=== PATIENT | male | born 1950 | race Caucasian/White ===

== ENCOUNTER 2022-12-15 07:44 | Outpatient (OUT) | payer MEDICARE, SELFPAY ==
[2022-12-15 08:29] LABS: Hematocrit 44.8 % (42.0-54.0); Mean Corpuscular HGB Conc 33.5 g/dL (29.9-35.2); Mean Corpuscular Hemoglobin 30.2 pg (25.9-34.0); Mean Corpuscular Volume 90.1 fL (80.0-94.0); Mean Platelet Volume 9.1 fL (9.5-13.5); Platelet Count 170 10^3/uL (150-450); Red Blood Count 4.97 10^6/uL (4.70-6.10); Red Cell Distribution Width 14.5 % (11.0-15.0); White Blood Count 5.1 10^3/uL (4.0-11.0)
[2022-12-15 09:09] LABS: Alanine Aminotransferase 19 U/L (16-63); Albumin Globulin Ratio 1.5; Albumin Level 3.7 g/dL (3.4-5.0); Alkaline Phosphatase 65 U/L (46-116); Anion Gap 11.7; Aspartate Amino Transferase 12 U/L (15-37); BUN Creatinine Ratio 16.7; Bilirubin Total 0.5 mg/dL (0.2-1.0); Calcium 8.9 mg/dL (8.5-10.1); Carbon Dioxide 26.1 mmol/L (21.0-32.0); Chloride 109 mmol/L (98-107); Estimated GFR (African America >60 (>=60); Estimated GFR (Non-African Ame >60 (>=60); Gamma Glutamyl Transpeptidase 26 U/L (15-85); Globulin 2.4 g/dL; Glucose 101 mg/dL (74-106); Magnesium 1.6 mg/dL (1.8-2.4); Phosphorus 3.4 mg/dL (2.6-4.7); Potassium 3.8 mmol/L (3.5-5.1); Sodium 143 mmol/L (136-145); Total Protein 6.1 g/dL (6.4-8.2)
[2022-12-15 10:20] LABS: Eosinophils Absolute Manual 0.25 10^3/uL (0.00-0.70); Lymphocytes Absolute Manual 0.56 10^3/uL (1.20-3.80); Monocytes Absolute Manual 0.35 10^3/uL (0.30-0.80); Segmented Neut Absolute Manual 3.92 10^3/uL (1.4-6.5)
[2022-12-15 17:48] LABS: BOX Test Sent Out Y
== END 2022-12-15 07:45 | disposition home or self-care (01) ==
PROVIDERS: PCP Family Medicine
DX: Z94.4 Liver transplant status (principal); Z79.621 Long term (current) use of calcineurin inhibitor; K76.9 Liver disease, unspecified; Z48.23 Encounter for aftercare following liver transplant; Z41.8 Encounter for other procedures for purposes other than remedying health state; E61.2 Magnesium deficiency; E83.30 Disorder of phosphorus metabolism, unspecified; R73.02 Impaired glucose tolerance (oral); Z51.81 Encounter for therapeutic drug level monitoring
CPT/HCPCS: 36415; 80053; 82977; 83735; 84100; 85007; 85025

== ENCOUNTER 2023-02-18 07:03 | Outpatient (OUT) | payer MEDICARE, SELFPAY ==
[2023-02-18 08:54] LABS: Prostate Specific Antigen Dx 30.56 ng/mL (<=4.00)
== END 2023-02-18 07:04 | disposition home or self-care (01) ==
LOC: LAB 07:05
PROVIDERS: PCP Family Medicine; Visit Provider Urology
DX: R97.20 Elevated prostate specific antigen [PSA] (principal); D07.5 Carcinoma in situ of prostate
CPT/HCPCS: 36415; 84153

== ENCOUNTER 2023-02-18 07:07 | Outpatient (OUT) | payer MEDICARE, SELFPAY ==
[2023-02-18 07:52] LABS: Basophils Absolute Auto 0.1 10^3/uL (0.0-0.1); Eosinophils Absolute Auto 0.2 10^3/uL (0.0-0.7); Eosinophils Percent Auto 4.4 % (0.9-7.0); Hematocrit 44.8 % (42.0-54.0); Hemoglobin 14.9 g/dL (14.0-18.0); Immature Granulocytes Abs Auto 0.01 10^3/uL (0.00-0.03); Immature Granulocytes Pct Auto 0.2 % (0.0-0.5); Lymphocytes Absolute Auto 0.7 10^3/uL (1.2-3.8); Lymphocytes Percent Auto 13.1 % (20.5-60.0); Mean Corpuscular HGB Conc 33.3 g/dL (29.9-35.2); Mean Corpuscular Hemoglobin 29.8 pg (25.9-34.0); Mean Corpuscular Volume 89.6 fL (80.0-94.0); Mean Platelet Volume 9.5 fL (9.5-13.5); Monocytes Absolute Auto 0.3 10^3/uL (0.3-0.8); Monocytes Percent Auto 6.7 % (1.7-12.0); Neutrophils Absolute Auto 3.7 10^3/uL (1.4-6.5); Neutrophils Percent Auto 74.6 % (43.0-75.0); Platelet Count 178 10^3/uL (150-450)
[2023-02-18 08:44] LABS: Alanine Aminotransferase 22 U/L (16-63); Albumin Globulin Ratio 1.5; Albumin Level 3.8 g/dL (3.4-5.0); Alkaline Phosphatase 65 U/L (46-116); Anion Gap 9.7; Aspartate Amino Transferase 14 U/L (15-37); BUN Creatinine Ratio 20.3; Bilirubin Total 0.6 mg/dL (0.2-1.0); Carbon Dioxide 27.2 mmol/L (21.0-32.0); Chloride 107 mmol/L (98-107); Chol HDL Ratio 3.7; Cholesterol 178 mg/dL (<=200); Estimated GFR (African America >60 (>=60); Estimated GFR (Non-African Ame >60 (>=60); Gamma Glutamyl Transpeptidase 28 U/L (15-85); Globulin 2.6 g/dL; Glucose 93 mg/dL (74-106); HDL Cholesterol 48 mg/dL (40-60); LDL Cholesterol Calculated 119.6 mg/dL; Magnesium 1.7 mg/dL (1.8-2.4); Phosphorus 3.4 mg/dL (2.6-4.7); Potassium 3.9 mmol/L (3.5-5.1); Sodium 140 mmol/L (136-145); Total Protein 6.4 g/dL (6.4-8.2); Triglycerides 52 mg/dL (<=150); VLDL CHOLESTEROL 10.4 mg/dL
== END 2023-02-18 07:08 | disposition home or self-care (01) ==
LOC: LAB 07:09
PROVIDERS: PCP Family Medicine
DX: R97.20 Elevated prostate specific antigen [PSA] (principal); D07.5 Carcinoma in situ of prostate; K76.9 Liver disease, unspecified; Z48.23 Encounter for aftercare following liver transplant; Z94.4 Liver transplant status; Z41.8 Encounter for other procedures for purposes other than remedying health state; E61.2 Magnesium deficiency; E83.30 Disorder of phosphorus metabolism, unspecified
CPT/HCPCS: 36415; 80053; 80061; 82977; 83735; 84100; 84153; 85025

== ENCOUNTER 2023-04-20 08:11 | Outpatient (OUT) | payer MEDICARE, SELFPAY ==
[2023-04-20 08:51] LABS: Basophils Absolute Auto 0.1 10^3/uL (0.0-0.1); Basophils Percent Auto 1.3 % (0.2-2.0); Eosinophils Absolute Auto 0.4 10^3/uL (0.0-0.7); Eosinophils Percent Auto 5.8 % (0.9-7.0); Hematocrit 45.7 % (42.0-54.0); Hemoglobin 15.2 g/dL (14.0-18.0); Immature Granulocytes Abs Auto 0.02 10^3/uL (0.00-0.03); Immature Granulocytes Pct Auto 0.3 % (0.0-0.5); Lymphocytes Absolute Auto 0.6 10^3/uL (1.2-3.8); Lymphocytes Percent Auto 10.2 % (20.5-60.0); Mean Corpuscular HGB Conc 33.3 g/dL (29.9-35.2); Mean Corpuscular Hemoglobin 30.2 pg (25.9-34.0); Mean Corpuscular Volume 90.9 fL (80.0-94.0); Mean Platelet Volume 9.4 fL (9.5-13.5); Monocytes Absolute Auto 0.4 10^3/uL (0.3-0.8); Monocytes Percent Auto 5.8 % (1.7-12.0); Neutrophils Absolute Auto 4.7 10^3/uL (1.4-6.5); Neutrophils Percent Auto 76.6 % (43.0-75.0); Platelet Count 172 10^3/uL (150-450); Red Blood Count 5.03 10^6/uL (4.70-6.10); White Blood Count 6.2 10^3/uL (4.0-11.0)
[2023-04-20 09:44] LABS: Alanine Aminotransferase 20 U/L (16-63); Albumin Globulin Ratio 1.5; Albumin Level 3.7 g/dL (3.4-5.0); Alkaline Phosphatase 71 U/L (46-116); Aspartate Amino Transferase 11 U/L (15-37); BUN Creatinine Ratio 23.1; Bilirubin Total 0.5 mg/dL (0.2-1.0); Calcium 8.8 mg/dL (8.5-10.1); Carbon Dioxide 28.3 mmol/L (21.0-32.0); Chloride 109 mmol/L (98-107); Estimated GFR (African America >60 (>=60); Estimated GFR (Non-African Ame >60 (>=60); Globulin 2.4 g/dL; Glucose 93 mg/dL (74-106); Phosphorus 3.7 mg/dL (2.6-4.7); Potassium 4.3 mmol/L (3.5-5.1); Sodium 144 mmol/L (136-145); Total Protein 6.1 g/dL (6.4-8.2)
== END 2023-04-20 08:12 | disposition home or self-care (01) ==
LOC: LAB 08:17
PROVIDERS: PCP Family Medicine
DX: K76.9 Liver disease, unspecified (principal); Z48.23 Encounter for aftercare following liver transplant; Z94.4 Liver transplant status; Z41.8 Encounter for other procedures for purposes other than remedying health state; E83.30 Disorder of phosphorus metabolism, unspecified; R73.02 Impaired glucose tolerance (oral)
CPT/HCPCS: 36415; 80053; 84100; 85025

== ENCOUNTER 2023-06-16 07:55 | Outpatient (OUT) | payer MEDICARE, SELFPAY ==
--- OUTSIDE RECORDS SUMMARY | 2023-06-16 08:06 | XMS_ITS | CCD ---
Author Name Unknown Address [address] [place] [address] Organization [facility] Care Team Providers Care Director Of Personnel Name Role Phone SHEA BRANNON Unavailable Unavailable BUNTINGELVIRA Unavailable Unavailable Unavailable Unavailable Ruddyting Elvira VASQUEZ Primary Care Provider Yulisa Lewis RN Unavailable Unavailable BUNTINGLLOYDELVIRA R Primary Care Physician BuntingLloydElvira R Unavailable Bunting, DO Felix Primary Care Provider [phone] MD Shea Brannon Attending Provider Bunting Elvira VASQUEZ Primary Care Provider Yulisa Lewis RN Unavailable Unavailable Bunting, DO Elvira Primary Care Provider MD Sugey Arteaga Attending Provider MISC, DOCTOR Consulting Unavailable BUNTING, DR FELIX Primary Care Unavailable MISC, DOCTOR Admitting Unavailable MISC, DOCTOR Attending Unavailable BUNTING, DR FELIX Referring Unavailable MISC, DOCTOR Admitting Unavailable MISC, DOCTOR Consulting Unavailable MISC, DOCTOR Attending Unavailable BUNTING, DR FELIX Primary Care Unavailable BUNTING, DR FELIX Primary Care Unavailable MISC, DOCTOR Admitting Unavailable MISC, DOCTOR Consulting Unavailable MISC, DOCTOR Attending Unavailable BUNTING, DR FELIX Primary Care Unavailable MISC, DOCTOR Consulting Unavailable MISC, DOCTOR Admitting Unavailable MISC, DOCTOR Attending Unavailable MISC, DOCTOR Consulting Unavailable MISC, DOCTOR Admitting Unavailable MISC, DOCTOR Attending Unavailable BUNTING, DR FELIX Primary Care Unavailable LONG June, DR MIKE Cox Consulting Unavaila ble ALVES JR ., DR MIKE Cox Attending Unavaila ble ALVES JR ., DR MIKE Cox Admitting Unavaila ble BUNTING, DR FELIX Primary Care Unavailable BUNTING, DR FELIX Primary Care Unavailable MISC, DOCTOR Consulting Unavailable MISC, DOCTOR Attending Unavailable MISC, DOCTOR Admitting Unavailable BUNTING, DR FELIX Primary Care Unavailable MISC, DOCTOR Attending Unavailable MISC, DOCTOR Admitting Unavailable MISC, DOCTOR Consulting Unavailable BUNTING, DR FELIX Primary Care Unavailable MISC, DOCTOR Consulting Unavailable MISC, DOCTOR Attending Unavailable MISC, DOCTOR Admitting Unavailable MISC, DOCTOR Admitting Unavailable MISC, DOCTOR Consulting Unavailable MISC, DOCTOR Attending Unavailable BUNTING, DR FELIX Primary Care Unavailable BUNTING, DR FELIX Primary Care Unavailable LONG FARLEY ., DR MIKE Cox Admitting Unavaila ble ALVES JR ., DR MIKE Cox Consulting Unavaila ble ALVES JR ., DR MIKE Cox Attending Unavaila ble BUNTING, DR FELIX Primary Care Unavailable MISC, DOCTOR Consulting Unavailable MISC, DOCTOR Attending Unavailable MISC, DOCTOR Admitting Unavailable BUNTING, DR FELIX Primary Care Unavailable YVONNE, VINICIUS Consulting Unavailable YVONNE, VINICIUS Attending Unavailable YVONNE, VINICIUS Admitting Unavailable BUNTING, DR FELIX Primary Care Unavailable LONG JR ., DR MIKE Cox Admitting Unavaila ble ALVES JR ., DR MIKE Cox Attending Unavaila ble WEST, DR SUSAN Ford Consulting Unavailable ALVES JR ., DR MIKE Cox Consulting Unavaila ble AGUBOSIM, COSME Consulting Unavailable PREETI, KYMBERLY Consulting Unavailable BUNTING, DR FELIX Primary Care Unavailable PAY ., DR GUPTA Consulting Unavailable PAY ., DR GUPTA Attending Unavailable PAY ., DR GUPTA Admitting Unavailable BUNTING, DR FELIX Primary Care Unavailable ALVES JR ., DR MIKE Cox Admitting Unavaila ble ALVES JR ., DR MIKE Cox Consulting Unavaila ble ALVES JR ., DR MIKE Cox Attending Unavaila ble BUNTING, DR FELIX Primary Care Unavailable MISC, DOCTOR Consulting Unavailable MISC, DOCTOR Attending Unavailable MISC, DOCTOR Admitting Unavailable MD Branden Woodward Attending Provider MD Sheila Magallanes Attending Provider Sheila Magallanes Unavailable Bunmaggie, Dr. Elvira Maurer Primary Care Unavaila ble Bunting, Dr. Elvira Maurer Primary Care Unavaila ble Bunting, Dr. Elvira Maurer Primary Care Unavaila ble Traboulssi, Dr. Marvin Referring Unavaila ble Traboulssi, Dr. Marvin Attending Unavaila ble Bunting, Dr. Elvira Maurer Primary Care Unavaila ble Bunting, Dr. Elvira Maurer Primary Care Unavaila ble Bunting, DO Elvira Primary Care Provider MD Sugey Arteaga Attending Provider Bunting DO, Elvira Maurer Primary Care Provider [phone] SHEA BRANNON Attending Unavailable BUNTING, ELVIRA RAY Primary Care Unavailable Bunting, DO Elvira Primary Care Provider MD Branden Woodward Attending Provider Bunting, Elvira Primary Care Unavailable Asaad, Imad Admitting Unavailable Asaad, Imad Attending Unavailable Bunting, [facility] Primary Care Unavailable Branden Woodward Admitting Unavail able Branden Woodward Attending Unavail able Bunting, [facility] Primary Care Unavailable Lue, Sugey M Admitting Unavailable Lue, Sugey M Attending Unavailable Bunting, Elvira Primary Care Unavailable Branden Woodward Admitting Unavail able Branden Woodward Attending Unavail able Asaad, Imad Attending Unavailable Bunting, Elvira Primary Care Unavailable Asaad, Imad Admitting Unavailable Lue, Sugey M Admitting Unavailable Bunting, Elvira Primary Care Unavailable Lue, Sugey M Attending Unavailable Bunting, Elvira Primary Care Unavailable Asaad, Imad Admitting Unavailable Asaad, Imad Attending Unavailable Lue, Sugey M. Attending Unavailable Lue, Sugey M. Attending Unavailable Lue, Sugey M. Attending Unavailable Lue, Sugey M. Referring Unavailable Lue, Sugey M. Attending Unavailable Lue, Sugey M. Attending Unavailable Lue, Sugey M. Attending Unavailable Lue, Sugey M. Admitting Unavailable Lue, Sugey M. Referring Unavailable Kevin DE LA GARZA Attending Unavailable Allergies Allergy Classification Reported Allergen(s) Allergy Type Date of Onset Reaction(s) Facility (1 source) No Known Medication Allergies; Translations: [No Known Medication Allergies] Propensity to adverse reactions (disorder) [facility] Repository Medications Current Medications Medication Drug Class(es) Dates Sig (Normalized) Sig (Original) amylase 636610 unt / lipase 85469 unt / protease 84323 unt delayed release oral capsule (3 sources) Start: 11-12-2022 Creon [id number] UNIT as directed Orally 5 TIMES DAILY (ALLOW FOR 3 MEALS AND 2 SNACKS. for 30 days October, Active ascorbic acid 1000 mg oral tablet (6 sources) Vitamin C Start: 12-11-2022 take 1 g by mouth once daily Ascorbic Acid (Vitamin C) (Vitamin C) 1,000 mg Tablet Active 1 GM PO Daily December 10, 2022 11:00pm aspirin 81 mg delayed release oral tablet (12 sources) Platelet Aggregation Inhibitor, Nonsteroidal Anti-inflammatory Drug Start: 01-07-2022 take 81 mg by mouth once daily Aspirin Active 81 MG PO Daily December 10, 2022 11:00pm Start: 05-24-2020 aspirin 81 mg oral tablet Refills(s) 0 Start Date: 05/24/20 Status: Ordered take 1 tablet by elsy th once daily Baby Aspirin 81 MG 1 tablet Orally Once a day Active Black Elderberry (3 sources) Start: 12-11-2022 take 2000 mg by mout h once daily Black Elderberry Active 2000 MG PO Daily December 10, 2022 11:00pm Start: 12-11-2022 take 2000 mg by mout h once daily Black Elderberry Active 2000 MG PO Daily December 11, 2022 12:00am Black Elderberry Active cholecalciferol 0.025 mg chewable tablet (6 sources) Vitamin D Start: 12-11-2022 take 1 tablet by mouth once daily Cholecalciferol (Vitamin D3) (Vitamin D3) 25 mcg (1,000 unit) Tablet,Chewable Active 25 MCG PO Daily December 10, 2022 11:00pm take 1 capsule by mouth once norman ly cholecalciferol (Vitamin D-3) 125 MCG (5000 UT) capsule Take 1 capsule (5,000 Units) by mouth once daily. 0 Active elderberry fruit and flower 460-115 mg capsule (1 source) take 1 capsule by mouth once daily elderberry fruit and flower 460-115 mg capsule Take 2,000 mg by mouth once daily. 0 Active Elderberry preparation (1 source) Start: 12-13-202 3 take 1 mg by mouth once daily elderberry mg, Oral, Daily, Refill(s) 0 Start Date: 05/27/23 Status: Ordered finasteride 5 mg oral tablet (2 sources) 5-alpha Reductase Inhibitor Start: 3 take 1 tablet by mouth once daily finasteride 5 mg Tab 5 mg = 1 tab(s), Oral, Daily, # 30 tab(s), Refills(s) 11, Pharmacy: [facility]/pharmacy #[id number], 178, cm, 05/27/23 9:52:00 EST, Height/Length Dosing, 80, kg, 05/27/23 9:52:00 EST, Weight Dosing Start Date: 05/27/23 Status: Ordered Start: 02-25-2023 take 1 tablet by elsy th once daily finasteride 5 mg Tab 5 mg = 1 tab(s), Oral, Daily, # 30 tab(s), Refills(s) 11, Pharmacy: [facility]/pharmacy #[id number], 178, cm, 02/25/23 9:11:00 EDT, Height/Length Dosing, 80, kg, 02/25/23 9:11:00 EDT, Weight Dosing Start Date: 02/25/23 Status: Ordered metoprolol tartrate 25 mg oral tablet (20 sources) beta-Adrenergic Sebas Start: 03-24-2017 End: 04-13-2018 take 25 mg by mouth once daily Metoprolol Tartrate Discontinued 25 MG PO Daily March 23, 2017 11:00pm April 13, 2018 3:18pm Start: 02-07-2015 End: 05-10-2019 take 25 mg by mouth twice daily Metoprolol Tartrate Ac tive 25 MG PO Twice daily December 10, 2022 11:00pm take 1 tablet by elsy th twice daily Metoprolol Succinate ER 25 MG 1 tablet Orally TWICE A D AY Active Comment on above: Take 1 tablet by elsy th twice daily. [facility] Prescription (7 sources) Start: 9 [facility] Prescription Septra 1 tablet by mouth MWF Start Date: 04/19/19 Status: Ordered omeprazole 40 mg delayed release oral capsule (3 sources) Proton Pump Inhibitor Start: 3 take 40 mg by mouth once daily Omeprazole Active 40 MG PO Daily 90 December 10, 2022 11:00pm Oxybutinin XL 5mg (4 sources) Oxybutinin XL 5m g Active oxybutynin chloride 5 mg oral tablet (12 sources) Cholinergic Muscarinic Antagonist Start: 3 take 1 tablet by mouth at bedtime oxybutynin 5 mg Tab 5 mg = 1 tab(s), Oral, Bedtime, # 30 tab(s), Refills(s) 11, Pharmacy: [facility]/pharmacy #[id number], 178, cm, 02/25/23 9:11:00 EDT, Height/Length Dosing, 80, kg, 02/25/23 9:11:00 EDT, Weight Dosing Start Date: 02/25/23 Status: Ordered Start: 02-26-2022 take 1 tablet by elsy th at bedtime oxybutynin 5 mg Tab 5 mg = 1 tab(s), Oral, Bedtime, # 30 tab(s), Refills(s) 11, Pharmacy: [facility]/pharmacy #[id number], 185, cm, 02/26/22 15:00:00 EDT, Height/Length Dosing, 99, kg, 02/26/22 15:00:00 EDT, Weight Dosing Start Date: 02/26/22 Status: Ordered take 1 tablet by elsy th once daily at bedtime oxybutynin XL (Ditropan-XL) 5 mg 24 hr tablet Take 1 tablet (5 mg) by mouth once daily at bedtime. 0 Active take 1 tablet by elsy th at bedtime Oxybutynin Chloride ER 5 MG Oral Tablet Extended Release 24 Hour TAKE 1 TABLET Bedtime Quantity: 0 Refills: 0 Ordered: 27-Mar-2022 DO Active Sulfamethoxazole-TMP DS (4 sources) Sulfamethoxazole -TMP DS Active tacrolimus 1 mg oral capsule (20 sources) Calcineurin Inhibitor Immunosuppressant Start : 03-24 End: 11-08 take 1 mg by mouth twice daily tacrolimus 1 mg, Oral, BID, Refills(s) 0 Start Date: 04/18/19 Status: Ordered Start: 03-24-2017 End: 04-13-2018 Tacrolimus Discontinued 2017 11:00pm April 13, 2018 7:46pm Comment on above: Take 2 capsules by out twice daily. (Z94.4 - liver transplant) TAKE 2 CAPSUES BY [facility] TWICE DAILY tadalafil 5 mg oral tablet (2 sources) Phosphodiesterase 5 Inhibitor Start: 09-11-19 take 1 tablet by mouth once daily tadalafil 5 mg oral tablet 5 mg = 1 tab(s), Oral, Daily, # 30 tab(s), Refills(s) 11, Pharmacy: [facility]/pharmacy #[id number], 185, cm, 09/10/22 9:37:00 EDT, Height/Length Dosing, 99, kg, 09/10/22 9:37:00 EDT, Weight Dosing Start Date: 09/10/22 Status: Ordered tamsulosin hydrochloride 0.4 mg oral capsule (1 source) alpha-Adrenergic Sebas take 1 capsule by mouth twice daily tamsulosin (Flomax) 0.4 mg 24 hr capsule Take 1 capsule (0.4 mg) by mouth 2 times a day. 0 Active terazosin 5 mg oral capsule (10 sources) alpha-Adrenergic Sebas Start: 06-21-19 terazosin 5 mg Cap Refills(s) 0 Start Date: 02/25/23 Status: Ordered Terazosin HCl Ac tive Vitamin D3 (1 source) Start: 05-27-2023 Vitamin D3 Ref ills(s) 0 Start Date: 05/27/23 Status: Ordered Vitamin D3 25 MCG (1000 UT) (1 source) take 1 capsule by mouth once daily Vitamin D3 25 MCG (1000 UT) 1 capsule Orally Once a day Active Zenpep 85505 UNIT (1 source) Start: 01-01-2023 Zenpep 98291 U NIT 1 WITH EACH MEAL & 1 WITH UP TO 2 SNACKS Orally 5 TIMES A DAY for 30 days Dec, Active Zinc (3 sources) Start: 05-27-2023 take 1 mg by mouth once daily Zinc mg, Oral, Daily, Refills(s) 0 Start Date: 05/27/23 Status: Ordered Start: 12-11-2022 take 50 mg by mouth once daily Zinc Active 50 MG PO Daily December 10, 2022 11:00pm Start: 12-11-2022 take 50 mg by mouth once daily Zinc Active 50 MG PO Daily December 11, 2022 12:00am zinc gluconate 50 mg oral tablet (5 sources) take 1 tablet by elsy th once daily zinc gluconate 50 mg tablet Take 1 tablet (50 mg) by mouth once daily. 0 Active Completed/Discontinued Medications Medication Drug Class(es) Dates Sig (Normalized) Sig (Original) acetaminophen 325 mg oral tablet (5 sources) Start: 04-15-2018 End: 12-11-2022 take 650 mg by mouth every six hours Acetaminophen Discontinued 650 MG PO Q6H 30 April 14, 2018 11:00pm December 11, 2022 10:33am amLODIPine 5 mg oral tablet (20 sources) Dihydropyridine Calcium Channel Sebas Start: 02-18-2017 End: 12-11-2022 Amlodipine Discontinued TABLET April 12, 2018 11:00pm April 13, 2018 7:46pm Comment on above: Take 1 tablet by elsy th once daily. Black Elderberry(Garcia-Flow er) CAPS (3 sources) Black Elderberry(Garcia- Flower) CAPS 2000 mg daily Quantity: 0 Refills: 0 Ordered: 27-Mar-2022 DO Active polyethylene glycol 3350 [id number] mg / potassium chloride 2970 mg / sodium bicarbonate 6740 mg / sodium chloride 5860 mg / sodium sulfate 05127 mg powder for oral solution (4 sources) Osmotic Laxative Start: 11-05-2022 take 236 g by mouth once Golytely 236 GM as directed Orally once for 1 days October, Not-Taking sulfamethoxazole 800 mg / trimethoprim 160 mg oral tablet (13 sources) Dihydrofolate Reductase Inhibitor Antibacterial, Sulfonamide Antimicrobial Start: 09-10-2020 End: 09-04-2022 take 1 tablet by mouth once daily sulfamethoxazole- trimethoprim (BACTRIM DS) 800-160 mg per tablet Indications: Liver replaced by transplant (HCC) TAKE ONE TABLET BY MOUTH DAILY ON MONDAYS, WEDNESDAYS AND FRIDAYS 39 tablet 3 09/04/2022 Active Start: 04-13-2018 take 1 tablet by elsy th once Sulfamethoxazole-Trimethoprim Active 1 T AB PO every Thursday, Thursday, and Thursday April 12, 2018 11:00pm Comment on above: TAKE ONE TABLET BY M OUTH DAILY ON MONDAYS, WEDNESDAYS AND FRIDAYS Sulfamethoxazole- TMP DS TABS (3 sources) Sulfamethoxazole -TMP DS TABS TAKE 1 TABLET DAILY ON THURSDAY, THURSDAY, AND THURSDAY. Quantity: 0 Refills: 0 Ordered: 27-Mar-2022 DO Active Trimethoprim-Sulf amethoxazole (5 sources) Start: 03-24-2017 End: 04-13-2018 take 1 tablet by mouth three times weekly Trimethoprim-Sulfameth oxazole Discontinued 1 TAB PO 3 Times a week March 24, 2017 12:00am April 13, 2018 8:46pm Start: 03-24-2017 End: 04-13-2018 take 1 tablet by mouth three times weekly Trimethoprim-Sulfamethoxazole Discontinu ed 1 TAB PO 3 Times a week March 23, 2017 11:00pm April 13, 2018 7:46pm Problems Active Problems Problem Classification Problem Date Documented Da te Episodic/Chronic Biliary tract disease (5 sources) Leakage of bile; Translations: [Disease of biliary tract, unspecified] Onset: 02-07-2015 06-10-2021 Chronic Cancer of prostate (9 sources) Carcinoma in situ of prostate; Translations: [Carcinoma in situ of prostate] Onset: 12-24-2021 Chronic Cardiac arrest and ventricular fibrillation (5 sources) EKG: asystole; Translations: [Cardiac arrest, cause unspecified] 04-14-2018 Chronic Cardiac dysrhythmias (14 sources) Sick sinus syndrome; Translations: [Sinoatrial node dysfunction] Onset: 04-09-2023 04-14-2018 Chronic Conduction disorders (10 sources) Cardiac pacemaker in situ; Translations: [Cardiac pacemaker in situ] Onset: 01-27-2022 04-10-2023 Chronic Coronary atherosclerosis and other heart disease (1 source) Coronary atherosclerosis and other heart disease Onset: 03-26-2017 Diabetes mellitus without complication (1 source) Impaired glucose tolerance (oral); Translations: [IMPAIRED GLUCOSE TOLERANCE ORAL] Onset: 10-23-2022 Episodic Disorders of lipid metabolism (17 sources) Hyperlipidemia; Translations: [Other and unspecified hyperlipidemia] Onset: 01-27-2022 12-21-2018 Chronic Essential hypertension (16 sources) Essential (primary) hypertension; Translations: [Essential hypertension] Onset: 03-26-2017 04-14-2018 Chronic Essential hypertension (2 sources) Essential hypertension Onset: 03-26-2017 Genitourinary symptoms and ill-defined conditions (20 sources) Microscopic hematuria; Translations: [Nocturia] Onset: 01-27-2022 12-21-2018 Episodic Hepatitis (11 sources) Viral hepatitis C; Translations: [Unspecified viral hepatitis C without hepatic coma] 12-21-2018 Episodic Hyperplasia of prostate (15 sources) Benign prostatic hypertrophy with outflow obstruction; Translations: [Benign prostatic hyperplasia with lower urinary tract symptoms] Onset: 12-24-2021 Chronic Nutritional deficiencies (1 source) Magnesium deficiency; Translations: [MAGNESIUM DEFICIENCY] Onset: 10-23-2022 Episodic Osteoporosis (5 sources) Primary osteoporosis; Translations: [Age-related osteoporosis without current pathological fracture] Onset: 01-15-2023 Chronic Other aftercare (1 source) Encounter for aftercare following liver transplant; Translations: [ENC AFTERCARE FLW LIVER TRANSPLANT] Onset: 10-23-2022 Chronic Other aftercare (7 sources) Long-term current use of anticoagulant 11-24-2019 Episodic Other aftercare (1 source) senior living (current) use of aspirin; Translations: [EXHIBITS COORDINATOR CURRENT USE OF ASPIRIN] Onset: 09-29-2022 Episodic Other aftercare (1 source) Other oil heaterman (current) drug therapy; Translations: [OTH SKILLED NURSING CURRENT DRUG THERAPY] Onset: 09-29-2022 Episodic Other diseases of bladder and urethra (4 sources) Other specified disorders of bladder; Translations: [OTHER SPECIFIED DISORDERS BLADDER] Onset: 09-26-2022 Chronic Other diseases of kidney and ureters (2 sources) Urinary tract obstruction; Translations: [Other obstructive and reflux uropathy] Onset: 12-24-2021 Episodic Other diseases of veins and lymphatics (5 sources) Peripheral venous insufficiency; Translations: [Venous insufficiency (chronic) (peripheral)] 04-14-2018 Episodic Other endocrine disorders (7 sources) Male hypogonadism 12-21-2018 Chronic Other gastrointestinal disorders (4 sources) Dysphagia; Translations: [Other dysphagia] Episodic Other gastrointestinal disorders (4 sources) Altered bowel function; Translations: [Change in bowel habit] Episodic Other gastrointestinal disorders (1 source) Other dysphagia Episodic Other liver diseases (5 sources) Liver disease, unspecified; Translations: [LIVER DISEASE UNSPECIFIED] Onset: 08-22-2022 Chronic Other liver diseases (7 sources) Liver transplant status; Translations: [LIVER TRANSPLANT STATUS] Onset: 10-23-2022 Chronic Other male genital disorders (9 sources) Male erectile dysfunction, unspecified; Translations: [Erectile dysfunction] Onset: 09-10-2022 Chronic Other male genital disorders (7 sources) Prostatic pain 11-24-2019 Episodic Other nutritional; endocrine; and metabolic disorders (8 sources) Body mass index 30+ - obesity; Translations: [Body Mass Index 31.0-31.9, adult] Chronic Other nutritional; endocrine; and metabolic disorders (1 source) Disorder of phosphorus metabolism, unspecified; Translations: [DISORDER PHOSPHORUS METABOLISM UNS] Onset: 10-23-2022 Chronic Other nutritional; endocrine; and metabolic disorders (7 sources) Overweight in adulthood with body mass index of 25 or more but less than 30; Translations: [Body Mass Index 29.0-29.9, adult] Onset: 04-09-2023 04-10-2023 Episodic Other nutritional; endocrine; and metabolic disorders (3 sources) Overweight; Translations: [Overweight] Onset: 04-10-2023 Episodic Other nutritional; endocrine; and metabolic disorders (4 sources) Weight loss; Translations: [Abnormal weight loss] Episodic Other nutritional; endocrine; and metabolic disorders (1 source) Overweight; Translations: [Overweight] Onset: 04-09-2023 Episodic Other nutritional; endocrine; and metabolic disorders (2 sources) Body mass index (BMI) 26.0-26.9, adult; Translations: [Body mass index (BMI) 26.0-26.9, adult] Onset: 04-09-2023 Episodic Other screening for suspected conditions (not mental disorders or infectious disease) (19 sources) Raised prostate specific antigen; Translations: [Elevated prostate specific antigen [PSA]] Onset: 12-24-2021 Episodic Residual codes; unclassified (1 source) Encounter for other procedures for purposes other than remedying health state; Translations: [ENC OTH PROC NOT REMEDY HLTH STATE] Onset: 10-23-2022 Episodic Screening and history of mental health and substance abuse codes (11 sources) Ex-smoker; Translations: [Personal history of tobacco use] Onset: 01-27-2022 06-12-2020 Episodic Comment on above: quit around ; Unclassified (1 source) Shortness of breath / R06.02(ICD-9) Onset: 03-26-2017 Unclassified (1 source) Family hx of ischem heart dis and oth dis of the circ sys / Z82.49(ICD-9) Onset: 03-26-2017 Unclassified (1 source) Personal history of nicotine dependence / Z87.891(ICD-9) Onset: 03-26-2017 Unclassified (1 source) Obesity, unspecified / E66.9(ICD-9) Onset: 03-26-2017 Unclassified (1 source) Unspecified viral hepatitis C without hepatic coma / B19.20(ICD-9) Onset: 03-26-2017 Unclassified (1 source) Liver transplant status / Z94.4(ICD-9) Onset: 03-26-2017 Unclassified (5 sources) SUMMARY Onset: 08-14-2012 Unclassified (5 sources) Finding of sensation of bladder 09-10-2022 Unclassified (1 source) CONTACT W/AND (SUSP) EXPOS COVID-19; Translations: [CONTACT W/AND (SUSP) EXPOS COVID-19] Onset: 01-22-2022 Unclassified (1 source) Encounter for checking and testing of cardiac pacemaker pulse generator [battery]; Translations: [Encounter for checking and testing of cardiac pacemaker pulse generator [battery]] Onset: 05-04-2023 Unclassified (1 source) Diarrhea, unspecified; Translations: [Diarrhea, unspecified] Onset: 12-11-2022 Urinary tract infections (1 source) Urinary tract infection, site not specified; Translations: [UTI SITE NOT SPECIFIED] Onset: 09-29-2022 Episodic Past or Other Problems Problem Classification Problem Date Documented Da te Episodic/Chronic Abdominal hernia (5 sources) Inguinal hernia; Translations: [Unilateral inguinal hernia, without obstruction or gangrene, not specified as recurrent] Onset: 02-02-2008 02-02-2008 Episodic Cancer of liver and intrahepatic bile duct (5 sources) History of hepatocellular carcinoma; Translations: [Personal history of malignant neoplasm of liver] Onset: 02-18-2017 02-18-2017 Episodic Complication of device; implant or graft (5 sources) Biliary stricture; Translations: [Other complications of liver transplant] Onset: 02-07-2015 02-07-2015 Episodic Neoplasms of unspecified nature or uncertain behavior (5 sources) Neoplasm of pancreas; Translations: [Neoplasm of unspecified behavior of digestive system] Onset: 11-10-2012 11-10-2012 Episodic Other aftercare (1 source) senior living (current) use of anticoagulants; Translations: [SKILLED NURSING CURRNT USE ANTICOAGULANTS] Onset: 01-27-2022 Episodic Other and unspecified benign neoplasm (9 sources) History of polyp of colon; Translations: [Personal history of colonic polyps] Onset: 02-18-2017 02-18-2017 Episodic Other gastrointestinal disorders (2 sources) Change in bowel habit; Translations: [Change in bowel habit] Onset: 11-06-2022 Episodic Other gastrointestinal disorders (1 source) Dysphagia, unspecified; Translations: [Dysphagia, unspecified] Onset: 12-11-2022 Episodic Other infections; including parasitic (5 sources) History of hepatitis C; Translations: [Personal history of other infectious and parasitic diseases] Onset: 02-18-2017 02-18-2017 Episodic Residual codes; unclassified (6 sources) Prevention status; Translations: [Encounter for other specified prophylactic measures] Onset: 02-07-2015 02-07-2015 Episodic Syncope (6 sources) Cardiac syncope; Translations: [Syncope and collapse] Onset: 11-11-2022 04-14-2018 Episodic Unclassified (1 source) Onset: 04-10-2023 04-10-2023 Results Test Name Value Interpretation Reference Range Facility Screenson 05-29-2023 Screens [id number] 05 [id number] 0TIFF Normal [facility] Screens [id number] 0TIFF Normal [facility] Ambulatory Visit Summaryon 1 07-28-2022 Ambulatory Visit Summary GEORGESUSAN Kenny :1950 Visit Date:05/27/2023 Ambulatory Visit Instructions Your Diagnosis BPH with urinary obstruction Elevated PSA Feeling of incomplete bladder emptying ED (erectile dysfunction) Other obstructive and reflux uropathy Tests Performed Urnls Dip Stick Auto w/o Microscopy POC 52169 Your Care Team Attending Physician - Chandler CHAVEZ, Sugey Cummins Primary Care Physician - ELVIRA SCHULTZ DO This Is Your Medications List finasteride (finasteride 5 mg Tab) oxybutynin (oxybutynin 5 mg Tab) Contact prescribing physician if questions or concerns Misc Prescription aspirin (aspirin 81 mg oral tablet) cholecalciferol (Vitamin D3) elderberry metoprolol (Metoprolol tartrate 25 mg Tab) tacrolimus terazosin (terazosin 5 mg Cap) zinc sulfate (Zinc) Procedures Performed Cystoscopy (09/22/2022), Transrectal biopsy of prostate using ultrasound (US) guidance (01/22/2022), Transrectal biopsy of prostate using ultrasound (US) guidance (11/09/2019), Transrectal biopsy of prostate using ultrasound (US) guidance (05/19/2018), Appendectomy, Cardiac pacemaker, Colonoscopy, Tonsillectomy, Tx - Liver transplantation. Discharge Vitals Heart Rate (Peripheral) 92 Respiratory Rate 16 Blood Pressure 131/83 Height 178 cm Height 70 in Weight 80 kg Weight 176 lb BMI 25.25 What to do next You Need to Schedule the Following Appointments Follow Up with Chandler CHAVEZ, Sugey Cummins, TAMEKA, URO When: In 9 months Comments: w/PSA F&T Where: Medications What How Much When Instructions Unchanged finasteride (finasteride 5 mg Tab) 1 Tablets By Mouth Every day Unchanged oxybutynin (oxybutynin 5 mg Tab) 1 Tablets By Mouth At bedtime Unchanged aspirin (aspirin 81 mg oral tablet) Contact prescribing physician if questions or concerns Unchanged cholecalciferol (Vitamin D3) Contact prescribing physician if questions or concerns Unchanged elderberry By Mouth Every day Contact prescribing physician if questions or concerns Unchanged metoprolol (Metoprolol tartrate 25 mg Tab) 1 Tablets By Mouth 2 times a day Contact prescribing physician if questions or concerns Unchanged Misc Prescription See instructions Septra 1 tablet by mouth MWF Contact prescribing physician if questions or concerns Unchanged tacrolimus 1 Milligram By Mouth 2 times a day Contact prescribing physician if questions or concerns Unchanged terazosin (terazosin 5 mg Cap) Contact prescribing physician if questions or concerns Unchanged zinc sulfate (Zinc) By Mouth Every day Contact prescribing physician if questions or concerns Test Results Urnls Dip Stick Auto w/o Microscopy POC 41340 (05/27/2023) Bilirubin Urine Dipstick - Negative Blood Urine Dipstick - Negative Glucose Urine Dipstick - Negative Ketones Urine Dipstick - Negative Leukocytes Urine Dipstick - Trace Nitrite Urine Dipstick - Negative Protein Urine Dipstick - Negative Specific [place] Urine Dipstick - 1.025 Urine Appearance Urine Dipstick - Clear Urine Color Urine Dipstick - Yellow Urobilinogen Urine Dipstick - Normal 0.2-1 EU/dl pH Urine Dipstick - 5.5 Allergies No Known Medication Allergies Problems Ongoing - Any problem that you are currently receiving treatment for. Anticoagulant long-term use BPH with urinary obstruction ED (erectile dysfunction) Elevated PSA Feeling of incomplete bladder emptying Former smoker Hepatitis C Hyperlipidemia Male hypogonadism Microscopic hematuria Nocturia PIN III (prostatic intraepithelial neoplasm III) Prostate pain Urinary retention Weak urinary stream Patient Survey You may receive a survey via text or e-mail asking about your office visit. Please share your experience with us by completing your survey. We appreciate your feedback and thank you for choosing us for your care. Education Materials Benign Prostatic Hyperplasia Benign prostatic hyperplasia (BPH) is an enlarged prostate gland that is caused by the normal aging process. The prostate may get bigger as a man gets older. The condition is not caused by cancer. The prostate is a walnut-sized gland that is involved in the production of semen. It is located in front of the rectum and below the bladder. The bladder stores urine. The urethra carries stored urine out of the body. An enlarged prostate can press on the urethra. This can make it harder to pass urine. The buildup of urine in the bladder can cause infection. Back pressure and infection may progress to bladder damage and kidney (renal) failure. What are the causes? This condition is part of the normal aging process. However, not all men develop problems from this condition. If the prostate enlarges away from the urethra, urine flow will not be blocked. If it enlarges toward the urethra and compresses it, there will be problems passing urine. What increases the risk? This condition is more likely to develop in men older than (more content not included)... Normal [facility] Patient Educationon 05-27-20 23 Patient Education Urology Benign Prostatic Hyperplasia Benign prostatic hyperplasia (BPH) is an enlarged prostate gland that is caused by the normal aging process. The prostate may get bigger as a man gets older. The condition is not caused by cancer. The prostate is a walnut-sized gland that is involved in the production of semen. It is located in front of the rectum and below the bladder. The bladder stores urine. The urethra carries stored urine out of the body. An enlarged prostate can press on the urethra. This can make it harder to pass urine. The buildup of urine in the bladder can cause infection. Back pressure and infection may progress to bladder damage and kidney (renal) failure. What are the causes? This condition is part of the normal aging process. However, not all men develop problems from this condition. If the prostate enlarges away from the urethra, urine flow will not be blocked. If it enlarges toward the urethra and compresses it, there will be problems passing urine. What increases the risk? This condition is more likely to develop in men older than 50 years. What are the signs or symptoms? Symptoms of this condition include: ? Getting up often during the night to urinate. ? Needing to urinate frequently during the day. ? Difficulty starting urine flow. ? Decrease in size and strength of your urine stream. ? Leaking (dribbling) after urinating. ? Inability to pass urine. This needs immediate treatment. ? Inability to completely empty your bladder. ? Pain when you pass urine. This is more common if there is also an infection. ? Urinary tract infection (UTI). How is this diagnosed? This condition is diagnosed based on your medical history, a physical exam, and your symptoms. Tests will also be done, such as: ? A post-void bladder scan. This measures any amount of urine that may remain in your bladder after you finish urinating. ? A digital rectal exam. In a rectal exam, your health care provider checks your prostate by putting a lubricated, gloved finger into your rectum to feel the back of your prostate gland. This exam detects the size of your gland and any abnormal lumps or growths. ? An exam of your urine (urinalysis). ? A prostate specific antigen (PSA) screening. This is a blood test used to screen for prostate cancer. ? An ultrasound. This test uses sound waves to electronically produce a picture of your prostate gland. Your health care provider may refer you to a specialist in kidney and prostate diseases (urologist). How is this treated? Once symptoms begin, your health care provider will monitor your condition (active surveillance or watchful waiting). Treatment for this condition will depend on the severity of your condition. Treatment may include: ? Observation and yearly exams. This may be the only treatment needed if your condition and symptoms are mild. ? Medicines to relieve your symptoms, including: ? Medicines to shrink the prostate. ? Medicines to relax the muscle of the prostate. ? Surgery in severe cases. Surgery may include: ? Prostatectomy. In this procedure, the prostate tissue is removed completely through an open incision or with a laparoscope or robotics. ? Transurethral resection of the prostate (TURP). In this procedure, a tool is inserted through the opening at the tip of the penis (urethra). It is used to cut away tissue of the inner core of the prostate. The pieces are removed through the same opening of the penis. This removes the blockage. ? Transurethral incision (TUIP). In this procedure, small cuts are made in the prostate. This lessens the prostate's pressure on the urethra. ? Transurethral microwave thermotherapy (TUMT). This procedure uses microwaves to create heat. The heat destroys and removes a small amount of prostate tissue. ? Transurethral needle ablation (TUNA). This procedure uses radio frequencies to destroy and remove a small amount of prostate tissue. ? Interstitial laser coagulation (ILC). This procedure uses a laser to destroy and remove a small amount of prostate tissue. ? Transurethral electrovaporization (TUVP). This procedure uses electrodes to destroy and remove a small amount of prostate tissue. ? Prostatic urethral lift. This procedure inserts an implant to push the lobes of the prostate away from the urethra. Follow these instructions at home: ? Take xpqk-wee-ploajgy and prescription medicines only as told by your health care provider. ? Monitor your symptoms for any changes. Contact your health care provider with any changes. ? Avoid drinking large amounts of liquid before going to bed or out in public. ? Avoid or reduce how much caffeine or alcohol you drink. ? Give yourself time when you urinate. ? Keep all follow-up visits. This is important. Contact a health care provider if: ? You have unexplained back pain. ? Your symptoms do not get better with treatment. ? You develop side effects from the medicine (more content not included)... Normal [facility] Urology Office/Clinic Noteon 05-27-2023 Urology Office/Clinic Note Chief Complaint 3m to starting medication HPI Staff 3m to starting Finasteride 5mg therapy. DX: BPH, Elevated PSA, Feeling of Incomplete Bladder emptying & ED *Oxybutynin 5mg and terazosin 5mg at bedtime therapy. Last PSA 02/18/23- 30.56 (per last encounter from 02/25/23, pt will need 1yr PSA F/T) Pt states he took Finasteride for 1m. Did not think it was doing any good, began getting dizzy when he would stand up, so he stopped taking. Urgency & Frequency are biggest urinary complaints. Day and night. No changes since last encounter. 1-3x/night to void. History of Present Illness Tests reviewed: reviewed UA I have reviewed the previous health record information and history for this patient from . I have reviewed and verified the staff HPI to be accurate for this encounter. There have been no associated fever, chills, flank pain, or blood in the urine. Denies any urinary infections since last encounter. Review of Systems PHQ Score Initial Depression Screen Score: 0 SCORE ROS - Provider Constitutional: denies weight loss, denies hot flashes. Eyes: denies eye problems. Gastrointestinal: denies nausea, denies vomiting. Cardiovascular: denies chest pain or angina. Integumentary: no dryness Musculoskeletal: denies musculoskeletal symptoms. ENMT: denies otolaryngeal symptoms. Respiratory: no shortness of breath. Heme/Lymph: denies easy bleeding tendency, denies easy bruising tendency. Psychiatric: no confusion, no anxiety. Genitourinary: See HPI. Physical Exam Vitals & Measurements HR: 92(Peripheral) RR: 16 BP: 131/83 HT: 70 in HT: 178 cm WT: 80 kg WT: 176 lb BMI: 25.25 General Appearance: alert, no distress, well nourished, well developed male. Assessment/Plan 73 [address] healthy male prior Dr. Alves pt with chronically elevated PSA and neg biopsies x 4 here for follow up 1. BPH with urinary obstruction (N40.1: Benign prostatic hyperplasia with lower urinary tract symptoms) Cysto 09/22/2022 showed moderate to severe trilobar hypertrophy with global intravesical protrusion including median lobe without sulcus 2 cm. Moderate bilobar, severe near bladder neck. R>L MRI Prostate volume 11/11/22 - 149 ml Pt never started Cialis 5mg. Previously failed Flomax due to lightheadedness. Oxybutynin 5mg and Terazosin 5mg at bedtime IPSS 19 (14) - improvement after restarting Terazosin UA today is negative for blood and infection. Pt states he took Finasteride for 1m in AM. Did not think it was doing any good, began getting dizzy when he would stand up, so he stopped taking. Urgency & Frequency are biggest urinary complaints. Day and night. No changes since last encounter. 1-3x/night to void. Again discussed outlet procedures including HOLEP, Aquablation, staged TURP, robotic simple prostatectomy. Risks/benefits again discussed. Pt would like to avoid procedures. Regarding medications: can increase the Terazosin to 10 mg. Advised pt that if he gets dizzy with the increased dose of Terazosin, he could go back to 5 mg. Re-discussed role of finasteride. Pt would like to try again to see if he can tolerate to shrink his prostate. Recommend taking at night. Pt states that he has the urge to void when he starts water from the sink or when he goes out in the cold. Advised pt to try to do Kegels and timed voids to break the trigger cycle. Counseled pt on how to find the muscles to use for the Kegels. Follow up in 9 mos with PSA F&T, earlier if he wishes to discuss BPH All questions/concerns were discussed. Pt to call the office if he encounters any issues prior. Pt acknowledges understanding. -Try the Finasteride 5 mg PO at bedtime, if unable to tolerate, stop and increase Terazosin to 10mg. -Consider Outlet Procedures. -Kegels, timed voids 2. Elevated PSA (R97.20: Elevated prostate specific antigen [PSA]) PSA 02/18/23- 30.56, PSAD 0.2 08/19/22 - 56.46 12/21/21 - 29.06 05/20/21 - 20.30 07/16/20 - 30.52 05/24/20 - 51.51 Confirm MDX October 2020 42% likelihood of prostate cancer, 20% GL 7 or greater Pt has had 4 NEG TRUS prostate Bx: 03/2017, 05/2018 - HGPIN 1/12 cores L base, 10/2019, 01/22/2022 (vol 84-92 ml per TRUS report) Bone scan May 2021 neg for mets MRI Prostate w/wo Con 11/11/22 - Prostate volume 149mL, BPH changes, no evidence of malignancy Prior TOMMY 08/2022 neg Cont PSA monitoring -PSA F&T in 02/2024 3. Feeling of incomplete bladder emptying (R39.14: Feeling of incomplete bladder emptying) PVR (48cc) -See #1 4. ED (erectile dysfunction) (N52.9: Male erectile dysfunction, unspecified) KEVIN 1(1) Pt states that this is not a concern for him. I spent 35 minutes today with the patient: reviewing tests in preparation to see and discuss them with the patient, documenting clinical information in the electronic health records, and care coordination. Time was spent performing a medical exam and evaluation, counseling and educating the patient, and ordering medications in caring for the patient (more content not included)... Normal [facility] Comment on above: Result Comment: Elec tronically Signed By: Sugey Arteaga MD\.br\Date and Time Signed: 05/27/23 12:15 EST\.br\Electronically Co-Signed By: Marizol Francis\.br\Date and Time Co-Signed: 05/27/23 10:37 EST Tacrolimus Bld-mCncon 2022 Tacrolimus (Bld) [Mass/Vol] 6.1 ng/mL Normal 5.0-20.0 [facility] Comment on above: Order Comment: Speci men Type: BLOOD SPECIMEN Ordering Facility: [facility] Address: , , Result Comment: Noreen vidualized target levels for a given patient will depend on many factors (including the type of organ transplant, time since transplantation, concurrent medications, and other clinical factors), and should be assessed by those health care providers experienced in the management of immunosuppression. Reference ranges and high/low indicator flags are provided as general guidelines only. The treating physician must determine appropriate target levels/dosing based on the specific clinical situation. Test performed by chemiluminescent immunoassay using Cruz Alinity i. Performed By: #### 1 [id number] #### [facility] CLIA [id number] [address] [place] [address] [place] Ambulatory Visit Summaryon 0 02-25-2023 Ambulatory Visit Summary SUSAN SHERMAN :1950 Visit Date:02/25/2023 Ambulatory Visit Instructions Your Diagnosis BPH with urinary obstruction Elevated PSA Feeling of incomplete bladder emptying ED (erectile dysfunction) Tests Performed Urnls Dip Stick Auto w/o Microscopy POC 67966 Your Care Team Attending Physician - Sugey Arteaga MD Primary Care Physician - ELVIRA SCHULTZ DO This Is Your Medications List oxybutynin (oxybutynin 5 mg Tab) Contact prescribing physician if questions or concerns Misc Prescription amlodipine aspirin (aspirin 81 mg oral tablet) metoprolol (Metoprolol tartrate 25 mg Tab) tacrolimus terazosin (terazosin 5 mg Cap) Procedures Performed Cystoscopy (09/22/2022), Transrectal biopsy of prostate using ultrasound (US) guidance (01/22/2022), Transrectal biopsy of prostate using ultrasound (US) guidance (11/09/2019), Transrectal biopsy of prostate using ultrasound (US) guidance (05/19/2018), Appendectomy, Cardiac pacemaker, Colonoscopy, Tonsillectomy, Tx - Liver transplantation. Discharge Vitals Heart Rate (Peripheral) 68 Respiratory Rate 16 Blood Pressure 130/68 Height 178 cm Height 70 in Weight 80 kg Weight 176 lb BMI 25.25 What to do next You Need to Schedule the Following Appointments Follow Up with Chandler CHAVEZ, TAMEKA Mendoza, URO When: In 3 months Where: Medications What How Much When Instructions Unchanged oxybutynin (oxybutynin 5 mg Tab) 1 Tablets By Mouth At bedtime Unchanged amlodipine 5 Milligram By Mouth Every day Contact prescribing physician if questions or concerns Unchanged aspirin (aspirin 81 mg oral tablet) Contact prescribing physician if questions or concerns Unchanged metoprolol (Metoprolol tartrate 25 mg Tab) 1 Tablets By Mouth 2 times a day Contact prescribing physician if questions or concerns Unchanged Misc Prescription See instructions Septra 1 tablet by mouth MWF Contact prescribing physician if questions or concerns Unchanged tacrolimus 1 Milligram By Mouth 2 times a day Contact prescribing physician if questions or concerns Unchanged terazosin (terazosin 5 mg Cap) Contact prescribing physician if questions or concerns Test Results Urnls Dip Stick Auto w/o Microscopy POC 46753 (02/25/2023) Bilirubin Urine Dipstick - Negative Blood Urine Dipstick - Negative Glucose Urine Dipstick - Negative Ketones Urine Dipstick - Trace - 5 mg/dl Leukocytes Urine Dipstick - Negative Nitrite Urine Dipstick - Negative Protein Urine Dipstick - Negative Specific [place] Urine Dipstick - 1.025 Urine Appearance Urine Dipstick - Clear Urine Color Urine Dipstick - Yellow Urobilinogen Urine Dipstick - Normal 0.2-1 EU/dl pH Urine Dipstick - 5.5 Allergies No Known Medication Allergies Problems Ongoing - Any problem that you are currently receiving treatment for. Anticoagulant long-term use BPH with urinary obstruction ED (erectile dysfunction) Elevated PSA Feeling of incomplete bladder emptying Former smoker Hepatitis C Hyperlipidemia Male hypogonadism Microscopic hematuria Nocturia PIN III (prostatic intraepithelial neoplasm III) Prostate pain Urinary retention Weak urinary stream Education Materials Prostate Cancer Screening Prostate cancer screening is testing that is done to check for the presence of prostate cancer in men. The prostate gland is a walnut-sized gland that is located below the bladder and in front of the rectum in males. The function of the prostate is to add fluid to semen during ejaculation. Prostate cancer is one of the most common types of cancer in men. Who should have prostate cancer screening? Screening recommendations vary based on age and other risk factors, as well as between the professional organizations who make the recommendations. In general, screening is recommended if: ? You are age 50 to 70 and have an average risk for prostate cancer. You should talk with your health care provider about your need for screening and how often screening should be done. Because most prostate cancers are slow growing and will not cause , screening in this age group is generally reserved for men who have a 10- to 15-year life expectancy. ? You are younger than age 50, and you have these risk factors: ? Having a father, brother, or uncle who has been diagnosed with prostate cancer. The risk is higher if your family member's cancer occurred at an early age or if you have multiple family members with prostate cancer at an early age. ? Being a male who is Black or is of [place] or sub-Saharan descent. In general, screening is not recommended if: ? You are younger than age 40. ? You are between the ages of 40 and 49 and you have no risk factors. ? You are 70 years of age or older. At this age, the risks that screening can cause are greater than the benefits that it may provide. If you are at high risk for prostate cance (more content not included)... Normal [facility] Patient Educationon 02-26-20 Patient Education Oncology Prostate Cancer Screening Prostate cancer screening is testing that is done to check for the presence of prostate cancer in men. The prostate gland is a walnut-sized gland that is located below the bladder and in front of the rectum in males. The function of the prostate is to add fluid to semen during ejaculation. Prostate cancer is one of the most common types of cancer in men. Who should have prostate cancer screening? Screening recommendations vary based on age and other risk factors, as well as between the professional organizations who make the recommendations. In general, screening is recommended if: ? You are age 50 to 70 and have an average risk for prostate cancer. You should talk with your health care provider about your need for screening and how often screening should be done. Because most prostate cancers are slow growing and will not cause , screening in this age group is generally reserved for men who have a 10- to 15-year life expectancy. ? You are younger than age 50, and you have these risk factors: ? Having a father, brother, or uncle who has been diagnosed with prostate cancer. The risk is higher if your family member's cancer occurred at an early age or if you have multiple family members with prostate cancer at an early age. ? Being a male who is Black or is of [place] or sub-Saharan descent. In general, screening is not recommended if: ? You are younger than age 40. ? You are between the ages of 40 and 49 and you have no risk factors. ? You are 70 years of age or older. At this age, the risks that screening can cause are greater than the benefits that it may provide. If you are at high risk for prostate cancer, your health care provider may recommend that you have screenings more often or that you start screening at a younger age. How is screening for prostate cancer done? The recommended prostate cancer screening test is a blood test called the prostate-specific antigen (PSA) test. PSA is a protein that is made in the prostate. As you age, your prostate naturally produces more PSA. Abnormally high PSA levels may be caused by: ? Prostate cancer. ? An enlarged prostate that is not caused by cancer (benign prostatic hyperplasia, or BPH). This condition is very common in older men. ? A prostate gland infection (prostatitis) or urinary tract infection. ? Certain medicines such as male hormones (like testosterone) or other medicines that raise testosterone levels. A rectal exam may be done as part of prostate cancer screening to help provide information about the size of your prostate gland. When a rectal exam is performed, it should be done after the PSA level is drawn to avoid any effect on the results. Depending on the PSA results, you may need more tests, such as: ? A physical exam to check the size of your prostate gland, if not done as part of screening. ? Blood and imaging tests. ? A procedure to remove tissue samples from your prostate gland for testing (biopsy). This is the only way to know for certain if you have prostate cancer. What are the benefits of prostate cancer screening? ? Screening can help to identify cancer at an early stage, before symptoms start and when the cancer can be treated more easily. ? There is a small chance that screening may lower your risk of dying from prostate cancer. The chance is small because prostate cancer is a slow-growing cancer, and most men with prostate cancer from a different cause. What are the risks of prostate cancer screening? The main risk of prostate cancer screening is diagnosing and treating prostate cancer that would never have caused any symptoms or problems. This is called overdiagnosisand overtreatment. PSA screening cannot tell you if your PSA is high due to cancer or a different cause. A prostate biopsy is the only procedure to diagnose prostate cancer. Even the results of a biopsy may not tell you if your cancer needs to be treated. Slow-growing prostate cancer may not need any treatment other than monitoring, so diagnosing and treating it may cause unnecessary stress or other side effects. Questions to ask your health care provider ? When should I start prostate cancer screening? ? What is my risk for prostate cancer? ? How often do I need screening? ? What type of screening tests do I need? ? How do I get my test results? ? What do my results mean? ? Do I need treatment? Where to find more information ? The [place] [employer]: www.cancer.org ? [place] [employer]: www.auanet.org Contact a health care provider if: ? You have difficulty urinating. ? You have pain when you urinate or ejaculate. ? You have blood in your urine or semen. ? You have pain in your back or in the area of your prostate. Summary ? Prostate cancer is a common type of cancer in men. The prostate gland is located below the bladder and in front of the rectum. This gland adds flu (more content not included)... Normal [facility] Screenson 02-25-2023 Screens [id number]#1. 00CD:127 Normal [facility] Screens [id number] 03 [id number]#1. 00CD:127 [facility] Urology Office/Clinic Noteon 02-25-2023 Urology Office/Clinic Note Chief Complaint 3m PSA HPI Staff 3m f/u w/PSA following NEG MRI 11/11/22 Last seen in our office 10/08/22 due to BPH, Elevated PSA, Incomplete Bladder Emptying & ED. *Oxybutynin 5mg & pt started on Terazosin 5mg qhs at time of last encounter. *Using previous Terazosin on hand. Still has 1-2 bottles. Does need refill of Oxybutynin. PSA 02/18/23- 30.56 Still getting up 2-4x/night to void. q2-3hrs during the day. Denies pain/burning and visible blood in urine. Denies complaints with urinary stream. Denies any urinary concerns at this time. History of Present Illness Tests reviewed: reviewed UA, PSA and MRI. I have reviewed the previous health record information and history for this patient from . I have reviewed and verified the staff HPI to be accurate for this encounter. There have been no associated fever, chills, flank pain, or blood in the urine. Denies any urinary infections since last encounter. Review of Systems PHQ Score Initial Depression Screen Score: 0 ROS - Provider Constitutional: denies weight loss, denies hot flashes. Eyes: denies eye problems. Gastrointestinal: denies nausea, denies vomiting. Cardiovascular: denies chest pain or angina. Integumentary: no dryness Musculoskeletal: denies musculoskeletal symptoms. ENMT: denies otolaryngeal symptoms. Respiratory: no shortness of breath. Heme/Lymph: denies easy bleeding tendency, denies easy bruising tendency. Psychiatric: no confusion, no anxiety. Genitourinary: See HPI. Physical Exam Vitals & Measurements HR: 68(Peripheral) RR: 16 BP: 130/68 HT: 70 in HT: 178 cm WT: 80 kg WT: 176 lb BMI: 25.25 General Appearance: alert, no distress, well nourished, well developed male. Genitourinary: Flank Pain: none. Bladder: nonpalpable. Assessment/Plan [address] healthy male prior Dr. Alves pt with chronically elevated PSA and neg biospies x 4 here for follow up 1. BPH with urinary obstruction (N40.1: Benign prostatic hyperplasia with lower urinary tract symptoms) Cysto 09/22/2022 showed moderate to severe trilobar hypertrophy with global intravesical protrusion including median lobe without sulcus 2 cm. Moderate bilobar, severe near bladder neck. R>L MRI Prostate volume 11/11/22 - 149 ml Pt never started Cialis 5mg. Previously failed Flomax due to lightheadedness. Oxybutynin 5mg and Terazosin 5mg at bedtime IPSS 14 (24) - improvement after restarting Terazosin UA today is negative for blood and infection. Pt states that he still has 1-2 bottles left of terazosin and needs a refill of the Oxybutynin. Thoroughly discussed outlet procedure options and medical treatment. Not candidate for less invasive procedures given large size. Discussed staged TURP, simple prostatectomy and HOLEP. Would like to avoid procedures. Discussed finasteride to shrink prostate over time, risks/benefits discussed Follow up in 3 mos. All questions/concerns were discussed. Pt to call the office if he encounters any issues prior. Pt acknowledges understanding. -Timed voids regardless of sensation -Continue Oxybutynin 5mg and terazosin 5mg at bedtime. Refills for Oxybutynin sent to pharm on file. -Will start Finasteride 5mg QD, sent to pharm on file. Discussed the medication side effects, and the patient will monitor closely for these, as well as for symptom improvement. If severe side effects occur, the medication should be stopped and the office notified. Advised pt that this med takes about 3 mos to start working and will affect his PSA 2. Elevated PSA (R97.20: Elevated prostate specific antigen [PSA]) PSA 02/18/23- 30.56, PSAD 0.2 08/19/22 - 56.46 12/21/21 - 29.06 05/20/21 - 20.30 07/16/20 - 30.52 05/24/20 - 51.51 Confirm MDX October 2020 42% likelihood of prostate cancer, 20% GL 7 or greater Pt has had 4 NEG TRUS prostate Bx: 03/2017, 05/2018 - HGPIN 1/12 cores L base, 10/2019, 01/22/2022 (vol 84-92 ml per TRUS report) Bone scan May 2021 neg for mets MRI Prostate w/wo Con 11/11/22 - Prostate volume 149mL, BPH changes, no evidence of malignancy Prior TOMMY 08/2022 neg Discussed PSA and MRI with pt, MRI is negative, risk of missing cancer Discussed getting a repeat bx done or continuing to monitor, risk of missed malignancy discussed. Would like to avoid procedures. Given number of neg biopsies, neg MRI and decrease in PSA from prior, will cont monitoring -PSA F/T in 1 year 3. Feeling of incomplete bladder emptying (R39.14: Feeling of incomplete bladder emptying) PVR (48cc) -See #1 4. ED (erectile dysfunction) (N52.9: Male erectile dysfunction, unspecified) KEVIN 1(1) Pt is not currently on any medication. Declines further treatment at this time. Not a priority I spent 30 minutes today with the patient: reviewing tests in preparation to see and discuss them with the patient, documenting clinical information in the electronic health records, and care coordination. Time was spent performing a medical exam and evaluation, counseling and educating the (more content not included)... Normal [facility] Comment on above: Result Comment: Elec tronically Signed By: Sugey Arteaga MD\.br\Date and Time Signed: 02/25/23 10:46 EDT\.br\Electronically Co-Signed By: Marizol Francis\.br\Date and Time Co-Signed: 02/25/23 09:49 EDT\.br\Electronically Co-Signed By: Marizol Francis\.br\Date and Time Co-Signed: 02/25/23 09:50 EDT [place] 02-23-2023 CNCO Letter Text Normal [facility] Wilbert 02-23-2023 CNPN Telephone (TXCTMN) SUSAN SHERMAN ([id number]) 1950 M Date Time Provider Department 02/23/23 YULISA LEWIS TXCTMN During your visit today, we recorded the following information about you: Yulisa Lewis, RN 02/23/2023 2:57 PM Signed Spoke with patient who advised he is feeling well. He denies any complaints. States most days I fell like I am 52 y/O again, thank you . Reviewed recent labs and advised moving forward will have his local lab run his tacrolimus test. Requested he send a My Chart message when he has labs drawn locally. Copy of updated lab letter sent to patent and also faxed to local lab [phone]. Pt verbalized understanding, no further questions at this time. Yulisa Lewis RN, BSN, [facility] [employer] Allergies As of Date: 02/23/2023 (No Known Allergies) Date Reviewed: 04/16/2020 Reviewed by: Latisha Hernandez (Rn), RN - Fully Assessed Reason for Visit: Patient Update [1234] Orders [681] Cmt: New standing lab order Prescriptions as of 02/23/2023 - tacrolimus IR (PROGRAF) 1 mg capsule TAKE 2 CAPSUES BY MOUTH TWICE DAILY - sulfamethoxazole-trime thoprim (BACTRIM DS) 800-160 mg per tablet TAKE ONE TABLET BY MOUTH DAILY ON MONDAYS, WEDNESDAYS AND FRIDAYS - amLODIPine (NORVASC) 5 mg tablet Take 1 tablet by mouth once daily. - metoprolol tartrate, short acting, (LOPRESSOR) 25 mg tablet Take 1 tablet by mouth twice daily. Meds Comments as of 02/11/2012: As per patient medications are current. Leny Nelson LPN 02/11/2012 Problem List As Of Date 02/23/2023 Noted Resolved Bacteremia [R78.81] 01/06/2007 02/18/2017 Other streptococcus infection in conditions cla*01/06/2007 02/18/2017 Cirrhosis of liver without mention of alcohol [*10/18/2007 02/18/2017 UNILAT INGUINAL HERNIA [K40.90] 02/02/2008 SUMMARY [V999.95] 08/14/2012 Hepatic encephalopathy (HCC) [K76.82] 08/14/2012 02/18/2017 DVT prophylaxis [Z79.899] 08/14/2012 02/18/2017 Mechanically assisted ventilation [Z99.11] 08/14/2012 02/18/2017 Leucocytosis [D72.829] 08/18/2012 02/18/2017 Hyponatremia [E87.1] 08/18/2012 02/18/2017 Ascites [R18.8] 11/10/2012 02/18/2017 Pancreatic neoplasm [D49.0] 11/10/2012 Portal hypertension (HCC) [K76.6] 11/10/2012 02/18/2017 Hepatitis C [B19.20] 05/03/2013 02/18/2017 Hepatocellular carcinoma (HCC) [C22.0] 12/21/2014 02/18/2017 Liver transplanted (HCC) [Z94.4] 01/19/2015 Need for prophylactic immunotherapy [Z29.8] 02/07/2015 SB (acute kidney injury) (HCC) [N17.9] 02/07/2015 02/18/2017 Bile leak [K83.9] 02/07/2015 Biliary stricture of transplanted liver (HCC) [*02/07/2015 History of hepatitis C [Z86.19] 02/18/2017 History of hepatocellular carcinoma [Z85.05] 02/18/2017 History of colonic polyps [Z86.010] 02/18/2017 Encounter Status:Closed by YULISA LEWIS on 02/23/23 Normal [facility] Lab Reportson 02-20-2023 Lab Reports [id number]#1.0 0CD:127 Normal [facility] Tacrolimus Bld-mCncon 2022 Tacrolimus (Bld) [Mass/Vol] 6.5 ng/mL Normal 5.0-20.0 [facility] Comment on above: Order Comment: Speci men Type: BLOOD SPECIMEN Ordering Facility: [facility] Address: , , Result Comment: Noreen vidualized target levels for a given patient will depend on many factors (including the type of organ transplant, time since transplantation, concurrent medications, and other clinical factors), and should be assessed by those health care providers experienced in the management of immunosuppression. Reference ranges and high/low indicator flags are provided as general guidelines only. The treating physician must determine appropriate target levels/dosing based on the specific clinical situation. Test performed by chemiluminescent immunoassay using RealMassiveniAdlogix i. Performed By: #### 1 1253-2 #### [facility] CLIA [id number] [place] Tacrolimus Bld-mCncon 2022 Tacrolimus (Bld) [Mass/Vol] 7.0 ng/mL Normal 5.0-20.0 [facility] Comment on above: Order Comment: Speci men Type: BLOOD SPECIMENOrdering Facility: [facility] Address: , , Result Comment: Noreen vidualized target levels for a given patient will depend on many factors (including the type of organ transplant, time since transplantation, concurrent medications, and other clinical factors), and should be assessed by those health care providers experienced in the management of immunosuppression. Reference ranges and high/low indicator flags are provided as general guidelines only. The treating physician must determine appropriate target levels/dosing based on the specific clinical situation. Test performed by chemiluminescent immunoassay using setObject Alinity i. Performed By: #### 1 1253-2 ####[facility] [id number] [address] 12-11-2022 L -- ---- Specimen: [id number] Received: 12/11/22 Status: JENIFER Ng Num: [id number] Spec Type: Surgical Subm Dr: Sheila Magallanes MD Tissues: A Gastric Biopsy (GASTRIC BX) B Colon Biopsy (COLONIC BX) C Colon Biopsy (DESCENDING POLYP) D Colon Biopsy (SIGMOID POLYPS) Procedures: HE/Iris, Gross/Micro L4/4 ---- Age/ Patient Sex Location Account Attending Physician ---- Susan Sherman/COX BRANSON [id number] Sheila Magallanes MD ---- SPEC NUM: [id number] RECD: 12/11/22 STATUS: JENIFER NG NUM: [id number] ML: 12/11/22- [facility] DR: Sheila Magallanes MD ENTERED: 12/11/22 [facility] DR: MINDY TYPE: Surgical DEPT: S ORDERED: HE/8, Gross/Micro L4/4 ORDERED: HE/8, Gross/Micro L4/4 Pathological Diagnosis A. Stomach, gastric, biopsy: - Reactive gastropathy. - Negative for Helicobacter pylori on H E stain. B. Colon, biopsy: - Colonic mucosa negative for significant histopathologic changes. - There is no evidence of acute, chronic or microscopic colitis. - Negative for epithelial dysplasia. C. Colon, descending, polyp, biopsy: - Tubular adenoma. D. Colon, sigmoid, polyps, polypectomy: - Tubular adenoma. - Hyperplastic polyp with associated acute inflammation and granulation tissue. Clinical Information Dysphagia, diarrhea, rule out H. pylori, rule out microscopic colitis ---- Specimen: [id number] Received: 12/11/22 Status: YAKELINAmandeep Ng Num: [id number] Spec Type: Surgical Subm Dr: Sheila Magallanes MD Tissues: A Gastric Biopsy (GASTRIC BX) B Colon Biopsy (COLONIC BX) C Colon Biopsy (DESCENDING POLYP) D Colon Biopsy (SIGMOID POLYPS) Procedures: HE/8, Gross/Micro L4/4 ---- Patient: Susan Sherman [id number] (Continued) ---- Specimen: [id number] Received: 12/11/22 (Continued) Signed (signature on file) Melissa Briones MD 12/12/22 1002 ---- Specimen: [id number] Received: 12/11/22 Status: JENIFER Ng Num: [id number] Spec Type: Surgical Subm Dr: Sheila Magallanes MD Tissues: A Gastric Biopsy (GASTRIC BX) B Colon Biopsy (COLONIC BX) C Colon Biopsy (DESCENDING POLYP) D Colon Biopsy (SIGMOID POLYPS) Procedures: MATT/Iris, Gross/Micro L4/4 ---- Patient: Susan Sherman [id number] (Continued) ---- Specimen: [id number] Received: 12/11/22 (Continued) Gross Description A. Received in formalin labeled with the patient's name, date of and gastric biopsy rule out H. pylori is one garcia tissue measuring 0.5 x 0.3 x 0.2 cm. Entirely submitted in one cassette labeled A1. B. Received in formalin labeled with the patient's name, date of and colonic biopsy rule out microscopic colitis are two garcia tissues measuring 0.3 x 0.2 x 0.1 cm and 0.4 x 0 .4 x 0.2 cm. Entirely submitted in one cassette labeled B1. C. Received in formalin labeled with the patient's name, date of and descending colon polyp are multiple garcia tissues and fecal material measuring 2.8 x 1.6 x 0.4 cm in aggregate. Entirely submitted in one cassette labeled C1. D. Received in formalin labeled with the patient's name, date of and sigmoid polyps are two garcia tissues measuring 0.5 x 0.4 x 0.3 cm and 0.8 x 0.5 x 0.3 cm. Entirely submitted in one cassette labeled D1. Microscopic Description A. Two H E slides reviewed. The microscopic examination confirms the diagnosis. B. Two H E slides reviewed. The microscopic examination confirms the diagnosis. C. Two H E slides reviewed. The microscopic examination confirms the diagnosis. D. Two H E slides reviewed. The microscopic examination confirms the diagnosis. CPT Codes 76269 x 4 ---- ---- Specimen: [id number] Received: 12/11/22 Status: JENIFER Ng Num: [id number] Spec Type: Surgical Subm Dr: Sheila Magallanes MD Tissues: A Gastric Biopsy (GASTRIC BX) B Colon Biopsy (COLONIC BX) C Colon Biopsy (DESCENDING POLYP) D Co (more content not included)... Normal [facility] RAD - MRI Reporton 3 RAD - MRI Report [id number]#1.0 0CD:127 Normal [facility] Creatinine (Bld) [Mass/Vol]O rdered By: Sugey Arteaga on 11-11-2022 Creatinine [Mass/Vol] 1.5 mg/dL 0.6-1.3 [facility] Comment on above: ER/ESD physician is notified/shown all ISTAT results.Critical values may be confirmed by laboratory testing ifdeemed necessary by ER attending doctor. MR prostate wo/w conon 11-11 MR prostate wo/w con [facility] [place] [address] [place] [address] MRI Report Signed Patient: Susan Sherman MR#: [id number] : 1950 Acct:[id number] Age/Sex: 72 / M ADM Date: 11/11/22 Loc: MR Room: Type: [facility] Attending Dr: Sugey Arteaga MD Copies to: Sugey Arteaga MD Ordering Provider: Sugey Arteaga MD Date of Service: 11/11/22 MR/MR prostate wo/w con: R97.20, D07.5 EXAMINATION: MR prostate wo/w con HISTORY: Elevated PSA COMPARISON: NONE TECHNIQUE: Multiparametric imaging of the prostate gland was performed with IV contrast. FINDINGS: Prostate Dimensions: 6.2 x 6.4 x 7.2 cm Prostate Volume: 149 mL Peripheral Zone: Heterogenous inT2 signal suggestive of prior prostatitis. No suspicious T2 or ADC map abnormality is identified to suggest prostate malignancy. Central/Transitional Zone: BPH changes. Seminal Vesicles: Decompressed without focal abnormality Neurovascular bundles: Unremarkable. Lymphadenopathy: No evidence of lymphadenopathy. Bladder: No focal lesion. Bowel: Diverticulosis Peritoneal Cavity: Small amount of free fluid. Presumed bilateral inguinal hernia repairs. Bones: No suspicious bony lesion. MR/MR prostate wo/w con IMPRESSION: Enlarged prostate gland with BPH changes. No MRI evidence of malignancy. Impression dictated by: William Platt Jr., D.OShaylee11/11/2022 12:29 PM Dictation Location: [place] [address] Transcribed By: [facility] 11/11/22 1229 Dictated By: William Platt Jr, DO 11/11/22 1215 Signed By: 11/11/22 1229 Normal [facility] C reactive protein [Mass/vol ume] in Serum or PlasmaOrdered By: Sheila Magallanes on 11-06-2022 CRP [Mass/Vol] < 0.5 mg/dL 0.0-0.5 [facility] C-Reactive Proteinon 023 CRP [Mass/Vol] mg/L Normal 0.0-0.5 [facility] Comment on above: Order Comment: Reaso n for Exam Change in bowel habits Performed By: #### E LASTASE STOOL, OPEXAM, STOOL NA, CALPROTECT, CELIAC #### [facility] , #### ESR, TSH3, CUSTOOL, CRP, CDT #### [facility] [address] [place] [address] Calprotectin [Mass/mass] in StoolOrdered By: Sheila Magallanes on 11-06-2022 Calprotectin (Stl) [Mass/Mass] 31 ug/g 0-120 [facility] Comment on above: Concentration Interp retation Follow-Up< 5 - 50 ug/g Normal None>50 -120 ug/g Borderline Re-evaluate in 4-6 weeks >120 ug/g Abnormal Repeat as clinically indicatedPerformed at: [facility] [address] [id number] Director: Slim Lewis MD, Phone: [phone] Calprotectin, Fecalon 2022 Calprotectin, Fecal 31 Normal 0-120 [facility] Comment on above: Order Comment: Reaso n for Exam Change in bowel habits Result Comment: Conc entration Interpretation Follow-Up < 5 - 50 ug/g Normal None >50 -120 ug/g Borderline Re-evaluate in 4-6 weeks >120 ug/g Abnormal Repeat as clinically indicated Performed at: [facility] [address] [id number] [employer]: Slim Lewis MD, Phone: [phone] PERFORMED BY: [place] [address] PATHOLOGIST MELTER LOADER JOSE GUARDADO M.D. Performed By: #### E LASTASE STOOL, OPEXAM, STOOL NA, CALPROTECT, CELIAC #### [facility] , #### ESR, TSH3, CUSTOOL, CRP, CDT #### [facility] [address] [place] [address] Celiacon 11-06-2022 Deamidated Gliadin Abs, IgA 5 Normal 0-19 [facility] Comment on above: Order Comment: Reaso n for Exam Change in bowel habits Result Comment: Nega tive 0 - 19 Weak Positive 20 - 30 Moderate to Strong Positive >30 Performed By: #### E LASTASE STOOL, OPEXAM, STOOL NA, CALPROTECT, CELIAC #### [facility] , #### ESR, TSH3, CUSTOOL, CRP, CDT #### [address] Deamidated Gliadin Abs, IgG 4 Normal 0-19 [facility] Comment on above: Order Comment: Reaso n for Exam Change in bowel habits Result Comment: Nega tive 0 - 19 Weak Positive 20 - 30 Moderate to Strong Positive >30 Performed By: #### E LASTASE STOOL, OPEXAM, STOOL NA, CALPROTECT, CELIAC #### [facility] , #### ESR, TSH3, CUSTOOL, CRP, CDT #### [facility] [address] [place] [address] Endomysial Antibody IgA Negative Normal Negative [facility] Comment on above: Order Comment: Reaso n for Exam Change in bowel habits Performed By: #### E LASTASE STOOL, OPEXAM, STOOL NA, CALPROTECT, CELIAC #### [facility] , #### ESR, TSH3, CUSTOOL, CRP, CDT #### [facility] [address] [place] [address] [place] Immunoglobulin A, Qn, Serum 23 mg/dL Low 61-437 [facility] Comment on above: Order Comment: Reaso n for Exam Change in bowel habits Result Comment: Resu lt confirmed on concentration. Performed at: - [facility] [address] [id number] [employer]: Jorge Lockwood PhD, Phone: [phone] PERFORMED BY: [place] [address] PATHOLOGIST MELTER LOADER JOSE GUARDADO M.D. Performed By: #### E LASTASE STOOL, OPEXAM, STOOL NA, CALPROTECT, CELIAC #### [facility] , #### ESR, TSH3, CUSTOOL, CRP, CDT #### [facility] [address] [place] [address] T-Transglutaminase (tTG) IgA <2 Normal 0-3 [facility] Comment on above: Order Comment: Reaso n for Exam Change in bowel habits Result Comment: Nega tive 0 - 3 Weak Positive 4 - 10 Positive >10 Tissue Transglutaminase (tTG) has been identified as the endomysial antigen. Studies have demonstr- ated that endomysial IgA antibodies have over 99% specificity for gluten sensitive enteropathy. Performed By: #### E LASTASE STOOL, OPEXAM, STOOL NA, CALPROTECT, CELIAC #### [facility] , #### ESR, TSH3, CUSTOOL, CRP, CDT #### [facility] [address] [place] [address] T-Transglutaminase (tTG) IgG <2 Normal 0-5 [facility] Comment on above: Order Comment: Reaso n for Exam Change in bowel habits Result Comment: Nega tive 0 - 5 Weak Positive 6 - 9 Positive >9 Performed By: #### E LASTASE STOOL, OPEXAM, STOOL NA, CALPROTECT, CELIAC #### [facility] , #### ESR, TSH3, CUSTOOL, CRP, CDT #### [facility] [address] [place] [address] Clostridioides difficile tox in B tcdB gene [Presence] in Stool by LUZ MARIA with probe deteOrdered By: Sheila Magallanes on 11-06-2022 C. difficile toxin B tcdB gene LUZ MARIA+probe Ql (Stl) Negative Negative [facility] Comment on above: Testing performed by RT-PCR Clostridium Difficileon 10-14 Clostridium Difficile Negative Normal Negative [facility] Comment on above: Order Comment: Reaso n for Exam Change in bowel habits Result Comment: Test ing performed by RT-PCR PERFORMED BY: [place] [address] PATHOLOGIST MELTER LOADER JOSE GUARDADO M.D. Performed By: #### E LASTASE STOOL, OPEXAM, STOOL NA, CALPROTECT, CELIAC #### [facility] , #### ESR, TSH3, CUSTOOL, CRP, CDT #### [facility] [address] [place] [address] Elastase.pancreatic [Mass/ma ss] in StoolOrdered By: Sheila Magallanes on 11-06-2022 Elastase.pancreatic (Stl) [Mass/Mass] 132 >200 [facility] Comment on above: Result Units: ug Mile st./g Severe Pancreatic Insufficiency: <100 Moderate Pancreatic Insufficiency: 100 - 200 Normal: >200Performed at: [address] [id number] Director: Slim Lewis MD, Phone: [phone] Erythrocyte Sedimentation Ra trevon 11-06-2022 ESR (Bld) [Velocity] mm/h Normal 0-19 [facility] Comment on above: Order Comment: Reaso n for Exam Change in bowel habits Result Comment: PERF ORMED BY: [place] [address] PATHOLOGIST MELTER LOADER JOSE GUARDADO M.D. Performed By: #### E LASTASE STOOL, OPEXAM, STOOL NA, CALPROTECT, CELIAC #### [facility] , #### ESR, TSH3, CUSTOOL, CRP, CDT #### [facility] [address] [place] [address] Erythrocyte sedimentation ra te by Photometric methodOrdered By: Imyung Magallanes on 11-06-2022 ESR Photometric method (Bld) [Velocity] < 1 mm/hr 0-19 [facility] IgA [Mass/volume] in Serum o r PlasmaOrdered By: Imyung Magallanes on 11-06-2022 IgA [Mass/Vol] 23 mg/dL 61-437 [facility] Comment on above: Result confirmed on concentration.Performed at: - [facility] [id number] Director: Jorge Lockwood PhD, Phone: [phone] No Panel InformationOrdered By: Sheila Magallanes on 11-06-2022 Endomysial IgA Antibody Negative Negative F [facility] Ova and Parasite Result 1 [facility] OVA AND PARASITEon 3 OVA AND PARASITE Reason for Exam Christianson ge in bowel habits Stool Reason for Exam: Change in bowel habits : Stool Final report These results were obtained using wet preparation(s) and trichrome stained smear. This test does not include testing for Cryptosporidium parvum, Cyclospora, or Microsporidia. Reason for Exam Change in bowel habits Stool Reason for Exam: Change in bowel habits : Stool No ova, cysts, or parasites seen. One negative specimen does not rule out the possibility of a parasitic infection. Performed at: [facility] [address] [id number] [employer]: Jorge Lockwood PhD, Phone: [phone] PERFORMED BY: [place] [address] PATHOLOGIST MELTER LOADER JOSE GUARDADO M.D. Normal [facility] Comment on above: Performed By: #### E LASTASE STOOL, OPEXAM, STOOL NA, CALPROTECT, CELIAC #### [facility] , #### ESR, TSH3, CUSTOOL, CRP, CDT #### [address] Ova or parasites identificat ionOrdered By: Sheila Magallanes on 11-06-2022 Ova and parasites identified LM Nom (Unsp spec) [facility] Pancreatic Elastase, Stoolon 11-06-2022 Pancreatic Elastase, Stool 132 Low >200 [facility] Comment on above: Order Comment: Reaso n for Exam Change in bowel habits Result Comment: Resu lt Units: ug Elast./g Severe Pancreatic Insufficiency: <100 Moderate Pancreatic Insufficiency: 100 - 200 Normal: >200 Performed at: [facility] [address] [id number] [employer]: Slim Lewis MD, Phone: [phone] Performed By: #### E LASTASE STOOL, OPEXAM, STOOL NA, CALPROTECT, CELIAC #### [facility] , #### ESR, TSH3, CUSTOOL, CRP, CDT #### [facility] [address] Serum gliadin peptide IgA an tibody assay (units/volume)Ordered By: [facility] on 11-06-2022 Gliadin peptide IgA Qn (S) 5 units 0-19 [facility] Comment on above: Negative 0 - 19 Weak Positive 20 - 30 Moderate to Strong Positive >30 Serum gliadin peptide IgG an tibody assay (units/volume)Ordered By: ad [facility] on 11-06-2022 Gliadin peptide IgG Qn (S) 4 units 0-19 [facility] Comment on above: Negative 0 - 19 Weak Positive 20 - 30 Moderate to Strong Positive >30 Serum tissue transglutaminas e (tTG) IgA antibody assay (units/volume)Ordered By: [facility] on 11-06-2022 tTG IgA Qn (S) <2 U/mL 0-3 [facility] Comment on above: Negative 0 - 3 Weak Positive 4 - 10 Positive >10 Tissue Transglutaminase (tTG) has been identified as the endomysial antigen. Studies have demonstr- ated that endomysial IgA antibodies have over 99% specificity for gluten sensitive enteropathy. Serum tissue transglutaminas e (tTG) IgG antibody assay (units/volume)Ordered By: [facility] on 11-06-2022 tTG IgG Qn (S) <2 U/mL 0-5 [facility] Comment on above: Negative 0 - 5 Weak Positive 6 - 9 Positive >9 Sodium Stoolon 11-06-2022 Sodium Stool Normal [facility] Comment on above: Order Comment: Reaso n for Exam Change in bowel habits Result Comment: See report. Scanned copy available in EMR. PERFORMED BY: [place] [address] PATHOLOGIST MELTER LOADER JOSE GUARDADO M.D. Performed By: #### E LASTASE STOOL, OPEXAM, STOOL NA, CALPROTECT, CELIAC #### [facility] , #### ESR, TSH3, CUSTOOL, CRP, CDT #### [facility] [address] Stool Cultureon 11-06-2022 Stool culture Reason for Exam Christianson ge in bowel habits Stool Reason for Exam: Change in bowel habits : Stool Negative for Shiga Toxin 1 Negative for Shiga Toxin 2 A negative Shiga Toxin result may occur if the antigen level in the specimen is below the detection limit of the assay. Stool culture results No Salmonella, Shigella, Campy or E. coli 0157:H7 Isolated PERFORMED BY: [place] [address] PATHOLOGIST MELTER LOADER JOSE GUARDADO M.D. Normal [facility] Comment on above: Performed By: #### E LASTASE STOOL, OPEXAM, STOOL NA, CALPROTECT, CELIAC #### [facility] , #### ESR, TSH3, CUSTOOL, CRP, CDT #### [address] Stool bacteria identificatio n by cultureOrdered By: Sheila Magallanes on 11-06-2022 Bacteria identified Cx Nom (Stl) [facility] Stool sodium measurement (mo les/volume)Ordered By: Sheila Magallanes on 11-06-2022 Sodium (Stl) [Moles/Vol] See comment [facility] Comment on above: See report. Scanned copy available in EMR. Thyroid Stimulating Hormoneo n 11-06-2022 TSH Qn 3.51 m[IU]/L Normal 0.45-5.33 [facility] Comment on above: Order Comment: Reaso n for Exam Change in bowel habits Result Comment: PERF ORMED BY: [place] [address] PATHOLOGIST MELTER LOADER JOSE GUARDADO M.D. Performed By: #### E LASTASE STOOL, OPEXAM, STOOL NA, CALPROTECT, CELIAC #### [facility] , #### ESR, TSH3, CUSTOOL, CRP, CDT #### [facility] [address] Thyrotropin [Units/volume] i n Serum or PlasmaOrdered By: Sheila Magallanes on 11-06-2022 TSH Qn 3.51 m[IU]/L 0.45-5.33 [facility] HEP C RNA BY PCR QUANT (NON- GRAPHICAL) Won 10-21-2022 HCV Genotype RTNI Normal [facility] Comment on above: Result Comment: Not indicated Performed By: #### E YENYR, UMICRO #### [facility] [address] [place] [address] Dr. Yogi Naidu HCV log10 UPTCAL Normal [facility] Comment on above: Result Comment: Unab le to calculate result since non-numeric result obtained for component test. Performed By: #### Vesta DE OLIVEIRA, UMICRO #### [facility] [address] [place] [address] Dr. Yogi Naidu Hepatitis C Quantitation Not detected Normal [facility] Comment on above: Performed By: #### E ALVINO, UMICRO #### [facility] [address] [place] [address] Dr. Yogi Naidu Test Information: Comment Normal [facility] Comment on above: Result Comment: The quantitative range of this assay is 15 IU/mL to 100 million IU/mL. Performed By: #### E YENYR, UMICRO #### [facility] [address] [address] [address] Yogi Naidu BOX TEST SENT OUTon 10-21-19 23 SENT TO REF LAB 10/20/2022 Normal [facility] Comment on above: Performed By: #### B OX #### [facility] [address] [place] [address] Dr. Yogi Naidu CBC AUTO DIFFon 10-20-2022 BASO # 0.1 103/ul Normal 0.0-0.1 [facility] Comment on above: Performed By: #### C BC #### [facility] [address] [place] [address] Dr. Yogi Naidu Basophils/100 WBC (Bld) 1.1 % Normal 0.2-2.0 [facility] Comment on above: Performed By: #### C BC #### [facility] [address] [place] [address] Dr. Yogi Naidu EO # 0.2 103/ul Normal 0.0-0.7 [facility] Comment on above: Performed By: #### C BC #### [facility] [address] [place] [address] Dr. Yogi Naidu Eosinophils/100 WBC (Bld) 3.6 % Normal 0.9-7.0 [facility] Comment on above: Performed By: #### C BC #### [facility] [address] [place] [address] Dr. Yogi Naidu Erythrocyte distribution width (RBC) [Ratio] 14.2 % Normal 11.0-15.0 [facility] Comment on above: Performed By: #### C BC #### [facility] [address] [place] [address] Dr. Yogi Naidu Hematocrit (Bld) [Volume fraction] 45.4 % Normal 42.0-54.0 [facility] Comment on above: Performed By: #### C BC #### [facility] [address] [place] [address] Dr. Yogi Naidu Hemoglobin (Bld) [Mass/Vol] 15.0 g/dL Normal 14.0-18.0 [facility] Comment on above: Performed By: #### C BC #### [facility] [address] [place] [address] Dr. Yogi Naidu IG # 0.02 10e3/ul Normal 0.00-0.03 [facility] Comment on above: Performed By: #### C BC #### [facility] [address] [place] [address] Dr. Yogi Naidu IG % 0.4 % Normal 0.0-0.5 [facility] Comment on above: Performed By: #### C BC #### [facility] [address] [place] [address] Dr. Yogi Naidu LYMPH # 0.7 103/ul Critically low 1.2-3.8 [facility] Comment on above: Performed By: #### C BC #### [facility] [address] [place] [address] Dr. Yogi Naidu Lymphocytes/100 WBC (Bld) 13.3 % Critically low 20.5-60.0 [facility] Comment on above: Performed By: #### C BC #### [facility] [address] [place] [address] Dr. Yogi Naidu MANUAL DIFF REQ NO Normal [facility] Comment on above: Performed By: #### C BC #### [facility] [address] [place] [address] Dr. Yogi Naidu MCH (RBC) [Entitic mass] 29.7 pg Normal 25.9-34.0 [facility] Comment on above: Performed By: #### C BC #### [facility] [address] [place] [address] Dr. Yogi Naidu MCHC (RBC) [Mass/Vol] 33.0 g/dL Normal 29.9-35.2 [facility] Comment on above: Performed By: #### C BC #### [facility] [address] [place] [address] Dr. Yogi Naidu MCV (RBC) [Entitic vol] 89.9 fL Normal 80.0-94.0 [facility] Comment on above: Performed By: #### C BC #### [facility] [address] [place] [address] Dr. Yogi Naidu MONO # 0.3 103/ul Normal 0.3-0.8 [facility] Comment on above: Performed By: #### C BC #### [facility] [address] [place] [address] Dr. Yogi Naidu Monocytes/100 WBC (Bld) 5.8 % Normal 1.7-12.0 [facility] Comment on above: Performed By: #### C BC #### [facility] [address] [place] [address] Dr. Yogi Naidu NEUT # 4.1 103/ul Normal 1.4-6.5 [facility] Comment on above: Performed By: #### C BC #### [facility] [address] [address] [address] Yogi Naidu Neutrophils/100 WBC (Bld) 75.8 % Critically high 43.0-75.0 [facility] Comment on above: Performed By: #### C BC #### [facility] [address] [address] [address] Yogi Naidu Platelet mean volume (Bld) [Entitic vol] 9.3 fL Critically low 9.5-13.5 [facility] Comment on above: Performed By: #### C BC #### [facility] [address] [address] [address] Yogi Naidu PLT 174 103/ul Normal 150-450 [facility] Comment on above: Performed By: #### C BC #### [facility] [address] [place] [address] Dr. Yogi Naidu RBC 5.05 106/ul Normal 4.70-6.10 [facility] Comment on above: Performed By: #### C BC #### [facility] [address] [address] [address] Yogi Naidu WBC 5.4 103/ul Normal 4.0-11.0 [facility] Comment on above: Performed By: #### C BC #### [facility] [address] [place] [address] Dr. Yogi Naidu GGTon 10-20-2022 Gamma glutamyl transferase [Catalytic activity/Vol] 28 U/L Normal 15-85 [facility] Comment on above: Performed By: #### C MP, MG, PHOS, GGT #### [facility] [address] [place] [address] Dr. Yogi Naidu LIPID PROFILEon 10-20-2022 CHOL-HDL RATIO NORM SEE BELOW Normal [facility] Comment on above: Result Comment: 3.3 - 4.4 LOW RISK 4.4 - 7.1 AVERAGE RISK 7.1 - 11.0 MODERATE RISK >11.0 HIGH RISK Performed By: #### C MP, MG, PHOS, GGT #### [facility] [address] [address] [address] Yogi Naidu Cholesterol [Mass/Vol] 195 mg/dL Normal <=200 [facility] Comment on above: Performed By: #### C MP, MG, PHOS, GGT #### [facility] [address] [address] [address] Yogi Naidu Cholesterol in HDL [Mass/Vol] 50 mg/dL Normal 40-60 [facility] Comment on above: Performed By: #### C MP, MG, PHOS, GGT #### [facility] [address] [address] [address] Yogi Naidu Cholesterol in LDL [Mass/Vol] 131.6 mg/dL Normal [facility] Comment on above: Performed By: #### C MP, MG, PHOS, GGT #### [facility] [address] [place] [address] Dr. Yogi Naidu Cholesterol.total/Choles terol in HDL [Mass ratio] 3.9 {ratio} Normal [facility] Comment on above: Performed By: #### C MP, MG, PHOS, GGT #### [facility] [address] [place] [address] Dr. Yogi Naidu HDL NORMAL > or = 60 mg/dl - LO W CARDIOVASCULAR RISK <40 mg/dl - HIGH CARDIOVASCULAR RISK Normal [facility] Comment on above: Performed By: #### C MP, MG, PHOS, GGT #### [facility] [address] [place] [address] Dr. Yogi Naidu LDL CALC NORMAL SEE BELOW Normal [facility] Comment on above: Result Comment: <100 mg/dl OPTIMAL 100 - 129 mg/dl NEAR OR ABOVE OPTIMAL 130 - 159 mg/dl BORDERLINE HIGH 160 - 189 mg/dl HIGH >190 mg/dl VERY HIGH Performed By: #### C MP, MG, PHOS, GGT #### [facility] [address] [place] [address] Dr. Yogi Naidu Triglyceride [Mass/Vol] 67 mg/dL Normal <=150 [facility] Comment on above: Performed By: #### C MP, MG, PHOS, GGT #### [facility] [address] [place] [address] Dr. Yogi Naidu VLDL CALC 13.4 mg/dL Normal [facility] Comment on above: Performed By: #### C MP, MG, PHOS, GGT #### [facility] [address] [place] [address] Dr. Yogi Naidu MAGNESIUMon 10-20-2022 Magnesium [Mass/Vol] 1.8 mg/dL Normal 1.8-2.4 [facility] Comment on above: Performed By: #### C MP, MG, PHOS, GGT #### [facility] [address] [place] [address] Dr. Yogi Naidu PHOSPHORUSon 10-20-2022 Phosphate [Mass/Vol] 3.2 mg/dL Normal 2.6-4.7 [facility] Comment on above: Performed By: #### C MP, MG, PHOS, GGT #### [facility] [address] [place] [address] Dr. Yogi Naidu PROF 14(COMP METB)on 023 Albumin [Mass/Vol] 3.8 g/dL Normal 3.4-5.0 [facility] Comment on above: Performed By: #### C MP, MG, PHOS, GGT #### [facility] [address] [place] [address] Dr. Yogi Naidu Albumin/Globulin [Mass ratio] 1.5 {ratio} Normal [facility] Comment on above: Performed By: #### C MP, MG, PHOS, GGT #### [facility] [address] [place] [address] Dr. Yogi Naidu ALP [Catalytic activity/Vol] 64 U/L Normal 46-116 [facility] Comment on above: Performed By: #### C MP, MG, PHOS, GGT #### [facility] [address] [place] [address] Dr. Yogi Naidu ALT [Catalytic activity/Vol] 21 U/L Normal 16-63 [facility] Comment on above: Performed By: #### C MP, MG, PHOS, GGT #### [facility] [address] [place], [place] [id number] Dr. Yogi Naidu Anion gap [Moles/Vol] 12.6 mmol/L Normal Th e [facility] Comment on above: Performed By: #### C MP, MG, PHOS, GGT #### [facility] [address] [place] [address] Dr. Yogi Naidu AST [Catalytic activity/Vol] 14 U/L Critically low 15-37 [facility] Comment on above: Performed By: #### C MP, MG, PHOS, GGT #### [facility] [address] [place] [address] Dr. Yogi Naidu Bilirubin [Mass/Vol] 0.6 mg/dL Normal 0.2-1.0 [facility] Comment on above: Performed By: #### C MP, MG, PHOS, GGT #### [facility] [address] [place] [address] Dr. Yogi Naidu Calcium [Mass/Vol] 9.1 mg/dL Normal 8.5-10.1 [facility] Comment on above: Performed By: #### C MP, MG, PHOS, GGT #### [facility] [address] [place] [address] Dr. Yogi Naidu Chloride [Moles/Vol] 110 mmol/L Critically high 98-107 [facility] Comment on above: Performed By: #### C MP, MG, PHOS, GGT #### [facility] [address] [place] [address] Dr. Yogi Naidu CO2 [Moles/Vol] 27.6 mmol/L Normal 21.0-32.0 [facility] Comment on above: Performed By: #### C MP, MG, PHOS, GGT #### [facility] [address] [place] [address] Dr. Yogi Naidu Creatinine [Mass/Vol] 1.06 mg/dL Normal 0.70-1.30 [facility] Comment on above: Performed By: #### C MP, MG, PHOS, GGT #### [facility] [address] [place] [address] Dr. Yogi Naidu EGFR-AF [place] >60 Normal >=60 [facility] Comment on above: Performed By: #### C MP, MG, PHOS, GGT #### [facility] [address] [address] [address] Yogi Naidu EGFR-NON AF [place] >60 Normal >=60 [facility] Comment on above: Performed By: #### C MP, MG, PHOS, GGT #### [facility] [address] [place] [address] Dr. Yogi Naidu Globulin (S) [Mass/Vol] 2.6 g/dL Normal [facility] Comment on above: Performed By: #### C MP, MG, PHOS, GGT #### [facility] [address] [place] [address] Dr. Yogi Naidu Glucose [Mass/Vol] 106 mg/dL Normal 74-106 [facility] Comment on above: Performed By: #### C MP, MG, PHOS, GGT #### [facility] [address] [place] [address] Dr. Yogi Naidu Potassium [Moles/Vol] 4.2 mmol/L Normal 3.5-5.1 [facility] Comment on above: Performed By: #### C MP, MG, PHOS, GGT #### [facility] [address] [place] [address] Dr. Yogi Naidu Protein [Mass/Vol] 6.4 g/dL Normal 6.4-8.2 [facility] Comment on above: Performed By: #### C MP, MG, PHOS, GGT #### [facility] [address] [place] [address] Dr. Yogi Naidu Sodium [Moles/Vol] 146 mmol/L Critically high 136-145 [facility] Comment on above: Performed By: #### C MP, MG, PHOS, GGT #### [facility] [address] [place] [address] Dr. Yogi Naidu Urea nitrogen [Mass/Vol] 20.0 mg/dL Critically high 7.0-18 .0 [facility] Comment on above: Performed By: #### C MP, MG, PHOS, GGT #### [facility] [address] [place], [place] [address] Dr. Yogi Naidu Urea nitrogen/Creatinine [Mass ratio] 18.9 mg/mg Normal [facility] Comment on above: Performed By: #### C MP, MG, PHOS, GGT #### [facility] [address] [place], [place] [address] Dr. Yogi Naidu Tacrolimus Bld-ncon 2022 Tacrolimus (Bld) [Mass/Vol] 5.7 ng/mL Normal 5.0-20.0 [facility] [place] Comment on above: Order Comment: Speci men Type: BLOOD SPECIMEN Ordering Facility: [facility] Address: , , Result Comment: Noreen vidualized target levels for a given patient will depend on many factors (including the type of organ transplant, time since transplantation, concurrent medications, and other clinical factors), and should be assessed by those health care providers experienced in the management of immunosuppression. Reference ranges and high/low indicator flags are provided as general guidelines only. The treating physician must determine appropriate target levels/dosing based on the specific clinical situation. Test performed by chemiluminescent immunoassay using [employer] Al[employer] i. Performed By: #### 1 1253-2 #### [facility] CLIA [id number] [address] [place] [address] [place] Physician Orderon 10-10-2022 Physician Order [id number] 0CD:127 Normal [facility] Reportson 10-09-2022 Lab Reports [id number] 0CD:127 Normal [facility] PSA Total (Not a Screen)on 0 10-09-2022 PSA Total (Not a Screen) 48.840 ng/mL High 0.000-4.0 00 [facility] Comment on above: Result Comment: PERF ORMED BY: [facility] [address] [place] [address] PATHOLOGIST MELTER LOADER JOSE GUARDADO M.D. Performed By: #### E LASTASE STOOL, OPEXAM, STOOL NA, CALPROTECT, CELIAC #### [facility] , #### ESR, TSH3, CUSTOOL, CRP, CDT #### [facility] [address] Prostate specific Ag [Mass/v olume] in Serum or PlasmaOrdered By: Sugey Arteaga on 10-09-2022 Prostate specific Ag [Mass/Vol] 48.840 ng/mL 0.000-4.000 [facility] Screenson 10-09-2022 Screens [id number] CD:127 Normal [facility] Screens [id number] CD:127 Normal [facility] Ambulatory Visit Summaryon 0 10-08-2022 Ambulatory Visit Summary SUSAN SHERMAN :1950 Visit Date:10/08/2022 Ambulatory Visit Instructions Your Diagnosis BPH with urinary obstruction Elevated PSA Feeling of incomplete bladder emptying ED (erectile dysfunction) Tests Performed Urnls Dip Stick Auto w/o Microscopy POC [id number] Your Care Team Attending Physician - Sugey rAteaga MD Primary Care Physician - ELVIRA SCHULTZ DO Referring Physician - Sugey Arteaga MD. This Is Your Medications List Contact prescribing physician if questions or concerns Misc Prescription amlodipine aspirin (aspirin 81 mg oral tablet) metoprolol (Metoprolol tartrate 25 mg Tab) oxybutynin (oxybutynin 5 mg Tab) tacrolimus [Image Removed: STOP]Stop taking these medications tadalafil (tadalafil 5 mg oral tablet) Procedures Performed Cystoscopy (09/22/2022), Transrectal biopsy of prostate using ultrasound (US) guidance (01/22/2022), Transrectal biopsy of prostate using ultrasound (US) guidance (11/09/2019), Transrectal biopsy of prostate using ultrasound (US) guidance (05/19/2018), Appendectomy, Cardiac pacemaker, Colonoscopy, Tonsillectomy, Tx - Liver transplantation. Discharge Vitals Heart Rate (Peripheral) 98 Blood Pressure 137/96 Height 185 cm Height 73 in Weight 99 kg Weight 217.8 lb BMI 28.93 What to do next You Need to Schedule the Following Appointments Follow Up with Chandler CHAVEZ, TAMEKA Mendoza, URO When: Where: [address] [place] [phone] Medications What How Much When Instructions Unchanged amlodipine 5 Milligram By Mouth Every day Contact prescribing physician if questions or concerns Unchanged aspirin (aspirin 81 mg oral tablet) Contact prescribing physician if questions or concerns Unchanged metoprolol (Metoprolol tartrate 25 mg Tab) 1 Tablets By Mouth 2 times a day Contact prescribing physician if questions or concerns Unchanged Misc Prescription See instructions Septra 1 tablet by mouth MWF Contact prescribing physician if questions or concerns Unchanged oxybutynin (oxybutynin 5 mg Tab) 1 Tablets By Mouth At bedtime Contact prescribing physician if questions or concerns Unchanged tacrolimus 1 Milligram By Mouth 2 times a day Contact prescribing physician if questions or concerns What How Much When Why Comments Stop Taking tadalafil (tadalafil 5 mg oral tablet) 1 Tablets By Mouth Every day BPH with urinary obstruction Test Results Urnls Dip Stick Auto w/o Microscopy POC [id number] (10/08/2022) Bilirubin Urine Dipstick - Negative Blood Urine Dipstick - Negative Glucose Urine Dipstick - Trace 100 mg/dl Ketones Urine Dipstick - Negative Leukocytes Urine Dipstick - 1+ Small Nitrite Urine Dipstick - Negative Protein Urine Dipstick - Negative Specific [place] Urine Dipstick - 1.025 Urine Appearance Urine Dipstick - Clear Urine Color Urine Dipstick - Yellow Urobilinogen Urine Dipstick - Normal 0.2-1 EU/dl pH Urine Dipstick - 6 Allergies No Known Medication Allergies Problems Ongoing - Any problem that you are currently receiving treatment for. Anticoagulant long-term use BPH with urinary obstruction ED (erectile dysfunction) Elevated PSA Feeling of incomplete bladder emptying Former smoker Hepatitis C Hyperlipidemia Male hypogonadism Microscopic hematuria Nocturia PIN III (prostatic intraepithelial neoplasm III) Prostate pain Urinary retention Weak urinary stream Education Materials Transurethral Resection of the Prostate Transurethral resection of the prostate (TURP) is the removal, or resection, of part of the prostate tissue. This procedure is done to treat an enlarged prostate gland (benign prostatic hyperplasia). The goal of TURP is to remove enough prostate tissue to allow for a normal flow of urine. The procedure will allow you to empty your bladder more completely when you urinate so that you can urinate less often. In a transurethral resection, a thin telescope with a light, a camera, and an electric cutting edge (resectoscope) is passed through the urethra and into the prostate. The opening of the urethra is at the end of the penis. Tell a health care provider about: ? Any allergies you have. ? All medicines you are taking, including vitamins, herbs, eye drops, creams, and ijto-awh-xmxqduj medicines. ? Any problems you or family members have had with anesthetic medicines. ? Any bleeding problems you have. ? Any surgeries you have had. ? Any medical conditions you have. ? Any prostate infections you have had. What are the risks? Generally, this is a safe procedure. However, problems may occur, including: ? Infection. ? Bleeding. ? Allergic reactions to medicines. ? Blood in the urine (hematuria). ? Damage to nearby structures or organs. Other problems may occur, but they are rare. They include: ? Dry ejaculation, or having no semen come out during orgasm. ? Erectile dysfunction (more content not included)... Normal [facility] Patient Educationon 10-08- 23 Patient Education Urology Transurethral Resection of the Prostate Transurethral resection of the prostate (TURP) is the removal, or resection, of part of the prostate tissue. This procedure is done to treat an enlarged prostate gland (benign prostatic hyperplasia). The goal of TURP is to remove enough prostate tissue to allow for a normal flow of urine. The procedure will allow you to empty your bladder more completely when you urinate so that you can urinate less often. In a transurethral resection, a thin telescope with a light, a camera, and an electric cutting edge (resectoscope) is passed through the urethra and into the prostate. The opening of the urethra is at the end of the penis. Tell a health care provider about: ? Any allergies you have. ? All medicines you are taking, including vitamins, herbs, eye drops, creams, and dbiz-tmx-aczxycn medicines. ? Any problems you or family members have had with anesthetic medicines. ? Any bleeding problems you have. ? Any surgeries you have had. ? Any medical conditions you have. ? Any prostate infections you have had. What are the risks? Generally, this is a safe procedure. However, problems may occur, including: ? Infection. ? Bleeding. ? Allergic reactions to medicines. ? Blood in the urine (hematuria). ? Damage to nearby structures or organs. Other problems may occur, but they are rare. They include: ? Dry ejaculation, or having no semen come out during orgasm. ? Erectile dysfunction, or being unable to have or keep an erection. ? Scarring that leads to narrowing of the urethra. This narrowing may block the flow of urine. ? Inability to control when you urinate (incontinence). ? Deep vein thrombosis. This is a blood clot that can develop in your leg. ? TURP syndrome. This can happen when you lose too much sodium during or after the procedure. Some signs and symptoms of this condition include: ? Weakness. ? Headaches. ? Nausea or vomiting. ? Muscle cramping. What happens before the procedure? When to stop eating and drinking Follow instructions from your health care provider about what you may eat and drink before your procedure. These may include: ? 8 hours before your procedure ? Stop eating most foods. Do not eat meat, fried foods, or fatty foods. ? Eat only light foods, such as toast or crackers. ? All liquids are okay except energy drinks and alcohol. ? 6 hours before your procedure ? Stop eating. ? Drink only clear liquids, such as water, clear fruit juice, black coffee, plain tea, and sports drinks. ? Do not drink energy drinks or alcohol. ? 2 hours before your procedure ? Stop drinking all liquids. ? You may be allowed to take medicines with small sips of water. If you do not follow your health care provider's instructions, your procedure may be delayed or canceled. Medicines Ask your health care provider about: ? Changing or stopping your regular medicines. This is especially important if you are taking diabetes medicines or blood thinners. ? Taking medicines such as aspirin and ibuprofen. These medicines can thin your blood. Do not take these medicines unless your health care provider tells you to take them. ? Taking mrkz-jaf-zgfxwmj medicines, vitamins, herbs, and supplements. Surgery safety Ask your health care provider what steps will be taken to help prevent infection. These steps may include: ? Removing hair at the surgery site. ? Washing skin with a germ-killing soap. ? Taking antibiotic medicine. General instructions ? Do not use any products that contain nicotine or tobacco for at least 4 weeks before the procedure. These products include cigarettes, chewing tobacco, and vaping devices, such as e-cigarettes. If you need help quitting, ask your health care provider. ? If you will be going home right after the procedure, plan to have a responsible adult: ? Take you home from the hospital or clinic. You will not be allowed to drive. ? Care for you for the time you are told. What happens during the procedure? ? An IV will be inserted into one of your veins. ? You will be given one or more of the following: ? A medicine to help you relax (sedative). ? A medicine to make you fall asleep (general anesthetic). ? A medicine that is injected into your spine to numb the area below and slightly above the injection site (spinal anesthetic). ? Your legs will be placed in foot rests (stirrups) so that your legs are apart and your knees are bent. ? The resectoscope will be passed through your urethra to your prostate. ? Parts of your prostate will be resected using the cutting edge of the resectoscope. ? Fluid will be passed to rinse out the cut tissues (irrigation). ? The resectoscope will be removed. ? A small, thin tube (catheter) will be passed through your urethra and into your bladder. The catheter will drain urine into a bag outside of your body. The procedure may vary among health care (more content not included)... Normal [facility] Urology Office/Clinic Noteon 10-08-2022 Urology Office/Clinic Note Chief Complaint Follow up [facility] Staff Follow up to Cysto done 09/22/22. Previous DX: BPH w/urinary obstruction, ED, elevated PSA, feeling of incomplete bladder emptying, male hypogonadism, microscopic hematuria, nocturia, PIN 111, prostate pain, urinary retention, weak urinary stream. Pt is currently taking Tadalafil 5mg at bedtime, Oxybutynin 5mg at bedtime. Pt states he is still having a hard time urinating. Pt doesn't think that the Oxybutynin is working very well. IPSS is 19 Dysuria: denies pain or burning Incomplete bladder emptying: sometimes Hematuria: denies visible blood Frequency: every 2 hours Urgency: denies Nocturia: yes 3x a night Stream: sometimes has hesitancy, unable to urinate at night, weak stream, yes sometimes has a start/stop stream Leaking: denies Post void dripping: denies Wearing pads/ Depends: denies Urge incontinence: denies Stress incontinence: denies Incontinence without Sensory Awareness: denies Abdominal pain: denies Flank pain: denies Sexual complaints: denies History of Present Illness I have reviewed and verified the staff HPI to be accurate for this encounter. Review of Systems PHQ Score Initial Depression Screen Score: 0 ROS - Provider Constitutional: denies weight loss, denies hot flashes. Eyes: denies eye problems. Gastrointestinal: denies nausea, denies vomiting. Cardiovascular: denies chest pain or angina. Integumentary: no dryness Musculoskeletal: denies musculoskeletal symptoms. ENMT: denies otolaryngeal symptoms. Respiratory: no shortness of breath. Heme/Lymph: denies easy bleeding tendency, denies easy bruising tendency. Psychiatric: no confusion, no anxiety. Genitourinary: see HPI Physical Exam Vitals & Measurements HR: 98(Peripheral) BP: 137/96 HT: 73 in HT: 185 cm WT: 99 kg WT: 217.8 lb BMI: 28.93 General Appearance: alert, no distress, well nourished, well developed male. Genitourinary: Flank Pain: none. Bladder: nonpalpable. Assessment/Plan 1. BPH with urinary obstruction (N40.1: Benign prostatic hyperplasia with lower urinary tract symptoms) Cysto 09/22/2022 showed moderate to severe trilobar hypertrophy with global intravesical protrusion including median lobe without sulcus 2 cm. Moderate bilobar, severe near bladder neck. R>L Oxybutynin 5mg at bedtime. Pt never started Cialis 5mg - again does not recall our conversations about it and did not recheck Previously failed Flomax due to lightheadedness. IPSS 24 increased from last OV 20. Understandable given only on oxybutynin alone -Educated on Kegel exercises to help control Urgency. Information pamphlet given IO. -Timed voids regardless of sensation -Will start terazosin 5mg at bedtime. (will not send to pharmacy until pt calls to confirm, pt thinks he still has 4 bottles at home) -Continue Oxybutynin 5mg at bedtime. -If not improvement with dual therapy, will re-address cialis -Further tx based on #2 workup 2. Elevated PSA (R97.20: Elevated prostate specific antigen [PSA]) PSA 08/19/22 - 56.46 12/21/21 - 29.06 05/20/21 - 20.30 07/16/20 - 30.52 05/24/20 - 51.51 Confirm MDX October 2020 42% likelihood of prostate cancer, 20% GL 7 or greater Pt has had 4 NEG TRUS prostate Bx: 03/2017, 05/2018 - HGPIN 1/12 cores L base, 10/2019, 01/22/2022 (vol 84-92 ml per TRUS report) Bone scan May 2021 neg for mets Given peak PSA 51 in 2019, PSA not significant increase. -Scheduled for MRI Pacemaker check at [facility] on 10/09/2022 at 10:00am If ok, proceed with MRI prostate and discuss proceeding with MRI fusion TP biopsy. 3. Feeling of incomplete bladder emptying (R39.14: Feeling of incomplete bladder emptying) PVR 48cc improved from last OV (71cc) -See #1 4. ED (erectile dysfunction) (N52.9: Male erectile dysfunction, unspecified) KEVIN 1 Pt is not currently on any medication. Declines further treatment at this time. Not a priority Follow-up With When Contact Information Chandler CHAVEZ, Sugey Cummins, URL, URO [address] [place] [phone] Additional Instructions: Pt will f/u after MRI Pacemaker check Patient Education Transurethral Resection of the Prostate Anny Lopez , personally scribed for Dr. Arteaga on 10/08/2022 08:47:05. . Documentation recorded by the scribe, Anny Hogan, accurately reflects the services(s) I performed and decisions made by me. Authenticated by Dr. Arteaga on 10/08/2022 08:54:23. Problem List/Past Medical History Ongoing Anticoagulant long-term use BPH with urinary obstruction ED (erectile dysfunction) Elevated PSA Feeling of incomplete bladder emptying Former smoker Hepatitis C Hyperlipidemia Male hypogonadism Microscopic hematuria Nocturia PIN III (prostatic intraepithelial neoplasm III) Prostate pain Urinary retention Weak urinary stream Historical No qualifying data Procedure/Surgical History Cystoscopy (09/22/2022), Transrectal biopsy of (more content not included)... Normal [facility] Comment on above: Result Comment: Elec tronically Signed By: Sugey Arteaga MD\.br\Date and Time Signed: 10/08/22 08:54 EDT\.br\Electronically Co-Signed By: Anny Hogan MA\.br\Date and Time Co-Signed: 10/08/22 08:48 EDT CULTURE URINEon 09-29-2022 CULTURE URINE Isolate 1 Enterococcus faecalis >100,000 cfu/mL of ORGANISM 1 Enterococcus faecalis ANTIBIOTIC M.I.C RX STATUS Beta-Lactamase Neg NEG F Benzylpenicillin 2 S F Ampicillin <=2 S F Gentamicin High Level (synergy) SYN-S S F Streptomycin High Level (synergy) SYN-S S F Ciprofloxacin <=0.5 S F Levofloxacin 1 S F Quinupristin/Dalfopris tin 4 R F Linezolid 1 S F Vancomycin 1 S F Tetracycline <=1 S F Nitrofurantoin <=16 S F Normal [facility] Comment on above: Performed By: #### C MP, MG, PHOS, GGT #### [facility] [address] [place] [address] Dr. Yogi Naidu ER URINE PROFILEon 3 Bilirubin Ql (U) Negative Normal NEGATIVE [facility] Comment on above: Performed By: #### DASH CULVERRO #### [facility] [address] [place] [address] Dr. Yogi Naidu Clarity (U) SL CLOUDY Abnormal CLEAR [facility] Comment on above: Performed By: #### SONU CULVERICRO #### [facility] [address] [place] [address] Dr. Yogi Naidu Color (U) LT. YELLOW Normal YELLOW [facility] Comment on above: Performed By: #### DASH CULVERRO #### [facility] [address] [place] [address] Dr. Yogi Naiud ERUAHD A micrscopic examination will be performed if indicated. Normal [facility] Comment on above: Performed By: #### DASH CULVERRO #### [facility] [address] [place] [address] Dr. Yogi Naidu Glucose Ql (U) Negative Normal NEGATIVE [facility] Comment on above: Performed By: #### DASH CULVERRO #### [facility] [address] [place] [address] Dr. Yogi Naidu Hemoglobin Ql (U) Negative Normal NEGATIVE [facility] Comment on above: Performed By: #### Vesta DE OLIVEIRA UMICRO #### [facility] [address] [place] [address] Dr. Yogi Naidu Ketones Ql (U) 15 mg/dl Abnormal NEGATIVE [facility] Comment on above: Performed By: #### Vesta DE OLIVEIRA UMICRO #### [facility] [address] [place] [address] Dr. Yogi Naidu LEUKOCYTES MODERATE Abnormal NEGATIVE [facility] Comment on above: Performed By: #### Vesta DE OLIVEIRA UMICRO #### [facility] [address] [place] [address] Dr. Yogi Naidu Nitrite Ql (U) Negative Normal NEGATIVE [facility] Comment on above: Performed By: #### Vesta DE OLIVEIRA UMICRO #### [facility] [address] [place] [address] Dr. Yogi Naidu pH (U) 5.5 [pH] Normal 5-9 [facility] Comment on above: Performed By: #### Vesta DE OLIVEIRA UMICRO #### [facility] [address] [place] [address] Dr. Yogi Naidu SPEC GRAVITY 1.030 Abnormal 1.005-<=1.02 5 [facility] Comment on above: Performed By: #### Vesta DE OLIVEIRA UMICRO #### [facility] [address] [place] [address] Dr. Yogi Naidu UA PROTEIN TRACE Normal NEGATIVE/ TRACE [facility] Comment on above: Performed By: #### Vesta DE OLIVEIRA UMICRO #### [facility] [address] [place] [address] Dr. Yogi Naidu UR MICRO IND INDICATED Normal [facility] Comment on above: Performed By: #### E RUR, UMICRO #### [facility] [address] [place] [address] Dr. Yogi Naidu Urobilinogen Qn (U) 0.2 {Kt'U}/dL Normal 0.2 - 1. 0 [facility] Comment on above: Performed By: #### E YENYR, UMICRO #### [facility] [address] [place] [address] Dr. Yogi Naidu URINE MICROSCOPIC ONLYon BACTERIA SMALL Abnormal NONE SEEN [facility] Comment on above: Performed By: #### E YENYR, UMICRO #### [facility] [address] [place] [address] Dr. Yogi Naidu Bacteria identified Cx Nom (U) CX ALREADY ORDERED Normal [facility] Comment on above: Performed By: #### E ALVINO, UMICRO #### [facility] [address] [place] [address] Dr. Yogi Naidu CAST NONE SEEN Normal NONE SEEN [facility] Comment on above: Performed By: #### Vesta DE OLIVEIRA, UMICRO #### [facility] [address] [place] [address] Dr. Yogi Naidu Crystals LM Nom (Urine sed) NONE SEEN Normal NONE SEEN [facility] Comment on above: Performed By: #### Vesta DE OLIVEIRA, UMICRO #### [facility] [address] [place] [address] Dr. Yogi Naidu Epithelial cells LM Ql (Urine sed) NONE SEEN Normal NONE SEEN /RARE [facility] Comment on above: Performed By: #### E YENYR, UMICRO #### [facility] [address] [place] [address] Dr. Yogi Naidu MUCOUS NONE SEEN Normal NONE SEEN [facility] Comment on above: Performed By: #### E YENYR, UMICRO #### [facility] [address] [place] [address] Dr. Yogi Naidu RBC 0-2 Normal 0-2 [facility] Comment on above: Performed By: #### Vesta DE OLIVEIRA, UMICRO #### [facility] [address] [address] [address] Yogi Naidu WBC 50-75 Abnormal NONE SEEN [facility] Comment on above: Performed By: #### E MERLE DE OLIVEIRA #### [facility] [address] [address] [address] Yogi Naidu Coding Summary.on 09-23-2022 Coding Summary. CD:[id number] Ww +PGhlYWQ+JQ8YBIEfH29xw JAcfG5aI3UEUGfWOhopSXR BIZmCJxJlynLeVB1kuNMxT XJu IC8+NC1pMOUmYvrxsTJga2 P9mQJ4P82hjw1pZQojxIK1 PMShCqJjhvnoh2sugIq6RA cuNmluOyBt BDDluM95OHO9aV81Jb08jB AwiZNxs9jyqWf8LfFbNHHb UIC1kJsoYSilh0RzYGNnE4 0zqCJgf0J1 UJSmiSbcwYSrEjGveIM8tB 1pVWclinnlt8zimxzmRbf6 do58kEZzw8H9sQA5W4Snpk R8USFsqIYr QjnwwRLWjD9ronmte5hvqo xbEuQtNEAaHAg0KIt1XMUb fCibXaJtNT21OEN2CCOjbf JlQ2NjYAMb sQygTyH0n0Y2Sq5DQ6PEOs rzY6PFPZBULQbaxXM+PC90 my91L3PiBebvTpo6ZCBtPO N5sCN0hP5q CJRlRVftd9B3rLT0F1Mfjv Gyhb7ul1qbQTTnYAwjJ58r iMRmy0N1KQVrdKR8ETQfqD czJyBteM79 Oyc+YGSedMluj0StErzbz7 uzd6htoZz7YzokQTQeajBz wJjuWME4q9SqZw6yDTTivP S1mGF1sH0a EfEfIsH0HVcnH942GtMrwS WeNnbjA80oX0GqfRV+PHRy Nmi1RBEroQirHK0uH0WxVD RpbmctbGVm pWzaIU6yDGTmlyehWAXpuP 8kQHXeZ8c7UoMvNcE8KFwb H6DyZCFnejqlCg81wT9sTl AsJnK6KJgv B9GyqwJ4QNUygUBoWCrnUN J5Q86yg8A4OYOiNWRkBLF1 qYD8sA5jnLazfzogwTScvY sgdmVydGlj WXsaFSkyR217FWYczWajLu NvZGluZyBEYXRlOiAgMDQv MTEvMjAyMzwvdGQ+PHRkIH J8jLtsLRYg gZIaANkdLb5inMuadSzpOO 7nAINdfgvtSNIojX6aEHEf dPYmlPsaDS0gVWAzotvit4 38LyCqRJL2 FLTniYQrK2HmiR8cWwRcGC IxEDLdN5RfpHHqWQziL470 VSfdRrJ6UPOvtzRqA2XcCD FsaWduOiB0 t1X4Xh3Fv0BxzmqyZ2YtdA TuSgGsFoxkWCa2V2PkViky dHI+SY14BFTwSX77QYg2BK B4yDhnAAiw ZOZrF0ShyX2aXyLfVLIyPF RkOyc+PHRhYmxlIHdpZHRo SZivGPZaEvWirGscGD5iJc 9yZGVyLWNv zVrpuGZiFbYsg1hyPEEeVJ ryZM8sfUkxB1WxxAK7DJOx o4o3Jz75K73wN2NfmNS+PG YwyYT7yHK4 zS2eCbBbFzY4HOflD120Bb TkoCBiNkgol9kwk5ldhCc0 WuE5EGAilbBsxNgbZIL6y7 BuUh80N69s IHdpZHRoPSIxNSUiIHZhbG abon3prN0yVq5+PGNvbCB3 mNX5lL2yZbHqFoW0BKogY1 49InRvcCIv Zqpgi6atb6xrgQu4NbYdXW WotkTupAbrODK1x5RgXz81 W7VqqBbjd8QaRar0rg69bP Yxk6R0iLF2 H1SfHVUatwoqqCUycQvzVW 6uROZtbqjpZQAoeT7hLOPb C3r4XsUwJxL2GBpeY4Ojmh S2DVStjQRl YZQntSIRwS7mbekvk1pgno coWmWfJQMeNVf2RWq4HWZu xDbwVjNsZZM9JfI7TDP6mJ WvmK7kwDqn gdmvwI0oWwt+MVH0pCEzkF NGZS6xQepsuAK+PHRkIHN0 iXgoQRtrDLCdkT8oOIYoO0 l1GnQhRnO0 ULeeF0WtehL3VRWzjZTmKT DyyYUHxE2rueayd3ehvroo YmCyLLInZTz2IRu5DGDwdA duOiBsZWZ0 DpA8MJI7qEKneR6zlEmfrt bqtG0zFjw+QmlydGggRGF0 ZSk2Y5UpDkb3WHCrfAkvRI 0ncGFkZGlu Jm9ltXgqxOntFH8tGSWtxi vaj138JgMue9eiZGXalAZr QGlkLCI0L33fx4O0TYLxRF QsDKL3fEP1 lS5eyLelxwjlaFLztXqyad JahUwbVBddTAjbW214ECZa wHpjOpDzDGx8J2DqRcr1QN XauRyiRB9v eGNfJQmcQw1gwOwzpXgdRZ 9lJXEzdfwjf960QwMni0kp PQJniLJuNDgcKBJ8X28se6 K1NUFlNHMq SGV5sIQ4mX4owZqggjsalR VmdDsgdmVydGljYWwtYWxp W283OGZgjPgdHlQqoEq0W5 SvJmi3VRGs zDbhKM4abJLzNXctQv3rsV kxtMgzXW6hZPNceuofz776 YnQgc1oxIZMgkVInVRrdVA I4W38gy2D1 FYRyYUMpWUX4sFK0sD1dsO lnbjogbGVmdDsgdmVydGlj PFltHIwfK966FJDkiMrnWr BhdGllbnQg LUotJFt7D9UkLzovoXU+PC 28OKXyKU72mPUunUWhb8sa lIz7WgDxSWUrEIP7cLxgCY vkw0XcQEMb F65ecDGwj4W6KGBxjLrpyQ AxNqOwpCW3lD6hPNrxncit g4ubvhbjInanb6pitr51mW 23I13zBRzv ZHRoPSIzMCUiIHZhbGlnbj 8mzM6zMe6+DBFplUS0uOO5 oK5gIHPwWcM8ZSkzH348Yo RvcCIvPjxj b7iyv9lzyWk9CyX3TDYylm VbeWueGGX4v0VyBz04C92d IHdpZHRoPSIyMCUiIHZhbG wbgs9pmL8n Ii8+FIMiuBD9vMP8jD2kZv UfIhX8HStfT116UtMtpCHr XpicX55zG3CsrKV+PHRyPj g9FXQryZtj KH9ueZBsQTvvDj6iHBA3Kp SlGkMhUPijR2GcBQYoekff bffbrUA8DVXxEETelG95Nx 9udDogMTBw qQBBfC3xmeetv0rsvzojSh CuQCEuXPu3DGr7KDCkvDwp CcGzUPG0NxN5RMT2qMQxhW 1hbGlnbjog iH8gN8VnPDEjtlurDv20fB 9qTiPvTwK6XEhsDcv+QVJQ QCDUXOLEYLIEHP92WE58jJ Kjl1V3tGC0 P8EnLCQbqhptidnngTF8KS McSBJgkL61nDJgFWrlIu6p x5E4e482NNIaGQLkwT24Mf 9udDogMTBw cOLRyQ6blxgsa2nqnzgjTu XmDNTyEYl4NBs8EXCwpOml CbIiPMK8LcT7DOM6qXNqmP 1hbGlnbjog rY3gHcy+HDpvRzggSGd3Xt wvdGQ+WHBtNUN8cClbYVao EHZhdK3uANJmJ3u1IeNlAg U2ICchY2Cm BAZxewdrEu01eH8eYfTaLa R5VTpuR5NgjaR4GNFemMLm HFrpGPO2L07pr4Z8IAMoCS TyHYO3nMH5 xP6xrFdlutzheCQkuGblqe CcnWhyKLdfAGeqT642BUKk yOynHucuRWmsLBYpNP12HZ 57lHApq2C0 vRE5L5QaOECbnkfytdrtrE J3MAFgBSAhaD65wMOcZMcx Oc3od6O3q314IAAnMBXgoW 93Sv1apSxl ZRJrxCEGeW3hfxcug3ecam hgMgXxCLWzJAv9KUi7KUYe qBuvNzCwTAV7XbV5LRJ1uF FtwV5jkRus isejjV8mNdv+TWFsZTwvdG Q+BHBvGPF2pUnlZFmyHDBo tG6iATMxE5s5OfNxLjS4HQ apY2RcTGDa bbjxQt43wZ1pRaPqLcS4TF feI8StleI7ILJsuWGbKZxr YSF3I32bw0X5RJXhGMFsRY J8bVS7eA8t bGlnbjogbGVmdDsgdmVydG zvYXagQQfvM095TYEpnYay Go81pQAiuNnrheO6W6OaUr wvdHI+PC90 UZPbMF79cIXmzVRve7djmT v6BjEwCJGgWZW4gPjjSVhj o8OmTVQrX37flNBty6E4VB NvbGxhcHNl CtSotHU4rK0fSRhqrtrze7 qmhoacXnzoc0xzkx38yA35 O04bMTfaWMKdULJxNEDnFA SrsYcdwk4w tZ7pHx7+XOMncGW1eWO1aU 4xGcTyWkF9UWapM299OaOd oPGqBoukt6eqm3ausMu6Eg IwJSIgdmFs uImgRTZ8x0PiOp98A27nCC dpZHRoPSIyMCUiIHZhbGln dd7glQ1mDx7+OC2ca0cioc 78uM74pAV+ JIXkLQP0gAcoRJzkQPPscU 5oKAveTuB2JBQvLwRbpH60 sTReMHefSo6kkDsgfYqlQS 4wNTBpbjtm p514GoGrr9ggGZIszVQaWO voEPJ3P48tm2C7CCWtPRXr MES0jYP4iA7sgJsnykxvtH VmdDsgdmVy hVxsZEegYDocG892YBBkdH niCbTbbALxK5lzkaLPKU8z OjwvdGQ+UEDbAGW1mJwoKG nnXXKidZ6q TJEmS7z3VnAnZeX6SJvqE1 AjosI9KKYtcJWoXFFtoSYJ kR1vgidio6rjkumrRhUcAD GyRUh4TGn5 SDYryWghGqPmZEU7EhY3OF B5fTYycM9itVftvzgqtA9o Oyc+RklOOjwvdGQ+PHRkIH H8hXdvMOgy OXIzyV0xZCAuM7n8OxZhCp L4ODslW3MhlqC8OHOmtDJh TZDuzCKBhF1jcdbtz7cokt ogIzAwMDAw ETd3UAl2TXGyfFniAuCkUZ M0GqA1DLS3cFYlzG9tfOam zavmaB6hOqt+TVJOOjwvdG Q+PHRkIHN0 pGvdSWsvZLBgbD2nDYYtE1 h5MbMoBeK0TQkrD6GgxeH0 LGTpyANyOUWibEPZkD9lgo lxq1rxybez KtAjVPReKBh3OKb5HRNsrB nbRgVcRLN2TxW7SQY1xRDx gO9arUdsqnjwvC3vMxe+UG W1FWL3XA59 GD05O9HgBrjywWOigMQ+PH RhYmxlIHdpZHRoPScxMDAl RfSpwVkvLB6zQg3lTTJhHE NvbGxhcHNl RbZlw4rz (more content not included)... Normal [facility] Consent for Procedure/Surger yon 09-22-2022 Consent for Procedure/Surgery [id number]#1. 00CD:127 Normal [facility] Consent for Treatmenton 09-13 Consent for Treatment [id number]#1.0 0CD:127 Normal [facility] Inpatient Patient Summaryon 09-22-2022 Inpatient Patient Summary [place] [id number] Clinical Summary Person Information Name: SUSAN SHERMAN Age: 72 Years : 1950 Sex: Male PCP: ELVIRA SCHULTZ DO Marital Status: Race: White Ethnicity: Non- or Language: Japanese Visit Id: Visit Reason: BPH WITH LUTS Speciality: Acuity: Enc Type: Outpatient Med Service: Surgery Arrival: 09/22/2022 07:09:42 Discharge: Dispo Type: Address: [facility] [id number] Provider Notes: Diagnosis: BPH with urinary obstruction; Other obstructive and reflux uropathy Problems Active ED (erectile dysfunction) Feeling of incomplete bladder emptying BPH with urinary obstruction Elevated PSA Former smoker Urinary retention Anticoagulant long-term use Prostate pain PIN III (prostatic intraepithelial neoplasm III) Weak urinary stream Nocturia Microscopic hematuria Hyperlipidemia Male hypogonadism Hepatitis C Smoking Status: Functional Status: Sensory Deficits: History of Falls: Mobility Assistance Prior to Admission: ADLs: Current Level of Assistance for Self-Care/Mobility: Cognitive Status: Allergies No Known Medication Allergies Laboratory or Other Results This Visit (last charted value for your 09/22/2022 visit) No Laboratory or Other Results This Visit Measurements: Height: 185 cm Weight: Blood Pressure: Not Valued / Not Valued BMI: Procedures No Procedures Documented Immunizations No Immunizations Documented This Visit Final Med List: amlodipine 5 Milligram By Mouth every day. aspirin (aspirin 81 mg oral tablet) metoprolol (Metoprolol tartrate 25 mg Tab) 1 Tablets By Mouth 2 times a day. Misc Prescription Septra 1 tablet by mouth MWF. oxybutynin (oxybutynin 5 mg Tab) 1 Tablets By Mouth at bedtime. Refills: 11. tacrolimus 1 Milligram By Mouth 2 times a day. tadalafil (tadalafil 5 mg oral tablet) 1 Tablets By Mouth every day. Refills: 11. Care Team Members: Attending Physician: Sugey Arteaga MD Consulting Physician: Referring Physician: Sugey Arteaga MD Follow up: With: Address: When: Sugey Arteaga [address], [place] [id number] [phone] Business (1) [address], [address], [facility] [address] [place] [id number] [phone] Business (1) Comments: Office to schedule follow up in 2-4 wks to review MRI prostate and BPH procedures Type Location Start [place] [facility] [place] 10/08/2022 8:00 AM 10/08/2022 8:15 AM Confirmed Patient Education Information: EU - Cystoscopy Discharge Instructions (CUSTOM) Normal [facility] IntraOperative Documentson 0 09-22-2022 IntraOperative Documents [id number]#1. 00CD:127 Normal [facility] Main OR Intraoperative Recor don 09-22-2022 Main OR Intraoperative Record IntraOp Document Type FTURO Summary Primary Physician: Sugey Arteaga MD Finalized Date/Time: 09/22/22 08:15:09 Pt. Name: SUSAN SHERMAN Kenny AdamsB./Sex: 1950 Male Med Rec #: [id number] Physician: Sugey Arteaga MD Financial #: [id number] Pt. Type: O Room/Bed: / Admit/Disch: 09/22/22 07:09:42 - Institution: Case Times FTURO Entry 1 Patient Times In Room 09/22/22 08:06:00 Out Room 09/22/22 08:15:00 Procedure Times Start 09/22/22 08:09:00 Stop 09/22/22 08:11:00 Anesthesia Times Last Modified By: Carline Reina RN 09/22/22 08:15:05 Case Attendance FTURO Entry 1 Entry 2 Entry 3 Case Attendee Sugey Arteaga MD [employer], Carline Oshea RN Role Performed Surgeon - Primary Scrub - Primary Scaffold Setter - Primary Time In 09/22/22 08:06:00 09/22/22 08:06:00 09/22/22 08:06:00 Time Out 09/22/22 08:15:00 09/22/22 08:15:00 09/22/22 08:15:00 Procedure CYSTOSCOPY LOCAL(.) CYSTOSCOPY LOCAL(.) CYSTOSCOPY LOCAL(.) Comments Last Modified By: Carline Reina RN, RN, Kimberly Y Barbee RN, Kimberly Y 09/22/22 08:15:06 09/22/22 08:15:06 09/22/22 08:15:06 Surgical Procedures FTURO Entry 1 Procedure Description Procedure CYSTOSCOPY LOCAL Modifiers . Surgeon Description CYSTOSCOPY LOCAL Primary Procedure Yes Primary Surgeon Sugey Arteaga MD Start 09/22/22 08:09:00 Stop 09/22/22 08:11:00 Anesthesia Type Local Surgical Service Urology Wound Class 2 - Clean-Contaminated Last Modified By: Carline Reina RN 09/22/22 08:11:53 General Case Data FTURO Pre-Care Text: Classifies surgical wound, implements aseptic technique, initiates traffic control Entry 1 Case Information OR URO 1 FT Case Level None Wound Class 2 - Clean-Contaminated Specialty Urology Preop Diagnosis BPH WITH LUTS Postop Same As Preop Yes Postop Diagnosis BPH WITH LUTS Outcomes Met? Yes Last Modified By: Carline Reina RN 09/22/22 07:35:14 Post-Care Text: The patient is free from signs and symptoms of infection EU IntraOp - FTURO Pre-Care Text: Implements protective measures prior to operative or invasive procedure, confirms identity before the operative or invasive procedure, verifies operative procedure, surgical site, and laterality Entry 1 EU Perioperative Protocols Procedure(s) CYSTOSCOPY LOCAL(.) Patient Identity Birthday, ID Band Verified (select at Check, Patient least 2): Participation Consents / H and P HandP, Surgery/Procedure Operative Site N/A Verified Consent Marking Verified Surgical Site Yes Laterality Verified n/a Verified Procedure Verified Yes Correct Patient Yes Position Verified Availability Equipment, Medication Time Out Sugey Arteaga MD, Verified (If Participants Maya Yanez CST, Applicable) Carline Reina RN Time Out Complete 09/22/22 08:07:00 Allergies Reviewed? Yes Allergies Reviewed Self/Patient With Body Position Supine Prep Area PENIS Prep Agents Betadine Solution Skin. Condition Dry, Warm, Unable to Description UNABLE TO VISUALIZEDUE Visualize TO PATIENT PARTIALLY CLOTHED Vitals - EU Blood Pressure 139/83 Pulse 70 bpm Respirations 18 br/min SPO2 98 % EBL 0 IandO - EU Total Intake 0 mL Total Output 0 mL Outcomes Met? Yes Last Modified By: Carline Reina RN 09/22/22 08:08:48 Post-Care Text: The patient is free from signs and symptoms of injury caused by extraneous objects Sign Out FTURO Entry 1 Before Patient Leaves OR Nurse verbally Yes Nurse verbally Yes confirms with the confirms with the team the name of team that the procedure(s) instrument, sponge, recorded and needle counts are correct (or N/A) Nurse verbally n/a Nurse verbally Yes confirms with the confirms with the team how the team whether there specimen is labeled are any equipment (including patient problems to be name), if applicable addressed Sign Out Complete 09/22/22 08:11:00 Last Modified By: Carline Reina RN 09/22/22 08:11:50 Case Comments Finalized By: Carline Reina RN Document Signatures Signed By: Carline Reina RN 09/22/22 08:15 Normal [facility] Main OR Preoperative Recordo n 09-22-2022 Main OR Preoperative Record Holding Area Document Type FTURO Summary Primary Physician: Sugey Arteaga MD Finalized Date/Time: 09/22/22 07:34:55 Pt. Name: SUSAN SHERMAN /Sex: 1950 Male Med Rec #: [id number] Physician: Sugey Arteaga MD Financial #: [id number] Pt. Type: O Room/Bed: / Admit/Disch: 09/22/22 07:09:42 - Institution: Case Times Holding FTURO Pre-Care Text: Verifies consent for planned procedure, identifies individual values and wishes concerning care, includes family members in perioperative teaching Secures patient's records' belongings, and valuables, maintains patient's dignity and privacy, and maintains patient confidentiality Entry 1 In Holding 09/22/22 07:16:00 Outcomes Met? Yes Last Modified By: Ceci Dash LPN 09/22/22 07:16:36 Post-Care Text: The patient participates in decisions affecting his or her perioperative plan of care The patient's right to privacy is maintained Surgery Checklist FTURO Entry 1 Patient Birthday, Patient Procedure History and Physical, Identification: Participation Verification: Surgical Consent, With Patient NPO after Midnight: No Date/Time: 09/22/22 07:16:00 Personal Items: Dentures, Glasses, Personal Items clothes Pacemaker Comment: Limitations: na Complaints of Pain: No Pain Comment: na Skin Integrity Intact, [place], Warm, & Dry Vitals - EU Blood Pressure 139/83 Pulse 70 bpm Respirations 18 br/min SPO2 98 % RN Reviewed Yes Last Modified By: Carline Reina RN 09/22/22 07:34:53 General Comments: temp:36.4 Finalized By: Carline Reina RN Document Signatures Signed By: Ceci Dash LPN 09/22/22 07:21 Carline Reina RN 09/22/22 07:34 Normal [facility] Operative Reporton Operative Report Patient: SUSAN SHERMAN Age: 72 years Sex: Male : 1950 Associated Diagnoses: None Author: Sugey Arteaga MD Procedure Operative Information Details: Date/ Time: 09/22/2022 08:16:00. Pre-Op Dx: BPH with urinary obstruction (PCA95-CE N40.1, Discharge, Medical). Post-Op Dx: Same. Anesthesia Type: Local. Procedure: Local Cystoscopy. Complications: None. Risks/Benefits/Informe d Consent: Surgical risks, benefits, details of the procedure have been explained to the patient, Full informed consent has been obtained. Intraoperative Information Prepped: Patient is brought back to the endoscopy suite, Patient is placed in supine position, Patient prepped in the usual fashion with Betadine solution, 2% Xylocaine Jelly is placed per Urethra, After waiting several minutes the Cystoscope is introduced. The Urethra is: Mildly tight meatus, required gently pressure of scope to insert. The Prostatic Urethra is: Moderate to severe trilobar hypertrophy with global intravesical protrusion ( 2cm) including median lobe without sulcus. Moderate bilobar, severe near bladder neck, R>L. . The Bladder is: Normal, Trabeculated Moderate (2), No bladder tumors, lesions or foreign bodies. The ureteral orifices: Show efflux of clear urine. Devices Implanted: None. Removal: Cystoscope is removed, The patient tolerated it well. Postoperative Information Discharge: Follow up arranged. Higher prostate size/shape for minimally invasive outlet procedures. Will f/u prostate MRI and determine next steps at f/u in 2-4 wks. Pt to check if taking tadalafil at home . Normal [facility] Comment on above: Result Comment: Elec tronically Signed By: Sugey Arteaga MD\.br\Date and Time Signed: 09/22/22 08:20 EDT Outpatient Surgery Discharge Instructionon 09-22-2022 Outpatient Surgery Discharge Instruction [address] [address] Patient Discharge Instructions PERSON INFORMATION Name: SUSAN SHERMAN Date of : 1950 Current Date: 09/22/2022 08:38:02 PHYSICIANS Admitting Physician: Lue MD, Sugey M. Comment: Discharge Diagnosis: BPH with urinary obstruction; Other obstructive and reflux uropathy SUSAN SHERMAN has been given the following list of follow-up instructions, prescriptions, and patient education materials: IF UNABLE TO CONTACT YOUR PHYSICIAN AND YOU FEEL IT IS AN EMERGENCY, GO TO THE NEAREST EMERGENCY ROOM OR CALL 911 Follow up: With: Address: When: Sugey Arteaga [address], [place] [phone] Business (1) [address], [address], [facility] [address] [place] [phone] Business (1) Comments: Office to schedule follow up in 2-4 wks to review MRI prostate and BPH procedures [facility]00 AM 10/08/2022 8:15 AM Confirmed Comment: PATIENT EDUCATION INFORMATION Instructions: Cystoscopy ? Voiding after the procedure: there may be some pain, burning, urgency, frequency and blood tinged urine following the procedure. These symptoms usually resolve within 2-5 days. Drink the amount of fluid it takes to keep the urine pink to yellow or clear in color. Drinking enough water and fluids will help to ease any discomfort after your procedure. ? If you are having problems that seem out of the ordinary, please call. ? If unable to contact your physician and you feel it is an emergency, go to the nearest emergency room or call 911 ? Diet ? you may resume your normal diet. ? Activity ? you may resume your normal activities ? Call if you have a fever over 100 degrees. GEORGE Lopez DAVID L, have received the attached patient education materials/instructions and have verbalized understanding: May we do a follow up call? Yes No I was present when discharge instructions were given Patient Signature Date Clinican/Nurse Signature ___ Date You may receive a survey from [employer] Morley asking you to rate your care experience. Your feedback is important and will help us understand what we do well and how we can improve the quality of care we provide to you, your loved ones and our community. It?s an honor to serve you. Thank you for choosing [facility] Normal [facility] Consenton 09-17-2022 Consent [id number]#1. 00CD:127 Normal [facility] Registrationon 09-17-2022 Registration [id number]#1. 00CD:127 Normal [facility] Screenson 09-11-2022 Screens [id number]#1. 00CD:127 Normal [facility] Screens [id number]#1. 00CD:127 Normal [facility] Patient Educationon 09-11-19 23 Patient Education Oncology Prostate-Specific Antigen Test Why am I having this test? The prostate-specific antigen (PSA) test is a screening test for prostate cancer. It can identify early signs of prostate cancer, which may allow for more effective treatment. Your health care provider may recommend that you have a PSA test starting at age 40 or that you have one earlier or later, depending on your risk factors for prostate cancer. You may also have a PSA test: ? To monitor treatment of prostate cancer. ? To check whether prostate cancer has returned after treatment. ? If you have signs of other conditions that can affect PSA levels, such as: ? An enlarged prostate that is not caused by cancer (benign prostatic hyperplasia, BPH). This condition is very common in older men. ? A prostate infection. What is being tested? This test measures the amount of PSA in your blood. PSA is a protein that is made in the prostate. The prostate naturally produces more PSA as you age, but very high levels may be a sign of a medical condition. What kind of sample is taken? A blood sample is required for this test. It is usually collected by inserting a needle into a blood vessel or by sticking a finger with a small needle. Blood for this test should be drawn before having an exam of the prostate. How do I prepare for this test? Do not ejaculate starting 24 hours before your test, or as long as told by your health care provider. Tell a health care provider about: ? Any allergies you have. ? All medicines you are taking, including vitamins, herbs, eye drops, creams, and tsyz-nnd-rppumqz medicines. This also includes: ? Medicines to assist with hair growth, such as finasteride. ? Any recent exposure to a medicine called diethylstilbestrol. ? Any blood disorders you have. ? Any recent procedures you have had, especially any procedures involving the prostate or rectum. ? Any medical conditions you have. ? Any recent urinary tract infections (UTIs) you have had. How are the results reported? Your test results will be reported as a value that indicates how much PSA is in your blood. This will be given as nanograms of PSA per milliliter of blood (ng/mL). Your health care provider will compare your results to normal ranges that were established after testing a large group of people (reference ranges). Reference ranges may vary among labs and hospitals. PSA levels vary from person to person and generally increase with age. Because of this variation, there is no single PSA value that is considered normal for everyone. Instead, PSA reference ranges are used to describe whether your PSA levels are considered low or high (elevated). Common reference ranges are: ? Low: 0?2.5 ng/mL. ? Slightly to moderately elevated: 2.6?10.0 ng/mL. ? Moderately elevated: 10.0?19.9 ng/mL. ? Significantly elevated: 20 ng/mL or greater. Sometimes, the test results may report that a condition is present when it is not present (false-positive result). What do the results mean? A test result that is higher than 4 ng/mL may mean that you are at an increased risk for prostate cancer. However, a PSA test by itself is not enough to diagnose prostate cancer. High PSA levels may also be caused by the natural aging process, prostate infection, or BPH. PSA screening cannot tell you if your PSA is high due to cancer or a different cause. A prostate biopsy is the only way to diagnose prostate cancer. A risk of having the PSA test is diagnosing and treating prostate cancer that would never have caused any symptoms or problems (overdiagnosis and overtreatment). Talk with your health care provider about what your results mean. Questions to ask your health care provider Ask your health care provider, or the department that is doing the test: ? When will my results be ready? ? How will I get my results? ? What are my treatment options? ? What other tests do I need? ? What are my next steps? Summary ? The prostate-specific antigen (PSA) test is a screening test for prostate cancer. ? Your health care provider may recommend that you have a PSA test starting at age 40 or that you have one earlier or later, depending on your risk factors for prostate cancer. ? A test result that is higher than 4 ng/mL may mean that you are at an increased risk for prostate cancer. However, elevated levels can be caused by a number of conditions other than prostate cancer. ? Talk with your health care provider about what your results mean. This information is not intended to replace advice given to you by your health care provider. Make sure you discuss any questions you have with your health care provider. Document Released: 07/04/2005 Document Revised: 05/14/2018 Document Reviewed: 03/08/2018 [employer] Patient Education ? 2020 [employer] Urology Benign Prostatic Hyperplasia Benign prostatic hyperplasia (BPH) is an enlarged prostate glan (more content not included)... Normal [facility] Physician Orderon 09-10-2022 Physician Order [id number]#1.0 0CD:127 Normal [facility] Pre-Certification Formon Pre-Certification Form [id number]#1. 00CD:127 Normal [facility] Urology Office/Clinic Noteon 09-10-2022 Urology Office/Clinic Note Chief Complaint 6m PSA HPI Staff Former DLS pt here for 6m PSA due to elevated PSA, PIN III & BPH. PSA done 08/19/22- 56.46 S/P NEG BX done 01/22/22. 11/09/19. & 05/19/18. Confirm MDX done 11/09/19 Bone Scan done 05/24/21 *DC'd Terazosin at last encounter, started Oxybutynin 5mg QHS at last encounter Weak stream. About the same as last encounter. Nocturia has improved. Last encounter 2-5x/night, now usually 1-2x/night. Still having sudden urgency, denies loss of bladder control. Not sexual. Not getting erections. 11yrs ago. Would be nice if everything worked as its supposed to Less ejaculation. IPSS 20 KEVIN 1 History of Present Illness Pt is here for 6 month follow up w/PSA due to BPH and Elevated PSA Reviewed UA, PVR, IPSS (20) and KEVIN (1) Pt has no associated symptoms, no fever, no chills, no flank pain. I have reviewed the previous health record information and history for this patient from Dr. Alves Review of Systems PHQ Score Initial Depression Screen Score: 0 ROS - Provider Constitutional: denies weight loss, denies hot flashes. Eyes: denies eye problems. Gastrointestinal: denies nausea, denies vomiting. Cardiovascular: denies chest pain or angina. Integumentary: no dryness Musculoskeletal: denies musculoskeletal symptoms. ENMT: denies otolaryngeal symptoms. Respiratory: no shortness of breath. Heme/Lymph: denies easy bleeding tendency, denies easy bruising tendency. Psychiatric: no confusion, no anxiety. Genitourinary: see HPI Physical Exam Vitals & Measurements HR: 86(Peripheral) RR: 16 BP: 140/89 HT: 73 in HT: 185 cm WT: 99 kg WT: 217.8 lb BMI: 28.93 General Appearance: alert, no distress, well nourished, well developed male. Genitourinary: Prostate: Moderately enlarged prostate, no hard nodule observed, non tender Assessment/Plan 1. Elevated PSA (R97.20: Elevated prostate specific antigen [PSA]) PSA 08/19/22 - 56.46 12/21/21 - 29.06 05/20/21 - 20.30 07/16/20 - 30.52 05/24/20 - 51.51 Confirm MDX October 2020 42% likelihood of prostate cancer, 20% GL 7 or greater Pt has had 4 NEG TRUS prostate Bx: 03/2017, 05/2018 - HGPIN 1/12 cores L base, 10/2019, 01/22/2022 (vol 84-92 ml per TRUS report) Bone scan May 2021 neg for mets Patient unable to have MRI due to pacemaker in place so unable to perform a MRI fusion prostate biopsy Discussed overall PSA/bx history, limitations and potential for malignancy. Given peak PSA 51 in 2019, PSA not significant increase. If unable to get MRI, will see if able to get PSMA PET scan vs transperineal saturation biopsy. TOMMY benign -Will confirm ability of MRI with cardiac pacemaker -Will continue to monitor PSA 2. BPH with urinary obstruction (N40.1: Benign prostatic hyperplasia with lower urinary tract symptoms) Pt is not currently on any prostate medications. PVR 71 ml The Urolift and Rezum procedures have been discussed in detail, including the risks and benefits of both procedures. We have compared these procedures to the more invasive TURP procedure. A cystoscopy will be needed to determine if he is a candidate for the more minimally invasive procedures. He is aware that local anesthesia and oral medications will be used, and that a Mejia catheter may need to be placed after the procedure for approximately one week. Pt was given information on prostate procedures. Discussed mgmt options. -Will start Tadalafil 5mg qAM -Pt will continue Oxybutynin 5mg at bedtime -Pt encouraged to urinate every 2-3 hours -Cystoscopy for further evaluation The risks and benefits for cystoscopy have been discussed. The risks include bleeding, infection, and irritation of the bladder and urinary channel, among others. The patient, after being informed of procedural details and after questions have been answered, wishes to proceed. Full informed consent has been obtained. Will order Local anesthesia. 3. Feeling of incomplete bladder emptying (R39.14: Feeling of incomplete bladder emptying) Pt's PVR today in office was 71cc Pt will continue Oxybutynin 5mg at bedtime helping -Start cialis 4. ED (erectile dysfunction) (N52.9: Male erectile dysfunction, unspecified) Pt is not currently on any medication. Declines further treatment at this time Follow-up With When Contact Information Chandler HCAVEZ, Sugey Cummins, URL, URO In 6 months Additional Instructions: w/PSA Patient Education Prostate-Specific Antigen Test Benign Prostatic Hyperplasia I, Camille Santo, personally scribed for Dr. Arteaga on 09/10/2022 10:17:45. . Documentation recorded by the scribCamille lemons, accurately reflects the services(s) I performed and decisions made by me. Authenticated by Dr. Arteaga on 09/10/2022 17:54:12. Problem List/Past Medical History Ongoing Anticoagulant long-term use BPH with urinary obstruction ED (erectile dysfunction) Elevated PSA Feeling of incomplete bladder emptying Former (more content not included)... Normal [facility] Comment on above: Result Comment: Elec tronically Signed By: Sugey Arteaga MD\.br\Date and Time Signed: 09/10/22 17:54 EDT\.br\Electronically Co-Signed By: Camille Santo\.br\Date and Time Co-Signed: 09/10/22 10:18 EDT BOX TEST SENT OUTon 08-20-19 23 SENT TO REF LAB 08/19/2022 Normal [facility] Comment on above: Performed By: #### B OX #### [facility] [address] [place] [address] Dr. Yogi Naidu CBC AUTO DIFFon 08-19-2022 BASO # 0.1 103/ul Normal 0.0-0.1 [facility] Comment on above: Performed By: #### C MP, MG, PHOS, GGT #### [facility] [address] [place] [address] Dr. Yogi Naidu Basophils/100 WBC (Bld) 0.9 % Normal 0.2-2.0 [facility] Comment on above: Performed By: #### C MP, MG, PHOS, GGT #### [facility] [address] [place] [address] Dr. Yogi Naidu EO # 0.2 103/ul Normal 0.0-0.7 [facility] Comment on above: Performed By: #### C MP, MG, PHOS, GGT #### [facility] [address] [place] [address] Dr. Yogi Naidu Eosinophils/100 WBC (Bld) 2.8 % Normal 0.9-7.0 [facility] Comment on above: Performed By: #### C MP, MG, PHOS, GGT #### [facility] [address] [place] [address] Dr. Yogi Naidu Erythrocyte distribution width (RBC) [Ratio] 13.9 % Normal 11.0-15.0 [facility] Comment on above: Performed By: #### C MP, MG, PHOS, GGT #### [facility] [address] [place] [address] Dr. Yogi Naidu Hematocrit (Bld) [Volume fraction] 46.0 % Normal 42.0-54.0 [facility] Comment on above: Performed By: #### C MP, MG, PHOS, GGT #### [facility] [address] [place] [address] Dr. Yogi Naidu Hemoglobin (Bld) [Mass/Vol] 15.6 g/dL Normal 14.0-18.0 [facility] Comment on above: Performed By: #### C MP, MG, PHOS, GGT #### [facility] [address] [place] [address] Dr. Yogi Naidu IG # 0.02 10e3/ul Normal 0.00-0.03 [facility] Comment on above: Performed By: #### C MP, MG, PHOS, GGT #### [facility] [address] [place] [address] Dr. Yogi Naidu IG % 0.3 % Normal 0.0-0.5 [facility] Comment on above: Performed By: #### C MP, MG, PHOS, GGT #### [facility] [address] [place] [address] Dr. Ygoi Naidu LYMPH # 0.9 103/ul Critically low 1.2-3.8 [facility] Comment on above: Performed By: #### C MP, MG, PHOS, GGT #### [facility] [address] [place] [address] Dr. Yogi Naidu Lymphocytes/100 WBC (Bld) 12.8 % Critically low 20.5-60.0 [facility] Comment on above: Performed By: #### C MP, MG, PHOS, GGT #### [facility] [address] [place] [address] Dr. Yogi Naidu MANUAL DIFF REQ NO Normal [facility] Comment on above: Performed By: #### C MP, MG, PHOS, GGT #### [facility] [address] [place] [address] Dr. Yogi Naidu MCH (RBC) [Entitic mass] 29.7 pg Normal 25.9-34.0 [facility] Comment on above: Performed By: #### C MP, MG, PHOS, GGT #### [facility] [address] [place] [address] Dr. Yogi Naidu MCHC (RBC) [Mass/Vol] 33.9 g/dL Normal 29.9-35.2 [facility] Comment on above: Performed By: #### C MP, MG, PHOS, GGT #### [facility] [address] [place] [address] Dr. Yogi aNidu MCV (RBC) [Entitic vol] 87.6 fL Normal 80.0-94.0 [facility] Comment on above: Performed By: #### C MP, MG, PHOS, GGT #### [facility] [address] [place] [address] Dr. Yogi Naidu MONO # 0.4 103/ul Normal 0.3-0.8 [facility] Comment on above: Performed By: #### C MP, MG, PHOS, GGT #### [facility] [address] [place] [address] Dr. Yogi Naidu Monocytes/100 WBC (Bld) 6.0 % Normal 1.7-12.0 [facility] Comment on above: Performed By: #### C MP, MG, PHOS, GGT #### [facility] [address] [place] [address] Dr. Yogi Naidu NEUT # 5.2 103/ul Normal 1.4-6.5 [facility] Comment on above: Performed By: #### C MP, MG, PHOS, GGT #### [facility] [address] [place] [address] Dr. Yogi Naidu Neutrophils/100 WBC (Bld) 77.2 % Critically high 43.0-75.0 [facility] Comment on above: Performed By: #### C MP, MG, PHOS, GGT #### [facility] [address] [place] [address] Dr. Yogi Naidu Platelet mean volume (Bld) [Entitic vol] 9.3 fL Critically low 9.5-13.5 [facility] Comment on above: Performed By: #### C MP, MG, PHOS, GGT #### [facility] [address] [place] [address] Dr. Yogi Naidu PLT 215 103/ul Normal 150-450 [facility] Comment on above: Performed By: #### C MP, MG, PHOS, GGT #### [facility] [address] [place] [address] Dr. Yogi Naidu RBC 5.25 106/ul Normal 4.70-6.10 [facility] Comment on above: Performed By: #### C MP, MG, PHOS, GGT #### [facility] [address] [place] [address] Dr. Yogi Naidu WBC 6.8 103/ul Normal 4.0-11.0 [facility] Comment on above: Performed By: #### C MP, MG, PHOS, GGT #### [facility] [address] [place] [address] Dr. Yogi Naidu GGTon 08-19-2022 Gamma glutamyl transferase [Catalytic activity/Vol] 32 U/L Normal 15-85 [facility] Comment on above: Performed By: #### C MP, MG, PHOS, GGT #### [facility] [address] [place] [address] Dr. Yogi Naidu Lab Reportson 08-19-2022 Lab Reports [id number] Normal [facility] MAGNESIUMon 08-19-2022 Magnesium [Mass/Vol] 1.5 mg/dL Critically low 1.8-2.4 [facility] Comment on above: Performed By: #### C MP, MG, PHOS, GGT #### [facility] [address] [place] [address] Dr. Yogi Naidu PHOSPHORUSon 08-19-2022 Phosphate [Mass/Vol] 3.0 mg/dL Normal 2.6-4.7 [facility] Comment on above: Performed By: #### C MP, MG, PHOS, GGT #### [facility] [address] [place] [address] Dr. Yogi Naidu PROF 14(COMP METB)on 023 Albumin [Mass/Vol] 4.2 g/dL Normal 3.4-5.0 [facility] Comment on above: Performed By: #### C MP, MG, PHOS, GGT #### [facility] [address] [place] [address] Dr. Yogi Naidu Albumin/Globulin [Mass ratio] 1.7 {ratio} Normal [facility] Comment on above: Performed By: #### C MP, MG, PHOS, GGT #### [facility] [address] [place] [address] Dr. Yogi Naidu ALP [Catalytic activity/Vol] 68 U/L Normal 46-116 [facility] Comment on above: Performed By: #### C MP, MG, PHOS, GGT #### [facility] [address] [place] [address] Dr. Yogi Naidu ALT [Catalytic activity/Vol] 16 U/L Normal 16-63 [facility] Comment on above: Performed By: #### C MP, MG, PHOS, GGT #### [facility] [address] [place], [place] [id number] Dr. Yogi Naidu Anion gap [Moles/Vol] 12.4 mmol/L Normal [facility] Comment on above: Performed By: #### C MP, MG, PHOS, GGT #### [facility] [address] [place] [address] Dr. Yogi Naidu AST [Catalytic activity/Vol] 16 U/L Normal 15-37 [facility] Comment on above: Performed By: #### C MP, MG, PHOS, GGT #### [facility] [address] [place] [address] Dr. Yogi Naidu Bilirubin [Mass/Vol] 0.7 mg/dL Normal 0.2-1.0 [facility] Comment on above: Performed By: #### C MP, MG, PHOS, GGT #### [facility] [address] [place] [address] Dr. Yogi Naidu Calcium [Mass/Vol] 9.2 mg/dL Normal 8.5-10.1 [facility] Comment on above: Performed By: #### C MP, MG, PHOS, GGT #### [facility] [address] [place] [address] Dr. Yogi Naidu Chloride [Moles/Vol] 110 mmol/L Critically high 98-107 [facility] Comment on above: Performed By: #### C MP, MG, PHOS, GGT #### [facility] [address] [place] [address] Dr. Yogi Naidu CO2 [Moles/Vol] 26.6 mmol/L Normal 21.0-32.0 [facility] Comment on above: Performed By: #### C MP, MG, PHOS, GGT #### [facility] [address] [place] [address] Dr. Yogi Naidu Creatinine [Mass/Vol] 1.08 mg/dL Normal 0.70-1.30 [facility] Comment on above: Performed By: #### C MP, MG, PHOS, GGT #### [facility] [address] [place] [address] Dr. Yogi Naidu EGFR-AF [place] >60 Normal >=60 [facility] Comment on above: Performed By: #### C MP, MG, PHOS, GGT #### [facility] [address] [place] [address] Dr. Yogi Naidu EGFR-NON AF [place] >60 Normal >=60 [facility] Comment on above: Performed By: #### C MP, MG, PHOS, GGT #### [facility] [address] [place] [address] Dr. Yogi Naidu Globulin (S) [Mass/Vol] 2.4 g/dL Normal [facility] Comment on above: Performed By: #### C MP, MG, PHOS, GGT #### [facility] [address] [place] [address] Dr. Yogi Naidu Glucose [Mass/Vol] 100 mg/dL Normal 74-106 [facility] Comment on above: Performed By: #### C MP, MG, PHOS, GGT #### [facility] [address] [place] [address] Dr. Yogi Naidu Potassium [Moles/Vol] 4.5 mmol/L Normal 3.5-5.1 [facility] Comment on above: Performed By: #### C MP, MG, PHOS, GGT #### [facility] [address] [place] [address] Dr. Yogi Naidu Protein [Mass/Vol] 6.6 g/dL Normal 6.4-8.2 [facility] Comment on above: Performed By: #### C MP, MG, PHOS, GGT #### [facility] [address] [place] [address] Dr. Yogi Naidu Sodium [Moles/Vol] 145 mmol/L Normal 136-145 [facility] Comment on above: Performed By: #### C MP, MG, PHOS, GGT #### [facility] [address] [place] [address] Dr. Yogi Naidu Urea nitrogen [Mass/Vol] 22.0 mg/dL Critically high 7.0-18 .0 [facility] Comment on above: Performed By: #### C MP, MG, PHOS, GGT #### [facility] [address], [place] [address] Dr. Yogi Naidu Urea nitrogen/Creatinine [Mass ratio] 20.3 mg/mg Normal [facility] Comment on above: Performed By: #### C MP, MG, PHOS, GGT #### [facility] [address] [place], [place] [address] Dr. Yogi Naidu Tacrolimus Bld-ncon 2022 Tacrolimus (Bld) [Mass/Vol] 7.8 ng/mL Normal 5.0-20.0 [facility] [place] Comment on above: Order Comment: Speci men Type: BLOOD SPECIMEN Ordering Facility: [facility] Address: , , Result Comment: Noreen vidualized target levels for a given patient will depend on many factors (including the type of organ transplant, time since transplantation, concurrent medications, and other clinical factors), and should be assessed by those health care providers experienced in the management of immunosuppression. Reference ranges and high/low indicator flags are provided as general guidelines only. The treating physician must determine appropriate target levels/dosing based on the specific clinical situation. Test performed by chemiluminescent immunoassay using setObject Alinity i. Performed By: #### 1 1253-2 #### [facility] CLIA [id number] [address] [place] [address] [place] CNCOon 08-12-2022 CNCO Letter Text Normal [facility] [place] Provider Letteron 08-07-2022 Provider Letter August 07, 2022 SUSAN SHERMAN [address] [address] SUSAN SHERMAN 1950 Dear Mr. Sherman, We spoke on the phone to reschedule your August 26 appointment but you were driving so we are sending this letter to ask that you call our office to reschedule your visit since Dr Alves will not be available. Please contact the office at the number listed below to get this appointment rescheduled at your earliest convenience. Please call [phone] Thank you for your prompt attention to this matter. Sincerely, [facility] [address], [place] [address] x 1 Normal [facility] HEP C RNA BY PCR QUANT (NON- GRAPHICAL) Won 07-23-2022 HCV Genotype RTNI Normal [facility] Comment on above: Result Comment: Not indicated Performed By: #### E ALVINO, UMBERNARDARO #### [facility] [address] [place] [address] Dr. Yogi Naidu HCV log10 UPTCAL Normal [facility] Comment on above: Result Comment: Unab le to calculate result since non-numeric result obtained for component test. Performed By: #### E ALVINO, UMICRO #### [facility] [address] [place] [address] Dr. Yogi Naidu Hepatitis C Quantitation Not detected [facility] Comment on above: Performed By: #### Vesta DE OLIVEIRA, UMICRO #### [facility] [address] [place] [address] Dr. Yogi Naidu Test Information: Comment Normal [facility] Comment on above: Result Comment: The quantitative range of this assay is 15 IU/mL to 100 million IU/mL. Performed By: #### E ALVINO, DASHRO #### [facility] [address] [place] [address] Dr. Yogi Naidu BOX TEST SENT OUTon 07-22-19 23 SENT TO REF LAB 07/22/2022 [facility] Comment on above: Performed By: #### B OX #### [facility] [address] [place] [address] Dr. Yogi Naidu CBC AUTO DIFFon 07-22-2022 BASO # 0.1 103/ul Normal 0.0-0.1 [facility] Comment on above: Performed By: #### C BC #### [facility] [address] [place] [address] Dr. Yogi Naidu Basophils/100 WBC (Bld) 1.0 % Normal 0.2-2.0 [facility] Comment on above: Performed By: #### C BC #### [facility] [address] [place] [address] Dr. Yogi Naidu EO # 0.2 103/ul Normal 0.0-0.7 [facility] Comment on above: Performed By: #### C BC #### [facility] [address] [place] [address] Dr. Yogi Naidu Eosinophils/100 WBC (Bld) 2.5 % Normal 0.9-7.0 [facility] Comment on above: Performed By: #### C BC #### [facility] [address] [place] [address] Dr. Yogi Naidu Erythrocyte distribution width (RBC) [Ratio] 14.1 % Normal 11.0-15.0 [facility] Comment on above: Performed By: #### C BC #### [facility] [address] [place] [address] Dr. Yogi Naidu Hematocrit (Bld) [Volume fraction] 50.1 % Normal 42.0-54.0 [facility] Comment on above: Performed By: #### C BC #### [facility] [address] [place] [address] Dr. Yogi Naidu Hemoglobin (Bld) [Mass/Vol] 16.2 g/dL Normal 14.0-18.0 [facility] Comment on above: Performed By: #### C BC #### [facility] [address] [place] [address] Dr. Yogi Naidu IG # 0.03 10e3/ul Normal 0.00-0.03 [facility] Comment on above: Performed By: #### C BC #### [facility] [address] [place] [address] Dr. Yogi Naidu IG % 0.4 % Normal 0.0-0.5 [facility] Comment on above: Performed By: #### C BC #### [facility] [address] [place] [address] Dr. Yogi Naidu LYMPH # 0.7 103/ul Critically low 1.2-3.8 [facility] Comment on above: Performed By: #### C BC #### [facility] [address] [place] [address] Dr. Yogi Naidu Lymphocytes/100 WBC (Bld) 11.0 % Critically low 20.5-60.0 [facility] Comment on above: Performed By: #### C BC #### [facility] [address] [place] [address] Dr. Yogi Naidu MANUAL DIFF REQ NO Normal [facility] Comment on above: Performed By: #### C BC #### [facility] [address] [place] [address] Dr. Yogi Naidu MCH (RBC) [Entitic mass] 29.9 pg Normal 25.9-34.0 [facility] Comment on above: Performed By: #### C BC #### [facility] [address] [place] [address] Dr. Yogi Naidu MCHC (RBC) [Mass/Vol] 32.3 g/dL Normal 29.9-35.2 [facility] Comment on above: Performed By: #### C BC #### [facility] [address] [place] [address] Dr. Yogi Naidu MCV (RBC) [Entitic vol] 92.6 fL Normal 80.0-94.0 [facility] Comment on above: Performed By: #### C BC #### [facility] [address] [place] [address] Dr. Yogi Naidu MONO # 0.4 103/ul Normal 0.3-0.8 [facility] Comment on above: Performed By: #### C BC #### [facility] [address] [place] [address] Dr. Yogi Naidu Monocytes/100 WBC (Bld) 5.7 % Normal 1.7-12.0 [facility] Comment on above: Performed By: #### C BC #### [facility] [address] [place] [address] Dr. Yogi Naidu NEUT # 5.3 103/ul Normal 1.4-6.5 [facility] Comment on above: Performed By: #### C BC #### [facility] [address] [place] [address] Dr. Yogi Naidu Neutrophils/100 WBC (Bld) 79.4 % Critically high 43.0-75.0 [facility] Comment on above: Performed By: #### C BC #### [facility] [address] [place] [address] Dr. Yogi Naidu Platelet mean volume (Bld) [Entitic vol] 9.7 fL Normal 9.5-13.5 [facility] Comment on above: Performed By: #### C BC #### [facility] [address] [place] [address] Dr. Yogi Naidu PLT 206 103/ul Normal 150-450 [facility] Comment on above: Performed By: #### C BC #### [facility] [address] [place] [address] Dr. Yogi Naidu RBC 5.41 106/ul Normal 4.70-6.10 [facility] Comment on above: Performed By: #### C BC #### [facility] [address] [place] [address] Dr. Yogi Naidu WBC 6.7 103/ul Normal 4.0-11.0 [facility] Comment on above: Performed By: #### C BC #### [facility] [address] [place] [address] Dr. Yogi Naidu GGTon 07-22-2022 Gamma glutamyl transferase [Catalytic activity/Vol] 30 U/L Normal 15-85 [facility] Comment on above: Performed By: #### B OX #### [facility] [address] [place] [address] Dr. Yogi Naidu LIPID PROFILEon 07-22-2022 CHOL-HDL RATIO NORM SEE BELOW Normal [facility] Comment on above: Result Comment: 3.3 - 4.4 LOW RISK 4.4 - 7.1 AVERAGE RISK 7.1 - 11.0 MODERATE RISK >11.0 HIGH RISK Performed By: #### C MP, MG, PHOS, GGT #### [facility] [address] [place] [address] Dr. Yogi Naidu Cholesterol [Mass/Vol] 188 mg/dL Normal <=200 [facility] Comment on above: Performed By: #### C MP, MG, PHOS, GGT #### [facility] [address] [place] [address] Dr. Yogi Naidu Cholesterol in HDL [Mass/Vol] 48 mg/dL Normal 40-60 [facility] Comment on above: Performed By: #### C MP, MG, PHOS, GGT #### [facility] [address] [place] [address] Dr. Yogi Naidu Cholesterol in LDL [Mass/Vol] 123.8 mg/dL Normal [facility] Comment on above: Performed By: #### C MP, MG, PHOS, GGT #### [facility] [address] [place] [address] Dr. Yogi Naidu Cholesterol.total/Choles terol in HDL [Mass ratio] 3.9 {ratio} Normal [facility] Comment on above: Performed By: #### C MP, MG, PHOS, GGT #### [facility] [address] [place] [address] Dr. Yogi Naidu HDL NORMAL > or = 60 mg/dl - LO W CARDIOVASCULAR RISK <40 mg/dl - HIGH CARDIOVASCULAR RISK Normal [facility] Comment on above: Performed By: #### C MP, MG, PHOS, GGT #### [facility] [address] [place] [address] Dr. Yogi Naidu LDL CALC NORMAL SEE BELOW Normal [facility] Comment on above: Result Comment: <100 mg/dl OPTIMAL 100 - 129 mg/dl NEAR OR ABOVE OPTIMAL 130 - 159 mg/dl BORDERLINE HIGH 160 - 189 mg/dl HIGH >190 mg/dl VERY HIGH Performed By: #### C MP, MG, PHOS, GGT #### [facility] [address] [place] [address] Dr. Yogi Naidu Triglyceride [Mass/Vol] 81 mg/dL Normal <=150 [facility] Comment on above: Performed By: #### C MP, MG, PHOS, GGT #### [facility] [address] [place] [address] Dr. Yogi Naidu VLDL CALC 16.2 mg/dL Normal [facility] Comment on above: Performed By: #### C MP, MG, PHOS, GGT #### [facility] [address] [place] [address] Dr. Yogi Naidu MAGNESIUMon 07-22-2022 Magnesium [Mass/Vol] 1.7 mg/dL Critically low 1.8-2.4 [facility] Comment on above: Performed By: #### B OX #### [facility] [address] [place] [address] Dr. Yogi Naidu PHOSPHORUSon 07-22-2022 Phosphate [Mass/Vol] 2.8 mg/dL Normal 2.6-4.7 [facility] Comment on above: Performed By: #### C MP, MG, PHOS, GGT #### [facility] [address] [place] [address] Dr. Yogi Naidu PROF 14(COMP METB)on 023 Albumin [Mass/Vol] 4.2 g/dL Normal 3.4-5.0 [facility] Comment on above: Performed By: #### C MP, MG, PHOS, GGT #### [facility] [address] [place] [address] Dr. Yogi Naidu Albumin/Globulin [Mass ratio] 1.7 {ratio} Normal [facility] Comment on above: Performed By: #### C MP, MG, PHOS, GGT #### [facility] [address] [place] [address] Dr. Yogi Naidu ALP [Catalytic activity/Vol] 72 U/L Normal 46-116 [facility] Comment on above: Performed By: #### C MP, MG, PHOS, GGT #### [facility] [address] [place] [address] Dr. Yogi Naidu ALT [Catalytic activity/Vol] 14 U/L Critically low 16-63 [facility] Comment on above: Performed By: #### C MP, MG, PHOS, GGT #### [facility] [address] [place] [address] Dr. Yogi Naidu Anion gap [Moles/Vol] 11.1 mmol/L Normal [facility] Comment on above: Performed By: #### C MP, MG, PHOS, GGT #### [facility] [address] [place] [address] Dr. Yogi Naidu AST [Catalytic activity/Vol] 11 U/L Critically low 15-37 [facility] Comment on above: Performed By: #### C MP, MG, PHOS, GGT #### [facility] [address] [place] [address] Dr. Yogi Naidu Bilirubin [Mass/Vol] 0.7 mg/dL Normal 0.2-1.0 [facility] Comment on above: Performed By: #### C MP, MG, PHOS, GGT #### [facility] [address] [place] [address] Dr. Yogi Naidu Calcium [Mass/Vol] 9.3 mg/dL Normal 8.5-10.1 [facility] Comment on above: Performed By: #### C MP, MG, PHOS, GGT #### [facility] [address] [place] [address] Dr. Yogi Naidu Chloride [Moles/Vol] 106 mmol/L Normal 98-107 [facility] Comment on above: Performed By: #### C MP, MG, PHOS, GGT #### [facility] [address] [place] [address] Dr. Yogi Naidu CO2 [Moles/Vol] 29.2 mmol/L Normal 21.0-32.0 [facility] Comment on above: Performed By: #### C MP, MG, PHOS, GGT #### [facility] [address] [place] [address] Dr. Yogi Naidu Creatinine [Mass/Vol] 1.08 mg/dL Normal 0.70-1.30 [facility] Comment on above: Performed By: #### C MP, MG, PHOS, GGT #### [facility] [address] [place] [address] Dr. Yogi Naidu EGFR-AF [place] >60 Normal >=60 [facility] Comment on above: Performed By: #### C MP, MG, PHOS, GGT #### [facility] [address] [place] [address] Dr. Yogi Naidu EGFR-NON AF [place] >60 Normal >=60 [facility] Comment on above: Performed By: #### C MP, MG, PHOS, GGT #### [facility] [address] [place] [address] Dr. Yogi Naidu Globulin (S) [Mass/Vol] 2.5 g/dL Normal [facility] Comment on above: Performed By: #### C MP, MG, PHOS, GGT #### [facility] [address] [place] [address] Dr. Yogi Naidu Glucose [Mass/Vol] 90 mg/dL Normal 74-106 [facility] Comment on above: Performed By: #### C MP, MG, PHOS, GGT #### [facility] [address] [place] [address] Dr. Yogi Naidu Potassium [Moles/Vol] 4.3 mmol/L Normal 3.5-5.1 [facility] Comment on above: Performed By: #### C MP, MG, PHOS, GGT #### [facility] [address] [place] [address] Dr. Yogi Naidu Protein [Mass/Vol] 6.7 g/dL Normal 6.4-8.2 [facility] Comment on above: Performed By: #### C MP, MG, PHOS, GGT #### [facility] [address] [place] [address] Dr. Yogi Naidu Sodium [Moles/Vol] 142 mmol/L Normal 136-145 [facility] Comment on above: Performed By: #### C MP, MG, PHOS, GGT #### [facility] [address] [place] [address] Dr. Yogi Naidu Urea nitrogen [Mass/Vol] 23.0 mg/dL Critically high 7.0-18 .0 [facility] Comment on above: Performed By: #### C MP, MG, PHOS, GGT #### [facility] [address] [place] [address] Dr. Yogi Naidu Urea nitrogen/Creatinine [Mass ratio] 21.3 mg/mg Normal [facility] Comment on above: Performed By: #### C MP, MG, PHOS, GGT #### [facility] [address] [place] [address] Dr. Yogi Naidu Tacrolimus Bld-ncon 2022 Tacrolimus (Bld) [Mass/Vol] 5.9 ng/mL Normal 5.0-20.0 [facility] Comment on above: Order Comment: Speci men Type: BLOOD SPECIMEN Ordering Facility: [facility] Address: , , Result Comment: Noreen vidualized target levels for a given patient will depend on many factors (including the type of organ transplant, time since transplantation, concurrent medications, and other clinical factors), and should be assessed by those health care providers experienced in the management of immunosuppression. Reference ranges and high/low indicator flags are provided as general guidelines only. The treating physician must determine appropriate target levels/dosing based on the specific clinical situation. Test performed by chemiluminescent immunoassay using [employer]. Performed By: #### 1 1253-2 #### [facility] CLIA [id number] [address] [place] [address] [place] TEST SENT OUTon 06-16-19 23 SENT TO REF LAB 06/16/2022 Normal [facility] Comment on above: Performed By: #### E MERLE DE OLIVEIRA #### [facility] [address] [place] [address] Dr. Yogi Naidu CBC AUTO DIFFon 06-16-2022 BASO # 0.1 103/ul Normal 0.0-0.1 [facility] Comment on above: Performed By: #### C BC #### [facility] [address] [place] [address] Dr. Yogi Naidu Basophils/100 WBC (Bld) 1.0 % Normal 0.2-2.0 [facility] Comment on above: Performed By: #### C BC #### [facility] [address] [place] [address] Dr. Yogi Naidu EO # 0.2 103/ul Normal 0.0-0.7 [facility] Comment on above: Performed By: #### C BC #### [facility] [address] [place] [address] Dr. Yoig Naidu Eosinophils/100 WBC (Bld) 2.5 % Normal 0.9-7.0 [facility] Comment on above: Performed By: #### C BC #### [facility] [address] [place] [address] Dr. Yogi Naidu Erythrocyte distribution width (RBC) [Ratio] 14.3 % Normal 11.0-15.0 [facility] Comment on above: Performed By: #### C BC #### [facility] [address] [place] [address] Dr. Yogi Naidu Hematocrit (Bld) [Volume fraction] 44.7 % Normal 42.0-54.0 [facility] Comment on above: Performed By: #### C BC #### [facility] [address] [place] [address] Dr. Yogi Naidu Hemoglobin (Bld) [Mass/Vol] 14.8 g/dL Normal 14.0-18.0 [facility] Comment on above: Performed By: #### C BC #### [facility] [address] [place] [address] Dr. Yogi Naidu IG # 0.01 10e3/ul Normal 0.00-0.03 [facility] Comment on above: Performed By: #### C BC #### [facility] [address] [place] [address] Dr. Yogi Naidu IG % 0.2 % Normal 0.0-0.5 [facility] Comment on above: Performed By: #### C BC #### [facility] [address] [place] [address] Dr. Yogi Naidu LYMPH # 0.7 103/ul Critically low 1.2-3.8 [facility] Comment on above: Performed By: #### C BC #### [facility] [address] [place] [address] Dr. Yogi Naidu Lymphocytes/100 WBC (Bld) 12.4 % Critically low 20.5-60.0 [facility] Comment on above: Performed By: #### C BC #### [facility] [address] [place] [address] Dr. Yogi Naidu MANUAL DIFF REQ NO Normal [facility] Comment on above: Performed By: #### C BC #### [facility] [address] [address] [address] Yogi Naidu MCH (RBC) [Entitic mass] 29.5 pg Normal 25.9-34.0 [facility] Comment on above: Performed By: #### C BC #### [facility] [address] [place] [address] Dr. Yogi Naidu MCHC (RBC) [Mass/Vol] 33.1 g/dL Normal 29.9-35.2 [facility] Comment on above: Performed By: #### C BC #### [facility] [address] [place] [address] Dr. Yogi Naidu MCV (RBC) [Entitic vol] 89.2 fL Normal 80.0-94.0 [facility] Comment on above: Performed By: #### C BC #### [facility] [address] [place] [address] Dr. Yogi Naidu MONO # 0.4 103/ul Normal 0.3-0.8 [facility] Comment on above: Performed By: #### C BC #### [facility] [address] [place] [address] Dr. Yogi Naidu Monocytes/100 WBC (Bld) 5.9 % Normal 1.7-12.0 [facility] Comment on above: Performed By: #### C BC #### [facility] [address] [place] [address] Dr. Yogi Naidu NEUT # 4.6 103/ul Normal 1.4-6.5 [facility] Comment on above: Performed By: #### C BC #### [facility] [address] [place] [address] Dr. Yogi Naidu Neutrophils/100 WBC (Bld) 78.0 % Critically high 43.0-75.0 [facility] Comment on above: Performed By: #### C BC #### [facility] [address] [place] [address] Dr. Yogi Naidu Platelet mean volume (Bld) [Entitic vol] 9.1 fL Critically low 9.5-13.5 [facility] Comment on above: Performed By: #### C BC #### [facility] [address] [place] [address] Dr. Yogi Naidu PLT 190 103/ul Normal 150-450 [facility] Comment on above: Performed By: #### C BC #### [facility] [address] [place] [address] Dr. Yogi Naidu RBC 5.01 106/ul Normal 4.70-6.10 [facility] Comment on above: Performed By: #### C BC #### [facility] [address] [place] [address] Dr. Yogi Naidu WBC 5.9 103/ul Normal 4.0-11.0 [facility] Comment on above: Performed By: #### C BC #### [facility] [address] [place] [address] Dr. Yogi Naidu GGTon 06-16-2022 Gamma glutamyl transferase [Catalytic activity/Vol] 28 U/L Normal 15-85 [facility] Comment on above: Performed By: #### C MP, MG, PHOS, GGT #### [facility] [address] [place] [address] Dr. Yogi Naidu MAGNESIUMon 06-16-2022 Magnesium [Mass/Vol] 1.6 mg/dL Critically low 1.8-2.4 [facility] Comment on above: Performed By: #### C MP, MG, PHOS, GGT #### [facility] [address] [place] [address] Dr. Yogi Naidu PHOSPHORUSon 06-16-2022 Phosphate [Mass/Vol] 3.2 mg/dL Normal 2.6-4.7 [facility] Comment on above: Performed By: #### C MP, MG, PHOS, GGT #### [facility] [address] [place] [address] Dr. Yogi Naidu PROF 14(COMP METB)on 023 Albumin [Mass/Vol] 3.8 g/dL Normal 3.4-5.0 [facility] Comment on above: Performed By: #### C MP, MG, PHOS, GGT #### [facility] [address] [address] [address] Yogi Naidu Albumin/Globulin [Mass ratio] 1.5 {ratio} Normal [facility] Comment on above: Performed By: #### C MP, MG, PHOS, GGT #### [facility] [address] [address] [address] Yogi Naidu ALP [Catalytic activity/Vol] 74 U/L Normal 46-116 [facility] Comment on above: Performed By: #### C MP, MG, PHOS, GGT #### [facility] [address] [address] [address] Yogi Naiud ALT [Catalytic activity/Vol] 13 U/L Critically low 16-63 [facility] Comment on above: Performed By: #### C MP, MG, PHOS, GGT #### [facility] [address] [place] [address] Dr. Yogi Naidu Anion gap [Moles/Vol] 10.8 mmol/L Normal [facility] Comment on above: Performed By: #### C MP, MG, PHOS, GGT #### [facility] [address] [address] [address] Yogi Naidu AST [Catalytic activity/Vol] 15 U/L Normal 15-37 [facility] Comment on above: Performed By: #### C MP, MG, PHOS, GGT #### [facility] [address] [address] [address] Yogi Naidu Bilirubin [Mass/Vol] 0.8 mg/dL Normal 0.2-1.0 [facility] Comment on above: Performed By: #### C MP, MG, PHOS, GGT #### [facility] [address] [address] [address] Yogi Naidu Calcium [Mass/Vol] 8.9 mg/dL Normal 8.5-10.1 [facility] Comment on above: Performed By: #### C MP, MG, PHOS, GGT #### [facility] [address] [address] [address] Yogi Naidu Chloride [Moles/Vol] 108 mmol/L Critically high 98-107 [facility] Comment on above: Performed By: #### C MP, MG, PHOS, GGT #### [facility] [address] [place] [address] Dr. Yogi Naidu CO2 [Moles/Vol] 27.6 mmol/L Normal 21.0-32.0 [facility] Comment on above: Performed By: #### C MP, MG, PHOS, GGT #### [facility] [address] [place] [address] Dr. Yogi Naidu Creatinine [Mass/Vol] 1.12 mg/dL Normal 0.70-1.30 [facility] Comment on above: Performed By: #### C MP, MG, PHOS, GGT #### [facility] [address] [place] [address] Dr. Yogi Naidu EGFR-AF [place] >60 Normal >=60 [facility] Comment on above: Performed By: #### C MP, MG, PHOS, GGT #### [facility] [address] [place] [address] Dr. Yogi Naidu EGFR-NON AF [place] >60 Normal >=60 [facility] Comment on above: Performed By: #### C MP, MG, PHOS, GGT #### [facility] [address] [place] [address] Dr. Yogi Naidu Globulin (S) [Mass/Vol] 2.5 g/dL Normal [facility] Comment on above: Performed By: #### C MP, MG, PHOS, GGT #### [facility] [address] [place] [address] Dr. Yogi Naidu Glucose [Mass/Vol] 95 mg/dL Normal 74-106 [facility] Comment on above: Performed By: #### C MP, MG, PHOS, GGT #### [facility] [address] [place] [address] Dr. Yogi Naidu Potassium [Moles/Vol] 4.4 mmol/L Normal 3.5-5.1 [facility] Comment on above: Performed By: #### C MP, MG, PHOS, GGT #### [facility] [address] [place] [address] Dr. Yogi Naidu Protein [Mass/Vol] 6.3 g/dL Critically low 6.4-8.2 [facility] Comment on above: Performed By: #### C MP, MG, PHOS, GGT #### [facility] [address] [place] [address] Dr. Yogi Naidu Sodium [Moles/Vol] 142 mmol/L Normal 136-145 [facility] Comment on above: Performed By: #### C MP, MG, PHOS, GGT #### [facility] [address] [place] [address] Dr. Yogi Naidu Urea nitrogen [Mass/Vol] 24.0 mg/dL Critically high 7.0-18 .0 [facility] Comment on above: Performed By: #### C MP, MG, PHOS, GGT #### [facility] [address] [place] [address] Dr. Yogi Naidu Urea nitrogen/Creatinine [Mass ratio] 21.4 mg/mg Normal [facility] Comment on above: Performed By: #### C MP, MG, PHOS, GGT #### [facility] [address] [place] [address] Dr. Yogi Naidu [facility] Tacrolimus (Bld) [Mass/Vol] 6.3 ng/mL Normal 5.0-20.0 [facility] Comment on above: Order Comment: Speci men Type: BLOOD SPECIMEN Ordering Facility: [facility] Address: , , Result Comment: Thes e reference ranges are provided as a general recommendation. Individualized target levels for a given patient will depend on many factors (including the type of organ transplant, time since transplantation, concurrent medications, and other clinical factors), and should be assessed by those health care providers experienced in the management of immunosuppression. Reference ranges and high/low indicator flags are provided as general guidelines only. The treating physician must determine appropriate target levels/dosing based on the specific clinical situation. Test performed by chemiluminescent immunoassay using [employer]. Performed By: #### 1 1253-2 #### [facility] CLIA [id number] [address] [place] [address] [place] TEST SENT OUTon 05-19-20 SENT TO REF LAB 05/19/2022 Normal [facility] Comment on above: Performed By: #### E MERLE DE OLIVEIRA #### [facility] [address] [place] [address] Dr. Yogi Naidu CBC AUTO DIFFon 05-19-2022 BASO # 0.1 103/ul Normal 0.0-0.1 [facility] Comment on above: Performed By: #### C MP, MG, PHOS, GGT #### [facility] [address] [place] [address] Dr. Yogi Naidu Basophils/100 WBC (Bld) 1.2 % Normal 0.2-2.0 [facility] Comment on above: Performed By: #### C MP, MG, PHOS, GGT #### [facility] [address] [place] [address] Dr. Yogi Naidu EO # 0.3 103/ul Normal 0.0-0.7 [facility] Comment on above: Performed By: #### C MP, MG, PHOS, GGT #### [facility] [address] [place] [address] Dr. Yogi Naidu Eosinophils/100 WBC (Bld) 4.2 % Normal 0.9-7.0 [facility] Comment on above: Performed By: #### C MP, MG, PHOS, GGT #### [facility] [address] [place] [address] Dr. Yogi Naidu Erythrocyte distribution width (RBC) [Ratio] 14.2 % Normal 11.0-15.0 [facility] Comment on above: Performed By: #### C MP, MG, PHOS, GGT #### [facility] [address] [place] [address] Dr. Yogi Naidu Hematocrit (Bld) [Volume fraction] 45.5 % Normal 42.0-54.0 [facility] Comment on above: Performed By: #### C MP, MG, PHOS, GGT #### [facility] [address] [place] [address] Dr. Yogi Naidu Hemoglobin (Bld) [Mass/Vol] 15.3 g/dL Normal 14.0-18.0 [facility] Comment on above: Performed By: #### C MP, MG, PHOS, GGT #### [facility] [address] [place] [address] Dr. Yogi Naidu IG # 0.02 10e3/ul Normal 0.00-0.03 [facility] Comment on above: Performed By: #### C MP, MG, PHOS, GGT #### [facility] [address] [place] [address] Dr. Yogi Naidu IG % 0.3 % Normal 0.0-0.5 [facility] Comment on above: Performed By: #### C MP, MG, PHOS, GGT #### [facility] [address] [place] [address] Dr. Yogi Naidu LYMPH # 0.7 103/ul Critically low 1.2-3.8 [facility] Comment on above: Performed By: #### C MP, MG, PHOS, GGT #### [facility] [address] [place] [address] Dr. Yogi Naidu Lymphocytes/100 WBC (Bld) 10.1 % Critically low 20.5-60.0 [facility] Comment on above: Performed By: #### C MP, MG, PHOS, GGT #### [facility] [address] [place] [address] Dr. Yogi Naidu MANUAL DIFF REQ NO Normal [facility] Comment on above: Performed By: #### C MP, MG, PHOS, GGT #### [facility] [address] [place] [address] Dr. Yogi Naidu MCH (RBC) [Entitic mass] 29.7 pg Normal 25.9-34.0 [facility] Comment on above: Performed By: #### C MP, MG, PHOS, GGT #### [facility] [address] [place] [address] Dr. Yogi Naidu MCHC (RBC) [Mass/Vol] 33.6 g/dL Normal 29.9-35.2 [facility] Comment on above: Performed By: #### C MP, MG, PHOS, GGT #### [facility] [address] [place] [address] Dr. Yogi Naidu MCV (RBC) [Entitic vol] 88.3 fL Normal 80.0-94.0 [facility] Comment on above: Performed By: #### C MP, MG, PHOS, GGT #### [facility] [address] [place] [address] Dr. Yogi Naidu MONO # 0.5 103/ul Normal 0.3-0.8 [facility] Comment on above: Performed By: #### C MP, MG, PHOS, GGT #### [facility] [address] [place] [address] Dr. Yogi Naidu Monocytes/100 WBC (Bld) 6.6 % Normal 1.7-12.0 [facility] Comment on above: Performed By: #### C MP, MG, PHOS, GGT #### [facility] [address] [place] [address] Dr. Yogi Naidu NEUT # 5.7 103/ul Normal 1.4-6.5 [facility] Comment on above: Performed By: #### C MP, MG, PHOS, GGT #### [facility] [address] [place] [address] Dr. Yogi Naidu Neutrophils/100 WBC (Bld) 77.6 % Critically high 43.0-75.0 [facility] Comment on above: Performed By: #### C MP, MG, PHOS, GGT #### [facility] [address] [place] [address] Dr. Yogi Naidu Platelet mean volume (Bld) [Entitic vol] 9.3 fL Critically low 9.5-13.5 [facility] Comment on above: Performed By: #### C MP, MG, PHOS, GGT #### [facility] [address] [place] [address] Dr. Yogi Naidu PLT 176 103/ul Normal 150-450 [facility] Comment on above: Performed By: #### C MP, MG, PHOS, GGT #### [facility] [address] [place] [address] Dr. Yogi Naidu RBC 5.15 106/ul Normal 4.70-6.10 [facility] Comment on above: Performed By: #### C MP, MG, PHOS, GGT #### [facility] [address] [place] [address] Dr. Yogi Naidu WBC 7.3 103/ul Normal 4.0-11.0 [facility] Comment on above: Performed By: #### C MP, MG, PHOS, GGT #### [facility] [address] [place] [address] Dr. Yogi Naidu GGTon 05-19-2022 Gamma glutamyl transferase [Catalytic activity/Vol] 32 U/L Normal 15-85 [facility] Comment on above: Performed By: #### C BC #### [facility] [address] [place] [address] Dr. Yogi Naidu MAGNESIUMon 05-19-2022 Magnesium [Mass/Vol] 1.9 mg/dL Normal 1.8-2.4 [facility] Comment on above: Performed By: #### C BC #### [facility] [address] [place] [address] Dr. Yogi Naidu PHOSPHORUSon 05-19-2022 Phosphate [Mass/Vol] 2.9 mg/dL Normal 2.6-4.7 [facility] Comment on above: Performed By: #### C BC #### [facility] [address] [place] [address] Dr. Yogi Naidu PROF 14(COMP METB)on 022 Albumin [Mass/Vol] 4.0 g/dL Normal 3.4-5.0 [facility] Comment on above: Performed By: #### C BC #### [facility] [address] [place] [address] Dr. Yogi Naidu Albumin/Globulin [Mass ratio] 1.6 {ratio} Normal [facility] Comment on above: Performed By: #### C BC #### [facility] [address] [place] [address] Dr. Yogi Naidu ALP [Catalytic activity/Vol] 79 U/L Normal 46-116 [facility] Comment on above: Performed By: #### C BC #### [facility] [address] [place] [address] Dr. Yogi Naidu ALT [Catalytic activity/Vol] 13 U/L Critically low 16-63 [facility] Comment on above: Performed By: #### C BC #### [facility] [address] [place] [address] Dr. Yogi Naidu Anion gap [Moles/Vol] 10.1 mmol/L Normal Th e [facility] Comment on above: Performed By: #### C BC #### [facility] [address] [place] [address] Dr. Yogi Naidu AST [Catalytic activity/Vol] 13 U/L Critically low 15-37 [facility] Comment on above: Performed By: #### C BC #### [facility] [address] [place] [address] Dr. Yogi Naidu Bilirubin [Mass/Vol] 0.6 mg/dL Normal 0.2-1.0 [facility] Comment on above: Performed By: #### C BC #### [facility] [address] [place] [address] Dr. Yogi Naidu Calcium [Mass/Vol] 8.9 mg/dL Normal 8.5-10.1 [facility] Comment on above: Performed By: #### C BC #### [facility] [address] [place] [address] Dr. Yogi Naidu Chloride [Moles/Vol] 108 mmol/L Critically high 98-107 [facility] Comment on above: Performed By: #### C BC #### [facility] [address] [place] [address] Dr. Yogi Naidu CO2 [Moles/Vol] 29.2 mmol/L Normal 21.0-32.0 [facility] Comment on above: Performed By: #### C BC #### [facility] [address] [place] [address] Dr. Yogi Naidu Creatinine [Mass/Vol] 0.98 mg/dL Normal 0.70-1.30 [facility] Comment on above: Performed By: #### C BC #### [facility] [address] [place] [address] Dr. Yogi Naidu EGFR-AF [place] >60 Normal >=60 [facility] Comment on above: Performed By: #### C BC #### [facility] [address] [address] [address] Yogi Naidu EGFR-NON AF [place] >60 Normal >=60 [facility] Comment on above: Performed By: #### C BC #### [facility] [address] [address] [address] Yogi Naidu Globulin (S) [Mass/Vol] 2.5 g/dL Normal [facility] Comment on above: Performed By: #### C BC #### [facility] [address] [place] [address] Dr. Yogi Naidu Glucose [Mass/Vol] 92 mg/dL Normal 74-106 [facility] Comment on above: Performed By: #### C BC #### [facility] [address] [place] [address] Dr. Yogi Naidu Potassium [Moles/Vol] 4.3 mmol/L Normal 3.5-5.1 [facility] Comment on above: Performed By: #### C BC #### [facility] [address] [place] [address] Dr. Yogi Naidu Protein [Mass/Vol] 6.5 g/dL Normal 6.4-8.2 [facility] Comment on above: Performed By: #### C BC #### [facility] [address] [place] [address] Dr. Yogi Naidu Sodium [Moles/Vol] 143 mmol/L Normal 136-145 [facility] Comment on above: Performed By: #### C BC #### [facility] [address] [place] [address] Dr. Yogi Naidu Urea nitrogen [Mass/Vol] 24.0 mg/dL Critically high 7.0-18 .0 [facility] Comment on above: Performed By: #### C BC #### [facility] [address] [place] [address] Dr. Yogi Naidu Urea nitrogen/Creatinine [Mass ratio] 24.5 mg/mg Normal [facility] Comment on above: Performed By: #### C BC #### [facility] [address] [place] [address] Dr. Yogi Naidu Tacrolimus Bld-ncon 2021 Tacrolimus (Bld) [Mass/Vol] 7.4 ng/mL Normal 5.0-20.0 [facility] Comment on above: Order Comment: Speci men Type: BLOOD SPECIMEN Ordering Facility: [facility] Address: , , Result Comment: Thes e reference ranges are provided as a general recommendation. Individualized target levels for a given patient will depend on many factors (including the type of organ transplant, time since transplantation, concurrent medications, and other clinical factors), and should be assessed by those health care providers experienced in the management of immunosuppression. Reference ranges and high/low indicator flags are provided as general guidelines only. The treating physician must determine appropriate target levels/dosing based on the specific clinical situation. Test performed by chemiluminescent immunoassay using [employer]. Performed By: #### 1 1253-2 #### [facility] CLIA [id number] [address] [place] [address] [place] RNA BY PCR QUANT (NON- GRAPHICAL) Won 04-22-2022 HCV Genotype RTNI Normal [facility] Comment on above: Result Comment: Not indicated Performed By: #### C BC #### [facility] [address] [place] [address] Dr. Yogi Naidu HCV log10 UPTCAL Normal [facility] Comment on above: Result Comment: Unab le to calculate result since non-numeric result obtained for component test. Performed By: #### C BC #### [facility] [address] [place] [address] Dr. Yogi Naidu Hepatitis C Quantitation Not detected Normal [facility] Comment on above: Performed By: #### C BC #### [facility] [address] [place] [address] Dr. Yogi Naidu Test Information: Comment Normal [facility] Comment on above: Result Comment: The quantitative range of this assay is 15 IU/mL to 100 million IU/mL. Performed By: #### C BC #### [facility] [address] [place] [address] Dr. Yogi Naidu BOX TEST SENT OUTon 04-21-20 22 SENT TO REF LAB 04/21/2022 Normal [facility] Comment on above: Performed By: #### C BC #### [facility] [address] [place] [address] Dr. Yogi Naidu CBC AUTO DIFFon 04-21-2022 BASO # 0.1 103/ul Normal 0.0-0.1 [facility] Comment on above: Performed By: #### C MP, MG, PHOS, GGT #### [facility] [address] [place] [address] Dr. Yogi Naidu Basophils/100 WBC (Bld) 1.0 % Normal 0.2-2.0 [facility] Comment on above: Performed By: #### C MP, MG, PHOS, GGT #### [facility] [address] [place] [address] Dr. Yogi Naidu EO # 0.2 103/ul Normal 0.0-0.7 [facility] Comment on above: Performed By: #### C MP, MG, PHOS, GGT #### [facility] [address] [place] [address] Dr. Yogi Naidu Eosinophils/100 WBC (Bld) 2.7 % Normal 0.9-7.0 [facility] Comment on above: Performed By: #### C MP, MG, PHOS, GGT #### [facility] [address] [place] [address] Dr. Yogi Naidu Erythrocyte distribution width (RBC) [Ratio] 14.2 % Normal 11.0-15.0 [facility] Comment on above: Performed By: #### C MP, MG, PHOS, GGT #### [facility] [address] [place] [address] Dr. Yogi Naidu Hematocrit (Bld) [Volume fraction] 46.5 % Normal 42.0-54.0 [facility] Comment on above: Performed By: #### C MP, MG, PHOS, GGT #### [facility] [address] [place] [address] Dr. Yogi Naidu Hemoglobin (Bld) [Mass/Vol] 15.6 g/dL Normal 14.0-18.0 [facility] Comment on above: Performed By: #### C MP, MG, PHOS, GGT #### [facility] [address] [place] [address] Dr. Yogi Naidu IG # 0.03 10e3/ul Normal 0.00-0.03 [facility] Comment on above: Performed By: #### C MP, MG, PHOS, GGT #### [facility] [address] [place] [address] Dr. Yogi Naidu IG % 0.4 % Normal 0.0-0.5 [facility] Comment on above: Performed By: #### C MP, MG, PHOS, GGT #### [facility] [address] [place] [address] Dr. Yogi Naidu LYMPH # 0.8 103/ul Critically low 1.2-3.8 [facility] Comment on above: Performed By: #### C MP, MG, PHOS, GGT #### [facility] [address] [place] [address] Dr. Yogi Naidu Lymphocytes/100 WBC (Bld) 11.3 % Critically low 20.5-60.0 [facility] Comment on above: Performed By: #### C MP, MG, PHOS, GGT #### [facility] [address] [place] [address] Dr. Yogi Naidu MANUAL DIFF REQ NO Normal [facility] Comment on above: Performed By: #### C MP, MG, PHOS, GGT #### [facility] [address] [place] [address] Dr. Yogi Naidu MCH (RBC) [Entitic mass] 30.1 pg Normal 25.9-34.0 [facility] Comment on above: Performed By: #### C MP, MG, PHOS, GGT #### [facility] [address] [place] [address] Dr. Yogi Naidu MCHC (RBC) [Mass/Vol] 33.5 g/dL Normal 29.9-35.2 [facility] Comment on above: Performed By: #### C MP, MG, PHOS, GGT #### [facility] [address] [place] [address] Dr. Yogi Naidu MCV (RBC) [Entitic vol] 89.6 fL Normal 80.0-94.0 [facility] Comment on above: Performed By: #### C MP, MG, PHOS, GGT #### [facility] [address] [place] [address] Dr. Yogi Naidu MONO # 0.4 103/ul Normal 0.3-0.8 [facility] Comment on above: Performed By: #### C MP, MG, PHOS, GGT #### [facility] [address] [place] [address] Dr. Yogi Naidu Monocytes/100 WBC (Bld) 6.0 % Normal 1.7-12.0 [facility] Comment on above: Performed By: #### C MP, MG, PHOS, GGT #### [facility] [address] [place] [address] Dr. Yogi Naidu NEUT # 5.5 103/ul Normal 1.4-6.5 [facility] Comment on above: Performed By: #### C MP, MG, PHOS, GGT #### [facility] [address] [place] [address] Dr. Yogi Naidu Neutrophils/100 WBC (Bld) 78.6 % Critically high 43.0-75.0 [facility] Comment on above: Performed By: #### C MP, MG, PHOS, GGT #### [facility] [address] [place] [address] Dr. Yogi Naidu Platelet mean volume (Bld) [Entitic vol] 10.1 fL Normal 9.5-13.5 [facility] Comment on above: Performed By: #### C MP, MG, PHOS, GGT #### [facility] [address] [address] [address] Yogi Naidu PLT 204 103/ul Normal 150-450 [facility] Comment on above: Performed By: #### C MP, MG, PHOS, GGT #### [facility] [address] [address] [address] Yogi Naidu RBC 5.19 106/ul Normal 4.70-6.10 [facility] Comment on above: Performed By: #### C MP, MG, PHOS, GGT #### [facility] [address] [place] [address] Dr. Yogi Naidu WBC 7.0 103/ul Normal 4.0-11.0 [facility] Comment on above: Performed By: #### C MP, MG, PHOS, GGT #### [facility] [address] [place] [address] Dr. Yogi Naidu GGTon 04-21-2022 Gamma glutamyl transferase [Catalytic activity/Vol] 34 U/L Normal 15-85 [facility] Comment on above: Performed By: #### MERLE CULVER #### [facility] [address] [place] [address] Dr. Yogi Naidu LIPID PROFILEon 04-21-2022 CHOL-HDL RATIO NORM SEE BELOW Normal [facility] Comment on above: Result Comment: 3.3 - 4.4 LOW RISK 4.4 - 7.1 AVERAGE RISK 7.1 - 11.0 MODERATE RISK >11.0 HIGH RISK Performed By: #### MERLE CULVER #### [facility] [address] [place] [address] Dr. Yogi Naidu Cholesterol [Mass/Vol] 190 mg/dL Normal <=200 [facility] Comment on above: Performed By: #### MERLE CULVER #### [facility] [address] [place] [address] Dr. Yogi Naidu Cholesterol in HDL [Mass/Vol] 49 mg/dL Normal 40-60 [facility] Comment on above: Performed By: #### MERLE CULVER #### [facility] [address] [place] [address] Dr. Yogi Naidu Cholesterol in LDL [Mass/Vol] 127.8 mg/dL Normal [facility] Comment on above: Performed By: #### MERLE CULVER #### [facility] [address] [place] [address] Dr. Yogi Naidu Cholesterol.total/Choles terol in HDL [Mass ratio] 3.9 {ratio} Normal [facility] Comment on above: Performed By: #### MERLE CULVER #### [facility] [address] [place] [address] Dr. Yogi Naidu HDL NORMAL > or = 60 mg/dl - LO W CARDIOVASCULAR RISK <40 mg/dl - HIGH CARDIOVASCULAR RISK Normal [facility] Comment on above: Performed By: #### MERLE CULVER #### [facility] [address] [place] [address] Dr. Yogi Naidu LDL CALC NORMAL SEE BELOW Normal [facility] Comment on above: Result Comment: <100 mg/dl OPTIMAL 100 - 129 mg/dl NEAR OR ABOVE OPTIMAL 130 - 159 mg/dl BORDERLINE HIGH 160 - 189 mg/dl HIGH >190 mg/dl VERY HIGH Performed By: #### MERLE CULVER #### [facility] [address] [place] [address] Dr. Yogi Naidu Triglyceride [Mass/Vol] 66 mg/dL Normal <=150 [facility] Comment on above: Performed By: #### MERLE CULVER #### [facility] [address] [place] [address] Dr. Yogi Naidu VLDL CALC 13.2 mg/dL Normal [facility] Comment on above: Performed By: #### MERLE CULVER #### [facility] [address] [place] [address] Dr. Yogi Naidu MAGNESIUMon 04-21-2022 Magnesium [Mass/Vol] 1.8 mg/dL Normal 1.8-2.4 [facility] Comment on above: Performed By: #### MERLE CULVER #### [facility] [address] [place], [place] [id number] Dr. Yogi Naidu PHOSPHORUSon 04-21-2022 Phosphate [Mass/Vol] 3.4 mg/dL Normal 2.6-4.7 [facility] Comment on above: Performed By: #### Vesta DE OLIVEIRA UMICRO #### [facility] [address] [place] [address] Dr. Yogi Naidu PROF 14(COMP METB)on 022 Albumin [Mass/Vol] 4.0 g/dL Normal 3.4-5.0 [facility] Comment on above: Performed By: #### Vesta DE OLIVEIRA UMICRO #### [facility] [address] [place] [address] Dr. Yogi Naidu Albumin/Globulin [Mass ratio] 1.6 {ratio} Normal [facility] Comment on above: Performed By: #### Vesta DE OLIVEIRA UMICRO #### [facility] [address] [place] [address] Dr. Yogi Naidu ALP [Catalytic activity/Vol] 81 U/L Normal 46-116 [facility] Comment on above: Performed By: #### Vesta DE OLIVEIRA UMICRO #### [facility] [address] [place] [address] Dr. Yogi Naidu ALT [Catalytic activity/Vol] 14 U/L Critically low 16-63 [facility] Comment on above: Performed By: #### Vesta DE OLIVEIRA, UMICRO #### [facility] [address] [place] [address] Dr. Yogi Naidu Anion gap [Moles/Vol] 8.8 mmol/L Normal [facility] Comment on above: Performed By: #### Vesta DE OLIVEIRA, UMICRO #### [facility] [address] [place] [address] Dr. Yogi Naidu AST [Catalytic activity/Vol] 15 U/L Normal 15-37 [facility] Comment on above: Performed By: #### Vesta DE OLIVEIRA, UMICRO #### [facility] [address] [place] [address] Dr. Yogi Naidu Bilirubin [Mass/Vol] 0.6 mg/dL Normal 0.2-1.0 [facility] Comment on above: Performed By: #### DASH CULVERRO #### [facility] [address] [place] [address] Dr. Yogi Naidu Calcium [Mass/Vol] 9.2 mg/dL Normal 8.5-10.1 [facility] Comment on above: Performed By: #### DASH CULVERRO #### [facility] [address] [place] [address] Dr. Yogi Naidu Chloride [Moles/Vol] 106 mmol/L Normal 98-107 [facility] Comment on above: Performed By: #### DASH CULVERRO #### [facility] [address] [place] [address] Dr. Yogi Naidu CO2 [Moles/Vol] 28.5 mmol/L Normal 21.0-32.0 [facility] Comment on above: Performed By: #### DASH CULVERRO #### [facility] [address] [place] [address] Dr. Yogi Naidu Creatinine [Mass/Vol] 1.12 mg/dL Normal 0.70-1.30 [facility] Comment on above: Performed By: #### DASH CULVERRO #### [facility] [address] [place] [address] Dr. Yogi Naidu EGFR-AF [place] >60 Normal >=60 [facility] Comment on above: Performed By: #### DASH CULVERRO #### [facility] [address] [place] [address] Dr. Yogi Naidu EGFR-NON AF [place] >60 Normal >=60 [facility] Comment on above: Performed By: #### DASH CULVERRO #### [facility] [address] [place] [address] Dr. Yogi Naidu Globulin (S) [Mass/Vol] 2.5 g/dL Normal [facility] Comment on above: Performed By: #### DASH CULVERRO #### [facility] [address] [place] [address] Dr. Yogi Naidu Glucose [Mass/Vol] 91 mg/dL Normal 74-106 [facility] Comment on above: Performed By: #### DASH CULVERRO #### [facility] [address] [address] [address] Yogi Naidu Potassium [Moles/Vol] 4.3 mmol/L Normal 3.5-5.1 [facility] Comment on above: Performed By: #### DASH CULVERRO #### [facility] [address] [address] [address] Yogi Naidu Protein [Mass/Vol] 6.5 g/dL Normal 6.4-8.2 [facility] Comment on above: Performed By: #### DASH CULVERRO #### [facility] [address] [place] [address] Dr. Yogi Naidu Sodium [Moles/Vol] 139 mmol/L Normal 136-145 [facility] Comment on above: Performed By: #### DASH CULVERRO #### [facility] [address] [place] [address] Dr. Yogi Naidu Urea nitrogen [Mass/Vol] 25.0 mg/dL Critically high 7.0-18 .0 [facility] Comment on above: Performed By: #### DASH CULVERRO #### [facility] [address] [place] [address] Dr. Yogi Naidu Urea nitrogen/Creatinine [Mass ratio] 22.3 mg/mg Normal [facility] Comment on above: Performed By: #### DASH CULVERRO #### [facility] [address] [place] [address] Dr. Yogi Naidu Tobacco Screening.on 022 Adult depression screening assessment No [facility] [employer] DO Work Phone: Fall risk assessment a) No falls within the last year [facility] [employer] DO Work Phone: Tobacco use status CP b) No M [facility] [employer] 250 DO Work Phone: BOX TEST SENT OUTon 03-17-20 22 SENT TO REF LAB 03/17/2022 Normal [facility] Comment on above: Performed By: #### C MP, MG, PHOS, GGT #### [facility] [address] [place] [address] Dr. Yogi Naidu CBC W MANUAL DIFFon 03-17-20 22 ATYPICAL LYMPH # Normal [facility] Comment on above: Performed By: #### Vesta DE OLIVEIRA UMICRO #### [facility] [address] [place] [address] Dr. Yogi Naidu ATYPICAL LYMPH % Normal [facility] Comment on above: Performed By: #### Vesta DE OLIVEIRA UMICRO #### [facility] [address] [place] [address] Dr. Yogi Naidu BAND # Normal 0.0-0.3 [facility] Comment on above: Performed By: #### Vesta DE OLIVEIRA UMICRO #### [facility] [address] [place] [address] Dr. Yogi Naidu BAND % Normal 0-5 [facility] Comment on above: Performed By: #### Vesta DE OLIVEIRA UMICRO #### [facility] [address] [place] [address] Dr. Yogi Naidu BASOM # 0.00 103/ul Normal 0.00-0.10 [facility] Comment on above: Performed By: #### Vesta DE OLIVEIRA UMICRO #### [facility] [address] [place] [address] Dr. Yogi Naidu BASOM % 0.0 % Critically low 0.2-2.0 [facility] Comment on above: Performed By: #### Vesta RUCarole UMICRO #### [facility] [address] [place] [address] Dr. Yogi Naidu BLAST # Normal [facility] Comment on above: Performed By: #### Vesta DE OLIVEIRA UMICRO #### [facility] [address] [place] [address] Dr. Yogi Naidu BLAST % Normal [facility] Comment on above: Performed By: #### E RUR, UMICRO #### [facility] [address] [address] [address] Yogi Naidu CORRECTED WBC Normal 4.0-11.0 [facility] Comment on above: Performed By: #### Vesta DE OLIVEIRA, UMICRO #### [facility] [address] [address] [address] Yogi Naidu EOS # 0.20 103/ul Normal 0.00-0.70 [facility] Comment on above: Performed By: #### Vesta DE OLIVEIRA, UMICRO #### [facility] [address] [place] [address] Dr. Yogi Naidu EOS% 3.0 % Normal 0.9-7.0 [facility] Comment on above: Performed By: #### Vesta DE OLIVEIRA UMICRO #### [facility] [address] [place] [address] Dr. Yogi Naidu HCT 45.6 % Normal 42.0-54.0 [facility] Comment on above: Performed By: #### Vesta DE OLIVEIRA UMICRO #### [facility] [address] [place] [address] Dr. Yogi Naidu HGB 15.2 g/dl Normal 14.0-18.0 [facility] Comment on above: Performed By: #### Vesta DE OLIVEIRA, ICRO #### [facility] [address] [place] [address] Dr. Yogi Naidu LYMPHM # 0.78 103/ul Critically low 1.20-3.80 [facility] Comment on above: Performed By: #### Vesta DE OLIVEIRA, UMICRO #### [facility] [address] [place] [address] Dr. Yogi Naidu LYMPHM% 12.0 % Critically low 20.5-60.0 [facility] Comment on above: Performed By: #### Vesta DE OLIVEIRA, UMICRO #### [facility] [address] [place] [address] Dr. Yogi Naidu MCH 30.4 pg Normal 25.9-34.0 [facility] Comment on above: Performed By: #### SONU CULVERICRO #### [facility] [address] [place] [address] Dr. Yogi Naidu MCHC 33.3 g/dl Normal 29.9-35.2 [facility] Comment on above: Performed By: #### SONU CULVERICRO #### [facility] [address] [place] [address] Dr. Yogi Naidu MCV 91.2 fL Normal 80.0-94.0 [facility] Comment on above: Performed By: #### Vesta DE OLIVEIRA UMICRO #### [facility] [address] [place] [address] Dr. Yogi Naidu METAMYELOCYTE # Normal [facility] Comment on above: Performed By: #### Vesta DE OLIVEIRA UMICRO #### [facility] [address] [place] [address] Dr. Yogi Naidu METAMYELOCYTE % Normal [facility] Comment on above: Performed By: #### DASH CULVERRO #### [facility] [address] [place] [address] Dr. Yogi Naidu MONOM# 0.39 103/ul Normal 0.30-0.80 [facility] Comment on above: Performed By: #### DASH CULVERRO #### [facility] [address] [place] [address] Dr. Yogi Naidu MONOM% 6.0 % Normal 1.7-12.0 [facility] Comment on above: Performed By: #### SONU CULVERICRO #### [facility] [address] [place] [address] Dr. Yogi Naidu MPV 9.6 fL Normal 9.5-13.5 [facility] Comment on above: Performed By: #### DASH CULVERRO #### [facility] [address] [place] [address] Dr. Yogi Naidu MYELOCYTE # Normal [facility] Comment on above: Performed By: #### DASH CULVERRO #### [facility] [address] [place] [address] Dr. Yogi Naidu MYELOCYTE % Normal [facility] Comment on above: Performed By: #### Vesta DE OLIVEIRA UMICRO #### [facility] [address] [place] [address] Dr. Yogi Naidu NRBC Normal [facility] Comment on above: Performed By: #### Vesta DE OLIVEIRA UMICRO #### [facility] [address] [address] [address] Yogi Naidu PLT 180 103/ul Normal 150-450 [facility] Comment on above: Performed By: #### Vesta DE OLIVEIRA UMICRO #### [facility] [address] [place] [address] Dr. Yogi Naidu RBC 5.00 106/ul Normal 4.70-6.10 [facility] Comment on above: Performed By: #### Vesta DE OLIVEIRA UMICRO #### [facility] [address] [place] [address] Dr. Yogi Naidu RDW 14.1 % Normal 11.0-15.0 [facility] Comment on above: Performed By: #### Vesta DE OLIVEIRA UMICRO #### [facility] [address] [place] [address] Dr. Yogi Naidu SEG # 5.13 103/ul Normal 1.40-6.50 [facility] Comment on above: Performed By: #### Vesta DE OLIVEIRA UMICRO #### [facility] [address] [place] [address] Dr. Yogi Naidu SEG % 79.0 % Critically high 43.0-75.0 [facility] Comment on above: Performed By: #### Vesta DE OLIVEIRA UMICRO #### [facility] [address] [place] [address] Dr. Yogi Naidu WBC 6.5 103/ul Normal 4.0-11.0 [facility] Comment on above: Performed By: #### Vesta DE OLIVEIRA UMICRO #### [facility] [address] [place] [address] Dr. Yogi Naidu GGTon 03-17-2022 Gamma glutamyl transferase [Catalytic activity/Vol] 37 U/L Normal 15-85 [facility] Comment on above: Performed By: #### C MP, MG, PHOS, GGT #### [facility] [address] [place] [address] Dr. Yogi Naidu MAGNESIUMon 03-17-2022 Magnesium [Mass/Vol] 1.8 mg/dL Normal 1.8-2.4 [facility] Comment on above: Performed By: #### C MP, MG, PHOS, GGT #### [facility] [address] [place] [address] Dr. Yogi Naidu PHOSPHORUSon 03-17-2022 Phosphate [Mass/Vol] 2.9 mg/dL Normal 2.6-4.7 [facility] Comment on above: Performed By: #### C MP, MG, PHOS, GGT #### [facility] [address] [place] [address] Dr. Yogi Naidu PROF 14(COMP METB)on 022 Albumin [Mass/Vol] 3.9 g/dL Normal 3.4-5.0 [facility] Comment on above: Performed By: #### C MP, MG, PHOS, GGT #### [facility] [address] [place] [address] Dr. Yogi Naidu Albumin/Globulin [Mass ratio] 1.6 {ratio} Normal [facility] Comment on above: Performed By: #### C MP, MG, PHOS, GGT #### [facility] [address] [place] [address] Dr. Yogi Naidu ALP [Catalytic activity/Vol] 75 U/L Normal 46-116 [facility] Comment on above: Performed By: #### C MP, MG, PHOS, GGT #### [facility] [address] [place] [address] Dr. Yogi Naidu ALT [Catalytic activity/Vol] 20 U/L Normal 16-63 [facility] Comment on above: Performed By: #### C MP, MG, PHOS, GGT #### [facility] [address] [place] [address] Dr. Yogi Naidu Anion gap [Moles/Vol] 9.6 mmol/L Normal [facility] Comment on above: Performed By: #### C MP, MG, PHOS, GGT #### [facility] [address] [place] [address] Dr. Yogi Naidu AST [Catalytic activity/Vol] 13 U/L Critically low 15-37 [facility] Comment on above: Performed By: #### C MP, MG, PHOS, GGT #### [facility] [address] [place] [address] Dr. Yogi Naidu Bilirubin [Mass/Vol] 0.7 mg/dL Normal 0.2-1.0 [facility] Comment on above: Performed By: #### C MP, MG, PHOS, GGT #### [facility] [address] [place] [address] Dr. Yogi Naidu Calcium [Mass/Vol] 9.0 mg/dL Normal 8.5-10.1 [facility] Comment on above: Performed By: #### C MP, MG, PHOS, GGT #### [facility] [address] [place] [address] Dr. Yogi Naidu Chloride [Moles/Vol] 108 mmol/L Critically high 98-107 [facility] Comment on above: Performed By: #### C MP, MG, PHOS, GGT #### [facility] [address] [place] [address] Dr. Yogi Naidu CO2 [Moles/Vol] 28.3 mmol/L Normal 21.0-32.0 [facility] Comment on above: Performed By: #### C MP, MG, PHOS, GGT #### [facility] [address] [place] [address] Dr. Yogi Naidu Creatinine [Mass/Vol] 1.17 mg/dL Normal 0.70-1.30 [facility] Comment on above: Performed By: #### C MP, MG, PHOS, GGT #### [facility] [address] [place] [address] Dr. Yogi Naidu EGFR-AF [place] >60 Normal >=60 [facility] Comment on above: Performed By: #### C MP, MG, PHOS, GGT #### [facility] [address] [place] [address] Dr. Yogi Naidu EGFR-NON AF [place] >60 Normal >=60 [facility] Comment on above: Performed By: #### C MP, MG, PHOS, GGT #### [facility] [address] [address] [address] Yogi Naidu Globulin (S) [Mass/Vol] 2.4 g/dL Normal [facility] Comment on above: Performed By: #### C MP, MG, PHOS, GGT #### [facility] [address] [address] [address] Yogi Naidu Glucose [Mass/Vol] 102 mg/dL Normal 74-106 [facility] Comment on above: Performed By: #### C MP, MG, PHOS, GGT #### [facility] [address] [place] [address] Dr. Yogi Naidu Potassium [Moles/Vol] 4.9 mmol/L Normal 3.5-5.1 [facility] Comment on above: Performed By: #### C MP, MG, PHOS, GGT #### [facility] [address] [address] [address] Yogi Naidu Protein [Mass/Vol] 6.3 g/dL Critically low 6.4-8.2 [facility] Comment on above: Performed By: #### C MP, MG, PHOS, GGT #### [facility] [address] [place] [address] Dr. Yogi Naidu Sodium [Moles/Vol] 141 mmol/L Normal 136-145 [facility] Comment on above: Performed By: #### C MP, MG, PHOS, GGT #### [facility] [address] [place] [address] Dr. Yogi Naidu Urea nitrogen [Mass/Vol] 22.0 mg/dL Critically high 7.0-18 .0 [facility] Comment on above: Performed By: #### C MP, MG, PHOS, GGT #### [facility] [address] [place] [address] Dr. Yogi Naidu Urea nitrogen/Creatinine [Mass ratio] 18.8 mg/mg Normal [facility] Comment on above: Performed By: #### C MP, MG, PHOS, GGT #### [facility] [address] [place] [address] Dr. Yogi Naidu BOX TEST SENT OUTon 02-19-20 22 SENT TO REF LAB 02/18/2022 Normal [facility] Comment on above: Performed By: #### E MERLE DE OLIVEIRA #### [facility] [address] [place] [address] Dr. Yogi Naidu CBC W MANUAL DIFFon 02-19-20 22 ATYPICAL LYMPH # Normal [facility] Comment on above: Performed By: #### C MP, MG, PHOS, GGT #### [facility] [address] [place] [address] Dr. Yogi Naidu ATYPICAL LYMPH % Normal [facility] Comment on above: Performed By: #### C MP, MG, PHOS, GGT #### [facility] [address] [place] [address] Dr. Yogi Naidu BAND # Normal 0.0-0.3 [facility] Comment on above: Performed By: #### C MP, MG, PHOS, GGT #### [facility] [address] [place] [address] Dr. Yogi Naidu BAND % Normal 0-5 [facility] Comment on above: Performed By: #### C MP, MG, PHOS, GGT #### [facility] [address] [place] [address] Dr. Yogi Naidu BASOM # 0.00 103/ul Normal 0.00-0.10 [facility] Comment on above: Performed By: #### C MP, MG, PHOS, GGT #### [facility] [address] [place] [address] Dr. Yogi Naidu BASOM % 0.0 % Critically low 0.2-2.0 [facility] Comment on above: Performed By: #### C MP, MG, PHOS, GGT #### [facility] [address] [place] [address] Dr. Yogi Naidu BLAST # Normal [facility] Comment on above: Performed By: #### C MP, MG, PHOS, GGT #### [facility] [address] [place] [address] Dr. Yogi Naidu BLAST % Normal [facility] Comment on above: Performed By: #### C MP, MG, PHOS, GGT #### [facility] [address] [address] [address] Yogi Naidu CORRECTED WBC Normal 4.0-11.0 [facility] Comment on above: Performed By: #### C MP, MG, PHOS, GGT #### [facility] [address] [place] [address] Dr. Yogi Naidu EOS # 0.21 103/ul Normal 0.00-0.70 [facility] Comment on above: Performed By: #### C MP, MG, PHOS, GGT #### [facility] [address] [place] [address] Dr. Yogi Naidu EOS% 4.0 % Normal 0.9-7.0 [facility] Comment on above: Performed By: #### C MP, MG, PHOS, GGT #### [facility] [address] [place] [address] Dr. Yogi Naidu HCT 43.6 % Normal 42.0-54.0 [facility] Comment on above: Performed By: #### C MP, MG, PHOS, GGT #### [facility] [address] [place] [address] Dr. Yogi Naidu HGB 14.9 g/dl Normal 14.0-18.0 [facility] Comment on above: Performed By: #### C MP, MG, PHOS, GGT #### [facility] [address] [place] [address] Dr. Yogi Naidu LYMPHM # 0.62 103/ul Critically low 1.20-3.80 [facility] Comment on above: Performed By: #### C MP, MG, PHOS, GGT #### [facility] [address] [place] [address] Dr. Yogi Naidu LYMPHM% 12.0 % Critically low 20.5-60.0 [facility] Comment on above: Performed By: #### C MP, MG, PHOS, GGT #### [facility] [address] [place] [address] Dr. Yogi Naidu MCH 30.1 pg Normal 25.9-34.0 [facility] Comment on above: Performed By: #### C MP, MG, PHOS, GGT #### [facility] [address] [place] [address] Dr. Yogi Naidu MCHC 34.2 g/dl Normal 29.9-35.2 [facility] Comment on above: Performed By: #### C MP, MG, PHOS, GGT #### [facility] [address] [place] [address] Dr. Yogi Naidu MCV 88.1 fL Normal 80.0-94.0 [facility] Comment on above: Performed By: #### C MP, MG, PHOS, GGT #### [facility] [address] [place] [address] Dr. Yogi Naidu METAMYELOCYTE # Normal [facility] Comment on above: Performed By: #### C MP, MG, PHOS, GGT #### [facility] [address] [place] [address] Dr. Yogi Naidu METAMYELOCYTE % Normal [facility] Comment on above: Performed By: #### C MP, MG, PHOS, GGT #### [facility] [address] [place] [address] Dr. Yogi Naidu MONOM# 0.05 103/ul Critically low 0.30-0.80 [facility] Comment on above: Performed By: #### C MP, MG, PHOS, GGT #### [facility] [address] [place] [address] Dr. Yogi Naidu MONOM% 1.0 % Critically low 1.7-12.0 [facility] Comment on above: Performed By: #### C MP, MG, PHOS, GGT #### [facility] [address] [place] [address] Dr. Yogi Naidu MPV 9.2 fL Critically low 9.5-13.5 [facility] Comment on above: Performed By: #### C MP, MG, PHOS, GGT #### [facility] [address] [place] [address] Dr. Yogi Naidu MYELOCYTE # Normal [facility] Comment on above: Performed By: #### C MP, MG, PHOS, GGT #### [facility] [address] [place] [address] Dr. oYgi Naidu MYELOCYTE % Normal [facility] Comment on above: Performed By: #### C MP, MG, PHOS, GGT #### [facility] [address] [place] [address] Dr. Yogi Naidu NRBC Normal [facility] Comment on above: Performed By: #### C MP, MG, PHOS, GGT #### [facility] [address] [place] [address] Dr. Yogi Naidu PLT 143 103/ul Critically low 150-450 [facility] Comment on above: Performed By: #### C MP, MG, PHOS, GGT #### [facility] [address] [place] [address] Dr. Yogi Naidu RBC 4.95 106/ul Normal 4.70-6.10 [facility] Comment on above: Performed By: #### C MP, MG, PHOS, GGT #### [facility] [address] [place] [address] Dr. Yogi Naidu RDW 13.9 % Normal 11.0-15.0 [facility] Comment on above: Performed By: #### C MP, MG, PHOS, GGT #### [facility] [address] [place] [address] Dr. Yogi Naidu SEG # 4.32 103/ul Normal 1.40-6.50 [facility] Comment on above: Performed By: #### C MP, MG, PHOS, GGT #### [facility] [address] [place] [address] Dr. Yogi Naidu SEG % 83.0 % Critically high 43.0-75.0 [facility] Comment on above: Performed By: #### C MP, MG, PHOS, GGT #### [facility] [address] [place] [address] Dr. Yogi Naidu WBC 5.2 103/ul Normal 4.0-11.0 [facility] Comment on above: Performed By: #### C MP, MG, PHOS, GGT #### [facility] [address] [place] [address] Dr. Yogi Naidu GGTon 02-18-2022 Gamma glutamyl transferase [Catalytic activity/Vol] 38 U/L Normal 15-85 [facility] Comment on above: Performed By: #### C BC #### [facility] [address] [place] [address] Dr. Yogi Naidu MAGNESIUMon 02-18-2022 Magnesium [Mass/Vol] 1.8 mg/dL Normal 1.8-2.4 [facility] Comment on above: Performed By: #### C BC #### [facility] [address] [place] [address] Dr. Yogi Naidu PHOSPHORUSon 02-18-2022 Phosphate [Mass/Vol] 2.5 mg/dL Critically low 2.6-4.7 [facility] Comment on above: Performed By: #### C MP, MG, PHOS, GGT #### [facility] [address] [place] [address] Dr. Yogi Naidu PROF 14(COMP METB)on 022 Albumin [Mass/Vol] 3.8 g/dL Normal 3.4-5.0 [facility] Comment on above: Performed By: #### C MP, MG, PHOS, GGT #### [facility] [address] [place] [address] Dr. Yogi Naidu Albumin/Globulin [Mass ratio] 1.6 {ratio} Normal [facility] Comment on above: Performed By: #### C MP, MG, PHOS, GGT #### [facility] [address] [place] [address] Dr. Yogi Naidu ALP [Catalytic activity/Vol] 69 U/L Normal 46-116 [facility] Comment on above: Performed By: #### C MP, MG, PHOS, GGT #### [facility] [address] [place] [address] Dr. Yogi Naidu ALT [Catalytic activity/Vol] 17 U/L Normal 16-63 [facility] Comment on above: Performed By: #### C MP, MG, PHOS, GGT #### [facility] [address] [place] [address] Dr. Yogi Naidu Anion gap [Moles/Vol] 10.0 mmol/L Normal [facility] Comment on above: Performed By: #### C MP, MG, PHOS, GGT #### [facility] [address] [place] [address] Dr. Yogi Naidu AST [Catalytic activity/Vol] 15 U/L Normal 15-37 [facility] Comment on above: Performed By: #### C MP, MG, PHOS, GGT #### [facility] [address] [place] [address] Dr. Yogi Naidu Bilirubin [Mass/Vol] 0.7 mg/dL Normal 0.2-1.0 [facility] Comment on above: Performed By: #### C MP, MG, PHOS, GGT #### [facility] [address] [place] [address] Dr. Yogi Naidu Calcium [Mass/Vol] 8.3 mg/dL Critically low 8.5-10.1 [facility] Comment on above: Performed By: #### C MP, MG, PHOS, GGT #### [facility] [address] [place] [address] Dr. Yogi Naidu Chloride [Moles/Vol] 107 mmol/L Normal 98-107 [facility] Comment on above: Performed By: #### C MP, MG, PHOS, GGT #### [facility] [address] [place] [address] Dr. Yogi Naidu CO2 [Moles/Vol] 27.0 mmol/L Normal 21.0-32.0 [facility] Comment on above: Performed By: #### C MP, MG, PHOS, GGT #### [facility] [address] [address] [address] Yogi Naidu Creatinine [Mass/Vol] 1.29 mg/dL Normal 0.70-1.30 [facility] Comment on above: Performed By: #### C MP, MG, PHOS, GGT #### [facility] [address] [place] [address] Dr. Yogi Naidu EGFR-AF [place] >60 Normal >=60 [facility] Comment on above: Performed By: #### C MP, MG, PHOS, GGT #### [facility] [address] [place] [address] Dr. Yogi Naidu EGFR-NON AF [place] 55 mL/min/1.73m2 Critically low >=60 [facility] Comment on above: Performed By: #### C MP, MG, PHOS, GGT #### [facility] [address] [place] [address] Dr. Yogi Naidu Globulin (S) [Mass/Vol] 2.4 g/dL Normal [facility] Comment on above: Performed By: #### C MP, MG, PHOS, GGT #### [facility] [address] [place] [address] Dr. Yogi Naidu Glucose [Mass/Vol] 95 mg/dL Normal 74-106 [facility] Comment on above: Performed By: #### C MP, MG, PHOS, GGT #### [facility] [address] [place] [address] Dr. Yogi Naidu Potassium [Moles/Vol] 4.0 mmol/L Normal 3.5-5.1 [facility] Comment on above: Performed By: #### C MP, MG, PHOS, GGT #### [facility] [address] [place] [address] Dr. Yogi Naidu Protein [Mass/Vol] 6.2 g/dL Critically low 6.4-8.2 [facility] Comment on above: Performed By: #### C MP, MG, PHOS, GGT #### [facility] [address] [place] [address] Dr. Yogi Naidu Sodium [Moles/Vol] 140 mmol/L Normal 136-145 [facility] Comment on above: Performed By: #### C MP, MG, PHOS, GGT #### [facility] [address] [place] [address] Dr. Yogi Naidu Urea nitrogen [Mass/Vol] 26.0 mg/dL Critically high 7.0-18 .0 [facility] Comment on above: Performed By: #### C MP, MG, PHOS, GGT #### [facility] [address] [place] [address] Dr. Yogi Naidu Urea nitrogen/Creatinine [Mass ratio] 20.2 mg/mg Normal [facility] Comment on above: Performed By: #### C MP, MG, PHOS, GGT #### [facility] [address] [place] [address] Dr. Yogi Naidu US PROSTATEon 01-22-2022 US PROSTATE EXAMINATION: US PROSTATE HISTORY: Raised prostate specific antigen COMPARISON: No relevant comparison available. TECHNIQUE: Ultrasound exam for the prostate with an endorectal transducer was performed utilizing real-time and color duplex Doppler sonography. FINDINGS: Intraprocedural transrectal prostate images The prostate gland is enlarged in size measuring 6.1 x 5.6 x 4.8 cm with volume of 84 mL. A needle is seen traversing multiple portions of the prostate gland. No focal prostate mass is observed. IMPRESSION: Images from ultrasound-guided prostate biopsy Electronically authenticated by: SUSAN POPE Date: 2022-01-22 16:08 Normal [facility] Covid-19 PCR (CVDTB)on SARS-CoV-2 (COVID-19) RNA LUZ MARIA+probe Ql (Unsp spec) Not detected Normal NOT DETECTED [facility] Comment on above: Result Comment: This test is not yet approved or cleared by the [place] FDA. When there are no FDA-approved or cleared tests available, and other criteria are met, FDA can make tests available under an emergency access mechanism called an Emergency Use Authorization (EUA). The EUA for this test is supported by the [place] of Health and Human Service's (HHS's) declaration that circumstances exist to justify the emergency use of in vitro diagnostics for the detection and/or diagnosis of the virus that causes COVID-19. This EUA will remain in effect (meaning this test can be used) for the duration of the COVID-19 declaration justifying emergency of IVDs, unless it is terminated or revoked by FDA (after which the test may no longer be used). When diagnostic testing is negative, the possibility of a false negative should be considered in the context of a patient's recent exposures and the presence of clinical signs and symptoms consistent with SARS-CoV-2. Performed By: #### E MERLE DE OLIVEIRA #### [facility] [address] [place] [address] Dr. Yogi Naidu HEP C RNA BY PCR QUANT (NON- GRAPHICAL) Won 01-14-2022 HCV Genotype RTNI Normal [facility] Comment on above: Result Comment: Not indicated Performed By: #### C MP, MG, PHOS, GGT #### [facility] [address] [place] [address] Dr. Yogi Naidu HCV log10 UPTCAL Normal [facility] Comment on above: Result Comment: Unab le to calculate result since non-numeric result obtained for component test. Performed By: #### C MP, MG, PHOS, GGT #### [facility] [address] [place] [address] Dr. Yogi Naidu Hepatitis C Quantitation Not detected Normal [facility] Comment on above: Performed By: #### C MP, MG, PHOS, GGT #### [facility] [address] [place] [address] Dr. Yogi Naidu Test Information: Comment Normal [facility] Comment on above: Result Comment: The quantitative range of this assay is 15 IU/mL to 100 million IU/mL. Performed By: #### C MP, MG, PHOS, GGT #### [facility] [address] [place] [address] Dr. Yogi Naidu BOX TEST SENT OUTon 01-14-20 22 SENT TO REF LAB 01/13/2022 Normal [facility] Comment on above: Performed By: #### B OX #### [facility] [address] [place] [address] Dr. Yogi Naidu CBC W MANUAL DIFFon 01-14-20 22 ANISOCYTOSIS SLIGHT Normal [facility] Comment on above: Performed By: #### C MP, MG, PHOS, GGT #### [facility] [address] [place] [address] [address] Yogi Naidu ATYPICAL LYMPH # Normal [facility] Comment on above: Performed By: #### C MP, MG, PHOS, GGT #### [facility] [address] [place] [address] Dr. Yogi Naidu ATYPICAL LYMPH % Normal [facility] Comment on above: Performed By: #### C MP, MG, PHOS, GGT #### [facility] [address] [place] [address] Dr. Yogi Naidu BAND # Normal 0.0-0.3 [facility] Comment on above: Performed By: #### C MP, MG, PHOS, GGT #### [facility] [address] [place] [address] Dr. Yogi Naidu BAND % Normal 0-5 [facility] Comment on above: Performed By: #### C MP, MG, PHOS, GGT #### [facility] [address] [place] [address] Dr. Yogi Naidu BASOM # 0.00 103/ul Normal 0.00-0.10 [facility] Comment on above: Performed By: #### C MP, MG, PHOS, GGT #### [facility] [address] [place] [address] Dr. Yogi Naidu BASOM % 0.0 % Critically low 0.2-2.0 [facility] Comment on above: Performed By: #### C MP, MG, PHOS, GGT #### [facility] [address] [place] [address] Dr. Yogi Naidu BLAST # Normal [facility] Comment on above: Performed By: #### C MP, MG, PHOS, GGT #### [facility] [address] [place] [address] Dr. Yogi Naidu BLAST % Normal [facility] Comment on above: Performed By: #### C MP, MG, PHOS, GGT #### [facility] [address] [place] [address] Dr. Yogi Naidu CORRECTED WBC Normal 4.0-11.0 [facility] Comment on above: Performed By: #### C MP, MG, PHOS, GGT #### [facility] [address] [place] [address] Dr. Yogi Naidu EOS # 0.10 103/ul Normal 0.00-0.70 [facility] Comment on above: Performed By: #### C MP, MG, PHOS, GGT #### [facility] [address] [place] [address] Dr. Yogi Naidu EOS% 2.0 % Normal 0.9-7.0 [facility] Comment on above: Performed By: #### C MP, MG, PHOS, GGT #### [facility] [address] [place] [address] Dr. Yogi Naidu HCT 42.9 % Normal 42.0-54.0 [facility] Comment on above: Performed By: #### C MP, MG, PHOS, GGT #### [facility] [address] [place] [address] Dr. Yogi Naidu HGB 14.6 g/dl Normal 14.0-18.0 [facility] Comment on above: Performed By: #### C MP, MG, PHOS, GGT #### [facility] [address] [place] [address] Dr. Yogi Naidu LYMPHM # 0.56 103/ul Critically low 1.20-3.80 [facility] Comment on above: Performed By: #### C MP, MG, PHOS, GGT #### [facility] [address] [place] [address] Dr. Yogi Naidu LYMPHM% 11.0 % Critically low 20.5-60.0 [facility] Comment on above: Performed By: #### C MP, MG, PHOS, GGT #### [facility] [address] [place] [address] Dr. Yogi Naidu MCH 30.8 pg Normal 25.9-34.0 [facility] Comment on above: Performed By: #### C MP, MG, PHOS, GGT #### [facility] [address] [place] [address] [address] Yogi Naidu MCHC 34.0 g/dl Normal 29.9-35.2 [facility] Comment on above: Performed By: #### C MP, MG, PHOS, GGT #### [facility] [address] [place] [address] [address] Yogi Naidu MCV 90.5 fL Normal 80.0-94.0 [facility] Comment on above: Performed By: #### C MP, MG, PHOS, GGT #### [facility] [address] [place] [address] [address] Yogi Naidu METAMYELOCYTE # Normal [facility] Comment on above: Performed By: #### C MP, MG, PHOS, GGT #### [facility] [address] [place] [address] Dr. Yogi Naidu METAMYELOCYTE % Normal [facility] Comment on above: Performed By: #### C MP, MG, PHOS, GGT #### [facility] [address] [place] [address] Dr. Yogi Naidu MONOM# 0.26 103/ul Critically low 0.30-0.80 [facility] Comment on above: Performed By: #### C MP, MG, PHOS, GGT #### [facility] [address] [place] [address] Dr. Yogi Naidu MONOM% 5.0 % Normal 1.7-12.0 [facility] Comment on above: Performed By: #### C MP, MG, PHOS, GGT #### [facility] [address] [place] [address] Dr. Yogi Naidu MPV 9.8 fL Normal 9.5-13.5 [facility] Comment on above: Performed By: #### C MP, MG, PHOS, GGT #### [facility] [address] [place] [address] Dr. Yogi Naidu MYELOCYTE # Normal [facility] Comment on above: Performed By: #### C MP, MG, PHOS, GGT #### [facility] [address] [place], [place] [id number] Dr. Yogi Naidu MYELOCYTE % Normal [facility] Comment on above: Performed By: #### C MP, MG, PHOS, GGT #### [facility] [address] [place] [address] Dr. Yogi Naidu NRBC Normal [facility] Comment on above: Performed By: #### C MP, MG, PHOS, GGT #### [facility] [address] [place] [address] Dr. Yogi Naidu PLT 172 103/ul Normal 150-450 [facility] Comment on above: Performed By: #### C MP, MG, PHOS, GGT #### [facility] [address] [place] [address] Dr. Yogi Naidu POIKILOCYTOSIS 1+ Normal [facility] Comment on above: Performed By: #### C MP, MG, PHOS, GGT #### [facility] [address] [place] [address] Dr. Yogi Naidu RBC 4.74 106/ul Normal 4.70-6.10 [facility] Comment on above: Performed By: #### C MP, MG, PHOS, GGT #### [facility] [address] [place] [address] Dr. Yogi Naidu RDW 13.9 % Normal 11.0-15.0 [facility] Comment on above: Performed By: #### C MP, MG, PHOS, GGT #### [facility] [address] [place] [address] Dr. Yogi Naidu SEG # 4.18 103/ul Normal 1.40-6.50 [facility] Comment on above: Performed By: #### C MP, MG, PHOS, GGT #### [facility] [address] [place] [address] Dr. Yogi Naidu SEG % 82.0 % Critically high 43.0-75.0 [facility] Comment on above: Performed By: #### C MP, MG, PHOS, GGT #### [facility] [address] [place] [address] Dr. Yogi Naidu TEAR DROP CELLS 1+ Normal [facility] Comment on above: Performed By: #### C MP, MG, PHOS, GGT #### [facility] [address] [place] [address] [address] Yogi Naidu WBC 5.1 103/ul Normal 4.0-11.0 [facility] Comment on above: Performed By: #### C MP, MG, PHOS, GGT #### [facility] [address] [place] [address] Dr. Yogi Naidu GGTon 01-13-2022 Gamma glutamyl transferase [Catalytic activity/Vol] 35 U/L Normal 15-85 [facility] Comment on above: Performed By: #### B OX #### [facility] [address] [place] [address] Dr. Yogi Naidu LIPID PROFILEon 01-13-2022 CHOL-HDL RATIO NORM SEE BELOW Normal [facility] Comment on above: Result Comment: 3.3 - 4.4 LOW RISK 4.4 - 7.1 AVERAGE RISK 7.1 - 11.0 MODERATE RISK >11.0 HIGH RISK Performed By: #### B OX #### [facility] [address] [place] [address] Dr. Yogi Naidu Cholesterol [Mass/Vol] 183 mg/dL Normal <=200 [facility] Comment on above: Performed By: #### B OX #### [facility] [address] [place] [address] Dr. Yogi Naidu Cholesterol in HDL [Mass/Vol] 45 mg/dL Normal 40-60 [facility] Comment on above: Performed By: #### B OX #### [facility] [address] [place] [address] Dr. Yogi Naidu Cholesterol in LDL [Mass/Vol] 127.2 mg/dL Normal [facility] Comment on above: Performed By: #### B OX #### [facility] [address] [place] [address] Dr. Yogi Naidu Cholesterol.total/Choles terol in HDL [Mass ratio] 4.1 {ratio} Normal [facility] Comment on above: Performed By: #### B OX #### [facility] [address] [place] [address] [address] Yogi Naidu HDL NORMAL > or = 60 mg/dl - LO W CARDIOVASCULAR RISK <40 mg/dl - HIGH CARDIOVASCULAR RISK Normal [facility] Comment on above: Performed By: #### B OX #### [facility] [address] [place] [address] [address] Yogi Naidu LDL CALC NORMAL SEE BELOW Normal [facility] Comment on above: Result Comment: <100 mg/dl OPTIMAL 100 - 129 mg/dl NEAR OR ABOVE OPTIMAL 130 - 159 mg/dl BORDERLINE HIGH 160 - 189 mg/dl HIGH >190 mg/dl VERY HIGH Performed By: #### B OX #### [facility] [address] [place] [address] Dr. Yogi Naidu Triglyceride [Mass/Vol] 54 mg/dL Normal <=150 [facility] Comment on above: Performed By: #### B OX #### [facility] [address] [place] [address] Dr. Yogi Naidu VLDL CALC 10.8 mg/dL Normal [facility] Comment on above: Performed By: #### B OX #### [facility] [address] [place] [address] Dr. Yogi Naidu MAGNESIUMon 01-13-2022 Magnesium [Mass/Vol] 1.7 mg/dL Critically low 1.8-2.4 [facility] Comment on above: Performed By: #### B OX #### [facility] [address] [place] [address] Dr. Yogi Naidu PHOSPHORUSon 01-13-2022 Phosphate [Mass/Vol] 2.8 mg/dL Normal 2.6-4.7 [facility] Comment on above: Performed By: #### B OX #### [facility] [address] [place] [address] Dr. Yogi Naidu PROF 14(COMP METB)on 022 Albumin [Mass/Vol] 3.9 g/dL Normal 3.4-5.0 [facility] Comment on above: Performed By: #### B OX #### [facility] [address] [place] [address] Dr. Yogi Naidu Albumin/Globulin [Mass ratio] 1.7 {ratio} Normal [facility] Comment on above: Performed By: #### B OX #### [facility] [address] [place] [address] Dr. Yogi Naidu ALP [Catalytic activity/Vol] 68 U/L Normal 46-116 [facility] Comment on above: Performed By: #### B OX #### [facility] [address] [place] [address] Dr. Yogi Naidu ALT [Catalytic activity/Vol] 14 U/L Critically low 16-63 [facility] Comment on above: Performed By: #### B OX #### [facility] [address] [place] [address] Dr. Yogi Naidu Anion gap [Moles/Vol] 11.9 mmol/L Normal [facility] Comment on above: Performed By: #### B OX #### [facility] [address] [place] [address] Dr. Yogi Naidu AST [Catalytic activity/Vol] 13 U/L Critically low 15-37 [facility] Comment on above: Performed By: #### B OX #### [facility] [address] [place] [address] Dr. Yogi Naidu Bilirubin [Mass/Vol] 0.5 mg/dL Normal 0.2-1.0 [facility] Comment on above: Performed By: #### B OX #### [facility] [address] [place] [address] Dr. Yogi Naidu Calcium [Mass/Vol] 8.7 mg/dL Normal 8.5-10.1 [facility] Comment on above: Performed By: #### B OX #### [facility] [address] [place] [address] Dr. Yogi Naidu Chloride [Moles/Vol] 110 mmol/L Critically high 98-107 [facility] Comment on above: Performed By: #### B OX #### [facility] [address] [place] [address] Dr. Yogi Naidu CO2 [Moles/Vol] 26.3 mmol/L Normal 21.0-32.0 [facility] Comment on above: Performed By: #### B OX #### [facility] [address] [address] [address] Yogi Naidu Creatinine [Mass/Vol] 1.24 mg/dL Normal 0.70-1.30 [facility] Comment on above: Performed By: #### B OX #### [facility] [address] [address] [address] Yogi Naidu EGFR-AF [place] >60 Normal >=60 [facility] Comment on above: Performed By: #### B OX #### [facility] [address] [place] [address] [address] Yogi Naidu EGFR-NON AF [place] 58 mL/min/1.73m2 Critically low >=60 [facility] Comment on above: Performed By: #### B OX #### [facility] [address] [place] [address] Dr. Yogi Naidu Globulin (S) [Mass/Vol] 2.3 g/dL Normal [facility] Comment on above: Performed By: #### B OX #### [facility] [address] [address] [address] Yogi Naidu Glucose [Mass/Vol] 103 mg/dL Normal 74-106 [facility] Comment on above: Performed By: #### B OX #### [facility] [address] [place] [address] Dr. Yogi Naidu Potassium [Moles/Vol] 4.2 mmol/L Normal 3.5-5.1 [facility] Comment on above: Performed By: #### B OX #### [facility] [address] [address] [address] Yogi Naidu Protein [Mass/Vol] 6.2 g/dL Critically low 6.4-8.2 [facility] Comment on above: Performed By: #### B OX #### [facility] [address] [address] [address] Yogi Naidu Sodium [Moles/Vol] 144 mmol/L Normal 136-145 [facility] Comment on above: Performed By: #### B OX #### [facility] [address] [place] [address] Dr. Yogi Naidu Urea nitrogen [Mass/Vol] 26.0 mg/dL Critically high 7.0-18 .0 [facility] Comment on above: Performed By: #### B OX #### [facility] [address] [place] [address] Dr. Yogi Naidu Urea nitrogen/Creatinine [Mass ratio] 21.0 mg/mg Normal [facility] Comment on above: Performed By: #### B OX #### [facility] [address] [place] [address] Dr. Yogi Naidu PROTIMEon 01-13-2022 INR Coag (PPP) [Relative time] 1.06 {INR} Normal [facility] Comment on above: Performed By: #### C MP, MG, PHOS, GGT #### [facility] [address] [place] [address] Dr. Yogi Naidu INR GUIDELINES SEE BELOW Normal [facility] Comment on above: Result Comment: LENI RED INR: 2.0 - 3.0 CONDITIONS NOT LISTED BELOW 2.5 - 3.5 FOR PROSTHETIC HEART VALVE REPLACEMENT 2.5 - 3.5 RECURRENT THROMBOSIS Performed By: #### C MP, MG, PHOS, GGT #### [facility] [address] [place] [address] Dr. Yogi Naidu PT Coag (PPP) [Time] 11.4 s Normal 9.0-11.6 [facility] Comment on above: Performed By: #### C MP, MG, PHOS, GGT #### [facility] [address] [place] [address] Dr. Yogi Naidu PTTon 01-13-2022 aPTT Coag (Bld) [Time] 28.7 s Normal 22.3-36.2 Th e [facility] Comment on above: Performed By: #### C MP, MG, PHOS, GGT #### [facility] [address] [place] [address] Dr. Yogi Naidu BOX TEST SENT OUTon 12-18-19 SENT TO REF LAB 12/17/2021 Normal [facility] Comment on above: Performed By: #### C MP, MG, PHOS, GGT #### [facility] [address] [place] [address] Dr. Yogi Naidu CBC AUTO DIFFon 12-17-2021 BASO # 0.1 103/ul Normal 0.0-0.1 [facility] Comment on above: Performed By: #### C BC #### [facility] [address] [place] [address] Dr. Yogi Naidu Basophils/100 WBC (Bld) 1.1 % Normal 0.2-2.0 [facility] Comment on above: Performed By: #### C BC #### [facility] [address] [place] [address] Dr. Yogi Naidu EO # 0.2 103/ul Normal 0.0-0.7 [facility] Comment on above: Performed By: #### C BC #### [facility] [address] [place] [address] Dr. Yogi Naidu Eosinophils/100 WBC (Bld) 4.1 % Normal 0.9-7.0 [facility] Comment on above: Performed By: #### C BC #### [facility] [address] [place] [address] Dr. Yogi Naidu Erythrocyte distribution width (RBC) [Ratio] 13.7 % Normal 11.0-15.0 [facility] Comment on above: Performed By: #### C BC #### [facility] [address] [place] [address] Dr. Yogi Naidu Hematocrit (Bld) [Volume fraction] 45.6 % Normal 42.0-54.0 [facility] Comment on above: Performed By: #### C BC #### [facility] [address] [place] [address] Dr. Yogi Naidu Hemoglobin (Bld) [Mass/Vol] 15.1 g/dL Normal 14.0-18.0 [facility] Comment on above: Performed By: #### C BC #### [facility] [address] [place] [address] Dr. Yogi Naidu IG # 0.01 10e3/ul Normal 0.00-0.03 [facility] Comment on above: Performed By: #### C BC #### [facility] [address] [place] [address] Dr. Yogi Naidu IG % 0.2 % Normal 0.0-0.5 [facility] Comment on above: Performed By: #### C BC #### [facility] [address] [place] [address] Dr. Yogi Naidu LYMPH # 0.7 103/ul Critically low 1.2-3.8 [facility] Comment on above: Performed By: #### C BC #### [facility] [address] [place] [address] Dr. Yogi Naidu Lymphocytes/100 WBC (Bld) 12.4 % Critically low 20.5-60.0 [facility] Comment on above: Performed By: #### C BC #### [facility] [address] [place] [address] Dr. Yogi Naidu MANUAL DIFF REQ NO Normal [facility] Comment on above: Performed By: #### C BC #### [facility] [address] [place] [address] Dr. Yogi Naidu MCH (RBC) [Entitic mass] 30.1 pg Normal 25.9-34.0 [facility] Comment on above: Performed By: #### C BC #### [facility] [address] [place] [address] Dr. Yogi Naidu MCHC (RBC) [Mass/Vol] 33.1 g/dL Normal 29.9-35.2 [facility] Comment on above: Performed By: #### C BC #### [facility] [address] [place] [address] Dr. Yogi Naidu MCV (RBC) [Entitic vol] 90.8 fL Normal 80.0-94.0 [facility] Comment on above: Performed By: #### C BC #### [facility] [address] [place] [address] Dr. Yogi Naidu MONO # 0.3 103/ul Normal 0.3-0.8 [facility] Comment on above: Performed By: #### C BC #### [facility] [address] [address] [address] Yogi Naidu Monocytes/100 WBC (Bld) 5.5 % Normal 1.7-12.0 [facility] Comment on above: Performed By: #### C BC #### [facility] [address] [address] [address] Yogi Naidu NEUT # 4.4 103/ul Normal 1.4-6.5 [facility] Comment on above: Performed By: #### C BC #### [facility] [address] [place] [address] Dr. Yogi Naidu Neutrophils/100 WBC (Bld) 76.7 % Critically high 43.0-75.0 [facility] Comment on above: Performed By: #### C BC #### [facility] [address] [place] [address] Dr. Yogi Naidu Platelet mean volume (Bld) [Entitic vol] 9.5 fL Normal 9.5-13.5 [facility] Comment on above: Performed By: #### C BC #### [facility] [address] [place] [address] Dr. Yogi Naidu PLT 157 103/ul Normal 150-450 [facility] Comment on above: Performed By: #### C BC #### [facility] [address] [place] [address] Dr. Yogi Naidu RBC 5.02 106/ul Normal 4.70-6.10 [facility] Comment on above: Performed By: #### C BC #### [facility] [address] [place] [address] Dr. Yogi Naidu WBC 5.7 103/ul Normal 4.0-11.0 [facility] Comment on above: Performed By: #### C BC #### [facility] [address] [place] [address] Dr. Yogi Naidu GGTon 12-17-2021 Gamma glutamyl transferase [Catalytic activity/Vol] 35 U/L Normal 15-85 [facility] Comment on above: Performed By: #### C MP, MG, PHOS, GGT #### [facility] [address] [place] [address] Dr. Yogi Naidu MAGNESIUMon 12-17-2021 Magnesium [Mass/Vol] 1.6 mg/dL Critically low 1.8-2.4 [facility] Comment on above: Performed By: #### C MP, MG, PHOS, GGT #### [facility] [address] [place] [address] Dr. Yogi Naidu PHOSPHORUSon 12-17-2021 Phosphate [Mass/Vol] 2.9 mg/dL Normal 2.6-4.7 [facility] Comment on above: Performed By: #### C MP, MG, PHOS, GGT #### [facility] [address] [place] [address] Dr. Yogi Naidu PROF 14(COMP METB)on 022 Albumin [Mass/Vol] 3.8 g/dL Normal 3.4-5.0 [facility] Comment on above: Performed By: #### C MP, MG, PHOS, GGT #### [facility] [address] [place] [address] Dr. Yogi Naidu Albumin/Globulin [Mass ratio] 1.6 {ratio} Normal [facility] Comment on above: Performed By: #### C MP, MG, PHOS, GGT #### [facility] [address] [place] [address] Dr. Yogi Naidu ALP [Catalytic activity/Vol] 74 U/L Normal 46-116 [facility] Comment on above: Performed By: #### C MP, MG, PHOS, GGT #### [facility] [address] [place] [address] Dr. Yogi Naidu ALT [Catalytic activity/Vol] 21 U/L Normal 16-63 [facility] Comment on above: Performed By: #### C MP, MG, PHOS, GGT #### [facility] [address] [place] [address] Dr. Yogi Naidu Anion gap [Moles/Vol] 13.2 mmol/L Normal [facility] Comment on above: Performed By: #### C MP, MG, PHOS, GGT #### [facility] [address] [place] [address] Dr. Yogi Naidu AST [Catalytic activity/Vol] 14 U/L Critically low 15-37 [facility] Comment on above: Performed By: #### C MP, MG, PHOS, GGT #### [facility] [address] [place] [address] Dr. Yogi Naidu Bilirubin [Mass/Vol] 0.6 mg/dL Normal 0.2-1.0 [facility] Comment on above: Performed By: #### C MP, MG, PHOS, GGT #### [facility] [address] [place] [address] Dr. Yogi Naidu Calcium [Mass/Vol] 8.5 mg/dL Normal 8.5-10.1 [facility] Comment on above: Performed By: #### C MP, MG, PHOS, GGT #### [facility] [address] [place] [address] Dr. Yogi Naidu Chloride [Moles/Vol] 109 mmol/L Critically high 98-107 [facility] Comment on above: Performed By: #### C MP, MG, PHOS, GGT #### [facility] [address] [place] [address] Dr. Yogi Naidu CO2 [Moles/Vol] 24.9 mmol/L Normal 21.0-32.0 [facility] Comment on above: Performed By: #### C MP, MG, PHOS, GGT #### [facility] [address] [place] [address] Dr. Yogi Naidu Creatinine [Mass/Vol] 1.22 mg/dL Normal 0.70-1.30 [facility] Comment on above: Performed By: #### C MP, MG, PHOS, GGT #### [facility] [address] [place] [address] Dr. Yogi Naidu EGFR-AF [place] >60 Normal >=60 [facility] Comment on above: Performed By: #### C MP, MG, PHOS, GGT #### [facility] [address] [address] [address] Yogi Naidu EGFR-NON AF [place] 59 mL/min/1.73m2 Critically low >=60 [facility] Comment on above: Performed By: #### C MP, MG, PHOS, GGT #### [facility] [address] [place] [address] Dr. Yogi Naidu Globulin (S) [Mass/Vol] 2.4 g/dL Normal [facility] Comment on above: Performed By: #### C MP, MG, PHOS, GGT #### [facility] [address] [address] [address] Yogi Naidu Glucose [Mass/Vol] 94 mg/dL Normal 74-106 [facility] Comment on above: Performed By: #### C MP, MG, PHOS, GGT #### [facility] [address] [place] [address] Dr. Yogi Naidu Potassium [Moles/Vol] 4.1 mmol/L Normal 3.5-5.1 [facility] Comment on above: Performed By: #### C MP, MG, PHOS, GGT #### [facility] [address] [place] [address] Dr. Yogi Naidu Protein [Mass/Vol] 6.2 g/dL Critically low 6.4-8.2 [facility] Comment on above: Performed By: #### C MP, MG, PHOS, GGT #### [facility] [address] [place] [address] Dr. Yogi Naidu Sodium [Moles/Vol] 143 mmol/L Normal 136-145 [facility] Comment on above: Performed By: #### C MP, MG, PHOS, GGT #### [facility] [address] [place] [address] Dr. Yogi Naidu Urea nitrogen [Mass/Vol] 21.0 mg/dL Critically high 7.0-18 .0 [facility] Comment on above: Performed By: #### C MP, MG, PHOS, GGT #### [facility] [address] [place] [address] Dr. Yogi Naidu Urea nitrogen/Creatinine [Mass ratio] 17.2 mg/mg Normal [facility] Comment on above: Performed By: #### C MP, MG, PHOS, GGT #### [facility] [address] [place] [address] Dr. Yogi Naidu BOX TEST SENT OUTon 11-22-19 22 SENT TO REF LAB 11/21/2021 Normal [facility] Comment on above: Performed By: #### C MP, MG, PHOS, GGT #### [facility] [address] [place] [address] Dr. Yogi Naidu CBC W MANUAL DIFFon 11-22-19 22 ATYPICAL LYMPH # Normal [facility] Comment on above: Performed By: #### C MP, MG, PHOS, GGT #### [facility] [address] [place] [address] Dr. Yogi Naidu ATYPICAL LYMPH % Normal [facility] Comment on above: Performed By: #### C MP, MG, PHOS, GGT #### [facility] [address] [place] [address] Dr. Yogi Naidu BAND # 0.1 103/ul Normal 0.0-0.3 [facility] Comment on above: Performed By: #### C MP, MG, PHOS, GGT #### [facility] [address] [place] [address] Dr. Yogi Naidu BAND % 2 % Normal 0-5 [facility] Comment on above: Performed By: #### C MP, MG, PHOS, GGT #### [facility] [address] [place] [address] Dr. Yogi Naidu BASOM # 0.00 103/ul Normal 0.00-0.10 [facility] Comment on above: Performed By: #### C MP, MG, PHOS, GGT #### [facility] [address] [place] [address] Dr. Yogi Naidu BASOM % 0.0 % Critically low 0.2-2.0 [facility] Comment on above: Performed By: #### C MP, MG, PHOS, GGT #### [facility] [address] [place] [address] Dr. Yogi Naidu BLAST # Normal [facility] Comment on above: Performed By: #### C MP, MG, PHOS, GGT #### [facility] [address] [place] [address] Dr. Yogi Naidu BLAST % Normal [facility] Comment on above: Performed By: #### C MP, MG, PHOS, GGT #### [facility] [address] [place] [address] Dr. Yogi Naidu CORRECTED WBC Normal 4.0-11.0 [facility] Comment on above: Performed By: #### C MP, MG, PHOS, GGT #### [facility] [address] [place] [address] Dr. Yogi Naidu EOS # 0.19 103/ul Normal 0.00-0.70 [facility] Comment on above: Performed By: #### C MP, MG, PHOS, GGT #### [facility] [address] [place] [address] Dr. Yogi Naidu EOS% 3.0 % Normal 0.9-7.0 [facility] Comment on above: Performed By: #### C MP, MG, PHOS, GGT #### [facility] [address] [place] [address] Dr. Yogi Naidu HCT 46.5 % Normal 42.0-54.0 [facility] Comment on above: Performed By: #### C MP, MG, PHOS, GGT #### [facility] [address] [place] [address] Dr. Yogi Naidu HGB 15.5 g/dl Normal 14.0-18.0 [facility] Comment on above: Performed By: #### C MP, MG, PHOS, GGT #### [facility] [address] [place] [address] Dr. Yogi aNidu LYMPHM # 0.50 103/ul Critically low 1.20-3.80 [facility] Comment on above: Performed By: #### C MP, MG, PHOS, GGT #### [facility] [address] [place] [address] Dr. Yogi Naidu LYMPHM% 8.0 % Critically low 20.5-60.0 [facility] Comment on above: Performed By: #### C MP, MG, PHOS, GGT #### [facility] [address] [place] [address] Dr. Yogi Naidu MCH 30.2 pg Normal 25.9-34.0 [facility] Comment on above: Performed By: #### C MP, MG, PHOS, GGT #### [facility] [address] [place] [address] Dr. Yogi Naidu MCHC 33.3 g/dl Normal 29.9-35.2 [facility] Comment on above: Performed By: #### C MP, MG, PHOS, GGT #### [facility] [address] [place] [address] Dr. Yogi Naidu MCV 90.5 fL Normal 80.0-94.0 [facility] Comment on above: Performed By: #### C MP, MG, PHOS, GGT #### [facility] [address] [place] [address] Dr. Yogi Naidu METAMYELOCYTE # Normal [facility] Comment on above: Performed By: #### C MP, MG, PHOS, GGT #### [facility] [address] [place] [address] Dr. Yogi Naidu METAMYELOCYTE % Normal [facility] Comment on above: Performed By: #### C MP, MG, PHOS, GGT #### [facility] [address] [place] [address] Dr. Yogi Naidu MONOM# 0.06 103/ul Critically low 0.30-0.80 [facility] Comment on above: Performed By: #### C MP, MG, PHOS, GGT #### [facility] [address] [place] [address] Dr. Yogi Naidu MONOM% 1.0 % Critically low 1.7-12.0 [facility] Comment on above: Performed By: #### C MP, MG, PHOS, GGT #### [facility] [address] [place] [address] Dr. Yogi Naidu MPV 9.6 fL Normal 9.5-13.5 [facility] Comment on above: Performed By: #### C MP, MG, PHOS, GGT #### [facility] [address] [address] [address] Yogi Naidu MYELOCYTE # Normal [facility] Comment on above: Performed By: #### C MP, MG, PHOS, GGT #### [facility] [address] [address] [address] Yogi Naidu MYELOCYTE % Normal [facility] Comment on above: Performed By: #### C MP, MG, PHOS, GGT #### [facility] [address] [address] [address] Yogi Naidu NRBC Normal [facility] Comment on above: Performed By: #### C MP, MG, PHOS, GGT #### [facility] [address] [place] [address] Dr. Yogi Naidu PLT 185 103/ul Normal 150-450 [facility] Comment on above: Performed By: #### C MP, MG, PHOS, GGT #### [facility] [address] [address] [address] Yogi Naidu RBC 5.14 106/ul Normal 4.70-6.10 [facility] Comment on above: Performed By: #### C MP, MG, PHOS, GGT #### [facility] [address] [place] [address] Dr. Yogi Naidu RDW 14.0 % Normal 11.0-15.0 [facility] Comment on above: Performed By: #### C MP, MG, PHOS, GGT #### [facility] [address] [address] [address] Yogi Naidu SEG # 5.33 103/ul Normal 1.40-6.50 [facility] Comment on above: Performed By: #### C MP, MG, PHOS, GGT #### [facility] [address] [address] [address] Yogi Naidu SEG % 86.0 % Critically high 43.0-75.0 [facility] Comment on above: Performed By: #### C MP, MG, PHOS, GGT #### [facility] [address] [place] [address] Dr. Yogi Naidu WBC 6.2 103/ul Normal 4.0-11.0 [facility] Comment on above: Performed By: #### C MP, MG, PHOS, GGT #### [facility] [address] [place] [address] Dr. Yogi Naidu GGTon 11-21-2021 Gamma glutamyl transferase [Catalytic activity/Vol] 35 U/L Normal 15-85 [facility] Comment on above: Performed By: #### C MP, MG, PHOS, GGT #### [facility] [address] [place] [address] Dr. Yogi Naidu MAGNESIUMon 11-21-2021 Magnesium [Mass/Vol] 1.9 mg/dL Normal 1.8-2.4 [facility] Comment on above: Performed By: #### C MP, MG, PHOS, GGT #### [facility] [address] [place] [address] Dr. Yogi Naidu PHOSPHORUSon 11-21-2021 Phosphate [Mass/Vol] 3.0 mg/dL Normal 2.6-4.7 [facility] Comment on above: Performed By: #### C MP, MG, PHOS, GGT #### [facility] [address] [place] [address] Dr. Yogi Naidu PROF 14(COMP METB)on 022 Albumin [Mass/Vol] 3.8 g/dL Normal 3.4-5.0 [facility] Comment on above: Performed By: #### C MP, MG, PHOS, GGT #### [facility] [address] [place] [address] Dr. Yogi Naidu Albumin/Globulin [Mass ratio] 1.7 {ratio} Normal [facility] Comment on above: Performed By: #### C MP, MG, PHOS, GGT #### [facility] [address] [place] [address] Dr. Yogi Naidu ALP [Catalytic activity/Vol] 80 U/L Normal 46-116 [facility] Comment on above: Performed By: #### C MP, MG, PHOS, GGT #### [facility] [address] [place] [address] Dr. Yogi Naidu ALT [Catalytic activity/Vol] 21 U/L Normal 16-63 [facility] Comment on above: Performed By: #### C MP, MG, PHOS, GGT #### [facility] [address] [place] [address] Dr. Yogi Naidu Anion gap [Moles/Vol] 13.7 mmol/L Normal [facility] Comment on above: Performed By: #### C MP, MG, PHOS, GGT #### [facility] [address] [place] [address] Dr. Yogi Naidu AST [Catalytic activity/Vol] 15 U/L Normal 15-37 [facility] Comment on above: Performed By: #### C MP, MG, PHOS, GGT #### [facility] [address] [place] [address] Dr. Yogi Naidu Bilirubin [Mass/Vol] 0.6 mg/dL Normal 0.2-1.0 [facility] Comment on above: Performed By: #### C MP, MG, PHOS, GGT #### [facility] [address] [place] [address] Dr. Yogi Naidu Calcium [Mass/Vol] 8.9 mg/dL Normal 8.5-10.1 [facility] Comment on above: Performed By: #### C MP, MG, PHOS, GGT #### [facility] [address] [place] [address] Dr. Yogi Naidu Chloride [Moles/Vol] 107 mmol/L Normal 98-107 [facility] Comment on above: Performed By: #### C MP, MG, PHOS, GGT #### [facility] [address] [place] [address] Dr. Yogi Naidu CO2 [Moles/Vol] 25.4 mmol/L Normal 21.0-32.0 [facility] Comment on above: Performed By: #### C MP, MG, PHOS, GGT #### [facility] [address] [place] [address] Dr. Yogi Naidu Creatinine [Mass/Vol] 1.35 mg/dL Critically high 0.70-1.30 [facility] Comment on above: Performed By: #### C MP, MG, PHOS, GGT #### [facility] [address] [place] [address] Dr. Yogi Naidu EGFR-AF [place] >60 Normal >=60 [facility] Comment on above: Performed By: #### C MP, MG, PHOS, GGT #### [facility] [address] [place] [address] Dr. Yogi Naidu EGFR-NON AF [place] 52 mL/min/1.73m2 Critically low >=60 [facility] Comment on above: Performed By: #### C MP, MG, PHOS, GGT #### [facility] [address] [place] [address] Dr. Yogi Naidu Globulin (S) [Mass/Vol] 2.3 g/dL Normal [facility] Comment on above: Performed By: #### C MP, MG, PHOS, GGT #### [facility] [address] [place] [address] Dr. Yogi Naidu Glucose [Mass/Vol] 93 mg/dL Normal 74-106 [facility] Comment on above: Performed By: #### C MP, MG, PHOS, GGT #### [facility] [address] [place] [address] Dr. Yogi Naidu Potassium [Moles/Vol] 4.1 mmol/L Normal 3.5-5.1 [facility] Comment on above: Performed By: #### C MP, MG, PHOS, GGT #### [facility] [address] [place] [address] Dr. Yogi Naidu Protein [Mass/Vol] 6.1 g/dL Critically low 6.4-8.2 [facility] Comment on above: Performed By: #### C MP, MG, PHOS, GGT #### [facility] [address] [place] [address] Dr. Yogi Naidu Sodium [Moles/Vol] 142 mmol/L Normal 136-145 [facility] Comment on above: Performed By: #### C MP, MG, PHOS, GGT #### [facility] [address] [address] [address] Yogi Naidu Urea nitrogen [Mass/Vol] 30.0 mg/dL Critically high 7.0-18 .0 [facility] Comment on above: Performed By: #### C MP, MG, PHOS, GGT #### [facility] [address] [address] [address] Yogi Naidu Urea nitrogen/Creatinine [Mass ratio] 22.2 mg/mg Normal [facility] Comment on above: Performed By: #### C MP, MG, PHOS, GGT #### [facility] [address] [place] [address] CHEST W IVCONon 0 CT CHEST W IVCON * * *Final Report* * * DATE OF EXAM: Apr 16 2020 12:22PM [facility] [id number] - CT CHEST W IVCON / PROCEDURE REASON: Hepatocellular carcinoma (HCC) * * * * Physician Interpretation * * * * EXAMINATION: CHEST CT WITH CONTRAST CLINICAL HISTORY: Technique: Spiral CT acquisition of the chest from the thoracic inlet to the upper abdomen following IV contrast. MQ: CTCW_6 Contrast: 150 mL Omnipaque [address] Dose-Length Product: 2215 mGy*cm CT Dose Reduction Employed: Automated exposure control (AEC) Comparison: 04/07/2019, 10/18/2012 RESULT: Limitations: None. 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 Lung parenchyma and airways: Few small (<6 mm) pulmonary nodules are noted. For example, there is a stable 5 mm nodule along the right minor fissure at image 101. Another stable 2 mm right upper lobe nodule is noted at image 51. There is a 4 to 5 mm nodular opacity at the left lung base, which may be related to atelectasis, image 182. Most of these nodules are unchanged since remote examination dated 10/18/2012. There is mild central and peripheral bronchial wall thickening. Pleural space: No pleural effusion. No pleural thickening. Lower neck, lymph nodes, and mediastinum: The thyroid gland is unremarkable. Few subcentimeter mediastinal, hilar mathematic lymph nodes are nonspecific. Nonspecific thickening of the distal esophagus may be secondary to underdistention or reflux disease. There are a few distal periesophageal varices. Heart, pericardium, and thoracic vessels: The aortic root is mildly prominent, although evaluation is limited on this non-ECG gated examination. There is mild ectasia of the ascending thoracic aorta, measuring 4.2 cm in the mid segment. Central pulmonary arteries are normal in caliber. Cardiac chambers are normal in size. Scattered coronary calcifications are noted. Trace pericardial fluid is noted. Bones and soft tissues: No destructive bone lesion. Degenerative changes are noted in the thoracic spine. Bilateral gynecomastia is noted, likely related to chronic liver disease. Upper abdomen: Images of the abdomen and pelvis are dictated separately. Manager Radiation (topogram) images: No additional findings. - IMPRESSION: Stable exam with no compelling evidence of intrathoracic metastatic disease. Small nonspecific (<6 mm) pulmonary nodules are unchanged, most of these nodules are unchanged since 2012 and are likely benign. Digital Product Specialist: RUSTAM Transcribe Date/Time: Apr 16 2020 12:52P Dictated by : ESDRAS SALAZAR MD This examination was interpreted and the report reviewed and electronically signed by: ESDRAS SALAZAR MD on Apr 16 2020 1:05PM EST [id number] 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 TECHNIQUE: Hepatic arterial, portal venous and early equilibrium phase imaging of the abdomen utilizing IV contrast only (OPTN protocol). Contrast: IV: 150 ml of Omnipaque 300 Oral contrast: None CT Radiation dose: Integrated Dose-length product (DLP) for this visit = 2215 mGy*cm. COMPARISON: CT liver/pelvis, 04/07/2019. RESULT: Hepatic morphology and masses: Orthotopic liver transplant. No recurrent cirrhosis. No liver mass. Hepatic vasculature and collaterals: ... Portal venous system - There is no thrombus in the portal venous system (splenic vein, main portal vein, left and right anterior and right posterior portal vein branches). Celiac trunk and SMA - No stenosis. Hepatic artery - The hepatic artery is patent. Hepatic veins - The hepatic veins are patent. Related extrahepatic findings (i.e. ascites, splenomegaly): Spleen - The spleen measures 10.5 cm in length, normal. There are no focal splenic masses. Ascites - There is no ascites. Biliary system: Stable mild left lobe intrahepatic biliary dilation. No right-sided intrahepatic ductal dilation. Pancreas: Stable 1.6 cm pancreatic body sidebranch IPMN (6:42). Stable 8 mm arterially hyperenhancing focus in the pancreatic head (4:51). No new pancreatic lesion. No ductal dilation. Kidneys: The kidneys are normal. Bilateral subcentimeter presumed benign cysts. Adrenal glands: The adrenal glands are normal. Other abdominal findings: No dilated bowel or bowel wall thickening. No lymphadenopathy. Pelvis: Enlarged prostate gland. Prior right inguinal hernia repair without recurrence. No aggressive appearing osseous lesions. IMPRESSION: Liver transplant without recurrent cirrhosis or hepatocellular carcinoma. Stable 1.6 cm pancreatic body sidebranch IPMN, and subcentimeter hypervascular lesion in the pancreatic head. Digital Product Specialist: [facility] Transcribe Date/Time: Apr 16 2020 12:37P Dictated by : HAIR GUTIÉRREZ MD This examination was interpreted and the report reviewed and electronically signed by: HAIR GUTIÉRREZ MD on Apr 16 2020 12:47PM EST [id number] [facility] NURSING PROGon 04-16-2020 NURSING PROG HNO ID: [id number] Author: Latisha Boles (Rn) TEENA Hernandez Service: Nursing Author Type: Registered Nurse Type: Nursing Progress Note Filed: 04/16/2020 12:10 PM Note Text: Radiology Service Progress Note DATE OF SERVICE: April 16, 2020 TIME: 12:00 PM PATIENT WEIGHT: 237LBS PATIENT IDENTITY VERIFICATION COMPLETED USING TWO (2) STANDARD IDENTIFIERS: Name and Date of confirmed by patient verbally and Name and Date of confirmed by identification band. FALL SCREENING: Has the patient had 2 falls in the last year or 1 fall with injury or currently using an Ambulatory Assistive Device (Walker, Cane, Wheelchair, Crutches, etc.)? No PATIENT GENDER DATA: Male ALLERGIES: Reviewed and unchanged CONTRAST ALLERGY: No EXAM: CT -CONTRAST INDUCED NEPHROPATHY RISK FACTORS: Patient age > 60 years and History of Kidney surgery, Kidney neoplasm, Liver disease, and/or any recent Nephrotoxic Chemotherapy or other Nephrotoxic medications CREATININE: Creatinine Date Value Ref Range Status 12/16/2019 1.30 Final 09/19/2019 1.28 Final 08/15/2019 1.31 Final eGFR-All Other Races Date Value Ref Range Status 09/19/2019 56 Final eGFR- Date Value Ref Range Status 07/21/2018 >60 Final P.O.C.T. RESULTS: POC done: Yes, See Lab Tab April 16, 2020 TREATMENT: No Hydration needed. IV SITE: Ambulatory: A peripheral IV was started in the Left antecubital site with a Angio cath: 20 gauge. diffusics IV SITE APPEARANCE: Clean,Dry and Intact SIGNATURE: LATISHA HERNANDEZ RN PATIENT NAME: Susan Sherman DATE: April 16, 2020 TIME: 12:00 PM [facility] PROGRESSon 04-16-2020 PROGRESS HNO ID: [id number] Author: Kasey Soto (Rt) Service: Radiology Author Type: Learning Strategist Type: Progress Notes Filed: 04/16/2020 12:13 PM Note Text: Radiology Service Progress Note PATIENT NAME: Susan Sherman DATE OF SERVICE: April 16, 2020 TIME: 12:05 PM PATIENT IDENTITY VERIFICATION COMPLETED USING TWO (2) IDENTIFIERS: Name and Date of confirmed by patient verbally. FALL SCREENING: Has the patient had 2 falls in the last year or 1 fall with injury or currently using an Ambulatory Assistive Device (Walker, Cane, Wheelchair, Crutches, etc.)? No PATIENT GENDER DATA: Male PATIENT RELEVANT IMPLANT DATA REVIEWED: Not Applicable RADIOLOGY DEPARTMENT: CT; Exam(s) Completed: Chest, Liver and Pelvis PERIPHERAL IV DATA: Site assessment: Clean,Dry and Intact, Site disposition Left in for next appointment SIGNED BY: RT Jonnie April 16, 2020 12:05 PM [facility] 04-10-2020 CNPN Telephone (AVXRPR) GEORGE,SUSAN Cox ([id number]) 1950 M TRN Date Time Provider Department 04/10/20 REBECA ACEVEDO (TEENA) AVXRPR During your visit today, we recorded the following information about you: Rebeca Acevedo RN, RN 04/10/2020 9:21 AM Signed Attempted to call patient to ask that he has creatinine blood work done. No answer at phone number listed on patient chart. Rebeca Acevedo RN Allergies As of Date: 04/10/2020 (No Known Allergies) Date Reviewed: 02/18/2017 Reviewed by: Riki Alvarez (Fel) - Fully Assessed Reason for Visit: Radiology CT [1480] Prescriptions as of 04/10/2020 Sig: TACROLIMUS 1 MG CAPSULE TAKE 2 CAPSULES BY MOUTH TWIC* SULFAMETHOXAZOLE 800 MG-TRIME* TAKE ONE TABLET BY MOUTH JULIO* AMLODIPINE 5 MG TABLET Take 1 tablet by mouth once d* METOPROLOL TARTRATE 25 MG TAB* Take 1 tablet by mouth twice * Problem List As Of Date 04/10/2020 Noted Resolved Bacteremia [R78.81] 01/06/2007 02/18/2017 Other streptococcus infection in conditions cla*01/06/2007 02/18/2017 More... Cirrhosis of liver without mention of alcohol [*10/18/2007 02/18/2017 More... UNILAT INGUINAL HERNIA [K40.90] 02/02/2008 SUMMARY [V999.95] 08/14/2012 More... Hepatic encephalopathy (HCC) [K72.90] 08/14/2012 02/18/2017 More... DVT prophylaxis [Z29.9] 08/14/2012 02/18/2017 More... Mechanically assisted ventilation [Z99.11] 08/14/2012 02/18/2017 More... Leucocytosis [D72.829] 08/18/2012 02/18/2017 More... Hyponatremia [E87.1] 08/18/2012 02/18/2017 More... Ascites [R18.8] 11/10/2012 02/18/2017 Pancreatic neoplasm [D49.0] 11/10/2012 Portal hypertension (HCC) [K76.6] 11/10/2012 02/18/2017 Hepatitis C [B19.20] 05/03/2013 02/18/2017 Hepatocellular carcinoma (HCC) [C22.0] 12/21/2014 02/18/2017 Liver transplanted (HCC) [Z94.4] 01/19/2015 More... Need for prophylactic immunotherapy [Z29.8] 02/07/2015 SB (acute kidney injury) (HCC) [N17.9] 02/07/2015 02/18/2017 Bile leak [K83.9] 02/07/2015 More... Biliary stricture of transplanted liver (HCC) [*02/07/2015 History of hepatitis C [Z86.19] 02/18/2017 History of hepatocellular carcinoma [Z85.05] 02/18/2017 History of colonic polyps [Z86.010] 02/18/2017 Encounter Status:Closed by REBECA ACEVEDO on 04/10/20 [facility] Vital Signs Date Time Vital Sign Value Performing Clinician Facility 05-27-2023 09:51-0500 Blood Pressure Location Sugey Lue [facility] 05-27-2023 09:51-0500 Diastolic blood pressure 83 mm[Hg] Sugey Lue [facility] 05-27-2023 09:51-0500 Heart rate 92 /min Sugey Lue [facility] 05-27-2023 09:51-0500 Respiratory rate 16 /min Sugey Lue [facility] 05-27-2023 09:51-0500 Systolic blood pressure 131 mm[Hg] Sugey Lue [facility] 04-10-2023 08:37-0400 Body height 182.9 cm Shea Brannon MD Work Phone: [facility] 04-10-2023 08:37-0400 Body mass index (BMI) [Ratio] 25.09 kg/m2 Shea Brannon MD Work Phone: [facility] 04-10-2023 08:37-0400 Body weight 83.92 kg Shea Brannon MD Work Phone: [facility] 04-10-2023 08:37-0400 Diastolic blood pressure 58 mm[Hg] Shea Brannon MD Work Phone: [facility] 04-10-2023 08:37-0400 Heart rate 62 /min Shea Brannon MD Work Phone: [facility] 04-10-2023 08:37-0400 Systolic blood pressure 106 mm[Hg] Shea Brannon MD Work Phone: [facility] 02-25-2023 09:09-0400 Blood Pressure Location Sugey Lue [facility] 02-25-2023 09:09-0400 Diastolic blood pressure 68 mm[Hg] Sugey Lue [facility] 02-25-2023 09:09-0400 Heart rate 68 /min Sugey Lue [facility] 02-25-2023 09:09-0400 Respiratory rate 16 /min Sugey Lue [facility] 02-25-2023 09:09-0400 Systolic blood pressure 130 mm[Hg] Sugey Lue [facility] 01-01-2023 13:30-0400 Body height 182.88 cm Imad Asaad Other [facility] [employer] Other 01-01-2023 13:30-0400 Body mass index (BMI) [Ratio] 24.41 kg/m2 Imad Asaad Other [facility] Other 01-01-2023 13:30-0400 Body weight 81.65 kg Imad Asaad Other [facility] Other 01-01-2023 13:30-0400 Diastolic blood pressure 76 mm[Hg] Imad Asaad Other [facility] Other 01-01-2023 13:30-0400 Systolic blood pressure 146 mm[Hg] Imad Asaad Other [facility] Other 12-11-2022 13:53-0400 Diastolic blood pressure 78 mm[Hg] DO Elvira Bunting Work Phone: [facility] 12-11-2022 13:53-0400 Heart rate 74 /min DO Elvira Bunting Work Phone: [facility] 12-11-2022 13:53-0400 Respiratory rate 16 /min DO Elvira Bunting Work Phone: [facility] 12-11-2022 13:53-0400 SaO2% (BldA) [Mass fraction] 98 % DO Elvira Bunting Work Phone: [facility] 12-11-2022 13:53-0400 Systolic blood pressure 125 mm[Hg] DO Elvira Bunting Work Phone: [facility] 12-11-2022 11:28-0400 Body height 182.88 cm DO Elvira Bunting Work Phone: [facility] 12-11-2022 11:28-0400 Body weight 78.92 kg DO Elvira Bunting Work Phone: [facility] 11-11-2022 07:42-0400 Body height 185.42 cm DO Elvira Bunting Work Phone: [facility] 11-11-2022 07:42-0400 Body weight 104.32 kg DO Elvira Bunting Work Phone: [facility] 10-08-2022 08:08-0400 Blood Pressure Location Sugey Lue [facility] 10-08-2022 08:08-0400 Diastolic blood pressure 96 mm[Hg] Sugey Lue [facility] 10-08-2022 08:08-0400 Heart rate 98 /min Sugey Lue [facility] 10-08-2022 08:08-0400 Systolic blood pressure 137 mm[Hg] Sugey Lue [facility] 09-10-2022 09:34-0400 Blood Pressure Location Sugey Lue [facility] 09-10-2022 09:34-0400 Diastolic blood pressure 89 mm[Hg] Sugey Lue [facility] 09-10-2022 09:34-0400 Heart rate 86 /min Sugey Lue [facility] 09-10-2022 09:34-0400 Respiratory rate 16 /min Sugey Lue [facility] 09-10-2022 09:34-0400 Systolic blood pressure 140 mm[Hg] Sugey Arteaga [facility] 03-27-2022 15:30-0400 Body height 182.88 cm Elvira R Bunting Work Phone: [facility] DO Work Phone: 03-27-2022 15:30-0400 Body mass index (BMI) [Ratio] 26.72 kg/m2 Elvira R Bunting Work Phone: [facility] DO Work Phone: 03-27-2022 15:30-0400 Body surface area Derived from formula 2.12 m2 Elvira R Bunting Work Phone: [facility] DO Work Phone: 03-27-2022 15:30-0400 Body weight 89.36 kg Elvira R Bunting Work Phone: [facility] DO Work Phone: 03-27-2022 15:30-0400 Diastolic blood pressure 80 mm[Hg] Elvira R Bunting Work Phone: [facility] DO Work Phone: 03-27-2022 15:30-0400 Heart rate 68 /min Elvira R Bunting Work Phone: [facility] DO Work Phone: 03-27-2022 15:30-0400 Systolic blood pressure 126 mm[Hg] Elvira R Bunting Work Phone: [facility] DO Work Phone: 12-24-2021 08:22-0400 Blood Pressure Location Mike Alves Jr. [facility] 12-24-2021 08:22-0400 Diastolic blood pressure 79 mm[Hg] Mike Alves Jr. [facility] 12-24-2021 08:22-0400 Heart rate 100 /min Mike Alves Jr. [facility] 12-24-2021 08:22-0400 Respiratory rate 16 /min Miek Alves Jr. [facility] 12-24-2021 08:22-0400 Systolic blood pressure 107 mm[Hg] Mike Alves Jr. [facility] Encounters Encounter Date Encounter Type Care Provider Facility Start: 02-17-2024 ambulatory Sugey M. Lue Facility:[facility] Start: 05-27-2023 End: 05-28-2023 ambulatory Sugey M. Lue Facility:[facility] Start: 05-27-2023 End: 05-27-2023 Patient encounter procedure Sugey M. Lue [facility] Start: 05-04-2023 End: 05-04-2023 ambulatory Elvira Bunting Facility:[facility] Start: 05-04-2023 End: 05-04-2023 ambulatory DO Elvira Bunting Work Phone: [facility] Work Phone: Start: 05-04-2023 End: 05-04-2023 Patient encounter procedure DO Elvira Bunting Work Phone: [facility] Start: 04-10-2023 End: 04-10-2023 ambulatory [facility] Start: 04-10-2023 End: 04-10-2023 Office outpatient visit 15 minutes Shea Brannon MD Work Phone: [facility] Comment on above: Sick sinus syndrome (CMS/HCC) (Primary Dx); Essential hypertension; Mixed hyperlipidemia; Overweight with body mass index (BMI) of 26 to 26.9 in adult; Liver transplanted (CMS/HCC); Pacemaker Start: 02-25-2023 End: 02-26-2023 ambulatory [facility]y Arte[facility] Start: 02-25-2023 End: 02-25-2023 Patient encounter procedure Sugey Arteaga [facility] Start: 02-23-2023 Telephone encounter [facility]ulisa [facility] Comment on above: Patient Update; Dewey rs (New standing lab order ) Start: 01-15-2023 End: 01-15-2023 ambulatory Elvira Bunting Facility:[facility] Start: 01-15-2023 End: 01-15-2023 ambulatory DO Elvira Bunting Work Phone: [facility] Work Phone: Start: 01-15-2023 End: 01-15-2023 Patient encounter procedure DO Elvira Bunting Work Phone: [facility] Work Phone: Start: 01-01-2023 End: 01-01-2023 ambulatory Imad Asaad Other [employer] Other Start: 01-01-2023 Patient encounter procedure Imad Asaad [facility] Start: 12-11-2022 End: 12-11-2022 ambulatory Elvira Bunting Facility:[facility] Start: 12-11-2022 End: 12-11-2022 Admission to same day surgery center DO Elvira Bunting Work Phone: [facility] Work Phone: Start: 12-08-2022 End: 12-08-2022 ambulatory Imad Asaad Other [employer] Other Start: 12-08-2022 Telephone encounter Imad Asaad [facility] Start: 11-28-2022 End: 11-28-2022 ambulatory Imad Asaad Other [employer] Other Start: 11-28-2022 Telephone encounter Imad Asaad [facility] Start: 11-12-2022 End: 11-12-2022 ambulatory Imad Asaad Other [employer] Other Start: 11-12-2022 Telephone encounter Imad Asaad [facility] Start: 11-11-[address] Elvira Schultz Facility:[id number] Start: 11-11-2022 End: 11-11-2022 ambulatory Sugey Arteaga Facility:[facility] Start: 11-11-2022 End: 11-11-2022 ambulatory DO Elvira Bunting Work Phone: [facility] Work Phone: Start: 11-11-2022 End: 11-11-2022 Patient encounter procedure DO Elvira Bunting Work Phone: [facility] [place] Work Phone: Start: 11-06-2022 End: 11-06-2022 ambulatory Imad Asaad Facility:[facility] Start: 11-06-2022 End: 11-06-2022 Patient encounter procedure DO Elvira Bunmaggie Work Phone: [facility] [place] Work Phone: Start: 10-31-2022 End: 10-31-2022 Patient encounter procedure DO Elvira Bunting Work Phone: [facility] Start: 10-31-2022 End: 10-31-[address] Elvira Schultz Facility:[id number] Start: 10-20-2022 End: 10-21-[address] ELVIRA SCHULTZ Facility:[facility] Start: 10-09-2022 End: 10-09-[address] Elvira Schultz Facility:[id number] Start: 10-09-2022 End: 10-09-2022 ambulatory DO Elvira Schultz Work Phone: [facility] Work Phone: Start: 10-09-2022 End: 10-09-2022 Patient encounter procedure DO Elvira Schultz Work Phone: [facility] Start: 10-08-2022 End: 10-09-2022 ambulatory Sugey Arteaga Facility:[facility] Start: 10-08-2022 End: 10-08-2022 Patient encounter procedure Sugey Arteaga [facility] Start: 09-26-2022 End: 09-26-[address] ELVIRA SCHULTZ Facility:[facility] Start: 09-22-2022 End: 09-23-2022 ambulatory Sugey Arteaga [facility] Start: 09-22-2022 End: 09-22-2022 Patient encounter procedure Sugey Arteaga [facility] Start: 09-17-2022 End: 09-18-2022 ambulatory Kevin DE LA GARZA Facility:[facility] Start: 09-10-2022 End: 09-11-2022 ambulatory Sugey Arteaga Facility:[facility] Start: 09-10-2022 End: 09-10-2022 Patient encounter procedure Sugey Arteaga [facility] Start: 09-03-2022 Kingston parker APRN.COMPUTER GAME TESTER Work Phone: [facility] Comment on above: Refill Request Start: 08-19-2022 End: 08-20-[address] ELVIRA SCHULTZ Facility:[facility] Start: 07-22-2022 End: 07-23-[address] ELVIRA SCHULTZ Facility:[facility] Start: 06-16-2022 End: 06-17-[address] ELVIRA SCHULTZ Facility:[facility] Start: 05-19-2022 End: 05-20-[address] ELVIRA SCHULTZ Facility:[facility] Start: 05-14-2022 Rx Renewal Elvira Pizano ng Work Phone: [facility] DO Work Phone: Start: 04-30-[address] Elvira Schultz Facility:[id number] Start: 04-30-2022 End: 04-30-2022 ambulatory DO Elvira Schlutz Work Phone: [facility] Work Phone: Start: 04-30-2022 End: 04-30-2022 Patient encounter procedure DO Elvira Schultz Work Phone: [facility] Start: 04-21-2022 End: 04-22-2022 ambulatory DOCTOR MISC Facility:[facility] Start: 03-27-2022 Office outpatient vi sit 15 minutes Elvira Schultz Work Phone: [facility] DO Work Phone: Start: 03-27-[address] Shea Brannon Facility: Start: 03-17-2022 End: 03-18-2022 ambulatory DOCTOR MISC Facility:[facility] Start: 02-26-2022 End: 02-26-2022 Patient encounter procedure VINICIUS RUSSELL [facility] Start: 02-18-2022 End: 02-19-[address] ELVIRA SCHULTZ Facility:[facility] Start: 01-22-2022 Encounter for preprocedural laboratory examination DR MIKE June [facility] Start: 01-22-2022 End: 01-22-[address] ELVIRA SCHULTZ Facility:[facility] Start: 01-21-2022 End: 01-22-[address] MIKE June Facility:[facility] Start: 01-21-2022 End: 01-22-2022 Encounter for preprocedural laboratory examination DR MIKE June Facility:[facility] Start: 01-14-2022 Encounter for preprocedural cardiovascular examination DR MIKE June [facility] Start: 01-13-2022 End: 01-14-2022 Encounter for preprocedural cardiovascular examination DR ELVIRA SCHULTZ Facility:[facility] Start: 01-13-2022 End: 01-14-[address] ELVIRA SCHULTZ Facility:[facility] Start: 01-07-2022 Rx Renewal Shea gill MD Work Phone: [facility] DO Work Phone: Start: 12-24-2021 End: 12-24-2021 Patient encounter procedure Mike Alves Jr. [facility] Start: 12-23-2021 Telephone encounter Shea umanzor MD Work Phone: [facility] DO Work Phone: Start: 12-21-2021 End: 12-22-[address] ELVIRA SCHULTZ Facility:[facility] Start: 12-17-2021 End: 12-18-[address] ELVIRA SCHULTZ Facility:[facility] Start: 11-21-2021 End: 11-22-[address] ELVIRA SCHULTZ Facility:[facility] Start: 11-08-2021 Refill Csear Borrego MD Work Phone: [facility] Comment on above: Refill Request Start: 10-17-2021 Telephone encounter Yulisa Lewis RN [facility] Comment on above: Opened In Error Start: 09-15-2021 Refill Nely parker APRN.COMPUTER GAME TESTER Work Phone: [facility] Comment on above: Refill Request Start: 05-13-2021 Rx Renewal Shea gill MD Work Phone: [facility] DO Work Phone: Start: 03-26-2017 Ambulatory SHEA BRANNON Faci lity:[id number] Procedures Date Procedure Procedure Detail Performing Clinician Start: 04-09-2023 H/O: liver recipient Liver transplanted Shea Brannon MD Work Phone: Start: 01-15-2023 Dual energy X-ray absorptiometry DO [employer] [facility] Work Phone: Start: 12-11-2022 Esophagogastroduodenoscopy DO Elvira Bun ting Work Phone: Start: 11-11-2022 MR prostate wo/w con DO Elvira Bunting Work Phone: Start: 11-06-2022 Ova and Parasite Result 1 DO Elvira Bunt ing Work Phone: Start: 11-06-2022 Ova OR parasites identification DO Darri n Bunting Work Phone: Start: 11-06-2022 Stool culture for bacteria DO Elvira Bun ting Work Phone: Start: 09-22-2022 Cystoscopy Sugey Arteaga Start: 08-19-2022 PSA screening DOCTOR MISC Comment on above: Performed By: #### BOX #### [facility] [address] [place] [address] Dr. Yogi Naidu Start: 01-22-2022 Transrectal biopsy of prostate using ultrasound guidance Sugey Arteaga Start: 12-21-2021 PSA screening DOCTOR MISC Comment on above: Performed By: #### MERLE MORALES #### [facility] [address] [place] [address] Dr. Yogi Naidu Start: 11-09-2019 Transrectal biopsy of prostate using ultrasound guidance Mike Alves Jr. Start: 05-19-2018 Transrectal biopsy of prostate using ultrasound guidance Mike Alves Jr. Start: 01-19-2015 H/O: liver recipient Liver transplanted Nely Ibarra APRN.COMPUTER GAME TESTER Work Phone: Start: 02-11-2012 Colonoscopy Nely Ibarra APRN.COMPUTER GAME TESTER Work Phone: Appendectomy Mike June Appendectomy Shea Brannon MD Work Phone: Biopsy of prostate Shea Brannon MD Work Phone: Comment on above: Aug 06; Cardiac pacemaker, d evice (physical object) Mike Alves Jr. Colonoscopy Mike June Colonoscopy Shea Brannon MD Work Phone: Comment on above: [id number]; H/O: liver recipient Liver repla alessandro by transplant (HCC) Nely Ibarra APRN.COMPUTER GAME TESTER Work Phone: H/O: liver recipient Transplante d liver (HCC) Cesar Borrego MD Work Phone: H/O: liver recipient Liver transplanted Simon Brannon MD Work Phone: H/O: liver recipient Liver trans plant recipient DO Elvira Schultz Work Phone: H/O: liver recipient Liver repla alessandro by transplant (HCC) Nely Ibarra APRN.COMPUTER GAME TESTER Work Phone: H/O: liver recipient Liver trans planted (CMS/HCC) Shea Brannon MD Work Phone: Hernia repair Shea Brannon MD Work Phone: Surgical procedure Shea Brannon MD Work Phone: Comment on above: vein removal from leg; Tonsillectomy Mikesharona Alves Elvi ch Transplantation of liver Elsy Brannon MD Work Phone: Transplantation of liver Deanne Arteaga Plan of Treatment Date Care Activity Detail Author Start: 02-19-2028 LIPID SCREEN LIPID SCREEN [facility] Start: 07-22-2027 LIPID SCREEN LIPID SCREEN [facility] Start: 10-15-2026 LIPID SCREEN LIPID SCREEN [facility] Start: 08-19-2026 LIPID SCREEN LIPID SCREEN [facility] Start: 02-18-2026 DIABETES SCREEN DIABETES SCREEN [facility] Start: 08-19-2025 DIABETES SCREEN DIABETES SCREEN [facility] Start: 10-15-2024 DIABETES SCREEN DIABETES SCREEN [facility] Start: 08-19-2024 DIABETES SCREEN DIABETES SCREEN [facility] Start: 04-15-2024 End: 04-15-2024 Patient encounter procedure 04/15/2024 8:30 AM EDT Office Visit [facility] [address] [phone] Shea Brannon MD 703 [facility] 2, Vishal [address] [place] [id number] [facility] Start: 04-10-2023 FUV, Provider: Shea Brannon, Status: Pen, Time: 8:30 AM FUV, Provider: Shea Brannon, Status: Luke, Time: 8:30 AM [facility] 250 DO Work Phone: Start: 02-13-2023 Influenza vaccination INFLUENZA (#1) [facility] Start: 12-11-2022 [facility] Start: 06-15-2022 ADVANCE DIRECTIVE DISCUSSION ADVANCE DIRECTIVE DISCUSSION [facility] Start: 06-15-2022 DEPRESSION ASSESSMENT DEPRESSION ASSESSMENT [facility] Start: 02-13-2022 Influenza vaccination [facility] Start: 01-13-2022 FUV, Provider: Shea Brannon, Status: Luke, Time: 8:20 AM FUV, Provider: Shea Brannon, Status: Pen, Time: 8:20 AM [facility] 600 DO Work Phone: Start: 12-06-2021 FUV, Provider: Shea Brannon, Status: Pen, Time: 8:30 AM FUV, Provider: Shea Brannon, Status: Pen, Time: 8:30 AM [facility] 250 DO Work Phone: Start: 06-15-2021 ADVANCE DIRECTIVE DISCUSSION ADVANCE DIRECTIVE DISCUSSION [facility] Start: 04-27-2021 Pneumococcal Vaccine: 65+ Years (3 - PPSV23 or PCV20) Pneumococcal Vaccine: 65+ Years (3 - PPSV23 or PCV20) [facility] Start: 06-22-2020 Zoster Vaccines (2 of 2) Zoster Vaccines (2 of 2) [facility] Start: 10-26-2017 PNEUMOVAX AGE 65 AND OVER WITH 5YR LOOKBACK (#1) PNEUMOVAX AGE 65 AND OVER WITH 5YR LOOKBACK (#1) [facility] Start: 2017 Abdominal aortic aneurysm screening Abdominal Aortic Aneurysm (AAA) Screening [facility] Start: 2017 ADULT PREVNAR ADULT PREVNAR [facility] Start: 2017 ADULT PREVNAR-13 ADULT PREVNAR-13 [facility] Start: 10-26-2013 PNEUMOCOCCAL: 65+ (2 - PCV) PNEUMOCOCCAL: 65+ (2 - PCV) [facility] Start: 02-10-2013 Colonoscopy COLONOSCOPY [facility] Start: 02-10-2013 COLORECTAL CANCER SCREENING COLORECTAL CANCER SCREENING [facility] Start: 11-23-2012 HEPATITIS A (2 of 3 - Hep A Twinrix risk 3-dose series) HEPATITIS A (2 of 3 - Hep A Twinrix risk 3-dose series) [facility] Start: 11-23-2012 Hepatitis A Vaccines (2 of 3 - Hep A Twinrix risk 3-dose series) Hepatitis A Vaccines (2 of 3 - Hep A Twinrix risk 3-dose series) [facility] Start: 11-23-2012 HEPATITIS B (2 of 3 - Hep B Twinrix risk 3-dose series) HEPATITIS B (2 of 3 - Hep B Twinrix risk 3-dose series) [facility] Start: 11-23-2012 Hepatitis B Vaccines (2 of 3 - Hep B Twinrix risk 3-dose series) Hepatitis B Vaccines (2 of 3 - Hep B Twinrix risk 3-dose series) [facility] Start: 2002 SHINGRIX VACCINE (1 of 2) SHINGRIX VACCINE (1 of 2) [facility] Start: 1997 COLOGUARD (FIT-DNA) COLOGUARD (FIT-DNA) [facility] Start: [address] COLONOGRAPHY [facility] Start: 1997 FECAL OCCULT BLOOD FECAL OCCULT BLOOD [facility] Start: 1997 SIGMOIDOSCOPY SIGMOIDOSCOPY [facility] Start: 1974 DTaP/Tdap/Td Vaccines (1 - Tdap) DTaP/Tdap/Td Vaccines (1 - Tdap) [facility] Start: 1971 SHINGRIX VACCINE (1 of 2) SHINGRIX VACCINE (1 of 2) [facility] Start: 1971 Urine microalbumin profile DTAP,TDAP,TD (1 - Tdap) [facility] Start: 1964 Adult depression screening assessment DEPRESSION SCREENING [facility] Start: 1964 COVID-19 VACCINE (1) COVID-19 VACCINE (1) [facility] Start: 1957 COVID-19 VACCINE (#1) COVID-19 VACCINE (#1) [facility] Start: 1952 COVID-19 VACCINE (#1) COVID-19 VACCINE (#1) [facility] Start: 1952 ABDOMINAL AORTIC ANEURYSM SCREENING ABDOMINAL AORTIC ANEURYSM SCREENING [facility] Start: 1952 Lipid panel Lipid Panel [facility] Start: 1952 Medicare Annual Wellness Visit Medicare Annual Wellness Visit (AWV) [facility] Start: 1952 Screening for malignant neoplasm of colon [facility] Calprotectin [Mass/m ass] in Stool [facility] Ova and parasites identified in Unspecified specimen by Light microscopy [facility] Patient Education Gastritis Esop hageal Dilation Colon Polypectomy (DC) [facility] Work Phone: Potassium [Moles/mas s] in Stool [facility] Immunizations Immunization Date Immunization Notes Care Provider Laisha wilder 01-27-2023 Flu vaccine, quadrivalent, high-dose, preservative free, age 65y+ (FLUZONE) Shea Brannon MD Work Phone: [facility] Work Phone: 01-27-2023 influenza virus vaccine, unspecified formulation Sugey Lue [facility] 05-30-2022 Flu vaccine, quadrivalent, high-dose, preservative free, age 65y+ (FLUZONE) Shea Brannon MD Work Phone: [facility] Work Phone: 05-30-2022 influenza virus vaccine, unspecified formulation Sugey Lue [facility] 04-20-2021 Fluad Quadrivalent 0 .5 ML Intramuscular Prefilled Syringe Elvira R Bunting Work Phone: [facility] [employer] 250 DO Work Phone: 04-20-2021 influenza virus vaccine, unspecified formulation Sugey Lue [facility] 04-27-2020 Fluad Quadrivalent 0 .5 ML Intramuscular Prefilled Syringe Elvira R Bunting Work Phone: [facility] [employer] 250 DO Work Phone: 04-27-2020 influenza virus vaccine, unspecified formulation Sugey Lue [facility] 04-27-2020 pneumococcal conjuga te vaccine, 13 valent Elvira R Bunting Work Phone: [facility] 04-27-2020 zoster vaccine recombinant Elvira R Bunting Work Phone: [facility] 03-15-2020 influenza virus vaccine, unspecified formulation Shea Brannon MD Work Phone: [facility] 03-15-2020 influenza, seasonal, injectable Shea Brannon MD Work Phone: [facility] Work Phone: 02-16-2019 influenza virus vaccine, unspecified formulation Sugey Lue [facility] 02-16-2019 influenza, high dose seasonal, preservative-free Elvira R Bunting Work Phone: [facility] 250 DO Work Phone: 06-15-2018 influenza virus vaccine, unspecified formulation Shea Brannon MD Work Phone: [facility] 06-15-2018 influenza, seasonal, injectable Shea Brannon MD Work Phone: [facility] Work Phone: 04-15-2018 influenza virus vaccine, unspecified formulation Shea Brannon MD Work Phone: [facility] 600 DO Work Phone: 02-22-2018 influenza virus vaccine, unspecified formulation Sugey Lue [facility] 02-22-2018 influenza, high dose seasonal, preservative-free Elvira R Bunting Work Phone: [facility] 250 DO Work Phone: 02-16-2017 influenza virus vaccine, unspecified formulation Shea Brannon MD Work Phone: [facility] 600 DO Work Phone: 02-11-2017 influenza virus vaccine, unspecified formulation Sugey Luvesta [facility] 02-11-2017 influenza, injectabl e, quadrivalent, preservative free Shea Brannon MD Work Phone: [facility] Work Phone: 04-23-2016 influenza virus vaccine, unspecified formulation Sugey Lue [facility] 04-23-2016 influenza, injectabl e, quadrivalent, preservative free Elvira R Bunting Work Phone: [facility] 250 DO Work Phone: 04-12-2015 influenza virus vaccine, unspecified formulation Sugey Lue [facility] 04-12-2015 influenza, injectabl e, quadrivalent, preservative free Elvira R Bunting Work Phone: [facility] 250 DO Work Phone: 10-26-2012 hepatitis A and hepatitis B vaccine Nely Ibarra GARDE MANGER.COMPUTER GAME TESTER Work Phone: [facility] 10-26-2012 pneumococcal polysaccharide vaccine, 23 valent Nely Ibarra GARDE MANGER.COMPUTER GAME TESTER Work Phone: [facility] 10-26-2012 hepatitis B vaccine, unspecified formulation Nely Ibarra GARDE MANGER.COMPUTER GAME TESTER Work Phone: [facility] Payers Date Payer Category Payer Self-pay [id number] 2021 Medicare ANTHEM MEDICARE ANTHEM MEDICARE ADVANTAGE [id number] 2021-Present [id number] [place] [address] [id number] 2021 Unknown ANTHEM BLUE CROS S AND BLUE SHIELD ANTHEM MEDIBLUE ACCESS [id number] 2021-Present [phone] [address] [place] [address] PPO [id number] 2019 Unknown 1959 Medicare [id number] 1952 Unknown [id number] 2.16.840.1.678020.3.579.2.593 1952 Unknown [id number] 2.16.840.1.321290.3.579.2.593 1952 Unknown [id number] 2.16.840.1.845328.3.579.2.593 1952 Unknown [id number] 2.16.840.1.920399.3.579.2.593 1952 Unknown [id number] 2.16.840.1.684109.3.579.2.593 1952 Unknown [id number] 2.16.840.1.281047.3.579.2.593 1952 Unknown [id number] 2.16.840.1.517112.3.579.2.593 1952 Unknown [id number] 2.16.840.1.647956.3.579.2.593 1952 Unknown [id number] 2.16.840.1.711538.3.579.2.593 1952 Unknown [id number] 2.16.840.1.926795.3.579.2.593 1952 Unknown [id number] 2.16.840.1.594207.3.579.2.593 1952 Unknown [id number] 2.16.840.1.124745.3.579.2.593 1952 Unknown [id number] 2.16.840.1.094484.3.579.2.593 1952 Unknown [id number] 2.16.840.1.294651.3.579.2.593 1952 Unknown [id number] 2.16.840.1.099475.3.579.2.593 1952 Unknown [id number] 2.16.840.1.383513.3.579.2.593 1952 Unknown [id number] 2.16.840.1.563104.3.579.2.593 1952 Unknown [id number] 2.16.840.1.549893.3.579.2.356 1952 Unknown [id number] 2.16.840.1.261200.3.579.2.356 1952 Unknown [id number] 2.16.840.1.437988.3.579.2.356 1952 Unknown [id number] 2.16.840.1.476408.3.579.2.356 1952 Unknown [id number] 2.16.840.1.419638.3.579.2.356 1952 Unknown [id number] 2.16.840.1.482113.3.579.2.124 4 1952 Unknown [id number] 2.16.840.1.697291.3.579.2.727 1952 Unknown [id number] 2.16.840.1.893212.3.579.2.727 1952 Unknown [id number] 2.16.840.1.564332.3.579.2.727 1952 Unknown [id number] 2.16.840.1.179297.3.579.2.727 1952 Unknown [id number] 2.16.840.1.829609.3.579.2.727 1952 Unknown [id number] 2.16.840.1.250727.3.579.2.727 Medicare Medicare [id number] Unknown [id number] Unknown HCAP/HFA/FAP Active [id number] Unknown [id number] 2.16.840.1.043640.3.579.2.531 Unknown [id number] 2.16.840.1.332241.3.579.2.531 Unknown [id number] 2.16.840.1.365538.3.579.2.531 Unknown [id number] 2.16.840.1.359948.3.579.2.531 Unknown [id number] 2.16.840.1.710021.3.579.2.531 Unknown [id number] 2.16.840.1.111820.3.579.2.531 Unknown [id number] 2.16.840.1.489782.3.579.2.531 Social History Date Type Detail Facility Start: 12-24-2021 End: 05-27-2023 Tobacco smoking status UTIS Ex-smoker [facility] Start: 02-18-2017 Alcohol intake Current non-dr manager state of alcohol (finding) [facility] Start: 1950 Sex Assigned At Not on file C [facility] Tobacco smoking status Never [facility] Start: 12-11-2017 End: 04-10-2023 Sex Assigned At Male [facility] Start: 12-11-2017 End: 04-10-2023 Caffeine use Caffeine use -[facility] 600 DO Work Phone: Comment on above: 1.5 cups of coffee a nd a quart of Iced Tea daily; quit around ; 1.5 cups of coffee; Start: 1950 Sex Assigned At Male F [facility] End: 06-15-1982 History of tobacco use Current smoker [facility] Start: 11-29-2012 End: 04-10-2023 Tobacco use and exposure Smokeless tobacco non-user [facility] End: 06-15-1982 History of tobacco use Cigarette Smoker [facility] Work Phone: Start: 04-10-2023 Alcohol intake Lifetime non-d nella (finding) [facility] Work Phone: Start: 03-31-2023 End: 04-10-2023 Exposure to SARS-CoV-2 (event) Not sure [facility] Medical Equipment Procedure Code Equipment Code Equipment Origin al Text Equipment Identifier Dates Insertion, pacemaker LEAD ISOFLEX OPTIMUS FDA Start: 04-14-2018 Insertion, pacemaker LEAD PACEMAKER TENDRIL STS FDA Start: 04-14-2018 Insertion, pacemaker PACEMAKER ASSURITY MRI RF FDA Start: 04-14-2018 Insertion, pacemaker LEAD ISOFLEX OPTIMUS FDA Start: 04-14-2018 Insertion, pacemaker LEAD PACEMAKER TENDRIL STS FDA Start: 04-14-2018 Insertion, pacemaker PACEMAKER ASSURITY MRI RF FDA Start: 04-14-2018 Insertion, pacemaker LEAD ISOFLEX OPTIMUS FDA Start: 04-14-2018 Insertion, pacemaker LEAD PACEMAKER TENDRIL STS FDA Start: 04-14-2018 Insertion, pacemaker PACEMAKER ASSURITY MRI RF FDA Start: 04-14-2018 Insertion, pacemaker LEAD ISOFLEX OPTIMUS FDA Start: 04-14-2018 Insertion, pacemaker LEAD PACEMAKER TENDRIL STS FDA Start: 04-14-2018 Insertion, pacemaker PACEMAKER ASSURITY MRI RF FDA Start: 04-14-2018 Insertion, pacemaker LEAD ISOFLEX OPTIMUS FDA Start: 04-14-2018 Insertion, pacemaker LEAD PACEMAKER TENDRIL STS FDA Start: 04-14-2018 Insertion, pacemaker PACEMAKER ASSURITY MRI RF FDA Start: 04-14-2018 Goals Date Patient Goal Desired Activity /State Functional Status Date Assessment Result Facility 05-27-2023 Functional Status N/A [facility] 02-25-2023 Functional Status N/A [facility] 10-08-2022 Functional Status N/A [facility] 09-15-2022 Functional Status N/A [facility] 09-10-2022 Functional Status N/A [facility] 02-26-2022 Functional Status N/A [facility] 12-24-2021 Functional Status N/A [facility] Clinical Notes 02-07-2015 to 05-27-2023 Shea Brannon MD - 04/10/2023 8:30 AM EDTPatient InstructionsTelephone Encounter - Yulisa Lewis RN - 02/23/2023 2:52 PM EDT Note Date & Type Note Facility 05-27-2023 Hospital Discharge instructions Patient Education 05/27/2023 10:35:26 Benign Prostatic Hyperplasia Benign Prostatic Hyperplasia Benign prostatic hyperplasia (BPH) is an enlarged prostate gland that is caused by the normal aging process. The prostate may get bigger as a man gets older. The condition is not caused by cancer. The prostate is a walnut-sized gland that is involved in the production of semen. It is located in front of the rectum and below the bladder. The bladder stores urine. The urethra carries stored urine out of the body. An enlarged prostate can press on the urethra. This can make it harder to pass urine. The buildup of urine in the bladder can cause infection. Back pressure and infection may progress to bladder damage and kidney (renal) failure. What are the causes? This condition is part of the normal aging process. However, not all men develop problems from this condition. If the prostate enlarges away from the urethra, urine flow will not be blocked. If it enlarges toward the urethra and compresses it, there will be problems passing urine. What increases the risk? This condition is more likely to develop in men older than 50 years. What are the signs or symptoms? Symptoms of this condition include: Getting up often during the night to urinate. Needing to urinate frequently during the day. Difficulty starting urine flow. Decrease in size and strength of your urine stream. Leaking (dribbling) after urinating. Inability to pass urine. This needs immediate treatment. Inability to completely empty your bladder. Pain when you pass urine. This is more common if there is also an infection. Urinary tract infection (UTI). How is this diagnosed? This condition is diagnosed based on your medical history, a physical exam, and your symptoms. Tests will also be done, such as: A post-void bladder scan. This measures any amount of urine that may remain in your bladder after you finish urinating. A digital rectal exam. In a rectal exam, your health care provider checks your prostate by putting a lubricated, gloved finger into your rectum to feel the back of your prostate gland. This exam detects the size of your gland and any abnormal lumps or growths. An exam of your urine (urinalysis). A prostate specific antigen (PSA) screening. This is a blood test used to screen for prostate cancer. An ultrasound. This test uses sound waves to electronically produce a picture of your prostate gland. Your health care provider may refer you to a specialist in kidney and prostate diseases (urologist). How is this treated? Once symptoms begin, your health care provider will monitor your condition (active surveillance or watchful waiting). Treatment for this condition will depend on the severity of your condition. Treatment may include: Observation and yearly exams. This may be the only treatment needed if your condition and symptoms are mild. Medicines to relieve your symptoms, including: ?Medicines to shrink the prostate. ?Medicines to relax the muscle of the prostate. Surgery in severe cases. Surgery may include: ?Prostatectomy. In this procedure, the prostate tissue is removed completely through an open incision or with a laparoscope or robotics. ?Transurethral resection of the prostate (TURP). In this procedure, a tool is inserted through the opening at the tip of the penis (urethra). It is used to cut away tissue of the inner core of the prostate. The pieces are removed through the same opening of the penis. This removes the blockage. ?Transurethral incision (TUIP). In this procedure, small cuts are made in the prostate. This lessens the prostate's pressure on the urethra. ?Transurethral microwave thermotherapy (TUMT). This procedure uses microwaves to create heat. The heat destroys and removes a small amount of prostate tissue. ?Transurethral needle ablation (TUNA). This procedure uses radio frequencies to destroy and remove a small amount of prostate tissue. ?Interstitial laser coagulation (ILC). This procedure uses a laser to destroy and remove a small amount of prostate tissue. ?Transurethral electrovaporization (TUVP). This procedure uses electrodes to destroy and remove a small amount of prostate tissue. ?Prostatic urethral lift. This procedure inserts an implant to push the lobes of the prostate away from the urethra. Follow these instructions at home: Take [id number] and prescription medicines only as told by your health care provider. Monitor your symptoms for any changes. Contact your health care provider with any changes. Avoid drinking large amounts of liquid before going to bed or out in public. Avoid or reduce how much caffeine or alcohol you drink. Give yourself time when you urinate. Keep all follow-up visits. This is important. Contact a health care provider if: You have unexplained back pain. Your symptoms do not get better with treatment. You develop side effects from the medicine you are taking. Your urine becomes very dark or has a bad smell. Your lower abdomen becomes distended and you have trouble passing urine. Get help right away if: You have a fever or chills. You suddenly cannot urinate. You feel light-headed or very dizzy, or you faint. There are large amounts of blood or clots in your urine. Your urinary problems become hard to manage. You develop moderate to severe low back or flank pain. The flank is the side of your body between the ribs and the hip. These symptoms may be an emergency. Get help right away. Call 911. Do not wait to see if the symptoms will go away. Do not drive yourself to the hospital. Summary Benign prostatic hyperplasia (BPH) is an enlarged prostate that is caused by the normal aging process. It is not caused by cancer. An enlarged prostate can press on the urethra. This can make it hard to pass urine. This condition is more likely to develop in men older than 50 years. Get help right away if you suddenly cannot urinate. This information is not intended to replace advice given to you by your health care provider. Make sure you discuss any questions you have with your health care provider. Document Revised: 12/18/2021 Document Reviewed: 12/18/2021 [employer] Patient Education 2022 [employer]. Follow Up Care 02/25/2023 09:53:13 With:Chandler CHAVEZ, Sugey Cummins URL, URO Address: When:Within 9 Month(s) Comments:w/PSA F&T [facility] 04-10-2023 History of Present illness Narrative Subjective Suasn Sherman is a 73 y.o. male Chief Complaint Follow-up HPI Patient is here for follow-up continue management for sick sinus syndrome with prior permanent pacemaker implantation, hypertension, hyperlipidemia and history of liver transplant. Since last time I saw him he reports he is feeling well. He denies any complaint of chest pain, palpitation, lightheadedness, dizziness or syncope. His recent laboratory data were noted and reviewed with him. Assessment 1. Sick sinus syndrome status post prior permanent pacemaker implantation. Stable. Recent device check satisfactory. 2. Hypertension controlled 3. Mild hyperlipidemia controlled 4. Status post liver transplant good liver function test 5. Obesity 6. Very low burden atrial fibrillation noted previously on device check. None on his last few device check Plan 1. The patient will remain the current treatment 2. Patient recent device check was reviewed with him 3. The patient will continue his pacemaker monitoring 4. The patient was counseled regarding llosing Weight, Exercise and Dietary Modification 5. Follow-up in 1 year 6. I reviewed his recent lab with him Review of Systems All other systems reviewed and are negative. Visit Vitals BP 106/58 (BP Location: Left arm, Patient Position: Sitting) Pulse 62 Ht 1.829 m (6') Wt 83.9 kg (185 lb) BMI 25.09 kg/m Smoking Status Former BSA 2.06 m Objective Physical Exam Constitutional: Appearance: Normal appearance. He is normal weight. HENT: Nose: Nose normal. Neck: Vascular: No carotid bruit. Cardiovascular: Rate and Rhythm: Normal rate. Pulses: Normal pulses. Heart sounds: Normal heart sounds. Pulmonary: Effort: Pulmonary effort is normal. Abdominal: General: Bowel sounds are normal. Palpations: Abdomen is soft. Genitourinary: Rectum: Normal. Musculoskeletal: General: Normal range of motion. Cervical back: Normal range of motion. Right lower leg: No edema. Left lower leg: No edema. Skin: General: Skin is warm and dry. Neurological: General: No focal deficit present. Mental Status: He is alert. Psychiatric: Mood and Affect: Mood normal. Behavior: Behavior normal. Thought Content: Thought content normal. Judgment: Judgment normal. Current Medications Current Outpatient Medications: amLODIPine (Norvasc) 5 mg tablet, Take 1 tablet (5 mg) by mouth once daily., Disp: , Rfl: ascorbic acid (Vitamin C) 1,000 mg tablet, Take 1 tablet (1,000 mg) by mouth once daily., Disp: , Rfl: aspirin 81 mg EC tablet, Take 1 tablet (81 mg) by mouth once daily., Disp: , Rfl: cholecalciferol (Vitamin D-3) 125 MCG (5000 UT) capsule, Take 1 capsule (5,000 Units) by mouth once daily., Disp: , Rfl: elderberry fruit and flower 460-115 mg capsule, Take 2,000 mg by mouth once daily., Disp: , Rfl: metoprolol tartrate (Lopressor) 25 mg tablet, Take 1 tablet (25 mg) by mouth 2 times a day., Disp: , Rfl: oxybutynin XL (Ditropan-XL) 5 mg 24 hr tablet, Take 1 tablet (5 mg) by mouth once daily at bedtime., Disp: , Rfl: sulfamethoxazole-trimethoprim (Bactrim DS) 800-160 mg tablet, Take 1 tablet by mouth once daily. ON THURSDAY, THURSDAY, AND THURSDAY., Disp: , Rfl: tacrolimus (Prograf) 1 mg capsule, Take 2 capsules (2 mg) by mouth twice a day., Disp: , Rfl: tamsulosin (Flomax) 0.4 mg 24 hr capsule, Take 1 capsule (0.4 mg) by mouth 2 times a day., Disp: , Rfl: terazosin (Hytrin) 5 mg capsule, Take 1 capsule (5 mg) by mouth once daily at bedtime., Disp: , Rfl: zinc gluconate 50 mg tablet, Take 1 tablet (50 mg) by mouth once daily., Disp: , Rfl: Assessment/Plan 1. Sick sinus syndrome (CMS/HCC) 2. Essential hypertension 3. Mixed hyperlipidemia 4. Overweight with body mass index (BMI) of 26 to 26.9 in adult 5. Liver transplanted (CMS/HCC) 6. Pacemaker documented in this encounter [facility] Work Phone: 04-10-2023 Instructions Reina Wagner LPN - 04/10/2023 8:30 AM EDT Please bring all medicines, vitamins, and herbal supplements with you when you come to the office. Prescriptions will not be filled unless you are compliant with your follow up appointments or have a follow up appointment scheduled as per instruction of your physician. Refills should be requested at the time of your visit. documented in this encounter [facility] Work Phone: 02-25-2023 Hospital Discharge instructions Patient Education 02/25/2023 09:44:11 Prostate Cancer Screening Prostate Cancer Screening Prostate cancer screening is testing that is done to check for the presence of prostate cancer in men. The prostate gland is a walnut-sized gland that is located below the bladder and in front of the rectum in males. The function of the prostate is to add fluid to semen during ejaculation. Prostate cancer is one of the most common types of cancer in men. Who should have prostate cancer screening? Screening recommendations vary based on age and other risk factors, as well as between the professional organizations who make the recommendations. In general, screening is recommended if: You are age 50 to 70 and have an average risk for prostate cancer. You should talk with your health care provider about your need for screening and how often screening should be done. Because most prostate cancers are slow growing and will not cause , screening in this age group is generally reserved for men who have a 10- to 15-year life expectancy. You are younger than age 50, and you have these risk factors: ?Having a father, brother, or uncle who has been diagnosed with prostate cancer. The risk is higher if your family member's cancer occurred at an early age or if you have multiple family members with prostate cancer at an early age. ?Being a male who is Black or is of [place] or sub-Saharan descent. In general, screening is not recommended if: You are younger than age 40. You are between the ages of 40 and 49 and you have no risk factors. You are 70 years of age or older. At this age, the risks that screening can cause are greater than the benefits that it may provide. If you are at high risk for prostate cancer, your health care provider may recommend that you have screenings more often or that you start screening at a younger age. How is screening for prostate cancer done? The recommended prostate cancer screening test is a blood test called the prostate-specific antigen (PSA) test. PSA is a protein that is made in the prostate. As you age, your prostate naturally produces more PSA. Abnormally high PSA levels may be caused by: Prostate cancer. An enlarged prostate that is not caused by cancer (benign prostatic hyperplasia, or BPH). This condition is very common in older men. A prostate gland infection (prostatitis) or urinary tract infection. Certain medicines such as male hormones (like testosterone) or other medicines that raise testosterone levels. A rectal exam may be done as part of prostate cancer screening to help provide information about the size of your prostate gland. When a rectal exam is performed, it should be done after the PSA level is drawn to avoid any effect on the results. Depending on the PSA results, you may need more tests, such as: A physical exam to check the size of your prostate gland, if not done as part of screening. Blood and imaging tests. A procedure to remove tissue samples from your prostate gland for testing (biopsy). This is the only way to know for certain if you have prostate cancer. What are the benefits of prostate cancer screening? Screening can help to identify cancer at an early stage, before symptoms start and when the cancer can be treated more easily. There is a small chance that screening may lower your risk of dying from prostate cancer. The chance is small because prostate cancer is a slow-growing cancer, and most men with prostate cancer from a different cause. What are the risks of prostate cancer screening? The main risk of prostate cancer screening is diagnosing and treating prostate cancer that would never have caused any symptoms or problems. This is called overdiagnosisand overtreatment. PSA screening cannot tell you if your PSA is high due to cancer or a different cause. A prostate biopsy is the only procedure to diagnose prostate cancer. Even the results of a biopsy may not tell you if your cancer needs to be treated. Slow-growing prostate cancer may not need any treatment other than monitoring, so diagnosing and treating it may cause unnecessary stress or other side effects. Questions to ask your health care provider When should I start prostate cancer screening? What is my risk for prostate cancer? How often do I need screening? What type of screening tests do I need? How do I get my test results? What do my results mean? Do I need treatment? Where to find more information [employer] [place] [employer]: www.cancer.org [place]: www.auanet.org Contact a health care provider if: You have difficulty urinating. You have pain when you urinate or ejaculate. You have blood in your urine or semen. You have pain in your back or in the area of your prostate. Summary Prostate cancer is a common type of cancer in men. The prostate gland is located below the bladder and in front of the rectum. This gland adds fluid to semen during ejaculation. Prostate cancer screening may identify cancer at an early stage, when the cancer can be treated more easily and is less likely to have spread to other areas of the body. The prostate-specific antigen (PSA) test is the recommended screening test for prostate cancer, but it has associated risks. Discuss the risks and benefits of prostate cancer screening with your health care provider. If you are age 70 or older, the risks that screening can cause are greater than the benefits that it may provide. This information is not intended to replace advice given to you by your health care provider. Make sure you discuss any questions you have with your health care provider. Document Revised: 11/25/2021 Document Reviewed: 11/25/2021 [employer] Patient Education 2022 [employer]. Follow Up Care 11/18/2022 14:45:41 With:Chandler CHAVEZ, TAMEKA Mendoza, URO Address: When:Within 3 Month(s) [facility] 02-23-2023 Miscellaneous Notes Spoke with patient who advised he is feeling well. He denies any complaints. States most days I fell like I am 52 y/O again, thank you . Reviewed recent labs and advised moving forward will have his local lab run his tacrolimus test. Requested he send a My Chart message when he has labs drawn locally. Copy of updated lab letter sent to patent and also faxed to local lab [phone]. Pt verbalized understanding, no further questions at this time. Yulisa Lewis RN, BSN, [facility] [employer] documented in this encounter [facility] 01-01-2023 Evaluation note Encounter Date Diagnosis Assessment Notes Dec, Change in bowel habits (ICD-10 - R19.4) Dec, Other dysphagia (ICD-10 - R13.19) [employer] Other 06-16-2023 Evaluation note* Encounter Date Diagnosis Assessment Notes Treatment Notes Treatment Clinical Notes Nov, Age-related osteoporosis without current pathological fracture (ICD-10 - M81.0) [employer] Other 04-26-2023 Hospital Discharge instructions Patient Education 10/08/2022 08:22:11 Transurethral Resection of the Prostate Transurethral Resection of the Prostate Transurethral resection of the prostate (TURP) is the removal, or resection, of part of the prostate tissue. This procedure is done to treat an enlarged prostate gland (benign prostatic hyperplasia). The goal of TURP is to remove enough prostate tissue to allow for a normal flow of urine. The procedure will allow you to empty your bladder more completely when you urinate so that you can urinate less often. In a transurethral resection, a thin telescope with a light, a camera, and an electric cutting edge(resectoscope) is passed through the urethra and into the prostate. The opening of the urethra is at the end of the penis. Tell a health care provider about: Any allergies you have. All medicines you are taking, including vitamins, herbs, eye drops, creams, and pmuj-izi-urkjqpn medicines. Any problems you or family members have had with anesthetic medicines. Any bleeding problems you have. Any surgeries you have had. Any medical conditions you have. Any prostate infections you have had. What are the risks? Generally, this is a safe procedure. However, problems may occur, including: Infection. Bleeding. Allergic reactions to medicines. Blood in the urine (hematuria). Damage to nearby structures or organs. Other problems may occur, but they are rare. They include: Dry ejaculation, or having no semen come out during orgasm. Erectile dysfunction, or being unable to have or keep an erection. Scarring that leads to narrowing of the urethra. This narrowing may block the flow of urine. Inability to control when you urinate (incontinence). Deep vein thrombosis. This is a blood clot that can develop in your leg. TURP syndrome. This can happen when you lose too much sodium during or after the procedure. Some signs and symptoms of this condition include: ?Weakness. ?Headaches. ?Nausea or vomiting. ?Muscle cramping. What happens before the procedure? When to stop eating and drinking Follow instructions from your health care provider about what you may eat and drink before your procedure. These may include: 8 hours before your procedure ?Stop eating most foods. Do not eat meat, fried foods, or fatty foods. ?Eat only light foods, such as toast or crackers. ?All liquids are okay except energy drinks and alcohol. 6 hours before your procedure ?Stop eating. ?Drink only clear liquids, such as water, clear fruit juice, black coffee, plain tea, and sports drinks. ?Do not drink energy drinks or alcohol. 2 hours before your procedure ?Stop drinking all liquids. ?You may be allowed to take medicines with small sips of water. If you do not follow your health care provider's instructions, your procedure may be delayed or canceled. Medicines Ask your health care provider about: Changing or stopping your regular medicines. This is especially important if you are taking diabetes medicines or blood thinners. Taking medicines such as aspirin and ibuprofen. These medicines can thin your blood. Do not take these medicines unless your health care provider tells you to take them. Taking ujev-klu-fjaapov medicines, vitamins, herbs, and supplements. Surgery safety Ask your health care provider what steps will be taken to help prevent infection. These steps may include: Removing hair at the surgery site. Washing skin with a germ-killing soap. Taking antibiotic medicine. General instructions Do not use any products that contain nicotine or tobacco for at least 4 weeks before the procedure.These products include cigarettes, chewing tobacco, and vaping devices, such as e-cigarettes. If you need help quitting, ask your health care provider. If you will be going home right after the procedure, plan to have a responsible adult: ?Take you home from the hospital or clinic. You will not be allowed to drive. ?Care for you for the time you are told. What happens during the procedure? An IV will be inserted into one of your veins. You will be given one or more of the following: ?A medicine to help you relax (sedative). ?A medicine to make you fall asleep (general anesthetic). ?A medicine that is injected into your spine to numb the area below and slightly above the injection site (spinal anesthetic). Your legs will be placed in foot rests (stirrups) so that your legs are apart and your knees are bent. The resectoscope will be passed through your urethra to your prostate. Parts of your prostate will be resected using the cutting edge of the resectoscope. Fluid will be passed to rinse out the cut tissues (irrigation). The resectoscope will be removed. A small, thin tube (catheter) will be passed through your urethra and into your bladder. The catheter will drain urine into a bag outside of your body. The procedure may vary among health care providers and hospitals. What happens after the procedure? Your blood pressure, heart rate, breathing rate, and blood oxygen level will be monitored until youleave the hospital or clinic. You will be given fluids through the IV. The IV will be removed when you start eating and drinking normally. You may have some pain. Pain medicine will be available to help you. You will have a catheter draining your urine. ?You may have blood in your urine. Your catheter may be kept in until your urine is clear. ?Your urinary drainage will be monitored. If necessary, your bladder may be rinsed out (irrigated) through your catheter. You will be encouraged to walk around as soon as possible. You may have to wear compression stockings. These stockings help to prevent blood clots and reduce swelling in your legs. If you were given a sedative during the procedure, it can affect you for several hours. Do not drive or operate machinery until your health care provider says that it is safe. Summary Transurethral resection of the prostate (TURP) is the removal (resection) of part of the prostate tissue. The goal of this procedure is to remove enough prostate tissue to allow for a normal flow of urine. Follow instructions from your health care provider about taking medicines and about eating and drinking before the procedure. This information is not intended to replace advice given to you by your health care provider. Make sure you discuss any questions you have with your health care provider. Document Revised: 02/25/2022 Document Reviewed: 02/25/2022 [employer] Patient Education 2022 [employer]. Follow Up Care 09/22/2022 08:19:53 With:Chandler CHAVEZ, JIM MendozaL, URO Address: [address], [facility] [place] [address] [phone] When: Unknown [facility] [email or web address] 04-10-2023 Note [id number] 09-22-2022 NoteCystoscopy ? Voiding after the procedure: there may be some pain, burning, urgency, frequency and blood tingedurine following the procedure. These symptoms usually resolve within 2-5 days. Drink the amount of fluid it takes to keep the urine pink to yellow or clear in color. Drinking enough water and fluids will help to ease any discomfort after your procedure. ? If you are having problems that seem out of the ordinary, please call. ? If unable to contact your physician and you feel it is an emergency, go to the nearest emergency room or call 911 ? Diet ? you may resume your normal diet. ? Activity ? you may resume your normal activities ? Call if you have a fever over 100 degrees.[facility] 09-22-2022 Hospital Discharge instructions Patient Education 09/22/2022 08:38:01 [facility] - Cystoscopy Discharge Instructions (CUSTOM) Cystoscopy Voiding after the procedure: there may be some pain, burning, urgency, frequency and blood tinged urine following the procedure. These symptoms usually resolve within 2-5 days. Drink the amount of fluid it takes to keep the urine pink to yellow or clear in color. Drinking enough water and fluids will help to ease any discomfort after your procedure. If you are having problems that seem out of the ordinary, please call. If unable to contact your physician and you feel it is an emergency, go to the nearest emergency room or call 911 Diet you may resume your normal diet. Activity you may resume your normal activities Call if you have a fever over 100 degrees. Follow Up Care 09/10/2022 10:23:36 With:Sugey Chandler Address: [address] [facility] [place] [address] [phone] Business (1) [address], [address] [phone] [phone] Business (1) When: Unknown Comments:Office to schedule follow up in 2-4 wks to review MRI prostate and BPH procedures [facility]03-29-2023 Hospital Discharge instructions Patient Education 09/10/2022 10:13:37 Prostate-Specific Antigen Test Prostate-Specific Antigen Test Why am I having this test? The prostate-specific antigen (PSA) test is a screening test for prostate cancer. It can identify early signs of prostate cancer, which may allow for more effective treatment. Your health care provider may recommend that you have a PSA test starting at age 40 or that you have one earlier or later, depending on your risk factors for prostate cancer. You may also have a PSA test: To monitor treatment of prostate cancer. To check whether prostate cancer has returned after treatment. If you have signs of other conditions that can affect PSA levels, such as: ?An enlarged prostate that is not caused by cancer (benign prostatic hyperplasia, BPH). This condition is very common in older men. ?A prostate infection. What is being tested? This test measures the amount of PSA in your blood. PSA is a protein that is made in the prostate. The prostate naturally produces more PSA as you age, but very high levels may be a sign of a medicalcondition. What kind of sample is taken? A blood sample is required for this test. It is usually collected by inserting a needle into a blood vessel or by sticking a finger with a small needle. Blood for this test should be drawn before having an exam of the prostate. How do I prepare for this test? Do not ejaculate starting 24 hours before your test, or as long as told by your health care provider. Tell a health care provider about: Any allergies you have. All medicines you are taking, including vitamins, herbs, eye drops, creams, and sngo-piq-rodspvu medicines. This also includes: ?Medicines to assist with hair growth, such as finasteride. ?Any recent exposure to a medicine called diethylstilbestrol. Any blood disorders you have. Any recent procedures you have had, especially any procedures involving the prostate or rectum. Any medical conditions you have. Any recent urinary tract infections (UTIs) you have had. How are the results reported? Your test results will be reported as a value that indicates how much PSA is in your blood. This will be given as nanograms of PSA per milliliter of blood (ng/mL). Your health care provider will compare your results to normal ranges that were established after testing a large group of people (reference ranges). Reference ranges may vary among labs and hospitals. PSA levels vary from person to person and generally increase with age. Because of this variation, there is no single PSA value that is considered normal for everyone. Instead, PSA reference ranges are used to describe whether your PSA levels are considered low or high (elevated). Common reference ranges are: Low: 0 2.5 ng/mL. Slightly to moderately elevated: 2.6 10.0 ng/mL. Moderately elevated: 10.0 19.9 ng/mL. Significantly elevated: 20 ng/mL or greater. Sometimes, the test results may report that a condition is present when it is not present (false-positive result). What do the results mean? A test result that is higher than 4 ng/mL may mean that you are at an increased risk for prostate cancer. However, a PSA test by itself is not enough to diagnose prostate cancer. High PSA levels may also be caused by the natural aging process, prostate infection, or BPH. PSA screening cannot tell you if your PSA is high due to cancer or a different cause. A prostate biopsy is the only way to diagnose prostate cancer. A risk of having the PSA test is diagnosing and treating prostate cancer that would never have caused any symptoms or problems (overdiagnosis and overtreatment). Talk with your health care provider about what your results mean. Questions to ask your health care provider Ask your health care provider, or the department that is doing the test: When will my results be ready? How will I get my results? What are my treatment options? What other tests do I need? What are my next steps? Summary The prostate-specific antigen (PSA) test is a screening test for prostate cancer. Your health care provider may recommend that you have a PSA test starting at age 40 or that you have one earlier or later, depending on your risk factors for prostate cancer. A test result that is higher than 4 ng/mL may mean that you are at an increased risk for prostate cancer. However, elevated levels can be caused by a number of conditions other than prostate cancer. Talk with your health care provider about what your results mean. This information is not intended to replace advice given to you by your health care provider. Make sure you discuss any questions you have with your health care provider. Document Released: 07/04/2005 Document Revised: 05/14/2018 Document Reviewed: 03/08/2018 [employer] Patient Education 2020 [employer]. 09/10/2022 10:13:27 Benign Prostatic Hyperplasia Benign Prostatic Hyperplasia Benign prostatic hyperplasia (BPH) is an enlarged prostate gland that is caused by the normal agingprocess and not by cancer. The prostate is a walnut-sized gland that is involved in the production of semen. It is located in front of the rectum and below the bladder. The bladder stores urine and the urethra is the tube that carries the urine out of the body. The prostate may get bigger as a man gets older. An enlarged prostate can press on the urethra. This can make it harder to pass urine. The build-up of urine in the bladder can cause infection. Back pressure and infection may progress to bladder damage and kidney (renal) failure. What are the causes? This condition is part of a normal aging process. However, not all men develop problems from this condition. If the prostate enlarges away from the urethra, urine flow will not be blocked. If it enlarges toward the urethra and compresses it, there will be problems passing urine. What increases the risk? This condition is more likely to develop in men over the age of 50 years. What are the signs or symptoms? Symptoms of this condition include: Getting up often during the night to urinate. Needing to urinate frequently during the day. Difficulty starting urine flow. Decrease in size and strength of your urine stream. Leaking (dribbling) after urinating. Inability to pass urine. This needs immediate treatment. Inability to completely empty your bladder. Pain when you pass urine. This is more common if there is also an infection. Urinary tract infection (UTI). How is this diagnosed? This condition is diagnosed based on your medical history, a physical exam, and your symptoms. Tests will also be done, such as: A post-void bladder scan. This measures any amount of urine that may remain in your bladder after you finish urinating. A digital rectal exam. In a rectal exam, your health care provider checks your prostate by putting a lubricated, gloved finger into your rectum to feel the back of your prostate gland. This exam detects the size of your gland and any abnormal lumps or growths. An exam of your urine (urinalysis). A prostate specific antigen (PSA) screening. This is a blood test used to screen for prostate cancer. An ultrasound. This test uses sound waves to electronically produce a picture of your prostate gland. Your health care provider may refer you to a specialist in kidney and prostate diseases (urologist). How is this treated? Once symptoms begin, your health care provider will monitor your condition (active surveillance or watchful waiting). Treatment for this condition will depend on the severity of your condition. Treatment may include: Observation and yearly exams. This may be the only treatment needed if your condition and symptoms are mild. Medicines to relieve your symptoms, including: ?Medicines to shrink the prostate. ?Medicines to relax the muscle of the prostate. Surgery in severe cases. Surgery may include: ?Prostatectomy. In this procedure, the prostate tissue is removed completely through an open incision or with a laparoscope or robotics. ?Transurethral resection of the prostate (TURP). In this procedure, a tool is inserted through the opening at the tip of the penis (urethra). It is used to cut away tissue of the inner core of the prostate. The pieces are removed through the same opening of the penis. This removes the blockage. ?Transurethral incision (TUIP). In this procedure, small cuts are made in the prostate. This lessens the prostate's pressure on the urethra. ?Transurethral microwave thermotherapy (TUMT). This procedure uses microwaves to create heat. The heat destroys and removes a small amount of prostate tissue. ?Transurethral needle ablation (TUNA). This procedure uses radio frequencies to destroy and remove a small amount of prostate tissue. ?Interstitial laser coagulation (ILC). This procedure uses a laser to destroy and remove a small amount of prostate tissue. ?Transurethral electrovaporization (TUVP). This procedure uses electrodes to destroy and remove a small amount of prostate tissue. ?Prostatic urethral lift. This procedure inserts an implant to push the lobes of the prostate away from the urethra. Follow these instructions at home: Take [id number] and prescription medicines only as told by your health care provider. Monitor your symptoms for any changes. Contact your health care provider with any changes. Avoid drinking large amounts of liquid before going to bed or out in public. Avoid or reduce how much caffeine or alcohol you drink. Give yourself time when you urinate. Keep all follow-up visits as told by your health care provider. This is important. Contact a health care provider if: You have unexplained back pain. Your symptoms do not get better with treatment. You develop side effects from the medicine you are taking. Your urine becomes very dark or has a bad smell. Your lower abdomen becomes distended and you have trouble passing your urine. Get help right away if: You have a fever or chills. You suddenly cannot urinate. You feel lightheaded, or very dizzy, or you faint. There are large amounts of blood or clots in the urine. Your urinary problems become hard to manage. You develop moderate to severe low back or flank pain. The flank is the side of your body between the ribs and the hip. These symptoms may represent a serious problem that is an emergency. Do not wait to see if the symptoms will go away. Get medical help right away. Call your local emergency services (911 in the [place] Do not drive yourself to the hospital. Summary Benign prostatic hyperplasia (BPH) is an enlarged prostate that is caused by the normal aging process and not by cancer. An enlarged prostate can press on the urethra. This can make it hard to pass urine. This condition is part of a normal aging process and is more likely to develop in men over the age of 50 years. Get help right away if you suddenly cannot urinate. This information is not intended to replace advice given to you by your health care provider. Make sure you discuss any questions you have with your health care provider. Document Released: 06/01/2006 Document Revised: 04/26/2019 Document Reviewed: 07/06/2017 [employer] Patient Education 2020 [employer]. Follow Up Care 02/26/2022 15:32:46 With:Chandler CHAVEZ, TAMEKA Mendoza, URO Address: When:Within 6 Month(s) Comments:w/BI [facility] 09-14-2022 Hospital Discharge instructions Patient Education 02/26/2022 15:32:01 Prostate Cancer Screening Prostate Cancer Screening The prostate is a walnut-sized gland that is located below the bladder and in front of the rectum in males. The function of the prostate (prostate gland) is to add fluid to semen during ejaculation. Prostate cancer is the second most common type of cancer in men. A screening test for cancer is a test that is done before cancer symptoms start. Screening can helpto identify cancer at an early stage, when the cancer can be treated more easily. The recommended prostate cancer screening test is a blood test called the prostate-specific antigen (PSA) test. PSA is a protein that is made in the prostate. As you age, your prostate naturally produces more PSA. Abnormally high PSA levels may be caused by: Prostate cancer. An enlarged prostate that is not caused by cancer (benign prostatic hyperplasia, BPH). This condition is very common in older men. A prostate gland infection (prostatitis). Medicines to assist with hair growth, such as finasteride. Depending on the PSA results, you may need more tests, such as: A physical exam to check the size of your prostate gland. Blood and imaging tests. A procedure to remove tissue samples from your prostate gland for testing (biopsy). Who should have screening? Screening recommendations vary based on age. If you are younger than age 40, screening is not recommended. If you are age 40 54 and you have no risk factors, screening is not recommended. If you are younger than age 55, ask your health care provider if you need screening if you have oneof these risk factors: ?Being of -[place] descent. ?Having a family history of prostate cancer. If you are age 55 69, talk with your health care provider about your need for screening and how often screening should be done. If you are older than age 70, screening is not recommended. This is because the risks that screening can cause are greater than the benefits that it may provide (risks outweigh the benefits). If you are at high risk for prostate cancer, your health care provider may recommend that you have screenings more often or start screening at a younger age. You may be at high risk if you: Are older than age 55. Are -[place]. Have a father, brother, or uncle who has been diagnosed with prostate cancer. The risk may be higher if your family member's cancer occurred at an early age. What are the benefits of screening? There is a small chance that screening may lower your risk of dying from prostate cancer. The chance is small because prostate cancer is typically a slow-growing cancer, and most men with prostate cancer from a different cause. What are the risks of screening? The main risk of prostate cancer screening is diagnosing and treating prostate cancer that would never have caused any symptoms or problems (overdiagnosis and overtreatment). PSA screening cannot tell you if your PSA is high due to cancer or a different cause. A prostate biopsy is the only procedure to diagnose prostate cancer. Even the results of a biopsy may not tell you if your cancer needs blayne treated. Slow-growing prostate cancer may not need any treatment other than monitoring, so diagnosing and treating it may cause unnecessary stress or other side effects. A prostate biopsy may also cause: Infection or fever. A false negative. This is a result that shows that you do not have prostate cancer when you actually do have prostate cancer. Questions to ask your health care provider When should I start prostate cancer screening? What is my risk for prostate cancer? How often do I need screening? What type of screening tests do I need? How do I get my test results? What do my results mean? Do I need treatment? Contact a health care provider if: You have difficulty urinating. You have pain when you urinate or ejaculate. You have blood in your urine or semen. You have pain in your back or in the area of your prostate. You have trouble getting or maintaining an erection (erectile dysfunction, ED). Summary Prostate cancer is a common type of cancer in men. The prostate (prostate gland) is located below the bladder and in front of the rectum. This gland adds fluid to semen during ejaculation. Prostate cancer screening may identify cancer at an early stage, when the cancer can be treated more easily. The prostate-specific antigen (PSA) test is the recommended screening test for prostate cancer. Discuss the risks and benefits of prostate cancer screening with your health care provider. If you are age 70 or older, screening is likely to lead to more risks than benefits (risks outweigh the benefits). This information is not intended to replace advice given to you by your health care provider. Make sure you discuss any questions you have with your health care provider. Document Released: 03/12/2018 Document Revised: 05/14/2018 Document Reviewed: 03/12/2018 [employer] Patient Education 2020 [employer]. Follow Up Care 01/02/2022 11:31:28 With:YVONNE PEREZ, VINICIUS Lemons, URL Address: [place] [id number] When:6 months Comments:W/ PSA [facility] [place] 07-12-2022 Hospital Discharge instructions Patient Education 12/24/2021 08:32:55 Prostate-Specific Antigen Test Prostate-Specific Antigen Test Why am I having this test? The prostate-specific antigen (PSA) test is a screening test for prostate cancer. It can identify early signs of prostate cancer, which may allow for more effective treatment. Your health care provider may recommend that you have a PSA test starting at age 40 or that you have one earlier or later, depending on your risk factors for prostate cancer. You may also have a PSA test: To monitor treatment of prostate cancer. To check whether prostate cancer has returned after treatment. If you have signs of other conditions that can affect PSA levels, such as: ?An enlarged prostate that is not caused by cancer (benign prostatic hyperplasia, BPH). This condition is very common in older men. ?A prostate infection. What is being tested? This test measures the amount of PSA in your blood. PSA is a protein that is made in the prostate. The prostate naturally produces more PSA as you age, but very high levels may be a sign of a medicalcondition. What kind of sample is taken? A blood sample is required for this test. It is usually collected by inserting a needle into a blood vessel or by sticking a finger with a small needle. Blood for this test should be drawn before having an exam of the prostate. How do I prepare for this test? Do not ejaculate starting 24 hours before your test, or as long as told by your health care provider. Tell a health care provider about: Any allergies you have. All medicines you are taking, including vitamins, herbs, eye drops, creams, and eajh-qhy-hktlcec medicines. This also includes: ?Medicines to assist with hair growth, such as finasteride. ?Any recent exposure to a medicine called diethylstilbestrol. Any blood disorders you have. Any recent procedures you have had, especially any procedures involving the prostate or rectum. Any medical conditions you have. Any recent urinary tract infections (UTIs) you have had. How are the results reported? Your test results will be reported as a value that indicates how much PSA is in your blood. This will be given as nanograms of PSA per milliliter of blood (ng/mL). Your health care provider will compare your results to normal ranges that were established after testing a large group of people (reference ranges). Reference ranges may vary among labs and hospitals. PSA levels vary from person to person and generally increase with age. Because of this variation, there is no single PSA value that is considered normal for everyone. Instead, PSA reference ranges are used to describe whether your PSA levels are considered low or high (elevated). Common reference ranges are: Low: 0 2.5 ng/mL. Slightly to moderately elevated: 2.6 10.0 ng/mL. Moderately elevated: 10.0 19.9 ng/mL. Significantly elevated: 20 ng/mL or greater. Sometimes, the test results may report that a condition is present when it is not present (false-positive result). What do the results mean? A test result that is higher than 4 ng/mL may mean that you are at an increased risk for prostate cancer. However, a PSA test by itself is not enough to diagnose prostate cancer. High PSA levels may also be caused by the natural aging process, prostate infection, or BPH. PSA screening cannot tell you if your PSA is high due to cancer or a different cause. A prostate biopsy is the only way to diagnose prostate cancer. A risk of having the PSA test is diagnosing and treating prostate cancer that would never have caused any symptoms or problems (overdiagnosis and overtreatment). Talk with your health care provider about what your results mean. Questions to ask your health care provider Ask your health care provider, or the department that is doing the test: When will my results be ready? How will I get my results? What are my treatment options? What other tests do I need? What are my next steps? Summary The prostate-specific antigen (PSA) test is a screening test for prostate cancer. Your health care provider may recommend that you have a PSA test starting at age 40 or that you have one earlier or later, depending on your risk factors for prostate cancer. A test result that is higher than 4 ng/mL may mean that you are at an increased risk for prostate cancer. However, elevated levels can be caused by a number of conditions other than prostate cancer. Talk with your health care provider about what your results mean. This information is not intended to replace advice given to you by your health care provider. Make sure you discuss any questions you have with your health care provider. Document Released: 07/04/2005 Document Revised: 05/14/2018 Document Reviewed: 03/08/2018 [employer] Patient Education [employer]. Follow Up Care 06/18/2021 08:41:53 With:Long More MD, Mike Cox URO Address: [facility] [address], [place] [phone]- When: Unknown [facility] 05-05-2022 Miscellaneous Notes* Telephone Encounter - Yulisa Lewis RN - 10/17/2021 8:51 AM EDT FK reviewed, no changes. [facility] History of Past illness Narrative* Problem Noted Date Resolved Date SB (acute kidney injury) 02/07/20152016 Hepatocellular carcinoma 12/21/2014 017 Hepatitis C 05/03/2013 02/18/2017 Ascites 11/10/2012 02/18/2017 Portal hypertension 11/10/2012 02/18/2017 Leucocytosis 08/18/2012 02/18/2017 Overview: Elevated to 15 today PCT 0.19 (3/3) Afebrile Fernando cultures NGTD Plan: Repeat PCT Hold on broad ABX for now Start norfloxacin for SBP ppx Hyponatremia 08/18/2012 02/18/2017 Overview: In the setting of liver disease and high PO intake yesterday Has not received diuretics Plan Restrict free water today Dose lasix Trend level If continues low then broaden work up Hepatic encephalopathy 08/14/2012 7 Overview: - Previous episodes of hepatic encephalopathy in the past - apparently non- compliant with medications. - Previous history of IVDU, family denies any current use. - Previous history of alcohol intake, denies any current use. - This admission - HE grade 4, serum ammonia 228 at [place] [facility] , admitted 3 morning. - Per family, minor confusion since the last 6 months inspite of being on medications. - Intubated en route to [facility] for airway protection 2/ AMS. - Diagnostic para, culture NGTD, negative for SBP by counts. - Back to baseline [place] 08/17 -extubated PLAN: - Lactulose, zinc and rifaximin. - Follow cultures. DVT prophylaxis 08/14/2012 02/18/2017 Overview: Plan: - SQ heparin. - Pepcid for GI prophylaxis. Mechanically assisted ventilation 08/14/2012 02/18/2017 Overview: - Intubated on 08/14 en route from [facility] for airway protection. - Tolerating PSV. PLAN: - Pressure support, wean vent as tolerated. - Supportive care. Cirrhosis of liver without mention of alcohol 02/18/2017 Overview: MELD Score: 15 - Secondary to hepatitis C / ETOH - Complicated by portal hypertension, non-occlusive PVT on liver vasc US - Previous episodes of ascites, hepatic encephalopathy, UGI bleed, no recent SBP - Last paracentesis in Jul - 10 L removed at OSH, no SBP per family report. - Last EGD in 04/2012 - 5 mm varices, no banding, recommended follow up in 3 months and banding. - Not currently being treated for HEp C. - Last outpatient visit here with Dr Najera in 01/2012. - Paracentesis 08/14 (diagnostic)~negative for SBP by counts. - Liver vascular US shows gallstone, non-occlusive thrombus in the left portal vein, with patent vasculature and appropriate flow. Cirrhotic liver and large volume ascites. - needs SBP ppx with ascites, history of GIB and ascitic protein <1 PLAN: - Continue lactulose, Rifaximin, and zinc. - Hepatology recs. - start norfloxacin 400mg daily while hospitalized Bacteremia 01/06/2007 02/18/2017 Other streptococcus infectio n in conditions classified elsewhere and of unspecified site 01/06/2007 02/18/2017 Overview: Viridans documented as of this encounter (statuses as of 09/16/2021) [facility] History of Past illness Narrative* Problem Noted Date Resolved Date SB (acute kidney injury) 02/07/20152016 Hepatocellular carcinoma 12/21/2014 017 Hepatitis C 05/03/2013 02/18/2017 Ascites 11/10/2012 02/18/2017 Portal hypertension 11/10/2012 02/18/2017 Leucocytosis 08/18/2012 02/18/2017 Overview: Elevated to 15 today PCT 0.19 (08/15) Afebrile Fernando cultures NGTD Plan: Repeat PCT Hold on broad ABX for now Start norfloxacin for SBP ppx Hyponatremia 08/18/2012 02/18/2017 Overview: In the setting of liver disease and high PO intake yesterday Has not received diuretics Plan Restrict free water today Dose lasix Trend level If continues low then broaden work up Hepatic encephalopathy 08/14/2012 7 Overview: - Previous episodes of hepatic encephalopathy in the past - apparently non- compliant with medications. - Previous history of IVDU, family denies any current use. - Previous history of alcohol intake, denies any current use. - This admission - HE grade 4, serum ammonia 228 at [place] [facility] , admitted 08/13 morning. - Per family, minor confusion since the last 6 months inspite of being on medications. - Intubated en route to [facility] for airway protection 07/17 AMS. - Diagnostic para, culture NGTD, negative for SBP by counts. - Back to baseline [place] 08/17 -extubated PLAN: - Lactulose, zinc and rifaximin. - Follow cultures. DVT prophylaxis 08/14/2012 02/18/2017 Overview: Plan: - SQ heparin. - Pepcid for GI prophylaxis. Mechanically assisted ventilation 08/14/2012 02/18/2017 Overview: - Intubated on 08/14 en route from [facility] for airway protection. - Tolerating PSV. PLAN: - Pressure support, wean vent as tolerated. - Supportive care. Cirrhosis of liver without mention of alcohol 02/18/2017 Overview: MELD Score: 15 - Secondary to hepatitis C / ETOH - Complicated by portal hypertension, non-occlusive PVT on liver vasc US - Previous episodes of ascites, hepatic encephalopathy, UGI bleed, no recent SBP - Last paracentesis in Jul - 10 L removed at OSH, no SBP per family report. - Last EGD in 04/2012 - 5 mm varices, no banding, recommended follow up in 3 months and banding. - Not currently being treated for HEp C. - Last outpatient visit here with Dr Najera in 01/2012. - Paracentesis 08/14 (diagnostic)~negative for SBP by counts. - Liver vascular US shows gallstone, non-occlusive thrombus in the left portal vein, with patent vasculature and appropriate flow. Cirrhotic liver and large volume ascites. - needs SBP ppx with ascites, history of GIB and ascitic protein <1 PLAN: - Continue lactulose, Rifaximin, and zinc. - Hepatology recs. - start norfloxacin 400mg daily while hospitalized Bacteremia 01/06/2007 02/18/2017 Other streptococcus infectio n in conditions classified elsewhere and of unspecified site 01/06/2007 02/18/2017 Overview: Viridans documented as of this encounter (statuses as of 10/17/2021) [facility] History of Past illness Narrative* Problem Noted Date Resolved Date SB (acute kidney injury) 02/07/20152016 Hepatocellular carcinoma 12/21/2014 017 Hepatitis C 05/03/2013 02/18/2017 Ascites 11/10/2012 02/18/2017 Portal hypertension 11/10/2012 02/18/2017 Leucocytosis 08/18/2012 02/18/2017 Overview: Elevated to 15 today PCT 0.19 (3/3) Afebrile Fernando cultures NGTD Plan: Repeat PCT Hold on broad ABX for now Start norfloxacin for SBP ppx Hyponatremia 08/18/2012 02/18/2017 Overview: In the setting of liver disease and high PO intake yesterday Has not received diuretics Plan Restrict free water today Dose lasix Trend level If continues low then broaden work up Hepatic encephalopathy 08/14/2012 7 Overview: - Previous episodes of hepatic encephalopathy in the past - apparently non- compliant with medications. - Previous history of IVDU, family denies any current use. - Previous history of alcohol intake, denies any current use. - This admission - HE grade 4, serum ammonia 228 at [place] [facility] , admitted 3/ morning. - Per family, minor confusion since the last 6 months inspite of being on medications. - Intubated [facility] for airway protection 07/17 AMS. - Diagnostic para, culture NGTD, negative for SBP by counts. - Back to baseline [place] 08/17 -extubated PLAN: - Lactulose, zinc and rifaximin. - Follow cultures. DVT prophylaxis 08/14/2012 02/18/2017 Overview: Plan: - SQ heparin. - Pepcid for GI prophylaxis. Mechanically assisted ventilation 08/14/2012 02/18/2017 Overview: - Intubated on 08/14 en route from [facility] for airway protection. - Tolerating PSV. PLAN: - Pressure support, wean vent as tolerated. - Supportive care. Cirrhosis of liver without mention of alcohol 02/18/2017 Overview: MELD Score: 15 - Secondary to hepatitis C / ETOH - Complicated by portal hypertension, non-occlusive PVT on liver vasc US - Previous episodes of ascites, hepatic encephalopathy, UGI bleed, no recent SBP - Last paracentesis in Jul - 10 L removed at OSH, no SBP per family report. - Last EGD in 04/2012 - 5 mm varices, no banding, recommended follow up in 3 months and banding. - Not currently being treated for HEp C. - Last outpatient visit here with Dr Najera in 01/2012. - Paracentesis 08/14 (diagnostic)~negative for SBP by counts. - Liver vascular US shows gallstone, non-occlusive thrombus in the left portal vein, with patent vasculature and appropriate flow. Cirrhotic liver and large volume ascites. - needs SBP ppx with ascites, history of GIB and ascitic protein <1 PLAN: - Continue lactulose, Rifaximin, and zinc. - Hepatology recs. - start norfloxacin 400mg daily while hospitalized Bacteremia 01/06/2007 02/18/2017 Other streptococcus infectio n in conditions classified elsewhere and of unspecified site 01/06/2007 02/18/2017 Overview: Viridans documented as of this encounter (statuses as of 11/08/2021) [facility] History of Past illness Narrative* Problem Noted Date Resolved Date SB (acute kidney injury) 02/07/20152016 Hepatocellular carcinoma 12/21/2014 017 Hepatitis C 05/03/2013 02/18/2017 Ascites 11/10/2012 02/18/2017 Portal hypertension 11/10/2012 02/18/2017 Leucocytosis 08/18/2012 02/18/2017 Overview: Elevated to 15 today PCT 0.19 (3/3) Afebrile Fernando cultures NGTD Plan: Repeat PCT Hold on broad ABX for now Start norfloxacin for SBP ppx Hyponatremia 08/18/2012 02/18/2017 Overview: In the setting of liver disease and high PO intake yesterday Has not received diuretics Plan Restrict free water today Dose lasix Trend level If continues low then broaden work up Hepatic encephalopathy 08/14/2012 7 Overview: - Previous episodes of hepatic encephalopathy in the past - apparently non- compliant with medications. - Previous history of IVDU, family denies any current use. - Previous history of alcohol intake, denies any current use. - This admission - HE grade 4, serum ammonia 228 at [facility] , admitted 3/1 morning. - Per family, minor confusion since the last 6 months inspite of being on medications. - Intubated en route to [facility] for airway protection 2/2 AMS. - Diagnostic para, culture NGTD, negative for SBP by counts. - Back to baseline MS 3 -extubated PLAN: - Lactulose, zinc and rifaximin. - Follow cultures. DVT prophylaxis 08/14/2012 02/18/2017 Overview: Plan: - SQ heparin. - Pepcid for GI prophylaxis. Mechanically assisted ventilation 08/14/2012 02/18/2017 Overview: - Intubated on 08/14 en route from [facility] for airway protection. - Tolerating PSV. PLAN: - Pressure support, wean vent as tolerated. - Supportive care. Cirrhosis of liver without mention of alcohol 02/18/2017 Overview: MELD Score: 15 - Secondary to hepatitis C / ETOH - Complicated by portal hypertension, non-occlusive PVT on liver vasc US - Previous episodes of ascites, hepatic encephalopathy, UGI bleed, no recent SBP - Last paracentesis in Jul - 10 L removed at OSH, no SBP per family report. - Last EGD in 04/2012 - 5 mm varices, no banding, recommended follow up in 3 months and banding. - Not currently being treated for HEp C. - Last outpatient visit here with Dr Najera in 01/2012. - Paracentesis 08/14 (diagnostic)~negative for SBP by counts. - Liver vascular US shows gallstone, non-occlusive thrombus in the left portal vein, with patent vasculature and appropriate flow. Cirrhotic liver and large volume ascites. - needs SBP ppx with ascites, history of GIB and ascitic protein <1 PLAN: - Continue lactulose, Rifaximin, and zinc. - Hepatology recs. - start norfloxacin 400mg daily while hospitalized Bacteremia 01/06/2007 02/18/2017 Other streptococcus infectio n in conditions classified elsewhere and of unspecified site 01/06/2007 02/18/2017 Overview: Viridans documented as of this encounter (statuses as of 09/04/2022) [facility] History of Past illness Narrative* Problem Noted Date Diagnosed Date Resolved Date SB (acute kidney injury) 02/07/2015 Hepatocellular carcinoma 12/21/201411/2016 Hepatitis C 05/03/2013 02/18/2017 Ascites 11/10/2012 02/18/2017 Portal hypertension 11/10/2012 02/19/20 17 Leucocytosis 08/18/2012 02/18/2017 Overview: Elevated to 15 today PCT 0.19 (3/3) Afebrile Fernando cultures NGTD Plan: Repeat PCT Hold on broad ABX for now Start norfloxacin for SBP ppx Hyponatremia 08/18/2012 02/18/2017 Overview: In the setting of liver disease and high PO intake yesterday Has not received diuretics Plan Restrict free water today Dose lasix Trend level If continues low then broaden work up Hepatic encephalopathy 08/14/201202/18 Overview: - Previous episodes of hepatic encephalopathy in the past - apparently non- compliant with medications. - Previous history of IVDU, family denies any current use. - Previous history of alcohol intake, denies any current use. - This admission - HE grade 4, serum ammonia 228 at [facility] , admitted 3/ morning. - Per family, minor confusion since the last 6 months inspite of being on medications. - Intubated en route to [facility] for airway protection 2/ AMS. - Diagnostic para, culture NGTD, negative for SBP by counts. - Back to baseline MS 3 -extubated PLAN: - Lactulose, zinc and rifaximin. - Follow cultures. DVT prophylaxis 08/14/2012 02/18/2017 Overview: Plan: - SQ heparin. - Pepcid for GI prophylaxis. Mechanically assisted ventilation 08/14/2012 02/18/2017 Overview: - Intubated on 08/14 en route from [facility] for airway protection. - Tolerating PSV. PLAN: - Pressure support, wean vent as tolerated. - Supportive care. Cirrhosis of liver without mention of alcohol 10/18/19 08 02/18/2017 Overview: MELD Score: 15 - Secondary to hepatitis C / ETOH - Complicated by portal hypertension, non-occlusive PVT on liver vasc US - Previous episodes of ascites, hepatic encephalopathy, UGI bleed, no recent SBP - Last paracentesis in Jul - 10 L removed at OSH, no SBP per family report. - Last EGD in 04/2012 - 5 mm varices, no banding, recommended follow up in 3 months and banding. - Not currently being treated for HEp C. - Last outpatient visit here with Dr Najera in 01/2012. - Paracentesis 08/14 (diagnostic)~negative for SBP by counts. - Liver vascular US shows gallstone, non-occlusive thrombus in the left portal vein, with patent vasculature and appropriate flow. Cirrhotic liver and large volume ascites. - needs SBP ppx with ascites, history of GIB and ascitic protein <1 PLAN: - Continue lactulose, Rifaximin, and zinc. - Hepatology recs. - start norfloxacin 400mg daily while hospitalized Bacteremia 01/06/2007 02/18/2017 Other streptococcus infectio n in conditions classified elsewhere and of unspecified site 01/06/2007 02/18/2017 Overview: Viridans documented as of this encounter (statuses as of 02/24/2023) [facility] No data available for this section [facility] evaluation + Plan note Future Appointments Appointment Date:08/26/2022 08:00:00 AM Scheduled Provider:Long More MD, Mike Cox Location:[facility] Appointment Type:URO Office Visit Diagnostic Tests Pending * PSA Total 02/26/22 [facility] evaluation + Plan note Future Appointments Appointment Date:09/11/2022 08:00:00 AM Scheduled Provider: Location:[facility] Appointment Type:Urology CALL PAT FT Appointment Date:09/15/2022 09:45:00 AM Scheduled Provider: Location:[facility] Appointment Type:Urology FT Diagnostic Tests Pending * PSA Total 09/10/22 [facility] evaluation + Plan note Future Appointments Appointment Date:10/08/2022 08:00:00 AM Scheduled Provider:Sugey Arteaga MD Location:[facility] Future Appointments Appointment Date:05/27/2023 09:45:00 AM Scheduled Provider:Sugey Arteaga MD Location:[facility] Appointment Type:URO Office Visit [facility] evaluation + Plan note Future Appointments Appointment Date:02/17/2024 09:45:00 AM Scheduled Provider:Sugey Arteaga MD Location:[facility] Appointment Type:URO Office Visit Diagnostic Tests Pending * PSA Free & Total 05/27/23 [facility] evaluation note* Diagnosis Liver replaced by transplant (HCC) Liver replaced by transplant documented in this encounter [facility] note* Diagnosis Need for prophylactic immunotherapy Transplanted liver (HCC) Liver replaced by transplant documented in this encounter [facility] noteNo assessment information [facility] Work Phone: Evaluoowle note* Diagnosis Liver replaced by transplant (HCC) Liver replaced by transplant documented in this encounter [facility] noteNo Information[place] Other Evaluation note* Diagnosis Sick sinus syndrome (CMS/HCC)- Primary Sinoatrial node dysfunction Essential hypertension Unspecified essential hypertension Mixed hyperlipidemia Overweight with body mass index (BMI) of 26 to 26.9 in adult Liver transplanted (CMS/HCC) Liver replaced by transplant Pacemaker Cardiac pacemaker in situ documented in this encounter [facility] Work Phone: Hiscwef general Narrative - Reported* Type Description Date Medical History HISTORY OF HEP C Medical History LIVER TRANSPLANT Medical History prostatism Medical History liver cancer Surgical History APPENDECTOMY Surgical History HERNIA REPAIR Surgical History LIVER TRANSPLANT Surgical History VEIN STRIPPING 2006 Hospitalization History SEE [facility] [place] Other Hislwbw general Narrative - Reported* Type Description Date Medical History HISTORY OF HEP C Medical History LIVER TRANSPLANT Medical History prostatism Medical History liver cancer Medical History PACE MAKER PLACED Surgical History APPENDECTOMY Surgical History HERNIA REPAIR Surgical History LIVER TRANSPLANT Surgical History VEIN STRIPPING 2005 Surgical History PACE MAKER PLACEMENT Hospitalization History SEE [facility] [place] Other History of Present illness Narrative* Patient developed management for sick sinus syndrome, hypertension, hyperlipidemia and obesity. He denies chest pain, dyspnea, palpitation, lightheadedness, dizzy syncope. He remains reasonably active. Recent device check noted and reviewed with him. * Assessment * 1. Sick sinus syndrome status post prior permanent pacemaker implantation. Stable. Recent device check satisfactory * 2. Hypertension controlled * 3. Mild hyperlipidemia followed by his transplant team * 4. Status post liver transplant good liver function test * 5. Obesity * 6. Very low burden atrial fibrillation noted previously on device check. None on his last few device check * Plan * 1. The patient will remain the current treatment * 2. Patient recent device check was reviewed with him * 3. The patient will continue his pacemaker monitoring * 4. The patient was counseled regarding llosing Weight, Exercise and Dietary Modification * 5. Follow-up in 1 year [facility] 250 DO Work Phone: Progress note No data available for this section [facility] reason for referral (narrative)* Consultation (Routine) - Authorized Specialty Diagnoses / Procedures Referred By Contac t Referred To Contact Cardiology Diagnoses Sick sinus syndrome (CMS/HCC) Essential hypertension Mixed hyperlipidemia Procedures Follow Up In Cardiology Shea Brannon MD [address] [place] [address], [address] [address] Shea Brannon MD [address] [place], [place] [address]er [facility] 2, [address] [address] Referral ID Status Reason Start Date Expiration Date V isits Requested Visits Authorized [id number] Authorized 04/10/2023 04/09/2024 1 1 [facility] Work Phone: Summary Purpose Family History No Family History Records FoundUnknown Family Member Name Dates Details Family history of cardiac pa cemaker: Father(V17.49, Z82.49) Status:Active S/P CABG (coronary artery by pass graft): Sister(V45.81, Z95.1) Status:Active Family history of myocardial infarction: Sister(V17.3, Z82.49) Status:Active Unknown Family Member Name Dates Details Family history of cardiac pa cemaker: Father(V17.49, Z82.49) Status:Active S/P CABG (coronary artery by pass graft): Sister(V45.81, Z95.1) Status:Active Family history of myocardial infarction: Sister(V17.3, Z82.49) Status:Active Unknown Family Member Name Dates Details Family history of cardiac pa cemaker: Father(V17.49, Z82.49) Status:Active S/P CABG (coronary artery by pass graft): Sister(V45.81, Z95.1) Status:Active Family history of myocardial infarction: Sister(V17.3, Z82.49) Status:Active Unknown Family Member Name Dates Details Family history of cardiac pa cemaker: Father(V17.49, Z82.49) Status:Active S/P CABG (coronary artery by pass graft): Sister(V45.81, Z95.1) Status:Active Family history of myocardial infarction: Sister(V17.3, Z82.49) Status:Active Unknown Family Member Name Dates Details Family history of cardiac pa cemaker: Father(V17.49, Z82.49) Status:Active S/P CABG (coronary artery by pass graft): Sister(V45.81, Z95.1) Status:Active Family history of myocardial infarction: Sister(V17.3, Z82.49) Status:Active Relationship Condition Age at Onset Recorded Date/T rabia Not Specified Diabetes mellitus Unknown Heart disease Unknown father Heart disease Unknown Advance Directives No Advanced Directives Records Found Advance Directive Response Recorded Date/ Time Advance Directives Yes July 9:52pm Advance Directive Response Recorded Date/ Time Advance Directives Yes July 10:52pm Chief Complaint SUSAN SHERMAN is being seen for an annual follow-up of. Chief Complaint and Reason for Visit Chief Complaint R55 Z95.0 Chief Complaint r97.20 Chief Complaint r97.20 R55 Z95.0 R19.4 d07.5 Chief Complaint R55 Z95.0 R19.4 d07.5 dysphagia, change in bowel habits m81.0 Additional Source Comments (unrecognized sect ion and content) No Status Records FoundNo Status Records FoundNo Status Records FoundNo Status Records FoundNo Status Records FoundNo Status Records FoundNo Status Records FoundNo Status Records Found INFORMATION SOURCE (unrecogn ized section and content) DATE CREATED AUTHOR 12/08/2017 [facility] DATE CREATED AUTHOR AUTHOR'S ORGANIZ ATION 04/16/2020 [facility] DATE CREATED AUTHOR AUTHOR'S ORGANIZ ATION 10/24/2022 [facility] DATE CREATED AUTHOR AUTHOR'S ORGANIZ ATION 11/23/2022 [facility] DATE CREATED AUTHOR AUTHOR'S ORGANIZ ATION 04/13/2023 [facility] DATE CREATED AUTHOR AUTHOR'S ORGANIZ ATION 04/23/2023 [facility] DATE CREATED AUTHOR AUTHOR'S ORGANIZ ATION 05/10/2023 [facility] DATE CREATED AUTHOR AUTHOR'S ORGANIZ ATION 05/31/2023 [facility] Source Comments (unrecognize d section and content) In the event this informatio n is protected by the Federal Confidentiality of Alcohol and Drug Abuse Patient Records regulations: The Federal rules restrict any use of the information to criminally investigate or prosecute any alcohol or drug abuse patient.[facility] the event this information is protected by the Federal Confidentiality of Alcohol and Drug Abuse Patient Records regulations: The Federal rules restrict any use of the information to criminally investigate or prosecute any alcohol or drug abuse patient.[facility] the event this information is protected by the Federal Confidentiality of Alcohol and Drug Abuse Patient Records regulations: The Federal rules restrict any use of the information to criminally investigate or prosecute any alcohol or drug abuse patient.[facility] the event this information is protected by the Federal Confidentiality of Alcohol and Drug Abuse Patient Records regulations: The Federal rules restrict any use of the information to criminally investigate or prosecute any alcohol or drug abuse patient.[facility] the event this information is protected by the Federal Confidentiality of Alcohol and Drug Abuse Patient Records regulations: The Federal rules restrict any use of the information to criminally investigate or prosecute any alcohol or drug abuse patient.[facility] Reason for Visit (unrecogniz ed section and content) Reason Comments Refill Request Reason Comments Opened In Error Reason Comments Patient Update Orders New standing lab ord er Reason Comments Follow-up 1y Care Teams (unrecognized sec tion and content) Team Status: Active Member Role Status Dates Elvira Schultz , DO Primary Care Provider Active Team Status: Inactive Member Role Status Dates Elvira Schultz , DO Primary Care Provider Active Sugey Arteaga MD Attending Provider Active Director Of Personnel Relationship Specialty Start Date End Date Bunting, Elvira Ray, DO [address] [place] [address] PCP - General Family Practice 01/06/12 Yulisa Lewis RN [address] [address] Registered Nurse Transplant Center 07/14/19 Director Of Personnel Relationship Specialty Start Date End Date BunElvira serrano Ray, DO [address] [place] [address] PCP - General Acute Hospital Practice 01/06/12 Yulisa Lewis RN [address] [address] Registered Nurse Transplant Center 07/14/19 Team Status: Inactive Member Role Status Dates Elvira Schultz , Primary Care Provider Active Shea Brannon MD Attending Provider Active Director Of Personnel Relationship Specialty Start Date End Date BunElvira serrano Ray, DO [address] [place] [address] PCP - General Acute Hospital Medicine 01/06/12 Yulisa Lewis RN [address] [address] Registered Nurse Transplant Center 07/14/19 Team Status: Inactive Member Role Status Dates Elvira Schulzt , Primary Care Provider Active Branden Woodward MD Attending Provider Active Team Status: Inactive Member Role Status Dates Elvira Schultz , DO Primary Care Provider Active Sheila Magallanes MD Attending Provider Active Director Of Personnel Relationship Specialty Start Date End Date BunElvira serrano Ray, DO [address] [place] [address] PCP - General Acute Hospital Medicine 01/06/12 Yulisa Lewis RN [address] [address] Registered Nurse Transplant Center 07/14/19 Director Of Personnel Relationship Specialty Start Date End Date RuddyLloyd serranorin Erasto [address] [facility] [place] [address] PCP - General 06/15/99 Goals (unrecognized section and content) Goals may be documented in a n alternate section FOR RECORDS PERTAINING TO PATIENTS WHO ARE OR HAVE BEEN ENROLLED IN A CHEMICAL DEPENDENCY/SUBSTANCEABUSE PROGRAM, SOME INFORMATION MAY BE OMITTED. This clinical summary was aggregated from multiple sources. Caution should be exercised in using it in the provision of clinical care. This summary normalizes information from multiple sources, and as a consequence, information in this document may materially change the coding, format and clinical context of patient data. In addition, data may be omitted in some cases. CLINICAL DECISIONS SHOULD BE BASED ON THE PRIMARY CLINICAL RECORDS. [facility] provides no warranty or guarantee of the accuracy or completeness of information in this document.
[2023-06-16 08:19] LABS: Basophils Absolute Auto 0.1 10^3/uL (0.0-0.1); Eosinophils Absolute Auto 0.2 10^3/uL (0.0-0.7); Hematocrit 46.5 % (42.0-54.0); Hemoglobin 15.3 g/dL (14.0-18.0); Immature Granulocytes Abs Auto 0.02 10^3/uL (0.00-0.03); Immature Granulocytes Pct Auto 0.3 % (0.0-0.5); Lymphocytes Absolute Auto 0.7 10^3/uL (1.2-3.8); Lymphocytes Percent Auto 12.4 % (20.5-60.0); Mean Corpuscular HGB Conc 32.9 g/dL (29.9-35.2); Mean Corpuscular Hemoglobin 30.1 pg (25.9-34.0); Mean Corpuscular Volume 91.5 fL (80.0-94.0); Mean Platelet Volume 9.6 fL (9.5-13.5); Monocytes Absolute Auto 0.4 10^3/uL (0.3-0.8); Monocytes Percent Auto 6.3 % (1.7-12.0); Neutrophils Absolute Auto 4.3 10^3/uL (1.4-6.5); Platelet Count 173 10^3/uL (150-450); Red Blood Count 5.08 10^6/uL (4.70-6.10); White Blood Count 5.7 10^3/uL (4.0-11.0)
[2023-06-16 08:31] LABS: BOX Test Sent Out Y
[2023-06-16 09:33] LABS: Alanine Aminotransferase 17 U/L (16-63); Albumin Globulin Ratio 1.5; Albumin Level 3.8 g/dL (3.4-5.0); Alkaline Phosphatase 62 U/L (46-116); Anion Gap 12.2; Aspartate Amino Transferase 12 U/L (15-37); BUN Creatinine Ratio 18.4; Bilirubin Total 0.7 mg/dL (0.2-1.0); Calcium 9.1 mg/dL (8.5-10.1); Carbon Dioxide 27.8 mmol/L (21.0-32.0); Chloride 107 mmol/L (98-107); Estimated GFR (African America >60 (>=60); Estimated GFR (Non-African Ame 52 (>=60); Globulin 2.6 g/dL; Glucose 90 mg/dL (74-106); Sodium 143 mmol/L (136-145); Total Protein 6.4 g/dL (6.4-8.2)
== END 2023-06-16 07:56 | disposition home or self-care (01) ==
LOC: LAB 08:01
PROVIDERS: PCP Family Medicine
DX: K76.9 Liver disease, unspecified (principal); Z48.23 Encounter for aftercare following liver transplant; Z94.4 Liver transplant status; Z41.8 Encounter for other procedures for purposes other than remedying health state; E83.30 Disorder of phosphorus metabolism, unspecified; R73.02 Impaired glucose tolerance (oral)
CPT/HCPCS: 36415; 80053; 85025

== ENCOUNTER 2023-08-17 08:11 | Outpatient (OUT) | payer MEDICARE, SELFPAY ==
--- OUTSIDE RECORDS SUMMARY | 2023-08-17 08:16 | XMS_ITS | CCD ---
Author Name Unknown Address [address] [place] [address] Organization [facility] Care Team Providers Care [place] Clerk Name Role Phone SHEA BRANNON Unavailable Unavailable BUNTING, ELVIRA R Unavailable Unavailable Unavailable Unavailable Bunting Elvira VASQUEZ Primary Care Provider Yulisa Lewis RN Unavailable Unavailable BUNTING, ELVIRA R Primary Care Physician BuntingLloydElvira R Unavailable Bunting, DO Felix Primary Care Provider MD Shea Brannon Attending Provider Bunting Elvira [...] June, DR MIKE Cox Consulting Unavaila ble LONG June, DR MIKE Cox Attending Unavaila ble ALVES [...] Primary Care Unavailable LONG JR ., DR IMKE Cox Admitting Unavaila ble ALVES JR ., DR MIKE Cox Attending Unavaila ble WEST, DR SUSAN Ford Consulting Unavailable ALVES JR ., DR MIKE Cox Consulting Unavaila ble AGUBOSIM, COSME Consulting Unavailable KYMBERLY ÁLVAREZ Consulting Unavailable BUNTING, DR FELIX Primary Care [...] Sheila Magallanes Attending Provider Sheila Magallanes Unavailable Bunting, Dr. Elvira Maurer Primary Care Unavaila ble Bunting, Dr. Elvira Maurer Primary Care Unavaila ble Bunting, Dr. Elvira Maurer Primary Care Unavaila ble Traboulssi, Dr. Marvin Referring Unavaila ble Traboulssi, Dr. Marvin Attending Unavaila ble Bunting, Dr. Elvira Maurer Primary Care Unavaila ble Bunting, Dr. Elvira Maurer Primary Care Unavaila ble Bunting, DO Elvira Primary Care Provider MD Sugey Arteaga Attending Provider [phone] Bunting DOElvira Primary Care Provider SHEA BRANNON Attending Unavailable BUNTING, ELVIRA RAY Primary Care Unavailable Bunting, DO Elvira Primary Care Provider MD Branden Woodward Attending Provider Deanne Arteagahy MShaylee Attending Unavailable Lue, Sugey M. Attending Unavailable Lue, Sugey M. Attending Unavailable Lue, Sugey M. Referring Unavailable Lue Sugey M. Attending Unavailable Lue, Sugey MShaylee Attending Unavailable Lue, Sugey MShaylee Attending Unavailable Lue, Sugey M. Admitting Unavailable Lue, Sugey M. Referring Unavailable Kevin DE LA GARZA Attending Unavailable Bunting, Elvira Primary Care Unavailable Branden Woodward Admitting Unavail able Branden Woodward Attending Unavail able Bunting, Elvira Primary Care Unavailable Asaad, Imad Admitting Unavailable Asaad, Imad Attending Unavailable Lue, Sugey M Attending Unavailable Bunting, Elvria Primary Care Unavailable Lue, Sugey M Admitting Unavailable Asaad, Imad Admitting Unavailable Asaad, Imad Attending Unavailable Bunting, Elvira Primary Care Unavailable Bunting, Elvira Primary Care Unavailable Asaad, Imad Admitting Unavailable Asaad, Imad Attending Unavailable Bunting, Elvira Primary Care Unavailable Branden Woodward Admitting Unavail able Branden Woodward Attending Unavail able Bunting, Elvira Primary Care Unavailable Branden Woodward Admitting Unavail able Branden Woodward Attending Unavail able Lue, Sugey M Admitting Unavailable Lue, Sugey M Attending Unavailable Bunting, Elvira Primary Care Unavailable Allergies Allergy Classification Reported Allergen(s) Allergy Type Date of Onset Reaction(s) Facility (1 source) No Known Medication Allergies; Translations: [No Known Medication Allergies] Propensity to adverse reactions (disorder) [facility] Repository Medications Current Medications Medication Drug Class(es) Dates Sig (Normalized) Sig (Original) amylase 393747 unt / lipase 45917 unt / protease 36611 unt delayed release oral capsule (3 sources) Start: 11-12-2022 Creon 64386-68480 UNIT as directed Orally 5 TIMES DAILY (ALLOW FOR 3 MEALS AND 2 SNACKS. for 30 days October, Active ascorbic acid 1000 mg oral tablet (6 sources) Vitamin C Start: 12-11-2022 take 1 g by mouth once daily Ascorbic Acid (Vitamin C) (Vitamin C) 1,000 mg Tablet Active 1 GM PO Daily December 10, 2022 11:00pm aspirin 81 mg delayed release oral tablet (13 sources) Platelet Aggregation Inhibitor, Nonsteroidal Anti-inflammatory Drug [...] mouth once daily. 0 Active Elderberry preparation (2 sources) Start: 3 take 1 mg by mouth once daily elderberry mg, Oral, Daily, Refill(s) 0 Start Date: 05/27/23 Status: Ordered finasteride 5 mg oral tablet (3 sources) 5-alpha Reductase Inhibitor Start: 3 take 1 tablet by mouth once daily finasteride 5 mg Tab 5 mg = 1 tab(s), Oral, Daily, # 30 tab(s), Refills(s) 11, Pharmacy: [facility]/pharmacy #[id number], 178, cm, 05/27/23 9:52:00 EST, Height/Length Dosing, 80, kg, 05/27/23 9:52:00 EST, Weight Dosing Start Date: 05/27/23 Status: Ordered Start: 02-25-2023 take 1 tablet by elsy th once daily finasteride 5 mg Tab 5 mg = 1 tab(s), Oral, Daily, # 30 tab(s), Refills(s) 11, Pharmacy: [facility]/pharmacy #[id number], 178, cm, 02/25/23 9:11:00 EDT, Height/Length Dosing, 80, kg, 02/25/23 9:11:00 EDT, Weight Dosing Start Date: 02/25/23 Status: Ordered metoprolol tartrate 25 mg oral tablet (20 sources) beta-Adrenergic Sebas Start: 03-24-2017 End: 04-13-2018 take 25 mg by mouth once daily Metoprolol Tartrate Discontinued 25 MG PO Daily March 23, 2017 11:00pm April 13, 2018 3:18pm Start: 02-07-2015 End: 05-10-2019 take 1 tablet by mouth twice daily Metoprolol tartrate 25 mg Tab 25 mg = 1 tab(s), Oral, BID, # 30 tab(s), Refills(s) 0 Start Date: 04/19/19 Status: Ordered take 1 tablet by elsy th twice daily Metoprolol Succinate ER 25 MG 1 tablet Orally TWICE A D AY Active Comment on above: Take 1 tablet by elsy th twice daily. [facility] (8 sources) Start: 9 [facility] Septra 1 tablet by mouth MWF Start Date: 04/19/19 Status: Ordered omeprazole 40 mg delayed release oral capsule (3 sources) Proton Pump Inhibitor Start: 3 take 40 mg by mouth once daily Omeprazole Active 40 MG PO Daily December 10, 2022 11:00pm Oxybutinin XL 5mg (4 sources) Oxybutinin XL 5m g Active oxybutynin chloride 5 mg oral tablet (13 sources) Cholinergic Muscarinic Antagonist Start: 3 take 1 tablet by mouth at bedtime oxybutynin 5 mg Tab 5 mg = 1 tab(s), Oral, Bedtime, # 30 tab(s), Refills(s) 11, Pharmacy: [facility]/pharmacy #[id number], 178, cm, 02/25/23 9:11:00 EDT, Height/Length Dosing, 80, kg, 02/25/23 9:11:00 EDT, Weight Dosing Start Date: 02/25/23 Status: Ordered Start: 02-26-2022 take 1 tablet by elsy th at bedtime oxybutynin 5 mg Tab 5 mg = 1 tab(s), Oral, Bedtime, # 30 tab(s), Refills(s) 11, Pharmacy: [facility]/pharmacy #[id number], 185, cm, 02/26/22 15:00:00 EDT, Height/Length [...] 0 Refills: 0 Ordered: 27-Mar-2022 DO Active Sulfamethoxazole (1 source) Sulfonamide Antimicrobial Start: 08-13-2023 sulfamethoxazole Refills(s) 0 Start Date: 08/13/23 Status: Ordered Sulfamethoxazole-TMP DS (4 sources) Sulfamethoxazole -TM P DS Active tadalafil 5 mg oral tablet (2 sources) Phosphodiesterase 5 Inhibitor Start: 09-10-2022 take 1 tablet by mouth once daily tadalafil 5 mg oral tablet 5 mg = 1 tab(s), Oral, Daily, # 30 tab(s), Refills(s) 11, Pharmacy: [facility]/pharmacy #[id number], 185, cm, 09/10/22 9:37:00 EDT, Height/Length Dosing, 99, kg, 09/10/22 9:37:00 EDT, Weight Dosing Start Date: 09/10/22 Status: Ordered tamsulosin hydrochloride 0.4 mg oral capsule (1 source) alpha-Adrenergic Sebas take 1 capsule by mouth twice daily tamsulosin (Flomax) 0.4 mg 24 hr capsule Take 1 capsule (0.4 mg) by mouth 2 times a day. 0 Active terazosin 5 mg oral capsule (11 sources) alpha-Adrenergic Sebas Start: 06-21-2021 terazosin 5 mg Cap Refills(s) 0 Start Date: 02/25/23 Status: Ordered Terazosin HCl Ac tive Vitamin D3 (2 sources) Start: 05-27-2023 Vitamin D3 Ref ills(s) 0 Start Date: 05/27/23 Status: Ordered Vitamin D3 25 MCG (1000 UT) (1 source) take 1 capsule by mouth once daily Vitamin D3 25 MCG (1000 UT) 1 capsule Orally Once a day Active Zenpep 47594 UNIT (1 source) Start: 01-01-2023 Zenpep 81802 U NIT 1 WITH EACH MEAL & 1 WITH UP TO 2 SNACKS Orally 5 TIMES A DAY for 30 days Dec, Active Zinc (4 sources) Start: 05-27-2023 take 1 mg by [...] Calcium Channel Sebas Start: 02-18-2017 End: 12-11-2022 take 1 tablet by mouth once daily amLODIPine (NORVASC) 5 mg tablet Take 1 tablet by mouth once daily. 0 02/18/2017 Active Comment on above: Take 1 tablet by elsy th once daily. Black Elderberry(Garcia-Flow er) CAPS (3 sources) Black Elderberry(Garcia- Flower) CAPS 2000 mg daily Quantity: 0 Refills: 0 Ordered: 27-Mar-2022 DO Active polyethylene glycol 3350 379691 mg / potassium chloride 2970 mg / sodium bicarbonate 6740 mg / sodium chloride 5860 mg / sodium sulfate 71362 mg powder for oral solution (4 sources) Osmotic Laxative Start: 11-05-2022 take 236 g by mouth once Golytely 236 GM as directed Orally once for 1 days October, Not-Taking sulfamethoxazole 800 mg / trimethoprim 160 mg oral tablet (14 sources) Dihydrofolate Reductase Inhibitor Antibacterial, Sulfonamide Antimicrobial [...] OUTH DAILY ON MONDAYS, WEDNESDAYS AND FRIDAYS Sulfamethoxazole-TMP DS TABS (3 sources) Sulfamethoxazole -TMP DS TABS TAKE 1 TABLET DAILY ON THURSDAY, THURSDAY, AND THURSDAY. Quantity: 0 Refills: 0 Ordered: 27-Mar-2022 DO Active tacrolimus 1 mg oral capsule (20 sources) Calcineurin Inhibitor Immunosuppressant Start: 11-05-2022 tacrolimus IR (PROGRAF) 1 mg capsule Indications: Need for prophylactic immunotherapy , Transplanted liver (HCC) TAKE 2 CAPSUES BY MOUTH TWICE DAILY 360 capsule 3 11/05/2022 Active Start: 03-24-2017 End: 11-08-2021 take 1 mg by mouth twice daily tacrolimus 1 mg, Oral, BID, Refills(s) 0 Start Date: 04/18/19 Status: Ordered Start: 03-24-2017 End: 04-13-2018 Tacrolimus Discontinued Oct2017 11:00pm April 13, 2018 7:46pm Comment on above: Take 2 capsules by m out twice daily. (Z94.4 - liver transplant) TAKE 2 CAPSUES BY MO UT TWICE DAILY Trimethoprim-Sulf amethoxazole (5 sources) Start: 03-24-2017 End: 04-13-2018 take 1 tablet by mouth three times weekly Trimethoprim-Sulfamet hoxazole Discontinued 1 TAB PO 3 Times a week March 24, 2017 12:00am April 13, 2018 8:46pm Start: 03-24-2017 End: 04-13-2018 take 1 tablet by mouth three times weekly Trimethoprim-Sulfamethoxazole Discontinu ed 1 TAB PO 3 Times a week March 23, 2017 11:00pm April 13, 2018 7:46pm Problems Active Problems Problem Classification Problem Date Documented Da te Episodic/Chronic Biliary tract disease (6 sources) Leakage of bile; Translations: [Disease of biliary tract, unspecified] Onset: 02-07-2015 06-10-2021 Chronic Cancer of prostate (10 sources) Carcinoma in situ of prostate; Translations: [...] Onset: 10-23-2022 Episodic Disorders of lipid metabolism (18 sources) Hyperlipidemia; Translations: [Other and unspecified hyperlipidemia] Onset: 01-27-2022 12-21-2018 Chronic Essential hypertension (16 sources) Essential (primary) hypertension; Translations: [Essential hypertension] Onset: 03-26-2017 04-14-2018 Chronic Essential hypertension (2 sources) Essential hypertension Onset: 03-26-2017 Genitourinary symptoms and ill-defined conditions (20 sources) Microscopic hematuria; Translations: [Nocturia] Onset: 01-27-2022 12-21-2018 Episodic Hepatitis (12 sources) Viral hepatitis C; Translations: [Unspecified viral hepatitis C without hepatic coma] 12-21-2018 Episodic Hyperplasia of prostate (17 sources) Benign prostatic hypertrophy with outflow obstruction; [...] LIVER TRANSPLANT] Onset: 10-23-2022 Chronic Other aftercare (8 sources) Long-term current use of anticoagulant 11-24-2019 Episodic Other aftercare (1 source) [facility] (current) use of aspirin; Translations: [FCI CURRENT USE OF ASPIRIN] Onset: 09-29-2022 Episodic Other aftercare (1 source) 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; Translations: [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 DRUG THERAPY] Onset: 09-29-2022 Episodic Other [...] (chronic) (peripheral)] 04-14-2018 Episodic Other endocrine disorders (8 sources) Male hypogonadism 12-21-2018 Chronic Other gastrointestinal [...] Onset: 10-23-2022 Chronic Other male genital disorders (11 sources) Male erectile dysfunction, unspecified; Translations: [Erectile dysfunction] Onset: 09-10-2022 Chronic Other male genital disorders (8 sources) Prostatic pain 11-24-2019 Episodic Other nutritional; [...] index (BMI) 26.0-26.9, adult] Onset: 04-09-2023 Episodic Residual codes; unclassified (1 source) Encounter for other procedures for purposes other than remedying health state; Translations: [ENC OTH PROC NOT REMEDY HLTH STATE] Onset: 10-23-2022 Episodic Screening and history of mental health and substance abuse codes (12 sources) Ex-smoker; Translations: [Personal history of tobacco [...] transplant status / Z94.4(ICD-9) Onset: 03-26-2017 Unclassified (6 sources) SUMMARY Onset: 08-14-2012 Unclassified (6 sources) Finding of sensation of bladder 09-10-2022 Unclassified (1 source) CONTACT W/AND (SUSP) EXPOS COVID-19; Translations: [CONTACT W/AND (SUSP) EXPOS COVID-19] Onset: 01-22-2022 Unclassified (1 source) Diarrhea, unspecified; Translations: [Diarrhea, unspecified] Onset: 12-11-2022 Unclassified (1 source) Encounter for checking and testing of cardiac pacemaker pulse generator [battery]; Translations: [Encounter for checking and testing of cardiac pacemaker pulse generator [battery]] Onset: 10-31-2022 Urinary tract infections (1 source) Urinary tract infection, site not specified; Translations: [UTI SITE NOT SPECIFIED] Onset: 09-29-2022 Episodic Past or Other Problems Problem Classification Problem Date Documented Da te Episodic/Chronic Abdominal hernia (6 sources) Inguinal hernia; Translations: [Unilateral inguinal hernia, without obstruction or gangrene, not specified as recurrent] Onset: 02-02-2008 02-02-2008 Episodic Cancer of liver and intrahepatic bile duct (6 sources) History of hepatocellular carcinoma; Translations: [Personal history of malignant neoplasm of liver] Onset: 02-18-2017 02-18-2017 Episodic Complication of device; implant or graft (6 sources) Biliary stricture; Translations: [Other complications of liver transplant] Onset: 02-07-2015 02-07-2015 Episodic Neoplasms of unspecified nature or uncertain behavior (6 sources) Neoplasm of pancreas; Translations: [Neoplasm of unspecified behavior of digestive system] Onset: 11-10-2012 11-10-2012 Episodic Other aftercare (1 source) [facility] (current) use of anticoagulants; Translations: [LABEL PASTER CURRNT USE ANTICOAGULANTS] Onset: 01-27-2022 Episodic Other and unspecified benign neoplasm (10 sources) History of polyp of colon; Translations: [Personal history of colonic polyps] Onset: 02-18-2017 02-18-2017 Episodic Other gastrointestinal disorders (2 sources) Change in bowel habit; Translations: [Change in bowel habit] Onset: 11-06-2022 Episodic Other gastrointestinal disorders (1 source) Dysphagia, unspecified; Translations: [Dysphagia, unspecified] Onset: 12-11-2022 Episodic Other infections; including parasitic (6 sources) History of hepatitis C; Translations: [Personal history of other infectious and parasitic diseases] Onset: 02-18-2017 02-18-2017 Episodic Other screening for suspected conditions (not mental disorders or infectious disease) (20 sources) Raised prostate specific antigen; Translations: [Elevated prostate specific antigen [PSA]] Onset: 12-24-2021 Episodic Residual codes; unclassified (7 sources) Prevention status; Translations: [Encounter for other specified prophylactic measures] Onset: 02-07-2015 02-07-2015 Episodic Syncope (6 sources) Cardiac syncope; Translations: [Syncope and collapse] Onset: 11-11-2022 04-14-2018 Episodic Unclassified (1 source) Onset: 04-10-2023 04-10-2023 Results Test Name Value Interpretation Reference Range Facility [facility] 07-27-2023 [facility] Telephone (TXCTMN) SUSAN SHERMAN ([id number]) 1950 Date Time Provider Department 07/27/23 YULISA LEWIS TXCTMN During your visit today, we recorded the following information about you: Yulisa LewisTEENA 07/27/2023 4:02 PM Signed Tacrolimus PA submitted via [employer] website. [place]: [id number] Awaiting coverage determination. Yulisa Lewis RN, BSN, [facility] Liver Equity Research Associate Yulisa Lewis RN 07/28/2023 1:58 PM Signed PA denied, pharmacy was billing incorrectly. Medicare paid for OLT and tacrolimus should be billed under part B. Pharmacy billing incorrectly. Yulisa Lewis RN, BSN, [facility] Liver Equity Research Associate Allergies As of Date: 07/27/2023 (No Known Allergies) Date Reviewed: 04/16/2020 Reviewed by: Latisha Hernandez (Rn), RN - Fully Assessed Reason for Visit: Insurance Authorization [[id number]] Cmt: Tacrolimus Prescriptions as of 07/28/2023 - tacrolimus IR (PROGRAF) 1 mg capsule [...] LPN 02/11/2012 Problem List As Of Date 07/27/2023 Noted Resolved Bacteremia [R78.81] 01/06/2007 02/18/2017 Other streptococcus infection in conditions cla*01/06/2007 02/18/2017 Cirrhosis of liver without mention of alcohol [*10/18/2007 02/18/2017 UNILAT INGUINAL HERNIA [K40.90] 02/02/2008 SUMMARY [V999.95] 08/14/2012 Hepatic encephalopathy (HCC) [K76.82] 08/14/2012 02/18/2017 DVT prophylaxis [TNX0391] 08/14/2012 02/18/2017 Mechanically assisted ventilation [Z99.11] 08/14/2012 02/18/2017 Leucocytosis [D72.829] 08/18/2012 02/18/2017 Hyponatremia [E87.1] 08/18/2012 02/18/2017 Ascites [R18.8] 11/10/2012 02/18/2017 Pancreatic neoplasm [D49.0] 11/10/2012 Portal hypertension (HCC) [K76.6] 11/10/2012 02/18/2017 Hepatitis C [B19.20] 05/03/2013 02/18/2017 Hepatocellular carcinoma (HCC) [C22.0] 12/21/2014 02/18/2017 Liver transplanted (HCC) [Z94.4] 01/19/2015 Need for prophylactic immunotherapy [Z29.89] 02/07/2015 SB (acute kidney injury) (HCC) [N17.9] 02/07/2015 02/18/2017 Bile leak [K83.9] 02/07/2015 Biliary stricture of transplanted liver (HCC) [*02/07/2015 History of hepatitis C [Z86.19] 02/18/2017 History of hepatocellular carcinoma [Z85.05] 02/18/2017 History of colonic polyps [Z86.010] 02/18/2017 Encounter Status:Closed by YULISA LEWIS on 07/28/23 Normal [facility] Tacrolimus Bld-ncon 2023 Tacrolimus (Bld) [Mass/Vol] 6.2 ng/mL Normal 5.0-20.0 [facility] Comment on above: Order Comment: Speci men [...] i. Performed By: #### 1 1253-2 #### [facility] CLIA [id number] [address] [place], [place] [id number] [place] Screenson 05-29-2023 Screens [id number]#1.0 0TIFF Normal [facility] Screens [id number]#1.0 0TIFF Normal [facility] Ambulatory Visit Summaryon 1 07-28-2022 Ambulatory Visit Summary SUSAN SHERMAN :1950 Visit Date:05/27/2023 Ambulatory Visit Instructions Your Diagnosis BPH with urinary obstruction Elevated PSA Feeling of incomplete bladder emptying ED (erectile dysfunction) Other obstructive and reflux uropathy Tests Performed Urnls Dip Stick Auto w/o Microscopy POC 75319 Your Care Team Attending Physician - Sugey [...] Follow Up with Chandler CHAVEZ, Sugey Cummins, URL, URO When: In 9 months Comments: w/PSA [...] Urnls Dip Stick Auto w/o Microscopy POC 05349 (05/27/2023) Bilirubin Urine Dipstick - Negative Blood Urine Dipstick - Negative Glucose Urine Dipstick - Negative Ketones Urine Dipstick - Negative Leukocytes Urine Dipstick - Trace Nitrite Urine Dipstick - Negative Protein Urine Dipstick - Negative Specific [place] Urine Dipstick - 1.025 Urine Appearance Urine [...] older than (more content not included)... Normal [facility] Patient Educationon 05-27-20 Patient Education Urology Benign Prostatic Hyperplasia Benign [...] Follow these instructions at home: ? Take [id number] and prescription medicines only as told by [...] the medicine (more content not included)... Normal [facility] Urology Office/Clinic Noteon 05-27-2023 Urology [...] TRUS prostate Bx: 03/2017, 05/2018 - HGPIN /12 cores L base, 10/2019, 01/22/2022 (vol 84-92 [...] the patient (more content not included)... Normal [facility] Comment on above: Result Comment: Elec tronically Signed By: Chandler CHAVEZ, Sugey Cummins\.br\Date and Time Signed: 05/27/23 12:15 EST\.br\Electronically Co-Signed By: Marizol Francis.br\Date and Time Co-Signed: 05/27/23 10:37 EST Tacrolimus Bld-Vanita 2022 Tacrolimus (Bld) [Mass/Vol] 6.1 ng/mL Normal 5.0-20.0 [facility] Comment on above: Order Comment: Speci men [...] situation. Test performed by chemiluminescent immunoassay using Sonos Alinity i. Performed By: #### 1 1253-2 #### [facility] CLIA [id number] [address] [place] [address] [place] Ambulatory Visit Summaryon 0 02-25-2023 Ambulatory Visit Summary SUSAN SHERMAN :1950 Visit Date:02/25/2023 Ambulatory Visit Instructions Your Diagnosis BPH with urinary obstruction Elevated PSA Feeling of incomplete bladder emptying ED (erectile dysfunction) Tests Performed Urnls Dip Stick Auto w/o Microscopy POC 96154 Your Care Team Attending Physician - Sugey [...] Follow Up with Chandler CHAVEZ, Sugey Cummins, URL, URO When: In 3 months Where: Medications [...] Urnls Dip Stick Auto w/o Microscopy POC 89982 (02/25/2023) Bilirubin Urine Dipstick - Negative Blood Urine Dipstick - Negative Glucose Urine Dipstick - Negative Ketones Urine Dipstick - Trace - 5 mg/dl Leukocytes Urine Dipstick - Negative Nitrite Urine Dipstick - Negative Protein Urine Dipstick - Negative Specific [place] Urine Dipstick - 1.025 Urine Appearance Urine [...] prostate cance (more content not included)... Normal [facility] Patient Educationon 02-26-20 Patient Education [...] Where to find more information ? The [employer]: www.cancer.org ? [employer]: www.auanet.org Contact a health care [...] adds flu (more content not included)... Normal [facility] Screenson 02-25-2023 Screens [id number]#1. 00CD:127 Normal [facility] Screens [id number]#1. 00CD:127 Normal [facility] Urology Office/Clinic Noteon 02-25-2023 Urology Office/Clinic Note [...] educating the (more content not included)... Normal [facility] Comment on above: Result Comment: Elec tronically Signed By: Chandler CHAVEZ, Sugey Cummins\.br\Date and Time Signed: 02/25/23 10:46 EDT\.br\Electronically Co-Signed By: Marizol Francis\.br\Date and Time Co-Signed: 02/25/23 09:49 EDT\.br\Electronically Co-Signed By: Marizol Francis\.br\Date and Time Co-Signed: 02/25/23 09:50 EDT CNCOon 02-23-2023 [facility]CO Letter Text Normal [facility] CNPNon 02-23-2023 CNPN Telephone (TXCTMN) SUSAN SHERMAN ([id number]) 1950 M Date Time Provider Department 02/23/23 [...] Copy of updated lab letter sent to [facility] and also faxed to local lab [phone]. Pt verbalized understanding, no further questions at this time. Yulisa Lewis RN, BSN, [facility] Liver Equity Research Associate Allergies As of Date: 02/23/2023 (No Known Allergies) Date Reviewed: 04/16/2020 Reviewed by: Latisha Hernandez (Rn), RN - Fully Assessed Reason for Visit: Patient Update [6414] Orders [681] Cmt: New standing lab order [...] As per patient medications are current. Leny Leslie REYES 02/11/2012 Problem List As Of Date 02/23/2023 [...] Status:Closed by YULISA LEWIS on 02/23/23 Normal [facility] Lab Reportson 02-20-2023 Lab Reports [id number]#1.0 0CD:127 Normal [facility] Tacrolimus Bld-mCncon 2022 Tacrolimus (Bld) [Mass/Vol] 6.5 ng/mL Normal 5.0-20.0 [facility] Comment on above: Order Comment: Allegra donis Type: BLOOD SPECIMEN Ordering Facility: [facility] [...] i. Performed By: #### 1 1253-2 #### [facility] CLIA [id number] [address] [place] [address] [place] Tacrolimus Bld-ncon 2022 Tacrolimus (Bld) [Mass/Vol] 7.0 ng/mL Normal 5.0-20.0 [facility] Comment on above: Order Comment: Allegra donis Type: BLOOD SPECIMEN Ordering Facility: [facility] Trans[facility] [...] i. Performed By: #### 1 1253-2 #### [facility] CLIA [id number] [address] [place] [address] [place] SANTA Ricky 12-11-2022 L -- ---- Specimen: [id number] Received: 12/11/22 Status: JENIFER Pineda Num: [id number] Spec Type: Surgical Subm Dr: Sheila Magallanes MD Tissues: A Gastric Biopsy (GASTRIC BX) B Colon Biopsy (COLONIC BX) C Colon Biopsy (DESCENDING POLYP) D Colon Biopsy (SIGMOID POLYPS) Procedures: MATT/Kesha Simmons/Micro L4/4 ---- Age/ Patient Sex Location Account Attending Physician ---- Susan Sherman/Simon [id number] Sheila Magallanes MD ---- SPEC NUM: [id number] RECD: 12/11/22 STATUS: JENIFER FLORES NUM: [id number] ML: 12/11/22- DR: Sheila Magallanes MD ENTERED: 12/11/22 [facility] DR: SPEC TYPE: Surgical DEPT: S ORDERED: HE/8, Gross/Micro [...] pylori, rule out microscopic colitis ---- Specimen: [id number] Received: 12/11/22 Status: JENIFER Pineda Num: [id number] Spec Type: Surgical Subm Dr: Sheila Magallanes MD Tissues: A Gastric Biopsy (GASTRIC BX) B Colon Biopsy (COLONIC BX) C Colon Biopsy (DESCENDING POLYP) D Colon Biopsy (SIGMOID POLYPS) Procedures: HE/8, Gross/Micro L4/4 ---- Patient: Susan Sherman [id number] (Continued) ---- Specimen: [id number] Received: 12/11/22 (Continued) Signed (signature on file) Melissa Briones MD 12/12/22 1002 ---- Specimen: [id number] Received: 12/11/22 Status: JENIFER Pineda Num: [id number] Spec Type: Surgical Subm Dr: Sheila Magallanes MD Tissues: A Gastric Biopsy (GASTRIC BX) B Colon Biopsy (COLONIC BX) C Colon Biopsy (DESCENDING POLYP) D Colon Biopsy (SIGMOID POLYPS) Procedures: Kesha PRASAD/Carolyne L4/4 ---- Patient: Susan Sherman [id number] (Continued) ---- Specimen: [id number] Received: 12/11/22-1346 (Continued) Gross Description A. Received in formalin [...] microscopic examination confirms the diagnosis. CPT Codes 38052 x 4 ---- ---- Specimen: [id number] Received: 12/11/22 Status: JENIFER Pineda Num: [id number] Spec Type: Surgical Subm Dr: Sheila Magallanes MD Tissues: A Gastric Biopsy (GASTRIC BX) B Colon Biopsy (COLONIC BX) C Colon Biopsy (DESCENDING POLYP) D Co (more content not included)... Normal [facility] RAD - MRI Reporton 3 RAD - MRI Report [id number] Normal [facility] Creatinine (Bld) [Mass/Vol]O rdered By: Sugey Arteaga on 11-11-2022 Creatinine [Mass/Vol] 1.5 mg/dL 0.6-1.3 [facility] Comment on above: ER/ESD physician is notified/shown all ISTAT results.Critical values may be confirmed by laboratory testing ifdeemed necessary by ER attending doctor. MR prostate wo/w conon 11-11 MR prostate wo/w con [facility] Main [place] [address] [place] [address] MRI Report Signed Patient: Susan Sherman MR#: [id number] : 1950 Acct:[id number] Age/Sex: 72 / M ADM Date: 11/11/22 Loc: Room: Type: [facility] Attending Dr: Sugey Arteaga MD Copies to: [...] malignancy. Impression dictated by: William Platt Jr., RubiOShaylee11/11/2022 12:29 PM Dictation Location: [facility] Transcribed By: [facility] 11/11/22 1229 Dictated By: William Platt Jr, DO 11/11/22 1215 Signed By: 11/11/22 1229 Normal [facility] C reactive protein [Mass/vol ume] in Serum or PlasmaOrdered By: Sheila Magallanes on 11-06-2022 CRP [Mass/Vol] < 0.5 mg/dL 0.0-0.5 [facility] C-Reactive Proteinon 023 CRP [Mass/Vol] mg/L Normal 0.0-0.5 [facility] Comment on above: Order Comment: Reaso n for Exam Change in bowel habits Performed By: #### C ALPROTECT, STOOL NA, OPEXAM, ELASTASE STOOL, CELIAC #### [facility] , #### ESR, CDT, CRP, CUSTOOL, TSH3 #### [address] Calprotectin [Mass/mass] in StoolOrdered By: Sheila Magallanes on 11-06-2022 Calprotectin (Stl) [Mass/Mass] 31 ug/g 0-120 [facility] Comment on above: Concentration Interp retation Follow-Up< 5 - 50 ug/g Normal None>50 -120 ug/g Borderline Re-evaluate in 4-6 weeks >120 ug/g Abnormal Repeat as clinically indicatedPerformed at: - [facility] [address] [id number] Director: Slim Lewis MD, Phone: [phone] Calprotectin, Fecalon 2022 Calprotectin, Fecal 31 Normal 0-120 [facility] Comment on above: Order Comment: Reaso n for Exam Change in bowel habits Result Comment: Conc entration Interpretation Follow-Up < 5 - 50 ug/g Normal None >50 -120 ug/g Borderline Re-evaluate in 4-6 weeks >120 ug/g Abnormal Repeat as clinically indicated Performed at: - [facility] [address] [id number] Employee Benefits Administrator: Slim Lewis MD, Phone: [phone] PERFORMED BY: [place] [address] PATHOLOGIST CORPORATE ACCOUNT EXECUTIVE JOSE GUARDADO M.D. Performed By: #### C ALPROTECT, STOOL NA, OPEXAM, ELASTASE STOOL, CELIAC #### [facility] , #### ESR, CDT, CRP, CUSTOOL, TSH3 #### [facility] [address] [place] [address] Celiacon 11-06-2022 Deamidated Gliadin Abs, IgA 5 Normal 0-19 [facility] Comment on above: Order Comment: Reaso n for Exam Change in bowel habits Result Comment: Nega tive 0 - 19 Weak Positive 20 - 30 Moderate to Strong Positive >30 Performed By: #### C ALPROTECT, STOOL NA, OPEXAM, ELASTASE STOOL, CELIAC #### [facility] , #### ESR, CDT, CRP, CUSTOOL, TSH3 #### [facility] [address] [place] [address] Deamidated Gliadin Abs, IgG 4 Normal 0-19 [facility] Comment on above: Order Comment: Reaso n for Exam Change in bowel habits Result Comment: Nega tive 0 - 19 Weak Positive 20 - 30 Moderate to Strong Positive >30 Performed By: #### C ALPROTECT, STOOL NA, OPEXAM, ELASTASE STOOL, CELIAC #### [facility] , #### ESR, CDT, CRP, CUSTOOL, TSH3 #### [facility] [address] [place] [address] Endomysial Antibody IgA Negative Normal Negative [facility] Comment on above: Order Comment: Reaso n for Exam Change in bowel habits Performed By: #### C ALPROTECT, STOOL NA, OPEXAM, ELASTASE STOOL, CELIAC #### [facility] , #### ESR, CDT, CRP, CUSTOOL, TSH3 #### [facility] [address] [place] [address] [place] Immunoglobulin A, Qn, Serum 23 mg/dL Low 61-437 [facility] Comment on above: Order Comment: Reaso n for Exam Change in bowel habits Result Comment: Resu lt confirmed on concentration. Performed at: - [facility] [id number] Employee Benefits Administrator: Jorge Lockwood PhD, Phone: [phone] PERFORMED BY: [place] [address] PATHOLOGIST CORPORATE ACCOUNT EXECUTIVE JOSE GUARDADO M.D. Performed By: #### C ALPROTECT, STOOL NA, OPEXAM, ELASTASE STOOL, CELIAC #### [facility] , #### ESR, CDT, CRP, CUSTOOL, TSH3 #### [facility] [address] [place] [address] T-Transglutaminase (tTG) IgA <2 Normal 0-3 [facility] Comment on above: Order Comment: Reaso n for Exam Change in bowel habits Result Comment: Nega tive 0 - 3 Weak Positive 4 - 10 Positive >10 Tissue Transglutaminase (tTG) has been identified as the endomysial antigen. Studies have demonstr- ated that endomysial IgA antibodies have over 99% specificity for gluten sensitive enteropathy. Performed By: #### C ALPROTECT, STOOL NA, OPEXAM, ELASTASE STOOL, CELIAC #### [facility] , #### ESR, CDT, CRP, CUSTOOL, TSH3 #### [facility] [address] [place] [address] T-Transglutaminase (tTG) IgG <2 Normal 0-5 [facility] Comment on above: Order Comment: Reaso n for Exam Change in bowel habits Result Comment: Nega tive 0 - 5 Weak Positive 6 - 9 Positive >9 Performed By: #### C ALPROTECT, STOOL NA, OPEXAM, ELASTASE STOOL, CELIAC #### [facility] , #### ESR, CDT, CRP, CUSTOOL, TSH3 #### [facility] [address] [place] [address] Clostridioides difficile tox in B tcdB gene [Presence] in Stool by LUZ MARIA with probe deteOrdered By: Sheila Magallanes on 11-06-2022 C. difficile toxin B tcdB gene LUZ MARIA+probe Ql (Stl) Negative Negative [facility] Comment on above: Testing performed by RT-PCR Clostridium Difficileon 10-14 Clostridium Difficile Negative Normal Negative [facility] Comment on above: Order Comment: Reaso n for Exam Change in bowel habits Result Comment: Test ing performed by RT-PCR PERFORMED BY: [place] [address] PATHOLOGIST CORPORATE ACCOUNT EXECUTIVE JOSE GUARDADO M.D. Performed By: #### C ALPROTECT, STOOL NA, OPEXAM, ELASTASE STOOL, CELIAC #### [facility] , #### ESR, CDT, CRP, CUSTOOL, TSH3 #### [facility] [address] [place] [address] Elastase.pancreatic [Mass/ma ss] in StoolOrdered By: Sheila Magallanes on 11-06-2022 Elastase.pancreatic (Stl) [Mass/Mass] 132 >200 [facility] Comment on above: Result Units: ug [address] st./g Severe Pancreatic Insufficiency: <100 Moderate Pancreatic Insufficiency: 100 - 200 Normal: >200Performed at: - [facility] [address] [id number] Director: Slim Lewis MD, Phone: [phone] Erythrocyte Sedimentation Ra trevon 11-06-2022 ESR (Bld) [Velocity] mm/h Normal 0-19 [facility] Comment on above: Order Comment: Reaso n for Exam Change in bowel habits Result Comment: PERF ORMED BY: [place] [address] PATHOLOGIST CORPORATE ACCOUNT EXECUTIVE JOSE GUARDADO M.D. Performed By: #### C ALPROTECT, STOOL NA, OPEXAM, ELASTASE STOOL, CELIAC #### [facility] , #### ESR, CDT, CRP, CUSTOOL, TSH3 #### [address] Erythrocyte sedimentation ra te by Photometric methodOrdered By: Imyung Magallanes on 11-06-2022 ESR Photometric method (Bld) [Velocity] < 1 mm/hr 0-19 [facility] IgA [Mass/volume] in Serum o r PlasmaOrdered By: Imad Asaad on 11-06-2022 IgA [Mass/Vol] 23 mg/dL 61-437 [facility] Comment on above: Result confirmed on concentration.Performed at: [facility] [place], [place] [id number] Director: Jorge Lockwood PhD, Phone: [phone] No Panel InformationOrdered By: Imyung Calderonad on 11-06-2022 Endomysial IgA Antibody Negative Negative [facility] Ova and Parasite Result 1 [facility] OVA AND PARASITEon 3 OVA AND PARASITE [...] possibility of a parasitic infection. Performed at: [facility] [address] [place], [place] [id number] Employee Benefits Administrator: Jorge Lockwood PhD, Phone: [phone] PERFORMED BY: [place] [address] PATHOLOGIST CORPORATE ACCOUNT EXECUTIVE JOSE GUARDADO M.D. [facility] Comment on above: Performed By: #### C ALPROTECT, STOOL NA, OPEXAM, ELASTASE STOOL, CELIAC #### [facility] , #### ESR, CDT, CRP, CUSTOOL, TSH3 #### [facility] [address] Ova or parasites identificat ionOrdered By: Sheila Magallanes on 11-06-2022 Ova and parasites identified LM Nom (Unsp spec) [facility] Pancreatic Elastase, Stoolon 11-06-2022 Pancreatic Elastase, Stool 132 Low >200 [facility] Comment on above: Order Comment: Reaso n for Exam Change in bowel habits Result Comment: Resu lt Units: ug Elast./g Severe Pancreatic Insufficiency: <100 Moderate Pancreatic Insufficiency: 100 - 200 Normal: >200 Performed at: [address] [id number] Employee Benefits Administrator: Slim Lewis MD, Phone: [phone] Performed By: #### C ALPROTECT, STOOL NA, OPEXAM, ELASTASE STOOL, CELIAC #### [facility] , #### ESR, CDT, CRP, CUSTOOL, TSH3 #### [facility] [address] Serum gliadin peptide IgA an tibody assay (units/volume)Ordered By: Sheila Magallanes on 11-06-2022 Gliadin peptide IgA Qn (S) 5 units 0-19 [facility] Comment on above: Negative 0 - 19 Weak Positive 20 - 30 Moderate to Strong Positive >30 Serum gliadin peptide IgG an tibody assay (units/volume)Ordered By: Sheila Magallanes on 11-06-2022 Gliadin peptide IgG Qn (S) 4 units 0-19 [facility] Comment on above: Negative 0 - 19 Weak Positive 20 - 30 Moderate to Strong Positive >30 Serum tissue transglutaminas e (tTG) IgA antibody assay (units/volume)Ordered By: Sheila Magallanes on 11-06-2022 tTG IgA Qn (S) <2 U/mL 0-3 [facility] Comment on above: Negative 0 - 3 Weak Positive 4 - 10 Positive >10 Tissue Transglutaminase (tTG) has been identified as the endomysial antigen. Studies have demonstr- ated that endomysial IgA antibodies have over 99% specificity for gluten sensitive enteropathy. Serum tissue transglutaminas e (tTG) IgG antibody assay (units/volume)Ordered By: Sheila Magallanes on 11-06-2022 tTG IgG Qn (S) <2 U/mL 0-5 [facility] Comment on above: Negative 0 - 5 Weak Positive 6 - 9 Positive >9 Sodium Stoolon 11-06-2022 Sodium Stool Normal [facility] Comment on above: Order Comment: Reaso n for Exam Change in bowel habits Result Comment: See report. Scanned copy available in EMR. PERFORMED BY: [place] [address] PATHOLOGIST CORPORATE ACCOUNT EXECUTIVE JOSE GUARDADO M.D. Performed By: #### C ALPROTECT, STOOL NA, OPEXAM, ELASTASE STOOL, CELIAC #### [facility] , #### ESR, CDT, CRP, CUSTOOL, TSH3 #### [facility] [address] [place] [address] Stool Cultureon 11-06-2022 Stool culture Reason for [...] or E. coli 0157:H7 Isolated PERFORMED BY: [place] [address] PATHOLOGIST CORPORATE ACCOUNT EXECUTIVE JOSE GUARDADO M.D. [facility] Comment on above: Performed By: #### C ALPROTECT, STOOL NA, OPEXAM, ELASTASE STOOL, CELIAC #### [facility] , #### ESR, CDT, CRP, CUSTOOL, TSH3 #### [facility] [address] [place] [address] [place] Stool bacteria identificatio n by cultureOrdered By: Sheila Magallanes on 11-06-2022 Bacteria identified Cx Nom (Stl) [facility] Stool sodium measurement (mo les/volume)Ordered By: Sheila Magallanes on 11-06-2022 Sodium (Stl) [Moles/Vol] See comment [facility] Comment on above: See report. Scanned copy available in EMR. Thyroid Stimulating Hormoneo n 11-06-2022 TSH Qn 3.51 m[IU]/L Normal 0.45-5.33 [facility] Comment on above: Order Comment: Reaso n for Exam Change in bowel habits Result Comment: PERF ORMED BY: [facility] [address] [place] [address] PATHOLOGIST CORPORATE ACCOUNT EXECUTIVE JOSE GUARDADO M.D. Performed By: #### C ALPROTECT, STOOL NA, OPEXAM, ELASTASE STOOL, CELIAC #### [facility] , #### ESR, CDT, CRP, CUSTOOL, TSH3 #### [facility] [address] Thyrotropin [Units/volume] i n Serum or PlasmaOrdered By: Sheila Magallanes on 11-06-2022 TSH Qn 3.51 m[IU]/L 0.45-5.33 [facility] HEP C RNA BY PCR QUANT (NON- GRAPHICAL) Won 10-21-2022 HCV Genotype RTNI Normal [facility] Comment on above: Result Comment: Not indicated Performed By: #### E DASH DE OLIVEIRARO #### [facility] [address] [place] [address] Dr. Yogi Naidu HCV log10 UPTCAL Normal [facility] Comment on above: Result Comment: Unab le to calculate result since non-numeric result obtained for component test. Performed By: #### E ALVINO UMICRO #### [facility] [address] [address] [address] Yogi Naidu Hepatitis C Quantitation Not detected Normal [facility] Comment on above: Performed By: #### E ALVINO UMICRO #### [facility] [address] [place] [address] Dr. Yogi Naidu Test Information: Comment Normal [facility] Comment on above: Result Comment: The quantitative range of this assay is 15 IU/mL to 100 million IU/mL. Performed By: #### E MERLE DE OLIVEIRA #### [facility] [address] [place] [address] Dr. Yogi Naidu BOX TEST SENT OUTon 10-21-19 23 SENT TO REF LAB 10/20/2022 Normal [facility] Comment on above: Performed By: #### B OX #### [facility] [address] [place] [address] Dr. Yogi Naidu CBC AUTO DIFFon 10-20-2022 BASO # 0.1 103/ul Normal 0.0-0.1 [facility] Comment on above: Performed By: #### C BC #### [facility] [address] [place] [address] Dr. Yogi Naidu Basophils/100 WBC (Bld) 1.1 % Normal 0.2-2.0 [facility] Comment on above: Performed By: #### C BC #### [facility] [address] [place] [address] Dr. Yogi Naidu EO # 0.2 103/ul Normal 0.0-0.7 [facility] Comment on above: Performed By: #### C BC #### [facility] [address] [place] [address] Dr. Yogi Naidu Eosinophils/100 WBC (Bld) 3.6 % Normal 0.9-7.0 [facility] Comment on above: Performed By: #### C BC #### [facility] [address] [place] [address] Dr. Yogi Naidu Erythrocyte distribution width (RBC) [Ratio] 14.2 % Normal 11.0-15.0 [facility] Comment on above: Performed By: #### C BC #### [facility] [address] [place] [address] Dr. Yogi Naidu Hematocrit (Bld) [Volume fraction] 45.4 % Normal 42.0-54.0 [facility] Comment on above: Performed By: #### C BC #### [facility] [address] [address] [address] Yogi Naidu Hemoglobin (Bld) [Mass/Vol] 15.0 g/dL Normal 14.0-18.0 [facility] Comment on above: Performed By: #### C BC #### [facility] [address] [place] [address] Dr. Yogi Naidu IG # 0.02 10e3/ul Normal 0.00-0.03 [facility] Comment on above: Performed By: #### C BC #### [facility] [address] [place] [address] Dr. Yogi Naidu IG % 0.4 % Normal 0.0-0.5 [facility] Comment on above: Performed By: #### C BC #### [facility] [address] [place] [address] Dr. Yogi Naidu LYMPH # 0.7 103/ul Critically low 1.2-3.8 [facility] Comment on above: Performed By: #### C BC #### [facility] [address] [place] [address] Dr. Yogi Naidu Lymphocytes/100 WBC (Bld) 13.3 % Critically low 20.5-60.0 [facility] Comment on above: Performed By: #### C BC #### [facility] [address] [place] [address] Dr. Yogi Naidu MANUAL DIFF REQ NO Normal [facility] Comment on above: Performed By: #### C BC #### [facility] [address] [place] [address] Dr. Yogi Naidu MCH (RBC) [Entitic mass] 29.7 pg Normal 25.9-34.0 [facility] Comment on above: Performed By: #### C BC #### [facility] [address] [place] [address] Dr. Yogi Naidu MCHC (RBC) [Mass/Vol] 33.0 g/dL Normal 29.9-35.2 [facility] Comment on above: Performed By: #### C BC #### [facility] [address] [address] [address] Yogi Naidu MCV (RBC) [Entitic vol] 89.9 fL Normal 80.0-94.0 [facility] Comment on above: Performed By: #### C BC #### [facility] [address] [place] [address] Dr. Yogi Naidu MONO # 0.3 103/ul Normal 0.3-0.8 [facility] Comment on above: Performed By: #### C BC #### [facility] [address] [place] [address] Dr. Yogi Naidu Monocytes/100 WBC (Bld) 5.8 % Normal 1.7-12.0 [facility] Comment on above: Performed By: #### C BC #### [facility] [address] [place] [address] Dr. Yogi Naidu NEUT # 4.1 103/ul Normal 1.4-6.5 [facility] Comment on above: Performed By: #### C BC #### [facility] [address] [place] [address] Dr. Yogi Naidu Neutrophils/100 WBC (Bld) 75.8 % Critically high 43.0-75.0 [facility] Comment on above: Performed By: #### C BC #### [facility] [address] [place] [address] Dr. Yogi Naidu Platelet mean volume (Bld) [Entitic vol] 9.3 fL Critically low 9.5-13.5 [facility] Comment on above: Performed By: #### C BC #### [facility] [address] [place] [address] Dr. Yogi Naidu PLT 174 103/ul Normal 150-450 [facility] Comment on above: Performed By: #### C BC #### [facility] [address] [place] [address] Dr. Yogi Naidu RBC 5.05 106/ul Normal 4.70-6.10 [facility] Comment on above: Performed By: #### C BC #### [facility] [address] [place] [address] Dr. Yogi Naidu WBC 5.4 103/ul Normal 4.0-11.0 [facility] Comment on above: Performed By: #### C BC #### [facility] [address] [place] [address] Dr. Yogi Naidu GGTon 10-20-2022 Gamma glutamyl transferase [Catalytic activity/Vol] 28 U/L Normal 15-85 [facility] Comment on above: Performed By: #### C MP, MG, PHOS, GGT #### [facility] [address] [place] [address] Dr. Yogi Naidu LIPID PROFILEon 10-20-2022 CHOL-HDL RATIO NORM SEE BELOW Normal [facility] Comment on above: Result Comment: 3.3 - 4.4 LOW RISK 4.4 - 7.1 AVERAGE RISK 7.1 - 11.0 MODERATE RISK >11.0 HIGH RISK Performed By: #### C MP, MG, PHOS, GGT #### [facility] [address] [place] [address] Dr. Yogi Naidu Cholesterol [Mass/Vol] 195 mg/dL Normal <=200 [facility] Comment on above: Performed By: #### C MP, MG, PHOS, GGT #### [facility] [address] [place] [address] Dr. Yogi Naidu Cholesterol in HDL [Mass/Vol] 50 mg/dL Normal 40-60 [facility] Comment on above: Performed By: #### C MP, MG, PHOS, GGT #### [facility] [address] [place] [address] Dr. Yogi Naidu Cholesterol in LDL [Mass/Vol] 131.6 mg/dL Normal [facility] Comment on above: Performed By: #### C MP, MG, PHOS, GGT #### [facility] [address] [place] [address] Dr. Yogi Naidu Cholesterol.total/Choles terol in HDL [Mass ratio] 3.9 {ratio} Normal [facility] Comment on above: Performed By: #### C MP, MG, PHOS, GGT #### [facility] [address] [place] [address] Dr. Yogi Naidu HDL NORMAL > or = 60 mg/dl - LO W CARDIOVASCULAR RISK <40 mg/dl - HIGH CARDIOVASCULAR RISK Normal [facility] Comment on above: Performed By: #### C MP, MG, PHOS, GGT #### [facility] [address] [place] [address] Dr. Yogi Naidu LDL CALC NORMAL SEE BELOW Normal [facility] Comment on above: Result Comment: <100 mg/dl OPTIMAL 100 - 129 mg/dl NEAR OR ABOVE OPTIMAL 130 - 159 mg/dl BORDERLINE HIGH 160 - 189 mg/dl HIGH >190 mg/dl VERY HIGH Performed By: #### C MP, MG, PHOS, GGT #### [facility] [address] [place] [address] Dr. Yogi Naidu Triglyceride [Mass/Vol] 67 mg/dL Normal <=150 [facility] Comment on above: Performed By: #### C MP, MG, PHOS, GGT #### [facility] [address] [place] [address] Dr. Yogi Naidu VLDL CALC 13.4 mg/dL Normal [facility] Comment on above: Performed By: #### C MP, MG, PHOS, GGT #### [facility] [address] [place] [address] Dr. Yogi Naidu MAGNESIUMon 10-20-2022 Magnesium [Mass/Vol] 1.8 mg/dL Normal 1.8-2.4 [facility] Comment on above: Performed By: #### C MP, MG, PHOS, GGT #### [facility] [address] [place] [address] Dr. Yogi Naidu PHOSPHORUSon 10-20-2022 Phosphate [Mass/Vol] 3.2 mg/dL Normal 2.6-4.7 [facility] Comment on above: Performed By: #### C MP, MG, PHOS, GGT #### [facility] [address] [place] [address] Dr. Yogi Naidu PROF 14(COMP METB)on 023 Albumin [Mass/Vol] 3.8 g/dL Normal 3.4-5.0 [facility] Comment on above: Performed By: #### C MP, MG, PHOS, GGT #### [facility] [address] [place] [address] Dr. Yogi Naidu Albumin/Globulin [Mass ratio] 1.5 {ratio} Normal [facility] Comment on above: Performed By: #### C MP, MG, PHOS, GGT #### [facility] [address] [place] [address] Dr. Yogi Naidu ALP [Catalytic activity/Vol] 64 U/L Normal 46-116 [facility] Comment on above: Performed By: #### C MP, MG, PHOS, GGT #### [facility] [address] [place], [place] [address] [place]. Yogi Naidu ALT [Catalytic activity/Vol] 21 U/L Normal 16-63 [facility] Comment on above: Performed By: #### C MP, MG, PHOS, GGT #### [facility] [address] [place] [address] Dr. Yogi Naidu Anion gap [Moles/Vol] 12.6 mmol/L Normal [facility] Comment on above: Performed By: #### C MP, MG, PHOS, GGT #### [facility] [address] [place] [address] Dr. Yogi Naidu AST [Catalytic activity/Vol] 14 U/L Critically low 15-37 [facility] Comment on above: Performed By: #### C MP, MG, PHOS, GGT #### [facility] [address] [place] [address] Dr. Yogi Naidu Bilirubin [Mass/Vol] 0.6 mg/dL Normal 0.2-1.0 [facility] Comment on above: Performed By: #### C MP, MG, PHOS, GGT #### [facility] [address] [place] [address] Dr. Yogi Naidu Calcium [Mass/Vol] 9.1 mg/dL Normal 8.5-10.1 [facility] Comment on above: Performed By: #### C MP, MG, PHOS, GGT #### [facility] [address] [address] [address] Yogi Naidu Chloride [Moles/Vol] 110 mmol/L Critically high 98-107 [facility] Comment on above: Performed By: #### C MP, MG, PHOS, GGT #### [facility] [address] [address] [address] Yogi Naidu CO2 [Moles/Vol] 27.6 mmol/L Normal 21.0-32.0 [facility] Comment on above: Performed By: #### C MP, MG, PHOS, GGT #### [facility] [address] [address] [address] Yogi Naidu Creatinine [Mass/Vol] 1.06 mg/dL Normal 0.70-1.30 [facility] Comment on above: Performed By: #### C MP, MG, PHOS, GGT #### [facility] [address] [place] [address] Dr. Yogi Naidu EGFR-AF TOGOLESE >60 Normal >=60 [facility] Comment on above: Performed By: #### C MP, MG, PHOS, GGT #### [facility] [address] [address] [address] Yogi Naidu EGFR-NON AF TOGOLESE >60 Normal >=60 [facility] Comment on above: Performed By: #### C MP, MG, PHOS, GGT #### [facility] [address] [place] [address] Dr. Yogi Naidu Globulin (S) [Mass/Vol] 2.6 g/dL Normal [facility] Comment on above: Performed By: #### C MP, MG, PHOS, GGT #### [facility] [address] [address] [address] Yogi Naidu Glucose [Mass/Vol] 106 mg/dL Normal 74-106 [facility] Comment on above: Performed By: #### C MP, MG, PHOS, GGT #### [facility] [address] [place] [address] Dr. Yogi Naidu Potassium [Moles/Vol] 4.2 mmol/L Normal 3.5-5.1 [facility] Comment on above: Performed By: #### C MP, MG, PHOS, GGT #### [facility] [address] [place] [address] Dr. Yogi Naidu Protein [Mass/Vol] 6.4 g/dL Normal 6.4-8.2 [facility] Comment on above: Performed By: #### C MP, MG, PHOS, GGT #### [facility] [address] [place] [address] Dr. Yogi Naidu Sodium [Moles/Vol] 146 mmol/L Critically high 136-145 [facility] Comment on above: Performed By: #### C MP, MG, PHOS, GGT #### [facility] [address] [place] [address] Dr. Yogi Naidu Urea nitrogen [Mass/Vol] 20.0 mg/dL Critically high 7.0-18 .0 [facility] Comment on above: Performed By: #### C MP, MG, PHOS, GGT #### [facility] [address] [place] [address] Dr. Yogi Naidu Urea nitrogen/Creatinine [Mass ratio] 18.9 mg/mg Normal [facility] Comment on above: Performed By: #### C MP, MG, PHOS, GGT #### [facility] [address] [place] [address] Dr. Yogi Naidu Tacrolimus [facility] 2022 Tacrolimus (Bld) [Mass/Vol] 5.7 ng/mL Normal 5.0-20.0 [facility] Comment on above: Order Comment: Speci men [...] situation. Test performed by chemiluminescent immunoassay using [employer] i. Performed By: #### 1 1253-2 #### [facility] CLIA [id number] [address] [facility] [place] [address] [place] Physician Orderon 10-10-2022 Physician Order [id number]#1.0 0CD:127 Normal [facility] Lab Reportson 10-09-2022 Lab Reports [id number]#1.0 0CD:127 Normal [facility] PSA Total (Not a Screen)on 0 10-09-2022 PSA Total (Not a Screen) 48.840 ng/mL High 0.000-4.0 00 [facility] Comment on above: Result Comment: PERF ORMED BY: [place] [address] PATHOLOGIST CORPORATE ACCOUNT EXECUTIVE JOSE GUARDADO M.D. Performed By: #### C ALPROTECT, STOOL NA, OPEXAM, ELASTASE STOOL, CELIAC #### [facility] , #### ESR, CDT, CRP, CUSTOOL, TSH3 #### [facility] [address] Prostate specific Ag [Mass/v olume] in Serum or PlasmaOrdered By: Sugey Arteaga on 10-09-2022 Prostate specific Ag [Mass/Vol] 48.840 ng/mL 0.000-4.000 [facility] Screenson 10-09-2022 Screens [id number]#1.00 CD:127 Normal [facility] Screens [id number]#1.00 CD:127 [facility] Ambulatory Visit Summaryon 0 10-08-2022 Ambulatory Visit Summary SUSAN SHERMAN :1950 Visit Date:10/08/2022 Ambulatory Visit Instructions Your Diagnosis BPH with urinary obstruction Elevated PSA Feeling of incomplete bladder emptying ED (erectile dysfunction) Tests Performed Urnls Dip Stick Auto w/o Microscopy POC 70640 Your Care Team Attending Physician - Sugey Arteaga MD Primary Care Physician - ELVIRA SCHULTZ DO Referring Physician - Sugey Arteaga MD This Is Your Medications List Contact prescribing [...] Schedule the Following Appointments Follow Up with Sugey Arteaga MD, URL, URO When: Where: [address] [place] [address] [phone] Medications What How Much When Instructions Unchanged [...] Urnls Dip Stick Auto w/o Microscopy POC 57910 (10/08/2022) Bilirubin Urine Dipstick - Negative Blood Urine Dipstick - Negative Glucose Urine Dipstick - Trace 100 mg/dl Ketones Urine Dipstick - Negative Leukocytes Urine Dipstick - 1+ Small Nitrite Urine Dipstick - Negative Protein Urine Dipstick - Negative Specific [place] Urine Dipstick - 1.025 Urine Appearance Urine [...] including vitamins, herbs, eye drops, creams, and vguo-stl-bsqsepd medicines. ? Any problems you or family [...] Erectile dysfunction (more content not included)... Normal [facility] Patient Educationon 10-09-19 23 Patient Education Urology Transurethral Resection of [...] including vitamins, herbs, eye drops, creams, and eynr-ibh-nrcdzxl medicines. ? Any problems you or family [...] tells you to take them. ? Taking qwgg-uzc-ynsaolo medicines, vitamins, herbs, and supplements. Surgery safety [...] health care (more content not included)... Normal [facility] Urology Office/Clinic Noteon 10-08-2022 Urology Office/Clinic Note Chief Complaint Follow up HPI Staff Follow up to Cysto done 09/22/22. [...] increase. -Scheduled for MRI Pacemaker check at [facility] on 10/09/2022 at 10:00am If ok, proceed [...] Information Chandler CHAVEZ, Sugey Cummins, URL, URO [address], [place] [address]- [phone] Additional Instructions: Pt will f/u after MRI Pacemaker check Patient Education Transurethral Resection of the Prostate I, Anny Hogan , personally scribed for Dr. Arteaga on 10/08/2022 08:47:05. . Documentation recorded by the scribAnny lemons, accurately reflects the services(s) I performed [...] biopsy of (more content not included)... Normal [facility] Comment on [...] S F Nitrofurantoin <=16 S F Normal [facility] Comment on above: Performed By: #### C MP, MG, PHOS, GGT #### [facility] [address] [place] [address] Dr. Yogi MANZANO URINE PROFILEon 3 Bilirubin Ql (U) Negative Normal NEGATIVE [facility] Comment on above: Performed By: #### DASH CULVERRO #### [facility] [address] [place] [address] Dr. Yogi Naidu Clarity (U) SL CLOUDY Abnormal CLEAR [facility] Comment on above: Performed By: #### SONU CULVERICRO #### [facility] [address] [place] [address] Dr. Yogi Naidu Color (U) LT. YELLOW Normal YELLOW [facility] Comment on above: Performed By: #### DASH CULVERRO #### [facility] [address] [place] [address] Dr. Yogi KIRAN A micrscopic examination will be performed if indicated. Normal [facility] Comment on above: Performed By: #### SONU CULVERICRO #### [facility] [address] [place] [address] Dr. Yogi Naidu Glucose Ql (U) Negative Normal NEGATIVE [facility] Comment on above: Performed By: #### DASH CULVERRO #### [facility] [address] [place] [address] Dr. Yogi Naidu Hemoglobin Ql (U) Negative Normal NEGATIVE [facility] Comment on above: Performed By: #### DASH CULVERRO #### [facility] [address] [place] [address] Dr. Yogi Naidu Ketones Ql (U) 15 mg/dl Abnormal NEGATIVE [facility] Comment on above: Performed By: #### DASH CULVERRO #### [facility] [address] [place] [address] Dr. Yogi Naidu LEUKOCYTES MODERATE Abnormal NEGATIVE [facility] Comment on above: Performed By: #### SONU CULVERICRO #### [facility] [address] [place] [address] Dr. Yogi Naidu Nitrite Ql (U) Negative Normal NEGATIVE [facility] Comment on above: Performed By: #### Vesta DE OLIVEIRA UMICRO #### [facility] [address] [place] [address] Dr. Yogi Naidu pH (U) 5.5 [pH] Normal 5-9 [facility] Comment on above: Performed By: #### Vesta DE OLIVEIRA UMICRO #### [facility] [address] [place] [address] Dr. Yogi Naidu SPEC GRAVITY 1.030 Abnormal 1.005-<=1.[address] [place] [address] Comment on above: Performed By: #### Vesta DE OLIVEIRA UMICRO #### [facility] [address] [place] [address] Dr. Yogi Naidu UA PROTEIN TRACE Normal NEGATIVE/ TRACE [facility] Comment on above: Performed By: #### Vesta DE OLIVEIRA UMICRO #### [facility] [address] [place] [address] Dr. Yogi Naidu UR MICRO IND INDICATED Normal [facility] Comment on above: Performed By: #### Vesta DE OLIVEIRA UMICRO #### [facility] [address] [place] [address] Dr. Yogi Naidu Urobilinogen Qn (U) 0.2 {Kt'U}/dL Normal 0.2 - 1. 0 [facility] Comment on above: Performed By: #### Vesta DE OLIVEIRA UMICRO #### [facility] [address] [place] [address] Dr. Yogi Naidu URINE MICROSCOPIC ONLYon BACTERIA SMALL Abnormal NONE SEEN [facility] Comment on above: Performed By: #### Vesta DE OLIVEIRA UMICRO #### [facility] [address] [place] [address] Dr. Yogi Naidu Bacteria identified Cx Nom (U) CX ALREADY ORDERED Normal [facility] Comment on above: Performed By: #### Vesta DE OLIVEIRA UMICRO #### [facility] [address] [place] [address] Dr. Yogi Naidu CAST NONE SEEN Normal NONE SEEN [facility] Comment on above: Performed By: #### Vesta DE OLIVEIRA UMICRO #### [facility] [address] [address] [address] Yogi Naidu Crystals LM Nom (Urine sed) NONE SEEN Normal NONE SEEN [facility] Comment on above: Performed By: #### DASH CULVERRO #### [facility] [address] [address] [address] Yogi Naidu Epithelial cells LM Ql (Urine sed) NONE SEEN Normal NONE SEEN /RARE [facility] Comment on above: Performed By: #### SONU CULVERICRO #### [facility] [address] [place] [address] Dr. Yogi Naidu MUCOUS NONE SEEN Normal NONE SEEN [facility] Comment on above: Performed By: #### DASH CULVERRO #### [facility] [address] [place] [address] Dr. Yogi Naidu RBC 0-2 Normal 0-2 [facility] Comment on above: Performed By: #### DASH CULVERRO #### [facility] [address] [place] [address] Dr. Yogi Naidu WBC 50-75 Abnormal NONE SEEN [facility] Comment on above: Performed By: #### DASH CULVERRO #### [facility] [address] [place] [address] Dr. Yogi Naidu Coding Summary.on 09-23-2022 Coding Summary. CD:[id number] Ww +PGhlYWQ+YL3SZXMaL16ri ZHbyQ0kJ9AYEFmEDyoqRNM BGWwVAvAfwrEdWS1hvACrK XJu IC8+PU8iFFWzIsoojNAwx1 G3wIL1R59dxq7nFAfemDG7 YUUcAgNmotsbe6ryoIx8KZ cuNmluOyBt TTHyeI81ERP3sQ24Wl83iM HqdFFle8jfeAd5ZjFiTRJd HYA8fCrqNCwzx6SdDBPdC3 0xdUJvx0B4 BCYgcDxekAYkIwPbnPK9jB 7uRXosrskzi9pmvjnnAof1 ds83kHSdt0Q6gAD4I4Eakf S9ZASxaLFg OewvxWCJxZ4qjrxoz5mvhj cwQvIjJVGcMWa4UIj6QVYr jJvlJhZwUS70LED2WGPinj OpM7OsILHr sFxfDyV5j4Z6Rt8AB5VJGj acE0VEDSTQADsrdRM+PC90 vn43G5VeNfroRtn9XSDhKC G5eQO2sT5e AFMbJWwif5A0xYC9M1Vsxq Eoxa4ru7gfGSSeIRyxY52m dDBla0I3LUSldUS1EKMoyC toGiMsaX39 Oyc+XZNcnXfdx9LdGibxr4 iip2iyhAc1OkxfSBKtwtQb sQdmSSE0r1OlJi0vSESkvT K3gLO2dY6r LkSlNbV0ORpiQ349ZaFvcL MpRsnbD93dI7GglVT+PHRy Tak0RXMsxUszTW8eH8MzVG RpbmctbGVm dMkiSM5uTHRoebiqIVAecG 2jNGNcM7m3QrNoXlS6DXlo P6XrRKGczmnvVh78jS2dZb AcIvH4RSau F6UvuiM2XPDizQKpRAszCU K9Q18ma5D6RERbGHUbMYX6 iRI3yV5lvMiflqqktTTftK sgdmVydGlj UWtkZIxhV241PBDydRvhMs NvZGluZyBEYXRlOiAgMDQv MTEvMjAyMzwvdGQ+PHRkIH A0tQnaIYDt eNEtKBjvAe3qaJqqhYsmOT 8vGJJvtcksQXRhcM9jZMWn lTPraHhyIZ2vGCChokugw4 47FeGcHJG8 QLKiuJVpN5ZotR7yMzTdGV FqHLXoU5HqgELpFSekH771 KPogDjK7WACarrTsY1DaQC FsaWduOiB0 l6C8Cn4Dc0FneqlaS5YdmM RlIqDbZlqjJXj9H7KsShjf dHI+BR35GVJgNL67RCg4WV L5mKmhIMib ZDNoY3KksD6hSkFqAAHpRC RkOyc+PHRhYmxlIHdpZHRo DKtlYJUkLiTdtZhmPQ7wCx 9yZGVyLWNv lWcmvAAyUlVnl6vsTIAqRH lbQV3fwSrpW1ZrlOQ7WFUg a5n5Lb06U89fS8SjeIL+PG SgzLV2xVX8 mI2aHyKaTtC1CKfaF519Vm SksFEzHtatq0bri9ckpFx0 ByB8PJEnnbJelKqwVEH3x7 LxIm19C01q IHdpZHRoPSIxNSUiIHZhbG uywx1ktS5jLb6+PGNvbCB3 tHW4jR7sXsGzCnC9NEdoQ2 49InRvcCIv Hoper9xko1usvOx2TgOlEV LvkpXsjAnpYSB2y5KpOi40 D9WzcDoxx8ApOqp7rp80rG Tvh7O8sOO5 P6GnNDLuggnlmXTgcWorTD 9aGYJcwdzuBVOdvR9lWSYz C3e8UkFrLkB1RRgnS9Yegs C3EBZwnXLq DMWjkKFGzR4qnxbym4hghl nuUzOmLZQuRMj3GRc8ZKCt xSalIpLuCTV6BzB5TMM1rZ ZswJ8fcUwr aadtkW9oGgt+NQI9yQEmvR NAJQ0lGcocuAV+PHRkIHN0 nCadMDicKLGrcF1mKSUiK6 t2RtZkRrV2 SVnhY4GnhoF4SNGsgCAaQZ JcqUFWeV1caaiih7zkpmxq FaDwYYGdKSn0EKr6PULtkE duOiBsZWZ0 CdN1ZEH2jLZmjT7gwYpaay dvdX1mOev+QmlydGggRGF0 PNf4V0YvCig2QZPhuLkeMG 0ncGFkZGlu Pp3frYmjtDavFC5oKCQwum zkp206QkNeu3mzPHEcfDMz KAjsOBN7I40kd6K4XUYrBI UhSPY0hXE7 pR5pxSssqxttgMObdNshyv WtbAtaHSgyHTxyD392CLLi jZcyWtNyYVk5D6CbRkz8JL IhpDcbVM5v jYTtOMyiCm0uxUgobAbnGB 0dSXChaakml605NyBbt1fr MWKzwKWeAYddANB4K45uz8 Z8XWLiFCNd PDX2kBY6oM1ddTwsgpntcS VmdDsgdmVydGljYWwtYWxp H105QCIveLgxGtEdcNr9T1 GdCgk2MNEb mBxaDO8ryTWlSHxdTu4tnQ pivXvyUH9pFOFmesjqi991 ImZeq3xaQBXpbIKhQWdeBJ M1S53nv7P7 YDJgSPNjQGO9rLW6wE2xxN lnbjogbGVmdDsgdmVydGlj JFglHBqpG317YLQllJeuZh BhdGllbnQg YFjtOXm4R0TnDqjngKT+PC 49WNWpXG61gLBonVIpe3lh iSl0EwMvGPUlNMA0fMtsBL fxj7QsMMHq B71kqJQfy9G2YHIcuKcsnT CgQhGgtPP9iB3gBEbhzorq v2qzwrqiRxgnd3cffr08nZ 31E78vXRtb ZHRoPSIzMCUiIHZhbGlnbj 2oqY8oDm4+LCJjzLE1oNV0 jP5aXTLyFiX3HKlyP007Nk RvcCIvPjxj v5dco6pceNt0KcW3YIIlhn XioDwcKXH6k7SfDf96F42i IHdpZHRoPSIyMCUiIHZhbG rtuc0mjH1x Ii8+KUMfwNM5xVW9rV4hMl OwRwI8QKsaX976UrDhmXQa IehwS04xR3VhxLZ+PHRyPj m6GCJfvLhy EC6gdKDlMSdbMy0cYUN9Iq CpUsQnETphV3ZeUBAwltbt qbrcgJO3LSVkMXEfcS66Qh 9udDogMTBw pCISvH2ijhvml5rqhdkgHt QmPKKxJYa5SNo5YTYrjIlo NgOnNMI8VzH7JCB5jQFsdY 1hbGlnbjog eE9hI3AdEXRnwdcpPb39fD 0dJyKuEqO2RNcuJlk+QVJQ XSLTXLLZSLVHJC29II69cQ Oja0I4rGN5 D2SbFQUvpprhtpxlrRO0AK HpYUWikU14cMPdOIxuFr2i r9S9m526CRDoZACheA94Bz 9udDogMTBw jZZShA0hjpkrz8vilbcgPv CiPGHrJTp9NJc2VYCneTiy HlVwCHT8TyW8QOX9bGIahU 1hbGlnbjog tG9iQca+NUptVzroVLg0Qk wvdGQ+BBJwWAB8nSzpLXlj AHWebG0nQPIfX6b2YnRwIr J1KBagP3Wk PJEzvwfyGh45jK2vOiRrOi L0WNcpG0HqqxO4XEHgeTDs ZOaoQTV6F13mq5I2UGGrTS GwPVX5bRZ7 jL5uzUrmxfkqzZAvcTsuwl XsnFjdXPjfEAwlF221UAFy iFvrLgxbTNzpNHMkVR71ZF 40gRLvz7V9 aBM9E0EwIOBxuloodtxnyX I1RJQhNCTtpN69dZGsLUsd Si4sv1O0i510VAWgTLZeqA 23Ww8ieHje WVNnaSDZeI9riuabv1qeig wqLiUuMVUsZGs2LVr6TDDw nFbtVcLlHTI3PhZ8FDX3zC UuvO2tbDft hmjvlA6jFat+TWFsZTwvdG Q+FNXrLVB2rHyvJWqhFSFo gT2wFDCyA2r2VeIbTcL7HL swH5VfMJEc okizEx01uT1zEvNhMuA0DR tfS6TgjtL2FNHjrSFcEDqr SIT9T66fm7S5GIRyWBPeAE C0yTZ3tH7q bGlnbjogbGVmdDsgdmVydG dcBSwdSJrcJ328PLNuxNdl Fd12eAFwgWfjklT4G1VnBh wvdHI+PC90 YLPwOW04eCYeoBHmn1vwvY r6JbOuLIStZPW7zNrfFPsv w1AmXQAnO90boNHvr8P3WA NvbGxhcHNl HbMdmFL8fR0kQQyvykgmo0 uwyqpmVknno7mjmn52jK40 P67cJRbuSVHcZLRnUSQdUR FllRlcye2s wA1jKr4+LQWacDZ4vTN7rQ 2fOqPdFhQ8MZimJ914MyKp nUCfLtcwu2rwx6qvtCr8Tf IwJSIgdmFs wXckLMC3l3JiMj08C39nYR dpZHRoPSIyMCUiIHZhbGln io1iqD1dDu6+XD1ry0cqic 91hT29sKQ+ YVGtVJX8oXtcBRvmRFCueU 3wDUdpPzR1HZEqPzIgpW32 sCJiCFyhSv5fiOtdsDfaGB 4wNTBpbjtm u245PyZvq6hlNJXggQMgUV qpFCC7H66sk4Q6PUNgMXLe BXR0oAK4zC9jqSwfkpfrrG VmdDsgdmVy yDylLNxtLCcnU778QRBvxL ngOpXaeHKyQ0ebjhGMXK2f OjwvdGQ+QSPmFVW2mVbjTO zkDUFwiG9k JAYyK7p9FmKdLzM5GZcsK9 ZlfnD7DHDbgJQgWHRkzHCN zM8abnpns4varfeaYgLlPG GfLZn5WYp3 AOBolJexTgOwMFI6VbZ8KL Z0jFUcbT1ktCbbgjsusQ0p Oyc+RklOOjwvdGQ+PHRkIH Q1uBpvVGko HRDxqS9lNPNnC5j6DfJsMd B4ZPxyD5BaehC5RJDxeMLx DZDmdHNYkN8bltzrc0epzm ogIzAwMDAw YSl3ORa0QXAozLzoMuNdEX L4DvK3MTF5oCYqwX2giFfj kxidhI4wQoq+TVJOOjwvdG Q+PHRkIHN0 yIkoRNuiWEPtiK9pTDWsV7 j1YvErEmG5FDntP3PlcxS6 JGXuoTQrXBTrwHAYuP3skl xcx3rbygse ZhKeTSHtFHo8ETr7UAEdrX guYcUcBYT4BsA7CXJ9cQGh aV3nkYiuooszjP1aSdd+UG B5SBH4AF97 QM27H8WlKsmnlPIruPO+PH RhYmxlIHdpZHRoPScxMDAl JfSjjZtvDZ7kWs7dFMGzDW NvbGxhcHNl ZlAgv3up (more content not included)... Normal [facility] Consent for Procedure/Surger yon 09-22-2022 Consent for Procedure/Surgery [id number]#1. 00CD:127 Normal [facility] Consent for Treatmenton 09-13 Consent for Treatment [id number]#1.0 0CD:127 Normal [facility] Inpatient Patient Summaryon 09-22-2022 Inpatient Patient Summary [address] [address] Clinical Summary Person Information Name: SUSAN SHERMAN Age: 72 Years : 1950 Sex: Male PCP: ELVIRA SCHULTZ DO Marital Status: Race: White Ethnicity: Non- or Language: Luxembourger Visit Id: Visit Reason: BPH WITH LUTS Speciality: Acuity: Enc Type: Outpatient Med Service: Surgery Arrival: 09/22/2022 07:09:42 Discharge: Dispo Type: Address: [address] [place] [phone] Provider Notes: Diagnosis: BPH with urinary obstruction; [...] MD Follow up: With: Address: When: Sugey Chandler [address], [facility] [place] [address] [phone] Business (1) [address], [address], [facility] [address] [place] [address] [phone] Business (1) Comments: Office to schedule follow up in 2-4 wks to review MRI prostate and BPH procedures Type Location Start Finish State [place]RO [place] [facility] [place] 10/08/2022 8:00 AM 10/08/2022 8:15 AM Confirmed Patient Education Information: [facility] - Cystoscopy Discharge Instructions (CUSTOM) [facility] IntraOperative Documentson 0 09-22-2022 IntraOperative Documents [id number]. 00CD:127 [facility] Main OR Intraoperative Recor don 09-22-2022 Main OR Intraoperative Record IntraOp Document Type FTURO Summary Primary Physician: Sugey Arteaga MD Finalized Date/Time: 09/22/22 08:15:09 Pt. Name: SUSAN SHERMAN/Sex: 1950 Male Med Rec #: [id number] Physician: Sugey Arteaga MD Financial #: [id number] Pt. Type: O Room/Bed: / Admit/Disch: 09/22/22 07:09:42 - Institution: Case Times FTURO Entry 1 Patient Times In Room 09/22/22 08:06:00 Out Room 09/22/22 08:15:00 Procedure Times Start 09/22/22 08:09:00 Stop 09/22/22 08:11:00 Anesthesia Times Last Modified By: Carline Reina RN 09/22/22 08:15:05 Case Attendance FTURO Entry 1 Entry 2 Entry 3 Case Attendee Chandler CHAVEZ, Sugey Yanez [employer], Carline Oshea RN Role Performed Surgeon - Primary Scrub - Primary Medical Oncologist - Primary Time In 09/22/22 08:06:00 09/22/22 08:06:00 09/22/22 08:06:00 Time Out 09/22/22 08:15:00 09/22/22 08:15:00 09/22/22 08:15:00 Procedure CYSTOSCOPY LOCAL(.) CYSTOSCOPY LOCAL(.) CYSTOSCOPY LOCAL(.) Comments Last Modified By: Nuno DICKINSON, Carline Reina RN, Carline Griffin RN 09/22/22 08:15:06 09/22/22 08:15:06 09/22/22 08:15:06 Surgical [...] By: Carline Reina RN 09/22/22 08:15 Normal [facility] Main OR Preoperative Recordo n 09-22-2022 Main OR Preoperative Record Holding Area Document Type FTURO Summary Primary Physician: Sugey Arteaga MD Finalized Date/Time: 09/22/22 07:34:55 Pt. Name: SUSAN SHERMAN/Sex: 1950 Male Med Rec #: [id number] Physician: Sugey Arteaga MD Financial #: [id number] Pt. Type: O Room/Bed: / Admit/Disch: 09/22/22 [...] No Pain Comment: na Skin Integrity Intact, [place], Warm, & Dry Vitals - EU Blood Pressure 139/83 Pulse 70 bpm Respirations 18 br/min SPO2 98 % RN Reviewed Yes Last Modified By: Carline Reina RN 09/22/22 07:34:53 General Comments: temp:36.4 Finalized By: Carline Reina RN Document Signatures Signed By: Ceci Dash LPN 09/22/22 07:21 Carline Reina RN 09/22/22 07:34 Normal [facility] Operative Reporton Operative Report Patient: SUSAN SHERMAN Age: 72 years Sex: Male : 1950 Associated Diagnoses: None Author: Sugey Arteaga MD Procedure Operative Information Details: Date/ Time: 09/22/2022 08:16:00. Pre-Op Dx: BPH with urinary obstruction (DPM42-CD N40.1, Discharge, Medical). Post-Op Dx: Same. Anesthesia [...] if taking tadalafil at home . Normal [facility] Comment on above: Result Comment: Elec tronically Signed By: Sugey Arteaga MD\.br\Date and Time Signed: 09/22/22 08:20 EDT Outpatient Surgery Discharge Instructionon 09-22-2022 Outpatient Surgery Discharge Instruction [address] [address] Patient Discharge Instructions PERSON INFORMATION Name: SUSAN SHERMAN Date of : 1950 Current Date: 09/22/2022 08:38:02 PHYSICIANS Admitting Physician: Sugey Arteaga MD Comment: Discharge Diagnosis: BPH with urinary obstruction; Other obstructive and reflux uropathy USSAN SHERMAN has been given the following list of follow-up instructions, prescriptions, and patient education materials: IF UNABLE TO CONTACT YOUR PHYSICIAN AND YOU FEEL IT IS AN EMERGENCY, GO TO THE NEAREST EMERGENCY ROOM OR CALL 911 Follow up: With: Address: When: Sugey Arteaga [address] [place] [address] [phone] Business (1) [address] [place] [address] L[place], [address] [address] [phone] Business (1) Comments: Office to schedule follow up in 2-4 wks to review MRI prostate and BPH procedures Type Location Start Finish [facility] [place] [facility] 10/08/2022 8:00 AM 10/08/2022 8:15 AM Confirmed [...] have a fever over 100 degrees. GEORGE Lopez, SUSAN Cox, have received the attached patient education materials/instructions [...] to serve you. Thank you for choosing [facility] Normal [facility] Consenton 09-17-2022 Consent [id number]#1. 00CD:127 Normal [facility] Registrationon 09-17-2022 Registration [id number]#1. 00CD:127 Normal [facility] Screenson 09-11-2022 Screens [id number]#1. 00CD:127 Normal [facility] Screens [id number]#1. 00CD:127 Normal [facility] Patient Educationon 09-11-19 Patient Education Oncology Prostate-Specific Antigen Test Why [...] including vitamins, herbs, eye drops, creams, and idee-bpo-[id number] medicines. This also includes: ? Medicines to [...] 07/04/2005 Document Revised: 05/14/2018 Document Reviewed: 03/08/2018 [employer] Patient Education ? 2019 [employer]. Urology Benign Prostatic Hyperplasia Benign prostatic hyperplasia (BPH) is an enlarged prostate glan (more content not included)... Normal [facility] Physician Orderon 09-10-2022 Physician Order [id number] 0CD:127 Normal [facility] Pre-Certification Formon Pre-Certification Form [id number]:127 Normal [facility] Urology Office/Clinic Noteon 09-10-2022 Urology Office/Clinic Note [...] this time Follow-up With When Contact Information Sugey Arteaga MD, JIML, URO In 6 months Additional Instructions: w/PSA Patient Education Prostate-Specific Antigen Test Benign Prostatic Hyperplasia Camille Lopez, personally scribed for Dr. Arteaga on 09/10/2022 10:17:45. . Documentation recorded by the scribCamille lemons, accurately reflects the services(s) I performed and decisions made by me. Authenticated by Dr. Arteaga on 09/10/2022 17:54:12. Problem List/Past Medical History Ongoing Anticoagulant long-term use BPH with urinary obstruction ED (erectile dysfunction) Elevated PSA Feeling of incomplete bladder emptying Former (more content not included)... Normal [facility] Comment on above: Result Comment: Elec tronically Signed By: Sugey Arteaga MD\.br\Date and Time Signed: 09/10/22 17:54 EDT\.br\Electronically Co-Signed By: Camille Santo\.br\Date and Time Co-Signed: 09/10/22 10:18 EDT BOX TEST SENT OUTon 08-20-19 23 SENT TO REF LAB 08/19/2022 Normal [facility] Comment on above: Performed By: #### B OX #### [facility] [address] [place] [address] Dr. Yogi Naidu CBC AUTO DIFFon 08-19-2022 BASO # 0.1 103/ul Normal 0.0-0.1 [facility] Comment on above: Performed By: #### C MP, MG, PHOS, GGT #### [facility] [address] [place] [address] Dr. Yogi Naidu Basophils/100 WBC (Bld) 0.9 % Normal 0.2-2.0 [facility] Comment on above: Performed By: #### C MP, MG, PHOS, GGT #### [facility] [address] [place] [address] Dr. Yogi Naidu EO # 0.2 103/ul Normal 0.0-0.7 [facility] Comment on above: Performed By: #### C MP, MG, PHOS, GGT #### [facility] [address] [place] [address] Dr. Yogi Niadu Eosinophils/100 WBC (Bld) 2.8 % Normal 0.9-7.0 [facility] Comment on above: Performed By: #### C MP, MG, PHOS, GGT #### [facility] [address] [place] [address] Dr. Yogi Naidu Erythrocyte distribution width (RBC) [Ratio] 13.9 % Normal 11.0-15.0 [facility] Comment on above: Performed By: #### C MP, MG, PHOS, GGT #### [facility] [address] [place] [address] Dr. Yogi Naidu Hematocrit (Bld) [Volume fraction] 46.0 % Normal 42.0-54.0 [facility] Comment on above: Performed By: #### C MP, MG, PHOS, GGT #### [facility] [address] [place] [address] Dr. Yogi Naiud Hemoglobin (Bld) [Mass/Vol] 15.6 g/dL Normal 14.0-18.0 [facility] Comment on above: Performed By: #### C MP, MG, PHOS, GGT #### [facility] [address] [place] [address] Dr. Yogi Naidu IG # 0.02 10e3/ul Normal 0.00-0.03 [facility] Comment on above: Performed By: #### C MP, MG, PHOS, GGT #### [facility] [address] [place] [address] Dr. Yogi Naidu IG % 0.3 % Normal 0.0-0.5 [facility] Comment on above: Performed By: #### C MP, MG, PHOS, GGT #### [facility] [address] [place] [address] Dr. Yogi Naidu LYMPH # 0.9 103/ul Critically low 1.2-3.8 [facility] Comment on above: Performed By: #### C MP, MG, PHOS, GGT #### [facility] [address] [place] [address] Dr. Yogi Naidu Lymphocytes/100 WBC (Bld) 12.8 % Critically low 20.5-60.0 [facility] Comment on above: Performed By: #### C MP, MG, PHOS, GGT #### [facility] [address] [place] [address] Dr. Yogi Naidu MANUAL DIFF REQ NO Normal [facility] Comment on above: Performed By: #### C MP, MG, PHOS, GGT #### [facility] [address] [place] [address] Dr. Yogi Naidu MCH (RBC) [Entitic mass] 29.7 pg Normal 25.9-34.0 [facility] Comment on above: Performed By: #### C MP, MG, PHOS, GGT #### [facility] [address] [place] [address] Dr. Yogi Naidu MCHC (RBC) [Mass/Vol] 33.9 g/dL Normal 29.9-35.2 [facility] Comment on above: Performed By: #### C MP, MG, PHOS, GGT #### [facility] [address] [place] [address] Dr. Yogi Naidu MCV (RBC) [Entitic vol] 87.6 fL Normal 80.0-94.0 [facility] Comment on above: Performed By: #### C MP, MG, PHOS, GGT #### [facility] [address] [place] [address] Dr. Yogi Naidu MONO # 0.4 103/ul Normal 0.3-0.8 [facility] Comment on above: Performed By: #### C MP, MG, PHOS, GGT #### [facility] [address] [place] [address] Dr. Yogi Naidu Monocytes/100 WBC (Bld) 6.0 % Normal 1.7-12.0 [facility] Comment on above: Performed By: #### C MP, MG, PHOS, GGT #### [facility] [address] [place] [address] Dr. Yogi Naidu NEUT # 5.2 103/ul Normal 1.4-6.5 [facility] Comment on above: Performed By: #### C MP, MG, PHOS, GGT #### [facility] [address] [place] [address] Dr. Yogi Naidu Neutrophils/100 WBC (Bld) 77.2 % Critically high 43.0-75.0 [facility] Comment on above: Performed By: #### C MP, MG, PHOS, GGT #### [facility] [address] [place] [address] Dr. Yogi Naidu Platelet mean volume (Bld) [Entitic vol] 9.3 fL Critically low 9.5-13.5 [facility] Comment on above: Performed By: #### C MP, MG, PHOS, GGT #### [facility] [address] [place] [address] Dr. Yogi Naidu PLT 215 103/ul Normal 150-450 [facility] Comment on above: Performed By: #### C MP, MG, PHOS, GGT #### [facility] [address] [place] [address] Dr. Yogi Naidu RBC 5.25 106/ul Normal 4.70-6.10 [facility] Comment on above: Performed By: #### C MP, MG, PHOS, GGT #### [facility] [address] [place] [address] Dr. Yogi Naidu WBC 6.8 103/ul Normal 4.0-11.0 [facility] Comment on above: Performed By: #### C MP, MG, PHOS, GGT #### [facility] [address] [place] [address] Dr. Yogi Naidu GGTon 08-19-2022 Gamma glutamyl transferase [Catalytic activity/Vol] 32 U/L Normal 15-85 [facility] Comment on above: Performed By: #### C MP, MG, PHOS, GGT #### [facility] [address] [place] [address] Dr. Yogi Naidu Lab Reportson 08-19-2022 Lab Reports [id number] 0CD:127 Normal [facility] MAGNESIUMon 08-19-2022 Magnesium [Mass/Vol] 1.5 mg/dL Critically low 1.8-2.4 [facility] Comment on above: Performed By: #### C MP, MG, PHOS, GGT #### [facility] [address] [place] [address] Dr. Yogi Naidu PHOSPHORUSon 08-19-2022 Phosphate [Mass/Vol] 3.0 mg/dL Normal 2.6-4.7 [facility] Comment on above: Performed By: #### C MP, MG, PHOS, GGT #### [facility] [address] [place] [address] Dr. Yogi Naidu PROF 14(COMP METB)on 023 Albumin [Mass/Vol] 4.2 g/dL Normal 3.4-5.0 [facility] Comment on above: Performed By: #### C MP, MG, PHOS, GGT #### [facility] [address] [place] [address] Dr. Yogi Naidu Albumin/Globulin [Mass ratio] 1.7 {ratio} Normal [facility] Comment on above: Performed By: #### C MP, MG, PHOS, GGT #### [facility] [address] [place] [address] Dr. Yogi Naidu ALP [Catalytic activity/Vol] 68 U/L Normal 46-116 [facility] Comment on above: Performed By: #### C MP, MG, PHOS, GGT #### [facility] [address] [place] [address] Dr. Yogi Naidu ALT [Catalytic activity/Vol] 16 U/L Normal 16-63 [facility] Comment on above: Performed By: #### C MP, MG, PHOS, GGT #### [facility] [address] [place] [address] Dr. Yogi Naidu Anion gap [Moles/Vol] 12.4 mmol/L Normal [facility] Comment on above: Performed By: #### C MP, MG, PHOS, GGT #### [facility] [address] [place] [address] Dr. Yogi Naidu AST [Catalytic activity/Vol] 16 U/L Normal 15-37 [facility] Comment on above: Performed By: #### C MP, MG, PHOS, GGT #### [facility] [address] [place] [address] Dr. Yogi Naidu Bilirubin [Mass/Vol] 0.7 mg/dL Normal 0.2-1.0 [facility] Comment on above: Performed By: #### C MP, MG, PHOS, GGT #### [facility] [address] [place] [address] Dr. Yogi Naidu Calcium [Mass/Vol] 9.2 mg/dL Normal 8.5-10.1 [facility] Comment on above: Performed By: #### C MP, MG, PHOS, GGT #### [facility] [address] [address] [address] Yogi Naidu Chloride [Moles/Vol] 110 mmol/L Critically high 98-107 [facility] Comment on above: Performed By: #### C MP, MG, PHOS, GGT #### [facility] [address] [address] [address] Yogi Naidu CO2 [Moles/Vol] 26.6 mmol/L Normal 21.0-32.0 [facility] Comment on above: Performed By: #### C MP, MG, PHOS, GGT #### [facility] [address] [address] [address] Yogi Naidu Creatinine [Mass/Vol] 1.08 mg/dL Normal 0.70-1.30 [facility] Comment on above: Performed By: #### C MP, MG, PHOS, GGT #### [facility] [address] [place] [address] Dr. Yogi Naidu EGFR-AF TOGOLESE >60 Normal >=60 [facility] Comment on above: Performed By: #### C MP, MG, PHOS, GGT #### [facility] [address] [address] [address] Yogi Naidu EGFR-NON AF TOGOLESE >60 Normal >=60 [facility] Comment on above: Performed By: #### C MP, MG, PHOS, GGT #### [facility] [address] [address] [address] Yogi Naidu Globulin (S) [Mass/Vol] 2.4 g/dL Normal [facility] Comment on above: Performed By: #### C MP, MG, PHOS, GGT #### [facility] [address] [address] [address] Yogi Naidu Glucose [Mass/Vol] 100 mg/dL Normal 74-106 [facility] Comment on above: Performed By: #### C MP, MG, PHOS, GGT #### [facility] [address] [place] [address] Dr. Yogi Naidu Potassium [Moles/Vol] 4.5 mmol/L Normal 3.5-5.1 [facility] Comment on above: Performed By: #### C MP, MG, PHOS, GGT #### [facility] [address] [place] [address] Dr. Yogi Naidu Protein [Mass/Vol] 6.6 g/dL Normal 6.4-8.2 [facility] Comment on above: Performed By: #### C MP, MG, PHOS, GGT #### [facility] [address] [place] [address] Dr. Yogi Naidu Sodium [Moles/Vol] 145 mmol/L Normal 136-145 [facility] Comment on above: Performed By: #### C MP, MG, PHOS, GGT #### [facility] [address] [place] [address] Dr. Yogi Naidu Urea nitrogen [Mass/Vol] 22.0 mg/dL Critically high 7.0-18 .0 [facility] Comment on above: Performed By: #### C MP, MG, PHOS, GGT #### [facility] [address] [place] [address] Dr. Yogi Naidu Urea nitrogen/Creatinine [Mass ratio] 20.3 mg/mg Normal [facility] Comment on above: Performed By: #### C MP, MG, PHOS, GGT #### [facility] [address] [place] [address] Dr. Yogi Naidu Tacrolimus Bld-[facility] 2022 Tacrolimus (Bld) [Mass/Vol] 7.8 ng/mL Normal 5.0-20.0 [facility] Comment on above: Order Comment: Speci men [...] situation. Test performed by chemiluminescent immunoassay using [employer] Al[employer] i. Performed By: #### 1 1253-2 #### [facility] CLIA [id number] [facility] [place] [address] [place] CNCOon 08-12-2022 CNCO Letter Text Normal [facility] Provider Letteron 08-07-2022 Provider Letter August 07, 2022 SUSAN SHERMAN [address] [place] [address] SUSAN SHERMAN 1950 Dear Mr. Sherman, We [...] rescheduled at your earliest convenience. Please call [phone] Thank you for your prompt attention to this matter. Sincerely, [facility] [address], [place] [address] x 2 Normal [facility] HEP C RNA BY PCR QUANT (NON- GRAPHICAL) Won 07-23-2022 HCV Genotype RTNI Normal [facility] Comment on above: Result Comment: Not indicated Performed By: #### MERLE CULVER #### [facility] [address] [place] [address] Dr. Yogi Naidu HCV log10 UPTCAL Normal [facility] Comment on above: Result Comment: Unab le to calculate result since non-numeric result obtained for component test. Performed By: #### MERLE CULVER #### [facility] [address] [place] [address] Dr. Yogi Naidu Hepatitis C Quantitation Not detected Normal [facility] Comment on above: Performed By: #### MERLE CULVER #### [facility] [address] [place] [address] Dr. Yogi Naidu Test Information: Comment Normal [facility] Comment on above: Result Comment: The quantitative range of this assay is 15 IU/mL to 100 million IU/mL. Performed By: #### MERLE CULVER #### [facility] [address] [place] [address] Dr. Yogi Naidu BOX TEST SENT OUTon 07-22-19 SENT TO REF LAB 07/22/2022 Normal [facility] Comment on above: Performed By: #### B OX #### [facility] [address] [place] [address] Dr. Yogi Naidu CBC AUTO DIFFon 07-22-2022 BASO # 0.1 103/ul Normal 0.0-0.1 [facility] Comment on above: Performed By: #### C BC #### [facility] [address] [place] [address] Dr. Yogi Naidu Basophils/100 WBC (Bld) 1.0 % Normal 0.2-2.0 [facility] Comment on above: Performed By: #### C BC #### [facility] [address] [place] [address] Dr. Yogi Naidu EO # 0.2 103/ul Normal 0.0-0.7 [facility] Comment on above: Performed By: #### C BC #### [facility] [address] [place] [address] Dr. Yogi Naidu Eosinophils/100 WBC (Bld) 2.5 % Normal 0.9-7.0 [facility] Comment on above: Performed By: #### C BC #### [facility] [address] [place] [address] Dr. Yogi Naidu Erythrocyte distribution width (RBC) [Ratio] 14.1 % Normal 11.0-15.0 [facility] Comment on above: Performed By: #### C BC #### [facility] [address] [place] [address] Dr. Yogi Naidu Hematocrit (Bld) [Volume fraction] 50.1 % Normal 42.0-54.0 [facility] Comment on above: Performed By: #### C BC #### [facility] [address] [place] [address] Dr. Yogi Naidu Hemoglobin (Bld) [Mass/Vol] 16.2 g/dL Normal 14.0-18.0 [facility] Comment on above: Performed By: #### C BC #### [facility] [address] [place] [address] Dr. Yogi Naidu IG # 0.03 10e3/ul Normal 0.00-0.03 [facility] Comment on above: Performed By: #### C BC #### [facility] [address] [place] [address] Dr. Yogi Naidu IG % 0.4 % Normal 0.0-0.5 [facility] Comment on above: Performed By: #### C BC #### [facility] [address] [place] [address] Dr. Yogi Naidu LYMPH # 0.7 103/ul Critically low 1.2-3.8 [facility] Comment on above: Performed By: #### C BC #### [facility] [address] [place] [address] Dr. Yogi Naidu Lymphocytes/100 WBC (Bld) 11.0 % Critically low 20.5-60.0 [facility] Comment on above: Performed By: #### C BC #### [facility] [address] [place] [address] Dr. Yogi Naidu MANUAL DIFF REQ NO Normal [facility] Comment on above: Performed By: #### C BC #### [facility] [address] [place] [address] Dr. Yogi Naidu MCH (RBC) [Entitic mass] 29.9 pg Normal 25.9-34.0 [facility] Comment on above: Performed By: #### C BC #### [facility] [address] [place] [address] Dr. Yogi Naidu MCHC (RBC) [Mass/Vol] 32.3 g/dL Normal 29.9-35.2 [facility] Comment on above: Performed By: #### C BC #### [facility] [address] [place] [address] Dr. Yogi Naidu MCV (RBC) [Entitic vol] 92.6 fL Normal 80.0-94.0 [facility] Comment on above: Performed By: #### C BC #### [facility] [address] [place] [address] Dr. Yogi Naidu MONO # 0.4 103/ul Normal 0.3-0.8 [facility] Comment on above: Performed By: #### C BC #### [facility] [address] [place] [address] Dr. Yogi Naidu Monocytes/100 WBC (Bld) 5.7 % Normal 1.7-12.0 [facility] Comment on above: Performed By: #### C BC #### [facility] [address] [place] [address] Dr. Yogi Naidu NEUT # 5.3 103/ul Normal 1.4-6.5 [facility] Comment on above: Performed By: #### C BC #### [facility] [address] [place] [address] Dr. Yogi Naidu Neutrophils/100 WBC (Bld) 79.4 % Critically high 43.0-75.0 [facility] Comment on above: Performed By: #### C BC #### [facility] [address] [place] [address] Dr. Yogi Naidu Platelet mean volume (Bld) [Entitic vol] 9.7 fL Normal 9.5-13.5 [facility] Comment on above: Performed By: #### C BC #### [facility] [address] [place] [address] Dr. Yogi Naidu PLT 206 103/ul Normal 150-450 [facility] Comment on above: Performed By: #### C BC #### [facility] [address] [place] [address] Dr. Yogi Naidu RBC 5.41 106/ul Normal 4.70-6.10 [facility] Comment on above: Performed By: #### C BC #### [facility] [address] [place] [address] Dr. Yogi Naidu WBC 6.7 103/ul Normal 4.0-11.0 [facility] Comment on above: Performed By: #### C BC #### [facility] [address] [place] [address] Dr. Yogi Naidu GGTon 07-22-2022 Gamma glutamyl transferase [Catalytic activity/Vol] 30 U/L Normal 15-85 [facility] Comment on above: Performed By: #### B OX #### [facility] [address] [place] [address] Dr. Yogi Naidu LIPID PROFILEon 07-22-2022 CHOL-HDL RATIO NORM SEE BELOW Normal [facility] Comment on above: Result Comment: 3.3 - 4.4 LOW RISK 4.4 - 7.1 AVERAGE RISK 7.1 - 11.0 MODERATE RISK >11.0 HIGH RISK Performed By: #### C MP, MG, PHOS, GGT #### [facility] [address] [place] [address] Dr. Yogi Naidu Cholesterol [Mass/Vol] 188 mg/dL Normal <=200 [facility] Comment on above: Performed By: #### C MP, MG, PHOS, GGT #### [facility] [address] [place] [address] Dr. Yogi Naidu Cholesterol in HDL [Mass/Vol] 48 mg/dL Normal 40-60 [facility] Comment on above: Performed By: #### C MP, MG, PHOS, GGT #### [facility] [address] [place] [address] Dr. Yogi Naidu Cholesterol in LDL [Mass/Vol] 123.8 mg/dL Normal [facility] Comment on above: Performed By: #### C MP, MG, PHOS, GGT #### [facility] [address] [place] [address] Dr. Yogi Naidu Cholesterol.total/Choles terol in HDL [Mass ratio] 3.9 {ratio} Normal [facility] Comment on above: Performed By: #### C MP, MG, PHOS, GGT #### [facility] [address] [place] [address] Dr. Yogi Naidu HDL NORMAL > or = 60 mg/dl - LO W CARDIOVASCULAR RISK <40 mg/dl - HIGH CARDIOVASCULAR RISK Normal [facility] Comment on above: Performed By: #### C MP, MG, PHOS, GGT #### [facility] [address] [place] [address] Dr. Yogi Naidu LDL CALC NORMAL SEE BELOW Normal [facility] Comment on above: Result Comment: <100 mg/dl OPTIMAL 100 - 129 mg/dl NEAR OR ABOVE OPTIMAL 130 - 159 mg/dl BORDERLINE HIGH 160 - 189 mg/dl HIGH >190 mg/dl VERY HIGH Performed By: #### C MP, MG, PHOS, GGT #### [facility] [address] [place] [address] Dr. Yogi Naidu Triglyceride [Mass/Vol] 81 mg/dL Normal <=150 [facility] Comment on above: Performed By: #### C MP, MG, PHOS, GGT #### [facility] [address] [place] [address] Dr. Yogi Naidu VLDL CALC 16.2 mg/dL Normal [facility] Comment on above: Performed By: #### C MP, MG, PHOS, GGT #### [facility] [address] [place] [address] Dr. Yogi Naidu MAGNESIUMon 07-22-2022 Magnesium [Mass/Vol] 1.7 mg/dL Critically low 1.8-2.4 [facility] Comment on above: Performed By: #### B OX #### [facility] [address] [place] [address] Dr. Yogi Naidu PHOSPHORUSon 07-22-2022 Phosphate [Mass/Vol] 2.8 mg/dL Normal 2.6-4.7 [facility] Comment on above: Performed By: #### C MP, MG, PHOS, GGT #### [facility] [address] [place] [address] Dr. Yogi Naidu PROF 14(COMP METB)on 023 Albumin [Mass/Vol] 4.2 g/dL Normal 3.4-5.0 [facility] Comment on above: Performed By: #### C MP, MG, PHOS, GGT #### [facility] [address] [place] [address] Dr. Yogi Naidu Albumin/Globulin [Mass ratio] 1.7 {ratio} Normal [facility] Comment on above: Performed By: #### C MP, MG, PHOS, GGT #### [facility] [address] [place] [address] Dr. Yogi Naidu ALP [Catalytic activity/Vol] 72 U/L Normal 46-116 [facility] Comment on above: Performed By: #### C MP, MG, PHOS, GGT #### [facility] [address] [place] [address] Dr. Yogi Naidu ALT [Catalytic activity/Vol] 14 U/L Critically low 16-63 [facility] Comment on above: Performed By: #### C MP, MG, PHOS, GGT #### [facility] [address] [place] [address] Dr. Yogi Naidu Anion gap [Moles/Vol] 11.1 mmol/L Normal [facility] Comment on above: Performed By: #### C MP, MG, PHOS, GGT #### [facility] [address] [place] [address] Dr. Yogi Naidu AST [Catalytic activity/Vol] 11 U/L Critically low 15-37 [facility] Comment on above: Performed By: #### C MP, MG, PHOS, GGT #### [facility] [address] [place] [address] Dr. Yogi Naidu Bilirubin [Mass/Vol] 0.7 mg/dL Normal 0.2-1.0 [facility] Comment on above: Performed By: #### C MP, MG, PHOS, GGT #### [facility] [address] [place] [address] Dr. Yogi Naidu Calcium [Mass/Vol] 9.3 mg/dL Normal 8.5-10.1 [facility] Comment on above: Performed By: #### C MP, MG, PHOS, GGT #### [facility] [address] [place] [address] Dr. Yogi Naidu Chloride [Moles/Vol] 106 mmol/L Normal 98-107 [facility] Comment on above: Performed By: #### C MP, MG, PHOS, GGT #### [facility] [address] [place] [address] Dr. Yogi Naidu CO2 [Moles/Vol] 29.2 mmol/L Normal 21.0-32.0 [facility] Comment on above: Performed By: #### C MP, MG, PHOS, GGT #### [facility] [facility] [address] [place] [address] Dr. Yogi Naidu Creatinine [Mass/Vol] 1.08 mg/dL Normal 0.70-1.30 [facility] Comment on above: Performed By: #### C MP, MG, PHOS, GGT #### [facility] [address] [place] [address] Dr. Yogi Naidu EGFR-AF TOGOLESE >60 Normal >=60 [facility] Comment on above: Performed By: #### C MP, MG, PHOS, GGT #### [facility] [address] [place] [address] Dr. Yogi Naidu EGFR-NON AF TOGOLESE >60 Normal >=60 [facility] Comment on above: Performed By: #### C MP, MG, PHOS, GGT #### [facility] [address] [place] [address] Dr. Yogi Naidu Globulin (S) [Mass/Vol] 2.5 g/dL Normal [facility] Comment on above: Performed By: #### C MP, MG, PHOS, GGT #### [facility] [address] [place] [address] Dr. Yogi Naidu Glucose [Mass/Vol] 90 mg/dL Normal 74-106 [facility] Comment on above: Performed By: #### C MP, MG, PHOS, GGT #### [facility] [address] [place] [address] Dr. Yogi Niadu Potassium [Moles/Vol] 4.3 mmol/L Normal 3.5-5.1 [facility] Comment on above: Performed By: #### C MP, MG, PHOS, GGT #### [facility] [address] [place] [address] Dr. Yogi Naidu Protein [Mass/Vol] 6.7 g/dL Normal 6.4-8.2 [facility] Comment on above: Performed By: #### C MP, MG, PHOS, GGT #### [facility] [address] [place] [address] Dr. Yogi Naidu Sodium [Moles/Vol] 142 mmol/L Normal 136-145 [facility] Comment on above: Performed By: #### C MP, MG, PHOS, GGT #### [facility] [address] [place] [address] Dr. Yogi Naidu Urea nitrogen [Mass/Vol] 23.0 mg/dL Critically high 7.0-18 .0 [facility] Comment on above: Performed By: #### C MP, MG, PHOS, GGT #### [facility] [address] [place] [address] Dr. Yogi Naidu Urea nitrogen/Creatinine [Mass ratio] 21.3 mg/mg Normal [facility] Comment on above: Performed By: #### C MP, MG, PHOS, GGT #### [facility] [address] [place] [address] Dr. Yogi Naidu BOX TEST SENT OUTon 06-16-19 23 SENT TO REF LAB 06/16/2022 [facility] Comment on above: Performed By: #### E MERLE DE OLIVEIRA #### [facility] [address] [place] [address] Dr. Yogi Naidu CBC AUTO DIFFon 06-16-2022 BASO # 0.1 103/ul Normal 0.0-0.1 [facility] Comment on above: Performed By: #### C BC #### [facility] [address] [place] [address] Dr. Yogi Naidu Basophils/100 WBC (Bld) 1.0 % Normal 0.2-2.0 [facility] Comment on above: Performed By: #### C BC #### [facility] [address] [place] [address] Dr. Yogi Naidu EO # 0.2 103/ul Normal 0.0-0.7 [facility] Comment on above: Performed By: #### C BC #### [facility] [address] [place] [address] Dr. Yogi Naidu Eosinophils/100 WBC (Bld) 2.5 % Normal 0.9-7.0 [facility] Comment on above: Performed By: #### C BC #### [facility] [address] [place] [address] Dr. Yogi Naidu Erythrocyte distribution width (RBC) [Ratio] 14.3 % Normal 11.0-15.0 [facility] Comment on above: Performed By: #### C BC #### [facility] [address] [place] [address] Dr. Yogi Naidu Hematocrit (Bld) [Volume fraction] 44.7 % Normal 42.0-54.0 [facility] Comment on above: Performed By: #### C BC #### [facility] [address] [place] [address] Dr. Yogi Naidu Hemoglobin (Bld) [Mass/Vol] 14.8 g/dL Normal 14.0-18.0 [facility] Comment on above: Performed By: #### C BC #### [facility] [address] [place] [address] Dr. Yogi Naidu IG # 0.01 10e3/ul Normal 0.00-0.03 [facility] Comment on above: Performed By: #### C BC #### [facility] [address] [place] [address] Dr. Yogi Naidu IG % 0.2 % Normal 0.0-0.5 [facility] Comment on above: Performed By: #### C BC #### [facility] [address] [place] [address] Dr. Yogi Naidu LYMPH # 0.7 103/ul Critically low 1.2-3.8 [facility] Comment on above: Performed By: #### C BC #### [facility] [address] [place] [address] Dr. Yogi Naidu Lymphocytes/100 WBC (Bld) 12.4 % Critically low 20.5-60.0 [facility] Comment on above: Performed By: #### C BC #### [facility] [address] [place] [address] Dr. Yogi Naidu MANUAL DIFF REQ NO Normal [facility] Comment on above: Performed By: #### C BC #### [facility] [address] [place] [address] Dr. Yogi Naidu MCH (RBC) [Entitic mass] 29.5 pg Normal 25.9-34.0 [facility] Comment on above: Performed By: #### C BC #### [facility] [address] [place] [address] Dr. Yogi Naidu MCHC (RBC) [Mass/Vol] 33.1 g/dL Normal 29.9-35.2 [facility] Comment on above: Performed By: #### C BC #### [facility] [address] [place] [address] Dr. Yogi Naidu MCV (RBC) [Entitic vol] 89.2 fL Normal 80.0-94.0 [facility] Comment on above: Performed By: #### C BC #### [facility] [address] [place] [address] Dr. Yogi Naidu MONO # 0.4 103/ul Normal 0.3-0.8 [facility] Comment on above: Performed By: #### C BC #### [facility] [address] [place] [address] Dr. Yogi Naidu Monocytes/100 WBC (Bld) 5.9 % Normal 1.7-12.0 [facility] Comment on above: Performed By: #### C BC #### [facility] [address] [place] [address] Dr. Yogi Naidu NEUT # 4.6 103/ul Normal 1.4-6.5 [facility] Comment on above: Performed By: #### C BC #### [facility] [address] [place] [address] Dr. Yogi Naidu Neutrophils/100 WBC (Bld) 78.0 % Critically high 43.0-75.0 [facility] Comment on above: Performed By: #### C BC #### [facility] [address] [place] [address] Dr. Yogi Naidu Platelet mean volume (Bld) [Entitic vol] 9.1 fL Critically low 9.5-13.5 [facility] Comment on above: Performed By: #### C BC #### [facility] [address] [place] [address] Dr. Yogi Naidu PLT 190 103/ul Normal 150-450 [facility] Comment on above: Performed By: #### C BC #### [facility] [address] [place] [address] Dr. Yogi Naidu RBC 5.01 106/ul Normal 4.70-6.10 [facility] Comment on above: Performed By: #### C BC #### [facility] [address] [place] [address] Dr. Yogi Naidu WBC 5.9 103/ul Normal 4.0-11.0 [facility] Comment on above: Performed By: #### C BC #### [facility] [address] [place] [address] Dr. Yogi Naidu GGTon 06-16-2022 Gamma glutamyl transferase [Catalytic activity/Vol] 28 U/L Normal 15-85 [facility] Comment on above: Performed By: #### C MP, MG, PHOS, GGT #### [facility] [address] [place] [address] Dr. Yogi Naidu MAGNESIUMon 06-16-2022 Magnesium [Mass/Vol] 1.6 mg/dL Critically low 1.8-2.4 [facility] Comment on above: Performed By: #### C MP, MG, PHOS, GGT #### [facility] [address] [place] [address] Dr. Yogi Naidu PHOSPHORUSon 06-16-2022 Phosphate [Mass/Vol] 3.2 mg/dL Normal 2.6-4.7 [facility] Comment on above: Performed By: #### C MP, MG, PHOS, GGT #### [facility] [address] [place] [address] Dr. Yogi Naidu PROF 14(COMP METB)on 023 Albumin [Mass/Vol] 3.8 g/dL Normal 3.4-5.0 [facility] Comment on above: Performed By: #### C MP, MG, PHOS, GGT #### [facility] [address] [address] [address] Yogi Naidu Albumin/Globulin [Mass ratio] 1.5 {ratio} Normal [facility] Comment on above: Performed By: #### C MP, MG, PHOS, GGT #### [facility] [address] [place] [address] Dr. Yogi Naidu ALP [Catalytic activity/Vol] 74 U/L Normal 46-116 [facility] Comment on above: Performed By: #### C MP, MG, PHOS, GGT #### [facility] [address] [place] [address] Dr. Yogi Naidu ALT [Catalytic activity/Vol] 13 U/L Critically low 16-63 [facility] Comment on above: Performed By: #### C MP, MG, PHOS, GGT #### [facility] [address] [place] [address] Dr. Yogi Naidu Anion gap [Moles/Vol] 10.8 mmol/L Normal [facility] Comment on above: Performed By: #### C MP, MG, PHOS, GGT #### [facility] [address] [place] [address] Dr. Yogi Naidu AST [Catalytic activity/Vol] 15 U/L Normal 15-37 [facility] Comment on above: Performed By: #### C MP, MG, PHOS, GGT #### [facility] [address] [place] [address] Dr. Yogi Naidu Bilirubin [Mass/Vol] 0.8 mg/dL Normal 0.2-1.0 [facility] Comment on above: Performed By: #### C MP, MG, PHOS, GGT #### [facility] [address] [place] [address] Dr. Yogi Naidu Calcium [Mass/Vol] 8.9 mg/dL Normal 8.5-10.1 [facility] Comment on above: Performed By: #### C MP, MG, PHOS, GGT #### [facility] [address] [place] [address] Dr. Yogi Naidu Chloride [Moles/Vol] 108 mmol/L Critically high 98-107 [facility] Comment on above: Performed By: #### C MP, MG, PHOS, GGT #### [facility] [address] [place] [address] Dr. Yogi Naidu CO2 [Moles/Vol] 27.6 mmol/L Normal 21.0-32.0 [facility] Comment on above: Performed By: #### C MP, MG, PHOS, GGT #### [facility] [address] [place] [address] Dr. Yogi Naidu Creatinine [Mass/Vol] 1.12 mg/dL Normal 0.70-1.30 [facility] Comment on above: Performed By: #### C MP, MG, PHOS, GGT #### [facility] [address] [place] [address] Dr. Yogi Naidu EGFR-AF TOGOLESE >60 Normal >=60 [facility] Comment on above: Performed By: #### C MP, MG, PHOS, GGT #### [facility] [address] [place] [address] Dr. Yogi Naidu EGFR-NON AF TOGOLESE >60 Normal >=60 [facility] Comment on above: Performed By: #### C MP, MG, PHOS, GGT #### [facility] [address] [place] [address] Dr. Yogi Naidu Globulin (S) [Mass/Vol] 2.5 g/dL Normal [facility] Comment on above: Performed By: #### C MP, MG, PHOS, GGT #### [facility] [address] [place] [address] Dr. Yogi Naidu Glucose [Mass/Vol] 95 mg/dL Normal 74-106 [facility] Comment on above: Performed By: #### C MP, MG, PHOS, GGT #### [facility] [address] [place] [address] Dr. Yogi Naidu Potassium [Moles/Vol] 4.4 mmol/L Normal 3.5-5.1 [facility] Comment on above: Performed By: #### C MP, MG, PHOS, GGT #### [facility] [address] [place] [address] Dr. Yogi Naidu Protein [Mass/Vol] 6.3 g/dL Critically low 6.4-8.2 [facility] Comment on above: Performed By: #### C MP, MG, PHOS, GGT #### [facility] [address] [place] [address] Dr. Yogi Naidu Sodium [Moles/Vol] 142 mmol/L Normal 136-145 [facility] Comment on above: Performed By: #### C MP, MG, PHOS, GGT #### [facility] [address] [place] [address] Dr. Yogi Naidu Urea nitrogen [Mass/Vol] 24.0 mg/dL Critically high 7.0-18 .0 [facility] Comment on above: Performed By: #### C MP, MG, PHOS, GGT #### [facility] [address] [place] [address] Dr. Yogi Naidu Urea nitrogen/Creatinine [Mass ratio] 21.4 mg/mg [facility] Comment on above: Performed By: #### C MP, MG, PHOS, GGT #### [facility] [address] [place] [address] Dr. Yogi Naidu BOX TEST SENT OUTon 05-19-20 22 SENT TO REF LAB 05/19/2022 Normal [facility] Comment on above: Performed By: #### E MERLE DE OLIVEIRA #### [facility] [address] [place] [address] Dr. Yogi Naidu CBC AUTO DIFFon 05-19-2022 BASO # 0.1 103/ul Normal 0.0-0.1 [facility] Comment on above: Performed By: #### C MP, MG, PHOS, GGT #### [facility] [address] [place] [address] Dr. Yogi Naidu Basophils/100 WBC (Bld) 1.2 % Normal 0.2-2.0 [facility] Comment on above: Performed By: #### C MP, MG, PHOS, GGT #### [facility] [address] [place] [address] Dr. Yogi Naidu EO # 0.3 103/ul Normal 0.0-0.7 [facility] Comment on above: Performed By: #### C MP, MG, PHOS, GGT #### [facility] [address] [place] [address] Dr. Yogi Naidu Eosinophils/100 WBC (Bld) 4.2 % Normal 0.9-7.0 [facility] Comment on above: Performed By: #### C MP, MG, PHOS, GGT #### [facility] [address] [place] [address] Dr. Yogi Naidu Erythrocyte distribution width (RBC) [Ratio] 14.2 % Normal 11.0-15.0 [facility] Comment on above: Performed By: #### C MP, MG, PHOS, GGT #### [facility] [address] [place] [address] Dr. Yogi Naidu Hematocrit (Bld) [Volume fraction] 45.5 % Normal 42.0-54.0 [facility] Comment on above: Performed By: #### C MP, MG, PHOS, GGT #### [facility] [address] [place] [address] Dr. Yogi Naidu Hemoglobin (Bld) [Mass/Vol] 15.3 g/dL Normal 14.0-18.0 [facility] Comment on above: Performed By: #### C MP, MG, PHOS, GGT #### [facility] [address] [place] [address] Dr. Yogi Naidu IG # 0.02 10e3/ul Normal 0.00-0.03 [facility] Comment on above: Performed By: #### C MP, MG, PHOS, GGT #### [facility] [address] [place] [address] Dr. Yogi Naidu IG % 0.3 % Normal 0.0-0.5 [facility] Comment on above: Performed By: #### C MP, MG, PHOS, GGT #### [facility] [address] [place] [address] Dr. Yogi Naidu LYMPH # 0.7 103/ul Critically low 1.2-3.8 [facility] Comment on above: Performed By: #### C MP, MG, PHOS, GGT #### [facility] [address] [place] [address] Dr. Yogi Naidu Lymphocytes/100 WBC (Bld) 10.1 % Critically low 20.5-60.0 [facility] Comment on above: Performed By: #### C MP, MG, PHOS, GGT #### [facility] [address] [place] [address] Dr. Yogi Naidu MANUAL DIFF REQ NO Normal [facility] Comment on above: Performed By: #### C MP, MG, PHOS, GGT #### [facility] [address] [place] [address] Dr. Yogi Naidu MCH (RBC) [Entitic mass] 29.7 pg Normal 25.9-34.0 [facility] Comment on above: Performed By: #### C MP, MG, PHOS, GGT #### [facility] [address] [place] [address] Dr. Yogi Naidu MCHC (RBC) [Mass/Vol] 33.6 g/dL Normal 29.9-35.2 [facility] Comment on above: Performed By: #### C MP, MG, PHOS, GGT #### [facility] [address] [place] [address] Dr. Yogi Naidu MCV (RBC) [Entitic vol] 88.3 fL Normal 80.0-94.0 [facility] Comment on above: Performed By: #### C MP, MG, PHOS, GGT #### [facility] [address] [place] [address] Dr. Yogi Naidu MONO # 0.5 103/ul Normal 0.3-0.8 [facility] Comment on above: Performed By: #### C MP, MG, PHOS, GGT #### [facility] [address] [place] [address] Dr. Yogi Naidu Monocytes/100 WBC (Bld) 6.6 % Normal 1.7-12.0 [facility] Comment on above: Performed By: #### C MP, MG, PHOS, GGT #### [facility] [address] [address] [address] Yogi Naidu NEUT # 5.7 103/ul Normal 1.4-6.5 [facility] Comment on above: Performed By: #### C MP, MG, PHOS, GGT #### [facility] [address] [place] [address] Dr. Yogi Naidu Neutrophils/100 WBC (Bld) 77.6 % Critically high 43.0-75.0 [facility] Comment on above: Performed By: #### C MP, MG, PHOS, GGT #### [facility] [address] [place] [address] Dr. Yogi Naidu Platelet mean volume (Bld) [Entitic vol] 9.3 fL Critically low 9.5-13.5 [facility] Comment on above: Performed By: #### C MP, MG, PHOS, GGT #### [facility] [address] [place] [address] Dr. Yogi Naidu PLT 176 103/ul Normal 150-450 [facility] Comment on above: Performed By: #### C MP, MG, PHOS, GGT #### [facility] [address] [place] [address] Dr. Yogi Naidu RBC 5.15 106/ul Normal 4.70-6.10 [facility] Comment on above: Performed By: #### C MP, MG, PHOS, GGT #### [facility] [address] [place] [address] Dr. Yogi Naidu WBC 7.3 103/ul Normal 4.0-11.0 [facility] Comment on above: Performed By: #### C MP, MG, PHOS, GGT #### [facility] [address] [place] [address] Dr. Yogi Naidu GGTon 05-19-2022 Gamma glutamyl transferase [Catalytic activity/Vol] 32 U/L Normal 15-85 [facility] Comment on above: Performed By: #### C BC #### [facility] [address] [place] [address] Dr. Yogi Naidu MAGNESIUMon 05-19-2022 Magnesium [Mass/Vol] 1.9 mg/dL Normal 1.8-2.4 [facility] Comment on above: Performed By: #### C BC #### [facility] [address] [place] [address] Dr. Yogi Naidu PHOSPHORUSon 05-19-2022 Phosphate [Mass/Vol] 2.9 mg/dL Normal 2.6-4.7 [facility] Comment on above: Performed By: #### C BC #### [facility] [address] [place] [address] Dr. Yogi Naidu PROF 14(COMP METB)on 022 Albumin [Mass/Vol] 4.0 g/dL Normal 3.4-5.0 [facility] Comment on above: Performed By: #### C BC #### [facility] [address] [place] [address] Dr. Yogi Naidu Albumin/Globulin [Mass ratio] 1.6 {ratio} Normal [facility] Comment on above: Performed By: #### C BC #### [facility] [address] [place] [address] Dr. Yogi Naidu ALP [Catalytic activity/Vol] 79 U/L Normal 46-116 [facility] Comment on above: Performed By: #### C BC #### [facility] [address] [place] [address] Dr. Yogi Naidu ALT [Catalytic activity/Vol] 13 U/L Critically low 16-63 [facility] Comment on above: Performed By: #### C BC #### [facility] [address] [place] [address] Dr. Yogi Naidu Anion gap [Moles/Vol] 10.1 mmol/L Normal [facility] Comment on above: Performed By: #### C BC #### [facility] [address] [place] [address] Dr. Yogi Naidu AST [Catalytic activity/Vol] 13 U/L Critically low 15-37 [facility] Comment on above: Performed By: #### C BC #### [facility] [address] [address] [address] Yogi Naidu Bilirubin [Mass/Vol] 0.6 mg/dL Normal 0.2-1.0 [facility] Comment on above: Performed By: #### C BC #### [facility] [address] [address] [address] Yogi Naidu Calcium [Mass/Vol] 8.9 mg/dL Normal 8.5-10.1 [facility] Comment on above: Performed By: #### C BC #### [facility] [address] [place] [address] Dr. Yogi Naidu Chloride [Moles/Vol] 108 mmol/L Critically high 98-107 [facility] Comment on above: Performed By: #### C BC #### [facility] [address] [place] [address] Dr. Yogi Naidu CO2 [Moles/Vol] 29.2 mmol/L Normal 21.0-32.0 [facility] Comment on above: Performed By: #### C BC #### [facility] [address] [place] [address] Dr. Yogi Naidu Creatinine [Mass/Vol] 0.98 mg/dL Normal 0.70-1.30 [facility] Comment on above: Performed By: #### C BC #### [facility] [address] [place] [address] Dr. Yogi Naidu EGFR-AF TOGOLESE >60 Normal >=60 [facility] Comment on above: Performed By: #### C BC #### [facility] [address] [place] [address] Dr. Yogi Naidu EGFR-NON AF TOGOLESE >60 Normal >=60 [facility] Comment on above: Performed By: #### C BC #### [facility] [address] [place] [address] Dr. Yogi Naidu Globulin (S) [Mass/Vol] 2.5 g/dL Normal [facility] Comment on above: Performed By: #### C BC #### [facility] [address] [address] [address] Yogi Naidu Glucose [Mass/Vol] 92 mg/dL Normal 74-106 [facility] Comment on above: Performed By: #### C BC #### [facility] [address] [address] [address] Yogi Naidu Potassium [Moles/Vol] 4.3 mmol/L Normal 3.5-5.1 [facility] Comment on above: Performed By: #### C BC #### [facility] [address] [address] [address] Yogi Naidu Protein [Mass/Vol] 6.5 g/dL Normal 6.4-8.2 [facility] Comment on above: Performed By: #### C BC #### [facility] [address] [place] [address] Dr. Yogi Naidu Sodium [Moles/Vol] 143 mmol/L Normal 136-145 [facility] Comment on above: Performed By: #### C BC #### [facility] [address] [place] [address] Dr. Yogi Naidu Urea nitrogen [Mass/Vol] 24.0 mg/dL Critically high 7.0-18 .0 [facility] Comment on above: Performed By: #### C BC #### [facility] [address] [place] [address] Dr. Yogi Naidu Urea nitrogen/Creatinine [Mass ratio] 24.5 mg/mg Normal [facility] Comment on above: Performed By: #### C BC #### [facility] [address] [place] [address] Dr. Yogi Naidu HEP C RNA BY PCR QUANT (NON- GRAPHICAL) Won 04-22-2022 HCV Genotype RTNI Normal [facility] Comment on above: Result Comment: Not indicated Performed By: #### C BC #### [facility] [address] [place] [address] Dr. Yogi Naidu HCV log10 UPTCAL Normal [facility] Comment on above: Result Comment: Unab le to calculate result since non-numeric result obtained for component test. Performed By: #### C BC #### [facility] [address] [place] [address] Dr. Yogi Naidu Hepatitis C Quantitation Not detected Normal [facility] Comment on above: Performed By: #### C BC #### [facility] [address] [place] [address] Dr. Yogi Naidu Test Information: Comment Normal [facility] Comment on above: Result Comment: The quantitative range of this assay is 15 IU/mL to 100 million IU/mL. Performed By: #### C BC #### [facility] [address] [place] [address] Dr. Yogi Naidu BOX TEST SENT OUTon 04-21-20 22 SENT TO REF LAB 04/21/2022 [facility] Comment on above: Performed By: #### C BC #### [facility] [address] [place] [address] Dr. Yogi Naidu CBC AUTO DIFFon 04-21-2022 BASO # 0.1 103/ul Normal 0.0-0.1 [facility] Comment on above: Performed By: #### C MP, MG, PHOS, GGT #### [facility] [address] [place] [address] Dr. Yogi Naidu Basophils/100 WBC (Bld) 1.0 % Normal 0.2-2.0 [facility] Comment on above: Performed By: #### C MP, MG, PHOS, GGT #### [facility] [address] [place] [address] Dr. Yogi Naidu EO # 0.2 103/ul Normal 0.0-0.7 [facility] Comment on above: Performed By: #### C MP, MG, PHOS, GGT #### [facility] [address] [place] [address] Dr. Yogi Naidu Eosinophils/100 WBC (Bld) 2.7 % Normal 0.9-7.0 [facility] Comment on above: Performed By: #### C MP, MG, PHOS, GGT #### [facility] [address] [place] [address] Dr. Yogi Naidu Erythrocyte distribution width (RBC) [Ratio] 14.2 % Normal 11.0-15.0 [facility] Comment on above: Performed By: #### C MP, MG, PHOS, GGT #### [facility] [address] [place] [address] Dr. Yogi Naidu Hematocrit (Bld) [Volume fraction] 46.5 % Normal 42.0-54.0 [facility] Comment on above: Performed By: #### C MP, MG, PHOS, GGT #### [facility] [address] [place] [address] Dr. Yogi Naidu Hemoglobin (Bld) [Mass/Vol] 15.6 g/dL Normal 14.0-18.0 [facility] Comment on above: Performed By: #### C MP, MG, PHOS, GGT #### [facility] [address] [place] [address] Dr. Yogi Naidu IG # 0.03 10e3/ul Normal 0.00-0.03 [facility] Comment on above: Performed By: #### C MP, MG, PHOS, GGT #### [facility] [address] [place] [address] Dr. Yogi Naidu IG % 0.4 % Normal 0.0-0.5 [facility] Comment on above: Performed By: #### C MP, MG, PHOS, GGT #### [facility] [address] [place] [address] Dr. Yogi Naidu LYMPH # 0.8 103/ul Critically low 1.2-3.8 [facility] Comment on above: Performed By: #### C MP, MG, PHOS, GGT #### [facility] [address] [place] [address] Dr. Yogi Naidu Lymphocytes/100 WBC (Bld) 11.3 % Critically low 20.5-60.0 [facility] Comment on above: Performed By: #### C MP, MG, PHOS, GGT #### [facility] [address] [place] [address] Dr. Yogi Naidu MANUAL DIFF REQ NO Normal [facility] Comment on above: Performed By: #### C MP, MG, PHOS, GGT #### [facility] [address] [place] [address] Dr. Yogi Naidu MCH (RBC) [Entitic mass] 30.1 pg Normal 25.9-34.0 [facility] Comment on above: Performed By: #### C MP, MG, PHOS, GGT #### [facility] [address] [place] [address] Dr. Yogi Naidu MCHC (RBC) [Mass/Vol] 33.5 g/dL Normal 29.9-35.2 [facility] Comment on above: Performed By: #### C MP, MG, PHOS, GGT #### [facility] [address] [place] [address] Dr. Yogi Naidu MCV (RBC) [Entitic vol] 89.6 fL Normal 80.0-94.0 [facility] Comment on above: Performed By: #### C MP, MG, PHOS, GGT #### [facility] [address] [place] [address] Dr. Yogi Naidu MONO # 0.4 103/ul Normal 0.3-0.8 [facility] Comment on above: Performed By: #### C MP, MG, PHOS, GGT #### [facility] [address] [place] [address] Dr. Yogi Naidu Monocytes/100 WBC (Bld) 6.0 % Normal 1.7-12.0 [facility] Comment on above: Performed By: #### C MP, MG, PHOS, GGT #### [facility] [address] [place] [address] Dr. Yogi Naidu NEUT # 5.5 103/ul Normal 1.4-6.5 [facility] Comment on above: Performed By: #### C MP, MG, PHOS, GGT #### [facility] [address] [place] [address] Dr. Yogi Naidu Neutrophils/100 WBC (Bld) 78.6 % Critically high 43.0-75.0 [facility] Comment on above: Performed By: #### C MP, MG, PHOS, GGT #### [facility] [address] [place] [address] Dr. Yogi Naidu Platelet mean volume (Bld) [Entitic vol] 10.1 fL Normal 9.5-13.5 [facility] Comment on above: Performed By: #### C MP, MG, PHOS, GGT #### [facility] [address] [place] [address] Dr. Yogi Naidu PLT 204 103/ul Normal 150-450 [facility] Comment on above: Performed By: #### C MP, MG, PHOS, GGT #### [facility] [address] [place] [address] Dr. Yogi Naidu RBC 5.19 106/ul Normal 4.70-6.10 [facility] Comment on above: Performed By: #### C MP, MG, PHOS, GGT #### [facility] [address] [place] [address] Dr. Yogi Naidu WBC 7.0 103/ul Normal 4.0-11.0 [facility] Comment on above: Performed By: #### C MP, MG, PHOS, GGT #### [facility] [address] [place] [address] Dr. Yogi Naidu GGTon 04-21-2022 Gamma glutamyl transferase [Catalytic activity/Vol] 34 U/L Normal 15-85 [facility] Comment on above: Performed By: #### MELRE CULVER #### [facility] [address] [place] [address] Dr. Yogi Naidu LIPID PROFILEon 04-21-2022 CHOL-HDL RATIO NORM SEE BELOW Normal [facility] Comment on above: Result Comment: 3.3 - 4.4 LOW RISK 4.4 - 7.1 AVERAGE RISK 7.1 - 11.0 MODERATE RISK >11.0 HIGH RISK Performed By: #### DASH CULVERRO #### [facility] [address] [place] [address] Dr. Yogi Naidu Cholesterol [Mass/Vol] 190 mg/dL Normal <=200 [facility] Comment on above: Performed By: #### DASH CULVERRO #### [facility] [address] [address] [address] Yogi Naidu Cholesterol in HDL [Mass/Vol] 49 mg/dL Normal 40-60 [facility] Comment on above: Performed By: #### Vesta DE OLIVEIRA UMICRO #### [facility] [address] [address] [address] Yogi Naidu Cholesterol in LDL [Mass/Vol] 127.8 mg/dL Normal [facility] Comment on above: Performed By: #### Vesta DE OLIVEIRA UMICRO #### [facility] [address] [place] [address] Dr. Yogi Naidu Cholesterol.total/Choles terol in HDL [Mass ratio] 3.9 {ratio} Normal [facility] Comment on above: Performed By: #### Vesta DE OLIVEIRA UMICRO #### [facility] [address] [place] [address] Dr. Yogi Naidu HDL NORMAL > or = 60 mg/dl - LO W CARDIOVASCULAR RISK <40 mg/dl - HIGH CARDIOVASCULAR RISK Normal [facility] Comment on above: Performed By: #### Vesta DE OLIVEIRA UMICRO #### [facility] [address] [place] [address] Dr. Yogi Naidu LDL CALC NORMAL SEE BELOW Normal [facility] Comment on above: Result Comment: <100 mg/dl OPTIMAL 100 - 129 mg/dl NEAR OR ABOVE OPTIMAL 130 - 159 mg/dl BORDERLINE HIGH 160 - 189 mg/dl HIGH >190 mg/dl VERY HIGH Performed By: #### Vesta DE OLIVEIRA UMICRO #### [facility] [address] [place] [address] Dr. Yogi Naidu Triglyceride [Mass/Vol] 66 mg/dL Normal <=150 [facility] Comment on above: Performed By: #### Vesta DE OLIVEIRA UMICRO #### [facility] [address] [place] [address] Dr. Yogi Naidu VLDL CALC 13.2 mg/dL Normal [facility] Comment on above: Performed By: #### Vesta DE OLIVEIRA UMICRO #### [facility] [address] [place] [address] Dr. Yogi Naidu MAGNESIUMon 04-21-2022 Magnesium [Mass/Vol] 1.8 mg/dL Normal 1.8-2.4 [facility] Comment on above: Performed By: #### DASH CULVERRO #### [facility] [address] [place] [address] Dr. Yogi Naidu PHOSPHORUSon 04-21-2022 Phosphate [Mass/Vol] 3.4 mg/dL Normal 2.6-4.7 [facility] Comment on above: Performed By: #### Vesta DE OLIVEIRA UMICRO #### [facility] [address] [place] [address] Dr. Yogi Naidu PROF 14(COMP METB)on 022 Albumin [Mass/Vol] 4.0 g/dL Normal 3.4-5.0 [facility] Comment on above: Performed By: #### DASH CULVERRO #### [facility] [address] [place] [address] Dr. Yogi Naidu Albumin/Globulin [Mass ratio] 1.6 {ratio} Normal [facility] Comment on above: Performed By: #### Vesta DE OLIVEIRA UMICRO #### [facility] [address] [place] [address] Dr. Yogi Naidu ALP [Catalytic activity/Vol] 81 U/L Normal 46-116 [facility] Comment on above: Performed By: #### Vesta DE OLIVEIRA UMBERNARDARO #### [facility] [address] [place] [address] Dr. Yogi Naidu ALT [Catalytic activity/Vol] 14 U/L Critically low 16-63 [facility] Comment on above: Performed By: #### Vesta DE OLIVEIRA UMICRO #### [facility] [address] [place] [address] Dr. Yogi Naidu Anion gap [Moles/Vol] 8.8 mmol/L Normal [facility] Comment on above: Performed By: #### Vesta DE OLIVEIRA UMICRO #### [facility] [address] [place] [address] Dr. Yogi Naidu AST [Catalytic activity/Vol] 15 U/L Normal 15-37 [facility] Comment on above: Performed By: #### MERLE CULVER #### [facility] [address] [place] [address] Dr. Yogi Naidu Bilirubin [Mass/Vol] 0.6 mg/dL Normal 0.2-1.0 [facility] Comment on above: Performed By: #### MERLE CULVER #### [facility] [address] [place] [address] Dr. Yogi Naidu Calcium [Mass/Vol] 9.2 mg/dL Normal 8.5-10.1 [facility] Comment on above: Performed By: #### MERLE CULVER #### [facility] [address] [place] [address] Dr. Yogi Naidu Chloride [Moles/Vol] 106 mmol/L Normal 98-107 [facility] Comment on above: Performed By: #### MERLE CULVER #### [facility] [address] [place] [address] Dr. Yogi Naidu CO2 [Moles/Vol] 28.5 mmol/L Normal 21.0-32.0 [facility] Comment on above: Performed By: #### MERLE CULVER #### [facility] [address] [place] [address] Dr. Yogi Naidu Creatinine [Mass/Vol] 1.12 mg/dL Normal 0.70-1.30 [facility] Comment on above: Performed By: #### MERLE CULVER #### [facility] [address] [place] [address] Dr. Yogi Naidu EGFR-AF TOGOLESE >60 Normal >=60 [facility] Comment on above: Performed By: #### MERLE CULVER #### [facility] [address] [place] [address] Dr. Yogi Naidu EGFR-NON AF TOGOLESE >60 Normal >=60 [facility] Comment on above: Performed By: #### MERLE CULVER #### [facility] [address] [address] [address] Yogi Naidu Globulin (S) [Mass/Vol] 2.5 g/dL Normal [facility] Comment on above: Performed By: #### DASH CULVERRO #### [facility] [address] [place] [address] Dr. Yogi Naidu Glucose [Mass/Vol] 91 mg/dL Normal 74-106 [facility] Comment on above: Performed By: #### Vesta DE OLIVEIRA UMICRO #### [facility] [address] [place] [address] Dr. Yogi Naidu Potassium [Moles/Vol] 4.3 mmol/L Normal 3.5-5.1 [facility] Comment on above: Performed By: #### Vesta DE OLIVEIRA UMICRO #### [facility] [address] [place] [address] Dr. Yogi Naidu Protein [Mass/Vol] 6.5 g/dL Normal 6.4-8.2 [facility] Comment on above: Performed By: #### Vesta DE OLIVEIRA UMICRO #### [facility] [address] [place] [address] Dr. Yogi Naidu Sodium [Moles/Vol] 139 mmol/L Normal 136-145 [facility] Comment on above: Performed By: #### Vesta DE OLIVEIRA UMICRO #### [facility] [address] [place] [address] Dr. Yogi Naidu Urea nitrogen [Mass/Vol] 25.0 mg/dL Critically high 7.0-18 .0 [facility] Comment on above: Performed By: #### Vesta DE OLIVEIRA, UMICRO #### [facility] [address] [place] [address] Dr. Yogi Naidu Urea nitrogen/Creatinine [Mass ratio] 22.3 mg/mg Normal [facility] Comment on above: Performed By: #### Vesta DE OLIVEIRA, UMICRO #### [facility] [address] [place] [address] Dr. Yogi Naidu Tobacco Screening.on 022 Adult depression screening assessment No [facility] 250 DO Work Phone: Fall risk assessment a) No falls within the last year [facility] [employer] 250 DO Work Phone: Tobacco use status [facility]PH[facility] b) No M [facility] [employer] 250 DO Work Phone: BOX TEST SENT OUTon 03-17-20 22 SENT TO REF LAB 03/17/2022 Normal [facility] Comment on above: Performed By: #### C MP, MG, PHOS, GGT #### [facility] [address] [place] [address] Dr. Yogi Naidu CBC W MANUAL DIFFon 03-17-20 22 ATYPICAL LYMPH # Normal [facility] Comment on above: Performed By: #### MERLE CULVER #### [facility] [address] [place] [address] Dr. Yogi Naidu ATYPICAL LYMPH % Normal [facility] Comment on above: Performed By: #### MERLE CULVER #### [facility] [address] [place] [address] Dr. Yogi Naidu BAND # Normal 0.0-0.3 [facility] Comment on above: Performed By: #### MERLE CULVER #### [facility] [address] [place] [address] Dr. Yogi Naidu BAND % Normal 0-5 [facility] Comment on above: Performed By: #### DASH CULVERRO #### [facility] [address] [place] [address] Dr. Yogi Naidu BASOM # 0.00 103/ul Normal 0.00-0.10 [facility] Comment on above: Performed By: #### DASH CULVERRO #### [facility] [address] [place] [address] Dr. Yogi Naidu BASOM % 0.0 % Critically low 0.2-2.0 [facility] Comment on above: Performed By: #### DASH CULVERRO #### [facility] [address] [place] [address] Dr. Yogi Naidu BLAST # Normal [facility] Comment on above: Performed By: #### Vesta DE OLIVEIRA UMICRO #### [facility] [address] [place] [address] Dr. Yogi Naidu BLAST % Normal [facility] Comment on above: Performed By: #### Vesta DE OLIVEIRA UMICRO #### [facility] [address] [place] [address] Dr. Yogi Naidu CORRECTED WBC Normal 4.0-11.0 [facility] Comment on above: Performed By: #### Vesta DE OLIVEIRA UMICRO #### [facility] [address] [place] [address] Dr. Yogi Naidu EOS # 0.20 103/ul Normal 0.00-0.70 [facility] Comment on above: Performed By: #### Vesta DE OLIVEIRA UMICRO #### [facility] [address] [place] [address] Dr. Yogi Naidu EOS% 3.0 % Normal 0.9-7.0 [facility] Comment on above: Performed By: #### Vesta DE OLIVEIRA UMICRO #### [facility] [address] [place] [address] Dr. Yogi Naidu HCT 45.6 % Normal 42.0-54.0 [facility] Comment on above: Performed By: #### Vesta DE OLIVEIRA UMICRO #### [facility] [address] [place] [address] Dr. Yogi Naidu HGB 15.2 g/dl Normal 14.0-18.0 [facility] Comment on above: Performed By: #### Vesta DE OLIVEIRA UMICRO #### [facility] [address] [place] [address] Dr. Yogi Naidu LYMPHM # 0.78 103/ul Critically low 1.20-3.80 [facility] Comment on above: Performed By: #### Vesta DE OLIVEIRA, UMICRO #### [facility] [address] [place] [address] Dr. Yogi Naidu LYMPHM% 12.0 % Critically low 20.5-60.0 [facility] Comment on above: Performed By: #### Vesta DE OLIVEIRA UMICRO #### [facility] [address] [address] [address] Yogi Naidu MCH 30.4 pg Normal 25.9-34.0 [facility] Comment on above: Performed By: #### Vesta DE OLIVEIRA UMICRO #### [facility] [address] [address] [address] Yogi Naidu MCHC 33.3 g/dl Normal 29.9-35.2 [facility] Comment on above: Performed By: #### Vesta DE OLIVEIRA UMICRO #### [facility] [address] [place] [address] Dr. Yogi Naidu MCV 91.2 fL Normal 80.0-94.0 [facility] Comment on above: Performed By: #### Vesta DE OLIVEIRA UMICRO #### [facility] [address] [place] [address] Dr. Yogi Naidu METAMYELOCYTE # Normal [facility] Comment on above: Performed By: #### Vesta DE OLIVEIRA UMICRO #### [facility] [address] [place] [address] Dr. Yogi Naidu METAMYELOCYTE % Normal [facility] Comment on above: Performed By: #### Vesta DE OLIVEIRA UMICRO #### [facility] [address] [place] [address] Dr. Yogi Naidu MONOM# 0.39 103/ul Normal 0.30-0.80 [facility] Comment on above: Performed By: #### Vesta DE OLIVEIRA UMICRO #### [facility] [address] [place] [address] Dr. Yogi Naidu MONOM% 6.0 % Normal 1.7-12.0 [facility] Comment on above: Performed By: #### Vesta DE OLIVEIRA UMICRO #### [facility] [address] [place] [address] Dr. Yogi Naidu MPV 9.6 fL Normal 9.5-13.5 [facility] Comment on above: Performed By: #### DASH CULVERRO #### [facility] [address] [place] [address] Dr. Yogi Naidu MYELOCYTE # Normal [facility] Comment on above: Performed By: #### DASH CULVERRO #### [facility] [address] [place] [address] Dr. Yogi Naidu MYELOCYTE % Normal [facility] Comment on above: Performed By: #### DASH CULVERRO #### [facility] [address] [place] [address] Dr. Yogi Naidu NRBC Normal [facility] Comment on above: Performed By: #### DASH CULVERRO #### [facility] [address] [place] [address] Dr. Yogi Naidu PLT 180 103/ul Normal 150-450 [facility] Comment on above: Performed By: #### DASH CULVERRO #### [facility] [address] [place] [address] Dr. Yogi Naidu RBC 5.00 106/ul Normal 4.70-6.10 [facility] Comment on above: Performed By: #### DASH CULVERRO #### [facility] [address] [place] [address] Dr. Yogi Naidu RDW 14.1 % Normal 11.0-15.0 [facility] Comment on above: Performed By: #### SONU CULVERICRO #### [facility] [address] [place] [address] Dr. Yogi Naidu SEG # 5.13 103/ul Normal 1.40-6.50 [facility] Comment on above: Performed By: #### SONU CULVERICRO #### [facility] [address] [place] [address] Dr. Yogi Naidu SEG % 79.0 % Critically high 43.0-75.0 [facility] Comment on above: Performed By: #### Vesta DE OLIVEIRA UMICRO #### [facility] [address] [place] [address] Dr. Yogi Naidu WBC 6.5 103/ul Normal 4.0-11.0 [facility] Comment on above: Performed By: #### E DASH DE OLIVEIRARO #### [facility] [address] [place] [address] Dr. Yogi Naidu GGTon 03-17-2022 Gamma glutamyl transferase [Catalytic activity/Vol] 37 U/L Normal 15-85 [facility] Comment on above: Performed By: #### C MP, MG, PHOS, GGT #### [facility] [address] [place] [address] Dr. Yogi Naidu MAGNESIUMon 03-17-2022 Magnesium [Mass/Vol] 1.8 mg/dL Normal 1.8-2.4 [facility] Comment on above: Performed By: #### C MP, MG, PHOS, GGT #### [facility] [address] [place] [address] Dr. Yogi Naidu PHOSPHORUSon 03-17-2022 Phosphate [Mass/Vol] 2.9 mg/dL Normal 2.6-4.7 [facility] Comment on above: Performed By: #### C MP, MG, PHOS, GGT #### [facility] [address] [place] [address] Dr. Yogi Naidu PROF 14(COMP METB)on 022 Albumin [Mass/Vol] 3.9 g/dL Normal 3.4-5.0 [facility] Comment on above: Performed By: #### C MP, MG, PHOS, GGT #### [facility] [address] [place] [address] Dr. Yogi Naidu Albumin/Globulin [Mass ratio] 1.6 {ratio} Normal [facility] Comment on above: Performed By: #### C MP, MG, PHOS, GGT #### [facility] [address] [place] [address] Dr. Yogi Naidu ALP [Catalytic activity/Vol] 75 U/L Normal 46-116 [facility] Comment on above: Performed By: #### C MP, MG, PHOS, GGT #### [facility] [address] [place] [address] Dr. Yogi Naidu ALT [Catalytic activity/Vol] 20 U/L Normal 16-63 [facility] Comment on above: Performed By: #### C MP, MG, PHOS, GGT #### [facility] [address] [place] [address] Dr. Yogi Naidu Anion gap [Moles/Vol] 9.6 mmol/L Normal [facility] Comment on above: Performed By: #### C MP, MG, PHOS, GGT #### [facility] [address] [address] [address] Yoig Naidu AST [Catalytic activity/Vol] 13 U/L Critically low 15-37 [facility] Comment on above: Performed By: #### C MP, MG, PHOS, GGT #### [facility] [address] [place] [address] Dr. Yogi Naidu Bilirubin [Mass/Vol] 0.7 mg/dL Normal 0.2-1.0 [facility] Comment on above: Performed By: #### C MP, MG, PHOS, GGT #### [facility] [address] [place] [address] Dr. Yogi Naidu Calcium [Mass/Vol] 9.0 mg/dL Normal 8.5-10.1 [facility] Comment on above: Performed By: #### C MP, MG, PHOS, GGT #### [facility] [address] [place] [address] Dr. Yogi Naidu Chloride [Moles/Vol] 108 mmol/L Critically high 98-107 [facility] Comment on above: Performed By: #### C MP, MG, PHOS, GGT #### [facility] [address] [place] [address] Dr. Yogi Naidu CO2 [Moles/Vol] 28.3 mmol/L Normal 21.0-32.0 [facility] Comment on above: Performed By: #### C MP, MG, PHOS, GGT #### [facility] [address] [place] [address] Dr. Yogi Naidu Creatinine [Mass/Vol] 1.17 mg/dL Normal 0.70-1.30 [facility] Comment on above: Performed By: #### C MP, MG, PHOS, GGT #### [facility] [address] [place] [address] Dr. Yogi Naidu EGFR-AF TOGOLESE >60 Normal >=60 [facility] Comment on above: Performed By: #### C MP, MG, PHOS, GGT #### [facility] [address] [place] [address] Dr. Yogi Naidu EGFR-NON AF TOGOLESE >60 Normal >=60 [facility] Comment on above: Performed By: #### C MP, MG, PHOS, GGT #### [facility] [address] [place] [address] Dr. Yogi Naidu Globulin (S) [Mass/Vol] 2.4 g/dL Normal [facility] Comment on above: Performed By: #### C MP, MG, PHOS, GGT #### [facility] [address] [place] [address] Dr. Yogi Naidu Glucose [Mass/Vol] 102 mg/dL Normal 74-106 [facility] Comment on above: Performed By: #### C MP, MG, PHOS, GGT #### [facility] [address] [place] [address] Dr. Yogi Naidu Potassium [Moles/Vol] 4.9 mmol/L Normal 3.5-5.1 [facility] Comment on above: Performed By: #### C MP, MG, PHOS, GGT #### [facility] [address] [place] [address] Dr. Yogi Naidu Protein [Mass/Vol] 6.3 g/dL Critically low 6.4-8.2 [facility] Comment on above: Performed By: #### C MP, MG, PHOS, GGT #### [facility] [address] [place] [address] Dr. Yogi Naidu Sodium [Moles/Vol] 141 mmol/L Normal 136-145 [facility] Comment on above: Performed By: #### C MP, MG, PHOS, GGT #### [facility] [address] [place] [address] Dr. Yogi Naidu Urea nitrogen [Mass/Vol] 22.0 mg/dL Critically high 7.0-18 .0 [facility] Comment on above: Performed By: #### C MP, MG, PHOS, GGT #### [facility] [address] [place] [address] Dr. Yogi Naidu Urea nitrogen/Creatinine [Mass ratio] 18.8 mg/mg Normal [facility] Comment on above: Performed By: #### C MP, MG, PHOS, GGT #### [facility] [address] [place] [address] Dr. Yogi Naidu BOX TEST SENT OUTon 02-19-20 22 SENT TO REF LAB 02/18/2022 [facility] Comment on above: Performed By: #### E MERLE DE OLIVEIRA #### [place] [facility] [facility] [address] [place] [address] Dr. Yogi Naidu CBC W MANUAL DIFFon 02-19-20 22 ATYPICAL LYMPH # Normal [facility] Comment on above: Performed By: #### C MP, MG, PHOS, GGT #### [facility] [address] [place] [address] Dr. Yogi Naidu ATYPICAL LYMPH % Normal [facility] Comment on above: Performed By: #### C MP, MG, PHOS, GGT #### [facility] [address] [place] [address] Dr. Yogi Naidu BAND # Normal 0.0-0.3 [facility] Comment on above: Performed By: #### C MP, MG, PHOS, GGT #### [facility] [address] [place] [address] Dr. Yogi Naidu BAND % Normal 0-5 [facility] Comment on above: Performed By: #### C MP, MG, PHOS, GGT #### [facility] [address] [place] [address] Dr. Yogi Naidu BASOM # 0.00 103/ul Normal 0.00-0.10 [facility] Comment on above: Performed By: #### C MP, MG, PHOS, GGT #### [facility] [address] [place] [address] Dr. Yogi Naidu BASOM % 0.0 % Critically low 0.2-2.0 [facility] Comment on above: Performed By: #### C MP, MG, PHOS, GGT #### [facility] [address] [place] [address] Dr. Yogi Naidu BLAST # Normal [facility] Comment on above: Performed By: #### C MP, MG, PHOS, GGT #### [facility] [address] [place] [address] Dr. Yogi Naidu BLAST % Normal [facility] Comment on above: Performed By: #### C MP, MG, PHOS, GGT #### [facility] [address] [place] [address] Dr. Yogi Naidu CORRECTED WBC Normal 4.0-11.0 [facility] Comment on above: Performed By: #### C MP, MG, PHOS, GGT #### [facility] [address] [place] [address] Dr. Yogi Naidu EOS # 0.21 103/ul Normal 0.00-0.70 [facility] Comment on above: Performed By: #### C MP, MG, PHOS, GGT #### [facility] [address] [place] [address] Dr. Yogi Naidu EOS% 4.0 % Normal 0.9-7.0 [facility] Comment on above: Performed By: #### C MP, MG, PHOS, GGT #### [facility] [address] [place] [address] Dr. Yogi Naidu HCT 43.6 % Normal 42.0-54.0 [facility] Comment on above: Performed By: #### C MP, MG, PHOS, GGT #### [facility] [address] [place] [address] Dr. Yogi Naidu HGB 14.9 g/dl Normal 14.0-18.0 [facility] Comment on above: Performed By: #### C MP, MG, PHOS, GGT #### [facility] [address] [place] [address] Dr. Yogi Naidu LYMPHM # 0.62 103/ul Critically low 1.20-3.80 [facility] Comment on above: Performed By: #### C MP, MG, PHOS, GGT #### [facility] [address] [place] [address] Dr. Yogi Naidu LYMPHM% 12.0 % Critically low 20.5-60.0 [facility] Comment on above: Performed By: #### C MP, MG, PHOS, GGT #### [facility] [address] [place] [address] Dr. Yogi Naidu MCH 30.1 pg Normal 25.9-34.0 [facility] Comment on above: Performed By: #### C MP, MG, PHOS, GGT #### [facility] [address] [place] [address] Dr. Yogi Naidu MCHC 34.2 g/dl Normal 29.9-35.2 [facility] Comment on above: Performed By: #### C MP, MG, PHOS, GGT #### [facility] [address] [place] [address] Dr. Yogi Naidu MCV 88.1 fL Normal 80.0-94.0 [facility] Comment on above: Performed By: #### C MP, MG, PHOS, GGT #### [facility] [address] [place] [address] Dr. Yogi Naidu METAMYELOCYTE # Normal [facility] Comment on above: Performed By: #### C MP, MG, PHOS, GGT #### [facility] [address] [place] [address] Dr. Yogi Naidu METAMYELOCYTE % Normal [facility] Comment on above: Performed By: #### C MP, MG, PHOS, GGT #### [facility] [address] [place] [address] Dr. Yogi Naidu MONOM# 0.05 103/ul Critically low 0.30-0.80 [facility] Comment on above: Performed By: #### C MP, MG, PHOS, GGT #### [facility] [address] [place] [address] Dr. Yogi Naidu MONOM% 1.0 % Critically low 1.7-12.0 [facility] Comment on above: Performed By: #### C MP, MG, PHOS, GGT #### [facility] [address] [place] [address] Dr. Yogi Naidu MPV 9.2 fL Critically low 9.5-13.5 [facility] Comment on above: Performed By: #### C MP, MG, PHOS, GGT #### [facility] [address] [place] [address] Dr. Yogi Naidu MYELOCYTE # Normal [facility] Comment on above: Performed By: #### C MP, MG, PHOS, GGT #### [facility] [address] [place] [address] Dr. Yogi Naidu MYELOCYTE % Normal [facility] Comment on above: Performed By: #### C MP, MG, PHOS, GGT #### [facility] [address] [place] [address] Dr. Yogi Naidu NRBC Normal [facility] Comment on above: Performed By: #### C MP, MG, PHOS, GGT #### [facility] [address] [place] [address] Dr. Yogi Naidu PLT 143 103/ul Critically low 150-450 [facility] Comment on above: Performed By: #### C MP, MG, PHOS, GGT #### [facility] [address] [place] [address] Dr. Yogi Naidu RBC 4.95 106/ul Normal 4.70-6.10 [facility] Comment on above: Performed By: #### C MP, MG, PHOS, GGT #### [facility] [address] [place] [address] Dr. Yogi Naidu RDW 13.9 % Normal 11.0-15.0 [facility] Comment on above: Performed By: #### C MP, MG, PHOS, GGT #### [facility] [address] [place] [address] Dr. Yogi Naidu SEG # 4.32 103/ul Normal 1.40-6.50 [facility] Comment on above: Performed By: #### C MP, MG, PHOS, GGT #### [facility] [address] [place] [address] Dr. Yogi Naidu SEG % 83.0 % Critically high 43.0-75.0 [facility] Comment on above: Performed By: #### C MP, MG, PHOS, GGT #### [facility] [address] [place] [address] Dr. Yogi Naidu WBC 5.2 103/ul Normal 4.0-11.0 [facility] Comment on above: Performed By: #### C MP, MG, PHOS, GGT #### [facility] [address] [place] [address] Dr. Yogi Naidu GGTon 02-18-2022 Gamma glutamyl transferase [Catalytic activity/Vol] 38 U/L Normal 15-85 [facility] Comment on above: Performed By: #### C BC #### [facility] [address] [place] [address] Dr. Yogi Naidu MAGNESIUMon 02-18-2022 Magnesium [Mass/Vol] 1.8 mg/dL Normal 1.8-2.4 [facility] Comment on above: Performed By: #### C BC #### [facility] [address] [place] [address] Dr. Yogi Naidu PHOSPHORUSon 02-18-2022 Phosphate [Mass/Vol] 2.5 mg/dL Critically low 2.6-4.7 [facility] Comment on above: Performed By: #### C MP, MG, PHOS, GGT #### [facility] [address] [place] [address] Dr. Yogi Naidu PROF 14(COMP METB)on 022 Albumin [Mass/Vol] 3.8 g/dL Normal 3.4-5.0 [facility] Comment on above: Performed By: #### C MP, MG, PHOS, GGT #### [facility] [address] [place] [address] Dr. Yogi Naidu Albumin/Globulin [Mass ratio] 1.6 {ratio} Normal [facility] Comment on above: Performed By: #### C MP, MG, PHOS, GGT #### [facility] [address] [place] [address] Dr. Yogi Naidu ALP [Catalytic activity/Vol] 69 U/L Normal 46-116 [facility] Comment on above: Performed By: #### C MP, MG, PHOS, GGT #### [facility] [address] [place] [address] Dr. Yogi Naidu ALT [Catalytic activity/Vol] 17 U/L Normal 16-63 [facility] Comment on above: Performed By: #### C MP, MG, PHOS, GGT #### [facility] [address] [place] [address] Dr. Yogi Naidu Anion gap [Moles/Vol] 10.0 mmol/L Normal [facility] Comment on above: Performed By: #### C MP, MG, PHOS, GGT #### [facility] [address] [place] [address] Dr. Yogi Naidu AST [Catalytic activity/Vol] 15 U/L Normal 15-37 [facility] Comment on above: Performed By: #### C MP, MG, PHOS, GGT #### [facility] [address] [place] [address] Dr. Yogi Naidu Bilirubin [Mass/Vol] 0.7 mg/dL Normal 0.2-1.0 [facility] Comment on above: Performed By: #### C MP, MG, PHOS, GGT #### [facility] [address] [place] [address] Dr. Yogi Naidu Calcium [Mass/Vol] 8.3 mg/dL Critically low 8.5-10.1 [facility] Comment on above: Performed By: #### C MP, MG, PHOS, GGT #### [facility] [address] [place] [address] Dr. Yogi Naidu Chloride [Moles/Vol] 107 mmol/L Normal 98-107 [facility] Comment on above: Performed By: #### C MP, MG, PHOS, GGT #### [facility] [address] [address] [address] Yogi Naidu CO2 [Moles/Vol] 27.0 mmol/L Normal 21.0-32.0 [facility] Comment on above: Performed By: #### C MP, MG, PHOS, GGT #### [facility] [address] [address] [address] Yogi Naidu Creatinine [Mass/Vol] 1.29 mg/dL Normal 0.70-1.30 [facility] Comment on above: Performed By: #### C MP, MG, PHOS, GGT #### [facility] [address] [place] [address] Dr. Yogi Naidu EGFR-AF TOGOLESE >60 Normal >=60 [facility] Comment on above: Performed By: #### C MP, MG, PHOS, GGT #### [facility] [address] [place] [address] Dr. Yogi Naidu EGFR-NON AF TOGOLESE 55 mL/min/1.73m2 Critically low >=60 [facility] Comment on above: Performed By: #### C MP, MG, PHOS, GGT #### [facility] [address] [address] [address] Yogi Naidu Globulin (S) [Mass/Vol] 2.4 g/dL Normal [facility] Comment on above: Performed By: #### C MP, MG, PHOS, GGT #### [facility] [address] [place] [address] Dr. Yogi Naidu Glucose [Mass/Vol] 95 mg/dL Normal 74-106 [facility] Comment on above: Performed By: #### C MP, MG, PHOS, GGT #### [facility] [address] [place] [address] Dr. Yogi Naidu Potassium [Moles/Vol] 4.0 mmol/L Normal 3.5-5.1 [facility] Comment on above: Performed By: #### C MP, MG, PHOS, GGT #### [facility] [address] [address] [address] Yogi Naidu Protein [Mass/Vol] 6.2 g/dL Critically low 6.4-8.2 [facility] Comment on above: Performed By: #### C MP, MG, PHOS, GGT #### [facility] [address] [place] [address] Dr. Yogi Naidu Sodium [Moles/Vol] 140 mmol/L Normal 136-145 [facility] Comment on above: Performed By: #### C MP, MG, PHOS, GGT #### [facility] [address] [place] [address] Dr. Yogi Naidu Urea nitrogen [Mass/Vol] 26.0 mg/dL Critically high 7.0-18 .0 [facility] Comment on above: Performed By: #### C MP, MG, PHOS, GGT #### [facility] [address] [place] [address] Dr. Yogi Naidu Urea nitrogen/Creatinine [Mass ratio] 20.2 mg/mg Normal [facility] Comment on above: Performed By: #### C MP, MG, PHOS, GGT #### [facility] [address] [place] [address] Dr. Yogi Naidu US PROSTATEon 01-22-2022 US [...] SUSAN POPE Date: 2022-01-22 16:08 Normal [facility] Covid-19 PCR (CVDTBH)on SARS-CoV-2 (COVID-19) RNA LUZ MARIA+probe Ql (Unsp spec) Not detected Normal NOT DETECTED [facility] Comment on above: Result Comment: This test is not yet approved or cleared by the [place] FDA. When there are no FDA-approved or cleared tests available, and other criteria are met, FDA can make tests available under an emergency access mechanism called an Emergency Use Authorization (EUA). The EUA for this test is supported by the [employer] Supervisor of Health and Human Service's (HHS's) declaration [...] By: #### E MERLE DE OLIVEIRA #### [facility] [address] [place] [address] Dr. Yogi Naidu HEP C RNA BY PCR QUANT (NON- GRAPHICAL) Won 01-14-2022 HCV Genotype RTNI Normal [facility] Comment on above: Result Comment: Not indicated Performed By: #### C MP, MG, PHOS, GGT #### [facility] [address] [place] [address] Dr. Yogi Naidu HCV log10 UPTCAL Normal [facility] Comment on above: Result Comment: Unab le to calculate result since non-numeric result obtained for component test. Performed By: #### C MP, MG, PHOS, GGT #### [facility] [address] [place] [address] Dr. Yogi Naidu Hepatitis C Quantitation Not detected Normal [facility] Comment on above: Performed By: #### C MP, MG, PHOS, GGT #### [facility] [address] [place] [address] Dr. Yogi Naidu Test Information: Comment Normal [facility] Comment on above: Result Comment: The quantitative range of this assay is 15 IU/mL to 100 million IU/mL. Performed By: #### C MP, MG, PHOS, GGT #### [facility] [address] [place] [address] Dr. Yogi Naidu BOX TEST SENT OUTon 01-14-20 22 SENT TO REF LAB 01/13/2022 Normal [facility] Comment on above: Performed By: #### B OX #### [facility] [address] [place] [address] Dr. Yogi Naidu CBC W MANUAL DIFFon 01-14-20 ANISOCYTOSIS SLIGHT Normal [facility] Comment on above: Performed By: #### C MP, MG, PHOS, GGT #### [facility] [address] [place] [address] Dr. Yogi Naidu ATYPICAL LYMPH # Normal [facility] Comment on above: Performed By: #### C MP, MG, PHOS, GGT #### [facility] [address] [place] [address] Dr. Yogi Naidu ATYPICAL LYMPH % Normal [facility] Comment on above: Performed By: #### C MP, MG, PHOS, GGT #### [facility] [address] [place] [address] Dr. Yogi Naidu BAND # Normal 0.0-0.3 [facility] Comment on above: Performed By: #### C MP, MG, PHOS, GGT #### [facility] [address] [place] [address] Dr. Yogi Naidu BAND % Normal 0-5 [facility] Comment on above: Performed By: #### C MP, MG, PHOS, GGT #### [facility] [address] [place] [address] Dr. Yogi Naidu BASOM # 0.00 103/ul Normal 0.00-0.10 [facility] Comment on above: Performed By: #### C MP, MG, PHOS, GGT #### [facility] [address] [place] [address] Dr. Yogi Naidu BASOM % 0.0 % Critically low 0.2-2.0 [facility] Comment on above: Performed By: #### C MP, MG, PHOS, GGT #### [facility] [address] [place] [address] Dr. Yogi Naidu BLAST # Normal [facility] Comment on above: Performed By: #### C MP, MG, PHOS, GGT #### [facility] [address] [place] [address] Dr. Yogi Naidu BLAST % Normal [facility] Comment on above: Performed By: #### C MP, MG, PHOS, GGT #### [facility] [address] [place] [address] Dr. Yogi Naidu CORRECTED WBC Normal 4.0-11.0 [facility] Comment on above: Performed By: #### C MP, MG, PHOS, GGT #### [facility] [address] [place] [address] Dr. Yogi Naidu EOS # 0.10 103/ul Normal 0.00-0.70 [facility] Comment on above: Performed By: #### C MP, MG, PHOS, GGT #### [facility] [address] [place] [address] Dr. Yogi Naidu EOS% 2.0 % Normal 0.9-7.0 [facility] Comment on above: Performed By: #### C MP, MG, PHOS, GGT #### [facility] [address] [place] [address] Dr. Yogi Naidu HCT 42.9 % Normal 42.0-54.0 [facility] Comment on above: Performed By: #### C MP, MG, PHOS, GGT #### [facility] [address] [place] [address] Dr. Yogi Naidu HGB 14.6 g/dl Normal 14.0-18.0 [facility] Comment on above: Performed By: #### C MP, MG, PHOS, GGT #### [facility] [address] [place] [address] Dr. Yogi Naidu LYMPHM # 0.56 103/ul Critically low 1.20-3.80 [facility] Comment on above: Performed By: #### C MP, MG, PHOS, GGT #### [facility] [address] [place] [address] Dr. Yogi Naidu LYMPHM% 11.0 % Critically low 20.5-60.0 [facility] Comment on above: Performed By: #### C MP, MG, PHOS, GGT #### [facility] [address] [place] [address] Dr. Yogi Naidu MCH 30.8 pg Normal 25.9-34.0 [facility] Comment on above: Performed By: #### C MP, MG, PHOS, GGT #### [facility] [address] [place] [address] Dr. Yogi Naidu MCHC 34.0 g/dl Normal 29.9-35.2 [facility] Comment on above: Performed By: #### C MP, MG, PHOS, GGT #### [facility] [address] [place] [address] Dr. Yogi Naidu MCV 90.5 fL Normal 80.0-94.0 [facility] Comment on above: Performed By: #### C MP, MG, PHOS, GGT #### [facility] [address] [place] [address] Dr. Yogi Naidu METAMYELOCYTE # Normal [facility] Comment on above: Performed By: #### C MP, MG, PHOS, GGT #### [facility] [address] [place] [address] Dr. Yogi Naidu METAMYELOCYTE % Normal [facility] Comment on above: Performed By: #### C MP, MG, PHOS, GGT #### [facility] [address] [place] [address] Dr. Yogi Naidu MONOM# 0.26 103/ul Critically low 0.30-0.80 [facility] Comment on above: Performed By: #### C MP, MG, PHOS, GGT #### [facility] [address] [place] [address] Dr. Yogi Naidu MONOM% 5.0 % Normal 1.7-12.0 [facility] Comment on above: Performed By: #### C MP, MG, PHOS, GGT #### [facility] [address] [place] [address] Dr. Yogi Naidu MPV 9.8 fL Normal 9.5-13.5 [facility] Comment on above: Performed By: #### C MP, MG, PHOS, GGT #### [facility] [address] [place] [address] Dr. Yogi Naidu MYELOCYTE # Normal [facility] Comment on above: Performed By: #### C MP, MG, PHOS, GGT #### [facility] [address] [address] [address] Yogi Naidu MYELOCYTE % Normal [facility] Comment on above: Performed By: #### C MP, MG, PHOS, GGT #### [facility] [address] [place] [address] Dr. Yogi Naidu NRBC Normal [facility] Comment on above: Performed By: #### C MP, MG, PHOS, GGT #### [facility] [address] [place] [address] Dr. Yogi Naidu PLT 172 103/ul Normal 150-450 [facility] Comment on above: Performed By: #### C MP, MG, PHOS, GGT #### [facility] [address] [place] [address] Dr. Yogi Naidu POIKILOCYTOSIS 1+ Normal [facility] Comment on above: Performed By: #### C MP, MG, PHOS, GGT #### [facility] [address] [place] [address] Dr. Yogi Naidu RBC 4.74 106/ul Normal 4.70-6.10 [facility] Comment on above: Performed By: #### C MP, MG, PHOS, GGT #### [facility] [address] [place] [address] Dr. Yogi Naidu RDW 13.9 % Normal 11.0-15.0 [facility] Comment on above: Performed By: #### C MP, MG, PHOS, GGT #### [facility] [address] [place] [address] Dr. Yogi Naidu SEG # 4.18 103/ul Normal 1.40-6.50 [facility] Comment on above: Performed By: #### C MP, MG, PHOS, GGT #### [facility] [address] [place] [address] Dr. Yogi Naidu SEG % 82.0 % Critically high 43.0-75.0 [facility] Comment on above: Performed By: #### C MP, MG, PHOS, GGT #### [facility] [address] [place] [address] Dr. Yogi Naidu TEAR DROP CELLS 1+ Normal [facility] Comment on above: Performed By: #### C MP, MG, PHOS, GGT #### [facility] [address] [place] [address] Dr. Yogi Naidu WBC 5.1 103/ul Normal 4.0-11.0 [facility] Comment on above: Performed By: #### C MP, MG, PHOS, GGT #### [facility] [address] [place] [address] Dr. Yogi Naidu GGTon 01-13-2022 Gamma glutamyl transferase [Catalytic activity/Vol] 35 U/L Normal 15-85 [facility] Comment on above: Performed By: #### B OX #### [facility] [address] [place] [address] Dr. Yogi Naidu LIPID PROFILEon 01-13-2022 CHOL-HDL RATIO NORM SEE BELOW Normal [facility] Comment on above: Result Comment: 3.3 - 4.4 LOW RISK 4.4 - 7.1 AVERAGE RISK 7.1 - 11.0 MODERATE RISK >11.0 HIGH RISK Performed By: #### B OX #### [facility] [address] [place] [address] Dr. Yogi Naidu Cholesterol [Mass/Vol] 183 mg/dL Normal <=200 [facility] Comment on above: Performed By: #### B OX #### [facility] [address] [place] [address] Dr. Yogi Naidu Cholesterol in HDL [Mass/Vol] 45 mg/dL Normal 40-60 [facility] Comment on above: Performed By: #### B OX #### [facility] [address] [place] [address] Dr. Yogi Naidu Cholesterol in LDL [Mass/Vol] 127.2 mg/dL Normal [facility] Comment on above: Performed By: #### B OX #### [facility] [address] [place] [address] Dr. Yogi Naidu Cholesterol.total/Choles terol in HDL [Mass ratio] 4.1 {ratio} Normal [facility] Comment on above: Performed By: #### B OX #### [facility] [address] [place] [address] Dr. Yogi Naidu HDL NORMAL > or = 60 mg/dl - LO W CARDIOVASCULAR RISK <40 mg/dl - HIGH CARDIOVASCULAR RISK Normal [facility] Comment on above: Performed By: #### B OX #### [facility] [address] [place] [address] Dr. Yogi Naidu LDL CALC NORMAL SEE BELOW Normal [facility] Comment on above: Result Comment: <100 mg/dl OPTIMAL 100 - 129 mg/dl NEAR OR ABOVE OPTIMAL 130 - 159 mg/dl BORDERLINE HIGH 160 - 189 mg/dl HIGH >190 mg/dl VERY HIGH Performed By: #### B OX #### [facility] [address] [place] [address] Dr. Yogi Naidu Triglyceride [Mass/Vol] 54 mg/dL Normal <=150 [facility] Comment on above: Performed By: #### B OX #### [facility] [address] [place] [address] Dr. Yogi Naidu VLDL CALC 10.8 mg/dL Normal [facility] Comment on above: Performed By: #### B OX #### [facility] [address] [place] [address] Dr. Yogi Naidu MAGNESIUMon 01-13-2022 Magnesium [Mass/Vol] 1.7 mg/dL Critically low 1.8-2.4 [facility] Comment on above: Performed By: #### B OX #### [facility] [address] [place] [address] Dr. Yogi Naidu PHOSPHORUSon 01-13-2022 Phosphate [Mass/Vol] 2.8 mg/dL Normal 2.6-4.7 [facility] Comment on above: Performed By: #### B OX #### [facility] [address] [place] [address] Dr. Yogi Naidu PROF 14(COMP METB)on 022 Albumin [Mass/Vol] 3.9 g/dL Normal 3.4-5.0 [facility] Comment on above: Performed By: #### B OX #### [facility] [address] [place] [address] Dr. Yogi Naidu Albumin/Globulin [Mass ratio] 1.7 {ratio} Normal [facility] Comment on above: Performed By: #### B OX #### [facility] [address] [place] [address] Dr. Yogi Naidu ALP [Catalytic activity/Vol] 68 U/L Normal 46-116 [facility] Comment on above: Performed By: #### B OX #### [facility] [address] [place] [address] Dr. Yogi Naidu ALT [Catalytic activity/Vol] 14 U/L Critically low 16-63 [facility] Comment on above: Performed By: #### B OX #### [facility] [address] [place] [address] Dr. Yogi Naidu Anion gap [Moles/Vol] 11.9 mmol/L Normal [facility] Comment on above: Performed By: #### B OX #### [facility] [address] [place] [address] Dr. Yogi Naidu AST [Catalytic activity/Vol] 13 U/L Critically low 15-37 [facility] Comment on above: Performed By: #### B OX #### [facility] [address] [place] [address] Dr. Yogi Naidu Bilirubin [Mass/Vol] 0.5 mg/dL Normal 0.2-1.0 [facility] Comment on above: Performed By: #### B OX #### [facility] [address] [place] [address] Dr. Yogi Naidu Calcium [Mass/Vol] 8.7 mg/dL Normal 8.5-10.1 [facility] Comment on above: Performed By: #### B OX #### [facility] [address] [place] [address] Dr. Yogi Naidu Chloride [Moles/Vol] 110 mmol/L Critically high 98-107 [facility] Comment on above: Performed By: #### B OX #### [facility] [address] [place] [address] Dr. Yogi Naidu CO2 [Moles/Vol] 26.3 mmol/L Normal 21.0-32.0 [facility] Comment on above: Performed By: #### B OX #### [facility] [address] [place] [address] Dr. Yogi Naidu Creatinine [Mass/Vol] 1.24 mg/dL Normal 0.70-1.30 [facility] Comment on above: Performed By: #### B OX #### [facility] [address] [place] [address] Dr. Yogi Naidu EGFR-AF TOGOLESE >60 Normal >=60 [facility] Comment on above: Performed By: #### B OX #### [facility] [address] [place] [address] Dr. Yogi Naidu EGFR-NON AF TOGOLESE 58 mL/min/1.73m2 Critically low >=60 [facility] Comment on above: Performed By: #### B OX #### [facility] [address] [place] [address] Dr. Yogi Naidu Globulin (S) [Mass/Vol] 2.3 g/dL Normal [facility] Comment on above: Performed By: #### B OX #### [facility] [address] [place] [address] Dr. Yogi Naidu Glucose [Mass/Vol] 103 mg/dL Normal 74-106 [facility] Comment on above: Performed By: #### B OX #### [facility] [address] [place] [address] Dr. Yogi Naidu Potassium [Moles/Vol] 4.2 mmol/L Normal 3.5-5.1 [facility] Comment on above: Performed By: #### B OX #### [facility] [address] [place] [address] Dr. Yogi Naidu Protein [Mass/Vol] 6.2 g/dL Critically low 6.4-8.2 [facility] Comment on above: Performed By: #### B OX #### [facility] [address] [place] [address] Dr. Yogi Naidu Sodium [Moles/Vol] 144 mmol/L Normal 136-145 [facility] Comment on above: Performed By: #### B OX #### [facility] [address] [place] [address] Dr. Yogi Naidu Urea nitrogen [Mass/Vol] 26.0 mg/dL Critically high 7.0-18 .0 [facility] Comment on above: Performed By: #### B OX #### [facility] [address] [place] [address] Dr. Yogi Naidu Urea nitrogen/Creatinine [Mass ratio] 21.0 mg/mg Normal [facility] Comment on above: Performed By: #### B OX #### [facility] [address] [place] [address] Dr. Yogi Naidu PROTIMEon 01-13-2022 INR Coag (PPP) [Relative time] 1.06 {INR} Normal [facility] Comment on above: Performed By: #### C MP, MG, PHOS, GGT #### [facility] [address] [place] [address] Dr. Yogi Naidu INR GUIDELINES SEE BELOW Normal [facility] Comment on above: Result Comment: LENI RED INR: 2.0 - 3.0 CONDITIONS NOT LISTED BELOW 2.5 - 3.5 FOR PROSTHETIC HEART VALVE REPLACEMENT 2.5 - 3.5 RECURRENT THROMBOSIS Performed By: #### C MP, MG, PHOS, GGT #### [facility] [address] [place] [address] Dr. Yogi Naidu PT Coag (PPP) [Time] 11.4 s Normal 9.0-11.6 [facility] Comment on above: Performed By: #### C MP, MG, PHOS, GGT #### [facility] [address] [place] [address] Dr. Yogi Naidu PTTon 01-13-2022 aPTT Coag (Bld) [Time] 28.7 s Normal 22.3-36.2 [facility] Comment on above: Performed By: #### C MP, MG, PHOS, GGT #### [facility] [address] [place] [address] Dr. Yogi Naidu BOX TEST SENT OUTon 12-18-19 SENT TO REF LAB 12/17/2021 Normal [facility] Comment on above: Performed By: #### C MP, MG, PHOS, GGT #### [facility] [address] [place] [address] Dr. Yogi Naidu CBC AUTO DIFFon 12-17-2021 BASO # 0.1 103/ul Normal 0.0-0.1 [facility] Comment on above: Performed By: #### C BC #### [facility] [address] [place] [address] Dr. Yogi Naidu Basophils/100 WBC (Bld) 1.1 % Normal 0.2-2.0 [facility] Comment on above: Performed By: #### C BC #### [facility] [address] [place] [address] Dr. Yogi Naidu EO # 0.2 103/ul Normal 0.0-0.7 [facility] Comment on above: Performed By: #### C BC #### [facility] [address] [place] [address] Dr. Yogi Naidu Eosinophils/100 WBC (Bld) 4.1 % Normal 0.9-7.0 [facility] Comment on above: Performed By: #### C BC #### [facility] [address] [place] [address] Dr. Yogi Naidu Erythrocyte distribution width (RBC) [Ratio] 13.7 % Normal 11.0-15.0 [facility] Comment on above: Performed By: #### C BC #### [facility] [address] [place] [address] Dr. Yogi Naidu Hematocrit (Bld) [Volume fraction] 45.6 % Normal 42.0-54.0 [facility] Comment on above: Performed By: #### C BC #### [facility] [address] [place] [address] Dr. Yogi Naidu Hemoglobin (Bld) [Mass/Vol] 15.1 g/dL Normal 14.0-18.0 [facility] Comment on above: Performed By: #### C BC #### [facility] [address] [place] [address] Dr. Yogi Naidu IG # 0.01 10e3/ul Normal 0.00-0.03 [facility] Comment on above: Performed By: #### C BC #### [facility] [address] [place] [address] Dr. Yogi Naidu IG % 0.2 % Normal 0.0-0.5 [facility] Comment on above: Performed By: #### C BC #### [facility] [address] [place] [address] Dr. Yogi Naidu LYMPH # 0.7 103/ul Critically low 1.2-3.8 [facility] Comment on above: Performed By: #### C BC #### [facility] [address] [place] [address] Dr. Yogi Naidu Lymphocytes/100 WBC (Bld) 12.4 % Critically low 20.5-60.0 [facility] Comment on above: Performed By: #### C BC #### [facility] [address] [place] [address] Dr. Yogi Naidu MANUAL DIFF REQ NO Normal [facility] Comment on above: Performed By: #### C BC #### [facility] [address] [place] [address] Dr. Yogi Naidu MCH (RBC) [Entitic mass] 30.1 pg Normal 25.9-34.0 [facility] Comment on above: Performed By: #### C BC #### [facility] [address] [place] [address] Dr. Yogi Naidu MCHC (RBC) [Mass/Vol] 33.1 g/dL Normal 29.9-35.2 [facility] Comment on above: Performed By: #### C BC #### [facility] [address] [place] [address] Dr. Yogi Naidu MCV (RBC) [Entitic vol] 90.8 fL Normal 80.0-94.0 [facility] Comment on above: Performed By: #### C BC #### [facility] [address] [place] [address] Dr. Yogi Naidu MONO # 0.3 103/ul Normal 0.3-0.8 [facility] Comment on above: Performed By: #### C BC #### [facility] [address] [place] [address] Dr. Yogi Naidu Monocytes/100 WBC (Bld) 5.5 % Normal 1.7-12.0 [facility] Comment on above: Performed By: #### C BC #### [facility] [address] [place] [address] Dr. Yogi Naidu NEUT # 4.4 103/ul Normal 1.4-6.5 [facility] Comment on above: Performed By: #### C BC #### [facility] [address] [place] [address] Dr. Yogi Naidu Neutrophils/100 WBC (Bld) 76.7 % Critically high 43.0-75.0 [facility] Comment on above: Performed By: #### C BC #### [facility] [address] [place] [address] Dr. Yogi Naidu Platelet mean volume (Bld) [Entitic vol] 9.5 fL Normal 9.5-13.5 [facility] Comment on above: Performed By: #### C BC #### [facility] [address] [place] [address] Dr. Yogi Naidu PLT 157 103/ul Normal 150-450 [facility] Comment on above: Performed By: #### C BC #### [facility] [address] [place] [address] Dr. Yogi Naidu RBC 5.02 106/ul Normal 4.70-6.10 [facility] Comment on above: Performed By: #### C BC #### [facility] [address] [place] [address] Dr. Yogi Naidu WBC 5.7 103/ul Normal 4.0-11.0 [facility] Comment on above: Performed By: #### C BC #### [facility] [address] [address] [address] Yogi Naidu GGTon 12-17-2021 Gamma glutamyl transferase [Catalytic activity/Vol] 35 U/L Normal 15-85 [facility] Comment on above: Performed By: #### C MP, MG, PHOS, GGT #### [facility] [address] [address] [address] Yogi Naidu MAGNESIUMon 12-17-2021 Magnesium [Mass/Vol] 1.6 mg/dL Critically low 1.8-2.4 [facility] Comment on above: Performed By: #### C MP, MG, PHOS, GGT #### [facility] [address] [place] [address] Dr. Yogi Naidu PHOSPHORUSon 12-17-2021 Phosphate [Mass/Vol] 2.9 mg/dL Normal 2.6-4.7 [facility] Comment on above: Performed By: #### C MP, MG, PHOS, GGT #### [facility] [address] [place] [address] Dr. Yogi Naidu PROF 14(COMP METB)on 022 Albumin [Mass/Vol] 3.8 g/dL Normal 3.4-5.0 [facility] Comment on above: Performed By: #### C MP, MG, PHOS, GGT #### [facility] [address] [place] [address] Dr. Yogi Naidu Albumin/Globulin [Mass ratio] 1.6 {ratio} Normal [facility] Comment on above: Performed By: #### C MP, MG, PHOS, GGT #### [facility] [address] [place] [address] Dr. Yogi Naidu ALP [Catalytic activity/Vol] 74 U/L Normal 46-116 [facility] Comment on above: Performed By: #### C MP, MG, PHOS, GGT #### [facility] [address] [place] [address] Dr. Yogi Naidu ALT [Catalytic activity/Vol] 21 U/L Normal 16-63 [facility] Comment on above: Performed By: #### C MP, MG, PHOS, GGT #### [facility] [address] [place] [address] Dr. Yogi Naidu Anion gap [Moles/Vol] 13.2 mmol/L Normal [facility] Comment on above: Performed By: #### C MP, MG, PHOS, GGT #### [facility] [address] [place] [address] Dr. Yogi Naidu AST [Catalytic activity/Vol] 14 U/L Critically low 15-37 [facility] Comment on above: Performed By: #### C MP, MG, PHOS, GGT #### [facility] [address] [place] [address] Dr. Yogi Naidu Bilirubin [Mass/Vol] 0.6 mg/dL Normal 0.2-1.0 [facility] Comment on above: Performed By: #### C MP, MG, PHOS, GGT #### [facility] [address] [place] [address] Dr. Yogi Naidu Calcium [Mass/Vol] 8.5 mg/dL Normal 8.5-10.1 [facility] Comment on above: Performed By: #### C MP, MG, PHOS, GGT #### [facility] [address] [place] [address] Dr. Yogi Naidu Chloride [Moles/Vol] 109 mmol/L Critically high 98-107 [facility] Comment on above: Performed By: #### C MP, MG, PHOS, GGT #### [facility] [address] [place] [address] Dr. Yogi Naidu CO2 [Moles/Vol] 24.9 mmol/L Normal 21.0-32.0 [facility] Comment on above: Performed By: #### C MP, MG, PHOS, GGT #### [facility] [address] [place] [address] Dr. Yogi Naidu Creatinine [Mass/Vol] 1.22 mg/dL Normal 0.70-1.30 [facility] Comment on above: Performed By: #### C MP, MG, PHOS, GGT #### [facility] [address] [place] [address] Dr. Yogi Naidu EGFR-AF TOGOLESE >60 Normal >=60 [facility] Comment on above: Performed By: #### C MP, MG, PHOS, GGT #### [facility] [address] [place] [address] Dr. Yogi Naidu EGFR-NON AF TOGOLESE 59 mL/min/1.73m2 Critically low >=60 [facility] Comment on above: Performed By: #### C MP, MG, PHOS, GGT #### [facility] [address] [place] [address] Dr. Yogi Naidu Globulin (S) [Mass/Vol] 2.4 g/dL Normal [facility] Comment on above: Performed By: #### C MP, MG, PHOS, GGT #### [facility] [address] [place] [address] Dr. Yogi Naidu Glucose [Mass/Vol] 94 mg/dL Normal 74-106 [facility] Comment on above: Performed By: #### C MP, MG, PHOS, GGT #### [facility] [address] [place] [address] Dr. Yogi Naidu Potassium [Moles/Vol] 4.1 mmol/L Normal 3.5-5.1 [facility] Comment on above: Performed By: #### C MP, MG, PHOS, GGT #### [facility] [address] [place] [address] Dr. Yogi Naidu Protein [Mass/Vol] 6.2 g/dL Critically low 6.4-8.2 [facility] Comment on above: Performed By: #### C MP, MG, PHOS, GGT #### [facility] [address] [place] [address] Dr. Yogi Naidu Sodium [Moles/Vol] 143 mmol/L Normal 136-145 [facility] Comment on above: Performed By: #### C MP, MG, PHOS, GGT #### [facility] [address] [place] [address] Dr. Yogi Naidu Urea nitrogen [Mass/Vol] 21.0 mg/dL Critically high 7.0-18 .0 [facility] Comment on above: Performed By: #### C MP, MG, PHOS, GGT #### [facility] [address] [place] [address] Dr. Yogi Naidu Urea nitrogen/Creatinine [Mass ratio] 17.2 mg/mg Normal [facility] Comment on above: Performed By: #### C MP, MG, PHOS, GGT #### [facility] [address] [place] [address] Dr. Yogi Naidu BOX TEST SENT OUTon 11-22-19 22 SENT TO REF LAB 11/21/2021 Normal [facility] Comment on above: Performed By: #### C MP, MG, PHOS, GGT #### [facility] [address] [place] [address] Dr. Yogi Naidu CBC W MANUAL DIFFon 11-22-19 ATYPICAL LYMPH # Normal [facility] Comment on above: Performed By: #### C MP, MG, PHOS, GGT #### [facility] [address] [place] [address] Dr. Yogi Naidu ATYPICAL LYMPH % Normal [facility] Comment on above: Performed By: #### C MP, MG, PHOS, GGT #### [facility] [address] [place] [address] Dr. Yogi Naidu BAND # 0.1 103/ul Normal 0.0-0.3 [facility] Comment on above: Performed By: #### C MP, MG, PHOS, GGT #### [facility] [address] [place] [address] Dr. Yogi Naidu BAND % 2 % Normal 0-5 [facility] Comment on above: Performed By: #### C MP, MG, PHOS, GGT #### [facility] [address] [place] [address] Dr. Yogi Naidu BASOM # 0.00 103/ul Normal 0.00-0.10 [facility] Comment on above: Performed By: #### C MP, MG, PHOS, GGT #### [facility] [address] [place] [address] Dr. Yogi Naidu BASOM % 0.0 % Critically low 0.2-2.0 [facility] Comment on above: Performed By: #### C MP, MG, PHOS, GGT #### [facility] [address] [place] [address] Dr. Yogi Naidu BLAST # Normal [facility] Comment on above: Performed By: #### C MP, MG, PHOS, GGT #### [facility] [address] [place] [address] Dr. Yogi Naidu BLAST % Normal [facility] Comment on above: Performed By: #### C MP, MG, PHOS, GGT #### [facility] [address] [place] [address] Dr. Yogi Naidu CORRECTED WBC Normal 4.0-11.0 [facility] Comment on above: Performed By: #### C MP, MG, PHOS, GGT #### [facility] [address] [place] [address] Dr. Yogi Naidu EOS # 0.19 103/ul Normal 0.00-0.70 [facility] Comment on above: Performed By: #### C MP, MG, PHOS, GGT #### [facility] [address] [place] [address] Dr. Yogi Naidu EOS% 3.0 % Normal 0.9-7.0 [facility] Comment on above: Performed By: #### C MP, MG, PHOS, GGT #### [facility] [address] [place] [address] Dr. Yogi Naidu HCT 46.5 % Normal 42.0-54.0 [facility] Comment on above: Performed By: #### C MP, MG, PHOS, GGT #### [facility] [address] [place] [address] Dr. Yogi Naidu HGB 15.5 g/dl Normal 14.0-18.0 [facility] Comment on above: Performed By: #### C MP, MG, PHOS, GGT #### [facility] [address] [place] [address] Dr. Yogi Naidu LYMPHM # 0.50 103/ul Critically low 1.20-3.80 [facility] Comment on above: Performed By: #### C MP, MG, PHOS, GGT #### [facility] [address] [place] [address] Dr. Yogi Naidu LYMPHM% 8.0 % Critically low 20.5-60.0 [facility] Comment on above: Performed By: #### C MP, MG, PHOS, GGT #### [facility] [address] [place] [address] Dr. Yogi Naidu MCH 30.2 pg Normal 25.9-34.0 [facility] Comment on above: Performed By: #### C MP, MG, PHOS, GGT #### [facility] [address] [place] [address] Dr. Yogi Naidu MCHC 33.3 g/dl Normal 29.9-35.2 [facility] Comment on above: Performed By: #### C MP, MG, PHOS, GGT #### [facility] [address] [place] [address] Dr. Yogi Naidu MCV 90.5 fL Normal 80.0-94.0 [facility] Comment on above: Performed By: #### C MP, MG, PHOS, GGT #### [facility] [address] [place] [address] Dr. Yogi Naidu METAMYELOCYTE # Normal [facility] Comment on above: Performed By: #### C MP, MG, PHOS, GGT #### [facility] [address] [place] [address] Dr. Yogi Naidu METAMYELOCYTE % Normal [facility] Comment on above: Performed By: #### C MP, MG, PHOS, GGT #### [facility] [address] [place] [address] Dr. Yogi Naidu MONOM# 0.06 103/ul Critically low 0.30-0.80 [facility] Comment on above: Performed By: #### C MP, MG, PHOS, GGT #### [facility] [address] [place], [place] [id number] Dr. Yogi Naidu MONOM% 1.0 % Critically low 1.7-12.0 [facility] Comment on above: Performed By: #### C MP, MG, PHOS, GGT #### [facility] [address] [place] [address] Dr. Yogi Naidu MPV 9.6 fL Normal 9.5-13.5 [facility] Comment on above: Performed By: #### C MP, MG, PHOS, GGT #### [facility] [address] [place] [address] Dr. Yogi Naidu MYELOCYTE # Normal [facility] Comment on above: Performed By: #### C MP, MG, PHOS, GGT #### [facility] [address] [place] [address] Dr. Yogi Naidu MYELOCYTE % Normal [facility] Comment on above: Performed By: #### C MP, MG, PHOS, GGT #### [facility] [address] [place] [address] Dr. Yogi Naidu NRBC Normal [facility] Comment on above: Performed By: #### C MP, MG, PHOS, GGT #### [facility] [address] [place] [address] Dr. Yogi Naidu PLT 185 103/ul Normal 150-450 [facility] Comment on above: Performed By: #### C MP, MG, PHOS, GGT #### [facility] [address] [place] [address] Dr. Yogi Naidu RBC 5.14 106/ul Normal 4.70-6.10 [facility] Comment on above: Performed By: #### C MP, MG, PHOS, GGT #### [facility] [address] [place] [address] Dr. Yogi Naidu RDW 14.0 % Normal 11.0-15.0 [facility] Comment on above: Performed By: #### C MP, MG, PHOS, GGT #### [facility] [address] [place] [address] Dr. Yogi Naidu SEG # 5.33 103/ul Normal 1.40-6.50 [facility] Comment on above: Performed By: #### C MP, MG, PHOS, GGT #### [facility] [address] [place] [address] Dr. Yogi Naidu SEG % 86.0 % Critically high 43.0-75.0 [facility] Comment on above: Performed By: #### C MP, MG, PHOS, GGT #### [facility] [address] [place] [address] Dr. Yogi Naidu WBC 6.2 103/ul Normal 4.0-11.0 [facility] Comment on above: Performed By: #### C MP, MG, PHOS, GGT #### [facility] [address] [place] [address] Dr. Yogi Naidu GGTon 11-21-2021 Gamma glutamyl transferase [Catalytic activity/Vol] 35 U/L Normal 15-85 [facility] Comment on above: Performed By: #### C MP, MG, PHOS, GGT #### [facility] [address] [place] [address] Dr. Yogi Naidu MAGNESIUMon 11-21-2021 Magnesium [Mass/Vol] 1.9 mg/dL Normal 1.8-2.4 [facility] Comment on above: Performed By: #### C MP, MG, PHOS, GGT #### [facility] [address] [place] [address] Dr. Yogi Naidu PHOSPHORUSon 11-21-2021 Phosphate [Mass/Vol] 3.0 mg/dL Normal 2.6-4.7 [facility] Comment on above: Performed By: #### C MP, MG, PHOS, GGT #### [facility] [address] [place] [address] Dr. Yogi Naidu PROF 14(COMP METB)on 022 Albumin [Mass/Vol] 3.8 g/dL Normal 3.4-5.0 [facility] Comment on above: Performed By: #### C MP, MG, PHOS, GGT #### [facility] [address] [place] [address] Dr. Yogi Naidu Albumin/Globulin [Mass ratio] 1.7 {ratio} Normal [facility] Comment on above: Performed By: #### C MP, MG, PHOS, GGT #### [facility] [address] [place] [address] Dr. Yogi Naidu ALP [Catalytic activity/Vol] 80 U/L Normal 46-116 [facility] Comment on above: Performed By: #### C MP, MG, PHOS, GGT #### [facility] [address] [place] [address] Dr. Yogi Naidu ALT [Catalytic activity/Vol] 21 U/L Normal 16-63 [facility] Comment on above: Performed By: #### C MP, MG, PHOS, GGT #### [facility] [address] [place] [address] Dr. Yogi Naidu Anion gap [Moles/Vol] 13.7 mmol/L Normal [facility] Comment on above: Performed By: #### C MP, MG, PHOS, GGT #### [facility] [address] [place] [address] Dr. Yogi Naidu AST [Catalytic activity/Vol] 15 U/L Normal 15-37 [facility] Comment on above: Performed By: #### C MP, MG, PHOS, GGT #### [facility] [address] [place] [address] Dr. Yogi Naidu Bilirubin [Mass/Vol] 0.6 mg/dL Normal 0.2-1.0 [facility] Comment on above: Performed By: #### C MP, MG, PHOS, GGT #### [facility] [address] [place] [address] Dr. Yogi Naidu Calcium [Mass/Vol] 8.9 mg/dL Normal 8.5-10.1 [facility] Comment on above: Performed By: #### C MP, MG, PHOS, GGT #### [facility] [address] [place] [address] Dr. Yogi Naidu Chloride [Moles/Vol] 107 mmol/L Normal 98-107 [facility] Comment on above: Performed By: #### C MP, MG, PHOS, GGT #### [facility] [address] [place] [address] Dr. Yogi Naidu CO2 [Moles/Vol] 25.4 mmol/L Normal 21.0-32.0 [facility] Comment on above: Performed By: #### C MP, MG, PHOS, GGT #### [facility] [address] [place] [address] Dr. Yogi Naidu Creatinine [Mass/Vol] 1.35 mg/dL Critically high 0.70-1.30 [facility] Comment on above: Performed By: #### C MP, MG, PHOS, GGT #### [facility] [address] [place] [address] Dr. Yogi Naidu EGFR-AF TOGOLESE >60 Normal >=60 [facility] Comment on above: Performed By: #### C MP, MG, PHOS, GGT #### [facility] [address] [place] [address] Dr. Yogi Naidu EGFR-NON AF TOGOLESE 52 mL/min/1.73m2 Critically low >=60 [facility] Comment on above: Performed By: #### C MP, MG, PHOS, GGT #### [facility] [address] [place] [address] Dr. Yogi Naidu Globulin (S) [Mass/Vol] 2.3 g/dL Normal T [facility] Comment on above: Performed By: #### C MP, MG, PHOS, GGT #### [facility] [address] [place] [address] Dr. Yogi Naidu Glucose [Mass/Vol] 93 mg/dL Normal 74-106 [facility] Comment on above: Performed By: #### C MP, MG, PHOS, GGT #### [facility] [address] [place] [address] Dr. Yogi Naidu Potassium [Moles/Vol] 4.1 mmol/L Normal 3.5-5.1 [facility] Comment on above: Performed By: #### C MP, MG, PHOS, GGT #### [facility] [address] [place] [address] Dr. Yogi Naidu Protein [Mass/Vol] 6.1 g/dL Critically low 6.4-8.2 Th e [facility] Comment on above: Performed By: #### C MP, MG, PHOS, GGT #### [facility] [address] [place] [address] Dr. Yogi Naidu Sodium [Moles/Vol] 142 mmol/L Normal 136-145 [facility] Comment on above: Performed By: #### C MP, MG, PHOS, GGT #### [facility] [address] [place] [address] Dr. Yogi Naidu Urea nitrogen [Mass/Vol] 30.0 mg/dL Critically high 7.0-18 .0 [facility] Comment on above: Performed By: #### C MP, MG, PHOS, GGT #### [facility] [address] [place] [address] Dr. Yogi Naidu Urea nitrogen/Creatinine [Mass ratio] 22.2 mg/mg Normal [facility] Comment on above: Performed By: #### C MP, MG, PHOS, GGT #### [facility] [address] [place] [address] CHEST W IVCONon 0 CT CHEST W IVCON * * *Final Report* * * DATE OF EXAM: Apr 16 2020 12:22PM [facility] 0539 - CT CHEST W IVCON / [...] the abdomen and pelvis are dictated separately. Fence Manufacture Supervisor (topogram) images: No additional findings. - IMPRESSION: Stable exam with no compelling evidence of intrathoracic metastatic disease. Small nonspecific (<6 mm) pulmonary nodules are unchanged, most of these nodules are unchanged since 2013 and are likely benign. Plant Maintenance Manager: RUSTAM Transcribe Date/Time: Apr 16 2020 12:52P Dictated by : ESDRAS SALAZAR MD This examination was interpreted and the report reviewed and electronically signed by: ESDRAS SALAZAR MD on Apr 16 2020 1:05PM EST [id number] [facility] CT LIVER/PELVIS WO/W IVCONon 04-16-2020 CT LIVER/PELVIS WO/W IVCON * * *Final Report* * * DATE OF EXAM: Apr 16 2020 12:22PM [facility] 0551 - CT LIVER/PELVIS WO/W IVCON / [...] subcentimeter hypervascular lesion in the pancreatic head. Plant Maintenance Manager: PSCB Transcribe Date/Time: Apr 16 2020 12:37P Dictated by : HAIR GUTIÉRREZ MD This examination was interpreted and the report reviewed and electronically signed by: HAIR GUTIÉRREZ MD on Apr 16 2020 12:47PM EST [id number] [facility] NURSING PROGon 04-16-2020 NURSING PROG HNO ID: [id number] Author: Latisha LopezRn) TEENA Hernandez Service: Nursing Author Type: Registered [...] DATE: April 16, 2020 TIME: 12:00 PM [facility] PROGRESSon 04-16-2020 PROGRESS HNO ID: [id number] Author: Kasey Soto (Rt) Service: Radiology Author Type: Bit Grinder Type: Progress Notes Filed: 04/16/2020 12:13 PM [...] RT Jonnie April 16, 2020 12:05 PM [facility] 04-10-2020 CNPN Telephone (AVXRPR) GEORGE,SUSAN Cox ([id number]) 1950 M TRN Date Time Provider Department [...] Encounter Status:Closed by REBECA ACEVEDO on 04/10/20 [facility] Vital Signs Date Time Vital Sign Value Performing Clinician Facility 08-13-2023 08:43-0500 Blood Pressure Location Sugey Chandler [facility] 08-13-2023 08:43-0500 Diastolic blood pressure 84 mm[Hg] Sugey Lue [facility] 08-13-2023 08:43-0500 Systolic blood pressure 132 mm[Hg] Sugey Lue [facility] 05-27-2023 09:51-0500 Blood Pressure Location Sugey Lue [facility] 05-27-2023 09:51-0500 Diastolic blood pressure 83 mm[Hg] Sugey Lue [facility] 05-27-2023 09:51-0500 Heart rate 92 /min Sugey Lue [facility] 05-27-2023 09:51-0500 Respiratory rate 16 /min Sugey Lue [facility] 05-27-2023 09:51-0500 Systolic blood pressure 131 mm[Hg] Sugey Lue [facility] 04-10-2023 08:37-0400 Body height 182.9 cm Shea Brannon MD Work Phone: [facility] 04-10-2023 08:37-0400 Body mass index (BMI) [Ratio] 25.09 kg/m2 Shea Brannon MD Work Phone: [facility] 04-10-2023 08:37-0400 Body weight 83.92 kg Shea Brannon MD Work Phone: [facility] 04-10-2023 08:37-0400 Diastolic blood pressure 58 mm[Hg] Shea Brannon MD Work Phone: [facility] 04-10-2023 08:37-0400 Heart rate 62 /min Shea Brannon MD Work Phone: [facility] 04-10-2023 08:37-0400 Systolic blood pressure 106 mm[Hg] Shea Brannon MD Work Phone: [facility] 02-25-2023 09:09-0400 Blood Pressure Location Sugey Lue [facility] 02-25-2023 09:09-0400 Diastolic blood pressure 68 mm[Hg] Sugey Lue [facility] 02-25-2023 09:09-0400 Heart rate 68 /min Sugey Lue [facility] 02-25-2023 09:09-0400 Respiratory rate 16 /min Sugey Lue [facility] 02-25-2023 09:09-0400 Systolic blood pressure 130 mm[Hg] Sugey Lue [facility] 01-01-2023 13:30-0400 Body height 182.88 cm Imad Asaad Other [employer] [facility] Other 01-01-2023 13:30-0400 Body mass index (BMI) [Ratio] 24.41 kg/m2 Imad Asaad Other [employer] Other 01-01-2023 13:30-0400 Body weight 81.65 kg Imad Asaad Other [employer] Other 01-01-2023 13:30-0400 Diastolic blood pressure 76 mm[Hg] Imad Asaad Other [employer] Other 01-01-2023 13:30-0400 Systolic blood pressure 146 mm[Hg] Imad Asaad Other [employer] Other 12-11-2022 13:53-0400 Diastolic blood pressure 78 mm[Hg] DO Elvira Bunting Work Phone: [facility] 12-11-2022 13:53-0400 Heart rate 74 /min DO Elvira Bunting Work Phone: [facility] 12-11-2022 13:53-0400 Respiratory rate 16 /min DO Elvira Bunting Work Phone: [facility] 12-11-2022 13:53-0400 SaO2% (BldA) [Mass fraction] 98 % DO Elvira Bunting Work Phone: [facility] 12-11-2022 13:53-0400 Systolic blood pressure 125 mm[Hg] DO Elvira Bunting Work Phone: [facility] 12-11-2022 11:28-0400 Body height 182.88 cm DO Elvira Bunting Work Phone: [facility] 12-11-2022 11:28-0400 Body weight 78.92 kg DO Elvira Bunting Work Phone: [facility] 11-11-2022 07:42-0400 Body height 185.42 cm DO Elvira Bunting Work Phone: [facility] 11-11-2022 07:42-0400 Body weight 104.32 kg DO Elvira Bunting Work Phone: [facility] 10-08-2022 08:08-0400 Blood Pressure Location Sugey Lue [facility] 10-08-2022 08:08-0400 Diastolic blood pressure 96 mm[Hg] Sugey Lue [facility] 10-08-2022 08:08-0400 Heart rate 98 /min Sugey Lue [facility] 10-08-2022 08:08-0400 Systolic blood pressure 137 mm[Hg] Sugey Lue [facility] 09-10-2022 09:34-0400 Blood Pressure Location Sugey Lue [facility] 09-10-2022 09:34-0400 Diastolic blood pressure 89 mm[Hg] Sugey Lue [facility] 09-10-2022 09:34-0400 Heart rate 86 /min Sugey Lue [facility] 09-10-2022 09:34-0400 Respiratory rate 16 /min Sugey Lue [facility] 09-10-2022 09:34-0400 Systolic blood pressure 140 mm[Hg] Sugey Lue [facility] 03-27-2022 15:30-0400 Body height 182.88 cm Elvira R Bunting Work Phone: [facility] DO Work Phone: 03-27-2022 15:30-0400 Body mass index (BMI) [Ratio] 26.72 kg/m2 Elvira R Bunting Work Phone: [facility] DO Work Phone: 03-27-2022 15:30-0400 Body surface area Derived from formula 2.12 m2 Elvira R Bunting Work Phone: [facility] DO Work Phone: 03-27-2022 15:30-0400 Body weight 89.36 kg Elvira R Bunting Work Phone: [facility] DO Work Phone: 03-27-2022 15:30-0400 Diastolic blood pressure 80 mm[Hg] Elvira R Bunting Work Phone: [facility] DO Work Phone: 03-27-2022 15:30-0400 Heart rate 68 /min Elvira R Bunting Work Phone: [facility] DO Work Phone: 03-27-2022 15:30-0400 Systolic blood pressure 126 mm[Hg] Elvira R Bunting Work Phone: [facility] DO Work Phone: 12-24-2021 08:22-0400 Blood Pressure Location Mike Alves Jr. [facility] 12-24-2021 08:22-0400 Diastolic blood pressure 79 mm[Hg] Mike Alves Jr. [facility] 12-24-2021 08:22-0400 Heart rate 100 /min Mike Alves Jr. [facility] 12-24-2021 08:22-0400 Respiratory rate 16 /min Mike Alves Jr. [facility] 12-24-2021 08:22-0400 Systolic blood pressure 107 mm[Hg] Mike Alves Jr. [facility] Encounters Encounter Date Encounter Type Care Provider Facility Start: 02-17-2024 ambulatory [facility] Start: 08-13-2023 End: 08-13-2023 Patient encounter procedure Sugey Johnse [facility] [place] Start: 08-07-2023 End: 08-07-2023 ambulatory Elvira Bunting Facility:[facility] Start: 07-27-2023 Telephone encounter Yulisa Lewis php architect Center Comment on above: Insurance Authorizat ion (Tacrolimus ) Start: 05-27-2023 End: 05-28-2023 ambulatory Sugey MShaylee Chandler Facility:[facility] [place] [place] Start: 05-27-2023 End: 05-27-2023 Patient encounter procedure Sugey SimonShaylee Chandler [facility] Start: 05-04-2023 End: 05-04-2023 ambulatory Elvira Bunting Facility:[facility] Start: 05-04-2023 End: 05-04-2023 ambulatory DO Elvira Bunting Work Phone: [facility] Work Phone: Start: 05-04-2023 End: 05-04-2023 Patient encounter procedure DO Elvira Bunting Work Phone: [facility]-Pacemaker Check Start: 04-10-2023 End: 04-10-2023 ambulatory [facility] Ambulatory Start: 04-10-2023 End: 04-10-2023 Office outpatient visit 15 minutes Shea Brannon MD Work Phone: [facility] Comment on above: Sick sinus syndrome (CMS/HCC) (Primary Dx); Essential hypertension; Mixed hyperlipidemia; Overweight with body mass index (BMI) of 26 to 26.9 in adult; Liver transplanted (CMS/HCC); Pacemaker Start: 02-25-2023 End: 02-26-2023 ambulatory Sugey SimonShaylee Chandler Facility:[facility] [place] [place] Start: 02-25-2023 End: 02-25-2023 Patient encounter procedure Sugey SimonShaylee Chandler [facility] [place] Start: 02-23-2023 Telephone encounter Yulisa Lewis RN [facility] Comment on above: Patient Update; Sandeevesta rs (New standing lab order ) Start: 01-15-2023 End: 01-15-2023 ambulatory Elvira Bunting Facility:[facility] Start: 01-15-2023 End: 01-15-2023 ambulatory DO Elvira Bunting Work Phone: [facility] Work Phone: Start: 01-15-2023 End: 01-15-2023 Patient encounter procedure DO Elvira Bunting Work Phone: [facility] Work Phone: Start: 01-01-2023 End: 01-01-2023 ambulatory Imad Asaad Other [employer] Other Start: 01-01-2023 Patient encounter procedure Imad Asaad [facility] Start: 12-11-2022 End: 12-11-2022 ambulatory Imad Asaad Facility:[facility] Start: 12-11-2022 End: 12-11-2022 Admission to same day surgery center DO Elvira Bunting Work Phone: [facility] Work Phone: Start: 12-08-2022 End: 12-08-2022 ambulatory Imad Asaad Other [employer] Other Start: 12-08-2022 Telephone encounter Imad Asaad [facility] Start: 11-28-2022 End: 11-28-2022 ambulatory Imad Asaad Other [employer] Other Start: 11-28-2022 Telephone encounter Imad Asaad [facility] Start: 11-12-2022 End: 11-12-2022 ambulatory Imad Asaad Other [facility] Other Start: 11-12-2022 Telephone encounter Sheila [facility] Start: 11-11-[address] Elvira Schultz Facility:[id number] Start: 11-11-2022 End: 11-11-2022 ambulatory Sugey Arteaga Facility:[facility] Start: 11-11-2022 End: 11-11-2022 ambulatory DO Elvira Bunting Work Phone: [facility] Work Phone: Start: 11-11-2022 End: 11-11-2022 Patient encounter procedure DO Elvira Bunting Work Phone: [facility]MRI Main [place] Work Phone: Start: 11-06-2022 End: 11-06-2022 ambulatory Elvira Schultz Facility:[facility] Start: 11-06-2022 End: 11-06-2022 Patient encounter procedure DO Elvira Bunting Work Phone: [facility]-Lab Main [place] Work Phone: Start: 10-31-2022 End: 10-31-2022 Patient encounter procedure DO Elvira Bunting Work Phone: [facility]-Pacemaker Check Start: 10-31-2022 End: 10-31-[address] Elvira Schultz Facility:[id number] Start: 10-20-2022 End: 10-21-[address] ELVIRA SCHULTZ Facility:[facility] Start: 10-09-2022 End: 10-09-[address] Elvira Schultz Facility:[id number] Start: 10-09-2022 End: 10-09-2022 ambulatory DO Elvira Bunting Work Phone: [facility] Work Phone: Start: 10-09-2022 End: 10-09-2022 Patient encounter procedure DO Elvira Bunting Work Phone: [facility] Start: 10-08-2022 End: 10-09-2022 ambulatory Sugey Arteaga Facility:[facility] [place] [place] Start: 10-08-2022 End: 10-08-2022 Patient encounter procedure Sugey Arteaga [facility] [place] Start: 09-26-2022 End: 09-26-[address] ELVIRA SCHULTZ Facility: Start: 09-22-2022 End: 09-23-2022 ambulatory Sugey Arteaga [facility] Start: 09-22-2022 End: 09-22-2022 Patient encounter procedure Sugey Arteaga [facility] Start: 09-17-2022 End: 09-18-2022 ambulatory [facility] Facility:[facility] Start: 09-10-2022 End: 09-11-2022 ambulatory Sugey Arteaga Facility:[facility] [place] Start: 09-10-2022 End: 09-10-2022 Patient encounter procedure Sugey Arteaga [facility] [place] Start: 09-03-2022 Refill Nely parker APRN.CNP Work Phone: [facility] Comment on above: Refill Request Start: 08-19-2022 End: 08-20-[address] ELVIRA SCHULTZ Facility:[facility] Start: 07-22-2022 End: 07-23-[address] ELVIRA SCHULTZ Facility:[facility] Start: 06-16-2022 End: 06-17-[address] ELVIRA SCHULTZ Facility:[facility] Start: 05-19-2022 End: 05-20-[address] ELVIRA SCHULTZ Facility:[facility] Start: 05-14-2022 Rx Renewal Elvira Pizano ng Work Phone: [facility] DO Work Phone: Start: 04-30-[address] Elvira Schultz Facility:[id number] Start: 04-30-2022 End: 04-30-2022 ambulatory DO Elvira Schultz Work Phone: [facility] Work Phone: Start: 04-30-2022 End: 04-30-2022 Patient encounter procedure DO Elvira Schultz Work Phone: [facility]-Pacemaker Check Start: 04-21-2022 End: 04-22-2022 ambulatory DOCTOR MISC Facility:[facility]1 Start: 03-27-2022 Office outpatient vi sit 15 minutes Elvira Foxmaggie Work Phone: -[facility] DO Work Phone: Start: 03-27-[address] Shea Brannon Facility:[id number] Start: 03-17-2022 End: 03-18-2022 ambulatory DOCTOR MISC Facility:[facility] Start: 02-26-2022 End: 02-26-2022 Patient encounter procedure VINICIUS E YVONNE [facility] Start: 02-18-2022 End: 02-19-[address] ELVIRA SCHULTZ Facility:[facility]1 Start: 01-22-2022 Encounter for preprocedural laboratory examination DR MIKE June [facility] Start: 01-22-2022 End: 01-22-[address] ELVIRA SCHULTZ Facility:[facility]1 Start: 01-21-2022 End: 01-22-[address] MIKE June Facility:[facility]1 Start: 01-21-2022 End: 01-22-2022 Encounter for preprocedural laboratory examination DR MIKE June Facility:[facility]1 Start: 01-14-2022 Encounter for preprocedural cardiovascular examination DR MIKE June [facility] Start: 01-13-2022 End: 01-14-2022 Encounter for preprocedural cardiovascular examination DR ELVIRA SCHULTZ Facility:[facility] Start: 01-13-2022 End: 01-14-[address] ELVIRA SCHULTZ Facility:[facility] Start: 01-07-2022 Rx Renewal Shea gill MD Work Phone: [facility] 250 DO Work Phone: Start: 12-24-2021 End: 12-24-2021 Patient encounter procedure Mike Alves Jr. [facility] Start: 12-23-2021 Telephone encounter Shea umanzor MD Work Phone: [facility] 600 DO Work Phone: Start: 12-21-2021 End: 12-22-[address] ELVIRA SCHULTZ Facility:[facility]1 Start: 12-17-2021 End: 12-18-[address] ELVIRA SCHULTZ Facility:[facility]1 Start: 11-21-2021 End: 11-22-[address] ELVIRA SCHULTZ Facility:[facility]1 Start: 11-08-2021 Refill Cesar Borrego MD Work Phone: [facility] Comment on above: Refill Request Start: 10-17-2021 Telephone encounter Yulisa Lewis RN [facility] Center Comment on above: Opened In Error Start: 09-15-2021 Refill Nely parker APRN.PATTERN SCRATCHER Work Phone: [facility] Comment on above: Refill Request Start: 05-13-2021 Rx Renewal Shea gill MD Work Phone: [facility] 250 DO Work Phone: Start: 03-26-2017 Ambulatory SHEA BRANNON Facedmond lity:[id number] Procedures Date Procedure Procedure Detail Performing Clinician Start: 04-09-2023 H/O: liver recipient Liver transplanted Shea Brannon MD Work Phone: Start: 02-18-2023 Lipid 1996 panel - Serum or Plasma Taqueria Lewis RN Start: 01-15-2023 Dual energy X-ray absorptiometry DO [employer] [facility] [place] Work Phone: Start: 12-11-2022 Esophagogastroduodenoscopy DO Elvira garciag Work Phone: Start: 11-11-2022 MR prostate wo/w con DO Elvira Schultz Work Phone: Start: 11-06-2022 Ova and Parasite Result 1 DO Elvira Richard ing Work Phone: Start: 11-06-2022 Ova OR parasites identification DO Lloydri n [place] Work Phone: Start: 11-06-2022 Stool culture for bacteria DO Elvira serrano Work Phone: Start: 09-22-2022 Cystoscopy Sugey Chandler Start: 08-19-2022 PSA screening DOCTOR MISC Comment on above: Performed By: #### BOX #### [facility] [address] [address] [address] Yogi Naidu Start: 01-22-2022 Transrectal biopsy of prostate using ultrasound guidance Sugey Artegaa Start: 12-21-2021 PSA screening DOCTOR MISC Comment on above: Performed By: #### ERUR, UMICRO #### [facility] [address] [address] [address] Yogi Naidu Start: 11-09-2019 Transrectal biopsy of prostate using ultrasound guidance Mike Alves Jr. Start: 05-19-2018 Transrectal biopsy of prostate using ultrasound guidance Mike Alves Jr. Start: 01-19-2015 H/O: liver recipient Liver transplanted Nely Ibarra APRN.PATTERN SCRATCHER Work Phone: Start: 02-11-2012 Colonoscopy Nely Ibarra APRN.CNP Work Phone: Appendectomy Mike June Appendectomy Shea Brannon MD Work Phone: Biopsy of prostate Shea Brannon MD Work Phone: Comment on above: Aug 06; Cardiac pacemaker, d evice (physical object) Mike Alves Jr. Colonoscopy Mike June Colonoscopy Shea Brannon MD Work Phone: Comment on above: 15Jun2011; H/O: liver recipient Liver repla alessandro by transplant (HCC) Nely Ibarra CABLE FORMER.PATTERN SCRATCHER Work Phone: H/O: liver recipient Transplante d liver (HCC) Cesar Borrego MD Work Phone: H/O: liver recipient Liver transplanted Simon Brannon MD Work Phone: H/O: liver recipient Liver trans plant recipient DO Elivrafer Foxting Work Phone: H/O: liver recipient Liver repla alessandro by transplant (HCC) Nely Ibarra CABLE FORMER.PATTERN SCRATCHER Work Phone: H/O: liver recipient Liver trans planted (CMS/HCC) Shea Brannon MD Work Phone: Hernia repair Shea Brannon MD Work Phone: Surgical procedure Shea Brannon MD Work Phone: Comment on above: vein removal from leg; Tonsillectomy Mike ch Transplantation of liver Elsy Brannon MD Work Phone: Transplantation of liver Deanne Arteaga Plan of Treatment Date Care Activity Detail Author Start: 02-19-2028 Lipid panel Lipid Screening [facility] Start: 02-19-2028 LIPID SCREEN LIPID SCREEN [facility] Start: 07-22-2027 LIPID SCREEN LIPID SCREEN [facility] Start: 10-15-2026 LIPID SCREEN LIPID SCREEN [facility] Start: 08-19-2026 LIPID SCREEN LIPID SCREEN [facility] Start: 06-16-2026 Diabetes Screening Diabetes Screening [facility] Start: 02-18-2026 DIABETES SCREEN DIABETES SCREEN [facility] Start: 08-19-2025 DIABETES SCREEN DIABETES SCREEN [facility] Start: 10-15-2024 DIABETES SCREEN DIABETES SCREEN [facility] Start: 08-19-2024 DIABETES SCREEN DIABETES SCREEN [facility] Start: 04-15-2024 End: 04-15-2024 Patient encounter procedure 04/15/2024 8:30 AM EDT Office Visit [facility] [address] [place] [id number] Shea Brannon MD [address] [place] [address] [facility] Start: 06-15-2023 Advance Directive Discussion Advance Directive Discussion [facility] Start: 06-15-2023 Depression Assessment Depression Assessment [facility] Start: 04-10-2023 FUV, Provider: Shea Brannon, Status: Pen, Time: 8:30 AM FUV, Provider: Shea Brannon, Status: Pen, [facility]: 8:30 AM [facility] Work Phone: Start: 02-13-2023 Influenza vaccination INFLUENZA (#1) [facility] Start: 12-11-2022 [facility] Start: 06-15-2022 ADVANCE DIRECTIVE DISCUSSION ADVANCE DIRECTIVE DISCUSSION [facility] Start: 06-15-2022 DEPRESSION ASSESSMENT DEPRESSION ASSESSMENT [facility] Start: 02-13-2022 Influenza vaccination [facility] Start: 01-13-2022 FUV, Provider: Shea Brannon, Status: Pen, Time: 8:20 AM FUV, Provider: Shea Brannon, Status: Pen, [facility]: [facility] Work Phone: Start: 12-06-2021 FUV, Provider: Shea Brannon, Status: Pen, Time: 8:30 AM FUV, Provider: Shea Brannon, Status: Pen, Time: 8:30 AM [facility] 250 DO Work Phone: Start: 06-15-2021 ADVANCE DIRECTIVE DISCUSSION ADVANCE DIRECTIVE DISCUSSION [facility] Start: 04-27-2021 Pneumococcal Vaccine: 65+ Years (3 - PPSV23 or PCV20) Pneumococcal Vaccine: 65+ Years (3 - PPSV23 or PCV20) [facility] Start: 06-22-2020 Pneumococcal Vaccine: 65+ (3 of 3 - PPSV23 or PCV20) Pneumococcal Vaccine: 65+ (3 of 3 - PPSV23 or PCV20) [facility] [facility]: [facility]2020 Shingrix Vaccine (2 of 2) Shingrix Vaccine (2 of 2) [facility] Start: 06-22-2020 Zoster Vaccines (2 of 2) Zoster Vaccines (2 of 2) [facility] Start: 10-26-2017 PNEUMOVAX AGE 65 AND OVER WITH 5YR LOOKBACK (#1) PNEUMOVAX AGE 65 AND OVER WITH 5YR LOOKBACK (#1) [facility] Start: 2017 Abdominal aortic aneurysm screening Abdominal Aortic Aneurysm (AAA) Screening [facility] Start: 2017 ADULT PREVNAR ADULT PREVNAR [facility] Start: 2017 ADULT PREVNAR-13 ADULT PREVNAR-13 [facility] Start: 10-26-2013 PNEUMOCOCCAL: 65+ (2 - PCV) PNEUMOCOCCAL: 65+ (2 - PCV) [facility] Start: 02-10-2013 Colonoscopy COLONOSCOPY [facility] Start: 02-10-2013 COLORECTAL CANCER SCREENING COLORECTAL CANCER SCREENING [facility] Start: 02-10-2013 Screening for malignant neoplasm of colon [facility] Start: 11-23-2012 HEPATITIS A (2 of 3 - Hep A Twinrix risk 3-dose series) HEPATITIS A (2 of 3 - Hep A Twinrix risk 3-dose series) [facility] Start: 11-23-2012 Hepatitis A Vaccines (2 of 3 - Hep A Twinrix risk 3-dose series) Hepatitis A Vaccines (2 of 3 - Hep A Twinrix risk 3-dose series) [facility] Start: 11-23-2012 HEPATITIS B (2 of 3 - Hep B Twinrix risk 3-dose series) HEPATITIS B (2 of 3 - Hep B Twinrix risk 3-dose series) [facility] Start: 11-23-2012 Hepatitis B Vaccines (2 of 3 - Hep B Twinrix risk 3-dose series) Hepatitis B Vaccines (2 of 3 - Hep B Twinrix risk 3-dose series) [facility] Start: 2012 RSV Vaccine (1 - 1-dose 60+ series) RSV Vaccine (1 - 1-dose 60+ series) [facility] Start: 2002 SHINGRIX VACCINE (1 of 2) SHINGRIX VACCINE (1 of 2) [facility] Start: 1997 COLOGUARD (FIT-DNA) COLOGUARD (FIT-DNA) [facility] Start: [address] COLONOGRAPHY [facility] Start: 1997 FECAL OCCULT BLOOD FECAL OCCULT BLOOD [facility] Start: 1997 Screening for malignant neoplasm of colon [facility] Start: 1997 SIGMOIDOSCOPY SIGMOIDOSCOPY [facility] Start: 1974 DTaP/Tdap/Td Vaccines (1 - Tdap) DTaP/Tdap/Td Vaccines (1 - Tdap) [facility] Start: 1971 SHINGRIX VACCINE (1 of 2) SHINGRIX VACCINE (1 of 2) [facility] Start: 1971 Urine microalbumin profile [facility] Start: 1964 Adult depression screening assessment DEPRESSION SCREENING [facility] Start: 1964 COVID-19 VACCINE (1) COVID-19 VACCINE (1) [facility] Start: 1957 COVID-19 VACCINE (#1) COVID-19 VACCINE (#1) [facility] Start: 1952 COVID-19 VACCINE (#1) COVID-19 VACCINE (#1) [facility] Start: 1952 ABDOMINAL AORTIC ANEURYSM SCREENING ABDOMINAL AORTIC ANEURYSM SCREENING [facility] Start: 1952 Abdominal aortic aneurysm screening Abdominal Aortic Aneurysm Screening [facility] Start: 1952 Lipid panel Lipid Panel [facility] Start: 1952 Medicare Annual Wellness Visit Medicare Annual Wellness Visit (AWV) [facility] Start: 1952 Screening for malignant neoplasm of colon [facility] Calprotectin [Mass/m ass] in Stool [facility] Ova and parasites identified in Unspecified specimen by Light microscopy [facility] Patient Education Gastritis Esop hageal Dilation Colon Polypectomy (DC) [facility] Work Phone: Potassium [Moles/mas s] in Stool [facility] Immunizations Immunization Date Immunization Notes Care Provider Fa tina 01-27-2023 Flu vaccine, quadrivalent, high-dose, preservative free, age 65y+ (FLUZONE) Shea Brannon MD Work Phone: [facility] Work Phone: 01-27-2023 influenza virus vaccine, unspecified formulation Sugey Arteaga [facility] 05-30-2022 Flu vaccine, quadrivalent, high-dose, preservative free, age 65y+ (FLUZONE) Shea Brannon MD Work Phone: [facility] Work Phone: 05-30-2022 influenza virus vaccine, unspecified formulation Sugey Luvesta [facility] 04-20-2021 Fluad Quadrivalent 0 .5 ML Intramuscular Prefilled Syringe Elvira R Bunting Work Phone: [facility] 250 DO Work Phone: 04-20-2021 influenza virus vaccine, unspecified formulation Sugey Lue [facility] 04-27-2020 Fluad Quadrivalent 0 .5 ML Intramuscular Prefilled Syringe Elvira R Bunting Work Phone: [facility] 250 DO Work Phone: 04-27-2020 influenza virus vaccine, unspecified formulation Sugey Lue [facility] 04-27-2020 pneumococcal conjuga te vaccine, 13 valent Elvira R Bunting Work Phone: [facility] 04-27-2020 zoster vaccine recombinant Elvira R Bunting Work Phone: [facility] 03-15-2020 influenza virus vaccine, unspecified formulation Shea Brannon MD Work Phone: [facility] 03-15-2020 influenza, seasonal, injectable Shea Brannon MD Work Phone: [facility] Work Phone: 02-16-2019 influenza virus vaccine, unspecified formulation Sugey Lue [facility] 02-16-2019 influenza, high dose seasonal, preservative-free Elvira R Bunting Work Phone: [facility] 250 DO Work Phone: 06-15-2018 influenza virus vaccine, unspecified formulation Shea Brannon MD Work Phone: [facility] 06-15-2018 influenza, seasonal, injectable Shea Brannon MD Work Phone: [facility] Work Phone: 04-15-2018 influenza virus vaccine, unspecified formulation Shea Brannon MD Work Phone: [facility] 600 DO Work Phone: 02-22-2018 influenza virus vaccine, unspecified formulation Sugey Lue [facility] 02-22-2018 influenza, high dose seasonal, preservative-free Elvira R Bunting Work Phone: [facility] 250 DO Work Phone: 02-16-2017 influenza virus vaccine, unspecified formulation Shea Brannon MD Work Phone: [facility] 600 DO Work Phone: 02-11-2017 influenza virus vaccine, unspecified formulation Sugey Arteaga [facility] 02-11-2017 influenza, injectabl e, quadrivalent, preservative free Shea Brannon MD Work Phone: [facility] Work Phone: 04-23-2016 influenza virus vaccine, unspecified formulation Sugey Lue [facility] 04-23-2016 influenza, injectabl e, quadrivalent, preservative free Elvira R Bunting Work Phone: [facility] 250 DO Work Phone: 04-12-2015 influenza virus vaccine, unspecified formulation Sugey Luvesta [facility] 04-12-2015 influenza, injectabl e, quadrivalent, preservative free Elvira R Bunting Work Phone: [facility] 250 DO Work Phone: 10-26-2012 hepatitis A and hepatitis B vaccine Nely Ibarra [employer]ABLE [employer]MER[employer] SCR[employer]ER Work Phone: [facility] 10-26-2012 pneumococcal polysaccharide vaccine, 23 valent Nely Ibarra CABLE FORMER.PATTERN SCRATCHER Work Phone: [facility] 10-26-2012 hepatitis B vaccine, unspecified formulation Nely Ibarra CABLE FORMER.PATTERN SCRATCHER Work Phone: [facility] Payers Date Payer Category Payer Self-pay [id number] 2021 Medicare ANTHEM MEDICARE ANTHEM MEDICARE ADVANTAGE [id number] 2021-Present [address] [place] [address] [id number] 2021 Unknown ANTHEM BLUE CROS S AND BLUE SHIELD ANTHEM MEDIBLUE ACCESS [id number] 2021-Present [phone] [address] [place] [address] PPO [id number] 2019 Unknown 1959 Medicare [id number] 1952 Unknown [id number] 2.16.840.1.103462.3.579.2.593 1952 Unknown [id number] 2.16.840.1.752673.3.579.2.593 1952 Unknown [id number] 2.16.840.1.259962.3.579.2.593 1952 Unknown [id number] 2.16.840.1.680380.3.579.2.593 1952 Unknown [id number] 2.16.840.1.400452.3.579.2.593 1952 Unknown [id number] 2.16.840.1.586904.3.579.2.593 1952 Unknown [id number] 2.16.840.1.901611.3.579.2.593 1952 Unknown [id number] 2.16.840.1.520210.3.579.2.593 1952 Unknown [id number] 2.16.840.1.602547.3.579.2.593 1952 Unknown [id number] 2.16.840.1.947752.3.579.2.593 1952 Unknown [id number] 2.16.840.1.719325.3.579.2.593 1952 Unknown [id number] 2.16.840.1.057229.3.579.2.593 1952 Unknown [id number] 2.16.840.1.549140.3.579.2.593 1952 Unknown [id number] 2.16.840.1.665137.3.579.2.593 1952 Unknown [id number] 2.16.840.1.558533.3.579.2.593 1952 Unknown [id number] 2.16.840.1.634767.3.579.2.593 1952 Unknown [id number] 2.16.840.1.014403.3.579.2.593 1952 Unknown [id number] 2.16.840.1.579139.3.579.2.356 1952 Unknown [id number] 2.16.840.1.676095.3.579.2.356 1952 Unknown [id number] 2.16.840.1.035404.3.579.2.356 1952 Unknown [id number] 2.16.840.1.007881.3.579.2.356 1952 Unknown [id number] 2.16.840.1.365030.3.579.2.356 1952 Unknown [id number] 2.16.840.1.005849.3.579.2.124 4 1952 Unknown [id number] 2.16.840.1.704010.3.579.2.727 1952 Unknown [id number] 2.16.840.1.325170.3.579.2.727 1952 Unknown [id number] 2.16.840.1.800984.3.579.2.727 1952 Unknown [id number] 2.16.840.1.518198.3.579.2.727 1952 Unknown [id number] 2.16840.1.813316.3.579.2.727 1952 Unknown [id number] 2.16840.1.437190.3.579.2.727 Medicare Medicare [id number] Unknown [id number] Unknown HCAP/HFA/FAP Active [id number] Unknown [id number] 2.840.1.362042.3.579.2.531 Unknown [id number] 2.840.1.998560.3.579.2.531 Unknown [id number] 2.16840.1.165327.3.579.2.531 Unknown [id number] 2.840.1.204617.3.579.2.531 Unknown [id number] 2.840.1.846710.3.579.2.531 Unknown [id number] 2.840.1.197021.3.579.2.531 Unknown [id number] 2.840.1.542881.3.579.2.531 Unknown [id number] 2.840.1.889258.3.579.2.531 Social History Date Type Detail Facility Start: 11-29-2012 End: 12-24-2021 Tobacco smoking status MSIS Ex-smoker [facility] Start: 02-18-2017 Alcohol intake Current non-dr rosa of alcohol (finding) [facility] Start: 1950 Sex Assigned At Not on file C [facility] Start: 08-13-2023 Tobacco smoking status Never [facility] [place] Start: 12-11-2017 End: 05-21-2020 Sex Assigned At Male [facility] [place] Start: 12-11-2017 End: 05-21-2020 Caffeine use Caffeine use [facility] 600 DO Work Phone: Comment on above: 1.5 cups of coffee a nd a quart of Iced Tea daily; quit around ; 1.5 cups of coffee; Start: 1950 Sex Assigned At Male K[facility] End: 06-15-1982 History of tobacco use Current smoker [facility] Start: 11-29-2012 End: 04-10-2023 Tobacco use and exposure Smokeless tobacco non-user [facility] End: 06-15-1982 History of tobacco use Cigarette Smoker [facility] Work Phone: Start: 04-10-2023 Alcohol intake Lifetime non-d nella (finding) [facility] Work Phone: Start: 03-31-2023 End: 04-10-2023 Exposure to SARS-CoV-2 (event) Not sure [facility] Medical Equipment Procedure Code Equipment Code Equipment [...] 04-14-2018 Insertion, pacemaker PACEMAKER ASSURITY MRI RF DR CHIANG Start: 04-14-2018 Insertion, pacemaker LEAD ISOFLEX OPTIMUS FDA Start: 04-14-2018 Insertion, pacemaker LEAD PACEMAKER TENDRIL STS FDA Start: 04-14-2018 Insertion, pacemaker PACEMAKER ASSURITY MRI RF FDA Start: 04-14-2018 Goals Date Patient Goal Desired Activity /State Functional Status Date Assessment Result Facility 08-13-2023 Functional Status N/A [facility] 05-27-2023 Functional Status N/A [facility] 02-25-2023 Functional Status N/A [facility] 10-08-2022 Functional Status N/A [facility] 09-15-2022 Functional Status N/A [facility] 09-10-2022 Functional Status N/A [facility] 02-26-2022 Functional Status N/A [facility] 12-24-2021 Functional Status N/A [facility] Clinical Notes 02-07-2015 to 08-13-2023 Telephone Encounter - Yulisa Lewis RN - 07/28/2023 1:55 PM ESTTelephone Encounter - Yulisa Lewis RN - 07/27/2023 4:00 PM Fabrice Brannon MD - 04/10/2023 8:30 AM EDT Note Date & Type Note Facility 08-13-2023 Hospital Discharge instructions Patient Education 08/13/2023 09:41:37 Benign Prostatic Hyperplasia Benign Prostatic Hyperplasia Benign [...] urethra. Follow these instructions at home: Take bvtd-exe-dyxlxcd and prescription medicines only as told by [...] provider. Document Revised: 12/18/2021 Document Reviewed: 12/18/2021 [employer]ak[employer] Patient Education 2022 Decalog. Follow Up Care 08/11/2023 16:25:46 With:Chandler CHAVEZ, TAMEKA Mendoza, URO Address: When: Unknown [facility] 07-28-2023 Miscellaneous Notes PA denied, pharmacy was billing incorrectly. Medicare paid for OLT and tacrolimus should be billed under part B. Pharmacy billing incorrectly. Yulisa Lewis RN, BSN, [facility] [employer] Tacrolimus PA submitted via covermyAquaspys website. [place]: [id number] Awaiting coverage determination. Yulisa Lewis RN, BSN, [facility] [employer] Research Associate documented in this encounter [facility] 05-27-2023 Hospital Discharge instructions Patient Education 05/27/2023 [...] urethra. Follow these instructions at home: Take omhg-img-xqiyemh and prescription medicines only as told by [...] provider. Document Revised: 12/18/2021 Document Reviewed: 12/18/2021 Chat[employer] Patient Education 2022 Decalog. Follow Up Care 02/25/2023 09:53:13 With:Chandler CHAVEZ, Sugey Cummins, TAMEKA, URO Address: When:Within 9 Month(s) Comments:w/PSA F&T [facility] 04-10-2023 History of Present illness Narrative Subjective Susan Sherman is a 73 y.o. male Chief [...] (CMS/HCC) 6. Pacemaker documented in this encounter [facility] Work Phone: 04-10-2023 Instructions Reina Wagner LPN [...] of your visit. documented in this encounter [facility] Work Phone: 02-25-2023 Hospital Discharge instructions Patient [...] treatment? Where to find more information [employer]: www.cancer.org [employer]: www.auanet.org Contact a health care [...] provider. Document Revised: 11/25/2021 Document Reviewed: 11/25/2021 [employer] Patient Education 2022 Decalog. Follow Up Care 11/18/2022 14:45:41 With:Chandler CHAVEZ, TAMEKA Mendoza, MARIELLA Address: When:Within 3 Month(s) [facility] [place] 02-23-2023 Miscellaneous Notes Spoke with patient who [...] patent and also faxed to local lab [phone]. Pt verbalized understanding, no further questions at this time. Yulisa Lewis RN, BSN, [facility] [employer] Associate documented in this encounter [facility] 01-01-2023 Evaluation note Encounter Date Diagnosis Assessment Notes Dec, Change in bowel habits (ICD-10 - R19.4) Dec, Other dysphagia (ICD-10 - R13.19) [facility] Other 06-16-2023 Evaluation note* Encounter Date Diagnosis Assessment Notes Treatment Notes Treatment Clinical Notes Nov, Age-related osteoporosis without current pathological fracture (ICD-10 - M81.0) [facility] Other 04-26-2023 Hospital Discharge instructions Patient Education [...] including vitamins, herbs, eye drops, creams, and abjc-xgr-ldfwbpx medicines. Any problems you or family members [...] provider tells you to take them. Taking gvph-sey-gglkzyt medicines, vitamins, herbs, and supplements. Surgery safety [...] provider. Document Revised: 02/25/2022 Document Reviewed: 02/25/2022 [employer] Patient Education 2022 Decalog. Follow Up Care 09/22/2022 08:19:53 With:Chandler CHAVEZ, TAMEKA Mendoza, URO Address: [address] [place] [address]- [phone] When: Unknown [facility] 04-10-2023 Note [id number]:127[facility] 09-22-2022 NoteCystoscopy ? Voiding after [...] if you have a fever over 100 degrees.[facility] 09-22-2022 Hospital Discharge instructions Patient [...] degrees. Follow Up Care 09/10/2022 10:23:36 With:Sugey Arteaga Address: [address] [place] [address] [phone] Business (1) [facility] Greg Moreau [address] [address]- [phone] Business (1) When: Unknown Comments:Office to schedule follow up in 2-4 wks to review MRI prostate and BPH procedures [facility]03-29-2023 Hospital Discharge instructions Patient Education 09/10/2022 10:13:37 [...] including vitamins, herbs, eye drops, creams, and knde-sxn-pfvutfb medicines. This also includes: ?Medicines to assist [...] 07/04/2005 Document Revised: 05/14/2018 Document Reviewed: 03/08/2018 [employer] Patient Education 2020 Decalog. 09/10/2022 10:13:27 Benign Prostatic Hyperplasia Benign Prostatic [...] urethra. Follow these instructions at home: Take ydxi-bgn-tineebz and prescription medicines only as told by [...] 06/01/2006 Document Revised: 04/26/2019 Document Reviewed: 07/06/2017 [employer] Patient Education 2020 Decalog. Follow Up Care 02/26/2022 15:32:46 With:Chandler CHAVEZ, TAMEKA Mendoza, URO Address: When:Within 6 Month(s) Comments:w/PSA [facility] 09-14-2022 Hospital Discharge instructions Patient Education 02/26/2022 [...] have oneof these risk factors: ?Being of -Iraqi descent. ?Having a family history of prostate [...] you: Are older than age 55. Are -Iraqi. Have a father, brother, or uncle who [...] 03/12/2018 Document Revised: 05/14/2018 Document Reviewed: 03/12/2018 [employer] Patient Education 2020 Decalog. Follow Up Care 01/02/2022 11:31:28 With:VINICIUS RUSSELL PA-C, URL Address: [address] [address] When:6 months Comments:W/ PSA [facility] 07-12-2022 Hospital Discharge instructions Patient Education 12/24/2021 [...] including vitamins, herbs, eye drops, creams, and qmyq-ijg-kxuabfv medicines. This also includes: ?Medicines to assist [...] 07/04/2005 Document Revised: 05/14/2018 Document Reviewed: 03/08/2018 [employer] Patient Education 2020 Decalog. Follow Up Care 06/18/2021 08:41:53 With:Long More MD, Mike Cox URO Address: [facility] [address], [place] [address]- When: Unknown [facility] 05-05-2022 Miscellaneous Notes* Telephone Encounter - Yulisa Lewis RN - 10/17/2021 8:51 AM EDT FK reviewed, no changes. [facility] of Past illness Narrative* Problem Noted [...] HE grade 4, serum ammonia 228 at [place] [facility] , admitted 3/ morning. - Per family, minor confusion since the last 6 months inspite of being on medications. - Intubated en route to [facility] for airway protection 07/17 AMS. - Diagnostic para, culture NGTD, negative for SBP by counts. - Back to baseline MS 3 -extubated PLAN: - Lactulose, zinc and rifaximin. - Follow cultures. DVT prophylaxis 08/14/2012 02/18/2017 Overview: Plan: - SQ heparin. - Pepcid for GI prophylaxis. Mechanically assisted ventilation 08/14/2012 02/18/2017 Overview: - Intubated on 08/14 en route from [facility] for airway protection. - Tolerating PSV. PLAN: [...] of this encounter (statuses as of 09/16/2021) [facility] History of Past illness Narrative* Problem Noted [...] HE grade 4, serum ammonia 228 at [place] [facility] , admitted 08/13 morning. - Per family, minor confusion since the last 6 months inspite of being on medications. - Intubated en route to [facility] for airway protection 2/2 AMS. - Diagnostic para, culture NGTD, negative for SBP by counts. - Back to baseline MS 08/17 -extubated PLAN: - Lactulose, zinc and rifaximin. - Follow cultures. DVT prophylaxis 08/14/2012 02/18/2017 Overview: Plan: - SQ heparin. - Pepcid for GI prophylaxis. Mechanically assisted ventilation 08/14/2012 02/18/2017 Overview: - Intubated on 08/14 en route from [facility] for airway protection. - Tolerating PSV. PLAN: [...] of this encounter (statuses as of 10/17/2021) [facility] History of Past illness Narrative* Problem Noted [...] HE grade 4, serum ammonia 228 at [place] [facility] , admitted 3/ morning. - Per family, minor confusion since the last 6 months inspite of being on medications. - Intubated en route to F for airway protection 2/2 AMS. - Diagnostic para, culture NGTD, negative for SBP by counts. - Back to baseline MS 3/5 -extubated PLAN: - Lactulose, zinc and rifaximin. - Follow cultures. DVT prophylaxis 08/14/2012 02/18/2017 Overview: Plan: - SQ heparin. - Pepcid for GI prophylaxis. Mechanically assisted ventilation 08/14/2012 02/18/2017 Overview: - Intubated on 3 en route from [facility] for airway protection. - Tolerating PSV. PLAN: [...] of this encounter (statuses as of 11/08/2021) [facility] History of Past illness Narrative* Problem Noted [...] HE grade 4, serum ammonia 228 at [place] [facility] , admitted 08/13 morning. - Per family, minor confusion since the last 6 months inspite of being on medications. - Intubated en route to F for airway protection 07/17 AMS. - Diagnostic para, culture NGTD, negative for SBP by counts. - Back to baseline MS 08/17 -extubated PLAN: - Lactulose, zinc and rifaximin. - Follow cultures. DVT prophylaxis 08/14/2012 02/18/2017 Overview: Plan: - SQ heparin. - Pepcid for GI prophylaxis. Mechanically assisted ventilation 08/14/2012 02/18/2017 Overview: - Intubated on 08/14 en route from [facility] for airway protection. - Tolerating PSV. PLAN: [...] of this encounter (statuses as of 09/04/2022) [facility] History of Past illness Narrative* Problem Noted [...] HE grade 4, serum ammonia 228 at [place] [facility] , admitted 3/1 morning. - Per family, minor confusion since the last 6 months inspite of being on medications. - Intubated en route to [facility] for airway protection 2/2 AMS. - Diagnostic para, culture NGTD, negative for SBP by counts. - Back to baseline MS 3/5 -extubated PLAN: - Lactulose, zinc and rifaximin. - Follow cultures. DVT prophylaxis 08/14/2012 02/18/2017 Overview: Plan: - SQ heparin. - Pepcid for GI prophylaxis. Mechanically assisted ventilation 08/14/2012 02/18/2017 Overview: - Intubated on 08/14 en route from [facility] for airway protection. - Tolerating PSV. PLAN: [...] of this encounter (statuses as of 02/24/2023) [facility] History of Past illness Narrative* Problem Noted Date Diagnosed Date Resolved Date SB (acute kidney injury) 02/07/2015 Hepatocellular carcinoma 12/21/201411/2016 Hepatitis C 05/03/2013 02/18/2017 Ascites 11/10/2012 02/18/2017 Portal hypertension 11/10/2012 02/19/20 17 Leucocytosis 08/18/2012 02/18/2017 Overview: Elevated to 15 today PCT 0.19 (3/) Afebrile Fernando cultures NGTD Plan: Repeat PCT [...] HE grade 4, serum ammonia 228 at [place] [facility] , admitted 3/ morning. - Per family, minor confusion since the last 6 months inspite of being on medications. - Intubated en route to [facility] for airway protection 07/17 AMS. - Diagnostic para, culture NGTD, negative for SBP by counts. - Back to baseline MS 3 -extubated PLAN: - Lactulose, zinc and rifaximin. - Follow cultures. DVT prophylaxis 08/14/2012 02/18/2017 Overview: Plan: - SQ heparin. - Pepcid for GI prophylaxis. Mechanically assisted ventilation 08/14/2012 02/18/2017 Overview: - Intubated on 08/14 en route from [facility] for airway protection. - Tolerating PSV. PLAN: - Pressure support, wean vent as tolerated. - Supportive care. Cirrhosis of liver without mention of alcohol 10/18/1902/18/2017 Overview: MELD Score: 15 - Secondary to [...] as of this encounter (statuses as of 07/28/2023) [facility] No data available for this section [facility] evaluation + Plan note Future Appointments Appointment Date:08/26/2022 08:00:00 AM Scheduled Provider:Long More MD, Mike Cox Location:[facility] Appointment Type:URO Office Visit Diagnostic Tests Pending * PSA Total 02/26/22 [facility] evaluation + Plan note Future Appointments Appointment Date:09/11/2022 08:00:00 AM Scheduled Provider: Location:[facility] Appointment Type:Urology CALL PAT FT Appointment Date:09/15/2022 09:45:00 AM Scheduled Provider: Location:[facility] Appointment Type:Urology FT Diagnostic Tests Pending * PSA Total 09/10/22 [facility] evaluation + Plan note Future Appointments Appointment Date:10/08/2022 08:00:00 AM Scheduled Provider:Chandler CHAVEZ, Sugey Cummins Location:[facility] Future Appointments Appointment Date:05/27/2023 09:45:00 AM Scheduled Provider:Sugey Arteaga MD Location:[facility] Appointment Type:URO Office Visit [facility] evaluation + Plan note Future Appointments Appointment Date:02/17/2024 09:45:00 AM Scheduled Provider:Sugey Arteaga MD Location:[facility] Appointment Type:URO Office Visit Diagnostic Tests Pending * PSA Free & Total 05/27/23 [facility] evaluation + Plan note Future Appointments Appointment Date:02/17/2024 09:45:00 AM Scheduled Provider:Sugey Arteaga MD Location:[facility] Appointment Type:URO Office Visit Future Scheduled Tests Laboratory* PSA Free & Total 12/14/23 [facility] Evaluation note* Diagnosis Liver replaced by transplant (HCC) Liver replaced by transplant [facility] Diagnosis Need for prophylactic immunotherapy Transplanted liver (HCC) Liver replaced by transplant documented in this encounter [facility] noteNo assessment information [facility] Work Phone: Evalusfxce note* Diagnosis Liver replaced by transplant (HCC) Liver replaced by transplant documented in this encounter [facility] noteNo [facility] Other Evaluation note* Diagnosis Sick sinus syndrome (CMS/HCC)- Primary Sinoatrial node dysfunction Essential hypertension Unspecified essential hypertension Mixed hyperlipidemia Overweight with body mass index (BMI) of 26 to 26.9 in adult Liver transplanted (CMS/HCC) Liver replaced by transplant Pacemaker Cardiac pacemaker in situ documented in this encounter [facility] Work Phone: Hisxhos general Narrative - Reported* Type Description Date Medical History HISTORY OF HEP C Medical History LIVER TRANSPLANT Medical History prostatism Medical History liver cancer Surgical History APPENDECTOMY Surgical History HERNIA REPAIR Surgical History LIVER TRANSPLANT Surgical History VEIN STRIPPING 2006 Hospitalization History SEE [facility] Other History general Narrative - Reported* Type Description Date Medical History HISTORY OF HEP C Medical History LIVER TRANSPLANT Medical History prostatism Medical History liver cancer Medical History PACE MAKER PLACED Surgical History APPENDECTOMY Surgical History HERNIA REPAIR Surgical History LIVER TRANSPLANT Surgical History VEIN STRIPPING 2006 Surgical History PACE MAKER PLACEMENT Hospitalization History SEE [facility] Other History of Present illness Narrative* Patient [...] Modification * 5. Follow-up in 1 year [facility] DO Work Phone: Progress note No data available for this section [facility] [employer] reason for referral (narrative)* Consultation (Routine) - Authorized Specialty Diagnoses / Procedures Referred By Juan t Referred To Contact Cardiology Diagnoses Sick sinus syndrome (CMS/HCC) Essential hypertension Mixed hyperlipidemia Procedures Follow Up In Cardiology Shea Brannon MD [address], [address] [address] Shea Brannon MD [address], [address] [address] Referral ID Status Reason Start Date Expiration Date V isits Requested Visits Authorized [id number] Authorized 04/10/2023 04/09/2024 1 1 [facility] Work Phone: Summary Purpose Family History No [...] section and content) DATE CREATED AUTHOR 12/08/2017 [facility] DATE CREATED AUTHOR AUTHOR'S ORGANIZ ATION 04/16/2020 [facility] DATE CREATED AUTHOR AUTHOR'S ORGANIZ ATION 10/24/[address] [facility] DATE CREATED AUTHOR AUTHOR'S ORGANIZ ATION 11/23/2022 [facility] DATE CREATED AUTHOR AUTHOR'S ORGANIZ ATION 04/13/2023 [facility] DATE CREATED AUTHOR AUTHOR'S ORGANIZ ATION 05/31/2023 [facility] DATE CREATED AUTHOR AUTHOR'S ORGANIZ ATION 07/30/2023 [facility] DATE CREATED AUTHOR AUTHOR'S ORGANIZ ATION 08/16/2023 [facility] Source Comments (unrecognize d section and content) In the event this informatio n is protected by the Federal Confidentiality of Alcohol and Drug Abuse Patient Records regulations: The Federal rules restrict any use of the information to criminally investigate or prosecute any alcohol or drug abuse patient.[facility] the event this information is protected by the Federal Confidentiality of Alcohol and Drug Abuse Patient Records regulations: The Federal rules restrict any use of the information to criminally investigate or prosecute any alcohol or drug abuse patient.[facility] the event this information is protected by the Federal Confidentiality of Alcohol and Drug Abuse Patient Records regulations: The Federal rules restrict any use of the information to criminally investigate or prosecute any alcohol or drug abuse patient.[facility] the event this information is protected by the Federal Confidentiality of Alcohol and Drug Abuse Patient Records regulations: The Federal rules restrict any use of the information to criminally investigate or prosecute any alcohol or drug abuse patient.[facility] the event this information is protected by the Federal Confidentiality of Alcohol and Drug Abuse Patient Records regulations: The Federal rules restrict any use of the information to criminally investigate or prosecute any alcohol or drug abuse patient.[facility] the event this information is protected by the Federal Confidentiality of Alcohol and Drug Abuse Patient Records regulations: The Federal rules restrict any use of the information to criminally investigate or prosecute any alcohol or drug abuse patient.[facility] Reason for Visit (unrecogniz ed section and content) Reason Comments Refill Request Reason Comments Opened In Error Reason Comments Patient Update Orders New standing lab ord er Reason Comments Follow-up 1y Reason Comments Insurance Authorization [employer] Care Teams (unrecognized sec tion and content) Team Status: Active Member Role Status Dates Elvira Schultz , Primary Care Provider Active Team Status: Inactive Member Role Status Dates Elvira Schultz , Primary Care Provider Active Sugey Arteaga MD Attending Provider Active [employer] Clerk Relationship Specialty Start Date End Date Bunting, Elvira Ray, DO [address] [place] [address] PCP - General Family Practice 01/06/12 Yulisa Lewis RN [facility] [address] [place] [id number] Registered Nurse Transplant Center 07/14/19 [employer] Relationship Specialty Start Date End Date Bunting, Elvira Ray, DO [address] [place] [address] PCP - General Family Practice 01/06/12 Yulisa Lewis RN [facility] [address] [place] [address] Registered Nurse Transplant Center 07/14/19 Team Status: Inactive Member Role Status Dates Elvira Schultz DO Primary Care Provider Active Shea Brannon MD Attending Provider Active [employer] Clerk Relationship Specialty Start Date End Date Bunting, Elvira Ray, DO [address] [place] [address] PCP - General Family Medicine 01/06/12 Yulisa Lewis RN [place] [id number] Registered Nurse Transplant [facility] 07/14/19 Team Status: Inactive Member Role Status Dates Elvira Schultz , Primary Care Provider Active Branden Woodward MD Attending Provider Active Team Status: Inactive Member Role Status Dates Elvira Schultz , DO Primary Care Provider Active Sheila Magallanes MD Attending Provider Active [employer] Clerk Relationship Specialty Start Date End Date Elvira Schultz DO [address] [facility] [place] [address] PCP - General Family Medicine 01/06/12 JohnnyYulisa perez RN [place] [id number] Registered Nurse Transplant [place] 07/14/19 [employer] Clerk Relationship Specialty Start Date End Date Elvira Schultz DO [address] [facility] [place] [address] PCP - General 06/15/99 [employer] Clerk Relationship Specialty Start Date End Date Elvira Schultz DO [address] [facility] [address] PCP - General Family Medicine 01/06/12 [place] [address] Registered Nurse Transplant [place] 07/14/19 Goals (unrecognized section and content) Goals may [...] BE BASED ON THE PRIMARY CLINICAL RECORDS. [facility]. provides no warranty or guarantee of the accuracy or completeness of information in this document.
[2023-08-17 08:53] LABS: Basophils Absolute Auto 0.1 10^3/uL (0.0-0.1); Eosinophils Absolute Auto 0.3 10^3/uL (0.0-0.7); Eosinophils Percent Auto 4.2 % (0.9-7.0); Immature Granulocytes Abs Auto 0.02 10^3/uL (0.00-0.03); Immature Granulocytes Pct Auto 0.3 % (0.0-0.5); Lymphocytes Absolute Auto 0.5 10^3/uL (1.2-3.8); Lymphocytes Percent Auto 7.9 % (20.5-60.0); Mean Corpuscular HGB Conc 32.6 g/dL (29.9-35.2); Mean Corpuscular Hemoglobin 29.4 pg (25.9-34.0); Mean Platelet Volume 9.8 fL (9.5-13.5); Monocytes Absolute Auto 0.5 10^3/uL (0.3-0.8); Monocytes Percent Auto 8.4 % (1.7-12.0); Neutrophils Absolute Auto 4.7 10^3/uL (1.4-6.5); Neutrophils Percent Auto 78.2 % (43.0-75.0); Platelet Count 150 10^3/uL (150-450); Red Blood Count 5.11 10^6/uL (4.70-6.10); Red Cell Distribution Width 13.9 % (11.0-15.0)
[2023-08-17 09:02] LABS: Alanine Aminotransferase 18 U/L (16-63); Albumin Globulin Ratio 1.4; Albumin Level 3.7 g/dL (3.4-5.0); Alkaline Phosphatase 65 U/L (46-116); Anion Gap 12.1; Aspartate Amino Transferase 13 U/L (15-37); BUN Creatinine Ratio 20.8; Bilirubin Total 0.8 mg/dL (0.2-1.0); Calcium 8.5 mg/dL (8.5-10.1); Chloride 108 mmol/L (98-107); Estimated GFR (African America >60 (>=60); Estimated GFR (Non-African Ame 57 (>=60); Globulin 2.7 g/dL; Glucose 92 mg/dL (74-106); Potassium 4.1 mmol/L (3.5-5.1); Sodium 143 mmol/L (136-145); Total Protein 6.4 g/dL (6.4-8.2)
== END 2023-08-17 08:12 | disposition home or self-care (01) ==
LOC: LAB 08:12
PROVIDERS: PCP Family Medicine
DX: K76.9 Liver disease, unspecified (principal); Z48.23 Encounter for aftercare following liver transplant; Z94.4 Liver transplant status; Z41.8 Encounter for other procedures for purposes other than remedying health state; E83.30 Disorder of phosphorus metabolism, unspecified; R73.02 Impaired glucose tolerance (oral)
CPT/HCPCS: 36415; 80053; 85025

== ENCOUNTER 2023-12-14 08:17 | Outpatient (OUT) | payer MEDICARE, SELFPAY ==
--- OUTSIDE RECORDS SUMMARY | 2023-12-14 08:37 | XMS_ITS | CCD ---
Author Organization [facility] Inform ion Partnership [facility] Care Team Providers Care Suction Plate Roller Hand Name Role Phone SHEA BRANNON Unavailable Unavailable BUNTING, ELVIRA R Unavailable Unavailable Unavailable Unavailable Bunting Elvira VASQUEZ Primary Care Provider [phone] Yulisa Lewis RN Unavailable Unavailable BUNTING, ELVIRA R Primary Care Physician [phone] Bunting, Elvira R Unavailable Bunting, DO Felix Primary Care Provider [phone] MD Shea Brannon Attending Provider Bunting Elvira VASQUEZ Primary Care Provider Yulisa Lewis RN Unavailable Unavailable Bunting, DO Elvira Primary Care Provider [phone] MD Sugey Arteaga Attending Provider MISC, DOCTOR [...] LONG June, DR MIKE Cox Consulting Unavaila mason June, DR MIKE Cox Attending Unavaila mason June, DR MIKE Cox Admitting Unavaila ble BUNTING, [...] ble Traboulssi, Dr. Marvin Referring Unavaila ble Joaquin, Dr. Marvin Attending Unavaila ble Bunting, Dr. Elvira Maurer Primary Care Unavaila ble Bunting, Dr. Elvira Maurer Primary Care Unavaila ble Bunting, DO Elvira Primary Care Provider [phone] MD Sugey Arteaga Attending Provider [phone] Bunting DOLloydElvira Ray Primary Care Provider SHEA BRANNON Attending Unavailable BUNTING, ELVIRA RAY Primary Care Unavailable Bunting, DO Elvira Primary Care Provider [phone] MD Branden Woodward Attending Provider Nate Usgey MShaylee Attending Unavailable Lue, Sugey M. Attending Unavailable Lue, Sugey M. Attending Unavailable Lue, Sugey M. Referring Unavailable Lue, Sugey MShaylee Attending Unavailable Lue, Sugey MShaylee Attending Unavailable Lue, Sugey MShaylee Attending Unavailable Lue, Sugey M. Admitting Unavailable Lue, Sugey M. Referring Unavailable Kevin DE LA GARZA Attending Unavailable Bunting DO, Elvira Ray Primary Care Provider Bunting, DO Elvira Primary Care Provider MD Branden Woodward Attending Provider Bunting, Elvira Primary Care Unavailable Branden Woodward Admitting Unavail able Branden Woodward Attending Unavail able Bunting, Elvira Primary Care Unavailable Lue, Sugey M Admitting Unavailable Lue, Sugey M Attending Unavailable Asaad, Imad Attending Unavailable Bunting, Elvira Primary Care Unavailable Asaad, Imad Admitting Unavailable Bunting, Elvira Primary Care Unavailable Branden Woodward Admitting Unavail able Branden Woodward Attending Unavail able Bunting, Elvira Primary Care Unavailable Branden Woodward Admitting Unavail able Branden Woodward Attending Unavail able Asaad, Imad Admitting Unavailable Asaad, Imad Attending Unavailable Bunting, Elvira Primary Care Unavailable Allergies Allergy Classification Reported Allergen(s) Allergy Type Date of Onset Reaction(s) Facility (1 source) No Known Medication Allergies; Translations: [No Known Medication Allergies] Propensity to adverse reactions (disorder) [facility] Repository Medications Current Medications Medication Drug Class(es) Dates Sig (Normalized) Sig (Original) amLODIPine 5 mg oral tablet (20 sources) Dihydropyridine Calcium Channel Sebas Start: 02-18-2017 End: 12-11-2022 take 1 tablet by mouth once daily amLODIPine (NORVASC) 5 mg tablet Take 1 tablet by mouth once daily. 0 02/18/2017 Active Comment on above: Take 1 tablet by elsy th once daily. amylase [id number] unt / lipase 18277 unt / protease 51503 unt delayed release oral capsule (3 sources) Start: 11-12-2022 Creon [id number] UNIT as directed Orally 5 TIMES DAILY (ALLOW FOR 3 MEALS AND 2 SNACKS. for 30 days October, Active ascorbic acid 1000 mg oral tablet (7 sources) Vitamin C Start: 12-11-2022 take 1 g by mouth once daily Ascorbic Acid (Vitamin C) (Vitamin C) 1,000 mg Tablet Active 1 GM PO Daily December 11, 2022 12:00am aspirin 81 mg delayed release oral tablet (14 sources) Platelet Aggregation Inhibitor, Nonsteroidal Anti-inflammatory Drug Start: 01-07-2022 take 81 mg by mouth once daily Aspirin Active 81 MG PO Daily December 11, 2022 12:00am Start: 05-24-2020 aspirin 81 mg oral tablet Refills(s) 0 Start Date: 05/24/20 Status: Ordered take 1 tablet by elsy th once daily Baby Aspirin 81 MG 1 tablet Orally Once a day Active Black Elderberry (4 sources) Start: 12-11-2022 take 2000 mg by mout h once daily Black Elderberry Active 2000 MG PO Daily December 10, 2022 11:00pm Start: 12-11-2022 take 2000 mg by mout h once daily Black Elderberry Active 2000 MG PO Daily December 11, 2022 12:00am Black Elderberry Active cholecalciferol 0.025 mg chewable tablet (7 sources) Vitamin D Start: 12-11-2022 take 1 tablet by mouth once daily Cholecalciferol (Vitamin D3) (Vitamin D3) 25 mcg (1,000 unit) Tablet,Chewable Active 25 MCG PO Daily December 11, 2022 12:00am take 1 capsule by mouth once norman [...] Daily, # 30 tab(s), Refills(s) 11, Pharmacy: [facility]/pharmacy #[id number], 178, cm, 05/27/23 9:52:00 EST, Height/Length Dosing, 80, kg, 05/27/23 9:52:00 EST, Weight Dosing Start Date: 05/27/23 Status: Ordered Start: 02-25-2023 take 1 tablet by elsy th once daily finasteride 5 mg Tab 5 mg = 1 tab(s), Oral, Daily, # 30 tab(s), Refills(s) 11, Pharmacy: [facility]/pharmacy #[id number], 178, cm, 02/25/23 9:11:00 EDT, Height/Length Dosing, 80, kg, 02/25/23 9:11:00 EDT, Weight Dosing Start Date: 02/25/23 Status: Ordered metoprolol tartrate 25 mg oral tablet (20 sources) beta-Adrenergic Sebas Start: 03-24-2017 End: 04-13-2018 take 25 mg by mouth once daily Metoprolol Tartrate Discontinued 25 MG PO Daily March 24, 2017 12:00am April 13, 2018 4:18pm Start: 02-07-2015 End: 05-10-2019 take 25 mg by mouth twice daily Metoprolol Tartrate Ac tive 25 MG PO Twice daily December 11, 2022 12:00am take 1 tablet by elsy th twice daily Metoprolol Succinate ER 25 MG 1 tablet Orally TWICE A D AY Active Comment on above: Take 1 tablet by elsy th twice daily. [facility] Prescription (8 sources) Start: 9 [facility] Prescription Septra 1 tablet by mouth MWF Start Date: 04/19/19 Status: Ordered omeprazole 40 mg delayed release oral capsule (4 sources) Proton Pump Inhibitor Start: 3 take 40 mg by mouth once daily Omeprazole Active 40 MG PO Daily 90 December 11, 2022 12:00am Oxybutinin XL 5mg (4 sources) Oxybutinin XL 5m g Active oxybutynin chloride 5 mg oral tablet (14 sources) Cholinergic Muscarinic Antagonist Start: 3 take 5 mg by mouth twice daily Oxybutynin Chloride Active 5 MG PO Twice daily December 11, 2022 12:00am Start: 02-26-2022 take 1 tablet by elsy th at bedtime oxybutynin 5 mg Tab 5 mg = 1 tab(s), Oral, Bedtime, # 30 tab(s), Refills(s) 11, Pharmacy: [facility]/pharmacy #[id number], 185, cm, 02/26/22 15:00:00 EDT, Height/Length [...] Refills(s) 0 Start Date: 08/13/23 Status: Ordered sulfamethoxazole 800 mg / trimethoprim 160 mg oral tablet (19 sources) Dihydrofolate Reductase Inhibitor Antibacterial, Sulfonamide Antimicrobial Start: 09-10-2020 End: 08-17-2023 take 1 tablet by mouth once daily sulfamethoxazole-tri methoprim (BACTRIM DS) 800-160 mg per tablet Indications: Liver replaced by transplant (HCC) TAKE 1 TABLET BY MOUTH DAILY ON THURSDAY, THURSDAY, AND THURSDAY 39 tablet 3 08/17/2023 Active Start: 04-13-2018 take 1 tablet by elsy th once Sulfamethoxazole-Trimethoprim Active 1 T AB PO every Thursday, Thursday, and Friday April 13, 2018 12:00am Comment on above: TAKE ONE TABLET BY M OUTH DAILY ON MONDAYS, WEDNESDAYS AND FRIDAYS TAKE 1 TABLET BY ELSY TH DAILY ON THURSDAY, THURSDAY, AND THURSDAY Sulfamethoxazole-T MP DS (4 sources) Sulfamethoxazole -TMP DS Active tacrolimus 1 mg oral capsule (20 sources) Calcineurin Inhibitor Immunosuppressant Start: 10-25-19 take 1 capsule by mouth twice daily tacrolimus IR (PROGRAF) 1 mg capsule Indications: Need for prophylactic immunotherapy , Transplanted liver (HCC) take 2 capsules by mouth twice daily 360 capsule 3 10/25/2023 Active Start: 11-05-2022 End: 10-25-2023 tacrolimus IR (PROGRAF) 1 mg capsule Indications: Need for prophylactic immunotherapy , Transplanted liver (HCC) TAKE 2 CAPSUES BY MOUTH TWICE DAILY 360 capsule 3 11/05/2022 10/25/2023 Discontinued Start: 03-24-2017 End: 04-13-2018 Tacrolimus Discontinued 2017 12:00am April 13, 2018 8:46pm Start: 03-24-2017 End: 11-08-2021 take 1 capsule by mouth twice daily tacrolimus IR (PROGRAF) 1 mg capsule Indications: Need for prophylactic immunotherapy , Transplanted liver (HCC) take 2 capsules by mouth twice daily 360 capsule 3 10/25/2023 Active Comment on above: Take 2 capsules by m outh twice daily. (Z94.4 - liver transplant) TAKE 2 CAPSUES BY MO UTH TWICE DAILY tadalafil 5 mg oral tablet (2 sources) Phosphodiesterase 5 Inhibitor Start: 09-11-19 take 1 tablet by mouth once daily tadalafil 5 mg oral tablet 5 mg = 1 tab(s), Oral, Daily, # 30 tab(s), Refills(s) 11, Pharmacy: [facility]/pharmacy #[id number], 185, cm, 09/10/22 9:37:00 EDT, Height/Length Dosing, 99, kg, 09/10/22 9:37:00 EDT, Weight Dosing Start Date: 09/10/22 Status: Ordered tamsulosin hydrochloride 0.4 mg oral capsule (1 source) alpha-Adrenergic Sebas take 1 capsule by mouth twice daily tamsulosin (Flomax) 0.4 mg 24 hr capsule Take 1 capsule (0.4 mg) by mouth 2 times a day. 0 Active terazosin 5 mg oral capsule (12 sources) alpha-Adrenergic Sebas Start: 06-21-19 take 5 mg by mouth once daily Terazosin Active 5 MG PO Daily December 11, 2022 12:00am Terazosin HCl Ac tive Vitamin D3 (2 sources) Start: 05-27-2023 Vitamin D3 Ref ills(s) 0 Start Date: 05/27/23 Status: Ordered Vitamin D3 25 MCG (1000 UT) (1 source) take 1 capsule by mouth once daily Vitamin D3 25 MCG (1000 UT) 1 capsule Orally Once a day Active Zenpep 10205 UNIT (1 source) Start: 01-01-2023 Zenpep 87472 U NIT 1 WITH EACH MEAL & 1 WITH UP TO 2 SNACKS Orally 5 TIMES A DAY for 30 days Dec, Active Zinc (5 sources) Start: 05-27-2023 take 1 mg by [...] Sig (Original) acetaminophen 325 mg oral tablet (6 sources) Start: 04-15-2018 End: 12-11-2022 take 650 mg by mouth every six hours Acetaminophen Discontinued 650 MG PO Q6H 30 April 15, 2018 12:00am December 11, 2022 11:33am Black Elderberry(Garcia-Willie wer) CAPS (3 sources) Black Elderberry(Garcia-Fl ower) CAPS 2000 mg daily Quantity: 0 Refills: 0 Ordered: 27-Mar-2022 DO Active polyethylene glycol 3350 [id number] mg / potassium chloride 2970 mg / sodium bicarbonate 6740 mg / sodium chloride 5860 mg / sodium sulfate 61347 mg powder for oral solution (4 sources) Osmotic Laxative Start: 11-05-2022 take 236 g by mouth once Golytely 236 GM as directed Orally once for 1 days October, Not-Taking Sulfamethoxazole-TMP DS TABS (3 sources) Sulfamethoxazole -TM P DS TABS TAKE 1 TABLET DAILY ON THURSDAY, THURSDAY, AND THURSDAY. Quantity: 0 Refills: 0 Ordered: 27-Mar-2022 DO Active Trimethoprim-Sulfame thoxazole (6 sources) Start: 03-24-2017 End: 04-13-2018 take 1 tablet by mouth three times weekly Trimethoprim-Sulfam ethoxazole Discontinued 1 TAB PO 3 Times a week March 24, 2017 12:00am April 13, 2018 8:46pm Start: 03-24-2017 End: 04-13-2018 take 1 tablet by mouth three times weekly Trimethoprim-Sulfamethoxazole Discontinu ed 1 TAB PO 3 Times a week March 23, 2017 11:00pm April 13, 2018 7:46pm Problems Active Problems Problem Classification Problem Date Documented Da te Episodic/Chronic Biliary tract disease (9 sources) Leakage of bile; Translations: [Disease of biliary tract, unspecified] Onset: 02-07-2015 06-10-2021 Chronic Cancer of prostate (10 sources) Carcinoma in situ of prostate; Translations: [Carcinoma in situ of prostate] Onset: 12-24-2021 Chronic Cardiac arrest and ventricular fibrillation (6 sources) EKG: asystole; Translations: [Cardiac arrest, cause unspecified] 04-14-2018 Chronic Cardiac dysrhythmias (15 sources) Sick sinus syndrome; Translations: [Sinoatrial node [...] hyperlipidemia] Onset: 01-27-2022 12-21-2018 Chronic Essential hypertension (17 sources) Essential (primary) hypertension; Translations: [Essential hypertension] Onset: 03-26-2017 04-14-2018 Chronic Essential hypertension (2 sources) Essential hypertension Onset: 03-26-2017 Genitourinary symptoms and ill-defined conditions (20 sources) Microscopic hematuria; Translations: [Nocturia] Onset: 01-27-2022 12-21-2018 Episodic Hyperplasia of prostate (17 sources) [...] anticoagulant 11-24-2019 Episodic Other aftercare (1 source) penitentiary (current) use of aspirin; Translations: [[facility] CURRENT USE OF ASPIRIN] Onset: 09-29-2022 Episodic Other aftercare (1 source) Other meterman (current) drug therapy; Translations: [OTH [facility] CURRENT DRUG THERAPY] Onset: 09-29-2022 Episodic Other diseases of bladder and urethra (4 sources) Other specified disorders of bladder; Translations: [OTHER SPECIFIED DISORDERS BLADDER] Onset: 09-26-2022 Chronic Other diseases of kidney and ureters (2 sources) Urinary tract obstruction; Translations: [Other obstructive and reflux uropathy] Onset: 12-24-2021 Episodic Other diseases of veins and lymphatics (6 sources) Peripheral venous insufficiency; Translations: [Venous insufficiency (chronic) (peripheral)] 04-14-2018 Episodic Other endocrine disorders (8 sources) Male hypogonadism 12-21-2018 Chronic Other gastrointestinal disorders (4 sources) Dysphagia; Translations: [Other dysphagia] Episodic Other gastrointestinal disorders (4 sources) Altered bowel function; Translations: [Change in bowel habit] Episodic Other gastrointestinal disorders (1 source) Change in bowel habit Episodic Other gastrointestinal disorders (1 source) Other [...] transplant status / Z94.4(ICD-9) Onset: 03-26-2017 Unclassified (9 sources) SUMMARY Onset: 08-14-2012 Unclassified (6 sources) Finding of sensation of bladder 09-10-2022 Unclassified (1 source) CONTACT W/AND (SUSP) EXPOS COVID-19; Translations: [CONTACT W/AND (SUSP) EXPOS COVID-19] Onset: 01-22-2022 Unclassified (1 source) Encounter for checking and testing of cardiac pacemaker pulse generator [battery]; Translations: [Encounter for checking and testing of cardiac pacemaker pulse generator [battery]] Onset: 08-07-2023 Unclassified (1 source) Diarrhea, unspecified; Translations: [Diarrhea, unspecified] Onset: 12-11-2022 Urinary tract infections (1 source) Urinary tract infection, site not specified; Translations: [UTI SITE NOT SPECIFIED] Onset: 09-29-2022 Episodic Past or Other Problems Problem Classification Problem Date Documented Da te Episodic/Chronic Abdominal hernia (9 sources) Inguinal hernia; Translations: [Unilateral inguinal hernia, without obstruction or gangrene, not specified as recurrent] Onset: 02-02-2008 02-02-2008 Episodic Acute and unspecified renal failure (2 sources) Acute renal failure syndrome; Translations: [Acute kidney failure, unspecified] Onset: 02-07-2015 Resolved: 02-18-2017 02-18-2017 Episodic Bacterial infection; unspecified site (4 sources) Bacteremia; Translations: [Bacteremia] Onset: 01-06-2007 Resolved: 02-18-2017 02-18-2017 Episodic Cancer of liver and intrahepatic bile duct (2 sources) Liver cell carcinoma; Translations: [Liver cell carcinoma] Onset: 12-21-2014 Resolved: 02-18-2017 02-18-2017 Chronic Cancer of liver and intrahepatic bile duct (9 sources) History of hepatocellular carcinoma; Translations: [Personal history of malignant neoplasm of liver] Onset: 02-18-2017 02-18-2017 Episodic Complication of device; implant or graft (9 sources) Biliary stricture; Translations: [Other complications of liver transplant] Onset: 02-07-2015 02-07-2015 Episodic Diseases of white blood cells (2 sources) Leukocytosis; Translations: [Elevated white blood cell count, unspecified] Onset: 08-18-2012 Resolved: 02-18-2017 06-10-2021 Chronic Fluid and electrolyte disorders (2 sources) Hyponatremia; Translations: [Hypo-osmolality and hyponatremia] Onset: 08-18-2012 Resolved: 02-18-2017 06-10-2021 Episodic Hepatitis (14 sources) Viral hepatitis C; Translations: [Unspecified viral hepatitis C without hepatic coma] Onset: 05-03-2013 Resolved: 02-18-2017 12-21-2018 Episodic Neoplasms of unspecified nature or uncertain behavior (9 sources) Neoplasm of pancreas; Translations: [Neoplasm of unspecified behavior of digestive system] Onset: 11-10-2012 11-10-2012 Episodic Other aftercare (1 source) penitentiary (current) use of anticoagulants; Translations: [[facility] CURRNT USE ANTICOAGULANTS] Onset: 01-27-2022 Episodic Other and unspecified benign neoplasm (13 sources) History of polyp of colon; Translations: [Personal history of colonic polyps] Onset: 02-18-2017 02-18-2017 Episodic Other gastrointestinal disorders (2 sources) Ascites; Translations: [Other ascites] Onset: 11-10-2012 Resolved: 02-18-2017 02-18-2017 Episodic Other gastrointestinal disorders (1 source) Dysphagia, unspecified; Translations: [Dysphagia, unspecified] Onset: 12-11-2022 Episodic Other infections; including parasitic (9 sources) History of hepatitis C; Translations: [Personal history of other infectious and parasitic diseases] Onset: 02-18-2017 02-18-2017 Episodic Other liver diseases (2 sources) Cirrhosis of liver; Translations: [Unspecified cirrhosis of liver] Onset: 10-18-2007 Resolved: 02-18-2017 06-10-2021 Chronic Other liver diseases (2 sources) Portal hypertension; Translations: [Portal hypertension] Onset: 11-10-2012 Resolved: 02-18-2017 02-18-2017 Chronic Other liver diseases (2 sources) Hepatic encephalopathy; Translations: [Hepatic encephalopathy] Onset: 08-14-2012 Resolved: 02-18-2017 06-10-2021 Episodic Residual codes; unclassified (11 sources) Prevention status; Translations: [Encounter for other specified prophylactic measures] Onset: 02-07-2015 02-07-2015 Episodic Respiratory failure; insufficiency; arrest (adult) (2 sources) Ventilator finding; Translations: [Dependence on respirator [ventilator] status] Onset: 08-14-2012 Resolved: 02-18-2017 06-10-2021 Chronic Syncope (7 sources) Cardiac syncope; Translations: [Syncope and collapse] Onset: 11-11-2022 04-14-2018 Episodic Unclassified (1 source) Onset: 04-10-2023 04-10-2023 Unclassified (2 sources) Drug therapy finding; Translations: [DVT prophylaxis] Onset: 08-14-2012 Resolved: 02-18-2017 06-10-2021 Results Test Name Value Interpretation Reference Range Facility Tacrolimus [facility] 2023 Tacrolimus (Bld) [Mass/Vol] 5.1 ng/mL Normal 5.0-20.0 [facility] Comment on above: Order Comment: Speci [...] situation. Test performed by chemiluminescent immunoassay using WappZapp Alinity i. Performed By: #### 1 1253-2 #### [facility] CLIA [id number] [address] [id number] [facility] Wilbert 07-27-2023 CNPN Telephone (TXCTMN) SUSAN SHERMAN ([id number]) 1950 M Date Time Provider Department 07/27/23 YULISA LEWIS TXCTMN During your visit today, we recorded the following information about you: Yulisa Lewis RN 07/27/2023 4:02 PM Signed Tacrolimus PA submitted via [employer] website. [place]: [id number] Awaiting coverage determination. Yulisa Lewis RN, BSN, [facility] Liver Business Director Yulisa Lewis RN 07/28/2023 1:58 PM Signed PA denied, pharmacy was billing incorrectly. Medicare paid for OLT and tacrolimus should be billed under part B. Pharmacy billing incorrectly. Yulisa Lewis RN, BSN, [facility] Liver Business Director Allergies As of Date: 07/27/2023 (No Known Allergies) Date Reviewed: 04/16/2020 Reviewed by: Latisha Hernandez (Rn), RN - Fully Assessed Reason for Visit: Insurance Authorization [[id number]] Cmt: Tacrolimus Prescriptions as of 07/28/2023 - [...] encephalopathy (HCC) [K76.82] 08/14/2012 02/18/2017 DVT prophylaxis [NSK9955] 08/14/2012 02/18/2017 Mechanically assisted ventilation [Z99.11] 08/14/2012 [...] Status:Closed by YULISA LEWIS on 07/28/23 Normal [facility] Tacrolimus Bld-[facility] 2023 Tacrolimus (Bld) [Mass/Vol] 6.2 ng/mL Normal 5.0-20.0 [facility] Comment on above: Order Comment: Speci [...] i. Performed By: #### 1 1253-2 #### [facility] CLIA [id number] [address] [place], [place] [id number] [facility] Screenson 05-29-2023 Screens [id number]#1.0 0TIFF Normal [facility] Screens [id number]#1.0 0TIFF Normal [facility] Ambulatory Visit Summaryon 1 07-28-2022 Ambulatory Visit Summary SUSAN SHERMAN :1950 Visit Date:05/27/2023 Ambulatory Visit Instructions Your Diagnosis BPH with urinary obstruction Elevated PSA Feeling of incomplete bladder emptying ED (erectile dysfunction) Other obstructive and reflux uropathy Tests Performed Urnls Dip Stick Auto w/o Microscopy POC 85855 Your Care Team Attending Physician - Sugey [...] Follow Up with Chandler CHAVEZ, Sugey Cummins, URKenny, URO When: In 9 months Comments: w/PSA [...] Urnls Dip Stick Auto w/o Microscopy POC 38901 (05/27/2023) Bilirubin Urine Dipstick - Negative Blood Urine Dipstick - Negative Glucose Urine Dipstick - Negative Ketones Urine Dipstick - Negative Leukocytes Urine Dipstick - Trace Nitrite Urine Dipstick - Negative Protein Urine Dipstick - Negative Specific [place] Urine Dipstick - 1.025 Urine Appearance Urine [...] older than (more content not included)... Normal [facility] Patient Educationon 05-27-20 Patient Education Urology Benign [...] Follow these instructions at home: ? Take rheo-wfj-jusrcvs and prescription medicines only as told by [...] the medicine (more content not included)... Normal [facility] Urology Office/Clinic Noteon 05-27-2023 Urology Office/Clinic Note [...] TRUS prostate Bx: 03/2017, 05/2018 - HGPIN 06/26 cores L base, 10/2019, 01/22/2022 (vol 84-92 [...] the patient (more content not included)... Normal [facility] Comment on above: Result Comment: Elec tronically Signed By: Sugey Arteaga MD\.br\Date and Time Signed: 05/27/23 12:15 EST\.br\Electronically Co-Signed By: Marizol Francis\.br\Date and Time Co-Signed: 05/27/23 10:37 EST Tacrolimus Bld-[facility]ncon 2022 Tacrolimus (Bld) [Mass/Vol] 6.1 ng/mL Normal 5.0-20.0 [facility] Comment on above: Order Comment: Speci [...] situation. Test performed by chemiluminescent immunoassay using DocDocnity i. Performed By: #### 1 1253-2 #### [facility] CLIA [id number] [address] [place] [address] [place] Ambulatory Visit Summaryon 0 02-25-2023 Ambulatory Visit Summary SUSAN SHERMAN :1950 Visit Date:02/25/2023 Ambulatory Visit Instructions Your Diagnosis BPH with urinary obstruction Elevated PSA Feeling of incomplete bladder emptying ED (erectile dysfunction) Tests Performed Urnls Dip Stick Auto w/o Microscopy POC 41943 Your Care Team Attending Physician - Sugey [...] CHAVEZ, Sugey Cummins, TAMEKA, URO When: In 3 months Where: Medications [...] Urnls Dip Stick Auto w/o Microscopy POC 80926 (02/25/2023) Bilirubin Urine Dipstick - Negative Blood Urine Dipstick - Negative Glucose Urine Dipstick - Negative Ketones Urine Dipstick - Trace - 5 mg/dl Leukocytes Urine Dipstick - Negative Nitrite Urine Dipstick - Negative Protein Urine Dipstick - Negative Specific [place] Urine Dipstick - 1.025 Urine Appearance Urine [...] prostate cance (more content not included)... Normal [facility] Patient Educationon 02-26-20 23 Patient Education Oncology Prostate Cancer Screening Prostate [...] Where to find more information ? The [place] [employer]: www.cancer.org ? [place] [employer]: www.auanet.org Contact a health care [...] adds flu (more content not included)... Normal [facility] Screenson 02-25-2023 Screens [id number]#1. 00CD:127 Normal [facility] Screens [id number]#1. 00CD:127 Normal [facility] Urology Office/Clinic Noteon 02-25-2023 Urology Office/Clinic [...] educating the (more content not included)... Normal [facility] Comment on above: Result Comment: Elec tronically Signed By: Sugey Arteaga MD\.br\Date and Time Signed: 02/25/23 10:46 EDT\.br\Electronically Co-Signed By: Marizol Francis\.br\Date and Time Co-Signed: 02/25/23 09:49 EDT\.br\Electronically Co-Signed By: Marizol Francis\.br\Date and Time Co-Signed: 02/25/23 09:50 EDT CNCOon 02-23-2023 CNCO Letter Text Normal [facility] CNPNon 02-23-2023 CNPN Telephone (TXCTMN) SUSAN SHERMAN ([id number]) 1950 M Date Time Provider Department 02/23/23 [...] patent and also faxed to local lab [phone]. Pt verbalized understanding, no further questions at this time. Yulisa Lewis RN, BSN, [facility] Liver Business Director Allergies As of Date: 02/23/2023 (No Known Allergies) Date Reviewed: 04/16/2020 Reviewed by: Latisha Hernandez (Nikki), RN - Fully Assessed Reason for Visit: [...] Status:Closed by YULISA LEWIS on 02/23/23 Normal [facility] Lab Reportson 02-20-2023 Lab Reports [id number] 0CD:127 Normal [facility] Tacrolimus Bld-mCncon 2022 Tacrolimus (Bld) [Mass/Vol] 6.5 ng/mL Normal 5.0-20.0 [facility] Comment on above: Order Comment: Allegra [...] i. Performed By: #### 1 1253-2 #### [facility] CLIA [id number] [address] [place] [address] [place] Tacrolimus Bld-mCncon 2022 Tacrolimus (Bld) [Mass/Vol] 7.0 ng/mL Normal 5.0-20.0 [facility] Comment on above: Order Comment: Speci men [...] situation. Test performed by chemiluminescent immunoassay using [employer] Al[employer] i. Performed By: #### 1 1253-2 #### [facility] CLIA [id number] [address] [place] [address] 12-11-2022 L -- ---- Specimen: [id number] Received: 12/11/22 Status: JENIFER Antonjustin Num: [id number] Spec Type: Surgical Subm Dr: Sheila Magallanes MD Tissues: A Gastric Biopsy (GASTRIC BX) B Colon Biopsy (COLONIC BX) C Colon Biopsy (DESCENDING POLYP) D Colon Biopsy (SIGMOID POLYPS) Procedures: HE/Iris, Gross/Micro L4/4 ---- Age/ Patient Sex Location Account Attending Physician ---- Susan Sherman 72/M [id number] Sheila Magallanes MD ---- SPEC NUM: [id number] RECD: 12/11/22 STATUS: JENIFER NG NUM: [id number] ML: 12/11/[address] [facility] [address]: Sheila Magallanes MD ENTERED: 12/11/[address] [facility] [address]: MINDY TYPE: Surgical DEPT: S ORDERED: [...] pylori, rule out microscopic colitis ---- Specimen: [id number] Received: 12/11/22 Status: JENIFER Ng Num: [id number] Spec Type: Surgical Subm Dr: Sheila Magallanes MD Tissues: A Gastric Biopsy (GASTRIC BX) B Colon Biopsy (COLONIC BX) C Colon Biopsy (DESCENDING POLYP) D Colon Biopsy (SIGMOID POLYPS) Procedures: MATTIris Gross/Micro L4/4 ---- Patient: Susan Sherman [id number] (Continued) ---- Specimen: [id number] Received: 12/11/22 (Continued) Signed (signature on file) Melissa Briones MD 12/12/22 1002 ---- Specimen: [id number] Received: 12/11/22 Status: JENIFER Ng Num: [id number] Spec Type: Surgical Subm Dr: Sheila Magallanes MD Tissues: A Gastric Biopsy (GASTRIC BX) B Colon Biopsy (COLONIC BX) C Colon Biopsy (DESCENDING POLYP) D Colon Biopsy (SIGMOID POLYPS) Procedures: MATTKesha Simmons/Micro L4/4 ---- Patient: Susan Sherman [id number] (Continued) ---- Specimen: [id number] Received: 12/11/22-9548 (Continued) Gross Description A. Received in formalin [...] microscopic examination confirms the diagnosis. CPT Codes 04324 x 4 ---- ---- Specimen: [id number] Received: 12/11/22-1347 Status: JENIFER Ng Num: [id number] Spec Type: Surgical Subm Dr: Sheila Magallanes MD Tissues: A Gastric Biopsy (GASTRIC BX) B Colon Biopsy (COLONIC BX) C Colon Biopsy (DESCENDING POLYP) D Co (more content not included)... Normal [facility] RAD - MRI Reporton 3 RAD - MRI Report [id number]#1.0 0CD:127 Normal [facility] Creatinine (Bld) [Mass/Vol]O rdered By: Sugey Arteaga on 11-11-2022 Creatinine [Mass/Vol] 1.5 mg/dL 0.6-1.3 [facility] Comment on above: ER/ESD physician is notified/shown all ISTAT results.Critical values may be confirmed by laboratory testing ifdeemed necessary by ER attending doctor. MR prostate wo/w conon 11-11 MR prostate wo/w con [facility] [address] [id number] MRI Report Signed Patient: Susan Sherman MR#: [id number] : 1950 Acct:[id number] Age/Sex: 72 / M ADM Date: 11/11/22 Loc: MR Room: Type: [facility] Attending Dr: Sugey Arteaga MD Copies to: [...] malignancy. Impression dictated by: William Platt Jr., D.O.11/11/2022 12:29 PM Dictation Location: [facility]--15 Transcribed By: [facility] 11/11/22 1229 Dictated By: William Platt Jr, DO 11/11/22 1215 Signed By: 11/11/22 1229 Normal [facility] C reactive protein [Mass/vol ume] in Serum or PlasmaOrdered By: Sheila Magallanes on 11-06-2022 CRP [Mass/Vol] < 0.5 mg/dL 0.0-0.5 [facility] Calprotectin [Mass/mass] in StoolOrdered By: Sheila Magallanes on 11-06-2022 Calprotectin (Stl) [Mass/Mass] 31 ug/g 0-120 [facility] Comment on above: Concentration Interp retation Follow-Up< 5 - 50 ug/g Normal None>50 -120 ug/g Borderline Re-evaluate in 4-6 weeks >120 ug/g Abnormal Repeat as clinically indicatedPerformed at: - Labco[address] [id number] Director: Slim Lewis MD, Phone: [phone] Clostridioides difficile tox in B tcdB gene [Presence] in Stool by LUZ MARIA with probe deteOrdered By: Sheila Magallanes on 11-06-2022 C. difficile toxin B tcdB gene LUZ MARIA+probe Ql (Stl) Negative Negative [facility] Comment on above: Testing performed by RT-PCR Elastase.pancreatic [Mass/ma ss] in StoolOrdered By: Sheila Magallanes on 11-06-2022 Elastase.pancreatic (Stl) [Mass/Mass] 132 >200 [facility] Comment on above: Result Units: ug [address] st./g Severe Pancreatic Insufficiency: <100 Moderate Pancreatic Insufficiency: 100 - 200 Normal: >200Performed at: [facility] Lab[address] [id number] Director: Slmi Lewis MD, Phone: [phone] Erythrocyte sedimentation ra te by Photometric methodOrdered By: Sheila Magallanes on 11-06-2022 ESR Photometric method (Bld) [Velocity] < 1 mm/hr 0- [facility] IgA [Mass/volume] in Serum o r PlasmaOrdered By: Sheila Magallanes on 11-06-2022 IgA [Mass/Vol] 23 mg/dL 61-437 [facility] Comment on above: Result confirmed on concentration.Performed at: - [facility] [id number] Director: Jorge Lockwood PhD, Phone: [phone] No Panel InformationOrdered By: Sheila Magallanes on 11-06-2022 Endomysial IgA Antibody Negative Negative [facility] Ova and Parasite Result [address] [facility] Ova or parasites identificat ionOrdered By: Sheila Magallanes on 11-06-2022 Ova and parasites identified LM Nom (Unsp spec) [facility] Serum gliadin peptide IgA an tibody assay (units/volume)Ordered By: Sheila Magallanes on 11-06-2022 Gliadin peptide IgA Qn (S) 5 units 0-19 [facility] Comment on above: Negative 0 - 19 Weak Positive 20 - 30 Moderate to Strong Positive >30 Serum gliadin peptide IgG an tibody assay (units/volume)Ordered By: Sheila Magallanes on 11-06-2022 Gliadin peptide IgG Qn (S) 4 units 0-19 [facility] Comment on above: Negative 0 - 19 Weak Positive 20 - 30 Moderate to Strong Positive >30 Serum tissue transglutaminas e (tTG) IgA antibody assay (units/volume)Ordered By: [facility] Sona on 11-06-2022 tTG IgA Qn (S) <2 U/mL 0-3 [facility] Comment on above: Negative 0 - 3 Weak Positive 4 - 10 Positive >10 Tissue Transglutaminase (tTG) has been identified as the endomysial antigen. Studies have demonstr- ated that endomysial IgA antibodies have over 99% specificity for gluten sensitive enteropathy. Serum tissue transglutaminas e (tTG) IgG antibody assay (units/volume)Ordered By: yung Calderon on 11-06-2022 tTG IgG Qn (S) <2 U/mL 0-5 [facility] Comment on above: Negative 0 - 5 Weak Positive 6 - 9 Positive >9 Stool bacteria identificatio n by cultureOrdered By: yung Magallanes on 11-06-2022 Bacteria identified Cx Nom (Stl) [facility] Stool sodium measurement (mo les/volume)Ordered By: yung [facility] on 11-06-2022 Sodium (Stl) [Moles/Vol] See comment [facility] Comment on above: See report. Scanned copy available in EMR. Thyrotropin [Units/volume] i n Serum or PlasmaOrdered By: Sheila Magallanes on 11-06-2022 TSH Qn 3.51 m[IU]/L 0.45-5.33 [facility] HEP C RNA BY PCR QUANT (NON- GRAPHICAL) Won 10-21-2022 HCV Genotype RTNI Normal [facility] Comment on above: Result Comment: Not indicated Performed By: #### E MERLE DE OLIVEIRA #### [facility] [address] [address] [address] Yogi Naidu HCV log10 UPTCAL Normal [facility] Comment on above: Result Comment: Unab le to calculate result since non-numeric result obtained for component test. Performed By: #### E MERLE DE OLIVEIRA #### [facility] [address] [place] [address] Dr. Yogi Naidu Hepatitis C Quantitation Not detected Normal [facility] Comment on above: Performed By: #### E MERLE DE OLIVEIRA #### [facility] [address] [place] [address] Dr. Yogi Naidu Test Information: Comment Normal [facility] Comment on above: Result Comment: The quantitative range of this assay is 15 IU/mL to 100 million IU/mL. Performed By: #### MERLE CULVER #### [facility] [address] [place] [address] Dr. Yogi Naidu BOX TEST SENT OUTon 10-21-19 SENT TO REF LAB 10/20/2022 Normal [facility] Comment on above: Performed By: #### B OX #### [facility] [address] [place] [address] Dr. Yogi Naidu CBC AUTO DIFFon 10-20-2022 BASO # 0.1 103/ul Normal 0.0-0.1 [facility] Comment on above: Performed By: #### C BC #### [facility] [address] [place] [address] Dr. Yogi Naidu Basophils/100 WBC (Bld) 1.1 % Normal 0.2-2.0 [facility] Comment on above: Performed By: #### C BC #### [facility] [address] [place] [address] Dr. Yogi Naidu EO # 0.2 103/ul Normal 0.0-0.7 [facility] Comment on above: Performed By: #### C BC #### [facility] [address] [place] [address] Dr. Yogi Naidu Eosinophils/100 WBC (Bld) 3.6 % Normal 0.9-7.0 [facility] Comment on above: Performed By: #### C BC #### [facility] [address] [place] [address] Dr. Yogi Naidu Erythrocyte distribution width (RBC) [Ratio] 14.2 % Normal 11.0-15.0 [facility] Comment on above: Performed By: #### C BC #### [facility] [address] [place] [address] Dr. Yogi Naidu Hematocrit (Bld) [Volume fraction] 45.4 % Normal 42.0-54.0 [facility] Comment on above: Performed By: #### C BC #### [facility] [address] [place] [address] Dr. Yogi Naidu Hemoglobin (Bld) [Mass/Vol] 15.0 g/dL Normal 14.0-18.0 [facility] Comment on above: Performed By: #### C BC #### [facility] [address] [place] [address] Dr. Yogi Naidu IG # 0.02 10e3/ul Normal 0.00-0.03 [facility] Comment on above: Performed By: #### C BC #### [facility] [address] [place] [address] Dr. Yogi Naidu IG % 0.4 % Normal 0.0-0.5 [facility] Comment on above: Performed By: #### C BC #### [facility] [address] [place] [address] Dr. Yogi Naidu LYMPH # 0.7 103/ul Critically low 1.2-3.8 [facility] Comment on above: Performed By: #### C BC #### [facility] [address] [place] [address] Dr. Yogi Naidu Lymphocytes/100 WBC (Bld) 13.3 % Critically low 20.5-60.0 [facility] Comment on above: Performed By: #### C BC #### [facility] [address] [place] [address] Dr. Yogi Naidu MANUAL DIFF REQ NO Normal [facility] Comment on above: Performed By: #### C BC #### [facility] [address] [place] [address] Dr. Yogi Naidu MCH (RBC) [Entitic mass] 29.7 pg Normal 25.9-34.0 [facility] Comment on above: Performed By: #### C BC #### [facility] [address] [address] [address] Yogi Naidu MCHC (RBC) [Mass/Vol] 33.0 g/dL Normal 29.9-35.2 [facility] Comment on above: Performed By: #### C BC #### [facility] [address] [address] [address] Yogi Naidu MCV (RBC) [Entitic vol] 89.9 fL Normal 80.0-94.0 [facility] Comment on above: Performed By: #### C BC #### [facility] [address] [place] [address] Dr. Yogi Naidu MONO # 0.3 103/ul Normal 0.3-0.8 [facility] Comment on above: Performed By: #### C BC #### [facility] [address] [place] [address] Dr. Yogi Naidu Monocytes/100 WBC (Bld) 5.8 % Normal 1.7-12.0 [facility] Comment on above: Performed By: #### C BC #### [facility] [address] [place] [address] Dr. Yogi Naidu NEUT # 4.1 103/ul Normal 1.4-6.5 [facility] Comment on above: Performed By: #### C BC #### [facility] [address] [place] [address] Dr. Yogi Naidu Neutrophils/100 WBC (Bld) 75.8 % Critically high 43.0-75.0 [facility] Comment on above: Performed By: #### C BC #### [facility] [address] [place] [address] Dr. Yogi Naidu Platelet mean volume (Bld) [Entitic vol] 9.3 fL Critically low 9.5-13.5 [facility] Comment on above: Performed By: #### C BC #### [facility] [address] [place] [address] Dr. Yogi Naidu PLT 174 103/ul Normal 150-450 [facility] Comment on above: Performed By: #### C BC #### [facility] [address] [place] [address] Dr. Yogi Naidu RBC 5.05 106/ul Normal 4.70-6.10 [facility] Comment on above: Performed By: #### C BC #### [facility] [address] [place] [address] Dr. Yogi Naidu WBC 5.4 103/ul Normal 4.0-11.0 [facility] Comment on above: Performed By: #### C BC #### [facility] [address] [place] [address] Dr. Yogi Naidu GGTon 10-20-2022 Gamma glutamyl transferase [Catalytic activity/Vol] 28 U/L Normal 15-85 [facility] Comment on above: Performed By: #### C MP, MG, PHOS, GGT #### [facility] [address] [place] [address] Dr. Yogi Naidu LIPID PROFILEon 10-20-2022 CHOL-HDL RATIO NORM SEE BELOW Normal [facility] Comment on above: Result Comment: 3.3 - 4.4 LOW RISK 4.4 - 7.1 AVERAGE RISK 7.1 - 11.0 MODERATE RISK >11.0 HIGH RISK Performed By: #### C MP, MG, PHOS, GGT #### [facility] [address] [place] [address] Dr. Yogi Naidu Cholesterol [Mass/Vol] 195 mg/dL Normal <=200 [facility] Comment on above: Performed By: #### C MP, MG, PHOS, GGT #### [facility] [address] [place] [address] Dr. Yogi Naidu Cholesterol in HDL [Mass/Vol] 50 mg/dL Normal 40-60 [facility] Comment on above: Performed By: #### C MP, MG, PHOS, GGT #### [facility] [address] [place] [address] Dr. Yogi Naidu Cholesterol in LDL [Mass/Vol] 131.6 mg/dL Normal [facility] Comment on above: Performed By: #### C MP, MG, PHOS, GGT #### [facility] [address] [place] [address] Dr. Yogi Naidu Cholesterol.total/Choles terol in HDL [Mass ratio] 3.9 {ratio} Normal [facility] Comment on above: Performed By: #### C MP, MG, PHOS, GGT #### [facility] [address] [place] [address] Dr. Yogi Naidu HDL NORMAL > or = 60 mg/dl - LO W CARDIOVASCULAR RISK <40 mg/dl - HIGH CARDIOVASCULAR RISK Normal [facility] Comment on above: Performed By: #### C MP, MG, PHOS, GGT #### [facility] [address] [place] [address] Dr. Yogi Naidu LDL CALC NORMAL SEE BELOW Normal [facility] Comment on above: Result Comment: <100 mg/dl OPTIMAL 100 - 129 mg/dl NEAR OR ABOVE OPTIMAL 130 - 159 mg/dl BORDERLINE HIGH 160 - 189 mg/dl HIGH >190 mg/dl VERY HIGH Performed By: #### C MP, MG, PHOS, GGT #### [facility] [address] [place] [address] Dr. Yogi Naidu Triglyceride [Mass/Vol] 67 mg/dL Normal <=150 [facility] Comment on above: Performed By: #### C MP, MG, PHOS, GGT #### [facility] [address] [place] [address] Dr. Yogi Naidu VLDL CALC 13.4 mg/dL Normal [facility] Comment on above: Performed By: #### C MP, MG, PHOS, GGT #### [facility] [address] [place] [address] Dr. Yogi Naidu MAGNESIUMon 10-20-2022 Magnesium [Mass/Vol] 1.8 mg/dL Normal 1.8-2.4 [facility] Comment on above: Performed By: #### C MP, MG, PHOS, GGT #### [facility] [address] [place] [address] Dr. Yogi Naidu PHOSPHORUSon 10-20-2022 Phosphate [Mass/Vol] 3.2 mg/dL Normal 2.6-4.7 [facility] Comment on above: Performed By: #### C MP, MG, PHOS, GGT #### [facility] [address] [place] [address] Dr. Yogi Naidu PROF 14(COMP METB)on 023 Albumin [Mass/Vol] 3.8 g/dL Normal 3.4-5.0 [facility] Comment on above: Performed By: #### C MP, MG, PHOS, GGT #### [facility] [address] [place] [address] Dr. Yogi Naidu Albumin/Globulin [Mass ratio] 1.5 {ratio} Normal [facility] Comment on above: Performed By: #### C MP, MG, PHOS, GGT #### [facility] [address] [place] [address] Dr. Yogi Naidu ALP [Catalytic activity/Vol] 64 U/L Normal 46-116 [facility] Comment on above: Performed By: #### C MP, MG, PHOS, GGT #### [facility] [address] [place] [address] Dr. Yogi Naidu ALT [Catalytic activity/Vol] 21 U/L Normal 16-63 [facility] Comment on above: Performed By: #### C MP, MG, PHOS, GGT #### [facility] [address] [place] [address] Dr. Yogi Naidu Anion gap [Moles/Vol] 12.6 mmol/L Normal [facility] Comment on above: Performed By: #### C MP, MG, PHOS, GGT #### [facility] [address] [place] [address] Dr. Yogi Naidu AST [Catalytic activity/Vol] 14 U/L Critically low 15-37 [facility] Comment on above: Performed By: #### C MP, MG, PHOS, GGT #### [facility] [address] [place] [address] Dr. Yogi Naidu Bilirubin [Mass/Vol] 0.6 mg/dL Normal 0.2-1.0 [facility] Comment on above: Performed By: #### C MP, MG, PHOS, GGT #### [facility] [address] [address] [address] Yogi Naidu Calcium [Mass/Vol] 9.1 mg/dL Normal 8.5-10.1 [facility] Comment on above: Performed By: #### C MP, MG, PHOS, GGT #### [facility] [address] [address] [address] Yogi Naidu Chloride [Moles/Vol] 110 mmol/L Critically high 98-107 [facility] Comment on above: Performed By: #### C MP, MG, PHOS, GGT #### [facility] [address] [address] [address] Yogi Naidu CO2 [Moles/Vol] 27.6 mmol/L Normal 21.0-32.0 [facility] Comment on above: Performed By: #### C MP, MG, PHOS, GGT #### [facility] [address] [place] [address] Dr. Yogi Naidu Creatinine [Mass/Vol] 1.06 mg/dL Normal 0.70-1.30 [facility] Comment on above: Performed By: #### C MP, MG, PHOS, GGT #### [facility] [address] [place] [address] Dr. Yogi Naidu EGFR-AF SCOTTISH >60 Normal >=60 [facility] Comment on above: Performed By: #### C MP, MG, PHOS, GGT #### [facility] [address] [place] [address] Dr. Yogi Naidu EGFR-NON AF SCOTTISH >60 Normal >=60 [facility] Comment on above: Performed By: #### C MP, MG, PHOS, GGT #### [facility] [address] [address] [address] Yogi Naidu Globulin (S) [Mass/Vol] 2.6 g/dL Normal [facility] Comment on above: Performed By: #### C MP, MG, PHOS, GGT #### [facility] [address] [place] [address] Dr. Yogi Naidu Glucose [Mass/Vol] 106 mg/dL Normal 74-106 [facility] Comment on above: Performed By: #### C MP, MG, PHOS, GGT #### [facility] [address] [place] [address] Dr. Yogi Naidu Potassium [Moles/Vol] 4.2 mmol/L Normal 3.5-5.1 [facility] Comment on above: Performed By: #### C MP, MG, PHOS, GGT #### [facility] [address] [place] [address] Dr. Yogi Naidu Protein [Mass/Vol] 6.4 g/dL Normal 6.4-8.2 [facility] Comment on above: Performed By: #### C MP, MG, PHOS, GGT #### [facility] [address] [place] [address] Dr. Yogi Naidu Sodium [Moles/Vol] 146 mmol/L Critically high 136-145 [facility] Comment on above: Performed By: #### C MP, MG, PHOS, GGT #### [facility] [address] [place] [address] Dr. Yogi Naidu Urea nitrogen [Mass/Vol] 20.0 mg/dL Critically high 7.0-18 .0 [facility] Comment on above: Performed By: #### C MP, MG, PHOS, GGT #### [facility] [address] [place] [address] Dr. Yogi Naidu Urea nitrogen/Creatinine [Mass ratio] 18.9 mg/mg Normal [facility] Comment on above: Performed By: #### C MP, MG, PHOS, GGT #### [facility] [address] [place] [address] Dr. Yogi Naidu Physician Orderon 10-10-2022 Physician Order [id number]#1.0 0CD:127 Normal [facility] Lab Reportson 10-09-2022 Lab Reports [id number]#1.0 0CD:127 Normal [facility] Prostate specific Ag [Mass/v olume] in Serum or PlasmaOrdered By: Sugey Arteaga on 10-09-2022 Prostate specific Ag [Mass/Vol] 48.840 ng/mL 0.000-4.000 [facility] Screenson 10-09-2022 Screens [id number] CD:127 Normal [facility] Screens [id number] CD:127 Normal [facility] Ambulatory Visit Summaryon 0 10-08-2022 Ambulatory Visit Summary SUSAN SHERMAN :1950 Visit Date:10/08/2022 Ambulatory Visit Instructions Your Diagnosis BPH with urinary obstruction Elevated PSA Feeling of incomplete bladder emptying ED (erectile dysfunction) Tests Performed Urnls Dip Stick Auto w/o Microscopy POC 90893 Your Care Team Attending Physician - Sugey [...] MD, URL, URO When: Where: [address] [place] [address] [phone] Medications What How Much When Instructions Unchanged [...] Urnls Dip Stick Auto w/o Microscopy POC 14926 (10/08/2022) Bilirubin Urine Dipstick - Negative Blood Urine Dipstick - Negative Glucose Urine Dipstick - Trace 100 mg/dl Ketones Urine Dipstick - Negative Leukocytes Urine Dipstick - 1+ Small Nitrite Urine Dipstick - Negative Protein Urine Dipstick - Negative Specific [place] Urine Dipstick - 1.025 Urine Appearance Urine [...] including vitamins, herbs, eye drops, creams, and fvka-zfz-nwbslus medicines. ? Any problems you or family [...] Erectile dysfunction (more content not included)... Normal [facility] Patient Educationon 10-09-19 Patient Education Urology Transurethral Resection of the [...] including vitamins, herbs, eye drops, creams, and qmtc-ate-jvszbyt medicines. ? Any problems you or family [...] tells you to take them. ? Taking rjgt-ezg-yaegcvb medicines, vitamins, herbs, and supplements. Surgery safety [...] health care (more content not included)... Normal [facility] Urology Office/Clinic Noteon 10-08-2022 Urology Office/Clinic Note [...] increase. [place] [facility] [place] 10:00am [...] Information Chandler CHAVEZ, Sugey Cummins, URL, URO [address], [address] [place] [address] [phone] Additional Instructions: Pt will f/u after MRI Pacemaker check Patient Education Transurethral Resection of the Prostate IAnny , personally scribed for Dr. Arteaga on [...] biopsy of (more content not included)... Normal [facility] Comment on above: Result Comment: Elec tronically [...] S F Nitrofurantoin <=16 S F Normal [facility] Comment on above: Performed By: #### C MP, MG, PHOS, GGT #### [facility] [address] [place] [address] Dr. Yogi Naidu ER URINE PROFILEon 3 Bilirubin Ql (U) Negative Normal NEGATIVE [facility] Comment on above: Performed By: #### DASH CULVERRO #### [facility] [address] [place] [address] Dr. Yogi Naidu Clarity (U) SL CLOUDY Abnormal CLEAR [facility] Comment on above: Performed By: #### DASH CULVERRO #### [facility] [address] [place] [address] Dr. Yogi Naidu Color (U) LT. YELLOW Normal YELLOW [facility] Comment on above: Performed By: #### DASH CULVERRO #### [facility] [address] [place] [address] Dr. Yogi SANCHEZGenevieve A micrscopic examination will be performed if indicated. Normal [facility] Comment on above: Performed By: #### DASH CULVERRO #### [facility] [address] [place] [address] Dr. Yogi Naidu Glucose Ql (U) Negative Normal NEGATIVE [facility] Comment on above: Performed By: #### DASH CULVERRO #### [facility] [address] [place] [address] Dr. Yogi Naidu Hemoglobin Ql (U) Negative Normal NEGATIVE [facility] Comment on above: Performed By: #### Vesta DE OLIVEIRA UMICRO #### [facility] [address] [place] [address] Dr. Yogi Naidu Ketones Ql (U) 15 mg/dl Abnormal NEGATIVE [facility] Comment on above: Performed By: #### Vesta DE OLIVEIRA UMICRO #### [facility] [address] [place] [address] Dr. Yogi Naidu LEUKOCYTES MODERATE Abnormal NEGATIVE [facility] Comment on above: Performed By: #### Vesta DE OLIVEIRA UMICRO #### [facility] [address] [place] [address] Dr. Yogi Naidu Nitrite Ql (U) Negative Normal NEGATIVE [facility] Comment on above: Performed By: #### Vesta DE OLIVEIRA UMICRO #### [facility] [address] [place] [address] Dr. Yogi Naidu pH (U) 5.5 [pH] Normal 5-9 [facility] Comment on above: Performed By: #### Vesta DE OLIVEIRA UMICRO #### [facility] [address] [place] [address] Dr. Yogi Naidu SPEC GRAVITY 1.030 Abnormal 1.005-<=1.02 5 [facility] Comment on above: Performed By: #### Vesta DE OLIVEIRA UMICRO #### [facility] [address] [place] [address] Dr. Yogi Naidu UA PROTEIN TRACE Normal NEGATIVE/ TRACE [facility] Comment on above: Performed By: #### Vesta DE OLIVEIRA UMICRO #### [facility] [address] [place] [address] Dr. Yogi Naidu UR MICRO IND INDICATED Normal [facility] Comment on above: Performed By: #### Vesta DE OLIVEIRA UMICRO #### [facility] [address] [place] [address] Dr. Yogi Naidu Urobilinogen Qn (U) 0.2 {Kt'U}/dL Normal 0.2 - 1. 0 [facility] Comment on above: Performed By: #### Vesta DE OLIVEIRA UMICRO #### [facility] [address] [place] [address] Dr. Yogi Naidu URINE MICROSCOPIC ONLYon BACTERIA SMALL Abnormal NONE SEEN [facility] Comment on above: Performed By: #### Vesta DE OLIVEIRA UMICRO #### [facility] [address] [place] [address] Dr. Yogi Naidu Bacteria identified Cx Nom (U) CX ALREADY ORDERED Normal [facility] Comment on above: Performed By: #### Vesta DE OLIVEIRA UMICRO #### [facility] [address] [place] [address] Dr. Yogi Naidu CAST NONE SEEN Normal NONE SEEN [facility] Comment on above: Performed By: #### Vesta DE OLIVEIRA UMICRO #### [facility] [address] [place] [address] Dr. Yogi Naidu Crystals LM Nom (Urine sed) NONE SEEN Normal NONE SEEN [facility] Comment on above: Performed By: #### Vesta DE OLIVEIRA UMICRO #### [facility] [address] [place] [address] Dr. Yogi Naidu Epithelial cells LM Ql (Urine sed) NONE SEEN Normal NONE SEEN /RARE [facility] Comment on above: Performed By: #### Vesta DE OLIVEIRA UMICRO #### [facility] [address] [place] [address] Dr. Yogi Naidu MUCOUS NONE SEEN Normal NONE SEEN [facility] Comment on above: Performed By: #### Vesta DE OLIVEIRA UMICRO #### [facility] [address] [place] [address] Dr. Yogi Naidu RBC 0-2 Normal 0-2 [facility] Comment on above: Performed By: #### Vesta DE OLIVEIRA UMICRO #### [facility] [address] [place] [address] Dr. Yogi Naidu WBC 50-75 Abnormal NONE SEEN [facility] Comment on above: Performed By: #### Vesta DE OLIVEIRA UMICRO #### [facility] [address] [place] [address] Dr. Yogi Naidu Coding Summary.on 09-23-2022 Coding Summary. CD:[id number] Ww +PGhlYWQ+XH2RIGLbX72hj RZenQ9pI6EAUYfJWwzoKLP HASdSFpMktnQjTQ8idYMnY XJu IC8+CY0hUXRkQenjiMJgt1 L4sLV6M43joy9eCYpihWS5 MVJlOdUbxwnpt4juwEb7DL cuNmluOyBt GCDqbS56TDG8zX07Xy80uY RyoTOsc9jyeAf9LoInFCPc BVL2cLysORfca3WvTDNvQ6 0nwRTdy3U9 YPWwoMsasCCiAlKimXU9kI 2nWOeikddyw2tznyxqAfy7 or00vSWyo5Z9pJC7M5Wwzj W7DAAcfWKi MpcyeAIWmD5wjudjq1kfbo gaZrTcEEUzIIt5QEp3RUXf lAydWyHsUI14NSF1BTCwbw PoY9PlWWZf kDyuYqJ4c1T8Wh1OE6BKHr crW0QARLJPXQhvjRT+PC90 hd65S8EvOpbbShy8DUUgEW K6jHA7dM9a PZClWOhlj3E1rBC4P4Nrym Emws1bi9hxMBZoMZgzC41w mGJkl3G1RXSrcSW5TJZgkG kwVsDglB94 Oyc+IJBohHroz1JzKfkue5 sxb6rbzQl1UcciZKQgqdFn aMjrLDC5b3NuLh8yNGCywT N2pEI1yT4t DlMnHnN0GHhcH410MzOmpT ZrRzrqR99iG6VltYY+PHRy Xhk5AKHmsDmuXO4bV4PlEA RpbmctbGVm cGflRG7aWGVuldtzPLMnyM 2yJEUqP0d6DxOvWmR7ANpc K8FoSQCfsabfJo35lH8pDc UdTnF8ALwk G5LmiuO7SYCtnMYhMTvgQC P4Q78gf2Q5BSBoEPRqMEX7 oET8lG0smUwkyzsodNOykH sgdmVydGlj YGwsWNmdK188NUIsyKvhEp NvZGluZyBEYXRlOiAgMDQv MTEvMjAyMzwvdGQ+PHRkIH D2zSykCLCi oOOyQUzsXk5vqYcrdXdrXM 2vBIZgljmzHTFmsW7cFSNf tUIriWnyPH9oOZFpxfduw5 07WsRbTNM9 ORHasOZhV5AqiZ9yGtUdMV BwNVLdV8QysXIoDZflQ595 PKxtRuY9OZZdiaWsM9DsSJ FsaWduOiB0 x5Y4Nn4Uh0JiqfxiE9MaaB RhUjGyJtteGZs1C7TzLzzm dHI+YL13DBUxBI74DPn0ZE Z8vUcwVUhs SOKtR4XsmF1eEgFsHGIlZR RkOyc+PHRhYmxlIHdpZHRo MKipLDHaTtWrcTvpHA0kOr 9yZGVyLWNv vTcxqAQtKmQdx3ylHROkFC myNL0mvMjwA0ZefIT5KKIu l0n6Xm57E40kP4NykJP+PG JodZT8vQR1 hR9oJbPsHbF8RZenY199Uh UbtFVxTnlzs8orx0pitYb2 JhI8QLQfyoZjhOhfWSK3u7 FmEk40I82c IHdpZHRoPSIxNSUiIHZhbG btct7giG3kLf0+PGNvbCB3 lDL2zW7aNyAfXzY1DArhR8 49InRvcCIv Xrcjy7ohf1vfbRk8DuKhLQ SumwTxjBgvTXS9w0HeWg43 B0LsoSqay8MwTpj6tf93eZ Lpl1O5nBF9 H5XcNUZtlnmuwUVntPhtNX 2rLYSrpgwlTVSdfI8sYPLg A6l5HmJmLbU5ZWgxA9Mtxr J2ZBWqoAKs GRXftVTHoF8kbjvbj7jxon yeJcAoWZJlHOh3DIh7SGWa cQiuMzLaTWM7XeZ6SQY3kS BkjV9irXru pcwlfI3eEzv+LJB0iDJoyQ VWHY2hJiqdoSE+PHRkIHN0 fGklULyqXJRvmY7tFJUoR5 s6NiJwCaK2 HSecT2TspmZ5MHNinYRjYW ZixJWZfU7quuclo6ydupjy YpUtPTGjTNd2PYf7FIOkqM duOiBsZWZ0 FjU1YUY5gZCcqN0ogClfou pyfR3nAtd+QmlydGggRGF0 PVj4D9SpIgw9KXAaqJruMU 0ncGFkZGlu Gt7mjXykcIojKB2wZGCrmx wxa087FxArj6wmJRGrpTOu FQxjYBP0X40de3J8IQFkKU WmUEL5gGE6 eW8pqBgplqpovJMlfXcejz CxeIaeNBioLJawN971FTRc nAgxPxWbELf8U9GrAnw2EO SooPbhJM0u hZGrNIieZm4dkXdgdTbdRQ 7iKEHmzesvp505MjRse8nw SJUslWXaYThmONI5B91mp0 M1OTXxIGFw QRB0sPG0lM5ntBndnzvmvJ VmdDsgdmVydGljYWwtYWxp C943CFQlwJmiDiNvtVb7U0 PqTae6QJXq qHkrFL1lfNGtBYvaJy3woZ cdlXkqIO8qJZYhwbter941 BjFqq1ztZEFrrAYsDBddDO Z8A05sl2D8 TUNzPUKvHKP9wVX4cX3pbP lnbjogbGVmdDsgdmVydGlj ANzbZDhpD176HPKkqJanEq BhdGllbnQg TLqxLVd5R0JwBoxeqBA+PC 38ORLhGH72eKMqrVHws3jr gPq6TgRyNYBtYZM8gNjfUQ ubh5HzQIMy M99dfCKdo7R6WBStrVsyfB AeQnQcaQU2jK0nDRlaavqi m5eotkcxIsqlc5rrfg64vC 15V01aAVow ZHRoPSIzMCUiIHZhbGlnbj 7fuI4yCq2+PRTofQW9qNP7 lI8dYCIiTxH0XXjtU684Jd RvcCIvPjxj u3hjo8zbeXu8WtL2CWNhpt QjtWjpTDR3f9NcJj71P37q IHdpZHRoPSIyMCUiIHZhbG nctt5nyT1u Ii8+JIGyjWW3tKX4tM5nAv IcAnU2TKzhV840YkRyrSEb MsfpC88iD6AadJY+PHRyPj i0CTSuiEnr IU9lnUFaNXlbUe0gOAP9Qb JkGdXnOVzaZ1QyNXGqotpd yjiueVP3DZCuNWZdnB57Zp 9udDogMTBw mORKaP0okbtip0fzvaxcJg TxNXHsCIe7WQl2ACGqkLec PaXpFMG0YoI5RIV5hKVyeJ 1hbGlnbjog bE5aG7OoWVDvnxqtQb49zQ 6aIvYmRkE4YSicHoi+QVJQ CWFXGBXNNJNARK95AR87zV Wem4N6dMF5 I5KwFBDiwzdgpnlpqRS9XD HkDFUehX47yIBbBGzyCb3s a7L0c328VTTtELOdqF53Jp 9udDogMTBw cQLSbT4byirdt4pfvzkwJg ClPKCgEFt0RUt5LTDbuBse EwDvMEG9QkQ2KGX1hUSfzA 1hbGlnbjog bA5vTro+MHbjQxiuTQv4Sa wvdGQ+KVJyGEZ3sAtvFBsg NIDtiA8eNHJwT0w7WyLgUz J8MUmbA1Sm HFKaodubSb60fN2yYoUfIo R3PIujH3PpjdL6QROpzILg KYahEEY1U41bc2K0TWRwBJ XkSLC0bZR7 rV1reVlziwxsaUTeaAkdqj MduFecVOcnGYyjV838VQSt oCenYsrlGWqxNEWeCG96NI 36yORze1D9 dHJ1F9KqODEzvaanuvvgtK Q7VCUhBGDjmK31xJAmZRii Tl1bf8W4v780SIUlWAJubC 52It3miJxg ANLucRJXjP5ijzmut6abgx flNcEaHUYqKIp8HGb7IHIv xBqgXhPeLJZ4GrZ3BWU9gK YqjQ5kwYge hdtqxB3bQsd+TWFsZTwvdG Q+ZGOcWWA5cRdgCMnxXPMb cQ7aNLJuB0u6PuGrEnT0DP wlG9BlTNDq katcAo05hB9cHxNvPhZ8PS tgW3VrqlL0OYVslZMnUFen EDQ7S06rk2W4VWRaQRJaOQ C7tVG6mP7y bGlnbjogbGVmdDsgdmVydG jsPTaoZHeyF799XROvxEpn Ir41bOMceIrbmnQ1B7AzQv wvdHI+PC90 TSXzVV37tRCqkRUzk2vpzU e7FrVtKZZkSSJ6vPlnSYuu j6OjJYIzZ34cnJZxp6V4TZ NvbGxhcHNl YbRrdZC6rY2iJHgvlhkhc9 flzjqyYncbv0jvwt04qB09 I43vLPlqAZEfDDOaGTBjVY IaxItbqc5t nU9aUn0+TNIhuHS0fGY4cH 7jTvHhMuQ8ZDjxQ472OnMr zFRwQxnni1idy8vyhOw9Dg IwJSIgdmFs iWynOKX2a0TaDo54C70qZN dpZHRoPSIyMCUiIHZhbGln hf1giX1mLy4+OE4bn6kmar 36jM39nYR+ VIFeQPQ6fCcbAXwgJWLtzX 9iQOttBgK7VEXjBfDcfF63 wURsHPdkMc3ciFhgsWnjQA 4wNTBpbjtm g219BjJhk2zlTOMckJTeUQ reJON5S37wg4F1PLQeGBJl FCR9dMG8kF5pfIjcttwfdD VmdDsgdmVy pDpbZJuaEYvzB019EXEmdI qyUgSycFWhM3fhptJIBB7p OjwvdGQ+WBUeUCV9wPueLK dsXFXsnH8u PKIwP2k9FqHyJkO4JVqaV2 QyqcM4EDLwjDFnZYIehLWC zH1zdrinc4oreebrHpOaSD BwQSh7RXb9 IKDsdYdxQgJvYFJ1QaS9RO O5tQHhgQ3ezEgxmfvfuO4p Oyc+RklOOjwvdGQ+PHRkIH F0nLjbVGfl VMWmhF4aMMSpB5k4KiNaSy K1NHsqF6HnhyR2JRYzlUVu JPEjgNWExH2ccoisj7mlam ogIzAwMDAw UTs2VGl5YDZaxDjfYrUkHI J0FuD2DWY1aDFhtE0acXqx fcnvwU5zPgt+TVJOOjwvdG Q+PHRkIHN0 dEhvSQjdTPPagC2sDQFnJ0 w8MuHyQlI1TCcwD4NgqiR8 SVPsmUOnYSVpjWVFsX4kyh xwc1nproaw BfVhYWXlONn0KOm0DGGwqK clLiStPLF6FqD7DKV5iZMc qY4hfKuopnglnN2pLks+UG X7YWS1OD83 KR24Z4VrEennpPAikLU+PH RhYmxlIHdpZHRoPScxMDAl DrKoxDlzYM1dHp5tAAFgSB NvbGxhcHNl StAoz0iv (more content not included)... Normal [facility] Consent for Procedure/Surger yon 09-22-2022 Consent for Procedure/Surgery [id number]#1. 00CD:127 Normal [facility] Consent for Treatmenton 09-13 Consent for Treatment [id number]#1.0 0CD:127 Normal [facility] Inpatient Patient Summaryon 09-22-2022 Inpatient Patient Summary [address] [address] Clinical Summary Person Information Name: SUSAN SHERMAN Age: 72 Years : 1950 Sex: Male PCP: ELVIRA SCHULTZ DO Marital Status: Race: White Ethnicity: Non- or Language: Danish Visit Id: Visit Reason: BPH WITH LUTS Speciality: Acuity: Enc Type: Outpatient Med Service: Surgery Arrival: 09/22/2022 07:09:42 Discharge: Dispo Type: Address: [address] [place] [address] [phone] Provider Notes: Diagnosis: BPH with urinary obstruction; [...] Address: When: Sugey Chandler [address], [place] [address] [phone] Business (1) [address], [facility] [address], [facility] [address] [place] [id number] [phone] Business (1) Comments: Office to schedule follow up in 2-4 wks to review MRI prostate and BPH procedures Type Location Start Finish [facility] URO Office Visit [facility] [place] 10/08/2022 8:00 AM 10/08/2022 8:15 AM Confirmed Patient Education Information: EU - Cystoscopy Discharge Instructions (CUSTOM) [facility] IntraOperative Documentson 0 09-22-2022 IntraOperative Documents [id number]#1. 00CD:127 [facility] Main OR Intraoperative Recor don 09-22-2022 Main OR Intraoperative Record IntraOp Document Type FTURO Summary Primary Physician: Sugey Arteaga MD Finalized Date/Time: 09/22/22 08:15:09 Pt. Name: SUSAN SHERMAN/Sex: 1950 Male Med Rec #: [id number] Physician: Sugey Arteaga MD Financial #: [id number] Pt. Type: O Room/Bed: / Admit/Disch: 09/22/22 07:09:42 - Institution: Case Times FTURO Entry 1 Patient Times In Room 09/22/22 08:06:00 Out Room 09/22/22 08:15:00 Procedure Times Start 09/22/22 08:09:00 Stop 09/22/22 08:11:00 Anesthesia Times Last Modified By: Carline Reina RN 09/22/22 08:15:05 Case Attendance FTURO Entry 1 Entry 2 Entry 3 Case Attendee Chandler CHAVEZ, Sugey Yanez [employer], Carline Oshea RN Role Performed Surgeon - Primary Scrub - Primary Hoop Coiling Machine Operator - Primary Time In 09/22/22 08:06:00 09/22/22 [...] By: Carline Reina RN 09/22/22 08:15 Normal [facility] Main OR Preoperative Recordo n 09-22-2022 Main OR Preoperative Record Holding Area Document Type FTURO Summary Primary Physician: Sugey Arteaga MD Finalized Date/Time: 09/22/22 07:34:55 Pt. Name: WHIT, SUSAN L /Sex: 1950 Male Med Rec #: [id number] Physician: Sugey Arteaga MD Financial #: [id number] Pt. Type: O Room/Bed: / Admit/Disch: 09/22/22 [...] No Pain Comment: na Skin Integrity Intact, [place], Warm, & Dry Vitals - EU Blood Pressure 139/83 Pulse 70 bpm Respirations 18 br/min SPO2 98 % RN Reviewed Yes Last Modified By: Carline Reina RN 09/22/22 07:34:53 General Comments: temp:36.4 Finalized By: Carline Reina RN Document Signatures Signed By: Ceci Dash LPN 09/22/22 07:21 Carline Reina RN 09/22/22 07:34 Normal [facility] Operative Reporton Operative Report Patient: SUSAN SHERMAN Age: 72 years Sex: Male : 1950 Associated Diagnoses: None Author: Sugey Arteaga MD Procedure Operative Information Details: Date/ Time: 09/22/2022 08:16:00. Pre-Op Dx: BPH with urinary obstruction ([id number] N40.1, Discharge, Medical). Post-Op Dx: Same. Anesthesia [...] if taking tadalafil at home . Normal [facility] Comment on above: Result Comment: Elec tronically Signed By: Sugey Arteaga MD\.br\Date and Time Signed: 09/22/22 08:20 EDT Outpatient Surgery Discharge Instructionon 09-22-2022 Outpatient Surgery Discharge Instruction [place] [id number] Patient Discharge Instructions PERSON INFORMATION Name: SUSAN [...] Follow up: With: Address: When: Sugey Arteaga [address] [place] [address] [phone] Business (1) [address], [facility] [address] [place] [address] [phone] Business (1) Comments: Office to schedule follow up in 2-4 wks to review MRI prostate and BPH procedures Type Location Start [facility] URO Office Visit [facility] [place] 10/08/2022 8:00 AM 10/08/2022 8:15 AM Confirmed [...] you have a fever over 100 degrees. WHIT Lopez DAVID L, have received the attached [...] you. Thank you for choosing [facility] Normal [facility] Consenton 09-17-2022 Consent [id number]#1. 00CD:127 Normal [facility] Registrationon 09-17-2022 Registration [id number]#1. 00CD:127 Normal [facility] Screenson 09-11-2022 Screens [id number]#1. 00CD:127 Normal [facility] Screens [id number]#1. 00CD:127 Normal [facility] Patient Educationon 09-11-19 23 Patient Education Oncology [...] including vitamins, herbs, eye drops, creams, and tyfv-ltb-tepbvea medicines. This also includes: ? Medicines to [...] 07/04/2005 Document Revised: 05/14/2018 Document Reviewed: 03/08/2018 [employer] Patient Education ? 2020 [employer] Urology Benign Prostatic Hyperplasia Benign prostatic hyperplasia (BPH) is an enlarged prostate glan (more content not included)... Normal [facility] Physician Orderon 09-10-2022 Physician Order [id number]#1.0 0CD:127 [facility] Pre-Certification Formon Pre-Certification Form [id number]#1. 00CD:127 [facility] Urology Office/Clinic Noteon 09-10-2022 Urology Office/Clinic Note [...] time Follow-up With When Contact Information Chandler CHAVEZ, Sugey Cummins, URL, URO In 6 months Additional Instructions: w/PSA Patient Education Prostate-Specific Antigen Test Benign Prostatic Hyperplasia Camille Lopezan, personally scribed for Dr. Arteaga on 09/10/2022 10:17:45. . Documentation recorded by the scribe, Camille Santo, accurately reflects the services(s) I performed and decisions made by me. Authenticated by Dr. Arteaga on 09/10/2022 17:54:12. Problem List/Past Medical History Ongoing Anticoagulant long-term use BPH with urinary obstruction ED (erectile dysfunction) Elevated PSA Feeling of incomplete bladder emptying Former (more content not included)... Normal [facility] Comment on above: Result Comment: Elec tronically Signed By: Sugey Arteaga MD\.br\Date and Time Signed: 09/10/22 17:54 EDT\.br\Electronically Co-Signed By: Camille Santo\.br\Date and Time Co-Signed: 09/10/22 10:18 EDT BOX TEST SENT OUTon 08-20-19 23 SENT TO REF LAB 08/19/2022 Normal [facility] Comment on above: Performed By: #### B OX #### [facility] [address] [place] [address] Dr. Yogi Naidu CBC AUTO DIFFon 08-19-2022 BASO # 0.1 103/ul Normal 0.0-0.1 [facility] Comment on above: Performed By: #### C MP, MG, PHOS, GGT #### [facility] [address] [place] [address] [address] Yogi Naidu Basophils/100 WBC (Bld) 0.9 % Normal 0.2-2.0 [facility] Comment on above: Performed By: #### C MP, MG, PHOS, GGT #### [facility] [address] [place] [address] Dr. Yogi Naidu EO # 0.2 103/ul Normal 0.0-0.7 [facility] Comment on above: Performed By: #### C MP, MG, PHOS, GGT #### [facility] [address] [place] [address] Dr. Yogi Naidu Eosinophils/100 WBC (Bld) 2.8 % Normal 0.9-7.0 [facility] Comment on above: Performed By: #### C MP, MG, PHOS, GGT #### [facility] [address] [place] [address] Dr. Yogi Naidu Erythrocyte distribution width (RBC) [Ratio] 13.9 % Normal 11.0-15.0 [facility] Comment on above: Performed By: #### C MP, MG, PHOS, GGT #### [facility] [address] [place] [address] Dr. Yogi Naidu Hematocrit (Bld) [Volume fraction] 46.0 % Normal 42.0-54.0 [facility] Comment on above: Performed By: #### C MP, MG, PHOS, GGT #### [facility] [address] [place] [address] Dr. Yogi Naidu Hemoglobin (Bld) [Mass/Vol] 15.6 g/dL Normal 14.0-18.0 [facility] Comment on above: Performed By: #### C MP, MG, PHOS, GGT #### [facility] [address] [place] [address] Dr. Yogi Naidu IG # 0.02 10e3/ul Normal 0.00-0.03 [facility] Comment on above: Performed By: #### C MP, MG, PHOS, GGT #### [facility] [address] [place] [address] Dr. Yogi Naidu IG % 0.3 % Normal 0.0-0.5 [facility] Comment on above: Performed By: #### C MP, MG, PHOS, GGT #### [facility] [address] [place] [address] Dr. Yogi Naidu LYMPH # 0.9 103/ul Critically low 1.2-3.8 [facility] Comment on above: Performed By: #### C MP, MG, PHOS, GGT #### [facility] [address] [place] [address] Dr. Yogi Naidu Lymphocytes/100 WBC (Bld) 12.8 % Critically low 20.5-60.0 [facility] Comment on above: Performed By: #### C MP, MG, PHOS, GGT #### [facility] [address] [place] [address] Dr. Yoig Naidu MANUAL DIFF REQ NO Normal [facility] Comment on above: Performed By: #### C MP, MG, PHOS, GGT #### [facility] [address] [place] [address] Dr. Yogi Naidu MCH (RBC) [Entitic mass] 29.7 pg Normal 25.9-34.0 [facility] Comment on above: Performed By: #### C MP, MG, PHOS, GGT #### [facility] [address] [place] [address] Dr. Yogi Naidu MCHC (RBC) [Mass/Vol] 33.9 g/dL Normal 29.9-35.2 [facility] Comment on above: Performed By: #### C MP, MG, PHOS, GGT #### [facility] [address] [place] [address] Dr. Yogi Naidu MCV (RBC) [Entitic vol] 87.6 fL Normal 80.0-94.0 [facility] Comment on above: Performed By: #### C MP, MG, PHOS, GGT #### [facility] [address] [place] [address] Dr. Yogi Naidu MONO # 0.4 103/ul Normal 0.3-0.8 [facility] Comment on above: Performed By: #### C MP, MG, PHOS, GGT #### [facility] [address] [place] [address] Dr. Yogi Naidu Monocytes/100 WBC (Bld) 6.0 % Normal 1.7-12.0 [facility] Comment on above: Performed By: #### C MP, MG, PHOS, GGT #### [facility] [address] [place] [address] Dr. Yogi Naidu NEUT # 5.2 103/ul Normal 1.4-6.5 [facility] Comment on above: Performed By: #### C MP, MG, PHOS, GGT #### [facility] [address] [place] [address] Dr. Yogi Naidu Neutrophils/100 WBC (Bld) 77.2 % Critically high 43.0-75.0 [facility] Comment on above: Performed By: #### C MP, MG, PHOS, GGT #### [facility] [address] [place] [address] Dr. Yogi Naidu Platelet mean volume (Bld) [Entitic vol] 9.3 fL Critically low 9.5-13.5 [facility] Comment on above: Performed By: #### C MP, MG, PHOS, GGT #### [facility] [address] [place] [address] Dr. Yogi Naidu PLT 215 103/ul Normal 150-450 [facility] Comment on above: Performed By: #### C MP, MG, PHOS, GGT #### [facility] [address] [place] [address] Dr. Yogi Naidu RBC 5.25 106/ul Normal 4.70-6.10 [facility] Comment on above: Performed By: #### C MP, MG, PHOS, GGT #### [facility] [address] [place] [address] Dr. Yogi Naidu WBC 6.8 103/ul Normal 4.0-11.0 [facility] Comment on above: Performed By: #### C MP, MG, PHOS, GGT #### [facility] [address] [place] [address] Dr. Yogi Naidu GGTon 08-19-2022 Gamma glutamyl transferase [Catalytic activity/Vol] 32 U/L Normal 15-85 [facility] Comment on above: Performed By: #### C MP, MG, PHOS, GGT #### [facility] [address] [place] [address] Dr. Yogi Naidu Lab Reportson 08-19-2022 Lab Reports [id number] Normal [facility] MAGNESIUMon 08-19-2022 Magnesium [Mass/Vol] 1.5 mg/dL Critically low 1.8-2.4 [facility] Comment on above: Performed By: #### C MP, MG, PHOS, GGT #### [facility] [address] [place] [address] Dr. Yogi Naidu PHOSPHORUSon 08-19-2022 Phosphate [Mass/Vol] 3.0 mg/dL Normal 2.6-4.7 [facility] Comment on above: Performed By: #### C MP, MG, PHOS, GGT #### [facility] [address] [place] [address] Dr. Yogi Naidu PROF 14(COMP METB)on 023 Albumin [Mass/Vol] 4.2 g/dL Normal 3.4-5.0 [facility] Comment on above: Performed By: #### C MP, MG, PHOS, GGT #### [facility] [address] [place] [address] Dr. Yogi Naidu Albumin/Globulin [Mass ratio] 1.7 {ratio} Normal [facility] Comment on above: Performed By: #### C MP, MG, PHOS, GGT #### [facility] [address] [place] [address] Dr. Yogi Naidu ALP [Catalytic activity/Vol] 68 U/L Normal 46-116 [facility] Comment on above: Performed By: #### C MP, MG, PHOS, GGT #### [facility] [address] [place] [address] Dr. Yogi Naidu ALT [Catalytic activity/Vol] 16 U/L Normal 16-63 [facility] Comment on above: Performed By: #### C MP, MG, PHOS, GGT #### [facility] [address] [place] [address] Dr. Yogi Naidu Anion gap [Moles/Vol] 12.4 mmol/L Normal [facility] Comment on above: Performed By: #### C MP, MG, PHOS, GGT #### [facility] [address] [place] [address] Dr. Yogi Naidu AST [Catalytic activity/Vol] 16 U/L Normal 15-37 [facility] Comment on above: Performed By: #### C MP, MG, PHOS, GGT #### [facility] [address] [place] [address] Dr. Yogi Naidu Bilirubin [Mass/Vol] 0.7 mg/dL Normal 0.2-1.0 [facility] Comment on above: Performed By: #### C MP, MG, PHOS, GGT #### [facility] [address] [place] [address] Dr. Yogi Naidu Calcium [Mass/Vol] 9.2 mg/dL Normal 8.5-10.1 [facility] Comment on above: Performed By: #### C MP, MG, PHOS, GGT #### [facility] [address] [place] [address] Dr. Yogi Naidu Chloride [Moles/Vol] 110 mmol/L Critically high 98-107 [facility] Comment on above: Performed By: #### C MP, MG, PHOS, GGT #### [facility] [address] [place] [address] Dr. Yogi Naidu CO2 [Moles/Vol] 26.6 mmol/L Normal 21.0-32.0 [facility] Comment on above: Performed By: #### C MP, MG, PHOS, GGT #### [facility] [address] [place] [address] Dr. Yogi Naidu Creatinine [Mass/Vol] 1.08 mg/dL Normal 0.70-1.30 [facility] Comment on above: Performed By: #### C MP, MG, PHOS, GGT #### [facility] [address] [place] [address] Dr. Yogi Naidu EGFR-AF SCOTTISH >60 Normal >=60 [facility] Comment on above: Performed By: #### C MP, MG, PHOS, GGT #### [facility] [address] [place] [address] Dr. Yogi Naidu EGFR-NON AF SCOTTISH >60 Normal >=60 [facility] Comment on above: Performed By: #### C MP, MG, PHOS, GGT #### [facility] [address] [place] [address] Dr. Yogi Naidu Globulin (S) [Mass/Vol] 2.4 g/dL Normal [facility] Comment on above: Performed By: #### C MP, MG, PHOS, GGT #### [facility] [address] [place] [address] Dr. Yogi Naidu Glucose [Mass/Vol] 100 mg/dL Normal 74-106 [facility] Comment on above: Performed By: #### C MP, MG, PHOS, GGT #### [facility] [address] [place] [address] Dr. Yogi Naidu Potassium [Moles/Vol] 4.5 mmol/L Normal 3.5-5.1 [facility] Comment on above: Performed By: #### C MP, MG, PHOS, GGT #### [facility] [address] [place] [address] Dr. Yogi Naidu Protein [Mass/Vol] 6.6 g/dL Normal 6.4-8.2 [facility] Comment on above: Performed By: #### C MP, MG, PHOS, GGT #### [facility] [address] [place] [address] Dr. Yogi Naidu Sodium [Moles/Vol] 145 mmol/L Normal 136-145 [facility] Comment on above: Performed By: #### C MP, MG, PHOS, GGT #### [facility] [address] [place] [address] Dr. Yogi Naidu Urea nitrogen [Mass/Vol] 22.0 mg/dL Critically high 7.0-18 .0 [facility] Comment on above: Performed By: #### C MP, MG, PHOS, GGT #### [facility] [address] [place] [address] Dr. Yogi Naidu Urea nitrogen/Creatinine [Mass ratio] 20.3 mg/mg Normal [facility] Comment on above: Performed By: #### C MP, MG, PHOS, GGT #### [facility] [address] [place] [address] Dr. Yogi Naidu Provider Letteron 08-07-2022 Provider Letter August 07, 2022 SUSAN SHERMAN [address] [place] [address] SUSAN SHERMAN 1950 Dear Mr. Sherman, We [...] rescheduled at your earliest convenience. Please call [phone] Thank you for your prompt attention to this matter. Sincerely, [facility] [address], [place] [address] x 5 [facility] HEP C RNA BY PCR QUANT (NON- GRAPHICAL) Won 07-23-2022 HCV Genotype RTNI Normal [facility] Comment on above: Result Comment: Not indicated Performed By: #### MERLE CULVER #### [facility] [address] [place] [address] Dr. Yogi Naidu HCV log10 UPTCAL Normal [facility] Comment on above: Result Comment: Unab le to calculate result since non-numeric result obtained for component test. Performed By: #### MERLE CULVER #### [facility] [address] [place] [address] Dr. Yogi Naidu Hepatitis C Quantitation Not detected Normal [facility] Comment on above: Performed By: #### MERLE CULVER #### [facility] [address] [place] [address] Dr. Yogi Naidu Test Information: Comment Normal [facility] Comment on above: Result Comment: The quantitative range of this assay is 15 IU/mL to 100 million IU/mL. Performed By: #### MERLE CULVER #### [facility] [address] [place] [address] Dr. Yogi Naidu BOX TEST SENT OUTon 07-22-19 SENT TO REF LAB 07/22/2022 [facility] Comment on above: Performed By: #### B OX #### [facility] [address] [address] [address] Yogi Naidu CBC AUTO DIFFon 07-22-2022 BASO # 0.1 103/ul Normal 0.0-0.1 [facility] Comment on above: Performed By: #### C BC #### [facility] [address] [place] [address] Dr. Yogi Naidu Basophils/100 WBC (Bld) 1.0 % Normal 0.2-2.0 [facility] Comment on above: Performed By: #### C BC #### [facility] [address] [place] [address] Dr. Yogi Naidu EO # 0.2 103/ul Normal 0.0-0.7 [facility] Comment on above: Performed By: #### C BC #### [facility] [address] [place] [address] Dr. Yogi Naidu Eosinophils/100 WBC (Bld) 2.5 % Normal 0.9-7.0 [facility] Comment on above: Performed By: #### C BC #### [facility] [address] [place] [address] Dr. Yogi Naidu Erythrocyte distribution width (RBC) [Ratio] 14.1 % Normal 11.0-15.0 [facility] Comment on above: Performed By: #### C BC #### [facility] [address] [place] [address] Dr. Yogi Naidu Hematocrit (Bld) [Volume fraction] 50.1 % Normal 42.0-54.0 [facility] Comment on above: Performed By: #### C BC #### [facility] [address] [place] [address] Dr. Yogi Naidu Hemoglobin (Bld) [Mass/Vol] 16.2 g/dL Normal 14.0-18.0 [facility] Comment on above: Performed By: #### C BC #### [facility] [address] [place] [address] Dr. Yogi Naidu IG # 0.03 10e3/ul Normal 0.00-0.03 [facility] Comment on above: Performed By: #### C BC #### [facility] [address] [place] [address] Dr. Yogi Naidu IG % 0.4 % Normal 0.0-0.5 [facility] Comment on above: Performed By: #### C BC #### [facility] [address] [place] [address] Dr. Yogi Naidu LYMPH # 0.7 103/ul Critically low 1.2-3.8 [facility] Comment on above: Performed By: #### C BC #### [facility] [address] [place] [address] Dr. Yogi Naidu Lymphocytes/100 WBC (Bld) 11.0 % Critically low 20.5-60.0 [facility] Comment on above: Performed By: #### C BC #### [facility] [address] [place] [address] Dr. Yogi Naidu MANUAL DIFF REQ NO Normal [facility] Comment on above: Performed By: #### C BC #### [facility] [address] [place] [address] Dr. Yogi Naidu MCH (RBC) [Entitic mass] 29.9 pg Normal 25.9-34.0 [facility] Comment on above: Performed By: #### C BC #### [facility] [address] [place] [address] Dr. Yogi Naidu MCHC (RBC) [Mass/Vol] 32.3 g/dL Normal 29.9-35.2 [facility] Comment on above: Performed By: #### C BC #### [facility] [address] [place] [address] Dr. Yogi Naidu MCV (RBC) [Entitic vol] 92.6 fL Normal 80.0-94.0 [facility] Comment on above: Performed By: #### C BC #### [facility] [address] [place] [address] Dr. Yogi Naidu MONO # 0.4 103/ul Normal 0.3-0.8 [facility] Comment on above: Performed By: #### C BC #### [facility] [address] [place] [address] Dr. Yogi Naidu Monocytes/100 WBC (Bld) 5.7 % Normal 1.7-12.0 [facility] Comment on above: Performed By: #### C BC #### [facility] [address] [address] [address] Yogi Naidu NEUT # 5.3 103/ul Normal 1.4-6.5 [facility] Comment on above: Performed By: #### C BC #### [facility] [address] [place] [address] Dr. Yogi Naidu Neutrophils/100 WBC (Bld) 79.4 % Critically high 43.0-75.0 [facility] Comment on above: Performed By: #### C BC #### [facility] [address] [place] [address] Dr. Yogi Naidu Platelet mean volume (Bld) [Entitic vol] 9.7 fL Normal 9.5-13.5 [facility] Comment on above: Performed By: #### C BC #### [facility] [address] [place] [address] Dr. Yogi Naidu PLT 206 103/ul Normal 150-450 [facility] Comment on above: Performed By: #### C BC #### [facility] [address] [place] [address] Dr. Yogi Naidu RBC 5.41 106/ul Normal 4.70-6.10 [facility] Comment on above: Performed By: #### C BC #### [facility] [address] [place] [address] Dr. Yogi Naidu WBC 6.7 103/ul Normal 4.0-11.0 [facility] Comment on above: Performed By: #### C BC #### [facility] [address] [place] [address] Dr. Yogi Naidu GGTon 07-22-2022 Gamma glutamyl transferase [Catalytic activity/Vol] 30 U/L Normal 15-85 [facility] Comment on above: Performed By: #### B OX #### [facility] [address] [place] [address] Dr. Yogi Naidu LIPID PROFILEon 07-22-2022 CHOL-HDL RATIO NORM SEE BELOW Normal [facility] Comment on above: Result Comment: 3.3 - 4.4 LOW RISK 4.4 - 7.1 AVERAGE RISK 7.1 - 11.0 MODERATE RISK >11.0 HIGH RISK Performed By: #### C MP, MG, PHOS, GGT #### [facility] [address] [place] [address] Dr. Yogi Naidu Cholesterol [Mass/Vol] 188 mg/dL Normal <=200 [facility] Comment on above: Performed By: #### C MP, MG, PHOS, GGT #### [facility] [address] [place] [address] Dr. Yogi Naidu Cholesterol in HDL [Mass/Vol] 48 mg/dL Normal 40-60 [facility] Comment on above: Performed By: #### C MP, MG, PHOS, GGT #### [facility] [address] [place] [address] Dr. Yogi Naidu Cholesterol in LDL [Mass/Vol] 123.8 mg/dL Normal [facility] Comment on above: Performed By: #### C MP, MG, PHOS, GGT #### [facility] [address] [place] [address] Dr. Yogi Naidu Cholesterol.total/Choles terol in HDL [Mass ratio] 3.9 {ratio} Normal [facility] Comment on above: Performed By: #### C MP, MG, PHOS, GGT #### [facility] [address] [place] [address] Dr. Yogi Naidu HDL NORMAL > or = 60 mg/dl - LO W CARDIOVASCULAR RISK <40 mg/dl - HIGH CARDIOVASCULAR RISK Normal [facility] Comment on above: Performed By: #### C MP, MG, PHOS, GGT #### [facility] [address] [place] [address] Dr. Yogi Naidu LDL CALC NORMAL SEE BELOW Normal [facility] Comment on above: Result Comment: <100 mg/dl OPTIMAL 100 - 129 mg/dl NEAR OR ABOVE OPTIMAL 130 - 159 mg/dl BORDERLINE HIGH 160 - 189 mg/dl HIGH >190 mg/dl VERY HIGH Performed By: #### C MP, MG, PHOS, GGT #### [facility] [address] [place] [address] Dr. Yogi Naidu Triglyceride [Mass/Vol] 81 mg/dL Normal <=150 [facility] Comment on above: Performed By: #### C MP, MG, PHOS, GGT #### [facility] [address] [place] [address] Dr. Yogi Naidu VLDL CALC 16.2 mg/dL Normal [facility] Comment on above: Performed By: #### C MP, MG, PHOS, GGT #### [facility] [address] [place] [address] Dr. Yogi Naidu MAGNESIUMon 07-22-2022 Magnesium [Mass/Vol] 1.7 mg/dL Critically low 1.8-2.4 [facility] Comment on above: Performed By: #### B OX #### [facility] [address] [place] [address] Dr. Yogi Naidu PHOSPHORUSon 07-22-2022 Phosphate [Mass/Vol] 2.8 mg/dL Normal 2.6-4.7 [facility] Comment on above: Performed By: #### C MP, MG, PHOS, GGT #### [facility] [address] [place] [address] Dr. Yogi Naidu PROF 14(COMP METB)on 023 Albumin [Mass/Vol] 4.2 g/dL Normal 3.4-5.0 [facility] Comment on above: Performed By: #### C MP, MG, PHOS, GGT #### [facility] [address] [place] [address] Dr. Yogi Naidu Albumin/Globulin [Mass ratio] 1.7 {ratio} Normal [facility] Comment on above: Performed By: #### C MP, MG, PHOS, GGT #### [facility] [address] [place] [address] Dr. Yogi Naidu ALP [Catalytic activity/Vol] 72 U/L Normal 46-116 [facility] Comment on above: Performed By: #### C MP, MG, PHOS, GGT #### [facility] [address] [address] [address] Yogi Naidu ALT [Catalytic activity/Vol] 14 U/L Critically low 16-63 [facility] Comment on above: Performed By: #### C MP, MG, PHOS, GGT #### [facility] [address] [place] [address] Dr. Yogi Naidu Anion gap [Moles/Vol] 11.1 mmol/L Normal [facility] Comment on above: Performed By: #### C MP, MG, PHOS, GGT #### [facility] [address] [place] [address] Dr. Yogi Naidu AST [Catalytic activity/Vol] 11 U/L Critically low 15-37 [facility] Comment on above: Performed By: #### C MP, MG, PHOS, GGT #### [facility] [address] [place] [address] Dr. Yogi Naidu Bilirubin [Mass/Vol] 0.7 mg/dL Normal 0.2-1.0 [facility] Comment on above: Performed By: #### C MP, MG, PHOS, GGT #### [facility] [address] [place] [address] Dr. Yogi Naidu Calcium [Mass/Vol] 9.3 mg/dL Normal 8.5-10.1 [facility] Comment on above: Performed By: #### C MP, MG, PHOS, GGT #### [facility] [address] [place] [address] Dr. Yogi Naidu Chloride [Moles/Vol] 106 mmol/L Normal 98-107 [facility] Comment on above: Performed By: #### C MP, MG, PHOS, GGT #### [facility] [address] [place] [address] Dr. Yogi Naidu CO2 [Moles/Vol] 29.2 mmol/L Normal 21.0-32.0 [facility] Comment on above: Performed By: #### C MP, MG, PHOS, GGT #### [facility] [address] [place] [address] Dr. Yogi Naidu Creatinine [Mass/Vol] 1.08 mg/dL Normal 0.70-1.30 [facility] Comment on above: Performed By: #### C MP, MG, PHOS, GGT #### [facility] [address] [place] [address] Dr. Yogi Naidu EGFR-AF SCOTTISH >60 Normal >=60 [facility] Comment on above: Performed By: #### C MP, MG, PHOS, GGT #### [facility] [address] [place] [address] Dr. Yogi Naidu EGFR-NON AF SCOTTISH >60 Normal >=60 [facility] Comment on above: Performed By: #### C MP, MG, PHOS, GGT #### [facility] [address] [place] [address] Dr. Yogi Naidu Globulin (S) [Mass/Vol] 2.5 g/dL Normal [facility] Comment on above: Performed By: #### C MP, MG, PHOS, GGT #### [facility] [address] [place] [address] Dr. Yogi Naidu Glucose [Mass/Vol] 90 mg/dL Normal 74-106 [facility] Comment on above: Performed By: #### C MP, MG, PHOS, GGT #### [facility] [address] [place] [address] Dr. Yogi Naidu Potassium [Moles/Vol] 4.3 mmol/L Normal 3.5-5.1 [facility] Comment on above: Performed By: #### C MP, MG, PHOS, GGT #### [facility] [address] [place] [address] Dr. Yogi Naidu Protein [Mass/Vol] 6.7 g/dL Normal 6.4-8.2 [facility] Comment on above: Performed By: #### C MP, MG, PHOS, GGT #### [facility] [address] [place] [address] Dr. Yogi Naidu Sodium [Moles/Vol] 142 mmol/L Normal 136-145 [facility] Comment on above: Performed By: #### C MP, MG, PHOS, GGT #### [facility] [address] [place] [address] Dr. Yogi Naidu Urea nitrogen [Mass/Vol] 23.0 mg/dL Critically high 7.0-18 .0 [facility] Comment on above: Performed By: #### C MP, MG, PHOS, GGT #### [facility] [address] [place] [address] Dr. Yogi Naidu Urea nitrogen/Creatinine [Mass ratio] 21.3 mg/mg Normal [facility] Comment on above: Performed By: #### C MP, MG, PHOS, GGT #### [facility] [address] [place] [address] Dr. Yogi Naidu BOX TEST SENT OUTon 06-16-19 23 SENT TO REF LAB 06/16/2022 Normal [facility] Comment on above: Performed By: #### E MERLE DE OLIVEIRA #### [facility] [address] [place] [address] Dr. Yogi Naidu CBC AUTO DIFFon 06-16-2022 BASO # 0.1 103/ul Normal 0.0-0.1 [facility] Comment on above: Performed By: #### C BC #### [facility] [address] [place] [address] Dr. Yogi Naidu Basophils/100 WBC (Bld) 1.0 % Normal 0.2-2.0 [facility] Comment on above: Performed By: #### C BC #### [facility] [address] [place] [address] Dr. Yogi Naidu EO # 0.2 103/ul Normal 0.0-0.7 [facility] Comment on above: Performed By: #### C BC #### [facility] [address] [place] [address] Dr. Yogi Naidu Eosinophils/100 WBC (Bld) 2.5 % Normal 0.9-7.0 [facility] Comment on above: Performed By: #### C BC #### [facility] [address] [place] [address] Dr. Yogi Naidu Erythrocyte distribution width (RBC) [Ratio] 14.3 % Normal 11.0-15.0 [facility] Comment on above: Performed By: #### C BC #### [facility] [address] [place] [address] Dr. Yogi Naidu Hematocrit (Bld) [Volume fraction] 44.7 % Normal 42.0-54.0 [facility] Comment on above: Performed By: #### C BC #### [facility] [address] [place] [address] Dr. Yogi Naidu Hemoglobin (Bld) [Mass/Vol] 14.8 g/dL Normal 14.0-18.0 [facility] Comment on above: Performed By: #### C BC #### [facility] [address] [place] [address] Dr. Yogi Naidu IG # 0.01 10e3/ul Normal 0.00-0.03 [facility] Comment on above: Performed By: #### C BC #### [facility] [address] [place] [address] Dr. Yogi Naidu IG % 0.2 % Normal 0.0-0.5 [facility] Comment on above: Performed By: #### C BC #### [facility] [address] [place] [address] Dr. Yogi Naidu LYMPH # 0.7 103/ul Critically low 1.2-3.8 [facility] Comment on above: Performed By: #### C BC #### [facility] [address] [place] [address] Dr. Yogi Naidu Lymphocytes/100 WBC (Bld) 12.4 % Critically low 20.5-60.0 [facility] Comment on above: Performed By: #### C BC #### [facility] [address] [place] [address] Dr. Yogi Naidu MANUAL DIFF REQ NO Normal [facility] Comment on above: Performed By: #### C BC #### [facility] [address] [place] [address] Dr. Yogi Naidu MCH (RBC) [Entitic mass] 29.5 pg Normal 25.9-34.0 [facility] Comment on above: Performed By: #### C BC #### [facility] [address] [place] [address] Dr. Yogi Naidu MCHC (RBC) [Mass/Vol] 33.1 g/dL Normal 29.9-35.2 [facility] Comment on above: Performed By: #### C BC #### [facility] [address] [place] [address] Dr. Yogi Naidu MCV (RBC) [Entitic vol] 89.2 fL Normal 80.0-94.0 [facility] Comment on above: Performed By: #### C BC #### [facility] [address] [place] [address] Dr. Yogi Naidu MONO # 0.4 103/ul Normal 0.3-0.8 [facility] Comment on above: Performed By: #### C BC #### [facility] [address] [place] [address] Dr. Yogi Naidu Monocytes/100 WBC (Bld) 5.9 % Normal 1.7-12.0 [facility] Comment on above: Performed By: #### C BC #### [facility] [address] [place] [address] Dr. Yogi Naidu NEUT # 4.6 103/ul Normal 1.4-6.5 [facility] Comment on above: Performed By: #### C BC #### [facility] [address] [place] [address] Dr. Yogi Naidu Neutrophils/100 WBC (Bld) 78.0 % Critically high 43.0-75.0 [facility] Comment on above: Performed By: #### C BC #### [facility] [address] [place] [address] Dr. Yogi Naidu Platelet mean volume (Bld) [Entitic vol] 9.1 fL Critically low 9.5-13.5 [facility] Comment on above: Performed By: #### C BC #### [facility] [address] [place] [address] Dr. Yogi Naidu PLT 190 103/ul Normal 150-450 [facility] Comment on above: Performed By: #### C BC #### [facility] [address] [place] [address] Dr. Yogi Naidu RBC 5.01 106/ul Normal 4.70-6.10 [facility] Comment on above: Performed By: #### C BC #### [facility] [address] [place] [address] Dr. Yogi Naidu WBC 5.9 103/ul Normal 4.0-11.0 [facility] Comment on above: Performed By: #### C BC #### [facility] [address] [place] [address] Dr. Yogi Naidu GGTon 06-16-2022 Gamma glutamyl transferase [Catalytic activity/Vol] 28 U/L Normal 15-85 [facility] Comment on above: Performed By: #### C MP, MG, PHOS, GGT #### [facility] [address] [place] [address] Dr. Yogi Naidu MAGNESIUMon 06-16-2022 Magnesium [Mass/Vol] 1.6 mg/dL Critically low 1.8-2.4 [facility] Comment on above: Performed By: #### C MP, MG, PHOS, GGT #### [facility] [address] [place] [address] Dr. Yogi Naidu PHOSPHORUSon 06-16-2022 Phosphate [Mass/Vol] 3.2 mg/dL Normal 2.6-4.7 [facility] Comment on above: Performed By: #### C MP, MG, PHOS, GGT #### [facility] [address] [place] [address] Dr. Yogi Naidu PROF 14(COMP METB)on 023 Albumin [Mass/Vol] 3.8 g/dL Normal 3.4-5.0 [facility] Comment on above: Performed By: #### C MP, MG, PHOS, GGT #### [facility] [address] [place] [address] Dr. Yogi Naidu Albumin/Globulin [Mass ratio] 1.5 {ratio} Normal [facility] Comment on above: Performed By: #### C MP, MG, PHOS, GGT #### [facility] [address] [place] [address] Dr. Yogi Naidu ALP [Catalytic activity/Vol] 74 U/L Normal 46-116 [facility] Comment on above: Performed By: #### C MP, MG, PHOS, GGT #### [facility] [address] [place] [address] Dr. Yogi Naidu ALT [Catalytic activity/Vol] 13 U/L Critically low 16-63 [facility] [facility] Comment on above: Performed By: #### C MP, MG, PHOS, GGT #### [facility] [address] [place] [address] Dr. Yogi Naidu Anion gap [Moles/Vol] 10.8 mmol/L Normal Th [facility] Comment on above: Performed By: #### C MP, MG, PHOS, GGT #### [facility] [address] [place] [address] Dr. Yogi Naidu AST [Catalytic activity/Vol] 15 U/L Normal 15-37 [facility] Comment on above: Performed By: #### C MP, MG, PHOS, GGT #### [facility] [address] [place] [address] Dr. Yogi Naidu Bilirubin [Mass/Vol] 0.8 mg/dL Normal 0.2-1.0 [facility] Comment on above: Performed By: #### C MP, MG, PHOS, GGT #### [facility] [address] [place] [address] Dr. Yogi Naidu Calcium [Mass/Vol] 8.9 mg/dL Normal 8.5-10.1 [facility] Comment on above: Performed By: #### C MP, MG, PHOS, GGT #### [facility] [address] [place] [address] Dr. Yogi Naidu Chloride [Moles/Vol] 108 mmol/L Critically high 98-107 [facility] Comment on above: Performed By: #### C MP, MG, PHOS, GGT #### [facility] [address] [address] [address] Yogi Naidu CO2 [Moles/Vol] 27.6 mmol/L Normal 21.0-32.0 [facility] Comment on above: Performed By: #### C MP, MG, PHOS, GGT #### [facility] [address] [address] [address] Yogi Naidu Creatinine [Mass/Vol] 1.12 mg/dL Normal 0.70-1.30 [facility] Comment on above: Performed By: #### C MP, MG, PHOS, GGT #### [facility] [address] [place] [address] Dr. Yogi Naidu EGFR-AF SCOTTISH >60 Normal >=60 [facility] Comment on above: Performed By: #### C MP, MG, PHOS, GGT #### [facility] [address] [place] [address] Dr. Yogi Naidu EGFR-NON AF SCOTTISH >60 Normal >=60 [facility] Comment on above: Performed By: #### C MP, MG, PHOS, GGT #### [facility] [address] [place] [address] Dr. Yogi Naidu Globulin (S) [Mass/Vol] 2.5 g/dL Normal [facility] Comment on above: Performed By: #### C MP, MG, PHOS, GGT #### [facility] [address] [place] [address] Dr. Yogi Naidu Glucose [Mass/Vol] 95 mg/dL Normal 74-106 [facility] Comment on above: Performed By: #### C MP, MG, PHOS, GGT #### [facility] [address] [place] [address] Dr. Yogi Naidu Potassium [Moles/Vol] 4.4 mmol/L Normal 3.5-5.1 [facility] Comment on above: Performed By: #### C MP, MG, PHOS, GGT #### [facility] [address] [place] [address] Dr. Yogi Naidu Protein [Mass/Vol] 6.3 g/dL Critically low 6.4-8.2 [facility] Comment on above: Performed By: #### C MP, MG, PHOS, GGT #### [facility] [address] [place] [address] Dr. Yogi Naidu Sodium [Moles/Vol] 142 mmol/L Normal 136-145 [facility] Comment on above: Performed By: #### C MP, MG, PHOS, GGT #### [facility] [address] [place] [address] Dr. Yogi Naidu Urea nitrogen [Mass/Vol] 24.0 mg/dL Critically high 7.0-18 .0 [facility] Comment on above: Performed By: #### C MP, MG, PHOS, GGT #### [facility] [address] [place] [address] Dr. Yogi Naidu Urea nitrogen/Creatinine [Mass ratio] 21.4 mg/mg Normal [facility] Comment on above: Performed By: #### C MP, MG, PHOS, GGT #### [facility] [address] [place] [address] Dr. Yogi Naidu BOX TEST SENT OUTon 05-19-20 22 SENT TO REF LAB 05/19/2022 [facility] Comment on above: Performed By: #### E MERLE DE OLIVEIRA #### [facility] [address] [place] [address] Dr. Yogi Naidu CBC AUTO DIFFon 05-19-2022 BASO # 0.1 103/ul Normal 0.0-0.1 [facility] Comment on above: Performed By: #### C MP, MG, PHOS, GGT #### [facility] [address] [place] [address] Dr. Yogi Naidu Basophils/100 WBC (Bld) 1.2 % Normal 0.2-2.0 [facility] Comment on above: Performed By: #### C MP, MG, PHOS, GGT #### [facility] [address] [place] [address] Dr. Yogi Naidu EO # 0.3 103/ul Normal 0.0-0.7 [facility] Comment on above: Performed By: #### C MP, MG, PHOS, GGT #### [facility] [address] [place] [address] Dr. Yogi Naidu Eosinophils/100 WBC (Bld) 4.2 % Normal 0.9-7.0 [facility] Comment on above: Performed By: #### C MP, MG, PHOS, GGT #### [facility] [address] [place] [address] Dr. Yogi Naidu Erythrocyte distribution width (RBC) [Ratio] 14.2 % Normal 11.0-15.0 [facility] Comment on above: Performed By: #### C MP, MG, PHOS, GGT #### [facility] [address] [place] [address] Dr. Yogi Naidu Hematocrit (Bld) [Volume fraction] 45.5 % Normal 42.0-54.0 [facility] Comment on above: Performed By: #### C MP, MG, PHOS, GGT #### [facility] [address] [place] [address] Dr. Yogi Naidu Hemoglobin (Bld) [Mass/Vol] 15.3 g/dL Normal 14.0-18.0 [facility] Comment on above: Performed By: #### C MP, MG, PHOS, GGT #### [facility] [address] [place] [address] Dr. Yogi Naidu IG # 0.02 10e3/ul Normal 0.00-0.03 [facility] Comment on above: Performed By: #### C MP, MG, PHOS, GGT #### [facility] [address] [place] [address] Dr. Yogi Naidu IG % 0.3 % Normal 0.0-0.5 [facility] Comment on above: Performed By: #### C MP, MG, PHOS, GGT #### [facility] [address] [place] [address] Dr. Yogi Naidu LYMPH # 0.7 103/ul Critically low 1.2-3.8 [facility] Comment on above: Performed By: #### C MP, MG, PHOS, GGT #### [facility] [address] [place] [address] Dr. Yogi Naidu Lymphocytes/100 WBC (Bld) 10.1 % Critically low 20.5-60.0 [facility] Comment on above: Performed By: #### C MP, MG, PHOS, GGT #### [facility] [address] [place] [address] Dr. Yogi Naidu MANUAL DIFF REQ NO Normal [facility] Comment on above: Performed By: #### C MP, MG, PHOS, GGT #### [facility] [address] [place] [address] Dr. Yogi Naidu MCH (RBC) [Entitic mass] 29.7 pg Normal 25.9-34.0 [facility] Comment on above: Performed By: #### C MP, MG, PHOS, GGT #### [facility] [address] [place] [address] Dr. Yogi Naidu MCHC (RBC) [Mass/Vol] 33.6 g/dL Normal 29.9-35.2 [facility] Comment on above: Performed By: #### C MP, MG, PHOS, GGT #### [facility] [address] [place] [address] Dr. Yogi Naidu MCV (RBC) [Entitic vol] 88.3 fL Normal 80.0-94.0 [facility] Comment on above: Performed By: #### C MP, MG, PHOS, GGT #### [facility] [address] [place] [address] Dr. Yogi Naidu MONO # 0.5 103/ul Normal 0.3-0.8 [facility] Comment on above: Performed By: #### C MP, MG, PHOS, GGT #### [facility] [address] [place] [address] Dr. Yogi Naidu Monocytes/100 WBC (Bld) 6.6 % Normal 1.7-12.0 [facility] Comment on above: Performed By: #### C MP, MG, PHOS, GGT #### [facility] [address] [place] [address] Dr. Yogi Naidu NEUT # 5.7 103/ul Normal 1.4-6.5 [facility] Comment on above: Performed By: #### C MP, MG, PHOS, GGT #### [facility] [address] [place] [address] Dr. Yogi Naidu Neutrophils/100 WBC (Bld) 77.6 % Critically high 43.0-75.0 [facility] Comment on above: Performed By: #### C MP, MG, PHOS, GGT #### [facility] [address] [place] [address] Dr. Yogi Naidu Platelet mean volume (Bld) [Entitic vol] 9.3 fL Critically low 9.5-13.5 [facility] Comment on above: Performed By: #### C MP, MG, PHOS, GGT #### [facility] [address] [place] [address] Dr. Yogi Naidu PLT 176 103/ul Normal 150-450 [facility] Comment on above: Performed By: #### C MP, MG, PHOS, GGT #### [facility] [address] [place] [address] Dr. Yogi Naidu RBC 5.15 106/ul Normal 4.70-6.10 [facility] Comment on above: Performed By: #### C MP, MG, PHOS, GGT #### [facility] [address] [place] [address] Dr. Yogi Naidu WBC 7.3 103/ul Normal 4.0-11.0 [facility] Comment on above: Performed By: #### C MP, MG, PHOS, GGT #### [facility] [address] [place] [address] Dr. Yogi Naidu GGTon 05-19-2022 Gamma glutamyl transferase [Catalytic activity/Vol] 32 U/L Normal 15-85 [facility] Comment on above: Performed By: #### C BC #### [facility] [address] [place] [address] Dr. Yogi Naidu MAGNESIUMon 05-19-2022 Magnesium [Mass/Vol] 1.9 mg/dL Normal 1.8-2.4 [facility] Comment on above: Performed By: #### C BC #### [facility] [address] [place] [address] Dr. Yogi Naidu PHOSPHORUSon 05-19-2022 Phosphate [Mass/Vol] 2.9 mg/dL Normal 2.6-4.7 [facility] Comment on above: Performed By: #### C BC #### [facility] [address] [place] [address] Dr. Yogi Naidu PROF 14(COMP METB)on 022 Albumin [Mass/Vol] 4.0 g/dL Normal 3.4-5.0 [facility] Comment on above: Performed By: #### C BC #### [facility] [address] [place] [address] Dr. Yogi Naidu Albumin/Globulin [Mass ratio] 1.6 {ratio} Normal [facility] Comment on above: Performed By: #### C BC #### [facility] [address] [place] [address] Dr. Yogi Naidu ALP [Catalytic activity/Vol] 79 U/L Normal 46-116 [facility] Comment on above: Performed By: #### C BC #### [facility] [address] [place] [address] Dr. Yogi Naidu ALT [Catalytic activity/Vol] 13 U/L Critically low 16-63 [facility] Comment on above: Performed By: #### C BC #### [facility] [address] [place] [address] Dr. Yogi Naidu Anion gap [Moles/Vol] 10.1 mmol/L Normal [facility] Comment on above: Performed By: #### C BC #### [facility] [address] [place] [address] Dr. Yogi Naidu AST [Catalytic activity/Vol] 13 U/L Critically low 15-37 [facility] Comment on above: Performed By: #### C BC #### [facility] [address] [place] [address] Dr. Yogi Naidu Bilirubin [Mass/Vol] 0.6 mg/dL Normal 0.2-1.0 [facility] Comment on above: Performed By: #### C BC #### [facility] [address] [place] [address] Dr. Yogi Naidu Calcium [Mass/Vol] 8.9 mg/dL Normal 8.5-10.1 [facility] Comment on above: Performed By: #### C BC #### [facility] [address] [place] [address] Dr. Yogi Naidu Chloride [Moles/Vol] 108 mmol/L Critically high 98-107 [facility] Comment on above: Performed By: #### C BC #### [facility] [address] [place] [address] Dr. Yogi Naidu CO2 [Moles/Vol] 29.2 mmol/L Normal 21.0-32.0 [facility] Comment on above: Performed By: #### C BC #### [facility] [address] [place] [address] Dr. Yogi Naidu Creatinine [Mass/Vol] 0.98 mg/dL Normal 0.70-1.30 [facility] Comment on above: Performed By: #### C BC #### [facility] [address] [place] [address] Dr. Yogi Naidu EGFR-AF SCOTTISH >60 Normal >=60 [facility] Comment on above: Performed By: #### C BC #### [facility] [address] [place] [address] Dr. Yogi Naidu EGFR-NON AF SCOTTISH >60 Normal >=60 [facility] Comment on above: Performed By: #### C BC #### [facility] [address] [place] [address] Dr. Yogi Naidu Globulin (S) [Mass/Vol] 2.5 g/dL Normal [facility] Comment on above: Performed By: #### C BC #### [facility] [address] [place] [address] Dr. Yogi Naidu Glucose [Mass/Vol] 92 mg/dL Normal 74-106 [facility] Comment on above: Performed By: #### C BC #### [facility] [address] [address] [address] Yogi Naidu Potassium [Moles/Vol] 4.3 mmol/L Normal 3.5-5.1 [facility] Comment on above: Performed By: #### C BC #### [facility] [address] [address] [address] Yogi Naidu Protein [Mass/Vol] 6.5 g/dL Normal 6.4-8.2 [facility] Comment on above: Performed By: #### C BC #### [facility] [address] [address] [address] Yogi Naidu Sodium [Moles/Vol] 143 mmol/L Normal 136-145 [facility] Comment on above: Performed By: #### C BC #### [facility] [address] [address] [address] Yogi Naidu Urea nitrogen [Mass/Vol] 24.0 mg/dL Critically high 7.0-18 .0 [facility] Comment on above: Performed By: #### C BC #### [facility] [address] [place] [address] Dr. Yogi Naidu Urea nitrogen/Creatinine [Mass ratio] 24.5 mg/mg Normal [facility] Comment on above: Performed By: #### C BC #### [facility] [address] [place] [address] Dr. Yogi Naidu HEP C RNA BY PCR QUANT (NON- GRAPHICAL) Won 04-22-2022 HCV Genotype RTNI Normal [facility] Comment on above: Result Comment: Not indicated Performed By: #### C BC #### [facility] [address] [place] [address] Dr. Yogi Naidu HCV log10 UPTCAL Normal [facility] Comment on above: Result Comment: Unab le to calculate result since non-numeric result obtained for component test. Performed By: #### C BC #### [facility] [address] [place] [address] Dr. Yogi Naidu Hepatitis C Quantitation Not detected Normal [facility] Comment on above: Performed By: #### C BC #### [facility] [address] [place] [address] Dr. Yogi Naidu Test Information: Comment Normal [facility] Comment on above: Result Comment: The quantitative range of this assay is 15 IU/mL to 100 million IU/mL. Performed By: #### C BC #### [facility] [address] [place] [address] Dr. Yogi Naidu BOX TEST SENT OUTon 04-21-20 22 SENT TO REF LAB 04/21/2022 Normal [facility] Comment on above: Performed By: #### C BC #### [facility] [address] [place] [address] Dr. Yogi Naidu CBC AUTO DIFFon 04-21-2022 BASO # 0.1 103/ul Normal 0.0-0.1 [facility] Comment on above: Performed By: #### C MP, MG, PHOS, GGT #### [facility] [address] [place] [address] Dr. Yogi Naidu Basophils/100 WBC (Bld) 1.0 % Normal 0.2-2.0 [facility] Comment on above: Performed By: #### C MP, MG, PHOS, GGT #### [facility] [address] [place] [address] Dr. Yogi Naidu EO # 0.2 103/ul Normal 0.0-0.7 [facility] Comment on above: Performed By: #### C MP, MG, PHOS, GGT #### [facility] [address] [place] [address] Dr. Yogi Naidu Eosinophils/100 WBC (Bld) 2.7 % Normal 0.9-7.0 [facility] Comment on above: Performed By: #### C MP, MG, PHOS, GGT #### [facility] [address] [place] [address] Dr. Yogi Naidu Erythrocyte distribution width (RBC) [Ratio] 14.2 % Normal 11.0-15.0 [facility] Comment on above: Performed By: #### C MP, MG, PHOS, GGT #### [facility] [address] [place] [address] Dr. Yogi Naidu Hematocrit (Bld) [Volume fraction] 46.5 % Normal 42.0-54.0 [facility] Comment on above: Performed By: #### C MP, MG, PHOS, GGT #### [facility] [address] [place] [address] Dr. Yogi Naidu Hemoglobin (Bld) [Mass/Vol] 15.6 g/dL Normal 14.0-18.0 [facility] Comment on above: Performed By: #### C MP, MG, PHOS, GGT #### [facility] [address] [place] [address] Dr. Yogi Naidu IG # 0.03 10e3/ul Normal 0.00-0.03 [facility] Comment on above: Performed By: #### C MP, MG, PHOS, GGT #### [facility] [address] [place] [address] Dr. Yogi Naidu IG % 0.4 % Normal 0.0-0.5 [facility] Comment on above: Performed By: #### C MP, MG, PHOS, GGT #### [facility] [address] [place] [address] Dr. Yogi Naidu LYMPH # 0.8 103/ul Critically low 1.2-3.8 [facility] Comment on above: Performed By: #### C MP, MG, PHOS, GGT #### [facility] [address] [place] [address] Dr. Yogi Naidu Lymphocytes/100 WBC (Bld) 11.3 % Critically low 20.5-60.0 [facility] Comment on above: Performed By: #### C MP, MG, PHOS, GGT #### [facility] [address] [place] [address] Dr. Yogi Naidu MANUAL DIFF REQ NO Normal [facility] Comment on above: Performed By: #### C MP, MG, PHOS, GGT #### [facility] [address] [place] [address] Dr. Yogi Naidu MCH (RBC) [Entitic mass] 30.1 pg Normal 25.9-34.0 [facility] Comment on above: Performed By: #### C MP, MG, PHOS, GGT #### [facility] [address] [place] [address] Dr. Yogi Naidu MCHC (RBC) [Mass/Vol] 33.5 g/dL Normal 29.9-35.2 [facility] Comment on above: Performed By: #### C MP, MG, PHOS, GGT #### [facility] [address] [place] [address] Dr. Yogi Naidu MCV (RBC) [Entitic vol] 89.6 fL Normal 80.0-94.0 [facility] Comment on above: Performed By: #### C MP, MG, PHOS, GGT #### [facility] [address] [place] [address] Dr. Yogi Naidu MONO # 0.4 103/ul Normal 0.3-0.8 [facility] Comment on above: Performed By: #### C MP, MG, PHOS, GGT #### [facility] [address] [place] [address] Dr. Yogi Naidu Monocytes/100 WBC (Bld) 6.0 % Normal 1.7-12.0 [facility] Comment on above: Performed By: #### C MP, MG, PHOS, GGT #### [facility] [address] [place] [address] Dr. Yogi Naidu NEUT # 5.5 103/ul Normal 1.4-6.5 [facility] Comment on above: Performed By: #### C MP, MG, PHOS, GGT #### [facility] [address] [place] [address] Dr. Yogi Naidu Neutrophils/100 WBC (Bld) 78.6 % Critically high 43.0-75.0 [facility] Comment on above: Performed By: #### C MP, MG, PHOS, GGT #### [facility] [address] [place] [address] Dr. Yogi Naidu Platelet mean volume (Bld) [Entitic vol] 10.1 fL Normal 9.5-13.5 [facility] Comment on above: Performed By: #### C MP, MG, PHOS, GGT #### [facility] [address] [place] [address] Dr. Yogi Naidu PLT 204 103/ul Normal 150-450 [facility] Comment on above: Performed By: #### C MP, MG, PHOS, GGT #### [facility] [address] [place] [address] Dr. Yogi Naiud RBC 5.19 106/ul Normal 4.70-6.10 [facility] Comment on above: Performed By: #### C MP, MG, PHOS, GGT #### [facility] [address] [place] [address] Dr. Yogi Naidu WBC 7.0 103/ul Normal 4.0-11.0 [facility] Comment on above: Performed By: #### C MP, MG, PHOS, GGT #### [facility] [address] [place] [address] Dr. Yogi Naidu GGTon 04-21-2022 Gamma glutamyl transferase [Catalytic activity/Vol] 34 U/L Normal 15-85 [facility] Comment on above: Performed By: #### MERLE CULVER #### [facility] [address] [place] [address] Dr. Yogi Naidu LIPID PROFILEon 04-21-2022 CHOL-HDL RATIO NORM SEE BELOW Normal [facility] Comment on above: Result Comment: 3.3 - 4.4 LOW RISK 4.4 - 7.1 AVERAGE RISK 7.1 - 11.0 MODERATE RISK >11.0 HIGH RISK Performed By: #### ADSH CULVERRO #### [facility] [address] [place] [address] Dr. Yogi Naidu Cholesterol [Mass/Vol] 190 mg/dL Normal <=200 [facility] Comment on above: Performed By: #### DASH CULVERRO #### [facility] [address] [place] [address] Dr. Yogi Naidu Cholesterol in HDL [Mass/Vol] 49 mg/dL Normal 40-60 [facility] Comment on above: Performed By: #### MERLE CULVER #### [facility] [address] [place] [address] Dr. Yogi Naidu Cholesterol in LDL [Mass/Vol] 127.8 mg/dL Normal [facility] Comment on above: Performed By: #### MERLE CULVER #### [facility] [address] [place] [address] Dr. Yogi Naidu Cholesterol.total/Choles terol in HDL [Mass ratio] 3.9 {ratio} Normal [facility] Comment on above: Performed By: #### DASH CULVERRO #### [facility] [address] [place] [address] Dr. Yogi Naidu HDL NORMAL > or = 60 mg/dl - LO W CARDIOVASCULAR RISK <40 mg/dl - HIGH CARDIOVASCULAR RISK Normal [facility] Comment on above: Performed By: #### DASH CULVERRO #### [facility] [address] [place] [address] Dr. Yogi Naidu LDL CALC NORMAL SEE BELOW Normal [facility] Comment on above: Result Comment: <100 mg/dl OPTIMAL 100 - 129 mg/dl NEAR OR ABOVE OPTIMAL 130 - 159 mg/dl BORDERLINE HIGH 160 - 189 mg/dl HIGH >190 mg/dl VERY HIGH Performed By: #### MERLE CULVER #### [facility] [address] [place] [address] Dr. Yogi Naidu Triglyceride [Mass/Vol] 66 mg/dL Normal <=150 [facility] Comment on above: Performed By: #### MERLE CULVER #### [facility] [address] [place] [address] Dr. Yogi Naidu VLDL CALC 13.2 mg/dL Normal [facility] Comment on above: Performed By: #### DASH CULVERRO #### [facility] [address] [place] [address] Dr. Yogi Naidu MAGNESIUMon 04-21-2022 Magnesium [Mass/Vol] 1.8 mg/dL Normal 1.8-2.4 [facility] Comment on above: Performed By: #### MERLE CULVER #### [facility] [address] [place] [address] Dr. Yogi Naidu PHOSPHORUSon 04-21-2022 Phosphate [Mass/Vol] 3.4 mg/dL Normal 2.6-4.7 [facility] Comment on above: Performed By: #### DASH CULVERRO #### [facility] [address] [place] [address] Dr. Yogi Naidu PROF 14(COMP METB)on 022 Albumin [Mass/Vol] 4.0 g/dL Normal 3.4-5.0 [facility] Comment on above: Performed By: #### DASH CULVERRO #### [facility] [address] [place] [address] Dr. Yogi Naidu Albumin/Globulin [Mass ratio] 1.6 {ratio} Normal [facility] Comment on above: Performed By: #### DASH CULVERRO #### [facility] [address] [place] [address] Dr. Yogi Naidu ALP [Catalytic activity/Vol] 81 U/L Normal 46-116 [facility] Comment on above: Performed By: #### DASH CULVERRO #### [facility] [address] [place] [address] Dr. Yogi Naidu ALT [Catalytic activity/Vol] 14 U/L Critically low 16-63 [facility] Comment on above: Performed By: #### DASH CULVERRO #### [facility] [address] [place] [address] Dr. Yogi Naidu Anion gap [Moles/Vol] 8.8 mmol/L Normal [facility] Comment on above: Performed By: #### DASH CULVERRO #### [facility] [address] [place] [address] Dr. Yogi Naidu AST [Catalytic activity/Vol] 15 U/L Normal 15-37 [facility] Comment on above: Performed By: #### DASH CULVERRO #### [facility] [address] [place] [address] Dr. Yogi Naidu Bilirubin [Mass/Vol] 0.6 mg/dL Normal 0.2-1.0 [facility] Comment on above: Performed By: #### MERLE CULVER #### [facility] [address] [place] [address] Dr. Yogi Naidu Calcium [Mass/Vol] 9.2 mg/dL Normal 8.5-10.1 [facility] Comment on above: Performed By: #### MERLE CULVER #### [facility] [address] [place] [address] Dr. Yogi Naidu Chloride [Moles/Vol] 106 mmol/L Normal 98-107 [facility] Comment on above: Performed By: #### MERLE CULVER #### [facility] [address] [place] [address] Dr. Yogi Naidu CO2 [Moles/Vol] 28.5 mmol/L Normal 21.0-32.0 [facility] Comment on above: Performed By: #### MERLE CULVER #### [facility] [address] [place] [address] Dr. oYgi Naidu Creatinine [Mass/Vol] 1.12 mg/dL Normal 0.70-1.30 [facility] Comment on above: Performed By: #### MERLE CULVER #### [facility] [address] [place] [address] Dr. Yogi Naidu EGFR-AF SCOTTISH >60 Normal >=60 [facility] Comment on above: Performed By: #### MERLE CULVER #### [facility] [address] [place] [address] Dr. Yogi Naidu EGFR-NON AF SCOTTISH >60 Normal >=60 [facility] Comment on above: Performed By: #### DASH CULVERRO #### [facility] [address] [place] [address] Dr. Yogi Naidu Globulin (S) [Mass/Vol] 2.5 g/dL Normal [facility] Comment on above: Performed By: #### DASH CULVERRO #### [facility] [address] [address] [address] Yogi Naidu Glucose [Mass/Vol] 91 mg/dL Normal 74-106 [facility] Comment on above: Performed By: #### Vesta DE OLIVEIRA, UMICRO #### [facility] [address] [place] [address] Dr. Yogi Naidu Potassium [Moles/Vol] 4.3 mmol/L Normal 3.5-5.1 [facility] Comment on above: Performed By: #### Vesta DE OLIVEIRA, UMICRO #### [facility] [address] [address] [address] Yogi Naidu Protein [Mass/Vol] 6.5 g/dL Normal 6.4-8.2 [facility] Comment on above: Performed By: #### Vesta DE OLIVEIRA, UMICRO #### [facility] [address] [place] [address] Dr. Yogi aNidu Sodium [Moles/Vol] 139 mmol/L Normal 136-145 [facility] Comment on above: Performed By: #### Vesta DE OLIVEIRA, UMICRO #### [facility] [address] [address] [address] Yogi Naidu Urea nitrogen [Mass/Vol] 25.0 mg/dL Critically high 7.0-18 .0 [facility] Comment on above: Performed By: #### Vesta DE OLIVEIRA, UMICRO #### [facility] [address] [place] [address] Dr. Yogi Naidu Urea nitrogen/Creatinine [Mass ratio] 22.3 mg/mg Normal [facility] Comment on above: Performed By: #### E ALVINO, UMICRO #### [facility] [address] [place] [address] Dr. Yogi Naidu Tobacco Screening.on 022 Adult depression screening assessment No [email or web address] 250 DO Work Phone: Fall risk assessment a) No falls within the last year [email or web address] 250 DO Work Phone: Tobacco use status [facility] b) No [facility] [employer] 250 DO Work Phone: BOX TEST SENT OUTon 03-17-20 22 SENT TO REF LAB 03/17/2022 Normal [facility] Comment on above: Performed By: #### C MP, MG, PHOS, GGT #### [facility] [address] [place] [address] Dr. Yogi Naidu CBC W MANUAL DIFFon 03-17-20 22 ATYPICAL LYMPH # Normal [facility] Comment on above: Performed By: #### DASH CULVERRO #### [facility] [address] [place] [address] Dr. Yogi Naidu ATYPICAL LYMPH % Normal [facility] Comment on above: Performed By: #### MERLE CULVER #### [facility] [address] [place] [address] Dr. Yogi Naidu BAND # Normal 0.0-0.3 [facility] Comment on above: Performed By: #### MERLE CULVER #### [facility] [address] [place] [address] Dr. Yogi Naidu BAND % Normal 0-5 [facility] Comment on above: Performed By: #### MERLE CULVER #### [facility] [address] [place] [address] Dr. Yogi Naidu BASOM # 0.00 103/ul Normal 0.00-0.10 [facility] Comment on above: Performed By: #### MERLE CULVER #### [facility] [address] [place] [address] Dr. Yogi Naidu BASOM % 0.0 % Critically low 0.2-2.0 [facility] Comment on above: Performed By: #### MERLE CULVER #### [facility] [address] [place] [address] Dr. Yogi Naidu BLAST # Normal [facility] Comment on above: Performed By: #### MERLE CULVER #### [facility] [address] [place] [address] Dr. Yogi Naidu BLAST % Normal [facility] Comment on above: Performed By: #### Vesta DE OLIVEIRA UMICRO #### [facility] [address] [address] [address] Yogi Naidu CORRECTED WBC Normal 4.0-11.0 [facility] Comment on above: Performed By: #### Vesta DE OLIVEIRA UMICRO #### [facility] [address] [address] [address] Yogi Naidu EOS # 0.20 103/ul Normal 0.00-0.70 [facility] Comment on above: Performed By: #### Vesta DE OLIVEIRA UMICRO #### [facility] [address] [address] [address] Yogi Naidu EOS% 3.0 % Normal 0.9-7.0 [facility] Comment on above: Performed By: #### Vesta DE OLIVEIRA UMICRO #### [facility] [address] [address] [address] Yogi Naidu HCT 45.6 % Normal 42.0-54.0 [facility] Comment on above: Performed By: #### Vesta DE OLIVEIRA UMICRO #### [facility] [address] [address] [address] Yogi Naidu HGB 15.2 g/dl Normal 14.0-18.0 [facility] Comment on above: Performed By: #### Vesta DE OLIVEIRA UMICRO #### [facility] [address] [address] [address] Yogi Naidu LYMPHM # 0.78 103/ul Critically low 1.20-3.80 [facility] Comment on above: Performed By: #### Vesta DE OLIVEIRA UMICRO #### [facility] [address] [address] [address] Yogi Naidu LYMPHM% 12.0 % Critically low 20.5-60.0 [facility] Comment on above: Performed By: #### Vesta DE OLIVEIRA UMICRO #### [facility] [address] [address] [address] Yogi Naidu MCH 30.4 pg Normal 25.9-34.0 [facility] Comment on above: Performed By: #### Vesta DE OLIVEIRA UMICRO #### [facility] [address] [place] [address] Dr. Yogi Naidu MCHC 33.3 g/dl Normal 29.9-35.2 [facility] Comment on above: Performed By: #### Vesta DE OLIVEIRA UMICRO #### [facility] [address] [place] [address] Dr. Yogi Naidu MCV 91.2 fL Normal 80.0-94.0 [facility] Comment on above: Performed By: #### Vesta DE OLIVEIRA UMICRO #### [facility] [address] [place] [address] Dr. Yogi Naidu METAMYELOCYTE # Normal [facility] Comment on above: Performed By: #### Vesta DE OLIVEIRA UMICRO #### [facility] [address] [place] [address] Dr. Yogi Naidu METAMYELOCYTE % Normal [facility] Comment on above: Performed By: #### Vesta DE OLIVEIRA UMICRO #### [facility] [address] [place] [address] Dr. Yogi Naidu MONOM# 0.39 103/ul Normal 0.30-0.80 [facility] Comment on above: Performed By: #### Vesta DE OLIVEIRA UMICRO #### [facility] [address] [place] [address] Dr. Yogi Naidu MONOM% 6.0 % Normal 1.7-12.0 [facility] Comment on above: Performed By: #### Vesta DE OLIVEIRA UMICRO #### [facility] [address] [place] [address] Dr. Yogi Naidu MPV 9.6 fL Normal 9.5-13.5 [facility] Comment on above: Performed By: #### Vesta DE OLIVEIRA UMICRO #### [facility] [address] [place] [address] Dr. Yogi Naidu MYELOCYTE # Normal [facility] Comment on above: Performed By: #### Vesta DE OLIVEIRA UMICRO #### [facility] [address] [place] [address] Dr. Yogi Naidu MYELOCYTE % Normal [facility] Comment on above: Performed By: #### DASH CULVERRO #### [facility] [address] [place] [address] Dr. Yogi Naidu NRBC Normal [facility] Comment on above: Performed By: #### DASH CULVERRO #### [facility] [address] [place] [address] Dr. Yogi Naidu PLT 180 103/ul Normal 150-450 [facility] Comment on above: Performed By: #### DASH CULVERRO #### [facility] [address] [place] [address] Dr. Yogi Naidu RBC 5.00 106/ul Normal 4.70-6.10 [facility] Comment on above: Performed By: #### DASH CULVERRO #### [facility] [address] [place] [address] Dr. Yogi Naidu RDW 14.1 % Normal 11.0-15.0 [facility] Comment on above: Performed By: #### DASH CULVERRO #### [facility] [address] [place] [address] Dr. Yogi Naidu SEG # 5.13 103/ul Normal 1.40-6.50 [facility] Comment on above: Performed By: #### DASH CULVERRO #### [facility] [address] [place] [address] Dr. Yogi Naidu SEG % 79.0 % Critically high 43.0-75.0 [facility] Comment on above: Performed By: #### SONU CULVERICRO #### [facility] [address] [place] [address] Dr. Yogi Naidu WBC 6.5 103/ul Normal 4.0-11.0 [facility] Comment on above: Performed By: #### DASH CULVERRO #### [facility] [address] [place] [address] Dr. Yogi Naidu GGTon 03-17-2022 Gamma glutamyl transferase [Catalytic activity/Vol] 37 U/L Normal 15-85 [facility] Comment on above: Performed By: #### C MP, MG, PHOS, GGT #### [facility] [address] [place] [address] Dr. Yogi Naidu MAGNESIUMon 03-17-2022 Magnesium [Mass/Vol] 1.8 mg/dL Normal 1.8-2.4 [facility] Comment on above: Performed By: #### C MP, MG, PHOS, GGT #### [facility] [address] [place] [address] Dr. Yogi Naidu PHOSPHORUSon 03-17-2022 Phosphate [Mass/Vol] 2.9 mg/dL Normal 2.6-4.7 [facility] Comment on above: Performed By: #### C MP, MG, PHOS, GGT #### [facility] [address] [place] [address] Dr. Yogi Naidu PROF 14(COMP METB)on 022 Albumin [Mass/Vol] 3.9 g/dL Normal 3.4-5.0 [facility] Comment on above: Performed By: #### C MP, MG, PHOS, GGT #### [facility] [address] [place] [address] Dr. Yogi Naidu Albumin/Globulin [Mass ratio] 1.6 {ratio} Normal [facility] Comment on above: Performed By: #### C MP, MG, PHOS, GGT #### [facility] [address] [place] [address] Dr. Yogi Naidu ALP [Catalytic activity/Vol] 75 U/L Normal 46-116 [facility] Comment on above: Performed By: #### C MP, MG, PHOS, GGT #### [facility] [address] [place] [address] Dr. Yogi Naidu ALT [Catalytic activity/Vol] 20 U/L Normal 16-63 [facility] Comment on above: Performed By: #### C MP, MG, PHOS, GGT #### [facility] [address] [place] [address] Dr. Yogi Naidu Anion gap [Moles/Vol] 9.6 mmol/L Normal [facility] Comment on above: Performed By: #### C MP, MG, PHOS, GGT #### [facility] [address] [place] [address] Dr. Yogi Naidu AST [Catalytic activity/Vol] 13 U/L Critically low 15-37 [facility] Comment on above: Performed By: #### C MP, MG, PHOS, GGT #### [facility] [address] [place] [address] Dr. Yogi Naidu Bilirubin [Mass/Vol] 0.7 mg/dL Normal 0.2-1.0 [facility] Comment on above: Performed By: #### C MP, MG, PHOS, GGT #### [facility] [address] [place] [address] Dr. Yogi Naidu Calcium [Mass/Vol] 9.0 mg/dL Normal 8.5-10.1 [facility] Comment on above: Performed By: #### C MP, MG, PHOS, GGT #### [facility] [address] [place] [address] Dr. Yogi Naidu Chloride [Moles/Vol] 108 mmol/L Critically high 98-107 [facility] Comment on above: Performed By: #### C MP, MG, PHOS, GGT #### [facility] [address] [place] [address] Dr. Yogi Naidu CO2 [Moles/Vol] 28.3 mmol/L Normal 21.0-32.0 [facility] Comment on above: Performed By: #### C MP, MG, PHOS, GGT #### [facility] [address] [place] [address] Dr. Yogi Naidu Creatinine [Mass/Vol] 1.17 mg/dL Normal 0.70-1.30 [facility] Comment on above: Performed By: #### C MP, MG, PHOS, GGT #### [facility] [address] [place] [address] Dr. Yogi Naidu EGFR-AF SCOTTISH >60 Normal >=60 [facility] Comment on above: Performed By: #### C MP, MG, PHOS, GGT #### [facility] [address] [address] [address] Yogi Naidu EGFR-NON AF SCOTTISH >60 Normal >=60 [facility] Comment on above: Performed By: #### C MP, MG, PHOS, GGT #### [facility] [address] [place] [address] Dr. Yogi Naidu Globulin (S) [Mass/Vol] 2.4 g/dL Normal [facility] Comment on above: Performed By: #### C MP, MG, PHOS, GGT #### [facility] [address] [place] [address] Dr. Yogi Naidu Glucose [Mass/Vol] 102 mg/dL Normal 74-106 [facility] Comment on above: Performed By: #### C MP, MG, PHOS, GGT #### [facility] [address] [place] [address] Dr. Yogi Naidu Potassium [Moles/Vol] 4.9 mmol/L Normal 3.5-5.1 [facility] Comment on above: Performed By: #### C MP, MG, PHOS, GGT #### [facility] [address] [place] [address] Dr. Yogi Naidu Protein [Mass/Vol] 6.3 g/dL Critically low 6.4-8.2 [facility] Comment on above: Performed By: #### C MP, MG, PHOS, GGT #### [facility] [address] [address] [address] Yogi Naidu Sodium [Moles/Vol] 141 mmol/L Normal 136-145 [facility] Comment on above: Performed By: #### C MP, MG, PHOS, GGT #### [facility] [address] [place] [address] Dr. Yogi Naidu Urea nitrogen [Mass/Vol] 22.0 mg/dL Critically high 7.0-18 .0 [facility] Comment on above: Performed By: #### C MP, MG, PHOS, GGT #### [facility] [address] [place] [address] Dr. Yogi Naidu Urea nitrogen/Creatinine [Mass ratio] 18.8 mg/mg Normal [facility] Comment on above: Performed By: #### C MP, MG, PHOS, GGT #### [facility] [address] [place] [address] Dr. Yogi Naidu BOX TEST SENT OUTon 02-19-20 22 SENT TO REF LAB 02/18/2022 Normal [facility] Comment on above: Performed By: #### E DASH DE OLIVEIRARO #### [facility] [address] [place] [address] Dr. Yogi Naidu CBC W MANUAL DIFFon 02-19-20 22 ATYPICAL LYMPH # Normal [facility] Comment on above: Performed By: #### C MP, MG, PHOS, GGT #### [facility] [address] [place] [address] Dr. Yogi Naidu ATYPICAL LYMPH % Normal [facility] Comment on above: Performed By: #### C MP, MG, PHOS, GGT #### [facility] [address] [place] [address] Dr. Yogi Naidu BAND # Normal 0.0-0.3 [facility] Comment on above: Performed By: #### C MP, MG, PHOS, GGT #### [facility] [address] [place] [address] Dr. Yogi Naidu BAND % Normal 0-5 [facility] Comment on above: Performed By: #### C MP, MG, PHOS, GGT #### [facility] [address] [place] [address] Dr. Yogi Naidu BASOM # 0.00 103/ul Normal 0.00-0.10 [facility] Comment on above: Performed By: #### C MP, MG, PHOS, GGT #### [facility] [address] [place] [address] Dr. Yogi Naidu BASOM % 0.0 % Critically low 0.2-2.0 [facility] Comment on above: Performed By: #### C MP, MG, PHOS, GGT #### [facility] [address] [place] [address] Dr. Yogi Naidu BLAST # Normal [facility] Comment on above: Performed By: #### C MP, MG, PHOS, GGT #### [facility] [address] [place] [address] Dr. Yogi Naidu BLAST % Normal [facility] Comment on above: Performed By: #### C MP, MG, PHOS, GGT #### [facility] [address] [place] [address] Dr. Yogi Naidu CORRECTED WBC Normal 4.0-11.0 [facility] Comment on above: Performed By: #### C MP, MG, PHOS, GGT #### [facility] [address] [place] [address] Dr. Yogi Naidu EOS # 0.21 103/ul Normal 0.00-0.70 [facility] Comment on above: Performed By: #### C MP, MG, PHOS, GGT #### [facility] [address] [place] [address] Dr. Yogi Naidu EOS% 4.0 % Normal 0.9-7.0 [facility] Comment on above: Performed By: #### C MP, MG, PHOS, GGT #### [facility] [address] [place] [address] Dr. Yogi Naidu HCT 43.6 % Normal 42.0-54.0 [facility] Comment on above: Performed By: #### C MP, MG, PHOS, GGT #### [facility] [address] [place] [address] Dr. Yogi Naidu HGB 14.9 g/dl Normal 14.0-18.0 [facility] Comment on above: Performed By: #### C MP, MG, PHOS, GGT #### [facility] [address] [place] [address] Dr. Yogi Naidu LYMPHM # 0.62 103/ul Critically low 1.20-3.80 [facility] Comment on above: Performed By: #### C MP, MG, PHOS, GGT #### [facility] [address] [place] [address] Dr. Yogi Naidu LYMPHM% 12.0 % Critically low 20.5-60.0 [facility] Comment on above: Performed By: #### C MP, MG, PHOS, GGT #### [facility] [address] [place] [address] Dr. Yogi Naidu MCH 30.1 pg Normal 25.9-34.0 [facility] Comment on above: Performed By: #### C MP, MG, PHOS, GGT #### [facility] [address] [place] [address] Dr. Yogi Naidu MCHC 34.2 g/dl Normal 29.9-35.2 [facility] Comment on above: Performed By: #### C MP, MG, PHOS, GGT #### [facility] [address] [place] [address] Dr. Yogi Naidu MCV 88.1 fL Normal 80.0-94.0 [facility] Comment on above: Performed By: #### C MP, MG, PHOS, GGT #### [facility] [address] [place] [address] Dr. Yogi Naidu METAMYELOCYTE # Normal [facility] Comment on above: Performed By: #### C MP, MG, PHOS, GGT #### [facility] [address] [place] [address] Dr. Yogi Naidu METAMYELOCYTE % Normal [facility] Comment on above: Performed By: #### C MP, MG, PHOS, GGT #### [facility] [address] [place] [address] Dr. Yogi Naidu MONOM# 0.05 103/ul Critically low 0.30-0.80 [facility] Comment on above: Performed By: #### C MP, MG, PHOS, GGT #### [facility] [address] [place] [address] Dr. Yogi Naidu MONOM% 1.0 % Critically low 1.7-12.0 [facility] Comment on above: Performed By: #### C MP, MG, PHOS, GGT #### [facility] [address] [place], [place] [id number] Dr. Yogi Naidu MPV 9.2 fL Critically low 9.5-13.5 [facility] Comment on above: Performed By: #### C MP, MG, PHOS, GGT #### [facility] [address] [place] [address] Dr. Yogi Naidu MYELOCYTE # Normal [facility] Comment on above: Performed By: #### C MP, MG, PHOS, GGT #### [facility] [address] [place] [address] Dr. Yogi Naidu MYELOCYTE % Normal [facility] Comment on above: Performed By: #### C MP, MG, PHOS, GGT #### [facility] [address] [place] [address] Dr. Yogi Naidu NRBC Normal [facility] Comment on above: Performed By: #### C MP, MG, PHOS, GGT #### [facility] [address] [place] [address] Dr. Yogi Naidu PLT 143 103/ul Critically low 150-450 [facility] Comment on above: Performed By: #### C MP, MG, PHOS, GGT #### [facility] [address] [place] [address] Dr. Yogi Naidu RBC 4.95 106/ul Normal 4.70-6.10 [facility] Comment on above: Performed By: #### C MP, MG, PHOS, GGT #### [facility] [address] [place] [address] Dr. Yogi Naidu RDW 13.9 % Normal 11.0-15.0 [facility] Comment on above: Performed By: #### C MP, MG, PHOS, GGT #### [facility] [address] [place] [address] Dr. Yogi Naidu SEG # 4.32 103/ul Normal 1.40-6.50 [facility] Comment on above: Performed By: #### C MP, MG, PHOS, GGT #### [facility] [address] [place] [address] Dr. Yogi Naidu SEG % 83.0 % Critically high 43.0-75.0 [facility] Comment on above: Performed By: #### C MP, MG, PHOS, GGT #### [facility] [address] [place] [address] Dr. Yogi Naidu WBC 5.2 103/ul Normal 4.0-11.0 [facility] Comment on above: Performed By: #### C MP, MG, PHOS, GGT #### [facility] [address] [place] [address] Dr. Yogi Naidu GGTon 02-18-2022 Gamma glutamyl transferase [Catalytic activity/Vol] 38 U/L Normal 15-85 [facility] Comment on above: Performed By: #### C BC #### [facility] [address] [place] [address] Dr. Yogi Naidu MAGNESIUMon 02-18-2022 Magnesium [Mass/Vol] 1.8 mg/dL Normal 1.8-2.4 [facility] Comment on above: Performed By: #### C BC #### [facility] [address] [place] [address] Dr. Yogi Naidu PHOSPHORUSon 02-18-2022 Phosphate [Mass/Vol] 2.5 mg/dL Critically low 2.6-4.7 [facility] Comment on above: Performed By: #### C MP, MG, PHOS, GGT #### [facility] [address] [place] [address] Dr. Yogi Naidu PROF 14(COMP METB)on 022 Albumin [Mass/Vol] 3.8 g/dL Normal 3.4-5.0 [facility] Comment on above: Performed By: #### C MP, MG, PHOS, GGT #### [facility] [address] [place] [address] Dr. Yogi Naidu Albumin/Globulin [Mass ratio] 1.6 {ratio} Normal [facility] Comment on above: Performed By: #### C MP, MG, PHOS, GGT #### [facility] [address] [place] [address] Dr. Yogi Naidu ALP [Catalytic activity/Vol] 69 U/L Normal 46-116 [facility] Comment on above: Performed By: #### C MP, MG, PHOS, GGT #### [facility] [address] [place] [address] Dr. Yogi Naidu ALT [Catalytic activity/Vol] 17 U/L Normal 16-63 [facility] Comment on above: Performed By: #### C MP, MG, PHOS, GGT #### [facility] [address] [place] [address] Dr. Yogi Naidu Anion gap [Moles/Vol] 10.0 mmol/L Normal [facility] Comment on above: Performed By: #### C MP, MG, PHOS, GGT #### [facility] [address] [place] [address] Dr. Yogi Naidu AST [Catalytic activity/Vol] 15 U/L Normal 15-37 [facility] Comment on above: Performed By: #### C MP, MG, PHOS, GGT #### [facility] [address] [place] [address] Dr. Yogi Naidu Bilirubin [Mass/Vol] 0.7 mg/dL Normal 0.2-1.0 [facility] Comment on above: Performed By: #### C MP, MG, PHOS, GGT #### [facility] [address] [place] [address] Dr. Yogi Naidu Calcium [Mass/Vol] 8.3 mg/dL Critically low 8.5-10.1 [facility] Comment on above: Performed By: #### C MP, MG, PHOS, GGT #### [facility] [address] [place] [address] Dr. Yogi Naidu Chloride [Moles/Vol] 107 mmol/L Normal 98-107 [facility] Comment on above: Performed By: #### C MP, MG, PHOS, GGT #### [facility] [address] [place] [address] Dr. Yogi Naidu CO2 [Moles/Vol] 27.0 mmol/L Normal 21.0-32.0 [facility] Comment on above: Performed By: #### C MP, MG, PHOS, GGT #### [facility] [address] [place] [address] Dr. Yogi Naidu Creatinine [Mass/Vol] 1.29 mg/dL Normal 0.70-1.30 [facility] Comment on above: Performed By: #### C MP, MG, PHOS, GGT #### [facility] [address] [place] [address] Dr. Yogi Naidu EGFR-AF SCOTTISH >60 Normal >=60 [facility] Comment on above: Performed By: #### C MP, MG, PHOS, GGT #### [facility] [address] [place] [address] Dr. Yogi Naidu EGFR-NON AF SCOTTISH 55 mL/min/1.73m2 Critically low >=60 [facility] Comment on above: Performed By: #### C MP, MG, PHOS, GGT #### [facility] [address] [place] [address] Dr. Yogi Naidu Globulin (S) [Mass/Vol] 2.4 g/dL Normal [facility] Comment on above: Performed By: #### C MP, MG, PHOS, GGT #### [facility] [address] [place] [address] Dr. Yogi Naidu Glucose [Mass/Vol] 95 mg/dL Normal 74-106 [facility] Comment on above: Performed By: #### C MP, MG, PHOS, GGT #### [facility] [address] [place] [address] Dr. Yogi Naidu Potassium [Moles/Vol] 4.0 mmol/L Normal 3.5-5.1 [facility] Comment on above: Performed By: #### C MP, MG, PHOS, GGT #### [facility] [address] [place] [address] Dr. Yogi Naidu Protein [Mass/Vol] 6.2 g/dL Critically low 6.4-8.2 [facility] Comment on above: Performed By: #### C MP, MG, PHOS, GGT #### [facility] [address] [place] [address] Dr. Yogi Naidu Sodium [Moles/Vol] 140 mmol/L Normal 136-145 [facility] Comment on above: Performed By: #### C MP, MG, PHOS, GGT #### [facility] [address] [place] [address] Dr. Yogi Naidu Urea nitrogen [Mass/Vol] 26.0 mg/dL Critically high 7.0-18 .0 [facility] Comment on above: Performed By: #### C MP, MG, PHOS, GGT #### [facility] [address] [address] [address] Yogi Naidu Urea nitrogen/Creatinine [Mass ratio] 20.2 mg/mg Normal [facility] Comment on above: Performed By: #### C MP, MG, PHOS, GGT #### [facility] [address] [place] [address] Dr. Yogi Naidu US PROSTATEon 01-22-2022 US [...] SUSAN POPE Date: 2022-01-22 16:08 Normal [facility] Covid-19 PCR ([facility]on SARS-CoV-2 (COVID-19) RNA LUZ MARIA+probe Ql (Unsp spec) Not detected Normal NOT DETECTED [facility] Comment on above: Result Comment: This test is not yet approved or cleared by the [place] FDA. When there are no FDA-approved or cleared tests available, and other criteria are met, FDA can make tests available under an emergency access mechanism called an Emergency Use Authorization (EUA). The EUA for this test is supported by the Genetic Physician of Health and Human Service's (HHS's) declaration [...] By: #### E MERLE DE OLIVEIRA #### [facility] [address] [place] [address] Dr. Yogi Naidu HEP C RNA BY PCR QUANT (NON- GRAPHICAL) Won 01-14-2022 HCV Genotype RTNI Normal [facility] Comment on above: Result Comment: Not indicated Performed By: #### C MP, MG, PHOS, GGT #### [facility] [address] [place] [address] Dr. Yogi Naidu HCV log10 UPTCAL Normal [facility] Comment on above: Result Comment: Unab le to calculate result since non-numeric result obtained for component test. Performed By: #### C MP, MG, PHOS, GGT #### [facility] [address] [place] [address] Dr. Yogi Naidu Hepatitis C Quantitation Not detected Normal [facility] Comment on above: Performed By: #### C MP, MG, PHOS, GGT #### [facility] [address] [place] [address] Dr. Yogi Naidu Test Information: Comment Normal [facility] Comment on above: Result Comment: The quantitative range of this assay is 15 IU/mL to 100 million IU/mL. Performed By: #### C MP, MG, PHOS, GGT #### [facility] [address] [place] [address] Dr. Yogi Naidu BOX TEST SENT OUTon 01-14-20 22 SENT TO REF LAB 01/13/2022 Normal [facility] Comment on above: Performed By: #### B OX #### [facility] [address] [place] [address] Dr. Yogi Naidu CBC W MANUAL DIFFon 08-01-20 22 ANISOCYTOSIS SLIGHT Normal [facility] Comment on above: Performed By: #### C MP, MG, PHOS, GGT #### [facility] [address] [address] [address] Yogi Naidu ATYPICAL LYMPH # Normal [facility] Comment on above: Performed By: #### C MP, MG, PHOS, GGT #### [facility] [address] [address] [address] Yogi Naidu ATYPICAL LYMPH % Normal [facility] Comment on above: Performed By: #### C MP, MG, PHOS, GGT #### [facility] [address] [address] [address] Yogi Naidu BAND # Normal 0.0-0.3 [facility] Comment on above: Performed By: #### C MP, MG, PHOS, GGT #### [facility] [address] [address] [address] Yoig Naidu BAND % Normal 0-5 [facility] Comment on above: Performed By: #### C MP, MG, PHOS, GGT #### [facility] [address] [address] [address] Yogi Naidu BASOM # 0.00 103/ul Normal 0.00-0.10 [facility] Comment on above: Performed By: #### C MP, MG, PHOS, GGT #### [facility] [address] [address] [address] Yogi Naidu BASOM % 0.0 % Critically low 0.2-2.0 [facility] Comment on above: Performed By: #### C MP, MG, PHOS, GGT #### [facility] [address] [address] [address] Yogi Naidu BLAST # Normal [facility] Comment on above: Performed By: #### C MP, MG, PHOS, GGT #### [facility] [address] [address] [address] Yogi Naidu BLAST % Normal [facility] Comment on above: Performed By: #### C MP, MG, PHOS, GGT #### [facility] [address] [place] [address] Dr. Yogi Naidu CORRECTED WBC Normal 4.0-11.0 [facility] Comment on above: Performed By: #### C MP, MG, PHOS, GGT #### [facility] [address] [place] [address] Dr. Yogi Naidu EOS # 0.10 103/ul Normal 0.00-0.70 [facility] Comment on above: Performed By: #### C MP, MG, PHOS, GGT #### [facility] [address] [place] [address] Dr. Yogi Naidu EOS% 2.0 % Normal 0.9-7.0 [facility] Comment on above: Performed By: #### C MP, MG, PHOS, GGT #### [facility] [address] [place] [address] Dr. Yogi Naidu HCT 42.9 % Normal 42.0-54.0 [facility] Comment on above: Performed By: #### C MP, MG, PHOS, GGT #### [facility] [address] [place] [address] Dr. Yogi Naidu HGB 14.6 g/dl Normal 14.0-18.0 [facility] Comment on above: Performed By: #### C MP, MG, PHOS, GGT #### [facility] [address] [place] [address] Dr. Yogi Naidu LYMPHM # 0.56 103/ul Critically low 1.20-3.80 [facility] Comment on above: Performed By: #### C MP, MG, PHOS, GGT #### [facility] [address] [place] [address] Dr. Yogi Naidu LYMPHM% 11.0 % Critically low 20.5-60.0 [facility] Comment on above: Performed By: #### C MP, MG, PHOS, GGT #### [facility] [address] [place] [address] Dr. Yogi Naidu MCH 30.8 pg Normal 25.9-34.0 [facility] Comment on above: Performed By: #### C MP, MG, PHOS, GGT #### [facility] [address] [place] [address] Dr. Yogi Naidu MCHC 34.0 g/dl Normal 29.9-35.2 [facility] Comment on above: Performed By: #### C MP, MG, PHOS, GGT #### [facility] [address] [place] [address] Dr. Yogi Naidu MCV 90.5 fL Normal 80.0-94.0 [facility] Comment on above: Performed By: #### C MP, MG, PHOS, GGT #### [facility] [address] [place] [address] Dr. Yogi Naidu METAMYELOCYTE # Normal [facility] Comment on above: Performed By: #### C MP, MG, PHOS, GGT #### [facility] [address] [place] [address] Dr. Yogi Naidu METAMYELOCYTE % Normal [facility] Comment on above: Performed By: #### C MP, MG, PHOS, GGT #### [facility] [address] [place] [address] Dr. Yogi Naidu MONOM# 0.26 103/ul Critically low 0.30-0.80 [facility] Comment on above: Performed By: #### C MP, MG, PHOS, GGT #### [facility] [address] [place] [address] Dr. Yogi Naidu MONOM% 5.0 % Normal 1.7-12.0 [facility] Comment on above: Performed By: #### C MP, MG, PHOS, GGT #### [facility] [address] [place] [address] Dr. Yogi Naidu MPV 9.8 fL Normal 9.5-13.5 [facility] Comment on above: Performed By: #### C MP, MG, PHOS, GGT #### [facility] [address] [place] [address] Dr. Yogi Naidu MYELOCYTE # Normal [facility] Comment on above: Performed By: #### C MP, MG, PHOS, GGT #### [facility] [address] [address] [address] Yogi Naidu MYELOCYTE % Normal [facility] Comment on above: Performed By: #### C MP, MG, PHOS, GGT #### [facility] [address] [address] [address] Yogi Naidu NRBC Normal [facility] Comment on above: Performed By: #### C MP, MG, PHOS, GGT #### [facility] [address] [address] [address] Yogi Naidu PLT 172 103/ul Normal 150-450 [facility] Comment on above: Performed By: #### C MP, MG, PHOS, GGT #### [facility] [address] [address] [address] Yogi Naidu POIKILOCYTOSIS 1+ Normal [facility] Comment on above: Performed By: #### C MP, MG, PHOS, GGT #### [facility] [address] [address] [address] Yogi Naidu RBC 4.74 106/ul Normal 4.70-6.10 [facility] Comment on above: Performed By: #### C MP, MG, PHOS, GGT #### [facility] [address] [address] [address] Yogi Naidu RDW 13.9 % Normal 11.0-15.0 [facility] Comment on above: Performed By: #### C MP, MG, PHOS, GGT #### [facility] [address] [address] [address] Yogi Naidu SEG # 4.18 103/ul Normal 1.40-6.50 [facility] Comment on above: Performed By: #### C MP, MG, PHOS, GGT #### [facility] [address] [address] [address] Yogi Naidu SEG % 82.0 % Critically high 43.0-75.0 [facility] Comment on above: Performed By: #### C MP, MG, PHOS, GGT #### [facility] [address] [address] [address] Yogi Naidu TEAR DROP CELLS 1+ Normal [facility] Comment on above: Performed By: #### C MP, MG, PHOS, GGT #### [facility] [address] [address] [address] Yogi Naidu WBC 5.1 103/ul Normal 4.0-11.0 [facility] Comment on above: Performed By: #### C MP, MG, PHOS, GGT #### [facility] [address] [address] [address] Yogi Naidu GGTon 01-13-2022 Gamma glutamyl transferase [Catalytic activity/Vol] 35 U/L Normal 15-85 [facility] Comment on above: Performed By: #### B OX #### [facility] [address] [place] [address] Dr. Yogi Naidu LIPID PROFILEon 01-13-2022 CHOL-HDL RATIO NORM SEE BELOW Normal [facility] Comment on above: Result Comment: 3.3 - 4.4 LOW RISK 4.4 - 7.1 AVERAGE RISK 7.1 - 11.0 MODERATE RISK >11.0 HIGH RISK Performed By: #### B OX #### [facility] [address] [place] [address] Dr. Yogi Naidu Cholesterol [Mass/Vol] 183 mg/dL Normal <=200 Th [facility] Comment on above: Performed By: #### B OX #### [facility] [address] [address] [address] Yogi Naidu Cholesterol in HDL [Mass/Vol] 45 mg/dL Normal 40-60 [facility] Comment on above: Performed By: #### B OX #### [facility] [address] [address] [address] Yogi Naidu Cholesterol in LDL [Mass/Vol] 127.2 mg/dL Normal [facility] Comment on above: Performed By: #### B OX #### [facility] [address] [place] [address] Dr. Yogi Naidu Cholesterol.total/Choles terol in HDL [Mass ratio] 4.1 {ratio} Normal [facility] Comment on above: Performed By: #### B OX #### [facility] [address] [place] [address] Dr. Yogi Naidu HDL NORMAL > or = 60 mg/dl - LO W CARDIOVASCULAR RISK <40 mg/dl - HIGH CARDIOVASCULAR RISK Normal [facility] Comment on above: Performed By: #### B OX #### [facility] [address] [place] [address] Dr. Yogi Naidu LDL CALC NORMAL SEE BELOW Normal [facility] Comment on above: Result Comment: <100 mg/dl OPTIMAL 100 - 129 mg/dl NEAR OR ABOVE OPTIMAL 130 - 159 mg/dl BORDERLINE HIGH 160 - 189 mg/dl HIGH >190 mg/dl VERY HIGH Performed By: #### B OX #### [facility] [address] [place] [address] Dr. Yogi Naidu Triglyceride [Mass/Vol] 54 mg/dL Normal <=150 [facility] Comment on above: Performed By: #### B OX #### [facility] [address] [place] [address] Dr. Yogi Naidu VLDL CALC 10.8 mg/dL Normal [facility] Comment on above: Performed By: #### B OX #### [facility] [address] [place] [address] Dr. Yogi Naidu MAGNESIUMon 01-13-2022 Magnesium [Mass/Vol] 1.7 mg/dL Critically low 1.8-2.4 [facility] Comment on above: Performed By: #### B OX #### [facility] [address] [place] [address] Dr. Yogi Naidu PHOSPHORUSon 01-13-2022 Phosphate [Mass/Vol] 2.8 mg/dL Normal 2.6-4.7 [facility] Comment on above: Performed By: #### B OX #### [facility] [address] [place] [address] Dr. Yogi Naidu PROF 14(COMP METB)on 022 Albumin [Mass/Vol] 3.9 g/dL Normal 3.4-5.0 [facility] Comment on above: Performed By: #### B OX #### [facility] [address] [place] [address] Dr. Yogi Naidu Albumin/Globulin [Mass ratio] 1.7 {ratio} Normal [facility] Comment on above: Performed By: #### B OX #### [facility] [address] [place] [address] Dr. Yogi Naidu ALP [Catalytic activity/Vol] 68 U/L Normal 46-116 [facility] Comment on above: Performed By: #### B OX #### [facility] [address] [place] [address] Dr. Yogi Naidu ALT [Catalytic activity/Vol] 14 U/L Critically low 16-63 [facility] Comment on above: Performed By: #### B OX #### [facility] [address] [place] [address] Dr. Yogi Naidu Anion gap [Moles/Vol] 11.9 mmol/L Normal [facility] Comment on above: Performed By: #### B OX #### [facility] [address] [place] [address] Dr. Yogi Naidu AST [Catalytic activity/Vol] 13 U/L Critically low 15-37 [facility] Comment on above: Performed By: #### B OX #### [facility] [address] [place] [address] Dr. Yogi Naidu Bilirubin [Mass/Vol] 0.5 mg/dL Normal 0.2-1.0 [facility] Comment on above: Performed By: #### B OX #### [facility] [address] [place] [address] Dr. Yogi Naidu Calcium [Mass/Vol] 8.7 mg/dL Normal 8.5-10.1 [facility] Comment on above: Performed By: #### B OX #### [facility] [address] [place] [address] Dr. Yogi Naidu Chloride [Moles/Vol] 110 mmol/L Critically high 98-107 [facility] Comment on above: Performed By: #### B OX #### [facility] [address] [place] [address] Dr. Yogi Naidu CO2 [Moles/Vol] 26.3 mmol/L Normal 21.0-32.0 [facility] Comment on above: Performed By: #### B OX #### [facility] [address] [place] [address] Dr. Yogi Naidu Creatinine [Mass/Vol] 1.24 mg/dL Normal 0.70-1.30 [facility] Comment on above: Performed By: #### B OX #### [facility] [address] [place] [address] Dr. Yogi Naidu EGFR-AF SCOTTISH >60 Normal >=60 [facility] Comment on above: Performed By: #### B OX #### [facility] [address] [place] [address] Dr. Yogi Naidu EGFR-NON AF SCOTTISH 58 mL/min/1.73m2 Critically low >=60 [facility] Comment on above: Performed By: #### B OX #### [facility] [address] [place] [address] Dr. Yogi Naidu Globulin (S) [Mass/Vol] 2.3 g/dL Normal [facility] Comment on above: Performed By: #### B OX #### [facility] [address] [place] [address] Dr. Yogi Naidu Glucose [Mass/Vol] 103 mg/dL Normal 74-106 [facility] Comment on above: Performed By: #### B OX #### [facility] [address] [place] [address] Dr. Yogi Naidu Potassium [Moles/Vol] 4.2 mmol/L Normal 3.5-5.1 [facility] Comment on above: Performed By: #### B OX #### [facility] [address] [place] [address] Dr. Yogi Naidu Protein [Mass/Vol] 6.2 g/dL Critically low 6.4-8.2 [facility] Comment on above: Performed By: #### B OX #### [facility] [address] [place] [address] Dr. Yogi Naidu Sodium [Moles/Vol] 144 mmol/L Normal 136-145 [facility] Comment on above: Performed By: #### B OX #### [facility] [address] [place] [address] Dr. Yogi Naidu Urea nitrogen [Mass/Vol] 26.0 mg/dL Critically high 7.0-18 .0 [facility] Comment on above: Performed By: #### B OX #### [facility] [address] [place] [address] Dr. Yogi Naidu Urea nitrogen/Creatinine [Mass ratio] 21.0 mg/mg Normal [facility] Comment on above: Performed By: #### B OX #### [facility] [address] [place] [address] Dr. Yogi Naidu PROTIMEon 01-13-2022 INR Coag (PPP) [Relative time] 1.06 {INR} Normal [facility] Comment on above: Performed By: #### C MP, MG, PHOS, GGT #### [facility] [address] [place] [address] Dr. Yogi Naidu INR GUIDELINES SEE BELOW Normal [facility] Comment on above: Result Comment: LENI RED INR: 2.0 - 3.0 CONDITIONS NOT LISTED BELOW 2.5 - 3.5 FOR PROSTHETIC HEART VALVE REPLACEMENT 2.5 - 3.5 RECURRENT THROMBOSIS Performed By: #### C MP, MG, PHOS, GGT #### [facility] [address] [place] [address] Dr. Yogi Naidu PT Coag (PPP) [Time] 11.4 s Normal 9.0-11.6 [facility] Comment on above: Performed By: #### C MP, MG, PHOS, GGT #### [facility] [address] [place] [address] Dr. Yogi Naidu PTTon 01-13-2022 aPTT Coag (Bld) [Time] 28.7 s Normal 22.3-36.2 Th [facility] Comment on above: Performed By: #### C MP, MG, PHOS, GGT #### [facility] [address] [place] [address] Dr. Yogi Naidu BOX TEST SENT OUTon 12-18-19 SENT TO REF LAB 12/17/2021 Normal [facility] Comment on above: Performed By: #### C MP, MG, PHOS, GGT #### [facility] [address] [place] [address] Dr. Yogi Naidu CBC AUTO DIFFon 12-17-2021 BASO # 0.1 103/ul Normal 0.0-0.1 [facility] Comment on above: Performed By: #### C BC #### [facility] [address] [place] [address] Dr. Yogi Naidu Basophils/100 WBC (Bld) 1.1 % Normal 0.2-2.0 [facility] Comment on above: Performed By: #### C BC #### [facility] [address] [place] [address] Dr. Yogi Naiud EO # 0.2 103/ul Normal 0.0-0.7 [facility] Comment on above: Performed By: #### C BC #### [facility] [address] [place] [address] Dr. Yogi Naidu Eosinophils/100 WBC (Bld) 4.1 % Normal 0.9-7.0 [facility] Comment on above: Performed By: #### C BC #### [facility] [address] [place] [address] Dr. Yogi Naidu Erythrocyte distribution width (RBC) [Ratio] 13.7 % Normal 11.0-15.0 [facility] Comment on above: Performed By: #### C BC #### [facility] [address] [place] [address] Dr. Yogi Naidu Hematocrit (Bld) [Volume fraction] 45.6 % Normal 42.0-54.0 [facility] Comment on above: Performed By: #### C BC #### [facility] [address] [place] [address] Dr. Yogi Naidu Hemoglobin (Bld) [Mass/Vol] 15.1 g/dL Normal 14.0-18.0 [facility] Comment on above: Performed By: #### C BC #### [facility] [address] [place] [address] Dr. Yogi Naidu IG # 0.01 10e3/ul Normal 0.00-0.03 [facility] Comment on above: Performed By: #### C BC #### [facility] [address] [place] [address] Dr. Yogi Naidu IG % 0.2 % Normal 0.0-0.5 [facility] Comment on above: Performed By: #### C BC #### [facility] [address] [place] [address] Dr. Yogi Naidu LYMPH # 0.7 103/ul Critically low 1.2-3.8 [facility] Comment on above: Performed By: #### C BC #### [facility] [address] [place] [address] Dr. Yogi Naidu Lymphocytes/100 WBC (Bld) 12.4 % Critically low 20.5-60.0 [facility] Comment on above: Performed By: #### C BC #### [facility] [address] [place] [address] Dr. Yogi Naidu MANUAL DIFF REQ NO Normal [facility] Comment on above: Performed By: #### C BC #### [facility] [address] [place] [address] Dr. Yogi Naidu MCH (RBC) [Entitic mass] 30.1 pg Normal 25.9-34.0 [facility] Comment on above: Performed By: #### C BC #### [facility] [address] [place] [address] Dr. Yogi Naidu MCHC (RBC) [Mass/Vol] 33.1 g/dL Normal 29.9-35.2 [facility] Comment on above: Performed By: #### C BC #### [facility] [address] [place] [address] Dr. Yogi Naidu MCV (RBC) [Entitic vol] 90.8 fL Normal 80.0-94.0 [facility] Comment on above: Performed By: #### C BC #### [facility] [address] [place] [address] Dr. Yogi Naidu MONO # 0.3 103/ul Normal 0.3-0.8 [facility] Comment on above: Performed By: #### C BC #### [facility] [address] [place] [address] Dr. Yogi Naidu Monocytes/100 WBC (Bld) 5.5 % Normal 1.7-12.0 [facility] Comment on above: Performed By: #### C BC #### [facility] [address] [place] [address] Dr. Yogi Naidu NEUT # 4.4 103/ul Normal 1.4-6.5 [facility] Comment on above: Performed By: #### C BC #### [facility] [address] [place] [address] Dr. Yogi Naidu Neutrophils/100 WBC (Bld) 76.7 % Critically high 43.0-75.0 [facility] Comment on above: Performed By: #### C BC #### [facility] [address] [place] [address] Dr. Yogi Naidu Platelet mean volume (Bld) [Entitic vol] 9.5 fL Normal 9.5-13.5 [facility] Comment on above: Performed By: #### C BC #### [facility] [address] [place] [address] Dr. Yogi Naidu PLT 157 103/ul Normal 150-450 [facility] Comment on above: Performed By: #### C BC #### [facility] [address] [place] [address] Dr. Yoig Naidu RBC 5.02 106/ul Normal 4.70-6.10 [facility] Comment on above: Performed By: #### C BC #### [facility] [address] [place] [address] Dr. Yogi Naidu WBC 5.7 103/ul Normal 4.0-11.0 [facility] Comment on above: Performed By: #### C BC #### [facility] [address] [place] [address] Dr. Yogi Naidu GGTon 12-17-2021 Gamma glutamyl transferase [Catalytic activity/Vol] 35 U/L Normal 15-85 [facility] Comment on above: Performed By: #### C MP, MG, PHOS, GGT #### [facility] [address] [place] [address] Dr. Yogi Naidu MAGNESIUMon 12-17-2021 Magnesium [Mass/Vol] 1.6 mg/dL Critically low 1.8-2.4 [facility] Comment on above: Performed By: #### C MP, MG, PHOS, GGT #### [facility] [address] [place] [address] Dr. Yogi Naidu PHOSPHORUSon 12-17-2021 Phosphate [Mass/Vol] 2.9 mg/dL Normal 2.6-4.7 [facility] Comment on above: Performed By: #### C MP, MG, PHOS, GGT #### [facility] [address] [place] [address] Dr. Yogi Naidu PROF 14(COMP METB)on 022 Albumin [Mass/Vol] 3.8 g/dL Normal 3.4-5.0 [facility] Comment on above: Performed By: #### C MP, MG, PHOS, GGT #### [facility] [address] [place] [address] Dr. Yogi Naidu Albumin/Globulin [Mass ratio] 1.6 {ratio} Normal [facility] Comment on above: Performed By: #### C MP, MG, PHOS, GGT #### [facility] [address] [place] [address] Dr. Yogi Naidu ALP [Catalytic activity/Vol] 74 U/L Normal 46-116 [facility] Comment on above: Performed By: #### C MP, MG, PHOS, GGT #### [facility] [address] [place] [address] Dr. Yogi Naidu ALT [Catalytic activity/Vol] 21 U/L Normal 16-63 [facility] Comment on above: Performed By: #### C MP, MG, PHOS, GGT #### [facility] [address] [place] [address] Dr. Yogi Naidu Anion gap [Moles/Vol] 13.2 mmol/L Normal Th e [facility] Comment on above: Performed By: #### C MP, MG, PHOS, GGT #### [facility] [address] [place] [address] Dr. Yogi Naidu AST [Catalytic activity/Vol] 14 U/L Critically low 15-37 [facility] Comment on above: Performed By: #### C MP, MG, PHOS, GGT #### [facility] [address] [place] [address] Dr. Yogi Naidu Bilirubin [Mass/Vol] 0.6 mg/dL Normal 0.2-1.0 [facility] Comment on above: Performed By: #### C MP, MG, PHOS, GGT #### [facility] [address] [place] [address] Dr. Yogi Naidu Calcium [Mass/Vol] 8.5 mg/dL Normal 8.5-10.1 [facility] Comment on above: Performed By: #### C MP, MG, PHOS, GGT #### [facility] [address] [place] [address] Dr. Yogi Naidu Chloride [Moles/Vol] 109 mmol/L Critically high 98-107 [facility] Comment on above: Performed By: #### C MP, MG, PHOS, GGT #### [facility] [address] [place] [address] Dr. Yogi Naidu CO2 [Moles/Vol] 24.9 mmol/L Normal 21.0-32.0 [facility] Comment on above: Performed By: #### C MP, MG, PHOS, GGT #### [facility] [address] [place] [address] Dr. Yogi Naidu Creatinine [Mass/Vol] 1.22 mg/dL Normal 0.70-1.30 [facility] Comment on above: Performed By: #### C MP, MG, PHOS, GGT #### [facility] [address] [place] [address] Dr. Yogi Naidu EGFR-AF SCOTTISH >60 Normal >=60 [facility] Comment on above: Performed By: #### C MP, MG, PHOS, GGT #### [facility] [address] [place] [address] Dr. Yogi Naidu EGFR-NON AF SCOTTISH 59 mL/min/1.73m2 Critically low >=60 [facility] Comment on above: Performed By: #### C MP, MG, PHOS, GGT #### [facility] [address] [place] [address] Dr. Yogi Naidu Globulin (S) [Mass/Vol] 2.4 g/dL Normal [facility] Comment on above: Performed By: #### C MP, MG, PHOS, GGT #### [facility] [address] [place] [address] Dr. Yogi Naidu Glucose [Mass/Vol] 94 mg/dL Normal 74-106 [facility] Comment on above: Performed By: #### C MP, MG, PHOS, GGT #### [facility] [address] [place] [address] Dr. Yogi Naidu Potassium [Moles/Vol] 4.1 mmol/L Normal 3.5-5.1 [facility] Comment on above: Performed By: #### C MP, MG, PHOS, GGT #### [facility] [address] [place] [address] Dr. Yogi Naidu Protein [Mass/Vol] 6.2 g/dL Critically low 6.4-8.2 [facility] Comment on above: Performed By: #### C MP, MG, PHOS, GGT #### [facility] [address] [place] [address] Dr. Yogi Naidu Sodium [Moles/Vol] 143 mmol/L Normal 136-145 [facility] Comment on above: Performed By: #### C MP, MG, PHOS, GGT #### [facility] [address] [place] [address] Dr. Yogi Naidu Urea nitrogen [Mass/Vol] 21.0 mg/dL Critically high 7.0-18 .0 [facility] Comment on above: Performed By: #### C MP, MG, PHOS, GGT #### [facility] [address] [place] [address] Dr. Yogi Naidu Urea nitrogen/Creatinine [Mass ratio] 17.2 mg/mg Normal [facility] Comment on above: Performed By: #### C MP, MG, PHOS, GGT #### [facility] [address] [place] [address] Dr. Yogi Naidu BOX TEST SENT OUTon 11-22-19 22 SENT TO REF LAB 11/21/2021 Normal [facility] Comment on above: Performed By: #### C MP, MG, PHOS, GGT #### [facility] [address] [place] [address] Dr. Yogi Naidu CBC W MANUAL DIFFon 11-22-19 ATYPICAL LYMPH # Normal [facility] Comment on above: Performed By: #### C MP, MG, PHOS, GGT #### [facility] [address] [place] [address] Dr. Yogi Naidu ATYPICAL LYMPH % Normal [facility] Comment on above: Performed By: #### C MP, MG, PHOS, GGT #### [facility] [address] [place] [address] Dr. Yogi Naidu BAND # 0.1 103/ul Normal 0.0-0.3 [facility] Comment on above: Performed By: #### C MP, MG, PHOS, GGT #### [facility] [address] [place] [address] Dr. Yogi Naidu BAND % 2 % Normal 0-5 [facility] Comment on above: Performed By: #### C MP, MG, PHOS, GGT #### [facility] [address] [place] [address] Dr. Yogi Naidu BASOM # 0.00 103/ul Normal 0.00-0.10 [facility] Comment on above: Performed By: #### C MP, MG, PHOS, GGT #### [facility] [address] [place] [address] Dr. Yogi Naidu BASOM % 0.0 % Critically low 0.2-2.0 [facility] Comment on above: Performed By: #### C MP, MG, PHOS, GGT #### [facility] [address] [place] [address] Dr. Yogi Naidu BLAST # Normal [facility] Comment on above: Performed By: #### C MP, MG, PHOS, GGT #### [facility] [address] [place] [address] Dr. Yogi Naidu BLAST % Normal [facility] Comment on above: Performed By: #### C MP, MG, PHOS, GGT #### [facility] [address] [place] [address] Dr. Yogi Naidu CORRECTED WBC Normal 4.0-11.0 [facility] Comment on above: Performed By: #### C MP, MG, PHOS, GGT #### [facility] [address] [place] [address] Dr. Yogi Naidu EOS # 0.19 103/ul Normal 0.00-0.70 [facility] Comment on above: Performed By: #### C MP, MG, PHOS, GGT #### [facility] [address] [place] [address] Dr. Yogi Naidu EOS% 3.0 % Normal 0.9-7.0 [facility] Comment on above: Performed By: #### C MP, MG, PHOS, GGT #### [facility] [address] [place] [address] Dr. Yogi Naidu HCT 46.5 % Normal 42.0-54.0 [facility] Comment on above: Performed By: #### C MP, MG, PHOS, GGT #### [facility] [address] [place] [address] Dr. Yogi Naidu HGB 15.5 g/dl Normal 14.0-18.0 [facility] Comment on above: Performed By: #### C MP, MG, PHOS, GGT #### [facility] [address] [place] [address] Dr. Yogi Naidu LYMPHM # 0.50 103/ul Critically low 1.20-3.80 [facility] Comment on above: Performed By: #### C MP, MG, PHOS, GGT #### [facility] [address] [address] [address] Yogi Naidu LYMPHM% 8.0 % Critically low 20.5-60.0 [facility] Comment on above: Performed By: #### C MP, MG, PHOS, GGT #### [facility] [address] [place] [address] Dr. Yogi Naidu MCH 30.2 pg Normal 25.9-34.0 [facility] Comment on above: Performed By: #### C MP, MG, PHOS, GGT #### [facility] [address] [place] [address] Dr. Yogi Naidu MCHC 33.3 g/dl Normal 29.9-35.2 [facility] Comment on above: Performed By: #### C MP, MG, PHOS, GGT #### [facility] [address] [place] [address] Dr. Yogi Naidu MCV 90.5 fL Normal 80.0-94.0 [facility] Comment on above: Performed By: #### C MP, MG, PHOS, GGT #### [facility] [address] [place] [address] Dr. Yogi Naidu METAMYELOCYTE # Normal [facility] Comment on above: Performed By: #### C MP, MG, PHOS, GGT #### [facility] [address] [place] [address] Dr. Yogi Naidu METAMYELOCYTE % Normal [facility] Comment on above: Performed By: #### C MP, MG, PHOS, GGT #### [facility] [address] [place] [address] Dr. Yogi Naidu MONOM# 0.06 103/ul Critically low 0.30-0.80 [facility] Comment on above: Performed By: #### C MP, MG, PHOS, GGT #### [facility] [address] [place] [address] Dr. Yogi Naidu MONOM% 1.0 % Critically low 1.7-12.0 [facility] Comment on above: Performed By: #### C MP, MG, PHOS, GGT #### [facility] [address] [address] [address] Yogi Naidu MPV 9.6 fL Normal 9.5-13.5 [facility] Comment on above: Performed By: #### C MP, MG, PHOS, GGT #### [facility] [address] [place] [address] Dr. Yogi Naidu MYELOCYTE # Normal [facility] Comment on above: Performed By: #### C MP, MG, PHOS, GGT #### [facility] [address] [address] [address] Yogi Naidu MYELOCYTE % Normal [facility] Comment on above: Performed By: #### C MP, MG, PHOS, GGT #### [facility] [address] [place] [address] Dr. Yogi Naidu NRBC Normal [facility] Comment on above: Performed By: #### C MP, MG, PHOS, GGT #### [facility] [address] [place] [address] Dr. Yogi Naidu PLT 185 103/ul Normal 150-450 [facility] Comment on above: Performed By: #### C MP, MG, PHOS, GGT #### [facility] [address] [place] [address] Dr. Yogi Naidu RBC 5.14 106/ul Normal 4.70-6.10 [facility] Comment on above: Performed By: #### C MP, MG, PHOS, GGT #### [facility] [address] [place] [address] Dr. Yogi Naidu RDW 14.0 % Normal 11.0-15.0 [facility] Comment on above: Performed By: #### C MP, MG, PHOS, GGT #### [facility] [address] [place] [address] Dr. Yogi Naidu SEG # 5.33 103/ul Normal 1.40-6.50 [facility] Comment on above: Performed By: #### C MP, MG, PHOS, GGT #### [facility] [address] [place] [address] Dr. Yogi Naidu SEG % 86.0 % Critically high 43.0-75.0 [facility] Comment on above: Performed By: #### C MP, MG, PHOS, GGT #### [facility] [address] [place] [address] Dr. Yoig Naidu WBC 6.2 103/ul Normal 4.0-11.0 [facility] Comment on above: Performed By: #### C MP, MG, PHOS, GGT #### [facility] [address] [place] [address] Dr. Yogi Naidu GGTon 11-21-2021 Gamma glutamyl transferase [Catalytic activity/Vol] 35 U/L Normal 15-85 [facility] Comment on above: Performed By: #### C MP, MG, PHOS, GGT #### [facility] [address] [place] [address] Dr. Yogi Naidu MAGNESIUMon 11-21-2021 Magnesium [Mass/Vol] 1.9 mg/dL Normal 1.8-2.4 [facility] Comment on above: Performed By: #### C MP, MG, PHOS, GGT #### [facility] [address] [place] [address] Dr. Yogi Naidu PHOSPHORUSon 11-21-2021 Phosphate [Mass/Vol] 3.0 mg/dL Normal 2.6-4.7 [facility] Comment on above: Performed By: #### C MP, MG, PHOS, GGT #### [facility] [address] [place] [address] Dr. Yogi Naidu PROF 14(COMP METB)on 022 Albumin [Mass/Vol] 3.8 g/dL Normal 3.4-5.0 [facility] Comment on above: Performed By: #### C MP, MG, PHOS, GGT #### [facility] [address] [place] [address] Dr. Yogi Naidu Albumin/Globulin [Mass ratio] 1.7 {ratio} Normal [facility] Comment on above: Performed By: #### C MP, MG, PHOS, GGT #### [facility] [address] [place] [address] Dr. Yogi Naidu ALP [Catalytic activity/Vol] 80 U/L Normal 46-116 [facility] Comment on above: Performed By: #### C MP, MG, PHOS, GGT #### [facility] [address] [place] [address] Dr. Yogi Naidu ALT [Catalytic activity/Vol] 21 U/L Normal 16-63 [facility] Comment on above: Performed By: #### C MP, MG, PHOS, GGT #### [facility] [address] [place] [address] Dr. Yogi Naidu Anion gap [Moles/Vol] 13.7 mmol/L Normal Th e [facility] Comment on above: Performed By: #### C MP, MG, PHOS, GGT #### [facility] [address] [place] [address] Dr. Yogi Naidu AST [Catalytic activity/Vol] 15 U/L Normal 15-37 [facility] Comment on above: Performed By: #### C MP, MG, PHOS, GGT #### [facility] [address] [place] [address] Dr. Yogi Naidu Bilirubin [Mass/Vol] 0.6 mg/dL Normal 0.2-1.0 [facility] Comment on above: Performed By: #### C MP, MG, PHOS, GGT #### [facility] [address] [place] [address] Dr. Yogi Naidu Calcium [Mass/Vol] 8.9 mg/dL Normal 8.5-10.1 [facility] Comment on above: Performed By: #### C MP, MG, PHOS, GGT #### [facility] [address] [place] [address] Dr. Yogi Naidu Chloride [Moles/Vol] 107 mmol/L Normal 98-107 [facility] Comment on above: Performed By: #### C MP, MG, PHOS, GGT #### [facility] [address] [place] [address] Dr. Yogi Naidu CO2 [Moles/Vol] 25.4 mmol/L Normal 21.0-32.0 [facility] Comment on above: Performed By: #### C MP, MG, PHOS, GGT #### [facility] [address] [place] [address] Dr. Yogi Naidu Creatinine [Mass/Vol] 1.35 mg/dL Critically high 0.70-1.30 [facility] Comment on above: Performed By: #### C MP, MG, PHOS, GGT #### [facility] [address] [place] [address] Dr. Yogi Naidu EGFR-AF SCOTTISH >60 Normal >=60 [facility] Comment on above: Performed By: #### C MP, MG, PHOS, GGT #### [facility] [address] [place] [address] Dr. Yogi Naidu EGFR-NON AF SCOTTISH 52 mL/min/1.73m2 Critically low >=60 [facility] Comment on above: Performed By: #### C MP, MG, PHOS, GGT #### [facility] [address] [place] [address] Dr. Yogi Naidu Globulin (S) [Mass/Vol] 2.3 g/dL Normal [facility] Comment on above: Performed By: #### C MP, MG, PHOS, GGT #### [facility] [address] [place] [address] Dr. Yogi Naidu Glucose [Mass/Vol] 93 mg/dL Normal 74-106 [facility] Comment on above: Performed By: #### C MP, MG, PHOS, GGT #### [facility] [address] [place] [address] Dr. Yogi Naidu Potassium [Moles/Vol] 4.1 mmol/L Normal 3.5-5.1 [facility] Comment on above: Performed By: #### C MP, MG, PHOS, GGT #### [facility] [address] [place] [address] Dr. Yogi Naidu Protein [Mass/Vol] 6.1 g/dL Critically low 6.4-8.2 Th [facility] Comment on above: Performed By: #### C MP, MG, PHOS, GGT #### [facility] [address] [address] [address] Yogi Naidu Sodium [Moles/Vol] 142 mmol/L Normal 136-145 [facility] Comment on above: Performed By: #### C MP, MG, PHOS, GGT #### [facility] [address] [address] [address] Yogi Naidu Urea nitrogen [Mass/Vol] 30.0 mg/dL Critically high 7.0-18 .0 [facility] Comment on above: Performed By: #### C MP, MG, PHOS, GGT #### [facility] [address] [address] [address] Yogi Naidu Urea nitrogen/Creatinine [Mass ratio] 22.2 mg/mg Normal [facility] Comment on above: Performed By: #### C MP, MG, PHOS, GGT #### [facility] [address] [address] CHEST W IVCONon 0 CT CHEST W IVCON * * *Final Report* * * DATE OF EXAM: Apr 16 2020 12:22PM [facility] 0539 - CT CHEST W IVCON [...] the abdomen and pelvis are dictated separately. Disc Recordist (topogram) images: No additional findings. - IMPRESSION: Stable exam with no compelling evidence of intrathoracic metastatic disease. Small nonspecific (<6 mm) pulmonary nodules are unchanged, most of these nodules are unchanged since 2012 and are likely benign. Jewelry Mold Maker[facility] Transcribe Date/Time: Apr 16 2020 12:52P Dictated by : ESDRAS SALAZAR MD This examination was interpreted and the report reviewed and electronically signed by: ESDRAS SALAZAR MD on Apr 16 2020 1:05PM EST [id number] [facility] CT LIVER/PELVIS WO/W IVCONon 04-16-2020 CT LIVER/PELVIS WO/W IVCON * * *Final Report* * * DATE OF EXAM: Apr 16 2020 12:22PM [facility] 0551 - CT LIVER/PELVIS WO/W IVCON [...] subcentimeter hypervascular lesion in the pancreatic head. Jewelry Mold Maker: [facility] Transcribe Date/Time: Apr 16 2020 12:37P Dictated by : HAIR GUTIÉRREZ MD This examination was interpreted and the report reviewed and electronically signed by: HAIR GUTIÉRREZ MD on Apr 16 2020 12:47PM EST [id number] Normal [facility] NURSING PROGon 04-16-2020 NURSING PROG HNO ID: [id number] Author: Latisha Boles (Rn) NIKKI Hernandez Service: Nursing Author Type: Registered Nurse [...] DATE: April 16, 2020 TIME: 12:00 PM [facility] [place]-[facility]-[place] PROGRESS HNO ID: [id number] Author: Kasey Soto (Rt) Service: Radiology Author Type: Residential Designer Type: Progress Notes Filed: 04/16/2020 12:13 PM [...] RT Jonnie April 16, 2020 12:05 PM [facility] 04-10-2020 CNPN Telephone (AVXRPR) WHIT,SUSAN Cox ([id number]) 1950 M TRN Date Time Provider Department 04/10/20 REBECA ACEVEDO (RN) AVXRPR During your visit today, we recorded [...] Encounter Status:Closed by REBECA ACEVEDO on 04/10/20 [facility] Vital Signs Date Time Vital Sign Value Performing Clinician Facility 08-13-2023 08:43-0500 Blood Pressure Location [facility] 08-13-2023 08:43-0500 Diastolic blood pressure 84 mm[Hg] [facility] 08-13-2023 08:43-0500 Systolic blood pressure 132 mm[Hg] [facility] 05-27-2023 09:51-0500 Blood Pressure Location [facility] 05-27-2023 09:51-0500 Diastolic blood pressure 83 mm[Hg] [facility] 05-27-2023 09:51-0500 Heart rate 92 /min [facility] 05-27-2023 09:51-0500 Respiratory rate 16 /min [facility] 05-27-2023 09:51-0500 Systolic blood pressure 131 mm[Hg] [facility] 04-10-2023 08:37-0400 Body height 182.9 cm Shea Brannon MD Work Phone: [facility] 04-10-2023 08:37-0400 Body mass index (BMI) [Ratio] 25.09 kg/m2 Shea Brannon MD Work Phone: [facility] 04-10-2023 08:37-0400 Body weight 83.92 kg Shea Brannon MD Work Phone: [facility] 04-10-2023 08:37-0400 Diastolic blood pressure 58 mm[Hg] Shea Brannon MD Work Phone: [facility] 04-10-2023 08:37-0400 Heart rate 62 /min Shea Brannon MD Work Phone: [facility] 04-10-2023 08:37-0400 Systolic blood pressure 106 mm[Hg] Shea Brannon MD Work Phone: [facility] 02-25-2023 09:09-0400 Blood Pressure Location [facility] 02-25-2023 09:09-0400 Diastolic blood pressure 68 mm[Hg] [facility] 02-25-2023 09:09-0400 Heart rate 68 /min [facility] 02-25-2023 09:09-0400 Respiratory rate 16 /min [facility] 02-25-2023 09:09-0400 Systolic blood pressure 130 mm[Hg] [facility] 01-01-2023 13:30-0400 Body height 182.88 cm Imad Asaad Other [employer] [facility] [employer] Other 01-01-2023 13:30-0400 Body mass index (BMI) [Ratio] 24.41 kg/m2 Imad Asaad Other [employer] Other 01-01-2023 13:30-0400 Body weight 81.65 kg Imad Asaad Other [employer] Other 01-01-2023 13:30-0400 Diastolic blood pressure 76 mm[Hg] Imad Asaad Other [employer] Other 01-01-2023 13:30-0400 Systolic blood pressure 146 mm[Hg] Imad Asaad Other [employer] Other 12-11-2022 13:53-0400 Diastolic blood pressure 78 mm[Hg] DO Elvira Bunting Work Phone: [facility] 12-11-2022 13:53-0400 Heart rate 74 /min DO Elvira Bunting Work Phone: [facility] 12-11-2022 13:53-0400 Respiratory rate 16 /min DO Elvira Bunting Work Phone: [facility] 12-11-2022 13:53-0400 SaO2% (BldA) [Mass fraction] 98 % DO Elvira Bunting Work Phone: [facility] 12-11-2022 13:53-0400 Systolic blood pressure 125 mm[Hg] DO Elvira Bunting Work Phone: [facility] 12-11-2022 11:28-0400 Body height 182.88 cm DO Elvira Bunting Work Phone: [facility] 12-11-2022 11:28-0400 Body weight 78.92 kg DO Elvira Bunting Work Phone: [facility] 11-11-2022 07:42-0400 Body height 185.42 cm DO Elvira Bunting Work Phone: [facility] 11-11-2022 07:42-0400 Body weight 104.32 kg DO Elvira Bunting Work Phone: [facility] 10-08-2022 08:08-0400 Blood Pressure Location [facility] 10-08-2022 08:08-0400 Diastolic blood pressure 96 mm[Hg] [facility] 10-08-2022 08:08-0400 Heart rate 98 /min [facility] 10-08-2022 08:08-0400 Systolic blood pressure 137 mm[Hg] [facility] 09-10-2022 09:34-0400 Blood Pressure Location [facility] [facility] 09-10-2022 09:34-0400 Diastolic blood pressure 89 mm[Hg] Sugey Lue [facility] 09-10-2022 09:34-0400 Heart rate 86 /min Sugey Lue [facility] 09-10-2022 09:34-0400 Respiratory rate 16 /min Sugey Lue [facility] 09-10-2022 09:34-0400 Systolic blood pressure 140 mm[Hg] Sugey Lue [facility] 03-27-2022 15:30-0400 Body height 182.88 cm Elvira R Bunting Work Phone: [facility] 250 DO Work Phone: 03-27-2022 15:30-0400 Body mass index (BMI) [Ratio] 26.72 kg/m2 Elvira R Bunting Work Phone: [facility] 250 DO Work Phone: 03-27-2022 15:30-0400 Body surface area Derived from formula 2.12 m2 Elvira R Bunting Work Phone: [facility] DO Work Phone: 03-27-2022 15:30-0400 Body weight 89.36 kg Elvira R Bunting Work Phone: [facility] 250 DO Work Phone: 03-27-2022 15:30-0400 Diastolic blood pressure 80 mm[Hg] Elvira R Bunting Work Phone: [facility] 250 DO Work Phone: 03-27-2022 15:30-0400 Heart rate 68 /min Elvira R Bunting Work Phone: [facility] DO Work Phone: 03-27-2022 15:30-0400 Systolic blood pressure 126 mm[Hg] Elvira R Bunting Work Phone: [facility] DO Work Phone: 12-24-2021 08:22-0400 Blood Pressure Location Mike Alves Jr. [facility] 12-24-2021 08:22-0400 Diastolic blood pressure 79 mm[Hg] Mike Alves Jr. [facility] 12-24-2021 08:22-0400 Heart rate 100 /min Mike Alves Jr. [facility] 12-24-2021 08:22-0400 Respiratory rate 16 /min Mike Alves Jr. [facility] 12-24-2021 08:22-0400 Systolic blood pressure 107 mm[Hg] Mike Alves Jr. [facility] Encounters Encounter Date Encounter Type Care Provider Facility Start: 02-17-2024 ambulatory Sugey Arteaga Facility:[facility] Start: 12-04-2023 E-mail encounter fro m caregiver Yulisa Lewis RN [facility] Start: 12-04-2023 Patient encounter procedure Yulisa Lewis RN [facility] Comment on above: Lab Reminder Start: 11-06-2023 End: 11-06-2023 ambulatory Elvira Bunting Facility:[facility] Start: 11-06-2023 End: 11-06-2023 ambulatory DO Elvira Bunting Work Phone: [facility] Work Phone: Start: 11-06-2023 End: 11-06-2023 Patient encounter procedure DO Elvira Bunting Work Phone: [facility] Start: 10-24-2023 Refill Nely Tony s LEATHER COVERER.ELECTRICAL LINE WORKER Work Phone: [facility] Comment on above: Refill Request Start: 08-17-2023 Refill Nely Tony s LEATHER COVERER.ELECTRICAL LINE WORKER Work Phone: [facility] Comment on above: Refill Request Start: 08-13-2023 End: 08-13-2023 Patient encounter procedure Sugey Arteaga [facility] Start: 08-07-2023 End: 08-07-2023 ambulatory Elvira Bunting Facility:[facility] Start: 07-27-2023 Telephone encounter Yulisa Lewis RN [facility] Comment on above: Insurance Authorizat ion (Tacrolimus ) Start: 05-27-2023 End: 05-28-2023 ambulatory Sugey Arteaga Facility:[facility] [place] Start: 05-27-2023 End: 05-27-2023 Patient encounter procedure Sugey Arteaga [facility] [place] Start: 05-04-2023 End: 05-04-2023 ambulatory Elvira Bunting Facility:[facility] Start: 05-04-2023 End: 05-04-2023 ambulatory DO Elvira Bunting Work Phone: [facility] Work Phone: Start: 05-04-2023 End: 05-04-2023 Patient encounter procedure DO Elvira Bunting Work Phone: [facility] Start: 04-10-2023 End: 04-10-2023 ambulatory [facility] Ambulatory Start: 04-10-2023 End: 04-10-2023 Office outpatient visit 15 minutes Shea Brannon MD Work Phone: [facility] Comment on above: Sick sinus syndrome (CMS/HCC) (Primary Dx); Essential hypertension; Mixed hyperlipidemia; Overweight with body mass index (BMI) of 26 to 26.9 in adult; Liver transplanted (CMS/HCC); Pacemaker Start: 02-25-2023 End: 02-26-2023 ambulatory Sugey Arteaga Facility:[facility] Start: 02-25-2023 End: 02-25-2023 Patient encounter procedure Sugey Arteaga [facility] Start: 02-23-2023 Telephone encounter Yulisa Lewis RN [facility] Comment on above: Patient Update; Orde rs (New standing lab order ) Start: 01-15-2023 End: 01-15-2023 ambulatory Imad Asaad Facility:[facility] Start: 01-15-2023 End: 01-15-2023 ambulatory DO Elvira Bunting Work Phone: [facility] Work Phone: Start: 01-15-2023 End: 01-15-2023 Patient encounter procedure DO Evlira Bunting Work Phone: [facility] Work Phone: Start: 01-01-2023 End: 01-01-2023 ambulatory Imad Asaad Other [employer] Other Start: 01-01-2023 Patient encounter procedure Imad Asaad [facility] Start: 12-11-2022 End: 12-11-2022 ambulatory Imad Asaad Facility:[facility] Start: 12-11-2022 End: 12-11-2022 Admission to same day surgery center DO Elvira Bunting Work Phone: [facility] Work Phone: Start: 12-08-2022 End: 12-08-2022 ambulatory Imad Asaad Other [employer] Other Start: 12-08-2022 Telephone encounter Imad Asaad [facility] Start: 11-28-2022 End: 11-28-2022 ambulatory Imad Asaad Other [employer] Other Start: 11-28-2022 Telephone encounter Imad Asaad [facility] Start: 11-12-2022 End: 11-12-2022 ambulatory Imad Asaad Other [facility] [employer] Other Start: 11-12-2022 Telephone encounter Imad Asaad [facility] Start: 11-11-[address] Elvira Schultz Facility:[id number] Start: 11-11-2022 End: 11-11-2022 ambulatory Elvira Schultz Facility:[facility] Start: 11-11-2022 End: 11-11-2022 ambulatory DO Elvira Bunting Work Phone: [facility] Work Phone: Start: 11-11-2022 End: 11-11-2022 Patient encounter procedure DO Elvira Bunting Work Phone: [facility] [place] Work Phone: Start: 11-06-2022 End: 11-06-2022 Patient encounter procedure DO Elvira Bunting Work Phone: [facility] [place] Work Phone: Start: 10-31-2022 End: 10-31-2022 Patient encounter procedure DO Elvira Bunting Work Phone: [facility] Start: 05-19-[address] Elvira Schultz Facility:[id number] Start: 10-20-2022 End: 10-21-[address] ELVIRA SCHULTZ Facility:[facility] Start: 10-09-[address] Elvira Schultz Facility:[id number] Start: 10-09-2022 End: 10-09-2022 ambulatory DO Felix Ruddymaggie Work Phone: [facility] Work Phone: Start: 10-09-2022 End: 10-09-2022 Patient encounter procedure DO Elvira Schultz Work Phone: [facility] Start: 10-08-2022 End: 10-09-2022 ambulatory Sugey Arteaga Facility:[facility] [place] Start: 10-08-2022 End: 10-08-2022 Patient encounter procedure Sugey Arteaga [facility] Start: 09-26-2022 End: 09-26-[address] ELVIRA SCHULTZ Facility:[facility] Start: 09-22-2022 End: 09-23-2022 ambulatory Sugey Arteaga Facility:[facility] Start: 09-22-2022 End: 09-22-2022 Patient encounter procedure Sugey Arteaga [facility] Start: 09-17-2022 End: 09-18-2022 ambulatory Kevin DE LA GARZA Facility:[facility] Start: 09-10-2022 End: 09-11-2022 ambulatory Sugey Arteaga Facility:[facility] [place] Start: 09-10-2022 End: 09-10-2022 Patient encounter procedure Sugey Arteaga [facility] Start: 09-03-2022 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 Elvira Schultz Facility:[id number] Start: 04-30-2022 End: 04-30-2022 ambulatory DO Elvira Schultz Work Phone: [facility] Work Phone: Start: 04-30-2022 End: 04-30-2022 Patient encounter procedure DO Elvira Schultz Work Phone: [facility] Start: 04-21-2022 End: 04-22-2022 ambulatory DOCTOR MISC Facility:[facility] Start: 03-27-2022 Office outpatient vi sit 15 minutes Elvira Schultz Work Phone: [facility] DO Work Phone: Start: 03-27-[address] Shea Brannon Facility: Start: 03-17-2022 End: 03-18-2022 ambulatory DOCTOR MISC Facility:[facility] Start: 02-26-2022 End: 02-26-2022 Patient encounter procedure VINICIUS RUSSELL [facility] Start: 02-18-2022 End: 02-19-[address] ELVIRA SCHULTZ Facility:[facility] Start: 01-22-2022 Encounter for preprocedural laboratory examination DR MIKE June [facility] Start: 01-22-2022 End: 01-22-[address] ELVIRA SCHULTZ Facility:[facility] Start: 01-21-2022 End: 01-22-[address] MIKE June Facility:[facility] Start: 01-21-2022 End: 01-22-2022 Encounter for preprocedural laboratory examination DR MIKE June Facility:[facility] Start: 01-14-2022 Encounter for preprocedural cardiovascular examination DR MIKE June [facility] Start: 01-13-2022 End: 01-14-2022 Encounter for preprocedural cardiovascular examination DR ELVIRA SCHULTZ Facility:[facility] Start: 01-13-2022 End: 01-14-[address] ELVIRA SCHULTZ Facility:[facility] Start: 01-07-2022 Rx Renewal Shea gill MD Work Phone: [facility] 250 DO Work Phone: Start: 12-24-2021 End: 12-24-2021 Patient encounter procedure Mike Alves Jr. [facility] Start: 12-23-2021 Telephone encounter Shea umanzor MD Work Phone: [facility] 600 DO Work Phone: Start: 12-21-2021 End: [...] In Error Start: 09-15-2021 Refill Nely parker APRN.CNP Work Phone: [facility] Comment on above: Refill Request Start: 05-13-2021 Rx Renewal Shea gill MD Work Phone: -[facility] DO Work Phone: Start: 03-26-2017 Ambulatory SHEA BRANNON Facedmond lity:[id number] Procedures Date Procedure Procedure Detail Performing Clinician Start: 04-09-2023 H/O: liver recipient Liver transplanted Shea Brannon MD Work Phone: Start: 02-18-2023 Lipid 1996 panel - Serum or Plasma Trace edmundo Lewis RN Start: 01-15-2023 Dual energy X-ray [...] ting Work Phone: Start: 09-22-2022 Cystoscopy Sugey Luvesta Start: 08-19-2022 PSA screening DOCTOR MISC Comment on above: Performed By: #### BOX #### [facility] [address] [place] [address] Dr. Yogi Naidu Start: 01-22-2022 Transrectal biopsy of prostate using ultrasound guidance Sugey Luvesta Start: 12-21-2021 PSA screening DOCTOR MISC Comment on above: Performed By: #### MERLE MORALES #### [facility] [address] [place] [address] Dr. Yogi Naidu Start: 11-09-2019 Transrectal biopsy of prostate using ultrasound guidance Mike Alves Jr. Start: 05-19-2018 Transrectal biopsy of prostate using ultrasound guidance Mike Alves Jr. Start: 01-19-2015 H/O: liver recipient Liver transplanted Nely Ibarra APRN.ELECTRICAL LINE WORKER Work Phone: Start: 02-11-2012 Colonoscopy Nely Ibarra APRN.ELECTRICAL LINE WORKER Work Phone: Appendectomy Mike June Appendectomy Shea Brannon MD Work Phone: Biopsy of prostate Shea Brannon MD Work Phone: Comment on above: Aug 06; Cardiac pacemaker, d evice (physical object) Mike Alves Jr. Colonoscopy Mike June Colonoscopy Shea Brannon MD Work Phone: Comment on above: [id number]; H/O: liver recipient Liver repla alessandro by transplant (HCC) Nely Ibarra APRN.ELECTRICAL LINE WORKER Work Phone: H/O: liver recipient Transplante d liver (HCC) Cesar Borrego MD Work Phone: H/O: liver recipient Liver transplanted Simon Brannon MD Work Phone: H/O: liver recipient Liver trans plant recipient DO Elvira Schulzt Work Phone: H/O: liver recipient Liver repla alessandro by transplant (HCC) Nely Ibarra APRN.ELECTRICAL LINE WORKER Work Phone: H/O: liver recipient Liver trans planted (CMS/HCC) Shea Brannon MD Work Phone: H/O: liver recipient Liver repla alessandro by transplant (HCC) Nely Ibarra APRN.ELECTRICAL LINE WORKER Work Phone: H/O: liver recipient Transplante d liver (HCC) Nely Fred LOZANO.ELECTRICAL LINE WORKER Work Phone: Hernia repair Shea Brannon MD Work Phone: Surgical procedure Shea Brannon MD Work Phone: Comment on above: vein removal from leg; Tonsillectomy Mike Long ch Transplantation of liver Elsy Brannon MD Work Phone: Transplantation of liver Deanne Arteaga Plan of Treatment Date Care Activity Detail Author Start: 02-19-2028 Lipid panel Lipid Screening [facility] Start: 02-19-2028 LIPID SCREEN LIPID SCREEN [facility] Start: 07-22-2027 LIPID SCREEN LIPID SCREEN [facility] Start: 10-15-2026 LIPID SCREEN LIPID SCREEN [facility] Start: 08-19-2026 LIPID SCREEN LIPID SCREEN [facility] Start: 08-16-2026 Diabetes Screening Diabetes Screening [facility] Start: 06-16-2026 Diabetes Screening Diabetes Screening [facility] Start: 02-18-2026 DIABETES SCREEN DIABETES SCREEN [facility] Start: 08-19-2025 DIABETES SCREEN DIABETES SCREEN [facility] Start: 10-15-2024 DIABETES SCREEN DIABETES SCREEN [facility] Start: 08-19-2024 DIABETES SCREEN DIABETES SCREEN [facility] Start: 04-15-2024 End: 04-15-2024 Patient encounter procedure 04/15/2024 8:30 AM EDT Office Visit [facility] [address] [place] [id number] Shea Brannon MD [address] [facility] [address], [address] [place] [address] [facility] Start: 06-15-2023 Advance Directive Discussion Advance Directive Discussion [facility] Start: 06-15-2023 Behavioral Health Screening Behavioral Health Screening [facility] Start: 06-15-2023 Depression Assessment Depression Assessment [facility] Start: 04-10-2023 FUV, Provider: Shea Brannon, Status: Pen, Time: 8:30 AM FUV, Provider: Shea Brannon, Status: Pen, Time: 8:30 AM [facility] 250 DO Work Phone: Start: 02-13-2023 Influenza vaccination INFLUENZA (#1) [facility] Start: 12-11-2022 [facility] Start: 06-15-2022 ADVANCE DIRECTIVE DISCUSSION ADVANCE DIRECTIVE DISCUSSION [facility] Start: 06-15-2022 DEPRESSION ASSESSMENT DEPRESSION ASSESSMENT [facility] Start: 02-13-2022 Influenza vaccination [facility] Start: 01-13-2022 FUV, Provider: Shea Brannon, Status: Pen, Time: 8:20 AM FUV, Provider: Shea Brannon, Status: Pen, Time: 8:20 AM [facility] 600 DO Work Phone: Start: 12-06-2021 FUV, Provider: Shea Brannon, Status: Pen, Time: 8:30 AM FUV, Provider: Shea Brannon, Status: Pen, Time: 8:30 AM [facility] DO Work Phone: Start: 06-15-2021 ADVANCE DIRECTIVE DISCUSSION ADVANCE DIRECTIVE DISCUSSION [facility] Start: 04-27-2021 Pneumococcal Vaccine: 65+ Years (3 - PPSV23 or PCV20) Pneumococcal Vaccine: 65+ Years (3 - PPSV23 or PCV20) [facility] Start: 06-22-2020 Pneumococcal Vaccine: 65+ (3 of 3 - PPSV23 or PCV20) Pneumococcal Vaccine: 65+ (3 of 3 - PPSV23 or PCV20) [facility] Start: 06-22-2020 Shingrix Vaccine (2 of 2) Shingrix Vaccine (2 of 2) [facility] Start: 06-22-2020 Zoster Vaccines (2 of 2) Zoster Vaccines (2 of 2) [facility] Start: 10-26-2017 PNEUMOVAX AGE 65 AND OVER WITH 5YR LOOKBACK (#1) PNEUMOVAX AGE 65 AND OVER WITH 5YR LOOKBACK (#1) [facility] Start: 2017 Abdominal aortic aneurysm screening Abdominal Aortic Aneurysm (AAA) Screening [facility] Start: 2017 ADULT PREVNAR ADULT PREVNAR [facility] Start: 2017 ADULT PREVNAR-13 ADULT PREVNAR-13 [facility] Start: 10-26-2013 PNEUMOCOCCAL: 65+ (2 - PCV) PNEUMOCOCCAL: 65+ (2 - PCV) [facility] Start: 02-10-2013 Colonoscopy COLONOSCOPY [facility] Start: 02-10-2013 COLORECTAL CANCER SCREENING COLORECTAL CANCER SCREENING [facility] Start: 02-10-2013 Screening for malignant neoplasm of colon [facility] Start: 11-23-2012 HEPATITIS A (2 of 3 - Hep A Twinrix risk 3-dose series) HEPATITIS A (2 of 3 - Hep A Twinrix risk 3-dose series) [facility] Start: 11-23-2012 Hepatitis A Vaccines (2 of 3 - Hep A Twinrix risk 3-dose series) Hepatitis A Vaccines (2 of 3 - Hep A Twinrix risk 3-dose series) [facility] Start: 11-23-2012 HEPATITIS B (2 of 3 - Hep B Twinrix risk 3-dose series) HEPATITIS B (2 of 3 - Hep B Twinrix risk 3-dose series) [facility] Start: 11-23-2012 Hepatitis B Vaccines (2 of 3 - Hep B Twinrix risk 3-dose series) Hepatitis B Vaccines (2 of 3 - Hep B Twinrix risk 3-dose series) [facility] Start: 2012 RSV Vaccine (1 - 1-dose 60+ series) RSV Vaccine (1 - 1-dose 60+ series) [facility] Start: 2002 SHINGRIX VACCINE (1 of 2) SHINGRIX VACCINE (1 of 2) [facility] Start: 1997 COLOGUARD (FIT-DNA) COLOGUARD (FIT-DNA) [facility] Start: [address] COLONOGRAPHY [facility] Start: 1997 FECAL OCCULT BLOOD FECAL OCCULT BLOOD [facility] Start: 1997 Screening for malignant neoplasm of colon [facility] Start: 1997 SIGMOIDOSCOPY SIGMOIDOSCOPY [facility] Start: 1974 DTaP/Tdap/Td Vaccines (1 - Tdap) DTaP/Tdap/Td Vaccines (1 - Tdap) [facility] Start: 1971 SHINGRIX VACCINE (1 of 2) SHINGRIX VACCINE (1 of 2) [facility] Start: 1971 Urine microalbumin profile [facility] Start: 1964 Adult depression screening assessment DEPRESSION SCREENING [facility] Start: 1964 COVID-19 VACCINE (1) COVID-19 VACCINE (1) [facility] Start: 1957 COVID-19 VACCINE (#1) COVID-19 VACCINE (#1) [facility] Start: 1952 COVID-19 VACCINE (#1) COVID-19 VACCINE (#1) [facility] Start: 1952 ABDOMINAL AORTIC ANEURYSM SCREENING ABDOMINAL AORTIC ANEURYSM SCREENING [facility] Start: 1952 Abdominal aortic aneurysm screening Abdominal Aortic Aneurysm Screening [facility] Start: 1952 Lipid panel Lipid Panel [facility] Start: 1952 Medicare Annual Wellness Visit Medicare Annual Wellness Visit (AWV) [facility] Start: 1952 Screening for malignant neoplasm of colon [facility] Calprotectin [Mass/m ass] in Stool [facility] Ova and parasites identified in Unspecified specimen by Light microscopy [facility] Patient Education Gastritis Esop hageal Dilation Colon Polypectomy (DC) [facility] Work Phone: Potassium [Moles/mas s] in Stool [facility] Immunizations Immunization Date Immunization Notes Care Provider Fa tina 01-27-2023 Flu vaccine, quadrivalent, high-dose, preservative free, age 65y+ (FLUZONE) Shea Brannon MD Work Phone: [facility] Work Phone: 01-27-2023 influenza virus vaccine, unspecified formulation Sugey Chandler [facility] 05-30-2022 Flu vaccine, quadrivalent, high-dose, preservative free, age 65y+ (FLUZONE) Shea Brannon MD Work Phone: [facility] Work Phone: 05-30-2022 influenza virus vaccine, unspecified formulation Sugey Lue [facility] 04-20-2021 Fluad Quadrivalent 0 .5 ML Intramuscular Prefilled Syringe Elvira R Bunting Work Phone: [facility] 250 DO Work Phone: 04-20-2021 influenza virus vaccine, unspecified formulation Sugey Lue [facility] 04-27-2020 Fluad Quadrivalent 0 .5 ML Intramuscular Prefilled Syringe Elvira R Bunting Work Phone: [facility] 250 DO Work Phone: 04-27-2020 influenza virus vaccine, unspecified formulation Sugey Lue [facility] 04-27-2020 pneumococcal conjuga te vaccine, 13 valent Elvira R Bunting Work Phone: [facility] 04-27-2020 zoster vaccine recombinant Elvira R Bunting Work Phone: [facility] 03-15-2020 influenza virus vaccine, unspecified formulation Shea Brannon MD Work Phone: [facility] 03-15-2020 influenza, seasonal, injectable Shea Brannon MD Work Phone: [facility] Work Phone: 02-16-2019 influenza virus vaccine, unspecified formulation Sugey Lue [facility] 02-16-2019 influenza, high dose seasonal, preservative-free Elvira R Bunting Work Phone: [facility] 250 DO Work Phone: 06-15-2018 influenza virus vaccine, unspecified formulation Shea Brannon MD Work Phone: [facility] 06-15-2018 influenza, seasonal, injectable hSea Brannon MD Work Phone: [facility] Work Phone: 04-15-2018 influenza virus vaccine, unspecified formulation Shea Brannon MD Work Phone: [facility] 600 DO Work Phone: 02-22-2018 influenza virus vaccine, unspecified formulation Sugey Luvesta [facility] 02-22-2018 influenza, high dose seasonal, preservative-free Elvira R Bunting Work Phone: [facility] 250 DO Work Phone: 02-16-2017 influenza virus vaccine, unspecified formulation Shea Brannon MD Work Phone: [facility] 600 DO Work Phone: 02-11-2017 influenza virus vaccine, unspecified formulation Sugey Luvesta [facility] 02-11-2017 influenza, injectabl e, quadrivalent, preservative free Shea Brannon MD Work Phone: [facility] Work Phone: 04-23-2016 influenza virus vaccine, unspecified formulation Sugey Lue [facility] 04-23-2016 influenza, injectabl e, quadrivalent, preservative free Elvira R Bunting Work Phone: [facility] 250 DO Work Phone: 04-12-2015 influenza virus vaccine, unspecified formulation Sugey Arteaga [facility] 04-12-2015 influenza, injectabl e, quadrivalent, preservative free Elvira Schultz Work Phone: [facility] 250 DO Work Phone: 10-26-2012 hepatitis A and hepatitis B vaccine Nely Ibarra LEATHER COVERER.ELECTRICAL LINE WORKER Work Phone: [facility] 10-26-2012 pneumococcal polysaccharide vaccine, 23 valent Nely Ibarra LEATHER COVERER.ELECTRICAL LINE WORKER Work Phone: [facility] 10-26-2012 hepatitis B vaccine, unspecified formulation Nely Ibarra LEATHER COVERER.ELECTRICAL LINE WORKER Work Phone: [facility] Payers Date Payer Category Payer Self-pay [id number] 2021 Medicare ANTHEM MEDICARE ANTH MEDICARE ADVANTAGE [id number] 2021-Present [address] [place] [address] [id number] 2021 Unknown [facility] ANTHEM MEDIBLUE ACCESS [id number] 2021-Present [phone] [address] [place] [address] PPO [id number] 2019 Unknown 1957 Medicare [id number] 1952 Unknown [id number] 2.16.840.1.486327.3.579.2.593 1952 Unknown [id number] 2.16.840.1.049652.3.579.2.593 1952 Unknown [id number] 2.16.840.1.058865.3.579.2.593 1952 Unknown [id number] 2.16.840.1.788340.3.579.2.593 1952 Unknown [id number] 2.16.840.1.527318.3.579.2.593 1952 Unknown [id number] 2.16.840.1.412434.3.579.2.593 1952 Unknown [id number] 2.16.840.1.859906.3.579.2.593 1952 Unknown [id number] 2.16.840.1.708885.3.579.2.593 1952 Unknown [id number] 2.16.840.1.963748.3.579.2.593 1952 Unknown [id number] 2.16.840.1.334959.3.579.2.593 1952 Unknown [id number] 2.16.840.1.251700.3.579.2.593 1952 Unknown [id number] 2.16.840.1.918513.3.579.2.593 1952 Unknown [id number] 2.16.840.1.150721.3.579.2.593 1952 Unknown [id number] 2.16.840.1.332429.3.579.2.593 1952 Unknown [id number] 2.16.840.1.432146.3.579.2.593 1952 Unknown [id number] 2.16.840.1.773590.3.579.2.593 1952 Unknown [id number] 2.16.840.1.896442.3.579.2.593 1952 Unknown [id number] 2.16.840.1.296528.3.579.2.356 1952 Unknown [id number] 2.16.840.1.987783.3.579.2.356 1952 Unknown [id number] 2.16.840.1.940562.3.579.2.356 1952 Unknown [id number] 2.16.840.1.929633.3.579.2.356 1952 Unknown [id number] 2.16.840.1.872784.3.579.2.356 1952 Unknown [id number] 2.16.840.1.484173.3.579.2.124 4 1952 Unknown [id number] 2.16.840.1.585963.3.579.2.727 1952 Unknown [id number] 2.16.840.1.109583.3.579.2.727 1952 Unknown [id number] 2.16.840.1.141290.3.579.2.727 1952 Unknown [id number] 2.16.840.1.519273.3.579.2.727 1952 Unknown [id number] 2.16.840.1.365191.3.579.2.727 1952 Unknown [id number] 2.16.840.1.922539.3.579.2.727 Medicare Medicare [id number] Unknown [id number] Unknown HCAP/HFA/FAP Active [id number] Unknown [id number] 2.16.840.1.317028.3.579.2.531 Unknown [id number] 2.16.840.1.619835.3.579.2.531 Unknown [id number] 2.16.840.1.512189.3.579.2.531 Unknown [id number] 2.16.840.1.374387.3.579.2.531 Unknown [id number] 2.16.840.1.149748.3.579.2.531 Unknown [id number] 2.16840.1.366382.3.579.2.531 Social History Date Type Detail Facility Start: 11-29-2012 End: 12-24-2021 Tobacco smoking status NHIS Ex-smoker [facility] Start: 02-18-2017 Alcohol intake 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 alcohol (finding) [facility] Start: 1950 Sex Assigned At Not on file [facility] Start: 08-13-2023 Tobacco smoking status Never [facility] Start: 12-11-2017 End: 05-21-2020 Sex Assigned At Male [facility] Start: 12-11-2017 End: 05-21-2020 Caffeine use Caffeine use [facility] [address] DO Work Phone: Comment on above: 1.5 cups of coffee a nd a quart of Iced Tea daily; quit around ; 1.5 cups of coffee; Start: 1950 Sex Assigned At Male [facility] End: 06-15-1982 History of tobacco use Current smoker [facility] Start: 11-29-2012 End: 04-10-2023 Tobacco use and exposure Smokeless tobacco non-user [facility] End: 06-15-1982 History of tobacco use Cigarette Smoker [facility] Work Phone: Start: 04-10-2023 Alcohol intake Lifetime non-d nella (finding) [facility] Work Phone: Start: 03-31-2023 End: 04-10-2023 Exposure to SARS-CoV-2 (event) Not sure [facility] Medical Equipment Procedure Code Equipment Code Equipment [...] 08-13-2023 Functional Status N/A [facility] 05-27-2023 Functional Status N/A [facility] 02-25-2023 Functional Status N/A [facility] 10-08-2022 Functional Status N/A [facility] 09-15-2022 Functional Status N/A [facility] 09-10-2022 Functional Status N/A [facility] 02-26-2022 Functional Status N/A [facility] 12-24-2021 Functional Status N/A [facility] Clinical Notes 02-07-2015 to 08-13-2023 Telephone Encounter [...] urethra. Follow these instructions at home: Take pmil-nme-suewwut and prescription medicines only as told by [...] provider. Document Revised: 12/18/2021 Document Reviewed: 12/18/2021 [employer] Patient Education 2022 [employer] Follow Up Care 08/11/2023 16:25:46 With:Chandler CHAVEZ, TAMEKA Mendoza, URO Address: When: Unknown [facility] 07-28-2023 Miscellaneous Notes PA denied, pharmacy was billing incorrectly. Medicare paid for OLT and tacrolimus should be billed under part B. Pharmacy billing incorrectly. Yulisa Lewis RN, BSN, [facility] Liver Business Director Tacrolimus PA submitted via [employer] website. [employer]: [id number] Awaiting coverage determination. Yulisa Lewis RN, BSN, [facility] Liver Business Director documented in this encounter [facility] 05-27-2023 Hospital Discharge instructions Patient Education [...] urethra. Follow these instructions at home: Take vycr-xuu-zqvdcof and prescription medicines only as told by [...] provider. Document Revised: 12/18/2021 Document Reviewed: 12/18/2021 [employer] Patient Education 2022 [employer] Follow Up Care 02/25/2023 09:53:13 With:Chandler CHAVEZ, TAMEKA Mendoza, URO Address: When:Within 9 Month(s) Comments:w/PSA F&T [facility] 04-10-2023 History of Present illness Narrative Subjective [...] (CMS/HCC) 6. Pacemaker documented in this encounter [facility] Work Phone: 04-10-2023 Instructions Reina Wagner LPN [...] of your visit. documented in this encounter [facility] Work Phone: 02-25-2023 Hospital Discharge instructions Patient [...] treatment? Where to find more information [employer] [place] [employer]: www.cancer.org [employer] [employer]: www.auanet.org Contact a health care [...] provider. Document Revised: 11/25/2021 Document Reviewed: 11/25/2021 [employer] Patient Education 2022 [employer] Follow Up Care 11/18/2022 14:45:41 With:Chandler CHAVEZ, TAMEKA Mendoza, URO Address: When:Within 3 Month(s) [facility] 02-23-2023 Miscellaneous Notes Spoke with patient who [...] patent and also faxed to local lab [phone]. Pt verbalized understanding, no further questions at this time. Yulisa Lewis RN, BSN, [facility] Liver Business Director documented in this encounter [facility] 01-01-2023 Evaluation note Encounter Date Diagnosis Assessment Notes Dec, Change in bowel habits (ICD-10 - R19.4) Dec, Other dysphagia (ICD-10 - R13.19) [employer] Other 06-16-2023 Evaluation note* Encounter Date Diagnosis Assessment Notes Treatment Notes Treatment Clinical Notes Nov, Age-related osteoporosis without current pathological fracture (ICD-10 - M81.0) [employer] Other 04-26-2023 Hospital Discharge instructions Patient Education [...] including vitamins, herbs, eye drops, creams, and ixkj-ivc-hbnvdnu medicines. Any problems you or family members [...] provider tells you to take them. Taking qfln-cgu-ijibfer medicines, vitamins, herbs, and supplements. Surgery safety [...] provider. Document Revised: 02/25/2022 Document Reviewed: 02/25/2022 [employer] Patient Education 2022 [employer] Follow Up Care 09/22/2022 08:19:53 With:Chandler CHAVEZ, TAMEKA Mendoza, URO Address: [address] [place] [address] [phone] When: Unknown [facility] 04-10-2023 Note [id number]:127[facility] 09-22-2022 NoteCystoscopy ? Voiding after the procedure: [...] if you have a fever over 100 degrees.[facility] 09-22-2022 Hospital Discharge instructions Patient Education 09/22/2022 [...] Up Care 09/10/2022 10:23:36 With:Sugey Arteaga Address: [address] [place] [address]- [phone] Business (1) [facility] Greg Moreau, [address] [address] [phone] Business (1) When: Unknown Comments:Office to schedule follow up in 2-4 wks to review MRI prostate and BPH procedures [facility]03-29-2023 Hospital Discharge instructions Patient Education 09/10/2022 [...] including vitamins, herbs, eye drops, creams, and inmk-fdp-hnmpgzs medicines. This also includes: ?Medicines to assist [...] 07/04/2005 Document Revised: 05/14/2018 Document Reviewed: 03/08/2018 [employer] Patient Education 2020 [employer] 09/10/2022 10:13:27 Benign Prostatic Hyperplasia Benign Prostatic [...] urethra. Follow these instructions at home: Take wfrt-jag-kkekymj and prescription medicines only as told by [...] 06/01/2006 Document Revised: 04/26/2019 Document Reviewed: 07/06/2017 [employer] Patient Education 2020 [employer] Follow Up Care 02/26/2022 15:32:46 With:Chandler CHAVEZ, TAMEKA Mendoza, URO Address: When:Within 6 Month(s) Comments:w/PSA [facility] 09-14-2022 Hospital Discharge instructions Patient Education 02/26/2022 [...] have oneof these risk factors: ?Being of -Malagasy descent. ?Having a family history of prostate [...] you: Are older than age 55. Are -Malagasy. Have a father, brother, or uncle who [...] 03/12/2018 Document Revised: 05/14/2018 Document Reviewed: 03/12/2018 [employer] Patient Education 2019 [employer] Follow Up Care 01/02/2022 11:31:28 With:VINICIUS RUSSELL PA-C, URL Address: [address] [place] [address] When:6 months Comments:W/ PSA [facility] 07-12-2022 Hospital Discharge instructions Patient Education 12/24/2021 [...] including vitamins, herbs, eye drops, creams, and sncm-bbh-evszqvd medicines. This also includes: ?Medicines to assist [...] 07/04/2005 Document Revised: 05/14/2018 Document Reviewed: 03/08/2018 [employer] Patient Education 2020 [employer] Follow Up Care 06/18/2021 08:41:53 With:Long More MD, Mike Cox, URO Address: [facility] [address], [place] [address]- When: Unknown [facility] 05-05-2022 Miscellaneous Notes* Telephone Encounter - Yulisa Lewis RN - 10/17/2021 8:51 AM EDT FK reviewed, no changes. [facility] History of Past illness Narrative* Problem [...] HE grade 4, serum ammonia 228 at [place] [facility] , admitted 3/ morning. - Per family, minor confusion since the last 6 months inspite of being on medications. - Intubated en route to [facility] for airway protection 2/2 AMS. - Diagnostic para, culture NGTD, negative for SBP by counts. - Back to baseline MS 35 -extubated PLAN: - Lactulose, zinc and rifaximin. - Follow cultures. DVT prophylaxis 08/14/2012 02/18/2017 Overview: Plan: - SQ heparin. - Pepcid for GI prophylaxis. Mechanically assisted ventilation 08/14/2012 02/18/2017 Overview: - Intubated on 08/14 en route from [facility] for airway protection. - Tolerating PSV. [...] of this encounter (statuses as of 09/16/2021) [facility] History of Past illness Narrative* Problem [...] HE grade 4, serum ammonia 228 at [place] [facility] , admitted 08/13 morning. - Per [...] - Intubated on 08/14 en route from [facility] for airway protection. - Tolerating PSV. [...] of this encounter (statuses as of 10/17/2021) [facility] History of Past illness Narrative* Problem [...] HE grade 4, serum ammonia 228 at [place] [facility] , admitted 3/ morning. - Per [...] - Intubated on 08/14 en route from [facility] for airway protection. - Tolerating PSV. [...] of this encounter (statuses as of 11/08/2021) [facility] History of Past illness Narrative* Problem Noted Date Resolved Date SB (acute kidney injury) 02/07/20152016 Hepatocellular carcinoma 12/21/2014 017 Hepatitis C 05/03/2013 02/18/2017 Ascites 11/10/2012 02/18/2017 Portal hypertension 11/10/2012 02/18/2017 Leucocytosis 08/18/2012 02/18/2017 Overview: Elevated to 15 today PCT 0.19 (3) Afebrile Fernando cultures NGTD Plan: Repeat PCT [...] HE grade 4, serum ammonia 228 at [place] [facility] , admitted 3/ morning. - Per [...] ventilation 08/14/2012 02/18/2017 Overview: - Intubated on 3/2 en route from [facility] for airway protection. - Tolerating PSV. [...] of this encounter (statuses as of 09/04/2022) [facility] History of Past illness Narrative* Problem [...] HE grade 4, serum ammonia 228 at [place] [facility] , admitted 3/ morning. - Per family, minor confusion since the last 6 months inspite of being on medications. - Intubated en route to [facility] for airway protection 2 AMS. - Diagnostic para, culture NGTD, negative for SBP by counts. - Back to baseline MS 3 -extubated PLAN: - Lactulose, zinc and rifaximin. - Follow cultures. DVT prophylaxis 08/14/2012 02/18/2017 Overview: Plan: - SQ heparin. - Pepcid for GI prophylaxis. Mechanically assisted ventilation 08/14/2012 02/18/2017 Overview: - Intubated on 08/14 en route from [facility] for airway protection. - Tolerating PSV. [...] of this encounter (statuses as of 02/24/2023) [facility] History of Past illness Narrative* Problem [...] HE grade 4, serum ammonia 228 at [place] [facility] , admitted 3/ morning. - Per [...] - Intubated on 08/14 en route from [facility] for airway protection. - Tolerating PSV. [...] of this encounter (statuses as of 07/28/2023) [facility] History of Past illness Narrative* Problem [...] HE grade 4, serum ammonia 228 at [place] [facility] , admitted 3/ morning. - Per [...] - Intubated on 08/14 en route from [facility] for airway protection. - Tolerating PSV. [...] SBP - Last paracentesis in Jul - L removed at OSH, no SBP per [...] as of this encounter (statuses as of 08/17/2023) [facility] No data available for this section [facility] evaluation + Plan note Future Appointments Appointment Date:08/26/2022 08:00:00 AM Scheduled Provider:Mike Alves Jr., MD [facility] Appointment Type:URO Office Visit Diagnostic Tests Pending * PSA Total 02/26/22 [facility] evaluation + Plan note Future Appointments Appointment Date:09/11/2022 08:00:00 AM Scheduled Provider: Location:[facility] Appointment Type:Urology CALL PAT FT Appointment Date:09/15/2022 09:45:00 AM Scheduled Provider: Location:[facility] Appointment Type:Urology FT Diagnostic Tests Pending * PSA Total 09/10/22 [facility] evaluation + Plan note Future Appointments Appointment Date:10/08/2022 08:00:00 AM Scheduled Provider:Sugey Arteaga MD [facility] Future Appointments Appointment Date:05/27/2023 09:45:00 AM Scheduled Provider:Sugey Arteaga MD Location[facility] Appointment Type:URO Office Visit [facility] evaluation + Plan note Future Appointments Appointment Date:02/17/2024 09:45:00 AM Scheduled Provider:Sugey Arteaga MD Location[facility] Appointment Type:URO Office Visit Diagnostic Tests Pending * PSA Free & Total 05/27/23 [facility] evaluation + Plan note Future Appointments Appointment Date:02/17/2024 09:45:00 AM Scheduled Provider:Sugey Arteaga MD [facility] Appointment Type:URO Office Visit Future Scheduled Tests Laboratory* PSA Free & Total 12/14/23 [facility] Evaluation note* Diagnosis Liver replaced by transplant (HCC) Liver replaced by transplant [facility] Diagnosis Need for prophylactic immunotherapy Transplanted liver (HCC) Liver replaced by transplant documented in this encounter [facility] noteNo assessment information [facility] Work Phone: Evaluation note* Diagnosis Liver replaced by transplant (HCC) Liver replaced by transplant [facility] this encounter [facility]Ev[facility] noteNo InformationNo[facility] [employer] Other Evaluation note* Diagnosis Sick sinus syndrome (CMS/HCC)- Primary Sinoatrial node dysfunction Essential hypertension Unspecified essential hypertension Mixed hyperlipidemia Overweight with body mass index (BMI) of 26 to 26.9 in adult Liver transplanted (CMS/HCC) Liver replaced by transplant Pacemaker Cardiac pacemaker in situ documented in this encounter [facility] Work Phone: Evaluation note* Diagnosis Liver replaced by transplant (HCC) [facility] Need for prophylactic immunotherapy Transplanted liver (HCC) Liver replaced by transplant [facility] Narrative - Reported* Type Description Date Medical History HISTORY OF HEP C Medical History LIVER TRANSPLANT Medical History prostatism Medical History liver cancer Surgical History APPENDECTOMY Surgical History HERNIA REPAIR Surgical History LIVER TRANSPLANT Surgical History VEIN STRIPPING 2005 Hospitalization History SEE ABOCE [employer] Other Hisjemt general Narrative - Reported* Type Description Date Medical History HISTORY OF HEP C Medical History LIVER TRANSPLANT Medical History prostatism Medical History liver cancer Medical History PACE MAKER PLACED Surgical History APPENDECTOMY Surgical History HERNIA REPAIR Surgical History LIVER TRANSPLANT Surgical History VEIN STRIPPING 2005 Surgical History PACE MAKER PLACEMENT Hospitalization History SEE ABOVE [employer] Other History of Present illness Narrative* Patient [...] Modification * 5. Follow-up in 1 year [facility] [address] DO Work Phone: Progress note No data available for this section [facility] DipJar reason for referral (narrative)* Consultation (Routine) - Authorized Specialty Diagnoses / Procedures Referred By Contjanet t Referred To Contact Cardiology Diagnoses Sick sinus syndrome (CMS/HCC) Essential hypertension Mixed hyperlipidemia Procedures Follow Up In Cardiology Shea Brannon MD [address] [facility] [address], [address] [address] Shea Brannon MD [address] [facility], [address] [place] [address] Referral ID Status Reason Start Date Expiration Date V isits Requested Visits Authorized [id number] Authorized 04/10/2023 04/09/2024 1 1 [facility] Work Phone: Summary Purpose Family History Unknown Family Member Name Dates Details Family [...] Heart disease Unknown father Heart disease Unknown Relationship Condition Age at Onset Recorded Date/T rabia Not Specified Diabetes mellitus Unknown Heart disease Unknown father Heart disease Unknown father Diabetes mellitus Unknown Unknown Hypertension Unknown Not Specified Unknown Malignant neoplasm Unknown Diabetes mellitus Unknown Advance Directives Advance Directive Response Recorded Date/ Time Advance [...] section and content) DATE CREATED AUTHOR 12/08/2017 [facility] DATE CREATED AUTHOR AUTHOR'S ORGANIZ ATION 04/16/2020 [facility] DATE CREATED AUTHOR AUTHOR'S ORGANIZ ATION 10/24/2022 [facility] DATE CREATED AUTHOR AUTHOR'S ORGANIZ ATION 11/23/2022 [facility] DATE CREATED AUTHOR AUTHOR'S ORGANIZ ATION 04/13/2023 [facility] DATE CREATED AUTHOR AUTHOR'S ORGANIZ ATION 05/31/2023 [facility] DATE CREATED AUTHOR AUTHOR'S ORGANIZ ATION 11/08/2023 [facility] DATE CREATED AUTHOR AUTHOR'S ORGANIZ ATION 11/15/2023 [facility] Source Comments (unrecognize d section and content) In the event this informatio n is protected by the Federal Confidentiality of Alcohol and Drug Abuse Patient Records regulations: The Federal rules restrict any use of the information to criminally investigate or prosecute any alcohol or drug abuse patient.[facility] Hospital[facility] the event this information is protected by the Federal Confidentiality of Alcohol and Drug Abuse Patient Records regulations: The Federal rules restrict any use of the information to criminally investigate or prosecute any alcohol or drug abuse patient.[facility] HospitalIn the event this information is protected by the Federal Confidentiality of Alcohol and Drug Abuse Patient Records regulations: The Federal rules restrict any use of the information to criminally investigate or prosecute any alcohol or drug abuse patient.[facility] HospitalIn the event this information is protected by the Federal Confidentiality of Alcohol and Drug Abuse Patient Records regulations: The Federal rules restrict any use of the information to criminally investigate or prosecute any alcohol or drug abuse patient.[facility] HospitalIn the event this information is protected by the Federal Confidentiality of Alcohol and Drug Abuse Patient Records regulations: The Federal rules restrict any use of the information to criminally investigate or prosecute any alcohol or drug abuse patient.[facility] HospitalIn the event this information is protected by the Federal Confidentiality of Alcohol and Drug Abuse Patient Records regulations: The Federal rules restrict any use of the information to criminally investigate or prosecute any alcohol or drug abuse patient.[facility] HospitalIn the event this information is protected by the Federal Confidentiality of Alcohol and Drug Abuse Patient Records regulations: The Federal rules restrict any use of the information to criminally investigate or prosecute any alcohol or drug abuse patient.[facility] HospitalIn the event this information is protected by the Federal Confidentiality of Alcohol and Drug Abuse Patient Records regulations: The Federal rules restrict any use of the information to criminally investigate or prosecute any alcohol or drug abuse patient.[facility] HospitalIn the event this information is protected by the Federal Confidentiality of Alcohol and Drug Abuse Patient Records regulations: The Federal rules restrict any use of the information to criminally investigate or prosecute any alcohol or drug abuse patient.[facility] Reason for Visit (unrecogniz ed section [...] Active Sugey Arteaga MD Attending Provider Active [employer] Relationship Specialty Start Date End Date Bunting, Elvira Ray, DO [address] [place] [address] PCP - General Family Practice 01/06/12 Yulisa Lewis RN [place] [id number] Registered Nurse Trans[facility] 07/14/19 [employer] Relationship Specialty Start Date End Date Bunting, Elvira Ray, DO [address] [place] [address] PCP - General Family Practice 01/06/12 Yulisa Lewis RN [facility] [address] [place] [id number] Registered Nurse Transplant Center 07/14/19 Team Status: Inactive Member Role Status Dates Elvira Schultz DO Primary Care Provider Active Shea Brannon MD Attending Provider Active [employer] Relationship Specialty Start Date End Date Bunting, Elvira Ray, DO [address] [place] [address] PCP - General Family Medicine 01/06/12 Yulisa Lewis RN [facility] [address] [place] [address] Registered Nurse Transplant Center 07/14/19 Team Status: Inactive Member Role Status Dates Elvira Schultz , Primary Care Provider Active Branden Woodward MD Attending Provider Active Team Status: Inactive Member Role Status Dates Elvira Schultz , DO Primary Care Provider Active Sheila Magallanes MD Attending Provider Active [employer] Relationship Specialty Start Date End Date Bunting, Elvira Ray, DO [address] [place] [address] PCP - General Family Medicine 01/06/12 Yulisa Lewis RN [facility] [address] [place] [address] Registered Nurse Transplant Center 07/14/19 [employer] Relationship Specialty Start Date End Date BunElvira serrano Ray, DO [address] [place] [address] PCP - General 06/15/99 [employer] Relationship Specialty Start Date End Date BunElvira serrano Ray, DO [address] [facility] [place] [address] PCP - General Family Medicine 01/06/12 Yulisa Lewis RN [facility] [address] [place] [address] Registered Nurse Transplant Center 07/14/19 Su[employer] Hand Relationship Specialty Start Date End Date BunElvira serrano Ray, DO [address] [facility] [place] [address] PCP - General Family Medicine 01/06/12 Yulisa Lewis RN [facility] [address] [place] [address] Registered Nurse Transplant Center 07/14/19 Su[employer] Plate Rol[employer] Hand Relationship Specialty Start Date End Date BunElvira serrano Ray, DO [address] [place] [address] PCP - General Family Medicine 01/06/12 Yulisa Lewis RN [facility] [address] [place] [address] Registered Nurse Transplant [place] 07/14/19 Team Status: Inactive Member Role Status Dates Elvira Schultz DO Primary Care Provider Active Start: November 06, 2023 End: November 06, 2023 Branden Woodward MD Attending Provider Active Start: November 06, 2023 End: November 06, 2023 Su[employer] Plate Rol[employer] Hand Relationship Specialty Start Date End Date Elvira Schultz DO [address] [place] [address] PCP - General Family Medicine 01/06/12 Yulisa Lewis RN [facility] [address] [place] [address] Registered Nurse Transplant [place] 07/14/19 Goals (unrecognized section and content) Goals [...] BE BASED ON THE PRIMARY CLINICAL RECORDS. [facility] [employer] [facility] provides no warranty or guarantee of the accuracy or completeness of information in this document.
[2023-12-14 08:41] LABS: Hematocrit 43.8 % (42.0-54.0); Hemoglobin 14.2 g/dL (14.0-18.0); Mean Corpuscular HGB Conc 32.4 g/dL (29.9-35.2); Mean Corpuscular Hemoglobin 29.5 pg (25.9-34.0); Mean Corpuscular Volume 91.1 fL (80.0-94.0); Mean Platelet Volume 9.5 fL (9.5-13.5); Platelet Count 141 10^3/uL (150-450); Red Blood Count 4.81 10^6/uL (4.70-6.10); Red Cell Distribution Width 13.9 % (11.0-15.0); White Blood Count 5.2 10^3/uL (4.0-11.0)
[2023-12-14 09:03] LABS: Alanine Aminotransferase 15 U/L (16-63); Albumin Globulin Ratio 1.7; Albumin Level 3.7 g/dL (3.4-5.0); Alkaline Phosphatase 57 U/L (46-116); Anion Gap 12.4; Aspartate Amino Transferase 13 U/L (15-37); BUN Creatinine Ratio 23.4; Bilirubin Total 0.6 mg/dL (0.2-1.0); Calcium 8.7 mg/dL (8.5-10.1); Carbon Dioxide 27.9 mmol/L (21.0-32.0); Chloride 108 mmol/L (98-107); Estimated GFR (African America >60 (>=60); Estimated GFR (Non-African Ame 51 (>=60); Globulin 2.2 g/dL; Glucose 104 mg/dL (74-106); Phosphorus 3.5 mg/dL (2.6-4.7); Potassium 4.3 mmol/L (3.5-5.1); Sodium 144 mmol/L (136-145); Total Protein 5.9 g/dL (6.4-8.2)
[2023-12-14 09:37] LABS: BOX Test Sent Out Y
[2023-12-14 09:53] LABS: Lymphocytes Absolute Manual 0.83 10^3/uL (1.20-3.80); Monocytes Absolute Manual 0.41 10^3/uL (0.30-0.80); Segmented Neut Absolute Manual 3.95 10^3/uL (1.4-6.5)
== END 2023-12-14 08:18 | disposition home or self-care (01) ==
LOC: LAB 08:20
PROVIDERS: PCP Family Medicine
DX: K76.9 Liver disease, unspecified (principal); Z48.23 Encounter for aftercare following liver transplant; Z94.4 Liver transplant status; Z41.8 Encounter for other procedures for purposes other than remedying health state; E83.30 Disorder of phosphorus metabolism, unspecified; R73.02 Impaired glucose tolerance (oral)
CPT/HCPCS: 36415; 80053; 84100; 85007; 85027

== ENCOUNTER 2024-02-16 08:15 | Outpatient (OUT) | payer MEDICARE, SELFPAY ==
--- OUTSIDE RECORDS SUMMARY | 2024-02-16 08:26 | XMS_ITS | CCD ---
Author Organization [facility]iniSys[facility] Care Team Providers Care Front Office Specialist Name Role Phone SHEA BRANNON Unavailable Unavailable BUNTING, ELVIRA R Unavailable Unavailable Unavailable Unavailable Bunting Elvira VASQUEZ Primary Care Provider Yulisa Lewis RN Unavailable Unavailable BUNTING, ELVIRA R Primary Care Physician [phone] Bunting, Elvira R Unavailable Bunting, DO Felix Primary Care Provider MD Shea Brannon Attending Provider Bunting Elvira VASQUEZ Ray Primary Care Provider Yulisa Lewis RN Unavailable [...] June, DR MIKE Cox Attending Unavaila ble LONG June, DR MIKE Cox Admitting Unavaila ble [...] Dr. Elvira Maurer Primary Care Unavaila ble Trabouldeborah, Dr. Marvin Referring Unavaila ble Geronimooulssedmond, Dr. Marvin Attending Unavaila ble Bunting, Dr. Elvira Maurer Primary Care Unavaila ble Bunting, Dr. Elvira Maurer Primary Care Unavaila ble Bunting, DO Elvira Primary Care Provider MD Sugey Arteaga Attending Provider Bunting Elvira VASQUEZ Ray Primary Care Provider SHEA BRANNON Attending Unavailable BUNTING, ELVIRA RAY Primary Care Unavailable Bunting, DO Elvira Primary Care Provider MD Branden Woodward Attending Provider Sugey Arteaga Attending Unavailable LueSugey MShaylee Attending Unavailable LueSugey MShaylee Attending Unavailable LueSugey MShaylee Referring Unavailable NateSugey MShaylee Attending Unavailable NateSugey Attending Unavailable Sugey Arteaga Attending Unavailable NateSugey MShaylee Admitting Unavailable NateSugey MShaylee Referring Unavailable Kevin DE LA GARZA Attending Unavailable Bunting DO, Elvira Ray Primary Care Provider Bunting, DO Elvira Primary Care Provider MD Branden Woodward Attending Provider Bunting, DO Elvira Primary Care Provider MD Branden Woodward Attending Provider Branden Woodward Admitting Unavail able Branden Woodward Attending Unavail able Bunting, Elvira Primary Care Unavailable Branden Woodward Attending Unavail able Bunting, Elvira Primary Care Unavailable Branden Woodward Admitting Unavail able Branden Woodward Attending Unavail able Bunting, Elvira Primary Care Unavailable Branden Woodward Admitting Unavail able Branden Woodward Attending Unavail able Branden Woodward Admitting Unavail able Bunting, Elvira Primary Care Unavailable Allergies Allergy Classification Reported Allergen(s) Allergy Type Date of Onset Reaction(s) Facility (1 source) No Known Medication Allergies; Translations: [No Known Medication Allergies] Propensity to adverse reactions (disorder) [facility] Medications Current Medications Medication Drug Class(es) Dates Sig (Normalized) Sig (Original) amylase 395015 unt / lipase 70435 unt / protease 33469 unt delayed release oral capsule (3 sources) Start: 11-12-2022 Creon 21948-40396 UNIT as directed Orally 5 TIMES DAILY (ALLOW FOR 3 MEALS AND 2 SNACKS. for 30 days October, Active ascorbic acid 1000 mg oral tablet (8 sources) Vitamin C Start: 12-11-2022 take 1 g by mouth once daily Ascorbic Acid (Vitamin C) (Vitamin C) 1,000 mg Tablet Active 1 GM PO Daily December 11, 2022 12:00am aspirin 81 mg delayed release oral tablet (15 sources) Platelet Aggregation Inhibitor, Nonsteroidal Anti-inflammatory Drug Start: 01-07-2022 take 81 mg by mouth once daily Aspirin Active 81 MG PO Daily December 11, 2022 12:00am Start: 05-24-2020 aspirin 81 mg oral tablet Refills(s) 0 Start Date: 05/24/20 Status: Ordered take 1 tablet by elsy th once daily Baby Aspirin 81 MG 1 tablet Orally Once a day Active Black Elderberry (5 sources) Start: 12-11-2022 take 2000 mg by mout h once daily Black Elderberry Active 2000 MG PO Daily December 10, 2022 11:00pm Start: 12-11-2022 take 2000 mg by mout h once daily Black Elderberry Active 2000 MG PO Daily December 11, 2022 12:00am Black Elderberry Active cholecalciferol 0.025 mg chewable tablet (8 sources) Vitamin D Start: 12-11-2022 take 1 [...] 0 Active Elderberry preparation (2 sources) Start: take 1 mg by mouth once daily elderberry mg, Oral, Daily, Refill(s) 0 Start Date: 05/27/23 Status: Ordered finasteride 5 mg oral tablet (3 sources) 5-alpha Reductase Inhibitor Start: 3 take 1 tablet by mouth once daily finasteride 5 mg Tab 5 mg = 1 tab(s), Oral, Daily, # 30 tab(s), Refills(s) 11, Pharmacy: [facility]/pharmacy #[id number], 178, cm, 05/27/23 9:52:00 EST, Height/Length Dosing, 80, kg, 05/27/23 9:52:00 EST, Weight Dosing Start Date: 05/27/23 Status: Ordered Start: 02-25-2023 take 1 tablet by elsy once daily finasteride 5 mg Tab 5 mg = 1 tab(s), Oral, Daily, # 30 tab(s), Refills(s) 11, Pharmacy: [facility]/pharmacy #[id number], 178, cm, 02/25/23 9:11:00 EDT, Height/Length Dosing, 80, kg, 02/25/23 9:11:00 EDT, Weight Dosing Start Date: 02/25/23 Status: Ordered metoprolol tartrate 25 mg oral tablet (20 sources) beta-Adrenergic Sebas Start: 12-11-2022 take 25 mg by mouth twice daily Metoprolol Tartrate Active 25 MG PO Twice daily December 11, 2022 12:00am Start: 03-24-2017 End: 04-13-2018 take 25 mg by mouth once daily Metoprolol Tartrate Dis continued 25 MG PO Daily March 24, 2017 12:00am April 13, 2018 4:18pm Start: 02-07-2015 End: 05-10-2019 take 25 mg by mouth twice daily Metoprolol Tartrate Di scontinued 25 MG PO Twice daily April 15, 2018 12:00am May 10, 2019 1:02am take 1 tablet by elsy twice daily Metoprolol Succinate ER 25 MG 1 tablet Orally TWICE A D AY Active Comment on above: Take 1 tablet by elsy th twice daily. [facility] Prescription (8 sources) Start: 9 [facility] Prescription Septra 1 tablet by mouth MWF Start Date: 04/19/19 Status: Ordered omeprazole 40 mg delayed release oral capsule (5 sources) Proton Pump Inhibitor Start: 3 take 40 mg by mouth once daily Omeprazole Active 40 MG PO Daily 90 December 11, 2022 12:00am Oxybutinin XL 5mg (4 sources) Oxybutinin XL 5m g Active oxybutynin chloride 5 mg oral tablet (15 sources) Cholinergic Muscarinic Antagonist Start: 3 take 5 mg by mouth twice daily Oxybutynin Chloride Active 5 MG PO Twice daily December 11, 2022 12:00am Start: 02-26-2022 take 1 tablet by elsy th at bedtime oxybutynin 5 mg Tab 5 mg = 1 tab(s), Oral, Bedtime, # 30 tab(s), Refills(s) 11, Pharmacy: [facility]/pharmacy #[id number], 185, cm, 02/26/22 15:00:00 EDT, Height/Length [...] mg / trimethoprim 160 mg oral tablet (20 sources) Dihydrofolate Reductase Inhibitor Antibacterial, Sulfonamide Antimicrobial [...] TH DAILY ON THURSDAY, THURSDAY, AND THURSDAY Sulfamethoxazole-TMP DS (4 sources) Sulfamethoxazole -TMP DS Active tacrolimus 1 mg oral capsule (20 sources) Calcineurin Inhibitor Immunosuppressant Start: 11-05-2022 End: 10-25-2023 tacrolimus IR (PROGRAF) [...] Daily, # 30 tab(s), Refills(s) 11, Pharmacy: [facility]/pharmacy #[id number], 185, cm, 09/10/22 9:37:00 EDT, Height/Length Dosing, 99, kg, 09/10/22 9:37:00 EDT, Weight Dosing Start Date: 09/10/22 Status: Ordered tamsulosin hydrochloride 0.4 mg oral capsule (1 source) alpha-Adrenergic Sebas take 1 capsule by mouth twice daily tamsulosin (Flomax) 0.4 mg 24 hr capsule Take 1 capsule (0.4 mg) by mouth 2 times a day. 0 Active terazosin 5 mg oral capsule (13 sources) alpha-Adrenergic Sebas Start: 06-21-19 take 5 [...] capsule Orally Once a day Active Zenpep 40545 UNIT (1 source) Start: 01-01-2023 Zenpep 07662 U NIT 1 WITH EACH MEAL & 1 WITH UP TO 2 SNACKS Orally 5 TIMES A DAY for 30 days Dec, Active Zinc (6 sources) Start: 05-27-2023 take 1 mg by [...] Sig (Original) acetaminophen 325 mg oral tablet (7 sources) Start: 04-15-2018 End: 12-11-2022 take 650 mg by mouth every six hours Acetaminophen Discontinued 650 MG PO Q6H 30 10 April 15, 2018 12:00am December 11, 2022 11:33am amLODIPine 5 mg oral tablet (20 sources) Dihydropyridine Calcium Channel Sebas Start: 02-18-2017 End: 12-11-2022 Amlodipine Discontinued TABLET April 13, 2018 12:00am April 13, 2018 8:46pm Comment on above: Take 1 tablet by elsy th once daily. Black Elderberry(Garcia-Fl ower) CAPS (3 sources) Black Elderberry(Garcia-F lower) CAPS 2000 mg daily Quantity: 0 Refills: 0 Ordered: 27-Mar-2022 DO Active polyethylene glycol 3350 327898 mg / potassium chloride 2970 mg / sodium bicarbonate 6740 mg / sodium chloride 5860 mg / sodium sulfate 94706 mg powder for oral solution (4 sources) Osmotic Laxative Start: 11-05-2022 take 236 g by mouth once Golytely 236 GM as directed Orally once for 1 days October, Not-Taking Sulfamethoxazole-TM P DS TABS (3 sources) Sulfamethoxazole -T MP DS TABS TAKE 1 TABLET DAILY ON THURSDAY, THURSDAY, AND THURSDAY. Quantity: 0 Refills: 0 Ordered: 27-Mar-2022 DO Active Trimethoprim-Sulfam ethoxazole (7 sources) Start: 03-24-2017 End: 04-13-2018 take 1 tablet by mouth three times weekly Trimethoprim-Sulfa methoxazole Discontinued 1 TAB PO 3 Times a [...] 12-24-2021 Chronic Cardiac arrest and ventricular fibrillation (7 sources) EKG: asystole; Translations: [Cardiac arrest, cause unspecified] 04-14-2018 Chronic Cardiac dysrhythmias (16 sources) Sick sinus syndrome; Translations: [Sinoatrial node dysfunction] Onset: 04-09-2023 04-14-2018 Chronic Conduction disorders (11 sources) Cardiac pacemaker in situ; Translations: [Cardiac [...] hyperlipidemia] Onset: 01-27-2022 12-21-2018 Chronic Essential hypertension (18 sources) Essential (primary) hypertension; Translations: [Essential hypertension] [...] Translations: [MAGNESIUM DEFICIENCY] Onset: 10-23-2022 Episodic Osteoporosis (4 sources) Primary osteoporosis; Translations: [Age-related osteoporosis without current pathological fracture] Chronic Other aftercare (1 source) Encounter for aftercare following liver transplant; Translations: [ENC AFTERCARE FLW LIVER TRANSPLANT] Onset: 10-23-2022 Chronic Other aftercare (8 sources) Long-term current use of anticoagulant 11-24-2019 Episodic Other aftercare (1 source) 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; Translations: [PENITENTIARY CURRENT USE OF ASPIRIN] Onset: 09-29-2022 Episodic Other aftercare (1 source) 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 therapy; Translations: [OTH HIDE TRIMMER CURRENT DRUG THERAPY] Onset: 09-29-2022 Episodic Other diseases of bladder and urethra (4 sources) Other specified disorders of bladder; Translations: [OTHER SPECIFIED DISORDERS BLADDER] Onset: 09-26-2022 Chronic Other diseases of kidney and ureters (2 sources) Urinary tract obstruction; Translations: [Other obstructive and reflux uropathy] Onset: 12-24-2021 Episodic Other diseases of veins and lymphatics (7 sources) Peripheral venous insufficiency; Translations: [Venous insufficiency [...] Episodic Comment on above: quit around ; Syncope (7 sources) Cardiac syncope; Translations: [Syncope and collapse] 04-14-2018 Episodic Unclassified (1 source) Shortness of breath / [...] cardiac pacemaker pulse generator [battery]] Onset: 05-04-2023 Urinary tract infections (1 source) Urinary tract [...] 11-10-2012 11-10-2012 Episodic Other aftercare (1 source) nursing home (current) use of anticoagulants; Translations: [HIDE TRIMMER CURRNT USE ANTICOAGULANTS] Onset: 01-27-2022 Episodic Other and unspecified benign neoplasm (13 sources) History of polyp of colon; Translations: [Personal history of colonic polyps] Onset: 02-18-2017 02-18-2017 Episodic Other gastrointestinal disorders (2 sources) Ascites; Translations: [Other ascites] Onset: 11-10-2012 Resolved: 02-18-2017 02-18-2017 Episodic Other infections; including parasitic (9 sources) [...] status] Onset: 08-14-2012 Resolved: 02-18-2017 06-10-2021 Chronic Unclassified (1 source) Onset: 04-10-2023 04-10-2023 Unclassified (2 sources) Drug therapy finding; Translations: [DVT prophylaxis] Onset: 08-14-2012 Resolved: 02-18-2017 06-10-2021 Results Test Name Value Interpretation Reference Range Facility Tacrolimus Bld-mCncon 2023 Tacrolimus (Bld) [Mass/Vol] 6.7 ng/mL Normal 5.0-20.0 [facility] Comment on above: Order Comment: Allegra [...] i. Performed By: #### 1 1253-2 #### [facility] CLIA [id number] [address] [place] [address] [place] Tacrolimus Bld-mCncon 2023 Tacrolimus (Bld) [Mass/Vol] 5.1 ng/mL Normal 5.0-20.0 [facility] Comment on above: Order Comment: Allegra [...] i. Performed By: #### 1 1253-2 #### [facility] CLIA [id number] [address] [place] [address] CNPNon 07-27-2023 CNPN Telephone (TXCTMN) SUSAN SHERMAN ([id number]) 1950 M Date Time Provider Department 07/27/23 YULISA LEWIS TXCTMN During your visit today, we recorded the following information about you: Yulisa Lewsi RN 07/27/2023 4:02 PM Signed Tacrolimus PA submitted via Plated website. [place]: [id number] Awaiting coverage determination. Yulisa Lewis RN, BSN, [facility] Yulisa Lewis RN 07/28/2023 1:58 PM Signed PA denied, pharmacy was billing incorrectly. Medicare paid for OLT and tacrolimus should be billed under part B. Pharmacy billing incorrectly. Yulisa Lewis RN, BSN, [facility] Allergies As of Date: 07/27/2023 (No Known Allergies) Date Reviewed: 04/16/2020 Reviewed by: Latisha Hernandez (Rn), RN - Fully Assessed Reason for Visit: Insurance Authorization [[id number]] Cmt: Tacrolimus Prescriptions as of 07/28/2023 - [...] REYES 02/11/2012 Problem List As Of Date 07/27/2023 Noted Resolved Bacteremia [R78.81] 01/06/2007 02/18/2017 Other streptococcus infection in conditions cla*01/06/2007 02/18/2017 Cirrhosis of liver without mention of alcohol [*10/18/2007 02/18/2017 UNILAT INGUINAL HERNIA [K40.90] 02/02/2008 SUMMARY [V999.95] 08/14/2012 Hepatic encephalopathy (HCC) [K76.82] 08/14/2012 02/18/2017 DVT prophylaxis [ZBD6334] 08/14/2012 02/18/2017 Mechanically assisted ventilation [Z99.11] 08/14/2012 [...] Status:Closed by YULISA LEWIS on 07/28/23 Normal [facility] Tacrolimus Bld-mCncon 2023 Tacrolimus (Bld) [Mass/Vol] 6.2 ng/mL Normal 5.0-20.0 [facility] Comment on above: Order Comment: Speci [...] situation. Test performed by chemiluminescent immunoassay using Proxama Alinity i. Performed By: #### 1 1253-2 #### [facility] CLIA [id number] [address] [place] [address] [place]enson 05-29-2023 Screens [id number]#1.0 0TIFF Normal [facility] Screens [id number]#1.0 0TIFF Normal [facility] Ambulatory Visit Summaryon 1 07-28-2022 Ambulatory Visit Summary SUSAN SHERMAN :1950 Visit Date:05/27/2023 Ambulatory Visit Instructions Your Diagnosis BPH with urinary obstruction Elevated PSA Feeling of incomplete bladder emptying ED (erectile dysfunction) Other obstructive and reflux uropathy Tests Performed Urnls Dip Stick Auto w/o Microscopy POC 14627 Your Care Team Attending Physician - Sugey [...] Chandler CHAVEZ, TAMEKA Mendoza, URO When: In 9 months Comments: w/PSA [...] Urnls Dip Stick Auto w/o Microscopy POC 95353 (05/27/2023) Bilirubin Urine Dipstick - Negative Blood Urine Dipstick - Negative Glucose Urine Dipstick - Negative Ketones Urine Dipstick - Negative Leukocytes Urine Dipstick - Trace Nitrite Urine Dipstick - Negative Protein Urine Dipstick - Negative Specific [place] Urine Dipstick - 1.025 Urine Appearance Urine [...] older than (more content not included)... Normal [facility] Patient Educationon 05-27-20 23 Patient Education Urology [...] Follow these instructions at home: ? Take ymwu-eme-kocztvo and prescription medicines only as told by [...] the medicine (more content not included)... Normal [facility] Urology Office/Clinic Noteon 05-27-2023 Urology Office/Clinic [...] TRUS prostate Bx: 03/2017, 05/2018 - HGPIN / cores L base, 10/2019, 01/22/2022 (vol 84-92 [...] the patient (more content not included)... Normal [facility] Comment on above: Result Comment: Elec tronically Signed By: Sugey Arteaga MD\.br\Date and Time Signed: 05/27/23 12:15 EST\.br\Electronically Co-Signed By: Marizol Francis\.br\Date and Time Co-Signed: 05/27/23 10:37 EST Tacrolimus Bld-mCncon 2022 Tacrolimus (Bld) [Mass/Vol] 6.1 ng/mL Normal 5.0-20.0 [facility] Comment on above: Order Comment: Speci [...] i. Performed By: #### 1 1253-2 #### [facility] CLIA [id number] [address] [place] [address] [place] Ambulatory Visit Summaryon 0 02-25-2023 Ambulatory Visit Summary SUSAN SHERMAN :1950 Visit Date:02/25/2023 Ambulatory Visit Instructions Your Diagnosis BPH with urinary obstruction Elevated PSA Feeling of incomplete bladder emptying ED (erectile dysfunction) Tests Performed Urnls Dip Stick Auto w/o Microscopy POC 76392 Your Care Team Attending Physician - Sugey [...] See instructions Septra 1 tablet by mouth MW Contact prescribing physician if questions or concerns Unchanged tacrolimus 1 Milligram By Mouth 2 times a day Contact prescribing physician if questions or concerns Unchanged terazosin (terazosin 5 mg Cap) Contact prescribing physician if questions or concerns Test Results Urnls Dip Stick Auto w/o Microscopy POC 47061 (02/25/2023) Bilirubin Urine Dipstick - Negative Blood Urine Dipstick - Negative Glucose Urine Dipstick - Negative Ketones Urine Dipstick - Trace - 5 mg/dl Leukocytes Urine Dipstick - Negative Nitrite Urine Dipstick - Negative Protein Urine Dipstick - Negative Specific [place] Urine Dipstick - 1.025 Urine Appearance Urine [...] prostate cance (more content not included)... Normal [facility] Patient Educationon 02-26-20 23 Patient Education [...] Where to find more information ? The [place] [employer]: www.cancer.org ? [place] [employer]: www.auanet.org Contact a health care [...] adds flu (more content not included)... Normal [facility] Screenson 02-25-2023 Screens [id number]#1. 00CD:127 Normal [facility] Screens [id number]#1. 00CD:127 Normal [facility] Urology Office/Clinic Noteon 02-25-2023 Urology Office/Clinic [...] educating the (more content not included)... Normal [facility] Comment on above: Result Comment: Elec tronically Signed By: Sugey Arteaga MD\.br\Date and Time Signed: 02/25/23 10:46 EDT\.br\Electronically Co-Signed By: Marizol Francis\.br\Date and Time Co-Signed: 02/25/23 09:49 EDT\.br\Electronically Co-Signed By: Marizol Francis\.br\Date and Time Co-Signed: 02/25/23 09:50 EDT CNCOon 02-23-2023 CNCO Letter Text Normal [facility] Wilbert 02-23-2023 CNPN Telephone (TXCTMN) SUSAN SHERMAN ([id number]) 1950 M Date Time Provider Department 02/23/23 [...] patent and also faxed to local lab [phone]. Pt verbalized understanding, no further questions at this time. Yulisa Lewis, RN, BSN, [facility] Allergies As of Date: 02/23/2023 (No Known [...] Status:Closed by YULISA LEWIS on 02/23/23 Normal [facility] Lab Reportson 02-20-2023 Lab Reports [id number]#1.0 0CD:127 Normal [facility] Tacrolimus Bld-mCncon 2022 Tacrolimus (Bld) [Mass/Vol] 6.5 ng/mL Normal 5.0-20.0 [facility] Comment on above: Order Comment: Speci [...] i. Performed By: #### 1 1253-2 #### [facility] CLIA [id number] [address] [place] [address] [place] RAD - MRI Reporton RAD - MRI Report [id number]#1.0 0CD:127 Normal [facility] Creatinine (Bld) [Mass/Vol]O rdered By: Sugey Arteaga on 11-11-2022 Creatinine [Mass/Vol] 1.5 mg/dL 0.6-1.3 [facility] Comment on above: ER/ESD physician is notified/shown all ISTAT results.Critical values may be confirmed by laboratory testing ifdeemed necessary by ER attending doctor. C reactive protein [Mass/vol ume] in Serum or PlasmaOrdered By: Sheila Magallanes on 11-06-2022 CRP [Mass/Vol] < 0.5 mg/dL 0.0-0.5 [facility] Calprotectin [Mass/mass] in StoolOrdered By: Sheila Magallanes on 11-06-2022 Calprotectin (Stl) [Mass/Mass] 31 ug/g 0-120 [facility] Comment on above: Concentration Interp retation Follow-Up< 5 - 50 ug/g Normal None>50 -120 ug/g Borderline Re-evaluate in 4-6 weeks >120 ug/g Abnormal Repeat as clinically indicatedPerformed at: [facility] [id number] Director: Slim Lewis MD, Phone: [phone] Clostridioides difficile tox in B tcdB gene [Presence] in Stool by LUZ MARIA with probe deteOrdered By: Sheila Magallanes on 11-06-2022 C. difficile toxin B tcdB gene LUZ MARIA+probe Ql (Stl) Negative Negative [facility] Comment on above: Testing performed by RT-PCR Elastase.pancreatic [Mass/ma ss] in StoolOrdered By: Sheila Magallanes on 11-06-2022 Elastase.pancreatic (Stl) [Mass/Mass] 132 >200 [facility] Comment on above: Result Units: ug [address] st./g Severe Pancreatic Insufficiency: <100 Moderate Pancreatic Insufficiency: 100 - 200 Normal: >200Performed at: [facility] [id number] Director: Slim Lewis MD, Phone: [phone] Erythrocyte sedimentation ra te by Photometric methodOrdered By: Sheila Magallanes on 11-06-2022 ESR Photometric method (Bld) [Velocity] < 1 mm/hr 0- [facility] IgA [Mass/volume] in Serum o r PlasmaOrdered By: yung Magallanes on 11-06-2022 IgA [Mass/Vol] 23 mg/dL 61-437 [facility] Comment on above: Result confirmed on concentration.Performed at: [facility] [id number] Director: Jorge Lockwood PhD, Phone: [phone] No Panel InformationOrdered By: Sheila Magallanes on 11-06-2022 Endomysial IgA Antibody Negative Negative F [facility] Ova and Parasite Result 1 [facility] Ova or parasites identificat ionOrdered By: yung Magallanes on 11-06-2022 Ova and parasites identified LM Nom (Unsp spec) [facility] Serum gliadin peptide IgA an tibody assay (units/volume)Ordered By: yung Magallanes on 11-06-2022 Gliadin peptide IgA Qn (S) 5 units 0- [facility] Comment on above: Negative 0 - 19 Weak Positive 20 - 30 Moderate to Strong Positive >30 Serum gliadin peptide IgG an tibody assay (units/volume)Ordered By: yung Magallanes on 11-06-2022 Gliadin peptide IgG Qn (S) 4 units 0- [facility] Comment on above: Negative 0 - 19 Weak Positive 20 - 30 Moderate to Strong Positive >30 Serum tissue transglutaminas e (tTG) IgA antibody assay (units/volume)Ordered By: Sheila Magallanes on 11-06-2022 tTG IgA Qn (S) <2 U/mL 0-3 [facility] Comment on above: Negative 0 - 3 Weak Positive 4 - 10 Positive >10 Tissue Transglutaminase (tTG) has been identified as the endomysial antigen. Studies have demonstr- ated that endomysial IgA antibodies have over 99% specificity for gluten sensitive enteropathy. Serum tissue transglutaminas e (tTG) IgG antibody assay (units/volume)Ordered By: Sheila Magallanes on 11-06-2022 tTG IgG Qn (S) <2 U/mL 0-5 [facility] Comment on above: Negative 0 - 5 Weak Positive 6 - 9 Positive >9 Stool bacteria identificatio n by cultureOrdered By: Sheila Magallanes on 11-06-2022 Bacteria identified Cx Nom (Stl) [facility] Stool sodium measurement (mo les/volume)Ordered By: Sheila Magallanes on 11-06-2022 Sodium (Stl) [Moles/Vol] See comment [facility] Comment on above: See report. Scanned copy available in EMR. Thyrotropin [Units/volume] i n Serum or PlasmaOrdered By: Sheila Magallanes on 11-06-2022 TSH Qn 3.51 m[IU]/L 0.45-5.33 [facility] HEP C RNA BY PCR QUANT (NON- GRAPHICAL) Won 10-21-2022 HCV Genotype RTNI Normal [facility] Comment on above: Result Comment: Not indicated Performed By: #### MERLE CULVER #### [facility] [address] [place] [address] Dr. Yogi Naidu HCV log10 UPTCAL Normal [facility] Comment on above: Result Comment: Unab le to calculate result since non-numeric result obtained for component test. Performed By: #### MERLE CULVER #### [facility] [address] [address] [address] Yogi Naidu Hepatitis C Quantitation Not detected Normal [facility] Comment on above: Performed By: #### MERLE CULVER #### [facility] [address] [place] [address] Dr. Yogi Naidu Test Information: Comment Normal [facility] Comment on above: Result Comment: The quantitative range of this assay is 15 IU/mL to 100 million IU/mL. Performed By: #### E MERLE DE OLIVEIRA #### [facility] Laboratory [address] [place] [address] Dr. Yogi Naidu BOX TEST SENT OUTon 10-21-19 23 SENT TO REF LAB 10/20/2022 Normal [facility] Comment on above: Performed By: #### B OX #### [facility] [address] [place] [address] Dr. Yogi Naidu CBC AUTO DIFFon 10-20-2022 BASO # 0.1 103/ul Normal 0.0-0.1 [facility] Comment on above: Performed By: #### C BC #### [facility] [address] [place] [address] Dr. Yogi Naidu Basophils/100 WBC (Bld) 1.1 % Normal 0.2-2.0 [facility] Comment on above: Performed By: #### C BC #### [facility] [address] [place] [address] Dr. Yogi Naidu EO # 0.2 103/ul Normal 0.0-0.7 [facility] Comment on above: Performed By: #### C BC #### [facility] [address] [place] [address] Dr. Yogi Naidu Eosinophils/100 WBC (Bld) 3.6 % Normal 0.9-7.0 [facility] Comment on above: Performed By: #### C BC #### [facility] [address] [place] [address] Dr. Yogi Naidu Erythrocyte distribution width (RBC) [Ratio] 14.2 % Normal 11.0-15.0 [facility] Comment on above: Performed By: #### C BC #### [facility] [address] [place] [address] Dr. Yogi Naidu Hematocrit (Bld) [Volume fraction] 45.4 % Normal 42.0-54.0 [facility] Comment on above: Performed By: #### C BC #### [facility] [address] [place] [address] Dr. Yogi Naidu Hemoglobin (Bld) [Mass/Vol] 15.0 g/dL Normal 14.0-18.0 [facility] Comment on above: Performed By: #### C BC #### [facility] [address] [place] [address] Dr. Yogi Naidu IG # 0.02 10e3/ul Normal 0.00-0.03 [facility] Comment on above: Performed By: #### C BC #### [facility] [address] [place] [address] Dr. Yogi Naidu IG % 0.4 % Normal 0.0-0.5 [facility] Comment on above: Performed By: #### C BC #### [facility] [address] [place] [address] Dr. Yogi Naidu LYMPH # 0.7 103/ul Critically low 1.2-3.8 [facility] Comment on above: Performed By: #### C BC #### [facility] [address] [place] [address] Dr. Yogi Naidu Lymphocytes/100 WBC (Bld) 13.3 % Critically low 20.5-60.0 [facility] Comment on above: Performed By: #### C BC #### [facility] [address] [place] [address] Dr. Yogi Naidu MANUAL DIFF REQ NO Normal [facility] Comment on above: Performed By: #### C BC #### [facility] [address] [place] [address] Dr. Yogi Naidu MCH (RBC) [Entitic mass] 29.7 pg Normal 25.9-34.0 [facility] Comment on above: Performed By: #### C BC #### [facility] [address] [place] [address] Dr. Yogi Naidu MCHC (RBC) [Mass/Vol] 33.0 g/dL Normal 29.9-35.2 [facility] Comment on above: Performed By: #### C BC #### [facility] [address] [place] [address] Dr. Yogi Naidu MCV (RBC) [Entitic vol] 89.9 fL Normal 80.0-94.0 [facility] Comment on above: Performed By: #### C BC #### [facility] [address] [address] [address] Yogi Naidu MONO # 0.3 103/ul Normal 0.3-0.8 [facility] Comment on above: Performed By: #### C BC #### [facility] [address] [address] [address] Yogi Naidu Monocytes/100 WBC (Bld) 5.8 % Normal 1.7-12.0 [facility] Comment on above: Performed By: #### C BC #### [facility] [address] [place] [address] Dr. Yogi Naidu NEUT # 4.1 103/ul Normal 1.4-6.5 [facility] Comment on above: Performed By: #### C BC #### [facility] [address] [place] [address] Dr. Yogi Naidu Neutrophils/100 WBC (Bld) 75.8 % Critically high 43.0-75.0 [facility] Comment on above: Performed By: #### C BC #### [facility] [address] [place] [address] Dr. Yogi Naidu Platelet mean volume (Bld) [Entitic vol] 9.3 fL Critically low 9.5-13.5 [facility] Comment on above: Performed By: #### C BC #### [facility] [address] [place] [address] Dr. Yogi Naidu PLT 174 103/ul Normal 150-450 [facility] Comment on above: Performed By: #### C BC #### [facility] [address] [place] [address] Dr. Yogi Naidu RBC 5.05 106/ul Normal 4.70-6.10 [facility] Comment on above: Performed By: #### C BC #### [facility] [address] [place] [address] Dr. Yogi Naidu WBC 5.4 103/ul Normal 4.0-11.0 [facility] Comment on above: Performed By: #### C BC #### [facility] [address] [address] [address] Yogi Naidu GGTon 10-20-2022 Gamma glutamyl transferase [Catalytic activity/Vol] 28 U/L Normal 15-85 [facility] Comment on above: Performed By: #### C MP, MG, PHOS, GGT #### [facility] [address] [address] [address] Yogi Naidu LIPID PROFILEon 10-20-2022 CHOL-HDL RATIO NORM SEE BELOW Normal [facility] Comment on above: Result Comment: 3.3 - 4.4 LOW RISK 4.4 - 7.1 AVERAGE RISK 7.1 - 11.0 MODERATE RISK >11.0 HIGH RISK Performed By: #### C MP, MG, PHOS, GGT #### [facility] [address] [place] [address] Dr. Yogi Naidu Cholesterol [Mass/Vol] 195 mg/dL Normal <=200 [facility] Comment on above: Performed By: #### C MP, MG, PHOS, GGT #### [facility] [address] [place] [address] Dr. Yogi Naidu Cholesterol in HDL [Mass/Vol] 50 mg/dL Normal 40-60 [facility] Comment on above: Performed By: #### C MP, MG, PHOS, GGT #### [facility] [address] [place] [address] Dr. Yogi Naidu Cholesterol in LDL [Mass/Vol] 131.6 mg/dL Normal [facility] Comment on above: Performed By: #### C MP, MG, PHOS, GGT #### [facility] [address] [place] [address] Dr. Yogi Naidu Cholesterol.total/Choles terol in HDL [Mass ratio] 3.9 {ratio} Normal [facility] Comment on above: Performed By: #### C MP, MG, PHOS, GGT #### [facility] [address] [place] [address] Dr. Yogi Naidu HDL NORMAL > or = 60 mg/dl - LO W CARDIOVASCULAR RISK <40 mg/dl - HIGH CARDIOVASCULAR RISK Normal [facility] Comment on above: Performed By: #### C MP, MG, PHOS, GGT #### [facility] [address] [place] [address] Dr. Yogi Naidu LDL CALC NORMAL SEE BELOW Normal [facility] Comment on above: Result Comment: <100 mg/dl OPTIMAL 100 - 129 mg/dl NEAR OR ABOVE OPTIMAL 130 - 159 mg/dl BORDERLINE HIGH 160 - 189 mg/dl HIGH >190 mg/dl VERY HIGH Performed By: #### C MP, MG, PHOS, GGT #### [facility] [address] [place] [address] Dr. Yogi Naidu Triglyceride [Mass/Vol] 67 mg/dL Normal <=150 [facility] Comment on above: Performed By: #### C MP, MG, PHOS, GGT #### [facility] [address] [place] [address] Dr. Yogi Naidu VLDL CALC 13.4 mg/dL Normal [facility] Comment on above: Performed By: #### C MP, MG, PHOS, GGT #### [facility] [address] [place] [address] Dr. Yogi Naidu MAGNESIUMon 10-20-2022 Magnesium [Mass/Vol] 1.8 mg/dL Normal 1.8-2.4 [facility] Comment on above: Performed By: #### C MP, MG, PHOS, GGT #### [facility] [address] [place] [address] Dr. Yogi Naidu PHOSPHORUSon 10-20-2022 Phosphate [Mass/Vol] 3.2 mg/dL Normal 2.6-4.7 [facility] Comment on above: Performed By: #### C MP, MG, PHOS, GGT #### [facility] [address] [place] [address] Dr. Ygoi Naidu PROF 14(COMP METB)on 023 Albumin [Mass/Vol] 3.8 g/dL Normal 3.4-5.0 [facility] Comment on above: Performed By: #### C MP, MG, PHOS, GGT #### [facility] [address] [place] [address] Dr. Yogi Naidu Albumin/Globulin [Mass ratio] 1.5 {ratio} Normal [facility] Comment on above: Performed By: #### C MP, MG, PHOS, GGT #### [facility] [address] [place] [address] Dr. Yogi Naidu ALP [Catalytic activity/Vol] 64 U/L Normal 46-116 [facility] Comment on above: Performed By: #### C MP, MG, PHOS, GGT #### [facility] [address] [place] [address] Dr. Yogi Naidu ALT [Catalytic activity/Vol] 21 U/L Normal 16-63 [facility] Comment on above: Performed By: #### C MP, MG, PHOS, GGT #### [facility] [address] [place] [address] Dr. Yogi Naidu Anion gap [Moles/Vol] 12.6 mmol/L Normal [facility] Comment on above: Performed By: #### C MP, MG, PHOS, GGT #### [facility] [address] [place] [address] Dr. Yogi Naidu AST [Catalytic activity/Vol] 14 U/L Critically low 15-37 [facility] Comment on above: Performed By: #### C MP, MG, PHOS, GGT #### [facility] [address] [place] [address] Dr. Yogi Naidu Bilirubin [Mass/Vol] 0.6 mg/dL Normal 0.2-1.0 [facility] Comment on above: Performed By: #### C MP, MG, PHOS, GGT #### [facility] [address] [place] [address] Dr. Yogi Naidu Calcium [Mass/Vol] 9.1 mg/dL Normal 8.5-10.1 [facility] Comment on above: Performed By: #### C MP, MG, PHOS, GGT #### [facility] [address] [place] [address] Dr. Yogi Naidu Chloride [Moles/Vol] 110 mmol/L Critically high 98-107 [facility] Comment on above: Performed By: #### C MP, MG, PHOS, GGT #### [facility] [address] [address] [address] Yogi Naidu CO2 [Moles/Vol] 27.6 mmol/L Normal 21.0-32.0 [facility] Comment on above: Performed By: #### C MP, MG, PHOS, GGT #### [facility] [address] [place] [address] Dr. Yogi Naidu Creatinine [Mass/Vol] 1.06 mg/dL Normal 0.70-1.30 [facility] Comment on above: Performed By: #### C MP, MG, PHOS, GGT #### [facility] [address] [place] [address] Dr. Yogi Naidu EGFR-AF JORDANIAN >60 Normal >=60 [facility] Comment on above: Performed By: #### C MP, MG, PHOS, GGT #### [facility] [address] [place] [address] Dr. Yogi Naidu EGFR-NON AF JORDANIAN >60 Normal >=60 [facility] Comment on above: Performed By: #### C MP, MG, PHOS, GGT #### [facility] [address] [place] [address] Dr. Yogi Naidu Globulin (S) [Mass/Vol] 2.6 g/dL Normal [facility] Comment on above: Performed By: #### C MP, MG, PHOS, GGT #### [facility] [address] [place] [address] Dr. Yogi Naidu Glucose [Mass/Vol] 106 mg/dL Normal 74-106 [facility] Comment on above: Performed By: #### C MP, MG, PHOS, GGT #### [facility] [address] [place] [address] Dr. Yogi Naidu Potassium [Moles/Vol] 4.2 mmol/L Normal 3.5-5.1 [facility] Comment on above: Performed By: #### C MP, MG, PHOS, GGT #### [facility] [address] [place] [address] Dr. Yogi Naidu Protein [Mass/Vol] 6.4 g/dL Normal 6.4-8.2 [facility] Comment on above: Performed By: #### C MP, MG, PHOS, GGT #### [facility] [address] [place] [address] Dr. Yogi Naidu Sodium [Moles/Vol] 146 mmol/L Critically high 136-145 [facility] Comment on above: Performed By: #### C MP, MG, PHOS, GGT #### [facility] [address] [place] [address] Dr. Yogi Naidu Urea nitrogen [Mass/Vol] 20.0 mg/dL Critically high 7.0-18 .0 [facility] Comment on above: Performed By: #### C MP, MG, PHOS, GGT #### [facility] [address] [place] [address] Dr. Yogi Naidu Urea nitrogen/Creatinine [Mass ratio] 18.9 mg/mg Normal [facility] Comment on above: Performed By: #### C MP, MG, PHOS, GGT #### [facility] [address] [place] [address] Dr. Yogi Naidu Physician Orderon 10-10-2022 Physician Order [id number]#1.0 0CD:127 [facility] Lab Reportson 10-09-2022 Lab Reports [id number]#1.0 0CD:127 Normal [facility] Prostate specific Ag [Mass/v olume] in Serum or PlasmaOrdered By: Sugey Arteaga on 10-09-2022 Prostate specific Ag [Mass/Vol] 48.840 ng/mL 0.000-4.000 [facility] Screenson 10-09-2022 Screens [id number]#1.00 CD:127 Normal [facility] Screens [id number] CD:127 Normal [facility] Ambulatory Visit Summaryon 0 10-08-2022 Ambulatory Visit Summary GEORGE, SUSAN L :1950 Visit Date:10/08/2022 Ambulatory Visit Instructions Your Diagnosis BPH with urinary obstruction Elevated PSA Feeling of incomplete bladder emptying ED (erectile dysfunction) Tests Performed Urnls Dip Stick Auto w/o Microscopy POC 43400 Your Care Team Attending Physician - Sugey [...] Chandler CHAVEZ, Sugey Cummins, URL, URO When: Where: [address] [place] [address]- [phone] Medications What How Much When Instructions Unchanged [...] Urnls Dip Stick Auto w/o Microscopy POC 90567 (10/08/2022) Bilirubin Urine Dipstick - Negative Blood Urine Dipstick - Negative Glucose Urine Dipstick - Trace 100 mg/dl Ketones Urine Dipstick - Negative Leukocytes Urine Dipstick - 1+ Small Nitrite Urine Dipstick - Negative Protein Urine Dipstick - Negative Specific [place] Urine Dipstick - 1.025 Urine Appearance Urine [...] including vitamins, herbs, eye drops, creams, and fmho-qvx-rqnbfau medicines. ? Any problems you or family [...] Erectile dysfunction (more content not included)... Normal [facility] Patient Educationon 10-09-19 23 Patient [...] including vitamins, herbs, eye drops, creams, and yvhj-gbp-xiavfdr medicines. ? Any problems you or family [...] tells you to take them. ? Taking wtet-umb-isnkwyq medicines, vitamins, herbs, and supplements. Surgery safety [...] care (more content not included)... Normal [facility] Urology Office/Clinic Noteon 10-08-2022 Urology [...] increase. -Scheduled for MRI Pacemaker check at [facility] on 10/09/2022 at 10:00am If ok, proceed [...] Information Chandler CHAVEZ, Sugey Cummins, URL, URO [address] [place] [address] [phone] Additional Instructions: Pt will f/u after MRI Pacemaker check Patient Education Transurethral Resection of the Prostate I, Anny Hogan , personally scribed for Dr. Arteaga on 10/08/2022 08:47:05. . Documentation recorded by the scribeAnny, accurately reflects the services(s) I performed and [...] biopsy of (more content not included)... Normal [facility] Comment on above: Result Comment: Elec [...] F Nitrofurantoin <=16 S F Normal [facility] Comment on above: Performed By: #### C MP, MG, PHOS, GGT #### [facility] [address] [place] [address] Dr. Yogi Naidu ER URINE PROFILEon 3 Bilirubin Ql (U) Negative Normal NEGATIVE [facility] Comment on above: Performed By: #### Vesta DE OLIVEIRA UMICRO #### [facility] [address] [place] [address] Dr. Yogi Naidu Clarity (U) SL CLOUDY Abnormal CLEAR [facility] Comment on above: Performed By: #### DASH CULVERRO #### [facility] [address] [place] [address] Dr. Yogi Naidu Color (U) LT. YELLOW Normal YELLOW [facility] Comment on above: Performed By: #### DASH CULVERRO #### [facility] [address] [place] [address] Dr. Yogi KIRAN A micrscopic examination will be performed if indicated. Normal [facility] Comment on above: Performed By: #### DASH CULVERRO #### [facility] [address] [place] [address] Dr. Yogi Naidu Glucose Ql (U) Negative Normal NEGATIVE [facility] Comment on above: Performed By: #### DASH CULVERRO #### [facility] [address] [place] [address] Dr. Yogi Naidu Hemoglobin Ql (U) Negative Normal NEGATIVE [facility] Comment on above: Performed By: #### Vesta DE OLIVEIRA UMICRO #### [facility] [address] [place] [address] Dr. Yogi Naidu Ketones Ql (U) 15 mg/dl Abnormal NEGATIVE [facility] Comment on above: Performed By: #### Vesta DE OLIVEIRA UMICRO #### [facility] [address] [place] [address] Dr. Yogi Naidu LEUKOCYTES MODERATE Abnormal NEGATIVE [facility] Comment on above: Performed By: #### E RUR, UMICRO #### [facility] [address] [place] [address] Dr. Yogi Naidu Nitrite Ql (U) Negative Normal NEGATIVE [facility] Comment on above: Performed By: #### Vesta DE OLIVEIRA UMICRO #### [facility] [address] [place] [address] Dr. Yogi Naidu pH (U) 5.5 [pH] Normal 5-9 [facility] Comment on above: Performed By: #### Vesta DE OLIVEIRA UMICRO #### [facility] [address] [place] [address] Dr. Yogi Naidu SPEC GRAVITY 1.030 Abnormal 1.005-<=1.02 5 [facility] Comment on above: Performed By: #### Vesta DE OLIVEIRA UMICRO #### [facility] [address] [place] [address] Dr. Yogi Naidu UA PROTEIN TRACE Normal NEGATIVE/ TRACE [facility] Comment on above: Performed By: #### Vesta DE OLIVEIRA UMICRO #### [facility] [address] [place] [address] Dr. Yogi Naidu UR MICRO IND INDICATED Normal [facility] Comment on above: Performed By: #### DASH CULVERRO #### [facility] [address] [place] [address] Dr. Yogi Naidu Urobilinogen Qn (U) 0.2 {Kt'U}/dL Normal 0.2 - 1. 0 [facility] Comment on above: Performed By: #### Vesta DE OLIVEIRA UMICRO #### [facility] [address] [place] [address] Dr. Yogi Naidu URINE MICROSCOPIC ONLYon BACTERIA SMALL Abnormal NONE SEEN [facility] Comment on above: Performed By: #### Vesta DE OLIVEIRA UMICRO #### [facility] [address] [place] [address] Dr. Yogi Naidu Bacteria identified Cx Nom (U) CX ALREADY ORDERED Normal [facility] Comment on above: Performed By: #### DASH CULVERRO #### [facility] [address] [place] [address] Dr. Yogi Naidu CAST NONE SEEN Normal NONE SEEN [facility] Comment on above: Performed By: #### DASH CULVERRO #### [facility] [address] [place] [address] Dr. Yogi Naidu Crystals LM Nom (Urine sed) NONE SEEN Normal NONE SEEN [facility] Comment on above: Performed By: #### DASH CULVERRO #### [facility] [address] [place] [address] Dr. Yogi Naidu Epithelial cells LM Ql (Urine sed) NONE SEEN Normal NONE SEEN /RARE [facility] Comment on above: Performed By: #### DASH CULVERRO #### [facility] [address] [place] [address] Dr. Yogi Naidu MUCOUS NONE SEEN Normal NONE SEEN [facility] Comment on above: Performed By: #### DASH CULVERRO #### [facility] [address] [place] [address] Dr. Yogi Naidu RBC 0-2 Normal 0-2 [facility] Comment on above: Performed By: #### MERLE CULVER #### [facility] [address] [place] [address] Dr. Yogi Naidu WBC 50-75 Abnormal NONE SEEN [facility] Comment on above: Performed By: #### MERLE CULVER #### [facility] [address] [place] [address] Dr. Yogi Naidu Coding Summary.on 09-23-2022 Coding Summary. CD:[id number] Ww +PGhlYWQ+EH5ZUNQzV18po OWvwS5yB0XZLSeEWdflKZD MPAnFDiIdsdNpHV4xuPLaJ XJu IC8+PY4bZIToYkysbEAhx7 Q3eHG6A44aiv8wTGmwdYF9 TZHuMmRtkppqp3rwkMm3OY cuNmluOyBt OJUlnE55HWN8jT54Jt01sQ DprWJdw7lhhKb3TuVyQLOg ZUQ3zHidGYmea3NeEKCyC7 0ncZWju6Q2 MIScwFktpPCiErIxrIL9qK 4xZWdyyoiwg8xygrorCla2 fm33dQJfy4Q9qVF1L1Csvm F4OPFyxVYp UfuhiNNNvE1bcbzhg4hztv dpWvQcRGIaGBt2AYq6JJEp qSryYyPfMZ16CLX0HVXylj KvJ4CiUACz rPqaVxH5z3P8Zr9TA3AJEp xvX1WGHRZVJRyvxXR+PC90 ik37B5TrMivhLmj4IEQlOH J9kLM8lG2n GNReHTnfo0X6sEP5B6Gfhb Gvem4ry4vzFTCeJUmbO41m gDFye0A9HBCeuJN6UFOuvX dqClHowB69 Oyc+XXWjoOkra2LjWynnt5 hos0uzmIe7OzkdNTFngtPv rAwiVXV9t7CxPx1yNASktG K7tGE6sQ5v VxGxXtD0WVcxN698ShVbcH GxNdesW83eW1DdcFW+PHRy Bsj9RWFmjMkdEU9zS9FwLM RpbmctbGVm jDrlEX3gXIEbiqisHXAzpX 1wZRNdK7c6EjMdZcD0MFib P1DsBBEjzkzkCx51dK2vNk ZuDxT4UOcr Q5AscpX2NBPdwYEyAGboJY E5O79yl1W4LPYbXTBgLZI7 kRF9wA9qmKufrbzdgCAaoH sgdmVydGlj JXvyRWzuJ231IYClrPsmFt NvZGluZyBEYXRlOiAgMDQv MTEvMjAyMzwvdGQ+PHRkIH G7eQdrZQIw lQHiHCdkXi9qtSgwxOnoVY 3uNHFgeordWHOfqA6rEUPi qKCesWhyCR7uWPFxqiloz2 55YmJzDFL7 VOAdqGKgV8GoxA1rAtZkHP NuEDUsQ4WtwXGoCVcyZ105 PAqaFbP6GWHfkbBwG4ZzOO FsaWduOiB0 t6O3Ne3Om5XywhskY0EqcY FdFmUnUluoIEv3C8LeWfkr dHI+TR86TWHjZU88AUc8JG J0yIxqWVce PJHyX4PhsA4pSdNkDOIbVV RkOyc+PHRhYmxlIHdpZHRo VCcgTTPoOdYloZueAR1dKk 9yZGVyLWNv zKjvaODbKfMby9nlQLTiPY njFO0dfFooS6VicGJ5FWZo c1w3Qg21U80xO8RzcAT+PG EbcPN2eKQ0 yO4pFfOaMbJ6EBnfS879Av SajDNyCqsfl0omv3gxgFu5 CoO7HQXrbbReeJfoCCN1x7 EvWj20I76s IHdpZHRoPSIxNSUiIHZhbG swva8kmG0vFv0+PGNvbCB3 tQN3xT6nPkImCoD2WKnmB2 49InRvcCIv Jihqa3xkc4varIw4KqWsZG EqvlTqiFplCAO9n6WkKw46 J2VwyGdyl6OzCxg1ci46bQ Ftq5Y7bQU9 F8BhIARjkawmbGQlkLqoXZ 2bJOVzkxpbZIVvkE0sVGIt A3s2QcKsGeG4HWafG1Kwwa D3GBUciEEo MUQcrBXAwI5veurzb7xhdc siUjRrNMOaRCp3VOh8JPVe yGphZdKjDRS5OuM2LEY1gC BmcO5mwXsx hcxkoF7oOre+APH1cRIbaI CXMH9mBsrcwWE+PHRkIHN0 wJiaEUafWIQvbM3wICOvZ7 n1DfBaZnW5 OYkxZ8QkmrL5AUVihTXpTA ShbDLIfS6tjguoq2lgduha LcKcBERkYIu0GBb6BZImiV duOiBsZWZ0 CeL8RXP5wXIsoG6ghUdnxp ensE7fZdx+QmlydGggRGF0 DOd4R6BrPxc8GCVqyGckSX 0ncGFkZGlu Kl4ihGbkiSumPH9aXNRslj ata551VnYwz6swAXXkzSHh PPjhSUC4R15vg9G9KBHqUF XaKLQ4jBS9 dO1wzYbmdsockPVdbZjtkj TbiQfuWMqfNWngR641BFJx dMcdGwYeOZc3E8OtNwf1SP QdmIqqJJ3x bKMqKGgtQs0xoUupkKgwSG 2jKDYhgesip595YhZzb0hs HMEsjJZsIWouFIJ1P46vk2 A2OBUkKAQs ELX3nSQ1aW5foHoqyeffzW VmdDsgdmVydGljYWwtYWxp H100YJUhfEmjBvOgaNc9Y1 MpXnv5VTMl qHyyRE9urRKmJAsiLq6afD fwrSduOI5pDKLhxnslb432 DvQse2paFHTqqYSsHImeCH G4X61ua4O9 IDNbULHeTQM5gKL6fG2uiY lnbjogbGVmdDsgdmVydGlj NWgpQEwvT134JNEfiCioBj BhdGllbnQg BSrbSYo3Q8EaLakiiBX+PC 65BJDkBJ64hCBsbYBun1nm xKf0DbLtYJZiBZQ2dSbcHD kze0UaWJIx T77yrTEgs7G8YHMxwOyeqF FhGjYwhOK8fB5yEXvogzwz o0erndqeLmycc9ypsg48tN 56H16rDAxu ZHRoPSIzMCUiIHZhbGlnbj 9wcY1zEh4+LKGbhZR9tOT1 xK9uMOMcAvA4JWymX133Oq RvcCIvPjxj s9sks9occFf2BeH6KGWjhc FqwVuaDPB8x7VcRn47V34h IHdpZHRoPSIyMCUiIHZhbG ajlg1orZ9d Ii8+XXKeaNR5bUV0lH2pHy EjVgM0XVxxJ724OlFdwTLk SrmqM13jB7UfqUW+PHRyPj b5ZGWalDsy RQ6inTQoYMhlIw5sJHC2Yz TzCrSrLFfjH5JeLTUaybhz ejludDE2OQEpGDKriE91Mk 9udDogMTBw dYBOhG0orucgp9mwkgvgYe GcMTOyFFv0NPm9YHTntMcp GoDcGLW8AxI4VWB9iYIwqA 1hbGlnbjog yQ1dF2ZxQEMvibnhCf32xC 8iIjYwHxM1FFskZtg+QVJQ WHEQNOMZDAXMHA54WB27zI Pgp1X6zUX2 M1HdAGYjxklovirdlTA8JT FhWOSlzM73zYMqMBjvBa1f p2M1q112VZByYHIgeN28Vx 9udDogMTBw gFXTkL4dowoho2vnquibIv OxCUJxQSs2LFn8FTNkyCjs ClYuAIE7QwR1HEB1hHTbnV 1hbGlnbjog xI9wXzm+YSmsPeidTCi7Lt wvdGQ+OJNyXZA8uFymPVfl NMKznL5iDPZlV6v2EfJcNl X0UDulJ4Td ZXIigpctNs00iP7wUcXaTo W2KJyfF6AnfmH4OVLggBWs VOypXDS3T67lz6V4MKGoKE AyQUI7kWE9 vX4frUuzzqwjnTQvoVoanx VxnYpnDVjyNBtaQ223KKCl aBxkIjbfMPtpLXTuYM86KM 17oWKkp6J6 uUE2E1FwASKuqzyrdffjjO Q7IBHtVNKnsW00kCKvZTar He1dk2K2m185IKGrBFXzoD 89Xr3soOne SADfwYGWgX4zafvfu4bppu biXhZdMBMlBTw9VQx6MRBf qNugXiXjZTW8QlU3NJI4oE OslD4caNgm tvswvZ0dFoe+TWFsZTwvdG Q+MUEgOET9aAfkJJdaQAUn oT0gTBSeV0i4VmVrJmM6XV uaA5BaTEOu vqdwEy89mG0yJnJbMrX9SU wzW6HpdwD8QPDnxNEfZOtr AYZ2N12cg6N4QIRsMLCnNO U7eTV7uI2q bGlnbjogbGVmdDsgdmVydG gdRQbbKVkvQ483KTUawOni Pq86wDXlrXjamqR7J5EyDw wvdHI+PC90 HQMzRV82aRBhjZTee4htjT v5JxGeRORiBQG3zWepBDzp b6ToMTFyB05gkFHmk9W3UO NvbGxhcHNl VdHebUQ0tH6tROwirdjjo2 odhrhdSpago8znea80oR71 T76jQLicVFYcMHFgVITlTA BxkFjgrk7a nJ5gMo7+DDVwdGC7gYD9qV 0vQfYsQgN5URreQ306FwAh mJZrDwlwl3bau5oidSg1Cm IwJSIgdmFs eKoqQNX1e7XjPq96S05pQH dpZHRoPSIyMCUiIHZhbGln mu0rlB6jAl3+LG3lf7kmcv 52qF13rWP+ SNFxLDB3dGnwGCrdTUMkjT 6xMTpxRcI0JDBsMpRgqV98 zAJaGEgvUf7xvDtjePpaNQ 4wNTBpbjtm q628KzGrg1hlSMNogLHgDC nnZSK5N98jc9O4REDqSYId KOA2zIN3cV3bgEpezeimyL VmdDsgdmVy aZgaDQvpUGurC317DHIwjC bdQdQbdWPbG1juagBRVJ3b OjwvdGQ+FZGlECB2aZdyCJ mwOONnjV5p PMGpU5p9WpViGrH2URypD0 UnfkG9ZRXcyNLiZXEcyFKQ rJ7gyksth8tmkwdaKcWpHY GqFXx1TXc5 FKHovEljXsFvLNR2ZjY2SV F2wPOtbB1umJpolagljK0l Oyc+RklOOjwvdGQ+PHRkIH S4wObsVMrp BUFzbL5aKFOhH3f6GjOyUz U8TPaaA4MfuyB3KDUazPHu NYQhnSFUoG7hlcqwm2zdvk ogIzAwMDAw GZx5TCx7IJBvxXnrRfRaCM Y4PyG4IYX0zPYnvS0mzFoe dkagcV6pWmu+TVJOOjwvdG Q+PHRkIHN0 wHtuHUyoXWPluT8vWIKdR6 v9JfBxHoL8PVcvR2MypvL0 IRKobSExSWShuMIKgX9pah itk3lkibrm GpBrLCVgYEb3SFt5PBPnzW ltIuYiWPS9YkO6MLR8eZKr fV1huVuhpcavkE3nDri+UG V5CYH3II02 RD27U6NvLqnuqJAzoYR+PH RhYmxlIHdpZHRoPScxMDAl TaDgfDdtYI6pFj5rZAAwQV NvbGxhcHNl WiHxg8fe (more content not included)... [facility] Consent for Procedure/Surger yon 09-22-2022 Consent for Procedure/Surgery [id number]#1. 00CD:127 [facility] Consent for Treatmenton 09-13 Consent for Treatment [id number]#1.0 0CD:127 [facility] Inpatient Patient Summaryon 09-22-2022 Inpatient Patient Summary [address] [address] Clinical Summary Person Information Name: SUSAN SHERMAN Age: 72 Years : 1950 Sex: Male PCP: ELVIRA SCHULTZ DO Marital Status: Race: White Ethnicity: Non- or Language: American Visit Id: Visit Reason: BPH WITH LUTS Speciality: Acuity: Enc Type: Outpatient Med Service: Surgery Arrival: 09/22/2022 07:09:42 Discharge: Dispo Type: Address: [address] [place] [phone] Provider Notes: Diagnosis: BPH with urinary obstruction; [...] With: Address: When: Sugey Arteaga [address] [place] [phone] Business (1) [address], [address], [facility] [address] [place] [address] [phone] Business (1) Comments: Office to schedule follow up in 2-4 wks to review MRI prostate and BPH procedures Type Location Start Finish State URO Office Visit [facility] EU Juan Diego 10/08/2022 8:00 AM 10/08/2022 8:15 AM Confirmed Patient Education Information: EU - Cystoscopy Discharge Instructions (CUSTOM) [facility] IntraOperative Documentson 0 09-22-2022 IntraOperative Documents [id number]#1. 00CD:127 [facility] Main OR Intraoperative Recor don 09-22-2022 Main OR Intraoperative Record IntraOp Document Type FTURO Summary Primary Physician: Sugey Arteaga MD Finalized Date/Time: 09/22/22 08:15:09 Pt. Name: SUSAN SHERMAN/Sex: 1950 Male Med Rec #: [id number] Physician: Sugey Arteaga MD Financial #: [id number] Pt. Type: O Room/Bed: / Admit/Disch: 09/22/22 07:09:42 - Institution: Case Times FTURO Entry 1 Patient Times In Room 09/22/22 08:06:00 Out Room 09/22/22 08:15:00 Procedure Times Start 09/22/22 08:09:00 Stop 09/22/22 08:11:00 Anesthesia Times Last Modified By: Carline Reina RN 09/22/22 08:15:05 Case Attendance FTURO Entry 1 Entry 2 Entry 3 Case Attendee Sugey Arteaga MD Renata Maya CENTENO RN, Kimberly Y Role Performed Surgeon - Primary Scrub - Primary Purification Operator Helper - Primary Time In 09/22/22 08:06:00 09/22/22 [...] By: Carline Reina RN 09/22/22 08:15 [facility] Main OR Preoperative Recordo n 09-22-2022 Main OR Preoperative Record Holding Area Document Type FTURO Summary Primary Physician: Sugey Arteaga MD Finalized Date/Time: 09/22/22 07:34:55 Pt. Name: SUSAN SHERMAN/Sex: 1950 Male Med Rec #: [id number] Physician: Sugey Arteaga MD Financial #: [id number] Pt. Type: O Room/Bed: / Admit/Disch: 09/22/22 [...] No Pain Comment: na Skin Integrity Intact, [place], Warm, & Dry Vitals - EU Blood Pressure 139/83 Pulse 70 bpm Respirations 18 br/min SPO2 98 % RN Reviewed Yes Last Modified By: Carline Reina RN 09/22/22 07:34:53 General Comments: temp:36.4 Finalized By: Carline Reina RN Document Signatures Signed By: Ceci Dash LPN 09/22/22 07:21 Carline Reina RN 09/22/22 07:34 [facility] Operative Reporton 3 Operative Report Patient: SUSAN SHERMAN Age: 72 years Sex: Male : 1950 Associated Diagnoses: None Author: Sugey Arteaga MD Procedure Operative Information Details: Date/ Time: 09/22/2022 08:16:00. Pre-Op Dx: BPH with urinary obstruction (TVE40-DG N40.1, Discharge, Medical). Post-Op Dx: Same. Anesthesia [...] if taking tadalafil at home . [facility] Comment on above: Result Comment: Elec tronically Signed By: Sugey Arteaga MD\.br\Date and Time Signed: 09/22/22 08:20 EDT Outpatient Surgery Discharge Instructionon 09-22-2022 Outpatient Surgery Discharge Instruction [address] [address] Patient Discharge Instructions PERSON INFORMATION [...] Follow up: With: Address: When: Sugey Arteaga [address] [place] [address] [phone] Business (1) [address] [address] [phone] Business (1) Comments: Office to schedule follow up in 2-4 wks to review MRI prostate and BPH procedures Type Location Start Finish State URO Office Visit [facility] [place] [facility] ANN Arellanoue 10/08/2022 8:00 AM 10/08/2022 8:15 AM Confirmed [...] Date You may receive a survey from [employer] asking you to rate your care experience. Your feedback is important and will help us understand what we do well and how we can improve the quality of care we provide to you, your loved ones and our community. It?s an honor to serve you. Thank you for choosing [facility] Consenton 09-17-2022 Consent [id number]#1. 00CD:127 [facility] Registrationon 09-17-2022 Registration [id number]#1. 00CD:127 [facility] Screenson 09-11-2022 Screens [id number]#1. 00CD:127 [facility] Screens [id number]#1. 00CD:127 [facility] Patient Educationon 09-11-19 Patient Education Oncology Prostate-Specific [...] including vitamins, herbs, eye drops, creams, and uzfn-zfk-gknbggx medicines. This also includes: ? Medicines to [...] 07/04/2005 Document Revised: 05/14/2018 Document Reviewed: 03/08/2018 [employer] Patient Education ? 2019 [employer]. Urology Benign Prostatic Hyperplasia Benign prostatic hyperplasia (BPH) is an enlarged prostate glan (more content not included)... [facility] Physician Orderon 09-10-2022 Physician Order [id number]#1.0 0CD:127 [facility] Pre-Certification Formon Pre-Certification Form [id number]#1. 00CD:127 [facility] Urology Office/Clinic Noteon 09-10-2022 Urology Office/Clinic [...] When Contact Information Chandler CHAVEZ, Sugey Cummins, TAMEKA, URO In 6 months Additional Instructions: w/PSA Patient Education Prostate-Specific Antigen Test Benign Prostatic Hyperplasia Camille Lopez, personally scribed for Dr. Arteaga on 09/10/2022 10:17:45. . Documentation recorded by the scribCamille kumar, accurately reflects the services(s) I performed and decisions made by me. Authenticated by Dr. Arteaga on 09/10/2022 17:54:12. Problem List/Past Medical History Ongoing Anticoagulant long-term use BPH with urinary obstruction ED (erectile dysfunction) Elevated PSA Feeling of incomplete bladder emptying Former (more content not included)... [facility] Comment on above: Result Comment: Elec tronically Signed By: Sugey Arteaga MD\.br\Date and Time Signed: 09/10/22 17:54 EDT\.br\Electronically Co-Signed By: Camille Santo\.br\Date and Time Co-Signed: 09/10/22 10:18 EDT BOX TEST SENT OUTon 08-20-19 SENT TO REF LAB 08/19/2022 Normal [facility] Comment on above: Performed By: #### B OX #### [facility] [address] [place] [address] Dr. Yogi Naidu CBC AUTO DIFFon 08-19-2022 BASO # 0.1 103/ul Normal 0.0-0.1 [facility] Comment on above: Performed By: #### C MP, MG, PHOS, GGT #### [facility] [address] [place] [address] Dr. Yogi Naidu Basophils/100 WBC (Bld) 0.9 % Normal 0.2-2.0 [facility] Comment on above: Performed By: #### C MP, MG, PHOS, GGT #### [facility] [address] [place] [address] Dr. Yogi Naidu EO # 0.2 103/ul Normal 0.0-0.7 [facility] Comment on above: Performed By: #### C MP, MG, PHOS, GGT #### [facility] [address] [place] [address] Dr. Yogi Naidu Eosinophils/100 WBC (Bld) 2.8 % Normal 0.9-7.0 [facility] Comment on above: Performed By: #### C MP, MG, PHOS, GGT #### [facility] [address] [place] [address] Dr. Yogi Naidu Erythrocyte distribution width (RBC) [Ratio] 13.9 % Normal 11.0-15.0 [facility] Comment on above: Performed By: #### C MP, MG, PHOS, GGT #### [facility] [address] [place] [address] Dr. Yogi Naidu Hematocrit (Bld) [Volume fraction] 46.0 % Normal 42.0-54.0 [facility] Comment on above: Performed By: #### C MP, MG, PHOS, GGT #### [facility] [address] [place] [address] Dr. Yogi Naidu Hemoglobin (Bld) [Mass/Vol] 15.6 g/dL Normal 14.0-18.0 [facility] Comment on above: Performed By: #### C MP, MG, PHOS, GGT #### [facility] [address] [place] [address] Dr. Yogi Naidu IG # 0.02 10e3/ul Normal 0.00-0.03 [facility] Comment on above: Performed By: #### C MP, MG, PHOS, GGT #### [facility] [address] [place] [address] Dr. Yogi Naidu IG % 0.3 % Normal 0.0-0.5 [facility] Comment on above: Performed By: #### C MP, MG, PHOS, GGT #### [facility] [address] [place] [address] Dr. Yogi Naidu LYMPH # 0.9 103/ul Critically low 1.2-3.8 [facility] Comment on above: Performed By: #### C MP, MG, PHOS, GGT #### [facility] [address] [place] [address] Dr. Yogi Naidu Lymphocytes/100 WBC (Bld) 12.8 % Critically low 20.5-60.0 [facility] Comment on above: Performed By: #### C MP, MG, PHOS, GGT #### [facility] [address] [place] [address] Dr. Yogi Naidu MANUAL DIFF REQ NO Normal [facility] Comment on above: Performed By: #### C MP, MG, PHOS, GGT #### [facility] [address] [place] [address] Dr. Yogi Naidu MCH (RBC) [Entitic mass] 29.7 pg Normal 25.9-34.0 [facility] Comment on above: Performed By: #### C MP, MG, PHOS, GGT #### [facility] [address] [place] [address] Dr. Yogi Naidu MCHC (RBC) [Mass/Vol] 33.9 g/dL Normal 29.9-35.2 [facility] Comment on above: Performed By: #### C MP, MG, PHOS, GGT #### [facility] [address] [place] [address] Dr. Yogi Naidu MCV (RBC) [Entitic vol] 87.6 fL Normal 80.0-94.0 [facility] Comment on above: Performed By: #### C MP, MG, PHOS, GGT #### [facility] [address] [place] [address] Dr. Yogi Naidu MONO # 0.4 103/ul Normal 0.3-0.8 [facility] Comment on above: Performed By: #### C MP, MG, PHOS, GGT #### [facility] [address] [place] [address] Dr. Yogi Naidu Monocytes/100 WBC (Bld) 6.0 % Normal 1.7-12.0 [facility] Comment on above: Performed By: #### C MP, MG, PHOS, GGT #### [facility] [address] [place] [address] Dr. Yogi Naidu NEUT # 5.2 103/ul Normal 1.4-6.5 [facility] Comment on above: Performed By: #### C MP, MG, PHOS, GGT #### [facility] [address] [place] [address] Dr. Yogi Naidu Neutrophils/100 WBC (Bld) 77.2 % Critically high 43.0-75.0 [facility] Comment on above: Performed By: #### C MP, MG, PHOS, GGT #### [facility] [address] [place] [address] Dr. Yogi Naidu Platelet mean volume (Bld) [Entitic vol] 9.3 fL Critically low 9.5-13.5 [facility] Comment on above: Performed By: #### C MP, MG, PHOS, GGT #### [facility] [address] [place] [address] Dr. Yogi Naidu PLT 215 103/ul Normal 150-450 [facility] Comment on above: Performed By: #### C MP, MG, PHOS, GGT #### [facility] [address] [place] [address] Dr. Yogi Naidu RBC 5.25 106/ul Normal 4.70-6.10 [facility] Comment on above: Performed By: #### C MP, MG, PHOS, GGT #### [facility] [address] [place] [address] Dr. Yogi Naidu WBC 6.8 103/ul Normal 4.0-11.0 [facility] Comment on above: Performed By: #### C MP, MG, PHOS, GGT #### [facility] [address] [place] [address] Dr. Yogi Naidu GGTon 08-19-2022 Gamma glutamyl transferase [Catalytic activity/Vol] 32 U/L Normal 15-85 [facility] Comment on above: Performed By: #### C MP, MG, PHOS, GGT #### [facility] [address] [place] [address] Dr. Yogi Naidu Lab Reportson 08-19-2022 Lab Reports [id number] 0CD:127 [facility] MAGNESIUMon 08-19-2022 Magnesium [Mass/Vol] 1.5 mg/dL Critically low 1.8-2.4 [facility] Comment on above: Performed By: #### C MP, MG, PHOS, GGT #### [facility] [address] [place] [address] Dr. Yogi Naidu PHOSPHORUSon 08-19-2022 Phosphate [Mass/Vol] 3.0 mg/dL Normal 2.6-4.7 [facility] Comment on above: Performed By: #### C MP, MG, PHOS, GGT #### [facility] [address] [place] [address] Dr. Yogi Naidu PROF 14(COMP METB)on 023 Albumin [Mass/Vol] 4.2 g/dL Normal 3.4-5.0 [facility] Comment on above: Performed By: #### C MP, MG, PHOS, GGT #### [facility] [address] [place] [address] Dr. Yogi Naidu Albumin/Globulin [Mass ratio] 1.7 {ratio} Normal [facility] Comment on above: Performed By: #### C MP, MG, PHOS, GGT #### [facility] [address] [place] [address] Dr. Yogi Naidu ALP [Catalytic activity/Vol] 68 U/L Normal 46-116 [facility] Comment on above: Performed By: #### C MP, MG, PHOS, GGT #### [facility] [address] [place] [address] Dr. Yogi Naidu ALT [Catalytic activity/Vol] 16 U/L Normal 16-63 [facility] Comment on above: Performed By: #### C MP, MG, PHOS, GGT #### [facility] [address] [place] [address] Dr. Yogi Naidu Anion gap [Moles/Vol] 12.4 mmol/L Normal [facility] Comment on above: Performed By: #### C MP, MG, PHOS, GGT #### [facility] [address] [place] [address] Dr. Yogi Naidu AST [Catalytic activity/Vol] 16 U/L Normal 15-37 [facility] Comment on above: Performed By: #### C MP, MG, PHOS, GGT #### [facility] [address] [place] [address] Dr. Yogi Naidu Bilirubin [Mass/Vol] 0.7 mg/dL Normal 0.2-1.0 [facility] Comment on above: Performed By: #### C MP, MG, PHOS, GGT #### [facility] [address] [place] [address] Dr. Yogi Naidu Calcium [Mass/Vol] 9.2 mg/dL Normal 8.5-10.1 [facility] Comment on above: Performed By: #### C MP, MG, PHOS, GGT #### [facility] [address] [place] [address] Dr. Yogi Naidu Chloride [Moles/Vol] 110 mmol/L Critically high 98-107 [facility] Comment on above: Performed By: #### C MP, MG, PHOS, GGT #### [facility] [address] [place] [address] Dr. Yogi Naidu CO2 [Moles/Vol] 26.6 mmol/L Normal 21.0-32.0 [facility] Comment on above: Performed By: #### C MP, MG, PHOS, GGT #### [facility] [address] [place] [address] Dr. Yogi Naidu Creatinine [Mass/Vol] 1.08 mg/dL Normal 0.70-1.30 [facility] Comment on above: Performed By: #### C MP, MG, PHOS, GGT #### [facility] [address] [place] [address] Dr. Yogi Naidu EGFR-AF JORDANIAN >60 Normal >=60 [facility] Comment on above: Performed By: #### C MP, MG, PHOS, GGT #### [facility] [address] [place] [address] Dr. Yogi Naidu EGFR-NON AF JORDANIAN >60 Normal >=60 [facility] Comment on above: Performed By: #### C MP, MG, PHOS, GGT #### [facility] [address] [place] [address] Dr. Yogi Naidu Globulin (S) [Mass/Vol] 2.4 g/dL Normal [facility] Comment on above: Performed By: #### C MP, MG, PHOS, GGT #### [facility] [address] [place] [address] Dr. Yogi Naidu Glucose [Mass/Vol] 100 mg/dL Normal 74-106 [facility] Comment on above: Performed By: #### C MP, MG, PHOS, GGT #### [facility] [address] [place] [address] Dr. Yogi Naidu Potassium [Moles/Vol] 4.5 mmol/L Normal 3.5-5.1 [facility] Comment on above: Performed By: #### C MP, MG, PHOS, GGT #### [facility] [address] [place] [address] Dr. Yogi Naidu Protein [Mass/Vol] 6.6 g/dL Normal 6.4-8.2 [facility] Comment on above: Performed By: #### C MP, MG, PHOS, GGT #### [facility] [address] [place] [address] Dr. Yogi Naidu Sodium [Moles/Vol] 145 mmol/L Normal 136-145 [facility] Comment on above: Performed By: #### C MP, MG, PHOS, GGT #### [facility] [address] [place] [address] Dr. Yogi Naidu Urea nitrogen [Mass/Vol] 22.0 mg/dL Critically high 7.0-18 .0 [facility] Comment on above: Performed By: #### C MP, MG, PHOS, GGT #### [facility] [address] [place] [address] Dr. Yogi Naidu Urea nitrogen/Creatinine [Mass ratio] 20.3 mg/mg Normal [facility] Comment on above: Performed By: #### C MP, MG, PHOS, GGT #### [facility] [address] [place] [address] Dr. Yogi Naidu Provider Letteron 08-07-2022 Provider Letter August 07, 2022 SUSAN SHERMAN [address] [place] [address] SUSAN SHERMAN 1950 Dear Mr. Sherman, We [...] rescheduled at your earliest convenience. Please call [phone] Thank you for your prompt attention to this matter. Sincerely, [facility] [address], [place] [address] x 1 [facility] HEP C RNA BY PCR QUANT (NON- GRAPHICAL) Won 07-23-2022 HCV Genotype RTNI Normal [facility] Comment on above: Result Comment: Not indicated Performed By: #### E ALVINO, UMICRO #### [facility] [address] [place] [address] Dr. Yogi Naidu HCV log10 [facility] Comment on above: Result Comment: Unab le to calculate result since non-numeric result obtained for component test. Performed By: #### E ALVINO, UMICRO #### [facility] [address] [place] [address] Dr. Yogi Naidu Hepatitis C Quantitation Not detected Normal [facility] Comment on above: Performed By: #### E ALVINO, UMICRO #### [facility] [address] [place] [address] Dr. Yogi Naidu Test Information: Comment Normal [facility] Comment on above: Result Comment: The quantitative range of this assay is 15 IU/mL to 100 million IU/mL. Performed By: #### E ALVINO, UMICRO #### [facility] [address] [place] [address] Dr. Yogi Naidu BOX TEST SENT OUTon 07-22-19 23 SENT TO REF LAB 07/22/2022 Normal [facility] Comment on above: Performed By: #### B OX #### [facility] [address] [place] [address] Dr. Yogi Naidu CBC AUTO DIFFon 07-22-2022 BASO # 0.1 103/ul Normal 0.0-0.1 [facility] Comment on above: Performed By: #### C BC #### [facility] [address] [place] [address] Dr. Yogi Naidu Basophils/100 WBC (Bld) 1.0 % Normal 0.2-2.0 [facility] Comment on above: Performed By: #### C BC #### [facility] [address] [place] [address] Dr. Yogi Naidu EO # 0.2 103/ul Normal 0.0-0.7 [facility] Comment on above: Performed By: #### C BC #### [facility] [address] [place] [address] Dr. Yogi Naidu Eosinophils/100 WBC (Bld) 2.5 % Normal 0.9-7.0 [facility] Comment on above: Performed By: #### C BC #### [facility] [address] [place] [address] Dr. Yogi Naidu Erythrocyte distribution width (RBC) [Ratio] 14.1 % Normal 11.0-15.0 [facility] Comment on above: Performed By: #### C BC #### [facility] [address] [place] [address] Dr. Yogi Naidu Hematocrit (Bld) [Volume fraction] 50.1 % Normal 42.0-54.0 [facility] Comment on above: Performed By: #### C BC #### [facility] [address] [place] [address] Dr. Yogi Naidu Hemoglobin (Bld) [Mass/Vol] 16.2 g/dL Normal 14.0-18.0 [facility] Comment on above: Performed By: #### C BC #### [facility] [address] [place] [address] Dr. Yogi Naidu IG # 0.03 10e3/ul Normal 0.00-0.03 [facility] Comment on above: Performed By: #### C BC #### [facility] [address] [place] [address] Dr. Yogi Naidu IG % 0.4 % Normal 0.0-0.5 [facility] Comment on above: Performed By: #### C BC #### [facility] [address] [place] [address] Dr. Yogi Naidu LYMPH # 0.7 103/ul Critically low 1.2-3.8 [facility] Comment on above: Performed By: #### C BC #### [facility] [address] [place] [address] Dr. Yogi Naidu Lymphocytes/100 WBC (Bld) 11.0 % Critically low 20.5-60.0 [facility] Comment on above: Performed By: #### C BC #### [facility] [address] [place] [address] Dr. Yogi Naidu MANUAL DIFF REQ NO Normal [facility] Comment on above: Performed By: #### C BC #### [facility] [address] [place] [address] Dr. Yogi Naidu MCH (RBC) [Entitic mass] 29.9 pg Normal 25.9-34.0 [facility] Comment on above: Performed By: #### C BC #### [facility] [address] [place] [address] Dr. Yogi Naidu MCHC (RBC) [Mass/Vol] 32.3 g/dL Normal 29.9-35.2 [facility] Comment on above: Performed By: #### C BC #### [facility] [address] [place] [address] Dr. Yogi Naidu MCV (RBC) [Entitic vol] 92.6 fL Normal 80.0-94.0 [facility] Comment on above: Performed By: #### C BC #### [facility] [address] [place] [address] Dr. Yogi Naidu MONO # 0.4 103/ul Normal 0.3-0.8 [facility] Comment on above: Performed By: #### C BC #### [facility] [address] [place] [address] Dr. Yogi Naidu Monocytes/100 WBC (Bld) 5.7 % Normal 1.7-12.0 [facility] Comment on above: Performed By: #### C BC #### [facility] [address] [place] [address] Dr. Yogi Naidu NEUT # 5.3 103/ul Normal 1.4-6.5 [facility] Comment on above: Performed By: #### C BC #### [facility] [address] [place] [address] Dr. Yogi Naidu Neutrophils/100 WBC (Bld) 79.4 % Critically high 43.0-75.0 [facility] Comment on above: Performed By: #### C BC #### [facility] [address] [place] [address] Dr. Yogi Naidu Platelet mean volume (Bld) [Entitic vol] 9.7 fL Normal 9.5-13.5 [facility] Comment on above: Performed By: #### C BC #### [facility] [address] [place] [address] Dr. Yogi Naidu PLT 206 103/ul Normal 150-450 [facility] Comment on above: Performed By: #### C BC #### [facility] [address] [place] [address] Dr. Yogi Naidu RBC 5.41 106/ul Normal 4.70-6.10 [facility] Comment on above: Performed By: #### C BC #### [facility] [address] [place] [address] Dr. Yogi Naidu WBC 6.7 103/ul Normal 4.0-11.0 [facility] Comment on above: Performed By: #### C BC #### [facility] [address] [place] [address] Dr. Yogi Naidu GGTon 07-22-2022 Gamma glutamyl transferase [Catalytic activity/Vol] 30 U/L Normal 15-85 [facility] Comment on above: Performed By: #### B OX #### [facility] [address] [place] [address] Dr. Yogi Naidu LIPID PROFILEon 07-22-2022 CHOL-HDL RATIO NORM SEE BELOW Normal [facility] Comment on above: Result Comment: 3.3 - 4.4 LOW RISK 4.4 - 7.1 AVERAGE RISK 7.1 - 11.0 MODERATE RISK >11.0 HIGH RISK Performed By: #### C MP, MG, PHOS, GGT #### [facility] [address] [place] [address] Dr. Yogi Naidu Cholesterol [Mass/Vol] 188 mg/dL Normal <=200 [facility] Comment on above: Performed By: #### C MP, MG, PHOS, GGT #### [facility] [address] [place] [address] Dr. Yogi Naidu Cholesterol in HDL [Mass/Vol] 48 mg/dL Normal 40-60 [facility] Comment on above: Performed By: #### C MP, MG, PHOS, GGT #### [facility] [address] [place] [address] Dr. Yogi Naidu Cholesterol in LDL [Mass/Vol] 123.8 mg/dL Normal [facility] Comment on above: Performed By: #### C MP, MG, PHOS, GGT #### [facility] [address] [place] [address] Dr. Yogi Naidu Cholesterol.total/Choles terol in HDL [Mass ratio] 3.9 {ratio} Normal [facility] Comment on above: Performed By: #### C MP, MG, PHOS, GGT #### [facility] [address] [place] [address] Dr. Yogi Naidu HDL NORMAL > or = 60 mg/dl - LO W CARDIOVASCULAR RISK <40 mg/dl - HIGH CARDIOVASCULAR RISK Normal [facility] Comment on above: Performed By: #### C MP, MG, PHOS, GGT #### [facility] [address] [place] [address] Dr. Yogi Naidu LDL CALC NORMAL SEE BELOW Normal [facility] Comment on above: Result Comment: <100 mg/dl OPTIMAL 100 - 129 mg/dl NEAR OR ABOVE OPTIMAL 130 - 159 mg/dl BORDERLINE HIGH 160 - 189 mg/dl HIGH >190 mg/dl VERY HIGH Performed By: #### C MP, MG, PHOS, GGT #### [facility] [address] [place] [address] Dr. Yogi Naidu Triglyceride [Mass/Vol] 81 mg/dL Normal <=150 [facility] Comment on above: Performed By: #### C MP, MG, PHOS, GGT #### [facility] [address] [place] [address] Dr. Yogi Naidu VLDL CALC 16.2 mg/dL Normal [facility] Comment on above: Performed By: #### C MP, MG, PHOS, GGT #### [facility] [address] [place] [address] Dr. Yogi Naidu MAGNESIUMon 07-22-2022 Magnesium [Mass/Vol] 1.7 mg/dL Critically low 1.8-2.4 [facility] Comment on above: Performed By: #### B OX #### [facility] [address] [place] [address] Dr. Yogi Naidu PHOSPHORUSon 07-22-2022 Phosphate [Mass/Vol] 2.8 mg/dL Normal 2.6-4.7 [facility] Comment on above: Performed By: #### C MP, MG, PHOS, GGT #### [facility] [address] [place] [address] Dr. Yogi Naidu PROF 14(COMP METB)on 023 Albumin [Mass/Vol] 4.2 g/dL Normal 3.4-5.0 [facility] Comment on above: Performed By: #### C MP, MG, PHOS, GGT #### [facility] [address] [place] [address] Dr. Yogi Naidu Albumin/Globulin [Mass ratio] 1.7 {ratio} Normal [facility] Comment on above: Performed By: #### C MP, MG, PHOS, GGT #### [facility] [address] [place] [address] Dr. Yogi Naidu ALP [Catalytic activity/Vol] 72 U/L Normal 46-116 [facility] Comment on above: Performed By: #### C MP, MG, PHOS, GGT #### [facility] [address] [place] [address] Dr. Yogi Naidu ALT [Catalytic activity/Vol] 14 U/L Critically low 16-63 [facility] Comment on above: Performed By: #### C MP, MG, PHOS, GGT #### [facility] [address] [place] [address] Dr. Yogi Naidu Anion gap [Moles/Vol] 11.1 mmol/L Normal [facility] Comment on above: Performed By: #### C MP, MG, PHOS, GGT #### [facility] [address] [place] [address] Dr. Yogi Naidu AST [Catalytic activity/Vol] 11 U/L Critically low 15-37 [facility] Comment on above: Performed By: #### C MP, MG, PHOS, GGT #### [facility] [address] [place] [address] Dr. Yogi Naidu Bilirubin [Mass/Vol] 0.7 mg/dL Normal 0.2-1.0 [facility] Comment on above: Performed By: #### C MP, MG, PHOS, GGT #### [facility] [address] [place] [address] Dr. Yogi Naidu Calcium [Mass/Vol] 9.3 mg/dL Normal 8.5-10.1 [facility] Comment on above: Performed By: #### C MP, MG, PHOS, GGT #### [facility] [address] [place] [address] Dr. Yogi Naidu Chloride [Moles/Vol] 106 mmol/L Normal 98-107 [facility] Comment on above: Performed By: #### C MP, MG, PHOS, GGT #### [facility] [address] [place] [address] Dr. Yogi Naidu CO2 [Moles/Vol] 29.2 mmol/L Normal 21.0-32.0 [facility] Comment on above: Performed By: #### C MP, MG, PHOS, GGT #### [facility] [address] [place] [address] Dr. Yogi Naidu Creatinine [Mass/Vol] 1.08 mg/dL Normal 0.70-1.30 [facility] Comment on above: Performed By: #### C MP, MG, PHOS, GGT #### [facility] [address] [place] [address] Dr. Yogi Naidu EGFR-AF JORDANIAN >60 Normal >=60 [facility] Comment on above: Performed By: #### C MP, MG, PHOS, GGT #### [facility] [address] [address] [address] Yogi Naidu EGFR-NON AF JORDANIAN >60 Normal >=60 [facility] Comment on above: Performed By: #### C MP, MG, PHOS, GGT #### [facility] [address] [address] [address] Yogi Naidu Globulin (S) [Mass/Vol] 2.5 g/dL Normal [facility] Comment on above: Performed By: #### C MP, MG, PHOS, GGT #### [facility] [address] [address] [address] Yogi Naidu Glucose [Mass/Vol] 90 mg/dL Normal 74-106 [facility] Comment on above: Performed By: #### C MP, MG, PHOS, GGT #### [facility] [address] [place] [address] Dr. Yogi Naidu Potassium [Moles/Vol] 4.3 mmol/L Normal 3.5-5.1 [facility] Comment on above: Performed By: #### C MP, MG, PHOS, GGT #### [facility] [address] [address] [address] Yogi Naidu Protein [Mass/Vol] 6.7 g/dL Normal 6.4-8.2 [facility] Comment on above: Performed By: #### C MP, MG, PHOS, GGT #### [facility] [address] [address] [address] Yogi Naidu Sodium [Moles/Vol] 142 mmol/L Normal 136-145 [facility] Comment on above: Performed By: #### C MP, MG, PHOS, GGT #### [facility] [address] [address] [address] Yogi Naidu Urea nitrogen [Mass/Vol] 23.0 mg/dL Critically high 7.0-18 .0 [facility] Comment on above: Performed By: #### C MP, MG, PHOS, GGT #### [facility] [address] [address] [address] Yogi Naidu Urea nitrogen/Creatinine [Mass ratio] 21.3 mg/mg Normal [facility] Comment on above: Performed By: #### C MP, MG, PHOS, GGT #### [facility] [address] [place] [address] Dr. Yogi Naidu BOX TEST SENT OUTon 06-16-19 23 SENT TO REF LAB 06/16/2022 Normal [facility] Comment on above: Performed By: #### E DASH DE OLIVEIRARO #### [facility] [address] [place] [address] Dr. Yogi Naidu CBC AUTO DIFFon 06-16-2022 BASO # 0.1 103/ul Normal 0.0-0.1 [facility] Comment on above: Performed By: #### C BC #### [facility] [address] [place] [address] Dr. oYgi Naidu Basophils/100 WBC (Bld) 1.0 % Normal 0.2-2.0 [facility] Comment on above: Performed By: #### C BC #### [facility] [address] [place] [address] Dr. Yogi Naidu EO # 0.2 103/ul Normal 0.0-0.7 [facility] Comment on above: Performed By: #### C BC #### [facility] [address] [place] [address] Dr. Yogi Naidu Eosinophils/100 WBC (Bld) 2.5 % Normal 0.9-7.0 [facility] Comment on above: Performed By: #### C BC #### [facility] [address] [place] [address] Dr. Yogi Naidu Erythrocyte distribution width (RBC) [Ratio] 14.3 % Normal 11.0-15.0 [facility] Comment on above: Performed By: #### C BC #### [facility] [address] [place] [address] Dr. Yogi Naidu Hematocrit (Bld) [Volume fraction] 44.7 % Normal 42.0-54.0 [facility] Comment on above: Performed By: #### C BC #### [facility] [address] [place] [address] Dr. Yogi Naidu Hemoglobin (Bld) [Mass/Vol] 14.8 g/dL Normal 14.0-18.0 [facility] Comment on above: Performed By: #### C BC #### [facility] [address] [place] [address] Dr. Yogi Naidu IG # 0.01 10e3/ul Normal 0.00-0.03 [facility] Comment on above: Performed By: #### C BC #### [facility] [address] [place] [address] Dr. Yogi Naidu IG % 0.2 % Normal 0.0-0.5 [facility] Comment on above: Performed By: #### C BC #### [facility] [address] [place] [address] Dr. Yogi Naidu LYMPH # 0.7 103/ul Critically low 1.2-3.8 [facility] Comment on above: Performed By: #### C BC #### [facility] [address] [place] [address] Dr. Yogi Naidu Lymphocytes/100 WBC (Bld) 12.4 % Critically low 20.5-60.0 [facility] Comment on above: Performed By: #### C BC #### [facility] [address] [place] [address] Dr. Yogi Naidu MANUAL DIFF REQ NO Normal [facility] Comment on above: Performed By: #### C BC #### [facility] [address] [place] [address] Dr. Yogi Naidu MCH (RBC) [Entitic mass] 29.5 pg Normal 25.9-34.0 [facility] Comment on above: Performed By: #### C BC #### [facility] [address] [place] [address] Dr. Yogi Naidu MCHC (RBC) [Mass/Vol] 33.1 g/dL Normal 29.9-35.2 [facility] Comment on above: Performed By: #### C BC #### [facility] [address] [place] [address] Dr. Yogi Naidu MCV (RBC) [Entitic vol] 89.2 fL Normal 80.0-94.0 [facility] Comment on above: Performed By: #### C BC #### [facility] [address] [place] [address] Dr. Yogi Naidu MONO # 0.4 103/ul Normal 0.3-0.8 [facility] Comment on above: Performed By: #### C BC #### [facility] [address] [place] [address] Dr. Yogi Naidu Monocytes/100 WBC (Bld) 5.9 % Normal 1.7-12.0 [facility] Comment on above: Performed By: #### C BC #### [facility] [address] [place] [address] Dr. Yogi Naidu NEUT # 4.6 103/ul Normal 1.4-6.5 [facility] Comment on above: Performed By: #### C BC #### [facility] [address] [place] [address] Dr. Yogi Naidu Neutrophils/100 WBC (Bld) 78.0 % Critically high 43.0-75.0 [facility] Comment on above: Performed By: #### C BC #### [facility] [address] [place] [address] Dr. Yogi Naidu Platelet mean volume (Bld) [Entitic vol] 9.1 fL Critically low 9.5-13.5 [facility] Comment on above: Performed By: #### C BC #### [facility] [address] [place] [address] Dr. Yogi Naidu PLT 190 103/ul Normal 150-450 [facility] Comment on above: Performed By: #### C BC #### [facility] [address] [place] [address] Dr. Yogi Naidu RBC 5.01 106/ul Normal 4.70-6.10 [facility] Comment on above: Performed By: #### C BC #### [facility] [address] [place] [address] Dr. Yogi Naidu WBC 5.9 103/ul Normal 4.0-11.0 [facility] Comment on above: Performed By: #### C BC #### [facility] [address] [place] [address] Dr. Yogi Naidu GGTon 06-16-2022 Gamma glutamyl transferase [Catalytic activity/Vol] 28 U/L Normal 15-85 [facility] Comment on above: Performed By: #### C MP, MG, PHOS, GGT #### [facility] [address] [place] [address] Dr. Yogi Naidu MAGNESIUMon 06-16-2022 Magnesium [Mass/Vol] 1.6 mg/dL Critically low 1.8-2.4 [facility] Comment on above: Performed By: #### C MP, MG, PHOS, GGT #### [facility] [address] [place] [address] Dr. Yogi Naidu PHOSPHORUSon 06-16-2022 Phosphate [Mass/Vol] 3.2 mg/dL Normal 2.6-4.7 [facility] Comment on above: Performed By: #### C MP, MG, PHOS, GGT #### [facility] [address] [place] [address] Dr. Yogi Naidu PROF 14(COMP METB)on 023 Albumin [Mass/Vol] 3.8 g/dL Normal 3.4-5.0 [facility] Comment on above: Performed By: #### C MP, MG, PHOS, GGT #### [facility] [address] [place] [address] Dr. Yogi Naidu Albumin/Globulin [Mass ratio] 1.5 {ratio} Normal [facility] Comment on above: Performed By: #### C MP, MG, PHOS, GGT #### [facility] [address] [place] [address] Dr. Yogi Naidu ALP [Catalytic activity/Vol] 74 U/L Normal 46-116 [facility] Comment on above: Performed By: #### C MP, MG, PHOS, GGT #### [facility] [address] [place] [address] Dr. Yogi Naidu ALT [Catalytic activity/Vol] 13 U/L Critically low 16-63 [facility] Comment on above: Performed By: #### C MP, MG, PHOS, GGT #### [facility] [address] [place] [address] Dr. Yogi Naidu Anion gap [Moles/Vol] 10.8 mmol/L Normal [facility] Comment on above: Performed By: #### C MP, MG, PHOS, GGT #### [facility] [address] [place] [address] Dr. Yogi Naidu AST [Catalytic activity/Vol] 15 U/L Normal 15-37 [facility] Comment on above: Performed By: #### C MP, MG, PHOS, GGT #### [facility] [address] [place] [address] Dr. Yogi Naidu Bilirubin [Mass/Vol] 0.8 mg/dL Normal 0.2-1.0 [facility] Comment on above: Performed By: #### C MP, MG, PHOS, GGT #### [facility] [address] [place] [address] Dr. Yogi Naidu Calcium [Mass/Vol] 8.9 mg/dL Normal 8.5-10.1 [facility] Comment on above: Performed By: #### C MP, MG, PHOS, GGT #### [facility] [address] [place] [address] Dr. Yogi Naidu Chloride [Moles/Vol] 108 mmol/L Critically high 98-107 [facility] Comment on above: Performed By: #### C MP, MG, PHOS, GGT #### [facility] [address] [place] [address] Dr. Yogi Naidu CO2 [Moles/Vol] 27.6 mmol/L Normal 21.0-32.0 [facility] Comment on above: Performed By: #### C MP, MG, PHOS, GGT #### [facility] [address] [place] [address] Dr. Yogi Naidu Creatinine [Mass/Vol] 1.12 mg/dL Normal 0.70-1.30 [facility] Comment on above: Performed By: #### C MP, MG, PHOS, GGT #### [facility] [address] [place] [address] Dr. Yogi Naidu EGFR-AF JORDANIAN >60 Normal >=60 [facility] Comment on above: Performed By: #### C MP, MG, PHOS, GGT #### [facility] [address] [place] [address] Dr. Yogi Naidu EGFR-NON AF JORDANIAN >60 Normal >=60 [facility] Comment on above: Performed By: #### C MP, MG, PHOS, GGT #### [facility] [address] [place] [address] Dr. Yogi Naidu Globulin (S) [Mass/Vol] 2.5 g/dL Normal [facility] Comment on above: Performed By: #### C MP, MG, PHOS, GGT #### [facility] [address] [place] [address] Dr. Yogi Naidu Glucose [Mass/Vol] 95 mg/dL Normal 74-106 [facility] Comment on above: Performed By: #### C MP, MG, PHOS, GGT #### [facility] [address] [place] [address] Dr. Yogi Naidu Potassium [Moles/Vol] 4.4 mmol/L Normal 3.5-5.1 [facility] Comment on above: Performed By: #### C MP, MG, PHOS, GGT #### [facility] [address] [place] [address] Dr. Yogi Naidu Protein [Mass/Vol] 6.3 g/dL Critically low 6.4-8.2 [facility] Comment on above: Performed By: #### C MP, MG, PHOS, GGT #### [facility] [address] [place] [address] Dr. Yogi Naidu Sodium [Moles/Vol] 142 mmol/L Normal 136-145 [facility] Comment on above: Performed By: #### C MP, MG, PHOS, GGT #### [facility] [address] [place] [address] Dr. Yogi Naidu Urea nitrogen [Mass/Vol] 24.0 mg/dL Critically high 7.0-18 .0 [facility] Comment on above: Performed By: #### C MP, MG, PHOS, GGT #### [facility] [address] [place] [address] Dr. Yogi Naidu Urea nitrogen/Creatinine [Mass ratio] 21.4 mg/mg Normal [facility] Comment on above: Performed By: #### C MP, MG, PHOS, GGT #### [facility] [address] [place] [address] Dr. Yogi Naidu BOX TEST SENT OUTon 05-19-20 22 SENT TO REF LAB 05/19/2022 Normal [facility] Comment on above: Performed By: #### E MERLE DE OLIVEIRA #### [facility] [address] [place] [address] Dr. Yogi Naidu CBC AUTO DIFFon 05-19-2022 BASO # 0.1 103/ul Normal 0.0-0.1 [facility] Comment on above: Performed By: #### C MP, MG, PHOS, GGT #### [facility] [address] [place] [address] Dr. Yogi Naidu Basophils/100 WBC (Bld) 1.2 % Normal 0.2-2.0 [facility] Comment on above: Performed By: #### C MP, MG, PHOS, GGT #### [facility] [address] [place] [address] Dr. Yogi Naidu EO # 0.3 103/ul Normal 0.0-0.7 [facility] Comment on above: Performed By: #### C MP, MG, PHOS, GGT #### [facility] [address] [place] [address] Dr. Yogi Naidu Eosinophils/100 WBC (Bld) 4.2 % Normal 0.9-7.0 [facility] Comment on above: Performed By: #### C MP, MG, PHOS, GGT #### [facility] [address] [place] [address] Dr. Yogi Naidu Erythrocyte distribution width (RBC) [Ratio] 14.2 % Normal 11.0-15.0 [facility] Comment on above: Performed By: #### C MP, MG, PHOS, GGT #### [facility] [address] [place] [address] Dr. Yogi Naidu Hematocrit (Bld) [Volume fraction] 45.5 % Normal 42.0-54.0 [facility] [facility] Comment on above: Performed By: #### C MP, MG, PHOS, GGT #### [facility] [address] [place] [address] Dr. Yogi Naidu Hemoglobin (Bld) [Mass/Vol] 15.3 g/dL Normal 14.0-18.0 [facility] Comment on above: Performed By: #### C MP, MG, PHOS, GGT #### [facility] [address] [place] [address] Dr. Yogi Naidu IG # 0.02 10e3/ul Normal 0.00-0.03 [facility] Comment on above: Performed By: #### C MP, MG, PHOS, GGT #### [facility] [address] [place] [address] Dr. Yogi Naidu IG % 0.3 % Normal 0.0-0.5 [facility] Comment on above: Performed By: #### C MP, MG, PHOS, GGT #### [facility] [address] [place] [address] Dr. Yogi Naidu LYMPH # 0.7 103/ul Critically low 1.2-3.8 [facility] Comment on above: Performed By: #### C MP, MG, PHOS, GGT #### [facility] [address] [place] [address] Dr. Yogi Naidu Lymphocytes/100 WBC (Bld) 10.1 % Critically low 20.5-60.0 [facility] Comment on above: Performed By: #### C MP, MG, PHOS, GGT #### [facility] [address] [place] [address] Dr. Yogi Naidu MANUAL DIFF REQ NO Normal [facility] Comment on above: Performed By: #### C MP, MG, PHOS, GGT #### [facility] [address] [place] [address] Dr. oYgi Naidu MCH (RBC) [Entitic mass] 29.7 pg Normal 25.9-34.0 [facility] Comment on above: Performed By: #### C MP, MG, PHOS, GGT #### [facility] [address] [place] [address] Dr. Yogi Naidu MCHC (RBC) [Mass/Vol] 33.6 g/dL Normal 29.9-35.2 [facility] Comment on above: Performed By: #### C MP, MG, PHOS, GGT #### [facility] [address] [place] [address] Dr. Yogi Naidu MCV (RBC) [Entitic vol] 88.3 fL Normal 80.0-94.0 [facility] Comment on above: Performed By: #### C MP, MG, PHOS, GGT #### [facility] [address] [place] [address] Dr. Yogi Naidu MONO # 0.5 103/ul Normal 0.3-0.8 [facility] Comment on above: Performed By: #### C MP, MG, PHOS, GGT #### [facility] [address] [place] [address] Dr. Yogi Naidu Monocytes/100 WBC (Bld) 6.6 % Normal 1.7-12.0 [facility] Comment on above: Performed By: #### C MP, MG, PHOS, GGT #### [facility] [address] [place] [address] Dr. Yogi Naidu NEUT # 5.7 103/ul Normal 1.4-6.5 [facility] Comment on above: Performed By: #### C MP, MG, PHOS, GGT #### [facility] [address] [place] [address] Dr. Yogi Naidu Neutrophils/100 WBC (Bld) 77.6 % Critically high 43.0-75.0 [facility] Comment on above: Performed By: #### C MP, MG, PHOS, GGT #### [facility] [address] [place] [address] Dr. Yogi Naidu Platelet mean volume (Bld) [Entitic vol] 9.3 fL Critically low 9.5-13.5 [facility] Comment on above: Performed By: #### C MP, MG, PHOS, GGT #### [facility] [address] [place] [address] Dr. Yogi Naidu PLT 176 103/ul Normal 150-450 [facility] Comment on above: Performed By: #### C MP, MG, PHOS, GGT #### [facility] [address] [place] [address] Dr. oYgi Naidu RBC 5.15 106/ul Normal 4.70-6.10 [facility] Comment on above: Performed By: #### C MP, MG, PHOS, GGT #### [facility] [address] [place] [address] Dr. Yogi Naidu WBC 7.3 103/ul Normal 4.0-11.0 [facility] Comment on above: Performed By: #### C MP, MG, PHOS, GGT #### [facility] [address] [place] [address] Dr. Yogi Naidu GGTon 05-19-2022 Gamma glutamyl transferase [Catalytic activity/Vol] 32 U/L Normal 15-85 [facility] Comment on above: Performed By: #### C BC #### [facility] [address] [place] [address] Dr. Yogi Naidu MAGNESIUMon 05-19-2022 Magnesium [Mass/Vol] 1.9 mg/dL Normal 1.8-2.4 [facility] Comment on above: Performed By: #### C BC #### [facility] [address] [place] [address] Dr. Yogi Naidu PHOSPHORUSon 05-19-2022 Phosphate [Mass/Vol] 2.9 mg/dL Normal 2.6-4.7 [facility] Comment on above: Performed By: #### C BC #### [facility] [address] [place] [address] Dr. Yogi Naidu PROF 14(COMP METB)on 022 Albumin [Mass/Vol] 4.0 g/dL Normal 3.4-5.0 [facility] Comment on above: Performed By: #### C BC #### [facility] [address] [place] [address] Dr. Yogi Naidu Albumin/Globulin [Mass ratio] 1.6 {ratio} Normal [facility] Comment on above: Performed By: #### C BC #### [facility] [address] [place] [address] Dr. Yogi Naidu ALP [Catalytic activity/Vol] 79 U/L Normal 46-116 [facility] Comment on above: Performed By: #### C BC #### [facility] [address] [place] [address] Dr. Yogi Naidu ALT [Catalytic activity/Vol] 13 U/L Critically low 16-63 [facility] Comment on above: Performed By: #### C BC #### [facility] [address] [place] [address] Dr. Yogi Naidu Anion gap [Moles/Vol] 10.1 mmol/L Normal [facility] Comment on above: Performed By: #### C BC #### [facility] [address] [place] [address] Dr. Yogi Naidu AST [Catalytic activity/Vol] 13 U/L Critically low 15-37 [facility] Comment on above: Performed By: #### C BC #### [facility] [address] [place] [address] Dr. Yogi Naidu Bilirubin [Mass/Vol] 0.6 mg/dL Normal 0.2-1.0 [facility] Comment on above: Performed By: #### C BC #### [facility] [address] [place] [address] Dr. Yogi Naidu Calcium [Mass/Vol] 8.9 mg/dL Normal 8.5-10.1 [facility] Comment on above: Performed By: #### C BC #### [facility] [address] [place] [address] Dr. Yogi Naidu Chloride [Moles/Vol] 108 mmol/L Critically high 98-107 [facility] Comment on above: Performed By: #### C BC #### [facility] [address] [place] [address] Dr. Yogi Naidu CO2 [Moles/Vol] 29.2 mmol/L Normal 21.0-32.0 [facility] Comment on above: Performed By: #### C BC #### [facility] [address] [place] [address] Dr. Yogi Naidu Creatinine [Mass/Vol] 0.98 mg/dL Normal 0.70-1.30 [facility] Comment on above: Performed By: #### C BC #### [facility] [address] [place] [address] Dr. Yogi Naidu EGFR-AF JORDANIAN >60 Normal >=60 [facility] Comment on above: Performed By: #### C BC #### [facility] [address] [place] [address] Dr. Yogi Naidu EGFR-NON AF JORDANIAN >60 Normal >=60 [facility] Comment on above: Performed By: #### C BC #### [facility] [address] [place] [address] Dr. Yogi Naidu Globulin (S) [Mass/Vol] 2.5 g/dL Normal [facility] Comment on above: Performed By: #### C BC #### [facility] [address] [place] [address] Dr. Yogi Naidu Glucose [Mass/Vol] 92 mg/dL Normal 74-106 [facility] Comment on above: Performed By: #### C BC #### [facility] [address] [place] [address] Dr. Yogi Naidu Potassium [Moles/Vol] 4.3 mmol/L Normal 3.5-5.1 [facility] Comment on above: Performed By: #### C BC #### [facility] [address] [place] [address] Dr. Yogi Naidu Protein [Mass/Vol] 6.5 g/dL Normal 6.4-8.2 [facility] Comment on above: Performed By: #### C BC #### [facility] [address] [place] [address] Dr. Yogi Naidu Sodium [Moles/Vol] 143 mmol/L Normal 136-145 [facility] Comment on above: Performed By: #### C BC #### [facility] [address] [place] [address] Dr. Yogi Naidu Urea nitrogen [Mass/Vol] 24.0 mg/dL Critically high 7.0-18 .0 [facility] Comment on above: Performed By: #### C BC #### [facility] [address] [place] [address] Dr. Yogi Naidu Urea nitrogen/Creatinine [Mass ratio] 24.5 mg/mg [facility] Comment on above: Performed By: #### C BC #### [facility] [address] [place] [address] Dr. Yogi Naidu HEP C RNA BY PCR QUANT (NON- GRAPHICAL) Won 04-22-2022 HCV Genotype RTNI Normal [facility] Comment on above: Result Comment: Not indicated Performed By: #### C BC #### [facility] [address] [place] [address] Dr. Yogi Naidu HCV log10 UPTCAL [facility] Comment on above: Result Comment: Unab le to calculate result since non-numeric result obtained for component test. Performed By: #### C BC #### [facility] [address] [place] [address] Dr. Yogi Naidu Hepatitis C Quantitation Not detected Normal [facility] Comment on above: Performed By: #### C BC #### [facility] [address] [place] [address] Dr. Yogi Naidu Test Information: Comment Normal [facility] Comment on above: Result Comment: The quantitative range of this assay is 15 IU/mL to 100 million IU/mL. Performed By: #### C BC #### [facility] [address] [place] [address] Dr. Yogi Naidu BOX TEST SENT OUTon 04-21-20 22 SENT TO REF LAB 04/21/2022 [facility] Comment on above: Performed By: #### C BC #### [facility] [address] [place] [address] Dr. Yogi Naidu CBC AUTO DIFFon 04-21-2022 BASO # 0.1 103/ul Normal 0.0-0.1 [facility] Comment on above: Performed By: #### C MP, MG, PHOS, GGT #### [facility] [address] [place] [address] Dr. Yogi Naidu Basophils/100 WBC (Bld) 1.0 % Normal 0.2-2.0 [facility] Comment on above: Performed By: #### C MP, MG, PHOS, GGT #### [facility] [address] [place] [address] Dr. Yogi Naidu EO # 0.2 103/ul Normal 0.0-0.7 [facility] Comment on above: Performed By: #### C MP, MG, PHOS, GGT #### [facility] [address] [place] [address] Dr. Yogi Naidu Eosinophils/100 WBC (Bld) 2.7 % Normal 0.9-7.0 [facility] Comment on above: Performed By: #### C MP, MG, PHOS, GGT #### [facility] [address] [place] [address] Dr. Yogi Naidu Erythrocyte distribution width (RBC) [Ratio] 14.2 % Normal 11.0-15.0 [facility] Comment on above: Performed By: #### C MP, MG, PHOS, GGT #### [facility] [address] [place] [address] Dr. Yogi Naidu Hematocrit (Bld) [Volume fraction] 46.5 % Normal 42.0-54.0 [facility] Comment on above: Performed By: #### C MP, MG, PHOS, GGT #### [facility] [address] [place] [address] Dr. Yogi Naidu Hemoglobin (Bld) [Mass/Vol] 15.6 g/dL Normal 14.0-18.0 [facility] Comment on above: Performed By: #### C MP, MG, PHOS, GGT #### [facility] [address] [place] [address] Dr. Yogi Naidu IG # 0.03 10e3/ul Normal 0.00-0.03 [facility] Comment on above: Performed By: #### C MP, MG, PHOS, GGT #### [facility] [address] [place] [address] Dr. Yogi Naidu IG % 0.4 % Normal 0.0-0.5 [facility] Comment on above: Performed By: #### C MP, MG, PHOS, GGT #### [facility] [address] [place] [address] Dr. Yogi Naidu LYMPH # 0.8 103/ul Critically low 1.2-3.8 [facility] Comment on above: Performed By: #### C MP, MG, PHOS, GGT #### [facility] [address] [place] [address] Dr. Yogi Naidu Lymphocytes/100 WBC (Bld) 11.3 % Critically low 20.5-60.0 [facility] Comment on above: Performed By: #### C MP, MG, PHOS, GGT #### [facility] [address] [place] [address] Dr. Yogi Naidu MANUAL DIFF REQ NO Normal [facility] Comment on above: Performed By: #### C MP, MG, PHOS, GGT #### [facility] [address] [place] [address] Dr. Yogi Naidu MCH (RBC) [Entitic mass] 30.1 pg Normal 25.9-34.0 [facility] Comment on above: Performed By: #### C MP, MG, PHOS, GGT #### [facility] [address] [place] [address] Dr. Yogi Naidu MCHC (RBC) [Mass/Vol] 33.5 g/dL Normal 29.9-35.2 [facility] Comment on above: Performed By: #### C MP, MG, PHOS, GGT #### [facility] [address] [place] [address] Dr. Yogi Naidu MCV (RBC) [Entitic vol] 89.6 fL Normal 80.0-94.0 [facility] Comment on above: Performed By: #### C MP, MG, PHOS, GGT #### [facility] [address] [place] [address] Dr. Yogi Naidu MONO # 0.4 103/ul Normal 0.3-0.8 [facility] Comment on above: Performed By: #### C MP, MG, PHOS, GGT #### [facility] [address] [place] [address] Dr. Yogi Naidu Monocytes/100 WBC (Bld) 6.0 % Normal 1.7-12.0 [facility] Comment on above: Performed By: #### C MP, MG, PHOS, GGT #### [facility] [address] [place] [address] Dr. Yogi Naidu NEUT # 5.5 103/ul Normal 1.4-6.5 [facility] Comment on above: Performed By: #### C MP, MG, PHOS, GGT #### [facility] [address] [place] [address] Dr. Yogi Naidu Neutrophils/100 WBC (Bld) 78.6 % Critically high 43.0-75.0 [facility] Comment on above: Performed By: #### C MP, MG, PHOS, GGT #### [facility] [address] [place] [address] Dr. Yogi Naidu Platelet mean volume (Bld) [Entitic vol] 10.1 fL Normal 9.5-13.5 [facility] Comment on above: Performed By: #### C MP, MG, PHOS, GGT #### [facility] [address] [place] [address] Dr. Yogi Naidu PLT 204 103/ul Normal 150-450 [facility] Comment on above: Performed By: #### C MP, MG, PHOS, GGT #### [facility] [address] [place] [address] Dr. Yogi Naidu RBC 5.19 106/ul Normal 4.70-6.10 [facility] Comment on above: Performed By: #### C MP, MG, PHOS, GGT #### [facility] [address] [address] [address] Yogi Naidu WBC 7.0 103/ul Normal 4.0-11.0 [facility] Comment on above: Performed By: #### C MP, MG, PHOS, GGT #### [facility] [address] [address] [address] Yogi Naidu GGTon 04-21-2022 Gamma glutamyl transferase [Catalytic activity/Vol] 34 U/L Normal 15-85 [facility] Comment on above: Performed By: #### DASH CULVERRO #### [facility] [address] [place] [address] Dr. Yogi Naidu LIPID PROFILEon 04-21-2022 CHOL-HDL RATIO NORM SEE BELOW Normal [facility] Comment on above: Result Comment: 3.3 - 4.4 LOW RISK 4.4 - 7.1 AVERAGE RISK 7.1 - 11.0 MODERATE RISK >11.0 HIGH RISK Performed By: #### DASH CULVERRO #### [facility] [address] [place] [address] Dr. Yogi Naidu Cholesterol [Mass/Vol] 190 mg/dL Normal <=200 [facility] Comment on above: Performed By: #### DASH CULVERRO #### [facility] [address] [place] [address] Dr. Yogi Naidu Cholesterol in HDL [Mass/Vol] 49 mg/dL Normal 40-60 [facility] Comment on above: Performed By: #### DASH CULVERRO #### [facility] [address] [place] [address] Dr. Yogi Naidu Cholesterol in LDL [Mass/Vol] 127.8 mg/dL Normal [facility] Comment on above: Performed By: #### SONU CULVERICRO #### [facility] [address] [place] [address] Dr. Yogi Naidu Cholesterol.total/Choles terol in HDL [Mass ratio] 3.9 {ratio} Normal [facility] Comment on above: Performed By: #### DASH CULVERRO #### [facility] [address] [address] [address] Yogi Naidu HDL NORMAL > or = 60 mg/dl - LO W CARDIOVASCULAR RISK <40 mg/dl - HIGH CARDIOVASCULAR RISK Normal [facility] Comment on above: Performed By: #### Vesta DE OLIVEIRA UMICRO #### [facility] [address] [place] [address] Dr. Yogi Naidu LDL CALC NORMAL SEE BELOW Normal [facility] Comment on above: Result Comment: <100 mg/dl OPTIMAL 100 - 129 mg/dl NEAR OR ABOVE OPTIMAL 130 - 159 mg/dl BORDERLINE HIGH 160 - 189 mg/dl HIGH >190 mg/dl VERY HIGH Performed By: #### Vesta DE OLIVEIRA UMICRO #### [facility] [address] [place] [address] Dr. Yogi Naiud Triglyceride [Mass/Vol] 66 mg/dL Normal <=150 [facility] Comment on above: Performed By: #### DASH CULVERRO #### [facility] [address] [place] [address] Dr. Yogi Naidu VLDL CALC 13.2 mg/dL Normal [facility] Comment on above: Performed By: #### DASH CULVERRO #### [facility] [address] [place] [address] Dr. Yogi Naidu MAGNESIUMon 04-21-2022 Magnesium [Mass/Vol] 1.8 mg/dL Normal 1.8-2.4 [facility] Comment on above: Performed By: #### Vesta DE OLIVEIRA UMICRO #### [facility] [address] [place] [address] Dr. Yogi Naidu PHOSPHORUSon 04-21-2022 Phosphate [Mass/Vol] 3.4 mg/dL Normal 2.6-4.7 [facility] Comment on above: Performed By: #### Vesta DE OLIVEIRA UMICRO #### [facility] [address] [place] [address] Dr. Yogi Naidu PROF 14(COMP METB)on 022 Albumin [Mass/Vol] 4.0 g/dL Normal 3.4-5.0 [facility] Comment on above: Performed By: #### MERLE CULVER #### [facility] [address] [place] [address] Dr. Yogi Naidu Albumin/Globulin [Mass ratio] 1.6 {ratio} Normal [facility] Comment on above: Performed By: #### MERLE CULVER #### [facility] [address] [place] [address] Dr. Yogi Naidu ALP [Catalytic activity/Vol] 81 U/L Normal 46-116 [facility] Comment on above: Performed By: #### MERLE CULVER #### [facility] [address] [place] [address] Dr. Yogi Naidu ALT [Catalytic activity/Vol] 14 U/L Critically low 16-63 [facility] Comment on above: Performed By: #### MERLE CULVER #### [facility] [address] [place] [address] Dr. Yogi Naidu Anion gap [Moles/Vol] 8.8 mmol/L Normal [facility] Comment on above: Performed By: #### MERLE CULVER #### [facility] [address] [place] [address] Dr. Yogi Naidu AST [Catalytic activity/Vol] 15 U/L Normal 15-37 [facility] Comment on above: Performed By: #### MERLE CULVER #### [facility] [address] [place] [address] Dr. Yogi Naidu Bilirubin [Mass/Vol] 0.6 mg/dL Normal 0.2-1.0 [facility] Comment on above: Performed By: #### MERLE CULVER #### [facility] [address] [place] [address] Dr. Yogi Naidu Calcium [Mass/Vol] 9.2 mg/dL Normal 8.5-10.1 [facility] Comment on above: Performed By: #### MERLE CULVER #### [facility] [address] [place] [address] Dr. Yogi Naidu Chloride [Moles/Vol] 106 mmol/L Normal 98-107 [facility] Comment on above: Performed By: #### DASH CULVERRO #### [facility] [address] [place] [address] Dr. Yogi Naidu CO2 [Moles/Vol] 28.5 mmol/L Normal 21.0-32.0 [facility] Comment on above: Performed By: #### DASH CULVERRO #### [facility] [address] [place] [address] Dr. Yogi Naidu Creatinine [Mass/Vol] 1.12 mg/dL Normal 0.70-1.30 [facility] Comment on above: Performed By: #### DASH CULVERRO #### [facility] [address] [place] [address] Dr. Yogi Naidu EGFR-AF JORDANIAN >60 Normal >=60 [facility] Comment on above: Performed By: #### DASH CULVERRO #### [facility] [address] [place] [address] Dr. Yogi Naidu EGFR-NON AF JORDANIAN >60 Normal >=60 [facility] Comment on above: Performed By: #### DASH CULVERRO #### [facility] [address] [place] [address] Dr. Yogi Naidu Globulin (S) [Mass/Vol] 2.5 g/dL Normal [facility] Comment on above: Performed By: #### DASH CULVERRO #### [facility] [address] [place] [address] Dr. Yogi Naidu Glucose [Mass/Vol] 91 mg/dL Normal 74-106 [facility] Comment on above: Performed By: #### DASH CULVERRO #### [facility] [address] [place] [address] Dr. Yogi Naidu Potassium [Moles/Vol] 4.3 mmol/L Normal 3.5-5.1 [facility] Comment on above: Performed By: #### E RUR, UMICRO #### [facility] [address] [address] [address] Yogi Naidu Protein [Mass/Vol] 6.5 g/dL Normal 6.4-8.2 [facility] Comment on above: Performed By: #### Vesta DE OLIVEIRA, UMICRO #### [facility] [address] [address] [address] Yogi Naidu Sodium [Moles/Vol] 139 mmol/L Normal 136-145 [facility] Comment on above: Performed By: #### Vesta DE OLIVEIRA, UMICRO #### [facility] [address] [place] [address] Dr. Yogi Naidu Urea nitrogen [Mass/Vol] 25.0 mg/dL Critically high 7.0-18 .0 [facility] Comment on above: Performed By: #### Vesta DE OLIVEIRA UMICRO #### [facility] [address] [place] [address] Dr. Yogi Naidu Urea nitrogen/Creatinine [Mass ratio] 22.3 mg/mg Normal [facility] - [place] Comment on above: Performed By: #### Vesta DE OLIVEIRA UMICRO #### [facility] [address] [place] [address] Dr. Yogi Naidu Tobacco Screening.on 022 Adult depression screening assessment No [facility] [employer] [place] [employer] 250 DO Work Phone: Fall risk assessment a) No falls within the last year [facility] [employer] 250 DO Work Phone: Tobacco use status [facility] b) No [facility] [employer] 250 DO Work Phone: BOX TEST SENT OUTon 03-17-20 SENT TO REF LAB 03/17/2022 Normal [facility] [place] Comment on above: Performed By: #### C MP, MG, PHOS, GGT #### [facility] [address] [place] [address] Dr. Yogi Naidu CBC W MANUAL DIFFon 03-17-20 ATYPICAL LYMPH # Normal [facility] [place] Comment on above: Performed By: #### E ALVINO, UMICRO #### [facility] [address] [place] [address] Dr. Yogi Naidu ATYPICAL LYMPH % Normal [facility] Comment on above: Performed By: #### MERLE CULVER #### [facility] [address] [place] [address] Dr. Yogi Naidu BAND # Normal 0.0-0.3 [facility] [place] Comment on above: Performed By: #### MERLE CULVER #### [facility] [address] [place] [address] Dr. Yogi Naidu BAND % Normal 0-5 [facility] Comment on above: Performed By: #### MERLE CULVER #### [facility] [address] [place] [address] Dr. Yogi Naidu BASOM # 0.00 103/ul Normal 0.00-0.10 [facility] [place] Comment on above: Performed By: #### MERLE CULVER #### [facility] [address] [place] [address] Dr. Yogi Naidu BASOM % 0.0 % Critically low 0.2-2.0 [facility] [place] Comment on above: Performed By: #### MERLE CULVER #### [facility] [address] [place] [address] Dr. Yogi Naidu BLAST # Normal [facility] [place] Comment on above: Performed By: #### MERLE CULVER #### [facility] [address] [place] [address] Dr. Yogi Naidu BLAST % Normal [facility] Comment on above: Performed By: #### DASH CULVERRO #### [facility] [address] [place] [address] Dr. Yogi Naidu CORRECTED WBC Normal 4.0-11.0 [facility] [place] Comment on above: Performed By: #### DASH CULVERRO #### [facility] [address] [place] [address] Dr. Yogi Naidu EOS # 0.20 103/ul Normal 0.00-0.70 [facility] [place] Comment on above: Performed By: #### Vesta DE OLIVEIRA UMICRO #### [facility] [address] [address] [address] Yogi Naidu EOS% 3.0 % Normal 0.9-7.0 [facility] [place] Comment on above: Performed By: #### E ALVINO, UMICRO #### [facility] [address] [address] [address] Yogi Naidu HCT 45.6 % Normal 42.0-54.0 [facility] [place] Comment on above: Performed By: #### E ALVINO UMICRO #### [facility] [address] [place] [address] Dr. Yogi Naidu HGB 15.2 g/dl Normal 14.0-18.0 [facility] [place] Comment on above: Performed By: #### Vesta DE OLIVEIRA UMICRO #### [facility] [address] [place] [address] Dr. Yogi Naidu LYMPHM # 0.78 103/ul Critically low 1.20-3.80 [facility] [place] Comment on above: Performed By: #### Vesta DE OLIVEIRA UMICRO #### [facility] [address] [place] [address] Dr. Yogi Naidu LYMPHM% 12.0 % Critically low 20.5-60.0 [facility] [place] Comment on above: Performed By: #### Vesta DE OLIVEIRA UMICRO #### [facility] [address] [place] [address] Dr. Yogi Naidu MCH 30.4 pg Normal 25.9-34.0 [facility] [place] Comment on above: Performed By: #### Vesta DE OLIVEIRA UMICRO #### [facility] [address] [place] [address] Dr. Yogi Naidu MCHC 33.3 g/dl Normal 29.9-35.2 [facility] [place] Comment on above: Performed By: #### E RUCarole UMICRO #### [facility] [address] [place] [address] Dr. Yogi Naidu MCV 91.2 fL Normal 80.0-94.0 [facility] Comment on above: Performed By: #### Vesta DE OLIVEIRA UMICRO #### [facility] [address] [place] [address] Dr. Yogi Naidu METAMYELOCYTE # Normal [facility] [place] Comment on above: Performed By: #### Vesta DE OLIVEIRA UMICRO #### [facility] [address] [place] [address] Dr. Yogi Naidu METAMYELOCYTE % Normal [facility] [place] Comment on above: Performed By: #### Vesta DE OLIVEIRA UMICRO #### [facility] [address] [place] [address] Dr. Yogi Naidu MONOM# 0.39 103/ul Normal 0.30-0.80 [facility] [place] Comment on above: Performed By: #### Vesta DE OLIVEIRA UMICRO #### [facility] [address] [place] [address] Dr. Yogi Naidu MONOM% 6.0 % Normal 1.7-12.0 [facility] [place] Comment on above: Performed By: #### Vesta DE OLIVEIRA UMICRO #### [facility] [address] [place] [address] Dr. Yogi Naidu MPV 9.6 fL Normal 9.5-13.5 [facility] [place] Comment on above: Performed By: #### Vesta DE OLIVEIRA UMICRO #### [facility] [address] [place] [address] Dr. Yogi Naidu MYELOCYTE # Normal [facility] Comment on above: Performed By: #### Vesta DE OLIVEIRA UMICRO #### [facility] [address] [place] [address] Dr. Yogi Naidu MYELOCYTE % Normal [facility] Comment on above: Performed By: #### Vesta DE OLIVEIRA UMICRO #### [facility] [address] [place] [address] Dr. Yogi Naidu NRBC Normal [facility] Comment on above: Performed By: #### Vesta DE OLIVEIRA UMICRO #### [facility] [address] [place] [address] Dr. Yogi Naidu PLT 180 103/ul Normal 150-450 [facility] Comment on above: Performed By: #### MERLE CULVER #### [facility] [address] [place] [address] Dr. Yogi Naidu RBC 5.00 106/ul Normal 4.70-6.10 [facility] [place] Comment on above: Performed By: #### MRELE CULVER #### [facility] [address] [place] [address] Dr. Yogi Naidu RDW 14.1 % Normal 11.0-15.0 [facility] [place] Comment on above: Performed By: #### MERLE CULVER #### [facility] [address] [place] [address] Dr. Yogi Naidu SEG # 5.13 103/ul Normal 1.40-6.50 [facility] [place] Comment on above: Performed By: #### MERLE CULVER #### [facility] [address] [place] [address] Dr. Yogi Naidu SEG % 79.0 % Critically high 43.0-75.0 [facility] [place] Comment on above: Performed By: #### MERLE CULVER #### [facility] [address] [place] [address] Dr. Yogi Naidu WBC 6.5 103/ul Normal 4.0-11.0 [facility] [place] Comment on above: Performed By: #### MERLE CULVER #### [facility] [address] [place] [address] Dr. Yogi Naidu GGTon 03-17-2022 Gamma glutamyl transferase [Catalytic activity/Vol] 37 U/L Normal 15-85 [facility] Comment on above: Performed By: #### C MP, MG, PHOS, GGT #### [facility] [address] [place] [address] Dr. Yogi Naidu MAGNESIUMon 03-17-2022 Magnesium [Mass/Vol] 1.8 mg/dL Normal 1.8-2.4 [facility] [place] Comment on above: Performed By: #### C MP, MG, PHOS, GGT #### [facility] [address] [place] [address] Dr. Yogi Naidu PHOSPHORUSon 03-17-2022 Phosphate [Mass/Vol] 2.9 mg/dL Normal 2.6-4.7 [facility] [place] Comment on above: Performed By: #### C MP, MG, PHOS, GGT #### [facility] [address] [place] [address] Dr. Yogi Naidu PROF 14(COMP METB)on 022 Albumin [Mass/Vol] 3.9 g/dL Normal 3.4-5.0 [facility] [place] Comment on above: Performed By: #### C MP, MG, PHOS, GGT #### [facility] [address] [place] [address] Dr. Yogi Naidu Albumin/Globulin [Mass ratio] 1.6 {ratio} Normal [facility] [place] Comment on above: Performed By: #### C MP, MG, PHOS, GGT #### [facility] [address] [place] [address] Dr. Yogi Naidu ALP [Catalytic activity/Vol] 75 U/L Normal 46-116 [facility] [place] Comment on above: Performed By: #### C MP, MG, PHOS, GGT #### [facility] [address] [place] [address] Dr. Yogi Naidu ALT [Catalytic activity/Vol] 20 U/L Normal 16-63 [facility] [place] Comment on above: Performed By: #### C MP, MG, PHOS, GGT #### [facility] [address] [place] [address] Dr. Yogi Naidu Anion gap [Moles/Vol] 9.6 mmol/L Normal [facility] [place] Comment on above: Performed By: #### C MP, MG, PHOS, GGT #### [facility] [address] [place] [address] Dr. Yogi Naidu AST [Catalytic activity/Vol] 13 U/L Critically low 15-37 [facility] [place] Comment on above: Performed By: #### C MP, MG, PHOS, GGT #### [facility] [address] [address] [address] Yogi Naidu Bilirubin [Mass/Vol] 0.7 mg/dL Normal 0.2-1.0 [facility] [place] Comment on above: Performed By: #### C MP, MG, PHOS, GGT #### [facility] [address] [place] [address] Dr. Yogi Naidu Calcium [Mass/Vol] 9.0 mg/dL Normal 8.5-10.1 [facility] [place] Comment on above: Performed By: #### C MP, MG, PHOS, GGT #### [facility] [address] [place] [address] Dr. Yogi Naidu Chloride [Moles/Vol] 108 mmol/L Critically high 98-107 [facility] [place] Comment on above: Performed By: #### C MP, MG, PHOS, GGT #### [facility] [address] [place] [address] Dr. Yogi Naidu CO2 [Moles/Vol] 28.3 mmol/L Normal 21.0-32.0 [facility] [place] Comment on above: Performed By: #### C MP, MG, PHOS, GGT #### [facility] [address] [place] [address] Dr. Yogi Naidu Creatinine [Mass/Vol] 1.17 mg/dL Normal 0.70-1.30 [facility] [place] Comment on above: Performed By: #### C MP, MG, PHOS, GGT #### [facility] [address] [place] [address] Dr. Yogi Naidu EGFR-AF JORDANIAN >60 Normal >=60 [facility] [place] Comment on above: Performed By: #### C MP, MG, PHOS, GGT #### [facility] [address] [place] [address] Dr. Yogi Naidu EGFR-NON AF JORDANIAN >60 Normal >=60 [facility] [place] Comment on above: Performed By: #### C MP, MG, PHOS, GGT #### [facility] [address] [place] [address] Dr. Yogi Naidu Globulin (S) [Mass/Vol] 2.4 g/dL Normal [facility] Comment on above: Performed By: #### C MP, MG, PHOS, GGT #### [facility] [address] [address] [address] Yogi Naidu Glucose [Mass/Vol] 102 mg/dL Normal 74-106 [facility] [place] Comment on above: Performed By: #### C MP, MG, PHOS, GGT #### [facility] [address] [place] [address] Dr. Yogi Naidu Potassium [Moles/Vol] 4.9 mmol/L Normal 3.5-5.1 [facility] [place] Comment on above: Performed By: #### C MP, MG, PHOS, GGT #### [facility] [address] [place] [address] Dr. Yogi Naidu Protein [Mass/Vol] 6.3 g/dL Critically low 6.4-8.2 [facility] Comment on above: Performed By: #### C MP, MG, PHOS, GGT #### [facility] [address] [place] [address] Dr. Yogi Naidu Sodium [Moles/Vol] 141 mmol/L Normal 136-145 [facility] [place] Comment on above: Performed By: #### C MP, MG, PHOS, GGT #### [facility] [address] [place] [address] Dr. Yogi Naidu Urea nitrogen [Mass/Vol] 22.0 mg/dL Critically high 7.0-18 .0 [facility] [place] Comment on above: Performed By: #### C MP, MG, PHOS, GGT #### [facility] [address] [place] [address] Dr. Yogi Naidu Urea nitrogen/Creatinine [Mass ratio] 18.8 mg/mg Normal [facility] [place] Comment on above: Performed By: #### C MP, MG, PHOS, GGT #### [facility] [address] [place] [address] Dr. Yogi Naidu BOX TEST SENT OUTon 02-19-20 22 SENT TO REF LAB 02/18/2022 [facility] Comment on above: Performed By: #### E MERLE DE OLIVIERA #### [facility] [address] [place] [address] Dr. Yogi Naidu CBC W MANUAL DIFFon 02-19-20 22 ATYPICAL LYMPH # Normal [facility] [place] Comment on above: Performed By: #### C MP, MG, PHOS, GGT #### [facility] [address] [place] [address] Dr. Yogi Naidu ATYPICAL LYMPH % Normal [facility] [place] Comment on above: Performed By: #### C MP, MG, PHOS, GGT #### [facility] [address] [place] [address] Dr. Yogi Naidu BAND # Normal 0.0-0.3 [facility] [place] Comment on above: Performed By: #### C MP, MG, PHOS, GGT #### [facility] [address] [place] [address] Dr. Yogi Naidu BAND % Normal 0-5 [facility] [place] Comment on above: Performed By: #### C MP, MG, PHOS, GGT #### [facility] [address] [place] [address] Dr. Yogi Naidu BASOM # 0.00 103/ul Normal 0.00-0.10 [facility] [place] Comment on above: Performed By: #### C MP, MG, PHOS, GGT #### [facility] [address] [place] [address] Dr. Yogi Naidu BASOM % 0.0 % Critically low 0.2-2.0 [facility] [place] Comment on above: Performed By: #### C MP, MG, PHOS, GGT #### [facility] [address] [place] [address] Dr. Yogi Naidu BLAST # Normal [facility] [place] Comment on above: Performed By: #### C MP, MG, PHOS, GGT #### [facility] [address] [place] [address] Dr. Yogi Naidu BLAST % Normal [facility] Comment on above: Performed By: #### C MP, MG, PHOS, GGT #### [facility] [address] [place] [address] Dr. Yogi Naidu CORRECTED WBC Normal 4.0-11.0 [facility] [place] Comment on above: Performed By: #### C MP, MG, PHOS, GGT #### [facility] [address] [place] [address] Dr. Yogi Naidu EOS # 0.21 103/ul Normal 0.00-0.70 [facility] [place] Comment on above: Performed By: #### C MP, MG, PHOS, GGT #### [facility] [address] [place] [address] Dr. Yogi Naidu EOS% 4.0 % Normal 0.9-7.0 [facility] [place] Comment on above: Performed By: #### C MP, MG, PHOS, GGT #### [facility] [address] [place] [address] Dr. Yogi Naidu HCT 43.6 % Normal 42.0-54.0 [facility] [place] Comment on above: Performed By: #### C MP, MG, PHOS, GGT #### [facility] [address] [place] [address] Dr. Yogi Naidu HGB 14.9 g/dl Normal 14.0-18.0 [facility] [place] Comment on above: Performed By: #### C MP, MG, PHOS, GGT #### [facility] [address] [place] [address] Dr. Yogi Naidu LYMPHM # 0.62 103/ul Critically low 1.20-3.80 [facility] [place] Comment on above: Performed By: #### C MP, MG, PHOS, GGT #### [facility] [address] [place] [address] Dr. Yogi Naidu LYMPHM% 12.0 % Critically low 20.5-60.0 [facility] [place] Comment on above: Performed By: #### C MP, MG, PHOS, GGT #### [facility] [address] [place] [address] Dr. Yogi Naidu MCH 30.1 pg Normal 25.9-34.0 [facility] Comment on above: Performed By: #### C MP, MG, PHOS, GGT #### [facility] [address] [place] [address] Dr. Yogi Naidu MCHC 34.2 g/dl Normal 29.9-35.2 [facility] [place] Comment on above: Performed By: #### C MP, MG, PHOS, GGT #### [facility] [address] [place] [address] Dr. Yogi Naidu MCV 88.1 fL Normal 80.0-94.0 [facility] [place] Comment on above: Performed By: #### C MP, MG, PHOS, GGT #### [facility] [address] [place] [address] Dr. Yogi Naidu METAMYELOCYTE # Normal [facility] [place] Comment on above: Performed By: #### C MP, MG, PHOS, GGT #### [facility] [address] [place] [address] Dr. Yogi Naidu METAMYELOCYTE % Normal [facility] Comment on above: Performed By: #### C MP, MG, PHOS, GGT #### [facility] [address] [place] [address] Dr. Yogi Naidu MONOM# 0.05 103/ul Critically low 0.30-0.80 [facility] [place] Comment on above: Performed By: #### C MP, MG, PHOS, GGT #### [facility] [address] [place] [address] Dr. Yogi Naidu MONOM% 1.0 % Critically low 1.7-12.0 [facility] [place] Comment on above: Performed By: #### C MP, MG, PHOS, GGT #### [facility] [address] [place] [address] Dr. Yogi Naidu MPV 9.2 fL Critically low 9.5-13.5 [facility] [place] Comment on above: Performed By: #### C MP, MG, PHOS, GGT #### [facility] [address] [place] [address] Dr. Yogi Naidu MYELOCYTE # Normal [facility] Comment on above: Performed By: #### C MP, MG, PHOS, GGT #### [facility] [address] [place] [address] Dr. Yogi Naidu MYELOCYTE % Normal [facility] [place] Comment on above: Performed By: #### C MP, MG, PHOS, GGT #### [facility] [address] [place] [address] Dr. Yogi Naidu NRBC Normal [facility] [place] Comment on above: Performed By: #### C MP, MG, PHOS, GGT #### [facility] [address] [place] [address] Dr. Yogi Naidu PLT 143 103/ul Critically low 150-450 [facility] [place] Comment on above: Performed By: #### C MP, MG, PHOS, GGT #### [facility] [address] [place] [address] Dr. Yogi Naidu RBC 4.95 106/ul Normal 4.70-6.10 [facility] [place] Comment on above: Performed By: #### C MP, MG, PHOS, GGT #### [facility] [address] [place] [address] Dr. Yogi Naidu RDW 13.9 % Normal 11.0-15.0 [facility] [place] Comment on above: Performed By: #### C MP, MG, PHOS, GGT #### [facility] [address] [place] [address] Dr. Yogi Naidu SEG # 4.32 103/ul Normal 1.40-6.50 [facility] [place] Comment on above: Performed By: #### C MP, MG, PHOS, GGT #### [facility] [address] [place] [address] Dr. Yogi Naidu SEG % 83.0 % Critically high 43.0-75.0 [facility] [place] Comment on above: Performed By: #### C MP, MG, PHOS, GGT #### [facility] [address] [place] [address] Dr. Yogi Naidu WBC 5.2 103/ul Normal 4.0-11.0 [facility] [place] Comment on above: Performed By: #### C MP, MG, PHOS, GGT #### [facility] [address] [place] [address] Dr. Yogi Naidu GGTon 02-18-2022 Gamma glutamyl transferase [Catalytic activity/Vol] 38 U/L Normal 15-85 [facility] Comment on above: Performed By: #### C BC #### [facility] [address] [place] [address] Dr. Yogi Naidu MAGNESIUMon 02-18-2022 Magnesium [Mass/Vol] 1.8 mg/dL Normal 1.8-2.4 [facility] Comment on above: Performed By: #### C BC #### [facility] [address] [place] [address] Dr. Yogi Naidu PHOSPHORUSon 02-18-2022 Phosphate [Mass/Vol] 2.5 mg/dL Critically low 2.6-4.7 [facility] Comment on above: Performed By: #### C MP, MG, PHOS, GGT #### [facility] [address] [place] [address] Dr. Yogi Naidu PROF 14(COMP METB)on 022 Albumin [Mass/Vol] 3.8 g/dL Normal 3.4-5.0 [facility] [place] Comment on above: Performed By: #### C MP, MG, PHOS, GGT #### [facility] [address] [place] [address] Dr. Yogi Naidu Albumin/Globulin [Mass ratio] 1.6 {ratio} Normal [facility] [place] Comment on above: Performed By: #### C MP, MG, PHOS, GGT #### [facility] [address] [place] [address] Dr. Yogi Naidu ALP [Catalytic activity/Vol] 69 U/L Normal 46-116 [facility] Comment on above: Performed By: #### C MP, MG, PHOS, GGT #### [facility] [address] [place] [address] Dr. Yogi Naidu ALT [Catalytic activity/Vol] 17 U/L Normal 16-63 [facility] Comment on above: Performed By: #### C MP, MG, PHOS, GGT #### [facility] [address] [place] [address] Dr. Yogi Naidu Anion gap [Moles/Vol] 10.0 mmol/L Normal [facility] Comment on above: Performed By: #### C MP, MG, PHOS, GGT #### [facility] [address] [place] [address] Dr. Yogi Naidu AST [Catalytic activity/Vol] 15 U/L Normal 15-37 [facility] Comment on above: Performed By: #### C MP, MG, PHOS, GGT #### [facility] [address] [place] [address] Dr. Yogi Naidu Bilirubin [Mass/Vol] 0.7 mg/dL Normal 0.2-1.0 [facility] Comment on above: Performed By: #### C MP, MG, PHOS, GGT #### [facility] [address] [place] [address] Dr. Yogi Naidu Calcium [Mass/Vol] 8.3 mg/dL Critically low 8.5-10.1 [facility] Comment on above: Performed By: #### C MP, MG, PHOS, GGT #### [facility] [address] [place] [address] Dr. Yogi Naidu Chloride [Moles/Vol] 107 mmol/L Normal 98-107 [facility] Comment on above: Performed By: #### C MP, MG, PHOS, GGT #### [facility] [address] [place] [address] Dr. Yogi Naidu CO2 [Moles/Vol] 27.0 mmol/L Normal 21.0-32.0 [facility] Comment on above: Performed By: #### C MP, MG, PHOS, GGT #### [facility] [address] [place] [address] Dr. Yogi Naidu Creatinine [Mass/Vol] 1.29 mg/dL Normal 0.70-1.30 [facility] Comment on above: Performed By: #### C MP, MG, PHOS, GGT #### [facility] [address] [place] [address] Dr. Yogi Naidu EGFR-AF JORDANIAN >60 Normal >=60 [facility] Comment on above: Performed By: #### C MP, MG, PHOS, GGT #### [facility] [address] [place] [address] Dr. Yogi Naidu EGFR-NON AF JORDANIAN 55 mL/min/1.73m2 Critically low >=60 [facility] Comment on above: Performed By: #### C MP, MG, PHOS, GGT #### [facility] [address] [place] [address] Dr. Yogi Naidu Globulin (S) [Mass/Vol] 2.4 g/dL Normal [facility] Comment on above: Performed By: #### C MP, MG, PHOS, GGT #### [facility] [address] [place] [address] Dr. Yogi Naidu Glucose [Mass/Vol] 95 mg/dL Normal 74-106 [facility] Comment on above: Performed By: #### C MP, MG, PHOS, GGT #### [facility] [address] [place] [address] Dr. Yogi Naidu Potassium [Moles/Vol] 4.0 mmol/L Normal 3.5-5.1 [facility] Comment on above: Performed By: #### C MP, MG, PHOS, GGT #### [facility] [address] [place] [address] Dr. Yogi Naidu Protein [Mass/Vol] 6.2 g/dL Critically low 6.4-8.2 [facility] Comment on above: Performed By: #### C MP, MG, PHOS, GGT #### [facility] [address] [place] [address] Dr. Yogi Naidu Sodium [Moles/Vol] 140 mmol/L Normal 136-145 [facility] Comment on above: Performed By: #### C MP, MG, PHOS, GGT #### [facility] [address] [place] [address] Dr. Yogi Naidu Urea nitrogen [Mass/Vol] 26.0 mg/dL Critically high 7.0-18 .0 [facility] Comment on above: Performed By: #### C MP, MG, PHOS, GGT #### [facility] [address] [place], [place] [address] Dr. Yogi Naidu Urea nitrogen/Creatinine [Mass ratio] 20.2 mg/mg Normal [facility] Comment on above: Performed By: #### C MP, MG, PHOS, GGT #### [facility] [address] [place], [place] [address] Dr. Yogi Naidu US PROSTATEon 01-22-2022 US [...] SUSAN POPE Date: 2022-01-22 16:08 Normal [facility] Covid-19 PCR (CVDTB)on SARS-CoV-2 (COVID-19) RNA LUZ MARIA+probe Ql (Unsp spec) Not detected Normal NOT DETECTED [facility] Comment on above: Result Comment: This test is not yet approved or cleared by the [place] FDA. When there are no FDA-approved or cleared tests available, and other criteria are met, FDA can make tests available under an emergency access mechanism called an Emergency Use Authorization (EUA). The EUA for this test is supported by the [place] of Health and Human Service's (HHS's) declaration [...] consistent with SARS-CoV-2. Performed By: #### E RUMERLE Lam #### [facility] [address] [place] [address] Dr. Yogi Naidu HEP C RNA BY PCR QUANT (NON- GRAPHICAL) Won 01-14-2022 HCV Genotype RTNI Normal [facility] Comment on above: Result Comment: Not indicated Performed By: #### C MP, MG, PHOS, GGT #### [facility] [address] [place] [address] Dr. Yogi Naidu HCV log10 UPTCAL Normal [facility] Comment on above: Result Comment: Unab le to calculate result since non-numeric result obtained for component test. Performed By: #### C MP, MG, PHOS, GGT #### [facility] [address] [place] [address] Dr. Yogi Naidu Hepatitis C Quantitation Not detected [facility] Comment on above: Performed By: #### C MP, MG, PHOS, GGT #### [facility] [address] [place] [address] Dr. Yogi Naidu Test Information: Comment Normal [facility] Comment on above: Result Comment: The quantitative range of this assay is 15 IU/mL to 100 million IU/mL. Performed By: #### C MP, MG, PHOS, GGT #### [facility] [address] [place] [address] Dr. Yogi Naidu BOX TEST SENT OUTon 01-14-20 22 SENT TO REF LAB 01/13/2022 [facility] Comment on above: Performed By: #### B OX #### [facility] [address] [place] [address] Dr. Yogi Naidu CBC W MANUAL DIFFon 01-14-20 ANISOCYTOSIS SLIGHT Normal [facility] Comment on above: Performed By: #### C MP, MG, PHOS, GGT #### [facility] [address] [place] [address] Dr. Yogi Naidu ATYPICAL LYMPH # Normal [facility] Comment on above: Performed By: #### C MP, MG, PHOS, GGT #### [facility] [address] [place] [address] Dr. Yogi Naidu ATYPICAL LYMPH % Normal [facility] Comment on above: Performed By: #### C MP, MG, PHOS, GGT #### [facility] [address] [place] [address] Dr. Yogi Naidu BAND # Normal 0.0-0.3 [facility] Comment on above: Performed By: #### C MP, MG, PHOS, GGT #### [facility] [address] [place] [address] Dr. Yogi Naidu BAND % Normal 0-5 [facility] Comment on above: Performed By: #### C MP, MG, PHOS, GGT #### [facility] [address] [place] [address] Dr. Yogi Naidu BASOM # 0.00 103/ul Normal 0.00-0.10 [facility] Comment on above: Performed By: #### C MP, MG, PHOS, GGT #### [facility] [address] [place] [address] Dr. Yogi Naidu BASOM % 0.0 % Critically low 0.2-2.0 [facility] Comment on above: Performed By: #### C MP, MG, PHOS, GGT #### [facility] [address] [place] [address] Dr. Yogi Naidu BLAST # Normal [facility] Comment on above: Performed By: #### C MP, MG, PHOS, GGT #### [facility] [address] [place] [address] Dr. Yogi Naidu BLAST % Normal [facility] Comment on above: Performed By: #### C MP, MG, PHOS, GGT #### [facility] [address] [place] [address] Dr. Yogi Naidu CORRECTED WBC Normal 4.0-11.0 [facility] Comment on above: Performed By: #### C MP, MG, PHOS, GGT #### [facility] [address] [place] [address] Dr. Yogi Naidu EOS # 0.10 103/ul Normal 0.00-0.70 [facility] Comment on above: Performed By: #### C MP, MG, PHOS, GGT #### [facility] [address] [place] [address] [address] Yogi Naidu EOS% 2.0 % Normal 0.9-7.0 [facility] Comment on above: Performed By: #### C MP, MG, PHOS, GGT #### [facility] [address] [place] [address] [address] Yogi Naidu HCT 42.9 % Normal 42.0-54.0 [facility] Comment on above: Performed By: #### C MP, MG, PHOS, GGT #### [facility] [address] [place] [address] Dr. Yogi Naidu HGB 14.6 g/dl Normal 14.0-18.0 [facility] Comment on above: Performed By: #### C MP, MG, PHOS, GGT #### [facility] [address] [place] [address] Dr. Yogi Naidu LYMPHM # 0.56 103/ul Critically low 1.20-3.80 [facility] Comment on above: Performed By: #### C MP, MG, PHOS, GGT #### [facility] [address] [place] [address] Dr. Yogi Naidu LYMPHM% 11.0 % Critically low 20.5-60.0 [facility] Comment on above: Performed By: #### C MP, MG, PHOS, GGT #### [facility] [address] [place] [address] Dr. Yogi Naidu MCH 30.8 pg Normal 25.9-34.0 [facility] Comment on above: Performed By: #### C MP, MG, PHOS, GGT #### [facility] [address] [place] [address] Dr. Yogi Naidu MCHC 34.0 g/dl Normal 29.9-35.2 [facility] Comment on above: Performed By: #### C MP, MG, PHOS, GGT #### [facility] [address] [place] [address] Dr. Yogi Naidu MCV 90.5 fL Normal 80.0-94.0 [facility] Comment on above: Performed By: #### C MP, MG, PHOS, GGT #### [facility] [address] [place] [address] [address] Yogi Naidu METAMYELOCYTE # Normal [facility] Comment on above: Performed By: #### C MP, MG, PHOS, GGT #### [facility] [address] [place] [address] [address] Yogi Naidu METAMYELOCYTE % Normal [facility] Comment on above: Performed By: #### C MP, MG, PHOS, GGT #### [facility] [address] [place] [address] [address] Yogi Naidu MONOM# 0.26 103/ul Critically low 0.30-0.80 [facility] Comment on above: Performed By: #### C MP, MG, PHOS, GGT #### [facility] [address] [place] [address] Dr. Yogi Naidu MONOM% 5.0 % Normal 1.7-12.0 [facility] Comment on above: Performed By: #### C MP, MG, PHOS, GGT #### [facility] [address] [place] [address] [address] Yogi Naidu MPV 9.8 fL Normal 9.5-13.5 [facility] Comment on above: Performed By: #### C MP, MG, PHOS, GGT #### [facility] [address] [place] [address] Dr. Yogi Naidu MYELOCYTE # Normal [facility] Comment on above: Performed By: #### C MP, MG, PHOS, GGT #### [facility] [address] [place] [address] [address] Yogi Naidu MYELOCYTE % Normal [facility] Comment on above: Performed By: #### C MP, MG, PHOS, GGT #### [facility] [address] [place] [address] Dr. Yogi Naidu NRBC Normal [facility] Comment on above: Performed By: #### C MP, MG, PHOS, GGT #### [facility] [address] [place] [address] [address] Yogi Naidu PLT 172 103/ul Normal 150-450 [facility] Comment on above: Performed By: #### C MP, MG, PHOS, GGT #### [facility] [address] [place] [address] Dr. Yogi Naidu POIKILOCYTOSIS 1+ Normal [facility] Comment on above: Performed By: #### C MP, MG, PHOS, GGT #### [facility] [address] [place] [address] Dr. Yogi Naidu RBC 4.74 106/ul Normal 4.70-6.10 [facility] Comment on above: Performed By: #### C MP, MG, PHOS, GGT #### [facility] [address] [place] [address] Dr. Yogi Naidu RDW 13.9 % Normal 11.0-15.0 [facility] Comment on above: Performed By: #### C MP, MG, PHOS, GGT #### [facility] [address] [place] [address] Dr. Yogi Naidu SEG # 4.18 103/ul Normal 1.40-6.50 [facility] Comment on above: Performed By: #### C MP, MG, PHOS, GGT #### [facility] [address] [place] [address] Dr. Yogi Naidu SEG % 82.0 % Critically high 43.0-75.0 [facility] Comment on above: Performed By: #### C MP, MG, PHOS, GGT #### [facility] [address] [place] [address] Dr. Yogi Naidu TEAR DROP CELLS 1+ Normal [facility] Comment on above: Performed By: #### C MP, MG, PHOS, GGT #### [facility] [address] [place] [address] Dr. Yogi Naidu WBC 5.1 103/ul Normal 4.0-11.0 [facility] Comment on above: Performed By: #### C MP, MG, PHOS, GGT #### [facility] [address] [place] [address] Dr. Yogi Naidu GGTon 01-13-2022 Gamma glutamyl transferase [Catalytic activity/Vol] 35 U/L Normal 15-85 [facility] Comment on above: Performed By: #### B OX #### [facility] [address] [place] [address] [address] Yogi Naidu LIPID PROFILEon 01-13-2022 CHOL-HDL RATIO NORM SEE BELOW Normal [facility] Comment on above: Result Comment: 3.3 - 4.4 LOW RISK 4.4 - 7.1 AVERAGE RISK 7.1 - 11.0 MODERATE RISK >11.0 HIGH RISK Performed By: #### B OX #### [facility] [address] [place] [address] [address] Yogi Naidu Cholesterol [Mass/Vol] 183 mg/dL Normal <=200 [facility] Comment on above: Performed By: #### B OX #### [facility] [address] [place] [address] Dr. Yogi Naidu Cholesterol in HDL [Mass/Vol] 45 mg/dL Normal 40-60 [facility] Comment on above: Performed By: #### B OX #### [facility] [address] [place] [address] [address] Yogi Naidu Cholesterol in LDL [Mass/Vol] 127.2 mg/dL Normal [facility] Comment on above: Performed By: #### B OX #### [facility] [address] [place] [address] Dr. Yogi Naidu Cholesterol.total/Choles terol in HDL [Mass ratio] 4.1 {ratio} Normal [facility] Comment on above: Performed By: #### B OX #### [facility] [address] [place] [address] Dr. Yogi Naidu HDL NORMAL > or = 60 mg/dl - LO W CARDIOVASCULAR RISK <40 mg/dl - HIGH CARDIOVASCULAR RISK Normal [facility] Comment on above: Performed By: #### B OX #### [facility] [address] [place] [address] Dr. Yogi Naidu LDL CALC NORMAL SEE BELOW Normal [facility] Comment on above: Result Comment: <100 mg/dl OPTIMAL 100 - 129 mg/dl NEAR OR ABOVE OPTIMAL 130 - 159 mg/dl BORDERLINE HIGH 160 - 189 mg/dl HIGH >190 mg/dl VERY HIGH Performed By: #### B OX #### [facility] [address] [place] [address] Dr. Yogi Naidu Triglyceride [Mass/Vol] 54 mg/dL Normal <=150 [facility] Comment on above: Performed By: #### B OX #### [facility] [address] [place] [address] Dr. Yogi Naidu VLDL CALC 10.8 mg/dL Normal [facility] Comment on above: Performed By: #### B OX #### [facility] [address] [place] [address] Dr. Yogi Naidu MAGNESIUMon 01-13-2022 Magnesium [Mass/Vol] 1.7 mg/dL Critically low 1.8-2.4 [facility] Comment on above: Performed By: #### B OX #### [facility] [address] [place] [address] Dr. Yogi Naidu PHOSPHORUSon 01-13-2022 Phosphate [Mass/Vol] 2.8 mg/dL Normal 2.6-4.7 [facility] Comment on above: Performed By: #### B OX #### [facility] [address] [place] [address] Dr. Yogi Naidu PROF 14(COMP METB)on 022 Albumin [Mass/Vol] 3.9 g/dL Normal 3.4-5.0 [facility] Comment on above: Performed By: #### B OX #### [facility] [address] [place] [address] Dr. Yogi Naidu Albumin/Globulin [Mass ratio] 1.7 {ratio} Normal [facility] Comment on above: Performed By: #### B OX #### [facility] [address] [place] [address] Dr. Yogi Naidu ALP [Catalytic activity/Vol] 68 U/L Normal 46-116 [facility] Comment on above: Performed By: #### B OX #### [facility] [address] [place] [address] [address] Yogi Naidu ALT [Catalytic activity/Vol] 14 U/L Critically low 16-63 [facility] Comment on above: Performed By: #### B OX #### [facility] [address] [place] [address] Dr. Yogi Naidu Anion gap [Moles/Vol] 11.9 mmol/L Normal [facility] Comment on above: Performed By: #### B OX #### [facility] [address] [place] [address] Dr. Yogi Naidu AST [Catalytic activity/Vol] 13 U/L Critically low 15-37 [facility] Comment on above: Performed By: #### B OX #### [facility] [address] [place] [address] Dr. Yogi Naidu Bilirubin [Mass/Vol] 0.5 mg/dL Normal 0.2-1.0 [facility] Comment on above: Performed By: #### B OX #### [facility] [address] [place] [address] Dr. Yogi Naidu Calcium [Mass/Vol] 8.7 mg/dL Normal 8.5-10.1 [facility] Comment on above: Performed By: #### B OX #### [facility] [address] [place] [address] Dr. Yogi Naidu Chloride [Moles/Vol] 110 mmol/L Critically high 98-107 [facility] Comment on above: Performed By: #### B OX #### [facility] [address] [place] [address] Dr. Yogi Naidu CO2 [Moles/Vol] 26.3 mmol/L Normal 21.0-32.0 [facility] Comment on above: Performed By: #### B OX #### [facility] [address] [place] [address] Dr. Yogi Naidu Creatinine [Mass/Vol] 1.24 mg/dL Normal 0.70-1.30 [facility] Comment on above: Performed By: #### B OX #### [facility] [address] [place] [address] Dr. Yogi Naidu EGFR-AF JORDANIAN >60 Normal >=60 [facility] Comment on above: Performed By: #### B OX #### [facility] [address] [place] [address] [address] Yogi Naidu EGFR-NON AF JORDANIAN 58 mL/min/1.73m2 Critically low >=60 [facility] Comment on above: Performed By: #### B OX #### [facility] [address] [place] [address] [address] Yogi Naidu Globulin (S) [Mass/Vol] 2.3 g/dL Normal [facility] Comment on above: Performed By: #### B OX #### [facility] [address] [place] [address] Dr. Yogi Naidu Glucose [Mass/Vol] 103 mg/dL Normal 74-106 [facility] Comment on above: Performed By: #### B OX #### [facility] [address] [place] [address] Dr. Yogi Naidu Potassium [Moles/Vol] 4.2 mmol/L Normal 3.5-5.1 [facility] Comment on above: Performed By: #### B OX #### [facility] [address] [place] [address] Dr. Yogi Naidu Protein [Mass/Vol] 6.2 g/dL Critically low 6.4-8.2 [facility] Comment on above: Performed By: #### B OX #### [facility] [address] [place] [address] Dr. Yogi Naidu Sodium [Moles/Vol] 144 mmol/L Normal 136-145 [facility] Comment on above: Performed By: #### B OX #### [facility] [address] [place] [address] [address] Yogi Naidu Urea nitrogen [Mass/Vol] 26.0 mg/dL Critically high 7.0-18 .0 [facility] Comment on above: Performed By: #### B OX #### [facility] [address] [place] [address] Dr. Yogi Naidu Urea nitrogen/Creatinine [Mass ratio] 21.0 mg/mg Normal [facility] Comment on above: Performed By: #### B OX #### [facility] [address] [place] [address] Dr. Yogi Naidu PROTIMEon 01-13-2022 INR Coag (PPP) [Relative time] 1.06 {INR} Normal [facility] Comment on above: Performed By: #### C MP, MG, PHOS, GGT #### [facility] [address] [place] [address] Dr. Yogi Naidu INR GUIDELINES SEE BELOW Normal [facility] Comment on above: Result Comment: LENI RED INR: 2.0 - 3.0 CONDITIONS NOT LISTED BELOW 2.5 - 3.5 FOR PROSTHETIC HEART VALVE REPLACEMENT 2.5 - 3.5 RECURRENT THROMBOSIS Performed By: #### C MP, MG, PHOS, GGT #### [facility] [address] [place] [address] Dr. Ygoi Naidu PT Coag (PPP) [Time] 11.4 s Normal 9.0-11.6 [facility] Comment on above: Performed By: #### C MP, MG, PHOS, GGT #### [facility] [address] [place] [address] Dr. Yogi Naidu PTTon 01-13-2022 aPTT Coag (Bld) [Time] 28.7 s Normal 22.3-36.2 [facility] Comment on above: Performed By: #### C MP, MG, PHOS, GGT #### [facility] [address] [place] [address] Dr. Yogi Naidu BOX TEST SENT OUTon 12-18-19 22 SENT TO REF LAB 12/17/2021 Normal [facility] Comment on above: Performed By: #### C MP, MG, PHOS, GGT #### [facility] [address] [place] [address] Dr. Yogi Naidu CBC AUTO DIFFon 12-17-2021 BASO # 0.1 103/ul Normal 0.0-0.1 [facility] Comment on above: Performed By: #### C BC #### [facility] [address] [place] [address] Dr. Yogi Naidu Basophils/100 WBC (Bld) 1.1 % Normal 0.2-2.0 [facility] Comment on above: Performed By: #### C BC #### [facility] [address] [place] [address] Dr. Yogi Naidu EO # 0.2 103/ul Normal 0.0-0.7 [facility] Comment on above: Performed By: #### C BC #### [facility] [address] [place] [address] Dr. Yogi Naidu Eosinophils/100 WBC (Bld) 4.1 % Normal 0.9-7.0 [facility] Comment on above: Performed By: #### C BC #### [facility] [address] [place] [address] Dr. Yogi Naidu Erythrocyte distribution width (RBC) [Ratio] 13.7 % Normal 11.0-15.0 [facility] Comment on above: Performed By: #### C BC #### [facility] [address] [place] [address] Dr. Yogi Naidu Hematocrit (Bld) [Volume fraction] 45.6 % Normal 42.0-54.0 [facility] Comment on above: Performed By: #### C BC #### [facility] [address] [place] [address] Dr. Yogi Naidu Hemoglobin (Bld) [Mass/Vol] 15.1 g/dL Normal 14.0-18.0 [facility] Comment on above: Performed By: #### C BC #### [facility] [address] [place] [address] Dr. Yogi Naidu IG # 0.01 10e3/ul Normal 0.00-0.03 [facility] Comment on above: Performed By: #### C BC #### [facility] [address] [place] [address] Dr. Yogi Naidu IG % 0.2 % Normal 0.0-0.5 [facility] Comment on above: Performed By: #### C BC #### [facility] [address] [place] [address] Dr. Yogi Naidu LYMPH # 0.7 103/ul Critically low 1.2-3.8 [facility] Comment on above: Performed By: #### C BC #### [facility] [address] [place] [address] Dr. Yogi Naidu Lymphocytes/100 WBC (Bld) 12.4 % Critically low 20.5-60.0 [facility] Comment on above: Performed By: #### C BC #### [facility] [address] [place] [address] Dr. Yogi Naidu MANUAL DIFF REQ NO Normal [facility] Comment on above: Performed By: #### C BC #### [facility] [address] [place] [address] Dr. Yogi Naidu MCH (RBC) [Entitic mass] 30.1 pg Normal 25.9-34.0 [facility] Comment on above: Performed By: #### C BC #### [facility] [address] [place] [address] Dr. Yogi Naidu MCHC (RBC) [Mass/Vol] 33.1 g/dL Normal 29.9-35.2 [facility] Comment on above: Performed By: #### C BC #### [facility] [address] [place] [address] Dr. Yogi Naidu MCV (RBC) [Entitic vol] 90.8 fL Normal 80.0-94.0 [facility] Comment on above: Performed By: #### C BC #### [facility] [address] [place] [address] Dr. Yogi Naidu MONO # 0.3 103/ul Normal 0.3-0.8 [facility] Comment on above: Performed By: #### C BC #### [facility] [address] [place] [address] Dr. Yogi Naidu Monocytes/100 WBC (Bld) 5.5 % Normal 1.7-12.0 [facility] Comment on above: Performed By: #### C BC #### [facility] [address] [place] [address] Dr. Yogi Naidu NEUT # 4.4 103/ul Normal 1.4-6.5 [facility] Comment on above: Performed By: #### C BC #### [facility] [address] [place] [address] Dr. Yogi Naidu Neutrophils/100 WBC (Bld) 76.7 % Critically high 43.0-75.0 [facility] Comment on above: Performed By: #### C BC #### [facility] [address] [place] [address] Dr. Yogi Naidu Platelet mean volume (Bld) [Entitic vol] 9.5 fL Normal 9.5-13.5 [facility] Comment on above: Performed By: #### C BC #### [facility] [address] [place] [address] Dr. Yogi Naidu PLT 157 103/ul Normal 150-450 [facility] Comment on above: Performed By: #### C BC #### [facility] [address] [place] [address] Dr. Yogi Naidu RBC 5.02 106/ul Normal 4.70-6.10 [facility] Comment on above: Performed By: #### C BC #### [facility] [address] [place] [address] Dr. Yogi Naidu WBC 5.7 103/ul Normal 4.0-11.0 [facility] Comment on above: Performed By: #### C BC #### [facility] [address] [place] [address] Dr. Yogi Naidu GGTon 12-17-2021 Gamma glutamyl transferase [Catalytic activity/Vol] 35 U/L Normal 15-85 [facility] Comment on above: Performed By: #### C MP, MG, PHOS, GGT #### [facility] [address] [place] [address] Dr. Yogi Naidu MAGNESIUMon 12-17-2021 Magnesium [Mass/Vol] 1.6 mg/dL Critically low 1.8-2.4 [facility] Comment on above: Performed By: #### C MP, MG, PHOS, GGT #### [facility] [address] [place] [address] Dr. Yogi Naidu PHOSPHORUSon 12-17-2021 Phosphate [Mass/Vol] 2.9 mg/dL Normal 2.6-4.7 [facility] Comment on above: Performed By: #### C MP, MG, PHOS, GGT #### [facility] [address] [place] [address] Dr. Yogi Naidu PROF 14(COMP METB)on 022 Albumin [Mass/Vol] 3.8 g/dL Normal 3.4-5.0 [facility] Comment on above: Performed By: #### C MP, MG, PHOS, GGT #### [facility] [address] [place] [address] Dr. Yogi Naidu Albumin/Globulin [Mass ratio] 1.6 {ratio} Normal [facility] Comment on above: Performed By: #### C MP, MG, PHOS, GGT #### [facility] [address] [place] [address] Dr. Yogi Naidu ALP [Catalytic activity/Vol] 74 U/L Normal 46-116 [facility] Comment on above: Performed By: #### C MP, MG, PHOS, GGT #### [facility] [address] [place] [address] Dr. Yogi Naidu ALT [Catalytic activity/Vol] 21 U/L Normal 16-63 [facility] Comment on above: Performed By: #### C MP, MG, PHOS, GGT #### [facility] [address] [place] [address] Dr. Yogi Naidu Anion gap [Moles/Vol] 13.2 mmol/L Normal [facility] Comment on above: Performed By: #### C MP, MG, PHOS, GGT #### [facility] [address] [place] [address] Dr. Yogi Naidu AST [Catalytic activity/Vol] 14 U/L Critically low 15-37 [facility] Comment on above: Performed By: #### C MP, MG, PHOS, GGT #### [facility] [address] [place] [address] Dr. Yogi Naidu Bilirubin [Mass/Vol] 0.6 mg/dL Normal 0.2-1.0 [facility] Comment on above: Performed By: #### C MP, MG, PHOS, GGT #### [facility] [address] [place] [address] Dr. Yogi Naidu Calcium [Mass/Vol] 8.5 mg/dL Normal 8.5-10.1 [facility] Comment on above: Performed By: #### C MP, MG, PHOS, GGT #### [facility] [address] [place] [address] Dr. Yogi Naidu Chloride [Moles/Vol] 109 mmol/L Critically high 98-107 [facility] Comment on above: Performed By: #### C MP, MG, PHOS, GGT #### [facility] [address] [place] [address] Dr. Yogi Naidu CO2 [Moles/Vol] 24.9 mmol/L Normal 21.0-32.0 [facility] Comment on above: Performed By: #### C MP, MG, PHOS, GGT #### [facility] [address] [place] [address] Dr. Yogi Naidu Creatinine [Mass/Vol] 1.22 mg/dL Normal 0.70-1.30 [facility] Comment on above: Performed By: #### C MP, MG, PHOS, GGT #### [facility] [address] [place] [address] Dr. Yogi Naidu EGFR-AF JORDANIAN >60 Normal >=60 [facility] Comment on above: Performed By: #### C MP, MG, PHOS, GGT #### [facility] [address] [place] [address] Dr. Yogi Naidu EGFR-NON AF JORDANIAN 59 mL/min/1.73m2 Critically low >=60 [facility] Comment on above: Performed By: #### C MP, MG, PHOS, GGT #### [facility] [address] [place] [address] Dr. Yogi Naidu Globulin (S) [Mass/Vol] 2.4 g/dL Normal [facility] Comment on above: Performed By: #### C MP, MG, PHOS, GGT #### [facility] [address] [address] [address] Yogi Naidu Glucose [Mass/Vol] 94 mg/dL Normal 74-106 [facility] Comment on above: Performed By: #### C MP, MG, PHOS, GGT #### [facility] [address] [place] [address] Dr. Yogi Naidu Potassium [Moles/Vol] 4.1 mmol/L Normal 3.5-5.1 [facility] Comment on above: Performed By: #### C MP, MG, PHOS, GGT #### [facility] [address] [place] [address] Dr. Yogi Naidu Protein [Mass/Vol] 6.2 g/dL Critically low 6.4-8.2 [facility] Comment on above: Performed By: #### C MP, MG, PHOS, GGT #### [facility] [address] [place] [address] Dr. Yogi Naidu Sodium [Moles/Vol] 143 mmol/L Normal 136-145 [facility] Comment on above: Performed By: #### C MP, MG, PHOS, GGT #### [facility] [address] [place] [address] Dr. Yogi Naidu Urea nitrogen [Mass/Vol] 21.0 mg/dL Critically high 7.0-18 .0 [facility] Comment on above: Performed By: #### C MP, MG, PHOS, GGT #### [facility] [address] [place] [address] Dr. Yogi Naidu Urea nitrogen/Creatinine [Mass ratio] 17.2 mg/mg Normal [facility] Comment on above: Performed By: #### C MP, MG, PHOS, GGT #### [facility] [address] [place] [address] Dr. Yogi Naidu BOX TEST SENT OUTon 11-22-19 SENT TO REF LAB 11/21/2021 Normal [facility] Comment on above: Performed By: #### C MP, MG, PHOS, GGT #### [facility] [address] [address] [address] Yogi Naidu CBC W MANUAL DIFFon 11-22-19 22 ATYPICAL LYMPH # Normal [facility] Comment on above: Performed By: #### C MP, MG, PHOS, GGT #### [facility] [address] [address] [address] Yogi Naidu ATYPICAL LYMPH % Normal [facility] Comment on above: Performed By: #### C MP, MG, PHOS, GGT #### [facility] [address] [place] [address] Dr. Yogi Naidu BAND # 0.1 103/ul Normal 0.0-0.3 [facility] Comment on above: Performed By: #### C MP, MG, PHOS, GGT #### [facility] [address] [place] [address] Dr. Yogi Naidu BAND % 2 % Normal 0-5 [facility] Comment on above: Performed By: #### C MP, MG, PHOS, GGT #### [facility] [address] [place] [address] Dr. Yogi Naidu BASOM # 0.00 103/ul Normal 0.00-0.10 [facility] Comment on above: Performed By: #### C MP, MG, PHOS, GGT #### [facility] [address] [place] [address] Dr. Yogi Naidu BASOM % 0.0 % Critically low 0.2-2.0 [facility] Comment on above: Performed By: #### C MP, MG, PHOS, GGT #### [facility] [address] [place] [address] Dr. Yogi Naidu BLAST # Normal [facility] Comment on above: Performed By: #### C MP, MG, PHOS, GGT #### [facility] [address] [place] [address] Dr. Yogi Naidu BLAST % Normal [facility] Comment on above: Performed By: #### C MP, MG, PHOS, GGT #### [facility] [address] [place] [address] Dr. Yogi Naidu CORRECTED WBC Normal 4.0-11.0 [facility] Comment on above: Performed By: #### C MP, MG, PHOS, GGT #### [facility] [address] [place] [address] Dr. Yogi Naidu EOS # 0.19 103/ul Normal 0.00-0.70 [facility] Comment on above: Performed By: #### C MP, MG, PHOS, GGT #### [facility] [address] [place] [address] Dr. Yogi Naidu EOS% 3.0 % Normal 0.9-7.0 [facility] Comment on above: Performed By: #### C MP, MG, PHOS, GGT #### [facility] [address] [place] [address] Dr. Yogi Naidu HCT 46.5 % Normal 42.0-54.0 [facility] Comment on above: Performed By: #### C MP, MG, PHOS, GGT #### [facility] [address] [place] [address] Dr. Yogi Naidu HGB 15.5 g/dl Normal 14.0-18.0 [facility] Comment on above: Performed By: #### C MP, MG, PHOS, GGT #### [facility] [address] [place] [address] Dr. Yogi Naidu LYMPHM # 0.50 103/ul Critically low 1.20-3.80 [facility] Comment on above: Performed By: #### C MP, MG, PHOS, GGT #### [facility] [address] [place] [address] Dr. Yogi Naidu LYMPHM% 8.0 % Critically low 20.5-60.0 [facility] Comment on above: Performed By: #### C MP, MG, PHOS, GGT #### [facility] [address] [place] [address] Dr. Yogi Naidu MCH 30.2 pg Normal 25.9-34.0 [facility] Comment on above: Performed By: #### C MP, MG, PHOS, GGT #### [facility] [address] [address] [address] Yogi Naidu MCHC 33.3 g/dl Normal 29.9-35.2 [facility] Comment on above: Performed By: #### C MP, MG, PHOS, GGT #### [facility] [address] [address] [address] Yogi Naidu MCV 90.5 fL Normal 80.0-94.0 [facility] Comment on above: Performed By: #### C MP, MG, PHOS, GGT #### [facility] [address] [place] [address] Dr. Yogi Naidu METAMYELOCYTE # Normal [facility] Comment on above: Performed By: #### C MP, MG, PHOS, GGT #### [facility] [address] [place] [address] Dr. Yogi Naidu METAMYELOCYTE % Normal [facility] Comment on above: Performed By: #### C MP, MG, PHOS, GGT #### [facility] [address] [place] [address] Dr. Yogi Naidu MONOM# 0.06 103/ul Critically low 0.30-0.80 [facility] Comment on above: Performed By: #### C MP, MG, PHOS, GGT #### [facility] [address] [place] [address] Dr. Yogi Naidu MONOM% 1.0 % Critically low 1.7-12.0 [facility] Comment on above: Performed By: #### C MP, MG, PHOS, GGT #### [facility] [address] [place] [address] Dr. Yogi Naidu MPV 9.6 fL Normal 9.5-13.5 [facility] Comment on above: Performed By: #### C MP, MG, PHOS, GGT #### [facility] [address] [place] [address] Dr. Yogi Naidu MYELOCYTE # Normal [facility] Comment on above: Performed By: #### C MP, MG, PHOS, GGT #### [facility] [address] [place] [address] Dr. Yogi Naidu MYELOCYTE % Normal [facility] Comment on above: Performed By: #### C MP, MG, PHOS, GGT #### [facility] [address] [place] [address] Dr. Yogi Naidu NRBC Normal [facility] Comment on above: Performed By: #### C MP, MG, PHOS, GGT #### [facility] [address] [place] [address] Dr. Yogi Naidu PLT 185 103/ul Normal 150-450 [facility] Comment on above: Performed By: #### C MP, MG, PHOS, GGT #### [facility] [address] [place] [address] Dr. Yogi Naidu RBC 5.14 106/ul Normal 4.70-6.10 [facility] Comment on above: Performed By: #### C MP, MG, PHOS, GGT #### [facility] [address] [place] [address] Dr. Yogi Naidu RDW 14.0 % Normal 11.0-15.0 [facility] Comment on above: Performed By: #### C MP, MG, PHOS, GGT #### [facility] [address] [place] [address] Dr. Yogi Naidu SEG # 5.33 103/ul Normal 1.40-6.50 [facility] Comment on above: Performed By: #### C MP, MG, PHOS, GGT #### [facility] [address] [place] [address] Dr. Yogi Naidu SEG % 86.0 % Critically high 43.0-75.0 [facility] Comment on above: Performed By: #### C MP, MG, PHOS, GGT #### [facility] [address] [place] [address] Dr. Yogi Naidu WBC 6.2 103/ul Normal 4.0-11.0 [facility] Comment on above: Performed By: #### C MP, MG, PHOS, GGT #### [facility] [address] [place] [address] Dr. Yogi Naidu GGTon 11-21-2021 Gamma glutamyl transferase [Catalytic activity/Vol] 35 U/L Normal 15-85 [facility] Comment on above: Performed By: #### C MP, MG, PHOS, GGT #### [facility] [address] [place] [address] Dr. Yogi Naidu MAGNESIUMon 11-21-2021 Magnesium [Mass/Vol] 1.9 mg/dL Normal 1.8-2.4 [facility] Comment on above: Performed By: #### C MP, MG, PHOS, GGT #### [facility] [address] [place] [address] Dr. Yogi Naidu PHOSPHORUSon 11-21-2021 Phosphate [Mass/Vol] 3.0 mg/dL Normal 2.6-4.7 [facility] Comment on above: Performed By: #### C MP, MG, PHOS, GGT #### [facility] [address] [place] [address] Dr. Yogi Naidu PROF 14(COMP METB)on 022 Albumin [Mass/Vol] 3.8 g/dL Normal 3.4-5.0 [facility] Comment on above: Performed By: #### C MP, MG, PHOS, GGT #### [facility] [address] [place] [address] Dr. Yogi Naidu Albumin/Globulin [Mass ratio] 1.7 {ratio} Normal [facility] Comment on above: Performed By: #### C MP, MG, PHOS, GGT #### [facility] [address] [place] [address] Dr. Yogi Naidu ALP [Catalytic activity/Vol] 80 U/L Normal 46-116 [facility] Comment on above: Performed By: #### C MP, MG, PHOS, GGT #### [facility] [address] [place] [address] Dr. Yogi Naidu ALT [Catalytic activity/Vol] 21 U/L Normal 16-63 [facility] Comment on above: Performed By: #### C MP, MG, PHOS, GGT #### [facility] [address] [place] [address] Dr. Yogi Naidu Anion gap [Moles/Vol] 13.7 mmol/L Normal [facility] Comment on above: Performed By: #### C MP, MG, PHOS, GGT #### [facility] [address] [place] [address] Dr. Yogi Naidu AST [Catalytic activity/Vol] 15 U/L Normal 15-37 [facility] Comment on above: Performed By: #### C MP, MG, PHOS, GGT #### [facility] [address] [place] [address] Dr. Yogi Naidu Bilirubin [Mass/Vol] 0.6 mg/dL Normal 0.2-1.0 [facility] Comment on above: Performed By: #### C MP, MG, PHOS, GGT #### [facility] [address] [place] [address] Dr. Yogi Naidu Calcium [Mass/Vol] 8.9 mg/dL Normal 8.5-10.1 [facility] Comment on above: Performed By: #### C MP, MG, PHOS, GGT #### [facility] [address] [place] [address] Dr. Yogi Naidu Chloride [Moles/Vol] 107 mmol/L Normal 98-107 [facility] Comment on above: Performed By: #### C MP, MG, PHOS, GGT #### [facility] [address] [place] [address] Dr. Yogi Naidu CO2 [Moles/Vol] 25.4 mmol/L Normal 21.0-32.0 [facility] Comment on above: Performed By: #### C MP, MG, PHOS, GGT #### [facility] [address] [place] [address] Dr. Yogi Naidu Creatinine [Mass/Vol] 1.35 mg/dL Critically high 0.70-1.30 [facility] Comment on above: Performed By: #### C MP, MG, PHOS, GGT #### [facility] [address] [place] [address] Dr. Yogi Naidu EGFR-AF JORDANIAN >60 Normal >=60 [facility] Comment on above: Performed By: #### C MP, MG, PHOS, GGT #### [facility] [address] [place] [address] Dr. Yogi Naidu EGFR-NON AF JORDANIAN 52 mL/min/1.73m2 Critically low >=60 [facility] Comment on above: Performed By: #### C MP, MG, PHOS, GGT #### [facility] [address] [place] [address] Dr. Yogi Naidu Globulin (S) [Mass/Vol] 2.3 g/dL Normal [facility] Comment on above: Performed By: #### C MP, MG, PHOS, GGT #### [facility] [address] [place] [address] Dr. Yogi Naidu Glucose [Mass/Vol] 93 mg/dL Normal 74-106 [facility] Comment on above: Performed By: #### C MP, MG, PHOS, GGT #### [facility] [address] [place] [address] Dr. Yogi Naidu Potassium [Moles/Vol] 4.1 mmol/L Normal 3.5-5.1 [facility] Comment on above: Performed By: #### C MP, MG, PHOS, GGT #### [facility] [address] [place] [address] Dr. Yogi Naidu Protein [Mass/Vol] 6.1 g/dL Critically low 6.4-8.2 [facility] Comment on above: Performed By: #### C MP, MG, PHOS, GGT #### [facility] [address] [place] [address] Dr. Yogi Naidu Sodium [Moles/Vol] 142 mmol/L Normal 136-145 [facility] Comment on above: Performed By: #### C MP, MG, PHOS, GGT #### [facility] [address] [place] [address] Dr. Yogi Naidu Urea nitrogen [Mass/Vol] 30.0 mg/dL Critically high 7.0-18 .0 [facility] Comment on above: Performed By: #### C MP, MG, PHOS, GGT #### [facility] [address] [place], [place] [address] Dr. Yogi Naidu Urea nitrogen/Creatinine [Mass ratio] 22.2 mg/mg Normal [facility] Comment on above: Performed By: #### C MP, MG, PHOS, GGT #### [facility] [address] [place], [place] [address] CHEST W IVCONon 0 CT CHEST W IVCON * * *Final Report* * * DATE OF EXAM: Apr 16 2020 12:22PM [facility] 0539 - CT CHEST W [...] the abdomen and pelvis are dictated separately. Senior Actuarial Analyst (topogram) images: No additional findings. - IMPRESSION: Stable exam with no compelling evidence of intrathoracic metastatic disease. Small nonspecific (<6 mm) pulmonary nodules are unchanged, most of these nodules are unchanged since 2012 and are likely benign. License Registration Examiner: PSCB Transcribe Date/Time: Apr 16 2020 12:52P Dictated by : ESDRAS SALAZAR MD This examination was interpreted and the report reviewed and electronically signed by: ESDRAS SALAZAR MD on Apr 16 2020 1:05PM EST [id number] [facility] CT LIVER/PELVIS WO/W IVCONon 04-16-2020 CT LIVER/PELVIS WO/W IVCON * * *Final Report* * * DATE OF EXAM: Apr 16 2020 12:22PM [facility] 0551 - CT LIVER/PELVIS WO/W [...] subcentimeter hypervascular lesion in the pancreatic head. License Registration Examiner: URSTAM Transcribe Date/Time: Apr 16 2020 12:37P Dictated by : HAIR GUTIÉRREZ MD This examination was interpreted and the report reviewed and electronically signed by: HAIR GUTIÉRREZ MD on Apr 16 2020 12:47PM EST [id number] Normal [facility] NURSING PROGon 04-16-2020 NURSING PROG HNO ID: [id number] Author: Latisha Boles (Rn) TEENA Hernandez Service: [...] DATE: April 16, 2020 TIME: 12:00 PM [facility] PROGRESSon 04-16-2020 PROGRESS HNO ID: [id number] Author: Kasey Soto (Rt) Service: Radiology Author Type: Histopathologist Type: Progress Notes Filed: 04/16/2020 12:13 PM [...] RT Jonnie April 16, 2020 12:05 PM [facility] Wilbert 04-10-2020 CNPN Telephone (AVXRPR) GEORGESUSAN ([id number]) 1950 M TRN Date Time Provider Department 04/10/20 REBECA ACEVEDO) AVXRPR During your visit today, we recorded [...] Encounter Status:Closed by REBECA ACEVEDO on 04/10/20 [facility] Vital Signs Date Time Vital Sign Value Performing Clinician Facility 08-13-2023 08:43-0500 Blood Pressure Location Sugey Lue [facility] 08-13-2023 08:43-0500 Diastolic blood pressure 84 mm[Hg] S[facility] 08-13-2023 08:43-0500 Systolic blood pressure 132 mm[Hg] Sugey Lue [facility] 05-27-2023 09:51-0500 Blood Pressure Location Sugey Lue [facility] 05-27-2023 09:51-0500 Diastolic blood pressure 83 mm[Hg] Sugey Lue [facility] 05-27-2023 09:51-0500 Heart rate 92 /min Sugey Lue [facility] 05-27-2023 09:51-0500 Respiratory rate 16 /min Sugey Lue [facility] 05-27-2023 09:51-0500 Systolic blood pressure 131 mm[Hg] Sugey Lue [facility] 04-10-2023 08:37-0400 Body height 182.9 cm Shea Brannon MD Work Phone: [place] 04-10-2023 08:37-0400 Body mass index (BMI) [Ratio] 25.09 kg/m2 Shea Brannon MD Work Phone: [place] 04-10-2023 08:37-0400 Body weight 83.92 kg Shea Brannon MD Work Phone: [place] 04-10-2023 08:37-0400 Diastolic blood pressure 58 mm[Hg] Shea Brannon MD Work Phone: [place] 04-10-2023 08:37-0400 Heart rate 62 /min Shea Brannon MD Work Phone: [place] 04-10-2023 08:37-0400 Systolic blood pressure 106 mm[Hg] Shea Brannon MD Work Phone: [place] 02-25-2023 09:09-0400 Blood Pressure Location Sugey Lue [facility] 02-25-2023 09:09-0400 Diastolic blood pressure 68 mm[Hg] Sugey Lue [facility] 02-25-2023 09:09-0400 Heart rate 68 /min Sugey Lue [facility] 02-25-2023 09:09-0400 Respiratory rate 16 /min Sugey Lue [facility] 02-25-2023 09:09-0400 Systolic blood pressure 130 mm[Hg] Sugey Lue [facility] 01-01-2023 13:30-0400 Body height 182.88 cm Imad Asaad Other [employer] Other 01-01-2023 13:30-0400 Body mass index (BMI) [Ratio] 24.41 kg/m2 Imad Asaad Other [employer] [facility] [employer] Other 01-01-2023 13:30-0400 Body weight 81.65 kg Imad Asaad Other [employer] Other 01-01-2023 13:30-0400 Diastolic blood pressure 76 mm[Hg] Imad Asaad Other [facility] [employer] Other 01-01-2023 13:30-0400 Systolic blood pressure 146 mm[Hg] Imad Asaad Other [facility] [employer] Other 12-11-2022 13:53-0400 Diastolic blood pressure 78 mm[Hg] DO Elvira Bunting Work Phone: [facility] 12-11-2022 13:53-0400 Heart rate 74 /min DO Elvira Bunting Work Phone: [facility] 12-11-2022 13:53-0400 Respiratory rate 16 /min DO Elvira Bunting Work Phone: [facility] 12-11-2022 13:53-0400 SaO2% (BldA) [Mass fraction] 98 % DO Elvira Bunting Work Phone: [facility] 12-11-2022 13:53-0400 Systolic blood pressure 125 mm[Hg] DO Elvira Bunting Work Phone: [facility] 12-11-2022 11:28-0400 Body height 182.88 cm DO Elvira Bunting Work Phone: [facility] 12-11-2022 11:28-0400 Body weight 78.92 kg DO Elvira Bunting Work Phone: [facility] 11-11-2022 07:42-0400 Body height 185.42 cm DO Elvira Bunting Work Phone: [facility] 11-11-2022 07:42-0400 Body weight 104.32 kg DO Elvira Bunting Work Phone: [facility] 10-08-2022 08:08-0400 Blood Pressure Location Sugey Lue [facility] 10-08-2022 08:08-0400 Diastolic blood pressure 96 mm[Hg] Sugey Lue [facility] 10-08-2022 08:08-0400 Heart rate 98 /min Sugey Lue [facility] 10-08-2022 08:08-0400 Systolic blood pressure 137 mm[Hg] Sugey Lue [facility] 09-10-2022 09:34-0400 Blood Pressure Location Sugey Lue [facility] 09-10-2022 09:34-0400 Diastolic blood pressure 89 mm[Hg] Sugey Lue [facility] 09-10-2022 09:34-0400 Heart rate 86 /min Sugey Lue [facility] 09-10-2022 09:34-0400 Respiratory rate 16 /min Sugey Lue [facility] 09-10-2022 09:34-0400 Systolic blood pressure 140 mm[Hg] Sugey Arteaga [facility] 03-27-2022 15:30-0400 Body height 182.88 cm Elvira R Bunting Work Phone: [facility] 250 DO Work Phone: 03-27-2022 15:30-0400 Body mass index (BMI) [Ratio] 26.72 kg/m2 Evlira R Bunting Work Phone: [facility] 250 DO Work Phone: 03-27-2022 15:30-0400 Body surface area Derived from formula 2.12 m2 Elvira R Bunting Work Phone: [facility] 250 DO Work Phone: 03-27-2022 15:30-0400 Body weight 89.36 kg Elvira R Bunting Work Phone: [facility] DO Work Phone: 03-27-2022 15:30-0400 Diastolic blood pressure 80 mm[Hg] Elvira R Bunting Work Phone: [facility] DO Work Phone: 03-27-2022 15:30-0400 Heart rate 68 /min Elvira R Bunting Work Phone: [facility] DO Work Phone: 03-27-2022 15:30-0400 Systolic blood pressure 126 mm[Hg] Elvira R Bunting Work Phone: [facility] DO Work Phone: 12-24-2021 08:22-0400 Blood Pressure Location Mike Alves Jr. [facility] 12-24-2021 08:22-0400 Diastolic blood pressure 79 mm[Hg] Mike Alves Jr. [facility] 12-24-2021 08:22-0400 Heart rate 100 /min Mike Alves Jr. [facility] 12-24-2021 08:22-0400 Respiratory rate 16 /min Mike Alves Jr. [facility] 12-24-2021 08:22-0400 Systolic blood pressure 107 mm[Hg] Mike Alves Jr. [facility] Encounters Encounter Date Encounter Type Care Provider Facility Start: 02-17-2024 ambulatory Sugey Arteaga Facility:[facility] Start: 02-05-2024 End: 02-05-2024 Patient encounter procedure DO Elvira Bunting Work Phone: [facility] Start: 02-05-2024 End: 02-05-2024 ambulatory DO Elvira Bunting Work Phone: [facility] Work Phone: Start: 12-04-2023 E-mail encounter fro m caregiver Yulisa Lewis RN [facility] Start: 12-04-2023 Patient encounter procedure Yulisa Lewis RN [facility] Comment on above: Lab Reminder Start: 11-06-2023 End: 11-06-2023 Patient encounter procedure DO Elvira Bunting Work Phone: [facility] Start: 11-06-2023 End: 11-06-2023 ambulatory DO Elvira Bunting Work Phone: [facility] Work Phone: Start: 10-24-2023 Refill Nely Jimenez s PULL OUT OPERATOR.TECHNICAL SERVICES REPRESENTATIVE Work Phone: [facility] Comment on above: Refill Request Start: 08-17-2023 Refill Nely Jimenez s PULL OUT OPERATOR.TECHNICAL SERVICES REPRESENTATIVE Work Phone: [facility] Comment on above: Refill Request Start: 08-13-2023 End: 08-13-2023 Patient encounter procedure Sugey Arteaga [facility] [place] Start: 08-07-2023 End: 08-07-2023 ambulatory Branden Bryant Trace Facility:[facility] Start: 07-27-2023 Telephone encounter Yulisa Lewis RN [facility] Comment on above: Insurance Authorizat ion (Tacrolimus ) Start: 05-27-2023 End: 05-28-2023 ambulatory Sugey MontesShaylee Chandler Facility:[facility] [place] Start: 05-27-2023 End: 05-27-2023 Patient encounter procedure [facility]ugey MontesShaylee Chandler [facility] Start: 05-04-2023 End: 05-04-2023 Patient encounter procedure DO Elvira Bunting Work Phone: [facility] Start: 05-04-2023 End: 05-04-2023 ambulatory DO Elvira Bunting Work Phone: [facility] Work Phone: Start: 04-10-2023 End: 04-10-2023 ambulatory [facility] Start: 04-10-2023 End: 04-10-2023 Office outpatient visit 15 minutes Shea Brannon MD Work Phone: [facility] Comment on above: Sick sinus syndrome (CMS/HCC) (Primary Dx); Essential hypertension; Mixed hyperlipidemia; Overweight with body mass index (BMI) of 26 to 26.9 in adult; Liver transplanted (CMS/HCC); Pacemaker Start: 02-25-2023 End: 02-26-2023 ambulatory Sugey MontesShaylee Chandler Facility:[facility] [place] Start: 02-25-2023 End: 02-25-2023 Patient encounter procedure Sugey MontesShaylee Johnsvesta [facility] Start: 02-23-2023 Telephone encounter Yulisa Lewis RN [facility] Comment on above: Patient Update; Dewey rs (New standing lab order ) Start: 01-15-2023 End: 01-15-2023 ambulatory DO Elvira Bunting Work Phone: [facility] Work Phone: Start: 01-15-2023 End: 01-15-2023 Patient encounter procedure DO Elvira Bunting Work Phone: [facility] Work Phone: Start: 01-01-2023 End: 01-01-2023 ambulatory Imad Asaad Other [employer] Other Start: 01-01-2023 Patient encounter procedure Imad Asaad [facility] Start: 12-11-2022 End: 12-11-2022 Admission to same day surgery center DO Elvira Bunting Work Phone: [facility] Work Phone: Start: 12-08-2022 End: 12-08-2022 ambulatory Imad Asaad Other [employer] Other Start: 12-08-2022 Telephone encounter Imad Asaad [facility] Start: 11-28-2022 End: 11-28-2022 ambulatory Imad Asaad Other [employer] Other Start: 11-28-2022 Telephone encounter Imad Asaad [facility] Start: 11-12-2022 End: 11-12-2022 ambulatory Imad Asaad Other [employer] Other Start: 11-12-2022 Telephone encounter Imad Asaad [facility] Start: 11-11-[address] Elvira Schultz Facility:[id number] Start: 11-11-2022 End: 11-11-2022 ambulatory DO Elvira Bunting Work Phone: [facility] Work Phone: Start: 11-11-2022 End: 11-11-2022 Patient encounter procedure DO Elvira Bunting Work Phone: [facility] [place] Work Phone: Start: 11-06-2022 End: 11-06-2022 Patient encounter procedure DO Elvira Bunting Work Phone: [facility] [place] Work Phone: Start: 10-31-2022 End: 10-31-2022 Patient encounter procedure DO Elvira Bunting Work Phone: [facility] Start: 10-31-[address] Elvira Schultz Facility:[id number] Start: 10-20-2022 End: 10-21-[address] ELVIRA SCHULTZ Facility:[facility]1 Start: 10-09-[address] Elvira Schultz Facility:[id number] Start: 10-09-2022 End: 10-09-2022 ambulatory DO Elvira Bunting Work Phone: [facility] Work Phone: Start: 10-09-2022 End: 10-09-2022 Patient encounter procedure DO Elvira Bunting Work Phone: [facility] Start: 10-08-2022 End: 10-09-2022 ambulatory Sugey Arteaga Facility:[facility] [place] Start: 10-08-2022 End: 10-08-2022 Patient encounter procedure Sugey Arteaga [facility] [place] Start: 09-26-2022 End: 09-26-[address] ELVIRA SCHULTZ Facility: Start: 09-22-2022 End: 09-23-2022 ambulatory Sugey MontesShaylee Chandler [facility] Start: 09-22-2022 End: 09-22-2022 Patient encounter procedure Sugey Arteaga [facility] Start: 09-17-2022 End: 09-18-2022 ambulatory Kevin FREDERIC Facility:[facility] Start: 09-10-2022 End: 09-11-2022 ambulatory Sugey Arteaga Facility:[facility] Start: 09-10-2022 End: 09-10-2022 Patient encounter procedure Sugey Arteaga [facility] [place] Start: 09-03-2022 Refill Nely parker APRN.CNP Work Phone: [facility] Comment on above: Refill Request Start: 08-19-2022 End: 08-20-[address] ELVIRA SCHULTZ Facility:H1 Start: 07-22-2022 End: 07-23-[address] ELVIRA SCHULTZ Facility:[facility]1 Start: 06-16-2022 End: 06-17-[address] ELVIRA SCHULTZ Facility:[facility]1 Start: 05-19-2022 End: 05-20-[address] ELVIRA SCHULTZ Facility:[facility]1 Start: 05-14-2022 Rx Renewal Elvira Pizano ng Work Phone: [facility] 250 DO Work Phone: Start: 04-30-[address] Elvira Schultz Facility:[id number] Start: 04-30-2022 End: 04-30-2022 ambulatory DO Elvira Bunting Work Phone: [facility] Work Phone: Start: 04-30-2022 End: 04-30-2022 Patient encounter procedure DO Elvirafer Schultz Work Phone: [facility] Start: 04-21-2022 End: 04-22-2022 ambulatory DOCTOR MISC Facility:H1 Start: 03-27-2022 Office outpatient vi sit 15 minutes Elvira R Bunting Work Phone: [facility] DO Work Phone: Start: 03-27-[address] Shea Brannon Facility: Start: 03-17-2022 End: 03-18-2022 ambulatory DOCTOR MISC Facility:H1 Start: 02-26-2022 End: 02-26-2022 Patient encounter procedure VINICIUS RUSSELL [facility] Start: 02-18-2022 End: 02-19-[address] ELVIRA SCHULTZ Facility:H1 Start: 01-22-2022 Encounter for preprocedural laboratory examination DR MIKE June [facility] Start: 01-22-2022 End: 01-22-[address] ELVIRA SCHULTZ Facility:H1 Start: 01-21-2022 End: 01-22-[address] MIKE June Facility:H1 Start: 01-21-2022 End: 01-22-2022 Encounter for preprocedural laboratory examination DR MIKE June Facility:H1 Start: 01-14-2022 Encounter for preprocedural cardiovascular examination DR MIKE June [facility] Start: 01-13-2022 End: 01-14-2022 Encounter for preprocedural cardiovascular examination DR ELVIRA SCHULTZ Facility:H1 Start: 01-13-2022 End: 08-02-[address] ELVIRA SCHULTZ Facility:H1 Start: 01-07-2022 Rx Renewal Shea gill MD Work Phone: [facility] 250 DO Work Phone: Start: 12-24-2021 End: 12-24-2021 Patient encounter procedure Mike Cox Long More [facility] Start: 12-23-2021 Telephone encounter Shea umanzor MD Work Phone: [facility] 600 DO Work Phone: Start: 12-21-2021 End: [...] In Error Start: 09-15-2021 Refill Nely parker APRN.TECHNICAL SERVICES REPRESENTATIVE Work Phone: [facility] Comment on above: Refill Request Start: 05-13-2021 Rx Renewal Shea gill MD Work Phone: [facility] 250 DO Work Phone: Start: 03-26-2017 Ambulatory SHEA BRANNON Facedmond lity:[id number] Procedures Date Procedure Procedure Detail Performing Clinician Start: 04-09-2023 H/O: liver recipient Liver transplanted Shea Brannon MD Work Phone: Start: 02-18-2023 Lipid 1996 panel - Serum or Plasma Taqueria Lewis RN Start: 01-15-2023 Dual energy X-ray absorptiometry DO [employer] [place] Work Phone: Start: 12-11-2022 Esophagogastroduodenoscopy DO Elvira serrano Work Phone: Start: 11-11-2022 MR prostate wo/w con DO Elvira Schultz Work Phone: Start: 11-06-2022 Ova and Parasite Result 1 DO Elvira Richard ing Work Phone: Start: 11-06-2022 Ova OR parasites identification DO [employer] [place] Work Phone: Start: 11-06-2022 Stool culture for bacteria DO Elvira serrano Work Phone: Start: 09-22-2022 Cystoscopy Sugey Arteaga Start: 08-19-2022 PSA screening DOCTOR MISC Comment on above: Performed By: #### BOX #### [facility] [address] [place] [address] Dr. Yogi Naidu Start: 01-22-2022 Transrectal biopsy of prostate using ultrasound guidance Sugey Chandler Start: 12-21-2021 PSA screening DOCTOR MISC Comment on above: Performed By: #### ERUR, UMICRO #### [facility] [address] [place] [address] Dr. Yogi Naidu Start: 11-09-2019 Transrectal biopsy of prostate using ultrasound guidance Mike Alves Jr. Start: 05-19-2018 Transrectal biopsy of prostate using ultrasound guidance Mike Alves Jr. Start: 01-19-2015 H/O: liver recipient Liver transplanted Nely Ibarra APRN.TECHNICAL SERVICES REPRESENTATIVE Work Phone: Start: 02-11-2012 Colonoscopy Nely Ibarra [...] repla alessandro by transplant (HCC) Nely Ibarra PULL OUT OPERATOR.TECHNICAL SERVICES REPRESENTATIVE Work Phone: H/O: liver recipient Transplante d liver (HCC) Cesar Borrego MD Work Phone: H/O: liver recipient Liver transplanted Simon Brannon MD Work Phone: H/O: liver recipient Liver trans plant recipient DO Elvira Schultz Work Phone: H/O: liver recipient Liver repla alessandro by transplant (HCC) Nely Ibarra PULL OUT OPERATOR.TECHNICAL SERVICES REPRESENTATIVE Work Phone: H/O: liver recipient Liver trans planted (CMS/HCC) Shea Brannon MD Work Phone: H/O: liver recipient Liver repla alessandro by transplant (HCC) Nely Ibarra PULL OUT OPERATOR.TECHNICAL SERVICES REPRESENTATIVE Work Phone: H/O: liver recipient Transplante d liver (HCC) Nely Ibarra PULL OUT OPERATOR.TECHNICAL SERVICES REPRESENTATIVE Work Phone: Hernia repair Shea Brannon MD Work Phone: Surgical procedure Shea Brannon MD Work Phone: Comment on above: vein removal from leg; Tonsillectomy Mike ch Transplantation of liver Elsy Brannon MD Work Phone: Transplantation of liver Deanne Arteaga Plan of Treatment Date Care Activity Detail Author Start: 02-19-2028 Lipid panel Lipid Screening [facility] Start: 02-19-2028 LIPID SCREEN LIPID SCREEN [facility] Start: 07-22-2027 LIPID SCREEN LIPID SCREEN [facility] Start: 10-15-2026 LIPID SCREEN LIPID SCREEN [facility] Start: 08-19-2026 LIPID SCREEN LIPID SCREEN [facility] Start: 08-16-2026 Diabetes Screening Diabetes Screening [facility] Start: 06-16-2026 Diabetes Screening Diabetes Screening [facility] Start: 02-18-2026 DIABETES SCREEN DIABETES SCREEN [facility] Start: 08-19-2025 DIABETES SCREEN DIABETES SCREEN [facility] Start: 10-15-2024 DIABETES SCREEN DIABETES SCREEN [facility] Start: 08-19-2024 DIABETES SCREEN DIABETES SCREEN [facility] Start: 04-15-2024 End: 04-15-2024 Patient encounter procedure 04/15/2024 8:30 AM EDT Office Visit [facility] [address] [facility] [address] [place] [id number] Shea Brannon MD [address] [facility] [place] [address] [facility] Start: 06-15-2023 Advance Directive Discussion Advance Directive Discussion [facility] Start: 06-15-2023 Behavioral Health Screening Behavioral Health Screening [facility] Start: 06-15-2023 Depression Assessment Depression Assessment [facility] Start: 04-10-2023 FUV, Provider: Shea Brannon, Status: Luke, Time: 8:30 AM FUV, Provider: Shea Brannon, Status: Luke, Time: 8:30 AM [facility] 250 DO Work Phone: Start: 02-13-2023 Influenza vaccination INFLUENZA (#1) [facility] Start: 12-11-2022 [facility] Start: 06-15-2022 ADVANCE DIRECTIVE DISCUSSION ADVANCE DIRECTIVE DISCUSSION [facility] Start: 06-15-2022 DEPRESSION ASSESSMENT DEPRESSION ASSESSMENT [facility] Start: 02-13-2022 Influenza vaccination [facility] Start: 01-13-2022 FUV, Provider: Shea Brannon, Status: Luke, Time: 8:20 AM FUV, Provider: Shea Brannon, Status: Pen, Time: 8:20 AM [facility] 600 DO Work Phone: Start: 12-06-2021 FUV, Provider: Shea Brannon, Status: Pen, Time: 8:30 AM FUV, Provider: Shea Brannon, Status: Pen, Time: 8:30 AM [facility] 250 DO Work Phone: Start: 06-15-2021 ADVANCE DIRECTIVE DISCUSSION ADVANCE DIRECTIVE DISCUSSION [facility] Start: 04-27-2021 Pneumococcal Vaccine: 65+ Years (3 - PPSV23 or PCV20) Pneumococcal Vaccine: 65+ Years (3 - PPSV23 or PCV20) [place] Start: 06-22-2020 Pneumococcal Vaccine: 65+ (3 of 3 - PPSV23 or PCV20) Pneumococcal Vaccine: 65+ (3 of 3 - PPSV23 or PCV20) [facility] Start: 06-22-2020 Shingrix Vaccine (2 of 2) Shingrix Vaccine (2 of 2) [facility] Start: 06-22-2020 Zoster Vaccines (2 of 2) Zoster Vaccines (2 of 2) [place] Start: 10-26-2017 PNEUMOVAX AGE 65 AND OVER WITH 5YR LOOKBACK (#1) PNEUMOVAX AGE 65 AND OVER WITH 5YR LOOKBACK (#1) [facility] Start: 2017 Abdominal aortic aneurysm screening Abdominal Aortic Aneurysm (AAA) Screening [place] Start: 2017 ADULT PREVNAR ADULT PREVNAR [facility] Start: 2017 ADULT PREVNAR-13 ADULT PREVNAR-13 [facility] Start: 10-26-2013 PNEUMOCOCCAL: 65+ (2 - PCV) PNEUMOCOCCAL: 65+ (2 - PCV) [facility] Start: 02-10-2013 Colonoscopy COLONOSCOPY [facility] Start: 02-10-2013 COLORECTAL CANCER SCREENING COLORECTAL CANCER SCREENING [facility] Start: 02-10-2013 Screening for malignant neoplasm of colon [facility] Start: 11-23-2012 HEPATITIS A (2 of 3 - Hep A Twinrix risk 3-dose series) HEPATITIS A (2 of 3 - Hep A Twinrix risk 3-dose series) [facility] Start: 11-23-2012 Hepatitis A Vaccines (2 of 3 - Hep A Twinrix risk 3-dose series) Hepatitis A Vaccines (2 of 3 - Hep A Twinrix risk 3-dose series) [place] Start: 11-23-2012 HEPATITIS B (2 of 3 - Hep B Twinrix risk 3-dose series) HEPATITIS B (2 of 3 - Hep B Twinrix risk 3-dose series) [facility] Start: 11-23-2012 Hepatitis B Vaccines (2 of 3 - Hep B Twinrix risk 3-dose series) Hepatitis B Vaccines (2 of 3 - Hep B Twinrix risk 3-dose series) [place] Start: 2012 RSV Vaccine (1 - 1-dose 60+ series) RSV Vaccine (1 - 1-dose 60+ series) [facility] Start: 2002 SHINGRIX VACCINE (1 of 2) SHINGRIX VACCINE (1 of 2) [facility] Start: 1997 COLOGUARD (FIT-DNA) COLOGUARD (FIT-DNA) [facility] Start: [address] COLONOGRAPHY [facility] Start: 1997 FECAL OCCULT BLOOD FECAL OCCULT BLOOD [facility] Start: 1997 Screening for malignant neoplasm of colon [facility] Start: 1997 SIGMOIDOSCOPY SIGMOIDOSCOPY [facility] Start: 1974 DTaP/Tdap/Td Vaccines (1 - Tdap) DTaP/Tdap/Td Vaccines (1 - Tdap) [place] Start: 1971 SHINGRIX VACCINE (1 of 2) SHINGRIX VACCINE (1 of 2) [facility] Start: 1971 Urine microalbumin profile [facility] Start: 1964 Adult depression screening assessment DEPRESSION SCREENING [facility] Start: 1964 COVID-19 VACCINE (1) COVID-19 VACCINE (1) [facility] Start: 1957 COVID-19 VACCINE (#1) COVID-19 VACCINE (#1) [facility] Start: 1952 COVID-19 VACCINE (#1) COVID-19 VACCINE (#1) [facility] Start: 1952 ABDOMINAL AORTIC ANEURYSM SCREENING ABDOMINAL AORTIC ANEURYSM SCREENING [facility] Start: 1952 Abdominal aortic aneurysm screening Abdominal Aortic Aneurysm Screening [facility] Start: 1952 Lipid panel Lipid Panel [place] Start: 1952 Medicare Annual Wellness Visit Medicare Annual Wellness Visit (AWV) [place] Start: 1952 Screening for malignant neoplasm of colon [place] Calprotectin [Mass/m ass] in Stool [facility] Ova and parasites identified in Unspecified specimen by Light microscopy [facility] Patient Education Gastritis Esop hageal Dilation Colon Polypectomy (DC) [facility] Work Phone: Potassium [Moles/mas s] in Stool [facility] Immunizations Immunization Date Immunization Notes Care Provider Fa tina 01-27-2023 Flu vaccine, quadrivalent, high-dose, preservative free, age 65y+ (FLUZONE) Shea Brannon MD Work Phone: [place] Work Phone: 01-27-2023 influenza virus vaccine, unspecified formulation Sugey Arteaga [facility] 05-30-2022 Flu vaccine, quadrivalent, high-dose, preservative free, age 65y+ (FLUZONE) Shea Brannon MD Work Phone: [place] Work Phone: 05-30-2022 influenza virus vaccine, unspecified formulation Sugey Arteaga [facility] 04-20-2021 Fluad Quadrivalent 0 .5 ML Intramuscular Prefilled Syringe Elvira Schultz Work Phone: [facility] DO Work Phone: 04-20-2021 influenza virus vaccine, unspecified formulation Sugey Arteaga [facility] 04-27-2020 Fluad Quadrivalent 0 .5 ML Intramuscular Prefilled Syringe Elvira R Bunmaggie Work Phone: [facility] 250 DO Work Phone: 04-27-2020 influenza virus vaccine, unspecified formulation Sugey Arteaga [facility] 04-27-2020 pneumococcal conjuga te vaccine, 13 valent Elvira R Bunting Work Phone: [facility] Administration 04-27-2020 zoster vaccine recombinant Elvira R Bunting Work Phone: [facility] 03-15-2020 influenza virus vaccine, unspecified formulation Shea Brannon MD Work Phone: [facility] 03-15-2020 influenza, seasonal, injectable Shea Brannon MD Work Phone: [place] Work Phone: 02-16-2019 influenza virus vaccine, unspecified formulation Sugey Arteaga [facility] 02-16-2019 influenza, high dose seasonal, preservative-free Elvira R Bunting Work Phone: [facility] 250 DO Work Phone: 06-15-2018 influenza virus vaccine, unspecified formulation Shea Brannon MD Work Phone: [facility] 06-15-2018 influenza, seasonal, injectable Shea Brannon MD Work Phone: [place] Work Phone: 04-15-2018 influenza virus vaccine, unspecified formulation Shea Brannon MD Work Phone: [facility] 600 DO Work Phone: 02-22-2018 influenza virus vaccine, unspecified formulation Sugey Luvesta [facility] 02-22-2018 influenza, high dose seasonal, preservative-free Elvira R Bunting Work Phone: [facility] 250 DO Work Phone: 02-16-2017 influenza virus vaccine, unspecified formulation Shea Brannon MD Work Phone: [facility] 600 DO Work Phone: 02-11-2017 influenza virus vaccine, unspecified formulation Sugey Luvesta [facility] 02-11-2017 influenza, injectabl e, quadrivalent, preservative free Shea Brannon MD Work Phone: [place] Work Phone: 04-23-2016 influenza virus vaccine, unspecified formulation Usgey Lue [facility] 04-23-2016 influenza, injectabl e, quadrivalent, preservative free Elvira R Bunting Work Phone: [place] [address] DO Work Phone: 04-12-2015 influenza virus vaccine, unspecified formulation Sugey Lue [facility] 04-12-2015 influenza, injectabl e, quadrivalent, preservative free Elvira R Bunting Work Phone: [facility] 250 DO Work Phone: 10-26-2012 hepatitis A and hepatitis B vaccine Nely Ibarra PULL OUT OPERATOR.TECHNICAL SERVICES REPRESENTATIVE Work Phone: [facility] 10-26-2012 pneumococcal polysaccharide vaccine, 23 valent Nely Ibarra PULL OUT OPERATOR.TECHNICAL SERVICES REPRESENTATIVE Work Phone: [facility] 10-26-2012 hepatitis B vaccine, unspecified formulation Nely Ibarra PULL OUT OPERATOR.TECHNICAL SERVICES REPRESENTATIVE Work Phone: [facility] Payers Date Payer Category Payer Self-pay [id number] 2021 Medicare ANTHEM MEDICARE ANTHEM MEDICARE ADVANTAGE [id number] 2021-Present [address] [place] [address] [id number] 2021 Unknown ANTHEM BLUE CROS S AND BLUE SHIELD ANTHEM MEDIBLUE ACCESS [id number] 2021-Present [phone] [address] [place] [address] PPO [id number] [id number] 2019 Unknown 1959 Medicare [id number] 1950 Unknown [id number] 2.16.840.1.148780.3.579.2.593 1952 Unknown [id number] 2.16.840.1.562849.3.579.2.59 1952 Unknown [id number] 2.16.840.1.497211.3.579.2.593 1952 Unknown [id number] 2.16.840.1.033480.3.579.2.593 1952 Unknown [id number] 2.16.840.1.206443.3.579.2.593 1952 Unknown [id number] 2.16.840.1.621835.3.579.2.593 1952 Unknown [id number] 2.16.840.1.182085.3.579.2.593 1952 Unknown [id number] 2.16.840.1.021495.3.579.2.593 1952 Unknown [id number] 2.16.840.1.330652.3.579.2.593 1952 Unknown [id number] 2.16.840.1.251777.3.579.2.593 1952 Unknown [id number] 2.16.840.1.193094.3.579.2.593 1952 Unknown [id number] 2.16.840.1.922179.3.579.2.593 1952 Unknown [id number] 2.16.840.1.162781.3.579.2.593 1952 Unknown [id number] 2.16.840.1.219490.3.579.2.593 1952 Unknown [id number] 2.16.840.1.638823.3.579.2.593 1952 Unknown [id number] 2.16.840.1.733954.3.579.2.593 1952 Unknown [id number] 2.16.840.1.266538.3.579.2.593 1952 Unknown [id number] 2.16.840.1.658210.3.579.2.356 1952 Unknown [id number] 2.16.840.1.426774.3.579.2.356 1952 Unknown [id number] 2.16.840.1.620061.3.579.2.356 1952 Unknown [id number] 2.16.840.1.673338.3.579.2.356 1952 Unknown [id number] 2.16.840.1.749624.3.579.2.356 1952 Unknown [id number] 2.16.840.1.386221.3.579.2.124 4 1952 Unknown [id number] 2.16.840.1.613094.3.579.2.727 1952 Unknown [id number] 2.16.840.1.466405.3.579.2.727 1952 Unknown [id number] 2.16.840.1.024997.3.579.2.727 1952 Unknown [id number] 2.16.840.1.849076.3.579.2.727 1952 Unknown [id number] 2.16.840.1.893971.3.579.2.727 1952 Unknown [id number] 2.840.1.360379.3.579.2.727 Medicare Medicare [id number] Unknown [id number] Unknown HCAP/HFA/FAP Active [id number] Unknown [id number] 2.840.1.324214.3.579.2.531 Unknown [id number] 2.840.1.569950.3.579.2.531 Unknown [id number] 2.16840.1.505613.3.579.2.531 Unknown [id number] 2.840.1.258898.3.579.2.531 Social History Date Type Detail Facility Start: 12-24-2021 End: 12-11-2022 Tobacco smoking status NHIS Ex-smoker [facility] Start: 02-18-2017 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 intake 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 (finding) [facility] Start: 1950 Sex Assigned At Not on file [facility] Start: 08-13-2023 Tobacco smoking status Never [facility] Juan Diego Start: 12-11-2017 End: 05-21-2020 Sex Assigned At Male [facility] Juan Diego Start: 12-11-2017 End: 05-21-2020 Caffeine use Caffeine use [facility] 600 DO Work Phone: Comment on above: 1.5 cups of coffee a nd a quart of Iced Tea daily; quit around ; 1.5 cups of coffee; Start: 1950 Sex Assigned At Male [facility] End: 06-15-1982 History of tobacco use Current smoker [facility] Start: 11-29-2012 End: 04-10-2023 Tobacco use and exposure Smokeless tobacco non-user [facility] End: 06-15-1982 History of tobacco use Cigarette Smoker [facility] Work Phone: Start: 04-10-2023 Alcohol intake Lifetime non-d nella (finding) [place] Work Phone: Start: 03-31-2023 End: 04-10-2023 Exposure to SARS-CoV-2 (event) Not sure [place] Medical Equipment Procedure Code Equipment Code Equipment [...] 08-13-2023 Functional Status N/A [facility] 05-27-2023 Functional Status N/A [facility] 02-25-2023 Functional Status N/A [facility] 10-08-2022 Functional Status N/A [facility] 09-15-2022 Functional Status N/A [facility] 09-10-2022 Functional Status N/A [facility] 02-26-2022 Functional Status N/A [facility] 12-24-2021 Functional Status N/A [facility] Clinical Notes 02-07-2015 to 08-13-2023 Telephone Encounter [...] urethra. Follow these instructions at home: Take upsh-opf-jznqdsw and prescription medicines only as told by [...] provider. Document Revised: 12/18/2021 Document Reviewed: 12/18/2021 [employer] Patient Education 2022 [employer]. Follow Up Care 08/11/2023 16:25:46 With:Chandler CHAVEZ, TAMEKA Mendoza, URO Address: When: Unknown [facility] 07-28-2023 Miscellaneous Notes PA denied, pharmacy was billing incorrectly. Medicare paid for OLT and tacrolimus should be billed under part B. Pharmacy billing incorrectly. Yulisa Lewis RN, BSN, [facility] Tacrolimus PA submitted via [place] website. [place]: [id number] Awaiting coverage determination. Yulisa Lewis RN, BSN, [facility] documented in this encounter [facility] 05-27-2023 Hospital Discharge instructions Patient Education [...] urethra. Follow these instructions at home: Take wmxh-odh-jsmhdji and prescription medicines only as told by [...] provider. Document Revised: 12/18/2021 Document Reviewed: 12/18/2021 [employer] Patient Education 2022 [employer]. Follow Up Care 02/25/2023 09:53:13 With:Chandler CHAVEZ, TAMEKA Mendoza, URO Address: When:Within 9 Month(s) Comments:w/PSA F&T [facility] 04-10-2023 History of Present illness Narrative Subjective [...] (CMS/HCC) 6. Pacemaker documented in this encounter [place] Work Phone: 04-10-2023 Instructions Reina Wagner LPN [...] of your visit. documented in this encounter [place] Work Phone: 02-25-2023 Hospital Discharge instructions Patient [...] treatment? Where to find more information [employer]: www.cancer.org [employer]: www.auanet.org Contact a health care [...] provider. Document Revised: 11/25/2021 Document Reviewed: 11/25/2021 [employer] Patient Education 2022 [employer]. Follow Up Care 11/18/2022 14:45:41 With:Chandler CHAVEZ, TAMEKA Mendoza, URO Address: When:Within 3 Month(s) [facility] 02-23-2023 Miscellaneous Notes Spoke with patient who [...] patent and also faxed to local lab [phone]. Pt verbalized understanding, no further questions at this time. Yulisa Lewis RN, BSN, [facility] documented in this encounter [facility] 01-01-2023 Evaluation note Encounter Date Diagnosis Assessment Notes Dec, Change in bowel habits (ICD-10 - R19.4) Dec, Other dysphagia (ICD-10 - R13.19) [employer] Other 06-16-2023 Evaluation note* Encounter Date Diagnosis Assessment Notes Treatment Notes Treatment Clinical Notes Nov, Age-related osteoporosis without current pathological fracture (ICD-10 - M81.0) [employer] [facility] Other 04-26-2023 Hospital Discharge instructions Patient Education [...] including vitamins, herbs, eye drops, creams, and hose-hzc-zkeiluj medicines. Any problems you or family members [...] provider tells you to take them. Taking uvoa-luu-hdjuwrh medicines, vitamins, herbs, and supplements. Surgery safety [...] provider. Document Revised: 02/25/2022 Document Reviewed: 02/25/2022 [employer] Patient Education 2022 [employer]. Follow Up Care 09/22/2022 08:19:53 With:Chandler CHAVEZ, TAMEKA Mendoza, URO Address: [facility] [place] [address] [phone] When: Unknown [facility] 04-10-2023 Note [id number]:127[facility] 09-22-2022 NoteCystoscopy ? Voiding after the [...] if you have a fever over 100 degrees.[facility] 09-22-2022 Hospital Discharge instructions Patient Education [...] Up Care 09/10/2022 10:23:36 With:Sugey Arteaga Address: [address] [place] [address] [phone] Business (1) [facility] Greg Moreau [address] [address] [phone] Business (1) When: Unknown Comments:Office to schedule follow up in 2-4 wks to review MRI prostate and BPH procedures [facility]03-29-2023 Hospital Discharge instructions Patient Education 09/10/2022 10:13:37 [...] including vitamins, herbs, eye drops, creams, and vwfr-ldq-uawqfsi medicines. This also includes: ?Medicines to assist [...] 07/04/2005 Document Revised: 05/14/2018 Document Reviewed: 03/08/2018 [employer] Patient Education 2020 [employer]. 09/10/2022 10:13:27 Benign Prostatic Hyperplasia Benign Prostatic [...] urethra. Follow these instructions at home: Take kydi-mpn-bzjalro and prescription medicines only as told by [...] 06/01/2006 Document Revised: 04/26/2019 Document Reviewed: 07/06/2017 [employer] Patient Education 2020 [employer]. Follow Up Care 02/26/2022 15:32:46 With:Chandler CHAVEZ, TAMEKA Mendoza, URO Address: When:Within 6 Month(s) Comments:w/BI [facility] 09-14-2022 Hospital Discharge instructions Patient Education 02/26/2022 [...] have oneof these risk factors: ?Being of -[place] descent. ?Having a family history of prostate [...] you: Are older than age 55. Are -[place]. Have a father, brother, or uncle who [...] 03/12/2018 Document Revised: 05/14/2018 Document Reviewed: 03/12/2018 [employer] Patient Education [employer] Follow Up Care 01/02/2022 11:31:28 With:VINICIUS RUSSELL PA-C, URL Address: [address] [place] [address] When:6 months Comments:W/ PSA [facility] 07-12-2022 Hospital Discharge instructions Patient Education 12/24/2021 [...] including vitamins, herbs, eye drops, creams, and shbo-zlr-xozoglk medicines. This also includes: ?Medicines to assist [...] 07/04/2005 Document Revised: 05/14/2018 Document Reviewed: 03/08/2018 [employer] Patient Education 2020 [employer]. Follow Up Care 06/18/2021 08:41:53 With:Long More MD, MARIELLA Argueta Address: [facility] [address] , [place] [address]- When: Unknown [facility] 05-05-2022 Miscellaneous Notes* Telephone Encounter - Yulisa Lewis RN - 10/17/2021 8:51 AM EDT FK reviewed, no changes. [facility] of Past illness Narrative* Problem [...] HE grade 4, serum ammonia 228 at [place] [facility] , admitted 3/ morning. - Per [...] - Intubated on 08/14 en route from [facility] for airway protection. - Tolerating PSV. [...] of this encounter (statuses as of 09/16/2021) [facility]08-26[facility] History of Past illness Narrative* Problem [...] HE grade 4, serum ammonia 228 at [place] [facility] , admitted 3/ morning. - Per family, minor confusion since the last 6 months inspite of being on medications. - Intubated en route to [facility] for airway protection 07/17 AMS. - Diagnostic para, culture NGTD, negative for SBP by counts. - Back to baseline MS 08/17 -extubated PLAN: - Lactulose, zinc and rifaximin. - Follow cultures. DVT prophylaxis 08/14/2012 02/18/2017 Overview: Plan: - SQ heparin. - Pepcid for GI prophylaxis. Mechanically assisted ventilation 08/14/2012 02/18/2017 Overview: - Intubated on 08/14 en route from [facility] for airway protection. - Tolerating PSV. [...] of this encounter (statuses as of 10/17/2021) [facility] History of Past illness Narrative* Problem [...] HE grade 4, serum ammonia 228 at [place] [facility] , admitted 3/ morning. - Per [...] - Intubated on 08/14 en route from [facility] for airway protection. - Tolerating PSV. [...] of this encounter (statuses as of 11/08/2021) [facility]08[facility] History of Past illness Narrative* Problem [...] HE grade 4, serum ammonia 228 at [place] [facility] , admitted 3/ morning. - Per family, minor confusion since the last 6 months inspite of being on medications. - Intubated en route to [facility] for airway protection 2/ AMS. - Diagnostic para, culture NGTD, negative for SBP by counts. - Back to baseline MS 3 -extubated PLAN: - Lactulose, zinc and rifaximin. - Follow cultures. DVT prophylaxis 08/14/2012 02/18/2017 Overview: Plan: - SQ heparin. - Pepcid for GI prophylaxis. Mechanically assisted ventilation 08/14/2012 02/18/2017 Overview: - Intubated on 08/14 en route from [facility] for airway protection. - Tolerating PSV. [...] of this encounter (statuses as of 09/04/2022) [facility] History of Past illness Narrative* Problem [...] HE grade 4, serum ammonia 228 at [place] [facility] , admitted 3/1 morning. - Per family, minor confusion since the last 6 months inspite of being on medications. - Intubated en route to [facility] for airway protection / AMS. - Diagnostic para, culture NGTD, negative for SBP by counts. - Back to baseline MS 08/17 -extubated PLAN: - Lactulose, zinc and rifaximin. - Follow cultures. DVT prophylaxis 08/14/2012 02/18/2017 Overview: Plan: - SQ heparin. - Pepcid for GI prophylaxis. Mechanically assisted ventilation 08/14/2012 02/18/2017 Overview: - Intubated on 08/14 en route from [facility] for airway protection. - Tolerating PSV. [...] of this encounter (statuses as of 02/24/2023) [facility] History of Past illness Narrative* Problem [...] HE grade 4, serum ammonia 228 at [place] [facility] , admitted 3/ morning. - Per [...] - Intubated on 08/14 en route from [facility] for airway protection. - Tolerating PSV. [...] of this encounter (statuses as of 07/28/2023) [facility] History of Past illness Narrative* Problem [...] HE grade 4, serum ammonia 228 at [place] [facility] , admitted 3/ morning. - Per family, minor confusion since the last 6 months inspite of being on medications. - Intubated en route to [facility] for airway protection 07/17 AMS. - Diagnostic para, culture NGTD, negative for SBP by counts. - Back to baseline MS 08/17 -extubated PLAN: - Lactulose, zinc and rifaximin. - Follow cultures. DVT prophylaxis 08/14/2012 02/18/2017 Overview: Plan: - SQ heparin. - Pepcid for GI prophylaxis. Mechanically assisted ventilation 08/14/2012 02/18/2017 Overview: - Intubated on 08/14 en route from [facility] for airway protection. - Tolerating PSV. [...] of this encounter (statuses as of 08/17/2023) [facility] No data available for this section [facility] evaluation + Plan note Future Appointments Appointment Date:08/26/2022 08:00:00 AM Scheduled Provider:Mike Alves Jr., MD Location:[facility] Appointment Type:URO Office Visit Diagnostic Tests Pending * PSA Total 02/26/22 [facility] evaluation + Plan note Future Appointments Appointment Date:09/11/2022 08:00:00 AM Scheduled Provider: Location:[facility] Appointment Type:Urology CALL PAT FT Appointment Date:09/15/2022 09:45:00 AM Scheduled Provider: Location:[facility] Appointment Type:Urology FT Diagnostic Tests Pending * PSA Total 09/10/22 [facility] evaluation + Plan note Future Appointments Appointment Date:10/08/2022 08:00:00 AM Scheduled Provider:Sugey Arteaga MD Location:[facility] Future Appointments Appointment Date:05/27/2023 09:45:00 AM Scheduled Provider:Sugey Arteaag MD Location:[facility] Appointment Type:URO Office Visit [facility] evaluation + Plan note Future Appointments Appointment Date:02/17/2024 09:45:00 AM Scheduled Provider:Sugey Arteaga MD Location:[facility] Appointment Type:URO Office Visit Diagnostic Tests Pending * PSA Free & Total 05/27/23 [facility] evaluation + Plan note Future Appointments Appointment Date:02/17/2024 09:45:00 AM Scheduled Provider:Sugey Arteaga MD Location:[facility] Appointment Type:URO Office Visit Future Scheduled Tests Laboratory* PSA Free & Total 12/14/23 [facility] Evaluation note* Diagnosis Liver replaced by transplant (HCC) Liver replaced by transplant [facility] Diagnosis Need for prophylactic immunotherapy Transplanted liver (HCC) Liver replaced by transplant [facility] noteNo assessment information [place] Work Phone: Evaluation note* Diagnosis Liver replaced by transplant (HCC) Liver replaced by transplant [facility] noteNo InformationNo[employer] Other Evaluation note* Diagnosis Sick sinus syndrome (CMS/HCC)- Primary Sinoatrial node dysfunction Essential hypertension Unspecified essential hypertension Mixed hyperlipidemia Overweight with body mass index (BMI) of 26 to 26.9 in adult Liver transplanted (CMS/HCC) Liver replaced by transplant Pacemaker Cardiac pacemaker in situ documented in this encounter [place] Work Phone: Evaluation note* Diagnosis Liver replaced by transplant (HCC) Liver replaced by transplant [facility]* Diagnosis Need for prophylactic immunotherapy Transplanted liver (HCC) Liver replaced by transplant documented in this encounter [facility] general Narrative - Reported* Type Description Date Medical History HISTORY OF HEP C Medical History LIVER TRANSPLANT Medical History prostatism Medical History liver cancer Surgical History APPENDECTOMY Surgical History HERNIA REPAIR Surgical History LIVER TRANSPLANT Surgical History VEIN STRIPPING 2005 Hospitalization History SEE ABOCE [employer] [facility] Other [place] general Narrative - Reported* Type Description Date Medical History HISTORY OF HEP C Medical History LIVER TRANSPLANT Medical History prostatism Medical History liver cancer Medical History PACE MAKER PLACED Surgical History APPENDECTOMY Surgical History HERNIA REPAIR Surgical History LIVER TRANSPLANT Surgical History VEIN STRIPPING 2005 Surgical History PACE MAKER PLACEMENT Hospitalization History SEE ABOVE [employer] Other History of Present illness Narrative* Patient [...] Follow-up in 1 year [facility] 250 DO Work Phone: [place] note No data available for this section [facility] reason for referral (narrative)* Consultation (Routine) - Authorized Specialty Diagnoses / Procedures Referred By Contac t Referred To Contact Cardiology Diagnoses Sick sinus syndrome (CMS/HCC) Essential hypertension Mixed hyperlipidemia Procedures Follow Up In Cardiology Shea Brannon MD [address] [place] [id number] Shea Brannon MD [address] [place] [id number] Referral ID Status Reason Start Date Expiration Date V isits Requested Visits Authorized [id number] Authorized 04/10/2023 04/09/2024 1 1 [facility] Work Phone: Summary Purpose Family History [...] Unknown Malignant neoplasm Unknown Diabetes mellitus Unknown Relationship Condition Age at Onset Recorded Date/T rabia mother Diabetes mellitus Unknown Heart disease Unknown father Heart disease Unknown father Diabetes mellitus Unknown Unknown Hypertension Unknown mother Unknown Malignant neoplasm Unknown Diabetes mellitus Unknown Advance Directives No Advanced Directives Records [...] section and content) DATE CREATED AUTHOR 12/08/2017 [facility] DATE CREATED AUTHOR AUTHOR'S ORGANIZ ATION 04/16/2020 [facility] DATE CREATED AUTHOR AUTHOR'S ORGANIZ ATION 10/24/2022 [facility] DATE CREATED AUTHOR AUTHOR'S ORGANIZ ATION 11/23/2022 [facility] DATE CREATED AUTHOR AUTHOR'S ORGANIZ ATION 04/13/2023 [facility] DATE CREATED AUTHOR AUTHOR'S ORGANIZ ATION 05/31/2023 [facility] DATE CREATED AUTHOR AUTHOR'S ORGANIZ ATION 12/16/2023 [facility] DATE CREATED AUTHOR AUTHOR'S ORGANIZ ATION 02/10/[address] [facility] Source Comments (unrecognize d section and content) In the event this informatio n is protected by the Federal Confidentiality of Alcohol and Drug Abuse Patient Records regulations: The Federal rules restrict any use of the information to criminally investigate or prosecute any alcohol or drug abuse patient.[facility] the event this information is protected by the Federal Confidentiality of Alcohol and Drug Abuse Patient Records regulations: The Federal rules restrict any use of the information to criminally investigate or prosecute any alcohol or drug abuse patient.[facility] HospitalIn the event this information is protected by the Federal Confidentiality of Alcohol and Drug Abuse Patient Records regulations: The Federal rules restrict any use of the information to criminally investigate or prosecute any alcohol or drug abuse patient.[facility] HospitalIn the event this information is protected by the Federal Confidentiality of Alcohol and Drug Abuse Patient Records regulations: The Federal rules restrict any use of the information to criminally investigate or prosecute any alcohol or drug abuse patient.[facility] HospitalIn the event this information is protected by the Federal Confidentiality of Alcohol and Drug Abuse Patient Records regulations: The Federal rules restrict any use of the information to criminally investigate or prosecute any alcohol or drug abuse patient.[facility] HospitalIn the event this information is protected by the Federal Confidentiality of Alcohol and Drug Abuse Patient Records regulations: The Federal rules restrict any use of the information to criminally investigate or prosecute any alcohol or drug abuse patient.[facility] HospitalIn the event this information is protected by the Federal Confidentiality of Alcohol and Drug Abuse Patient Records regulations: The Federal rules restrict any use of the information to criminally investigate or prosecute any alcohol or drug abuse patient.[facility] HospitalIn the event this information is protected by the Federal Confidentiality of Alcohol and Drug Abuse Patient Records regulations: The Federal rules restrict any use of the information to criminally investigate or prosecute any alcohol or drug abuse patient.[facility] HospitalIn the event this information is protected by the Federal Confidentiality of Alcohol and Drug Abuse Patient Records regulations: The Federal rules restrict any use of the information to criminally investigate or prosecute any alcohol or drug abuse patient.[facility] Reason for Visit (unrecogniz ed section and content) Reason Comments Refill Request Reason Comments Opened In Error Reason Comments Patient Update Orders New standing lab ord er Reason Comments Follow-up 1y Reason Comments Insurance Authorization [employer] Care Teams (unrecognized sec tion and content) Team Status: Active Member Role Status Dates Elvirafer Foxmaggie , DO Primary Care Provider Active Team Status: Inactive Member Role Status Dates Elvirafer Foxmaggie , DO Primary Care Provider Active Sugey Arteaga MD Attending Provider Active Front Office Specialist Relationship Specialty Start Date End Date Bunting, Elvira Ray, DO [address] [place] [address] PCP - General Family Practice 01/06/12 Yulisa Lewis RN [facility] [address] [place] [address] Registered Nurse Transplant Center 07/14/19 Front Office Specialist Relationship Specialty Start Date End Date Bunting, Elvira Ray, DO [address] [place] [address] PCP - General Family Practice 01/06/12 Yulisa Lewis RN [facility] [address] [place] [address] Registered Nurse Transplant Center 07/14/19 Team Status: Inactive Member Role Status Dates Elvirafer Foxmaggie , DO Primary Care Provider Active Shea Brannon MD Attending Provider Active Front Office Specialist Relationship Specialty Start Date End Date Bunting, Elvira Ray, DO [address] [place] [address] PCP - General Family Medicine 01/06/12 Yulisa Lewis RN [facility] [address] [place] [address] Registered Nurse Transplant Center 07/14/19 Team Status: Inactive Member Role Status Dates Elvirafer Schultz , DO Primary Care Provider Active Branden Woodward MD Attending Provider Active Team Status: Inactive Member Role Status Dates Elvirafer Foxting , DO Primary Care Provider Active Sheila Magallanes MD Attending Provider Active Front Office Specialist Relationship Specialty Start Date End Date Bunting, Elvira Ray, DO [address] [place] [address] PCP - General Family Medicine 01/06/12 Yulisa Lewis RN [facility] [address] [place] [id number] Registered Nurse Transplant Center 07/14/19 Front Office Specialist Relationship Specialty Start Date End Date Elvira Schultz [facility] [address] [facility] [place] [address] PCP - General 06/15/99 Front Office Specialist Relationship Specialty Start Date End Date Lloyd Schultzfer Maurer DO [address] [place] [address] PCP - General Family Medicine 01/06/12 Yulisa Lewis RN [address] [address] Registered Nurse Transplant Center 07/14/19 Front Office Specialist Relationship Specialty Start Date End Date Elvira Schultz DO [address] [place] [address] PCP - General Family Medicine 01/06/12 Yulisa Lewis RN [address] [address] Registered Nurse Transplant Center 07/14/19 Front Office Specialist Relationship Specialty Start Date End Date Elvira Schultz [address] [place] [address] PCP - General Family Medicine 01/06/12 Yulisa Lewis RN [address] [address] Registered Nurse Transplant Center 07/14/19 Team Status: Inactive Member Role Status Dates Elvira Schultz DO Primary Care Provider Active Start: November 06, 2023 End: November 06, 2023 Branden Woodward MD Attending Provider Active Start: November 06, 2023 End: November 06, 2023 Front Office Specialist Relationship Specialty Start Date End Date Elvira Schultz DO [address] [place] [address] PCP - General Family Medicine 01/06/12 Yulisa Lewis RN [facility] [address] [place] [address] Registered Nurse Transplant Center 07/14/19 Team Status: Inactive Member Role Status Dates Elvira Schultz DO Primary Care Provider Active Start: February 05, 2024 End: February 05, 2024 Branden Woodward MD Attending Provider Active Start: February 05, 2024 End: February 05, 2024 Goals (unrecognized section and content) Goals may [...] BE BASED ON THE PRIMARY CLINICAL RECORDS. [employer] provides no warranty or guarantee of the accuracy or completeness of information in this document.
[2024-02-16 08:46] LABS: Basophils Absolute Auto 0.1 10^3/uL (0.0-0.1); Basophils Percent Auto 1.2 % (0.2-2.0); Eosinophils Absolute Auto 0.2 10^3/uL (0.0-0.7); Eosinophils Percent Auto 4.9 % (0.9-7.0); Hematocrit 43.5 % (42.0-54.0); Hemoglobin 14.6 g/dL (14.0-18.0); Immature Granulocytes Abs Auto 0.02 10^3/uL (0.00-0.03); Immature Granulocytes Pct Auto 0.4 % (0.0-0.5); Lymphocytes Absolute Auto 0.7 10^3/uL (1.2-3.8); Lymphocytes Percent Auto 14.3 % (20.5-60.0); Mean Corpuscular HGB Conc 33.6 g/dL (29.9-35.2); Mean Corpuscular Hemoglobin 30.8 pg (25.9-34.0); Mean Corpuscular Volume 91.8 fL (80.0-94.0); Mean Platelet Volume 9.6 fL (9.5-13.5); Monocytes Absolute Auto 0.3 10^3/uL (0.3-0.8); Monocytes Percent Auto 5.9 % (1.7-12.0); Neutrophils Absolute Auto 3.6 10^3/uL (1.4-6.5); Neutrophils Percent Auto 73.3 % (43.0-75.0); Platelet Count 154 10^3/uL (150-450); Red Blood Count 4.74 10^6/uL (4.70-6.10); Red Cell Distribution Width 13.9 % (11.0-15.0); White Blood Count 4.9 10^3/uL (4.0-11.0)
[2024-02-16 09:19] LABS: Alanine Aminotransferase 20 U/L (16-63); Albumin Globulin Ratio 1.7; Albumin Level 3.6 g/dL (3.4-5.0); Alkaline Phosphatase 55 U/L (46-116); Anion Gap 12.1; Aspartate Amino Transferase 16 U/L (15-37); BUN Creatinine Ratio 21.8; Bilirubin Total 0.6 mg/dL (0.2-1.0); Carbon Dioxide 28.7 mmol/L (21.0-32.0); Chloride 108 mmol/L (98-107); Estimated GFR (African America >60 (>=60); Estimated GFR (Non-African Ame 53 (>=60); Globulin 2.1 g/dL; Glucose 94 mg/dL (74-106); Potassium 4.8 mmol/L (3.5-5.1); Sodium 144 mmol/L (136-145); Total Protein 5.7 g/dL (6.4-8.2)
== END 2024-02-16 08:16 | disposition home or self-care (01) ==
LOC: LAB 08:17
PROVIDERS: PCP Family Medicine
DX: K76.9 Liver disease, unspecified (principal); Z48.23 Encounter for aftercare following liver transplant; Z94.4 Liver transplant status; Z41.8 Encounter for other procedures for purposes other than remedying health state; E83.30 Disorder of phosphorus metabolism, unspecified; R73.02 Impaired glucose tolerance (oral)
CPT/HCPCS: 36415; 80053; 85025

== ENCOUNTER 2024-04-18 07:58 | Outpatient (OUT) | payer MEDICARE, SELFPAY ==
[2024-04-18 08:41] LABS: Basophils Absolute Auto 0.1 10^3/uL (0.0-0.1); Basophils Percent Auto 1.1 % (0.2-2.0); Eosinophils Absolute Auto 0.2 10^3/uL (0.0-0.7); Eosinophils Percent Auto 4.4 % (0.9-7.0); Hematocrit 42.8 % (42.0-54.0); Hemoglobin 14.1 g/dL (14.0-18.0); Immature Granulocytes Abs Auto 0.01 10^3/uL (0.00-0.03); Immature Granulocytes Pct Auto 0.2 % (0.0-0.5); Lymphocytes Absolute Auto 0.8 10^3/uL (1.2-3.8); Mean Corpuscular HGB Conc 32.9 g/dL (29.9-35.2); Mean Corpuscular Hemoglobin 30.3 pg (25.9-34.0); Mean Corpuscular Volume 91.8 fL (80.0-94.0); Mean Platelet Volume 9.6 fL (9.5-13.5); Monocytes Absolute Auto 0.3 10^3/uL (0.3-0.8); Monocytes Percent Auto 6.8 % (1.7-12.0); Neutrophils Absolute Auto 3.2 10^3/uL (1.4-6.5); Neutrophils Percent Auto 70.5 % (43.0-75.0); Platelet Count 161 10^3/uL (150-450); Red Blood Count 4.66 10^6/uL (4.70-6.10); Red Cell Distribution Width 13.7 % (11.0-15.0); White Blood Count 4.5 10^3/uL (4.0-11.0)
[2024-04-18 09:36] LABS: BOX Test Reference Lab CLEVELAND CLINIC
[2024-04-18 09:38] LABS: BOX Test Sent Out TACROLIMIS/FK506
[2024-04-18 10:02] LABS: Alanine Aminotransferase 13 U/L (16-63); Albumin Globulin Ratio 1.6; Albumin Level 3.5 g/dL (3.4-5.0); Alkaline Phosphatase 52 U/L (46-116); Anion Gap 13.7; Aspartate Amino Transferase 16 U/L (15-37); BUN Creatinine Ratio 22.7; Bilirubin Total 0.5 mg/dL (0.2-1.0); Calcium 9.1 mg/dL (8.5-10.1); Carbon Dioxide 27.8 mmol/L (21.0-32.0); Chloride 110 mmol/L (98-107); Estimated GFR (African America >60 (>=60 mL/min/1.73m^2); Estimated GFR (Non-African Ame 55 (>=60 mL/min/1.73m^2); Globulin 2.2 g/dL; Glucose 99 mg/dL (74-106); Phosphorus 3.2 mg/dL (2.6-4.7); Potassium 4.5 mmol/L (3.5-5.1); Sodium 147 mmol/L (136-145); Total Protein 5.7 g/dL (6.4-8.2)
== END 2024-04-18 07:59 | disposition home or self-care (01) ==
LOC: LAB 08:00
PROVIDERS: PCP Family Medicine
DX: K76.9 Liver disease, unspecified (principal); Z48.23 Encounter for aftercare following liver transplant; Z94.4 Liver transplant status; Z41.8 Encounter for other procedures for purposes other than remedying health state; E83.30 Disorder of phosphorus metabolism, unspecified; R73.02 Impaired glucose tolerance (oral)
CPT/HCPCS: 36415; 80053; 84100; 85025

== ENCOUNTER 2024-04-22 17:23 | Emergency (ER) | payer MEDICARE, SELFPAY ==
[2024-04-22] VITALS (22 sets, daily range): BP systolic 115–185; BP diastolic 81–101; PULSE 63–84; TEMP 36.6; O2SAT 98–99; BMI 20.9
--- OUTSIDE RECORDS SUMMARY | 2024-04-22 17:30 | XMS_ITS | CCD ---
Author Organization [facility] Inform ion Partnership [facility] Care Team Providers Care Gateman Name Role Phone SHEA BRANNON Unavailable Unavailable BUNTING, ELVIRA R Unavailable Unavailable Unavailable Unavailable Bunting Elvira VASQUEZ Primary Care Provider Yulisa Lewis RN Unavailable Unavailable BUNTING, ELVIRA R Primary Care Physician Bunting, Elvira R Unavailable Bunting, DO Felix Primary Care Provider [phone] MD Shea Brannon Attending Provider Bunting Elvira [...] Attending Provider MD Sheila Magallanes Attending Provider [phone] Sheila Magallanes Unavailable Bunting, Dr. Elvira Maurer [...] Care Provider MD Sugey Arteaga Attending Provider [phone] Bunting DO, Elvira Ray Primary Care Provider Bunting, DO Elvira Primary Care Provider MD Branden Woodward Attending Provider Bunting DO, Elvira Ray Primary Care Provider Bunting, DO Elvira Primary Care Provider MD Branden Woodward Attending Provider Bunting, DO Elvira Primary Care Provider MD Branden Woodward Attending Provider Sugey Arteaga MShaylee Admitting Unavailable Lue Sugey MShaylee Attending Unavailable LueDeannehy MShaylee Attending Unavailable LueDeannehy MShaylee Attending Unavailable LueDeannehy MShaylee Attending Unavailable Lue Sugey MShaylee Attending Unavailable Lue Sugey MShaylee Attending Unavailable LueDeannehy MShaylee Attending Unavailable Lue Sugey MShaylee Admitting Unavailable Unavailable Primary Care Provider UnavailJASWINDER Robert Attending Unavailable Branden Wodoward Attending Unavail able Branden Woodward Admitting Unavail able Bunting, Elvira Primary Care Unavailable Branden Woodward Attending Unavail able Branden Woodward Admitting Unavail able Bunting, Elvira Primary Care Unavailable Branden Woodward Admitting Unavail able Bunting, Elvira Primary Care Unavailable Branden Woodward Attending Unavail able Branden Woodward Attending Unavail able Bunting, Elvira Primary Care Unavailable Branden Woodward Admitting Unavail able SHEA BRANNON Attending Unavailable SHEA BRANNON Referring Unavailable BUNTING, ELVIRA RAY Primary Care Unavailable Allergies Allergy Classification Reported Allergen(s) Allergy Type Date of Onset Reaction(s) Facility (1 source) No Known Medication Allergies; Translations: [No Known Medication Allergies] Propensity to adverse reactions (disorder) [facility] Repository Medications Current Medications Medication Drug Class(es) Dates Sig (Normalized) Sig (Original) amLODIPine 5 mg oral tablet (20 sources) Dihydropyridine Calcium Channel Sebas Start: 02-18-2017 End: 04-15-2024 take 1 tablet by mouth once daily amLODIPine (NORVASC) 5 mg tablet Take 1 tablet by mouth once daily. 0 02/18/2017 Active Comment on above: Take 1 tablet by elsy th once daily. amylase [id number] unt / lipase 28331 unt / protease 49475 unt delayed release oral capsule (9 sources) Start: 01-02-2023 Zenpep 52385-15867 units capsule delayed-release particles capsule TAKE 1 CAPSULE WITH EACH MEAL AND UP TO 2 SNACKS 5 TIMES DAILY 01/02/2023 Active Start: 11-12-2022 Creon 60044-92 000 units capsule TAKE 1 CAPSULE BY MOUTH 5 TIMES DAILY DIRECTED WITH 3 MEALS AND 2 SNACKS FOR 30 DAYS 11/13/2022 Active ascorbic acid 1000 mg oral tablet (9 sources) Vitamin C Start: 12-11-2022 take 1 g by mouth once daily Ascorbic Acid (Vitamin C) (Vitamin C) 1,000 mg Tablet Active 1 GM PO Daily December 11, 2022 12:00am aspirin 81 mg delayed release oral tablet (20 sources) Platelet Aggregation Inhibitor, Nonsteroidal Anti-inflammatory Drug Start: 01-07-2022 take 81 mg by mouth once daily Aspirin Active 81 MG PO Daily December 11, 2022 12:00am Start: 05-24-2020 aspirin 81 mg oral tablet Refills(s) 0 Start Date: 05/24/20 Status: Ordered ASPIRIN 81 PO As pir-81 Active take 1 tablet by elsy th once [...] Elderberry Active cholecalciferol 0.025 mg chewable tablet (9 sources) Vitamin D Start: 12-11-2022 take 1 tablet by mouth once daily Cholecalciferol (Vitamin D3) (Vitamin D3) 25 mcg (1,000 unit) Tablet,Chewable Active 25 MCG PO Daily December 11, 2022 12:00am take 1 capsule by mouth once norman ly cholecalciferol (Vitamin D-3) 125 MCG (5000 UT) capsule Take 1 capsule (125 mcg) by mouth once daily. Active take 1 capsule by mouth once norman ly cholecalciferol (Vitamin D-3) 125 MCG (5000 UT) capsule Take 1 capsule (5,000 Units) by mouth once daily. 0 Active elderberry fruit and flower 460-115 mg capsule (2 sources) take 1 capsule by mo uth once daily elderberry fruit and flower 460-115 mg capsule Take 2,000 mg by mouth once daily. Active take 1 capsule by mouth once norman ly elderberry fruit and flower 460-115 mg capsule Take 2,000 mg by mouth once daily. 0 Active Elderberry preparation (4 sources) Start: 05-27-2023 take 1 mg by mouth once daily elderberry mg, Oral, Daily, Refill(s) 0 Start Date: 05/27/23 Status: Ordered finasteride 5 mg oral tablet (9 sources) 5-alpha Reductase Inhibitor Start: 02-25-2023 take 1 tablet by mouth once daily finasteride 5 mg Tab 5 mg = 1 tab(s), Oral, Daily, # 30 tab(s), Refills(s) 11, Pharmacy: [facility]/pharmacy #[id number], 178, cm, 05/27/23 9:52:00 EST, Height/Length Dosing, 80, kg, 05/27/23 9:52:00 EST, Weight Dosing Start Date: 05/27/23 Status: Ordered metoprolol tartrate 25 mg oral tablet (20 sources) beta-Adrenergic Sebas Start: 03-24-2017 End: 04-13-2018 take 25 mg by mouth once daily Metoprolol Tartrate Discontinued 25 MG PO Daily March 24, 2017 12:00am April 13, 2018 4:18pm Start: 02-07-2015 End: 05-10-2019 take 1 tablet by mouth twice daily metoprolol tartrate (Lopressor) 25 mg tablet Indications: Essential hypertension TAKE 1 TABLET BY MOUTH TWICE A DAY 180 tablet 3 07/20/2023 Active take 1 tablet by elsy th twice daily Metoprolol Succinate ER 25 MG 1 tablet Orally TWICE A D AY Active Comment on above: Take 1 tablet by elsy th twice daily. Mis Prescription (8 sources) Start: 9 [facility] Prescription Septra 1 tablet by mouth MWF Start Date: 04/19/19 Status: Ordered omeprazole 40 mg delayed release oral capsule (8 sources) Proton Pump Inhibitor Start: 3 take 1 capsule by mouth in the morning omeprazole (PriLOSEC) [address] capsule Take 40 mg by mouth in the morning. 03/08/2023 Active Oxybutinin XL 5mg (4 sources) Oxybutinin XL 5m g Active 24 hr oxybutynin chloride 5 mg extended release oral tablet (20 sources) Cholinergic Muscarinic Antagonist Start: 4 take 1 tablet by mouth once daily in the evening oxybutynin 5 mg ER Tab 5 mg = 1 tab(s), Oral, qPM, # 30 tab(s), Refills(s) 11, Pharmacy: [facility]/pharmacy #[id number], 178, cm, 02/17/24 9:47:00 EDT, Height/Length Dosing, 70, kg, 02/17/24 9:47:00 EDT, Weight Dosing Start Date: 02/17/24 Status: Ordered Start: 12-11-2022 oxybutynin (Di tropan) 5 MG tablet Take 5 mg by mouth. 02/25/2023 Active Start: 02-26-2022 take 1 tablet by elsy at bedtime oxybutynin 5 mg Tab 5 mg = 1 tab(s), Oral, Bedtime, # 30 tab(s), Refills(s) 11, Pharmacy: [facility]/pharmacy #[id number], 185, cm, 02/26/22 15:00:00 EDT, Height/Length Dosing, 99, kg, 02/26/22 15:00:00 EDT, Weight Dosing Start Date: 02/26/22 Status: Ordered take 1 tablet by elsy th at bedtime Oxybutynin Chloride ER 5 MG Oral Tablet Extended Release 24 Hour TAKE 1 TABLET Bedtime Quantity: 0 Refills: 0 Ordered: 27-Mar-2022 DO Active phenazopyridine hydrochloride 200 mg delayed release oral tablet (3 sources) Start: 09-26-2022 take 1 tablet by mouth three times daily as needed phenazopyridine (Pyridium) 200 MG tablet TAKE 1 TABLET BY MOUTH 3 TIMES A DAY NEEDED FOR PAIN*TAKE AFTER MEAL* 09/26/2022 Active polyethylene glycol 3350 289611 mg / potassium chloride 2970 mg / sodium bicarbonate 6740 mg / sodium chloride 5860 mg / sodium sulfate 56660 mg powder for oral solution (7 sources) Osmotic Laxative Start: 11-05-2022 GaviLyte-G 236 g solution TAKE DIRECTED FOR 1 DAY 11/05/2022 Active Start: 11-05-2022 take 236 g by mouth once Golyt hung 236 GM as directed Orally once for 1 days October, Not-Taking Sulfamethoxazole (1 source) Sulfonamide Antimicrobial Start: 08-13-2023 sulfamethoxazole Refills(s) 0 Start Date: 08/13/23 Status: Ordered sulfamethoxazole 800 mg / trimethoprim 160 mg oral tablet (20 sources) Dihydrofolate Reductase Inhibitor Antibacterial, Sulfonamide Antimicrobial Start: 02-17-2024 sulfamethoxazole-tri met hoprim 800 mg-160 mg Tab TAKE 1 TABLET BY MOUTH ON THURSDAY,THURSDAY,AND THURSDAY Start Date: 02/17/24 Status: Ordered Start: 09-10-2020 End: 08-17-2023 take 1 tablet by mouth once daily sulfamethoxazole-trimethoprim (BACTRIM D S) 800-160 mg per tablet Indications: Liver replaced [...] 3 11/05/2022 10/25/2023 Discontinued Start: 03-24-2017 End: 11-08-2021 take 1 mg by mouth twice daily tacrolimus 1 mg, Oral, BID, Refills(s) 0 Start Date: 04/18/19 Status: Ordered Start: 03-24-2017 End: 04-13-2018 Tacrolimus Discontinued 2017 12:00am April 13, 2018 8:46pm Comment on above: Take 2 capsules by m outh twice daily. (Z94.4 - liver transplant) TAKE 2 CAPSUES BY MO UTH TWICE DAILY tadalafil 5 mg oral tablet (2 sources) Phosphodiesterase 5 Inhibitor Start: 023 take 1 tablet by mouth once daily tadalafil 5 mg oral tablet 5 mg = 1 tab(s), Oral, Daily, # 30 tab(s), Refills(s) 11, Pharmacy: [facility]/pharmacy #[id number], 185, cm, 09/10/22 9:37:00 EDT, Height/Length Dosing, 99, kg, 09/10/22 9:37:00 EDT, Weight Dosing Start Date: 09/10/22 Status: Ordered tamsulosin hydrochloride 0.4 mg oral capsule (5 sources) alpha-Adrenergic Sebas End: 024 take 1 capsule by mouth twice daily tamsulosin (Flomax) 0.4 mg 24 hr capsule Take 1 capsule (0.4 mg) by mouth 2 times a day. 04/15/2024 Discontinued (Therapy completed) tamsulosin (Flom ax) 0.4 MG 24 hr capsule 1 capsule 1 (one) time each day at the same time. Active terazosin 5 mg oral capsule (19 sources) alpha-Adrenergic Sebas Start: 06-21-2021 teraz osin (Hytrin) 5 MG capsule Refills(s) 0 02/25/2023 Active Terazosin HCl Ac tive Vitamin D3 (4 sources) Start: 05-27-2023 Vitamin D3 Ref ills(s) 0 Start Date: 05/27/23 Status: Ordered Vitamin D3 25 MCG (1000 UT) (1 source) take 1 capsule by mouth once daily Vitamin D3 25 MCG (1000 UT) 1 capsule Orally Once a day Active Zenpep 78710 UNIT (1 source) Start: 01-01-2023 Zenpep 28360 U NIT 1 WITH EACH MEAL & 1 WITH UP TO 2 SNACKS Orally 5 TIMES A DAY for 30 days Dec, Active Zinc (8 sources) Start: 05-27-2023 take 1 mg by [...] 12:00am zinc gluconate 50 mg oral tablet (6 sources) take 1 tablet by elsy th once daily zinc gluconate 50 mg tablet Take 1 tablet (50 mg) by mouth once daily. Active Completed/Discontinued Medications Medication Drug Class(es) Dates [...] 0 Ordered: 27-Mar-2022 DO Active Sulfamethoxazole-TMP DS TABS (3 sources) Sulfamethoxazole -TM P DS TABS TAKE 1 TABLET DAILY ON THURSDAY, THURSDAY, AND THURSDAY. Quantity: 0 Refills: 0 Ordered: 27-Mar-2022 DO Active Trimethoprim-Sulfame thoxazole (7 sources) Start: 03-24-2017 End: 04-13-2018 take [...] Documented Da te Episodic/Chronic Biliary tract disease (10 sources) Leakage of bile; Translations: [Disease of biliary tract, unspecified] Onset: 02-07-2015 06-10-2021 Chronic Cancer of prostate (12 sources) Carcinoma in situ of prostate; Translations: [Carcinoma in situ of prostate] Onset: 12-24-2021 Chronic Cardiac arrest and ventricular fibrillation (7 sources) EKG: asystole; Translations: [Cardiac arrest, cause unspecified] 04-14-2018 Chronic Cardiac dysrhythmias (18 sources) Sick sinus syndrome; Translations: [Sinoatrial node dysfunction] Onset: 04-09-2023 04-14-2018 Chronic Conduction disorders (13 sources) Cardiac pacemaker in situ; Translations: [Cardiac pacemaker in situ] Onset: 01-27-2022 04-10-2023 Chronic Coronary atherosclerosis and other heart disease (1 source) Coronary atherosclerosis and other heart disease Onset: 03-26-2017 Diabetes mellitus without complication (1 source) Impaired glucose tolerance (oral); Translations: [IMPAIRED GLUCOSE TOLERANCE ORAL] Onset: 10-23-2022 Episodic Disorders of lipid metabolism (20 sources) Hyperlipidemia; Translations: [Other and unspecified hyperlipidemia] Onset: 01-27-2022 12-21-2018 Chronic Essential hypertension (20 sources) Essential (primary) hypertension; Translations: [Essential hypertension] Onset: 03-26-2017 04-14-2018 Chronic Essential hypertension (2 sources) Essential hypertension Onset: 03-26-2017 Genitourinary symptoms and ill-defined conditions (20 sources) Microscopic hematuria; Translations: [Nocturia] Onset: 01-27-2022 12-21-2018 Episodic Hyperplasia of prostate (20 sources) Benign prostatic hypertrophy with outflow obstruction; [...] LIVER TRANSPLANT] Onset: 10-23-2022 Chronic Other aftercare (10 sources) Long-term current use of anticoagulant 11-24-2019 Episodic Other aftercare (1 source) senior living (current) use of aspirin; Translations: [NURSING HOME CURRENT USE OF ASPIRIN] Onset: 09-29-2022 Episodic Other aftercare (1 source) Other supervisor intermediates (current) drug therapy; Translations: [OTH INFRASTRUCTURE TECH CURRENT DRUG THERAPY] Onset: 09-29-2022 Episodic Other and unspecified benign neoplasm (2 sources) Melanocytic nevus of trunk; Translations: [Melanocytic nevi of trunk] 04-11-2024 Episodic Other diseases of bladder and urethra (4 sources) Other specified disorders of bladder; Translations: [OTHER SPECIFIED DISORDERS BLADDER] Onset: 09-26-2022 Chronic Other diseases of kidney and ureters (2 sources) Urinary tract obstruction; Translations: [Other obstructive and reflux uropathy] Onset: 12-24-2021 Episodic Other diseases of veins and lymphatics (7 sources) Peripheral venous insufficiency; Translations: [Venous insufficiency (chronic) (peripheral)] 04-14-2018 Episodic Other endocrine disorders (10 sources) Male hypogonadism 12-21-2018 Chronic Other gastrointestinal [...] [LIVER TRANSPLANT STATUS] Onset: 10-23-2022 Chronic Other lower respiratory disease (4 sources) Dyspnea; Translations: [Shortness of breath] Onset: 04-15-2024 04-15-2024 Episodic Other lower respiratory disease (1 source) Shortness of breath; Translations: [Shortness of breath] Onset: 04-15-2024 Episodic Other male genital disorders (14 sources) Male erectile dysfunction, unspecified; Translations: [Erectile dysfunction] Onset: 09-10-2022 Chronic Other male genital disorders (10 sources) Prostatic pain 11-24-2019 Episodic Other nutritional; endocrine; and metabolic disorders (8 sources) Body mass index 30+ - obesity; Translations: [Body Mass Index 31.0-31.9, adult] Chronic Other nutritional; endocrine; and metabolic disorders (1 source) Disorder of phosphorus metabolism, unspecified; Translations: [DISORDER PHOSPHORUS METABOLISM UNS] Onset: 10-23-2022 Chronic Other nutritional; endocrine; and metabolic disorders (2 sources) Overweight; Translations: [Overweight] Episodic Other nutritional; endocrine; and metabolic disorders (4 sources) Weight loss; Translations: [Abnormal weight loss] Episodic Other screening for suspected conditions (not mental disorders or infectious disease) (20 sources) Raised prostate specific antigen; Translations: [Elevated prostate specific antigen [PSA]] Onset: 12-24-2021 Episodic Other skin disorders (2 sources) Seborrheic keratosis; Translations: [Other seborrheic keratosis] 04-11-2024 Episodic Other skin disorders (2 sources) Actinic keratosis; Translations: [Actinic keratosis] 04-11-2024 Episodic Residual codes; unclassified (1 source) Encounter for other procedures for purposes other than remedying health state; Translations: [ENC OTH PROC NOT REMEDY HLTH STATE] Onset: 10-23-2022 Episodic Residual codes; unclassified (2 sources) Body mass index 20-24 - normal; Translations: [Body mass index (BMI) 20.0-20.9, adult] Onset: 04-15-2024 04-15-2024 Episodic Residual codes; unclassified (2 sources) Body mass index (BMI) 20.0-20.9, adult; Translations: [Body mass index (BMI) 20.0-20.9, adult] Onset: 04-15-2024 Episodic Screening and history of mental health and substance abuse codes (18 sources) Ex-smoker; Translations: [Personal history of tobacco [...] transplant status / Z94.4(ICD-9) Onset: 03-26-2017 Unclassified (10 sources) SUMMARY Onset: 08-14-2012 Unclassified (8 sources) Finding of sensation of bladder 09-10-2022 Unclassified (1 source) CONTACT W/AND (SUSP) EXPOS COVID-19; Translations: [CONTACT W/AND (SUSP) EXPOS COVID-19] Onset: 01-22-2022 Unclassified (1 source) Encounter for checking and testing of cardiac pacemaker pulse generator [battery]; Translations: [Encounter for checking and testing of cardiac pacemaker pulse generator [battery]] Onset: 08-07-2023 Urinary tract infections (1 source) Urinary tract infection, site not specified; Translations: [UTI SITE NOT SPECIFIED] Onset: 09-29-2022 Episodic Past or Other Problems Problem Classification Problem Date Documented Da te Episodic/Chronic Abdominal hernia (10 sources) Inguinal hernia; Translations: [Unilateral inguinal hernia, without obstruction or gangrene, not specified as recurrent] Onset: 02-02-2008 02-02-2008 Episodic Acute and unspecified renal failure (3 sources) Acute renal failure syndrome; Translations: [Acute kidney failure, unspecified] Onset: 02-07-2015 Resolved: 02-18-2017 02-18-2017 Episodic Bacterial infection; unspecified site (6 sources) Bacteremia; Translations: [Bacteremia] Onset: 01-06-2007 Resolved: 02-18-2017 02-18-2017 Episodic Cancer of liver and intrahepatic bile duct (3 sources) Liver cell carcinoma; Translations: [Liver cell carcinoma] Onset: 12-21-2014 Resolved: 02-18-2017 02-18-2017 Chronic Cancer of liver and intrahepatic bile duct (10 sources) History of hepatocellular carcinoma; Translations: [Personal history of malignant neoplasm of liver] Onset: 02-18-2017 02-18-2017 Episodic Complication of device; implant or graft (10 sources) Biliary stricture; Translations: [Other complications of liver transplant] Onset: 02-07-2015 02-07-2015 Episodic Diseases of white blood cells (3 sources) Leukocytosis; Translations: [Elevated white blood cell count, unspecified] Onset: 08-18-2012 Resolved: 02-18-2017 06-10-2021 Chronic Fluid and electrolyte disorders (3 sources) Hyponatremia; Translations: [Hypo-osmolality and hyponatremia] Onset: 08-18-2012 Resolved: 02-18-2017 06-10-2021 Episodic Hepatitis (17 sources) Viral hepatitis C; Translations: [Unspecified viral hepatitis C without hepatic coma] Onset: 05-03-2013 Resolved: 02-18-2017 12-21-2018 Episodic Neoplasms of unspecified nature or uncertain behavior (10 sources) Neoplasm of pancreas; Translations: [Neoplasm of unspecified behavior of digestive system] Onset: 11-10-2012 11-10-2012 Episodic Other aftercare (1 source) terminal superintendent (current) use of anticoagulants; Translations: [NURSING HOME CURRNT USE ANTICOAGULANTS] Onset: 01-27-2022 Episodic Other and unspecified benign neoplasm (14 sources) History of polyp of colon; Translations: [Personal history of colonic polyps] Onset: 02-18-2017 02-18-2017 Episodic Other gastrointestinal disorders (3 sources) Ascites; Translations: [Other ascites] Onset: 11-10-2012 Resolved: 02-18-2017 02-18-2017 Episodic Other infections; including parasitic (10 sources) History of hepatitis C; Translations: [Personal history of other infectious and parasitic diseases] Onset: 02-18-2017 02-18-2017 Episodic Other liver diseases (3 sources) Cirrhosis of liver; Translations: [Unspecified cirrhosis of liver] Onset: 10-18-2007 Resolved: 02-18-2017 06-10-2021 Chronic Other liver diseases (3 sources) Portal hypertension; Translations: [Portal hypertension] Onset: 11-10-2012 Resolved: 02-18-2017 02-18-2017 Chronic Other liver diseases (3 sources) Hepatic encephalopathy; Translations: [Hepatic encephalopathy] Onset: 08-14-2012 Resolved: 02-18-2017 06-10-2021 Episodic Other nutritional; endocrine; and metabolic disorders (8 sources) Overweight in adulthood with body mass index of 25 or more but less than 30; Translations: [Body Mass Index 29.0-29.9, adult] Onset: 04-09-2023 Resolved: 04-15-2024 04-10-2023 Episodic Residual codes; unclassified (12 sources) Prevention status; Translations: [Encounter for other specified prophylactic measures] Onset: 02-07-2015 02-07-2015 Episodic Respiratory failure; insufficiency; arrest (adult) (3 sources) Ventilator finding; Translations: [Dependence on respirator [ventilator] status] Onset: 08-14-2012 Resolved: 02-18-2017 06-10-2021 Chronic Unclassified (2 sources) Onset: 04-10-2023 Resolved: 04-15-2024 04-10-2023 Unclassified (3 sources) Drug therapy finding; Translations: [DVT prophylaxis] Onset: 08-14-2012 Resolved: 02-18-2017 06-10-2021 Results Test Name Value Interpretation Reference Range Facility [facility] 04-18-2024 CNPN Telephone (TXCTMN) SUSAN SHERMAN ([id number]) 1950 M Date Time Provider Department 04/18/24 LIVER TXP COORDINATOR TXCTMN During your visit today, we recorded the following information about you: Sonali So 04/18/2024 8:08 AM Raz Obrien is calling in from [facility] lab and need standing lab order fax over. The fax number is [phone] Sonali So Allergies As of Date: 04/18/2024 (No Known Allergies) Date Reviewed: 04/16/2020 Reviewed by: Latisha Hernandez (Rn), RN - Fully Assessed Prescriptions as of 04/18/2024 - tacrolimus IR (PROGRAF) 1 mg capsule take 2 capsules by mouth twice daily - sulfamethoxazole-trime thoprim (BACTRIM DS) 800-160 mg per tablet TAKE 1 TABLET BY MOUTH DAILY ON THURSDAY, THURSDAY, AND THURSDAY - amLODIPine (NORVASC) 5 mg tablet Take 1 tablet by mouth once daily. - metoprolol tartrate, short acting, (LOPRESSOR) 25 mg tablet Take 1 tablet by mouth twice daily. Meds Comments as of 02/11/2012: As per patient medications are current. Leny Leslie CHAMBERS 02/11/2012 Problem List As Of Date 04/18/2024 Noted Resolved Bacteremia [R78.81] 01/06/2007 02/18/2017 Other streptococcus infection in conditions cla*01/06/2007 02/18/2017 Cirrhosis of liver without mention of alcohol [*10/18/2007 02/18/2017 UNILAT INGUINAL HERNIA [K40.90] 02/02/2008 SUMMARY [V999.95] 08/14/2012 Hepatic encephalopathy (HCC) [K76.82] 08/14/2012 02/18/2017 DVT prophylaxis [[id number]] 08/14/2012 02/18/2017 Mechanically assisted ventilation [Z99.11] 08/14/2012 [...] carcinoma [Z85.05] 02/18/2017 History of colonic polyps [Z86.0100] 02/18/2017 Encounter Status:Closed by SONALI SO on 04/18/24 Normal [facility] Tacrolimus Bld-mCncon 2023 Tacrolimus (Bld) [Mass/Vol] 5.8 ng/mL Normal 5.0-20.0 [facility] Comment on above: Order Comment: Speci men [...] situation. Test performed by chemiluminescent immunoassay using Skiipi Alinity i. Performed By: #### 1 [id number] #### [facility] CLIA [id number] [address] [place] [address] OF [facility] No Panel Informationon 04-11 [facility]2024 [facility] Letter Text Normal [facility] Ambulatory Visit Summaryon 0 02-17-2024 Ambulatory Visit Summary Ambulatory Visi t Summary WHIT SUSAN Cox :1950 Visit Date:02/17/2024 Ambulatory Visit Instructions Your Diagnosis BPH with urinary obstruction Elevated PSA Feeling of incomplete bladder emptying ED (erectile dysfunction) Your Care Team Attending Physician - Sugey Arteaga MD Primary Care Physician - ELVIRA SCHULTZ DO This Is Your Medications List oxybutynin (oxybutynin 5 mg ER Tab) Contact prescribing physician if questions or concerns aspirin (aspirin 81 mg oral tablet) cholecalciferol (Vitamin D3) elderberry finasteride (finasteride 5 mg Tab) metoprolol (Metoprolol tartrate 25 mg Tab) sulfamethoxazole-trime thoprim (sulfamethoxazole-trim ethoprim 800 mg-160 mg Tab) tacrolimus terazosin (terazosin 5 mg Cap) zinc sulfate (Zinc) Procedures Performed Cystoscopy (09/22/2022), Transrectal biopsy of prostate using ultrasound (US) guidance (01/22/2022), Transrectal biopsy of prostate using ultrasound (US) guidance (11/09/2019), Transrectal biopsy of prostate using ultrasound (US) guidance (05/19/2018), Appendectomy, Cardiac pacemaker, Colonoscopy, Tonsillectomy, Tx - Liver transplantation. Discharge Vitals Heart Rate (Peripheral) 66 Respiratory Rate 16 Blood Pressure 130/80 Height 178 cm Height 70 in Weight 70 kg Weight 154 lb BMI 22.09 What to do next Scheduled Follow-Up Appointments Thursday 8:00 AM EST With: Chandler CHAVEZ, Sugey Cummins Where: [facility] [address] [place] [address]- You Need to Schedule the Following Appointments Follow Up with Chandler CHAVEZ, Sugey Cummins, URL, URO When: Comments: 6 mos (no labs) Where: [address] [place] [phone] Medications What How Much When Instructions Changed oxybutynin (oxybutynin 5 mg ER Tab) 1 Tablets By Mouth Once a day (in the evening) Pickup at [facility]/pharmacy #[id number] Unchanged aspirin (aspirin 81 mg oral tablet) Contact prescribing physician if questions or concerns Unchanged cholecalciferol (Vitamin D3) Contact prescribing physician if questions or concerns Unchanged elderberry By Mouth Every day Contact prescribing physician if questions or concerns Unchanged finasteride (finasteride 5 mg Tab) 1 Tablets By Mouth Every day Contact prescribing physician if questions or concerns Unchanged metoprolol (Metoprolol tartrate 25 mg Tab) 1 Tablets By Mouth 2 times a day Contact prescribing physician if questions or concerns Unchanged sulfamethoxazole-trime thoprim (sulfamethoxazole-trim ethoprim 800 mg-160 mg Tab) TAKE 1 TABLET BY MOUTH ON THURSDAY,THURSDAY,AND THURSDAY Contact prescribing physician if questions or concerns Unchanged tacrolimus 1 Milligram By Mouth 2 times a day Contact prescribing physician if questions or concerns Unchanged terazosin (terazosin 5 mg Cap) Contact prescribing physician if questions or concerns Unchanged zinc sulfate (Zinc) By Mouth Every day Contact prescribing physician if questions or concerns Pharmacy Information [facility]/pharmacy #[id number]: [address], [place] [phone] Allergies No Known Medication Allergies Problems Ongoing [...] is more likely to develop in men o (more content not included)... Normal [facility] CHEMISTRYOrdered By: SYSTEM SYSTEM on 02-17-2024 Free PSA [Mass/Vol] 4.3 ng/mL Invalid Interpretation Code Remisol Chem Comment on above: Interpretive Data: T he concentration of free PSA and total PSA determined with assays from different manufacturers can vary due to differences in assay methods and specificity. Values obtained with different light air defense artillery crewmember's assays cannot be used interchangeably. The methodology used to obtain this result was chemiluminescence using [employer]'s Access Hybritech PSA reagent and Access Hybritech free PSA reagent. Free PSA/Total PSA [Mass fraction] 19.5 % Low >=25.0% Remisol Chem Prostate specific Ag [Mass/Vol] 22.0 ng/mL High 0.1 - 3.5 ng/mL [employer]OtherDrive[facility] Chem Comment on above: Interpretive Data: T he concentration of PSA determined by different manufacturers can vary due to differences in assay methods and reagent specificity. Values obtained from different assay methods cannot be used interchangeably. The methodology used for this result was chemiluminescence using [employer]'s Access Hybritech PSA reagent. Urology Office/Clinic Noteon 02-17-2024 Urology Office/Clinic Note Urology Office/Clinic Note Chief Complaint f/u w/PSA HPI Staff f/u w/PSA DX: BPH, Elevated PSA, Incomplete bladder emptying & ED *Terazosin & Oxybutynin therapy. Finasteride added to QHS at time of last encounter. (Script sent as take in the AM, so pt has been taking in the AM) Pt did not get his PSA drawn for today's appt. Occasional urgency. States addition of Finasteride did help some, but he does not remember with what. History of Present Illness Tests reviewed: reviewed UA I have reviewed the previous health record information and history for this patient from Dr. Arteaga. I have reviewed and verified the staff [...] HPI. Physical Exam Vitals & Measurements HR: 66(Peripheral) RR: 16 BP: 130/80 HT: 70 in HT: 178 cm WT: 70 kg WT: 154 lb BMI: 22.09 General Appearance: alert, no distress, well nourished, well developed male. Assessment/Plan 73 [address] healthy male prior Dr. Alves pt with chronically elevated PSA and neg biopsies x 4 here for follow up to review PSA. 1. BPH with urinary obstruction (N40.1: Benign prostatic hyperplasia with lower urinary tract symptoms) Cysto 09/22/2022 showed moderate to severe trilobar hypertrophy with global intravesical protrusion including median lobe without sulcus ~ 2 cm. Moderate bilobar, severe near bladder neck. R>L MRI Prostate volume 11/11/22 - 149 ml Previously failed Flomax due to lightheadedness. [1] IPSS 16 (16). UA today negative for blood and infection. Pt previously need med clarification. Was advised to continue Terazosin and Oxybutynin. Also was advised to start Finasteride 5mg qhs at prior OV. States he has been taking meds but shares he has been taking Finasteride qAM as that's how rx was written. Admits he has dry mouth with Oxybutynin. Offered to switch meds to decrease SEs. Pt wishes to try this. Again declines operative intervention, would like to cont meds -Cont Finasteride and Terazosin -Switch from Oxybutynin IR 5mg to ER 5mg qd (does not get coverage with other med options) -Limit fluid intake 2hrs prior to bedtime 2. Elevated PSA (R97.20: Elevated prostate specific antigen [PSA]) PSA: 05/24/20 - 51.51 07/16/20 - 30.52 05/20/21 - 20.30 12/21/21 - 29.06 08/19/22 - 56.46 02/18/23- 30.56, PSAD 0.2 Confirm MDX October 2020 42% likelihood of [...] evidence of malignancy Prior TOMMY 08/2022 neg Pt did not get PSA level drawn prior to appt today. Offered to have this done IO, pt is willing. -PSA FT to be drawn IO. Will call pt with results. -Cont PSA monitoring 3. Feeling of incomplete bladder emptying (R39.14: Feeling of incomplete bladder emptying) PVR (cc): 05/27/23 - 48 -See #1 4. ED (erectile dysfunction) (N52.9: Male erectile dysfunction, unspecified) KEVIN 1 (1). Not a priority. Follow-up With When Contact Information Chandler CHAVEZ, Sugey Cummins, URL, URO [address], [place] [phone] Additional Instructions: 6 mos (no labs) Patient Education Benign Prostatic Hyperplasia I, Kayli Garcia, personally scribed for Dr. Arteaga on 02/17/2024 10:30:37. . Documentation recorded by the mamadouibKayli lemons, accurately reflects the services(s) I performed and decisions made by me. Authenticated by Dr. Arteaga on 02/17/2024 12:34:49. Problem List/Past Medical History Ongoing Anticoagulant long-term use BPH with urinary obstruction ED (erectile dysfunction) Elevated PSA Feeling of incomplete bladder emptying Former smoker Hepatitis C Hyperlipidemia Male hypogonadism Microscopic hematuria Nocturia PIN III (prostatic intraepithelial neoplasm III) Prostate pain Urinary retention Weak urinary stream Historical No qualifying data Procedure/Surgical History Cystoscopy (09/22/2022), Transrectal biopsy of prostate using ultrasound (US) guidance (01/22/2022), Transrectal biopsy of prostate using ultrasound (US) guidance (11/09/2019), Transrectal biopsy of prostate using ultrasound (US) guidance (05/19/2018), Appendectomy, Cardiac pacemaker, Colonoscopy, Tonsillectomy, Tx - Liver transplantation. Medica (more content not included)... Normal [facility] Comment on above: Result Comment: Elec tronically Signed By: Sugey Arteaga MD\.br\Date and Time Signed: 02/17/24 12:34 EDT\.br\Electronically Co-Signed By: Kayli Garcia\.br\Date and Time Co-Signed: 02/17/24 10:30 EDT [facility] (Bld) [Mass/Vol] 5.7 ng/mL Normal 5.0-20.0 [facility] Comment on above: Order Comment: Speci men [...] i. Performed By: #### 1 1253-2 #### [facility] CLIA [id number] [address] [place] [address] [place] Tacrolimus Bld-mCncon 2023 Tacrolimus (Bld) [Mass/Vol] 6.7 ng/mL Normal 5.0-20.0 [facility] Comment on above: Order Comment: Allegra donis [...] i. Performed By: #### 1 1253-2 #### [facility] CLIA [id number] [address] [place], [place] [id number] [place] Tacrolimus Bld-mCncon 2023 Tacrolimus (Bld) [Mass/Vol] 5.1 ng/mL Normal 5.0-20.0 [facility] Comment on above: Order Comment: Allegra donis [...] i. Performed By: #### 1 1253-2 #### [facility] CLIA [id number] [address] [place], [place] [id number] [place] Screenson 08-14-2023 Screens [id number]#1.0 0TIFF Normal [facility] Screens [id number]#1.0 0TIFF Normal [facility] Ambulatory Visit Summaryon 0 08-13-2023 Ambulatory Visit Summary WHITSUSAN Kenny :1950 Visit Date:08/13/2023 Ambulatory Visit Instructions Your Diagnosis BPH with urinary obstruction Elevated PSA Feeling of incomplete bladder emptying ED (erectile dysfunction) Your Care Team Attending Physician - Sugey Arteaga MD Primary Care Physician - ELVIRA SCHULTZ DO This Is Your Medications List finasteride (finasteride 5 mg Tab) oxybutynin (oxybutynin 5 mg Tab) terazosin (terazosin 5 mg Cap) Contact prescribing physician if questions or concerns Misc Prescription aspirin (aspirin 81 mg oral tablet) cholecalciferol (Vitamin D3) elderberry metoprolol (Metoprolol tartrate 25 mg Tab) sulfamethoxazole tacrolimus zinc sulfate (Zinc) Procedures Performed Cystoscopy (09/22/2022), Transrectal biopsy of prostate using ultrasound (US) guidance (01/22/2022), Transrectal biopsy of prostate using ultrasound (US) guidance (11/09/2019), Transrectal biopsy of prostate using ultrasound (US) guidance (05/19/2018), Appendectomy, Cardiac pacemaker, Colonoscopy, Tonsillectomy, Tx - Liver transplantation. Discharge Vitals Blood Pressure 132/84 Height 178 cm Height 70 in Weight 80 kg Weight 176 lb BMI 25.25 What to do next Scheduled Follow-Up Appointments Thursday 9:45 AM EDT With: Sugey Arteaga MD Where: [facility] Patient Educationon 08-13-19 24 Patient Education Urology Benign Prostatic Hyperplasia Benign [...] Follow these instructions at home: ? Take [id number]-[id number] and prescription medicines only as told by [...] the medicine (more content not included)... Normal [facility] Urology Office/Clinic Noteon 08-13-2023 Urology Office/Clinic Note Chief Complaint Medication clarification HPI Staff Pt is here for medication clarification. Pt stopped into the [place] Office 08/11/23 with questions about his medications. Last encounter states pt should be taking Oxybutynin, Finasteride & Terazosin. pt states he has not taken Finasteride due to SE, does not take the Oxybutynin due to SE, and is taking the Terazosin Called pharmacy for clarification... Pt filled the Finasteride in Dec, has not refilled Terazosin in at least 12 mo. They do have scripts for both Finasteride & Oxybutynin. Did send new script for Terazosin (verbal). He did bring his meds with him. He was worried about the side effects on them so he stopped taking them IPSS 16 KEVIN 1 Dysuria: _denies Incomplete bladder emptying: _denies Hematuria: _denies visible blood Frequency: every couple hours Urgency: _every couple hours Nocturia: _3-4 times nightly Stream: denies hesitation, weaker stream Leaking: _denies Post void dripping: _sometimes Wearing pads/ Depends: _denies Urge incontinence: _denies Stress incontinence: _denies Incontinence without Sensory Awareness: _denies Abdominal pain: _denies Flank pain: _denies Sexual complaints: _denies History of Present Illness Tests reviewed: reviewed UA I have reviewed the previous health record information and history for this patient from Dr. Arteaga. I have reviewed and verified the staff [...] See HPI. Physical Exam Vitals & Measurements BP: 132/84 HT: 70 in HT: 178 cm WT: 80 kg WT: 176 lb BMI: 25.25 General Appearance: alert, no distress, well nourished, well developed male. Assessment/Plan 73 [address] healthy male prior Dr. Alves pt with chronically elevated PSA and neg biopsies x 4 here for follow up due to medication clarification. Portions of this record may have been created with voice recognition artificial intelligence software, specifically [employer] and or [employer] Substitutions may have occurred due to the inherent limitations of voice recognition and artificial intelligence software. 1. BPH with urinary obstruction (N40.1: Benign prostatic hyperplasia with lower urinary tract symptoms) Cysto 09/22/2022 showed moderate to severe trilobar hypertrophy with global intravesical protrusion including median lobe without sulcus 2 cm. Moderate bilobar, severe near bladder neck. R>L MRI Prostate volume 11/11/22 - 149 ml Previously failed Flomax due to lightheadedness. IPSS 16 (19) UA today shows trace-intact blood and trace leuks. Again discussed outlet procedures including HOLEP, Aqua-ablation, staged TURP, robotic simple prostatectomy. Risks/benefits again discussed. Pt would like to avoid procedures. Here today due to needing medication clarification. As of last visit, pt had taken Finasteride but d/c due to becoming dizzy. Pt was directed to take medication at bedtime, and if pt was unable to tolerate, pt was to stop Finasteride and increase Terazosin to 10mg. Pt was also to continue Oxybutynin. Previously was to start Cialis, however pt never started taking it. Reports he has not taken Finasteride due to SE, does not take the Oxybutynin due to SE, and is taking Terazosin. Our office called pt's pharmacy for clarification. Pt filled Finasteride in May, has not refilled Terazosin in at least 12 months. They do have scripts for Finasteride & Oxybutynin. Stopped taking medications due to SEs. Reports that he is unable to remember if he experienced dizziness when he took Finasteride at night. States he became fatigued after taking it. States he is taking Oxybutynin at night. Reports he is still getting up 3x per night. Prior to medication he was getting up approx 5x per night. Unsure if Oxybutynin is causing SEs due to already having dry mouth and constipation. Reports he is also taking Terazosin 5mg qd. Has complaints of urgency. Educated on kegel exercises and bladder pathophysiology. Typically voids every 2-3 hours, sometimes longer. Advised pt to void more frequently. Again discussed the role of Finasteride to shrink prostate over time. Pt states he will try to take Finasteride again at bedtime and reassess SEs. Declines surgery or other changes at this time -Cont Terazosin and Oxy (more content not included)... Normal [facility] Comment on above: Result Comment: Elec tronically Signed By: Sugey Arteaga MD\.br\Date and Time Signed: 08/13/23 09:48 EST\.br\Electronically Co-Signed By: Jenna Zarco\.br\Date and Time Co-Signed: 08/13/23 09:42 EST Wilbert 07-27-2023 CNPN Telephone (TXCTMN) SUSAN SHERMAN ([id number]) 1950 M Date Time Provider Department 07/27/23 YULISA LEWIS TXCTMN During your visit today, we recorded the following information about you: Yulisa Lewis RN 07/27/2023 4:02 PM Signed Tacrolimus PA submitted via [facility] website. [place]: [id number] Awaiting coverage determination. Yulisa Lewis RN, BSN, [facility] [employer] Advisor Yulisa Lewis RN 07/28/2023 1:58 PM Signed PA denied, pharmacy was billing incorrectly. Medicare paid for OLT and tacrolimus should be billed under part B. Pharmacy billing incorrectly. Yulisa Lewis RN, BSN, [facility] [employer] Advisor Allergies As of Date: 07/27/2023 (No Known Allergies) Date Reviewed: 04/16/2020 Reviewed by: Latisha Hernandez (Rn), RN - Fully Assessed Reason for Visit: Insurance Authorization [[id number]] Cmt: Tacrolimus Prescriptions as of 07/28/2023 - [...] encephalopathy (HCC) [K76.82] 08/14/2012 02/18/2017 DVT prophylaxis [KSM2547] 08/14/2012 02/18/2017 Mechanically assisted ventilation [Z99.11] 08/14/2012 [...] Status:Closed by YULISA LEWIS on 07/28/23 Normal [facility] Tacrolimus Bld-mCncon 2023 Tacrolimus (Bld) [Mass/Vol] 6.2 ng/mL Normal 5.0-20.0 [facility] Comment on above: Order Comment: Speci men [...] i. Performed By: #### 1 1253-2 #### [facility] CLIA [id number] [address] [place], [place] [address] [place] Screenson 05-29-2023 Screens [id number]#1.0 0TIFF Normal [facility] Screens [id number]#1.0 0TIFF Normal [facility] Ambulatory Visit Summaryon 1 07-28-2022 Ambulatory Visit Summary SUSAN SHERMAN :1950 Visit Date:05/27/2023 Ambulatory Visit Instructions Your Diagnosis BPH with urinary obstruction Elevated PSA Feeling of incomplete bladder emptying ED (erectile dysfunction) Other obstructive and reflux uropathy Tests Performed Urnls Dip Stick Auto w/o Microscopy POC 06314 Your Care Team Attending Physician - Sugey [...] Urnls Dip Stick Auto w/o Microscopy POC 11359 (05/27/2023) Bilirubin Urine Dipstick - Negative Blood Urine Dipstick - Negative Glucose Urine Dipstick - Negative Ketones Urine Dipstick - Negative Leukocytes Urine Dipstick - Trace Nitrite Urine Dipstick - Negative Protein Urine Dipstick - Negative Specific [place] Urine Dipstick - 1.025 Urine Appearance Urine [...] older than (more content not included)... Normal [facility] Patient Educationon 05-27-20 23 Patient Education [...] Follow these instructions at home: ? Take [id number]-[id number] and prescription medicines only as told by [...] the medicine (more content not included)... Normal [facility] Urology Office/Clinic Noteon 12--2023 Urology Office/Clinic Note Chief Complaint 3m to [...] the patient (more content not included)... Normal [facility] Comment on above: Result Comment: Elec tronically Signed By: Sugey Arteaga MD\.br\Date and Time Signed: 05/27/23 12:15 EST\.br\Electronically Co-Signed By: Marizol Francis\.br\Date and Time Co-Signed: 05/27/23 10:37 EST Ambulatory Visit Summaryon 0 02-25-2023 Ambulatory Visit Summary SUSAN SHERMAN :1950 Visit Date:02/25/2023 Ambulatory Visit Instructions Your Diagnosis BPH with urinary obstruction Elevated PSA Feeling of incomplete bladder emptying ED (erectile dysfunction) Tests Performed Urnls Dip Stick Auto w/o Microscopy POC 30370 Your Care Team Attending Physician - Sugey [...] Urnls Dip Stick Auto w/o Microscopy POC 66420 (02/25/2023) Bilirubin Urine Dipstick - Negative Blood Urine Dipstick - Negative Glucose Urine Dipstick - Negative Ketones Urine Dipstick - Trace - 5 mg/dl Leukocytes Urine Dipstick - Negative Nitrite Urine Dipstick - Negative Protein Urine Dipstick - Negative Specific [place] Urine Dipstick - 1.025 Urine Appearance Urine [...] prostate cance (more content not included)... Normal [facility] Patient Educationon 02-26-20 Patient Education Oncology Prostate [...] Where to find more information ? The [place] [employer]: www.cancer.org ? [place] [employer]: www.auanet.org Contact a health care [...] adds flu (more content not included)... Normal [facility] Screenson 02-25-2023 Screens [id number]#1. 00CD:127 Normal [facility] Screens [id number]#1. 00CD:127 Normal [facility] Urology Office/Clinic Noteon 02-25-2023 Urology Office/Clinic [...] educating the (more content not included)... Normal [facility] Comment on above: Result Comment: Elec tronically Signed By: Chandler CHAVEZ, Sugey Cummins\.br\Date and Time Signed: 02/25/23 10:46 EDT\.br\Electronically Co-Signed By: Marizol Francis\.br\Date and Time Co-Signed: 02/25/23 09:49 EDT\.br\Electronically Co-Signed By: Marizol Francis\.br\Date and Time Co-Signed: 02/25/23 09:50 EDT Creatinine (Bld) [Mass/Vol]O rdered By: Sugey Arteaga on 11-11-2022 Creatinine [Mass/Vol] 1.5 mg/dL 0.6-1.3 [facility] Comment on above: ER/ESD physician is notified/shown all ISTAT results.Critical values may be confirmed by laboratory testing ifdeemed necessary by ER attending doctor. C reactive protein [Mass/vol ume] in Serum or PlasmaOrdered By: Imad Asaad on 11-06-2022 CRP [Mass/Vol] < 0.5 mg/dL 0.0-0.5 [facility] Calprotectin [Mass/mass] in StoolOrdered By: Imad Asaad on 11-06-2022 Calprotectin (Stl) [Mass/Mass] 31 ug/g 0-120 [facility] Comment on above: Concentration Interp retation Follow-Up< 5 - 50 ug/g Normal None>50 -120 ug/g Borderline Re-evaluate in 4-6 weeks >120 ug/g Abnormal Repeat as clinically indicatedPerformed at: [facility] [address] [id number] Director: Slim Lewis MD, Phone: [phone] Clostridioides difficile tox in B tcdB gene [Presence] in Stool by LUZ MARIA with probe deteOrdered By: Sheila Magallanes on 11-06-2022 C. difficile toxin B tcdB gene LUZ MARIA+probe Ql (Stl) Negative Negative [facility] Comment on above: Testing performed by RT-PCR Elastase.pancreatic [Mass/ma ss] in StoolOrdered By: Sheila Magallanes on 11-06-2022 Elastase.pancreatic (Stl) [Mass/Mass] 132 >200 [facility] Comment on above: Result Units: ug [address] st./g Severe Pancreatic Insufficiency: <100 Moderate Pancreatic Insufficiency: 100 - 200 Normal: >200Performed at: [facility] [id number] Director: Slim Lewis MD, Phone: [phone] Erythrocyte sedimentation ra te by Photometric methodOrdered By: Sheila Magallanes on 11-06-2022 ESR Photometric method (Bld) [Velocity] < 1 mm/hr 0- [facility] IgA [Mass/volume] in Serum o r PlasmaOrdered By: Sheila Magallanes on 11-06-2022 IgA [Mass/Vol] 23 mg/dL 61-437 [facility] Comment on above: Result confirmed on concentration.Performed at: - [facility] [id number] Director: Jorge Lockwood PhD, Phone: [phone] No Panel InformationOrdered By: Sheila Magallanes on 11-06-2022 Endomysial IgA Antibody Negative Negative [facility] Ova and Parasite Result 1 [facility] Ova or parasites identificat ionOrdered By: Sheila Magallanes on 11-06-2022 Ova and parasites identified LM Nom (Unsp spec) [facility] Serum gliadin peptide IgA an tibody assay (units/volume)Ordered By: Sheila Magallanes on 11-06-2022 Gliadin peptide IgA Qn (S) 5 units 0-19 [facility] Comment on above: Negative 0 - 19 Weak Positive 20 - 30 Moderate to Strong Positive >30 Serum gliadin peptide IgG an tibody assay (units/volume)Ordered By: [facility] on 11-06-2022 Gliadin peptide IgG Qn (S) 4 units 0-19 [facility] Comment on above: Negative 0 - 19 Weak Positive 20 - 30 Moderate to Strong Positive >30 Serum tissue transglutaminas e (tTG) IgA antibody assay (units/volume)Ordered By: [facility] on 11-06-2022 tTG IgA Qn (S) <2 U/mL 0-3 [facility] Comment on above: Negative 0 - 3 Weak Positive 4 - 10 Positive >10 Tissue Transglutaminase (tTG) has been identified as the endomysial antigen. Studies have demonstr- ated that endomysial IgA antibodies have over 99% specificity for gluten sensitive enteropathy. Serum tissue transglutaminas e (tTG) IgG antibody assay (units/volume)Ordered By: [facility] on 11-06-2022 tTG IgG Qn (S) <2 U/mL 0-5 [facility] Comment on above: Negative 0 - 5 Weak Positive 6 - 9 Positive >9 Stool bacteria identificatio n by cultureOrdered By: [facility] on 11-06-2022 Bacteria identified Cx Nom (Stl) [facility] Stool sodium measurement (mo les/volume)Ordered By: [facility] [facility] on 11-06-2022 Sodium (Stl) [Moles/Vol] See comment [facility] Comment on above: See report. Scanned copy available in EMR. Thyrotropin [Units/volume] i n Serum or PlasmaOrdered By: yung Calderon on 11-06-2022 TSH Qn 3.51 m[IU]/L 0.45-5.33 [facility] HEP C RNA BY PCR QUANT (NON- GRAPHICAL) Won 10-21-2022 HCV Genotype RTNI Normal [facility] Comment on above: Result Comment: Not indicated Performed By: #### E MERLE DE OLIVEIRA #### [facility] [address] [address] [address] Yogi Naidu HCV log10 UPTCAL Normal [facility] Comment on above: Result Comment: Unab le to calculate result since non-numeric result obtained for component test. Performed By: #### E RUR, DASHRO #### [facility] [address] [address] [address] Yogi Naidu Hepatitis C Quantitation Not detected Normal [facility] Comment on above: Performed By: #### E RUR, DASHRO #### [facility] [address] [place] [address] Dr. Yogi Naidu Test Information: Comment Normal [facility] Comment on above: Result Comment: The quantitative range of this assay is 15 IU/mL to 100 million IU/mL. Performed By: #### E RUR, DASHRO #### [facility] [address] [place] [address] Dr. Yogi Naidu BOX TEST SENT OUTon 10-21-19 23 SENT TO REF LAB 10/20/2022 Normal [facility] Comment on above: Performed By: #### B OX #### [facility] [address] [place] [address] Dr. Yogi Naidu CBC AUTO DIFFon 10-20-2022 BASO # 0.1 103/ul Normal 0.0-0.1 [facility] Comment on above: Performed By: #### C BC #### [facility] [address] [place] [address] Dr. Yogi Niadu Basophils/100 WBC (Bld) 1.1 % Normal 0.2-2.0 [facility] Comment on above: Performed By: #### C BC #### [facility] [address] [place] [address] Dr. Yogi Naidu EO # 0.2 103/ul Normal 0.0-0.7 [facility] Comment on above: Performed By: #### C BC #### [facility] [address] [place] [address] Dr. Yogi Naidu Eosinophils/100 WBC (Bld) 3.6 % Normal 0.9-7.0 [facility] Comment on above: Performed By: #### C BC #### [facility] [address] [place] [address] Dr. Yogi Naidu Erythrocyte distribution width (RBC) [Ratio] 14.2 % Normal 11.0-15.0 [facility] Comment on above: Performed By: #### C BC #### [facility] [address] [place] [address] Dr. Yogi Naidu Hematocrit (Bld) [Volume fraction] 45.4 % Normal 42.0-54.0 [facility] Comment on above: Performed By: #### C BC #### [facility] [address] [place] [address] Dr. Yogi Naidu Hemoglobin (Bld) [Mass/Vol] 15.0 g/dL Normal 14.0-18.0 [facility] Comment on above: Performed By: #### C BC #### [facility] [address] [place] [address] Dr. Yogi Naidu IG # 0.02 10e3/ul Normal 0.00-0.03 [facility] Comment on above: Performed By: #### C BC #### [facility] [address] [place] [address] Dr. Yogi Naidu IG % 0.4 % Normal 0.0-0.5 [facility] Comment on above: Performed By: #### C BC #### [facility] [address] [place] [address] Dr. Yogi Naidu LYMPH # 0.7 103/ul Critically low 1.2-3.8 [facility] Comment on above: Performed By: #### C BC #### [facility] [address] [place] [address] Dr. Yogi Naidu Lymphocytes/100 WBC (Bld) 13.3 % Critically low 20.5-60.0 [facility] Comment on above: Performed By: #### C BC #### [facility] [address] [place] [address] Dr. Yogi Naidu MANUAL DIFF REQ NO Normal [facility] Comment on above: Performed By: #### C BC #### [facility] [address] [place] [address] Dr. Yogi Naidu MCH (RBC) [Entitic mass] 29.7 pg Normal 25.9-34.0 [facility] Comment on above: Performed By: #### C BC #### [facility] [address] [address] [address] Yogi Naidu MCHC (RBC) [Mass/Vol] 33.0 g/dL Normal 29.9-35.2 [facility] Comment on above: Performed By: #### C BC #### [facility] [address] [address] [address] Yogi Naidu MCV (RBC) [Entitic vol] 89.9 fL Normal 80.0-94.0 [facility] Comment on above: Performed By: #### C BC #### [facility] [address] [address] [address] Yogi Naidu MONO # 0.3 103/ul Normal 0.3-0.8 [facility] Comment on above: Performed By: #### C BC #### [facility] [address] [address] [address] Yogi Naidu Monocytes/100 WBC (Bld) 5.8 % Normal 1.7-12.0 [facility] Comment on above: Performed By: #### C BC #### [facility] [address] [address] [address] Yogi Naidu NEUT # 4.1 103/ul Normal 1.4-6.5 [facility] Comment on above: Performed By: #### C BC #### [facility] [address] [address] [address] Yogi Naidu Neutrophils/100 WBC (Bld) 75.8 % Critically high 43.0-75.0 [facility] Comment on above: Performed By: #### C BC #### [facility] [address] [address] [address] Yogi Naidu Platelet mean volume (Bld) [Entitic vol] 9.3 fL Critically low 9.5-13.5 [facility] Comment on above: Performed By: #### C BC #### [facility] [address] [address] [address] Yogi Naidu PLT 174 103/ul Normal 150-450 [facility] Comment on above: Performed By: #### C BC #### [facility] [address] [address] [address] Yogi Naidu RBC 5.05 106/ul Normal 4.70-6.10 [facility] Comment on above: Performed By: #### C BC #### [facility] [address] [place] [address] Dr. Yogi Naidu WBC 5.4 103/ul Normal 4.0-11.0 [facility] Comment on above: Performed By: #### C BC #### [facility] [address] [address] [address] Yogi Naidu GGTon 10-20-2022 Gamma glutamyl transferase [Catalytic activity/Vol] 28 U/L Normal 15-85 [facility] Comment on above: Performed By: #### C MP, MG, PHOS, GGT #### [facility] [address] [place] [address] Dr. Yogi Naidu LIPID PROFILEon 10-20-2022 CHOL-HDL RATIO NORM SEE BELOW Normal [facility] Comment on above: Result Comment: 3.3 - 4.4 LOW RISK 4.4 - 7.1 AVERAGE RISK 7.1 - 11.0 MODERATE RISK >11.0 HIGH RISK Performed By: #### C MP, MG, PHOS, GGT #### [facility] [address] [place] [address] Dr. Yogi Naidu Cholesterol [Mass/Vol] 195 mg/dL Normal <=200 [facility] Comment on above: Performed By: #### C MP, MG, PHOS, GGT #### [facility] [address] [place] [address] Dr. Yogi Naidu Cholesterol in HDL [Mass/Vol] 50 mg/dL Normal 40-60 [facility] Comment on above: Performed By: #### C MP, MG, PHOS, GGT #### [facility] [address] [place] [address] Dr. Yogi Naidu Cholesterol in LDL [Mass/Vol] 131.6 mg/dL Normal [facility] Comment on above: Performed By: #### C MP, MG, PHOS, GGT #### [facility] [address] [address] [address] Yogi Naidu Cholesterol.total/Choles terol in HDL [Mass ratio] 3.9 {ratio} Normal [facility] Comment on above: Performed By: #### C MP, MG, PHOS, GGT #### [facility] [address] [address] [address] Yogi Naidu HDL NORMAL > or = 60 mg/dl - LO W CARDIOVASCULAR RISK <40 mg/dl - HIGH CARDIOVASCULAR RISK Normal [facility] Comment on above: Performed By: #### C MP, MG, PHOS, GGT #### [facility] [address] [address] [address] Yogi Naidu LDL CALC NORMAL SEE BELOW Normal [facility] Comment on above: Result Comment: <100 mg/dl OPTIMAL 100 - 129 mg/dl NEAR OR ABOVE OPTIMAL 130 - 159 mg/dl BORDERLINE HIGH 160 - 189 mg/dl HIGH >190 mg/dl VERY HIGH Performed By: #### C MP, MG, PHOS, GGT #### [facility] [address] [address] [address] Yogi Naidu Triglyceride [Mass/Vol] 67 mg/dL Normal <=150 T [facility] Comment on above: Performed By: #### C MP, MG, PHOS, GGT #### [facility] [address] [address] [address] Yogi Naidu VLDL CALC 13.4 mg/dL Normal [facility] Comment on above: Performed By: #### C MP, MG, PHOS, GGT #### [facility] [address] [place] [address] Dr. Yogi Naidu MAGNESIUMon 10-20-2022 Magnesium [Mass/Vol] 1.8 mg/dL Normal 1.8-2.4 [facility] Comment on above: Performed By: #### C MP, MG, PHOS, GGT #### [facility] [address] [address] [address] Yogi Naidu PHOSPHORUSon 10-20-2022 Phosphate [Mass/Vol] 3.2 mg/dL Normal 2.6-4.7 [facility] Comment on above: Performed By: #### C MP, MG, PHOS, GGT #### [facility] [address] [place] [address] Dr. Yogi Naidu PROF 14(COMP METB)on 023 Albumin [Mass/Vol] 3.8 g/dL Normal 3.4-5.0 [facility] Comment on above: Performed By: #### C MP, MG, PHOS, GGT #### [facility] [address] [place] [address] Dr. Yogi Naidu Albumin/Globulin [Mass ratio] 1.5 {ratio} Normal [facility] Comment on above: Performed By: #### C MP, MG, PHOS, GGT #### [facility] [address] [place] [address] Dr. Yogi Naidu ALP [Catalytic activity/Vol] 64 U/L Normal 46-116 [facility] Comment on above: Performed By: #### C MP, MG, PHOS, GGT #### [facility] [address] [place] [address] Dr. Yogi Naidu ALT [Catalytic activity/Vol] 21 U/L Normal 16-63 [facility] Comment on above: Performed By: #### C MP, MG, PHOS, GGT #### [facility] [address] [place] [address] Dr. Yogi Naidu Anion gap [Moles/Vol] 12.6 mmol/L Normal [facility] Comment on above: Performed By: #### C MP, MG, PHOS, GGT #### [facility] [address] [place] [address] Dr. Yogi Naidu AST [Catalytic activity/Vol] 14 U/L Critically low 15-37 [facility] Comment on above: Performed By: #### C MP, MG, PHOS, GGT #### [facility] [address] [place] [address] Dr. Yogi Naidu Bilirubin [Mass/Vol] 0.6 mg/dL Normal 0.2-1.0 [facility] Comment on above: Performed By: #### C MP, MG, PHOS, GGT #### [facility] [address] [place] [address] Dr. Yogi Naidu Calcium [Mass/Vol] 9.1 mg/dL Normal 8.5-10.1 [facility] Comment on above: Performed By: #### C MP, MG, PHOS, GGT #### [facility] [address] [place] [address] Dr. Yogi Naidu Chloride [Moles/Vol] 110 mmol/L Critically high 98-107 [facility] Comment on above: Performed By: #### C MP, MG, PHOS, GGT #### [facility] [address] [place] [address] Dr. Yogi Naidu CO2 [Moles/Vol] 27.6 mmol/L Normal 21.0-32.0 [facility] Comment on above: Performed By: #### C MP, MG, PHOS, GGT #### [facility] [address] [place] [address] Dr. Yogi Naidu Creatinine [Mass/Vol] 1.06 mg/dL Normal 0.70-1.30 [facility] Comment on above: Performed By: #### C MP, MG, PHOS, GGT #### [facility] [address] [place] [address] Dr. Yogi Naidu EGFR-AF SWAZI >60 Normal >=60 [facility] Comment on above: Performed By: #### C MP, MG, PHOS, GGT #### [facility] [address] [place] [address] Dr. Yogi Naidu EGFR-NON AF SWAZI >60 Normal >=60 [facility] Comment on above: Performed By: #### C MP, MG, PHOS, GGT #### [facility] [address] [place] [address] Dr. Yogi Naidu Globulin (S) [Mass/Vol] 2.6 g/dL Normal T [facility] Comment on above: Performed By: #### C MP, MG, PHOS, GGT #### [facility] [address] [place] [address] Dr. Yogi Naidu Glucose [Mass/Vol] 106 mg/dL Normal 74-106 [facility] Comment on above: Performed By: #### C MP, MG, PHOS, GGT #### [facility] [address] [place] [address] Dr. Yogi Naidu Potassium [Moles/Vol] 4.2 mmol/L Normal 3.5-5.1 [facility] Comment on above: Performed By: #### C MP, MG, PHOS, GGT #### [facility] [address] [place] [address] Dr. Yogi Naidu Protein [Mass/Vol] 6.4 g/dL Normal 6.4-8.2 [facility] Comment on above: Performed By: #### C MP, MG, PHOS, GGT #### [facility] [address] [place] [address] Dr. Yogi Naidu Sodium [Moles/Vol] 146 mmol/L Critically high 136-145 [facility] Comment on above: Performed By: #### C MP, MG, PHOS, GGT #### [facility] [address] [place] [address] Dr. Yogi Naidu Urea nitrogen [Mass/Vol] 20.0 mg/dL Critically high 7.0-18 .0 [facility] Comment on above: Performed By: #### C MP, MG, PHOS, GGT #### [facility] [address] [place] [address] Dr. Yogi Naidu Urea nitrogen/Creatinine [Mass ratio] 18.9 mg/mg Normal [facility] Comment on above: Performed By: #### C MP, MG, PHOS, GGT #### [facility] [address] [place] [address] Dr. Yogi Naidu Prostate specific Ag [Mass/v olume] in Serum or PlasmaOrdered By: Sugey Arteaga on 10-09-2022 Prostate specific Ag [Mass/Vol] 48.840 ng/mL 0.000-4.000 [facility] CULTURE URINEon 09-29-2022 CULTURE URINE Isolate 1 [...] F Nitrofurantoin <=16 S F Normal [facility] Comment on above: Performed By: #### C MP, MG, PHOS, GGT #### [facility] [address] [place] [address] Dr. Yogi Naidu ER URINE PROFILEon 3 Bilirubin Ql (U) Negative Normal NEGATIVE [facility] Comment on above: Performed By: #### DASH CULVERRO #### [facility] [address] [place] [address] Dr. Yogi Naidu Clarity (U) SL CLOUDY Abnormal CLEAR [facility] Comment on above: Performed By: #### DASH CULVERRO #### [facility] [address] [place] [address] Dr. Yogi Naidu Color (U) LT. YELLOW Normal YELLOW [facility] Comment on above: Performed By: #### DASH CULVERRO #### [facility] [address] [place] [address] Dr. Yogi KIRAN A micrscopic examination will be performed if indicated. Normal [facility] Comment on above: Performed By: #### DASH CULVERRO #### [facility] [address] [place] [address] Dr. Yogi Naidu Glucose Ql (U) Negative Normal NEGATIVE [facility] Comment on above: Performed By: #### DASH CULVERRO #### [facility] [address] [place] [address] Dr. Yogi Naidu Hemoglobin Ql (U) Negative Normal NEGATIVE [facility] Comment on above: Performed By: #### DASH CULVERRO #### [facility] [address] [place] [address] Dr. Yogi Naidu Ketones Ql (U) 15 mg/dl Abnormal NEGATIVE [facility] Comment on above: Performed By: #### Vesta DE OLIVEIRA UMICRO #### [facility] [address] [place] [address] Dr. Yogi Naidu LEUKOCYTES MODERATE Abnormal NEGATIVE [facility] Comment on above: Performed By: #### Vesta DE OLIVEIRA UMICRO #### [facility] [address] [place] [address] Dr. Yogi Naidu Nitrite Ql (U) Negative Normal NEGATIVE [facility] Comment on above: Performed By: #### Vesta DE OLIVEIRA UMICRO #### [facility] [address] [place] [address] Dr. Yogi Naidu pH (U) 5.5 [pH] Normal 5-9 [facility] Comment on above: Performed By: #### Vesta DE OLIVEIRA UMICRO #### [facility] [address] [place] [address] Dr. Yogi Naidu SPEC GRAVITY 1.030 Abnormal 1.005-<=1.[address] [place] [address] Comment on above: Performed By: #### Vesta DE OLIVEIRA UMICRO #### [facility] [address] [place] [address] Dr. Yogi Naidu UA PROTEIN TRACE Normal NEGATIVE/ TRACE [facility] Comment on above: Performed By: #### Vesta DE OLIVEIRA UMICRO #### [facility] [address] [place] [address] Dr. Yogi Naidu UR MICRO IND INDICATED Normal [facility] Comment on above: Performed By: #### Vesta DE OLIVEIRA UMICRO #### [facility] [address] [place] [address] Dr. Yogi Naidu Urobilinogen Qn (U) 0.2 {Kt'U}/dL Normal 0.2 - 1. 0 [facility] Comment on above: Performed By: #### Vesta DE OLIVEIRA, UMICRO #### [facility] [address] [place] [address] Dr. Yogi Naidu URINE MICROSCOPIC ONLYon BACTERIA SMALL Abnormal NONE SEEN [facility] Comment on above: Performed By: #### Vesta DE OLIVEIRA UMICRO #### [facility] [address] [place] [address] Dr. Yogi Naidu Bacteria identified Cx Nom (U) CX ALREADY ORDERED Normal [facility] Comment on above: Performed By: #### E ALIVNO, UMICRO #### [facility] [address] [place] [address] Dr. Yogi Naidu CAST NONE SEEN Normal NONE SEEN [facility] Comment on above: Performed By: #### E ALVINO, UMICRO #### [facility] [address] [place] [address] Dr. Yogi Naidu Crystals LM Nom (Urine sed) NONE SEEN Normal NONE SEEN [facility] Comment on above: Performed By: #### E ALVINO UMICRO #### [facility] [address] [place] [address] Dr. Yogi Naidu Epithelial cells LM Ql (Urine sed) NONE SEEN Normal NONE SEEN /RARE [facility] Comment on above: Performed By: #### Vesta DE OLIVEIRA UMICRO #### [facility] [address] [place] [address] Dr. Yogi Naidu MUCOUS NONE SEEN Normal NONE SEEN [facility] Comment on above: Performed By: #### Vesta DE OLIVEIRA UMICRO #### [facility] [address] [place] [address] Dr. Yogi Naidu RBC 0-2 Normal 0-2 [facility] Comment on above: Performed By: #### Vesta DE OLIVEIRA UMICRO #### [facility] [address] [place] [address] Dr. Yogi Naidu WBC 50-75 Abnormal NONE SEEN [facility] Comment on above: Performed By: #### Vesta DE OLIVEIRA UMICRO #### [facility] [address] [place] [address] Dr. Yogi Naidu BOX TEST SENT OUTon 08-20-19 23 SENT TO REF LAB 08/19/2022 Normal [facility] Comment on above: Performed By: #### B OX #### [facility] [address] [place] [address] Dr. Yogi Naidu CBC AUTO DIFFon 08-19-2022 BASO # 0.1 103/ul Normal 0.0-0.1 [facility] Comment on above: Performed By: #### C MP, MG, PHOS, GGT #### [facility] [address] [place] [address] Dr. Yogi Naidu Basophils/100 WBC (Bld) 0.9 % Normal 0.2-2.0 [facility] Comment on above: Performed By: #### C MP, MG, PHOS, GGT #### [facility] [address] [place] [address] Dr. Yogi Naidu EO # 0.2 103/ul Normal 0.0-0.7 [facility] Comment on above: Performed By: #### C MP, MG, PHOS, GGT #### [facility] [address] [place] [address] Dr. Yogi Naidu Eosinophils/100 WBC (Bld) 2.8 % Normal 0.9-7.0 [facility] Comment on above: Performed By: #### C MP, MG, PHOS, GGT #### [facility] [address] [place] [address] Dr. Yogi Naidu Erythrocyte distribution width (RBC) [Ratio] 13.9 % Normal 11.0-15.0 [facility] Comment on above: Performed By: #### C MP, MG, PHOS, GGT #### [facility] [address] [place] [address] Dr. Yogi Naidu Hematocrit (Bld) [Volume fraction] 46.0 % Normal 42.0-54.0 [facility] Comment on above: Performed By: #### C MP, MG, PHOS, GGT #### [facility] [address] [place] [address] Dr. Yogi Naidu Hemoglobin (Bld) [Mass/Vol] 15.6 g/dL Normal 14.0-18.0 [facility] Comment on above: Performed By: #### C MP, MG, PHOS, GGT #### [facility] [address] [place] [address] Dr. Yogi Naidu IG # 0.02 10e3/ul Normal 0.00-0.03 [facility] Comment on above: Performed By: #### C MP, MG, PHOS, GGT #### [facility] [address] [place] [address] Dr. Yogi Naidu IG % 0.3 % Normal 0.0-0.5 [facility] Comment on above: Performed By: #### C MP, MG, PHOS, GGT #### [facility] [address] [place] [address] Dr. Yogi Naidu LYMPH # 0.9 103/ul Critically low 1.2-3.8 [facility] Comment on above: Performed By: #### C MP, MG, PHOS, GGT #### [facility] [address] [place] [address] Dr. Yogi Naidu Lymphocytes/100 WBC (Bld) 12.8 % Critically low 20.5-60.0 [facility] Comment on above: Performed By: #### C MP, MG, PHOS, GGT #### [facility] [address] [place] [address] Dr. Yogi Naidu MANUAL DIFF REQ NO Normal [facility] Comment on above: Performed By: #### C MP, MG, PHOS, GGT #### [facility] [address] [place] [address] Dr. Yogi Naidu MCH (RBC) [Entitic mass] 29.7 pg Normal 25.9-34.0 [facility] Comment on above: Performed By: #### C MP, MG, PHOS, GGT #### [facility] [address] [place] [address] Dr. Yogi Naidu MCHC (RBC) [Mass/Vol] 33.9 g/dL Normal 29.9-35.2 [facility] Comment on above: Performed By: #### C MP, MG, PHOS, GGT #### [facility] [address] [place] [address] Dr. Yogi Naidu MCV (RBC) [Entitic vol] 87.6 fL Normal 80.0-94.0 [facility] Comment on above: Performed By: #### C MP, MG, PHOS, GGT #### [facility] [address] [place] [address] Dr. Yogi Naidu MONO # 0.4 103/ul Normal 0.3-0.8 [facility] Comment on above: Performed By: #### C MP, MG, PHOS, GGT #### [facility] [address] [place] [address] Dr. Yogi Naidu Monocytes/100 WBC (Bld) 6.0 % Normal 1.7-12.0 [facility] Comment on above: Performed By: #### C MP, MG, PHOS, GGT #### [facility] [address] [place] [address] Dr. Yogi Naidu NEUT # 5.2 103/ul Normal 1.4-6.5 [facility] Comment on above: Performed By: #### C MP, MG, PHOS, GGT #### [facility] [address] [place] [address] Dr. Yogi Naidu Neutrophils/100 WBC (Bld) 77.2 % Critically high 43.0-75.0 [facility] Comment on above: Performed By: #### C MP, MG, PHOS, GGT #### [facility] [address] [place] [address] Dr. Yogi Naidu Platelet mean volume (Bld) [Entitic vol] 9.3 fL Critically low 9.5-13.5 [facility] Comment on above: Performed By: #### C MP, MG, PHOS, GGT #### [facility] [address] [place] [address] Dr. Yogi Naidu PLT 215 103/ul Normal 150-450 [facility] Comment on above: Performed By: #### C MP, MG, PHOS, GGT #### [facility] [address] [place] [address] Dr. Yogi Naidu RBC 5.25 106/ul Normal 4.70-6.10 [facility] Comment on above: Performed By: #### C MP, MG, PHOS, GGT #### [facility] [address] [place] [address] Dr. Yogi Naidu WBC 6.8 103/ul Normal 4.0-11.0 [facility] Comment on above: Performed By: #### C MP, MG, PHOS, GGT #### [facility] [address] [place] [address] Dr. Yogi Naidu GGTon 08-19-2022 Gamma glutamyl transferase [Catalytic activity/Vol] 32 U/L Normal 15-85 [facility] Comment on above: Performed By: #### C MP, MG, PHOS, GGT #### [facility] [address] [place] [address] Dr. Yogi Naidu MAGNESIUMon 08-19-2022 Magnesium [Mass/Vol] 1.5 mg/dL Critically low 1.8-2.4 [facility] Comment on above: Performed By: #### C MP, MG, PHOS, GGT #### [facility] [address] [place] [address] Dr. Yogi Naidu PHOSPHORUSon 08-19-2022 Phosphate [Mass/Vol] 3.0 mg/dL Normal 2.6-4.7 [facility] Comment on above: Performed By: #### C MP, MG, PHOS, GGT #### [facility] [address] [place] [address] Dr. oYgi Naidu PROF 14(COMP METB)on 023 Albumin [Mass/Vol] 4.2 g/dL Normal 3.4-5.0 [facility] Comment on above: Performed By: #### C MP, MG, PHOS, GGT #### [facility] [address] [place] [address] Dr. Yogi Naidu Albumin/Globulin [Mass ratio] 1.7 {ratio} Normal [facility] Comment on above: Performed By: #### C MP, MG, PHOS, GGT #### [facility] [address] [place] [address] Dr. Yogi Naidu ALP [Catalytic activity/Vol] 68 U/L Normal 46-116 [facility] Comment on above: Performed By: #### C MP, MG, PHOS, GGT #### [facility] [address] [place] [address] Dr. Yogi Naidu ALT [Catalytic activity/Vol] 16 U/L Normal 16-63 [facility] Comment on above: Performed By: #### C MP, MG, PHOS, GGT #### [facility] [address] [place] [address] Dr. Yogi Naidu Anion gap [Moles/Vol] 12.4 mmol/L Normal [facility] Comment on above: Performed By: #### C MP, MG, PHOS, GGT #### [facility] [address] [place] [address] Dr. Yogi Naidu AST [Catalytic activity/Vol] 16 U/L Normal 15-37 [facility] Comment on above: Performed By: #### C MP, MG, PHOS, GGT #### [facility] [address] [place] [address] Dr. Yogi Naidu Bilirubin [Mass/Vol] 0.7 mg/dL Normal 0.2-1.0 [facility] Comment on above: Performed By: #### C MP, MG, PHOS, GGT #### [facility] [address] [place] [address] Dr. Yogi Naidu Calcium [Mass/Vol] 9.2 mg/dL Normal 8.5-10.1 [facility] Comment on above: Performed By: #### C MP, MG, PHOS, GGT #### [facility] [address] [place] [address] Dr. Yogi Naidu Chloride [Moles/Vol] 110 mmol/L Critically high 98-107 [facility] Comment on above: Performed By: #### C MP, MG, PHOS, GGT #### [facility] [address] [place] [address] Dr. Yogi Naidu CO2 [Moles/Vol] 26.6 mmol/L Normal 21.0-32.0 [facility] Comment on above: Performed By: #### C MP, MG, PHOS, GGT #### [facility] [address] [place] [address] Dr. Yogi Naidu Creatinine [Mass/Vol] 1.08 mg/dL Normal 0.70-1.30 [facility] Comment on above: Performed By: #### C MP, MG, PHOS, GGT #### [facility] [address] [address] [address] Yogi Naidu EGFR-AF SWAZI >60 Normal >=60 [facility] Comment on above: Performed By: #### C MP, MG, PHOS, GGT #### [facility] [address] [address] [address] Yogi Naidu EGFR-NON AF SWAZI >60 Normal >=60 [facility] Comment on above: Performed By: #### C MP, MG, PHOS, GGT #### [facility] [address] [place] [address] Dr. Yogi Naidu Globulin (S) [Mass/Vol] 2.4 g/dL Normal T [facility] Comment on above: Performed By: #### C MP, MG, PHOS, GGT #### [facility] [address] [address] [address] Yogi Naidu Glucose [Mass/Vol] 100 mg/dL Normal 74-106 [facility] Comment on above: Performed By: #### C MP, MG, PHOS, GGT #### [facility] [address] [address] [address] Yogi Naidu Potassium [Moles/Vol] 4.5 mmol/L Normal 3.5-5.1 [facility] Comment on above: Performed By: #### C MP, MG, PHOS, GGT #### [facility] [address] [address] [address] Yogi Naidu Protein [Mass/Vol] 6.6 g/dL Normal 6.4-8.2 [facility] Comment on above: Performed By: #### C MP, MG, PHOS, GGT #### [facility] [address] [address] [address] Yogi Naidu Sodium [Moles/Vol] 145 mmol/L Normal 136-145 [facility] Comment on above: Performed By: #### C MP, MG, PHOS, GGT #### [facility] [address] [place] [address] Dr. Yogi Naidu Urea nitrogen [Mass/Vol] 22.0 mg/dL Critically high 7.0-18 .0 [facility] Comment on above: Performed By: #### C MP, MG, PHOS, GGT #### [facility] [address] [place] [address] Dr. Yogi Naidu Urea nitrogen/Creatinine [Mass ratio] 20.3 mg/mg Normal [facility] Comment on above: Performed By: #### C MP, MG, PHOS, GGT #### [facility] [address] [place] [address] Dr. Yogi Naidu HEP C RNA BY PCR QUANT (NON- GRAPHICAL) Won 07-23-2022 HCV Genotype RTNI Normal [facility] Comment on above: Result Comment: Not indicated Performed By: #### MERLE CULVER #### [facility] [address] [place] [address] Dr. Yogi Naidu HCV log10 UPTCAL Normal [facility] Comment on above: Result Comment: Unab le to calculate result since non-numeric result obtained for component test. Performed By: #### MERLE CULVER #### [facility] [address] [place] [address] Dr. Yogi Naidu Hepatitis C Quantitation Not detected Normal [facility] Comment on above: Performed By: #### MERLE CULVER #### [facility] [address] [place] [address] Dr. Yogi Naidu Test Information: Comment Normal [facility] Comment on above: Result Comment: The quantitative range of this assay is 15 IU/mL to 100 million IU/mL. Performed By: #### MERLE CULVER #### [facility] [address] [place] [address] Dr. Yogi Naidu BOX TEST SENT OUTon 07-22-19 23 SENT TO REF LAB 07/22/2022 Normal [facility] Comment on above: Performed By: #### B OX #### [facility] [address] [place] [address] Dr. Yogi Naidu CBC AUTO DIFFon 07-22-2022 BASO # 0.1 103/ul Normal 0.0-0.1 [facility] Comment on above: Performed By: #### C BC #### [facility] [address] [place] [address] Dr. Yogi Naidu Basophils/100 WBC (Bld) 1.0 % Normal 0.2-2.0 [facility] Comment on above: Performed By: #### C BC #### [facility] [address] [place] [address] Dr. Yogi Naidu EO # 0.2 103/ul Normal 0.0-0.7 [facility] Comment on above: Performed By: #### C BC #### [facility] [address] [place] [address] Dr. Yogi Naidu Eosinophils/100 WBC (Bld) 2.5 % Normal 0.9-7.0 [facility] Comment on above: Performed By: #### C BC #### [facility] [address] [place] [address] Dr. Yogi Naidu Erythrocyte distribution width (RBC) [Ratio] 14.1 % Normal 11.0-15.0 [facility] Comment on above: Performed By: #### C BC #### [facility] [address] [place] [address] Dr. Yogi Naidu Hematocrit (Bld) [Volume fraction] 50.1 % Normal 42.0-54.0 [facility] Comment on above: Performed By: #### C BC #### [facility] [address] [place] [address] Dr. Yogi Naidu Hemoglobin (Bld) [Mass/Vol] 16.2 g/dL Normal 14.0-18.0 [facility] Comment on above: Performed By: #### C BC #### [facility] [address] [place] [address] Dr. Yogi Naidu IG # 0.03 10e3/ul Normal 0.00-0.03 [facility] Comment on above: Performed By: #### C BC #### [facility] [address] [place] [address] Dr. Yogi Naidu IG % 0.4 % Normal 0.0-0.5 [facility] Comment on above: Performed By: #### C BC #### [facility] [address] [place] [address] Dr. Yogi Naidu LYMPH # 0.7 103/ul Critically low 1.2-3.8 [facility] Comment on above: Performed By: #### C BC #### [facility] [address] [place] [address] Dr. Yogi Naidu Lymphocytes/100 WBC (Bld) 11.0 % Critically low 20.5-60.0 [facility] Comment on above: Performed By: #### C BC #### [facility] [address] [place] [address] Dr. Yogi Naidu MANUAL DIFF REQ NO Normal [facility] Comment on above: Performed By: #### C BC #### [facility] [address] [place] [address] Dr. Yogi Naidu MCH (RBC) [Entitic mass] 29.9 pg Normal 25.9-34.0 [facility] Comment on above: Performed By: #### C BC #### [facility] [address] [place] [address] Dr. Yogi Naidu MCHC (RBC) [Mass/Vol] 32.3 g/dL Normal 29.9-35.2 [facility] Comment on above: Performed By: #### C BC #### [facility] [address] [place] [address] Dr. Yogi Naidu MCV (RBC) [Entitic vol] 92.6 fL Normal 80.0-94.0 [facility] Comment on above: Performed By: #### C BC #### [facility] [address] [place] [address] Dr. Yogi Naidu MONO # 0.4 103/ul Normal 0.3-0.8 [facility] Comment on above: Performed By: #### C BC #### [facility] [address] [place] [address] Dr. Yogi Naidu Monocytes/100 WBC (Bld) 5.7 % Normal 1.7-12.0 [facility] Comment on above: Performed By: #### C BC #### [facility] [address] [place] [address] Dr. Yogi Naidu NEUT # 5.3 103/ul Normal 1.4-6.5 [facility] Comment on above: Performed By: #### C BC #### [facility] [address] [place] [address] Dr. Yogi Naidu Neutrophils/100 WBC (Bld) 79.4 % Critically high 43.0-75.0 [facility] Comment on above: Performed By: #### C BC #### [facility] [address] [place] [address] Dr. Yogi Naidu Platelet mean volume (Bld) [Entitic vol] 9.7 fL Normal 9.5-13.5 [facility] Comment on above: Performed By: #### C BC #### [facility] [address] [place] [address] Dr. Yogi Naidu PLT 206 103/ul Normal 150-450 [facility] Comment on above: Performed By: #### C BC #### [facility] [address] [place] [address] Dr. Yogi Naidu RBC 5.41 106/ul Normal 4.70-6.10 [facility] Comment on above: Performed By: #### C BC #### [facility] [address] [place] [address] Dr. Yogi Naidu WBC 6.7 103/ul Normal 4.0-11.0 [facility] Comment on above: Performed By: #### C BC #### [facility] [address] [place] [address] Dr. Yogi Naidu GGTon 07-22-2022 Gamma glutamyl transferase [Catalytic activity/Vol] 30 U/L Normal 15-85 [facility] Comment on above: Performed By: #### B OX #### [facility] [address] [place] [address] Dr. Yogi Naidu LIPID PROFILEon 07-22-2022 CHOL-HDL RATIO NORM SEE BELOW Normal [facility] Comment on above: Result Comment: 3.3 - 4.4 LOW RISK 4.4 - 7.1 AVERAGE RISK 7.1 - 11.0 MODERATE RISK >11.0 HIGH RISK Performed By: #### C MP, MG, PHOS, GGT #### [facility] [address] [place] [address] Dr. Yogi Naidu Cholesterol [Mass/Vol] 188 mg/dL Normal <=200 [facility] Comment on above: Performed By: #### C MP, MG, PHOS, GGT #### [facility] [address] [place] [address] Dr. Yogi Naidu Cholesterol in HDL [Mass/Vol] 48 mg/dL Normal 40-60 [facility] Comment on above: Performed By: #### C MP, MG, PHOS, GGT #### [facility] [address] [place] [address] Dr. Yogi Naidu Cholesterol in LDL [Mass/Vol] 123.8 mg/dL Normal [facility] Comment on above: Performed By: #### C MP, MG, PHOS, GGT #### [facility] [address] [place] [address] Dr. Yogi Naidu Cholesterol.total/Choles terol in HDL [Mass ratio] 3.9 {ratio} Normal [facility] Comment on above: Performed By: #### C MP, MG, PHOS, GGT #### [facility] [address] [place] [address] Dr. Yogi Naidu HDL NORMAL > or = 60 mg/dl - LO W CARDIOVASCULAR RISK <40 mg/dl - HIGH CARDIOVASCULAR RISK Normal [facility] Comment on above: Performed By: #### C MP, MG, PHOS, GGT #### [facility] [address] [place] [address] Dr. Yogi Naidu LDL CALC NORMAL SEE BELOW Normal [facility] Comment on above: Result Comment: <100 mg/dl OPTIMAL 100 - 129 mg/dl NEAR OR ABOVE OPTIMAL 130 - 159 mg/dl BORDERLINE HIGH 160 - 189 mg/dl HIGH >190 mg/dl VERY HIGH Performed By: #### C MP, MG, PHOS, GGT #### [facility] [address] [place] [address] Dr. Yogi Naidu Triglyceride [Mass/Vol] 81 mg/dL Normal <=150 T [facility] Comment on above: Performed By: #### C MP, MG, PHOS, GGT #### [facility] [address] [place] [address] Dr. Yogi Naidu VLDL CALC 16.2 mg/dL Normal [facility] Comment on above: Performed By: #### C MP, MG, PHOS, GGT #### [facility] [address] [place] [address] Dr. Yogi Naidu MAGNESIUMon 07-22-2022 Magnesium [Mass/Vol] 1.7 mg/dL Critically low 1.8-2.4 [facility] Comment on above: Performed By: #### B OX #### [facility] [address] [place] [address] Dr. Yogi Naidu PHOSPHORUSon 07-22-2022 Phosphate [Mass/Vol] 2.8 mg/dL Normal 2.6-4.7 [facility] Comment on above: Performed By: #### C MP, MG, PHOS, GGT #### [facility] [address] [place] [address] Dr. Yogi Naidu PROF 14(COMP METB)on 023 Albumin [Mass/Vol] 4.2 g/dL Normal 3.4-5.0 [facility] Comment on above: Performed By: #### C MP, MG, PHOS, GGT #### [facility] [address] [place] [address] Dr. Yogi Naidu Albumin/Globulin [Mass ratio] 1.7 {ratio} Normal [facility] Comment on above: Performed By: #### C MP, MG, PHOS, GGT #### [facility] [address] [place] [address] Dr. Yogi Naidu ALP [Catalytic activity/Vol] 72 U/L Normal 46-116 [facility] Comment on above: Performed By: #### C MP, MG, PHOS, GGT #### [facility] [address] [place] [address] Dr. Yogi Naidu ALT [Catalytic activity/Vol] 14 U/L Critically low 16-63 [facility] Comment on above: Performed By: #### C MP, MG, PHOS, GGT #### [facility] [address] [place] [address] Dr. Yogi Naidu Anion gap [Moles/Vol] 11.1 mmol/L Normal [facility] Comment on above: Performed By: #### C MP, MG, PHOS, GGT #### [facility] [address] [place] [address] Dr. Yogi Naidu AST [Catalytic activity/Vol] 11 U/L Critically low 15-37 [facility] Comment on above: Performed By: #### C MP, MG, PHOS, GGT #### [facility] [address] [place] [address] Dr. Yogi Naidu Bilirubin [Mass/Vol] 0.7 mg/dL Normal 0.2-1.0 [facility] Comment on above: Performed By: #### C MP, MG, PHOS, GGT #### [facility] [address] [place] [address] Dr. Yogi Naidu Calcium [Mass/Vol] 9.3 mg/dL Normal 8.5-10.1 [facility] Comment on above: Performed By: #### C MP, MG, PHOS, GGT #### [facility] [address] [place] [address] Dr. Yogi Naidu Chloride [Moles/Vol] 106 mmol/L Normal 98-107 [facility] Comment on above: Performed By: #### C MP, MG, PHOS, GGT #### [facility] [address] [place] [address] Dr. Yogi Naidu CO2 [Moles/Vol] 29.2 mmol/L Normal 21.0-32.0 [facility] Comment on above: Performed By: #### C MP, MG, PHOS, GGT #### [facility] [address] [address] [address] Yogi Naidu Creatinine [Mass/Vol] 1.08 mg/dL Normal 0.70-1.30 [facility] Comment on above: Performed By: #### C MP, MG, PHOS, GGT #### [facility] [address] [place] [address] Dr. Yogi Naidu EGFR-AF SWAZI >60 Normal >=60 [facility] Comment on above: Performed By: #### C MP, MG, PHOS, GGT #### [facility] [address] [place] [address] Dr. Yogi Naidu EGFR-NON AF SWAZI >60 Normal >=60 [facility] Comment on above: Performed By: #### C MP, MG, PHOS, GGT #### [facility] [address] [place] [address] Dr. Yogi Naidu Globulin (S) [Mass/Vol] 2.5 g/dL Normal T [facility] Comment on above: Performed By: #### C MP, MG, PHOS, GGT #### [facility] [address] [place] [address] Dr. Yogi Naidu Glucose [Mass/Vol] 90 mg/dL Normal 74-106 [facility] Comment on above: Performed By: #### C MP, MG, PHOS, GGT #### [facility] [address] [place] [address] Dr. Yogi Naidu Potassium [Moles/Vol] 4.3 mmol/L Normal 3.5-5.1 [facility] Comment on above: Performed By: #### C MP, MG, PHOS, GGT #### [facility] [address] [place] [address] Dr. Yogi Naidu Protein [Mass/Vol] 6.7 g/dL Normal 6.4-8.2 [facility] Comment on above: Performed By: #### C MP, MG, PHOS, GGT #### [facility] [address] [place] [address] Dr. Yogi Naidu Sodium [Moles/Vol] 142 mmol/L Normal 136-145 [facility] Comment on above: Performed By: #### C MP, MG, PHOS, GGT #### [facility] [address] [place] [address] Dr. Yogi Naidu Urea nitrogen [Mass/Vol] 23.0 mg/dL Critically high 7.0-18 .0 [facility] Comment on above: Performed By: #### C MP, MG, PHOS, GGT #### [facility] [address] [place] [address] Dr. Yogi Naidu Urea nitrogen/Creatinine [Mass ratio] 21.3 mg/mg Normal [facility] Comment on above: Performed By: #### C MP, MG, PHOS, GGT #### [facility] [address] [place] [address] Dr. Yogi Naidu BOX TEST SENT OUTon 06-16-19 23 SENT TO REF LAB 06/16/2022 Normal [facility] Comment on above: Performed By: #### E MERLE DE OLIVEIRA #### [facility] [address] [place] [address] Dr. Yogi Naidu CBC AUTO DIFFon 06-16-2022 BASO # 0.1 103/ul Normal 0.0-0.1 [facility] Comment on above: Performed By: #### C BC #### [facility] [address] [place] [address] Dr. Yogi Naidu Basophils/100 WBC (Bld) 1.0 % Normal 0.2-2.0 T [facility] Comment on above: Performed By: #### C BC #### [facility] [address] [place] [address] Dr. Yogi Naidu EO # 0.2 103/ul Normal 0.0-0.7 [facility] Comment on above: Performed By: #### C BC #### [facility] [address] [place] [address] Dr. Yogi Naidu Eosinophils/100 WBC (Bld) 2.5 % Normal 0.9-7.0 [facility] Comment on above: Performed By: #### C BC #### [facility] [address] [place] [address] Dr. Yogi Naidu Erythrocyte distribution width (RBC) [Ratio] 14.3 % Normal 11.0-15.0 [facility] Comment on above: Performed By: #### C BC #### [facility] [address] [place] [address] Dr. Yogi Naidu Hematocrit (Bld) [Volume fraction] 44.7 % Normal 42.0-54.0 [facility] Comment on above: Performed By: #### C BC #### [facility] [address] [place] [address] Dr. Yogi Naidu Hemoglobin (Bld) [Mass/Vol] 14.8 g/dL Normal 14.0-18.0 [facility] Comment on above: Performed By: #### C BC #### [facility] [address] [place] [address] Dr. Yogi Naidu IG # 0.01 10e3/ul Normal 0.00-0.03 [facility] Comment on above: Performed By: #### C BC #### [facility] [address] [place] [address] Dr. Yogi Naidu IG % 0.2 % Normal 0.0-0.5 [facility] Comment on above: Performed By: #### C BC #### [facility] [address] [place] [address] Dr. Yogi Naidu LYMPH # 0.7 103/ul Critically low 1.2-3.8 [facility] Comment on above: Performed By: #### C BC #### [facility] [address] [place] [address] Dr. Yogi Naidu Lymphocytes/100 WBC (Bld) 12.4 % Critically low 20.5-60.0 [facility] Comment on above: Performed By: #### C BC #### [facility] [address] [place] [address] Dr. Yogi Naidu MANUAL DIFF REQ NO Normal [facility] Comment on above: Performed By: #### C BC #### [facility] [address] [place] [address] Dr. Yogi Naidu MCH (RBC) [Entitic mass] 29.5 pg Normal 25.9-34.0 [facility] Comment on above: Performed By: #### C BC #### [facility] [address] [place] [address] Dr. Yogi Niadu MCHC (RBC) [Mass/Vol] 33.1 g/dL Normal 29.9-35.2 [facility] Comment on above: Performed By: #### C BC #### [facility] [address] [place] [address] Dr. Yogi Naidu MCV (RBC) [Entitic vol] 89.2 fL Normal 80.0-94.0 [facility] Comment on above: Performed By: #### C BC #### [facility] [address] [place] [address] Dr. Yogi Naidu MONO # 0.4 103/ul Normal 0.3-0.8 [facility] Comment on above: Performed By: #### C BC #### [facility] [address] [place] [address] Dr. Yogi Naidu Monocytes/100 WBC (Bld) 5.9 % Normal 1.7-12.0 [facility] Comment on above: Performed By: #### C BC #### [facility] [address] [place] [address] Dr. Yogi Naidu NEUT # 4.6 103/ul Normal 1.4-6.5 [facility] Comment on above: Performed By: #### C BC #### [facility] [address] [place] [address] Dr. Yogi Naidu Neutrophils/100 WBC (Bld) 78.0 % Critically high 43.0-75.0 [facility] Comment on above: Performed By: #### C BC #### [facility] [address] [place] [address] Dr. Yogi Naidu Platelet mean volume (Bld) [Entitic vol] 9.1 fL Critically low 9.5-13.5 [facility] Comment on above: Performed By: #### C BC #### [facility] [address] [place] [address] Dr. Yogi Naidu PLT 190 103/ul Normal 150-450 [facility] Comment on above: Performed By: #### C BC #### [facility] [address] [place] [address] Dr. Yogi Naidu RBC 5.01 106/ul Normal 4.70-6.10 [facility] Comment on above: Performed By: #### C BC #### [facility] [address] [place] [address] Dr. Yogi Naidu WBC 5.9 103/ul Normal 4.0-11.0 [facility] Comment on above: Performed By: #### C BC #### [facility] [address] [place] [address] Dr. Yogi Naidu GGTon 06-16-2022 Gamma glutamyl transferase [Catalytic activity/Vol] 28 U/L Normal 15-85 [facility] Comment on above: Performed By: #### C MP, MG, PHOS, GGT #### [facility] [address] [place] [address] Dr. Yogi Naidu MAGNESIUMon 06-16-2022 Magnesium [Mass/Vol] 1.6 mg/dL Critically low 1.8-2.4 [facility] Comment on above: Performed By: #### C MP, MG, PHOS, GGT #### [facility] [address] [place] [address] Dr. Yogi Naidu PHOSPHORUSon 06-16-2022 Phosphate [Mass/Vol] 3.2 mg/dL Normal 2.6-4.7 [facility] Comment on above: Performed By: #### C MP, MG, PHOS, GGT #### [facility] [address] [place] [address] Dr. Yogi Naidu PROF 14(COMP METB)on 023 Albumin [Mass/Vol] 3.8 g/dL Normal 3.4-5.0 [facility] Comment on above: Performed By: #### C MP, MG, PHOS, GGT #### [facility] [address] [place] [address] Dr. Yogi Naidu Albumin/Globulin [Mass ratio] 1.5 {ratio} Normal [facility] Comment on above: Performed By: #### C MP, MG, PHOS, GGT #### [facility] [address] [place] [address] Dr. Yogi Naidu ALP [Catalytic activity/Vol] 74 U/L Normal 46-116 [facility] Comment on above: Performed By: #### C MP, MG, PHOS, GGT #### [facility] [address] [place] [address] Dr. Yogi Naidu ALT [Catalytic activity/Vol] 13 U/L Critically low 16-63 [facility] Comment on above: Performed By: #### C MP, MG, PHOS, GGT #### [facility] [address] [place] [address] Dr. Yogi Naidu Anion gap [Moles/Vol] 10.8 mmol/L Normal [facility] Comment on above: Performed By: #### C MP, MG, PHOS, GGT #### [facility] [address] [place] [address] Dr. Yogi Naidu AST [Catalytic activity/Vol] 15 U/L Normal 15-37 [facility] Comment on above: Performed By: #### C MP, MG, PHOS, GGT #### [facility] [address] [place] [address] Dr. Yogi Naidu Bilirubin [Mass/Vol] 0.8 mg/dL Normal 0.2-1.0 [facility] Comment on above: Performed By: #### C MP, MG, PHOS, GGT #### [facility] [address] [place] [address] Dr. Yogi Naidu Calcium [Mass/Vol] 8.9 mg/dL Normal 8.5-10.1 [facility] Comment on above: Performed By: #### C MP, MG, PHOS, GGT #### [facility] [address] [place] [address] Dr. Yogi Naidu Chloride [Moles/Vol] 108 mmol/L Critically high 98-107 [facility] Comment on above: Performed By: #### C MP, MG, PHOS, GGT #### [facility] [address] [address] [address] Yogi Naidu CO2 [Moles/Vol] 27.6 mmol/L Normal 21.0-32.0 [facility] Comment on above: Performed By: #### C MP, MG, PHOS, GGT #### [facility] [address] [address] [address] Yogi Naidu Creatinine [Mass/Vol] 1.12 mg/dL Normal 0.70-1.30 [facility] Comment on above: Performed By: #### C MP, MG, PHOS, GGT #### [facility] [address] [address] [address] Yogi Naidu EGFR-AF SWAZI >60 Normal >=60 [facility] Comment on above: Performed By: #### C MP, MG, PHOS, GGT #### [facility] [address] [place] [address] Dr. Yogi Naidu EGFR-NON AF SWAZI >60 Normal >=60 [facility] Comment on above: Performed By: #### C MP, MG, PHOS, GGT #### [facility] [address] [address] [address] Yogi Naidu Globulin (S) [Mass/Vol] 2.5 g/dL Normal [facility] Comment on above: Performed By: #### C MP, MG, PHOS, GGT #### [facility] [address] [address] [address] Yogi Naidu Glucose [Mass/Vol] 95 mg/dL Normal 74-106 [facility] Comment on above: Performed By: #### C MP, MG, PHOS, GGT #### [facility] [address] [address] [address] Yogi Naidu Potassium [Moles/Vol] 4.4 mmol/L Normal 3.5-5.1 [facility] Comment on above: Performed By: #### C MP, MG, PHOS, GGT #### [facility] [address] [address] [address] Yogi Naidu Protein [Mass/Vol] 6.3 g/dL Critically low 6.4-8.2 [facility] Comment on above: Performed By: #### C MP, MG, PHOS, GGT #### [facility] [address] [place] [address] Dr. Yogi Naidu Sodium [Moles/Vol] 142 mmol/L Normal 136-145 [facility] Comment on above: Performed By: #### C MP, MG, PHOS, GGT #### [facility] [address] [place] [address] Dr. Yogi Naidu Urea nitrogen [Mass/Vol] 24.0 mg/dL Critically high 7.0-18 .0 [facility] Comment on above: Performed By: #### C MP, MG, PHOS, GGT #### [facility] [address] [place] [address] Dr. Yogi Naidu Urea nitrogen/Creatinine [Mass ratio] 21.4 mg/mg Normal [facility] Comment on above: Performed By: #### C MP, MG, PHOS, GGT #### [facility] [address] [place] [address] Dr. Yogi Naidu BOX TEST SENT OUTon 05-19-20 22 SENT TO REF LAB 05/19/2022 Normal [facility] Comment on above: Performed By: #### E MERLE DE OLIVEIRA #### [facility] [address] [place] [address] Dr. Yogi Naidu CBC AUTO DIFFon 05-19-2022 BASO # 0.1 103/ul Normal 0.0-0.1 [facility] Comment on above: Performed By: #### C MP, MG, PHOS, GGT #### [facility] [address] [place] [address] Dr. Yogi Naidu Basophils/100 WBC (Bld) 1.2 % Normal 0.2-2.0 [facility] Comment on above: Performed By: #### C MP, MG, PHOS, GGT #### [facility] [address] [place] [address] Dr. Yogi Naidu EO # 0.3 103/ul Normal 0.0-0.7 [facility] Comment on above: Performed By: #### C MP, MG, PHOS, GGT #### [facility] [address] [place] [address] Dr. Yogi Naidu Eosinophils/100 WBC (Bld) 4.2 % Normal 0.9-7.0 [facility] Comment on above: Performed By: #### C MP, MG, PHOS, GGT #### [facility] [address] [place] [address] Dr. Yogi Naidu Erythrocyte distribution width (RBC) [Ratio] 14.2 % Normal 11.0-15.0 [facility] Comment on above: Performed By: #### C MP, MG, PHOS, GGT #### [facility] [address] [place] [address] Dr. Yogi Naidu Hematocrit (Bld) [Volume fraction] 45.5 % Normal 42.0-54.0 [facility] Comment on above: Performed By: #### C MP, MG, PHOS, GGT #### [facility] [address] [place] [address] Dr. Yogi Naidu Hemoglobin (Bld) [Mass/Vol] 15.3 g/dL Normal 14.0-18.0 [facility] Comment on above: Performed By: #### C MP, MG, PHOS, GGT #### [facility] [address] [place] [address] Dr. Yogi Naidu IG # 0.02 10e3/ul Normal 0.00-0.03 [facility] Comment on above: Performed By: #### C MP, MG, PHOS, GGT #### [facility] [address] [place] [address] Dr. Yogi Naidu IG % 0.3 % Normal 0.0-0.5 [facility] Comment on above: Performed By: #### C MP, MG, PHOS, GGT #### [facility] [address] [place] [address] Dr. Yogi Naidu LYMPH # 0.7 103/ul Critically low 1.2-3.8 [facility] Comment on above: Performed By: #### C MP, MG, PHOS, GGT #### [facility] [address] [place] [address] Dr. Yogi Naidu Lymphocytes/100 WBC (Bld) 10.1 % Critically low 20.5-60.0 [facility] Comment on above: Performed By: #### C MP, MG, PHOS, GGT #### [facility] [address] [place] [address] Dr. Yogi Naidu MANUAL DIFF REQ NO Normal [facility] Comment on above: Performed By: #### C MP, MG, PHOS, GGT #### [facility] [address] [place] [address] Dr. Yogi Naidu MCH (RBC) [Entitic mass] 29.7 pg Normal 25.9-34.0 [facility] Comment on above: Performed By: #### C MP, MG, PHOS, GGT #### [facility] [address] [place] [address] Dr. Yogi Naidu MCHC (RBC) [Mass/Vol] 33.6 g/dL Normal 29.9-35.2 [facility] Comment on above: Performed By: #### C MP, MG, PHOS, GGT #### [facility] [address] [place] [address] Dr. Yogi Naidu MCV (RBC) [Entitic vol] 88.3 fL Normal 80.0-94.0 [facility] Comment on above: Performed By: #### C MP, MG, PHOS, GGT #### [facility] [address] [place] [address] Dr. Yogi Naidu MONO # 0.5 103/ul Normal 0.3-0.8 [facility] Comment on above: Performed By: #### C MP, MG, PHOS, GGT #### [facility] [address] [place] [address] Dr. Yogi Naidu Monocytes/100 WBC (Bld) 6.6 % Normal 1.7-12.0 [facility] Comment on above: Performed By: #### C MP, MG, PHOS, GGT #### [facility] [address] [address] [address] Yogi Naidu NEUT # 5.7 103/ul Normal 1.4-6.5 [facility] Comment on above: Performed By: #### C MP, MG, PHOS, GGT #### [facility] [address] [place] [address] Dr. Yogi Naidu Neutrophils/100 WBC (Bld) 77.6 % Critically high 43.0-75.0 [facility] Comment on above: Performed By: #### C MP, MG, PHOS, GGT #### [facility] [address] [address] [address] Yogi Naidu Platelet mean volume (Bld) [Entitic vol] 9.3 fL Critically low 9.5-13.5 [facility] Comment on above: Performed By: #### C MP, MG, PHOS, GGT #### [facility] [address] [place] [address] Dr. Yogi Naidu PLT 176 103/ul Normal 150-450 [facility] Comment on above: Performed By: #### C MP, MG, PHOS, GGT #### [facility] [address] [address] [address] Yogi Naidu RBC 5.15 106/ul Normal 4.70-6.10 [facility] Comment on above: Performed By: #### C MP, MG, PHOS, GGT #### [facility] [address] [place] [address] Dr. Yogi Naidu WBC 7.3 103/ul Normal 4.0-11.0 [facility] Comment on above: Performed By: #### C MP, MG, PHOS, GGT #### [facility] [address] [place] [address] Dr. Yogi Naidu GGTon 05-19-2022 Gamma glutamyl transferase [Catalytic activity/Vol] 32 U/L Normal 15-85 [facility] Comment on above: Performed By: #### C BC #### [facility] [address] [place] [address] Dr. Yogi Naidu MAGNESIUMon 05-19-2022 Magnesium [Mass/Vol] 1.9 mg/dL Normal 1.8-2.4 [facility] Comment on above: Performed By: #### C BC #### [facility] [address] [place] [address] Dr. Yogi Naidu PHOSPHORUSon 05-19-2022 Phosphate [Mass/Vol] 2.9 mg/dL Normal 2.6-4.7 [facility] Comment on above: Performed By: #### C BC #### [facility] [address] [place] [address] Dr. Yogi Naidu PROF 14(COMP METB)on 022 Albumin [Mass/Vol] 4.0 g/dL Normal 3.4-5.0 [facility] Comment on above: Performed By: #### C BC #### [facility] [address] [place] [address] Dr. Yogi Naidu Albumin/Globulin [Mass ratio] 1.6 {ratio} Normal [facility] Comment on above: Performed By: #### C BC #### [facility] [address] [place] [address] Dr. Yogi Naidu ALP [Catalytic activity/Vol] 79 U/L Normal 46-116 [facility] Comment on above: Performed By: #### C BC #### [facility] [address] [place] [address] Dr. Yogi Naidu ALT [Catalytic activity/Vol] 13 U/L Critically low 16-63 [facility] Comment on above: Performed By: #### C BC #### [facility] [address] [place] [address] Dr. Yogi Naidu Anion gap [Moles/Vol] 10.1 mmol/L Normal [facility] Comment on above: Performed By: #### C BC #### [facility] [address] [place] [address] Dr. Yogi Naidu AST [Catalytic activity/Vol] 13 U/L Critically low 15-37 [facility] Comment on above: Performed By: #### C BC #### [facility] [address] [place] [address] Dr. Yogi Naidu Bilirubin [Mass/Vol] 0.6 mg/dL Normal 0.2-1.0 [facility] Comment on above: Performed By: #### C BC #### [facility] [address] [place] [address] Dr. Yogi Naidu Calcium [Mass/Vol] 8.9 mg/dL Normal 8.5-10.1 [facility] Comment on above: Performed By: #### C BC #### [facility] [address] [place] [address] Dr. Yogi Naidu Chloride [Moles/Vol] 108 mmol/L Critically high 98-107 [facility] Comment on above: Performed By: #### C BC #### [facility] [address] [place] [address] Dr. Yogi Naidu CO2 [Moles/Vol] 29.2 mmol/L Normal 21.0-32.0 [facility] Comment on above: Performed By: #### C BC #### [facility] [address] [place] [address] Dr. Yogi Naidu Creatinine [Mass/Vol] 0.98 mg/dL Normal 0.70-1.30 [facility] Comment on above: Performed By: #### C BC #### [facility] [address] [place] [address] Dr. Yogi Naidu EGFR-AF SWAZI >60 Normal >=60 [facility] Comment on above: Performed By: #### C BC #### [facility] [address] [place] [address] Dr. Yogi Naidu EGFR-NON AF SWAZI >60 Normal >=60 [facility] Comment on above: Performed By: #### C BC #### [facility] [address] [place] [address] Dr. Yogi Naidu Globulin (S) [Mass/Vol] 2.5 g/dL Normal T [facility] Comment on above: Performed By: #### C BC #### [facility] [address] [place] [address] Dr. Yogi Naidu Glucose [Mass/Vol] 92 mg/dL Normal 74-106 [facility] Comment on above: Performed By: #### C BC #### [facility] [address] [address] [address] Yogi Naidu Potassium [Moles/Vol] 4.3 mmol/L Normal 3.5-5.1 [facility] Comment on above: Performed By: #### C BC #### [facility] [address] [address] [address] Yogi Naidu Protein [Mass/Vol] 6.5 g/dL Normal 6.4-8.2 [facility] Comment on above: Performed By: #### C BC #### [facility] [address] [address] [address] Yogi Naidu Sodium [Moles/Vol] 143 mmol/L Normal 136-145 [facility] Comment on above: Performed By: #### C BC #### [facility] [address] [address] [address] Yogi Naidu Urea nitrogen [Mass/Vol] 24.0 mg/dL Critically high 7.0-18 .0 [facility] Comment on above: Performed By: #### C BC #### [facility] [address] [address] [address] Yogi Naidu Urea nitrogen/Creatinine [Mass ratio] 24.5 mg/mg Normal [facility] Comment on above: Performed By: #### C BC #### [facility] [address] [address] [address] Yogi Naidu HEP C RNA BY PCR QUANT (NON- GRAPHICAL) Won 04-22-2022 HCV Genotype RTNI Normal [facility] Comment on above: Result Comment: Not indicated Performed By: #### C BC #### [facility] [address] [address] [address] Yogi Naidu HCV log10 UPTCAL Normal [facility] Comment on above: Result Comment: Unab le to calculate result since non-numeric result obtained for component test. Performed By: #### C BC #### [facility] [address] [address] [address] Yogi Naidu Hepatitis C Quantitation Not detected Normal [facility] Comment on above: Performed By: #### C BC #### [facility] [address] [place] [address] Dr. Yogi Naidu Test Information: Comment Normal [facility] Comment on above: Result Comment: The quantitative range of this assay is 15 IU/mL to 100 million IU/mL. Performed By: #### C BC #### [facility] [address] [place] [address] Dr. Yogi Naidu BOX TEST SENT OUTon 04-21-20 22 SENT TO REF LAB 04/21/2022 Normal [facility] Comment on above: Performed By: #### C BC #### [facility] [address] [place] [address] Dr. Yogi Naidu CBC AUTO DIFFon 04-21-2022 BASO # 0.1 103/ul Normal 0.0-0.1 [facility] Comment on above: Performed By: #### C MP, MG, PHOS, GGT #### [facility] [address] [place] [address] Dr. Yogi Naidu Basophils/100 WBC (Bld) 1.0 % Normal 0.2-2.0 [facility] Comment on above: Performed By: #### C MP, MG, PHOS, GGT #### [facility] [address] [place] [address] Dr. Yogi Naidu EO # 0.2 103/ul Normal 0.0-0.7 [facility] Comment on above: Performed By: #### C MP, MG, PHOS, GGT #### [facility] [address] [place] [address] Dr. Yogi Naidu Eosinophils/100 WBC (Bld) 2.7 % Normal 0.9-7.0 [facility] Comment on above: Performed By: #### C MP, MG, PHOS, GGT #### [facility] [address] [place] [address] Dr. Yogi Naidu Erythrocyte distribution width (RBC) [Ratio] 14.2 % Normal 11.0-15.0 [facility] Comment on above: Performed By: #### C MP, MG, PHOS, GGT #### [facility] [address] [place] [address] Dr. Yogi Naidu Hematocrit (Bld) [Volume fraction] 46.5 % Normal 42.0-54.0 [facility] Comment on above: Performed By: #### C MP, MG, PHOS, GGT #### [facility] [address] [place] [address] Dr. Yogi Naidu Hemoglobin (Bld) [Mass/Vol] 15.6 g/dL Normal 14.0-18.0 [facility] Comment on above: Performed By: #### C MP, MG, PHOS, GGT #### [facility] [address] [place] [address] Dr. Yogi Naidu IG # 0.03 10e3/ul Normal 0.00-0.03 [facility] Comment on above: Performed By: #### C MP, MG, PHOS, GGT #### [facility] [address] [place] [address] Dr. Yogi Naidu IG % 0.4 % Normal 0.0-0.5 [facility] Comment on above: Performed By: #### C MP, MG, PHOS, GGT #### [facility] [address] [place] [address] Dr. Yogi Naidu LYMPH # 0.8 103/ul Critically low 1.2-3.8 [facility] Comment on above: Performed By: #### C MP, MG, PHOS, GGT #### [facility] [address] [place] [address] Dr. Yogi Naidu Lymphocytes/100 WBC (Bld) 11.3 % Critically low 20.5-60.0 [facility] Comment on above: Performed By: #### C MP, MG, PHOS, GGT #### [facility] [address] [place] [address] Dr. Yogi Naidu MANUAL DIFF REQ NO Normal [facility] Comment on above: Performed By: #### C MP, MG, PHOS, GGT #### [facility] [address] [place] [address] Dr. Yogi Naidu MCH (RBC) [Entitic mass] 30.1 pg Normal 25.9-34.0 [facility] Comment on above: Performed By: #### C MP, MG, PHOS, GGT #### [facility] [address] [place] [address] Dr. Yogi Naidu MCHC (RBC) [Mass/Vol] 33.5 g/dL Normal 29.9-35.2 [facility] Comment on above: Performed By: #### C MP, MG, PHOS, GGT #### [facility] [address] [place] [address] Dr. Yogi Naidu MCV (RBC) [Entitic vol] 89.6 fL Normal 80.0-94.0 [facility] Comment on above: Performed By: #### C MP, MG, PHOS, GGT #### [facility] [address] [place] [address] Dr. Yogi Naidu MONO # 0.4 103/ul Normal 0.3-0.8 [facility] Comment on above: Performed By: #### C MP, MG, PHOS, GGT #### [facility] [address] [place] [address] Dr. Yogi Naidu Monocytes/100 WBC (Bld) 6.0 % Normal 1.7-12.0 [facility] Comment on above: Performed By: #### C MP, MG, PHOS, GGT #### [facility] [address] [place] [address] Dr. Yogi Naidu NEUT # 5.5 103/ul Normal 1.4-6.5 [facility] Comment on above: Performed By: #### C MP, MG, PHOS, GGT #### [facility] [address] [place] [address] Dr. Yogi Naidu Neutrophils/100 WBC (Bld) 78.6 % Critically high 43.0-75.0 [facility] Comment on above: Performed By: #### C MP, MG, PHOS, GGT #### [facility] [address] [place] [address] Dr. Yogi Naidu Platelet mean volume (Bld) [Entitic vol] 10.1 fL Normal 9.5-13.5 [facility] Comment on above: Performed By: #### C MP, MG, PHOS, GGT #### [facility] [address] [place] [address] Dr. Yogi aNidu PLT 204 103/ul Normal 150-450 [facility] Comment on above: Performed By: #### C MP, MG, PHOS, GGT #### [facility] [address] [place] [address] Dr. Yogi Naidu RBC 5.19 106/ul Normal 4.70-6.10 [facility] Comment on above: Performed By: #### C MP, MG, PHOS, GGT #### [facility] [address] [place] [address] Dr. Yogi Naidu WBC 7.0 103/ul Normal 4.0-11.0 [facility] Comment on above: Performed By: #### C MP, MG, PHOS, GGT #### [facility] [address] [place] [address] Dr. Yogi Naidu GGTon 04-21-2022 Gamma glutamyl transferase [Catalytic activity/Vol] 34 U/L Normal 15-85 [facility] Comment on above: Performed By: #### MERLE CULVER #### [facility] [address] [place] [address] Dr. Yogi Naidu LIPID PROFILEon 04-21-2022 CHOL-HDL RATIO NORM SEE BELOW Normal [facility] Comment on above: Result Comment: 3.3 - 4.4 LOW RISK 4.4 - 7.1 AVERAGE RISK 7.1 - 11.0 MODERATE RISK >11.0 HIGH RISK Performed By: #### MERLE CULVER #### [facility] [address] [place] [address] Dr. Yogi Naidu Cholesterol [Mass/Vol] 190 mg/dL Normal <=200 [facility] Comment on above: Performed By: #### MERLE CULVER #### [facility] [address] [place] [address] Dr. Yogi Naidu Cholesterol in HDL [Mass/Vol] 49 mg/dL Normal 40-60 [facility] Comment on above: Performed By: #### Vesta DE OLIVEIRA UMICRO #### [facility] [address] [address] [address] Yogi Naidu Cholesterol in LDL [Mass/Vol] 127.8 mg/dL Normal [facility] Comment on above: Performed By: #### Vesta DE OLIVEIRA UMICRO #### [facility] [address] [address] [address] Yogi Naidu Cholesterol.total/Choles terol in HDL [Mass ratio] 3.9 {ratio} Normal [facility] Comment on above: Performed By: #### Vesta DE OLIVEIRA UMICRO #### [facility] [address] [place] [address] Dr. Yogi Naidu HDL NORMAL > or = 60 mg/dl - LO W CARDIOVASCULAR RISK <40 mg/dl - HIGH CARDIOVASCULAR RISK Normal [facility] Comment on above: Performed By: #### Vesta DE OLIVEIRA UMICRO #### [facility] [address] [address] [address] Yogi Naidu LDL CALC NORMAL SEE BELOW Normal [facility] Comment on above: Result Comment: <100 mg/dl OPTIMAL 100 - 129 mg/dl NEAR OR ABOVE OPTIMAL 130 - 159 mg/dl BORDERLINE HIGH 160 - 189 mg/dl HIGH >190 mg/dl VERY HIGH Performed By: #### Vesta DE OLIVEIRA UMICRO #### [facility] [address] [address] [address] Yogi Naidu Triglyceride [Mass/Vol] 66 mg/dL Normal <=150 T [facility] Comment on above: Performed By: #### Vesta DE OLIVEIRA UMICRO #### [facility] [address] [place] [address] Dr. Yogi Naidu VLDL CALC 13.2 mg/dL Normal [facility] Comment on above: Performed By: #### Vesta DE OLIVEIRA UMICRO #### [facility] [address] [place] [address] Dr. Yogi Naidu MAGNESIUMon 04-21-2022 Magnesium [Mass/Vol] 1.8 mg/dL Normal 1.8-2.4 [facility] Comment on above: Performed By: #### DASH CULVERRO #### [facility] [address] [place] [address] Dr. Yogi Naidu PHOSPHORUSon 04-21-2022 Phosphate [Mass/Vol] 3.4 mg/dL Normal 2.6-4.7 [facility] Comment on above: Performed By: #### DASH CULVERRO #### [facility] [address] [place] [address] Dr. Yogi Naidu PROF 14(COMP METB)on 022 Albumin [Mass/Vol] 4.0 g/dL Normal 3.4-5.0 [facility] Comment on above: Performed By: #### DASH CULVERRO #### [facility] [address] [place] [address] Dr. Yogi Naidu Albumin/Globulin [Mass ratio] 1.6 {ratio} Normal [facility] Comment on above: Performed By: #### DASH CULVERRO #### [facility] [address] [place] [address] Dr. Yogi Naidu ALP [Catalytic activity/Vol] 81 U/L Normal 46-116 [facility] Comment on above: Performed By: #### DASH CULVERRO #### [facility] [address] [place] [address] Dr. Yogi Naidu ALT [Catalytic activity/Vol] 14 U/L Critically low 16-63 [facility] Comment on above: Performed By: #### DASH CULVERRO #### [facility] [address] [place] [address] Dr. Yogi Naidu Anion gap [Moles/Vol] 8.8 mmol/L Normal [facility] Comment on above: Performed By: #### DASH CULVERRO #### [facility] [address] [place] [address] Dr. Yogi Naidu AST [Catalytic activity/Vol] 15 U/L Normal 15-37 [facility] Comment on above: Performed By: #### DASH CULVERRO #### [facility] [address] [place] [address] Dr. Yogi Naidu Bilirubin [Mass/Vol] 0.6 mg/dL Normal 0.2-1.0 [facility] Comment on above: Performed By: #### Vesta DE OLIVEIRA UMICRO #### [facility] [address] [place] [address] Dr. Yogi Naidu Calcium [Mass/Vol] 9.2 mg/dL Normal 8.5-10.1 [facility] Comment on above: Performed By: #### Vesta DE OLIVEIRA, UMICRO #### [facility] [address] [place] [address] Dr. Yogi Naidu Chloride [Moles/Vol] 106 mmol/L Normal 98-107 [facility] Comment on above: Performed By: #### Vesta DE OLIVEIRA UMICRO #### [facility] [address] [place] [address] Dr. Yogi Naidu CO2 [Moles/Vol] 28.5 mmol/L Normal 21.0-32.0 [facility] Comment on above: Performed By: #### Vesta DE OLIVEIRA UMICRO #### [facility] [address] [place] [address] Dr. Yogi Naidu Creatinine [Mass/Vol] 1.12 mg/dL Normal 0.70-1.30 [facility] Comment on above: Performed By: #### Vesta DE OLIVEIRA UMICRO #### [facility] [address] [place] [address] Dr. Yogi Naidu EGFR-AF SWAZI >60 Normal >=60 [facility] Comment on above: Performed By: #### Vesta DE OLIVEIRA UMICRO #### [facility] [address] [place] [address] Dr. Yogi Naidu EGFR-NON AF SWAZI >60 Normal >=60 [facility] Comment on above: Performed By: #### Vesta DE OLIVEIRA, UMICRO #### [facility] [address] [place] [address] Dr. Yogi Naidu Globulin (S) [Mass/Vol] 2.5 g/dL Normal T [facility] Comment on above: Performed By: #### DASH CULVERRO #### [facility] [address] [address] [address] Yogi Naidu Glucose [Mass/Vol] 91 mg/dL Normal 74-106 [facility] Comment on above: Performed By: #### DASH CULVERRO #### [facility] [address] [place] [address] Dr. Yogi Naidu Potassium [Moles/Vol] 4.3 mmol/L Normal 3.5-5.1 [facility] Comment on above: Performed By: #### Vesta DE OLIVEIRA UMICRO #### [facility] [address] [place] [address] Dr. Yogi Naidu Protein [Mass/Vol] 6.5 g/dL Normal 6.4-8.2 [facility] Comment on above: Performed By: #### DASH CULVERRO #### [facility] [address] [place] [address] Dr. Yogi Naidu Sodium [Moles/Vol] 139 mmol/L Normal 136-145 [facility] Comment on above: Performed By: #### DASH CULVERRO #### [facility] [address] [place] [address] Dr. Yogi Naidu Urea nitrogen [Mass/Vol] 25.0 mg/dL Critically high 7.0-18 .0 [facility] Comment on above: Performed By: #### DASH CULVERRO #### [facility] [address] [place] [address] Dr. Yogi Naidu Urea nitrogen/Creatinine [Mass ratio] 22.3 mg/mg Normal [facility] Comment on above: Performed By: #### Vesta DE OLIVEIRA UMBERNARDARO #### [facility] [address] [place] [address] Dr. Yogi Naidu Tobacco Screening.on 022 Adult depression screening assessment No [facility] [place] [address] DO Work Phone: Fall risk assessment a) No falls within the last year [facility] [place] [address] [place] Work Phone: Tobacco use status [facility]PHS b) No [facility] [place] [address] [place] Work Phone: BOX TEST SENT OUTon 03-17-20 SENT TO REF LAB 03/17/2022 Normal [facility] Comment on above: Performed By: #### C MP, MG, PHOS, GGT #### [facility] [address] [place] [address] Dr. Yogi Naidu CBC W MANUAL DIFFon 03-17-20 ATYPICAL LYMPH # Normal [facility] Comment on above: Performed By: #### Vesta DE OLIVEIRA UMICRO #### [facility] [address] [place] [address] Dr. Yogi Naidu ATYPICAL LYMPH % Normal [facility] Comment on above: Performed By: #### Vesta DE OLIVEIRA UMICRO #### [facility] [address] [place] [address] Dr. Yogi Naidu BAND # Normal 0.0-0.3 [facility] Comment on above: Performed By: #### Vesta DE OLIVEIRA UMICRO #### [facility] [address] [place] [address] Dr. Yogi Naidu BAND % Normal 0-5 [facility] Comment on above: Performed By: #### Vesta DE OLIVEIRA UMICRO #### [facility] [address] [place] [address] Dr. Yogi Naidu BASOM # 0.00 103/ul Normal 0.00-0.10 [facility] Comment on above: Performed By: #### E RUCarole UMICRO #### [facility] [address] [place] [address] Dr. Yogi Naidu BASOM % 0.0 % Critically low 0.2-2.0 [facility] Comment on above: Performed By: #### E RUCarole UMICRO #### [facility] [address] [place] [address] Dr. Yogi Naidu BLAST # Normal [facility] Comment on above: Performed By: #### E RUCarole UMICRO #### [facility] [address] [place] [address] Dr. Yogi Naidu BLAST % Normal [facility] Comment on above: Performed By: #### MERLE CULVER #### [facility] [address] [address] [address] Yogi Naidu CORRECTED WBC Normal 4.0-11.0 [facility] Comment on above: Performed By: #### MERLE CULVER #### [facility] [address] [address] [address] Yogi Naidu EOS # 0.20 103/ul Normal 0.00-0.70 [facility] Comment on above: Performed By: #### MERLE CULVER #### [facility] [address] [place] [address] Dr. Yogi Naidu EOS% 3.0 % Normal 0.9-7.0 [facility] Comment on above: Performed By: #### MERLE CULVER #### [facility] [address] [place] [address] Dr. Yogi Naidu HCT 45.6 % Normal 42.0-54.0 [facility] Comment on above: Performed By: #### MERLE CULVER #### [facility] [address] [place] [address] Dr. Yogi Naidu HGB 15.2 g/dl Normal 14.0-18.0 [facility] Comment on above: Performed By: #### MERLE CULVER #### [facility] [address] [place] [address] Dr. Yogi Naidu LYMPHM # 0.78 103/ul Critically low 1.20-3.80 [facility] Comment on above: Performed By: #### MERLE CULVER #### [facility] [address] [place] [address] Dr. Yogi Naidu LYMPHM% 12.0 % Critically low 20.5-60.0 [facility] Comment on above: Performed By: #### MERLE CULVER #### [facility] [address] [place] [address] Dr. Yogi Naidu MCH 30.4 pg Normal 25.9-34.0 [facility] Comment on above: Performed By: #### DASH CULVERRO #### [facility] [address] [place] [address] Dr. Yogi Naidu MCHC 33.3 g/dl Normal 29.9-35.2 [facility] Comment on above: Performed By: #### Vesta DE OLIVEIRA UMICRO #### [facility] [address] [place] [address] Dr. Yogi Naidu MCV 91.2 fL Normal 80.0-94.0 [facility] Comment on above: Performed By: #### SONU CULVERICRO #### [facility] [address] [place] [address] Dr. Yogi Naidu METAMYELOCYTE # Normal [facility] Comment on above: Performed By: #### SONU CULVERICRO #### [facility] [address] [place] [address] Dr. Yogi Naidu METAMYELOCYTE % Normal [facility] Comment on above: Performed By: #### DASH CULVERRO #### [facility] [address] [place] [address] Dr. Yogi Naidu MONOM# 0.39 103/ul Normal 0.30-0.80 [facility] Comment on above: Performed By: #### SONU CULVERICRO #### [facility] [address] [place] [address] Dr. Yogi Naidu MONOM% 6.0 % Normal 1.7-12.0 [facility] Comment on above: Performed By: #### SONU CULVERICRO #### [facility] [address] [place] [address] Dr. Yogi Naidu MPV 9.6 fL Normal 9.5-13.5 [facility] Comment on above: Performed By: #### SONU CULVERICRO #### [facility] [address] [place] [address] Dr. Yogi Naidu MYELOCYTE # Normal [facility] Comment on above: Performed By: #### Vesta DE OLIVEIRA UMICRO #### [facility] [address] [address] [address] Yogi Naidu MYELOCYTE % Normal [facility] Comment on above: Performed By: #### Vesta DE OLIVEIRA UMICRO #### [facility] [address] [address] [address] Yogi Naidu NRBC Normal [facility] Comment on above: Performed By: #### Vesta DE OLIVEIRA UMICRO #### [facility] [address] [address] [address] Yogi Naidu PLT 180 103/ul Normal 150-450 [facility] Comment on above: Performed By: #### SONU CULVERICRO #### [facility] [address] [address] [address] Yogi Naidu RBC 5.00 106/ul Normal 4.70-6.10 [facility] Comment on above: Performed By: #### SONU CULVERICRO #### [facility] [address] [place] [address] Dr. Yogi Naidu RDW 14.1 % Normal 11.0-15.0 [facility] Comment on above: Performed By: #### Vesta DE OLIVEIRA UMICRO #### [facility] [address] [place] [address] Dr. Yogi Naidu SEG # 5.13 103/ul Normal 1.40-6.50 [facility] Comment on above: Performed By: #### SONU CULVERICRO #### [facility] [address] [address] [address] Yogi Naidu SEG % 79.0 % Critically high 43.0-75.0 [facility] Comment on above: Performed By: #### DASH CULVERRO #### [facility] [address] [address] [address] Yogi Naidu WBC 6.5 103/ul Normal 4.0-11.0 [facility] Comment on above: Performed By: #### E RUR, UMICRO #### [facility] [address] [place] [address] Dr. Yogi Naidu GGTon 03-17-2022 Gamma glutamyl transferase [Catalytic activity/Vol] 37 U/L Normal 15-85 [facility] Comment on above: Performed By: #### C MP, MG, PHOS, GGT #### [facility] [address] [place] [address] Dr. Yogi Naidu MAGNESIUMon 03-17-2022 Magnesium [Mass/Vol] 1.8 mg/dL Normal 1.8-2.4 [facility] Comment on above: Performed By: #### C MP, MG, PHOS, GGT #### [facility] [address] [place] [address] Dr. Yogi Naidu PHOSPHORUSon 03-17-2022 Phosphate [Mass/Vol] 2.9 mg/dL Normal 2.6-4.7 [facility] Comment on above: Performed By: #### C MP, MG, PHOS, GGT #### [facility] [address] [place] [address] Dr. Yogi Naidu PROF 14(COMP METB)on 022 Albumin [Mass/Vol] 3.9 g/dL Normal 3.4-5.0 [facility] Comment on above: Performed By: #### C MP, MG, PHOS, GGT #### [facility] [address] [place] [address] Dr. Yogi Naidu Albumin/Globulin [Mass ratio] 1.6 {ratio} Normal [facility] Comment on above: Performed By: #### C MP, MG, PHOS, GGT #### [facility] [address] [place] [address] Dr. Yogi Niadu ALP [Catalytic activity/Vol] 75 U/L Normal 46-116 [facility] Comment on above: Performed By: #### C MP, MG, PHOS, GGT #### [facility] [address] [place] [address] Dr. Yogi Naidu ALT [Catalytic activity/Vol] 20 U/L Normal 16-63 [facility] Comment on above: Performed By: #### C MP, MG, PHOS, GGT #### [facility] [address] [place] [address] Dr. Yogi Naidu Anion gap [Moles/Vol] 9.6 mmol/L Normal [facility] Comment on above: Performed By: #### C MP, MG, PHOS, GGT #### [facility] [address] [place] [address] Dr. Yogi Naidu AST [Catalytic activity/Vol] 13 U/L Critically low 15-37 [facility] Comment on above: Performed By: #### C MP, MG, PHOS, GGT #### [facility] [address] [place] [address] Dr. Yogi Naidu Bilirubin [Mass/Vol] 0.7 mg/dL Normal 0.2-1.0 [facility] Comment on above: Performed By: #### C MP, MG, PHOS, GGT #### [facility] [address] [place] [address] Dr. Yogi Naidu Calcium [Mass/Vol] 9.0 mg/dL Normal 8.5-10.1 [facility] Comment on above: Performed By: #### C MP, MG, PHOS, GGT #### [facility] [address] [place] [address] Dr. Yogi Naidu Chloride [Moles/Vol] 108 mmol/L Critically high 98-107 [facility] Comment on above: Performed By: #### C MP, MG, PHOS, GGT #### [facility] [address] [place] [address] Dr. Yogi Naidu CO2 [Moles/Vol] 28.3 mmol/L Normal 21.0-32.0 [facility] Comment on above: Performed By: #### C MP, MG, PHOS, GGT #### [facility] [address] [place] [address] Dr. Yogi Naidu Creatinine [Mass/Vol] 1.17 mg/dL Normal 0.70-1.30 [facility] Comment on above: Performed By: #### C MP, MG, PHOS, GGT #### [facility] [address] [address] [address] Yogi Naidu EGFR-AF SWAZI >60 Normal >=60 [facility] Comment on above: Performed By: #### C MP, MG, PHOS, GGT #### [facility] [address] [address] [address] Yogi Naidu EGFR-NON AF SWAZI >60 Normal >=60 [facility] Comment on above: Performed By: #### C MP, MG, PHOS, GGT #### [facility] [address] [address] [address] Yogi Naidu Globulin (S) [Mass/Vol] 2.4 g/dL Normal T [facility] Comment on above: Performed By: #### C MP, MG, PHOS, GGT #### [facility] [address] [place] [address] Dr. Yogi Naidu Glucose [Mass/Vol] 102 mg/dL Normal 74-106 [facility] Comment on above: Performed By: #### C MP, MG, PHOS, GGT #### [facility] [address] [place] [address] Dr. Yogi Naidu Potassium [Moles/Vol] 4.9 mmol/L Normal 3.5-5.1 [facility] Comment on above: Performed By: #### C MP, MG, PHOS, GGT #### [facility] [address] [place] [address] Dr. Yogi Naidu Protein [Mass/Vol] 6.3 g/dL Critically low 6.4-8.2 [facility] Comment on above: Performed By: #### C MP, MG, PHOS, GGT #### [facility] [address] [place] [address] Dr. Yogi Naidu Sodium [Moles/Vol] 141 mmol/L Normal 136-145 [facility] Comment on above: Performed By: #### C MP, MG, PHOS, GGT #### [facility] [address] [place] [address] Dr. Yogi Naidu Urea nitrogen [Mass/Vol] 22.0 mg/dL Critically high 7.0-18 .0 [facility] Comment on above: Performed By: #### C MP, MG, PHOS, GGT #### [facility] [address] [place] [address] Dr. Yogi Naidu Urea nitrogen/Creatinine [Mass ratio] 18.8 mg/mg Normal [facility] Comment on above: Performed By: #### C MP, MG, PHOS, GGT #### [facility] [address] [place] [address] Dr. Yogi Naidu BOX TEST SENT OUTon 02-19-20 22 SENT TO REF LAB 02/18/2022 Normal [facility] Comment on above: Performed By: #### E DASH DE OLIVEIRARO #### [facility] [address] [place] [address] Dr. Yogi Naidu CBC W MANUAL DIFFon 02-19-20 ATYPICAL LYMPH # Normal [facility] Comment on above: Performed By: #### C MP, MG, PHOS, GGT #### [facility] [address] [place] [address] Dr. Yogi Naidu ATYPICAL LYMPH % Normal [facility] Comment on above: Performed By: #### C MP, MG, PHOS, GGT #### [facility] [address] [place] [address] Dr. Yogi Naidu BAND # Normal 0.0-0.3 [facility] Comment on above: Performed By: #### C MP, MG, PHOS, GGT #### [facility] [address] [place] [address] Dr. Yogi Naidu BAND % Normal 0-5 [facility] Comment on above: Performed By: #### C MP, MG, PHOS, GGT #### [facility] [address] [place] [address] Dr. Yogi Naidu BASOM # 0.00 103/ul Normal 0.00-0.10 [facility] Comment on above: Performed By: #### C MP, MG, PHOS, GGT #### [facility] [address] [place] [address] Dr. Yogi Naidu BASOM % 0.0 % Critically low 0.2-2.0 [facility] Comment on above: Performed By: #### C MP, MG, PHOS, GGT #### [facility] [address] [place] [address] Dr. Yogi Naidu BLAST # Normal [facility] Comment on above: Performed By: #### C MP, MG, PHOS, GGT #### [facility] [address] [address] [address] Yogi Naidu BLAST % Normal [facility] Comment on above: Performed By: #### C MP, MG, PHOS, GGT #### [facility] [address] [address] [address] Yogi Naidu CORRECTED WBC Normal 4.0-11.0 [facility] Comment on above: Performed By: #### C MP, MG, PHOS, GGT #### [facility] [address] [place] [address] Dr. Yogi Naidu EOS # 0.21 103/ul Normal 0.00-0.70 [facility] Comment on above: Performed By: #### C MP, MG, PHOS, GGT #### [facility] [address] [place] [address] Dr. Yogi Naidu EOS% 4.0 % Normal 0.9-7.0 [facility] Comment on above: Performed By: #### C MP, MG, PHOS, GGT #### [facility] [address] [place] [address] Dr. Yogi Naidu HCT 43.6 % Normal 42.0-54.0 [facility] Comment on above: Performed By: #### C MP, MG, PHOS, GGT #### [facility] [address] [place] [address] Dr. Yogi Naidu HGB 14.9 g/dl Normal 14.0-18.0 [facility] Comment on above: Performed By: #### C MP, MG, PHOS, GGT #### [facility] [address] [place] [address] Dr. Yogi Naidu LYMPHM # 0.62 103/ul Critically low 1.20-3.80 [facility] Comment on above: Performed By: #### C MP, MG, PHOS, GGT #### [facility] [address] [place] [address] Dr. Yogi Naidu LYMPHM% 12.0 % Critically low 20.5-60.0 [facility] Comment on above: Performed By: #### C MP, MG, PHOS, GGT #### [facility] [address] [place] [address] Dr. Yogi Naidu MCH 30.1 pg Normal 25.9-34.0 [facility] Comment on above: Performed By: #### C MP, MG, PHOS, GGT #### [facility] [address] [place] [address] Dr. Yogi Naidu MCHC 34.2 g/dl Normal 29.9-35.2 [facility] Comment on above: Performed By: #### C MP, MG, PHOS, GGT #### [facility] [address] [place] [address] Dr. Yogi Naidu MCV 88.1 fL Normal 80.0-94.0 [facility] Comment on above: Performed By: #### C MP, MG, PHOS, GGT #### [facility] [address] [place] [address] Dr. Yogi Naidu METAMYELOCYTE # Normal [facility] Comment on above: Performed By: #### C MP, MG, PHOS, GGT #### [facility] [address] [place] [address] Dr. Yogi Naidu METAMYELOCYTE % Normal [facility] Comment on above: Performed By: #### C MP, MG, PHOS, GGT #### [facility] [address] [place] [address] Dr. Yogi Naidu MONOM# 0.05 103/ul Critically low 0.30-0.80 [facility] Comment on above: Performed By: #### C MP, MG, PHOS, GGT #### [facility] [address] [place] [address] Dr. Yogi Naidu MONOM% 1.0 % Critically low 1.7-12.0 [facility] Comment on above: Performed By: #### C MP, MG, PHOS, GGT #### [facility] [address] [place] [address] Dr. Yogi Naidu MPV 9.2 fL Critically low 9.5-13.5 [facility] Comment on above: Performed By: #### C MP, MG, PHOS, GGT #### [facility] [address] [place] [address] Dr. Yogi Naidu MYELOCYTE # Normal [facility] Comment on above: Performed By: #### C MP, MG, PHOS, GGT #### [facility] [address] [place] [address] Dr. Yogi Naidu MYELOCYTE % Normal [facility] Comment on above: Performed By: #### C MP, MG, PHOS, GGT #### [facility] [address] [place] [address] Dr. Yogi Naidu NRBC Normal [facility] Comment on above: Performed By: #### C MP, MG, PHOS, GGT #### [facility] [address] [place] [address] Dr. Yogi Naidu PLT 143 103/ul Critically low 150-450 [facility] Comment on above: Performed By: #### C MP, MG, PHOS, GGT #### [facility] [address] [place] [address] Dr. Yogi Naidu RBC 4.95 106/ul Normal 4.70-6.10 [facility] Comment on above: Performed By: #### C MP, MG, PHOS, GGT #### [facility] [address] [place] [address] Dr. Yogi Naidu RDW 13.9 % Normal 11.0-15.0 [facility] Comment on above: Performed By: #### C MP, MG, PHOS, GGT #### [facility] [address] [place] [address] Dr. Yogi Naidu SEG # 4.32 103/ul Normal 1.40-6.50 [facility] Comment on above: Performed By: #### C MP, MG, PHOS, GGT #### [facility] [address] [place] [address] Dr. Yogi Naidu SEG % 83.0 % Critically high 43.0-75.0 [facility] Comment on above: Performed By: #### C MP, MG, PHOS, GGT #### [facility] [address] [place] [address] Dr. Yogi Naidu WBC 5.2 103/ul Normal 4.0-11.0 [facility] Comment on above: Performed By: #### C MP, MG, PHOS, GGT #### [facility] [address] [place] [address] Dr. Yogi Naidu GGTon 02-18-2022 Gamma glutamyl transferase [Catalytic activity/Vol] 38 U/L Normal 15-85 [facility] Comment on above: Performed By: #### C BC #### [facility] [address] [place] [address] Dr. Yogi Naidu MAGNESIUMon 02-18-2022 Magnesium [Mass/Vol] 1.8 mg/dL Normal 1.8-2.4 [facility] Comment on above: Performed By: #### C BC #### [facility] [address] [place] [address] Dr. Yogi Naidu PHOSPHORUSon 02-18-2022 Phosphate [Mass/Vol] 2.5 mg/dL Critically low 2.6-4.7 [facility] Comment on above: Performed By: #### C MP, MG, PHOS, GGT #### [facility] [address] [place] [address] Dr. Yogi Naidu PROF 14(COMP METB)on 022 Albumin [Mass/Vol] 3.8 g/dL Normal 3.4-5.0 [facility] Comment on above: Performed By: #### C MP, MG, PHOS, GGT #### [facility] [address] [place] [address] Dr. Yogi Naidu Albumin/Globulin [Mass ratio] 1.6 {ratio} Normal [facility] Comment on above: Performed By: #### C MP, MG, PHOS, GGT #### [facility] [address] [place] [address] Dr. Yogi Naidu ALP [Catalytic activity/Vol] 69 U/L Normal 46-116 [facility] Comment on above: Performed By: #### C MP, MG, PHOS, GGT #### [facility] [address] [place] [address] Dr. Yogi Naidu ALT [Catalytic activity/Vol] 17 U/L Normal 16-63 [facility] Comment on above: Performed By: #### C MP, MG, PHOS, GGT #### [facility] [address] [place] [address] Dr. Yogi Naidu Anion gap [Moles/Vol] 10.0 mmol/L Normal [facility] Comment on above: Performed By: #### C MP, MG, PHOS, GGT #### [facility] [address] [place] [address] Dr. Yogi Naidu AST [Catalytic activity/Vol] 15 U/L Normal 15-37 [facility] Comment on above: Performed By: #### C MP, MG, PHOS, GGT #### [facility] [address] [place] [address] Dr. Yogi Naidu Bilirubin [Mass/Vol] 0.7 mg/dL Normal 0.2-1.0 [facility] Comment on above: Performed By: #### C MP, MG, PHOS, GGT #### [facility] [address] [place] [address] Dr. Yogi Naidu Calcium [Mass/Vol] 8.3 mg/dL Critically low 8.5-10.1 [facility] Comment on above: Performed By: #### C MP, MG, PHOS, GGT #### [facility] [address] [place] [address] Dr. Yogi Naidu Chloride [Moles/Vol] 107 mmol/L Normal 98-107 [facility] Comment on above: Performed By: #### C MP, MG, PHOS, GGT #### [facility] [address] [place] [address] Dr. Yogi Naidu CO2 [Moles/Vol] 27.0 mmol/L Normal 21.0-32.0 [facility] Comment on above: Performed By: #### C MP, MG, PHOS, GGT #### [facility] [address] [place] [address] Dr. Yogi Naidu Creatinine [Mass/Vol] 1.29 mg/dL Normal 0.70-1.30 [facility] Comment on above: Performed By: #### C MP, MG, PHOS, GGT #### [facility] [address] [place] [address] Dr. Yogi Naidu EGFR-AF SWAZI >60 Normal >=60 [facility] Comment on above: Performed By: #### C MP, MG, PHOS, GGT #### [facility] [address] [place] [address] Dr. Yogi Naidu EGFR-NON AF SWAZI 55 mL/min/1.73m2 Critically low >=60 [facility] Comment on above: Performed By: #### C MP, MG, PHOS, GGT #### [facility] [address] [place] [address] Dr. Yogi Naidu Globulin (S) [Mass/Vol] 2.4 g/dL Normal [facility] Comment on above: Performed By: #### C MP, MG, PHOS, GGT #### [facility] [address] [place] [address] Dr. Yogi Naidu Glucose [Mass/Vol] 95 mg/dL Normal 74-106 [facility] Comment on above: Performed By: #### C MP, MG, PHOS, GGT #### [facility] [address] [place] [address] Dr. Yogi Naidu Potassium [Moles/Vol] 4.0 mmol/L Normal 3.5-5.1 [facility] Comment on above: Performed By: #### C MP, MG, PHOS, GGT #### [facility] [address] [place] [address] Dr. Yogi Naidu Protein [Mass/Vol] 6.2 g/dL Critically low 6.4-8.2 [facility] Comment on above: Performed By: #### C MP, MG, PHOS, GGT #### [facility] [address] [place] [address] Dr. Yogi Naidu Sodium [Moles/Vol] 140 mmol/L Normal 136-145 [facility] Comment on above: Performed By: #### C MP, MG, PHOS, GGT #### [facility] [address] [place] [address] Dr. Yogi Naidu Urea nitrogen [Mass/Vol] 26.0 mg/dL Critically high 7.0-18 .0 [facility] Comment on above: Performed By: #### C MP, MG, PHOS, GGT #### [facility] [address] [place] [address] Dr. Yogi Naidu Urea nitrogen/Creatinine [Mass ratio] 20.2 mg/mg Normal [facility] Comment on above: Performed By: #### C MP, MG, PHOS, GGT #### [facility] [address] [place] [address] Dr. Yogi Naidu US PROSTATEon 01-22-2022 US [...] SUSAN POPE Date: 2022-01-22 16:08 Normal [facility] Covid-19 PCR (CVDTBH)on SARS-CoV-2 (COVID-19) RNA LUZ MARIA+probe Ql (Unsp spec) Not detected Normal NOT DETECTED [facility] Comment on above: Result Comment: This test is not yet approved or cleared by the [place] FDA. When there are no FDA-approved or cleared tests available, and other criteria are met, FDA can make tests available under an emergency access mechanism called an Emergency Use Authorization (EUA). The EUA for this test is supported by the [employer] of Health and Human Service's (HHS's) declaration [...] By: #### E MERLE DE OLIVEIRA #### [facility] [address] [place] [address] Dr. Yogi Naidu HEP C RNA BY PCR QUANT (NON- GRAPHICAL) Won 01-14-2022 HCV Genotype RTNI Normal [facility] Comment on above: Result Comment: Not indicated Performed By: #### C MP, MG, PHOS, GGT #### [facility] [address] [place] [address] Dr. Yogi Naidu HCV log10 UPTCAL Normal [facility] Comment on above: Result Comment: Unab le to calculate result since non-numeric result obtained for component test. Performed By: #### C MP, MG, PHOS, GGT #### [facility] [address] [place] [address] Dr. Yogi Naidu Hepatitis C Quantitation Not detected Normal [facility] Comment on above: Performed By: #### C MP, MG, PHOS, GGT #### [facility] [address] [place] [address] Dr. Yogi Naidu Test Information: Comment Normal [facility] Comment on above: Result Comment: The quantitative range of this assay is 15 IU/mL to 100 million IU/mL. Performed By: #### C MP, MG, PHOS, GGT #### [facility] [address] [place] [address] Dr. Yogi Naidu BOX TEST SENT OUTon 01-14-20 22 SENT TO REF LAB 01/13/2022 Normal [facility] Comment on above: Performed By: #### B OX #### [facility] [address] [address] [address] Yogi Naidu CBC W MANUAL DIFFon 01-14-20 22 ANISOCYTOSIS SLIGHT Normal [facility] Comment on above: Performed By: #### C MP, MG, PHOS, GGT #### [facility] [address] [place] [address] Dr. Yogi Naidu ATYPICAL LYMPH # Normal [facility] Comment on above: Performed By: #### C MP, MG, PHOS, GGT #### [facility] [address] [place] [address] Dr. Yogi Naidu ATYPICAL LYMPH % Normal [facility] Comment on above: Performed By: #### C MP, MG, PHOS, GGT #### [facility] [address] [place] [address] Dr. oYgi Naidu BAND # Normal 0.0-0.3 [facility] Comment on above: Performed By: #### C MP, MG, PHOS, GGT #### [facility] [address] [place] [address] Dr. Yogi Naidu BAND % Normal 0-5 [facility] Comment on above: Performed By: #### C MP, MG, PHOS, GGT #### [facility] [address] [place] [address] Dr. Yogi Naidu BASOM # 0.00 103/ul Normal 0.00-0.10 [facility] Comment on above: Performed By: #### C MP, MG, PHOS, GGT #### [facility] [address] [place] [address] Dr. Yogi Naidu BASOM % 0.0 % Critically low 0.2-2.0 [facility] Comment on above: Performed By: #### C MP, MG, PHOS, GGT #### [facility] [address] [place] [address] Dr. Yogi Naidu BLAST # Normal [facility] Comment on above: Performed By: #### C MP, MG, PHOS, GGT #### [facility] [address] [place] [address] Dr. Yogi Naidu BLAST % Normal [facility] Comment on above: Performed By: #### C MP, MG, PHOS, GGT #### [facility] [address] [address] [address] Yogi aNidu CORRECTED WBC Normal 4.0-11.0 [facility] Comment on above: Performed By: #### C MP, MG, PHOS, GGT #### [facility] [address] [address] [address] Yogi Naidu EOS # 0.10 103/ul Normal 0.00-0.70 [facility] Comment on above: Performed By: #### C MP, MG, PHOS, GGT #### [facility] [address] [place] [address] Dr. Yogi Naidu EOS% 2.0 % Normal 0.9-7.0 [facility] Comment on above: Performed By: #### C MP, MG, PHOS, GGT #### [facility] [address] [place] [address] Dr. Yogi Naidu HCT 42.9 % Normal 42.0-54.0 [facility] Comment on above: Performed By: #### C MP, MG, PHOS, GGT #### [facility] [address] [place] [address] Dr. Yogi Naidu HGB 14.6 g/dl Normal 14.0-18.0 [facility] Comment on above: Performed By: #### C MP, MG, PHOS, GGT #### [facility] [address] [place] [address] Dr. Yogi Naidu LYMPHM # 0.56 103/ul Critically low 1.20-3.80 [facility] Comment on above: Performed By: #### C MP, MG, PHOS, GGT #### [facility] [address] [place] [address] Dr. Yogi Naidu LYMPHM% 11.0 % Critically low 20.5-60.0 [facility] Comment on above: Performed By: #### C MP, MG, PHOS, GGT #### [facility] [address] [address] [address] Yogi Naidu MCH 30.8 pg Normal 25.9-34.0 [facility] Comment on above: Performed By: #### C MP, MG, PHOS, GGT #### [facility] [address] [address] [address] Yogi Naidu MCHC 34.0 g/dl Normal 29.9-35.2 [facility] Comment on above: Performed By: #### C MP, MG, PHOS, GGT #### [facility] [address] [address] [address] Yogi Naidu MCV 90.5 fL Normal 80.0-94.0 [facility] Comment on above: Performed By: #### C MP, MG, PHOS, GGT #### [facility] [address] [place] [address] Dr. Yogi Naidu METAMYELOCYTE # Normal [facility] Comment on above: Performed By: #### C MP, MG, PHOS, GGT #### [facility] [address] [place] [address] Dr. Yogi Naidu METAMYELOCYTE % Normal [facility] Comment on above: Performed By: #### C MP, MG, PHOS, GGT #### [facility] [address] [place] [address] Dr. Yogi Naidu MONOM# 0.26 103/ul Critically low 0.30-0.80 [facility] Comment on above: Performed By: #### C MP, MG, PHOS, GGT #### [facility] [address] [place] [address] Dr. Yogi Naidu MONOM% 5.0 % Normal 1.7-12.0 [facility] Comment on above: Performed By: #### C MP, MG, PHOS, GGT #### [facility] [address] [address] [address] Yogi Naidu MPV 9.8 fL Normal 9.5-13.5 [facility] Comment on above: Performed By: #### C MP, MG, PHOS, GGT #### [facility] [address] [place] [address] Dr. Yogi Naidu MYELOCYTE # Normal [facility] Comment on above: Performed By: #### C MP, MG, PHOS, GGT #### [facility] [address] [place] [address] Dr. Yogi Naidu MYELOCYTE % Normal [facility] Comment on above: Performed By: #### C MP, MG, PHOS, GGT #### [facility] [address] [place] [address] Dr. Yogi Naidu NRBC Normal [facility] Comment on above: Performed By: #### C MP, MG, PHOS, GGT #### [facility] [address] [place] [address] Dr. Yogi Naidu PLT 172 103/ul Normal 150-450 [facility] Comment on above: Performed By: #### C MP, MG, PHOS, GGT #### [facility] [address] [place] [address] Dr. Yogi Naidu POIKILOCYTOSIS 1+ Normal [facility] Comment on above: Performed By: #### C MP, MG, PHOS, GGT #### [facility] [address] [place] [address] Dr. Yogi Naidu RBC 4.74 106/ul Normal 4.70-6.10 [facility] Comment on above: Performed By: #### C MP, MG, PHOS, GGT #### [facility] [address] [place] [address] Dr. Yogi Naidu RDW 13.9 % Normal 11.0-15.0 [facility] Comment on above: Performed By: #### C MP, MG, PHOS, GGT #### [facility] [address] [place] [address] Dr. Yogi Naidu SEG # 4.18 103/ul Normal 1.40-6.50 [facility] Comment on above: Performed By: #### C MP, MG, PHOS, GGT #### [facility] [address] [place] [address] Dr. Yogi Naidu SEG % 82.0 % Critically high 43.0-75.0 [facility] Comment on above: Performed By: #### C MP, MG, PHOS, GGT #### [facility] [address] [place] [address] Dr. Yogi Naidu TEAR DROP CELLS 1+ Normal [facility] Comment on above: Performed By: #### C MP, MG, PHOS, GGT #### [facility] [address] [place] [address] Dr. Yogi Naidu WBC 5.1 103/ul Normal 4.0-11.0 [facility] Comment on above: Performed By: #### C MP, MG, PHOS, GGT #### [facility] [address] [place] [address] Dr. Yogi Naidu GGTon 01-13-2022 Gamma glutamyl transferase [Catalytic activity/Vol] 35 U/L Normal 15-85 [facility] Comment on above: Performed By: #### B OX #### [facility] [address] [place] [address] Dr. Yogi Naidu LIPID PROFILEon 01-13-2022 CHOL-HDL RATIO NORM SEE BELOW Normal [facility] Comment on above: Result Comment: 3.3 - 4.4 LOW RISK 4.4 - 7.1 AVERAGE RISK 7.1 - 11.0 MODERATE RISK >11.0 HIGH RISK Performed By: #### B OX #### [facility] [address] [place] [address] Dr. Yogi Naidu Cholesterol [Mass/Vol] 183 mg/dL Normal <=200 [facility] Comment on above: Performed By: #### B OX #### [facility] [address] [place] [address] Dr. Yogi Naidu Cholesterol in HDL [Mass/Vol] 45 mg/dL Normal 40-60 [facility] Comment on above: Performed By: #### B OX #### [facility] [address] [place] [address] Dr. Yogi Naidu Cholesterol in LDL [Mass/Vol] 127.2 mg/dL Normal [facility] Comment on above: Performed By: #### B OX #### [facility] [address] [address] [address] Yogi Naidu Cholesterol.total/Choles terol in HDL [Mass ratio] 4.1 {ratio} Normal [facility] Comment on above: Performed By: #### B OX #### [facility] [address] [address] [address] Yogi Naidu HDL NORMAL > or = 60 mg/dl - LO W CARDIOVASCULAR RISK <40 mg/dl - HIGH CARDIOVASCULAR RISK Normal [facility] Comment on above: Performed By: #### B OX #### [facility] [address] [address] [address] Yogi Naidu LDL CALC NORMAL SEE BELOW Normal [facility] Comment on above: Result Comment: <100 mg/dl OPTIMAL 100 - 129 mg/dl NEAR OR ABOVE OPTIMAL 130 - 159 mg/dl BORDERLINE HIGH 160 - 189 mg/dl HIGH >190 mg/dl VERY HIGH Performed By: #### B OX #### [facility] [address] [place] [address] Dr. Yogi Naidu Triglyceride [Mass/Vol] 54 mg/dL Normal <=150 T [facility] Comment on above: Performed By: #### B OX #### [facility] [address] [place] [address] Dr. Yogi Naidu VLDL CALC 10.8 mg/dL Normal [facility] Comment on above: Performed By: #### B OX #### [facility] [address] [place] [address] Dr. Yogi Naidu MAGNESIUMon 01-13-2022 Magnesium [Mass/Vol] 1.7 mg/dL Critically low 1.8-2.4 [facility] Comment on above: Performed By: #### B OX #### [facility] [address] [place] [address] Dr. Yogi Naidu PHOSPHORUSon 01-13-2022 Phosphate [Mass/Vol] 2.8 mg/dL Normal 2.6-4.7 [facility] Comment on above: Performed By: #### B OX #### [facility] [address] [place] [address] Dr. Yogi Naidu PROF 14(COMP METB)on 022 Albumin [Mass/Vol] 3.9 g/dL Normal 3.4-5.0 [facility] Comment on above: Performed By: #### B OX #### [facility] [address] [place] [address] Dr. Yogi Naidu Albumin/Globulin [Mass ratio] 1.7 {ratio} Normal [facility] Comment on above: Performed By: #### B OX #### [facility] [address] [place] [address] Dr. Yogi Naidu ALP [Catalytic activity/Vol] 68 U/L Normal 46-116 [facility] Comment on above: Performed By: #### B OX #### [facility] [address] [place] [address] Dr. Yogi Naidu ALT [Catalytic activity/Vol] 14 U/L Critically low 16-63 [facility] Comment on above: Performed By: #### B OX #### [facility] [address] [place] [address] Dr. Yogi Naidu Anion gap [Moles/Vol] 11.9 mmol/L Normal [facility] Comment on above: Performed By: #### B OX #### [facility] [address] [place] [address] Dr. Yogi Naidu AST [Catalytic activity/Vol] 13 U/L Critically low 15-37 [facility] Comment on above: Performed By: #### B OX #### [facility] [address] [place] [address] Dr. Yogi Naidu Bilirubin [Mass/Vol] 0.5 mg/dL Normal 0.2-1.0 [facility] Comment on above: Performed By: #### B OX #### [facility] [address] [place] [address] Dr. Yogi Naidu Calcium [Mass/Vol] 8.7 mg/dL Normal 8.5-10.1 [facility] Comment on above: Performed By: #### B OX #### [facility] [address] [place] [address] Dr. Yogi Naidu Chloride [Moles/Vol] 110 mmol/L Critically high 98-107 [facility] Comment on above: Performed By: #### B OX #### [facility] [address] [place] [address] Dr. Yogi Naidu CO2 [Moles/Vol] 26.3 mmol/L Normal 21.0-32.0 [facility] Comment on above: Performed By: #### B OX #### [facility] [address] [address] [address] Yogi Naidu Creatinine [Mass/Vol] 1.24 mg/dL Normal 0.70-1.30 [facility] Comment on above: Performed By: #### B OX #### [facility] [address] [place] [address] Dr. Yogi Naidu EGFR-AF SWAZI >60 Normal >=60 [facility] Comment on above: Performed By: #### B OX #### [facility] [address] [place] [address] Dr. Yogi Naidu EGFR-NON AF SWAZI 58 mL/min/1.73m2 Critically low >=60 [facility] Comment on above: Performed By: #### B OX #### [facility] Laboratory [address] [place] [address] Dr. Yogi Naidu Globulin (S) [Mass/Vol] 2.3 g/dL Normal T [facility] Comment on above: Performed By: #### B OX #### [facility] [address] [place] [address] Dr. Yogi Naidu Glucose [Mass/Vol] 103 mg/dL Normal 74-106 [facility] Comment on above: Performed By: #### B OX #### [facility] [address] [place] [address] Dr. Yogi Naidu Potassium [Moles/Vol] 4.2 mmol/L Normal 3.5-5.1 [facility] Comment on above: Performed By: #### B OX #### [facility] [address] [place] [address] Dr. Yogi Naidu Protein [Mass/Vol] 6.2 g/dL Critically low 6.4-8.2 [facility] Comment on above: Performed By: #### B OX #### [facility] [address] [address] [address] Yogi Naidu Sodium [Moles/Vol] 144 mmol/L Normal 136-145 [facility] Comment on above: Performed By: #### B OX #### [facility] [address] [place] [address] Dr. Yogi Naidu Urea nitrogen [Mass/Vol] 26.0 mg/dL Critically high 7.0-18 .0 [facility] Comment on above: Performed By: #### B OX #### [facility] [address] [place] [address] Dr. Yogi Naidu Urea nitrogen/Creatinine [Mass ratio] 21.0 mg/mg Normal [facility] Comment on above: Performed By: #### B OX #### [facility] [address] [place] [address] Dr. Yogi Naidu PROTIMEon 01-13-2022 INR Coag (PPP) [Relative time] 1.06 {INR} Normal [facility] Comment on above: Performed By: #### C MP, MG, PHOS, GGT #### [facility] [address] [place] [address] Dr. Yogi Naidu INR GUIDELINES SEE BELOW Normal [facility] Comment on above: Result Comment: LENI RED INR: 2.0 - 3.0 CONDITIONS NOT LISTED BELOW 2.5 - 3.5 FOR PROSTHETIC HEART VALVE REPLACEMENT 2.5 - 3.5 RECURRENT THROMBOSIS Performed By: #### C MP, MG, PHOS, GGT #### [facility] [address] [place] [address] Dr. Yogi Naidu PT Coag (PPP) [Time] 11.4 s Normal 9.0-11.6 [facility] Comment on above: Performed By: #### C MP, MG, PHOS, GGT #### [facility] [address] [place] [address] Dr. Yogi Naidu PTTon 01-13-2022 aPTT Coag (Bld) [Time] 28.7 s Normal 22.3-36.2 Th e [facility] Comment on above: Performed By: #### C MP, MG, PHOS, GGT #### [facility] [address] [place] [address] Dr. Yogi Naidu BOX TEST SENT OUTon 12-18-19 22 SENT TO REF LAB 12/17/2021 Normal [facility] Comment on above: Performed By: #### C MP, MG, PHOS, GGT #### [facility] [address] [place] [address] Dr. Yogi Naidu CBC AUTO DIFFon 12-17-2021 BASO # 0.1 103/ul Normal 0.0-0.1 [facility] Comment on above: Performed By: #### C BC #### [facility] [address] [place] [address] Dr. Yogi Naidu Basophils/100 WBC (Bld) 1.1 % Normal 0.2-2.0 [facility] Comment on above: Performed By: #### C BC #### [facility] [address] [place] [address] Dr. Yogi Naidu EO # 0.2 103/ul Normal 0.0-0.7 [facility] Comment on above: Performed By: #### C BC #### [facility] [address] [place] [address] Dr. Yogi Naidu Eosinophils/100 WBC (Bld) 4.1 % Normal 0.9-7.0 [facility] Comment on above: Performed By: #### C BC #### [facility] [address] [place] [address] Dr. Yogi Naidu Erythrocyte distribution width (RBC) [Ratio] 13.7 % Normal 11.0-15.0 [facility] Comment on above: Performed By: #### C BC #### [facility] [address] [place] [address] Dr. Yogi Naidu Hematocrit (Bld) [Volume fraction] 45.6 % Normal 42.0-54.0 [facility] Comment on above: Performed By: #### C BC #### [facility] [address] [place] [address] Dr. Yogi Naidu Hemoglobin (Bld) [Mass/Vol] 15.1 g/dL Normal 14.0-18.0 [facility] Comment on above: Performed By: #### C BC #### [facility] [address] [place] [address] Dr. Yogi Naidu IG # 0.01 10e3/ul Normal 0.00-0.03 [facility] Comment on above: Performed By: #### C BC #### [facility] [address] [place] [address] Dr. Yogi Naidu IG % 0.2 % Normal 0.0-0.5 [facility] Comment on above: Performed By: #### C BC #### [facility] [address] [place] [address] Dr. Yogi Naidu LYMPH # 0.7 103/ul Critically low 1.2-3.8 [facility] Comment on above: Performed By: #### C BC #### [facility] [address] [place] [address] Dr. Yogi Naidu Lymphocytes/100 WBC (Bld) 12.4 % Critically low 20.5-60.0 [facility] Comment on above: Performed By: #### C BC #### [facility] [address] [place] [address] Dr. Yogi Naidu MANUAL DIFF REQ NO Normal [facility] Comment on above: Performed By: #### C BC #### [facility] [address] [place] [address] Dr. Yogi Naidu MCH (RBC) [Entitic mass] 30.1 pg Normal 25.9-34.0 [facility] Comment on above: Performed By: #### C BC #### [facility] [address] [place] [address] Dr. Yogi Naidu MCHC (RBC) [Mass/Vol] 33.1 g/dL Normal 29.9-35.2 [facility] Comment on above: Performed By: #### C BC #### [facility] [address] [place] [address] Dr. Yogi Naidu MCV (RBC) [Entitic vol] 90.8 fL Normal 80.0-94.0 [facility] Comment on above: Performed By: #### C BC #### [facility] [address] [place] [address] Dr. Yogi Naidu MONO # 0.3 103/ul Normal 0.3-0.8 [facility] Comment on above: Performed By: #### C BC #### [facility] [address] [place] [address] Dr. Yogi Naidu Monocytes/100 WBC (Bld) 5.5 % Normal 1.7-12.0 [facility] Comment on above: Performed By: #### C BC #### [facility] [address] [place] [address] Dr. Yogi Naidu NEUT # 4.4 103/ul Normal 1.4-6.5 [facility] Comment on above: Performed By: #### C BC #### [facility] [address] [place] [address] Dr. Yogi Naidu Neutrophils/100 WBC (Bld) 76.7 % Critically high 43.0-75.0 [facility] Comment on above: Performed By: #### C BC #### [facility] [address] [place] [address] Dr. Yogi Naidu Platelet mean volume (Bld) [Entitic vol] 9.5 fL Normal 9.5-13.5 [facility] Comment on above: Performed By: #### C BC #### [facility] [address] [place] [address] Dr. Yogi Naidu PLT 157 103/ul Normal 150-450 [facility] Comment on above: Performed By: #### C BC #### [facility] [address] [place] [address] Dr. Yogi Naidu RBC 5.02 106/ul Normal 4.70-6.10 [facility] Comment on above: Performed By: #### C BC #### [facility] [address] [place] [address] Dr. Yogi Naidu WBC 5.7 103/ul Normal 4.0-11.0 [facility] Comment on above: Performed By: #### C BC #### [facility] [address] [place] [address] Dr. Yogi Naidu GGTon 12-17-2021 Gamma glutamyl transferase [Catalytic activity/Vol] 35 U/L Normal 15-85 [facility] Comment on above: Performed By: #### C MP, MG, PHOS, GGT #### [facility] [address] [place] [address] Dr. Yogi Naidu MAGNESIUMon 12-17-2021 Magnesium [Mass/Vol] 1.6 mg/dL Critically low 1.8-2.4 [facility] Comment on above: Performed By: #### C MP, MG, PHOS, GGT #### [facility] [address] [place] [address] Dr. Yogi Naidu PHOSPHORUSon 12-17-2021 Phosphate [Mass/Vol] 2.9 mg/dL Normal 2.6-4.7 [facility] Comment on above: Performed By: #### C MP, MG, PHOS, GGT #### [facility] [address] [place] [address] Dr. Yogi Naidu PROF 14(COMP METB)on 022 Albumin [Mass/Vol] 3.8 g/dL Normal 3.4-5.0 [facility] Comment on above: Performed By: #### C MP, MG, PHOS, GGT #### [facility] [address] [place] [address] Dr. Yogi Naidu Albumin/Globulin [Mass ratio] 1.6 {ratio} Normal [facility] Comment on above: Performed By: #### C MP, MG, PHOS, GGT #### [facility] [address] [place] [address] Dr. Yogi Naidu ALP [Catalytic activity/Vol] 74 U/L Normal 46-116 [facility] Comment on above: Performed By: #### C MP, MG, PHOS, GGT #### [facility] [address] [place] [address] Dr. Yogi Naidu ALT [Catalytic activity/Vol] 21 U/L Normal 16-63 [facility] Comment on above: Performed By: #### C MP, MG, PHOS, GGT #### [facility] [address] [place] [address] Dr. Yogi Naidu Anion gap [Moles/Vol] 13.2 mmol/L Normal Th [facility] Comment on above: Performed By: #### C MP, MG, PHOS, GGT #### [facility] [address] [address] [address] Yogi Naidu AST [Catalytic activity/Vol] 14 U/L Critically low 15-37 [facility] Comment on above: Performed By: #### C MP, MG, PHOS, GGT #### [facility] [address] [place] [address] Dr. Yogi Naidu Bilirubin [Mass/Vol] 0.6 mg/dL Normal 0.2-1.0 [facility] Comment on above: Performed By: #### C MP, MG, PHOS, GGT #### [facility] [address] [place] [address] Dr. Yogi Naidu Calcium [Mass/Vol] 8.5 mg/dL Normal 8.5-10.1 [facility] Comment on above: Performed By: #### C MP, MG, PHOS, GGT #### [facility] [address] [place] [address] Dr. Yogi Naidu Chloride [Moles/Vol] 109 mmol/L Critically high 98-107 [facility] Comment on above: Performed By: #### C MP, MG, PHOS, GGT #### [facility] [address] [place] [address] Dr. Yogi Naidu CO2 [Moles/Vol] 24.9 mmol/L Normal 21.0-32.0 [facility] Comment on above: Performed By: #### C MP, MG, PHOS, GGT #### [facility] [address] [place] [address] Dr. Yogi Naidu Creatinine [Mass/Vol] 1.22 mg/dL Normal 0.70-1.30 [facility] Comment on above: Performed By: #### C MP, MG, PHOS, GGT #### [facility] [address] [place] [address] Dr. Yogi Naidu EGFR-AF SWAZI >60 Normal >=60 [facility] Comment on above: Performed By: #### C MP, MG, PHOS, GGT #### [facility] [address] [place] [address] Dr. Yogi Naidu EGFR-NON AF SWAZI 59 mL/min/1.73m2 Critically low >=60 [facility] Comment on above: Performed By: #### C MP, MG, PHOS, GGT #### [facility] [address] [place] [address] Dr. Yogi Naidu Globulin (S) [Mass/Vol] 2.4 g/dL Normal T [facility] Comment on above: Performed By: #### C MP, MG, PHOS, GGT #### [facility] [address] [place] [address] Dr. Yogi Naidu Glucose [Mass/Vol] 94 mg/dL Normal 74-106 [facility] Comment on above: Performed By: #### C MP, MG, PHOS, GGT #### [facility] [address] [place] [address] Dr. Yogi Naidu Potassium [Moles/Vol] 4.1 mmol/L Normal 3.5-5.1 [facility] Comment on above: Performed By: #### C MP, MG, PHOS, GGT #### [facility] [address] [place] [address] Dr. Yogi Naidu Protein [Mass/Vol] 6.2 g/dL Critically low 6.4-8.2 [facility] Comment on above: Performed By: #### C MP, MG, PHOS, GGT #### [facility] [address] [place] [address] Dr. Yogi Naidu Sodium [Moles/Vol] 143 mmol/L Normal 136-145 [facility] Comment on above: Performed By: #### C MP, MG, PHOS, GGT #### [facility] [address] [place], [place] [id number] Dr. Yogi Naidu Urea nitrogen [Mass/Vol] 21.0 mg/dL Critically high 7.0-18 .0 [facility] Comment on above: Performed By: #### C MP, MG, PHOS, GGT #### [facility] [address] [place] [address] Dr. Yogi Naidu Urea nitrogen/Creatinine [Mass ratio] 17.2 mg/mg Normal [facility] Comment on above: Performed By: #### C MP, MG, PHOS, GGT #### [facility] [address] [place] [address] Dr. Yogi Naidu BOX TEST SENT OUTon 11-22-19 22 SENT TO REF LAB 11/21/2021 Normal [facility] Comment on above: Performed By: #### C MP, MG, PHOS, GGT #### [facility] [address] [place] [address] Dr. Yogi Naidu CBC W MANUAL DIFFon 11-22-19 22 ATYPICAL LYMPH # Normal [facility] Comment on above: Performed By: #### C MP, MG, PHOS, GGT #### [facility] [address] [place] [address] Dr. Yogi Naidu ATYPICAL LYMPH % Normal [facility] Comment on above: Performed By: #### C MP, MG, PHOS, GGT #### [facility] [address] [place] [address] Dr. Yogi Naidu BAND # 0.1 103/ul Normal 0.0-0.3 [facility] Comment on above: Performed By: #### C MP, MG, PHOS, GGT #### [facility] [address] [place] [address] Dr. Yogi Naidu BAND % 2 % Normal 0-5 [facility] Comment on above: Performed By: #### C MP, MG, PHOS, GGT #### [facility] [address] [place] [address] Dr. Yogi Naidu BASOM # 0.00 103/ul Normal 0.00-0.10 [facility] Comment on above: Performed By: #### C MP, MG, PHOS, GGT #### [facility] [address] [place] [address] Dr. Yogi Naidu BASOM % 0.0 % Critically low 0.2-2.0 [facility] Comment on above: Performed By: #### C MP, MG, PHOS, GGT #### [facility] [address] [place] [address] Dr. Yogi Naidu BLAST # Normal [facility] Comment on above: Performed By: #### C MP, MG, PHOS, GGT #### [facility] [address] [place] [address] Dr. Yogi Naidu BLAST % Normal [facility] Comment on above: Performed By: #### C MP, MG, PHOS, GGT #### [facility] [address] [place] [address] Dr. Yogi Naidu CORRECTED WBC Normal 4.0-11.0 [facility] Comment on above: Performed By: #### C MP, MG, PHOS, GGT #### [facility] [address] [place] [address] Dr. Yogi Naidu EOS # 0.19 103/ul Normal 0.00-0.70 [facility] Comment on above: Performed By: #### C MP, MG, PHOS, GGT #### [facility] [address] [place] [address] Dr. Yogi Naidu EOS% 3.0 % Normal 0.9-7.0 [facility] Comment on above: Performed By: #### C MP, MG, PHOS, GGT #### [facility] [address] [place] [address] Dr. Yogi Naidu HCT 46.5 % Normal 42.0-54.0 [facility] Comment on above: Performed By: #### C MP, MG, PHOS, GGT #### [facility] [address] [place] [address] Dr. Yogi Naidu HGB 15.5 g/dl Normal 14.0-18.0 [facility] Comment on above: Performed By: #### C MP, MG, PHOS, GGT #### [facility] [address] [address] [address] Yogi Naidu LYMPHM # 0.50 103/ul Critically low 1.20-3.80 [facility] Comment on above: Performed By: #### C MP, MG, PHOS, GGT #### [facility] [address] [place] [address] Dr. Yogi Naidu LYMPHM% 8.0 % Critically low 20.5-60.0 [facility] Comment on above: Performed By: #### C MP, MG, PHOS, GGT #### [facility] [address] [place] [address] Dr. Yogi Naidu MCH 30.2 pg Normal 25.9-34.0 [facility] Comment on above: Performed By: #### C MP, MG, PHOS, GGT #### [facility] [address] [place] [address] Dr. Yogi Naidu MCHC 33.3 g/dl Normal 29.9-35.2 [facility] Comment on above: Performed By: #### C MP, MG, PHOS, GGT #### [facility] [address] [place] [address] Dr. Yogi Naidu MCV 90.5 fL Normal 80.0-94.0 [facility] Comment on above: Performed By: #### C MP, MG, PHOS, GGT #### [facility] [address] [place] [address] Dr. Yogi Naidu METAMYELOCYTE # Normal [facility] Comment on above: Performed By: #### C MP, MG, PHOS, GGT #### [facility] [address] [place] [address] Dr. Yogi Naidu METAMYELOCYTE % Normal [facility] Comment on above: Performed By: #### C MP, MG, PHOS, GGT #### [facility] [address] [place] [address] Dr. Yogi Naidu MONOM# 0.06 103/ul Critically low 0.30-0.80 [facility] Comment on above: Performed By: #### C MP, MG, PHOS, GGT #### [facility] [address] [place] [address] Dr. Yogi Naidu MONOM% 1.0 % Critically low 1.7-12.0 [facility] Comment on above: Performed By: #### C MP, MG, PHOS, GGT #### [facility] [address] [place] [address] Dr. Yogi Naidu MPV 9.6 fL Normal 9.5-13.5 [facility] Comment on above: Performed By: #### C MP, MG, PHOS, GGT #### [facility] [address] [place] [address] Dr. Yogi Naidu MYELOCYTE # Normal [facility] Comment on above: Performed By: #### C MP, MG, PHOS, GGT #### [facility] [address] [place] [address] Dr. Yogi Naidu MYELOCYTE % Normal [facility] Comment on above: Performed By: #### C MP, MG, PHOS, GGT #### [facility] [address] [place] [address] Dr. Yogi Naidu NRBC Normal [facility] Comment on above: Performed By: #### C MP, MG, PHOS, GGT #### [facility] [address] [place] [address] Dr. Yogi Naidu PLT 185 103/ul Normal 150-450 [facility] Comment on above: Performed By: #### C MP, MG, PHOS, GGT #### [facility] [address] [place] [address] Dr. Yogi Naidu RBC 5.14 106/ul Normal 4.70-6.10 [facility] Comment on above: Performed By: #### C MP, MG, PHOS, GGT #### [facility] [address] [place] [address] Dr. Yogi Naidu RDW 14.0 % Normal 11.0-15.0 [facility] Comment on above: Performed By: #### C MP, MG, PHOS, GGT #### [facility] [address] [place] [address] Dr. Yogi Naidu SEG # 5.33 103/ul Normal 1.40-6.50 [facility] Comment on above: Performed By: #### C MP, MG, PHOS, GGT #### [facility] [address] [place] [address] Dr. Yogi Naidu SEG % 86.0 % Critically high 43.0-75.0 [facility] Comment on above: Performed By: #### C MP, MG, PHOS, GGT #### [facility] [address] [place] [address] Dr. Yogi Naidu WBC 6.2 103/ul Normal 4.0-11.0 [facility] Comment on above: Performed By: #### C MP, MG, PHOS, GGT #### [facility] [address] [place] [address] Dr. Yogi Naidu GGTon 11-21-2021 Gamma glutamyl transferase [Catalytic activity/Vol] 35 U/L Normal 15-85 [facility] Comment on above: Performed By: #### C MP, MG, PHOS, GGT #### [facility] [address] [place] [address] Dr. Yogi Naidu MAGNESIUMon 11-21-2021 Magnesium [Mass/Vol] 1.9 mg/dL Normal 1.8-2.4 [facility] Comment on above: Performed By: #### C MP, MG, PHOS, GGT #### [facility] [address] [place] [address] Dr. Yogi Naidu PHOSPHORUSon 11-21-2021 Phosphate [Mass/Vol] 3.0 mg/dL Normal 2.6-4.7 [facility] Comment on above: Performed By: #### C MP, MG, PHOS, GGT #### [facility] [address] [place] [address] Dr. Yogi Naidu PROF 14(COMP METB)on 022 Albumin [Mass/Vol] 3.8 g/dL Normal 3.4-5.0 [facility] Comment on above: Performed By: #### C MP, MG, PHOS, GGT #### [facility] [address] [address] [address] Yogi Naidu Albumin/Globulin [Mass ratio] 1.7 {ratio} Normal [facility] Comment on above: Performed By: #### C MP, MG, PHOS, GGT #### [facility] [address] [address] [address] Yogi Naidu ALP [Catalytic activity/Vol] 80 U/L Normal 46-116 [facility] Comment on above: Performed By: #### C MP, MG, PHOS, GGT #### [facility] [address] [place] [address] Dr. Yogi Naidu ALT [Catalytic activity/Vol] 21 U/L Normal 16-63 [facility] Comment on above: Performed By: #### C MP, MG, PHOS, GGT #### [facility] [address] [place] [address] Dr. Yogi Naidu Anion gap [Moles/Vol] 13.7 mmol/L Normal [facility] Comment on above: Performed By: #### C MP, MG, PHOS, GGT #### [facility] [address] [place] [address] Dr. Yogi aNidu AST [Catalytic activity/Vol] 15 U/L Normal 15-37 [facility] Comment on above: Performed By: #### C MP, MG, PHOS, GGT #### [facility] [address] [place] [address] Dr. Yogi Naidu Bilirubin [Mass/Vol] 0.6 mg/dL Normal 0.2-1.0 [facility] Comment on above: Performed By: #### C MP, MG, PHOS, GGT #### [facility] [address] [place] [address] Dr. Yogi Naidu Calcium [Mass/Vol] 8.9 mg/dL Normal 8.5-10.1 [facility] Comment on above: Performed By: #### C MP, MG, PHOS, GGT #### [facility] [address] [address] [address] Yogi Naidu Chloride [Moles/Vol] 107 mmol/L Normal 98-107 [facility] Comment on above: Performed By: #### C MP, MG, PHOS, GGT #### [facility] [address] [place] [address] Dr. Yogi Naidu CO2 [Moles/Vol] 25.4 mmol/L Normal 21.0-32.0 [facility] Comment on above: Performed By: #### C MP, MG, PHOS, GGT #### [facility] [address] [address] [address] Yogi Naidu Creatinine [Mass/Vol] 1.35 mg/dL Critically high 0.70-1.30 [facility] Comment on above: Performed By: #### C MP, MG, PHOS, GGT #### [facility] [address] [place] [address] Dr. Yogi Naidu EGFR-AF SWAZI >60 Normal >=60 [facility] Comment on above: Performed By: #### C MP, MG, PHOS, GGT #### [facility] [address] [place] [address] Dr. Yogi Naidu EGFR-NON AF SWAZI 52 mL/min/1.73m2 Critically low >=60 [facility] Comment on above: Performed By: #### C MP, MG, PHOS, GGT #### [facility] [address] [place] [address] Dr. Yogi Naidu Globulin (S) [Mass/Vol] 2.3 g/dL Normal [facility] Comment on above: Performed By: #### C MP, MG, PHOS, GGT #### [facility] [address] [place] [address] Dr. Yogi Naidu Glucose [Mass/Vol] 93 mg/dL Normal 74-106 [facility] Comment on above: Performed By: #### C MP, MG, PHOS, GGT #### [facility] [address] [place] [address] Dr. Yogi Naidu Potassium [Moles/Vol] 4.1 mmol/L Normal 3.5-5.1 [facility] Comment on above: Performed By: #### C MP, MG, PHOS, GGT #### [facility] [address] [address] [address] Yogi Naidu Protein [Mass/Vol] 6.1 g/dL Critically low 6.4-8.2 [facility] Comment on above: Performed By: #### C MP, MG, PHOS, GGT #### [facility] [address] [place] [address] Dr. Yogi Naidu Sodium [Moles/Vol] 142 mmol/L Normal 136-145 [facility] Comment on above: Performed By: #### C MP, MG, PHOS, GGT #### [facility] [address] [place] [address] Dr. Yogi Naidu Urea nitrogen [Mass/Vol] 30.0 mg/dL Critically high 7.0-18 .0 [facility] Comment on above: Performed By: #### C MP, MG, PHOS, GGT #### [facility] [address] [place] [address] Dr. Yogi Naidu Urea nitrogen/Creatinine [Mass ratio] 22.2 mg/mg Normal [facility] Comment on above: Performed By: #### C MP, MG, PHOS, GGT #### [facility] [address] [place] [address] CHEST W IVCONon 0 CT CHEST W IVCON * * *Final Report* * * DATE OF EXAM: Apr 16 2020 12:22PM [facility] 0539 - CT CHEST W IVCON [...] the abdomen and pelvis are dictated separately. Janitor Supervisor (topogram) images: No additional findings. - IMPRESSION: Stable exam with no compelling evidence of intrathoracic metastatic disease. Small nonspecific (<6 mm) pulmonary nodules are unchanged, most of these nodules are unchanged since 2013 and are likely benign. Yarn Packer: RUSTAM Transcribe Date/Time: Apr 16 2020 12:52P Dictated by : ESDRAS SALAZAR MD This examination was interpreted and the report reviewed and electronically signed by: ESDRAS SALAZAR MD on Apr 16 2020 1:05PM EST [id number] [facility] CT LIVER/PELVIS WO/W IVCONon 04-16-2020 CT LIVER/PELVIS WO/W IVCON * * *Final Report* * * DATE OF EXAM: Apr 16 2020 12:22PM [facility] 0551 - CT LIVER/PELVIS WO/W IVCON [...] subcentimeter hypervascular lesion in the pancreatic head. Yarn Packer: PSCB Transcribe Date/Time: Apr 16 2020 12:37P Dictated by : HAIR GUTIÉRREZ MD This examination was interpreted and the report reviewed and electronically signed by: HAIR GUTIÉRREZ MD on Apr 16 2020 12:47PM EST [id number] [facility] NURSING PROGon 04-16-2020 NURSING PROG HNO ID: [id number] Author: Latisha LopezRn) TEENA Hernandez Service: Nursing [...] DATE: April 16, 2020 TIME: 12:00 PM [facility] PROGRESSon 04-16-2020 PROGRESS HNO ID: [id number] Author: Kasey Soto (Rt) Service: Radiology Author Type: Sausage Mixer Type: Progress Notes Filed: 04/16/2020 12:13 PM [...] RT Jonnie April 16, 2020 12:05 PM [facility] 04-10-2020 CNPN Telephone (AVXRPR) SUSAN SHERMAN ([id number]) 1950 M [facility] Date Time Provider Department 04/10/20 REBECA ACEVEDO (TEENA) AVXRCA During your visit today, we recorded the [...] Encounter Status:Closed by REBECA ACEVEDO on 04/10/20 [facility] Vital Signs Date Time Vital Sign Value Performing Clinician Facility 04-15-2024 [id number] Body height 182.9 cm Shea Brannon MD Work Phone: [facility] 04-15-2024 08:26-0400 Body mass index (BMI) [Ratio] 20.75 kg/m2 Shea Brannon MD Work Phone: [facility] 04-15-2024 08:26-0400 Body weight 69.4 kg Shea Brannon MD Work Phone: [facility] 04-15-2024 08:26-0400 Diastolic blood pressure 78 mm[Hg] Shea Brannon MD Work Phone: [facility] 04-15-2024 08:26-0400 Heart rate 68 /min Shea Brannon MD Work Phone: [facility] 04-15-2024 08:26-0400 Systolic blood pressure 116 mm[Hg] Shea Brannon MD Work Phone: [facility] 02-17-2024 09:43-0400 Blood Pressure Location Sugey Lue [facility] 02-17-2024 09:43-0400 Diastolic blood pressure 80 mm[Hg] Sugey Lue [facility] 02-17-2024 09:43-0400 Heart rate 66 /min Sugey Lue [facility] 02-17-2024 09:43-0400 Respiratory rate 16 /min Sugey Lue [facility] 02-17-2024 09:43-0400 Systolic blood pressure 130 mm[Hg] Sugey Lue [facility] 08-13-2023 08:43-0500 Blood Pressure Location Sugey Lue [facility] 08-13-2023 08:43-0500 Diastolic blood pressure 84 mm[Hg] Sugey Lue [facility] 08-13-2023 08:43-0500 Systolic blood pressure 132 mm[Hg] Sugey Lue [facility] 05-27-2023 09:51-0500 Blood Pressure Location Sugey Lue [facility] 05-27-2023 09:51-0500 Diastolic blood pressure 83 mm[Hg] Sugey Lue [facility] 05-27-2023 09:51-0500 Heart rate 92 /min Sugey Lue [facility] 05-27-2023 09:51-0500 Respiratory rate 16 /min Sugey Lue [facility] 05-27-2023 09:51-0500 Systolic blood pressure 131 mm[Hg] Sugey Lue [facility] 04-10-2023 08:37-0400 Body height 182.9 cm Shea Brannon MD Work Phone: [facility] 04-10-2023 08:37-0400 Body mass index (BMI) [Ratio] 25.09 kg/m2 Shea Brannon MD Work Phone: [facility] 04-10-2023 08:37-0400 Body weight 83.92 kg Shea Brannon MD Work Phone: [facility] 04-10-2023 08:37-0400 Diastolic blood pressure 58 mm[Hg] Shea Brannon MD Work Phone: [facility] 04-10-2023 08:37-0400 Heart rate 62 /min Shea Brannon MD Work Phone: [facility] 04-10-2023 08:37-0400 Systolic blood pressure 106 mm[Hg] Shea Brannon MD Work Phone: [facility] 02-25-2023 09:09-0400 Blood Pressure Location Sugey Lue [facility] 02-25-2023 09:09-0400 Diastolic blood pressure 68 mm[Hg] Sugey Lue [facility] 02-25-2023 09:09-0400 Heart rate 68 /min Sugey Lue [facility] 02-25-2023 09:09-0400 Respiratory rate 16 /min Sugey Lue [facility] 02-25-2023 09:09-0400 Systolic blood pressure 130 mm[Hg] Sugey Lue [facility] 01-01-2023 13:30-0400 Body height 182.88 cm Imad Asaad Other [employer] Other 01-01-2023 13:30-0400 Body mass index (BMI) [Ratio] 24.41 kg/m2 Imad Asaad Other [employer] Other 01-01-2023 13:30-0400 Body weight 81.65 kg Imad Asaad Other [employer] Other 01-01-2023 13:30-0400 Diastolic blood pressure 76 mm[Hg] Imad Asaad Other [employer] Other 01-01-2023 13:30-0400 Systolic blood pressure 146 mm[Hg] Imad Asaad Other [employer] Other 12-11-2022 13:53-0400 Diastolic blood pressure 78 mm[Hg] DO Elvira Bunting Work Phone: [facility] 12-11-2022 13:53-0400 Heart rate 74 /min DO Elvira Bunting Work Phone: [facility] 12-11-2022 13:53-0400 Respiratory rate 16 /min DO Elvira Bunting Work Phone: [facility] 12-11-2022 13:53-0400 SaO2% (BldA) [Mass fraction] 98 % DO Elvira Bunting Work Phone: [facility] 12-11-2022 13:53-0400 Systolic blood pressure 125 mm[Hg] DO Elvira Bunting Work Phone: [facility] 12-11-2022 11:28-0400 Body height 182.88 cm DO Elvira Bunting Work Phone: [facility] 12-11-2022 11:28-0400 Body weight 78.92 kg DO Elvira Bunting Work Phone: [facility] 11-11-2022 07:42-0400 Body height 185.42 cm DO Elvira Bunting Work Phone: [facility] 11-11-2022 07:42-0400 Body weight 104.32 kg DO Elvira Bunting Work Phone: [facility] 10-08-2022 08:08-0400 Blood Pressure Location Sugey Lue [facility] 10-08-2022 08:08-0400 Diastolic blood pressure 96 mm[Hg] Sugey Lue [facility] 10-08-2022 08:08-0400 Heart rate 98 /min Sugey Lue [facility] 10-08-2022 08:08-0400 Systolic blood pressure 137 mm[Hg] Sugey Lue [facility] 09-10-2022 09:34-0400 Blood Pressure Location Sugey Lue [facility] 09-10-2022 09:34-0400 Diastolic blood pressure 89 mm[Hg] Sugey Lue [facility] 09-10-2022 09:34-0400 Heart rate 86 /min Sugey Lue [facility] 09-10-2022 09:34-0400 Respiratory rate 16 /min Sugey Lue [facility] 09-10-2022 09:34-0400 Systolic blood pressure 140 mm[Hg] Sugey Lue [facility] 03-27-2022 15:30-0400 Body height 182.88 cm Elvira R Bunting Work Phone: [facility] [employer] [address] DO Work Phone: 03-27-2022 15:30-0400 Body mass index (BMI) [Ratio] 26.72 kg/m2 Elvira R Bunting Work Phone: [facility] DO Work Phone: 03-27-2022 15:30-0400 Body surface area Derived from formula 2.12 m2 Elvria R Bunting Work Phone: [facility] DO Work Phone: 03-27-2022 15:30-0400 Body weight 89.36 kg Elvira R Bunting Work Phone: [facility] [address] DO Work Phone: 03-27-2022 15:30-0400 Diastolic blood pressure 80 mm[Hg] Elvira R Bunting Work Phone: [facility] [address] DO Work Phone: 03-27-2022 15:30-0400 Heart rate 68 /min Elvira R Bunting Work Phone: [facility] [facility] DO Work Phone: 03-27-2022 15:30-0400 Systolic blood pressure 126 mm[Hg] Elvira R Bunting Work Phone: [facility] [facility] DO Work Phone: 12-24-2021 08:22-0400 Blood Pressure Location Mike Alves Jr. [facility] 12-24-2021 08:22-0400 Diastolic blood pressure 79 mm[Hg] Mike Alves Jr. [facility] 12-24-2021 08:22-0400 Heart rate 100 /min Mike Alves Jr. [facility] 12-24-2021 08:22-0400 Respiratory rate 16 /min Mike Alves Jr. [facility] 12-24-2021 08:22-0400 Systolic blood pressure 107 mm[Hg] Mike Alves Jr. [facility] Encounters Encounter Date Encounter Type Care Provider Facility Start: 08-17-2024 ambulatory Sugey Arteaga Facility:[facility] Start: 04-18-2024 End: 04-18-2024 Telephone encounter Liver Txp Coordinator Work Phone: [facility] Start: 04-15-2024 End: 04-15-2024 Office outpatient visit 25 minutes Shea Brannon MD Work Phone: [facility] Comment on above: Shortness of breath (Primary Dx); Sick sinus syndrome (Multi); Essential hypertension; Mixed hyperlipidemia; Pacemaker; BMI 20.0-20.9, adult; Liver transplanted (Multi); Former smoker Start: 04-15-2024 End: 04-15-2024 ambulatory [facility] Start: 04-11-2024 End: 04-11-2024 Bamboo flowsheet Jaswinder A Felter SELF RISING [employer] MIXER-TELLER Work Phone: [facility] Start: 04-11-2024 End: 04-11-2024 Bamboo flowsheet Jaswinder A Felter SELF [employer] MIXER-TELLER Work Phone: [facility] Start: 04-11-2024 End: 04-11-2024 Office outpatient visit 15 minutes Jaswinder A Felter SELF [employer]ISING [employer] MIXER-TELLER Work Phone: [facility] Comment on above: Melanocytic nevus of trunk; Seborrheic keratosis; Actinic keratosis Start: 04-11-2024 End: 04-11-2024 ambulatory JASWINDER BLACKMANER Not Available Start: 02-17-2024 End: 02-17-2024 ambulatory Sugey Arteaga Facility:[facility] Start: 02-17-2024 End: 02-17-2024 Lab Drop off Sugey Artaega [facility] Start: 02-17-2024 End: 02-17-2024 ambulatory Sugey Arteaga Facility: [facility] Start: 02-17-2024 End: 02-17-2024 Patient encounter procedure Sugey Arteaga [facility] Start: 02-05-2024 End: 02-05-2024 Patient encounter procedure DO Elvira Bunting Work Phone: [facility]Pac[facility] Start: 02-05-2024 End: 02-05-2024 ambulatory DO Elvira Bunting Work Phone: [facility] Work Phone: Start: 12-04-2023 E-mail encounter fro m caregiver Yulisa Lewis RN [facility] Start: 12-04-2023 Patient encounter procedure Yulisa Lewis RN [facility] Comment on above: Lab Reminder Start: 11-06-2023 End: 11-06-2023 Patient encounter procedure DO Elvira Bunting Work Phone: [facility]Pac[facility] Start: 11-06-2023 End: 11-06-2023 ambulatory DO Elvira Bunting Work Phone: [facility] Work Phone: Start: 10-24-2023 Refill Nely Tony s SELF [employer] MIXER.TELLER Work Phone: [facility] Comment on above: Refill Request Start: 08-17-2023 Refill Nely Tony s SELF [employer] MIXER.TELLER Work Phone: [facility] Comment on above: Refill Request Start: 08-13-2023 End: 08-13-2023 ambulatory Sugey Arteaga Facility:[facility] Start: 08-13-2023 End: 08-13-2023 Patient encounter procedure Sugey Arteaga [facility] Start: 08-07-2023 End: 08-07-2023 ambulatory Branden Woodward Facility:[facility] Start: 07-27-2023 Telephone encounter Yulisa Lewis RN [facility] Comment on above: Insurance Authorizat ion (Tacrolimus ) Start: 05-27-2023 End: 05-27-2023 ambulatory Sugey Arteaga Facility:[facility] Start: 05-27-2023 End: 05-27-2023 Patient encounter procedure [facility] Arteaga [facility] Start: 05-04-2023 End: 05-04-2023 Patient encounter procedure DO Elvira Bunting Work Phone: [facility]-Pacemaker Check Start: 05-04-2023 End: 05-04-2023 ambulatory DO Elvira Bunting Work Phone: [facility] Work Phone: Start: 04-10-2023 End: 04-10-2023 Office outpatient visit 15 minutes Shea Brannon MD Work Phone: [facility] Comment on above: Sick sinus syndrome (CMS/HCC) (Primary Dx); Essential hypertension; Mixed hyperlipidemia; Overweight with body mass index (BMI) of 26 to 26.9 in adult; Liver transplanted (CMS/HCC); Pacemaker Start: 02-25-2023 End: 02-25-2023 ambulatory Sugey Arteaga Facility:[facility] Start: 02-25-2023 End: 02-25-2023 Patient encounter procedure [facility]ugey Arteaga [facility] Start: 02-23-2023 Telephone encounter Yulisa Lewis RN [facility] Comment on above: Patient Update; Orde rs (New standing lab order ) Start: 01-15-2023 End: 01-15-2023 ambulatory DO Elvira Bunting Work Phone: [facility] Work Phone: Start: 01-15-2023 End: 01-15-2023 Patient encounter procedure DO Elvira Bunting Work Phone: [facility] Work Phone: Start: 01-01-2023 End: 01-01-2023 ambulatory Imad Asaad Other [employer] Other Start: 01-01-2023 Patient encounter procedure Imad Asaad [facility] Start: 12-11-2022 End: 12-11-2022 Admission to same day surgery center DO Elvira Bunting Work Phone: [facility] Work Phone: Start: 12-08-2022 End: 12-08-2022 ambulatory Imad Asaad Other [employer] Other Start: 12-08-2022 Telephone encounter Imad Asaad [facility] Start: 11-28-2022 End: 11-28-2022 ambulatory Imad Asaad Other [employer] Other Start: 11-28-2022 Telephone encounter Imad Asaad [facility] Start: 11-12-2022 End: 11-12-2022 ambulatory Imad Asaad Other [employer] Other Start: 11-12-2022 Telephone encounter Imad Asaad [facility] Start: 11-11-[address] Elvira Schultz [facility]:[id number] Start: 11-11-2022 End: 11-11-2022 ambulatory DO Elvira Schultz Work Phone: [facility] Work Phone: Start: 11-11-2022 End: 11-11-2022 Patient encounter procedure DO Elvira Bunmaggie Work Phone: [facility] [place] Work Phone: Start: 11-06-2022 End: 11-06-2022 Patient encounter procedure DO Elvira Schultz Work Phone: [facility] [place] Work Phone: Start: 10-31-2022 End: 10-31-2022 Patient encounter procedure DO Elvira Schultz Work Phone: [facility]Pacemaker Check Start: 10-31-[address] Elvira Schultz Facility:[id number] Start: 10-20-2022 End: 10-21-[address] ELVIRA SCHULTZ Facility:[facility] Start: 10-09-[address] Elvira Schultz Facility:[id number] Start: 10-09-2022 End: 10-09-2022 ambulatory DO Elvira Schultz Work Phone: [facility] Work Phone: Start: 10-09-2022 End: 10-09-2022 Patient encounter procedure DO Elvira Schultz Work Phone: [facility]Pacemaker Check Start: 10-08-2022 End: 10-08-2022 Patient encounter procedure Sugey Arteaga [facility] Start: 09-26-2022 End: 09-26-[address] ELVIRA SCHULTZ Facility:[facility] Start: 09-22-2022 End: 09-22-2022 Patient encounter procedure Sugey Arteaga [facility] Start: 09-10-2022 End: 09-10-2022 Patient encounter procedure Sugey Arteaga [facility] Start: 09-03-2022 Refill Nely parker APRN.CNP Work Phone: [facility] Comment on above: Refill Request Start: 08-19-2022 End: 08-20-[address] ELVIRA SCHULTZ Facility:[facility] Start: 07-22-2022 End: 07-23-[address] ELVIRA SCHULTZ Facility:[facility] Start: 06-16-2022 End: 06-17-[address] ELVIRA SCHULTZ Facility:[facility] Start: 05-19-2022 End: 05-20-[address] ELVIRA SCHULTZ Facility:[facility] Start: 05-14-2022 Rx Renewal Elvira Pizano ng Work Phone: [facility] DO Work Phone: Start: 04-30-[address] Elvira Schultz Facility:[id number] Start: 04-30-2022 End: 04-30-2022 ambulatory DO Elvira Schultz Work Phone: [facility] Work Phone: Start: 04-30-2022 End: 04-30-2022 Patient encounter procedure DO Elvira Schultz Work Phone: [facility]Pacemaker Check Start: 04-21-2022 End: 04-22-2022 ambulatory DOCTOR MISC Facility:[facility]1 Start: 03-27-2022 Office outpatient vi sit 15 minutes Elvira Schultz Work Phone: [facility] 250 DO Work Phone: Start: 03-27-[address] Shea Brannon Facility: Start: 03-17-2022 End: 03-18-2022 ambulatory DOCTOR MISC Facility:[facility] Start: 02-26-2022 End: 02-26-2022 Patient encounter procedure VINICIUS RUSSELL [facility] Start: 02-18-2022 End: 02-19-[address] ELVIRA SCHULTZ Facility:[facility] Start: 01-22-2022 Encounter for preprocedural laboratory examination DR MIKE June [facility] Start: 01-22-2022 End: 01-22-[address] ELVIRA SCHULTZ Facility:[facility] Start: 01-21-2022 End: 01-22-[address] MIKE June Facility:[facility] Start: 01-21-2022 End: 01-22-2022 Encounter for preprocedural laboratory examination DR MIKE June Facility:[facility] Start: 01-14-2022 Encounter for preprocedural cardiovascular examination DR MIKE June [facility] Start: 01-13-2022 End: 01-14-2022 Encounter for preprocedural cardiovascular examination DR ELVIRA SCHULTZ Facility:[facility] Start: 01-13-2022 End: 01-14-[address] ELVIRA SCHULTZ Facility:[facility] Start: 01-07-2022 Rx Renewal Shea gill MD Work Phone: [facility] [address] DO Work Phone: Start: 12-24-2021 End: 12-24-2021 Patient encounter procedure Mike Alves Jr. 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 Yogi Naidu Start: 01-22-2022 Transrectal biopsy of prostate using ultrasound guidance Sugeyqian Arteaga Start: 12-21-2021 PSA screening DOCTOR MISC Comment on above: Performed By: #### MERLE MORALES #### [facility] [address] [place], [place] [id number] Dr. Yogi Naidu Start: 11-09-2019 Transrectal biopsy of prostate using ultrasound guidance Mike Alves Jr. Start: 05-19-2018 Transrectal biopsy of prostate using ultrasound guidance Mike Alves Jr. Start: 01-19-2015 H/O: liver recipient Liver transplanted Nely Ibarra APRN.TELLER Work Phone: Start: 02-11-2012 Colonoscopy Nely Ibarra APRN.TELLER Work Phone: Appendectomy Mike June Appendectomy Shea Brannon MD Work Phone: Biopsy of prostate Shea Brannon MD Work Phone: Comment on above: Aug 06; Cardiac pacemaker, d evice (physical object) Mike Alves Jr. Colonoscopy Mike June Colonoscopy Shea Brannon MD Work Phone: Comment on above: 15Jun2011; H/O: liver recipient Liver repla alessandro by transplant (HCC) Nely Ibarra APRN.TELLER Work Phone: H/O: liver recipient Transplante d liver (HCC) Cesar Borrego MD Work Phone: H/O: liver recipient Liver transplanted Simon Brannon MD Work Phone: H/O: liver recipient Liver trans plant recipient DO Elvira Schultz Work Phone: H/O: liver recipient Liver repla alessandro by transplant (HCC) Nely Ibarra APRN.TELLER Work Phone: H/O: liver recipient Liver trans planted (CMS/HCC) Shea Brannon MD Work Phone: H/O: liver recipient Liver repla alessandro by transplant (HCC) Nely Ibarra APRN.TELLER Work Phone: H/O: liver recipient Transplante d liver (HCC) Nely Ibarra APRN.TELLER Work Phone: H/O: liver recipient Liver trans planted (Multi) Shea Brannon MD Work Phone: Hernia repair Shea Brannon MD Work Phone: Surgical procedure Shea Brannon MD Work Phone: Comment on above: vein removal from leg; Tonsillectomy Mike Long ch Transplantation of liver Elsy Brannon MD Work Phone: Transplantation of liver Deanne Arteaga Plan of Treatment Date Care Activity Detail Author Start: 02-19-2028 Lipid panel Lipid Screening [facility] Start: 02-19-2028 LIPID SCREEN LIPID SCREEN [facility] Start: 07-22-2027 LIPID SCREEN LIPID SCREEN [facility] [facility] Start: 2027 RSV Vaccine (1 - 1-d ose 75+ series) RSV Vaccine (1 - 1-dose 75+ series) [facility] Start: 02-15-2027 [facility]: 10-15-2026 LIPID SCREEN LIPID SCREEN [facility] Start: 08-19-2026 LIPID SCREEN LIPID SCREEN [facility] Start: 08-16-2026 [facility] Start: 06-16-2026 [facility] Start: 02-18-2026 DIABETES SCREEN DIABETES SCREEN [facility] Start: 08-19-2025 DIABETES SCREEN DIABETES SCREEN [facility] Start: 04-21-2025 End: 04-21-2025 Patient encounter procedure 04/21/2025 8:30 AM EST Office Visit [facility] [address] [facility] [address] [place] [address] Shea Brannon MD [address] [facility] [address] [place] [address] [facility] Start: 04-10-2025 End: 04-10-2025 Patient encounter procedure 04/10/2025 8:55 AM EDT Office Visit [facility] [address] [place] [id number] Jaswinder Hniojosa, [employer]TELLER [address] [place] [address] [facility] Start: 10-15-2024 DIABETES SCREEN DIABETES SCREEN [facility] Start: 08-19-2024 DIABETES SCREEN DIABETES SCREEN [facility] Start: 05-20-2024 End: 05-20-2024 Patient encounter procedure 05/20/2024 8:45 AM EST Appointment [facility] [address] [place] [address] [facility] Start: 04-15-2024 End: 04-15-2026 US Heart Transthoracic Transthoracic Echo Complete Echocardiography Routine Shortness of breath Expected: 04/15/2024 (Approximate), Expires: 04/15/2026 [facility] Service Area Work Phone: Comment on above: Expected: 04/15/2024 (Approximate), Expires: 04/15/2026 Start: 04-15-2024 End: 04-15-2024 Patient encounter procedure 04/15/2024 8:30 AM EDT Office Visit [facility] [address] [place] [address] Shea Brannon MD [address] [facility] [address] [place], [place] [id number] [facility] Start: 04-11-2024 End: 04-11-2024 Patient encounter procedure 04/11/2024 9:05 AM EDT Office Visit [facility] [address] [place] [address] Jaswinder Hinojosa, [employer]TE[employer]ER [address] [place] [address] Arrived [facility] Comment on above: Arrived Start: 02-14-2024 Influenza vaccination Influenza Vacc ine (#1) [facility] Start: 06-15-2023 Advance Directive Discussion Advance Directive Discussion [facility] Start: 06-15-2023 Behavioral Health Screening Behavioral Health Screening [facility] Start: 06-15-2023 Depression Assessment Depression Ass essment [facility] Start: 04-10-2023 FUV, Provider: Shea Brannon, Status: Pen, Time: 8:30 AM FUV, Provider: Shea Brannon, Status: Pen, Time: 8:30 AM [facility] [address] DO Work Phone: Start: 02-13-2023 Influenza vaccination INFLUENZA (#1) [facility] Start: 12-11-2022 [facility] Start: 06-15-2022 ADVANCE DIRECTIVE DISCUSSION ADVANCE DIRECTIVE DISCUSSION [facility] Start: 06-15-2022 DEPRESSION ASSESSMENT DEPRESSION ASS ESSMENT [facility] Start: 02-13-2022 Influenza vaccination C [facility] Start: 02-10-2022 Screening for malign ant neoplasm of colon [facility] Start: 01-13-2022 FUV, Provider: Shea Brannon, Status: Pen, Time: 8:20 AM FUV, Provider: Shea Brannon, Status: Pen, Time: 8:[facility] Work Phone: Start: 12-06-2021 FUV, Provider: Shea Brannon, Status: Pen, Time: 8:30 AM FUV, Provider: Shea Brannon, Status: Pen, Time: 8:[address] [facility] Work Phone: Start: 06-15-2021 ADVANCE DIRECTIVE DISCUSSION ADVANCE DIRECTIVE DISCUSSION [facility] Start: 04-27-2021 Pneumococcal Vaccine : 65+ Years (3 - PPSV23 or PCV20) Pneumococcal Vaccine: 65+ Years (3 - PPSV23 or PCV20) [facility] Start: 06-22-2020 Pneumococcal Vaccine : 65+ (3 of 3 - PPSV23 or PCV20) Pneumococcal Vaccine: 65+ (3 of 3 - PPSV23 or PCV20) [facility] Start: 06-22-2020 Pneumococcal Vaccine : 65+ Years (3 of 3 - PPSV23 or PCV20) Pneumococcal Vaccine: 65+ Years (3 of 3 - PPSV23 or PCV20) [facility] Start: 06-22-2020 Shingrix Vaccine (2 of 2) Shingrix Vaccine (2 of 2) [facility] Start: 06-22-2020 Zoster Vaccines (2 o f 2) Zoster Vaccines (2 of 2) [facility] Start: 10-26-2017 PNEUMOVAX AGE 65 AND OVER WITH 5YR LOOKBACK (#1) PNEUMOVAX AGE 65 AND OVER WITH 5YR LOOKBACK (#1) [facility] Start: 2017 Abdominal aortic aneurysm screening Abdominal Aortic Aneurysm (AAA) Screening [facility] Start: [address] [facility] Start: 2017 ADULT PREVNAR-13 ADULT PREVNAR-13 Cl jimbo [facility] Start: 10-26-2013 PNEUMOCOCCAL: 65+ (2 - PCV) PNEUMOCOCCAL: 65+ (2 - PCV) [facility] Start: 02-10-2013 Colonoscopy COLONOSCOPY [facility] Start: 02-10-2013 COLORECTAL CANCER SCREENING COLORECTAL CANCER SCREENING [facility] Start: 02-10-2013 Screening for malign ant neoplasm of colon [facility] Start: 11-23-2012 HEPATITIS A (2 of 3 - Hep A Twinrix risk 3-dose series) HEPATITIS A (2 of 3 - Hep A Twinrix risk 3-dose series) [facility] Start: 11-23-2012 Hepatitis A Vaccines (2 of 3 - Hep A Twinrix risk 3-dose series) Hepatitis A Vaccines (2 of 3 - Hep A Twinrix risk 3-dose series) [facility] Start: 11-23-2012 HEPATITIS B (2 of 3 - Hep B Twinrix risk 3-dose series) HEPATITIS B (2 of 3 - Hep B Twinrix risk 3-dose series) [facility] Start: 11-23-2012 Hepatitis B Vaccines (2 of 3 - Hep B Twinrix risk 3-dose series) Hepatitis B Vaccines (2 of 3 - Hep B Twinrix risk 3-dose series) [facility] Start: 2012 RSV High Risk: (Elde rly (60+) or Population) (1 - Risk 60-74 years 1-dose series) RSV High Risk: (Elderly (60+) or Population) (1 - Risk 60-74 years 1-dose series) [facility] Start: 2012 RSV Vaccine (1 - 1-d ose 60+ series) RSV Vaccine (1 - 1-dose 60+ series) [facility] Start: 2002 SHINGRIX VACCINE (1 of 2) SHINGRIX VACCINE (1 of 2) [facility] Start: 1997 COLOGUARD (FIT-DNA) COLOGUARD (FIT-D NA) [facility] Start: [address] COLONOGRAPHY [facility] Start: 1997 FECAL OCCULT BLOOD FECAL OCCULT BLOO D [facility] Start: 1997 Screening for malign ant neoplasm of colon [facility] Start: [address] [facility] Start: 1974 DTaP/Tdap/Td Vaccine s (1 - Tdap) DTaP/Tdap/Td Vaccines (1 - Tdap) [facility] Start: 1971 SHINGRIX VACCINE (1 of 2) SHINGRIX VACCINE (1 of 2) [facility] Start: 1971 Urine microalbumin profile [facility] Start: 1970 Anxiety Screening Anxiety Screening [facility] Start: 1970 Depression Screening Depression Scre ening [facility] Start: 1964 Adult depression screening assessment DEPRESSION SCREENING [facility] Start: 1964 COVID-19 VACCINE (1) COVID-19 VACCIN E (1) [facility] Start: 1957 COVID-19 VACCINE (#1) COVID-19 VACCI NE (#1) [facility] Start: 1952 COVID-19 VACCINE (#1) COVID-19 VACCI NE (#1) [facility] Start: 1952 ABDOMINAL AORTIC ANEURYSM SCREENING ABDOMINAL AORTIC ANEURYSM SCREENING [facility] Start: 1952 Abdominal aortic aneurysm screening Abdominal Aortic Aneurysm Screening [facility] Start: 1952 Lipid panel Lipid Panel [facility] Start: 1952 Medicare Annual Wellness Visit Medicare Annual Wellness Visit (AWV) [facility] Start: 1952 Screening for malign ant neoplasm of colon [facility] Calprotectin [Mass/mass] in Stool [facility] Ova and parasites identified in Unspecified specimen by Light microscopy [facility] Patient Education Gastritis Esop hageal Dilation Colon Polypectomy (DC) [facility] Work Phone: Potassium [Moles/mas s] in Stool [facility] Immunizations Immunization Date Immunization Notes Care Provider Fa cility 01-27-2023 Flu vaccine, quadrivalent, high-dose, preservative free, age 65y+ (FLUZONE) Shea Brannon MD Work Phone: [facility] Work Phone: 01-27-2023 influenza virus vaccine, unspecified formulation Sugey Arteaga [facility] 05-30-2022 Flu vaccine, quadrivalent, high-dose, preservative free, age 65y+ (FLUZONE) Shea Brannon MD Work Phone: [facility] Work Phone: 05-30-2022 influenza virus vaccine, unspecified formulation Sugey Arteaga [facility] 04-20-2021 Fluad Quadrivalent 0 .5 ML Intramuscular Prefilled Syringe Elvira R Bunting Work Phone: [facility] 250 DO Work Phone: 04-20-2021 influenza virus vaccine, unspecified formulation Sugey Lue [facility] 04-27-2020 Fluad Quadrivalent 0 .5 ML Intramuscular Prefilled Syringe Elvira R Bunting Work Phone: [facility] 250 DO Work Phone: 04-27-2020 influenza virus vaccine, unspecified formulation Sugey Arteaga [facility] 04-27-2020 pneumococcal conjuga te vaccine, 13 valent Elvira R Bunmaggie Work Phone: [facility] 04-27-2020 zoster vaccine recombinant Elvira R Bunting Work Phone: [facility] 03-15-2020 influenza virus vaccine, unspecified formulation Shea Brannon MD Work Phone: [facility] 03-15-2020 influenza, seasonal, injectable Shea Brannon MD Work Phone: [facility] Work Phone: 02-16-2019 influenza virus vaccine, unspecified formulation Sugey Arteaga [facility] 02-16-2019 influenza, high dose seasonal, preservative-free Elvira R Bunmaggie Work Phone: [facility] 250 DO Work Phone: 06-15-2018 influenza virus vaccine, unspecified formulation Shea Brannon MD Work Phone: [facility] 06-15-2018 influenza, seasonal, injectable Shea Brannon MD Work Phone: [facility] Work Phone: 04-15-2018 influenza virus vaccine, unspecified formulation Shea Brannon MD Work Phone: [employer] [address] DO Work Phone: 02-22-2018 influenza virus vaccine, unspecified formulation Sugey Arteaga [facility] 02-22-2018 influenza, high dose seasonal, preservative-free Elvira R Bunting Work Phone: [facility] 250 DO Work Phone: 02-16-2017 influenza virus vaccine, unspecified formulation Shea Brannon MD Work Phone: [employer] [address] DO Work Phone: 02-11-2017 influenza virus vaccine, unspecified formulation Sugey Luvesta [facility] 02-11-2017 influenza, injectabl e, quadrivalent, preservative free Shea Brannon MD Work Phone: [facility] Work Phone: 04-23-2016 influenza virus vaccine, unspecified formulation Sugey Lue [facility] 04-23-2016 influenza, injectabl e, quadrivalent, preservative free Elvira R Bunting Work Phone: [facility] 250 DO Work Phone: 04-12-2015 influenza virus vaccine, unspecified formulation Sugey Lue [facility] 04-12-2015 influenza, injectabl e, quadrivalent, preservative free Elvira R Bunting Work Phone: [facility] 250 DO Work Phone: 10-26-2012 hepatitis A and hepatitis B vaccine Nely Ibarra [employer] Work Phone: [facility] 10-26-2012 pneumococcal polysaccharide vaccine, 23 valent Nely Ibarra [employer] Work Phone: [facility] 10-26-2012 hepatitis B vaccine, unspecified formulation Nely Ibarra [employer] Work Phone: [facility] Payers Date Payer Category Payer Self-pay [id number] 2021 Medicare ANTH MEDICARE ANTHEM MEDICARE ADVANTAGE [id number] 2021-Present [address] [place] [address] [id number] 2021 Medicare (Managed Care) 1.2. [id number] 2021 Unknown ANTHEM BLUE CROS S AND BLUE SHIELD ANTHEM MEDIBLUE ACCESS [id number] 2021-Present [phone] [address] [place] [address] PPO [id number] 2021 Unknown [id number] 2019 Unknown 1959 Medicare [id number] 1952 Unknown [id number] 2.16.840.1.033028.3.579.2 .593 1952 Unknown [id number] 2.16.840.1.374642.3.579.2 .593 1952 Unknown [id number] 2.16.840.1.222189.3.579.2 .593 1952 Unknown [id number] 2.16.840.1.510001.3.579.2 .593 1952 Unknown [id number] 2.16.840.1.801911.3.579.2 .593 1952 Unknown [id number] 2.16.840.1.956414.3.579.2 .593 1952 Unknown [id number] 2.16.840.1.465391.3.579.2 .593 1952 Unknown [id number] 2.16.840.1.847230.3.579.2 .593 1952 Unknown [id number] 2.16.840.1.970179.3.579.2 .593 1952 Unknown [id number] 2.16.840.1.660264.3.579.2 .593 1952 Unknown [id number] 2.16.840.1.161946.3.579.2 .593 1952 Unknown [id number] 2.16.840.1.962548.3.579.2 .593 1952 Unknown [id number] 2.16.840.1.136984.3.579.2 .593 1952 Unknown [id number] 2.16.840.1.651768.3.579.2 .593 1952 Unknown [id number] 2.16.840.1.149281.3.579.2 .593 1952 Unknown [id number] 2.16.840.1.868765.3.579.2 .593 1952 Unknown [id number] 2.16.840.1.771311.3.579.2 .593 1952 Unknown [id number] 2.16.840.1.182986.3.579.2 .356 1952 Unknown [id number] 2.16.840.1.058717.3.579.2 .356 1952 Unknown [id number] 2.16.840.1.896997.3.579.2 .356 1952 Unknown [id number] 2.16.840.1.268387.3.579.2 .356 1952 Unknown [id number] 2.16.840.1.495421.3.579.2 .356 1952 Unknown [id number] 2.16.840.1.761336.3.579.2 .727 1952 Unknown [id number] 2.16.840.1.595412.3.579.2 .727 1952 Unknown [id number] 2.16.840.1.702422.3.579.2 .727 1952 Unknown [id number] 2.16.840.1.043918.3.579.2 .727 1952 Unknown [id number] 2.16.840.1.437389.3.579.2 .727 1952 Unknown [id number] 2.16.840.1.381432.3.579.2 .727 1952 Unknown [id number] 2.840.1.964716.3.579.2 .1259 1952 Unknown [id number] 2.840.1.884010.3.579.2 .1244 Medicare Medicare [id number] Unknown [id number] Unknown HCAP/HFA/FAP Active [id number] Unknown [id number] 2.840.1.518032.3.579.2 .531 Unknown [id number] 2.840.1.482980.3.579.2 .531 Unknown [id number] 2.16840.1.094960.3.579.2 .531 Unknown [id number] 2.840.1.554568.3.579.2 .531 Social History Date Type Detail Facility Start: 11-29-2012 End: 12-24-2021 Tobacco smoking status NHIS Ex-smoker [facility] Start: 02-18-2017 Alcohol intake 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 non-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 operator of alcohol (finding) [facility] Start: 1950 Sex Assigned At Not on file C [facility] Start: 08-13-2023 End: 02-17-2024 Tobacco smoking status Never [facility] Start: 12-11-2017 End: 05-21-2020 Sex Assigned At Male [facility] Start: 12-11-2017 End: 05-21-2020 Caffeine use Caffeine use [facility] [address] DO Work Phone: Comment on above: 1.5 cups of coffee a nd a quart of Iced Tea daily; quit around ; 1.5 cups of coffee; Start: 1950 Sex Assigned At Male F [facility] End: 06-15-1982 History of tobacco use Current smoker [facility] Start: 11-29-2012 End: 04-10-2023 Tobacco use and exposure Smokeless tobacco non-user [facility] End: 06-15-1982 History of tobacco use Cigarette Smoker [facility] Work Phone: Start: 04-10-2023 End: 04-15-2024 Alcohol intake Lifetime non-drinker (finding) [facility] Work Phone: Start: 03-31-2023 End: 04-15-2024 Exposure to SARS-CoV-2 (event) Not sure [facility] Start: 03-31-2023 End: 04-11-2024 Alcoholic beverage intake [facility]er [facility] Medical Equipment Procedure Code Equipment Code Equipment [...] /State Functional Status Date Assessment Result Facility 02-17-2024 Functional Status N/A [facility] 08-13-2023 Functional Status N/A [facility] 05-27-2023 Functional Status N/A [facility] 02-25-2023 Functional Status N/A [facility] 10-08-2022 Functional Status N/A [facility] 09-15-2022 Functional Status N/A [facility] 09-10-2022 Functional Status N/A [facility] 02-26-2022 Functional Status N/A [facility] 12-24-2021 Functional Status N/A [facility] Clinical Notes 02-07-2015 to 04-18-2024 Telephone Encounter - Sonali So - 04/18/2024 8:06 AM ESTTelephone Encounter - Sonali So - 04/18/2024 8:06 AM Fabrice Brannon MD - 04/15/2024 8:30 AM EDTPatient Instructions Note Date & Type Note Facility 04-18-2024 Telephone encounter Note Camille is calling in from [facility] lab and need standing lab order fax over. The fax number is [phone] Sonali So [facility] 04-18-2024 Miscellaneous Notes Camille is calling in from [facility] lab and need standing lab order fax over. The fax number is [phone] Sonali So documented in this encounter [facility] 04-15-2024 History of Present illness Narrative Subjective Susan Sherman is a 74 y.o. male Chief Complaint Annual Exam HPI Patient is here for follow-up continue management for history of sick sinus syndrome status post permanent pacemaker implantation, hypertension, mild hyperlipidemia with previous history of liver transplant. Since last time I saw him he noticed decreased exercise tolerance and dyspnea on exertion. He denies chest pain, lightheadedness, dizziness or syncope in addition I noticed that he lost close to 30 pounds. The patient states he has not been eating as much. But it appears to be an intentional weight loss. Assessment 1. Complaint of decreased exercise tolerance and dyspnea on exertion which is not new his last cardiac workup was back in 2019 2. Sick sinus syndrome status post prior permanent pacemaker implantation. Stable. Recent device check satisfactory. 3. Hypertension controlled 4. Status post liver transplant good liver function test 5. Mild hyperlipidemia addressed by dietary modification 6. Very low burden atrial fibrillation noted previously on device check. Does not require anticoagulation 7. Unintentional weight loss Plan 1. The patient will remain the current treatment 2. Patient recent device check was reviewed with him 3. I advised him to have an echocardiogram concerning her recent complaint of decreased exercise tolerance and dyspnea on exertion 4. The patient was counseled regarding llosing Weight, Exercise and Dietary Modification 5. Follow-up in 1 year 6. I reviewed his recent lab with him 7. I advised him to discuss with his PCP and transplant team his unintentional weight Review of Systems Constitutional: Positive for malaise/fatigue. Respiratory: Positive for shortness of breath. All other systems reviewed and are negative. Vitals: 04/15/24 0826 BP: 116/78 BP Location: Left arm Patient Position: Sitting Pulse: 68 Weight: 69.4 kg (153 lb) Height: 1.829 m (6') Objective Physical Exam Constitutional: Appearance: Normal appearance. HENT: Nose: Nose normal. Neck: Vascular: No carotid bruit. Cardiovascular: Rate and Rhythm: Normal rate. Pulses: Normal pulses. Heart sounds: Normal heart sounds. Pulmonary: Effort: Pulmonary effort is normal. Abdominal: General: Bowel sounds are normal. Palpations: Abdomen is soft. Musculoskeletal: General: Normal range of motion. Cervical back: Normal range of motion. Right lower leg: No edema. Left lower leg: No edema. Skin: General: Skin is warm and dry. Neurological: General: No focal deficit present. Mental Status: He is alert. Psychiatric: Mood and Affect: Mood normal. Behavior: Behavior normal. Thought Content: Thought content normal. Judgment: Judgment normal. Allergies Patient has no known allergies. Current Medications Current Outpatient Medications: ascorbic acid (Vitamin C) 1,000 mg tablet, Take 1 tablet (1,000 mg) by mouth once daily., Disp: , Rfl: aspirin 81 mg EC tablet, Take 1 tablet (81 mg) by mouth once daily., Disp: , Rfl: cholecalciferol (Vitamin D-3) 125 MCG (5000 UT) capsule, Take 1 capsule (125 mcg) by mouth once daily., Disp: , Rfl: elderberry fruit and flower 460-115 mg capsule, Take 2,000 mg by mouth once daily., Disp: , Rfl: finasteride (Proscar) 5 mg tablet, Take 1 tablet (5 mg) by mouth once daily., Disp: , Rfl: metoprolol tartrate (Lopressor) 25 mg tablet, TAKE 1 TABLET BY MOUTH TWICE A DAY, Disp: 180 tablet, Rfl: 3 oxybutynin XL (Ditropan-XL) 5 mg 24 hr tablet, Take 1 tablet (5 mg) by mouth once daily at bedtime., Disp: , Rfl: sulfamethoxazole-trimethoprim (Bactrim DS) 800-160 mg tablet, Take 1 tablet by mouth once daily. ON THURSDAY, THURSDAY, AND THURSDAY., Disp: , Rfl: tacrolimus (Prograf) 1 mg capsule, Take 2 capsules (2 mg) by mouth twice a day., Disp: , Rfl: terazosin (Hytrin) 5 mg capsule, Take 1 capsule (5 mg) by mouth once daily at bedtime., Disp: , Rfl: zinc gluconate 50 mg tablet, Take 1 tablet (50 mg) by mouth once daily., Disp: , Rfl: Assessment/Plan 1. Shortness of breath Transthoracic Echo Complete 2. Sick sinus syndrome (Multi) Follow Up In Cardiology 3. Essential hypertension Follow Up In Cardiology Follow Up In Cardiology 4. Mixed hyperlipidemia Follow Up In Cardiology 5. Pacemaker 6. BMI 20.0-20.9, adult 7. Liver transplanted (Multi) 8. Former smoker Scribe Attestation By signing my name below, I, .myname , Scribe attest that this documentation has been prepared under the direction and in the presence of Shea Brannon MD. Provider Attestation - Scribe documentation All medical record entries made by the Scribe were at my direction and personally dictated by me. I have reviewed the chart and agree that the record accurately reflects my personal performance of the history, physical exam, discussion and plan. documented in this encounter [facility] Work Phone: 04-15-2024 Instructions Ragini Contreras LPN - 04/15/2024 8:30 AM EDT Please bring all medicines, vitamins, and herbal supplements with you when you come to the office. Prescriptions will not be filled unless you are compliant with your follow up appointments or have a follow up appointment scheduled as per instruction of your physician. Refills should be requested at the time of your visit. Pacemaker/Defibrillator follow up per routine documented in this encounter [facility] Work Phone: 04-11-2024 History of Present illness Narrative Skin Check Location: Patient requests a full body skin examination Dermatologic history: history of Actinic Keratosis Last visit: 1 year ago Established patient Lesions: Location: scalp Duration: months Quality: denies pain, denies itch, denies bleeding Modifying factors: aggravated by picking Associated symptoms: red, rough, scaly Treatments: none All pertinent medical history, medications, and allergies were reviewed. General Exam: alert, oriented to person, place, and time, normal affect, well appearing Unaccompanied Scalp, Examined Right leg Examined Head, Face Examined Left leg Examined Neck Examined Right foot Examined Chest Examined Left foot Examined Back Examined Buttocks Examined Abdomen Examined Digits,nails: Examined Right arm Examined Left arm Examined Lymphatics: Not examined Hands Examined 1. Melanocytic nevus of trunk Scattered benign appearing, regular brown to light brown melanocytic papules and macules with similar morphology Counseled regarding these benign growths. Rarely, a nevus can develop into malignant melanoma, so any changing nevi should be promptly re-evaluated. 2. Seborrheic keratosis Stuck on verrucous, variably pigmented papules and plaques. Patient was counseled regarding these benign growths. Removal is normally not necessary, but they may be removed if they are symptomatic or for cosmetic reasons. 3. Actinic keratosis (6) Left Zygomatic Area, Mid Occipital Scalp (2), Mid Parietal Scalp (3) Erythematous scaly papules Patient was counseled regarding these sun-induced growths that can develop into squamous cell carcinoma if left untreated. Discussed treatment with cryotherapy. It was emphasized that any treated lesions that fail to resolve should be re-evaluated. Cryotherapy performed today; see procedure note Diagnosis: Actinic keratosis Indication: Precancerous Location: see skin exam Consent: Verbal consent was obtained and risks were discussed, including, but not limited to risks of scarring, darker or manufacturing plant manager pigmentary changes, recurrence, incomplete removal and infection. Method: Liquid nitrogen was used to treat the lesion(s) with two 5-10 second freeze-thaw cycles. Number of lesions treated: 6 Post-procedure instructions: Instructions were given orally and in writing. The office will be contacted if the lesion fails to resolve despite treatment, or if a side effect develops such as abnormal crusting, scabbing, redness or tenderness Cryotherapy, skin lesion - Left Zygomatic Area, Mid Occipital Scalp (2), Mid Parietal Scalp (3) Next Visit: 1 year documented in this encounter [facility] 02-17-2024 Hospital Discharge instructions Patient Education 02/17/2024 10:29:04 Benign Prostatic Hyperplasia Benign Prostatic Hyperplasia Benign [...] urethra. Follow these instructions at home: Take buxp-ndf-wzhzhhw and prescription medicines only as told by [...] provider. Document Revised: 12/18/2021 Document Reviewed: 12/18/2021 ethology Patient Education 2023 Qpyn. Follow Up Care 05/27/2023 10:44:24 With:Chandler CHAVEZ, TAMEKA Mendoza, URO Address: [address], [place] [phone] When: Unknown Comments:6 mos (no labs) [facility] 09-04-2024 Note Patient Education Urology Benign Prostatic Hyperplasia Benign [...] Follow these instructions at home: ? Take kgja-qrg-wumfxwx and prescription medicines only as told by [...] better with treatment. ? You develop side effec (more content not included)... [facility] 08-13-2023 Hospital Discharge instructions Patient Education 08/13/2023 [...] urethra. Follow these instructions at home: Take znmj-vfj-lsezbys and prescription medicines only as told by [...] provider. Document Revised: 12/18/2021 Document Reviewed: 12/18/2021 ethology Patient Education 2022 Qpyn. Follow Up Care 08/11/2023 16:25:46 With:Chandler CHAVEZ, TAMEKA Mendoza, URO Address: When: Unknown [facility] 07-28-2023 Miscellaneous Notes PA denied, pharmacy was billing incorrectly. Medicare paid for OLT and tacrolimus should be billed under part B. Pharmacy billing incorrectly. Yulisa Lewis RN, BSN, [facility] Liver Energy Advisor Tacrolimus PA submitted via [employer] website. [employer]: [id number] Awaiting coverage determination. Yulisa Lewis RN, BSN, [facility] Liver Energy Advisor documented in this encounter [facility] 05-27-2023 Hospital Discharge instructions Patient Education [...] urethra. Follow these instructions at home: Take hzau-nww-oesmpnd and prescription medicines only as told by [...] provider. Document Revised: 12/18/2021 Document Reviewed: 12/18/2021 ethology Patient Education 2022 Qpyn. Follow Up Care 02/25/2023 09:53:13 With:Chandler CHAVEZ, TAMEKA Mendoza, URO Address: When:Within 9 Month(s) Comments:w/PSA F&T [facility] 04-10-2023 History of Present illness [...] (CMS/HCC) 6. Pacemaker documented in this encounter [facility] Work Phone: 04-10-2023 Instructions Reina Wagner LPN [...] of your visit. documented in this encounter [facility] Work Phone: 02-25-2023 Hospital Discharge instructions Patient [...] treatment? Where to find more information [employer] [place]: www.cancer.org [employer] [employer]: www.auanet.org Contact a health care [...] provider. Document Revised: 11/25/2021 Document Reviewed: 11/25/2021 ethology Patient Education 2022 Qpyn. Follow Up Care 11/18/2022 14:45:41 With:Chandler CHAVEZ, TAMEKA Mendoza, URO Address: When:Within 3 Month(s) [email or web address] Miscellaneous Notes Spoke with patient who [...] patent and also faxed to local lab [phone]. Pt verbalized understanding, no further questions at this time. Yulisa Lewis RN, BSN, [facility] Liver Energy Advisor documented in this encounter [facility] 01-01-2023 Evaluation note Encounter Date Diagnosis Assessment Notes Dec, Change in bowel habits (ICD-10 - R19.4) Dec, Other dysphagia (ICD-10 - R13.19) [employer] Other 06-16-2023 Evaluation note* Encounter Date Diagnosis Assessment Notes Treatment Notes Treatment Clinical Notes Nov, Age-related osteoporosis without current pathological fracture (ICD-10 - M81.0) [employer] Other 04-26-2023 Hospital Discharge instructions Patient Education [...] including vitamins, herbs, eye drops, creams, and qzty-jqm-cqplxqi medicines. Any problems you or family members [...] provider tells you to take them. Taking dekv-lhz-fykakbr medicines, vitamins, herbs, and supplements. Surgery safety [...] provider. Document Revised: 02/25/2022 Document Reviewed: 02/25/2022 ethology Patient Education 2022 Qpyn. Follow Up Care 09/22/2022 08:19:53 With:Chandler CHAVEZ, TAMEKA Mendoza, URO Address: [address], [place] [phone] When: Unknown [facility] 04-10-2023 Hospital Discharge instructions Patient Education 09/22/2022 08:38:01 [...] Up Care 09/10/2022 10:23:36 With:Sugey Arteaga Address: [address] [place] [phone] Business (1) [address], [address] [address] [phone] Business (1) When: Unknown Comments:Office to schedule follow up in 2-4 wks to review MRI prostate and BPH procedures [facility]03-29-2023 Hospital Discharge instructions Patient Education 09/10/2022 [...] including vitamins, herbs, eye drops, creams, and emvt-jna-bwnpbax medicines. This also includes: ?Medicines to assist [...] 07/04/2005 Document Revised: 05/14/2018 Document Reviewed: 03/08/2018 ethology Patient Education 2020 Qpyn. 09/10/2022 10:13:27 Benign Prostatic Hyperplasia Benign Prostatic [...] urethra. Follow these instructions at home: Take mvce-azo-vqjnemi and prescription medicines only as told by [...] 06/01/2006 Document Revised: 04/26/2019 Document Reviewed: 07/06/2017 [employer] Patient Education 2020 [employer]. Follow Up Care 02/26/2022 15:32:46 With:Chandler CHAVEZ, TAMEKA Mendoza, URO Address: When:Within 6 Month(s) Comments:w/BI [facility] [place] 09-14-2022 Hospital Discharge instructions Patient Education 02/26/2022 [...] have oneof these risk factors: ?Being of -[place] descent. ?Having a family history of prostate [...] you: Are older than age 55. Are -Bhutanese. Have a father, brother, or uncle who [...] 03/12/2018 Document Revised: 05/14/2018 Document Reviewed: 03/12/2018 ethology Patient Education 2020 [employer] Follow Up Care 01/02/2022 11:31:28 With:YVONNE PEREZ, VINICIUS Lemons, URL Address: [address] [place] [address] When:6 months Comments:W/ PSA [facility] 07-12-2022 Hospital Discharge instructions Patient Education 12/24/2021 [...] including vitamins, herbs, eye drops, creams, and nagw-fke-qlbpqzw medicines. This also includes: ?Medicines to assist [...] 07/04/2005 Document Revised: 05/14/2018 Document Reviewed: 03/08/2018 ethology Patient Education 2020 Qpyn. Follow Up Care 06/18/2021 08:41:53 With:Long More MD, MARIELLA Argueta Address: [facility] [address] , [place] [address]- When: Unknown [facility] 05-05-2022 Miscellaneous Notes* Telephone Encounter - Yulisa Lewis RN - 10/17/2021 8:51 AM EDT FK reviewed, no changes. [facility] History of Past illness Narrative* Problem [...] HE grade 4, serum ammonia 228 at [facility] , admitted 08/13 morning. - Per [...] - Intubated on 08/[address] [facility] for airway protection. - Tolerating PSV. PLAN: [...] of this encounter (statuses as of 09/16/2021) [facility] History of Past illness Narrative* Problem [...] HE grade 4, serum ammonia 228 at [facility] , admitted 3/ morning. - Per [...] - Intubated on 08/[address] [facility] for airway protection. - Tolerating PSV. PLAN: [...] of this encounter (statuses as of 10/17/2021) [facility] History of Past illness Narrative* Problem [...] HE grade 4, serum ammonia 228 at [facility] , admitted 3/ morning. - Per [...] - Intubated on 08/[address] [facility] for airway protection. - Tolerating PSV. PLAN: [...] of this encounter (statuses as of 11/08/2021) [facility] History of Past illness Narrative* Problem [...] HE grade 4, serum ammonia 228 at [facility] , admitted 3/ morning. - Per family, minor confusion since the last 6 months inspite of being on medications. - Intubated en route to [facility] for airway protection 2/2 AMS. - Diagnostic para, culture NGTD, negative for SBP by counts. - Back to baseline MS 3/ -extubated PLAN: - Lactulose, zinc and rifaximin. - Follow cultures. DVT prophylaxis 08/14/2012 02/18/2017 Overview: Plan: - SQ heparin. - Pepcid for GI prophylaxis. Mechanically assisted ventilation 08/14/2012 02/18/2017 Overview: - Intubated on 08/[address] [facility] for airway protection. - Tolerating PSV. PLAN: [...] of this encounter (statuses as of 09/04/2022) [facility] History of Past illness Narrative* Problem [...] HE grade 4, serum ammonia 228 at [facility] , admitted 3/ morning. - Per [...] - Intubated on 08/[address] [facility] for airway protection. - Tolerating PSV. PLAN: [...] of this encounter (statuses as of 02/24/2023) [facility] History of Past illness Narrative* Problem [...] HE grade 4, serum ammonia 228 at [facility] , admitted 08/13 morning. - Per family, minor confusion since the last 6 months inspite of being on medications. - Intubated en route to [facility] for airway protection 07/17 AMS. - Diagnostic para, culture NGTD, negative for SBP by counts. - Back to baseline MS 08/17 -extubated PLAN: - Lactulose, zinc and rifaximin. - Follow cultures. DVT prophylaxis 08/14/2012 02/18/2017 Overview: Plan: - SQ heparin. - Pepcid for GI prophylaxis. Mechanically assisted ventilation 08/14/2012 02/18/2017 Overview: - Intubated on 08/[address] [facility] for airway protection. - Tolerating PSV. PLAN: [...] of this encounter (statuses as of 07/28/2023) [facility] History of Past illness Narrative* Problem [...] HE grade 4, serum ammonia 228 at [facility] , admitted 3/ morning. - Per [...] - Intubated on 08/[address] [facility] for airway protection. - Tolerating PSV. PLAN: [...] of this encounter (statuses as of 08/17/2023) [facility] No data available for this section [facility] evaluation + Plan note Future Appointments Appointment Date:08/26/2022 08:00:00 AM Scheduled Provider:Mike Alves Jr., MD Location:[facility] Appointment Type:URO Office Visit Diagnostic Tests Pending * PSA Total 02/26/22 [facility] evaluation + Plan note Future Appointments Appointment Date:09/11/2022 08:00:00 AM Scheduled Provider: Location:[facility] Appointment Type:Urology CALL PAT FT Appointment Date:09/15/2022 09:45:00 AM Scheduled Provider: Location:[facility] Appointment Type:Urology FT Diagnostic Tests Pending * PSA Total 09/10/22 [facility] evaluation + Plan note Future Appointments Appointment Date:10/08/2022 08:00:00 AM Scheduled Provider:Sugey Arteaga MD Location:[facility] App[facility]ments Appointment Date:05/27/2023 09:45:00 AM Scheduled Provider:Sugey Arteaga MD Location:[facility] Appointment Type:URO Office Visit [facility] evaluation + Plan note Future Appointments Appointment Date:02/17/2024 09:45:00 AM Scheduled Provider:Sugey Arteaga MD Location:[facility] Appointment Type:URO Office Visit Diagnostic Tests Pending * PSA Free & Total 05/27/23 [facility] evaluation + Plan note Future Appointments Appointment Date:02/17/2024 09:45:00 AM Scheduled Provider:Sugey Arteaga MD Location:[facility] Appointment Type:URO Office Visit Future Scheduled Tests Laboratory* PSA Free & Total 12/14/23 [facility] Evaluation + Plan note Future Appointments Appointment Date:08/17/2024 08:00:00 AM Scheduled Provider:Sugey Arteaga MD Location:[facility] Appointment Type:URO Office Visit Future Scheduled Tests Laboratory* PSA Free & Total 12/14/23 [facility] evaluation note* Diagnosis Liver replaced by transplant (HCC) Liver replaced by transplant [facility] Diagnosis Need for prophylactic immunotherapy Transplanted liver (HCC) Liver replaced by transplant [facility] noteNo assessment information [facility] Work Phone: Evaluation note* Diagnosis Liver replaced by transplant (HCC) Liver replaced by transplant [facility] noteNo InformationNoRenovoRx [employer] [place] Other Evaluation note* Diagnosis Sick sinus syndrome (CMS/HCC)- Primary Sinoatrial node dysfunction Essential hypertension Unspecified essential hypertension Mixed hyperlipidemia Overweight with body mass index (BMI) of 26 to 26.9 in adult Liver transplanted (CMS/HCC) Liver replaced by transplant Pacemaker Cardiac pacemaker in situ documented in this encounter [facility] Work Phone: Evaluation note* Diagnosis Liver replaced by transplant (HCC) Liver replaced by transplant [facility] Diagnosis Need for prophylactic immunotherapy Transplanted liver (HCC) Liver replaced by transplant [facility]* Diagnosis Melanocytic nevus of trunk Benign neoplasm of skin of trunk, except scrotum Seborrheic keratosis Actinic keratosis [facility] Shortness of breath- Primary Sick sinus syndrome (Multi) Sinoatrial node dysfunction Essential hypertension Unspecified essential hypertension Mixed hyperlipidemia Pacemaker Cardiac pacemaker in situ BMI 20.0-20.9, adult Liver transplanted (Multi) Liver replaced by transplant Former smoker Personal history of tobacco use, presenting hazards to health documented in this encounter [facility] Work Phone: Hisxnnr general Narrative - Reported* Type Description Date Medical History HISTORY OF HEP C Medical History LIVER TRANSPLANT Medical History prostatism Medical History liver cancer Surgical History APPENDECTOMY Surgical History HERNIA REPAIR Surgical History LIVER TRANSPLANT Surgical History VEIN STRIPPING 2006 Hospitalization History SEE [facility] [employer] Other History general Narrative - Reported* Type Description Date Medical History HISTORY OF HEP C Medical History LIVER TRANSPLANT Medical History prostatism Medical History liver cancer Medical History PACE MAKER PLACED Surgical History APPENDECTOMY Surgical History HERNIA REPAIR Surgical History LIVER TRANSPLANT Surgical History VEIN STRIPPING 2006 Surgical History PACE MAKER PLACEMENT Hospitalization History SEE AB[facility] [employer] Other History of Present illness Narrative* Patient [...] Modification * 5. [facility] Work Phone: Hospital Discharge instructions No data available for this section [facility] Progress note No data available for this section [facility] reason for referral (narrative)* Consultation (Routine) - Authorized Specialty Diagnoses / Procedures Referred By Contjanet t Referred To Contact Cardiology Diagnoses Sick sinus syndrome (CMS/HCC) Essential hypertension Mixed hyperlipidemia Procedures Follow Up In Cardiology Shea Brannon MD [address] [facility], [address] [address] Shea Brannon MD [address] [facility], [address] [address] Referral ID Status Reason Start Date Expiration Date V isits Requested Visits Authorized [id number] Authorized 04/10/2023 04/09/2024 1 1 [facility] Work Phone: Summary Purpose Family History [...] section and content) DATE CREATED AUTHOR 12/08/2017 [facility] DATE CREATED AUTHOR AUTHOR'S ORGANIZ ATION 04/16/2020 [facility] DATE CREATED AUTHOR AUTHOR'S ORGANIZ ATION 10/24/2022 [facility] DATE CREATED AUTHOR AUTHOR'S ORGANIZ ATION 11/23/[address] [facility] DATE CREATED AUTHOR AUTHOR'S ORGANIZ ATION 02/19/2024 [facility] DATE CREATED AUTHOR AUTHOR'S ORGANIZ ATION 02/24/2024 [facility] DATE CREATED AUTHOR AUTHOR'S ORGANIZ ATION 04/11/2024 [facility] EPIC DATE CREATED AUTHOR AUTHOR'S ORGANIZ ATION 04/16/2024 [facility] DATE CREATED AUTHOR AUTHOR'S ORGANIZ ATION 04/17/2024 [facility] DATE CREATED AUTHOR AUTHOR'S ORGANIZ ATION 04/21/2024 [facility] Source Comments (unrecognize d section and content) In the event this informatio n is protected by the Federal Confidentiality of Alcohol and Drug Abuse Patient Records regulations: The Federal rules restrict any use of the information to criminally investigate or prosecute any alcohol or drug abuse patient.[facility] the event this information is protected by the Federal Confidentiality of Alcohol and Drug Abuse Patient Records regulations: The Federal rules restrict any use of the information to criminally investigate or prosecute any alcohol or drug abuse patient.[facility] the event this information is protected by the Federal Confidentiality of Alcohol and Drug Abuse Patient Records regulations: The Federal rules restrict any use of the information to criminally investigate or prosecute any alcohol or drug abuse patient.[facility] the event this information is protected by the Federal Confidentiality of Alcohol and Drug Abuse Patient Records regulations: The Federal rules restrict any use of the information to criminally investigate or prosecute any alcohol or drug abuse patient.[facility] the event this information is protected by the Federal Confidentiality of Alcohol and Drug Abuse Patient Records regulations: The Federal rules restrict any use of the information to criminally investigate or prosecute any alcohol or drug abuse patient.[facility] the event this information is protected by the Federal Confidentiality of Alcohol and Drug Abuse Patient Records regulations: The Federal rules restrict any use of the information to criminally investigate or prosecute any alcohol or drug abuse patient.[facility] the event this information is protected by the Federal Confidentiality of Alcohol and Drug Abuse Patient Records regulations: The Federal rules restrict any use of the information to criminally investigate or prosecute any alcohol or drug abuse patient.[facility] the event this information is protected by the Federal Confidentiality of Alcohol and Drug Abuse Patient Records regulations: The Federal rules restrict any use of the information to criminally investigate or prosecute any alcohol or drug abuse patient.[facility] the event this information is protected by the Federal Confidentiality of Alcohol and Drug Abuse Patient Records regulations: The Federal rules restrict any use of the information to criminally investigate or prosecute any alcohol or drug abuse patient.[facility] the event this information is protected by the Federal Confidentiality of Alcohol and Drug Abuse Patient Records regulations: The Federal rules restrict any use of the information to criminally investigate or prosecute any alcohol or drug abuse patient.[facility] Reason for Visit (unrecogniz ed section and content) Reason Comments Refill Request Reason Comments Opened In Error Reason Comments Patient Update Orders New standing lab ord er Reason Comments Follow-up 1y Reason Comments Insurance Authorization Tacrolimus Reason Comments Skin Check Reason Comments Annual Exam Specialty Diagnoses / Procedures Referred By Contac t Referred To Contact Cardiology Diagnoses Sick sinus syndrome (Multi) Essential hypertension Mixed hyperlipidemia Procedures Follow Up In Cardiology Shea Brannon MD [address] [place] [address], [address] [address] Phone: tel: fax: Shea Brannon MD [address] [facility], [address] [address] Phone: tel: fax: Referral ID Status Reason Start Date Expiration Date V isits Requested Visits Authorized [id number] Authorized 04/10/2023 04/09/2024 1 1 Care Teams (unrecognized sec tion and content) Team Status: Active Member Role Status Dates Elvirafer Foxmaggie , DO Primary Care Provider Active Team Status: Inactive Member Role Status Dates Elvirafer Schultz , DO Primary Care Provider Active Sugey Arteaga MD Attending Provider Active Gateman Relationship Specialty Start Date End Date Bunting, Elvira Ray, DO [address] [place] [address] PCP - General Family Practice 01/06/12 Yulisa Lewis RN [address] [address] Registered Nurse Transplant Center 07/14/19 Gateman Relationship Specialty Start Date End Date Bunting, Elvira Ray, DO [address] [place] [address] PCP - General [facility] 01/06/12 Yulisa Lewis RN [address] [address] Registered Nurse Transplant Center 07/14/19 Team Status: Inactive Member Role Status Dates Elvira Schultz , DO Primary Care Provider Active Shea Brannon MD Attending Provider Active Gateman Relationship Specialty Start Date End Date Bunting, Elvira Ray, DO [address] [place] [address] PCP - General Family Medicine 01/06/12 Yulisa Lewis RN [address] [address] Registered Nurse Transplant Center 07/14/19 Team Status: Inactive Member Role Status Dates Elvira Celestino , DO Primary Care Provider Active Branden Woodward MD Attending Provider Active Team Status: Inactive Member Role Status Dates Elvirafer Foxmaggie , DO Primary Care Provider Active Sheila Magallanes MD Attending Provider Active Gateman Relationship Specialty Start Date End Date Celestino, Elvira Ray, DO [address] [place] [address] PCP - General Family Medicine 01/06/12 Yulisa Lewis RN [facility] [address] [place] [address] Registered Nurse Transplant Center 07/14/19 Gateman Relationship Specialty Start Date End Date Ruddymaggie Elvira DO Erasto [address] [place] [place] [address] PCP - General 06/15/99 Gateman Relationship Specialty Start Date End Date Celestino Elvirafer Maurer DO [address] [facility] [place] [address] PCP - General Family Medicine 01/06/12 Yulisa Lewis RN [facility] [address] [place] [address] Registered Nurse Transplant Center 07/14/19 Gateman Relationship Specialty Start Date End Date Elvira Schultz DO [address] [facility] [place] [address] PCP - General Family Medicine 01/06/12 Yulisa Lewis RN [facility] [address] [place] [address] Registered Nurse Transplant Center 07/14/19 Gateman Relationship Specialty Start Date End Date Lloyd Schultzfer Maurer DO [address] [facility] [place] [address] PCP - General Family Medicine 01/06/12 Yulisa Lewis RN [facility] [address] [place] [address] Registered Nurse Transplant Center 07/14/19 Team Status: Inactive Member Role Status Dates Elvira Schultz DO Primary Care Provider Active Start: November 06, 2023 End: November 06, 2023 Branden Woodward MD Attending Provider Active Start: November 06, 2023 End: November 06, 2023 Gateman Relationship Specialty Start Date End Date Elvira Schultz DO [address] [facility] [place] [address] PCP - General Family Medicine 01/06/12 Yulisa Lewis RN [facility] [address] [place] [address] Registered Nurse Transplant Center 07/14/19 Team Status: Inactive Member Role Status Dates Elvira Schultz DO Primary Care Provider Active Start: February 05, 2024 End: February 05, 2024 Branden Woodward MD Attending Provider Active Start: February 05, 2024 End: February 05, 2024 Gateman Relationship Specialty Start Date End Date Elvira Schultz DO [address] [facility] [place] [address] PCP - General 06/15/99 Goals (unrecognized section [...] BE BASED ON THE PRIMARY CLINICAL RECORDS. [facility] [employer] [facility]. provides no warranty or guarantee of the accuracy or completeness of information in this document.
--- NOTE | 2024-04-22 18:28 | ECG_ITS ---
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
--- NOTE | 2024-04-22 18:28 | CT_ITS ---
The [address] [address] Patient Name: SUSAN VAZQUEZ MRN: [id number] date: 1950 Sex: M Assigned Patient Location: ER Current Patient Location: ER Accession/Order Number: [id number] Exam Date: 04/22/2024 19:15 Report Date: 04/22/2024 21:24 At the request of: SY LORENZO Procedure: CT abdomen pelvis w con CT ABDOMEN/PELVIS WITH IV CONTRAST. INDICATION: Upper abdominal pain, history of liver transplant. COMPARISON: 04/13/2018. TECHNIQUE: Contiguous axial images were obtained from the lung bases to the pelvic floor following the intravenous administration of contrast. Coronal and sagittal reformations are provided. FINDINGS: LOWER LUNGS: Clear. LIVER/BILIARY TREE: No mass. No intrahepatic ductal dilatation. GALLBLADDER: Status post cholecystectomy.. CBD: Normal CBD. SPLEEN: Normal in size. PANCREAS: No acute findings. No peripancreatic fluid or inflammation. No pancreatic duct dilatation. Stable 1.2 cm cystic lesion in the pancreatic body.. ADRENALS: Normal. KIDNEYS: No hydronephrosis. No radiopaque calculus. STOMACH AND BOWEL: Stomach is unremarkable. No dilated bowel loops. There is mild small bowel thickening. APPENDIX: Not visualized. PERITONEAL CAVITY: No fluid. No fat stranding. ABDOMINAL WALL: No subcutaneous stranding. No subcutaneous fluid collection. LYMPH NODES: No mesenteric or retroperitoneal lymphadenopathy by CT criteria. ABDOMINAL AORTA: No aneurysm. There is mixing artifact in the SMV first bifurcation. PELVIS: No acute abnormality. Redemonstrated significant prostatomegaly.. MUSCULOSKELETAL: No acute osseous abnormality. CT/CT abdomen pelvis w con IMPRESSION: Mildly thickened small bowel loops. Correlate for enteritis.. Electronically authenticated by: ANNE RHOADES Date: 04/22/2024 21:24
--- NOTE | 2024-04-22 18:29 | ED.ABDPAIN1 ---
HPI - Abdominal Pain General Chief Complaint: Abdominal Pain Stated Complaint: Abdominal Pain Time Seen by Provider: 04/22/24 17:46 Source: patient Mode of arrival: walk-in History of Present Illness HPI narrative: 74-year-old male presents to the emergency department for abdominal pain. It is in the upper abdominal area and it started about an hour and a half ago. 8 years ago he had a liver transplant at the [facility]. He has had no trauma or vomiting. No constipation or diarrhea or fever. Related Data Home Medications ?Medication ?Instructions ?Recorded ?Confirmed aspirin 81 mg capsule 81 mg PO DAILY 04/22/24 04/22/24 finasteride 5 mg tablet mg 04/22/24 metoprolol tartrate 25 mg tablet mg 04/22/24 oxybutynin chloride 5 mg tablet mg 04/22/24 sulfamethoxazole 800 tab 04/22/24 mg-trimethoprim 160 mg tablet tacrolimus 1 mg capsule, mg 04/22/24 immediate-release terazosin 5 mg capsule mg 04/22/24 Allergies Allergy/AdvReac Type Severity Reaction Status Date / Time No Known Drug Allergies Allergy Verified 04/22/24 17:42 Review of Systems ROS Narrative A ten point review of systems is negative except as noted above. PFSH PFSH Social History Little interest or pleasure in doing things: not at all Feeling down, depressed, or hopeless: not at all Exam Narrative Exam Narrative: Nurses note and vital signs reviewed and patient is not hypoxic. General: The patient appears well and in no apparent distress. Patient is resting comfortably on cart. Skin: Warm, dry, no pallor noted. There is no rash noted. Head: Normocephalic, atraumatic Eye: Normal conjunctiva, no drainage Ears, Nose, Mouth, and Throat: oral mucosa is moist. Nares patent. Cardiovascular: Regular Rate and Rhythm Respiratory: Patient is in no distress, no accessory muscle use, lungs are clear to auscultation, no wheezing, rales or rhonchi Back: non-tender GI: No distention. He has tenderness primarily in the upper abdomen and to a much lesser degree the lower abdomen. No masses. Musculoskeletal: The patient has no evidence of calf tenderness, no pitting edema, symmetrical pulses noted bilaterally Neurological: A&O, normal speech Psychiatric: Cooperative Constitutional Vital Signs, click to edit/add: Last Vital Signs Temp 97.8 F 04/22/24 17:45 Pulse 68 04/22/24 17:45 Resp 18 04/22/24 17:45 BP 169/94 H 04/22/24 17:45 Pulse Ox 99 04/22/24 17:45 O2 Del Method Room Air 04/22/24 17:45 Course Vital Signs Vital signs: Vital Signs Temperature 97.8 F 04/22/24 17:45 Pulse Rate 68 04/22/24 17:45 Respiratory Rate 18 04/22/24 17:45 Blood Pressure 169/94 H 04/22/24 17:45 Pulse Oximetry 99 04/22/24 17:45 Oxygen Delivery Method Room Air 04/22/24 17:45 Temperature 97.8 F 04/22/24 17:45 Pulse Rate 68 04/22/24 17:45 Respiratory Rate 18 04/22/24 17:45 Blood Pressure 169/94 H 04/22/24 17:45 Pulse Oximetry 99 04/22/24 17:45 Oxygen Delivery Method Room Air 04/22/24 17:45 MDM - Abdominal Pain MDM Narrative Medical decision making narrative: Tests are ordered including LFTs and CAT scan of the abdomen and the patient is signed out to Dr. Diego at change of shift. Differential Diagnosis Differential diagnosis: Likely abdominal pain, constipation, diverticulitis, gastroenteritis, pancreatitis, small bowel obstruction and other (Hepatitis) Discharge Plan Discharge Patient Disposition: Still a Patient
[2024-04-22 18:33] LABS: Hematocrit 44.4 % (42.0-54.0); Hemoglobin 14.7 g/dL (14.0-18.0); Mean Corpuscular HGB Conc 33.1 g/dL (29.9-35.2); Mean Corpuscular Hemoglobin 30.3 pg (25.9-34.0); Mean Corpuscular Volume 91.5 fL (80.0-94.0); Mean Platelet Volume 9.7 fL (9.5-13.5); Platelet Count 180 10^3/uL (150-450); Red Blood Count 4.85 10^6/uL (4.70-6.10); Red Cell Distribution Width 13.8 % (11.0-15.0); White Blood Count 6.1 10^3/uL (4.0-11.0)
[2024-04-22 18:45] LABS: Band Neutrophils Absolute 0.4 10^3/uL (0.0-0.3); Segmented Neut Absolute Manual 5.06 10^3/uL (1.4-6.5)
[2024-04-22 18:46] LABS: Eosinophils Absolute Manual 0.12 10^3/uL (0.00-0.70); Lymphocytes Absolute Manual 0.42 10^3/uL (1.20-3.80); Monocytes Absolute Manual 0.48 10^3/uL (0.30-0.80)
[2024-04-22 18:48] LABS: Alanine Aminotransferase 14 U/L (16-63); Albumin Globulin Ratio 1.7; Albumin Level 3.8 g/dL (3.4-5.0); Alkaline Phosphatase 57 U/L (46-116); Amylase 84 U/L (25-115); Anion Gap 12.1; Aspartate Amino Transferase 17 U/L (15-37); BUN Creatinine Ratio 23.4; Bilirubin Direct 0.1 mg/dL (0.0-0.2); Bilirubin Total 0.4 mg/dL (0.2-1.0); Calcium 9.5 mg/dL (8.5-10.1); Carbon Dioxide 27.5 mmol/L (21.0-32.0); Chloride 107 mmol/L (98-107); Estimated GFR (African America 58 (>=60 mL/min/1.73m^2); Estimated GFR (Non-African Ame 48 (>=60 mL/min/1.73m^2); Globulin 2.3 g/dL; Glucose 120 mg/dL (74-106); Potassium 4.6 mmol/L (3.5-5.1); Sodium 142 mmol/L (136-145); Total Protein 6.1 g/dL (6.4-8.2)
[2024-04-22 20:27] LABS: Bilirubin Urine NEGATIVE (NEGATIVE); Blood Urine NEGATIVE (NEGATIVE); Clarity Urine CLEAR (CLEAR); Color Urine LT. YELLOW (YELLOW); Glucose Urine UA NEGATIVE (NEGATIVE); Ketones Urine NEGATIVE (NEGATIVE); Leukocyte Esterase Urine NEGATIVE (NEGATIVE); Nitrite Urine NEGATIVE (NEGATIVE); Protein Urine NEGATIVE (NEG/TRACE); Specific Gravity Urine 1.015 (1.005-1.025); Urobilinogen Urine 0.2 EU/dL (0.2-1.0)
[2024-04-22 20:36] LABS: Bacteria Urine TRACE #/HPF (NONE SEEN); Cast Seen? NONE SEEN #/LPF (NONE SEEN); Crystals Seen? None Seen #/HPF (None Seen); Mucus Urine NONE SEEN (NONE SEEN); RBC Urine 0-2 #/HPF (0-2); Squamous Epithelial Cell Urine NONE SEEN #/LPF (NONE/RARE)
[2024-04-22] MEDS: ACETAMINOPHEN 500 MG TABLET 1000 MG PO (21:44)
== END 2024-04-22 21:55 | disposition home or self-care (01) ==
PROVIDERS: Emergency Medicine; Emergency Provider Internal Medicine; PCP Family Medicine
DX: R10.10 Upper abdominal pain, unspecified (principal); Z94.4 Liver transplant status; K52.9 Noninfective gastroenteritis and colitis, unspecified; Z90.49 Acquired absence of other specified parts of digestive tract
CPT/HCPCS: 36415; 74177; 80048; 80076; 81001; 82150; 83690; 85007; 85027; 93005; 99285; Q9967

== ENCOUNTER 2024-06-03 | Emergency (ER) | payer MEDICARE, SELFPAY ==
[2024-06-03] VITALS (68 sets, daily range): BP systolic 154–194; BP diastolic 99–161; PULSE 89–122; TEMP 36.4; O2SAT 93–98; BMI 19.7
--- NOTE | 2024-06-03 00:15 | CT_ITS ---
The [address] [address] Patient Name: SUSAN VAZQUEZ MRN: [id number] date: 1950 Sex: M Assigned Patient Location: ER Current Patient Location: ER Accession/Order Number: [id number] Exam Date: 06/03/2024 00:57 Report Date: 06/03/2024 03:31 At the request of: SY LORENZO Procedure: CT abdomen pelvis w con EXAM: CT abdomen pelvis w con HISTORY: Diffuse abdominal pain, liver transplant COMPARISON: CT abdomen and pelvis examination dated 04/22/2024. CT chest, abdomen, and pelvis examination dated 04/13/2018. TECHNIQUE: Axial CT images through the abdomen and pelvis were obtained after the intravenous administration of contrast. Coronal and sagittal reformats were obtained. Dose reduction techniques were achieved by using automated exposure control and/or adjustment of mA and/or kV according to patient size and/or use of iterative reconstruction technique. FINDINGS: The visualized portions of the lung bases are clear. Cardiac pacemaker leads are partially imaged. There is bilateral gynecomastia. Fluid is seen in the distal esophagus. There is a trace pericardial effusion. Abdomen: There is a subcentimeter hypodensity in the left hepatic lobe that is too small to characterize by CT size criteria. Otherwise, the liver and spleen enhance homogeneously without focal lesion. The patient is status post a cholecystectomy. There is mild biliary prominence which can be seen status post cholecystectomy. The spleen is mildly enlarged measuring up to 13.2 cm. There is a cyst within the pancreatic body measuring up to 1.5 x 1.5 cm, not significantly changed compared to the prior examinations when measured in a similar fashion (series 3, image 43). There is stable mild pancreatic ductal dilatation measuring up to 0.3 cm. There is a cyst within the left hepatic lobe. There are multiple subcentimeter hypodensities in the kidneys that are too small to characterize by CT size criteria. There is a 0.3 cm calculus near the left ureterovesicular junction without hydroureter or hydronephrosis. The adrenal glands are unremarkable. There is no mesenteric or retroperitoneal lymphadenopathy. The appendix is not seen. There is colonic diverticulosis without evidence of diverticulitis. There are areas of pericolonic fat stranding. There are multiple mildly dilated fluid-filled loops of small bowel measuring up to 3.2 cm. There is a possible transition point in the right lower quadrant where there are multiple bowel loops in close procuration. Pelvis: The bladder and rectum are unremarkable. There is no iliac or inguinal lymphadenopathy. There is marked prostatomegaly. There is a small amount of free fluid in the pelvis. There is advanced atherosclerotic disease. Postsurgical changes are noted in the inguinal regions. Bone windows show no aggressive osseous lesions. CT/CT abdomen pelvis w con IMPRESSION: 1. Multiple fluid-filled dilated loops of small bowel with a possible transition point in the right lower quadrant where there are multiple bowel loops in close approximation. These findings are concerning for an at least partial small bowel obstruction, possibly due to adhesions. There are also areas of pericolonic fat stranding. An infectious or inflammatory enterocolitis is possible. 2. Bilateral gynecomastia. 3. Fluid in the distal esophagus suggestive of gastroesophageal reflux. 4. Trace pericardial effusion. 5. Status post cholecystectomy with biliary prominence. 6. Mild splenomegaly. 7. No significant interval change to a pancreatic cystic lesion and mild pancreatic ductal dilatation. 8. There is a 0.3 cm calculus near the left ureteralovesicular junction without hydroureter or hydronephrosis. 9. The appendix is not seen and could be surgically absent. 10. Colonic diverticulosis without evidence of diverticulitis. 11. Marked prostatomegaly. 12. Small amount of free fluid in the pelvis, possibly reactive. Electronically authenticated by: Jane HOLLINS Date: 06/03/2024 03:31
--- NOTE | 2024-06-03 00:15 | ECG_ITS ---
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
--- NOTE | 2024-06-03 00:16 | ED_ITS ---
HPI - Abdominal Pain General Chief Complaint: Abdominal Pain Stated Complaint: ABDOMINAL PAIN Time Seen by Provider: 06/03/24 00:02 Source: patient Mode of arrival: walk-in Limitations: no limitations History of Present Illness HPI narrative: 74-year-old male presents to the emergency department for abdominal pain. Its diffuse and it has been there all day. He has been nauseous but has not had repetitive vomiting. He states he never has a good appetite so he does not have regular bowel movements and that is unchanged. No diarrhea or fever or injury. He had a liver transplant in 2016, 8 years ago. The pain is moderate and continuous. Related Data Home Medications ?Medication ?Instructions ?Recorded ?Confirmed aspirin 81 mg capsule 81 mg PO DAILY 04/22/24 06/03/24 finasteride 5 mg tablet mg 04/22/24 metoprolol tartrate 25 mg tablet mg 04/22/24 oxybutynin chloride 5 mg tablet mg 04/22/24 sulfamethoxazole 800 tab 04/22/24 mg-trimethoprim 160 mg tablet tacrolimus 1 mg capsule, mg 04/22/24 immediate-release terazosin 5 mg capsule mg 04/22/24 Allergies Allergy/AdvReac Type Severity Reaction Status Date / Time No Known Drug Allergies Allergy Verified 06/03/24 00:08 Review of Systems ROS Narrative A ten point review of systems is negative except as noted above. PFSH PFSH Social History Little interest or pleasure in doing things: not at all Feeling down, depressed, or hopeless: not at all Exam Narrative Exam Narrative: Nurses note and vital signs reviewed and patient is not hypoxic. General: The patient appears well and in no apparent distress. Patient is resting comfortably on cart. Skin: Warm, dry, no pallor noted. There is no rash noted. Head: Normocephalic, atraumatic Eye: Normal conjunctiva, no drainage, no scleral icterus Ears, Nose, Mouth, and Throat: oral mucosa is moist. Nares patent. Cardiovascular: Regular Rate and Rhythm Respiratory: Patient is in no distress, no accessory muscle use, lungs are clear to auscultation, no wheezing, rales or rhonchi Back: non-tender GI: Diffuse tenderness without mass or distention Musculoskeletal: The patient has no evidence of calf tenderness, no pitting edema, symmetrical pulses noted bilaterally Neurological: A&O, normal speech Psychiatric: Cooperative Constitutional Vital Signs, click to edit/add: Last Vital Signs Temp 97.6 F 06/03/24 00:03 Pulse 115 H 06/03/24 04:11 Resp 20 06/03/24 00:03 BP 175/104 H 06/03/24 04:11 Pulse Ox 97 06/03/24 00:03 O2 Del Method Room Air 06/03/24 00:03 Course Vital Signs Vital signs: Vital Signs Temperature 97.6 F 06/03/24 00:03 Pulse Rate 89 06/03/24 00:03 Respiratory Rate 20 06/03/24 00:03 Blood Pressure 194/116 H 06/03/24 00:03 Pulse Oximetry 97 06/03/24 00:03 Oxygen Delivery Method Room Air 06/03/24 00:03 Temperature 97.6 F 06/03/24 00:03 Pulse Rate 115 H 06/03/24 04:11 Respiratory Rate 20 06/03/24 00:03 Blood Pressure 175/104 H 06/03/24 04:11 Pulse Oximetry 97 06/03/24 00:03 Oxygen Delivery Method Room Air 06/03/24 00:03 MDM - Abdominal Pain MDM Narrative Medical decision making narrative: Small bowel obstruction is identified. NG tube inserted and he was given IV fluids. I have spoken to Dr. Mansfield at the [facility] who accepts the patient. The patient is stable and agreeable for transfer. The patient is a liver transplant patient. Treatment diagnosis and disposition were discussed thoroughly. Differential Diagnosis Differential diagnosis: Likely abdominal pain, constipation, diverticulitis, gastroenteritis, pancreatitis and small bowel obstruction Lab Data Attestation: I reviewed the patient's lab results. Labs: Lab Results 06/03/24 Range/Units 00:10 WBC 8.9 (4.0-11.0) 10^3/uL RBC 5.00 (4.70-6.10) 10^6/uL Hgb 15.5 (14.0-18.0) g/dL Hct 45.2 (42.0-54.0) % MCV 90.4 (80.0-94.0) fL MCH 31.0 (25.9-34.0) pg MCHC 34.3 (29.9-35.2) g/dL RDW 13.5 (11.0-15.0) % Plt Count 215 (150-450) 10^3/uL MPV 9.7 (9.5-13.5) fL Neut % (Auto) 88.2 H (43.0-75.0) % Lymph % (Auto) 5.5 L (20.5-60.0) % Antelope % (Auto) 4.4 (1.7-12.0) % Eos % (Auto) 1.0 (0.9-7.0) % Baso % (Auto) 0.6 (0.2-2.0) % Neut # (Auto) 7.9 H (1.4-6.5) 10^3/uL Lymph # (Auto) 0.5 L (1.2-3.8) 10^3/uL Antelope # (Auto) 0.4 (0.3-0.8) 10^3/uL Eos # (Auto) 0.1 (0.0-0.7) 10^3/uL Baso # (Auto) 0.1 (0.0-0.1) 10^3/uL Abs Immat Gran (auto) 0.03 (0.00-0.03) 10^3/uL Imm/Tot Granulo (auto) 0.3 (0.0-0.5) % Sodium 140 (136-145) mmol/L Potassium 4.5 (3.5-5.1) mmol/L Chloride 104 (98-107) mmol/L Carbon Dioxide 27.1 (21.0-32.0) mmol/L Anion Gap 13.4 BUN 31.0 H (7.0-18.0) mg/dL Creatinine 1.44 H (0.70-1.30) mg/dL Est GFR ( Amer) 58 L (>=60 mL/min/1.73m^2) Est GFR (Non-Af Amer) 48 L (>=60 mL/min/1.73m^2) BUN/Creatinine Ratio 21.5 Glucose 119 H (74-106) mg/dL Calcium 9.6 (8.5-10.1) mg/dL Total Bilirubin 1.0 (0.2-1.0) mg/dL Direct Bilirubin 0.2 (0.0-0.2) mg/dL AST 14 L (15-37) U/L ALT 13 L (16-63) U/L Alkaline Phosphatase 67 (46-116) U/L Total Protein 6.7 (6.4-8.2) g/dL Albumin 4.3 (3.4-5.0) g/dL Globulin 2.4 g/dL Albumin/Globulin Ratio 1.8 Amylase 63 (25-115) U/L Lipase 19.0 (16.0-77.0) U/L Imaging Data CT scan - abdomen: Radiologist's impression: ITS Impressions Abdomen/Pelvis CT 06/03/24 00:15 IMPRESSION: 1. Multiple fluid-filled dilated loops of small bowel with a possible transition point in the right lower quadrant where there are multiple bowel loops in close approximation. These findings are concerning for an at least partial small bowel obstruction, possibly due to adhesions. There are also areas of pericolonic fat stranding. An infectious or inflammatory enterocolitis is possible. 2. Bilateral gynecomastia. 3. Fluid in the distal esophagus suggestive of gastroesophageal reflux. 4. Trace pericardial effusion. 5. Status post cholecystectomy with biliary prominence. 6. Mild splenomegaly. 7. No significant interval change to a pancreatic cystic lesion and mild pancreatic ductal dilatation. 8. There is a 0.3 cm calculus near the left ureteralovesicular junction without hydroureter or hydronephrosis. 9. The appendix is not seen and could be surgically absent. 10. Colonic diverticulosis without evidence of diverticulitis. 11. Marked prostatomegaly. 12. Small amount of free fluid in the pelvis, possibly reactive. Electronically authenticated by: Jane HOLLINS Date: 06/03/2024 03:31 ECG Data Attestation: I personally reviewed and interpreted this ECG as follows: (EKG on my interpretation shows normal sinus rhythm with a rate of 98 and a PVC. No acute change.) Discharge Plan Discharge Chief Complaint: Abdominal Pain Clinical Impression: Small bowel obstruction Patient Disposition: [facility] Time of Disposition Decision: 04:47 Discharge Location: [facility] Mode of Transportation: EMS
[2024-06-03 00:22] LABS: Basophils Absolute Auto 0.1 10^3/uL (0.0-0.1); Basophils Percent Auto 0.6 % (0.2-2.0); Eosinophils Absolute Auto 0.1 10^3/uL (0.0-0.7); Hematocrit 45.2 % (42.0-54.0); Hemoglobin 15.5 g/dL (14.0-18.0); Immature Granulocytes Abs Auto 0.03 10^3/uL (0.00-0.03); Immature Granulocytes Pct Auto 0.3 % (0.0-0.5); Lymphocytes Absolute Auto 0.5 10^3/uL (1.2-3.8); Lymphocytes Percent Auto 5.5 % (20.5-60.0); Mean Corpuscular HGB Conc 34.3 g/dL (29.9-35.2); Mean Corpuscular Volume 90.4 fL (80.0-94.0); Mean Platelet Volume 9.7 fL (9.5-13.5); Monocytes Absolute Auto 0.4 10^3/uL (0.3-0.8); Monocytes Percent Auto 4.4 % (1.7-12.0); Neutrophils Absolute Auto 7.9 10^3/uL (1.4-6.5); Neutrophils Percent Auto 88.2 % (43.0-75.0); Platelet Count 215 10^3/uL (150-450); Red Cell Distribution Width 13.5 % (11.0-15.0); White Blood Count 8.9 10^3/uL (4.0-11.0)
[2024-06-03] MEDS: ONDANSETRON PF 4 MG/2 ML VIAL IV ×2 (00:28→07:53)
[2024-06-03] MEDS: 0.9 % SODIUM CHLORIDE 1,000 ML 1000 ML IV (00:28)
[2024-06-03] MEDS: MORPHINE SULFATE 4 MG/ML VIAL IV ×2 (00:28→01:59)
[2024-06-03 00:43] LABS: Alanine Aminotransferase 13 U/L (16-63); Albumin Globulin Ratio 1.8; Albumin Level 4.3 g/dL (3.4-5.0); Alkaline Phosphatase 67 U/L (46-116); Amylase 63 U/L (25-115); Anion Gap 13.4; Aspartate Amino Transferase 14 U/L (15-37); BUN Creatinine Ratio 21.5; Bilirubin Direct 0.2 mg/dL (0.0-0.2); Calcium 9.6 mg/dL (8.5-10.1); Carbon Dioxide 27.1 mmol/L (21.0-32.0); Chloride 104 mmol/L (98-107); Estimated GFR (African America 58 (>=60 mL/min/1.73m^2); Estimated GFR (Non-African Ame 48 (>=60 mL/min/1.73m^2); Globulin 2.4 g/dL; Glucose 119 mg/dL (74-106); Potassium 4.5 mmol/L (3.5-5.1); Sodium 140 mmol/L (136-145); Total Protein 6.7 g/dL (6.4-8.2)
[2024-06-03] MEDS: 0.9 % SODIUM CHLORIDE 1,000 ML 100 ML IV (04:02)
--- OUTSIDE RECORDS SUMMARY | 2024-06-03 05:51 | XMS_ITS | CCD ---
Author Organization [facility] Care Team Providers Care Brazer Electronic Name Role Phone SHEA BRANNON Unavailable Unavailable BUNTING, ELVIRA R Unavailable Unavailable Unavailable Unavailable Bunting Elvira VASQUEZ Primary Care Provider Yulisa Lewis RN Unavailable Unavailable BUNTING, ELVIRA R Primary Care Physician Bunting, Elvira R Unavailable Bunting, DO Felix Primary Care Provider [phone] MD Shea Brannon Attending Provider Bunting Elvira VASQUEZ Primary Care Provider Yulisa Lewis RN Unavailable Unavailable Bunting, DO Felix Primary Care Provider [phone] MD Sugey Arteaga Attending Provider MISC, DOCTOR [...] mason June, DR MIKE Cox Attending Unavaila ble [...] Unavailable BUNTING, DR FELIX Primary Care Unavailable ALEVS JR ., DR MIKE Cox Admitting Unavaila ble ALVES JR ., DR MIKE Cox Attending Unavaila ble WEST, DR SUSAN Ford Consulting Unavailable ALVES JR ., DR MIKE Cox Consulting Unavaila ble AGUBOSIM, COSME Consulting Unavailable PREETIKYMBERLY Consulting Unavailable BUNTING, DR FELIX Primary Care [...] Attending Provider MD Sheila Magallanes Attending Provider [phone] Sheila Magallanes Unavailable Bunting, Dr. Elvira Maurer [...] Sugey Arteaga Attending Provider Bunting DO, Elvira Ray Primary Care Provider Bunting, DO Levira Primary Care Provider MD Branden Woodward Attending Provider Bunting DO, Elvira Ray Primary Care Provider Bunting, DO Elvira Primary Care Provider MD Branden Woodward Attending Provider Bunting, DO Elvira Primary Care Provider MD Branden Woodward Attending Provider Sugey Arteaga Admitting Unavailable Lue Sugey MShaylee Attending Unavailable NateSugey MhSaylee Attending Unavailable LueSugey MShaylee Attending Unavailable LueSugey MShaylee Attending Unavailable LueDeannehy MShaylee Attending Unavailable Lue Sugey MShaylee Attending Unavailable LueSugey MShaylee Attending Unavailable Lue Sugey MShaylee Admitting Unavailable Unavailable Primary Care Provider UnavailJASWINDER Robert Attending Unavailable SHEA BRANNON Attending Unavailable SHEA BRANNON Referring Unavailable BUNTING, ELVIRA RAY Primary Care Unavailable Branden Woodward Admitting Unavail able Branden Woodward Attending Unavail able Bunting, Elvira Primary Care Unavailable Branden Woodward Attending Unavail able Bunting, Elvira Primary Care Unavailable Branden Woodward Admitting Unavail able Branden Woodward Attending Unavail able Bunting, Elvira Primary Care Unavailable Branden Woodward Admitting Unavail able Branden Woodward Attending Unavail able Branden Woodward Admitting Unavail able Bunting, Elvira Primary Care Unavailable SHEA BRANNON Referring Unavailable BUNTING, ELVIRA RAY Primary Care Unavailable Allergies Allergy Classification Reported Allergen(s) Allergy Type Date of Onset Reaction(s) Facility (1 source) No Known Medication Allergies; Translations: [No Known Medication Allergies] Propensity to adverse reactions (disorder) [facility] Repository Medications Current Medications Medication Drug Class(es) Dates Sig (Normalized) Sig (Original) amLODIPine 5 mg oral tablet (20 sources) Dihydropyridine Calcium Channel Sebas Start: 02-18-2017 End: 04-15-2024 take 1 tablet by mouth once daily amLODIPine (NORVASC) 5 mg tablet Take 1 tablet by mouth once daily. 0 02/18/2017 Active Comment on above: Take 1 tablet by elsy th once daily. amylase 810132 unt / lipase 95782 unt / protease 86391 unt delayed release oral capsule (9 sources) Start: 01-02-2023 Zenpep 96610-24574 units capsule delayed-release particles capsule TAKE 1 CAPSULE WITH EACH MEAL AND UP TO 2 SNACKS 5 TIMES DAILY 01/02/2023 Active Start: 11-12-2022 Creon 04125-86 000 units capsule TAKE 1 CAPSULE BY MOUTH 5 TIMES DAILY DIRECTED WITH 3 MEALS AND 2 SNACKS FOR 30 DAYS 11/13/2022 Active ascorbic acid 1000 mg oral tablet (10 sources) Vitamin C Start: 12-11-2022 take 1 [...] Elderberry Active cholecalciferol 0.025 mg chewable tablet (10 sources) Vitamin D Start: 12-11-2022 take 1 [...] elderberry fruit and flower 460-115 mg capsule (3 sources) take 1 capsule by mo uth [...] Status: Ordered finasteride 5 mg oral tablet (10 sources) 5-alpha Reductase Inhibitor Start: 02-25-2023 take 1 tablet by mouth once daily finasteride 5 mg Tab 5 mg = 1 tab(s), Oral, Daily, # 30 tab(s), Refills(s) 11, Pharmacy: [facility]/pharmacy #[id number], 178, cm, 05/27/23 9:52:00 EST, Height/Length Dosing, 80, kg, 05/27/23 9:52:00 EST, Weight Dosing Start Date: 05/27/23 Status: Ordered metoprolol tartrate 25 mg oral tablet (20 sources) beta-Adrenergic Sebas Start: 07-20-2023 take 1 tablet by mouth twice daily metoprolol tartrate (Lopressor) 25 mg tablet Indications: Essential hypertension TAKE 1 TABLET BY MOUTH TWICE A DAY 180 tablet 3 07/20/2023 Active Start: 03-24-2017 End: 04-13-2018 take 25 mg [...] 1 tablet by elsy th twice daily. [facility] Prescription (8 sources) Start: 9 [facility] Prescription Septra 1 tablet by mouth MWF [...] qPM, # 30 tab(s), Refills(s) 11, Pharmacy: [facility]/pharmacy #[id number], 178, cm, 02/17/24 9:47:00 EDT, Height/Length Dosing, 70, kg, 02/17/24 9:47:00 EDT, Weight Dosing Start Date: 02/17/24 Status: Ordered Start: 12-11-2022 oxybutynin (Di tropan) 5 MG tablet Take 5 mg by mouth. 02/25/2023 Active Start: 02-26-2022 take 1 tablet by elsy th at bedtime oxybutynin 5 mg Tab 5 mg = 1 tab(s), Oral, Bedtime, # 30 tab(s), Refills(s) 11, Pharmacy: [facility]/pharmacy #[id number], 185, cm, 02/26/22 15:00:00 EDT, Height/Length Dosing, 99, kg, 02/26/22 15:00:00 EDT, Weight Dosing Start Date: 9/14/22 Status: Ordered take 1 tablet by elsy [...] AFTER MEAL* 09/26/2022 Active polyethylene glycol 3350 032794 mg / potassium chloride 2970 mg / sodium bicarbonate 6740 mg / sodium chloride 5860 mg / sodium sulfate 18582 mg powder for oral solution (7 sources) [...] Start: 04-13-2018 take 1 tablet by elsy once Sulfamethoxazole-Trimethoprim Active 1 T AB PO every Thursday, Thursday, and Friday April 13, 2018 12:00am Comment on above: TAKE ONE TABLET BY M OUTH DAILY ON MONDAYS, WEDNESDAYS AND FRIDAYS TAKE 1 TABLET BY ELSY TH DAILY ON THURSDAY, THURSDAY, AND ROSMERY Sulfamethoxazole-T MP DS (4 sources) Sulfamethoxazole -TMP [...] on above: Take 2 capsules by m [facility] twice daily. (Z94.4 - liver transplant) TAKE 2 CAPSUES BY MO [facility] TWICE DAILY tadalafil 5 mg oral tablet (2 sources) Phosphodiesterase 5 Inhibitor Start: 023 take 1 tablet by mouth once daily tadalafil 5 mg oral tablet 5 mg = 1 tab(s), Oral, Daily, # 30 tab(s), Refills(s) 11, Pharmacy: [facility]/pharmacy #[id number], 185, cm, 09/10/22 9:37:00 EDT, Height/Length [...] time. Active terazosin 5 mg oral capsule (20 sources) alpha-Adrenergic Sebas Start: 06-21-2021 teraz osin [...] capsule Orally Once a day Active Zenpep 18849 UNIT (1 source) Start: 01-01-2023 Zenpep 24877 U NIT 1 WITH EACH MEAL & [...] 12:00am zinc gluconate 50 mg oral tablet (7 sources) take 1 tablet by elsy th [...] arrest, cause unspecified] 04-14-2018 Chronic Cardiac dysrhythmias (19 sources) Sick sinus syndrome; Translations: [Sinoatrial node dysfunction] Onset: 04-09-2023 04-14-2018 Chronic Conduction disorders (14 sources) Cardiac pacemaker in situ; Translations: [Cardiac [...] hyperplasia with lower urinary tract symptoms] Onset: 07-12-2022 Chronic Nutritional deficiencies (1 source) Magnesium deficiency; Translations: [MAGNESIUM DEFICIENCY] Onset: 10-23-2022 Episodic Osteoporosis (4 sources) Primary osteoporosis; Translations: [Age-related osteoporosis without current pathological fracture] Chronic Other aftercare (1 source) Encounter for aftercare following liver transplant; Translations: [ENC AFTERCARE FLW LIVER TRANSPLANT] Onset: 10-23-2022 Chronic Other aftercare (10 sources) Long-term current use of anticoagulant 11-24-2019 Episodic Other aftercare (1 source) 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; Translations: [JAIL CURRENT USE OF ASPIRIN] Onset: 09-29-2022 Episodic Other aftercare (1 source) 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; Translations: [OTH 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 CURRENT DRUG THERAPY] Onset: 09-29-2022 Episodic Other [...] Onset: 10-23-2022 Chronic Other lower respiratory disease (8 sources) Dyspnea; Translations: [Shortness of breath] Onset: 04-15-2024 04-15-2024 Episodic Other lower respiratory disease (2 sources) Shortness of breath; Translations: [Shortness of breath] [...] STATE] Onset: 10-23-2022 Episodic Residual codes; unclassified (3 sources) Body mass index 20-24 - normal; Translations: [Body mass index (BMI) 20.0-20.9, adult] Onset: 04-15-2024 04-15-2024 Episodic Residual codes; unclassified (2 sources) Body mass index (BMI) 20.0-20.9, adult; Translations: [Body mass index (BMI) 20.0-20.9, adult] Onset: 04-15-2024 Episodic Screening and history of mental health and substance abuse codes (19 sources) Ex-smoker; Translations: [Personal history of tobacco [...] 11-10-2012 11-10-2012 Episodic Other aftercare (1 source) jail (current) use of anticoagulants; Translations: [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 CURRNT USE ANTICOAGULANTS] Onset: 01-27-2022 Episodic Other [...] Episodic Other nutritional; endocrine; and metabolic disorders (9 sources) Overweight in adulthood with body mass [...] Onset: 08-14-2012 Resolved: 02-18-2017 06-10-2021 Chronic Unclassified (3 sources) Onset: 04-10-2023 Resolved: 04-15-2024 04-10-2023 Unclassified (3 sources) Drug therapy finding; Translations: [DVT prophylaxis] Onset: 08-14-2012 Resolved: 02-18-2017 06-10-2021 Results Test Name Value Interpretation Reference Range Facility [facility] TRANSTHORACIC ECHO (TTE) COMPLETE [address], [place] [address] TRANSTHORACIC ECHOCARDIOGRAM REPORT Patient Name: SUSAN SHERMAN Reading Physician: [id number] Shea Brannon MD Study Date: 05/20/2024 Ordering Provider: [id number] SHEA BRANNON MRN/PID: [id number] Fellow: Nurse: Date of /Age: 9 1950 / 74 years 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: Kenya West RDCS, ANANTT Gender Assigned at M Additional Staff: : Height: 182.88 cm Admit Date: Weight: 69.40 kg Admission Status: BSA / BMI: 1.90 m2 / 20.75 Department Location: [facility] kg/m2 [facility] Blood Pressure: 114 /72 mmHg Study Type: TRANSTHORACIC ECHO (TTE) COMPLETE Diagnosis/ICD: Shortness of breath-R06.02 Indication: Paroxysmal Atrial Fibrillation, Sick Sinus Syndrome, HTN, Hyperlipoidemia, Pacemaker, Former Smoker, History of Liver Transplant CPT Codes: Echo Complete w Full [id number] Study Detail: The following Echo studies were performed: 2D, M-Mode, Doppler and color flow. PHYSICIAN INTERPRETATION: Left Ventricle: The left ventricular systolic function is normal, with a visually estimated ejection fraction of 60%. There are no regional wall motion abnormalities. The left ventricular cavity size is normal. There is mildly increased posterior left ventricular wall thickness. There is left ventricular concentric remodeling. Spectral Doppler shows a Grade I (impaired relaxation pattern) of left ventricular diastolic filling with normal left atrial filling pressure. Mild LVH with basilar septal hypertrophy. Left Atrium: The left atrium is normal in size. Right Ventricle: The right ventricle is normal in size. There is normal right ventricular global systolic function. Right ventricular lead was seen. Right Atrium: The right atrium is normal in size. Aortic Valve: The aortic valve is trileaflet. There is mild aortic valve cusp calcification. The aortic valve dimensionless index is 0.71. There is trace aortic valve regurgitation. The peak instantaneous gradient of the aortic valve is 3 mmHg. The mean gradient of the aortic valve is 2 mmHg. Mitral Valve: The mitral valve is normal in structure. There is mild mitral annular calcification. The peak instantaneous gradient of the mitral valve is 3 mmHg. There is trace to mild mitral valve regurgitation. Tricuspid Valve: The tricuspid valve is structurally normal. There is mild tricuspid regurgitation. The Doppler estimated RVSP is slightly elevated right ventricular systolic pressure at 32.2 mmHg. Pulmonic Valve: The pulmonic valve is structurally normal. There is no indication of pulmonic valve regurgitation. Pericardium: No pericardial effusion noted. Aorta: The aortic root is normal. CONCLUSIONS: 1. The left ventricular systolic function is normal, with a visually estimated ejection fraction of 60%. 2. Spectral Doppler shows a Grade I (impaired relaxation pattern) of left ventricular diastolic filling with normal left atrial filling pressure. 3. Mild LVH with basilar septal hypertrophy. 4. There is normal right ventricular global systolic function. 5. Right ventricular lead was seen. 6. Trace to mild mitral valve regurgitation. 7. Mild tricuspid regurgitation is visualized. 8. Slightly elevated right ventricular systolic pressure. 9. No significant changes noted compared to previous study. QUANTITATIVE DATA SUMMARY: 2D MEASUREMENTS: Normal Ranges: Ao Root d: 3.40 cm (2.0-3.7cm) LAs: 3.40 cm (2.7-4.0cm) RVIDd: 3.12 cm (0.9-3.6cm) IVSd: 1.75 cm (0.6-1.1cm) LVPWd: 1.12 cm (0.6-1.1cm) LVIDd: 3.75 cm (3.9-5.9cm) LVIDs: 2.90 cm LV Mass Index: 104.2 g/m2 LV % FS 22.7 % LV SYSTOLIC FUNCTION BY 2D PLANIMETRY (MOD): Normal Ranges: EF-A4C View: 61 % (>=55%) EF-A2C View: 60 % EF-Biplane: 61 % EF-Visual: 60 % LV EF Reported: 60 % LV DIASTOLIC FUNCTION: Normal Ranges: MV Peak E: 0.61 m/s (0.7-1.2 m/s) MV Peak A: 0.82 m/s (0.42-0.7 m/s) E/A Ratio: 0.75 (1.0-2.2) MV e' 0.063 m/s (>8.0) MV lateral e' 0.07 m/s MV medial e' 0.05 m/s E/e' Ratio: 9.68 (<8.0) MITRAL VALVE: Normal Ranges: MV Vmax: 0.93 m/s (<=1.3m/s) MV peak P.5 mmHg (<5mmHg) MV mean P.0 mmHg (<48mmHg) MITRAL INSUFFICIENCY: Normal Ranges: MR Vmax: 247.00 cm/s AORTIC VALVE: Normal Ranges: AoV Vmax: 0.93 m/s (<=1.7m/s) AoV Peak P.5 mmHg (<20mmHg) AoV Mean P.0 mmHg (1.7-11.5mmHg) LVOT Max Ahmet: 0.71 m/s (<=1.1m/s) AoV VTI: 22.80 cm (18-25cm) LVOT VTI: 16.30 cm LVOT Diameter: 2.40 cm (1.8-2.4cm) AoV Area, VTI: 3.23 cm2 (2.5-5.5cm2) AoV Area,Vmax: 3.45 cm2 (2.5-4.5cm2) AoV Dimensionless Index: 0.71 AORTIC INSUFFICIENCY: AI Vmax: 2.89 m/s AI Half-time: 552 msec AI Decel Rate: 153.00 cm/s2 TRICUSPID VALVE/RVSP: Normal Ranges: Peak TR Velocity: 2.70 m/s RV Syst Pressure: 32 mmHg (< 30mmHg) PULMONIC VALVE: Normal Ranges: PV Max Ahmet: 0.6 m/s (0.6-0.9m/s) PV Max P.5 mmHg 64 (more content not included)... Normal [facility] US Heart Transthoracicon Aortic Valve Area by Continuity of Peak Velocity 3.45 cm2 [facility] Work Phone: Aortic Valve Area by Continuity of VTI 3.23 cm2 [facility] Work Phone: AV mn grad 2 mmHg [facility] Work Phone: AV pk grad 3 mmHg [facility] Work Phone: AV pk ahmet 0.93 m/s [facility] Work Phone: LV A4C EF 60.5 [facility] Work Phone: LV Biplane EF 61 % [facility] Work Phone: LV EF 60 % [facility] Work Phone: LVIDd 3.75 cm [facility] Work Phone: LVOT diam 2.4 cm [facility] Work Phone: MV avg E/e' ratio 8.4 [facility] Work Phone: MV E/A ratio 0.75 [facility] Work Phone: RVSP 32.2 mmHg [facility] Work Phone: [facility] [address], [address], [place] [address] TRANSTHORACIC ECHOCARDIOGRAM REPORT Patient Name: SUSAN Cox GEORGE Reading Physician: [id number] Brannon MD Study Date: 05/20/2024 Ordering Provider: [id number] SHEA BRANNON MRN/PID: [id number] Fellow: Nurse: Date of /Age: 9 1950 / 74 years 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: Kenya West RDCS, RVT Gender Assigned at M Additional Staff: : Height: 182.88 cm Admit Date: Weight: 69.40 kg Admission Status: BSA / BMI: 1.90 m2 / 20.75 Department Location: [facility] kg/m2 [facility] [place] Blood Pressure: 114 /72 mmHg Study Type: TRANSTHORACIC ECHO (TTE) COMPLETE Diagnosis/ICD: Shortness of breath-R06.02 Indication: Paroxysmal Atrial Fibrillation, Sick Sinus Syndrome, HTN, Hyperlipoidemia, Pacemaker, Former Smoker, History of Liver Transplant CPT Codes: Echo Complete w Full Doppler-[id number] Study Detail: The following Echo studies were performed: 2D, M-Mode, Doppler and color flow. PHYSICIAN INTERPRETATION: Left Ventricle: The left ventricular systolic function is normal, with a visually estimated ejection fraction of 60%. There are no regional wall motion abnormalities. The left ventricular cavity size is normal. There is mildly increased posterior left ventricular wall thickness. There is left ventricular concentric remodeling. Spectral Doppler shows a Grade I (impaired relaxation pattern) of left ventricular diastolic filling with normal left atrial filling pressure. Mild LVH with basilar septal hypertrophy. Left Atrium: The left atrium is normal in size. Right Ventricle: The right ventricle is normal in size. There is normal right ventricular global systolic function. Right ventricular lead was seen. Right Atrium: The right atrium is normal in size. Aortic Valve: The aortic valve is trileaflet. There is mild aortic valve cusp calcification. The aortic valve dimensionless index is 0.71. There is trace aortic valve regurgitation. The peak instantaneous gradient of the aortic valve is 3 mmHg. The mean gradient of the aortic valve is 2 mmHg. Mitral Valve: The mitral valve is normal in structure. There is mild mitral annular calcification. The peak instantaneous gradient of the mitral valve is 3 mmHg. There is trace to mild mitral valve regurgitation. Tricuspid Valve: The tricuspid valve is structurally normal. There is mild tricuspid regurgitation. The Doppler estimated RVSP is slightly elevated right ventricular systolic pressure at 32.2 mmHg. Pulmonic Valve: The pulmonic valve is structurally normal. There is no indication of pulmonic valve regurgitation. Pericardium: No pericardial effusion noted. Aorta: The aortic root is normal. CONCLUSIONS: 1. The left ventricular systolic function is normal, with a visually estimated ejection fraction of 60%. 2. Spectral Doppler shows a Grade I (impaired relaxation pattern) of left ventricular diastolic filling with normal left atrial filling pressure. 3. Mild LVH with basilar septal hypertrophy. 4. There is normal right ventricular global systolic function. 5. Right ventricular lead was seen. 6. Trace to mild mitral valve regurgitation. 7. Mild tricuspid regurgitation is visualized. 8. Slightly elevated right ventricular systolic pressure. 9. No significant changes noted compared to previous study. QUANTITATIVE DATA SUMMARY: 2D MEASUREMENTS: Normal Ranges: Ao Root d: 3.40 cm (2.0-3.7cm) LAs: 3.40 cm (2.7-4.0cm) RVIDd: 3.12 cm (0.9-3.6cm) IVSd: 1.75 cm (0.6-1.1cm) LVPWd: 1.12 cm (0.6-1.1cm) LVIDd: 3.75 cm (3.9-5.9cm) LVIDs: 2.90 cm LV Mass Index: 104.2 g/m2 LV % FS 22.7 % LV SYSTOLIC FUNCTION BY 2D PLANIMETRY (MOD): Normal Ranges: EF-A4C View: 61 % (>=55%) EF-A2C View: 60 % EF-Biplane: 61 % EF-Visual: 60 % LV EF Reported: 60 % LV DIASTOLIC FUNCTION: Normal Ranges: MV Peak E: 0.61 m/s (0.7-1.2 m/s) MV Peak A: 0.82 m/s (0.42-0.7 m/s) E/A Ratio: 0.75 (1.0-2.2) MV e' 0.063 m/s (>8.0) MV lateral e' 0.07 m/s MV medial e' 0.05 m/s E/e' Ratio: 9.68 (<8.0) MITRAL VALVE: Normal Ranges: MV Vmax: 0.93 m/s (<=1.3m/s) MV peak P.5 mmHg (<5mmH (more content not included)... 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 PHYSICIAN INTERPRETATION: Left Ventricle: The left ventricular systolic function is normal, with a visually estimated ejection fraction of 60%. There are no regional wall motion abnormalities. The left ventricular cavity size is normal. There is mildly increased posterior left ventricular wall thickness. There is left ventricular concentric remodeling. Spectral Doppler shows a Grade I (impaired relaxation pattern) of left ventricular diastolic filling with normal left atrial filling pressure. Mild LVH with basilar septal hypertrophy. Left Atrium: The left atrium is normal in size. Right Ventricle: The right ventricle is normal in size. There is normal right ventricular global systolic function. Right ventricular lead was seen. Right Atrium: The right atrium is normal in size. Aortic Valve: The aortic valve is trileaflet. There is mild aortic valve cusp calcification. The aortic valve dimensionless index is 0.71. There is trace aortic valve regurgitation. The peak instantaneous gradient of the aortic valve is 3 mmHg. The mean gradient of the aortic valve is 2 mmHg. Mitral Valve: The mitral valve is normal in structure. There is mild mitral annular calcification. The peak instantaneous gradient of the mitral valve is 3 mmHg. There is trace to mild mitral valve regurgitation. Tricuspid Valve: The tricuspid valve is structurally normal. There is mild tricuspid regurgitation. The Doppler estimated RVSP is slightly elevated right ventricular systolic pressure at 32.2 mmHg. Pulmonic Valve: The pulmonic valve is structurally normal. There is no indication of pulmonic valve regurgitation. Pericardium: No pericardial effusion noted. Aorta: The aortic root is normal. CONCLUSIONS: 1. The left ventricular systolic function is normal, with a visually estimated ejection fraction of 60%. 2. Spectral Doppler shows a Grade I (impaired relaxation pattern) of left ventricular diastolic filling with normal left atrial filling pressure. 3. Mild LVH with basilar septal hypertrophy. 4. There is normal right ventricular global systolic function. 5. Right ventricular lead was seen. 6. Trace to mild mitral valve regurgitation. 7. Mild tricuspid regurgitation is visualized. 8. Slightly elevated right ventricular systolic pressure. 9. No significant changes noted compared to previous study. QUANTITATIVE DATA SUMMARY: 2D MEASUREMENTS: Normal Ranges: Ao Root d: 3.40 cm (2.0-3.7cm) LAs: 3.40 cm (2.7-4.0cm) RVIDd: 3.12 cm (0.9-3.6cm) IVSd: 1.75 cm (0.6-1.1cm) LVPWd: 1.12 cm (0.6-1.1cm) LVIDd: 3.75 cm (3.9-5.9cm) LVIDs: 2.90 cm LV Mass Index: 104.2 g/m2 LV % FS 22.7 % LV SYSTOLIC FUNCTION BY 2D PLANIMETRY (MOD): Normal Ranges: EF-A4C View: 61 % (>=55%) EF-A2C View: 60 % EF-Biplane: 61 % EF-Visual: 60 % LV EF Reported: 60 % LV DIASTOLIC FUNCTION: Normal Ranges: MV Peak E: 0.61 m/s (0.7-1.2 m/s) MV Peak A: 0.82 m/s (0.42-0.7 m/s) E/A Ratio: 0.75 (1.0-2.2) MV e' 0.063 m/s (>8.0) MV lateral e' 0.07 m/s MV medial e' 0.05 m/s E/e' Ratio: 9.68 (<8.0) MITRAL VALVE: Normal Ranges: MV Vmax: 0.93 m/s (<=1.3m/s) MV peak P.5 mmHg (<5mmHg) MV mean P.0 mmHg (<48mmHg) MITRAL INSUFFICIENCY: Normal Ranges: MR Vmax: 247.00 cm/s AORTIC VALVE: Normal Ranges: AoV Vmax: 0.93 m/s (<=1.7m/s) AoV Peak P.5 mmHg (<20mmHg) AoV Mean P.0 mmHg (1.7-11.5mmHg) LVOT Max Ahmet: 0.71 m/s (<=1.1m/s) AoV VTI: 22.80 cm (18-25cm) LVOT VTI: 16.30 cm LVOT Diameter: 2.40 cm (1.8-2.4cm) AoV Area, VTI: 3.23 cm2 (2.5-5.5cm2) AoV Area,Vmax: 3.45 cm2 (2.5-4.5cm2) AoV Dimensionless Index: 0.71 AORTIC INSUFFICIENCY: AI Vmax: 2.89 m/s AI Half-time: 552 msec AI Decel Rate: 153.00 cm/s2 TRICUSPID VALVE/RVSP: Normal Ranges: Peak TR Velocity: 2.70 m/s RV Syst Pressure: 3 (more content not included)... [facility] Work Phone: [facility] Work Phone: [phone] Wilbert 04-18-2024 JULIENNE Telephone (TXCTMN) SUSAN SHERMAN ([id number]) 1950 M Date Time Provider Department 04/18/24 LIVER TXP COORDINATOR TXCTMN During your visit today, we recorded the following information about you: SarayJohnnya 04/18/2024 8:08 AM Raz Camille is calling in from [facility] lab and need standing lab order fax over. The fax number is [phone] Sonali So Allergies As of Date: 04/18/2024 [...] LPN 02/11/2012 Problem List As Of Date 04/18/2024 Noted Resolved Bacteremia [R78.81] 01/06/2007 02/18/2017 Other streptococcus infection in conditions cla*01/06/2007 02/18/2017 Cirrhosis of liver without mention of alcohol [*10/18/2007 02/18/2017 UNILAT INGUINAL HERNIA [K40.90] 02/02/2008 SUMMARY [V999.95] 08/14/2012 Hepatic encephalopathy (HCC) [K76.82] 08/14/2012 02/18/2017 DVT prophylaxis [[id number]] 08/14/2012 02/18/2017 Mechanically assisted ventilation [Z99.11] 08/14/2012 [...] Status:Closed by SONALI SO on 04/18/24 Normal [facility] (Bld) [Mass/Vol] 5.8 ng/mL Normal 5.0-20.0 [facility] Comment on above: Order Comment: [...] i. Performed By: #### 1 1253-2 #### [facility] CLIA [id number] [address] [place] [address] [place] No Panel Informationon 04-11 [facility] 02-25-2024 CNCO Letter Text Normal [facility] Ambulatory Visit Summaryon 0 02-17-2024 Ambulatory Visit Summary Ambulatory Visi t Summary SUSAN SHERMAN :1950 Visit Date:02/17/2024 Ambulatory Visit Instructions Your [...] Follow-Up Appointments Thursday 8:00 AM EST With: Sugey Arteaga MD Where: [facility] [address] [place] [address]- You Need to Schedule the Following Appointments Follow Up with Sugey Arteaga MD, URL, URO When: Comments: 6 mos (no labs) Where: [address] [place] [address]- [phone] Medications What How Much When Instructions Changed oxybutynin (oxybutynin 5 mg ER Tab) 1 Tablets By Mouth Once a day (in the evening) Pickup at [facility]/pharmacy #[id number] Unchanged aspirin (aspirin 81 mg oral tablet) [...] physician if questions or concerns Pharmacy Information [facility]/pharmacy #[id number]: [address], [place] [id number] [phone] Allergies No Known Medication Allergies Problems Ongoing [...] men o (more content not included)... Normal [facility] CHEMISTRYOrdered By: SYSTEM SYSTEM on 02-17-2024 Free PSA [Mass/Vol] 4.3 ng/mL Invalid Interpretation Code Remisol Chem Comment on above: Interpretive Data: T he concentration of free PSA and total PSA determined with assays from different manufacturers can vary due to differences in assay methods and specificity. Values obtained with different saw man's assays cannot be used interchangeably. The methodology used to obtain this result was chemiluminescence using judo's Access Hybritech PSA reagent and Access Hybritech free PSA reagent. Free PSA/Total PSA [Mass fraction] 19.5 % Low >=25.0% Remisol Chem Prostate specific Ag [Mass/Vol] 22.0 ng/mL High 0.1 - 3.5 ng/mL [facility] Comment on above: Interpretive Data: T he concentration of PSA determined by different manufacturers can vary due to differences in assay methods and reagent specificity. Values obtained from different assay methods cannot be used interchangeably. The methodology used for this result was chemiluminescence using judo's Access Hybritech PSA reagent. Urology Office/Clinic Noteon [...] Assessment/Plan 73 yo healthy male prior Dr. Alevs pt with chronically elevated PSA and neg [...] Information Chandler CHAVEZ, Sugey Cummins, URL, URO [address] [place] [address]- [phone] Additional Instructions: 6 mos (no labs) Patient Education Benign Prostatic Hyperplasia IKayli, personally scribed for Dr. Arteaga on 02/17/2024 10:30:37. . Documentation recorded by the scribeKayli, accurately reflects the services(s) I performed and [...] transplantation. Medica (more content not included)... Normal [facility] Comment on above: Result Comment: Elec tronically Signed By: Sugey Arteaga MD\.br\Date and Time Signed: 02/17/24 12:34 EDT\.br\Electronically Co-Signed By: Kayli Garcia\.br\Date and Time Co-Signed: 02/17/24 10:30 EDT Tacrolimus Bld-mCncon 2023 Tacrolimus (Bld) [Mass/Vol] 5.7 ng/mL Normal 5.0-20.0 [facility] Comment on above: Order Comment: Specedmond donis Type: BLOOD SPECIMEN Ordering Facility: Post [...] i. Performed By: #### 1 1253-2 #### [facility] CLIA [id number] [address] [place] [address] [place] Tacrolimus Bld-mCncon 2023 Tacrolimus (Bld) [Mass/Vol] 6.7 ng/mL Normal 5.0-20.0 [facility] Comment on above: Order Comment: Speci jewels Type: BLOOD SPECIMEN Ordering Facility: [facility] [...] i. Performed By: #### 1 1253-2 #### [facility] CLIA [id number] [address] [place] [address] [place] Tacrolimus Bld-mCncon 2023 Tacrolimus (Bld) [Mass/Vol] 5.1 ng/mL Normal 5.0-20.0 [facility] Comment on above: Order Comment: [...] i. Performed By: #### 1 1253-2 #### [facility] CLIA [id number] [address] [place] [address] [place] Screenson 08-14-2023 Screens [id number]#1.0 0TIFF Normal [facility] Screens [id number]#1.0 0TIFF Normal [facility] Ambulatory Visit Summaryon 0 08-13-2023 Ambulatory Visit Summary SUSAN SHERMAN :1950 Visit Date:08/13/2023 Ambulatory Visit Instructions Your [...] Follow-Up Appointments Thursday 9:45 AM EDT With: Chandler CHAVEZ, Sugey Cummins Where: [facility] Patient Educationon 08-13-19 Patient Education Urology Benign Prostatic Hyperplasia Benign [...] Follow these instructions at home: ? Take qjjs-alx-zylizdp and prescription medicines only as told by [...] the medicine (more content not included)... Normal [facility] Urology Office/Clinic Noteon 08-13-2023 Urology Office/Clinic Note Chief Complaint Medication clarification HPI Staff Pt is here for medication clarification. Pt stopped into the [place] 08/11/23 with questions about his medications. [...] with voice recognition artificial intelligence software, specifically [employer], [employer] and or [employer]. Substitutions may have occurred due to the [...] and Oxy (more content not included)... Normal [facility] Comment on above: Result Comment: Elec tronically Signed By: Sugey Arteaga MD\.br\Date and Time Signed: 08/13/23 09:48 EST\.br\Electronically Co-Signed By: Jenna Zarco\.br\Date and Time Co-Signed: 08/13/23 09:42 EST Wilbert 07-27-2023 JULIENNE Telephone (TXCTMN) GEORGESUSAN Cox ([id number]) 1950 M Date Time Provider Department 07/27/23 YULISA LEWIS TXCTMN During your visit today, we recorded the following information about you: Yulisa Lewis RN 07/27/2023 4:02 PM Signed Tacrolimus PA submitted via [employer] website. [place]: [id number] Awaiting coverage determination. Yulisa Lewis RN, BSN, [facility] Liver Historiographer Yulisa Lewis RN 07/28/2023 1:58 PM Signed PA denied, pharmacy was billing incorrectly. Medicare paid for OLT and tacrolimus should be billed under part B. Pharmacy billing incorrectly. Yulisa Lewis RN, BSN, [facility] Liver Historiographer Allergies As of Date: 07/27/2023 (No Known Allergies) Date Reviewed: 04/16/2020 Reviewed by: Latisha Hernandez (Rn), RN - Fully Assessed Reason for Visit: Insurance Authorization [[id number]] Cmt: Tacrolimus Prescriptions as of 07/28/2023 - [...] encephalopathy (HCC) [K76.82] 08/14/2012 02/18/2017 DVT prophylaxis [[id number]] 08/14/2012 02/18/2017 Mechanically assisted ventilation [Z99.11] 08/14/2012 [...] Status:Closed by YULISA LEWIS on 07/28/23 Normal [facility] Tacrolimus Bld-[facility] 2023 Tacrolimus (Bld) [Mass/Vol] 6.2 ng/mL Normal 5.0-20.0 [facility] Comment on above: Order Comment: [...] i. Performed By: #### 1 1253-2 #### [facility] CLIA [id number] [address] [place], [place] [address] [place] Screenson 05-29-2023 Screens [id number]#1.0 0TIFF Normal [facility] Screens [id number] 20 [id number]#1.0 0TIFF Normal [facility] Ambulatory Visit Summaryon 1 07-28-2022 Ambulatory Visit Summary GEORGESUSAN Kenny :1950 Visit Date:05/27/2023 Ambulatory Visit Instructions Your Diagnosis BPH with urinary obstruction Elevated PSA Feeling of incomplete bladder emptying ED (erectile dysfunction) Other obstructive and reflux uropathy Tests Performed Urnls Dip Stick Auto w/o Microscopy POC 40924 Your Care Team Attending Physician - Sugey [...] with Sugey Arteaga MD, URL, URO When: In 9 months Comments: [...] Urnls Dip Stick Auto w/o Microscopy POC 78318 (05/27/2023) Bilirubin Urine Dipstick - Negative Blood Urine Dipstick - Negative Glucose Urine Dipstick - Negative Ketones Urine Dipstick - Negative Leukocytes Urine Dipstick - Trace Nitrite Urine Dipstick - Negative Protein Urine Dipstick - Negative Specific [place] Urine Dipstick - 1.025 Urine Appearance Urine [...] older than (more content not included)... Normal [facility] Patient Educationon 05-27-20 Patient Education Urology [...] Follow these instructions at home: ? Take dvve-zkv-ocjnfav and prescription medicines only as told by [...] the medicine (more content not included)... Normal [facility] Urology Office/Clinic Noteon 05-27-2023 Urology Office/Clinic [...] the patient (more content not included)... Normal [facility] Comment on above: Result Comment: Elec [...] Urnls Dip Stick Auto w/o Microscopy POC 03808 Your Care Team Attending Physician - Sugey [...] Urnls Dip Stick Auto w/o Microscopy POC 27935 (02/25/2023) Bilirubin Urine Dipstick - Negative Blood Urine Dipstick - Negative Glucose Urine Dipstick - Negative Ketones Urine Dipstick - Trace - 5 mg/dl Leukocytes Urine Dipstick - Negative Nitrite Urine Dipstick - Negative Protein Urine Dipstick - Negative Specific [place] Urine Dipstick - 1.025 Urine Appearance Urine [...] prostate cance (more content not included)... Normal [facility] Patient Educationon 02-26-20 23 Patient Education [...] Where to find more information ? The [place] [employer]: www.cancer.org ? [place] [employer]: www.auanet.org Contact a health care [...] adds flu (more content not included)... Normal [facility] Screenson 02-25-2023 Screens [id number]#1. 00CD:127 Normal [facility] Screens [id number] 03 [id number]#1. 00CD:127 Normal [facility] Urology Office/Clinic Noteon 02-25-2023 Urology [...] educating the (more content not included)... Normal [facility] Comment on above: Result Comment: Elec tronically Signed By: Sugey Arteaga MD\.br\Date and Time Signed: 02/25/23 10:46 EDT\.br\Electronically Co-Signed By: Marizol Francis\.br\Date and Time Co-Signed: 02/25/23 09:49 EDT\.br\Electronically Co-Signed By: Marizol Francis\.br\Date and Time Co-Signed: 02/25/23 09:50 EDT Creatinine (Bld) [Mass/Vol]O rdered By: Sugey Arteaga on 11-11-2022 Creatinine [Mass/Vol] 1.5 mg/dL 0.6-1.3 [facility] Comment on above: ER/ESD physician is notified/shown all ISTAT results.Critical values may be confirmed by laboratory testing ifdeemed necessary by ER attending doctor. C reactive protein [Mass/vol ume] in Serum or PlasmaOrdered By: Sheila Magallanes on 11-06-2022 CRP [Mass/Vol] < 0.5 mg/dL 0.0-0.5 [facility] Calprotectin [Mass/mass] in StoolOrdered By: Sheila Magallanes on 11-06-2022 Calprotectin (Stl) [Mass/Mass] 31 ug/g 0-120 [facility] Comment on above: Concentration Interp retation Follow-Up< 5 - 50 ug/g Normal None>50 -120 ug/g Borderline Re-evaluate in 4-6 weeks >120 ug/g Abnormal Repeat as clinically indicatedPerformed at: [facility] [id number] Director: Slim Lewis MD, Phone: [phone] Clostridioides difficile tox in B tcdB gene [Presence] in Stool by LUZ MARIA with probe deteOrdered By: Sheila Magallanes on 11-06-2022 C. difficile toxin B tcdB gene LUZ MARIA+probe Ql (Stl) Negative Negative [facility] Comment on above: Testing performed by RT-PCR Elastase.pancreatic [Mass/ma ss] in StoolOrdered By: Sheila Magallanes on 11-06-2022 Elastase.pancreatic (Stl) [Mass/Mass] 132 >200 [facility] Comment on above: Result Units: ug [address] st./g Severe Pancreatic Insufficiency: <100 Moderate Pancreatic Insufficiency: 100 - 200 Normal: >200Performed at: [facility] [id number] Director: Slim Lewis MD, Phone: [phone] Erythrocyte sedimentation ra te by Photometric methodOrdered By: Sheila Magallanes on 11-06-2022 ESR Photometric method (Bld) [Velocity] < 1 mm/hr 0-19 [facility] IgA [Mass/volume] in Serum o r PlasmaOrdered By: Imyung Magallanes on 11-06-2022 IgA [Mass/Vol] 23 mg/dL 61-437 [facility] Comment on above: Result confirmed on concentration.Performed at: [facility] [id number] Director: Jorge Lockwood PhD, Phone: [phone] No Panel InformationOrdered By: yung Magallanes on 11-06-2022 Endomysial IgA Antibody Negative Negative [facility] Ova and Parasite Result 1 [facility] Ova or parasites identificat ionOrdered By: yung Magallanes on 11-06-2022 Ova and parasites identified LM Nom (Unsp spec) [facility] Serum gliadin peptide IgA an tibody assay (units/volume)Ordered By: ynug [facility] on 11-06-2022 Gliadin peptide IgA Qn (S) 5 units 0-19 [facility] Comment on above: Negative 0 - 19 Weak Positive 20 - 30 Moderate to Strong Positive >30 Serum gliadin peptide IgG an tibody assay (units/volume)Ordered By: yung Magallanes on 11-06-2022 Gliadin peptide IgG Qn (S) 4 units 0-19 [facility] Comment on above: Negative 0 - 19 Weak Positive 20 - 30 Moderate to Strong Positive >30 Serum tissue transglutaminas e (tTG) IgA antibody assay (units/volume)Ordered By: [facility] on 11-06-2022 tTG IgA Qn (S) <2 U/mL 0-3 [facility] Comment on above: Negative 0 - 3 Weak Positive 4 - 10 Positive >10 Tissue Transglutaminase (tTG) has been identified as the endomysial antigen. Studies have demonstr- ated that endomysial IgA antibodies have over 99% specificity for gluten sensitive enteropathy. Serum tissue transglutaminas e (tTG) IgG antibody assay (units/volume)Ordered By: [facility] on 11-06-2022 tTG IgG Qn (S) <2 U/mL 0-5 [facility] Comment on above: Negative 0 - 5 Weak Positive 6 - 9 Positive >9 Stool bacteria identificatio n by cultureOrdered By: Sheila Magallanes on 05-25-2023 Bacteria identified Cx Nom (Stl) [facility] Stool sodium measurement (mo les/volume)Ordered By: Sheila Magallanes on 11-06-2022 Sodium (Stl) [Moles/Vol] See comment [facility] Comment on above: See report. Scanned copy available in EMR. Thyrotropin [Units/volume] i n Serum or PlasmaOrdered By: Imad Asaad on 11-06-2022 TSH Qn 3.51 m[IU]/L 0.45-5.33 [facility] HEP C RNA BY PCR QUANT (NON- GRAPHICAL) Won 10-21-2022 HCV Genotype RTNI Normal [facility] Comment on above: Result Comment: Not indicated Performed By: #### MERLE CULVER #### [facility] [address] [place] [address] Dr. Yogi Naidu HCV log10 UPTCAL Normal [facility] Comment on above: Result Comment: Unab le to calculate result since non-numeric result obtained for component test. Performed By: #### MERLE CULVER #### [facility] [address] [place] [address] Dr. Yogi Naidu Hepatitis C Quantitation Not detected Normal [facility] Comment on above: Performed By: #### MELRE CULVER #### [facility] [address] [place] [address] Dr. Yogi Naidu Test Information: Comment Normal [facility] Comment on above: Result Comment: The quantitative range of this assay is 15 IU/mL to 100 million IU/mL. Performed By: #### MERLE CULVER #### [facility] [address] [place] [address] Dr. Yogi Naidu BOX TEST SENT OUTon 10-21-19 23 SENT TO REF LAB 10/20/2022 Normal [facility] Comment on above: Performed By: #### B OX #### [facility] [address] [place] [address] Dr. Yogi Naidu CBC AUTO DIFFon 10-20-2022 BASO # 0.1 103/ul Normal 0.0-0.1 [facility] Comment on above: Performed By: #### C BC #### [facility] [address] [place] [address] Dr. Yogi Naidu Basophils/100 WBC (Bld) 1.1 % Normal 0.2-2.0 [facility] Comment on above: Performed By: #### C BC #### [facility] [address] [place] [address] Dr. Yogi Naidu EO # 0.2 103/ul Normal 0.0-0.7 [facility] Comment on above: Performed By: #### C BC #### [facility] [address] [place] [address] Dr. Yogi Naidu Eosinophils/100 WBC (Bld) 3.6 % Normal 0.9-7.0 [facility] Comment on above: Performed By: #### C BC #### [facility] [address] [place] [address] Dr. Yogi Naidu Erythrocyte distribution width (RBC) [Ratio] 14.2 % Normal 11.0-15.0 [facility] Comment on above: Performed By: #### C BC #### [facility] [address] [place] [address] Dr. Yogi Naidu Hematocrit (Bld) [Volume fraction] 45.4 % Normal 42.0-54.0 [facility] Comment on above: Performed By: #### C BC #### [facility] [address] [place] [address] Dr. Yogi Naidu Hemoglobin (Bld) [Mass/Vol] 15.0 g/dL Normal 14.0-18.0 [facility] Comment on above: Performed By: #### C BC #### [facility] [address] [place] [address] Dr. Yogi Naidu IG # 0.02 10e3/ul Normal 0.00-0.03 [facility] Comment on above: Performed By: #### C BC #### [facility] [address] [place] [address] Dr. Yogi Naidu IG % 0.4 % Normal 0.0-0.5 [facility] Comment on above: Performed By: #### C BC #### [facility] [address] [address] [address] Yogi Naidu LYMPH # 0.7 103/ul Critically low 1.2-3.[address] [facility] Comment on above: Performed By: #### C BC #### [facility] [address] [address] [address] Yogi Naidu Lymphocytes/100 WBC (Bld) 13.3 % Critically low 20.5-60.0 [facility] Comment on above: Performed By: #### C BC #### [facility] [address] [place] [address] Dr. Yogi Naidu MANUAL DIFF REQ NO Normal [facility] Comment on above: Performed By: #### C BC #### [facility] [address] [place] [address] Dr. Yogi Naidu MCH (RBC) [Entitic mass] 29.7 pg Normal 25.9-34.0 [facility] Comment on above: Performed By: #### C BC #### [facility] [address] [place] [address] Dr. Yogi Naidu MCHC (RBC) [Mass/Vol] 33.0 g/dL Normal 29.9-35.2 [facility] Comment on above: Performed By: #### C BC #### [facility] [address] [place] [address] Dr. Yogi Naidu MCV (RBC) [Entitic vol] 89.9 fL Normal 80.0-94.0 [facility] Comment on above: Performed By: #### C BC #### [facility] [address] [place] [address] Dr. Yogi Naidu MONO # 0.3 103/ul Normal 0.3-0.8 [facility] Comment on above: Performed By: #### C BC #### [facility] [address] [place] [address] Dr. Yogi Naidu Monocytes/100 WBC (Bld) 5.8 % Normal 1.7-12.0 [facility] Comment on above: Performed By: #### C BC #### [facility] [address] [address] [address] Yogi Naidu NEUT # 4.1 103/ul Normal 1.4-6.5 [facility] Comment on above: Performed By: #### C BC #### [facility] [address] [id number] [address] Yogi Naidu Neutrophils/100 WBC (Bld) 75.8 % Critically high 43.0-75.0 [facility] Comment on above: Performed By: #### C BC #### [facility] [address] [place] [address] Dr. Yogi Naidu Platelet mean volume (Bld) [Entitic vol] 9.3 fL Critically low 9.5-13.5 [facility] Comment on above: Performed By: #### C BC #### [facility] [address] [place] [address] Dr. Yogi Naidu PLT 174 103/ul Normal 150-450 [facility] Comment on above: Performed By: #### C BC #### [facility] [address] [place] [address] Dr. Yogi Naidu RBC 5.05 106/ul Normal 4.70-6.10 [facility] Comment on above: Performed By: #### C BC #### [facility] [address] [place] [address] Dr. Yogi Naidu WBC 5.4 103/ul Normal 4.0-11.0 [facility] Comment on above: Performed By: #### C BC #### [facility] [address] [place] [address] Dr. Yogi Naidu GGTon 10-20-2022 Gamma glutamyl transferase [Catalytic activity/Vol] 28 U/L Normal 15-85 [facility] Comment on above: Performed By: #### C MP, MG, PHOS, GGT #### [facility] [address] [place] [address] Dr. Yogi Naidu LIPID PROFILEon 10-20-2022 CHOL-HDL RATIO NORM SEE BELOW Normal [facility] Comment on above: Result Comment: 3.3 - 4.4 LOW RISK 4.4 - 7.1 AVERAGE RISK 7.1 - 11.0 MODERATE RISK >11.0 HIGH RISK Performed By: #### C MP, MG, PHOS, GGT #### [facility] [address] [place] [address] Dr. Yogi Naidu Cholesterol [Mass/Vol] 195 mg/dL Normal <=200 [facility] Comment on above: Performed By: #### C MP, MG, PHOS, GGT #### [facility] [address] [place] [address] Dr. Yogi Naidu Cholesterol in HDL [Mass/Vol] 50 mg/dL Normal 40-60 [facility] Comment on above: Performed By: #### C MP, MG, PHOS, GGT #### [facility] [address] [place] [address] Dr. Yogi Naidu Cholesterol in LDL [Mass/Vol] 131.6 mg/dL Normal [facility] Comment on above: Performed By: #### C MP, MG, PHOS, GGT #### [facility] [address] [place] [address] Dr. Yogi Naidu Cholesterol.total/Choles terol in HDL [Mass ratio] 3.9 {ratio} Normal [facility] Comment on above: Performed By: #### C MP, MG, PHOS, GGT #### [facility] [address] [place] [address] Dr. Yogi Naidu HDL NORMAL > or = 60 mg/dl - LO W CARDIOVASCULAR RISK <40 mg/dl - HIGH CARDIOVASCULAR RISK Normal [facility] Comment on above: Performed By: #### C MP, MG, PHOS, GGT #### [facility] [address] [place] [address] Dr. Yogi Naidu LDL CALC NORMAL SEE BELOW Normal [facility] Comment on above: Result Comment: <100 mg/dl OPTIMAL 100 - 129 mg/dl NEAR OR ABOVE OPTIMAL 130 - 159 mg/dl BORDERLINE HIGH 160 - 189 mg/dl HIGH >190 mg/dl VERY HIGH Performed By: #### C MP, MG, PHOS, GGT #### [facility] [address] [place] [address] Dr. Yogi Naidu Triglyceride [Mass/Vol] 67 mg/dL Normal <=150 T [facility] [facility] Comment on above: Performed By: #### C MP, MG, PHOS, GGT #### [facility] [address] [place] [address] Dr. Yogi Naidu VLDL CALC 13.4 mg/dL Normal [facility] Comment on above: Performed By: #### C MP, MG, PHOS, GGT #### [facility] [address] [place] [address] Dr. Yogi Naidu MAGNESIUMon 10-20-2022 Magnesium [Mass/Vol] 1.8 mg/dL Normal 1.8-2.4 [facility] Comment on above: Performed By: #### C MP, MG, PHOS, GGT #### [facility] [address] [place] [address] Dr. Yogi Naidu PHOSPHORUSon 10-20-2022 Phosphate [Mass/Vol] 3.2 mg/dL Normal 2.6-4.7 [facility] Comment on above: Performed By: #### C MP, MG, PHOS, GGT #### [facility] [address] [place] [address] Dr. Yogi Naidu PROF 14(COMP METB)on 023 Albumin [Mass/Vol] 3.8 g/dL Normal 3.4-5.0 [facility] Comment on above: Performed By: #### C MP, MG, PHOS, GGT #### [facility] [address] [place] [address] Dr. Yogi Naidu Albumin/Globulin [Mass ratio] 1.5 {ratio} Normal [facility] Comment on above: Performed By: #### C MP, MG, PHOS, GGT #### [facility] [address] [place] [address] Dr. Yogi Naidu ALP [Catalytic activity/Vol] 64 U/L Normal 46-116 [facility] Comment on above: Performed By: #### C MP, MG, PHOS, GGT #### [facility] [address] [place] [address] Dr. Yogi Naidu ALT [Catalytic activity/Vol] 21 U/L Normal 16-63 [facility] Comment on above: Performed By: #### C MP, MG, PHOS, GGT #### [facility] [address] [place] [address] Dr. Yogi Naidu Anion gap [Moles/Vol] 12.6 mmol/L Normal [facility] Comment on above: Performed By: #### C MP, MG, PHOS, GGT #### [facility] [address] [place] [address] Dr. Yogi Naidu AST [Catalytic activity/Vol] 14 U/L Critically low 15-37 [facility] Comment on above: Performed By: #### C MP, MG, PHOS, GGT #### [facility] [address] [place] [address] Dr. Yogi Naidu Bilirubin [Mass/Vol] 0.6 mg/dL Normal 0.2-1.0 [facility] Comment on above: Performed By: #### C MP, MG, PHOS, GGT #### [facility] [address] [place] [address] Dr. Yogi Naidu Calcium [Mass/Vol] 9.1 mg/dL Normal 8.5-10.1 [facility] Comment on above: Performed By: #### C MP, MG, PHOS, GGT #### [facility] [address] [place] [address] Dr. Yogi Niadu Chloride [Moles/Vol] 110 mmol/L Critically high 98-107 [facility] Comment on above: Performed By: #### C MP, MG, PHOS, GGT #### [facility] [address] [place] [address] Dr. Yogi Naidu CO2 [Moles/Vol] 27.6 mmol/L Normal 21.0-32.0 [facility] Comment on above: Performed By: #### C MP, MG, PHOS, GGT #### [facility] [address] [place] [address] Dr. Yogi Naidu Creatinine [Mass/Vol] 1.06 mg/dL Normal 0.70-1.30 [facility] Comment on above: Performed By: #### C MP, MG, PHOS, GGT #### [facility] [address] [place] [address] Dr. Yogi Naidu EGFR-AF SLOVAK >60 Normal >=60 [facility] Comment on above: Performed By: #### C MP, MG, PHOS, GGT #### [facility] [address] [place] [address] Dr. Yogi Naidu EGFR-NON AF SLOVAK >60 Normal >=60 [facility] Comment on above: Performed By: #### C MP, MG, PHOS, GGT #### [facility] [address] [place] [address] Dr. Yogi Naidu Globulin (S) [Mass/Vol] 2.6 g/dL Normal [facility] Comment on above: Performed By: #### C MP, MG, PHOS, GGT #### [facility] [address] [place] [address] Dr. Yogi Naidu Glucose [Mass/Vol] 106 mg/dL Normal 74-106 [facility] Comment on above: Performed By: #### C MP, MG, PHOS, GGT #### [facility] [address] [place] [address] Dr. Yogi Naidu Potassium [Moles/Vol] 4.2 mmol/L Normal 3.5-5.1 [facility] Comment on above: Performed By: #### C MP, MG, PHOS, GGT #### [facility] [address] [place] [address] Dr. Yogi Naidu Protein [Mass/Vol] 6.4 g/dL Normal 6.4-8.2 [facility] Comment on above: Performed By: #### C MP, MG, PHOS, GGT #### [facility] [address] [place] [address] Dr. Yogi Naidu Sodium [Moles/Vol] 146 mmol/L Critically high 136-145 [facility] Comment on above: Performed By: #### C MP, MG, PHOS, GGT #### [facility] [address] [place] [address] Dr. Yogi Naidu Urea nitrogen [Mass/Vol] 20.0 mg/dL Critically high 7.0-18 .0 [facility] Comment on above: Performed By: #### C MP, MG, PHOS, GGT #### [facility] [address] [address] [address] Yogi Naidu Urea nitrogen/Creatinine [Mass ratio] 18.9 mg/mg Normal [facility] Comment on above: Performed By: #### C MP, MG, PHOS, GGT #### [facility] [address] [place] [address] Dr. Yogi Naidu Prostate specific Ag [Mass/v olume] in Serum or PlasmaOrdered By: Sugey Arteaga on 10-09-2022 Prostate specific Ag [Mass/Vol] 48.840 ng/mL 0.000-4.000 [facility] CULTURE URINEon 09-29-2022 CULTURE URINE Isolate 1 [...] F Nitrofurantoin <=16 S F Normal [facility] Comment on above: Performed By: #### C MP, MG, PHOS, GGT #### [facility] [address] [place] [address] Dr. Yogi Naidu ER URINE PROFILEon 3 Bilirubin Ql (U) Negative Normal NEGATIVE [facility] Comment on above: Performed By: #### MERLE CULVER #### [facility] [address] [place] [address] Dr. Yogi Naidu Clarity (U) SL CLOUDY Abnormal CLEAR [facility] Comment on above: Performed By: #### DASH CULVERRO #### [facility] [address] [place] [address] Dr. Yogi Naidu Color (U) LT. YELLOW Normal YELLOW [facility] Comment on above: Performed By: #### Vesta DE OLIVEIRA UMICRO #### [facility] [address] [address] [address] Yogi KIRAN A micrscopic examination will be performed if indicated. Normal [facility] Comment on above: Performed By: #### Vesta DE OLIVEIRA UMICRO #### [facility] [address] [address] [address] Yogi Naidu Glucose Ql (U) Negative Normal NEGATIVE [facility] Comment on above: Performed By: #### Vesta DE OLIVEIRA UMICRO #### [facility] [address] [address] [address] Yogi Naidu Hemoglobin Ql (U) Negative Normal NEGATIVE [facility] Comment on above: Performed By: #### Vesta DE OLIVEIRA UMICRO #### [facility] [address] [place] [address] Dr. Yogi Naidu Ketones Ql (U) 15 mg/dl Abnormal NEGATIVE [facility] Comment on above: Performed By: #### Vesta DE OLIVEIRA UMICRO #### [facility] [address] [place] [address] Dr. Yogi Naidu LEUKOCYTES MODERATE Abnormal NEGATIVE [facility] Comment on above: Performed By: #### Vesta DE OLIVEIRA UMICRO #### [facility] [address] [place] [address] Dr. Yogi Naidu Nitrite Ql (U) Negative Normal NEGATIVE [facility] Comment on above: Performed By: #### SONU CULVERICRO #### [facility] [address] [place] [address] Dr. Yogi Naidu pH (U) 5.5 [pH] Normal 5-9 [facility] Comment on above: Performed By: #### DASH CULVERRO #### [facility] [address] [place] [address] Dr. Yogi Naidu SPEC GRAVITY 1.030 Abnormal 1.005-<=1.0 25 [facility] Comment on above: Performed By: #### DASH CULVERRO #### [facility] [address] [place] [address] Dr. Yogi Naidu UA PROTEIN TRACE Normal NEGATIVE/ TRACE [facility] Comment on above: Performed By: #### DASH CULVERRO #### [facility] [address] [place] [address] Dr. Yogi Naidu UR MICRO IND INDICATED Normal [facility] Comment on above: Performed By: #### DASH CULVERRO #### [facility] [address] [place] [address] Dr. Yogi Naidu Urobilinogen Qn (U) 0.2 {Kt'U}/dL Normal 0.2 - 1. 0 [facility] Comment on above: Performed By: #### DASH CUVLERRO #### [facility] [address] [place] [address] Dr. Yogi Naidu URINE MICROSCOPIC ONLYon BACTERIA SMALL Abnormal NONE SEEN [facility] Comment on above: Performed By: #### SONU CULVERICRO #### [facility] [address] [place] [address] Dr. Yogi Naidu Bacteria identified Cx Nom (U) CX ALREADY ORDERED Normal [facility] Comment on above: Performed By: #### DASH CULVERRO #### [facility] [address] [place] [address] Dr. Yogi Naidu CAST NONE SEEN Normal NONE SEEN [facility] Comment on above: Performed By: #### Vesta DE OLIVEIRA UMICRO #### [facility] [address] [place] [address] Dr. Yogi Naidu Crystals LM Nom (Urine sed) NONE SEEN Normal NONE SEEN [facility] Comment on above: Performed By: #### Vesta DE OLIVEIRA UMICRO #### [facility] [address] [place] [address] Dr. Yogi Naidu Epithelial cells LM Ql (Urine sed) NONE SEEN Normal NONE SEEN /RARE [facility] Comment on above: Performed By: #### DASH CULVERRO #### [facility] [address] [place] [address] Dr. Yogi Naidu MUCOUS NONE SEEN Normal NONE SEEN [facility] Comment on above: Performed By: #### DASH CULVERRO #### [facility] [address] [place] [address] Dr. Yogi Naidu RBC 0-2 Normal 0-2 [facility] Comment on above: Performed By: #### E DASH DE OLIVEIRARO #### [facility] [address] [place] [address] Dr. Yogi Naidu WBC 50-75 Abnormal NONE SEEN [facility] Comment on above: Performed By: #### DASH CULVERRO #### [facility] [address] [place] [address] Dr. Yogi Naidu BOX TEST SENT OUTon 08-20-19 23 SENT TO REF LAB 08/19/2022 Normal [facility] Comment on above: Performed By: #### B OX #### [facility] [address] [place] [address] Dr. Yogi Naidu CBC AUTO DIFFon 08-19-2022 BASO # 0.1 103/ul Normal 0.0-0.1 [facility] Comment on above: Performed By: #### C MP, MG, PHOS, GGT #### [facility] [address] [place] [address] Dr. Yogi Naidu Basophils/100 WBC (Bld) 0.9 % Normal 0.2-2.0 [facility] Comment on above: Performed By: #### C MP, MG, PHOS, GGT #### [facility] [address] [place] [address] Dr. Yogi Naidu EO # 0.2 103/ul Normal 0.0-0.7 [facility] Comment on above: Performed By: #### C MP, MG, PHOS, GGT #### [facility] [address] [place] [address] Dr. Yogi Naidu Eosinophils/100 WBC (Bld) 2.8 % Normal 0.9-7.0 [facility] Comment on above: Performed By: #### C MP, MG, PHOS, GGT #### [facility] [address] [place] [address] Dr. Yogi Naidu Erythrocyte distribution width (RBC) [Ratio] 13.9 % Normal 11.0-15.0 [facility] Comment on above: Performed By: #### C MP, MG, PHOS, GGT #### [facility] [address] [place] [address] Dr. Yogi Naidu Hematocrit (Bld) [Volume fraction] 46.0 % Normal 42.0-54.0 [facility] Comment on above: Performed By: #### C MP, MG, PHOS, GGT #### [facility] [address] [place] [address] Dr. Yogi Naidu Hemoglobin (Bld) [Mass/Vol] 15.6 g/dL Normal 14.0-18.0 [facility] Comment on above: Performed By: #### C MP, MG, PHOS, GGT #### [facility] [address] [place] [address] Dr. Yogi Naidu IG # 0.02 10e3/ul Normal 0.00-0.03 [facility] Comment on above: Performed By: #### C MP, MG, PHOS, GGT #### [facility] [address] [place] [address] Dr. Yogi Naidu IG % 0.3 % Normal 0.0-0.5 [facility] Comment on above: Performed By: #### C MP, MG, PHOS, GGT #### [facility] [address] [place] [address] Dr. Yogi Naidu LYMPH # 0.9 103/ul Critically low 1.2-3.[address] [facility] Comment on above: Performed By: #### C MP, MG, PHOS, GGT #### [facility] [address] [place] [address] Dr. Yogi Naidu Lymphocytes/100 WBC (Bld) 12.8 % Critically low 20.5-60.0 [facility] Comment on above: Performed By: #### C MP, MG, PHOS, GGT #### [facility] [address] [place] [address] Dr. Yogi Naidu MANUAL DIFF REQ NO Normal [facility] Comment on above: Performed By: #### C MP, MG, PHOS, GGT #### [facility] [address] [place] [address] Dr. Yogi Naidu MCH (RBC) [Entitic mass] 29.7 pg Normal 25.9-34.0 [facility] Comment on above: Performed By: #### C MP, MG, PHOS, GGT #### [facility] [address] [place] [address] Dr. Yogi Naidu MCHC (RBC) [Mass/Vol] 33.9 g/dL Normal 29.9-35.2 [facility] Comment on above: Performed By: #### C MP, MG, PHOS, GGT #### [facility] [address] [place] [address] Dr. Yogi Naidu MCV (RBC) [Entitic vol] 87.6 fL Normal 80.0-94.0 [facility] Comment on above: Performed By: #### C MP, MG, PHOS, GGT #### [facility] [address] [place] [address] Dr. Yogi Naidu MONO # 0.4 103/ul Normal 0.3-0.8 [facility] Comment on above: Performed By: #### C MP, MG, PHOS, GGT #### [facility] [address] [place] [address] Dr. Yogi Naidu Monocytes/100 WBC (Bld) 6.0 % Normal 1.7-12.0 [facility] Comment on above: Performed By: #### C MP, MG, PHOS, GGT #### [facility] [address] [place] [address] Dr. Yogi Naidu NEUT # 5.2 103/ul Normal 1.4-6.5 [facility] Comment on above: Performed By: #### C MP, MG, PHOS, GGT #### [facility] [address] [place] [address] Dr. Yogi Naidu Neutrophils/100 WBC (Bld) 77.2 % Critically high 43.0-75.0 [facility] Comment on above: Performed By: #### C MP, MG, PHOS, GGT #### [facility] [address] [place] [address] Dr. Yogi Naidu Platelet mean volume (Bld) [Entitic vol] 9.3 fL Critically low 9.5-13.5 [facility] Comment on above: Performed By: #### C MP, MG, PHOS, GGT #### [facility] [address] [place] [address] Dr. Yogi Naidu PLT 215 103/ul Normal 150-450 [facility] Comment on above: Performed By: #### C MP, MG, PHOS, GGT #### [facility] [address] [place] [address] Dr. Yogi Naidu RBC 5.25 106/ul Normal 4.70-6.10 [facility] Comment on above: Performed By: #### C MP, MG, PHOS, GGT #### [facility] [address] [place] [address] Dr. Yogi Naidu WBC 6.8 103/ul Normal 4.0-11.0 [facility] Comment on above: Performed By: #### C MP, MG, PHOS, GGT #### [facility] [address] [place] [address] Dr. Yogi Naidu GGTon 08-19-2022 Gamma glutamyl transferase [Catalytic activity/Vol] 32 U/L Normal 15-85 [facility] Comment on above: Performed By: #### C MP, MG, PHOS, GGT #### [facility] [address] [place] [address] Dr. Yogi Naidu MAGNESIUMon 08-19-2022 Magnesium [Mass/Vol] 1.5 mg/dL Critically low 1.8-2.4 [facility] Comment on above: Performed By: #### C MP, MG, PHOS, GGT #### [facility] [address] [place] [address] Dr. Yogi Naidu PHOSPHORUSon 08-19-2022 Phosphate [Mass/Vol] 3.0 mg/dL Normal 2.6-4.7 [facility] Comment on above: Performed By: #### C MP, MG, PHOS, GGT #### [facility] [address] [place] [address] Dr. Yogi Naidu PROF 14(COMP METB)on 023 Albumin [Mass/Vol] 4.2 g/dL Normal 3.4-5.0 [facility] Comment on above: Performed By: #### C MP, MG, PHOS, GGT #### [facility] [address] [place] [address] Dr. Yogi Naidu Albumin/Globulin [Mass ratio] 1.7 {ratio} Normal [facility] Comment on above: Performed By: #### C MP, MG, PHOS, GGT #### [facility] [address] [place] [address] Dr. Yogi Naidu ALP [Catalytic activity/Vol] 68 U/L Normal 46-116 [facility] Comment on above: Performed By: #### C MP, MG, PHOS, GGT #### [facility] [address] [place] [address] Dr. Yogi Naidu ALT [Catalytic activity/Vol] 16 U/L Normal 16-63 [facility] Comment on above: Performed By: #### C MP, MG, PHOS, GGT #### [facility] [address] [place] [address] Dr. Yogi Naidu Anion gap [Moles/Vol] 12.4 mmol/L Normal [facility] Comment on above: Performed By: #### C MP, MG, PHOS, GGT #### [facility] [address] [place] [address] Dr. Yogi Naidu AST [Catalytic activity/Vol] 16 U/L Normal 15-37 [facility] Comment on above: Performed By: #### C MP, MG, PHOS, GGT #### [facility] [address] [place] [address] Dr. Yogi Naidu Bilirubin [Mass/Vol] 0.7 mg/dL Normal 0.2-1.0 [facility] Comment on above: Performed By: #### C MP, MG, PHOS, GGT #### [facility] [address] [place] [address] Dr. Yogi Naidu Calcium [Mass/Vol] 9.2 mg/dL Normal 8.5-10.1 [facility] Comment on above: Performed By: #### C MP, MG, PHOS, GGT #### [facility] [address] [place] [address] Dr. Yogi Naidu Chloride [Moles/Vol] 110 mmol/L Critically high 98-107 [facility] Comment on above: Performed By: #### C MP, MG, PHOS, GGT #### [facility] [address] [place] [address] Dr. Yogi Naidu CO2 [Moles/Vol] 26.6 mmol/L Normal 21.0-32.0 [facility] Comment on above: Performed By: #### C MP, MG, PHOS, GGT #### [facility] [address] [place] [address] Dr. Yogi Naidu Creatinine [Mass/Vol] 1.08 mg/dL Normal 0.70-1.30 [facility] Comment on above: Performed By: #### C MP, MG, PHOS, GGT #### [facility] [address] [place] [address] Dr. Yogi Naidu EGFR-AF SLOVAK >60 Normal >=60 [facility] Comment on above: Performed By: #### C MP, MG, PHOS, GGT #### [facility] [address] [place] [address] Dr. Yogi Naidu EGFR-NON AF SLOVAK >60 Normal >=60 [facility] Comment on above: Performed By: #### C MP, MG, PHOS, GGT #### [facility] [address] [place] [address] Dr. Yogi Naidu Globulin (S) [Mass/Vol] 2.4 g/dL Normal T [facility] Comment on above: Performed By: #### C MP, MG, PHOS, GGT #### [facility] [address] [place] [address] Dr. Yogi Naidu Glucose [Mass/Vol] 100 mg/dL Normal 74-106 [facility] Comment on above: Performed By: #### C MP, MG, PHOS, GGT #### [facility] [address] [place] [address] Dr. Yogi Naidu Potassium [Moles/Vol] 4.5 mmol/L Normal 3.5-5.1 [facility] Comment on above: Performed By: #### C MP, MG, PHOS, GGT #### [facility] [address] [place] [address] Dr. Yogi Naidu Protein [Mass/Vol] 6.6 g/dL Normal 6.4-8.2 [facility] Comment on above: Performed By: #### C MP, MG, PHOS, GGT #### [facility] [address] [place] [address] Dr. Yogi Naidu Sodium [Moles/Vol] 145 mmol/L Normal 136-145 [facility] Comment on above: Performed By: #### C MP, MG, PHOS, GGT #### [facility] [address] [place] [address] Dr. Yogi Naidu Urea nitrogen [Mass/Vol] 22.0 mg/dL Critically high 7.0-18 .0 [facility] Comment on above: Performed By: #### C MP, MG, PHOS, GGT #### [facility] [address] [place] [address] Dr. Yogi Naidu Urea nitrogen/Creatinine [Mass ratio] 20.3 mg/mg Normal [facility] Comment on above: Performed By: #### C MP, MG, PHOS, GGT #### [facility] [address] [place] [address] Dr. Yogi Naidu HEP C RNA BY PCR QUANT (NON- GRAPHICAL) Won 07-23-2022 HCV Genotype RTNI Normal [facility] Comment on above: Result Comment: Not indicated Performed By: #### E MERLE DE OLIVEIRA #### [facility] [address] [place] [address] Dr. Yogi Naidu HCV log10 UPTCAL [facility] Comment on above: Result Comment: Unab le to calculate result since non-numeric result obtained for component test. Performed By: #### E YENYRDASHRO #### [facility] [address] [place] [address] Dr. Yogi Naidu Hepatitis C Quantitation Not detected Normal [facility] Comment on above: Performed By: #### E ALVINO, DASHRO #### [facility] [address] [place] [address] Dr. Yogi Naidu Test Information: Comment Normal [facility] Comment on above: Result Comment: The quantitative range of this assay is 15 IU/mL to 100 million IU/mL. Performed By: #### E DASH DE OLIVEIRARO #### [facility] [address] [place] [address] Dr. Yogi Naidu BOX TEST SENT OUTon 07-22-19 23 SENT TO REF LAB 07/22/2022 Normal [facility] Comment on above: Performed By: #### B OX #### [facility] [address] [place] [address] Dr. Yogi Naidu CBC AUTO DIFFon 07-22-2022 BASO # 0.1 103/ul Normal 0.0-0.1 [facility] Comment on above: Performed By: #### C BC #### [facility] [address] [place] [address] Dr. Yogi Naidu Basophils/100 WBC (Bld) 1.0 % Normal 0.2-2.0 [facility] Comment on above: Performed By: #### C BC #### [facility] [address] [place] [address] Dr. Yogi Naidu EO # 0.2 103/ul Normal 0.0-0.7 [facility] Comment on above: Performed By: #### C BC #### [facility] [address] [place] [address] Dr. Yogi Naidu Eosinophils/100 WBC (Bld) 2.5 % Normal 0.9-7.0 [facility] Comment on above: Performed By: #### C BC #### [facility] [address] [place] [address] Dr. Yogi Naidu Erythrocyte distribution width (RBC) [Ratio] 14.1 % Normal 11.0-15.0 [facility] Comment on above: Performed By: #### C BC #### [facility] [address] [place] [address] Dr. Yogi Naidu Hematocrit (Bld) [Volume fraction] 50.1 % Normal 42.0-54.0 [facility] Comment on above: Performed By: #### C BC #### [facility] [address] [place] [address] Dr. Yogi Naidu Hemoglobin (Bld) [Mass/Vol] 16.2 g/dL Normal 14.0-18.0 [facility] Comment on above: Performed By: #### C BC #### [facility] [address] [place] [address] Dr. Yogi Naidu IG # 0.03 10e3/ul Normal 0.00-0.03 [facility] Comment on above: Performed By: #### C BC #### [facility] [address] [place] [address] Dr. Yogi Naidu IG % 0.4 % Normal 0.0-0.5 [facility] Comment on above: Performed By: #### C BC #### [facility] [address] [place] [address] Dr. Ygoi Naidu LYMPH # 0.7 103/ul Critically low 1.2-3.[address] [facility] Comment on above: Performed By: #### C BC #### [facility] [address] [place] [address] Dr. Yogi Naidu Lymphocytes/100 WBC (Bld) 11.0 % Critically low 20.5-60.0 [facility] Comment on above: Performed By: #### C BC #### [facility] [address] [place] [address] Dr. Yogi Naidu MANUAL DIFF REQ NO Normal [facility] Comment on above: Performed By: #### C BC #### [facility] [address] [place] [address] Dr. Yogi Naidu MCH (RBC) [Entitic mass] 29.9 pg Normal 25.9-34.0 [facility] Comment on above: Performed By: #### C BC #### [facility] [address] [place] [address] Dr. Yogi Naidu MCHC (RBC) [Mass/Vol] 32.3 g/dL Normal 29.9-35.2 [facility] Comment on above: Performed By: #### C BC #### [facility] [address] [place] [address] Dr. Yogi Naidu MCV (RBC) [Entitic vol] 92.6 fL Normal 80.0-94.0 [facility] Comment on above: Performed By: #### C BC #### [facility] [address] [place] [address] Dr. Yogi Naidu MONO # 0.4 103/ul Normal 0.3-0.8 [facility] Comment on above: Performed By: #### C BC #### [facility] [address] [place] [address] Dr. Yogi Naidu Monocytes/100 WBC (Bld) 5.7 % Normal 1.7-12.0 [facility] Comment on above: Performed By: #### C BC #### [facility] [address] [place] [address] Dr. Yogi Naidu NEUT # 5.3 103/ul Normal 1.4-6.5 [facility] Comment on above: Performed By: #### C BC #### [facility] [address] [place] [address] Dr. Yogi Naidu Neutrophils/100 WBC (Bld) 79.4 % Critically high 43.0-75.0 [facility] Comment on above: Performed By: #### C BC #### [facility] [address] [place] [address] Dr. Yogi Naidu Platelet mean volume (Bld) [Entitic vol] 9.7 fL Normal 9.5-13.5 [facility] Comment on above: Performed By: #### C BC #### [facility] [address] [place] [address] Dr. Yogi Naidu PLT 206 103/ul Normal 150-450 [facility] Comment on above: Performed By: #### C BC #### [facility] [address] [address] [address] Yogi Naidu RBC 5.41 106/ul Normal 4.70-6.10 [facility] Comment on above: Performed By: #### C BC #### [facility] [address] [address] [address] Yogi Naidu WBC 6.7 103/ul Normal 4.0-11.0 [facility] Comment on above: Performed By: #### C BC #### [facility] [address] [address] [address] Yogi Naidu GGTon 07-22-2022 Gamma glutamyl transferase [Catalytic activity/Vol] 30 U/L Normal 15-85 [facility] Comment on above: Performed By: #### B OX #### [facility] [address] [place] [address] Dr. Yogi Naidu LIPID PROFILEon 07-22-2022 CHOL-HDL RATIO NORM SEE BELOW Normal [facility] Comment on above: Result Comment: 3.3 - 4.4 LOW RISK 4.4 - 7.1 AVERAGE RISK 7.1 - 11.0 MODERATE RISK >11.0 HIGH RISK Performed By: #### C MP, MG, PHOS, GGT #### [facility] [address] [place] [address] Dr. Yogi Naidu Cholesterol [Mass/Vol] 188 mg/dL Normal <=200 [facility] Comment on above: Performed By: #### C MP, MG, PHOS, GGT #### [facility] [address] [place] [address] Dr. Yogi Naidu Cholesterol in HDL [Mass/Vol] 48 mg/dL Normal 40-60 [facility] Comment on above: Performed By: #### C MP, MG, PHOS, GGT #### [facility] [address] [place] [address] Dr. Yogi Naidu Cholesterol in LDL [Mass/Vol] 123.8 mg/dL Normal [facility] Comment on above: Performed By: #### C MP, MG, PHOS, GGT #### [facility] [address] [address] [address] Yogi Naidu Cholesterol.total/Choles terol in HDL [Mass ratio] 3.9 {ratio} Normal [facility] Comment on above: Performed By: #### C MP, MG, PHOS, GGT #### [facility] [address] [address] [address] Yogi Naidu HDL NORMAL > or = 60 mg/dl - LO W CARDIOVASCULAR RISK <40 mg/dl - HIGH CARDIOVASCULAR RISK Normal [facility] Comment on above: Performed By: #### C MP, MG, PHOS, GGT #### [facility] [address] [place] [address] Dr. Yogi Naidu LDL CALC NORMAL SEE BELOW Normal [facility] Comment on above: Result Comment: <100 mg/dl OPTIMAL 100 - 129 mg/dl NEAR OR ABOVE OPTIMAL 130 - 159 mg/dl BORDERLINE HIGH 160 - 189 mg/dl HIGH >190 mg/dl VERY HIGH Performed By: #### C MP, MG, PHOS, GGT #### [facility] [address] [place] [address] Dr. Yogi Naidu Triglyceride [Mass/Vol] 81 mg/dL Normal <=150 [facility] Comment on above: Performed By: #### C MP, MG, PHOS, GGT #### [facility] [address] [place] [address] Dr. Yogi Naidu VLDL CALC 16.2 mg/dL Normal [facility] Comment on above: Performed By: #### C MP, MG, PHOS, GGT #### [facility] [address] [place] [address] Dr. Yogi Naidu MAGNESIUMon 07-22-2022 Magnesium [Mass/Vol] 1.7 mg/dL Critically low 1.8-2.4 [facility] Comment on above: Performed By: #### B OX #### [facility] [address] [place] [address] Dr. Yogi Naidu PHOSPHORUSon 07-22-2022 Phosphate [Mass/Vol] 2.8 mg/dL Normal 2.6-4.7 [facility] Comment on above: Performed By: #### C MP, MG, PHOS, GGT #### [facility] [address] [place] [address] Dr. Yogi Naidu PROF 14(COMP METB)on 023 Albumin [Mass/Vol] 4.2 g/dL Normal 3.4-5.0 [facility] Comment on above: Performed By: #### C MP, MG, PHOS, GGT #### [facility] [address] [place] [address] Dr. Yogi Naidu Albumin/Globulin [Mass ratio] 1.7 {ratio} Normal [facility] Comment on above: Performed By: #### C MP, MG, PHOS, GGT #### [facility] [address] [place] [address] Dr. Yogi Naidu ALP [Catalytic activity/Vol] 72 U/L Normal 46-116 [facility] Comment on above: Performed By: #### C MP, MG, PHOS, GGT #### [facility] [address] [place] [address] Dr. Yogi Naidu ALT [Catalytic activity/Vol] 14 U/L Critically low 16-63 [facility] Comment on above: Performed By: #### C MP, MG, PHOS, GGT #### [facility] [address] [place] [address] Dr. Yogi Naidu Anion gap [Moles/Vol] 11.1 mmol/L Normal [facility] Comment on above: Performed By: #### C MP, MG, PHOS, GGT #### [facility] [address] [place] [address] Dr. Yogi Naidu AST [Catalytic activity/Vol] 11 U/L Critically low 15-37 [facility] Comment on above: Performed By: #### C MP, MG, PHOS, GGT #### [facility] [address] [place] [address] Dr. Yogi Naidu Bilirubin [Mass/Vol] 0.7 mg/dL Normal 0.2-1.0 [facility] Comment on above: Performed By: #### C MP, MG, PHOS, GGT #### [facility] [address] [place] [address] Dr. Yogi Naidu Calcium [Mass/Vol] 9.3 mg/dL Normal 8.5-10.1 [facility] Comment on above: Performed By: #### C MP, MG, PHOS, GGT #### [facility] [address] [place] [address] Dr. Yogi Naidu Chloride [Moles/Vol] 106 mmol/L Normal 98-107 [facility] Comment on above: Performed By: #### C MP, MG, PHOS, GGT #### [facility] [address] [place] [address] Dr. Yogi Naidu CO2 [Moles/Vol] 29.2 mmol/L Normal 21.0-32.0 [facility] Comment on above: Performed By: #### C MP, MG, PHOS, GGT #### [facility] [address] [place] [address] Dr. Yogi Naidu Creatinine [Mass/Vol] 1.08 mg/dL Normal 0.70-1.30 [facility] Comment on above: Performed By: #### C MP, MG, PHOS, GGT #### [facility] [address] [place] [address] Dr. Yogi Naidu EGFR-AF SLOVAK >60 Normal >=60 [facility] Comment on above: Performed By: #### C MP, MG, PHOS, GGT #### [facility] [address] [place] [address] Dr. Yogi Naidu EGFR-NON AF SLOVAK >60 Normal >=60 [facility] Comment on above: Performed By: #### C MP, MG, PHOS, GGT #### [facility] [address] [place] [address] Dr. Yogi Naidu Globulin (S) [Mass/Vol] 2.5 g/dL Normal T [facility] Comment on above: Performed By: #### C MP, MG, PHOS, GGT #### [facility] [address] [place] [address] Dr. Yogi Naidu Glucose [Mass/Vol] 90 mg/dL Normal 74-106 [facility] Comment on above: Performed By: #### C MP, MG, PHOS, GGT #### [facility] [address] [place] [address] Dr. Yogi Naidu Potassium [Moles/Vol] 4.3 mmol/L Normal 3.5-5.1 [facility] Comment on above: Performed By: #### C MP, MG, PHOS, GGT #### [facility] [address] [place] [address] Dr. Yogi Naidu Protein [Mass/Vol] 6.7 g/dL Normal 6.4-8.2 [facility] Comment on above: Performed By: #### C MP, MG, PHOS, GGT #### [facility] [address] [place] [address] Dr. Yogi Naidu Sodium [Moles/Vol] 142 mmol/L Normal 136-145 [facility] Comment on above: Performed By: #### C MP, MG, PHOS, GGT #### [facility] [address] [place] [address] Dr. Yogi Naidu Urea nitrogen [Mass/Vol] 23.0 mg/dL Critically high 7.0-18 .0 [facility] Comment on above: Performed By: #### C MP, MG, PHOS, GGT #### [facility] [address] [place] [address] Dr. Yogi Naidu Urea nitrogen/Creatinine [Mass ratio] 21.3 mg/mg Normal [facility] Comment on above: Performed By: #### C MP, MG, PHOS, GGT #### [facility] [address] [place] [address] Dr. Yogi Naidu BOX TEST SENT OUTon 06-16-19 SENT TO REF LAB 06/16/2022 Normal [facility] Comment on above: Performed By: #### E MERLE DE OLIVEIRA #### [facility] [address] [place] [address] Dr. Yogi Naidu CBC AUTO DIFFon 06-16-2022 BASO # 0.1 103/ul Normal 0.0-0.1 [facility] Comment on above: Performed By: #### C BC #### [facility] [address] [place] [address] Dr. Yogi Naidu Basophils/100 WBC (Bld) 1.0 % Normal 0.2-2.0 [facility] Comment on above: Performed By: #### C BC #### [facility] [address] [place] [address] Dr. Yogi Naidu EO # 0.2 103/ul Normal 0.0-0.7 [facility] Comment on above: Performed By: #### C BC #### [facility] [address] [place] [address] Dr. Yogi Naidu Eosinophils/100 WBC (Bld) 2.5 % Normal 0.9-7.0 [facility] Comment on above: Performed By: #### C BC #### [facility] [address] [place] [address] Dr. Yogi Naidu Erythrocyte distribution width (RBC) [Ratio] 14.3 % Normal 11.0-15.0 [facility] Comment on above: Performed By: #### C BC #### [facility] [address] [place] [address] Dr. Yogi Naidu Hematocrit (Bld) [Volume fraction] 44.7 % Normal 42.0-54.0 [facility] Comment on above: Performed By: #### C BC #### [facility] [address] [place] [address] Dr. Yogi Naidu Hemoglobin (Bld) [Mass/Vol] 14.8 g/dL Normal 14.0-18.0 [facility] Comment on above: Performed By: #### C BC #### [facility] [address] [place] [address] Dr. Yogi Naidu IG # 0.01 10e3/ul Normal 0.00-0.03 [facility] Comment on above: Performed By: #### C BC #### [facility] [address] [place] [address] Dr. Yogi Naidu IG % 0.2 % Normal 0.0-0.5 [facility] Comment on above: Performed By: #### C BC #### [facility] [address] [address] [address] Yogi Naidu LYMPH # 0.7 103/ul Critically low 1.2-3.[address] [facility] Comment on above: Performed By: #### C BC #### [facility] [address] [address] [address] Yogi Naidu Lymphocytes/100 WBC (Bld) 12.4 % Critically low 20.5-60.0 [facility] Comment on above: Performed By: #### C BC #### [facility] [address] [place] [address] Dr. Yogi Naidu MANUAL DIFF REQ NO Normal [facility] Comment on above: Performed By: #### C BC #### [facility] [address] [place] [address] Dr. Yogi Naidu MCH (RBC) [Entitic mass] 29.5 pg Normal 25.9-34.0 [facility] Comment on above: Performed By: #### C BC #### [facility] [address] [place] [address] Dr. Yogi Naidu MCHC (RBC) [Mass/Vol] 33.1 g/dL Normal 29.9-35.2 [facility] Comment on above: Performed By: #### C BC #### [facility] [address] [place] [address] Dr. Yogi Naidu MCV (RBC) [Entitic vol] 89.2 fL Normal 80.0-94.0 [facility] Comment on above: Performed By: #### C BC #### [facility] [address] [address] [address] Yogi Naidu MONO # 0.4 103/ul Normal 0.3-0.8 [facility] Comment on above: Performed By: #### C BC #### [facility] [address] [place] [address] Dr. Yogi Naidu Monocytes/100 WBC (Bld) 5.9 % Normal 1.7-12.0 [facility] Comment on above: Performed By: #### C BC #### [facility] [address] [place] [address] Dr. Yogi Naidu NEUT # 4.6 103/ul Normal 1.4-6.5 [facility] Comment on above: Performed By: #### C BC #### [facility] [address] [place] [address] Dr. Yogi Naidu Neutrophils/100 WBC (Bld) 78.0 % Critically high 43.0-75.0 [facility] Comment on above: Performed By: #### C BC #### [facility] [address] [place] [address] Dr. Yogi Naidu Platelet mean volume (Bld) [Entitic vol] 9.1 fL Critically low 9.5-13.5 [facility] Comment on above: Performed By: #### C BC #### [facility] [address] [place] [address] Dr. Yogi Naidu PLT 190 103/ul Normal 150-450 [facility] Comment on above: Performed By: #### C BC #### [facility] [address] [place] [address] Dr. Yoig Naidu RBC 5.01 106/ul Normal 4.70-6.10 [facility] Comment on above: Performed By: #### C BC #### [facility] [address] [place] [address] Dr. Yogi Naidu WBC 5.9 103/ul Normal 4.0-11.0 [facility] Comment on above: Performed By: #### C BC #### [facility] [address] [place] [address] Dr. Yogi Naidu GGTon 06-16-2022 Gamma glutamyl transferase [Catalytic activity/Vol] 28 U/L Normal 15-85 [facility] Comment on above: Performed By: #### C MP, MG, PHOS, GGT #### [facility] [address] [place] [address] Dr. Yogi Naidu MAGNESIUMon 06-16-2022 Magnesium [Mass/Vol] 1.6 mg/dL Critically low 1.8-2.4 [facility] Comment on above: Performed By: #### C MP, MG, PHOS, GGT #### [facility] [address] [place] [address] Dr. Yogi Naidu PHOSPHORUSon 06-16-2022 Phosphate [Mass/Vol] 3.2 mg/dL Normal 2.6-4.7 [facility] Comment on above: Performed By: #### C MP, MG, PHOS, GGT #### [facility] [address] [place] [address] Dr. Yogi Naidu PROF 14(COMP METB)on 023 Albumin [Mass/Vol] 3.8 g/dL Normal 3.4-5.0 [facility] Comment on above: Performed By: #### C MP, MG, PHOS, GGT #### [facility] [address] [place] [address] Dr. Yogi Naidu Albumin/Globulin [Mass ratio] 1.5 {ratio} Normal [facility] Comment on above: Performed By: #### C MP, MG, PHOS, GGT #### [facility] [address] [place] [address] Dr. Yogi Naiud ALP [Catalytic activity/Vol] 74 U/L Normal 46-116 [facility] Comment on above: Performed By: #### C MP, MG, PHOS, GGT #### [facility] [address] [place] [address] Dr. Yogi Naidu ALT [Catalytic activity/Vol] 13 U/L Critically low 16-63 [facility] Comment on above: Performed By: #### C MP, MG, PHOS, GGT #### [facility] [address] [place] [address] Dr. Yogi Naidu Anion gap [Moles/Vol] 10.8 mmol/L Normal [facility] Comment on above: Performed By: #### C MP, MG, PHOS, GGT #### [facility] [address] [place] [address] Dr. Yogi Naidu AST [Catalytic activity/Vol] 15 U/L Normal 15-37 [facility] Comment on above: Performed By: #### C MP, MG, PHOS, GGT #### [facility] [address] [address] [address] Yogi Naidu Bilirubin [Mass/Vol] 0.8 mg/dL Normal 0.2-1.0 [facility] Comment on above: Performed By: #### C MP, MG, PHOS, GGT #### [facility] [address] [address] [address] Yogi Naidu Calcium [Mass/Vol] 8.9 mg/dL Normal 8.5-10.1 [facility] Comment on above: Performed By: #### C MP, MG, PHOS, GGT #### [facility] [address] [place] [address] Dr. Yogi Naidu Chloride [Moles/Vol] 108 mmol/L Critically high 98-107 [facility] Comment on above: Performed By: #### C MP, MG, PHOS, GGT #### [facility] [address] [place] [address] Dr. Yogi Naidu CO2 [Moles/Vol] 27.6 mmol/L Normal 21.0-32.0 [facility] Comment on above: Performed By: #### C MP, MG, PHOS, GGT #### [facility] [address] [place] [address] Dr. Yogi Naidu Creatinine [Mass/Vol] 1.12 mg/dL Normal 0.70-1.30 [facility] Comment on above: Performed By: #### C MP, MG, PHOS, GGT #### [facility] [address] [place] [address] Dr. Yogi Naidu EGFR-AF SLOVAK >60 Normal >=60 [facility] Comment on above: Performed By: #### C MP, MG, PHOS, GGT #### [facility] [address] [place] [address] Dr. Yogi Naidu EGFR-NON AF SLOVAK >60 Normal >=60 [facility] Comment on above: Performed By: #### C MP, MG, PHOS, GGT #### [facility] [address] [place], [place] [id number] Dr. Yogi Naidu Globulin (S) [Mass/Vol] 2.5 g/dL Normal T [facility] Comment on above: Performed By: #### C MP, MG, PHOS, GGT #### [facility] [address] [place] [address] Dr. Yogi Naidu Glucose [Mass/Vol] 95 mg/dL Normal 74-106 [facility] Comment on above: Performed By: #### C MP, MG, PHOS, GGT #### [facility] [address] [place] [address] Dr. Yogi Naidu Potassium [Moles/Vol] 4.4 mmol/L Normal 3.5-5.1 [facility] Comment on above: Performed By: #### C MP, MG, PHOS, GGT #### [facility] [address] [place] [address] Dr. Yogi Naidu Protein [Mass/Vol] 6.3 g/dL Critically low 6.4-8.2 [facility] Comment on above: Performed By: #### C MP, MG, PHOS, GGT #### [facility] [address] [place] [address] Dr. Yogi Naidu Sodium [Moles/Vol] 142 mmol/L Normal 136-145 [facility] Comment on above: Performed By: #### C MP, MG, PHOS, GGT #### [facility] [address] [place] [address] Dr. Yogi Naidu Urea nitrogen [Mass/Vol] 24.0 mg/dL Critically high 7.0-18 .0 [facility] Comment on above: Performed By: #### C MP, MG, PHOS, GGT #### [facility] [address] [place] [address] Dr. Yogi Naidu Urea nitrogen/Creatinine [Mass ratio] 21.4 mg/mg Normal [facility] Comment on above: Performed By: #### C MP, MG, PHOS, GGT #### [facility] [address] [place] [address] Dr. Yogi Naidu BOX TEST SENT OUTon 12-05-20 22 SENT TO REF LAB 05/19/2022 Normal [facility] Comment on above: Performed By: #### E MERLE DE OLIVEIRA #### [facility] [address] [place] [address] Dr. Yogi Naidu CBC AUTO DIFFon 05-19-2022 BASO # 0.1 103/ul Normal 0.0-0.1 [facility] Comment on above: Performed By: #### C MP, MG, PHOS, GGT #### [facility] [address] [place] [address] Dr. Yogi Naidu Basophils/100 WBC (Bld) 1.2 % Normal 0.2-2.0 [facility] Comment on above: Performed By: #### C MP, MG, PHOS, GGT #### [facility] [address] [place] [address] Dr. Yogi Naidu EO # 0.3 103/ul Normal 0.0-0.7 [facility] Comment on above: Performed By: #### C MP, MG, PHOS, GGT #### [facility] [address] [place] [address] Dr. Yogi Naidu Eosinophils/100 WBC (Bld) 4.2 % Normal 0.9-7.0 [facility] Comment on above: Performed By: #### C MP, MG, PHOS, GGT #### [facility] [address] [place] [address] Dr. Yogi Naidu Erythrocyte distribution width (RBC) [Ratio] 14.2 % Normal 11.0-15.0 [facility] Comment on above: Performed By: #### C MP, MG, PHOS, GGT #### [facility] [address] [place] [address] Dr. Yogi Naidu Hematocrit (Bld) [Volume fraction] 45.5 % Normal 42.0-54.0 [facility] Comment on above: Performed By: #### C MP, MG, PHOS, GGT #### [facility] [address] [place] [address] Dr. Yogi Naidu Hemoglobin (Bld) [Mass/Vol] 15.3 g/dL Normal 14.0-18.0 [facility] Comment on above: Performed By: #### C MP, MG, PHOS, GGT #### [facility] [address] [place] [address] Dr. Yogi Naidu IG # 0.02 10e3/ul Normal 0.00-0.03 [facility] Comment on above: Performed By: #### C MP, MG, PHOS, GGT #### [facility] [address] [place] [address] Dr. Yogi Naidu IG % 0.3 % Normal 0.0-0.5 [facility] Comment on above: Performed By: #### C MP, MG, PHOS, GGT #### [facility] [address] [place] [address] Dr. Yogi Naidu LYMPH # 0.7 103/ul Critically low 1.2-3.8 [facility] Comment on above: Performed By: #### C MP, MG, PHOS, GGT #### [facility] [address] [place] [address] Dr. Yogi Naidu Lymphocytes/100 WBC (Bld) 10.1 % Critically low 20.5-60.0 [facility] Comment on above: Performed By: #### C MP, MG, PHOS, GGT #### [facility] [address] [place] [address] Dr. Yogi Naidu MANUAL DIFF REQ NO Normal [facility] Comment on above: Performed By: #### C MP, MG, PHOS, GGT #### [facility] [address] [place] [address] Dr. Yogi Naidu MCH (RBC) [Entitic mass] 29.7 pg Normal 25.9-34.0 [facility] Comment on above: Performed By: #### C MP, MG, PHOS, GGT #### [facility] [address] [place] [address] Dr. Yogi Naidu MCHC (RBC) [Mass/Vol] 33.6 g/dL Normal 29.9-35.2 [facility] Comment on above: Performed By: #### C MP, MG, PHOS, GGT #### [facility] [address] [place] [address] Dr. Yogi Naidu MCV (RBC) [Entitic vol] 88.3 fL Normal 80.0-94.0 [facility] [facility] Comment on above: Performed By: #### C MP, MG, PHOS, GGT #### [facility] [address] [place] [address] Dr. Yogi Naidu MONO # 0.5 103/ul Normal 0.3-0.8 [facility] Comment on above: Performed By: #### C MP, MG, PHOS, GGT #### [facility] [address] [place] [address] Dr. Yogi Naidu Monocytes/100 WBC (Bld) 6.6 % Normal 1.7-12.0 [facility] Comment on above: Performed By: #### C MP, MG, PHOS, GGT #### [facility] [address] [place] [address] Dr. Yogi Naidu NEUT # 5.7 103/ul Normal 1.4-6.5 [facility] Comment on above: Performed By: #### C MP, MG, PHOS, GGT #### [facility] [address] [place] [address] Dr. Yogi Naidu Neutrophils/100 WBC (Bld) 77.6 % Critically high 43.0-75.0 [facility] Comment on above: Performed By: #### C MP, MG, PHOS, GGT #### [facility] [address] [place] [address] Dr. Yogi Naidu Platelet mean volume (Bld) [Entitic vol] 9.3 fL Critically low 9.5-13.5 [facility] Comment on above: Performed By: #### C MP, MG, PHOS, GGT #### [facility] [address] [place] [address] Dr. Yogi Naidu PLT 176 103/ul Normal 150-450 [facility] Comment on above: Performed By: #### C MP, MG, PHOS, GGT #### [facility] [address] [place] [address] Dr. Yogi Naidu RBC 5.15 106/ul Normal 4.70-6.10 [facility] Comment on above: Performed By: #### C MP, MG, PHOS, GGT #### [facility] [address] [place] [address] Dr. Yogi Naidu WBC 7.3 103/ul Normal 4.0-11.0 [facility] Comment on above: Performed By: #### C MP, MG, PHOS, GGT #### [facility] [address] [place] [address] Dr. Yogi Naidu GGTon 05-19-2022 Gamma glutamyl transferase [Catalytic activity/Vol] 32 U/L Normal 15-85 [facility] Comment on above: Performed By: #### C BC #### [facility] [address] [place] [address] Dr. Yogi Naidu MAGNESIUMon 05-19-2022 Magnesium [Mass/Vol] 1.9 mg/dL Normal 1.8-2.4 [facility] Comment on above: Performed By: #### C BC #### [facility] [address] [place] [address] Dr. Yogi Naidu PHOSPHORUSon 05-19-2022 Phosphate [Mass/Vol] 2.9 mg/dL Normal 2.6-4.7 [facility] Comment on above: Performed By: #### C BC #### [facility] [address] [place] [address] Dr. Yogi Naidu PROF 14(COMP METB)on 022 Albumin [Mass/Vol] 4.0 g/dL Normal 3.4-5.0 [facility] Comment on above: Performed By: #### C BC #### [facility] [address] [place] [address] Dr. Yogi Naidu Albumin/Globulin [Mass ratio] 1.6 {ratio} Normal [facility] Comment on above: Performed By: #### C BC #### [facility] [address] [place] [address] Dr. Yogi Naidu ALP [Catalytic activity/Vol] 79 U/L Normal 46-116 [facility] Comment on above: Performed By: #### C BC #### [facility] [address] [address] [address] Yogi Naidu ALT [Catalytic activity/Vol] 13 U/L Critically low 16-63 [facility] Comment on above: Performed By: #### C BC #### [facility] [address] [address] [address] Yogi Naidu Anion gap [Moles/Vol] 10.1 mmol/L Normal [facility] Comment on above: Performed By: #### C BC #### [facility] [address] [address] [address] Yogi Naidu AST [Catalytic activity/Vol] 13 U/L Critically low 15-37 [facility] Comment on above: Performed By: #### C BC #### [facility] [address] [address] [address] Yogi Naidu Bilirubin [Mass/Vol] 0.6 mg/dL Normal 0.2-1.0 [facility] Comment on above: Performed By: #### C BC #### [facility] [address] [address] [address] Yogi Naidu Calcium [Mass/Vol] 8.9 mg/dL Normal 8.5-10.1 [facility] Comment on above: Performed By: #### C BC #### [facility] [address] [address] [address] Yogi Naidu Chloride [Moles/Vol] 108 mmol/L Critically high 98-107 [facility] Comment on above: Performed By: #### C BC #### [facility] [address] [address] [address] Yogi Naidu CO2 [Moles/Vol] 29.2 mmol/L Normal 21.0-32.0 [facility] Comment on above: Performed By: #### C BC #### [facility] [address] [address] [address] Yogi Naidu Creatinine [Mass/Vol] 0.98 mg/dL Normal 0.70-1.30 [facility] Comment on above: Performed By: #### C BC #### [facility] [address] [address] [address] Yogi Naidu EGFR-AF SLOVAK >60 Normal >=60 [facility] Comment on above: Performed By: #### C BC #### [facility] [address] [id number] [address] Yogi Naidu EGFR-NON AF SLOVAK >60 Normal >=60 [facility] Comment on above: Performed By: #### C BC #### [facility] [address] [address] [address] Yogi Naidu Globulin (S) [Mass/Vol] 2.5 g/dL Normal T [facility] Comment on above: Performed By: #### C BC #### [facility] [address] [address] [address] Yogi Naidu Glucose [Mass/Vol] 92 mg/dL Normal 74-106 [facility] Comment on above: Performed By: #### C BC #### [facility] [address] [address] [address] Yogi Naidu Potassium [Moles/Vol] 4.3 mmol/L Normal 3.5-5.1 [facility] Comment on above: Performed By: #### C BC #### [facility] [address] [place] [address] Dr. Yogi Naidu Protein [Mass/Vol] 6.5 g/dL Normal 6.4-8.2 [facility] Comment on above: Performed By: #### C BC #### [facility] [address] [address] [address] Yogi Naidu Sodium [Moles/Vol] 143 mmol/L Normal 136-145 [facility] Comment on above: Performed By: #### C BC #### [facility] [address] [address] [address] Yogi Naidu Urea nitrogen [Mass/Vol] 24.0 mg/dL Critically high 7.0-18 .0 [facility] Comment on above: Performed By: #### C BC #### [facility] [address] [place] [address] Dr. Yogi Naidu Urea nitrogen/Creatinine [Mass ratio] 24.5 mg/mg Normal [facility] Comment on above: Performed By: #### C BC #### [facility] [address] [place] [address] Dr. Yogi Naidu HEP C RNA BY PCR QUANT (NON- GRAPHICAL) Won 04-22-2022 HCV Genotype RTNI Normal [facility] Comment on above: Result Comment: Not indicated Performed By: #### C BC #### [facility] [address] [place] [address] Dr. Yogi Naidu HCV log10 UPTCAL [facility] Comment on above: Result Comment: Unab le to calculate result since non-numeric result obtained for component test. Performed By: #### C BC #### [facility] [address] [place] [address] Dr. Yogi Naidu Hepatitis C Quantitation Not detected [facility] Comment on above: Performed By: #### C BC #### [facility] [address] [place] [address] Dr. Yogi Naidu Test Information: Comment Normal [facility] Comment on above: Result Comment: The quantitative range of this assay is 15 IU/mL to 100 million IU/mL. Performed By: #### C BC #### [facility] [address] [place] [address] Dr. Yogi Naidu BOX TEST SENT OUTon 04-21-20 22 SENT TO REF LAB 04/21/2022 Normal [facility] Comment on above: Performed By: #### C BC #### [facility] [address] [place] [address] Dr. Yogi Naidu CBC AUTO DIFFon 04-21-2022 BASO # 0.1 103/ul Normal 0.0-0.1 [facility] Comment on above: Performed By: #### C MP, MG, PHOS, GGT #### [facility] [address] [place] [address] Dr. Yogi Naidu Basophils/100 WBC (Bld) 1.0 % Normal 0.2-2.0 T [facility] Comment on above: Performed By: #### C MP, MG, PHOS, GGT #### [facility] [address] [place] [address] Dr. Yogi Naidu EO # 0.2 103/ul Normal 0.0-0.7 [facility] Comment on above: Performed By: #### C MP, MG, PHOS, GGT #### [facility] [address] [place] [address] Dr. Yogi Naidu Eosinophils/100 WBC (Bld) 2.7 % Normal 0.9-7.0 [facility] Comment on above: Performed By: #### C MP, MG, PHOS, GGT #### [facility] [address] [place] [address] Dr. Yogi Naidu Erythrocyte distribution width (RBC) [Ratio] 14.2 % Normal 11.0-15.0 [facility] Comment on above: Performed By: #### C MP, MG, PHOS, GGT #### [facility] [address] [place] [address] Dr. Yogi Naidu Hematocrit (Bld) [Volume fraction] 46.5 % Normal 42.0-54.0 [facility] Comment on above: Performed By: #### C MP, MG, PHOS, GGT #### [facility] [address] [place] [address] Dr. Yogi Naidu Hemoglobin (Bld) [Mass/Vol] 15.6 g/dL Normal 14.0-18.0 [facility] Comment on above: Performed By: #### C MP, MG, PHOS, GGT #### [facility] [address] [place] [address] Dr. Yogi Naidu IG # 0.03 10e3/ul Normal 0.00-0.03 [facility] Comment on above: Performed By: #### C MP, MG, PHOS, GGT #### [facility] [address] [place] [address] Dr. Yogi Naidu IG % 0.4 % Normal 0.0-0.5 [facility] Comment on above: Performed By: #### C MP, MG, PHOS, GGT #### [facility] [address] [place] [address] Dr. Yogi Naidu LYMPH # 0.8 103/ul Critically low 1.2-3.[address] [facility] Comment on above: Performed By: #### C MP, MG, PHOS, GGT #### [facility] [address] [place] [address] Dr. Yogi Naidu Lymphocytes/100 WBC (Bld) 11.3 % Critically low 20.5-60.0 [facility] Comment on above: Performed By: #### C MP, MG, PHOS, GGT #### [facility] [address] [place] [address] Dr. Yogi Naidu MANUAL DIFF REQ NO Normal [facility] Comment on above: Performed By: #### C MP, MG, PHOS, GGT #### [facility] [address] [place] [address] Dr. Yogi Naidu MCH (RBC) [Entitic mass] 30.1 pg Normal 25.9-34.0 [facility] Comment on above: Performed By: #### C MP, MG, PHOS, GGT #### [facility] [address] [place] [address] Dr. Yogi Naidu MCHC (RBC) [Mass/Vol] 33.5 g/dL Normal 29.9-35.2 [facility] Comment on above: Performed By: #### C MP, MG, PHOS, GGT #### [facility] [address] [place] [address] Dr. Yogi Naidu MCV (RBC) [Entitic vol] 89.6 fL Normal 80.0-94.0 [facility] Comment on above: Performed By: #### C MP, MG, PHOS, GGT #### [facility] [address] [place] [address] Dr. Yogi Naidu MONO # 0.4 103/ul Normal 0.3-0.8 [facility] Comment on above: Performed By: #### C MP, MG, PHOS, GGT #### [facility] [address] [place] [address] Dr. Yogi Naidu Monocytes/100 WBC (Bld) 6.0 % Normal 1.7-12.0 [facility] Comment on above: Performed By: #### C MP, MG, PHOS, GGT #### [facility] [address] [place] [address] Dr. Yogi Naidu NEUT # 5.5 103/ul Normal 1.4-6.5 [facility] Comment on above: Performed By: #### C MP, MG, PHOS, GGT #### [facility] [address] [place] [address] Dr. Yogi Naidu Neutrophils/100 WBC (Bld) 78.6 % Critically high 43.0-75.0 [facility] Comment on above: Performed By: #### C MP, MG, PHOS, GGT #### [facility] [address] [place] [address] Dr. Yogi Naidu Platelet mean volume (Bld) [Entitic vol] 10.1 fL Normal 9.5-13.5 [facility] Comment on above: Performed By: #### C MP, MG, PHOS, GGT #### [facility] [address] [place] [address] Dr. Yogi Naidu PLT 204 103/ul Normal 150-450 [facility] Comment on above: Performed By: #### C MP, MG, PHOS, GGT #### [facility] [address] [place] [address] Dr. Yogi Naidu RBC 5.19 106/ul Normal 4.70-6.10 [facility] Comment on above: Performed By: #### C MP, MG, PHOS, GGT #### [facility] [address] [place] [address] Dr. Yogi Naidu WBC 7.0 103/ul Normal 4.0-11.0 [facility] Comment on above: Performed By: #### C MP, MG, PHOS, GGT #### [facility] [address] [place] [address] Dr. Yogi Naidu GGTon 04-21-2022 Gamma glutamyl transferase [Catalytic activity/Vol] 34 U/L Normal 15-85 [facility] Comment on above: Performed By: #### Vesta DE OLIVEIRA, UMICRO #### [facility] [address] [address] [address] Yogi Naidu LIPID PROFILEon 04-21-2022 CHOL-HDL RATIO NORM SEE BELOW Normal [facility] Comment on above: Result Comment: 3.3 - 4.4 LOW RISK 4.4 - 7.1 AVERAGE RISK 7.1 - 11.0 MODERATE RISK >11.0 HIGH RISK Performed By: #### Vesta DE OLIVEIRA UMICRO #### [facility] [address] [address] [address] Yogi Naidu Cholesterol [Mass/Vol] 190 mg/dL Normal <=200 Th [facility] Comment on above: Performed By: #### Vesta DE OLIVEIRA UMICRO #### [facility] [address] [place] [address] Dr. Yoig Naidu Cholesterol in HDL [Mass/Vol] 49 mg/dL Normal 40-60 [facility] Comment on above: Performed By: #### Vesta DE OLIVEIRA UMICRO #### [facility] [address] [address] [address] Yogi Naidu Cholesterol in LDL [Mass/Vol] 127.8 mg/dL Normal [facility] Comment on above: Performed By: #### Vesta DE OLIVEIRA, UMICRO #### [facility] [address] [place] [address] Dr. Yogi Naidu Cholesterol.total/Choles terol in HDL [Mass ratio] 3.9 {ratio} Normal [facility] Comment on above: Performed By: #### Vesta DE OLIVEIRA, UMICRO #### [facility] [address] [place] [address] Dr. Yogi Naidu HDL NORMAL > or = 60 mg/dl - LO W CARDIOVASCULAR RISK <40 mg/dl - HIGH CARDIOVASCULAR RISK Normal [facility] Comment on above: Performed By: #### E ALVINO, UMICRO #### [facility] [address] [place] [address] Dr. Yogi Naidu LDL CALC NORMAL SEE BELOW Normal [facility] Comment on above: Result Comment: <100 mg/dl OPTIMAL 100 - 129 mg/dl NEAR OR ABOVE OPTIMAL 130 - 159 mg/dl BORDERLINE HIGH 160 - 189 mg/dl HIGH >190 mg/dl VERY HIGH Performed By: #### MERLE CULVER #### [facility] [address] [place] [address] Dr. Yogi Naidu Triglyceride [Mass/Vol] 66 mg/dL Normal <=150 T [facility] Comment on above: Performed By: #### DASH CULVERRO #### [facility] [address] [place] [address] Dr. Yogi Naidu VLDL CALC 13.2 mg/dL Normal [facility] Comment on above: Performed By: #### DASH CULVERRO #### [facility] [address] [place] [address] Dr. Yogi Naidu MAGNESIUMon 04-21-2022 Magnesium [Mass/Vol] 1.8 mg/dL Normal 1.8-2.4 [facility] Comment on above: Performed By: #### DASH CULVERRO #### [facility] [address] [place] [address] Dr. Yogi Naidu PHOSPHORUSon 04-21-2022 Phosphate [Mass/Vol] 3.4 mg/dL Normal 2.6-4.7 [facility] Comment on above: Performed By: #### DASH CULVERRO #### [facility] [address] [place] [address] Dr. Yogi Naidu PROF 14(COMP METB)on 022 Albumin [Mass/Vol] 4.0 g/dL Normal 3.4-5.0 [facility] Comment on above: Performed By: #### DASH CULVERRO #### [facility] [address] [place] [address] Dr. Yogi Naidu Albumin/Globulin [Mass ratio] 1.6 {ratio} Normal [facility] Comment on above: Performed By: #### DASH CULVERRO #### [facility] [address] [place] [address] Dr. Yogi Naidu ALP [Catalytic activity/Vol] 81 U/L Normal 46-116 [facility] Comment on above: Performed By: #### MERLE CULVER #### [facility] [address] [place] [address] Dr. Yogi Naidu ALT [Catalytic activity/Vol] 14 U/L Critically low 16-63 [facility] Comment on above: Performed By: #### MERLE CULVER #### [facility] [address] [place] [address] Dr. Yogi Naidu Anion gap [Moles/Vol] 8.8 mmol/L Normal [facility] Comment on above: Performed By: #### MERLE CULVER #### [facility] [address] [place] [address] Dr. Yogi Naidu AST [Catalytic activity/Vol] 15 U/L Normal 15-37 [facility] Comment on above: Performed By: #### MERLE CULVER #### [facility] [address] [place] [address] Dr. Yogi Naidu Bilirubin [Mass/Vol] 0.6 mg/dL Normal 0.2-1.0 [facility] Comment on above: Performed By: #### MERLE CULVER #### [facility] [address] [place] [address] Dr. Yogi Naidu Calcium [Mass/Vol] 9.2 mg/dL Normal 8.5-10.1 [facility] Comment on above: Performed By: #### DASH CULVERRO #### [facility] [address] [place] [address] Dr. Yogi Naidu Chloride [Moles/Vol] 106 mmol/L Normal 98-107 [facility] Comment on above: Performed By: #### MERLE CULVER #### [facility] [address] [place] [address] Dr. Yogi Naidu CO2 [Moles/Vol] 28.5 mmol/L Normal 21.0-32.0 [facility] Comment on above: Performed By: #### DASH CULVERRO #### [facility] [address] [address] [address] Yogi Naidu Creatinine [Mass/Vol] 1.12 mg/dL Normal 0.70-1.30 [facility] Comment on above: Performed By: #### MERLE CULVER #### [facility] [address] [address] [address] Yogi Naidu EGFR-AF SLOVAK >60 Normal >=60 [facility] Comment on above: Performed By: #### DASH CULVERRO #### [facility] [address] [place] [address] Dr. Yogi Naidu EGFR-NON AF SLOVAK >60 Normal >=60 [facility] Comment on above: Performed By: #### DASH CULVERRO #### [facility] [address] [place] [address] Dr. Yogi Naidu Globulin (S) [Mass/Vol] 2.5 g/dL Normal T [facility] Comment on above: Performed By: #### DASH CULVERRO #### [facility] [address] [place] [address] Dr. Yogi Naidu Glucose [Mass/Vol] 91 mg/dL Normal 74-106 [facility] Comment on above: Performed By: #### DASH CULVERRO #### [facility] [address] [place] [address] Dr. Yogi Naidu Potassium [Moles/Vol] 4.3 mmol/L Normal 3.5-5.1 [facility] Comment on above: Performed By: #### DASH CULVERRO #### [facility] [address] [place] [address] Dr. Yogi Naidu Protein [Mass/Vol] 6.5 g/dL Normal 6.4-8.2 [facility] Comment on above: Performed By: #### DASH CULVERRO #### [facility] [address] [place] [address] Dr. Yogi Naidu Sodium [Moles/Vol] 139 mmol/L Normal 136-145 [facility] Comment on above: Performed By: #### DSAH CULVERRO #### [facility] [address] [address] [address] Yogi Naidu Urea nitrogen [Mass/Vol] 25.0 mg/dL Critically high 7.0-18 .0 [facility] Comment on above: Performed By: #### DASH CULVERRO #### [facility] [address] [place] [address] Dr. Yogi Naidu Urea nitrogen/Creatinine [Mass ratio] 22.3 mg/mg Normal [facility] Comment on above: Performed By: #### SONU CULVERICRO #### [facility] [address] [place] [address] Dr. Yogi Naidu Tobacco Screening.on Adult depression screening assessment No [facility] [employer] [address] DO Work Phone: Fall risk assessment a) No falls within the last year [facility] [employer] [address] DO Work Phone: Tobacco use status CPHS b) No [facility] [employer] [place] [address] DO Work Phone: BOX TEST SENT OUTon 03-17-20 22 SENT TO REF LAB 03/17/2022 Normal [facility] Comment on above: Performed By: #### C MP, MG, PHOS, GGT #### [facility] [address] [place] [address] Dr. Yogi Naidu CBC W MANUAL DIFFon 03-17-20 ATYPICAL LYMPH # Normal [facility] Comment on above: Performed By: #### DASH CULVERRO #### [facility] [address] [place] [address] Dr. Yogi Naidu ATYPICAL LYMPH % Normal [facility] Comment on above: Performed By: #### DASH CULVERRO #### [facility] [address] [place] [address] Dr. Yogi Naidu BAND # Normal 0.0-0.3 [facility] Comment on above: Performed By: #### DASH CULVERRO #### [facility] [address] [place] [address] Dr. Yogi Naidu BAND % Normal 0-5 [facility] Comment on above: Performed By: #### SONU CULVERICRO #### [facility] [address] [place] [address] Dr. Yogi Naidu BASOM # 0.00 103/ul Normal 0.00-0.10 [facility] Comment on above: Performed By: #### Vesta DE OLIVEIRA UMICRO #### [facility] [address] [place] [address] Dr. Yogi Naidu BASOM % 0.0 % Critically low 0.2-2.[address] [facility] Comment on above: Performed By: #### Vesta DE OLIVEIRA UMICRO #### [facility] [address] [place] [address] Dr. Yogi Naidu BLAST # Normal [facility] Comment on above: Performed By: #### SONU CULVERICRO #### [facility] [address] [place] [address] Dr. Yogi Naidu BLAST % Normal [facility] Comment on above: Performed By: #### Vesta DE OLIVEIRA UMICRO #### [facility] [address] [place] [address] Dr. Yogi Naidu CORRECTED WBC Normal 4.0-11.0 [facility] Comment on above: Performed By: #### Vesta DE OLIVEIRA UMICRO #### [facility] [address] [place] [address] Dr. Yogi Naidu EOS # 0.20 103/ul Normal 0.00-0.70 [facility] Comment on above: Performed By: #### Vesta DE OLIVEIRA UMICRO #### [facility] [address] [place] [address] Dr. Yogi Naidu EOS% 3.0 % Normal 0.9-7.0 [facility] Comment on above: Performed By: #### Vesta DE OLIVEIRA UMICRO #### [facility] [address] [place] [address] Dr. Yogi Naidu HCT 45.6 % Normal 42.0-54.0 [facility] Comment on above: Performed By: #### E RUR UMICRO #### [facility] [address] [address] [address] Yogi Naidu HGB 15.2 g/dl Normal 14.0-18.0 [facility] Comment on above: Performed By: #### E RUR, UMICRO #### [facility] [address] [place] [address] Dr. Yogi Naidu LYMPHM # 0.78 103/ul Critically low 1.20-3.80 [facility] Comment on above: Performed By: #### E RUR, UMICRO #### [facility] [address] [place] [address] Dr. Yogi Naidu LYMPHM% 12.0 % Critically low 20.5-60.[address] [facility] Comment on above: Performed By: #### E ALVINO UMICRO #### [facility] [address] [place] [address] Dr. Yogi Naidu MCH 30.4 pg Normal 25.9-34.0 [facility] Comment on above: Performed By: #### Vesta DE OLIVEIRA UMICRO #### [facility] [address] [place] [address] Dr. Yogi Naidu MCHC 33.3 g/dl Normal 29.9-35.2 [facility] Comment on above: Performed By: #### Vesta DE OLIVEIRA UMICRO #### [facility] [address] [place] [address] Dr. Yogi Naidu MCV 91.2 fL Normal 80.0-94.0 [facility] Comment on above: Performed By: #### E ALVINO UMICRO #### [facility] [address] [place] [address] Dr. Yogi Naidu METAMYELOCYTE # Normal [facility] Comment on above: Performed By: #### E RUR, UMICRO #### [facility] [address] [place] [address] Dr. Yogi Naidu METAMYELOCYTE % Normal [facility] Comment on above: Performed By: #### E RUR UMICRO #### [facility] [address] [place] [address] Dr. Yogi Naidu MONOM# 0.39 103/ul Normal 0.30-0.80 [facility] Comment on above: Performed By: #### Vesta DE OLIVEIRA UMICRO #### [facility] [address] [place] [address] Dr. Ygoi Naidu MONOM% 6.0 % Normal 1.7-12.0 [facility] Comment on above: Performed By: #### Vesta DE OLIVEIRA UMICRO #### [facility] [address] [place] [address] Dr. Yogi Naidu MPV 9.6 fL Normal 9.5-13.5 [facility] Comment on above: Performed By: #### Vesta DE OLIVEIRA UMICRO #### [facility] [address] [place] [address] Dr. Yogi Naidu MYELOCYTE # Normal [facility] Comment on above: Performed By: #### Vesta DE OLIVEIRA UMICRO #### [facility] [address] [place] [address] Dr. Yogi Naidu MYELOCYTE % Normal [facility] Comment on above: Performed By: #### DASH CULVERRO #### [facility] [address] [place] [address] Dr. Yogi Naidu NRBC Normal [facility] Comment on above: Performed By: #### SONU CULVERICRO #### [facility] [address] [place] [address] Dr. Yogi Naidu PLT 180 103/ul Normal 150-450 [facility] Comment on above: Performed By: #### Vesta DE OLIVEIRA UMICRO #### [facility] [address] [place] [address] Dr. Yogi Naidu RBC 5.00 106/ul Normal 4.70-6.10 [facility] Comment on above: Performed By: #### Vesta DE OLIVEIRA UMICRO #### [facility] [address] [place] [address] Dr. Yogi Naidu RDW 14.1 % Normal 11.0-15.0 [facility] Comment on above: Performed By: #### MERLE CULVER #### [facility] [address] [place] [address] Dr. Yogi Naidu SEG # 5.13 103/ul Normal 1.40-6.50 [facility] Comment on above: Performed By: #### DASH CULVERRO #### [facility] [address] [place] [address] Dr. Yogi Naidu SEG % 79.0 % Critically high 43.0-75.0 [facility] Comment on above: Performed By: #### DASH CULVERRO #### [facility] [address] [place] [address] Dr. Yogi Naidu WBC 6.5 103/ul Normal 4.0-11.0 [facility] Comment on above: Performed By: #### DASH CULVERRO #### [facility] [address] [place] [address] Dr. Yogi Naidu GGTon 03-17-2022 Gamma glutamyl transferase [Catalytic activity/Vol] 37 U/L Normal 15-85 [facility] Comment on above: Performed By: #### C MP, MG, PHOS, GGT #### [facility] [address] [place] [address] Dr. Yogi Naidu MAGNESIUMon 03-17-2022 Magnesium [Mass/Vol] 1.8 mg/dL Normal 1.8-2.4 [facility] Comment on above: Performed By: #### C MP, MG, PHOS, GGT #### [facility] [address] [place] [address] Dr. Yogi Naidu PHOSPHORUSon 03-17-2022 Phosphate [Mass/Vol] 2.9 mg/dL Normal 2.6-4.7 [facility] Comment on above: Performed By: #### C MP, MG, PHOS, GGT #### [facility] [address] [place] [address] Dr. Yogi Naidu PROF 14(COMP METB)on 022 Albumin [Mass/Vol] 3.9 g/dL Normal 3.4-5.0 [facility] Comment on above: Performed By: #### C MP, MG, PHOS, GGT #### [facility] [address] [place] [address] Dr. Yogi Naidu Albumin/Globulin [Mass ratio] 1.6 {ratio} Normal [facility] Comment on above: Performed By: #### C MP, MG, PHOS, GGT #### [facility] [address] [place] [address] Dr. Yogi Naidu ALP [Catalytic activity/Vol] 75 U/L Normal 46-116 [facility] Comment on above: Performed By: #### C MP, MG, PHOS, GGT #### [facility] [address] [place] [address] Dr. Yogi Naidu ALT [Catalytic activity/Vol] 20 U/L Normal 16-63 [facility] Comment on above: Performed By: #### C MP, MG, PHOS, GGT #### [facility] [address] [place] [address] Dr. Yogi Naidu Anion gap [Moles/Vol] 9.6 mmol/L Normal [facility] Comment on above: Performed By: #### C MP, MG, PHOS, GGT #### [facility] [address] [place] [address] Dr. Yogi Naidu AST [Catalytic activity/Vol] 13 U/L Critically low 15-37 [facility] Comment on above: Performed By: #### C MP, MG, PHOS, GGT #### [facility] [address] [place] [address] Dr. Yogi Naidu Bilirubin [Mass/Vol] 0.7 mg/dL Normal 0.2-1.0 [facility] Comment on above: Performed By: #### C MP, MG, PHOS, GGT #### [facility] [address] [place] [address] Dr. Yogi Naidu Calcium [Mass/Vol] 9.0 mg/dL Normal 8.5-10.1 [facility] Comment on above: Performed By: #### C MP, MG, PHOS, GGT #### [facility] [address] [address] [address] Yogi Naidu Chloride [Moles/Vol] 108 mmol/L Critically high 98-107 [facility] Comment on above: Performed By: #### C MP, MG, PHOS, GGT #### [facility] [address] [place] [address] Dr. Yogi Naidu CO2 [Moles/Vol] 28.3 mmol/L Normal 21.0-32.0 [facility] Comment on above: Performed By: #### C MP, MG, PHOS, GGT #### [facility] [address] [place] [address] Dr. Yogi Naidu Creatinine [Mass/Vol] 1.17 mg/dL Normal 0.70-1.30 [facility] Comment on above: Performed By: #### C MP, MG, PHOS, GGT #### [facility] [address] [place] [address] Dr. Yogi Naidu EGFR-AF SLOVAK >60 Normal >=60 [facility] Comment on above: Performed By: #### C MP, MG, PHOS, GGT #### [facility] [address] [place] [address] Dr. Yogi Naidu EGFR-NON AF SLOVAK >60 Normal >=60 [facility] Comment on above: Performed By: #### C MP, MG, PHOS, GGT #### [facility] [address] [place] [address] Dr. Yogi Naidu Globulin (S) [Mass/Vol] 2.4 g/dL Normal [facility] Comment on above: Performed By: #### C MP, MG, PHOS, GGT #### [facility] [address] [place] [address] Dr. Yogi Naidu Glucose [Mass/Vol] 102 mg/dL Normal 74-106 [facility] Comment on above: Performed By: #### C MP, MG, PHOS, GGT #### [facility] [address] [place] [address] Dr. Yogi Naidu Potassium [Moles/Vol] 4.9 mmol/L Normal 3.5-5.1 [facility] Comment on above: Performed By: #### C MP, MG, PHOS, GGT #### [facility] [address] [place] [address] Dr. Yogi Naidu Protein [Mass/Vol] 6.3 g/dL Critically low 6.4-8.2 [facility] Comment on above: Performed By: #### C MP, MG, PHOS, GGT #### [facility] [address] [place] [address] Dr. Yogi Naidu Sodium [Moles/Vol] 141 mmol/L Normal 136-145 [facility] Comment on above: Performed By: #### C MP, MG, PHOS, GGT #### [facility] [address] [place] [address] Dr. Yogi Naidu Urea nitrogen [Mass/Vol] 22.0 mg/dL Critically high 7.0-18 .0 [facility] Comment on above: Performed By: #### C MP, MG, PHOS, GGT #### [facility] [address] [place] [address] Dr. Yogi Naidu Urea nitrogen/Creatinine [Mass ratio] 18.8 mg/mg [facility] Comment on above: Performed By: #### C MP, MG, PHOS, GGT #### [facility] [address] [place] [address] Dr. Yogi Naidu BOX TEST SENT OUTon 02-19-20 22 SENT TO REF LAB 02/18/2022 Normal [facility] Comment on above: Performed By: #### E DASH DE OLIVEIRARO #### [facility] [address] [place] [address] Dr. Yogi Naidu CBC W MANUAL DIFFon 02-19-20 22 ATYPICAL LYMPH # Normal [facility] Comment on above: Performed By: #### C MP, MG, PHOS, GGT #### [facility] [address] [place] [address] Dr. Yogi Naidu ATYPICAL LYMPH % Normal [facility] Comment on above: Performed By: #### C MP, MG, PHOS, GGT #### [facility] [address] [place] [address] Dr. Yogi Naidu BAND # Normal 0.0-0.3 [facility] Comment on above: Performed By: #### C MP, MG, PHOS, GGT #### [facility] [address] [place] [address] Dr. Yogi Naidu BAND % Normal 0-5 [facility] Comment on above: Performed By: #### C MP, MG, PHOS, GGT #### [facility] [address] [place] [address] Dr. Yogi Naidu BASOM # 0.00 103/ul Normal 0.00-0.10 [facility] Comment on above: Performed By: #### C MP, MG, PHOS, GGT #### [facility] [address] [place] [address] Dr. Yogi Naidu BASOM % 0.0 % Critically low 0.2-2.[address] [facility] Comment on above: Performed By: #### C MP, MG, PHOS, GGT #### [facility] [address] [place] [address] Dr. Yogi Naidu BLAST # Normal [facility] Comment on above: Performed By: #### C MP, MG, PHOS, GGT #### [facility] [address] [place] [address] Dr. Yogi Naidu BLAST % Normal [facility] Comment on above: Performed By: #### C MP, MG, PHOS, GGT #### [facility] [address] [place] [address] Dr. Yogi Naidu CORRECTED WBC Normal 4.0-11.0 [facility] Comment on above: Performed By: #### C MP, MG, PHOS, GGT #### [facility] [address] [place] [address] Dr. Yogi Naidu EOS # 0.21 103/ul Normal 0.00-0.70 [facility] Comment on above: Performed By: #### C MP, MG, PHOS, GGT #### [facility] [address] [place] [address] Dr. Yogi Naidu EOS% 4.0 % Normal 0.9-7.0 [facility] Comment on above: Performed By: #### C MP, MG, PHOS, GGT #### [facility] [address] [address] [address] Yogi Naidu HCT 43.6 % Normal 42.0-54.0 [facility] Comment on above: Performed By: #### C MP, MG, PHOS, GGT #### [facility] [address] [address] [address] Yogi Naidu HGB 14.9 g/dl Normal 14.0-18.0 [facility] Comment on above: Performed By: #### C MP, MG, PHOS, GGT #### [facility] [address] [place] [address] Dr. Yogi Naidu LYMPHM # 0.62 103/ul Critically low 1.20-3.80 [facility] Comment on above: Performed By: #### C MP, MG, PHOS, GGT #### [facility] [address] [address] [address] Yogi Naidu LYMPHM% 12.0 % Critically low 20.5-60.[address] [facility] Comment on above: Performed By: #### C MP, MG, PHOS, GGT #### [facility] [address] [address] [address] Yogi Naidu MCH 30.1 pg Normal 25.9-34.0 [facility] Comment on above: Performed By: #### C MP, MG, PHOS, GGT #### [facility] [address] [address] [address] Yogi Naidu MCHC 34.2 g/dl Normal 29.9-35.2 [facility] Comment on above: Performed By: #### C MP, MG, PHOS, GGT #### [facility] [address] [address] [address] Yogi Naidu MCV 88.1 fL Normal 80.0-94.0 [facility] Comment on above: Performed By: #### C MP, MG, PHOS, GGT #### [facility] [address] [place] [address] Dr. Yogi Naidu METAMYELOCYTE # Normal [facility] Comment on above: Performed By: #### C MP, MG, PHOS, GGT #### [facility] [address] [address] [address] Yogi Naidu METAMYELOCYTE % Normal [facility] Comment on above: Performed By: #### C MP, MG, PHOS, GGT #### [facility] [address] [place] [address] Dr. Yogi Naidu MONOM# 0.05 103/ul Critically low 0.30-0.80 [facility] Comment on above: Performed By: #### C MP, MG, PHOS, GGT #### [facility] [address] [place] [address] Dr. Yogi Naidu MONOM% 1.0 % Critically low 1.7-12.[address] [facility] Comment on above: Performed By: #### C MP, MG, PHOS, GGT #### [facility] [address] [place] [address] Dr. Yogi Naidu MPV 9.2 fL Critically low 9.5-13.[address] [facility] Comment on above: Performed By: #### C MP, MG, PHOS, GGT #### [facility] [address] [place] [address] Dr. Yogi Naidu MYELOCYTE # Normal [facility] Comment on above: Performed By: #### C MP, MG, PHOS, GGT #### [facility] [address] [place] [address] Dr. Yogi Naidu MYELOCYTE % Normal [facility] Comment on above: Performed By: #### C MP, MG, PHOS, GGT #### [facility] [address] [place] [address] Dr. Yogi Naidu NRBC Normal [facility] Comment on above: Performed By: #### C MP, MG, PHOS, GGT #### [facility] [address] [place] [address] Dr. Yogi Naidu PLT 143 103/ul Critically low 150-450 [facility] Comment on above: Performed By: #### C MP, MG, PHOS, GGT #### [facility] [address] [address] [address] Yogi Naidu RBC 4.95 106/ul Normal 4.70-6.10 [facility] Comment on above: Performed By: #### C MP, MG, PHOS, GGT #### [facility] [address] [address] [address] Yogi Naidu RDW 13.9 % Normal 11.0-15.0 [facility] Comment on above: Performed By: #### C MP, MG, PHOS, GGT #### [facility] [address] [place] [address] Dr. Yogi Naidu SEG # 4.32 103/ul Normal 1.40-6.50 [facility] Comment on above: Performed By: #### C MP, MG, PHOS, GGT #### [facility] [address] [place] [address] Dr. Yogi Naidu SEG % 83.0 % Critically high 43.0-75.0 [facility] Comment on above: Performed By: #### C MP, MG, PHOS, GGT #### [facility] [address] [place] [address] Dr. Yogi Naidu WBC 5.2 103/ul Normal 4.0-11.0 [facility] Comment on above: Performed By: #### C MP, MG, PHOS, GGT #### [facility] [address] [place] [address] Dr. Yogi Naidu GGTon 02-18-2022 Gamma glutamyl transferase [Catalytic activity/Vol] 38 U/L Normal 15-85 [facility] Comment on above: Performed By: #### C BC #### [facility] [address] [place] [address] Dr. Yogi Naidu MAGNESIUMon 02-18-2022 Magnesium [Mass/Vol] 1.8 mg/dL Normal 1.8-2.4 [facility] Comment on above: Performed By: #### C BC #### [facility] [address] [place] [address] Dr. Yogi Naidu PHOSPHORUSon 02-18-2022 Phosphate [Mass/Vol] 2.5 mg/dL Critically low 2.6-4.7 [facility] Comment on above: Performed By: #### C MP, MG, PHOS, GGT #### [facility] [address] [place] [address] Dr. Yogi Naidu PROF 14(COMP METB)on 022 Albumin [Mass/Vol] 3.8 g/dL Normal 3.4-5.0 [facility] Comment on above: Performed By: #### C MP, MG, PHOS, GGT #### [facility] [address] [place] [address] Dr. Yogi Naidu Albumin/Globulin [Mass ratio] 1.6 {ratio} Normal [facility] Comment on above: Performed By: #### C MP, MG, PHOS, GGT #### [facility] [address] [place] [address] Dr. Yogi Naidu ALP [Catalytic activity/Vol] 69 U/L Normal 46-116 [facility] Comment on above: Performed By: #### C MP, MG, PHOS, GGT #### [facility] [address] [place] [address] Dr. Yogi Naidu ALT [Catalytic activity/Vol] 17 U/L Normal 16-63 [facility] Comment on above: Performed By: #### C MP, MG, PHOS, GGT #### [facility] [address] [place] [address] Dr. Yogi Naidu Anion gap [Moles/Vol] 10.0 mmol/L Normal [facility] Comment on above: Performed By: #### C MP, MG, PHOS, GGT #### [facility] [address] [place] [address] Dr. Yogi Naidu AST [Catalytic activity/Vol] 15 U/L Normal 15-37 [facility] Comment on above: Performed By: #### C MP, MG, PHOS, GGT #### [facility] [address] [place] [address] Dr. Yogi Naidu Bilirubin [Mass/Vol] 0.7 mg/dL Normal 0.2-1.0 [facility] Comment on above: Performed By: #### C MP, MG, PHOS, GGT #### [facility] [address] [place] [address] Dr. Yogi Naidu Calcium [Mass/Vol] 8.3 mg/dL Critically low 8.5-10.1 [facility] Comment on above: Performed By: #### C MP, MG, PHOS, GGT #### [facility] [address] [place] [address] Dr. Yogi Naidu Chloride [Moles/Vol] 107 mmol/L Normal 98-107 [facility] Comment on above: Performed By: #### C MP, MG, PHOS, GGT #### [facility] [address] [place] [address] Dr. Yogi Naidu CO2 [Moles/Vol] 27.0 mmol/L Normal 21.0-32.0 [facility] Comment on above: Performed By: #### C MP, MG, PHOS, GGT #### [facility] [address] [place] [address] Dr. Yogi Naidu Creatinine [Mass/Vol] 1.29 mg/dL Normal 0.70-1.30 [facility] Comment on above: Performed By: #### C MP, MG, PHOS, GGT #### [facility] [address] [place] [address] Dr. Yogi Naidu EGFR-AF SLOVAK >60 Normal >=60 [facility] Comment on above: Performed By: #### C MP, MG, PHOS, GGT #### [facility] [address] [place] [address] Dr. Yogi Naidu EGFR-NON AF SLOVAK 55 mL/min/1.73m2 Critically low >=60 [facility] Comment on above: Performed By: #### C MP, MG, PHOS, GGT #### [facility] [address] [place] [address] Dr. Yogi Naidu Globulin (S) [Mass/Vol] 2.4 g/dL Normal T [facility] Comment on above: Performed By: #### C MP, MG, PHOS, GGT #### [facility] [address] [address] [address] Yogi Naidu Glucose [Mass/Vol] 95 mg/dL Normal 74-106 [facility] Comment on above: Performed By: #### C MP, MG, PHOS, GGT #### [facility] [address] [address] [address] Yogi Naidu Potassium [Moles/Vol] 4.0 mmol/L Normal 3.5-5.1 [facility] Comment on above: Performed By: #### C MP, MG, PHOS, GGT #### [facility] [address] [place] [address] Dr. Yogi Naidu Protein [Mass/Vol] 6.2 g/dL Critically low 6.4-8.2 [facility] Comment on above: Performed By: #### C MP, MG, PHOS, GGT #### [facility] [address] [address] [address] Yogi Naidu Sodium [Moles/Vol] 140 mmol/L Normal 136-145 [facility] Comment on above: Performed By: #### C MP, MG, PHOS, GGT #### [facility] [address] [address] [address] Yogi Naidu Urea nitrogen [Mass/Vol] 26.0 mg/dL Critically high 7.0-18 .0 [facility] Comment on above: Performed By: #### C MP, MG, PHOS, GGT #### [facility] [address] [place] [address] Dr. Yogi Naidu Urea nitrogen/Creatinine [Mass ratio] 20.2 mg/mg Normal [facility] Comment on above: Performed By: #### C MP, MG, PHOS, GGT #### [facility] [address] [place] [address] Dr. Yogi Naidu US PROSTATEon 01-22-2022 US [...] SUSAN POPE Date: 2022-01-22 16:08 Normal [facility]on SARS-CoV-2 (COVID-19) RNA LUZ MARIA+probe Ql (Unsp spec) Not detected Normal NOT DETECTED [facility] Comment on above: Result Comment: This test is not yet approved or cleared by the [place] FDA. When there are no FDA-approved or cleared tests available, and other criteria are met, FDA can make tests available under an emergency access mechanism called an Emergency Use Authorization (EUA). The EUA for this test is supported by the [employer] of Health and Human Service's (HHS's) declaration [...] consistent with SARS-CoV-2. Performed By: #### E RURDASHRO #### [facility] [address] [place], [place] [address] Dr. Yogi Naidu HEP C RNA BY PCR QUANT (NON- GRAPHICAL) Won 01-14-2022 HCV Genotype RTNI Normal [facility] Comment on above: Result Comment: Not indicated Performed By: #### C MP, MG, PHOS, GGT #### [facility] [address] [place], [place] [address] Dr. Yogi Naidu HCV log10 UPTCAL Normal [facility] Comment on above: Result Comment: Unab le to calculate result since non-numeric result obtained for component test. Performed By: #### C MP, MG, PHOS, GGT #### [facility] [address] [place] [address] Dr. Yogi Naidu Hepatitis C Quantitation Not detected Normal [facility] Comment on above: Performed By: #### C MP, MG, PHOS, GGT #### [facility] [address] [place] [address] Dr. Yogi Naidu Test Information: Comment Normal [facility] Comment on above: Result Comment: The quantitative range of this assay is 15 IU/mL to 100 million IU/mL. Performed By: #### C MP, MG, PHOS, GGT #### [facility] [address] [place] [address] Dr. Yogi Naidu BOX TEST SENT OUTon 01-14-20 22 SENT TO REF LAB 01/13/2022 Normal [facility] Comment on above: Performed By: #### B OX #### [facility] [address] [place] [address] Dr. Yogi Naidu CBC W MANUAL DIFFon 01-14-20 22 ANISOCYTOSIS SLIGHT Normal [facility] Comment on above: Performed By: #### C MP, MG, PHOS, GGT #### [facility] [address] [place] [address] Dr. Yogi Naidu ATYPICAL LYMPH # Normal [facility] Comment on above: Performed By: #### C MP, MG, PHOS, GGT #### [facility] [address] [place] [address] Dr. Yogi Naidu ATYPICAL LYMPH % Normal [facility] Comment on above: Performed By: #### C MP, MG, PHOS, GGT #### [facility] [address] [place] [address] Dr. Yogi Naidu BAND # Normal 0.0-0.3 [facility] Comment on above: Performed By: #### C MP, MG, PHOS, GGT #### [facility] [address] [place] [address] Dr. Yogi Naidu BAND % Normal 0-5 [facility] Comment on above: Performed By: #### C MP, MG, PHOS, GGT #### [facility] [address] [place] [address] Dr. Yogi Naidu BASOM # 0.00 103/ul Normal 0.00-0.10 [facility] Comment on above: Performed By: #### C MP, MG, PHOS, GGT #### [facility] [address] [place] [address] Dr. Yogi Naidu BASOM % 0.0 % Critically low 0.2-2.[address] [facility] Comment on above: Performed By: #### C MP, MG, PHOS, GGT #### [facility] [address] [place] [address] Dr. Yogi Naidu BLAST # Normal [facility] Comment on above: Performed By: #### C MP, MG, PHOS, GGT #### [facility] [address] [place] [address] Dr. Yogi Naidu BLAST % Normal [facility] Comment on above: Performed By: #### C MP, MG, PHOS, GGT #### [facility] [address] [place] [address] Dr. Yogi Naidu CORRECTED WBC Normal 4.0-11.0 [facility] Comment on above: Performed By: #### C MP, MG, PHOS, GGT #### [facility] [address] [place] [address] Dr. Yogi Naidu EOS # 0.10 103/ul Normal 0.00-0.70 [facility] Comment on above: Performed By: #### C MP, MG, PHOS, GGT #### [facility] [address] [place] [address] Dr. Yogi Naidu EOS% 2.0 % Normal 0.9-7.0 [facility] Comment on above: Performed By: #### C MP, MG, PHOS, GGT #### [facility] [address] [place] [address] Dr. Yogi Naidu HCT 42.9 % Normal 42.0-54.0 [facility] Comment on above: Performed By: #### C MP, MG, PHOS, GGT #### [facility] [address] [address] [address] Yogi Naidu HGB 14.6 g/dl Normal 14.0-18.0 [facility] Comment on above: Performed By: #### C MP, MG, PHOS, GGT #### [facility] [address] [place] [address] Dr. Yogi Naidu LYMPHM # 0.56 103/ul Critically low 1.20-3.80 [facility] Comment on above: Performed By: #### C MP, MG, PHOS, GGT #### [facility] [address] [place] [address] Dr. Yogi Naidu LYMPHM% 11.0 % Critically low 20.5-60.[address] [facility] Comment on above: Performed By: #### C MP, MG, PHOS, GGT #### [facility] [address] [place] [address] Dr. Yogi Naidu MCH 30.8 pg Normal 25.9-34.0 [facility] Comment on above: Performed By: #### C MP, MG, PHOS, GGT #### [facility] [address] [place] [address] Dr. Yogi Naidu MCHC 34.0 g/dl Normal 29.9-35.2 [facility] Comment on above: Performed By: #### C MP, MG, PHOS, GGT #### [facility] [address] [place] [address] Dr. Yogi Naidu MCV 90.5 fL Normal 80.0-94.0 [facility] Comment on above: Performed By: #### C MP, MG, PHOS, GGT #### [facility] [address] [place] [address] Dr. Yogi Naidu METAMYELOCYTE # Normal [facility] Comment on above: Performed By: #### C MP, MG, PHOS, GGT #### [facility] [address] [place] [address] Dr. Yogi Naidu METAMYELOCYTE % Normal [facility] Comment on above: Performed By: #### C MP, MG, PHOS, GGT #### [facility] [address] [place] [address] Dr. Yogi Naidu MONOM# 0.26 103/ul Critically low 0.30-0.80 [facility] Comment on above: Performed By: #### C MP, MG, PHOS, GGT #### [facility] [address] [place] [address] Dr. Yogi Naidu MONOM% 5.0 % Normal 1.7-12.0 [facility] Comment on above: Performed By: #### C MP, MG, PHOS, GGT #### [facility] [address] [place] [address] Dr. Yogi Naidu MPV 9.8 fL Normal 9.5-13.5 [facility] Comment on above: Performed By: #### C MP, MG, PHOS, GGT #### [facility] [address] [place] [address] Dr. Yogi Naidu MYELOCYTE # Normal [facility] Comment on above: Performed By: #### C MP, MG, PHOS, GGT #### [facility] [address] [place] [address] Dr. Yogi Naidu MYELOCYTE % Normal [facility] Comment on above: Performed By: #### C MP, MG, PHOS, GGT #### [facility] [address] [place] [address] Dr. Yogi Naidu NRBC Normal [facility] Comment on above: Performed By: #### C MP, MG, PHOS, GGT #### [facility] [address] [place] [address] Dr. Yogi Naidu PLT 172 103/ul Normal 150-450 [facility] Comment on above: Performed By: #### C MP, MG, PHOS, GGT #### [facility] [address] [place] [address] Dr. Yogi Naidu POIKILOCYTOSIS 1+ Normal [facility] Comment on above: Performed By: #### C MP, MG, PHOS, GGT #### [facility] [address] [address] [address] Yogi Naidu RBC 4.74 106/ul Normal 4.70-6.10 [facility] Comment on above: Performed By: #### C MP, MG, PHOS, GGT #### [facility] [address] [address] [address] Yogi Naidu RDW 13.9 % Normal 11.0-15.0 [facility] Comment on above: Performed By: #### C MP, MG, PHOS, GGT #### [facility] [address] [address] [address] Yogi Naidu SEG # 4.18 103/ul Normal 1.40-6.50 [facility] Comment on above: Performed By: #### C MP, MG, PHOS, GGT #### [facility] [address] [place] [address] Dr. Yogi Naidu SEG % 82.0 % Critically high 43.0-75.0 [facility] Comment on above: Performed By: #### C MP, MG, PHOS, GGT #### [facility] [address] [address] [address] Yogi Naidu TEAR DROP CELLS 1+ Normal [facility] Comment on above: Performed By: #### C MP, MG, PHOS, GGT #### [facility] [address] [address] [address] Yogi Naidu WBC 5.1 103/ul Normal 4.0-11.0 [facility] Comment on above: Performed By: #### C MP, MG, PHOS, GGT #### [facility] [address] [address] [address] Yogi Naidu GGTon 01-13-2022 Gamma glutamyl transferase [Catalytic activity/Vol] 35 U/L Normal 15-85 [facility] Comment on above: Performed By: #### B OX #### [facility] [address] [address] [address] Yogi Naidu LIPID PROFILEon 01-13-2022 CHOL-HDL RATIO NORM SEE BELOW Normal [facility] Comment on above: Result Comment: 3.3 - 4.4 LOW RISK 4.4 - 7.1 AVERAGE RISK 7.1 - 11.0 MODERATE RISK >11.0 HIGH RISK Performed By: #### B OX #### [facility] [address] [address] [address] Yogi Naidu Cholesterol [Mass/Vol] 183 mg/dL Normal <=200 [facility] Comment on above: Performed By: #### B OX #### [facility] [address] [address] [address] Yogi Naidu Cholesterol in HDL [Mass/Vol] 45 mg/dL Normal 40-60 [facility] Comment on above: Performed By: #### B OX #### [facility] [address] [place] [address] Dr. Yogi Naidu Cholesterol in LDL [Mass/Vol] 127.2 mg/dL Normal [facility] Comment on above: Performed By: #### B OX #### [facility] [address] [address] [address] Yogi Naidu Cholesterol.total/Choles terol in HDL [Mass ratio] 4.1 {ratio} Normal [facility] Comment on above: Performed By: #### B OX #### [facility] [address] [place] [address] Dr. Yogi Naidu HDL NORMAL > or = 60 mg/dl - LO W CARDIOVASCULAR RISK <40 mg/dl - HIGH CARDIOVASCULAR RISK Normal [facility] Comment on above: Performed By: #### B OX #### [facility] [address] [address] [address] Yogi Naidu LDL CALC NORMAL SEE BELOW Normal [facility] Comment on above: Result Comment: <100 mg/dl OPTIMAL 100 - 129 mg/dl NEAR OR ABOVE OPTIMAL 130 - 159 mg/dl BORDERLINE HIGH 160 - 189 mg/dl HIGH >190 mg/dl VERY HIGH Performed By: #### B OX #### [facility] [address] [place] [address] Dr. Yogi Naidu Triglyceride [Mass/Vol] 54 mg/dL Normal <=150 [facility] Comment on above: Performed By: #### B OX #### [facility] [address] [address] [address] Yogi Naidu VLDL CALC 10.8 mg/dL Normal [facility] Comment on above: Performed By: #### B OX #### [facility] [address] [place] [address] Dr. Yogi Naidu MAGNESIUMon 01-13-2022 Magnesium [Mass/Vol] 1.7 mg/dL Critically low 1.8-2.4 [facility] Comment on above: Performed By: #### B OX #### [facility] [address] [place] [address] Dr. Yogi Naidu PHOSPHORUSon 01-13-2022 Phosphate [Mass/Vol] 2.8 mg/dL Normal 2.6-4.7 [facility] Comment on above: Performed By: #### B OX #### [facility] [address] [place] [address] Dr. Yogi Naidu PROF 14(COMP METB)on 022 Albumin [Mass/Vol] 3.9 g/dL Normal 3.4-5.0 [facility] Comment on above: Performed By: #### B OX #### [facility] [address] [place] [address] Dr. Yogi Naidu Albumin/Globulin [Mass ratio] 1.7 {ratio} Normal [facility] Comment on above: Performed By: #### B OX #### [facility] [address] [place] [address] Dr. Yogi Naidu ALP [Catalytic activity/Vol] 68 U/L Normal 46-116 [facility] Comment on above: Performed By: #### B OX #### [facility] [address] [place] [address] Dr. Yogi Naidu ALT [Catalytic activity/Vol] 14 U/L Critically low 16-63 [facility] Comment on above: Performed By: #### B OX #### [facility] [address] [place] [address] Dr. Yogi Naidu Anion gap [Moles/Vol] 11.9 mmol/L Normal [facility] Comment on above: Performed By: #### B OX #### [facility] [address] [address] [address] Yogi Naidu AST [Catalytic activity/Vol] 13 U/L Critically low 15-37 [facility] Comment on above: Performed By: #### B OX #### [facility] [address] [address] [address] Yogi Naidu Bilirubin [Mass/Vol] 0.5 mg/dL Normal 0.2-1.0 [facility] Comment on above: Performed By: #### B OX #### [facility] [address] [address] [address] Yogi Naidu Calcium [Mass/Vol] 8.7 mg/dL Normal 8.5-10.1 [facility] Comment on above: Performed By: #### B OX #### [facility] [address] [address] [address] Yogi Naidu Chloride [Moles/Vol] 110 mmol/L Critically high 98-107 [facility] Comment on above: Performed By: #### B OX #### [facility] [address] [address] [address] Yogi Naidu CO2 [Moles/Vol] 26.3 mmol/L Normal 21.0-32.0 [facility] Comment on above: Performed By: #### B OX #### [facility] [address] [address] [address] Yogi Naidu Creatinine [Mass/Vol] 1.24 mg/dL Normal 0.70-1.30 [facility] Comment on above: Performed By: #### B OX #### [facility] [address] [address] [address] Yogi Naidu EGFR-AF SLOVAK >60 Normal >=60 [facility] Comment on above: Performed By: #### B OX #### [facility] [address] [address] [address] Yogi Naidu EGFR-NON AF SLOVAK 58 mL/min/1.73m2 Critically low >=60 [facility] Comment on above: Performed By: #### B OX #### [facility] [address] [address] [address] Yogi Naidu Globulin (S) [Mass/Vol] 2.3 g/dL Normal [facility] Comment on above: Performed By: #### B OX #### [facility] [address] [address] [address] Yogi Naidu Glucose [Mass/Vol] 103 mg/dL Normal 74-106 [facility] Comment on above: Performed By: #### B OX #### [facility] [address] [place] [address] Dr. Yogi Naidu Potassium [Moles/Vol] 4.2 mmol/L Normal 3.5-5.1 [facility] Comment on above: Performed By: #### B OX #### [facility] [address] [place] [address] Dr. Yogi Naidu Protein [Mass/Vol] 6.2 g/dL Critically low 6.4-8.2 [facility] Comment on above: Performed By: #### B OX #### [facility] [address] [place] [address] Dr. Yogi Naidu Sodium [Moles/Vol] 144 mmol/L Normal 136-145 [facility] Comment on above: Performed By: #### B OX #### [facility] [address] [place] [address] Dr. Yogi Naidu Urea nitrogen [Mass/Vol] 26.0 mg/dL Critically high 7.0-18 .0 [facility] Comment on above: Performed By: #### B OX #### [facility] [address] [place] [address] Dr. Yogi Naidu Urea nitrogen/Creatinine [Mass ratio] 21.0 mg/mg Normal [facility] Comment on above: Performed By: #### B OX #### [facility] [address] [place] [address] Dr. Yogi Naidu PROTIMEon 01-13-2022 INR Coag (PPP) [Relative time] 1.06 {INR} Normal [facility] Comment on above: Performed By: #### C MP, MG, PHOS, GGT #### [facility] [address] [place] [address] Dr. Yogi Naidu INR GUIDELINES SEE BELOW [facility] Comment on above: Result Comment: LENI RED INR: 2.0 - 3.0 CONDITIONS NOT LISTED BELOW 2.5 - 3.5 FOR PROSTHETIC HEART VALVE REPLACEMENT 2.5 - 3.5 RECURRENT THROMBOSIS Performed By: #### C MP, MG, PHOS, GGT #### [facility] [address] [place] [address] Dr. Yogi Naidu PT Coag (PPP) [Time] 11.4 s Normal 9.0-11.6 [facility] Comment on above: Performed By: #### C MP, MG, PHOS, GGT #### [facility] [address] [place] [address] Dr. Yogi Naidu PTTon 01-13-2022 aPTT Coag (Bld) [Time] 28.7 s Normal 22.3-36.2 [facility] Comment on above: Performed By: #### C MP, MG, PHOS, GGT #### [facility] [address] [place] [address] Dr. Yogi Naidu BOX TEST SENT OUTon 12-18-19 22 SENT TO REF LAB 12/17/2021 [facility] Comment on above: Performed By: #### C MP, MG, PHOS, GGT #### [facility] [address] [place] [address] Dr. Yogi Naidu CBC AUTO DIFFon 12-17-2021 BASO # 0.1 103/ul Normal 0.0-0.1 [facility] Comment on above: Performed By: #### C BC #### [facility] [address] [place] [address] Dr. Yogi Naidu Basophils/100 WBC (Bld) 1.1 % Normal 0.2-2.0 [facility] Comment on above: Performed By: #### C BC #### [facility] [address] [place] [address] Dr. Yogi Naidu EO # 0.2 103/ul Normal 0.0-0.7 [facility] Comment on above: Performed By: #### C BC #### [facility] [address] [place] [address] Dr. Yogi Naidu Eosinophils/100 WBC (Bld) 4.1 % Normal 0.9-7.0 [facility] Comment on above: Performed By: #### C BC #### [facility] [address] [place] [address] Dr. Yogi Naidu Erythrocyte distribution width (RBC) [Ratio] 13.7 % Normal 11.0-15.0 [facility] Comment on above: Performed By: #### C BC #### [facility] [address] [place] [address] Dr. Yogi Naidu Hematocrit (Bld) [Volume fraction] 45.6 % Normal 42.0-54.0 [facility] Comment on above: Performed By: #### C BC #### [facility] [address] [place] [address] Dr. Yogi Naidu Hemoglobin (Bld) [Mass/Vol] 15.1 g/dL Normal 14.0-18.0 [facility] Comment on above: Performed By: #### C BC #### [facility] [address] [place] [address] Dr. Yogi Naidu IG # 0.01 10e3/ul Normal 0.00-0.03 [facility] Comment on above: Performed By: #### C BC #### [facility] [address] [place] [address] Dr. Yogi Naidu IG % 0.2 % Normal 0.0-0.5 [facility] Comment on above: Performed By: #### C BC #### [facility] [address] [place] [address] Dr. Ygoi Naidu LYMPH # 0.7 103/ul Critically low 1.2-3.[address] [facility] Comment on above: Performed By: #### C BC #### [facility] [address] [place] [address] Dr. Yogi Naidu Lymphocytes/100 WBC (Bld) 12.4 % Critically low 20.5-60.0 [facility] Comment on above: Performed By: #### C BC #### [facility] [address] [place] [address] Dr. Yogi Naidu MANUAL DIFF REQ NO Normal [facility] Comment on above: Performed By: #### C BC #### [facility] [address] [place] [address] Dr. Yogi Naidu MCH (RBC) [Entitic mass] 30.1 pg Normal 25.9-34.0 [facility] Comment on above: Performed By: #### C BC #### [facility] [address] [place] [address] Dr. Yogi Naidu MCHC (RBC) [Mass/Vol] 33.1 g/dL Normal 29.9-35.2 [facility] Comment on above: Performed By: #### C BC #### [facility] [address] [place] [address] Dr. Yogi Naidu MCV (RBC) [Entitic vol] 90.8 fL Normal 80.0-94.0 [facility] Comment on above: Performed By: #### C BC #### [facility] [address] [place] [address] Dr. Yogi Naidu MONO # 0.3 103/ul Normal 0.3-0.8 [facility] Comment on above: Performed By: #### C BC #### [facility] [address] [place] [address] Dr. Yogi Naidu Monocytes/100 WBC (Bld) 5.5 % Normal 1.7-12.0 [facility] Comment on above: Performed By: #### C BC #### [facility] [address] [place] [address] Dr. Yogi Naidu NEUT # 4.4 103/ul Normal 1.4-6.5 [facility] Comment on above: Performed By: #### C BC #### [facility] [address] [place] [address] Dr. Yogi Naidu Neutrophils/100 WBC (Bld) 76.7 % Critically high 43.0-75.0 [facility] Comment on above: Performed By: #### C BC #### [facility] [address] [address] [address] Yogi Naidu Platelet mean volume (Bld) [Entitic vol] 9.5 fL Normal 9.5-13.5 [facility] Comment on above: Performed By: #### C BC #### [facility] [address] [address] [address] Yogi Naidu PLT 157 103/ul Normal 150-450 [facility] Comment on above: Performed By: #### C BC #### [facility] [address] [place] [address] Dr. Yogi Naidu RBC 5.02 106/ul Normal 4.70-6.10 [facility] Comment on above: Performed By: #### C BC #### [facility] [address] [place] [address] Dr. Yogi Naidu WBC 5.7 103/ul Normal 4.0-11.0 [facility] Comment on above: Performed By: #### C BC #### [facility] [address] [place] [address] Dr. Yogi Naidu GGTon 12-17-2021 Gamma glutamyl transferase [Catalytic activity/Vol] 35 U/L Normal 15-85 [facility] Comment on above: Performed By: #### C MP, MG, PHOS, GGT #### [facility] [address] [place] [address] Dr. Yogi Naidu MAGNESIUMon 12-17-2021 Magnesium [Mass/Vol] 1.6 mg/dL Critically low 1.8-2.4 [facility] Comment on above: Performed By: #### C MP, MG, PHOS, GGT #### [facility] [address] [place] [address] Dr. Yogi Naidu PHOSPHORUSon 12-17-2021 Phosphate [Mass/Vol] 2.9 mg/dL Normal 2.6-4.7 [facility] Comment on above: Performed By: #### C MP, MG, PHOS, GGT #### [facility] [address] [place] [address] Dr. Yogi Naidu PROF 14(COMP METB)on 022 Albumin [Mass/Vol] 3.8 g/dL Normal 3.4-5.0 [facility] Comment on above: Performed By: #### C MP, MG, PHOS, GGT #### [facility] [address] [address] [address] Yogi Naidu Albumin/Globulin [Mass ratio] 1.6 {ratio} Normal [facility] Comment on above: Performed By: #### C MP, MG, PHOS, GGT #### [facility] [address] [place] [address] Dr. Yogi Naidu ALP [Catalytic activity/Vol] 74 U/L Normal 46-116 [facility] Comment on above: Performed By: #### C MP, MG, PHOS, GGT #### [facility] [address] [place] [address] Dr. Yogi Naidu ALT [Catalytic activity/Vol] 21 U/L Normal 16-63 [facility] Comment on above: Performed By: #### C MP, MG, PHOS, GGT #### [facility] [address] [address] [address] Yogi Naidu Anion gap [Moles/Vol] 13.2 mmol/L Normal [facility] Comment on above: Performed By: #### C MP, MG, PHOS, GGT #### [facility] [address] [place] [address] Dr. Yogi Naidu AST [Catalytic activity/Vol] 14 U/L Critically low 15-37 [facility] Comment on above: Performed By: #### C MP, MG, PHOS, GGT #### [facility] [address] [address] [address] Yogi Naidu Bilirubin [Mass/Vol] 0.6 mg/dL Normal 0.2-1.0 [facility] Comment on above: Performed By: #### C MP, MG, PHOS, GGT #### [facility] [address] [address] [address] Yogi Naidu Calcium [Mass/Vol] 8.5 mg/dL Normal 8.5-10.1 [facility] Comment on above: Performed By: #### C MP, MG, PHOS, GGT #### [facility] [address] [address] [address] Yogi Naidu Chloride [Moles/Vol] 109 mmol/L Critically high 98-107 [facility] Comment on above: Performed By: #### C MP, MG, PHOS, GGT #### [facility] [address] [place] [address] Dr. Yogi Naidu CO2 [Moles/Vol] 24.9 mmol/L Normal 21.0-32.0 [facility] Comment on above: Performed By: #### C MP, MG, PHOS, GGT #### [facility] [address] [place] [address] Dr. Yogi Naidu Creatinine [Mass/Vol] 1.22 mg/dL Normal 0.70-1.30 [facility] Comment on above: Performed By: #### C MP, MG, PHOS, GGT #### [facility] [address] [place] [address] Dr. Yogi Naidu EGFR-AF SLOVAK >60 Normal >=60 [facility] Comment on above: Performed By: #### C MP, MG, PHOS, GGT #### [facility] [address] [place] [address] Dr. Yogi Naidu EGFR-NON AF SLOVAK 59 mL/min/1.73m2 Critically low >=60 [facility] Comment on above: Performed By: #### C MP, MG, PHOS, GGT #### [facility] [address] [place] [address] Dr. Yogi Naidu Globulin (S) [Mass/Vol] 2.4 g/dL Normal [facility] Comment on above: Performed By: #### C MP, MG, PHOS, GGT #### [facility] [address] [place] [address] Dr. Yogi Naidu Glucose [Mass/Vol] 94 mg/dL Normal 74-106 [facility] Comment on above: Performed By: #### C MP, MG, PHOS, GGT #### [facility] [address] [place] [address] Dr. Yogi Naidu Potassium [Moles/Vol] 4.1 mmol/L Normal 3.5-5.1 [facility] Comment on above: Performed By: #### C MP, MG, PHOS, GGT #### [facility] [address] [place] [address] Dr. Yogi Naidu Protein [Mass/Vol] 6.2 g/dL Critically low 6.4-8.2 [facility] Comment on above: Performed By: #### C MP, MG, PHOS, GGT #### [facility] [address] [place] [address] Dr. Yogi Naidu Sodium [Moles/Vol] 143 mmol/L Normal 136-145 [facility] Comment on above: Performed By: #### C MP, MG, PHOS, GGT #### [facility] [address] [place] [address] Dr. Yogi Naidu Urea nitrogen [Mass/Vol] 21.0 mg/dL Critically high 7.0-18 .0 [facility] Comment on above: Performed By: #### C MP, MG, PHOS, GGT #### [facility] [address] [place] [address] Dr. Yogi Naidu Urea nitrogen/Creatinine [Mass ratio] 17.2 mg/mg [facility] Comment on above: Performed By: #### C MP, MG, PHOS, GGT #### [facility] [address] [place] [address] Dr. Yogi Naidu BOX TEST SENT OUTon 11-22-19 22 SENT TO REF LAB 11/21/2021 Normal [facility] Comment on above: Performed By: #### C MP, MG, PHOS, GGT #### [facility] [address] [place] [address] Dr. Yogi Naidu CBC W MANUAL DIFFon 11-22-19 ATYPICAL LYMPH # Normal [facility] Comment on above: Performed By: #### C MP, MG, PHOS, GGT #### [facility] [address] [place], [place] [id number] Dr. Yogi Naidu ATYPICAL LYMPH % Normal [facility] Comment on above: Performed By: #### C MP, MG, PHOS, GGT #### [facility] [address] [place] [address] Dr. Yogi Naidu BAND # 0.1 103/ul Normal 0.0-0.3 [facility] Comment on above: Performed By: #### C MP, MG, PHOS, GGT #### [facility] [address] [place] [address] Dr. Yogi Naidu BAND % 2 % Normal 0-5 [facility] Comment on above: Performed By: #### C MP, MG, PHOS, GGT #### [facility] [address] [place] [address] Dr. Yogi Naidu BASOM # 0.00 103/ul Normal 0.00-0.10 [facility] Comment on above: Performed By: #### C MP, MG, PHOS, GGT #### [facility] [address] [place] [address] Dr. Yogi Naidu BASOM % 0.0 % Critically low 0.2-2.0 [facility] Comment on above: Performed By: #### C MP, MG, PHOS, GGT #### [facility] [address] [place] [address] Dr. Yogi Naidu BLAST # Normal [facility] Comment on above: Performed By: #### C MP, MG, PHOS, GGT #### [facility] [address] [place] [address] Dr. Yogi Naidu BLAST % Normal [facility] Comment on above: Performed By: #### C MP, MG, PHOS, GGT #### [facility] [address] [place] [address] Dr. Yogi Naidu CORRECTED WBC Normal 4.0-11.0 [facility] Comment on above: Performed By: #### C MP, MG, PHOS, GGT #### [facility] [address] [place] [address] Dr. Yogi Naidu EOS # 0.19 103/ul Normal 0.00-0.70 [facility] Comment on above: Performed By: #### C MP, MG, PHOS, GGT #### [facility] [address] [place] [address] Dr. Yogi Naidu EOS% 3.0 % Normal 0.9-7.0 [facility] Comment on above: Performed By: #### C MP, MG, PHOS, GGT #### [facility] [address] [place] [address] Dr. Yogi Naidu HCT 46.5 % Normal 42.0-54.0 [facility] Comment on above: Performed By: #### C MP, MG, PHOS, GGT #### [facility] [address] [place] [address] Dr. Yogi Naidu HGB 15.5 g/dl Normal 14.0-18.0 [facility] Comment on above: Performed By: #### C MP, MG, PHOS, GGT #### [facility] [address] [place] [address] Dr. Yogi Naidu LYMPHM # 0.50 103/ul Critically low 1.20-3.80 [facility] Comment on above: Performed By: #### C MP, MG, PHOS, GGT #### [facility] [address] [place] [address] Dr. Yogi Naidu LYMPHM% 8.0 % Critically low 20.5-60.[address] [facility] Comment on above: Performed By: #### C MP, MG, PHOS, GGT #### [facility] [address] [place] [address] Dr. Yogi Naidu MCH 30.2 pg Normal 25.9-34.0 [facility] Comment on above: Performed By: #### C MP, MG, PHOS, GGT #### [facility] [address] [place] [address] Dr. Yogi Naidu MCHC 33.3 g/dl Normal 29.9-35.2 [facility] Comment on above: Performed By: #### C MP, MG, PHOS, GGT #### [facility] [address] [address] [address] Yogi Naidu MCV 90.5 fL Normal 80.0-94.0 [facility] Comment on above: Performed By: #### C MP, MG, PHOS, GGT #### [facility] [address] [place] [address] Dr. Yogi Naidu METAMYELOCYTE # Normal [facility] Comment on above: Performed By: #### C MP, MG, PHOS, GGT #### [facility] [address] [place] [address] Dr. Yogi Naidu METAMYELOCYTE % Normal [facility] Comment on above: Performed By: #### C MP, MG, PHOS, GGT #### [facility] [address] [place] [address] Dr. Yogi Naidu MONOM# 0.06 103/ul Critically low 0.30-0.80 [facility] Comment on above: Performed By: #### C MP, MG, PHOS, GGT #### [facility] [address] [place] [address] Dr. Yogi Naidu MONOM% 1.0 % Critically low 1.7-12.[address] [facility] Comment on above: Performed By: #### C MP, MG, PHOS, GGT #### [facility] [address] [place] [address] Dr. Yogi Naidu MPV 9.6 fL Normal 9.5-13.5 [facility] Comment on above: Performed By: #### C MP, MG, PHOS, GGT #### [facility] [address] [place] [address] Dr. Yogi Naidu MYELOCYTE # Normal [facility] Comment on above: Performed By: #### C MP, MG, PHOS, GGT #### [facility] [address] [place] [address] Dr. Yogi Naidu MYELOCYTE % Normal [facility] Comment on above: Performed By: #### C MP, MG, PHOS, GGT #### [facility] [address] [place] [address] Dr. Yogi Naidu NRBC Normal [facility] Comment on above: Performed By: #### C MP, MG, PHOS, GGT #### [facility] [address] [address] [address] Yogi Naidu PLT 185 103/ul Normal 150-450 [facility] Comment on above: Performed By: #### C MP, MG, PHOS, GGT #### [facility] [address] [place] [address] Dr. Yogi Naidu RBC 5.14 106/ul Normal 4.70-6.10 [facility] Comment on above: Performed By: #### C MP, MG, PHOS, GGT #### [facility] [address] [place] [address] Dr. Yogi Naidu RDW 14.0 % Normal 11.0-15.0 [facility] Comment on above: Performed By: #### C MP, MG, PHOS, GGT #### [facility] [address] [place] [address] Dr. Yogi Naidu SEG # 5.33 103/ul Normal 1.40-6.50 [facility] Comment on above: Performed By: #### C MP, MG, PHOS, GGT #### [facility] [address] [place] [address] Dr. Yogi Naidu SEG % 86.0 % Critically high 43.0-75.0 [facility] Comment on above: Performed By: #### C MP, MG, PHOS, GGT #### [facility] [address] [place] [address] Dr. Yogi Naidu WBC 6.2 103/ul Normal 4.0-11.0 [facility] Comment on above: Performed By: #### C MP, MG, PHOS, GGT #### [facility] [address] [place] [address] Dr. Yogi Naidu GGTon 11-21-2021 Gamma glutamyl transferase [Catalytic activity/Vol] 35 U/L Normal 15-85 [facility] Comment on above: Performed By: #### C MP, MG, PHOS, GGT #### [facility] [address] [place] [address] Dr. Yogi Naidu MAGNESIUMon 11-21-2021 Magnesium [Mass/Vol] 1.9 mg/dL Normal 1.8-2.4 [facility] Comment on above: Performed By: #### C MP, MG, PHOS, GGT #### [facility] [address] [address] [address] Yogi Naidu PHOSPHORUSon 11-21-2021 Phosphate [Mass/Vol] 3.0 mg/dL Normal 2.6-4.7 [facility] Comment on above: Performed By: #### C MP, MG, PHOS, GGT #### [facility] [address] [place] [address] Dr. Yogi Naidu PROF 14(COMP METB)on 022 Albumin [Mass/Vol] 3.8 g/dL Normal 3.4-5.0 [facility] Comment on above: Performed By: #### C MP, MG, PHOS, GGT #### [facility] [address] [place] [address] Dr. Yogi Naidu Albumin/Globulin [Mass ratio] 1.7 {ratio} Normal [facility] Comment on above: Performed By: #### C MP, MG, PHOS, GGT #### [facility] [address] [place] [address] Dr. Yogi Naidu ALP [Catalytic activity/Vol] 80 U/L Normal 46-116 [facility] Comment on above: Performed By: #### C MP, MG, PHOS, GGT #### [facility] [address] [place] [address] Dr. Yogi Naidu ALT [Catalytic activity/Vol] 21 U/L Normal 16-63 [facility] Comment on above: Performed By: #### C MP, MG, PHOS, GGT #### [facility] [address] [place] [address] Dr. Yogi Naidu Anion gap [Moles/Vol] 13.7 mmol/L Normal [facility] Comment on above: Performed By: #### C MP, MG, PHOS, GGT #### [facility] [address] [place], [place] [id number] Dr. Yogi Naidu AST [Catalytic activity/Vol] 15 U/L Normal 15-37 [facility] Comment on above: Performed By: #### C MP, MG, PHOS, GGT #### [facility] [address] [place] [address] Dr. Yogi Naidu Bilirubin [Mass/Vol] 0.6 mg/dL Normal 0.2-1.0 [facility] Comment on above: Performed By: #### C MP, MG, PHOS, GGT #### [facility] [address] [place] [address] Dr. Yogi Naidu Calcium [Mass/Vol] 8.9 mg/dL Normal 8.5-10.1 [facility] Comment on above: Performed By: #### C MP, MG, PHOS, GGT #### [facility] [address] [place] [address] Dr. Yogi Naidu Chloride [Moles/Vol] 107 mmol/L Normal 98-107 [facility] Comment on above: Performed By: #### C MP, MG, PHOS, GGT #### [facility] [address] [place] [address] Dr. Yogi Naidu CO2 [Moles/Vol] 25.4 mmol/L Normal 21.0-32.0 [facility] Comment on above: Performed By: #### C MP, MG, PHOS, GGT #### [facility] [address] [place] [address] Dr. Yogi Naidu Creatinine [Mass/Vol] 1.35 mg/dL Critically high 0.70-1.30 [facility] Comment on above: Performed By: #### C MP, MG, PHOS, GGT #### [facility] [address] [place] [address] Dr. Yogi Naidu EGFR-AF SLOVAK >60 Normal >=60 [facility] Comment on above: Performed By: #### C MP, MG, PHOS, GGT #### [facility] [address] [place] [address] Dr. Yogi Naidu EGFR-NON AF SLOVAK 52 mL/min/1.73m2 Critically low >=60 [facility] Comment on above: Performed By: #### C MP, MG, PHOS, GGT #### [facility] [address] [place] [address] Dr. Yogi Naidu Globulin (S) [Mass/Vol] 2.3 g/dL Normal [facility] Comment on above: Performed By: #### C MP, MG, PHOS, GGT #### [facility] [address] [place] [address] Dr. Yogi Naidu Glucose [Mass/Vol] 93 mg/dL Normal 74-106 [facility] Comment on above: Performed By: #### C MP, MG, PHOS, GGT #### [facility] [address] [place] [address] Dr. Yogi Naidu Potassium [Moles/Vol] 4.1 mmol/L Normal 3.5-5.1 [facility] Comment on above: Performed By: #### C MP, MG, PHOS, GGT #### [facility] [address] [place] [address] Dr. Yogi Naidu Protein [Mass/Vol] 6.1 g/dL Critically low 6.4-8.2 [facility] Comment on above: Performed By: #### C MP, MG, PHOS, GGT #### [facility] [address] [place] [address] Dr. Yogi Naidu Sodium [Moles/Vol] 142 mmol/L Normal 136-145 [facility] Comment on above: Performed By: #### C MP, MG, PHOS, GGT #### [facility] [address] [place] [address] Dr. Yogi Naidu Urea nitrogen [Mass/Vol] 30.0 mg/dL Critically high 7.0-18 .0 [facility] Comment on above: Performed By: #### C MP, MG, PHOS, GGT #### [facility] [address] [place] [address] Dr. Yogi Naidu Urea nitrogen/Creatinine [Mass ratio] 22.2 mg/mg Normal [facility] Comment on above: Performed By: #### C MP, MG, PHOS, GGT #### [facility] [address] [address] [address] CHEST W IVCONon 0 CT CHEST W IVCON * * *Final Report* * * DATE OF EXAM: Apr 16 2020 12:22PM [facility] 0539 - CT CHEST [...] the abdomen and pelvis are dictated separately. Audio/Video Engineer (topogram) images: No additional findings. - IMPRESSION: Stable exam with no compelling evidence of intrathoracic metastatic disease. Small nonspecific (<6 mm) pulmonary nodules are unchanged, most of these nodules are unchanged since 2012 and are likely benign. [employer] Video Games Servicer: RUSTAM Transcribe Date/Time: Apr 16 2020 12:52P Dictated by : ESDRAS SALAZAR MD This examination was interpreted and the report reviewed and electronically signed by: ESDRAS SALAZAR MD on Apr 16 2020 1:05PM EST [id number] [facility] CT LIVER/PELVIS WO/W IVCONon 04-16-2020 CT LIVER/PELVIS WO/W IVCON * * *Final Report* * * DATE OF EXAM: Apr 16 2020 12:22PM [facility] 0551 - CT LIVER/PELVIS [...] subcentimeter hypervascular lesion in the pancreatic head. [employer] Video [employer] Servicer: PSCB Transcribe Date/Time: Apr 16 2020 12:37P Dictated by : HAIR GUTIÉRREZ MD This examination was interpreted and the report reviewed and electronically signed by: HAIR GUTIÉRREZ MD on Apr 16 2020 12:47PM EST [id number] [facility] NURSING PROGon 04-16-2020 NURSING PROG HNO ID: [id number] Author: Latisha Boles (Rn) TEENA Hernandez Service: [...] DATE: April 16, 2020 TIME: 12:00 PM [facility] PROGRESSon 04-16-2020 PROGRESS HNO ID: [id number] Author: Kasey Soto (Rt) Service: Radiology Author Type: Photo Offset Printer Type: Progress Notes Filed: 04/16/2020 12:13 PM [...] RT Jonnie April 16, 2020 12:05 PM [facility]10[facility] SUSAN SHERMAN ([id number]) 1950 M TRN Date Time Provider Department 04/10/20 REBECA ACEVEDO) AVXRJASS During your visit today, we recorded the [...] Encounter Status:Closed by REBECA ACEVEDO on 04/10/20 [facility] Vital Signs Date Time Vital Sign Value Performing Clinician Facility 05-20-2024 08:48-0500 Body height 182.[address] 05-20-2024 08:48-0500 Body mass index (BMI) [Ratio] 20.75 kg/m2 [address] 05-20-2024 08:48-0500 Body weight 69.[address] 05-20-2024 08:48-0500 Diastolic blood pressure 72 mm[Hg] [address] 05-20-2024 08:48-0500 Systolic blood pressure 114 mm[Hg] [address] 04-15-2024 08:26-0400 Body height 182.9 cm Shea Brannon MD Work Phone: [facility] 04-15-2024 08:26-0400 Body mass index (BMI) [Ratio] 20.75 kg/m2 Shea Brannon MD Work Phone: [facility] 04-15-2024 08:26-0400 Body weight 69.4 kg Shea Brannon MD Work Phone: [facility] 04-15-2024 08:26-0400 Diastolic blood pressure 78 mm[Hg] Shea Brannon MD Work Phone: [facility] 04-15-2024 08:26-0400 Heart rate 68 /min Shea Brannon MD Work Phone: [facility] 04-15-2024 08:26-0400 Systolic blood pressure 116 mm[Hg] Shea Brannon MD Work Phone: [facility] 02-17-2024 09:43-0400 Blood Pressure Location Sugey Lue [facility] 02-17-2024 09:43-0400 Diastolic blood pressure 80 mm[Hg] Sugey Lue [facility] 02-17-2024 09:43-0400 Heart rate 66 /min Sugey Lue [facility] 02-17-2024 09:43-0400 Respiratory rate 16 /min Sugey Lue [facility] 02-17-2024 09:43-0400 Systolic blood pressure 130 mm[Hg] Sugey Lue [facility] 08-13-2023 08:43-0500 Blood Pressure Location Sugey Lue [facility] 08-13-2023 08:43-0500 Diastolic blood pressure 84 mm[Hg] Sugey Lue [facility] 08-13-2023 08:43-0500 Systolic blood pressure 132 mm[Hg] Sugey Lue [facility] 05-27-2023 09:51-0500 Blood Pressure Location Sugey Lue [facility] 05-27-2023 09:51-0500 Diastolic blood pressure 83 mm[Hg] Sugey Lue [facility] 05-27-2023 09:51-0500 Heart rate 92 /min Sugey Lue [facility] 05-27-2023 09:51-0500 Respiratory rate 16 /min Sugey Lue [facility] 05-27-2023 09:51-0500 Systolic blood pressure 131 mm[Hg] Sugey Lue [facility] 04-10-2023 08:37-0400 Body height 182.9 cm Shea Brannon MD Work Phone: [facility] 04-10-2023 08:37-0400 Body mass index (BMI) [Ratio] 25.09 kg/m2 Shea Brannon MD Work Phone: [facility] 04-10-2023 08:37-0400 Body weight 83.92 kg Shea Brannon MD Work Phone: [facility] 04-10-2023 08:37-0400 Diastolic blood pressure 58 mm[Hg] Shea Brannon MD Work Phone: [facility] 04-10-2023 08:37-0400 Heart rate 62 /min Shea Brannon MD Work Phone: [facility] 04-10-2023 08:37-0400 Systolic blood pressure 106 mm[Hg] Shea Brannon MD Work Phone: [facility] 02-25-2023 09:09-0400 Blood Pressure Location Sugey Lue [facility] 02-25-2023 09:09-0400 Diastolic blood pressure 68 mm[Hg] Sugey Lue [facility] 02-25-2023 09:09-0400 Heart rate 68 /min Sugey Lue [facility] 02-25-2023 09:09-0400 Respiratory rate 16 /min Sugey Lue [facility] 02-25-2023 09:09-0400 Systolic blood pressure 130 mm[Hg] Sugey Lue [facility] 01-01-2023 13:30-0400 Body height 182.88 cm Imad Asaad Other [employer] [facility] [employer] Other 01-01-2023 13:30-0400 Body mass index (BMI) [Ratio] 24.41 kg/m2 Imad Asaad Other [employer] Other 01-01-2023 13:30-0400 Body weight 81.65 kg Imad Asaad Other [employer] Other 01-01-2023 13:30-0400 Diastolic blood pressure 76 mm[Hg] Imad Asaad Other [employer] Other 01-01-2023 13:30-0400 Systolic blood pressure 146 mm[Hg] Imad Asaad Other [employer] Other 12-11-2022 13:53-0400 Diastolic blood pressure 78 mm[Hg] DO Elvira Bunting Work Phone: [facility] 12-11-2022 13:53-0400 Heart rate 74 /min DO Elvira Bunting Work Phone: [facility] 12-11-2022 13:53-0400 Respiratory rate 16 /min DO Elvira Bunting Work Phone: [facility] 12-11-2022 13:53-0400 SaO2% (BldA) [Mass fraction] 98 % DO Elvira Bunting Work Phone: [facility] 12-11-2022 13:53-0400 Systolic blood pressure 125 mm[Hg] DO Elvira Bunting Work Phone: [facility] 12-11-2022 11:28-0400 Body height 182.88 cm DO Elvira Bunting Work Phone: [facility] 12-11-2022 11:28-0400 Body weight 78.92 kg DO Elvira Bunting Work Phone: [facility] 11-11-2022 07:42-0400 Body height 185.42 cm DO Elvira Bunting Work Phone: [facility] 11-11-2022 07:42-0400 Body weight 104.32 kg DO Elvira Bunting Work Phone: [facility] 10-08-2022 08:08-0400 Blood Pressure Location Sugey Lue [facility] 10-08-2022 08:08-0400 Diastolic blood pressure 96 mm[Hg] Sugey Lue [facility] 10-08-2022 08:08-0400 Heart rate 98 /min Sugey Lue [facility] 10-08-2022 08:08-0400 Systolic blood pressure 137 mm[Hg] Sugey Lue [facility] 09-10-2022 09:34-0400 Blood Pressure Location Sugey Lue [facility] 09-10-2022 09:34-0400 Diastolic blood pressure 89 mm[Hg] Sugey Lue [facility] 09-10-2022 09:34-0400 Heart rate 86 /min Sugey Lue [facility] 09-10-2022 09:34-0400 Respiratory rate 16 /min Sugey Lue [facility] 09-10-2022 09:34-0400 Systolic blood pressure 140 mm[Hg] S[facility]y Lue [facility] 03-27-2022 15:30-0400 Body height 182.88 cm Elvira R Bunting Work Phone: [facility] [address] DO Work Phone: 03-27-2022 15:30-0400 Body mass index (BMI) [Ratio] 26.72 kg/m2 Elvira R Bunting Work Phone: [facility] DO Work Phone: 03-27-2022 15:30-0400 Body surface area Derived from formula 2.12 m2 Elvira R Bunting Work Phone: [facility] [address] DO Work Phone: 03-27-2022 15:30-0400 Body weight 89.36 kg Elvira R Bunting Work Phone: [facility] [address] DO Work Phone: 03-27-2022 15:30-0400 Diastolic blood pressure 80 mm[Hg] Elvira R Bunting Work Phone: [facility] [address] DO Work Phone: 03-27-2022 15:30-0400 Heart rate 68 /min Elvira R Bunting Work Phone: [facility] DO Work Phone: 03-27-2022 15:30-0400 Systolic blood pressure 126 mm[Hg] Elvira Schultz Work Phone: [facility] DO Work Phone: 12-24-2021 08:22-0400 Blood Pressure Location Mike Alves Jr. [facility] 12-24-2021 08:22-0400 Diastolic blood pressure 79 mm[Hg] Mike Alves Jr. [facility] 12-24-2021 08:22-0400 Heart rate 100 /min Mike Alves Jr. [facility] 12-24-2021 08:22-0400 Respiratory rate 16 /min Mike Alves Jr. [facility] 12-24-2021 08:22-0400 Systolic blood pressure 107 mm[Hg] Mike Alves Jr. [facility] Encounters Encounter Date Encounter Type Care Provider Facility Start: 08-17-2024 ambulatory Sugey Arteaga Facility:[facility] Start: 05-20-2024 End: 05-20-2024 ambulatory [facility] Start: 05-20-2024 End: 05-20-2024 Subsequent hospital visit by physician Hung Mcgarry Echo/Vasc Room 2 [facility] Comment on above: Shortness of breath Start: 05-09-2024 End: 05-09-2024 ambulatory Branden Woodward Facility:[facility] Start: 04-18-2024 End: 04-18-2024 Telephone encounter Liver Txp Coordinator Work Phone: [facility] Start: 04-15-2024 End: 04-15-2024 Office outpatient visit 25 minutes Shea Brannon MD Work Phone: [facility] Comment on above: Shortness of breath (Primary Dx); Sick sinus syndrome (Multi); Essential hypertension; Mixed hyperlipidemia; Pacemaker; BMI 20.0-20.9, adult; Liver transplanted (Multi); Former smoker Start: 04-15-2024 End: 04-15-2024 ambulatory [facility] Start: 04-11-2024 End: 04-11-2024 Bamboo flowsheet Jaswinder A Felter TRUSS ASSEMBLER-AGRICULTURE EXTENSION SPECIALIST Work Phone: [facility] Start: 04-11-2024 End: 04-11-2024 Bamboo flowsheet Jaswinder A Felter [employer]USS ASSEMBLER-AGRICULTURE EXTENSION SPECIALIST Work Phone: [facility] Start: 04-11-2024 End: 04-11-2024 Office outpatient visit 15 minutes Jaswinder A Felter [employer]USS ASSEMBLER-AGRICULTURE EXTENSION SPECIALIST Work Phone: [facility] Comment on above: Melanocytic nevus of trunk; Seborrheic keratosis; Actinic keratosis Start: 04-11-2024 End: 04-11-2024 ambulatory JASWINDER A FELTER Not Available Start: 02-17-2024 End: 02-17-2024 ambulatory Sugey Arteaga Facility:[facility] Start: 02-17-2024 End: 02-17-2024 Lab Drop off Sugey Arteaga [facility] Start: 02-17-2024 End: 02-17-2024 ambulatory Sugey Arteaga Facility:[facility] Start: 02-17-2024 End: 02-17-2024 Patient encounter procedure Sugey Arteaga [facility] Start: 02-05-2024 End: 02-05-2024 Patient encounter procedure DO Elvira Bunting Work Phone: [facility] Start: 02-05-2024 End: 02-05-2024 ambulatory DO Elvira Bunting Work Phone: [facility] Work Phone: Start: 12-04-2023 E-mail encounter fro m caregiver Yulisa Lewis RN [facility] Start: 12-04-2023 Patient encounter procedure Yulisa Lewis RN [facility] Comment on above: Lab Reminder Start: 11-06-2023 End: 11-06-2023 Patient encounter procedure DO Elvira Bunting Work Phone: [facility] Start: 11-06-2023 End: 11-06-2023 ambulatory DO Elvira Bunting Work Phone: [facility] Work Phone: Start: 10-24-2023 Refill Nely Tony s TRUSS ASSEMBLER.AGRICULTURE EXTENSION SPECIALIST Work Phone: [facility] Comment on above: Refill Request Start: 08-17-2023 Refill Nely Tony s TRUSS ASSEMBLER.AGRICULTURE EXTENSION SPECIALIST Work Phone: [facility] Comment on above: Refill Request Start: 08-13-2023 End: 08-13-2023 ambulatory Sugey Arteaga Facility: [place] Start: 08-13-2023 End: 08-13-2023 Patient encounter procedure Sugey Arteaga [facility] [place] Start: 08-07-2023 End: 08-07-2023 ambulatory Branden Woodward Facility:[facility] Start: 07-27-2023 Telephone encounter Yulisa Lewis RN [facility] Comment on above: Insurance Authorizat ion (Tacrolimus ) Start: 05-27-2023 End: 05-27-2023 ambulatory Sugey Arteaga Facility: [place] Start: 05-27-2023 End: 05-27-2023 Patient encounter procedure Sugey Arteaga [facility] Start: 05-04-2023 End: 05-04-2023 ambulatory DO Elvira Bunting Work Phone: [facility] Work Phone: Start: 05-04-2023 End: 05-04-2023 Patient encounter procedure DO Elvira Bunting Work Phone: [facility] Start: 04-10-2023 End: 04-10-2023 Office outpatient visit 15 minutes Shea Brannon MD Work Phone: [facility] Comment on above: Sick sinus syndrome (CMS/HCC) (Primary Dx); Essential hypertension; Mixed hyperlipidemia; Overweight with body mass index (BMI) of 26 to 26.9 in adult; Liver transplanted (CMS/HCC); Pacemaker Start: 02-25-2023 End: 02-25-2023 ambulatory Sugey SimonShaylee Johnsvesta Facility:[facility] Start: 02-25-2023 End: 02-25-2023 Patient encounter procedure Sugey MontesShaylee Chandler [facility] Start: 02-23-2023 Telephone encounter Yulisa Lewis RN [facility] Comment on above: Patient Update; Orde rs (New standing lab order ) Start: 01-15-2023 End: 01-15-2023 ambulatory DO Elvira Bunting Work Phone: [facility] Work Phone: Start: 01-15-2023 End: 01-15-2023 Patient encounter procedure DO Elvira Bunting Work Phone: [facility] Work Phone: Start: 01-01-2023 End: 01-01-2023 ambulatory Imad Asaad Other [facility] Other Start: 01-01-2023 Patient encounter procedure Imad Asaad [facility] Start: 12-11-2022 End: 12-11-2022 Admission to same day surgery center DO Elvira Bunting Work Phone: [facility] Work Phone: Start: 12-08-2022 End: 12-08-2022 ambulatory Imad Asaad Other [facility] Other Start: 12-08-2022 Telephone encounter Imad Asaad [facility] Start: 11-28-2022 End: 11-28-2022 ambulatory Imad Asaad Other [facility] Other Start: 11-28-2022 Telephone encounter Imad Asaad [facility] Start: 11-12-2022 End: 11-12-2022 ambulatory Imad Asaad Other [facility] Other Start: 11-12-2022 Telephone encounter Imad Asaad [facility] Start: 11-11-[address] Elvira Schultz Facility:[id number] Start: 11-11-2022 End: 11-11-2022 ambulatory DO Elvira Bunmaggie Work Phone: [facility] Work Phone: Start: 11-11-2022 End: 11-11-2022 Patient encounter procedure DO Elvira Bunting Work Phone: [facility] Main [place] Work Phone: Start: 11-06-2022 End: 11-06-2022 Patient encounter procedure DO Elvira Bunting Work Phone: [facility] [place] Work Phone: Start: 10-31-2022 End: 10-31-2022 Patient encounter procedure DO Elvira Bunmaggie Work Phone: [facility] Start: 10-31-[address] Elvira Schultz Facility:[id number] Start: 10-20-2022 End: 10-21-[address] ELVIRA SCHULTZ Facility:[facility] Start: 10-09-[address] Elvira Schultz Facility:[id number] Start: 10-09-2022 End: 10-09-2022 ambulatory DO Elvira Schultz Work Phone: [facility] Work Phone: Start: 10-09-2022 End: 10-09-2022 Patient encounter procedure DO Elvira Schultz Work Phone: [facility] Start: 10-08-2022 End: 10-08-2022 Patient encounter procedure Sugey Arteaga [facility] Start: 09-26-2022 End: 09-26-[address] ELVIRA SCHULTZ Facility:[facility] Start: 09-22-2022 End: 09-22-2022 Patient encounter procedure Sugey Arteaga [facility] Start: 09-10-2022 End: 09-10-2022 Patient encounter procedure Sugey Arteaga [facility] Start: 09-03-2022 Refill Neyl parker APRN.AGRICULTURE EXTENSION SPECIALIST Work Phone: [facility] Comment on above: Refill Request Start: 08-19-2022 End: 08-20-[address] ELVIRA SCHULTZ Facility:[facility] Start: 07-22-2022 End: 07-23-[address] ELVIRA SCHULTZ Facility:[facility] Start: 06-16-2022 End: 06-17-[address] ELVIRA SCHULTZ Facility:[facility] Start: 05-19-2022 End: 05-20-[address] ELVIRA SCHULTZ Facility:[facility] Start: 05-14-2022 Rx Renewal Elvira Pizano ng Work Phone: [facility] 250 DO Work Phone: Start: 04-30-[address] Elvira Schultz Facility:[id number] Start: 04-30-2022 End: 04-30-2022 ambulatory DO Elvira Schultz Work Phone: [facility] Work Phone: Start: 04-30-2022 End: 04-30-2022 Patient encounter procedure DO Elvira Schultz Work Phone: [facility] Start: 04-21-2022 End: 04-22-2022 ambulatory DOCTOR MISC Facility:[facility] Start: 03-27-2022 Office outpatient vi sit 15 minutes Elvira Schultz Work Phone: [facility] 250 DO Work Phone: Start: 03-27-[address] Shea Brannon Facility: Start: 03-17-2022 End: 03-18-2022 ambulatory DOCTOR MISC Facility:[facility]1 Start: 02-26-2022 End: 02-26-2022 Patient encounter procedure VINICIUS RUSSELL [facility] Start: 02-18-2022 End: 02-19-[address] ELVIRA SCHULTZ Facility:[facility] Start: 01-22-2022 Encounter for preprocedural laboratory examination DR MIKE June [facility] Start: 01-22-2022 End: 01-22-[address] ELVIRA SCHULTZ Facility:[facility] Start: 01-21-2022 End: 01-22-[address] MIKE June Facility:[facility] Start: 01-21-2022 End: 01-22-2022 Encounter for preprocedural laboratory examination DR MIKE June Facility:[facility]1 Start: 01-14-2022 Encounter for preprocedural cardiovascular examination DR MIKE June [facility] Start: 01-13-2022 End: 01-14-2022 Encounter for preprocedural cardiovascular examination DR ELVIRA SCHULTZ Facility:[facility] Start: 01-13-2022 End: 01-14-[address] ELVIRA SCHULTZ Facility:[facility] Start: 01-07-2022 Rx Renewal [facility]ill [facility] Work Phone: Start: 12-24-2021 End: 12-24-2021 Patient encounter procedure Mike Alves Jr. [facility] Start: 12-23-2021 Telephone encounter Shea umanzor MD Work Phone: [facility] 600 DO Work Phone: Start: 12-21-2021 End: [...] Rx Renewal [facility]ill MD [facility]: [facility] Work Phone: Start: 03-26-2017 Ambulatory SHEA BRANNON Facedmond lity:[id number] Procedures Date Procedure Procedure Detail Performing Clinician Start: 05-20-2024 Echo tthrc r-t 2d w/wom-mode compl spec&colr d Shea Brannon MD Work Phone: Start: 04-11-2024 CRYOTHERAPY SKIN LESION Jaswinder Hinojosa TRUSS ASSEMBLER-AGRICULTURE EXTENSION SPECIALIST Work Phone: Start: 04-09-2023 H/O: liver recipient [...] on above: Performed By: #### BOX #### [facility] [address] [place] [address] Dr. Yogi Naidu Start: 01-22-2022 Transrectal biopsy of prostate using ultrasound guidance Sugey Arteaga Start: 12-21-2021 PSA screening DOCTOR MISC Comment on above: Performed By: #### MERLE MORALES #### [facility] [address] [place] [address] Dr. Yogi Naidu Start: 11-09-2019 Transrectal biopsy of prostate using ultrasound guidance Mike Alves Jr. Start: 05-19-2018 Transrectal biopsy of prostate using ultrasound guidance Mike Alves Jr. Start: 01-19-2015 H/O: liver recipient Liver transplanted Nely Ibarra APRN.AGRICULTURE EXTENSION SPECIALIST Work Phone: Start: 02-11-2012 Colonoscopy Nely Ibarra APRN.AGRICULTURE EXTENSION SPECIALIST Work Phone: Appendectomy Mike June Appendectomy Shea Brannon MD Work Phone: Biopsy of prostate Shea Brannon MD Work Phone: Comment on above: Aug 06; Cardiac pacemaker, d evice (physical object) Mike Alves Jr. Colonoscopy Mike June Colonoscopy Shea Brannon MD Work Phone: Comment on above: [id number]; H/O: liver recipient Liver repla alessandro by transplant (HCC) Nely Ibarra APRN.AGRICULTURE EXTENSION SPECIALIST Work Phone: H/O: liver recipient Transplante d liver (HCC) Cesar Borrego MD Work Phone: H/O: liver recipient Liver transplanted Simon Brannon MD Work Phone: H/O: liver recipient Liver trans plant recipient DO Elvira Schultz Work Phone: H/O: liver recipient Liver repla alessandro by transplant (HCC) Nely Ibarra APRN.AGRICULTURE EXTENSION SPECIALIST Work Phone: H/O: liver recipient Liver trans planted (CMS/HCC) Shea Brannon MD Work Phone: H/O: liver recipient Liver repla alessandro by transplant (HCC) Nely Ibarra APRN.AGRICULTURE EXTENSION SPECIALIST Work Phone: H/O: liver recipient Transplante d liver (HCC) Nely Fred TRUSS ASSEMBLER.AGRICULTURE EXTENSION SPECIALIST Work Phone: H/O: liver recipient Liver trans [...] Author Start: 02-19-2028 Lipid panel Lipid Screening [facility] Start: 02-19-2028 LIPID SCREEN LIPID SCREEN [facility] Start: 07-22-2027 LIPID SCREEN LIPID SCREEN [facility] Start: 2027 RSV Vaccine (1 - 1-d ose 75+ series) RSV Vaccine (1 - 1-dose 75+ series) [facility] Start: 02-15-2027 [facility] Start: 10-15-2026 LIPID SCREEN LIPID SCREEN [facility] Start: 08-19-2026 LIPID SCREEN LIPID SCREEN [facility] Start: 08-16-2026 Diabetes Screening Diabetes Screenin [facility] Start: 06-16-2026 [facility] Start: 02-18-2026 DIABETES SCREEN DIABETES SCREEN [facility] Start: 08-19-2025 DIABETES SCREEN DIABETES SCREEN [facility] Start: 04-21-2025 End: 04-21-2025 Patient encounter procedure 04/21/2025 8:30 AM EST Office Visit [facility] [address] [place] [address] Shea Brannon MD [address] [facility] [address] [place] [address] [facility] Start: 04-10-2025 End: 04-10-2025 Patient encounter procedure 04/10/2025 8:55 AM EDT Office Visit [facility] [address] [place] [address] Jaswinder Hinojosa, TRUSS ASSEMBLER-AGRICULTURE EXTENSION SPECIALIST [address] [place] [address] [facility] Start: 10-15-2024 [address]ES [address]EN [address] SCREEN [facility] Start: 08-19-2024 DIABETES SCREEN DIABETES SCREEN [facility] Start: 05-20-2024 End: 05-20-2024 Patient encounter procedure 05/20/2024 8:45 AM EST Appointment [address] [place] [id number] [facility] Start: 04-15-2024 End: 04-15-2026 US Heart Transthoracic Transthoracic Echo Complete Echocardiography Routine Shortness of breath Expected: 04/15/2024 (Approximate), Expires: 04/15/2026 [facility] Service Area Work Phone: Comment on above: Expected: 04/15/2024 (Approximate), Expires: 04/15/2026 Start: 04-15-2024 End: 04-15-2024 Patient encounter procedure 04/15/2024 8:30 AM EDT Office Visit [facility] [address] [facility] [address] [place] [address] Shea Brannon MD [address] [facility] [address] [place] [address] [facility] Start: 04-11-2024 End: 04-11-2024 Patient encounter procedure 04/11/2024 9:05 AM EDT Office Visit [facility] [address] [place] [address] Jaswinder Hinojosa, TRUSS ASSEMBLER-AGRICULTURE EXTENSION SPECIALIST [address] [place] [address] Arrived [facility] Comment on above: Arrived Start: 02-14-2024 Influenza vaccination Influenza Vacc ine (#1) [facility] Start: 06-15-2023 Advance Directive Discussion Advance Directive Discussion [facility] Start: 06-15-2023 Behavioral Health Screening Behavioral Health Screening [facility] Start: 06-15-2023 Depression Assessment Depression Ass essment [facility] Start: 04-10-2023 FUV, Provider: Shea Brannon, Status: Pen, Time: 8:30 AM FUV, Provider: Shea Brannon, Status: Pen, Time: 8:30 AM [facility] 250 DO Work Phone: Start: 02-13-2023 Influenza vaccination INFLUENZA (#1) [facility] Start: 12-11-2022 [facility] Start: 06-15-2022 ADVANCE DIRECTIVE DISCUSSION ADVANCE DIRECTIVE DISCUSSION [facility] Start: 06-15-2022 DEPRESSION ASSESSMENT DEPRESSION ASS ESSMENT [facility] Start: 02-13-2022 Influenza vaccination C [facility] Start: 02-10-2022 Screening for malign ant neoplasm of colon [facility] Start: 01-13-2022 FUV, Provider: Shea Brannon, Status: Pen, Time: 8:20 AM FUV, Provider: Shea Brannon, Status: Pen, Time: 8:20 AM [facility] 600 DO Work Phone: Start: 12-06-2021 FUV, Provider: Shea Brannon, Status: Pen, Time: 8:30 AM FUV, Provider: Shea Brannon, Status: Pen, Time: 8:30 AM [facility] 250 DO Work Phone: Start: 06-15-2021 ADVANCE DIRECTIVE DISCUSSION ADVANCE DIRECTIVE DISCUSSION [facility] Start: 04-27-2021 Pneumococcal Vaccine : 65+ Years (3 - PPSV23 or PCV20) Pneumococcal Vaccine: 65+ Years (3 - PPSV23 or PCV20) [facility] Start: 06-22-2020 Pneumococcal Vaccine : 65+ (3 of 3 - PPSV23 or PCV20) Pneumococcal Vaccine: 65+ (3 of 3 - PPSV23 or PCV20) [facility] Start: 06-22-2020 Pneumococcal Vaccine : 65+ Years (3 of 3 - PPSV23 or PCV20) Pneumococcal Vaccine: 65+ Years (3 of 3 - PPSV23 or PCV20) [facility] Start: 06-22-2020 Shingrix Vaccine (2 of 2) Shingrix Vaccine (2 of 2) [facility] Start: 06-22-2020 Zoster Vaccines (2 o f 2) Zoster Vaccines (2 of 2) [facility] Start: 10-26-2017 PNEUMOVAX AGE 65 AND OVER WITH 5YR LOOKBACK (#1) PNEUMOVAX AGE 65 AND OVER WITH 5YR LOOKBACK (#1) [facility] Start: 2017 Abdominal aortic aneurysm screening Abdominal Aortic Aneurysm (AAA) Screening [facility] Start: 2017 [facility] Start: 2017 ADULT PREVNAR-13 [facility] Start: 10-26-2013 PNEUMOCOCCAL: 65+ (2 - PCV) PNEUMOCOCCAL: 65+ (2 - PCV) [facility] Start: 02-10-2013 Colonoscopy COLONOSCOPY [facility] Start: 02-10-2013 COLORECTAL CANCER SCREENING COLORECTAL CANCER SCREENING [facility] Start: 02-10-2013 Screening for malign ant neoplasm of colon [facility] Start: 11-23-2012 HEPATITIS A (2 of 3 - Hep A Twinrix risk 3-dose series) HEPATITIS A (2 of 3 - Hep A Twinrix risk 3-dose series) [facility] Start: 11-23-2012 Hepatitis A Vaccines (2 of 3 - Hep A Twinrix risk 3-dose series) Hepatitis A Vaccines (2 of 3 - Hep A Twinrix risk 3-dose series) [facility] Start: 11-23-2012 HEPATITIS B (2 of 3 - Hep B Twinrix risk 3-dose series) HEPATITIS B (2 of 3 - Hep B Twinrix risk 3-dose series) [facility] Start: 11-23-2012 Hepatitis B Vaccines (2 of 3 - Hep B Twinrix risk 3-dose series) Hepatitis B Vaccines (2 of 3 - Hep B Twinrix risk 3-dose series) [facility] Start: 2012 RSV High Risk: (Elde rly (60+) or Population) (1 - Risk 60-74 years 1-dose series) RSV High Risk: (Elderly (60+) or Population) (1 - Risk 60-74 years 1-dose series) [facility] Start: 2012 RSV Vaccine (1 - 1-d ose 60+ series) RSV Vaccine (1 - 1-dose 60+ series) [facility] Start: 2002 SHINGRIX VACCINE (1 of 2) SHINGRIX VACCINE (1 of 2) [facility] Start: 1997 COLOGUARD (FIT-DNA) COLOGUARD (FIT-D NA) [facility] Start: [address] [facility] Start: 1997 FECAL OCCULT BLOOD FECAL OCCULT BLOO D [facility] Start: 1997 Screening for malign ant neoplasm of colon [facility] Start: 1997 SIGMOIDOSCOPY SIGMOIDOSCOPY [facility] Start: 1974 DTaP/Tdap/Td Vaccine s (1 - Tdap) DTaP/Tdap/Td Vaccines (1 - Tdap) [facility] Start: 1971 SHINGRIX VACCINE (1 of 2) SHINGRIX VACCINE (1 of 2) [facility] Start: 1971 Urine microalbumin profile [facility] Start: 1970 Anxiety Screening Anxiety Screening [facility] Start: 1970 Depression Screening Depression Scre ening [facility] Start: 1964 Adult depression screening assessment DEPRESSION SCREENING [facility] Start: 1964 COVID-19 VACCINE (1) COVID-19 VACCIN E (1) [facility] Start: 1957 COVID-19 VACCINE (#1) COVID-19 VACCI NE (#1) [facility] Start: 1952 COVID-19 VACCINE (#1) COVID-19 VACCI NE (#1) [facility] Start: 1952 ABDOMINAL AORTIC ANEURYSM SCREENING ABDOMINAL AORTIC ANEURYSM SCREENING [facility] Start: 1952 Abdominal aortic aneurysm screening Abdominal Aortic Aneurysm Screening [facility] Start: 1952 Lipid panel Lipid Panel [facility] Start: 1952 Medicare Annual Wellness Visit Medicare Annual Wellness Visit (AWV) [facility] Start: 1952 Screening for malign ant neoplasm of colon [facility] Calprotectin [Mass/mass] in Stool [facility] Ova and parasites identified in Unspecified specimen by Light microscopy [facility] Patient Education Gastritis Esop hageal Dilation Colon Polypectomy (DC) [facility] Work Phone: Potassium [Moles/mas s] in Stool [facility] Immunizations Immunization Date Immunization Notes Care Provider Fa tina 01-27-2023 Flu vaccine, quadrivalent, high-dose, preservative free, age 65y+ (FLUZONE) Shea Brannon MD Work Phone: [facility] Work Phone: 01-27-2023 influenza virus vaccine, unspecified formulation Sugey Arteaga [facility] 05-30-2022 Flu vaccine, quadrivalent, high-dose, preservative free, age 65y+ (FLUZONE) Shea Brannon MD Work Phone: [facility] Work Phone: 05-30-2022 influenza virus vaccine, unspecified formulation Sugey Arteaga [facility] 04-20-2021 Fluad Quadrivalent 0 .5 ML Intramuscular Prefilled Syringe Elvira R Bunting Work Phone: [facility] 250 DO Work Phone: 04-20-2021 influenza virus vaccine, unspecified formulation Sugey Lue [facility] 04-27-2020 Fluad Quadrivalent 0 .5 ML Intramuscular Prefilled Syringe Elvira R Bunting Work Phone: [facility] 250 DO Work Phone: 04-27-2020 influenza virus vaccine, unspecified formulation Sugey Chandler [facility] 04-27-2020 pneumococcal conjuga te vaccine, 13 valent Elvira R Bunmaggie Work Phone: [facility] 04-27-2020 zoster vaccine recombinant Elvira R Bunmaggie Work Phone: [facility] 03-15-2020 influenza virus vaccine, unspecified formulation Shea Brannon MD Work Phone: [facility] 03-15-2020 influenza, seasonal, injectable Shea Brannon MD Work Phone: [facility] Work Phone: 02-16-2019 influenza virus vaccine, unspecified formulation Sugey Chandler [facility] 02-16-2019 influenza, high dose seasonal, preservative-free Elvira R Bunmaggie Work Phone: [facility] 250 DO Work Phone: 06-15-2018 influenza virus vaccine, unspecified formulation Shea Brannon MD Work Phone: [facility] 06-15-2018 influenza, seasonal, injectable Shea Brannon MD Work Phone: [facility] Work Phone: 04-15-2018 influenza virus vaccine, unspecified formulation Shea Brannon MD Work Phone: [facility] 600 DO Work Phone: 02-22-2018 influenza virus vaccine, unspecified formulation Sugey Lue [facility] 02-22-2018 influenza, high dose seasonal, preservative-free Elvira R Bunting Work Phone: [facility] 250 DO Work Phone: 02-16-2017 influenza virus vaccine, unspecified formulation Shea Brannon MD Work Phone: [facility] 600 DO Work Phone: 02-11-2017 influenza virus vaccine, unspecified formulation Sugey Lue [facility] 02-11-2017 influenza, injectabl e, quadrivalent, preservative free Shea Brannon MD Work Phone: [facility] Work Phone: 04-23-2016 influenza virus vaccine, unspecified formulation Sugey Lue [facility] 04-23-2016 influenza, injectabl e, quadrivalent, preservative free Elvira R Bunting Work Phone: [facility] 250 DO Work Phone: 04-12-2015 influenza virus vaccine, unspecified formulation Sguey Lue [facility] 04-12-2015 influenza, injectabl e, quadrivalent, preservative free Elvira R Bunting Work Phone: [facility] 250 DO Work Phone: 10-26-2012 hepatitis A and hepatitis B vaccine Nely Ibarra TRUSS ASSEMBLER.AGRICULTURE EXTENSION SPECIALIST Work Phone: [facility] 10-26-2012 pneumococcal polysaccharide vaccine, 23 valent Nely Ibarra TRUSS ASSEMBLER.AGRICULTURE EXTENSION SPECIALIST Work Phone: [facility] 10-26-2012 hepatitis B vaccine, unspecified formulation Nely Ibarra APRN.AGRICULTURE EXTENSION SPECIALIST Work Phone: [facility] Payers Date Payer Category Payer Self-pay [id number] 2021 Medicare ANTHEM MEDICARE ANTHEM MEDICARE ADVANTAGE [id number] 2021-Present [address] [place] [address] [id number] 2021 Medicare (Managed Care) 1.2. [id number] 2021 Unknown ANTHEM BLUE CROS S AND BLUE SHIELD ANTHEM MEDIBLUE ACCESS [id number] 2021-Present [phone] [address] [place] [address] PPO [id number] 2021 Unknown [id number] 2019 Unknown 1959 Medicare [id number] 1952 Unknown [id number] 2.16.840.1.181011.3.579.2 .593 1952 Unknown [id number] 2.16.840.1.789328.3.579.2 .593 1952 Unknown [id number] 2.16.840.1.160186.3.579.2 .593 1952 Unknown [id number] 2.16.840.1.939656.3.579.2 .593 1952 Unknown [id number] 2.16.840.1.446225.3.579.2 .593 1952 Unknown [id number] 2.16.840.1.849448.3.579.2 .593 1952 Unknown [id number] 2.16.840.1.533565.3.579.2 .593 1952 Unknown [id number] 2.16.840.1.483749.3.579.2 .593 1952 Unknown [id number] 2.16.840.1.051520.3.579.2 .593 1952 Unknown [id number] 2.16.840.1.168891.3.579.2 .593 1952 Unknown [id number] 2.16.840.1.502208.3.579.2 .593 1952 Unknown [id number] 2.16.840.1.240481.3.579.2 .593 1952 Unknown [id number] 2.16.840.1.659790.3.579.2 .593 1952 Unknown [id number] 2.16.840.1.598282.3.579.2 .593 1952 Unknown [id number] 2.16.840.1.724847.3.579.2 .593 1952 Unknown [id number] 2.16.840.1.190415.3.579.2 .593 1952 Unknown [id number] 2.16.840.1.084808.3.579.2 .593 1952 Unknown [id number] 2.16.840.1.000986.3.579.2 .356 1952 Unknown [id number] 2.16.840.1.648620.3.579.2 .356 1952 Unknown [id number] 2.16.840.1.047767.3.579.2 .356 1952 Unknown [id number] 2.16.840.1.052274.3.579.2 .356 1952 Unknown [id number] 2.16.840.1.021722.3.579.2 .356 1952 Unknown [id number] 2.16.840.1.217300.3.579.2 .727 1952 Unknown [id number] 2.16.840.1.379400.3.579.2 .727 1952 Unknown [id number] 2.16.840.1.255720.3.579.2 .727 1952 Unknown [id number] 2.16.840.1.383672.3.579.2 .727 1952 Unknown [id number] 2.16.840.1.298988.3.579.2 .727 1952 Unknown [id number] 2.16.840.1.181921.3.579.2 .727 1952 Unknown [id number] 1950 Unknown [id number] 1950 Unknown [id number] Medicare Medicare [id number] Unknown [id number] Unknown HCAP/HFA/FAP Active 1978 8 [id number] Unknown [id number] Unknown [id number] Unknown [id number] Unknown [id number] Social History Date Type Detail Facility Start: 12-24-2021 End: 04-10-2023 Tobacco smoking status NHIS Ex-smoker [facility] Start: 02-18-2017 Alcohol intake 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 alcohol (finding) [facility] Start: 1950 Sex Assigned At Not on file C [facility] Start: 08-13-2023 End: 02-17-2024 Tobacco smoking status Never [facility] Start: 12-11-2017 End: 04-15-2024 Sex Assigned At Male [facility] Start: 12-11-2017 End: 04-15-2024 Caffeine use Caffeine use -[facility] 600 DO Work Phone: Comment on above: 1.5 cups of coffee a nd a quart of Iced Tea daily; quit around ; 1.5 cups of coffee; Start: 1950 Sex Assigned At Male F [facility] End: 06-15-1982 History of tobacco use Current smoker [facility] Start: 11-29-2012 End: 04-10-2023 Tobacco use and exposure Smokeless tobacco non-user [facility] End: 06-15-1982 History of tobacco use Cigarette Smoker [facility] Work Phone: Start: 04-10-2023 End: 04-15-2024 Alcohol intake Lifetime non-drinker (finding) [facility] Work Phone: Start: 03-31-2023 End: 05-20-2024 Exposure to SARS-CoV-2 (event) Not sure [facility] Start: 03-31-2023 End: 04-11-2024 Alcoholic beverage [...] 02-17-2024 Functional Status N/A [facility] 08-13-2023 Functional Status N/A [facility] 05-27-2023 Functional Status N/A [facility] 02-25-2023 Functional Status N/A [facility] 10-08-2022 Functional Status N/A [facility] 09-15-2022 Functional Status N/A [facility] 09-10-2022 Functional Status N/A [facility] 02-26-2022 Functional Status N/A [facility] 12-24-2021 Functional Status N/A [facility] Clinical Notes 02-07-2015 to 04-18-2024 Telephone Encounter - Sonali So - 04/18/2024 8:06 AM ESTTelephone Encounter - Sonali So - 04/18/2024 8:06 AM Fabriec Brannon MD - 04/15/2024 8:30 AM EDTPatient Instructions Note Date & Type Note Facility 04-18-2024 Telephone encounter Note Camille is calling in from [facility] lab and need standing lab order fax over. The fax number is [phone] Sonali So [facility] 04-18-2024 Miscellaneous Notes Camille is calling in from [facility] lab and need standing lab order fax over. The fax number is [phone] Sonali So documented in this encounter [facility] 04-15-2024 History of Present illness Narrative [...] plan. documented in this encounter [facility] Work Phone: 04-15-2024 Instructions Ragini Contreras [...] routine documented in this encounter [facility] Work Phone: 04-11-2024 History of Present [...] limited to risks of scarring, darker or art gallery director pigmentary changes, recurrence, incomplete removal and infection. [...] Visit: 1 year documented in this encounter [facility] 02-17-2024 Hospital Discharge instructions Patient Education [...] urethra. Follow these instructions at home: Take rcqq-agi-tpjlyki and prescription medicines only as told by [...] provider. Document Revised: 12/18/2021 Document Reviewed: 12/18/2021 ZAOZAO Patient Education 2023 [employer]. Follow Up Care 05/27/2023 10:44:24 With:Chandler CHAVEZ, Sugey Cummins, URL, URO Address: [address] [place] [address]- [phone] When: Unknown Comments:6 mos (no labs) [facility] Juan Diego 02-17-2024 Note Patient Education Urology Benign Prostatic Hyperplasia [...] Follow these instructions at home: ? Take ulwv-uhy-fubmtyx and prescription medicines only as told by [...] develop side effec (more content not included)... [facility] 08-13-2023 Hospital Discharge instructions Patient Education [...] urethra. Follow these instructions at home: Take etkn-zgx-upkfiom and prescription medicines only as told by [...] provider. Document Revised: 12/18/2021 Document Reviewed: 12/18/2021 ZAOZAO Patient Education 2022 [employer]. Follow Up Care 08/11/2023 16:25:46 With:Chandler CHAVEZ, TAMEKA Mendoza, URO Address: When: Unknown [facility] 07-28-2023 Miscellaneous Notes PA denied, pharmacy was billing incorrectly. Medicare paid for OLT and tacrolimus should be billed under part B. Pharmacy billing incorrectly. Yulisa Lewis RN, BSN, [facility] Liver Historiographer Tacrolimus PA submitted via [employer] website. [place]: [id number] Awaiting coverage determination. Yulisa Lewis RN, BSN, [facility] Liver Historiographer documented in this encounter [facility] 05-27-2023 Hospital Discharge instructions Patient Education [...] urethra. Follow these instructions at home: Take iqjp-wen-omqyhsk and prescription medicines only as told by [...] provider. Document Revised: 12/18/2021 Document Reviewed: 12/18/2021 ZAOZAO Patient Education 2022 [employer]. Follow Up Care 02/25/2023 09:53:13 With:Chandler CHAVEZ, TAMEKA Mendoza, URO Address: When:Within 9 Month(s) Comments:w/PSA F&T [facility] 04-10-2023 History of Present illness Narrative Subjective Susan Kenny Sherman is a 73 y.o. 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 documented in this encounter [facility] Work Phone: 02-25-2023 Hospital Discharge instructions [...] treatment? Where to find more information [employer] [place] [employer]: www.cancer.org [place] [employer]: www.auanet.org Contact a health care [...] provider. Document Revised: 11/25/2021 Document Reviewed: 11/25/2021 ZAOZAO Patient Education 2022 [employer]idy. Follow Up Care 11/18/2022 14:45:41 With:Chandler CHAVEZ, TAMEKA Mendoza, URO Address: When:Within 3 Month(s) [facility] 02-23-2023 Miscellaneous Notes Spoke with patient who [...] patent and also faxed to local lab [phone]. Pt verbalized understanding, no further questions at this time. Yulisa Lewis RN, BSN, [facility] Liver Historiographer documented in this encounter [facility] 01-01-2023 Evaluation note Encounter Date Diagnosis Assessment Notes Dec, Change in bowel habits (ICD-10 - R19.4) Dec, Other dysphagia (ICD-10 - R13.19) [facility] Other 06-16-2023 Evaluation note* Encounter Date Diagnosis Assessment Notes Treatment Notes Treatment Clinical Notes Nov, Age-related osteoporosis without current pathological fracture (ICD-10 - M81.0) [facility] Other 04-26-2023 Hospital Discharge instructions Patient Education [...] including vitamins, herbs, eye drops, creams, and nuvq-hgr-zozajhy medicines. Any problems you or family members [...] provider tells you to take them. Taking opwu-vfq-fuajary medicines, vitamins, herbs, and supplements. Surgery safety [...] provider. Document Revised: 02/25/2022 Document Reviewed: 02/25/2022 ZAOZAO Patient Education 2022 [employer]iosidy. Follow Up Care 09/22/2022 08:19:53 With:Chandler CHAVEZ, Sugey Cummins, URKenny, URO Address: [address], [place] [address] [phone] When: Unknown [facility] 04-10-2023 Hospital Discharge instructions Patient Education 09/22/2022 [...] Up Care 09/10/2022 10:23:36 With:Sugey Arteaga Address: [address] [place] [address] [phone] Business (1) [address], [address] [address] [phone] Business (1) When: Unknown Comments:Office to schedule follow up in 2-4 wks to review MRI prostate and BPH procedures [facility]03-29-2023 Hospital Discharge instructions Patient Education 09/10/2022 10:13:37 [...] including vitamins, herbs, eye drops, creams, and laym-ggu-toqlxeh medicines. This also includes: ?Medicines to assist [...] 07/04/2005 Document Revised: 05/14/2018 Document Reviewed: 03/08/2018 ZAOZAO Patient Education 2020 [employer]ios[employer]. 09/10/2022 10:13:27 Benign Prostatic Hyperplasia Benign Prostatic [...] urethra. Follow these instructions at home: Take vggf-eon-ejygcyz and prescription medicines only as told by [...] 06/01/2006 Document Revised: 04/26/2019 Document Reviewed: 07/06/2017 ZAOZAO Patient Education 2020 [employer]. Follow Up Care 02/26/2022 15:32:46 With:Chandler CHAVEZ, Sugey Cummins URL, URO Address: When:Within 6 Month(s) Comments:w/PSA [facility] 09-14-2022 Hospital Discharge instructions Patient Education 02/26/2022 [...] have oneof these risk factors: ?Being of -[place] descent. ?Having a family history of prostate [...] you: Are older than age 55. Are -[place]ian. Have a father, brother, or uncle who [...] 03/12/2018 Document Revised: 05/14/2018 Document Reviewed: 03/12/2018 ZAOZAO Patient Education 2020 Ratify Follow Up Care 01/02/2022 11:31:28 With:YVONNE PEREZ, VINICIUS Lemons, URL Address: [address] [place] [address] When:6 months Comments:W/ PSA [facility] 07-12-2022 Hospital Discharge instructions Patient Education 12/24/2021 [...] including vitamins, herbs, eye drops, creams, and fjwz-qas-qzshmbe medicines. This also includes: ?Medicines to assist [...] 07/04/2005 Document Revised: 05/14/2018 Document Reviewed: 03/08/2018 ZAOZAO Patient Education [employer]. Follow Up Care 06/18/2021 08:41:53 With:Long More MD, MARIELLA Argueta Address: [facility] [address], [place] [address]- When: Unknown [facility] 05-05-2022 Miscellaneous Notes* Telephone Encounter - Yulisa Lewis RN - 10/17/2021 8:51 AM EDT FK reviewed, no changes. [facility] of Past illness Narrative* Problem [...] HE grade 4, serum ammonia 228 at [place] ED , admitted 3/ morning. - Per family, minor confusion since the last 6 months inspite of being on medications. - Intubated en route to [facility] for airway protection 07/17 AMS. - Diagnostic para, culture NGTD, negative for SBP by counts. - Back to baseline MS 08/17 -extubated PLAN: - Lactulose, zinc and rifaximin. - Follow cultures. DVT prophylaxis 08/14/2012 02/18/2017 Overview: Plan: - SQ heparin. - Pepcid for GI prophylaxis. Mechanically assisted ventilation 08/14/2012 02/18/2017 Overview: - Intubated on 08/14 en route from [facility] for airway protection. - Tolerating PSV. PLAN: [...] of this encounter (statuses as of 09/16/2021) [facility]08[facility] History of Past illness Narrative* Problem [...] HE grade 4, serum ammonia 228 at [place] [facility] , admitted 3/ morning. - Per [...] - Intubated on 08/14 en route from [facility] for airway protection. - Tolerating PSV. PLAN: [...] of this encounter (statuses as of 10/17/2021) [facility] History of Past illness Narrative* Problem [...] HE grade 4, serum ammonia 228 at [place] [facility] , admitted 3/ morning. - Per [...] ventilation 08/14/2012 02/18/2017 Overview: - Intubated on 32 en route from [facility] for airway protection. - Tolerating PSV. PLAN: [...] of this encounter (statuses as of 11/08/2021) [facility] History of Past illness Narrative* Problem [...] HE grade 4, serum ammonia 228 at [place] [facility] , admitted 3/ morning. - Per family, minor confusion since the last 6 months inspite of being on medications. - Intubated en route to [facility] for airway protection 07/17 AMS. - Diagnostic para, culture NGTD, negative for SBP by counts. - Back to baseline MS 08/17 -extubated PLAN: - Lactulose, zinc and rifaximin. - Follow cultures. DVT prophylaxis 08/14/2012 02/18/2017 Overview: Plan: - SQ heparin. - Pepcid for GI prophylaxis. Mechanically assisted ventilation 08/14/2012 02/18/2017 Overview: - Intubated on 08/14 en route from [facility] for airway protection. - Tolerating PSV. PLAN: [...] of this encounter (statuses as of 09/04/2022) [facility] History of Past illness Narrative* Problem [...] HE grade 4, serum ammonia 228 at [place] [facility] , admitted 3/1 morning. - Per [...] - Intubated on 08/14 en route from [facility] for airway protection. - Tolerating PSV. PLAN: [...] of this encounter (statuses as of 02/24/2023) [facility] History of Past illness Narrative* Problem [...] HE grade 4, serum ammonia 228 at [place] [facility] , admitted 3/ morning. - Per family, minor confusion since the last 6 months inspite of being on medications. - Intubated en route to [facility] for airway protection 07/17 AMS. - Diagnostic para, culture NGTD, negative for SBP by counts. - Back to baseline MS 08/17 -extubated PLAN: - Lactulose, zinc and rifaximin. - Follow cultures. DVT prophylaxis 08/14/2012 02/18/2017 Overview: Plan: - SQ heparin. - Pepcid for GI prophylaxis. Mechanically assisted ventilation 08/14/2012 02/18/2017 Overview: - Intubated on 08/14 en route from [facility] for airway protection. - Tolerating PSV. PLAN: [...] of this encounter (statuses as of 07/28/2023) [facility] History of Past illness Narrative* Problem [...] HE grade 4, serum ammonia 228 at [place] [facility] , admitted 3/ morning. - Per [...] - Intubated on 08/14 en route from [facility] for airway protection. - Tolerating PSV. PLAN: [...] available for this section [facility] evaluation + Plan note Future Appointments Appointment Date:08/26/2022 08:00:00 AM Scheduled Provider:Mike Alves Jr., MD Location:[facility] Appointment Type:URO Office Visit Diagnostic Tests Pending * PSA Total 02/26/22 [facility] evaluation + Plan note Future Appointments Appointment Date:09/11/2022 08:00:00 AM Scheduled Provider: Location:[facility] Appointment Type:Urology CALL PAT FT Appointment Date:09/15/2022 09:45:00 AM Scheduled Provider: Location:[facility] Appointment Type:Urology FT Diagnostic Tests Pending * PSA Total 09/10/22 [facility] evaluation + Plan note Future Appointments Appointment Date:10/08/2022 08:00:00 AM Scheduled Provider:Sugey Arteaga MD Location:[facility] Future Appointments Appointment Date:05/27/2023 09:45:00 AM Scheduled Provider:Sugey Arteaga MD Location:[facility] Appointment Type:URO Office Visit [facility] evaluation + Plan note Future Appointments Appointment Date:02/17/2024 09:45:00 AM Scheduled Provider:Sugey Arteaga MD Location:[facility] Appointment Type:URO Office Visit Diagnostic Tests Pending * PSA Free & Total 05/27/23 [facility] evaluation + Plan note Future Appointments Appointment Date:02/17/2024 09:45:00 AM Scheduled Provider:Sugey Arteaga MD Location:[facility] Appointment Type:URO Office Visit Future Scheduled Tests Laboratory* PSA Free & Total 12[facility]14/23 [facility] Plan note Future Appointments Appointment Date:08/17/2024 08:00:00 AM Scheduled Provider:Sugey Arteaga MD Location:[facility] Appointment Type:URO Office Visit Future Scheduled Tests Laboratory* PSA Free & Total 12/14/23 [facility] evaluation note* Diagnosis Liver replaced by transplant (HCC) [facility] by [facility] Need for prophylactic immunotherapy Transplanted liver (HCC) Liver replaced by transplant [facility] assessment information [facility] Work Phone: Evaluation note* Diagnosis Liver replaced by transplant (HCC) Liver replaced by transplant [facility] noteNo InformationNossm rehab [employer] Other Evaluation note* Diagnosis Sick sinus syndrome (CMS/HCC)- Primary Sinoatrial node dysfunction Essential hypertension Unspecified essential hypertension Mixed hyperlipidemia Overweight with body mass index (BMI) of 26 to 26.9 in adult Liver transplanted (CMS/HCC) Liver replaced by transplant Pacemaker Cardiac pacemaker in situ documented in this encounter [facility] Work Phone: Evaluation note* Diagnosis Liver replaced by transplant (HCC) Liver replaced by transplant [facility]* Diagnosis Need for prophylactic immunotherapy Transplanted liver (HCC) Liver replaced by transplant [facility]* Diagnosis Melanocytic nevus of trunk Benign neoplasm of skin of trunk, except scrotum Seborrheic keratosis Actinic keratosis [facility] Shortness of breath- Primary Sick sinus syndrome (Multi) Sinoatrial node dysfunction Essential hypertension Unspecified essential hypertension Mixed hyperlipidemia Pacemaker Cardiac pacemaker in situ BMI 20.0-20.9, adult Liver transplanted (Multi) Liver replaced by transplant Former smoker Personal history of tobacco use, presenting hazards to health documented in this encounter [facility] Work Phone: Evaluation note* Diagnosis Shortness of breath documented in this encounter [facility] Work Phone: History general Narrative - Reported* Type Description Date Medical History HISTORY OF HEP C Medical History LIVER TRANSPLANT Medical History prostatism Medical History liver cancer Surgical History APPENDECTOMY Surgical History HERNIA REPAIR Surgical History LIVER TRANSPLANT Surgical History VEIN STRIPPING 2005 Hospitalization History SEE ABOCE [facility] Other [place] general Narrative - Reported* Type Description Date Medical History HISTORY OF HEP C Medical History LIVER TRANSPLANT Medical History prostatism Medical History liver cancer Medical History PACE MAKER PLACED Surgical History APPENDECTOMY Surgical History HERNIA REPAIR Surgical History LIVER TRANSPLANT Surgical History VEIN STRIPPING 2005 Surgical History PACE MAKER PLACEMENT Hospitalization History SEE ABOVE [facility] Other History of Present illness Narrative* Patient [...] Modification * 5. Follow-up in 1 year [facility] [address] DO Work Phone: Hospital Discharge instructions No data available for this section [facility] Progress note No data available for this section [facility] reason for referral (narrative)* Consultation (Routine) - Authorized Specialty Diagnoses / Procedures Referred By Contjanet t Referred To Contact Cardiology Diagnoses Sick sinus syndrome (CMS/HCC) Essential hypertension Mixed hyperlipidemia Procedures Follow Up In Cardiology Shea Brannon MD [address] [facility] [address], [address] [address] Shea Brannon MD [address] [place] [address], [address] [address] Referral ID Status Reason Start Date Expiration Date V isits Requested Visits Authorized [id number] Authorized 04/10/2023 04/09/2024 1 1 [facility] Work Phone: Reason for visit Narrative* CV Imaging (Routine) - Authorized Specialty Diagnoses / Procedures Referred By Contac t Referred To Contact Cardiology Diagnoses Shortness of breath Procedures Transthoracic Echo Complete MI ECHO TTHRC R-T 2D W/WOM-MODE COMPL SPEC&COLR D Shea Brannon MD [address] [place] [address], [address] [address] Phone: tel: fax: Referral ID Status Reason Start Date Expiration Date Visits Requested Visits Authorized [id number] Authorized Perform Procedure 04/15/2024 04/15/2025 1 1 [facility] Work Phone: Summary Purpose Family History Unknown [...] section and content) DATE CREATED AUTHOR 12/08/2017 [facility] DATE CREATED AUTHOR AUTHOR'S ORGANIZ ATION 04/16/2020 [facility] DATE CREATED AUTHOR AUTHOR'S ORGANIZ ATION 10/24/2022 [facility] [place] [facility] DATE CREATED AUTHOR AUTHOR'S ORGANIZ ATION 11/23/2022 [facility] ical Center DATE CREATED AUTHOR AUTHOR'S ORGANIZ ATION 02/19/[address] [place] DATE CREATED AUTHOR AUTHOR'S ORGANIZ ATION 02/24/2024 [facility] DATE CREATED AUTHOR AUTHOR'S ORGANIZ ATION 04/11/2024 [facility] dical [facility] EPIC DATE CREATED AUTHOR AUTHOR'S ORGANIZ ATION 04/17/2024 [facility] DATE CREATED AUTHOR AUTHOR'S ORGANIZ ATION 04/21/2024 [facility] DATE CREATED AUTHOR AUTHOR'S ORGANIZ ATION 05/16/2024 [facility] DATE CREATED AUTHOR AUTHOR'S ORGANIZ ATION 05/25/2024 [facility] Source Comments (unrecognize d section and content) In the event this informatio n is protected by the Federal Confidentiality of Alcohol and Drug Abuse Patient Records regulations: The Federal rules restrict any use of the information to criminally investigate or prosecute any alcohol or drug abuse patient.[facility] the event this information is protected by the Federal Confidentiality of Alcohol and Drug Abuse Patient Records regulations: The Federal rules restrict any use of the information to criminally investigate or prosecute any alcohol or drug abuse patient.[facility] the event this information is protected by the Federal Confidentiality of Alcohol and Drug Abuse Patient Records regulations: The Federal rules restrict any use of the information to criminally investigate or prosecute any alcohol or drug abuse patient.[facility] the event this information is protected by the Federal Confidentiality of Alcohol and Drug Abuse Patient Records regulations: The Federal rules restrict any use of the information to criminally investigate or prosecute any alcohol or drug abuse patient.[facility] the event this information is protected by the Federal Confidentiality of Alcohol and Drug Abuse Patient Records regulations: The Federal rules restrict any use of the information to criminally investigate or prosecute any alcohol or drug abuse patient.[facility] the event this information is protected by the Federal Confidentiality of Alcohol and Drug Abuse Patient Records regulations: The Federal rules restrict any use of the information to criminally investigate or prosecute any alcohol or drug abuse patient.[facility] the event this information is protected by the Federal Confidentiality of Alcohol and Drug Abuse Patient Records regulations: The Federal rules restrict any use of the information to criminally investigate or prosecute any alcohol or drug abuse patient.[facility] the event this information is protected by the Federal Confidentiality of Alcohol and Drug Abuse Patient Records regulations: The Federal rules restrict any use of the information to criminally investigate or prosecute any alcohol or drug abuse patient.[facility] the event this information is protected by the Federal Confidentiality of Alcohol and Drug Abuse Patient Records regulations: The Federal rules restrict any use of the information to criminally investigate or prosecute any alcohol or drug abuse patient.[facility] the event this information is protected by the Federal Confidentiality of Alcohol and Drug Abuse Patient Records regulations: The Federal rules restrict any use of the information to criminally investigate or prosecute any alcohol or drug abuse patient.[facility] Reason for Visit (unrecogniz ed section and content) Reason Comments Refill Request Reason Comments Opened In Error Reason Comments Patient Update Orders New standing lab ord er Reason Comments Follow-up 1y Reason Comments Insurance Authorization Tacrolimus Reason Comments Skin Check Reason Comments Annual Exam Specialty Diagnoses / Procedures Referred By Contjanet t Referred To Contact Cardiology Diagnoses Sick sinus syndrome (Multi) Essential hypertension Mixed hyperlipidemia Procedures Follow Up In Cardiology Shea Brannon MD [address] [place] [address] 2, [address] [address] Phone: tel: fax: Shea Brannon MD [address] [place] [address] 2, [address] [address] Phone: tel: fax: Referral ID Status Reason Start Date Expiration Date V isits Requested Visits Authorized [id number] Authorized 04/10/2023 04/09/2024 1 1 Care Teams (unrecognized sec tion and content) Team Status: Active Member Role Status Dates Elvira Schultz DO Primary Care Provider Active Team Status: Inactive Member Role Status Dates Elvira Schultz , Primary Care Provider Active Sugey Arteaga MD Attending Provider Active Brazer Electronic Relationship Specialty Start Date End Date Elvira Schultz, DO [address] [place] [address] PCP - General Family Practice 01/06/12 Yulisa Lewis RN [facility] [address] [place] [address] Registered Nurse Transplant Center 07/14/19 Brazer Electronic Relationship Specialty Start Date End Date Elvira Schultz, DO [address] [place] [address] PCP - General Family Practice 01/06/12 Yulisa Lewis RN [facility] [id number] [place] [address] Registered Nurse Transplant Center 07/14/19 Team Status: Inactive Member Role Status Dates Elvira Foxmaggie , Primary Care Provider Active Shea Brannon MD Attending Provider Active Brazer Electronic Relationship Specialty Start Date End Date BuntingElvira DO [address] [place] [address] PCP - General Family Medicine 01/06/12 Yulisa Lewis RN [address] [address] Registered Nurse Transplant Center 07/14/19 Team Status: Inactive Member Role Status Dates Elvira Schultz , Primary Care Provider Active Branden Woodward MD Attending Provider Active Team Status: Inactive Member Role Status Dates Elvira Ruddymaggie , Primary Care Provider Active Sheila Magallanes MD Attending Provider Active Brazer Electronic Relationship Specialty Start Date End Date Bunting, Elvira Ray, DO [address] [place] [address] PCP - General [facility] 01/06/12 Yulisa Lewis RN [address] [address] Registered Nurse Transplant Center 07/14/19 Brazer Electronic Relationship Specialty Start Date End Date Bunting, Elvira Ray, DO [address] [facility][1] [place] [address] PCP - General 06/15/99 Brazer Electronic Relationship Specialty Start Date End Date Bunting, Elvira Ray, DO [address] [facility] [address] PCP - General Family Medicine 01/06/12 Yulisa Lewis RN [address] [address] Registered Nurse Transplant Center 07/14/19 Brazer Electronic Relationship Specialty Start Date End Date Bunting, Elvira Ray, DO [address] [place] [address] PCP - General Family Medicine 01/06/12 Yulisa Lewis RN [facility] [address] [place] [address] Registered Nurse Transplant Center 07/14/19 Brazer Electronic Relationship Specialty Start Date End Date Elvira Schultz DO [address] [facility] [address] PCP - General Family Medicine 01/06/12 Yulisa Lewis RN [facility] [address] [place] [address] Registered Nurse Transplant Center 07/14/19 Team Status: Inactive Member Role Status Dates Elvira Schultz DO Primary Care Provider Active Start: November 06, 2023 End: November 06, 2023 Branden Woodward MD Attending Provider Active Start: November 06, 2023 End: November 06, 2023 Brazer Electronic Relationship Specialty Start Date End Date Elvira Schultz DO [address] [facility] [place] [address] PCP - General Family Medicine 01/06/12 Yulisa Lewis RN [facility] [address] [place] [address] Registered Nurse Transplant Center 07/14/19 Team Status: Inactive Member Role Status Dates Elvira Schultz DO Primary Care Provider Active Start: February 05, 2024 End: February 05, 2024 Branden Woodward MD Attending Provider Active Start: February 05, 2024 End: February 05, 2024 Brazer Electronic Relationship Specialty Start Date End Date Elvira Schultz DO [address] [place] [address] PCP - General 06/15/99 Brazer Electronic Relationship Specialty Start Date End Date Elvira Schultz DO [address] [place] Lizzeth [place] [address] PCP - General 06/15/99 Goals (unrecognized section [...] BE BASED ON THE PRIMARY CLINICAL RECORDS. [employer] provides no warranty or guarantee of the accuracy or completeness of information in this document.
[2024-06-03] MEDS: HYDROMORPHONE HCL 0.5 MG/0.5 ML SYRINGE IV (07:52)
[2024-06-03] MEDS: FAMOTIDINE/PF 20 MG/2 ML VIAL IV (07:53)
[2024-06-03] MEDS: DICYCLOMINE HCL 20 MG/2 ML VIAL IM (07:53)
[2024-06-03] MEDS: METOPROLOL TARTRATE 5 MG/5 ML VIAL IVP (09:03)
--- NOTE | 2024-06-03 09:47 | XR_ITS ---
The [address] [address] Patient Name: SUSAN VAZQUEZ MRN: [id number] date: 1950 Sex: M Assigned Patient Location: ER Current Patient Location: Accession/Order Number: [id number] Exam Date: 06/03/2024 10:02 Report Date: 06/03/2024 10:43 At the request of: ALONSO JADE Procedure: XR abdomen min 2V EXAMINATION: XR abdomen min 2V HISTORY: flat and erect COMPARISON: CT same day FINDINGS: BOWEL GAS PATTERN: Moderate distention of small bowel loops measuring up to 4.3 cm in the central abdomen. Air identified in the right colon there is a paucity of air in the left colon. No air in the rectum CALCIFICATIONS: None significant. OTHER: Contrast opacification of the urinary bladder. Enteric tube extends to the left upper quadrant XR/XR abdomen min 2V IMPRESSION: Moderate distention of small bowel loops, consider ileus versus partial small bowel obstruction. Electronically authenticated by: SUSAN POPE Date: 06/03/2024 10:43
[2024-06-03 09:50] LABS: Basophils Absolute Auto 0.1 10^3/uL (0.0-0.1); Basophils Percent Auto 0.5 % (0.2-2.0); Eosinophils Absolute Auto 0.1 10^3/uL (0.0-0.7); Eosinophils Percent Auto 0.7 % (0.9-7.0); Hematocrit 43.5 % (42.0-54.0); Hemoglobin 14.9 g/dL (14.0-18.0); Immature Granulocytes Abs Auto 0.02 10^3/uL (0.00-0.03); Immature Granulocytes Pct Auto 0.2 % (0.0-0.5); Lymphocytes Absolute Auto 0.4 10^3/uL (1.2-3.8); Mean Corpuscular HGB Conc 34.3 g/dL (29.9-35.2); Mean Corpuscular Hemoglobin 31.2 pg (25.9-34.0); Mean Platelet Volume 9.2 fL (9.5-13.5); Monocytes Absolute Auto 0.5 10^3/uL (0.3-0.8); Monocytes Percent Auto 4.8 % (1.7-12.0); Neutrophils Absolute Auto 8.6 10^3/uL (1.4-6.5); Neutrophils Percent Auto 89.8 % (43.0-75.0); Platelet Count 192 10^3/uL (150-450); Red Blood Count 4.78 10^6/uL (4.70-6.10); Red Cell Distribution Width 13.5 % (11.0-15.0); White Blood Count 9.6 10^3/uL (4.0-11.0)
[2024-06-03 10:23] LABS: Alanine Aminotransferase 14 U/L (16-63); Albumin Globulin Ratio 1.7; Albumin Level 3.6 g/dL (3.4-5.0); Alkaline Phosphatase 58 U/L (46-116); Anion Gap 16.5; Aspartate Amino Transferase 13 U/L (15-37); BUN Creatinine Ratio 22.2; Bilirubin Total 0.9 mg/dL (0.2-1.0); Calcium 8.6 mg/dL (8.5-10.1); Carbon Dioxide 23.1 mmol/L (21.0-32.0); Chloride 106 mmol/L (98-107); Estimated GFR (African America >60 (>=60 mL/min/1.73m^2); Estimated GFR (Non-African Ame >60 (>=60 mL/min/1.73m^2); Globulin 2.1 g/dL; Glucose 116 mg/dL (74-106); Potassium 4.6 mmol/L (3.5-5.1); Sodium 141 mmol/L (136-145); Total Protein 5.7 g/dL (6.4-8.2)
[2024-06-03 10:25] LABS: Lactate/Lactic Acid 0.6 mmol/L (0.4-2.0)
== END 2024-06-03 11:30 | disposition short-term general hospital (02) ==
LOC: ER 05:47
PROVIDERS: Emergency Medicine; Emergency Provider Emergency Medicine; PCP Family Medicine
DX: K56.609 Unspecified intestinal obstruction, unspecified as to partial versus complete obstruction (principal); Z90.49 Acquired absence of other specified parts of digestive tract; Z94.4 Liver transplant status; R00.0 Tachycardia, unspecified; I10 Essential (primary) hypertension; R16.1 Splenomegaly, not elsewhere classified; K57.30 Diverticulosis of large intestine without perforation or abscess without bleeding
CPT/HCPCS: 36415; 74019; 74177; 80048; 80053; 80076; 81001; 82150; 83605; 83690; 85025; 93005; 96372; 96374; 96375; 96376; 99285; J0500; J1171; J2270; J2405; Q9967

== ENCOUNTER 2024-08-04 13:00 | Inpatient (IN) | payer MEDICARE, SELFPAY ==
[2024-08-04] VITALS (22 sets, daily range): BP systolic 109–146; BP diastolic 66–75; PULSE 79–117; TEMP 36.6–36.8; O2SAT 92–97; BMI 17.9
--- NOTE | 2024-08-04 13:18 | ECG_ITS ---
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
--- NOTE | 2024-08-04 13:19 | ED_ITS ---
HPI HPI - General Adult General Chief complaint: Urogenital-Male Stated complaint: POSSIBLE UTI Time Seen by Provider: 08/04/24 13:08 Source: patient Mode of arrival: walk-in History of Present Illness HPI narrative: Patient is a 74-year-old male brought to the emergency department by his sons for evaluation of confusion, weakness and possible UTI. Patient was seen in this emergency department 2 months ago and diagnosed with a bowel obstruction secondary to abdominal adhesions. He was transferred to the [facility] where he underwent surgery for the small bowel obstruction. He recovered for about 1 month at the [facility]. He has been home living with the son for about 2 weeks, son states for the first few days the patient was doing well but he has become more weak, confused, hallucinating. He had a Mejia catheter in place at the time of his surgery and recovery, the Mejia catheter was removed 2 weeks ago. He did complete antibiotics for UTI while hospitalized. He has not had any fevers, patient denies any pain complaints. He does report a sensation of urinary urgency. Sons state privately that the patient has been difficult to care for and they are hoping to get him back to the [facility]. Related Data Home Medications ?Medication ?Instructions ?Recorded ?Confirmed aspirin 81 mg capsule 81 mg PO DAILY 04/22/24 06/03/24 finasteride 5 mg tablet 5 mg PO DAILY 04/22/24 06/03/24 metoprolol tartrate 25 mg tablet 25 mg PO Q12H 04/22/24 06/03/24 oxybutynin chloride 5 mg tablet mg 04/22/24 sulfamethoxazole 800 tab 04/22/24 mg-trimethoprim 160 mg tablet tacrolimus 1 mg capsule, mg 04/22/24 immediate-release terazosin 5 mg capsule 5 mg PO Q12H 04/22/24 06/03/24 Allergies Allergy/AdvReac Type Severity Reaction Status Date / Time No Known Drug Allergies Allergy Verified 06/03/24 00:08 Opioid HPI Opioid Management Most Recent Opioid Data: Last Pain Scale 8 06/03/24 07:52 06/03/24 Review of Systems ROS Constitutional Denies: fever or chills Ears, nose, mouth, and throat Denies: throat pain or nasal congestion Cardiovascular Denies: chest pain Respiratory Denies: shortness of breath or cough Gastrointestinal Denies: abdominal pain, nausea or vomiting Genitourinary Reports: painful urination and urinary urgency Musculoskeletal Denies: back pain Integumentary/Breast Denies: rash Neurological Denies: numbness in extremities or weakness in extremities Hematologic/Lymphatic Denies: easy bruising or easy bleeding PFSH [facility] Social History Little interest or pleasure in doing things: not at all Feeling down, depressed, or hopeless: not at all Exam Narrative Exam Narrative: Gen.: Awake, alert, in no distress Head: Normocephalic, atraumatic ENT: Moist mucous membranes Respiratory: No respiratory distress, lungs clear bilaterally Cardio: Regular rate and rhythm Gastrointestinal: Abdomen is soft, nondistended and nontender to palpation; well-healed surgical incision over the anterior abdomen Extremities: Moves extremities equally Psych: Normal mood and affect Neuro: No focal neuro deficit Skin: Warm, dry, intact Constitutional Vital Signs, click to edit/add: Last Vital Signs Temp 98.0 F 08/04/24 13:04 Pulse 88 08/04/24 13:04 Resp 18 08/04/24 13:04 BP 109/66 08/04/24 13:04 Pulse Ox 95 08/04/24 13:04 O2 Del Method Room Air 08/04/24 13:04 Course Vital Signs Vital signs: Vital Signs Temperature 98.0 F 08/04/24 13:04 Pulse Rate 88 08/04/24 13:04 Respiratory Rate 18 08/04/24 13:04 Blood Pressure 109/66 08/04/24 13:04 Pulse Oximetry 95 08/04/24 13:04 Oxygen Delivery Method Room Air 08/04/24 13:04 Temperature 98.0 F 08/04/24 13:04 Pulse Rate 88 08/04/24 13:04 Respiratory Rate 18 08/04/24 13:04 Blood Pressure 109/66 08/04/24 13:04 Pulse Oximetry 95 08/04/24 13:04 Oxygen Delivery Method Room Air 08/04/24 13:04 Medical Decision Making [facility] Narrative Medical decision making narrative: Patient treated with IV fluids, IV magnesium for low magnesium level, lactic acid is normal. Mild leukocytosis noted with no other evidence of sepsis. Patient is found to have a nitrite positive UTI. CT of the brain and chest x- ray are unremarkable, reviewed by the radiologist. Patient is confused but easily directable on reevaluation. Discussed with the patient's sons at bedside we will admit for UTI confusion with intention to be evaluated for possible placement. Stable at time of admission. SUPERVISED APC VISIT, PHYSICIAN ATTESTATION: Based on the medical record the care appears appropriate. ? Medical Records Medical records reviewed: Yes I reviewed the patient's medical records Lab Data Lab results reviewed: Yes I reviewed the patient's lab results Labs: Lab Results 08/04/24 08/04/24 Range/Units 13:34 14:44 WBC 15.2 H (4.0-11.0) 10^3/uL RBC 4.38 L (4.70-6.10) 10^6/uL Hgb 13.4 L (14.0-18.0) g/dL Hct 42.0 (42.0-54.0) % MCV 95.9 H (80.0-94.0) fL MCH 30.6 (25.9-34.0) pg MCHC 31.9 (29.9-35.2) g/dL RDW 16.2 H (11.0-15.0) % Plt Count 268 (150-450) 10^3/uL MPV 9.6 (9.5-13.5) fL Neut % (Auto) 87.4 H (43.0-75.0) % Lymph % (Auto) 5.9 L (20.5-60.0) % [place] % (Auto) 4.9 (1.7-12.0) % Eos % (Auto) 0.9 (0.9-7.0) % Baso % (Auto) 0.7 (0.2-2.0) % Neut # (Auto) 13.3 H (1.4-6.5) 10^3/uL Lymph # (Auto) 0.9 L (1.2-3.8) 10^3/uL [place] # (Auto) 0.8 (0.3-0.8) 10^3/uL Eos # (Auto) 0.1 (0.0-0.7) 10^3/uL Baso # (Auto) 0.1 (0.0-0.1) 10^3/uL Abs Immat Gran (auto) 0.03 (0.00-0.03) 10^3/uL Imm/Tot Granulo (auto) 0.2 (0.0-0.5) % PT 12.0 H (9.0-11.6) sec INR 1.15 Sodium 144 (136-145) mmol/L Potassium 4.4 (3.5-5.1) mmol/L Chloride 105 (98-107) mmol/L Carbon Dioxide 31.4 (21.0-32.0) mmol/L Anion Gap 12.0 BUN 34.0 H (7.0-18.0) mg/dL Creatinine 1.00 (0.70-1.30) mg/dL Est GFR ( Amer) >60 (>=60 mL/min/1.73m^2) Est GFR (Non-Af Amer) >60 (>=60 mL/min/1.73m^2) BUN/Creatinine Ratio 34.0 Glucose 97 (74-106) mg/dL Lactate 1.1 (0.4-2.0) mmol/L Calcium 9.8 (8.5-10.1) mg/dL Magnesium 1.5 L (1.8-2.4) mg/dL Total Bilirubin 0.6 (0.2-1.0) mg/dL AST 17 (15-37) U/L ALT 18 (16-63) U/L Alkaline Phosphatase 88 (46-116) U/L Troponin I High Sens 6.4 (4.0-76.1) pg/mL Total Protein 6.7 (6.4-8.2) g/dL Albumin 3.8 (3.4-5.0) g/dL Globulin 2.9 g/dL Albumin/Globulin Ratio 1.3 TSH 6.024 H (0.358-3.740) uIU/mL Free T4 1.22 (0.76-1.46) ng/dL Free T3 1.77 L (2.18-3.98) pg/mL Urine Color Lt. yellow (YELLOW) Urine Clarity Clear (CLEAR) Urine pH 6.0 (5.0-9.0) Ur Specific [place] 1.020 (1.005-1.025) Urine Protein Trace (NEG/TRACE) mg/dL Urine Glucose (UA) Negative (NEGATIVE) mg/dL Urine Ketones Negative (NEGATIVE) mg/dL Urine Occult Blood Negative (NEGATIVE) Urine Nitrite Positive A (NEGATIVE) Urine Bilirubin Negative (NEGATIVE) Urine Urobilinogen 0.2 (0.2-1.0) EU/dL Ur Leukocyte Esterase Small A (NEGATIVE) Urine RBC 2-5 A (0-2) #/HPF Urine WBC 20-50 A (NONE SEEN) #/HPF Ur Squamous Epith Cells Rare (NONE/RARE) #/LPF Urine Crystals None seen (None Seen) #/HPF Urine Bacteria Large A (NONE SEEN) #/HPF Urine Casts None seen (NONE SEEN) #/LPF Urine Mucus None seen (NONE SEEN) Ur Culture Indicated? [place] [place] scan - head: Radiologist's impression: CT of the brain: No acute intracranial abnormality Chest x-ray: No acute process ECG Data Attestation: I personally reviewed and interpreted this ECG as follows: (Normal sinus rhythm at a rate of 86 with occasional PVC, no acute ST elevation, EKG reviewed by attending physician) Discharge Plan Discharge Chief Complaint: Urogenital-Male Patient Disposition: Admitted as Observation Time of Disposition Decision: 15:13 Prescriptions / Home Meds: No Action terazosin 5 mg capsule 5 mg PO Q12H oxybutynin chloride 5 mg tablet tacrolimus 1 mg capsule finasteride 5 mg tablet 5 mg PO DAILY metoprolol tartrate 25 mg tablet 25 mg PO Q12H sulfamethoxazole-trimethoprim 800-160 mg tablet aspirin 81 mg capsule 81 mg PO DAILY Print Language: Italian Referrals: ELVIRA SCHULTZ [Primary Care Provider] - 1 week
[2024-08-04 13:42] LABS: Basophils Absolute Auto 0.1 10^3/uL (0.0-0.1); Basophils Percent Auto 0.7 % (0.2-2.0); Eosinophils Absolute Auto 0.1 10^3/uL (0.0-0.7); Eosinophils Percent Auto 0.9 % (0.9-7.0); Hemoglobin 13.4 g/dL (14.0-18.0); Immature Granulocytes Abs Auto 0.03 10^3/uL (0.00-0.03); Immature Granulocytes Pct Auto 0.2 % (0.0-0.5); Lymphocytes Absolute Auto 0.9 10^3/uL (1.2-3.8); Lymphocytes Percent Auto 5.9 % (20.5-60.0); Mean Corpuscular HGB Conc 31.9 g/dL (29.9-35.2); Mean Corpuscular Hemoglobin 30.6 pg (25.9-34.0); Mean Corpuscular Volume 95.9 fL (80.0-94.0); Mean Platelet Volume 9.6 fL (9.5-13.5); Monocytes Absolute Auto 0.8 10^3/uL (0.3-0.8); Monocytes Percent Auto 4.9 % (1.7-12.0); Neutrophils Absolute Auto 13.3 10^3/uL (1.4-6.5); Neutrophils Percent Auto 87.4 % (43.0-75.0); Platelet Count 268 10^3/uL (150-450); Red Blood Count 4.38 10^6/uL (4.70-6.10); Red Cell Distribution Width 16.2 % (11.0-15.0); White Blood Count 15.2 10^3/uL (4.0-11.0)
[2024-08-04 13:57] LABS: INR 1.15
[2024-08-04] MEDS: 0.9 % SODIUM CHLORIDE 1,000 ML 1000 ML IV (13:58)
[2024-08-04 14:12] LABS: Lactate/Lactic Acid 1.1 mmol/L (0.4-2.0)
[2024-08-04 14:21] LABS: Alanine Aminotransferase 18 U/L (16-63); Albumin Globulin Ratio 1.3; Albumin Level 3.8 g/dL (3.4-5.0); Alkaline Phosphatase 88 U/L (46-116); Aspartate Amino Transferase 17 U/L (15-37); Bilirubin Total 0.6 mg/dL (0.2-1.0); Calcium 9.8 mg/dL (8.5-10.1); Carbon Dioxide 31.4 mmol/L (21.0-32.0); Chloride 105 mmol/L (98-107); Estimated GFR (African America >60 (>=60 mL/min/1.73m^2); Estimated GFR (Non-African Ame >60 (>=60 mL/min/1.73m^2); Globulin 2.9 g/dL; Glucose 97 mg/dL (74-106); Magnesium 1.5 mg/dL (1.8-2.4); Potassium 4.4 mmol/L (3.5-5.1); Sodium 144 mmol/L (136-145); Thyroid Stimulating Hormone 6.024 uIU/mL (0.358-3.740); Total Protein 6.7 g/dL (6.4-8.2); Troponin I High Sensitivity 6.4 pg/mL (4.0-76.1)
[2024-08-04] MEDS: MAGNESIUM SULFATE IN WATER 2 GM/50 ML PREMIX IV (14:31)
[2024-08-04 14:52] LABS: Bilirubin Urine NEGATIVE (NEGATIVE); Blood Urine NEGATIVE (NEGATIVE); Clarity Urine CLEAR (CLEAR); Color Urine LT. YELLOW (YELLOW); Glucose Urine UA NEGATIVE (NEGATIVE); Ketones Urine NEGATIVE (NEGATIVE); Leukocyte Esterase Urine SMALL (NEGATIVE); Nitrite Urine POSITIVE (NEGATIVE); Protein Urine TRACE mg/dL (NEG/TRACE); Urobilinogen Urine 0.2 EU/dL (0.2-1.0)
[2024-08-04 14:59] LABS: Bacteria Urine LARGE #/HPF (NONE SEEN); Cast Seen? NONE SEEN #/LPF (NONE SEEN); Crystals Seen? None Seen #/HPF (None Seen); Mucus Urine NONE SEEN (NONE SEEN); Squamous Epithelial Cell Urine RARE #/LPF (NONE/RARE); WBC Urine 20-50 #/HPF (NONE SEEN)
[2024-08-04 15:00] LABS: Urine Culture Indicated YES-FRMC
[2024-08-04 15:04] LABS: Free T3 1.77 pg/mL (2.18-3.98)
[2024-08-04 15:06] LABS: Free T4 1.22 ng/dL (0.76-1.46)
[2024-08-04] MEDS: CEFTRIAXONE 2,000 MG in 0.9 % SODIUM CHLORIDE 100 ML 200 MG IV (16:04)
--- OUTSIDE RECORDS SUMMARY | 2024-08-04 17:15 | XMS_ITS | CCD ---
Author Organization [facility] Inform ion Partnership [facility] Care Team Providers Care Program Coordinator For Residence Life Name Role Phone SHEA BRANNON Unavailable Unavailable BUNTING, ELVIRA R Unavailable Unavailable Unavailable Unavailable Bunting Elvira VASQUEZ Primary Care Provider Karla Turner RN Unavailable Unavailable BUNTING, ELVIRA R Primary Care Physician [phone] Bunting, Elvira R Unavailable Bunting, DO Felix Primary Care Provider [phone] MD Shea Brannon Attending Provider Bunting Elvira VASQUEZ Ray Primary Care Provider Karla Turner RN Unavailable Unavailable Bunting, DO Elvira Primary Care Provider [phone] MD Sugey Arteaga Attending Provider MISC, DOCTOR [...] Attending Provider MD Sheila Magallanes Attending Provider [phone] Sheila Magallanes Unavailable Bunting, Dr. Elvira Maurer Primary Care Unavaila ble Bunting, Dr. Elvira Maurer Primary Care Unavaila ble Bunting, Dr. Elvira Ray Primary Care Unavaila ble Traboulssi, Dr. Marvin Referring Unavaila ble Traboulssi, Dr. Marvin Attending Unavaila ble Bunting, Dr. Elvira Maurer Primary Care Unavaila ble Bunting, Dr. Felix Ray Primary Care Unavaila ble Bunting, DO Elvira Primary Care Provider MD Sugey Arteaga Attending Provider Bunting DO, Elvira Ray Primary Care Provider [phone] Bunting, DO Elvira Primary Care Provider [phone] MD Branden Woodward Attending Provider Bunting DO, Elvira Ray Primary Care Provider Bunting, DO Elvira Primary Care Provider MD Branden Woodward Attending Provider Bunting, DO Elvira Primary Care Provider MD Branden Woodward Attending Provider Unavailable Primary Care Provider Unavailabl e JASWINDER HINOJOSA Attending Unavailable SHEA BRANNON Attending Unavailable SHEA BRANNON Referring Unavailable BUNTING, ELVIRA RAY Primary Care Unavailable SHEA BRANNON Referring Unavailable BUNTING, ELVIRA RAY Primary Care Unavailable Branden Woodward Admitting Unavail able Branden Woodward Attending Unavail able Bunting, Elvira Primary Care Unavailable Branden Woodward Attending Unavail able Bunting, Elvira Primary Care Unavailable Branden Woodward Admitting Unavail able McGuinnBranden Attending Unavail able Bunting, Elvira Primary Care Unavailable Branden Woodward Admitting Unavail able McGuinnBranden Attending Unavail able McGuinnBranden Admitting Unavail able Bunting, Elvira Primary Care Unavailable VINICIUS RUSSELL Attending Unavailable VINICIUS RUSSELL Attending Unavailable Sugey Arteaga Attending Unavailable Sugey Arteaga Admitting Unavailable Sugey Arteaga Attending Unavailable Sugey Arteaga Attending Unavailable Sugey Arteaga Attending Unavailable Sugey Arteaga MShaylee Admitting Unavailable Sugey Arteaga Attending Unavailable JOSE PARKER Referring Unavailable BUNTING, ELVIRA RAY Primary Care Unavailable CARLINE PEREZ Attending Unavailable ENRIQUETA FOWLER Referring Unavailable BUNTING, ELVIRA RAY Primary Care Unavailable ALONSO LORENZO Referring Unavailable BUNTING, ELVIRA RAY Primary Care Unavailable SUSAN ZEPEDA Admitting Unavailable KUNAL FUNES Attending Unavailable LILA VILLASEÑOR Referring Unavailable BUNTING, ELVIRA RAY Primary Care Unavailable JOSE PARKER Attending Unavailable ENRIQUETA FOWLER Referring Unavailable BUNTING, ELVIRA RAY Primary Care Unavailable Allergies Allergy Classification Reported Allergen(s) Allergy Type Date of Onset Reaction(s) Facility (2 sources) No Known Medication Allergies; Translations: [No Known Medication Allergies] Propensity to adverse reactions (disorder) [facility] Repository Medications Current Medications Medication Drug Class(es) Dates Sig (Normalized) Sig (Original) acetaminophen 500 mg oral tablet (9 sources) Start: 06-22-2024 take 1 tablet by mouth every eight hours acetaminophen (TYLENOL) 500 mg tablet Take 1 tablet by mouth every 8 hours. 06/22/2024 Active Start: 04-15-2018 End: 12-11-2022 take 650 mg by mouth every six hours Acetaminophen Discontinued 650 MG PO Q6H 30 10 April 15, 2018 12:00am December 11, 2022 11:33am albuterol 0.833 mg/ml / ipratropium bromide 0.167 mg/ml inhalation solution (2 sources) Anticholinergic, beta2-Adrenergic Agonist Start: 06-22-2024 take 3 mL by inhalation every six hours as needed ipratropium-albuterol (DUONEB) 0.5 mg-3 mg(2.5 mg base)/3 mL nebu Inhale 3 mL as instructed every 6 hours as needed for wheezing/shortness of breath. 06/22/2024 Active amLODIPine 5 mg oral tablet (20 sources) Dihydropyridine Calcium Channel Sebas Start: 02-18-2017 End: 04-15-2024 take 1 tablet by mouth once daily amLODIPine (NORVASC) 5 mg tablet Take 1 tablet by mouth once daily. 0 02/18/2017 Active Comment on above: Take 1 tablet by mouth once daily. amylase [id number] unt / lipase 46975 unt / protease [id number] unt delayed release oral capsule (9 sources) Start: 01-02-2023 Zenpep 89104-91857 units capsule delayed-release particles capsule TAKE 1 CAPSULE WITH EACH MEAL AND UP TO 2 SNACKS 5 TIMES DAILY 01/02/2023 Active Start: 11-12-2022 Creon 42664-76 000 units capsule TAKE 1 CAPSULE BY MOUTH 5 TIMES DAILY DIRECTED WITH 3 MEALS AND 2 SNACKS FOR 30 DAYS 11/13/2022 Active apixaban 5 mg oral tablet (2 sources) Factor Xa Inhibitor Start: 06-22-2024 take 1 tablet by mouth twice daily apixaban (ELIQUIS) 5 mg tab(s) Take 1 tablet by mouth two times a day. 06/22/2024 Active ascorbic acid 1000 mg oral tablet [...] Units) by mouth once daily. 0 Active docusate sodium 50 mg / sennosides, fci 8.6 mg oral tablet (2 sources) Start: 06-23-2024 take 1 tablet by mouth twice daily senna-docusate (SENNA-S) 8.6-50 mg per tablet Take 1 tablet by mouth two times a day. 06/23/2024 Active elderberry fruit and flower 460-115 mg capsule (3 sources) take 1 capsule by mouth once daily [...] Daily, # 30 tab(s), Refills(s) 11, Pharmacy: [facility]/pharmacy #[id number], 178, cm, 05/27/23 9:52:00 EST, Height/Length Dosing, 80, kg, 05/27/23 9:52:00 EST, Weight Dosing Start Date: 05/27/23 Status: Ordered magnesium hydroxide 80 mg/ml oral suspension (2 sources) Start: 06-23-2024 take 30 mL by mouth twice daily magnesium hydroxide (MOM) 400 mg/5 mL suspension Take 30 mL by mouth two times a day. 06/23/2024 Active melatonin 3 mg oral tablet (2 sources) Start: 06-22-2024 take 2 tablets by mouth once daily at bedtime melatonin 3 mg tablet 2 tablets by ORAL/FEEDING TUBE route daily at bedtime. 06/22/2024 Active metoprolol tartrate 25 mg oral tablet (20 sources) beta-Adrenergic Sebas Start: 03-24-2017 End: 04-13-2018 take 25 mg by mouth once daily Metoprolol Tartrate Discontinued 25 MG PO Daily March 24, 2017 12:00am April 13, 2018 4:18pm Start: 02-07-2015 End: 05-10-2019 take 1 tablet by mouth twice daily metoprolol tartrate, short acting, (LOPRESSOR) 25 mg tablet Take 1 tablet by mouth twice daily. 02/07/2015 Active take 1 tablet by elsy th twice daily Metoprolol Succinate ER 25 MG 1 tablet Orally TWICE A D AY Active Comment on above: Take 1 tablet by elsy th twice daily. [facility] Prescription (8 sources) Start: 04-19-20 [facility] Prescription Septra 1 tablet by mouth MWF Start Date: 04/19/19 Status: Ordered omeprazole 40 mg delayed release oral capsule (8 sources) Proton Pump Inhibitor Start: 12-12-19 take 1 capsule by mouth in the morning omeprazole (PriLOSEC) [address] capsule Take 40 mg by mouth in the morning. 03/08/2023 Active ondansetron 4 mg disintegrating oral tablet (2 sources) Serotonin-3 Receptor Antagonist Start: 06-22-19 take 1 tablet by mouth every six hours as needed ondansetron orally disintegrating (ZOFRAN ODT) 4 mg disintegrating tablet Take 1 tablet by mouth every 6 hours as needed. 06/22/2024 Active Oxybutinin XL 5mg (4 sources) Oxybutinin XL 5m g Active 24 hr oxybutynin chloride 5 mg extended release oral tablet (20 sources) Cholinergic Muscarinic Antagonist Start: 02-17-20 24 take 1 tablet by mouth once daily in the evening oxybutynin 5 mg ER Tab 5 mg = 1 tab(s), Oral, qPM, # 30 tab(s), Refills(s) 11, Pharmacy: [facility]/pharmacy #[id number], 178, cm, 02/17/24 9:47:00 EDT, Height/Length Dosing, 70, kg, 02/17/24 9:47:00 EDT, Weight Dosing Start Date: 02/17/24 Status: Ordered Start: 12-11-2022 oxybutynin (Di tropan) 5 MG tablet Take 5 mg by mouth. 02/25/2023 Active Start: 02-26-2022 take 1 tablet by elsy th at bedtime oxybutynin 5 mg Tab 5 mg = 1 tab(s), Oral, Bedtime, # 30 tab(s), Refills(s) 11, Pharmacy: [facility]/pharmacy #[id number], 185, cm, 02/26/22 15:00:00 EDT, Height/Length Dosing, 99, kg, 02/26/22 15:00:00 EDT, Weight Dosing Start Date: 02/26/22 Status: Ordered take 1 tablet by elsy at bedtime Oxybutynin Chloride ER 5 MG [...] AFTER MEAL* 09/26/2022 Active polyethylene glycol 3350 48034 mg powder for oral solution (2 sources) Osmotic Laxative Start: 06-22-2024 polyethylene glycol 3350 17 gram packet 1 Packet by ORAL/FEEDING TUBE route once daily as needed. Dissolve dose in 4 - 8 ounces of liquid and take as directed. 06/22/2024 Active polyethylene glycol 3350 [id number] mg / potassium chloride 2970 mg / sodium bicarbonate 6740 mg / sodium chloride 5860 mg / sodium sulfate 46447 mg powder for oral solution (7 sources) Osmotic Laxative Start: 11-05-2022 GaviLyte-G 236 g solution TAKE DIRECTED FOR 1 DAY 11/05/2022 Active Start: 11-05-2022 take 236 g by mouth once Golyt hung 236 GM as directed Orally once for 1 days October, Not-Taking QUEtiapine 25 mg oral tablet (2 sources) Atypical Antipsychotic Start: 06-22-2024 take 1 tablet by mouth every twenty-four hours as needed QUEtiapine (SEROQUEL) 25 mg tablet Take 1 tablet by mouth at bedtime as needed. 06/22/2024 Active Sulfamethoxazole (1 source) Sulfonamide Antimicrobial Start: 08-13-2023 sulfamethoxazole Refills(s) 0 Start Date: 08/13/23 Status: Ordered sulfamethoxazole 800 mg / trimethoprim 160 mg oral tablet (20 sources) Dihydrofolate Reductase Inhibitor Antibacterial, Sulfonamide Antimicrobial Start: 07-29-2024 take 1 tablet by mouth once sulfamethoxazole-tr imethoprim (BACTRIM DS) 800-160 mg per tablet Indications: Liver replaced by transplant (HCC) TAKE 1 TABLET BY MOUTH ON THURSDAY,THURSDAY,Thursday 39 tablet 3 07/29/2024 Active Start: 02-17-2024 sulfamethoxazo le-trimethoprim 800 mg-160 mg Tab TAKE 1 TABLET BY MOUTH ON THURSDAY,THURSDAY,AND THURSDAY Start Date: 02/17/24 Status: Ordered Start: 09-10-2020 End: 07-29-2024 take 1 tablet by mouth once daily sulfamethoxazole-trimethoprim (BACTRIM D S) 800-160 mg per tablet Indications: Liver replaced by transplant (HCC) TAKE 1 TABLET BY MOUTH DAILY ON THURSDAY, THURSDAY, AND THURSDAY 39 tablet 3 08/17/2023 07/29/2024 Discontinued Start: 04-13-2018 take 1 tablet by elsy th once Sulfamethoxazole-Trimethoprim Active 1 T AB PO every Thursday, Thursday, and Friday April 13, 2018 12:00am Comment on above: TAKE ONE TABLET BY M OUTH DAILY ON MONDAYS, WEDNESDAYS AND FRIDAYS TAKE 1 TABLET BY ELSY TH DAILY ON THURSDAY, THURSDAY, AND THURSDAY Sulfamethoxazole-T MP DS (4 sources) Sulfamethoxazole -T MP DS Active tacrolimus 0.5 mg oral capsule (20 sources) Calcineurin Inhibitor Immunosuppressant Start: 06-23-19 take 3 capsules by mouth every twelve hours in the morning, then take 6 capsules by mouth in the evening tacrolimus IR (PROGRAF) 0.5 mg capsule Take 3 capsules by mouth every 12 hours at 6 am and 6 pm. 06/23/2024 Active Start: 10-25-2023 take 1 capsule by mo uth twice daily tacrolimus IR (PROGRAF) 1 mg capsule Indications: Need for prophylactic immunotherapy , Transplanted liver (HCC) take 2 capsules by mouth twice daily 360 capsule 3 10/25/2023 Suspended Start: 11-05-2022 End: 10-25-2023 tacrolimus IR (PROGRAF) [...] Daily, # 30 tab(s), Refills(s) 11, Pharmacy: [facility]/pharmacy #[id number], 185, cm, 09/10/22 9:37:00 EDT, Height/Length Dosing, 99, kg, 09/10/22 9:37:00 EDT, Weight Dosing Start Date: 09/10/22 Status: Ordered tamsulosin hydrochloride 0.4 mg oral capsule (7 sources) alpha-Adrenergic Sebas Start: 025 take 2 capsules by mouth once daily at bedtime tamsulosin (FLOMAX) 0.4 mg Take 2 capsules by mouth daily at bedtime. 06/23/2024 Active End: 04-15-2024 take 1 capsule by mouth twice daily [...] capsule Orally Once a day Active Zenpep 27654 UNIT (1 source) Start: 01-01-2023 Zenpep 67941 U NIT 1 WITH EACH MEAL & [...] Drug Class(es) Dates Sig (Normalized) Sig (Original) Black Elderberry(Garcia-F lower) CAPS (3 sources) Black Elderberry(Garcia-Fl ower) CAPS 2000 mg daily Quantity: 0 Refills: 0 Ordered: 27-Mar-2022 DO Active Sulfamethoxazole-T MP DS TABS (3 sources) Sulfamethoxazole -TM P DS TABS TAKE 1 TABLET DAILY ON THURSDAY, THURSDAY, AND THURSDAY. Quantity: 0 Refills: 0 Ordered: 27-Mar-2022 DO Active Trimethoprim-Sulfa methoxazole (7 sources) Start: 03-24-2017 End: 04-13-2018 take [...] Documented Da te Episodic/Chronic Biliary tract disease (15 sources) Leakage of bile; Translations: [Disease of biliary tract, unspecified] Onset: 02-07-2015 06-10-2021 Chronic Cancer of prostate (12 sources) Carcinoma in situ of prostate; Translations: [Carcinoma in situ of prostate] Onset: 12-24-2021 Chronic Cardiac arrest and ventricular fibrillation (7 sources) EKG: asystole; Translations: [Cardiac arrest, cause unspecified] 04-14-2018 Chronic Cardiac dysrhythmias (20 sources) Sick sinus syndrome; Translations: [Sinoatrial node dysfunction] Onset: 04-09-2023 04-14-2018 Chronic Conduction disorders (14 sources) Cardiac pacemaker in situ; Translations: [Cardiac pacemaker in situ] Onset: 01-27-2022 04-10-2023 Chronic Coronary atherosclerosis and other heart disease (1 source) Coronary atherosclerosis and other heart disease Onset: 03-26-2017 Disorders of lipid metabolism (20 sources) Hyperlipidemia; Translations: [Other and unspecified hyperlipidemia] Onset: 01-27-2022 12-21-2018 Chronic Essential hypertension (20 sources) Essential (primary) hypertension; Translations: [Essential hypertension] Onset: 03-26-2017 04-14-2018 Chronic Essential hypertension (2 sources) Essential hypertension Onset: 03-26-2017 Fluid and electrolyte disorders (11 sources) Hyponatremia; Translations: [Hypo-osmolality and hyponatremia] Onset: 08-18-2012 Resolved: 02-18-2017 06-10-2021 Episodic Genitourinary symptoms and ill-defined conditions (20 sources) Microscopic hematuria; Translations: [Nocturia] Onset: 01-27-2022 12-21-2018 Episodic Hyperplasia of prostate (20 sources) Benign prostatic hypertrophy with outflow obstruction; Translations: [Benign prostatic hyperplasia with lower urinary tract symptoms] Onset: 12-24-2021 Chronic Intestinal obstruction without hernia (8 sources) Small bowel obstruction; Translations: [Unspecified intestinal obstruction, unspecified as to partial versus complete obstruction] Onset: 06-03-2024 Resolved: 06-21-2024 06-03-2024 Episodic Malaise and fatigue (2 sources) Physical deconditioning; Translations: [Other malaise] Onset: 06-22-2024 06-22-2024 Episodic Nausea and vomiting (1 source) Bilious vomiting; Translations: [Bilious vomiting with nausea] Onset: 06-03-2024 Episodic Nutritional deficiencies (5 sources) Deficiency of macronutrients; Translations: [Unspecified severe protein-calorie malnutrition] Onset: 06-05-2024 06-05-2024 Chronic Nutritional deficiencies (1 source) Magnesium deficiency; Translations: [MAGNESIUM DEFICIENCY] Onset: 10-23-2022 Episodic Osteoporosis (4 sources) Primary osteoporosis; Translations: [Age-related osteoporosis without current pathological fracture] Chronic Other aftercare (1 source) Encounter for aftercare following liver transplant; Translations: [ENC AFTERCARE FLW LIVER TRANSPLANT] Onset: 10-23-2022 Chronic Other aftercare (10 sources) Long-term current use of anticoagulant 11-24-2019 Episodic Other aftercare (1 source) USP (current) use of aspirin; Translations: [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 OF ASPIRIN] Onset: 09-29-2022 Episodic Other aftercare (1 source) Other group home (current) drug therapy; Translations: [OTH HALFWAY CURRENT DRUG THERAPY] Onset: 09-29-2022 Episodic Other aftercare (1 source) Postoperative visit; Translations: [Encounter for other specified surgical aftercare] 07-22-2024 Episodic Other aftercare (2 sources) Polypharmacy ; Translations: [Other group home (current) drug therapy] Onset: 06-21-2024 06-22-2024 Episodic Other aftercare (2 sources) Drug therapy finding; Translations: [USP (current) use of anticoagulants] Onset: 06-22-2024 06-22-2024 Episodic Other aftercare (1 source) Encounter for follow-up examination after completed treatment for conditions other than malignant neoplasm; Translations: [Hospital discharge follow-up] Onset: 07-15-2024 Episodic Other and unspecified benign neoplasm (2 [...] [Shortness of breath] Onset: 04-15-2024 Episodic Other lower respiratory disease (1 source) Other abnormalities of breathing; Translations: [Acute respiratory insufficiency] Onset: 06-21-2024 Episodic Other male genital disorders (14 sources) Male erectile dysfunction, unspecified; Translations: [Erectile dysfunction] Onset: 09-10-2022 Chronic Other male genital disorders (10 sources) Prostatic pain 11-24-2019 Episodic Other nervous system disorders (3 sources) Postoperative pain ; Translations: [Other acute postprocedural pain] Onset: 06-07-2024 06-16-2024 Episodic Other nutritional; endocrine; and metabolic disorders [...] index (BMI) 20.0-20.9, adult] Onset: 04-15-2024 Episodic Residual codes; unclassified (1 source) Other specified postprocedural states; Translations: [History of abdominal surgery] Onset: 06-03-2024 Episodic Screening and history of mental health [...] transplant status / Z94.4(ICD-9) Onset: 03-26-2017 Unclassified (15 sources) SUMMARY Onset: 08-14-2012 Unclassified (8 sources) [...] Date Documented Da te Episodic/Chronic Abdominal hernia (15 sources) Inguinal hernia; Translations: [Unilateral inguinal hernia, without obstruction or gangrene, not specified as recurrent] Onset: 02-02-2008 02-02-2008 Episodic Acute and unspecified renal failure (8 sources) Acute renal failure syndrome; Translations: [Acute kidney failure, unspecified] Onset: 02-07-2015 Resolved: 02-18-2017 02-18-2017 Episodic Aspiration pneumonitis; food/vomitus (3 sources) Aspiration pneumonia; Translations: [Pneumonitis due to inhalation of food and vomit] Onset: 06-15-2024 Resolved: 06-21-2024 06-15-2024 Episodic Bacterial infection; unspecified site (16 sources) Bacteremia; Translations: [Bacteremia] Onset: 01-06-2007 Resolved: 02-18-2017 02-18-2017 Episodic Cancer of liver and intrahepatic bile duct (8 sources) Liver cell carcinoma; Translations: [Liver cell carcinoma] Onset: 12-21-2014 Resolved: 02-18-2017 02-18-2017 Chronic Cancer of liver and intrahepatic bile duct (15 sources) History of hepatocellular carcinoma; Translations: [Personal history of malignant neoplasm of liver] Onset: 02-18-2017 02-18-2017 Episodic Chronic obstructive pulmonary disease and bronchiectasis (3 sources) Acute exacerbation of chronic obstructive airways disease; Translations: [Chronic obstructive pulmonary disease with (acute) exacerbation] Onset: 06-15-2024 Resolved: 06-21-2024 06-15-2024 Chronic Complication of device; implant or graft (15 sources) Biliary stricture; Translations: [Other complications of liver transplant] Onset: 02-07-2015 02-07-2015 Episodic Complications of surgical procedures or medical care (3 sources) Drug-induced hypotension; Translations: [Hypotension due to drugs] Onset: 06-11-2024 Resolved: 06-15-2024 06-15-2024 Episodic Diabetes mellitus without complication (4 sources) Impaired glucose tolerance (oral); Translations: [Hyperglycemia] Onset: 10-23-2022 Resolved: 06-23-2024 06-17-2024 Episodic Diseases of white blood cells (8 sources) Leukocytosis; Translations: [Elevated white blood cell count, unspecified] Onset: 08-18-2012 Resolved: 06-23-2024 06-10-2021 Chronic Hepatitis (20 sources) Viral hepatitis C; Translations: [Unspecified viral hepatitis C without hepatic coma] Onset: 05-03-2013 Resolved: 02-18-2017 12-21-2018 Episodic Neoplasms of unspecified nature or uncertain behavior (15 sources) Neoplasm of pancreas; Translations: [Neoplasm of unspecified behavior of digestive system] Onset: 11-10-2012 11-10-2012 Episodic Other aftercare (1 source) 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; Translations: [HALFWAY CURRNT USE ANTICOAGULANTS] Onset: 01-27-2022 Episodic Other and unspecified benign neoplasm (19 sources) History of polyp of colon; Translations: [Personal history of colonic polyps] Onset: 02-18-2017 02-18-2017 Episodic Other gastrointestinal disorders (8 sources) Ascites; Translations: [Other ascites] Onset: 11-10-2012 Resolved: 02-18-2017 02-18-2017 Episodic Other infections; including parasitic (15 sources) History of hepatitis C; Translations: [Personal history of other infectious and parasitic diseases] Onset: 02-18-2017 02-18-2017 Episodic Other liver diseases (8 sources) Cirrhosis of liver; Translations: [Unspecified cirrhosis of liver] Onset: 10-18-2007 Resolved: 02-18-2017 06-10-2021 Chronic Other liver diseases (8 sources) Portal hypertension; Translations: [Portal hypertension] Onset: 11-10-2012 Resolved: 02-18-2017 02-18-2017 Chronic Other liver diseases (3 sources) Drug-induced disorder of liver; Translations: [Toxic liver disease, unspecified] Onset: 06-15-2024 Resolved: 06-21-2024 06-15-2024 Chronic Other liver diseases (8 sources) Hepatic encephalopathy; Translations: [Hepatic encephalopathy] Onset: 08-14-2012 Resolved: 02-18-2017 06-10-2021 Episodic Other lower respiratory disease (3 sources) Respiratory insufficiency; Translations: [Other abnormalities of breathing] Onset: 06-09-2024 Resolved: 06-21-2024 06-13-2024 Episodic Other nutritional; endocrine; and metabolic disorders (9 sources) Overweight in adulthood with body mass index of 25 or more but less than 30; Translations: [Body Mass Index 29.0-29.9, adult] Onset: 04-09-2023 Resolved: 04-15-2024 04-10-2023 Episodic Residual codes; unclassified (17 sources) Prevention status; Translations: [Encounter for other specified prophylactic measures] Onset: 02-07-2015 02-07-2015 Episodic Residual codes; unclassified (2 sources) Delirium; Translations: [Disorientation, unspecified] Onset: 06-21-2024 Resolved: 06-23-2024 06-23-2024 Episodic Respiratory failure; insufficiency; arrest (adult) (8 sources) Ventilator finding; Translations: [Dependence on respirator [ventilator] status] Onset: 08-14-2012 Resolved: 02-18-2017 06-10-2021 Chronic Respiratory failure; insufficiency; arrest (adult) (4 sources) Acute respiratory failure; Translations: [Acute respiratory failure with hypoxia] Onset: 06-08-2024 Resolved: 06-21-2024 06-13-2024 Episodic Unclassified (3 sources) Onset: 04-10-2023 Resolved: 04-15-2024 04-10-2023 Unclassified (8 sources) Drug therapy finding; Translations: [DVT prophylaxis] Onset: 08-14-2012 Resolved: 02-18-2017 06-10-2021 Results Test Name Value Interpretation Reference Range Facility CNOVon 07-22-2024 CNOV Normal [facility] ECG COMPLETEon 07-15-2024 ECG COMPLETE Normal [facility] Ambulatory Visit Summaryon 0 07-08-2024 Ambulatory Visit Summary Ambulatory Visi t Summary SUSAN SHERMAN :1950 Visit Date:07/08/2024 Ambulatory Visit Instructions Your Diagnosis Urinary retention UTI (urinary tract infection) Elevated PSA Immunosuppression Other obstructive and reflux uropathy Your Care Team Attending Physician - VINICIUS RUSSELL PA-C Primary Care Physician - ELVIRA SCHULTZ DO This Is Your Medications List finasteride (finasteride 5 mg Tab) Contact prescribing physician if questions or concerns acetaminophen albuterol-ipratropium amlodipine apixaban (Eliquis) dicyclomine levothyroxine magnesium hydroxide metoprolol (Metoprolol tartrate 25 mg Tab) ondansetron polyethylene glycol 3350 (MiraLax) senna sulfamethoxazole-trime thoprim (sulfamethoxazole-trim ethoprim 800 mg-160 mg Tab) tacrolimus tamsulosin temazepam (Restoril) trazodone Procedures Performed Cystoscopy (09/22/2022), Transrectal biopsy of prostate using ultrasound (US) guidance (01/22/2022), Transrectal biopsy of prostate using ultrasound (US) guidance (11/09/2019), Transrectal biopsy of prostate using ultrasound (US) guidance (05/19/2018), Appendectomy, Cardiac pacemaker, Colonoscopy, Tonsillectomy, Tx - Liver transplantation. Discharge Vitals Heart Rate (Peripheral) 62 Respiratory Rate 18 Blood Pressure 108/68 Height 178 cm Height 70 in What to do next Scheduled Follow-Up Appointments Thursday 9:40 AM EST With: VINICIUS RUSSELL PA-C Where: [facility] [address] [place] [address]- You Need to Schedule the Following Appointments Follow Up with VINICIUS RUSSELL PA-C, URL When: Within 6 weeks Where: [address] [facility] [place] [address] Business (1) Medications What How Much When Instructions New finasteride (finasteride 5 mg Tab) 1 Tablets By Mouth Every day Unchanged acetaminophen 500 Milligram By Mouth Contact prescribing physician if questions or concerns Unchanged albuterol-ipratropium See instructions Contact prescribing physician if questions or concerns Unchanged amlodipine 10 Milligram By Mouth Contact prescribing physician if questions or concerns Unchanged apixaban (Eliquis) 5 Milligram By Mouth 2 times a day Contact prescribing physician if questions or concerns Unchanged dicyclomine 20 Milligram By Mouth 4 times a day Contact prescribing physician if questions or concerns Unchanged levothyroxine 25 Microgram By Mouth Every day Contact prescribing physician if questions or concerns Unchanged magnesium hydroxide 400 Milligram By Mouth Contact prescribing physician if questions or concerns Unchanged metoprolol (Metoprolol tartrate 25 mg Tab) 1 Tablets By Mouth 2 times a day Contact prescribing physician if questions or concerns Unchanged ondansetron 4 Milligram By Mouth Contact prescribing physician if questions or concerns Unchanged polyethylene glycol 3350 (MiraLax) 17 Gram By Mouth Contact prescribing physician if questions or concerns Unchanged senna 8.6 Milligram By Mouth Contact prescribing physician if questions or concerns Unchanged sulfamethoxazole-trime thoprim (sulfamethoxazole-trim ethoprim 800 mg-160 mg Tab) TAKE 1 TABLET BY MOUTH ON THURSDAY,THURSDAY,AND THURSDAY Contact prescribing physician if questions or concerns Unchanged tacrolimus 1 Milligram By Mouth 2 times a day Contact prescribing physician if questions or concerns Unchanged tamsulosin 0.8 Milligram By Mouth Every day Contact prescribing physician if questions or concerns Unchanged temazepam (Restoril) 15 Milligram By Mouth Once a day (at bedtime) Contact prescribing physician if questions or concerns Unchanged trazodone 50 Milligram By Mouth Once a day (at bedtime) Contact prescribing physician if questions or concerns Allergies No Known Medication Allergies Problems Ongoing - Any problem that you are currently receiving treatment for. Anticoagulant long-term use BPH with urinary obstruction ED (erectile dysfunction) Elevated PSA Feeling of incomplete bladder emptying Former smoker Hepatitis C Hyperlipidemia Immunosuppression Male hypogonadism Microscopic hematuria Nocturia PIN III (prostatic intraepithelial neoplasm III) Prostate pain Urinary retention UTI (urinary tract infection) Weak urinary stream Patient Survey You may receive a survey via text or e-mail asking about your office visit. Please share your experience with us by completing your survey. We appreciate your feedback and thank you for choosing us for your care. Education Materials Acute Urinary Retention, Male Acute urinary retention is a condition in which a person is unable to pass urine or can only pass a little urine. This condition can happen suddenly and last for a short time. If left untreated, it can become long-term (chronic) and result in kidney damage or other seriou (more content not included)... Normal [facility] Ambulatory Visit Summary Ambulatory Visi t Summary SUSAN SHERMAN :1950 Visit Date:07/08/2024 Ambulatory Visit Instructions Your Diagnosis Urinary retention Your Care Team Attending Physician - VINICIUS RUSSELL PA-C Primary Care Physician - ELVIRA SCHULTZ DO This Is Your Medications List acetaminophen albuterol-ipratropium amlodipine apixaban (Eliquis) dicyclomine levothyroxine magnesium hydroxide metoprolol (Metoprolol tartrate 25 mg Tab) ondansetron polyethylene glycol 3350 (MiraLax) senna sulfamethoxazole-trime thoprim (sulfamethoxazole-trim ethoprim 800 mg-160 mg Tab) tacrolimus tamsulosin temazepam (Restoril) trazodone Procedures Performed Cystoscopy (09/22/2022), Transrectal biopsy of prostate using ultrasound (US) guidance (01/22/2022), Transrectal biopsy of prostate using ultrasound (US) guidance (11/09/2019), Transrectal biopsy of prostate using ultrasound (US) guidance (05/19/2018), Appendectomy, Cardiac pacemaker, Colonoscopy, Tonsillectomy, Tx - Liver transplantation. Discharge Vitals Heart Rate (Peripheral) 62 Respiratory Rate 18 Blood Pressure 108/68 Height 178 cm Height 70 in What to do next Scheduled Follow-Up Appointments Thursday 9:40 AM EST With: VINICIUS RUSSELL PA-C Where: [facility] [address] [place] [address]- Medications What How Much When Instructions Unchanged acetaminophen 500 Milligram By Mouth Unchanged albuterol-ipratropium See instructions Unchanged amlodipine 10 Milligram By Mouth Unchanged apixaban (Eliquis) 5 Milligram By Mouth 2 times a day Unchanged dicyclomine 20 Milligram By Mouth 4 times a day Unchanged levothyroxine 25 Microgram By Mouth Every day Unchanged magnesium hydroxide 400 Milligram By Mouth Unchanged metoprolol (Metoprolol tartrate 25 mg Tab) 1 Tablets By Mouth 2 times a day Unchanged ondansetron 4 Milligram By Mouth Unchanged polyethylene glycol 3350 (MiraLax) 17 Gram By Mouth Unchanged senna 8.6 Milligram By Mouth Unchanged sulfamethoxazole-trime thoprim (sulfamethoxazole-trim ethoprim 800 mg-160 mg Tab) TAKE 1 TABLET BY MOUTH ON THURSDAY,THURSDAY,AND THURSDAY Unchanged tacrolimus 1 Milligram By Mouth 2 times a day Unchanged tamsulosin 0.8 Milligram By Mouth Every day Unchanged temazepam (Restoril) 15 Milligram By Mouth Once a day (at bedtime) Unchanged trazodone 50 Milligram By Mouth Once a day (at bedtime) Allergies No Known Medication Allergies Problems Ongoing [...] you for choosing us for your care. Normal [facility] Urology Office/Clinic Noteon 07-08-2024 Urology Office/Clinic Note Urology Office/Clinic Note Chief Complaint urinary retention HPI Staff 74yr old male pt here to discuss retention treatment. Presented to [facility] ED 06/03/24 w SBO. Transferred to [facility]. Ex lap 06/06. 06/08 aspiration PNA. 06/11 reintubated d/t resp failure. 06/16 extubated, NGT out. 06/18 out of ICU to reg floor. 06/20 tube feeds dc'd. 06/22 mejia removed for dc planning, required straight cath overnight. 06/23 mejia replaced prior to dc to SNF. Pt Currently at [facility]. Eventual plan is dc home w one of his children but he is still very weak. Just recently started PT. On Terazosin 5mg, Finasteride 5mg qd, and Oxybutynin ER 5mg qd when he saw [facility] in Feb 2024. Looks like he is now on Tamsulosin 0.8mg daily only. Pt denies seeing any blood in the Mejia that he knows of. He recently had abdominal surgery, so attributes pain to that. Also reports a lot of issues with constipation. Looks like he's on Miralax, mag hydroxide, and senna plus but still reports hard stools which are very difficult to pass. Review of Systems PHQ Score Initial Depression Screen Score: 0 SCORE Denies subjective fever, chills, myalgia. No drastic changes in appetite or intake. No drastic changes in energy/strength/stamin a. No significant mentation changes noted by daughter. Physical Exam Vitals & Measurements HR: 62(Peripheral) RR: 18 BP: 108/68 HT: 70 in HT: 178 cm General: frail but nontoxic, NAD Mouth: moist mucosa Lungs: normal respiratory effort Cardio: regular rate, good distal perfusion Abdomen: nondistended, no suprapubic distention or tenderness, no CVA tenderness. Mejia draining clear urine. Neurologic: Grossly normal Assessment/Plan 1. Urinary retention (R33.9: Retention of urine, unspecified) Hx BPH. Was previously on Terazosin 5mg qd and Finasteride 5mg qd, as well as Oxybutynin 5mg ER qd. These meds were changed during recent prolonged hospital admission. Now taking Tamsulosin 0.8mg only. Will resume Finasteride. Will hold off on resuming Oxybutynin d/t retention issues. Pt not having any bladder spasms w the mejia. Long discussion w pt/daughter regarding risks/benefits of mejia. Since pt continues to struggle w constipation, has limited mobility, minimal appetite, and minimal energy - higher risk to fail void trial at this time. Pt does not mind the mejia. Will maintain mejia until improvement in diet/po intake, bowels (has constipation), mobility, energy/strength/stamin a. Order given for q4w changes at [facility] and PRN flush/irrigation. -Resume Finasteride 5mg qd. -Maintain meija. -Aggressive bowel management. Ordered: Body Mass Index (BMI) documented 3008F Current tobacco non-user 1036F Depression Screening Negative 3352F E&M of Est. Patient Moderate 30-39 Min 24799 Influenza immunization status assessed 1030F Medication list documented in medical record 1159F Most recent diastolic blood pressure <80 mm Hg 3078F Patient screen for fall risk: no falls in last year or 1 fall with no injury in last year 1101F Review of all meds by a prescribing practitioner or clinical pharmacist documented in EHR 1160F Systolic BP <130 mm Hg (Most Recent) 3074F 2. UTI (urinary tract infection) (N39.0: Urinary tract infection, site not specified) Treated for Enterococcus UTI 06/24/24 (franco-S). Abx not listed on info from [facility]. Currently asx. Discussed UTI sx for family to watch for since Cx will always be + with indwelling mejia. Daughter requests to start probiotics. -Start Probiotics daily for gut health/UTI prevention. -Contact office if develops signs/sx of UTI. 3. Elevated PSA (R97.20: Elevated prostate specific antigen [PSA]) Not addressed today. See ov note 02/17/24 for details. 4. Immunosuppression (D84.9: Immunodeficiency, unspecified) Liver transplant 2014 on chronic immunosuppression and Bactrim M/W/F. Other obstructive and reflux uropathy (N13.8: Other obstructive and reflux uropathy) Orders: finasteride, 5 mg = 1 tab(s), Oral, Daily, # 30 tab(s), Refills(s) 11, Pharmacy: [facility]/pharmacy #[id number], 178, cm, 05/27/23 9:52:00 EST, Height/Length Dosing, 80, kg, 05/27/23 9:52:00 EST, Weight Dosing Pt had 6 mo f/u w [facility] in a couple weeks. Will cancel this appt for now. I will manage his care through the current retention episode. Once stable will figure out regular f/u for his PSA/BPH w [facility]/LT. Follow-up With When Contact Information VINICIUS RUSSELL PA-C, URL Within 6 weeks [address] [place] [address] Business (1) Additional Instructions: Patient Education Acute Urinary Retention, Male Problem List/Past Medical History Ongoing Anticoagulant long-term use BPH with urinary obstruction ED (erectile dysfunction) Elevated PSA Feeling of incomplete bladder emptying Former smoker Hepatitis C Hyperlipidemia Immunosuppression Male hypogonadism Microscopic hematuria Nocturia PIN III (prostatic intraepithelial neoplasm III) Prostate pain Urinary retention UTI (u (more content not included)... Normal [facility] Comment on above: Result Comment: Elec tronically Signed By: VINICIUS RUSSELL PA-C\.br\Date and Time Signed: 07/08/24 12:49 EST CASE MANAGEMon 06-23-2024 CASE MANAGEM Normal [facility] CBC panel Auto (Bld)on 06-23 Erythrocyte distribution width (RBC) [Ratio] 14.5 % Normal 11.5-15.0 [facility] Comment on above: Order Comment: Speci men Type: BLOOD SPECIMENOrdering Facility: [facility] Address: [address] [place] [address] Performed By: #### 5 8410-2 ####[facility] LABIA [id number] [place] [address] [place] Hematocrit (Bld) [Volume fraction] 36.9 % Low 39.0-51.0 [facility] Comment on above: Order Comment: Speci men Type: BLOOD SPECIMENOrdering Facility: [facility] Address: [address] [place] [address] Performed By: #### 5 8410-2 ####[facility] LABCLIA [id number] [place] [address] [place] Hemoglobin (Bld) [Mass/Vol] 12.5 g/dL Low 13.0-17.0 [facility] Comment on above: Order Comment: Speci men Type: BLOOD SPECIMENOrdering Facility: [facility] Address: [address] [place] [address] Performed By: #### 5 8410-2 ####[facility] [id number] [place] [address] [place] MCH (RBC) [Entitic mass] 30.9 pg Normal 26.0-34.0 [facility] Comment on above: Order Comment: Speci men Type: BLOOD SPECIMENOrdering Facility: [facility] Address: [address] [place] [address] Performed By: #### 5 8410-2 ####[facility] LABCLIA [id number] [place] [address] [place] MCHC (RBC) [Mass/Vol] 33.9 g/dL Normal 30.5-36.0 [facility] Comment on above: Order Comment: Speci men Type: BLOOD SPECIMENOrdering Facility: [facility] Address: [address] [place] [address] Performed By: #### 5 8410-2 ####[facility] [id number] [place] [address] [place] MCV (RBC) [Entitic vol] 91.1 fL Normal 80.0-100.0 [facility] Comment on above: Order Comment: Speci men Type: BLOOD SPECIMENOrdering Facility: [facility] Address: [address] [place] [address] Performed By: #### 5 8410-2 ####[facility] [id number] [place] [address] [place] Nucleated RBC (Bld) [#/Vol] 10*3/uL Normal <0.01 [facility] Comment on above: Order Comment: Speci men Type: BLOOD SPECIMENOrdering Facility: [facility] Address: [address] [place] [address] Performed By: #### 5 8410-2 ####[facility] [id number] [place] [address] [place] Platelet mean volume (Bld) [Entitic vol] 9.1 fL Normal 9.0-12.7 [facility] Comment on above: Order Comment: Speci men Type: BLOOD SPECIMENOrdering Facility: [facility] Address: [address] [place] [address] Performed By: #### 5 8410-2 ####[facility] [id number] [place] [address] [place] Platelets (Bld) [#/Vol] 257 10*3/uL Normal 150-400 [facility] Comment on above: Order Comment: Speci men Type: BLOOD SPECIMENOrdering Facility: [facility] Address: [address] [place] [address] Performed By: #### 5 8410-2 ####[facility] LABCLIA [id number] [address] [address] [place] RBC (Bld) [#/Vol] 4.05 10*6/uL Low 4.20-6.00 [facility] Comment on above: Order Comment: Speci men Type: BLOOD SPECIMENOrdering Facility: [facility] Address: [address] [place] [address] Performed By: #### 5 8410-2 ####[facility] LABCLIA [id number] [place] [address] [place] WBC (Bld) [#/Vol] 12.64 10*3/uL High 3.70-11.00 [facility] Comment on above: Order Comment: Speci men Type: BLOOD SPECIMENOrdering Facility: [facility] Address: [address] [place] [address] Performed By: #### 5 8410-2 ####[facility] LABCLIA [id number] [place] [address] [place] CNDSon 06-23-2024 CNDS Normal [facility] Comprehensive metabolic 2000 panelon 06-23-2024 Albumin [Mass/Vol] 3.6 g/dL Low 3.9-4.9 [facility] Comment on above: Order Comment: Speci men Type: BLOOD SPECIMENOrdering Facility: [facility] Address: [address] [place] [address] Performed By: #### 2 4323-8 ####[facility] [id number] [place] [address] [place] ALP [Catalytic activity/Vol] 86 U/L Normal 38-113 [facility] Comment on above: Order Comment: Speci men Type: BLOOD SPECIMENOrdering Facility: [facility] Address: [address] [place] [address] Performed By: #### 2 4323-8 ####[facility] LABCLIA [id number] [place] [id number] [place] ALT [Catalytic activity/Vol] 47 U/L Normal 10-54 [facility] Comment on above: Order Comment: Speci men Type: BLOOD SPECIMENOrdering Facility: [facility] Address: [address] [place] [address] Performed By: #### 2 4323-8 ####[facility] LABCLIA [id number] [place] [address] [place] Anion gap [Moles/Vol] 12 mmol/L Normal 8-15 [facility] Comment on above: Order Comment: Speci men Type: BLOOD SPECIMENOrdering Facility: [facility] Address: [address] [place] [address] Performed By: #### 2 4323-8 ####[facility] LABCLIA [id number] [place] [address] [place] AST [Catalytic activity/Vol] 20 U/L Normal 14-40 [facility] Comment on above: Order Comment: Speci men Type: BLOOD SPECIMENOrdering Facility: [facility] Address: [address] [place], [place] [address] Performed By: #### 2 4323-8 ####[facility] LABCLIA [id number] [place] [address] [place] Bilirubin [Mass/Vol] 0.5 mg/dL Normal 0.2-1.3 [facility] Comment on above: Order Comment: Speci men Type: BLOOD SPECIMENOrdering Facility: [facility] Address: [address] [place], [place] [address] Performed By: #### 2 4323-8 ####[facility] LABCLIA [id number] [place] [id number] [place] Calcium [Mass/Vol] 9.1 mg/dL Normal 8.5-10.2 [facility] Comment on above: Order Comment: Speci men Type: BLOOD SPECIMENOrdering Facility: [facility] Address: [address] [place] [address] Performed By: #### 2 4323-8 ####[facility] LABCLIA [id number] [place] [id number] [place] Chloride [Moles/Vol] 100 mmol/L Normal 98-107 [facility] Comment on above: Order Comment: Speci men Type: BLOOD SPECIMENOrdering Facility: [facility] Address: [address] [place] [address] Performed By: #### 2 4323-8 ####[facility] LABCLIA [id number] [place] [address] [place] CO2 [Moles/Vol] 26 mmol/L Normal 22-30 [facility] Comment on above: Order Comment: Speci men Type: BLOOD SPECIMENOrdering Facility: [facility] Address: [address] [place] [address] Performed By: #### 2 4323-8 ####[facility] LABCLIA [id number] [place] [address] [place] Creatinine [Mass/Vol] 0.82 mg/dL Normal 0.73-1.22 [facility] Comment on above: Order Comment: Speci men Type: BLOOD SPECIMENOrdering Facility: [facility] Address: [address] [place] [address] Performed By: #### 2 4323-8 ####[facility] LABCLIA [id number] [place] [address] [place] Creatinine and Glomerular filtration rate.predicted panel (S/P/Bld) 93 mL/min/1.73m??? Normal >=60 [facility] Comment on above: Order Comment: Speci men Type: BLOOD SPECIMENOrdering Facility: [facility] Address: [address] [place] [address] Result Comment: Stephanie mated Glomerular Filtration Rate (eGFR) is calculated using the 2020 CKD-EPI creatinine equation. This equation utilizes serum creatinine, sex, and age as parameters. The creatinine assay has traceable calibration to isotope dilution-mass spectrometry. Refer to KDIGO guidelines for clinical interpretation. In patients with unstable renal function, e.g. those with acute kidney injury, the eGFR may not accurately reflect actual GFR. Performed By: #### 2 4323-8 ####[facility] LABCLIA [id number] [place] [address] [place] Glucose [Mass/Vol] 79 mg/dL Normal 74-99 [facility] Comment on above: Order Comment: Allegra donis Type: BLOOD SPECIMENOrdering Facility: [facility] Address: [address] [place] [address] Result Comment: The [place] Diabetes Association (ADA) provides guidance for cutoff values for fasting glucose and random glucose. The ADA defines fasting as no caloric intake for at least 8 hours. Fasting plasma glucose results between 100 to 125 mg/dL indicate increased risk for diabetes (prediabetes).Fasting plasma glucose results greater than or equal to 126 mg/dL meet the criteria for diagnosis of diabetes. In the absence of unequivocal hyperglycemia, results should be confirmed by repeat testing. In a patient with classic symptoms of hyperglycemia or hyperglycemic crisis, random plasma glucose results greater than or equal to 200 mg/dL meet the criteria for diagnosis of diabetes.Reference: Standards of Medical Care in Diabetes 2016, [place] [employer]. Diabetes Care. 2016.39(Suppl 1). Performed By: #### 2 4323-8 ####[facility] LABCLIA [id number] [place] [id number] [place] Potassium [Moles/Vol] 4.6 mmol/L Normal 3.7-5.1 [facility] Comment on above: Order Comment: Allegra donis Type: BLOOD SPECIMENOrdering Facility: [facility] Address: [address] [place] [id number] Performed By: #### 2 4323-8 ####[facility] LABCLIA [id number] [place] [id number] [place] Protein [Mass/Vol] 5.6 g/dL Low 6.3-8.0 [facility] Comment on above: Order Comment: Speci men Type: BLOOD SPECIMENOrdering Facility: [facility] Address: [address] [place] [address] Performed By: #### 2 4323-8 ####[facility] LABCLIA [id number] [place] [address] [place] Sodium [Moles/Vol] 138 mmol/L Normal 136-144 [facility] Comment on above: Order Comment: Speci men Type: BLOOD SPECIMENOrdering Facility: [facility] Address: [address] [place] [address] Performed By: #### 2 4323-8 ####[facility] LABCLIA [id number] [place] [address] [place] Urea nitrogen [Mass/Vol] 28 mg/dL High 9-24 [facility] Comment on above: Order Comment: Speci men Type: BLOOD SPECIMENOrdering Facility: [facility] Address: [address] [place] [address] Performed By: #### 2 4323-8 ####[facility] LABCLIA [id number] [place] [address] [place] Magnesium SerPl-mCncon 06-23 Magnesium [Mass/Vol] 2.0 mg/dL Normal 1.7-2.3 [facility] Comment on above: Order Comment: Speci men Type: BLOOD SPECIMENOrdering Facility: [facility] Address: [address] [place] [address] Performed By: #### 1 9123-9 ####[facility]CLIA [id number] [place] [address] [place] PT EDon 06-23-2024 PT ED Normal [facility] Phosphate SerPl-mCncon 06-23 Phosphate [Mass/Vol] 3.6 mg/dL Normal 2.7-4.8 [facility] Comment on above: Order Comment: Speci men Type: BLOOD SPECIMENOrdering Facility: [facility] Address: [address] [place] [address] Performed By: #### 2 777-1 ####[facility]CL[facility] [id number] [place] [address] [place] THERAPY NTon 06-23-2024 THERAPY NT Normal [facility] Tacrolimus Bld-mCncon 2024 Tacrolimus (Bld) [Mass/Vol] 4.0 ng/mL Low 5.0-20.0 [facility] Comment on above: Order Comment: Allegra donis Type: BLOOD SPECIMENOrdering Facility: [facility] Address: [address] [place] [address] Result Comment: Noreen vidualized target levels for [...] Alinity i. Performed By: #### 1 1253-2 ####[facility]CL[facility] [id number] [place] [address] [place] XR ABDOMEN 1V SUPINEon 06-23 XR ABDOMEN 1V SUPINE Normal [facility] CASE MANAGEMon 06-22-2024 CASE MANAGEM Normal [facility] [place] CASE MANAGEM Normal [facility] [place] CASE MANAGEM Normal [facility] [place] CBC panel Auto (Bld)on 06-22 Erythrocyte distribution width (RBC) [Ratio] 14.4 % Normal 11.5-15.0 [facility] [place] Comment on above: Order Comment: Allegra donis Type: BLOOD SPECIMENOrdering Facility: [facility] Address: [address] [place] [address] Performed By: #### 5 8410-2 ####[facility] LABCLIA [id number] [place] [address] [place] Hematocrit (Bld) [Volume fraction] 36.8 % Low 39.0-51.0 [facility] [place] Comment on above: Order Comment: Speci men Type: BLOOD SPECIMENOrdering Facility: [facility] Address: [address] [place] [address] Performed By: #### 5 8410-2 ####[facility] LABIA [id number] [place] [address] [place] Hemoglobin (Bld) [Mass/Vol] 11.9 g/dL Low 13.0-17.0 [facility] [place] Comment on above: Order Comment: Speci men Type: BLOOD SPECIMENOrdering Facility: [facility] Address: [address] [place] [address] Performed By: #### 5 8410-2 ####[facility] LABIA [id number] [place] [address] [place] MCH (RBC) [Entitic mass] 29.5 pg Normal 26.0-34.0 [facility] [place] Comment on above: Order Comment: Speci men Type: BLOOD SPECIMENOrdering Facility: [facility] Address: [address] [place] [address] Performed By: #### 5 8410-2 ####[facility] LABIA [id number] [place] [address] [place] MCHC (RBC) [Mass/Vol] 32.3 g/dL Normal 30.5-36.0 [facility] Comment on above: Order Comment: Speci men Type: BLOOD SPECIMENOrdering Facility: [facility] Address: [address] [place] [address] Performed By: #### 5 8410-2 ####[facility] LABIA [id number] [place] [address] [place] MCV (RBC) [Entitic vol] 91.1 fL Normal 80.0-100.0 [facility] Comment on above: Order Comment: Speci men Type: BLOOD SPECIMENOrdering Facility: [facility] Address: [address] [place] [address] Performed By: #### 5 8410-2 ####[facility] LABCLIA [id number] [place] [address] [place] Nucleated RBC (Bld) [#/Vol] 10*3/uL Normal <0.01 [facility] [place] Comment on above: Order Comment: Speci men Type: BLOOD SPECIMENOrdering Facility: [facility] Address: [address] [place] [address] Performed By: #### 5 8410-2 ####[facility] LABIA [id number] [place] [address] [place] Platelet mean volume (Bld) [Entitic vol] 9.1 fL Normal 9.0-12.7 [facility] [place] Comment on above: Order Comment: Speci men Type: BLOOD SPECIMENOrdering Facility: [facility] Address: [address] [place] [address] Performed By: #### 5 8410-2 ####[facility] LABIA [id number] [place] [address] [place] Platelets (Bld) [#/Vol] 323 10*3/uL Normal 150-400 [facility] [place] Comment on above: Order Comment: Speci men Type: BLOOD SPECIMENOrdering Facility: [facility] Address: [address] [place] [address] Performed By: #### 5 8410-2 ####[facility] LABIA [id number] [place] [address] [place] RBC (Bld) [#/Vol] 4.04 10*6/uL Low 4.20-6.00 [facility] Comment on above: Order Comment: Speci men Type: BLOOD SPECIMENOrdering Facility: [facility] Address: [address] [place], [place] [address] Performed By: #### 5 8410-2 ####[facility] LABCLIA [id number] [address] [address] [place] WBC (Bld) [#/Vol] 12.36 10*3/uL High 3.70-11.00 [facility] Comment on above: Order Comment: Speci men Type: BLOOD SPECIMENOrdering Facility: [facility] Address: [address] [place] [address] Performed By: #### 5 8410-2 ####[facility] LABIA [id number] [place] [address] [place] Comprehensive metabolic 2000 panelon 06-22-2024 Albumin [Mass/Vol] 3.3 g/dL Low 3.9-4.9 [facility] Comment on above: Order Comment: Speci men Type: BLOOD SPECIMENOrdering Facility: [facility] Address: [address] [place] [address] Performed By: #### 2 4323-8, 57406-2, 2776-1 ####[facility] LABIA [id number] [place] [address] [place] ALP [Catalytic activity/Vol] 84 U/L Normal 38-113 [facility] [place] Comment on above: Order Comment: Speci men Type: BLOOD SPECIMENOrdering Facility: [facility] Address: [address] [place] [address] Performed By: #### 2 4323-8, 15280-3, 2776-1 ####[facility] LABIA [id number] [place] [id number] [place] ALT [Catalytic activity/Vol] 53 U/L Normal 10-54 [facility] [place] Comment on above: Order Comment: Speci men Type: BLOOD SPECIMENOrdering Facility: [facility] Address: [address] [place] [address] Performed By: #### 2 4323-8, 52590-1, 2776-06 ####[facility] LABCLIA [id number] [address] [address] [place] Anion gap [Moles/Vol] 7 mmol/L Low 8-15 [facility] Comment on above: Order Comment: Speci men Type: BLOOD SPECIMENOrdering Facility: [facility] Address: [address] [place] [address] Performed By: #### 2 4323-8, , 2776-06 ####[facility] LABCLIA [id number] [place] [address] [place] AST [Catalytic activity/Vol] 19 U/L Normal 14-40 [facility] [place] Comment on above: Order Comment: Speci men Type: BLOOD SPECIMENOrdering Facility: [facility] Address: [address] [place] [address] Performed By: #### 2 4323-8, , 2776-06 ####[facility] LABCLIA [id number] [place] [id number] [place] Bilirubin [Mass/Vol] 0.5 mg/dL Normal 0.2-1.3 [facility] Comment on above: Order Comment: Speci men Type: BLOOD SPECIMENOrdering Facility: [facility] Address: [address] [place] [address] Performed By: #### 2 4323-8, , 2776-06 ####[facility] LABCLIA [id number] [address] [address] [place] Calcium [Mass/Vol] 9.2 mg/dL Normal 8.5-10.2 [facility] Comment on above: Order Comment: Speci men Type: BLOOD SPECIMENOrdering Facility: [facility] Address: [address] [place] [address] Performed By: #### 2 4323-8, , 2776-06 ####[facility] LABIA [id number] [address] [address] [place] Chloride [Moles/Vol] 101 mmol/L Normal 98-107 [facility] Comment on above: Order Comment: Speci men Type: BLOOD SPECIMENOrdering Facility: [facility] Address: [address] [place] [address] Performed By: #### 2 4323-8, 00060-1, 277-1 ####[facility] [id number] [place] [id number] [place] CO2 [Moles/Vol] 28 mmol/L Normal 22-30 [facility] [place] Comment on above: Order Comment: Speci men Type: BLOOD SPECIMENOrdering Facility: [facility] Address: [address] [place] [address] Performed By: #### 2 4323-8, , 1 ####[facility] [id number] [place] [address] [place] Creatinine [Mass/Vol] 0.81 mg/dL Normal 0.73-1.22 [facility] Comment on above: Order Comment: Speci men Type: BLOOD SPECIMENOrdering Facility: [facility] Address: [address] [place] [address] Performed By: #### 2 4323-8, 16688-4, 2771 ####[facility] [id number] [place] [id number] [place] Creatinine and Glomerular filtration rate.predicted panel (S/P/Bld) 94 mL/min/1.73m??? Normal >=60 [facility] [place] Comment on above: Order Comment: Speci men Type: BLOOD SPECIMENOrdering Facility: [facility] Address: [address] [place] [address] Result Comment: Stephanie mated Glomerular Filtration Rate (eGFR) is calculated using the 2020 CKD-EPI creatinine equation. This equation utilizes serum creatinine, sex, and age as parameters. The creatinine assay has traceable calibration to isotope dilution-mass spectrometry. Refer to KDIGO guidelines for clinical interpretation. In patients with unstable renal function, e.g. those with acute kidney injury, the eGFR may not accurately reflect actual GFR. Performed By: #### 2 4323-8, , 2776-06 ####[facility] LABCLIA [id number] [address] [address] [place] Glucose [Mass/Vol] 83 mg/dL Normal 74-99 [facility] Comment on above: Order Comment: Allegra donis Type: BLOOD SPECIMENOrdering Facility: [facility] Address: [address] [place] [address] Result Comment: The [place] [employer] (ADA) provides guidance for cutoff values for fasting glucose and random glucose. The ADA defines fasting as no caloric intake for at least 8 hours. Fasting plasma glucose results between 100 to 125 mg/dL indicate increased risk for diabetes (prediabetes).Fasting plasma glucose results greater than or equal to 126 mg/dL meet the criteria for diagnosis of diabetes. In the absence of unequivocal hyperglycemia, results should be confirmed by repeat testing. In a patient with classic symptoms of hyperglycemia or hyperglycemic crisis, random plasma glucose results greater than or equal to 200 mg/dL meet the criteria for diagnosis of diabetes.Reference: Standards of Medical Care in Diabetes 2016, [place] [employer]. Diabetes Care. 2016.39(Suppl 1). Performed By: #### 2 4323-8, , 2776-06 ####[facility] LABCLIA [id number] [place] [id number] [place] Potassium [Moles/Vol] 4.5 mmol/L Normal 3.7-5.1 [facility] Comment on above: Order Comment: Allegra donis Type: BLOOD SPECIMENOrdering Facility: [facility] Address: [address] [place] [id number] Performed By: #### 2 4323-8, , 2776-06 ####[facility] LABCLIA [id number] [place] [address] [place] Protein [Mass/Vol] 5.4 g/dL Low 6.3-8.0 [facility] Comment on above: Order Comment: Speci men Type: BLOOD SPECIMENOrdering Facility: [facility] Address: [address] [place] [address] Performed By: #### 2 4323-8, 18027-1, 2776-1 ####[facility] LABCLIA [id number] [place] [address] [place] Sodium [Moles/Vol] 136 mmol/L Normal 136-144 [facility] Comment on above: Order Comment: Speci men Type: BLOOD SPECIMENOrdering Facility: [facility] Address: [address] [place] [address] Performed By: #### 2 4323-8, , 2776-06 ####[facility] LABCLIA [id number] [place] [address] [place] Urea nitrogen [Mass/Vol] 26 mg/dL High 9-24 [facility] [place] Comment on above: Order Comment: Speci men Type: BLOOD SPECIMENOrdering Facility: [facility] Address: [address] [place] [address] Performed By: #### 2 4323-8, , 2776- ####[facility] LABIA [id number] [place] [id number] [place] Magnesium SerPl-mCncon 06-22 Magnesium [Mass/Vol] 2.1 mg/dL Normal 1.7-2.3 [facility] Comment on above: Order Comment: Speci men Type: BLOOD SPECIMENOrdering Facility: [facility] Address: [address] [place] [address] Performed By: #### 2 4323-8, 76989-9, 2776-1 ####[facility] LABCLIA [id number] [place] [id number] [place] PT EDon 06-22-2024 PT ED Normal [facility] Phosphate SerPl-mCncon 06-22 Phosphate [Mass/Vol] 3.4 mg/dL Normal 2.7-4.8 [facility] Comment on above: Order Comment: Allegra donis Type: BLOOD SPECIMENOrdering Facility: [facility] Address: [address] [place] [address] Performed By: #### 2 4323-8, 69624-4, 2777-1 ####[facility] LABCLIA [id number] [address] [place] THERAPY NTon 06-22-2024 THERAPY NT Normal [facility] THERAPY NT Normal [facility] Tacrolimus Bld-mCncon 2024 Tacrolimus (Bld) [Mass/Vol] 2.7 ng/mL Low 5.0-20.0 [facility] Comment on above: Order Comment: Allegra donis Type: BLOOD SPECIMENOrdering Facility: [facility] Address: [address] [place] [address] Result Comment: Noreen vidualized target levels for [...] Alinity i. Performed By: #### 1 1253-2 ####[facility] LABCLIA [id number] [place] [address] [place] CASE MANAGEMon 06-21-2024 CASE MANAGEM Normal [facility] CBC panel Auto (Bld)on 06-21 Erythrocyte distribution width (RBC) [Ratio] 14.4 % Normal 11.5-15.0 [facility] Comment on above: Order Comment: Allegra donis Type: BLOOD SPECIMENOrdering Facility: [facility] Address: [address] [place], [place] [address] Performed By: #### 5 8410-2 ####[facility] LABCLIA [id number] [place] [address] [place] Hematocrit (Bld) [Volume fraction] 34.5 % Low 39.0-51.0 [facility] Comment on above: Order Comment: Speci men Type: BLOOD SPECIMENOrdering Facility: [facility] Address: [address] [place] [address] Performed By: #### 5 8410-2 ####[facility] LABIA [id number] [place] [address] [place] Hemoglobin (Bld) [Mass/Vol] 11.5 g/dL Low 13.0-17.0 [facility] Comment on above: Order Comment: Speci men Type: BLOOD SPECIMENOrdering Facility: [facility] Address: [address] [place] [address] Performed By: #### 5 8410-2 ####[facility] LABIA [id number] [place] [address] [place] MCH (RBC) [Entitic mass] 30.4 pg Normal 26.0-34.0 [facility] Comment on above: Order Comment: Speci men Type: BLOOD SPECIMENOrdering Facility: [facility] Address: [address] [place] [address] Performed By: #### 5 8410-2 ####[facility] LABIA [id number] [place] [address] [place] MCHC (RBC) [Mass/Vol] 33.3 g/dL Normal 30.5-36.0 [facility] Comment on above: Order Comment: Speci men Type: BLOOD SPECIMENOrdering Facility: [facility] Address: [address] [place] [address] Performed By: #### 5 8410-2 ####[facility] LABCLIA [id number] [place] [address] [place] MCV (RBC) [Entitic vol] 91.3 fL Normal 80.0-100.0 [facility] Comment on above: Order Comment: Speci men Type: BLOOD SPECIMENOrdering Facility: [facility] Address: [address] [place] [address] Performed By: #### 5 8410-2 ####[facility] LABIA [id number] [place] [address] [place] Nucleated RBC (Bld) [#/Vol] 10*3/uL Normal <0.01 [facility] Comment on above: Order Comment: Speci men Type: BLOOD SPECIMENOrdering Facility: [facility] Address: [address] [place] [address] Performed By: #### 5 8410-2 ####[facility] LABIA [id number] [place] [address] [place] Platelet mean volume (Bld) [Entitic vol] 9.3 fL Normal 9.0-12.7 [facility] [place] Comment on above: Order Comment: Speci men Type: BLOOD SPECIMENOrdering Facility: [facility] Address: [address] [place] [address] Performed By: #### 5 8410-2 ####[facility] LABIA [id number] [place] [address] [place] Platelets (Bld) [#/Vol] 264 10*3/uL Normal 150-400 [facility] Comment on above: Order Comment: Speci men Type: BLOOD SPECIMENOrdering Facility: [facility] Address: [address] [place] [address] Performed By: #### 5 8410-2 ####[facility] LABCLIA [id number] [place] [address] [place] RBC (Bld) [#/Vol] 3.78 10*6/uL Low 4.20-6.00 [facility] Comment on above: Order Comment: Speci men Type: BLOOD SPECIMENOrdering Facility: [facility] Address: [address] [place] [address] Performed By: #### 5 8410-2 ####[facility] LABCLIA [id number] [address] [address] [place] WBC (Bld) [#/Vol] 12.44 10*3/uL High 3.70-11.00 [facility] Comment on above: Order Comment: Speci men Type: BLOOD SPECIMENOrdering Facility: [facility] Address: [address] [place] [address] Performed By: #### 5 8410-2 ####[facility] LABCLIA [id number] [place] [address] [place] CONSULT PROGon 06-21-2024 CONSULT PROG Normal [facility] Comprehensive metabolic 2000 panelon 06-21-2024 Albumin [Mass/Vol] 3.4 g/dL Low 3.9-4.9 [facility] Comment on above: Order Comment: Speci men Type: BLOOD SPECIMENOrdering Facility: [facility] Address: [address] [place] [address] Performed By: #### 2 4323-8, , 2776-06 ####[facility] LABCLIA [id number] [place] [address] [place] ALP [Catalytic activity/Vol] 77 U/L Normal 38-113 [facility] Comment on above: Order Comment: Speci men Type: BLOOD SPECIMENOrdering Facility: [facility] Address: [address] [place] [address] Performed By: #### 2 4323-8, , 2776- ####[facility] LABCLIA [id number] [place] [id number] [place] ALT [Catalytic activity/Vol] 59 U/L High 10-54 [facility] Comment on above: Order Comment: Speci men Type: BLOOD SPECIMENOrdering Facility: [facility] Address: [address] [place] [address] Performed By: #### 2 4323-8, , 2776-06 ####[facility] LABCLIA [id number] [place] [id number] [place] Anion gap [Moles/Vol] 8 mmol/L Normal 8-15 [facility] Comment on above: Order Comment: Speci men Type: BLOOD SPECIMENOrdering Facility: [facility] Address: [address] [place] [address] Performed By: #### 2 4323-8, , 2776-06 ####[facility]CLIA [id number] [place] [address] [place] AST [Catalytic activity/Vol] 22 U/L Normal 14-40 [facility] Comment on above: Order Comment: Speci men Type: BLOOD SPECIMENOrdering Facility: [facility] Address: [address] [place] [address] Performed By: #### 2 4323-8, , 2776-06 ####[facility]CLIA [id number] [place] [address] [place] Bilirubin [Mass/Vol] 0.3 mg/dL Normal 0.2-1.3 [facility] Comment on above: Order Comment: Speci men Type: BLOOD SPECIMENOrdering Facility: [facility] Address: [address] [place] [address] Performed By: #### 2 4323-8, , 2776-06 ####[facility] LABCLIA [id number] [place] [id number] [place] Calcium [Mass/Vol] 8.9 mg/dL Normal 8.5-10.2 [facility] Comment on above: Order Comment: Speci men Type: BLOOD SPECIMENOrdering Facility: [facility] Address: [address] [place] [address] Performed By: #### 2 4323-8, 45019-2, 2776-06 ####[facility] LABCLIA [id number] [place] [address] [place] Chloride [Moles/Vol] 100 mmol/L Normal 98-107 [facility] Comment on above: Order Comment: Speci men Type: BLOOD SPECIMENOrdering Facility: [facility] Address: [address] [place] [address] Performed By: #### 2 4323-8, , 2776-06 ####[facility]CLIA [id number] [place] [address] [place] CO2 [Moles/Vol] 29 mmol/L Normal 22-30 [facility] Comment on above: Order Comment: Speci men Type: BLOOD SPECIMENOrdering Facility: [facility] Address: [address] [place] [address] Performed By: #### 2 4323-8, 62914-5, 2776-06 ####[facility]CLIA [id number] [place] [address] [place] Creatinine [Mass/Vol] 0.62 mg/dL Low 0.73-1.22 [facility] Comment on above: Order Comment: Speci men Type: BLOOD SPECIMENOrdering Facility: [facility] Address: [address] [place] [address] Performed By: #### 2 4323-8, 45250-0, 2776-06 ####[facility]CL[facility] [id number] [place] [address] [place] Creatinine and Glomerular filtration rate.predicted panel (S/P/Bld) 102 mL/min/1.73m??? Normal >=60 [facility] Comment on above: Order Comment: Speci men Type: BLOOD SPECIMENOrdering Facility: [facility] Address: [address] [place] [address] Result Comment: Stephanie mated Glomerular Filtration Rate (eGFR) is calculated using the 2020 CKD-EPI creatinine equation. This equation utilizes serum creatinine, sex, and age as parameters. The creatinine assay has traceable calibration to isotope dilution-mass spectrometry. Refer to KDIGO guidelines for clinical interpretation. In patients with unstable renal function, e.g. those with acute kidney injury, the eGFR may not accurately reflect actual GFR. Performed By: #### 2 4323-8, , 2776-06 ####[facility]CL[facility] [id number] [place] [address] [place] Glucose [Mass/Vol] 95 mg/dL Normal 74-99 [facility] Comment on above: Order Comment: Speci men Type: BLOOD SPECIMENOrdering Facility: [facility] Address: [address] [place] [address] Result Comment: The [place] [employer] (ADA) provides guidance for cutoff values for fasting glucose and random glucose. The ADA defines fasting as no caloric intake for at least 8 hours. Fasting plasma glucose results between 100 to 125 mg/dL indicate increased risk for diabetes (prediabetes).Fasting plasma glucose results greater than or equal to 126 mg/dL meet the criteria for diagnosis of diabetes. In the absence of unequivocal hyperglycemia, results should be confirmed by repeat testing. In a patient with classic symptoms of hyperglycemia or hyperglycemic crisis, random plasma glucose results greater than or equal to 200 mg/dL meet the criteria for diagnosis of diabetes.Reference: Standards of Medical Care in Diabetes 2016, [place] [employer]. Diabetes Care. 2016.39(Suppl 1). Performed By: #### 2 4323-8, , 2776-06 ####[facility]CLIA [id number] [place] [id number] [place] Potassium [Moles/Vol] 4.5 mmol/L Normal 3.7-5.1 [facility] Comment on above: Order Comment: Speci men Type: BLOOD SPECIMENOrdering Facility: [facility] Address: [address] [place] [address] Performed By: #### 2 4323-8, , 2776-06 ####[facility]CLIA [id number] [place] [id number] [place] Protein [Mass/Vol] 5.1 g/dL Low 6.3-8.0 [facility] Comment on above: Order Comment: Speci men Type: BLOOD SPECIMENOrdering Facility: [facility] Address: [address] [place] [address] Performed By: #### 2 4323-8, , 2776-06 ####[facility] LABIA [id number] [place] [address] [place] Sodium [Moles/Vol] 137 mmol/L Normal 136-144 [facility] Comment on above: Order Comment: Speci men Type: BLOOD SPECIMENOrdering Facility: [facility] Address: [address] [place] [address] Performed By: #### 2 4323-8, , 2776-06 ####[facility] LABIA [id number] [place] [address] [place] Urea nitrogen [Mass/Vol] 26 mg/dL High 9-24 [facility] Comment on above: Order Comment: Speci men Type: BLOOD SPECIMENOrdering Facility: [facility] Address: [address] [place] [address] Performed By: #### 2 4323-8, , 2776-06 ####[facility] LABIA [id number] [address] [address] [place] Magnesium SerPl-mCncon 06-21 Magnesium [Mass/Vol] 1.9 mg/dL Normal 1.7-2.3 [facility] Comment on above: Order Comment: Speci men Type: BLOOD SPECIMENOrdering Facility: [facility] Address: [address] [place] [address] Performed By: #### 2 4323-8, , 2777- ####[facility] LABCLIA [id number] [place] [address] [place] Phosphate SerPl-mCncon 06-21 Phosphate [Mass/Vol] 3.0 mg/dL Normal 2.7-4.8 [facility] Comment on above: Order Comment: Speci men Type: BLOOD SPECIMENOrdering Facility: [facility] Address: [address] [place] [address] Performed By: #### 2 4323-8, 86816-9, 2777-1 ####[facility] LABCLIA [id number] [address] [place] [facility] TYPE + SCREENon 06-21-2024 ABO A Normal [facility] Comment on above: Order Comment: Speci men Type: BLOOD SPECIMENOrdering Facility: [facility] Address: [address] [place] [address] Performed By: #### T SCR ####CC MAIN BLOOD BANKCLIA [id number] [place] [address] [place] Rh Nom (Bld) Positive Normal [facility] Comment on above: Order Comment: Speci men Type: BLOOD SPECIMENOrdering Facility: [facility] Address: [address] [place] [address] Performed By: #### T SCR ####CC MAIN BLOOD BANKCLIA [id number] [place] [address] [place] TYPE AND SCREEN EXPIRATION 06/24/2024 23:59 Normal [facility] [place] Comment on above: Order Comment: Speci men Type: BLOOD SPECIMENOrdering Facility: [facility] Address: [address] [place] [address] Performed By: #### T SCR ####CC MAIN BLOOD BANKCLIA [id number] [place] [address] [place] Tacrolimus Bld-mCncon 2024 Tacrolimus (Bld) [Mass/Vol] 4.2 ng/mL Low 5.0-20.0 [facility] Comment on above: Order Comment: Allegra donis Type: BLOOD SPECIMENOrdering Facility: [facility] Address: [address] [place] [address] Result Comment: Noreen vidualized target levels for [...] situation. Test performed by chemiluminescent immunoassay using [employer] i. Performed By: #### 1 1253-2 ####[facility] LABCLIA [id number] [place] [address] [place] CASE MANAGEMon 06-20-2024 CASE MANAGEM Normal [facility] CBC panel Auto (Bld)on 06-20 Erythrocyte distribution width (RBC) [Ratio] 13.8 % Normal 11.5-15.0 [facility] Comment on above: Order Comment: Allegra donis Type: BLOOD SPECIMENOrdering Facility: [facility] Address: [address] [place] [address] Performed By: #### 5 8410-2 ####[facility] LABCLIA [id number] [place] [address] [place] Hematocrit (Bld) [Volume fraction] 34.9 % Low 39.0-51.0 [facility] Comment on above: Order Comment: Allegra donis Type: BLOOD SPECIMENOrdering Facility: [facility] Address: [address] [id number] Performed By: #### 5 8410-2 ####[facility] LABCLIA [id number] [place] [address] [place] Hemoglobin (Bld) [Mass/Vol] 11.4 g/dL Low 13.0-17.0 [facility] Comment on above: Order Comment: Speci men Type: BLOOD SPECIMENOrdering Facility: [facility] Address: [address] [place] [address] Performed By: #### 5 8410-2 ####[facility] LABIA [id number] [place] [address] [place] MCH (RBC) [Entitic mass] 30.3 pg Normal 26.0-34.0 [facility] Comment on above: Order Comment: Speci men Type: BLOOD SPECIMENOrdering Facility: [facility] Address: [address] [place] [address] Performed By: #### 5 8410-2 ####[facility] LABIA [id number] [place] [address] [place] MCHC (RBC) [Mass/Vol] 32.7 g/dL Normal 30.5-36.0 [facility] Comment on above: Order Comment: Speci men Type: BLOOD SPECIMENOrdering Facility: [facility] Address: [address] [place] [address] Performed By: #### 5 8410-2 ####[facility] LABIA [id number] [place] [address] [place] MCV (RBC) [Entitic vol] 92.8 fL Normal 80.0-100.0 [facility] Comment on above: Order Comment: Speci men Type: BLOOD SPECIMENOrdering Facility: [facility] Address: [address] [place] [address] Performed By: #### 5 8410-2 ####[facility] LABIA [id number] [place] [address] [place] Nucleated RBC (Bld) [#/Vol] 10*3/uL Normal <0.01 [facility] [place] Comment on above: Order Comment: Speci men Type: BLOOD SPECIMENOrdering Facility: [facility] Address: [address] [place] [address] Performed By: #### 5 8410-2 ####[facility] LABCLIA [id number] [facility] [place] [address] [place] Platelet mean volume (Bld) [Entitic vol] 9.3 fL Normal 9.0-12.7 [facility] Comment on above: Order Comment: Speci men Type: BLOOD SPECIMENOrdering Facility: [facility] Address: [address] [place] [address] Performed By: #### 5 8410-2 ####[facility] LABCLIA [id number] [place] [address] [place] Platelets (Bld) [#/Vol] 268 10*3/uL Normal 150-400 [facility] Comment on above: Order Comment: Speci men Type: BLOOD SPECIMENOrdering Facility: [facility] Address: [address] [place] [address] Performed By: #### 5 8410-2 ####[facility] LABIA [id number] [place] [address] [place] RBC (Bld) [#/Vol] 3.76 10*6/uL Low 4.20-6.00 [facility] Comment on above: Order Comment: Speci men Type: BLOOD SPECIMENOrdering Facility: [facility] Address: [address] [place] [address] Performed By: #### 5 8410-2 ####[facility] LABCLIA [id number] [facility] [place] [id number] [place] WBC (Bld) [#/Vol] 13.43 10*3/uL High 3.70-11.00 [facility] Comment on above: Order Comment: Speci men Type: BLOOD SPECIMENOrdering Facility: [facility] Address: [address] [place] [address] Performed By: #### 5 8410-2 ####[facility] LABCLIA [id number] [address] [address] [place] CNPNon 06-20-2024 CNPN Normal [facility] CONSULTon 06-20-2024 CONSULT Normal [facility] Comprehensive metabolic 2000 panelon 06-20-2024 Albumin [Mass/Vol] 3.2 g/dL Low 3.9-4.9 [facility] Comment on above: Order Comment: Speci men Type: BLOOD SPECIMENOrdering Facility: [facility] Address: [address] [place] [address] Performed By: #### 2 4323-8, , 2776-06 ####[facility] LABCLIA [id number] [place] [address] [place] ALP [Catalytic activity/Vol] 75 U/L Normal 38-113 [facility] Comment on above: Order Comment: Speci men Type: BLOOD SPECIMENOrdering Facility: [facility] Address: [address] [place] [address] Performed By: #### 2 4323-8, , 2776-06 ####[facility] LABCLIA [id number] [place] [address] [place] ALT [Catalytic activity/Vol] 65 U/L High 10-54 [facility] Comment on above: Order Comment: Speci men Type: BLOOD SPECIMENOrdering Facility: [facility] Address: [address] [place] [address] Performed By: #### 2 4323-8, , 2776-06 ####[facility] LABCLIA [id number] [address] [address] [place] Anion gap [Moles/Vol] 6 mmol/L Low 8-15 [facility] Comment on above: Order Comment: Speci men Type: BLOOD SPECIMENOrdering Facility: [facility] Address: [address] [place] [address] Performed By: #### 2 4323-8, , 2777-1 ####[facility] LABCLIA [id number] [address] [address] [place] AST [Catalytic activity/Vol] 27 U/L Normal 14-40 [facility] Comment on above: Order Comment: Speci men Type: BLOOD SPECIMENOrdering Facility: [facility] Address: [address] [place], [place] [address] Performed By: #### 2 4323-8, , 2776-06 ####[facility] LABCLIA [id number] [address] [address] [place] Bilirubin [Mass/Vol] 0.3 mg/dL Normal 0.2-1.3 [facility] Comment on above: Order Comment: Speci men Type: BLOOD SPECIMENOrdering Facility: [facility] Address: [address] [place] [address] Performed By: #### 2 4323-8, , 2776-06 ####[facility] LABIA [id number] [place] [address] [place] Calcium [Mass/Vol] 8.4 mg/dL Low 8.5-10.2 [facility] Comment on above: Order Comment: Speci men Type: BLOOD SPECIMENOrdering Facility: [facility] Address: [address] [place], [place] [address] Performed By: #### 2 4323-8, , 2776-06 ####[facility] LABIA [id number] [place] [id number] [place] Chloride [Moles/Vol] 103 mmol/L Normal 98-107 [facility] Comment on above: Order Comment: Speci men Type: BLOOD SPECIMENOrdering Facility: [facility] Address: [address] [place] [address] Performed By: #### 2 4323-8, 28572-9, 2776-06 ####[facility] LABCLIA [id number] [place] [address] [place] CO2 [Moles/Vol] 30 mmol/L Normal 22-30 [facility] Comment on above: Order Comment: Speci jewels Type: BLOOD SPECIMENOrdering Facility: [facility] Address: [address] [place] [address] Performed By: #### 2 4323-8, 64904-1, 2776-06 ####[facility] LABCLIA [id number] [place] [address] [place] Creatinine [Mass/Vol] 0.51 mg/dL Low 0.73-1.22 [facility] Comment on above: Order Comment: Speci men Type: BLOOD SPECIMENOrdering Facility: [facility] Address: [address] [place] [address] Performed By: #### 2 4323-8, , 2776-06 ####[facility] LABCLIA [id number] [place] [address] [place] Creatinine and Glomerular filtration rate.predicted panel (S/P/Bld) 108 mL/min/1.73m??? Normal >=60 [facility] Comment on above: Order Comment: Allegra donis Type: BLOOD SPECIMENOrdering Facility: [facility] Address: [address] [place] [address] Result Comment: Stephanie mated Glomerular Filtration Rate (eGFR) is calculated using the 2020 CKD-EPI creatinine equation. This equation utilizes serum creatinine, sex, and age as parameters. The creatinine assay has traceable calibration to isotope dilution-mass spectrometry. Refer to KDIGO guidelines for clinical interpretation. In patients with unstable renal function, e.g. those with acute kidney injury, the eGFR may not accurately reflect actual GFR. Performed By: #### 2 4323-8, 19274-6, 2776-06 ####[facility] LABCLIA [id number] [place] [id number] [place] Glucose [Mass/Vol] 133 mg/dL High 74-99 [facility] Comment on above: Order Comment: Speci men Type: BLOOD SPECIMENOrdering Facility: [facility] Address: [address] [place] [address] Result Comment: The [place] Diabetes [employer] (ADA) provides guidance for cutoff values for fasting glucose and random glucose. The ADA defines fasting as no caloric intake for at least 8 hours. Fasting plasma glucose results between 100 to 125 mg/dL indicate increased risk for diabetes (prediabetes).Fasting plasma glucose results greater than or equal to 126 mg/dL meet the criteria for diagnosis of diabetes. In the absence of unequivocal hyperglycemia, results should be confirmed by repeat testing. In a patient with classic symptoms of hyperglycemia or hyperglycemic crisis, random plasma glucose results greater than or equal to 200 mg/dL meet the criteria for diagnosis of diabetes.Reference: Standards of Medical Care in Diabetes 2016, [place] [employer]. Diabetes Care. 2016.39(Suppl 1). Performed By: #### 2 4323-8, 34659-0, 2776- ####[facility] LABCLIA [id number] [place] [address] [place] Potassium [Moles/Vol] 4.7 mmol/L Normal 3.7-5.1 [facility] Comment on above: Order Comment: Allegra donis Type: BLOOD SPECIMENOrdering Facility: [facility] Address: [address] [place] [address] Performed By: #### 2 4323-8, , 2776-06 ####[facility] LABCLIA [id number] [place] [id number] [place] Protein [Mass/Vol] 5.0 g/dL Low 6.3-8.0 [facility] Comment on above: Order Comment: Allegra men Type: BLOOD SPECIMENOrdering Facility: [facility] Address: [address] [id number] Performed By: #### 2 4323-8, , 2776-06 ####[facility] LABCLIA [id number] [place] [id number] [place] Sodium [Moles/Vol] 139 mmol/L Normal 136-144 [facility] Comment on above: Order Comment: Speci men Type: BLOOD SPECIMENOrdering Facility: [facility] Address: [address] [place] [address] Performed By: #### 2 4323-8, 68878-7, 2776-06 ####[facility] LABCLIA [id number] [place] [address] [place] Urea nitrogen [Mass/Vol] 27 mg/dL High 9-24 [facility] Comment on above: Order Comment: Speci men Type: BLOOD SPECIMENOrdering Facility: [facility] Address: [address] [place] [address] Performed By: #### 2 4323-8, , 2776-06 ####[facility] LABCLIA [id number] [place] [address] [place] Magnesium SerPl-mCncon 06-20 Magnesium [Mass/Vol] 2.0 mg/dL Normal 1.7-2.3 [facility] Comment on above: Order Comment: Speci men Type: BLOOD SPECIMENOrdering Facility: [facility] Address: [address] [place] [address] Performed By: #### 2 4323-8, , 2776-06 ####[facility] LABCLIA [id number] [place] [id number] [place] Phosphate SerPl-mCncon 06-20 Phosphate [Mass/Vol] 1.9 mg/dL Low 2.7-4.8 [facility] Comment on above: Order Comment: Speci men Type: BLOOD SPECIMENOrdering Facility: [facility] Address: [address] [place] [address] Performed By: #### 2 4323-8, , 2776-06 ####[facility] LABCLIA [id number] [place] [id number] [place] THERAPY NTon 06-20-2024 THERAPY NT Normal [facility] THERAPY NT Normal [facility] Tacrolimus Bld-mCncon 2024 Tacrolimus (Bld) [Mass/Vol] 3.8 ng/mL Low 5.0-20.0 [facility] Comment on above: Order Comment: Speci men Type: BLOOD SPECIMENOrdering Facility: [facility] Address: [address] [place] [address] Result Comment: Noreen vidualized target levels for [...] situation. Test performed by chemiluminescent immunoassay using [employer] i. Performed By: #### 1 1253-2 ####[facility] LABCLIA [id number] [place] [address] [place] Urinalysis complete panel (U )on 06-20-2024 Bacteria LM.HPF (Urine sed) [#/Area] Negative Normal Negative [facility] Comment on above: Order Comment: Speci men Type: URINE SPECIMENOrdering Facility: [facility] Address: [address] [place] [address] Performed By: #### 2 4356-8 ####[facility] LABCLIA [id number] [place] [address] [place] Bilirubin Ql (U) Negative Normal Negative [facility] Comment on above: Order Comment: Speci men Type: URINE SPECIMENOrdering Facility: [facility] Address: [address] [place] [address] Performed By: #### 2 4356-8 ####[facility] LABCLIA [id number] [place] [address] [place] Clarity (Unsp spec) Cloudy Abnormal Clear [facility] Comment on above: Order Comment: Speci men Type: URINE SPECIMENOrdering Facility: [facility] Address: [address] [place] [address] Performed By: #### 2 4356-8 ####[facility] LABCLIA [id number] [place] [address] [place] [facility] Color (U) Yellow Normal Yellow [facility] Comment on above: Order Comment: Speci men Type: URINE SPECIMENOrdering Facility: [facility] Address: [address] [place] [address] Performed By: #### 2 4356-8 ####[facility] LABCLIA [id number] [place] [address] [place] Epithelial cells LM.HPF (Urine sed) [#/Area] None Seen Normal [facility] Comment on above: Order Comment: Speci men Type: URINE SPECIMENOrdering Facility: [facility] Address: [address] [place] [address] Performed By: #### 2 4356-8 ####[facility] LABCLIA [id number] [place] [address] [place] [facility] Glucose Test strip (U) [Mass/Vol] Negative Normal Negative [facility] Comment on above: Order Comment: Speci men Type: URINE SPECIMENOrdering Facility: [facility] Address: [address] [place] [address] Performed By: #### 2 4356-8 ####[facility] LABCLIA [id number] [place] [address] [place] Hemoglobin Ql (U) Negative Normal Negative [facility] Comment on above: Order Comment: Speci men Type: URINE SPECIMENOrdering Facility: [facility] Address: [address] [place] [address] Performed By: #### 2 4356-8 ####[facility] LABCLIA [id number] [place] [address] [place] Hyaline casts (Urine sed) [#/Area] 0 /[LPF] Normal 0 /LPF [facility] Comment on above: Order Comment: Speci men Type: URINE SPECIMENOrdering Facility: [facility] Address: [address] [place] [address] Performed By: #### 2 4356-8 ####[facility] LABCLIA [id number] [place] [address] [place] Ketones Ql (U) Negative Normal Negative [facility] Comment on above: Order Comment: Speci men Type: URINE SPECIMENOrdering Facility: [facility] Address: [address] [place] [address] Performed By: #### 2 4356-8 ####[facility] LABCLIA [id number] [place] [address] [place] Leukocyte esterase Test strip Ql (U) Trace Abnormal Negative [facility] Comment on above: Order Comment: Speci men Type: URINE SPECIMENOrdering Facility: [facility] Address: [address] [place] [address] Performed By: #### 2 4356-8 ####[facility] LABCLIA [id number] [place] [address] [place] Nitrite Ql (U) Negative Normal Negative [facility] Comment on above: Order Comment: Speci men Type: URINE SPECIMENOrdering Facility: [facility] Address: [address] [place] [address] Performed By: #### 2 4356-8 ####[facility] LABCLIA [id number] [place] [address] [place] pH (U) 8.0 [pH] Normal <8.5 [facility] Comment on above: Order Comment: Speci men Type: URINE SPECIMENOrdering Facility: [facility] Address: [address] [place] [address] Performed By: #### 2 4356-8 ####[facility] LABCLIA [id number] [place] [address] [place] Protein (U) [Mass/Vol] Trace Abnormal Negative [facility] Comment on above: Order Comment: Speci men Type: URINE SPECIMENOrdering Facility: [facility] Address: [address] [place] [address] Performed By: #### 2 4356-8 ####[facility] LABIA [id number] [place] [address] [place] RBC LM.HPF (Urine sed) [#/Area] 3-5 /HPF Abnormal 0-2 /HPF [facility] Comment on above: Order Comment: Speci men Type: URINE SPECIMENOrdering Facility: [facility] Address: [address] [place] [address] Performed By: #### 2 4356-8 ####[facility] LABIA [id number] [place] [address] [place] Specific gravity (U) [Rel density] 1.019 Normal 1.005-1.030 [facility] Comment on above: Order Comment: Speci men Type: URINE SPECIMENOrdering Facility: [facility] Address: [address] [place] [address] Performed By: #### 2 4356-8 ####[facility] LABIA [id number] [place] [address] [place] Urobilinogen Ql (U) 0.2 EU/dL Normal 0.2-1.0 EU/dL [facility] Comment on above: Order Comment: Speci men Type: URINE SPECIMENOrdering Facility: [facility] Address: [address] [place] [address] Performed By: #### 2 4356-8 ####[facility] LABIA [id number] [place] [address] [place] WBC LM.HPF (Urine sed) [#/Area] 0-5 /HPF Normal 0-5 /HPF [facility] Comment on above: Order Comment: Speci men Type: URINE SPECIMENOrdering Facility: [facility] Address: [address] [place] [address] Performed By: #### 2 4356-8 ####[facility] LABCLIA [id number] [place] [address] [place] CBC panel Auto (Bld)on 06-19 Erythrocyte distribution width (RBC) [Ratio] 14.1 % Normal 11.5-15.0 [facility] Comment on above: Order Comment: Speci men Type: BLOOD SPECIMENOrdering Facility: [facility] Address: [address] [place] [address] Performed By: #### 5 8410-2 ####[facility] LABIA [id number] [address] [place] Hematocrit (Bld) [Volume fraction] 36.4 % Low 39.0-51.0 [facility] Comment on above: Order Comment: Speci men Type: BLOOD SPECIMENOrdering Facility: [facility] Address: [address] [place] [address] Performed By: #### 5 8410-2 ####[facility] LABIA [id number] [address] [place] Hemoglobin (Bld) [Mass/Vol] 11.7 g/dL Low 13.0-17.0 [facility] Comment on above: Order Comment: Speci men Type: BLOOD SPECIMENOrdering Facility: [facility] Address: [address] [place] [address] Performed By: #### 5 8410-2 ####[facility] LABIA [id number] [place] [address] [place] MCH (RBC) [Entitic mass] 30.0 pg Normal 26.0-34.0 [facility] Comment on above: Order Comment: Speci men Type: BLOOD SPECIMENOrdering Facility: [facility] Address: [address] [place] [address] Performed By: #### 5 8410-2 ####[facility] LABCLIA [id number] [place] [address] [place] MCHC (RBC) [Mass/Vol] 32.1 g/dL Normal 30.5-36.0 [facility] Comment on above: Order Comment: Speci men Type: BLOOD SPECIMENOrdering Facility: [facility] Address: [address] [place] [address] Performed By: #### 5 8410-2 ####[facility] LABCLIA [id number] [place] [address] [place] MCV (RBC) [Entitic vol] 93.3 fL Normal 80.0-100.0 [facility] Comment on above: Order Comment: Speci men Type: BLOOD SPECIMENOrdering Facility: [facility] Address: [address] [place] [address] Performed By: #### 5 8410-2 ####[facility] LABIA [id number] [place] [address] [place] Nucleated RBC (Bld) [#/Vol] 10*3/uL Normal <0.01 [facility] [facility] Comment on above: Order Comment: Speci men Type: BLOOD SPECIMENOrdering Facility: [facility] Address: [address] [place] [address] Performed By: #### 5 8410-2 ####[facility] LABCLIA [id number] [place] [address] [place] Platelet mean volume (Bld) [Entitic vol] 9.2 fL Normal 9.0-12.7 [facility] Comment on above: Order Comment: Speci men Type: BLOOD SPECIMENOrdering Facility: [facility] Address: [address] [place] [address] Performed By: #### 5 8410-2 ####[facility] LABCLIA [id number] [place] [address] [place] Platelets (Bld) [#/Vol] 282 10*3/uL Normal 150-400 [facility] Comment on above: Order Comment: Speci men Type: BLOOD SPECIMENOrdering Facility: [facility] Address: [address] [place] [address] Performed By: #### 5 8410-2 ####[facility] LABCLIA [id number] [place] [address] [place] RBC (Bld) [#/Vol] 3.90 10*6/uL Low 4.20-6.00 [facility] Comment on above: Order Comment: Speci men Type: BLOOD SPECIMENOrdering Facility: [facility] Address: [address] [place] [address] Performed By: #### 5 8410-2 ####[facility] LABCLIA [id number] [place] [address] [place] WBC (Bld) [#/Vol] 14.56 10*3/uL High 3.70-11.00 [facility] Comment on above: Order Comment: Speci men Type: BLOOD SPECIMENOrdering Facility: [facility] Address: [address] [place] [address] Performed By: #### 5 8410-2 ####[facility] LABCLIA [id number] [place] [address] [place] Comprehensive metabolic 2000 panelon 06-19-2024 Albumin [Mass/Vol] 2.9 g/dL Low 3.9-4.9 [facility] Comment on above: Order Comment: Speci men Type: BLOOD SPECIMENOrdering Facility: [facility] Address: [address] [place] [address] Performed By: #### 2 777-1, 16193-9, 31501-3 ####[facility] LABCLIA [id number] [id number] [address] [place] ALP [Catalytic activity/Vol] 75 U/L Normal 38-113 [facility] Comment on above: Order Comment: Speci men Type: BLOOD SPECIMENOrdering Facility: [facility] Address: [address] [place] [address] Performed By: #### 2 777-1, 81589-8, ####[facility] LABCLIA [id number] [place] [address] [place] ALT [Catalytic activity/Vol] 58 U/L High 10-54 [facility] Comment on above: Order Comment: Speci men Type: BLOOD SPECIMENOrdering Facility: [facility] Address: [address] [place] [address] Performed By: #### 2 777-1, , ####[facility] LABCLIA [id number] [place] [address] [place] Anion gap [Moles/Vol] 7 mmol/L Low 8-15 [facility] Comment on above: Order Comment: Speci men Type: BLOOD SPECIMENOrdering Facility: [facility] Address: [address] [place] [address] Performed By: #### 2 777-1, , ####[facility] LABCLIA [id number] [place] [address] [place] AST [Catalytic activity/Vol] 18 U/L Normal 14-40 [facility] Comment on above: Order Comment: Speci men Type: BLOOD SPECIMENOrdering Facility: [facility] Address: [address] [place] [address] Performed By: #### 2 777-1, , ####[facility] LABCLIA [id number] [address] [address] [place] Bilirubin [Mass/Vol] 0.2 mg/dL Normal 0.2-1.3 [facility] Comment on above: Order Comment: Speci men Type: BLOOD SPECIMENOrdering Facility: [facility] Address: [address] [place] [address] Performed By: #### 2 777-1, , ####[facility] LABCLIA [id number] [facility] [address] [address] [place] Calcium [Mass/Vol] 8.5 mg/dL Normal 8.5-10.2 [facility] Comment on above: Order Comment: Speci men Type: BLOOD SPECIMENOrdering Facility: [facility] Address: [address] [place] [address] Performed By: #### 2 777-1, , ####[facility] LABCLIA [id number] [place] [address] [place] Chloride [Moles/Vol] 102 mmol/L Normal 98-107 [facility] Comment on above: Order Comment: Speci men Type: BLOOD SPECIMENOrdering Facility: [facility] Address: [address] [place] [address] Performed By: #### 2 777-1, , ####[facility] LABCLIA [id number] [place] [id number] [place] CO2 [Moles/Vol] 30 mmol/L Normal 22-30 [facility] [place] Comment on above: Order Comment: Speci men Type: BLOOD SPECIMENOrdering Facility: [facility] Address: [address] [place] [address] Performed By: #### 2 777-1, , ####[facility] LABCLIA [id number] [facility] [address] [address] [place] Creatinine [Mass/Vol] 0.49 mg/dL Low 0.73-1.22 [facility] Comment on above: Order Comment: Speci men Type: BLOOD SPECIMENOrdering Facility: [facility] Address: [address] [place] [id number] Performed By: #### 2 777-1, 70612-7, ####[facility] LABCLIA [id number] [place] [address] [place] Creatinine and Glomerular filtration rate.predicted panel (S/P/Bld) 109 mL/min/1.73m??? Normal >=60 [facility] Comment on above: Order Comment: Allegra jewels Type: BLOOD SPECIMENOrdering Facility: [facility] Address: [address] [place] [address] Result Comment: Stephanie mated Glomerular Filtration Rate (eGFR) is calculated using the 2020 CKD-EPI creatinine equation. This equation utilizes serum creatinine, sex, and age as parameters. The creatinine assay has traceable calibration to isotope dilution-mass spectrometry. Refer to KDIGO guidelines for clinical interpretation. In patients with unstable renal function, e.g. those with acute kidney injury, the eGFR may not accurately reflect actual GFR. Performed By: #### 2 777-1, 42589-6, ####[facility] LABCLIA [id number] [place] [id number] [place] Glucose [Mass/Vol] 158 mg/dL High 74-99 [facility] Comment on above: Order Comment: Allegra jewels Type: BLOOD SPECIMENOrdering Facility: [facility] Address: [address] [place] [address] Result Comment: The [place] Diabetes [employer] (ADA) provides guidance for cutoff values for fasting glucose and random glucose. The ADA defines fasting as no caloric intake for at least 8 hours. Fasting plasma glucose results between 100 to 125 mg/dL indicate increased risk for diabetes (prediabetes).Fasting plasma glucose results greater than or equal to 126 mg/dL meet the criteria for diagnosis of diabetes. In the absence of unequivocal hyperglycemia, results should be confirmed by repeat testing. In a patient with classic symptoms of hyperglycemia or hyperglycemic crisis, random plasma glucose results greater than or equal to 200 mg/dL meet the criteria for diagnosis of diabetes.Reference: Standards of Medical Care in Diabetes 2016, [place] [employer]. Diabetes Care. 2016.39(Suppl 1). Performed By: #### 2 777-1, 54284-7, ####[facility] LABCLIA [id number] [address] [address] [place] Potassium [Moles/Vol] 4.4 mmol/L Normal 3.7-5.1 [facility] Comment on above: Order Comment: Speci men Type: BLOOD SPECIMENOrdering Facility: [facility] Address: [address] [place], [place] [address] Performed By: #### 2 777-1, 64325-2, ####[facility] LABCLIA [id number] [address] [address] [place] Protein [Mass/Vol] 5.0 g/dL Low 6.3-8.0 [facility] Comment on above: Order Comment: Speci men Type: BLOOD SPECIMENOrdering Facility: [facility] Address: [address] [place] [address] Performed By: #### 2 777-1, , ####[facility] LABIA [id number] [address] [address] [place] Sodium [Moles/Vol] 139 mmol/L Normal 136-144 [facility] Comment on above: Order Comment: Speci men Type: BLOOD SPECIMENOrdering Facility: [facility] Address: [address] [place] [address] Performed By: #### 2 777-1, 10799-4, ####[facility] LABCLIA [id number] [address] [address] [place] Urea nitrogen [Mass/Vol] 32 mg/dL High 9-24 [facility] Comment on above: Order Comment: Speci men Type: BLOOD SPECIMENOrdering Facility: [facility] Address: [address] [place] [address] Performed By: #### 2 777-1, 49391-0, ####[facility] LABCLIA [id number] [place] [id number] [place] Magnesium SerPl-ncon 06-19 Magnesium [Mass/Vol] 2.2 mg/dL Normal 1.7-2.3 [facility] Comment on above: Order Comment: Allegra donis Type: BLOOD SPECIMENOrdering Facility: [facility] Address: [address] [place] [address] Performed By: #### 2 777-1, 05997-4, ####[facility] LABCLIA [id number] [place] [address] [place] Phosphate SerPl-ncon 06-19 Phosphate [Mass/Vol] 2.0 mg/dL Low 2.7-4.8 [facility] Comment on above: Order Comment: Allegra donis Type: BLOOD SPECIMENOrdering Facility: [facility] Address: [address] [place] [address] Performed By: #### 2 777-1, 20346-2, ####[facility] LABIA [id number] [place] [address] [place] Tacrolimus Bld-mCncon 2024 Tacrolimus (Bld) [Mass/Vol] 5.3 ng/mL Normal 5.0-20.0 [facility] Comment on above: Order Comment: Allegra donis Type: BLOOD SPECIMENOrdering Facility: [facility] Address: [address] [place] [address] Result Comment: Noreen vidualized target levels for [...] situation. Test performed by chemiluminescent immunoassay using [employer] Alinity i. Performed By: #### 1 1253-2 ####[facility] LABCLIA [id number] [place] [address] [place] CBC panel Auto (Bld)on 06-18 Erythrocyte distribution width (RBC) [Ratio] 14.1 % Normal 11.5-15.0 [facility] Comment on above: Order Comment: Speci men Type: BLOOD SPECIMENOrdering Facility: [facility] Address: [address] [place] [address] Performed By: #### 5 8410-2 ####[facility] LABIA [id number] [place] [address] [place] Hematocrit (Bld) [Volume fraction] 38.9 % Low 39.0-51.0 [facility] Comment on above: Order Comment: Speci men Type: BLOOD SPECIMENOrdering Facility: [facility] Address: [address] [place] [address] Performed By: #### 5 8410-2 ####[facility] LABIA [id number] [place] [address] [place] Hemoglobin (Bld) [Mass/Vol] 12.7 g/dL Low 13.0-17.0 [facility] Comment on above: Order Comment: Speci men Type: BLOOD SPECIMENOrdering Facility: [facility] Address: [address] [place] [address] Performed By: #### 5 8410-2 ####[facility] LABCLIA [id number] [place] [address] [place] MCH (RBC) [Entitic mass] 29.5 pg Normal 26.0-34.0 [facility] Comment on above: Order Comment: Speci men Type: BLOOD SPECIMENOrdering Facility: [facility] Address: [address] [place] [address] Performed By: #### 5 8410-2 ####[facility] LABCLIA [id number] [place] [address] [place] MCHC (RBC) [Mass/Vol] 32.6 g/dL Normal 30.5-36.0 [facility] Comment on above: Order Comment: Speci men Type: BLOOD SPECIMENOrdering Facility: [facility] Address: [address] [place] [address] Performed By: #### 5 8410-2 ####[facility] LABIA [id number] [place] [address] [place] MCV (RBC) [Entitic vol] 90.3 fL Normal 80.0-100.0 [facility] Comment on above: Order Comment: Speci men Type: BLOOD SPECIMENOrdering Facility: [facility] Address: [address] [place] [address] Performed By: #### 5 8410-2 ####[facility] LABIA [id number] [place] [address] [place] Nucleated RBC (Bld) [#/Vol] 10*3/uL Normal <0.01 [facility] Comment on above: Order Comment: Speci men Type: BLOOD SPECIMENOrdering Facility: [facility] Address: [address] [place] [address] Performed By: #### 5 8410-2 ####[facility] LABIA [id number] [place] [address] [place] Platelet mean volume (Bld) [Entitic vol] 9.0 fL Normal 9.0-12.7 [facility] Comment on above: Order Comment: Speci men Type: BLOOD SPECIMENOrdering Facility: [facility] Address: [address] [place] [address] Performed By: #### 5 8410-2 ####[facility] LABIA [id number] [place] [address] [place] Platelets (Bld) [#/Vol] 337 10*3/uL Normal 150-400 [facility] Comment on above: Order Comment: Speci men Type: BLOOD SPECIMENOrdering Facility: [facility] Address: [address] [place] [address] Performed By: #### 5 8410-2 ####[facility] LABCLIA [id number] [place] [address] [place] RBC (Bld) [#/Vol] 4.31 10*6/uL Normal 4.20-6.00 [facility] Comment on above: Order Comment: Speci men Type: BLOOD SPECIMENOrdering Facility: [facility] Address: [address] [place] [address] Performed By: #### 5 8410-2 ####[facility] LABCLIA [id number] [place] [address] [place] WBC (Bld) [#/Vol] 15.56 10*3/uL High 3.70-11.00 [facility] Comment on above: Order Comment: Speci men Type: BLOOD SPECIMENOrdering Facility: [facility] Address: [address] [place] [address] Performed By: #### 5 8410-2 ####[facility] LABCLIA [id number] [place] [address] [place] Comprehensive metabolic 2000 panelon 06-18-2024 Albumin [Mass/Vol] 3.4 g/dL Low 3.9-4.9 [facility] Comment on above: Order Comment: Speci men Type: BLOOD SPECIMENOrdering Facility: [facility] Address: [address] [place] [address] Performed By: #### 1 9123-9, 27496-4, 2777-1 ####[facility] LABCLIA [id number] [place] [address] [place] ALP [Catalytic activity/Vol] 84 U/L Normal 38-113 [facility] Comment on above: Order Comment: Speci men Type: BLOOD SPECIMENOrdering Facility: [facility] Address: [address] [place] [address] Performed By: #### 1 9123-9, 70181-6, 2777- ####[facility] LABCLIA [id number] [place] [id number] [place] ALT [Catalytic activity/Vol] 81 U/L High 10-54 [facility] Comment on above: Order Comment: Speci men Type: BLOOD SPECIMENOrdering Facility: [facility] Address: [address] [place] [address] Performed By: #### 1 9123-9, 91165-4, 2777- ####[facility] LABCLIA [id number] [place] [address] [place] Anion gap [Moles/Vol] 9 mmol/L Normal 8-15 [facility] Comment on above: Order Comment: Speci men Type: BLOOD SPECIMENOrdering Facility: [facility] Address: [address] [place] [address] Performed By: #### 1 9123-9, 84380-1, 2777- ####[facility] LABIA [id number] [place] [address] [place] AST [Catalytic activity/Vol] 28 U/L Normal 14-40 [facility] Comment on above: Order Comment: Speci men Type: BLOOD SPECIMENOrdering Facility: [facility] Address: [address] [place] [address] Performed By: #### 1 9123-9, 48731-2, 2777- ####[facility] LABIA [id number] [place] [address] [place] Bilirubin [Mass/Vol] 0.3 mg/dL Normal 0.2-1.3 [facility] Comment on above: Order Comment: Speci men Type: BLOOD SPECIMENOrdering Facility: [facility] Address: [address] [place] [address] Performed By: #### 1 9123-9, 91502-6, 2777- ####[facility] LABCLIA [id number] [place] [address] [place] Calcium [Mass/Vol] 8.7 mg/dL Normal 8.5-10.2 [facility] Comment on above: Order Comment: Speci men Type: BLOOD SPECIMENOrdering Facility: [facility] Address: [address] [place] [address] Performed By: #### 1 9123-9, 15301-2, 2777- ####[facility] LABIA [id number] [place] [address] [place] Chloride [Moles/Vol] 101 mmol/L Normal 98-107 [facility] Comment on above: Order Comment: Speci men Type: BLOOD SPECIMENOrdering Facility: [facility] Address: [address] [place] [address] Performed By: #### 1 9123-9, 29520-2, 277- ####[facility] LABIA [id number] [place] [address] [place] CO2 [Moles/Vol] 30 mmol/L Normal 22-30 [facility] Comment on above: Order Comment: Speci men Type: BLOOD SPECIMENOrdering Facility: [facility] Address: [address] [place] [address] Performed By: #### 1 9123-9, 78464-6, 277- ####[facility] LABIA [id number] [place] [address] [place] Creatinine [Mass/Vol] 0.66 mg/dL Low 0.73-1.22 [facility] Comment on above: Order Comment: Speci men Type: BLOOD SPECIMENOrdering Facility: [facility] Address: [address] [place] [address] Performed By: #### 1 9123-9, 98649-0, 2777-1 ####[facility] LABIA [id number] [place] [address] [place] Creatinine and Glomerular filtration rate.predicted panel (S/P/Bld) 100 mL/min/1.73m??? Normal >=60 [facility] Comment on above: Order Comment: Allegra donis Type: BLOOD SPECIMENOrdering Facility: [facility] Address: [address] [place] [address] Result Comment: Stephanie mated Glomerular Filtration Rate (eGFR) is calculated using the 2020 CKD-EPI creatinine equation. This equation utilizes serum creatinine, sex, and age as parameters. The creatinine assay has traceable calibration to isotope dilution-mass spectrometry. Refer to KDIGO guidelines for clinical interpretation. In patients with unstable renal function, e.g. those with acute kidney injury, the eGFR may not accurately reflect actual GFR. Performed By: #### 1 9123-9, 72031-9, 2777- ####[facility] LABCLIA [id number] [place] [address] [place] Glucose [Mass/Vol] 148 mg/dL High 74-99 [facility] Comment on above: Order Comment: Allegra donis Type: BLOOD SPECIMENOrdering Facility: [facility] Address: [address] [place] [address] Result Comment: The [place] Diabetes [employer] (ADA) provides guidance for cutoff values for fasting glucose and random glucose. The ADA defines fasting as no caloric intake for at least 8 hours. Fasting plasma glucose results between 100 to 125 mg/dL indicate increased risk for diabetes (prediabetes).Fasting plasma glucose results greater than or equal to 126 mg/dL meet the criteria for diagnosis of diabetes. In the absence of unequivocal hyperglycemia, results should be confirmed by repeat testing. In a patient with classic symptoms of hyperglycemia or hyperglycemic crisis, random plasma glucose results greater than or equal to 200 mg/dL meet the criteria for diagnosis of diabetes.Reference: Standards of Medical Care in Diabetes 2016, [place] [employer]. Diabetes Care. 2016.39(Suppl 1). Performed By: #### 1 9123-9, , 2776-06 ####[facility] LABCLIA [id number] [address] [address] [place] Potassium [Moles/Vol] 4.0 mmol/L Normal 3.7-5.1 [facility] Comment on above: Order Comment: Speci men Type: BLOOD SPECIMENOrdering Facility: [facility] Address: [address] [place] [address] Performed By: #### 1 9123-9, , 2776-06 ####[facility] LABCLIA [id number] [address] [address] [place] Protein [Mass/Vol] 5.0 g/dL Low 6.3-8.0 [facility] Comment on above: Order Comment: Speci men Type: BLOOD SPECIMENOrdering Facility: [facility] Address: [address] [place] [address] Performed By: #### 1 9123-9, , 2776-06 ####[facility] LABCLIA [id number] [place] [address] [place] Sodium [Moles/Vol] 140 mmol/L Normal 136-144 [facility] Comment on above: Order Comment: Speci men Type: BLOOD SPECIMENOrdering Facility: [facility] Address: [address] [place], [place] [address] Performed By: #### 1 9123-9, , 2776-06 ####[facility] LABCLIA [id number] [address] [address] [place] Urea nitrogen [Mass/Vol] 41 mg/dL High 9-24 [facility] Comment on above: Order Comment: Speci men Type: BLOOD SPECIMENOrdering Facility: [facility] Address: [address] [place], [place] [address] Performed By: #### 1 9123-9, 82900-9, 2776-06 ####[facility] LABCLIA [id number] [place] [address] [place] Magnesium SerPl-mCncon 06-18 Magnesium [Mass/Vol] 2.0 mg/dL Normal 1.7-2.3 [facility] Comment on above: Order Comment: Speci men Type: BLOOD SPECIMENOrdering Facility: [facility] Address: [address] [place] [address] Performed By: #### 1 9123-9, 56245-5, 2777-1 ####[facility] LABCLIA [id number] [place] [address] [place] Phosphate SerPl-mCncon 06-18 Phosphate [Mass/Vol] 2.3 mg/dL Low 2.7-4.8 [facility] Comment on above: Order Comment: Speci men Type: BLOOD SPECIMENOrdering Facility: [facility] Address: [address] [place] [address] Performed By: #### 1 9123-9, 92812-9, 2777-1 ####[facility] LABCLIA [id number] [address] [place] TYPE + SCREENon 06-18-2024 ABO A Normal [facility] Comment on above: Order Comment: Speci men Type: BLOOD SPECIMENOrdering Facility: [facility] Address: [address] [place] [address] Performed By: #### T SCR ####[facility] BLOOD BANKCLIA [id number] [place] [address] [place] Rh Nom (Bld) Positive Normal [facility] Comment on above: Order Comment: Speci men Type: BLOOD SPECIMENOrdering Facility: [facility] Address: [address] [place] [address] Performed By: #### T SCR ####[facility] BLOOD BANKCLIA [id number] [place] [address] [place] TYPE AND SCREEN EXPIRATION 06/21/2024 23:59 Normal [facility] Comment on above: Order Comment: Speci men Type: BLOOD SPECIMENOrdering Facility: [facility] Address: [address] [place] [address] Performed By: #### T SCR ####[facility] BLOOD BANKCLIA [id number] [place] [address] [place] Tacrolimus Bld-mCncon 2024 Tacrolimus (Bld) [Mass/Vol] 4.6 ng/mL Low 5.0-20.0 [facility] Comment on above: Order Comment: Speci men Type: BLOOD SPECIMENOrdering Facility: [facility] Address: [address] [place] [address] Result Comment: Noreen vidualized target levels for [...] [employer] i. Performed By: #### 1 1253-2 ####[facility] LABCLIA [id number] [place] [address] [place] ALLIED HEALTHon 06-17-2024 ALLIED HEALTH Normal [facility] ARTERIAL BLOOD GASESon 06-17 Base excess Calc (Bld) [Moles/Vol] 7 mmol/L High 0-2 [facility] [facility] Comment on above: Order Comment: Speci men Type: ARTERIAL BLOOD SPECIMENOrdering Facility: [facility] Address: [address] [place] [address] Performed By: #### A LLBG ####[facility] LABIA [id number] [place] [address] [place] Body temperature 98.6 [degF] Normal [facility] Comment on above: Order Comment: Speci men Type: ARTERIAL BLOOD SPECIMENOrdering Facility: [facility] Address: [address] [place] [address] Performed By: #### A LLBG ####[facility] [id number] [place] [address] [place] Calcium.ionized (Bld) [Mass/Vol] 1.26 mmol/L Normal 1.08-1.30 [facility] Comment on above: Order Comment: Speci men Type: ARTERIAL BLOOD SPECIMENOrdering Facility: [facility] Address: [address] [place] [address] Performed By: #### A LLBG ####[facility] [id number] [place] [address] [place] Calcium.ionized adjusted to pH 7.4 (BldA) [Moles/Vol] 1.28 mmol/L Normal 1.08-1.30 [facility] Comment on above: Order Comment: Speci men Type: ARTERIAL BLOOD SPECIMENOrdering Facility: [facility] Address: [address] [place] [address] Performed By: #### A LLBG ####[facility] [id number] [place] [address] [place] Carboxyhemoglobin (BldA) [Mass fraction] 1.2 % Normal 0.0-2.0 [facility] Comment on above: Order Comment: Speci men Type: ARTERIAL BLOOD SPECIMENOrdering Facility: [facility] Address: [address] [place] [address] Result Comment: Carb oxyhemoglobin Reference Range for Smokers: 2.0-8.0% Performed By: #### A LLBG ####[facility] [id number] [place] [address] [place] CO2 (Bld) [Partial pressure] 49 mm Hg High 36-46 [facility] Comment on above: Order Comment: Speci men Type: ARTERIAL BLOOD SPECIMENOrdering Facility: [facility] Address: [address] [place] [address] Performed By: #### A LLBG ####[facility] LABCLIA [id number] [place] [address] [place] Glucose [Mass/Vol] 181 mg/dL High 60-105 [facility] Comment on above: Order Comment: Speci men Type: ARTERIAL BLOOD SPECIMENOrdering Facility: [facility] Address: [address] [place] [address] Performed By: #### A LLBG ####[facility] LABCLIA [id number] [place] [address] [place] HCO3 (Bld) [Moles/Vol] 32 mmol/L High 22-26 [facility] Comment on above: Order Comment: Speci men Type: ARTERIAL BLOOD SPECIMENOrdering Facility: [facility] Address: [address] [place] [address] Performed By: #### A LLBG ####[facility] LABCLIA [id number] [place] [address] [place] Hematocrit (Bld) [Volume fraction] 43.6 % Normal 39.0-51.0 [facility] Comment on above: Order Comment: Speci men Type: ARTERIAL BLOOD SPECIMENOrdering Facility: [facility] Address: [address] [place] [address] Performed By: #### A LLBG ####[facility] LABCLIA [id number] [place] [address] [place] Hemoglobin (Bld) [Mass/Vol] 14.2 g/dL Normal 13.0-17.0 [facility] Comment on above: Order Comment: Speci men Type: ARTERIAL BLOOD SPECIMENOrdering Facility: [facility] Address: [address] [place] [address] Performed By: #### A LLBG ####[facility] LABCLIA [id number] [place] [address] [place] Lactate [Moles/Vol] 1.0 mmol/L Normal 0.5-2.2 [facility] Comment on above: Order Comment: Speci men Type: ARTERIAL BLOOD SPECIMENOrdering Facility: [facility] Address: [address] [place] [address] Performed By: #### A LLBG ####[facility] LABCLIA [id number] [place] [address] [place] Methemoglobin (Bld) [Mass fraction] 1.5 % Normal 0.0-1.5 [facility] Comment on above: Order Comment: Speci men Type: ARTERIAL BLOOD SPECIMENOrdering Facility: [facility] Address: [address] [place] [address] Performed By: #### A LLBG ####[facility] LABCLIA [id number] [place] [address] [place] O2 THERAPY RA=Room Air Normal [facility] Comment on above: Order Comment: Speci men Type: ARTERIAL BLOOD SPECIMENOrdering Facility: [facility] Address: [address] [place] [address] Performed By: #### A LLBG ####[facility] LABCLIA [id number] [place] [address] [place] Oxygen (Bld) [Partial pressure] 69 mm Hg Low 85-95 [facility] Comment on above: Order Comment: Speci men Type: ARTERIAL BLOOD SPECIMENOrdering Facility: [facility] Address: [address] [place] [address] Performed By: #### A LLBG ####[facility] LABCLIA [id number] [place] [address] [place] Oxyhemoglobin (BldA) [Mass fraction] 91 % Low 95-98 [facility] Comment on above: Order Comment: Speci men Type: ARTERIAL BLOOD SPECIMENOrdering Facility: [facility] Address: [address] [place] [address] Performed By: #### A LLBG ####[facility] LABCLIA [id number] [place] [address] [place] pH (Bld) 7.43 [pH] Normal 7.35-7.45 [facility] Comment on above: Order Comment: Speci men Type: ARTERIAL BLOOD SPECIMENOrdering Facility: [facility] Address: [address] [place] [address] Performed By: #### A LLBG ####[facility] LABCLIA [id number] [place] [address] [place] PO2 / FIO2 RATIO 329 mmHg Normal >300 [facility] Comment on above: Order Comment: Speci men Type: ARTERIAL BLOOD SPECIMENOrdering Facility: [facility] Address: [address] [place] [address] Performed By: #### A LLBG ####[facility] LABCLIA [id number] [place] [address] [place] Potassium [Moles/Vol] 3.8 mmol/L Normal 3.5-5.0 [facility] Comment on above: Order Comment: Speci men Type: ARTERIAL BLOOD SPECIMENOrdering Facility: [facility] Address: [address] [place] [address] Performed By: #### A LLBG ####[facility] LABCLIA [id number] [place] [address] [place] Sodium [Moles/Vol] 139 mmol/L Normal 136-144 [facility] Comment on above: Order Comment: Speci men Type: ARTERIAL BLOOD SPECIMENOrdering Facility: [facility] Address: [address] [place] [address] Performed By: #### A LLBG ####[facility] LABCLIA [id number] [place] [address] [place] CBC panel Auto (Bld)on 06-17 Erythrocyte distribution width (RBC) [Ratio] 14.3 % Normal 11.5-15.0 [facility] Comment on above: Order Comment: Speci men Type: BLOOD SPECIMENOrdering Facility: [facility] Address: [address] [place] [address] Performed By: #### 5 8410-2 ####[facility] LABIA [id number] [place] [address] [place] Hematocrit (Bld) [Volume fraction] 39.9 % Normal 39.0-51.0 [facility] Comment on above: Order Comment: Speci men Type: BLOOD SPECIMENOrdering Facility: [facility] Address: [address] [place] [address] Performed By: #### 5 8410-2 ####[facility] [id number] [place] [address] [place] Hemoglobin (Bld) [Mass/Vol] 13.3 g/dL Normal 13.0-17.0 [facility] Comment on above: Order Comment: Speci men Type: BLOOD SPECIMENOrdering Facility: [facility] Address: [address] [place] [address] Performed By: #### 5 8410-2 ####[facility] [id number] [place] [address] [place] MCH (RBC) [Entitic mass] 29.9 pg Normal 26.0-34.0 [facility] Comment on above: Order Comment: Speci men Type: BLOOD SPECIMENOrdering Facility: [facility] Address: [address] [place] [address] Performed By: #### 5 8410-2 ####[facility] LABIA [id number] [place] [address] [place] MCHC (RBC) [Mass/Vol] 33.3 g/dL Normal 30.5-36.0 [facility] Comment on above: Order Comment: Speci men Type: BLOOD SPECIMENOrdering Facility: [facility] Address: [address] [place] [address] Performed By: #### 5 8410-2 ####[facility] LABCLIA [id number] [place] [address] [place] MCV (RBC) [Entitic vol] 89.7 fL Normal 80.0-100.0 [facility] Comment on above: Order Comment: Speci men Type: BLOOD SPECIMENOrdering Facility: [facility] Address: [address] [place] [address] Performed By: #### 5 8410-2 ####[facility] LABIA [id number] [place] [address] [place] Nucleated RBC (Bld) [#/Vol] 10*3/uL Normal <0.01 [facility] Comment on above: Order Comment: Speci men Type: BLOOD SPECIMENOrdering Facility: [facility] Address: [address] [place] [address] Performed By: #### 5 8410-2 ####[facility] LABIA [id number] [place] [address] [place] Platelet mean volume (Bld) [Entitic vol] 9.1 fL Normal 9.0-12.7 [facility] Comment on above: Order Comment: Speci men Type: BLOOD SPECIMENOrdering Facility: [facility] Address: [address] [place] [address] Performed By: #### 5 8410-2 ####[facility] LABIA [id number] [place] [address] [place] Platelets (Bld) [#/Vol] 371 10*3/uL Normal 150-400 [facility] Comment on above: Order Comment: Speci men Type: BLOOD SPECIMENOrdering Facility: [facility] Address: [address] [place] [address] Performed By: #### 5 8410-2 ####[facility] LABIA [id number] [place] [address] [place] RBC (Bld) [#/Vol] 4.45 10*6/uL Normal 4.20-6.00 [facility] Comment on above: Order Comment: Speci men Type: BLOOD SPECIMENOrdering Facility: [facility] Address: [address] [place] [address] Performed By: #### 5 8410-2 ####[facility] LABCLIA [id number] [place] [address] [place] WBC (Bld) [#/Vol] 16.45 10*3/uL High 3.70-11.00 [facility] Comment on above: Order Comment: Speci men Type: BLOOD SPECIMENOrdering Facility: [facility] Address: [address] [place] [address] Performed By: #### 5 8410-2 ####[facility] LABCLIA [id number] [place] [address] [place] Comprehensive metabolic 2000 panelon 06-17-2024 Albumin [Mass/Vol] 2.9 g/dL Low 3.9-4.9 [facility] Comment on above: Order Comment: Speci men Type: BLOOD SPECIMENOrdering Facility: [facility] Address: [address] [place] [address] Performed By: #### 2 4323-8, 2571-8, 54400-1, 2777-1 ####[facility] LABCLIA [id number] [place] [address] [place] ALP [Catalytic activity/Vol] 97 U/L Normal 38-113 [facility] Comment on above: Order Comment: Speci men Type: BLOOD SPECIMENOrdering Facility: [facility] Address: [address] [place] [address] Performed By: #### 2 4323-8, 2571-8, 60493-7, 2777-1 ####[facility] LABCLIA [id number] [place] [address] [place] ALT [Catalytic activity/Vol] 108 U/L High 10-54 [facility] Comment on above: Order Comment: Speci men Type: BLOOD SPECIMENOrdering Facility: [facility] Address: [address] [place] [address] Performed By: #### 2 4323-8, 2571-8, 39678-5, 2777-1 ####[facility] LABCLIA [id number] [place] [address] [place] Anion gap [Moles/Vol] 9 mmol/L Normal 8-15 [facility] Comment on above: Order Comment: Speci men Type: BLOOD SPECIMENOrdering Facility: [facility] Address: [address] [place] [address] Performed By: #### 2 4323-8, 2571-8, 49012-1, 2777-1 ####[facility] LABCLIA [id number] [place] [address] [place] AST [Catalytic activity/Vol] 46 U/L High 14-40 [facility] Comment on above: Order Comment: Speci men Type: BLOOD SPECIMENOrdering Facility: [facility] Address: [address] [place] [address] Performed By: #### 2 4323-8, 2571-8, 19131-4, 2777-1 ####[facility] LABCLIA [id number] [place] [address] [place] Bilirubin [Mass/Vol] 0.3 mg/dL Normal 0.2-1.3 [facility] Comment on above: Order Comment: Speci men Type: BLOOD SPECIMENOrdering Facility: [facility] Address: [address] [place] [address] Performed By: #### 2 4323-8, 2571-8, 44257-3, 2777-1 ####[facility] LABCLIA [id number] [place] [address] [place] Calcium [Mass/Vol] 8.5 mg/dL Normal 8.5-10.2 [facility] Comment on above: Order Comment: Speci men Type: BLOOD SPECIMENOrdering Facility: [facility] Address: [address] [place] [address] Performed By: #### 2 4323-8, 2571-8, 65111-9, 2777-1 ####[facility] LABCLIA [id number] [place] [address] [place] Chloride [Moles/Vol] 100 mmol/L Normal 98-107 [facility] Comment on above: Order Comment: Speci men Type: BLOOD SPECIMENOrdering Facility: [facility] Address: [address] [place] [address] Performed By: #### 2 4323-8, 2571-8, 21979-3, 277-1 ####[facility] LABCLIA [id number] [place] [address] [place] CO2 [Moles/Vol] 30 mmol/L Normal 22-30 [facility] Comment on above: Order Comment: Speci men Type: BLOOD SPECIMENOrdering Facility: [facility] Address: [address] [place] [address] Performed By: #### 2 4323-8, 2571-8, 04213-2, 277-1 ####[facility] LABCLIA [id number] [place] [address] [place] Creatinine [Mass/Vol] 0.79 mg/dL Normal 0.73-1.22 [facility] Comment on above: Order Comment: Speci men Type: BLOOD SPECIMENOrdering Facility: [facility] Address: [address] [place] [address] Performed By: #### 2 4323-8, 2571-8, 93760-1, 2777-1 ####[facility] LABCLIA [id number] [place] [address] [place] Creatinine and Glomerular filtration rate.predicted panel (S/P/Bld) 94 mL/min/1.73m??? Normal >=60 [facility] Comment on above: Order Comment: Allegra donis Type: BLOOD SPECIMENOrdering Facility: [facility] Address: [address] [place] [address] Result Comment: Stephanie mated Glomerular Filtration Rate (eGFR) is calculated using the 2020 CKD-EPI creatinine equation. This equation utilizes serum creatinine, sex, and age as parameters. The creatinine assay has traceable calibration to isotope dilution-mass spectrometry. Refer to KDIGO guidelines for clinical interpretation. In patients with unstable renal function, e.g. those with acute kidney injury, the eGFR may not accurately reflect actual GFR. Performed By: #### 2 4323-8, 2571-8, 40936-6, 2776- ####[facility] LABCLIA [id number] [place] [address] [place] Glucose [Mass/Vol] 176 mg/dL High 74-99 [facility] Comment on above: Order Comment: Allegra donis Type: BLOOD SPECIMENOrdering Facility: [facility] Address: [address] [place] [address] Result Comment: The [place] Diabetes Association (ADA) provides guidance for cutoff values for fasting glucose and random glucose. The ADA defines fasting as no caloric intake for at least 8 hours. Fasting plasma glucose results between 100 to 125 mg/dL indicate increased risk for diabetes (prediabetes).Fasting plasma glucose results greater than or equal to 126 mg/dL meet the criteria for diagnosis of diabetes. In the absence of unequivocal hyperglycemia, results should be confirmed by repeat testing. In a patient with classic symptoms of hyperglycemia or hyperglycemic crisis, random plasma glucose results greater than or equal to 200 mg/dL meet the criteria for diagnosis of diabetes.Reference: Standards of Medical Care in Diabetes 2016, [place] [employer]. Diabetes Care. 2016.39(Suppl 1). Performed By: #### 2 4323-8, 2571-8, 89116-3, 2777-1 ####[facility] LABCLIA [id number] [address] [address] [place] Potassium [Moles/Vol] 4.1 mmol/L Normal 3.7-5.1 [facility] Comment on above: Order Comment: Speci men Type: BLOOD SPECIMENOrdering Facility: [facility] Address: [address] [place] [address] Performed By: #### 2 4323-8, 2571-8, 32339-5, 2776-1 ####[facility] LABCLIA [id number] [place] [address] [place] Protein [Mass/Vol] 5.0 g/dL Low 6.3-8.0 [facility] Comment on above: Order Comment: Speci men Type: BLOOD SPECIMENOrdering Facility: [facility] Address: [address] [place] [address] Performed By: #### 2 4323-8, 257-8, , 2776- ####[facility] LABCLIA [id number] [place] [address] [place] Sodium [Moles/Vol] 139 mmol/L Normal 136-144 [facility] Comment on above: Order Comment: Speci men Type: BLOOD SPECIMENOrdering Facility: [facility] Address: [address] [place] [address] Performed By: #### 2 4323-8, 2571-8, 16837-2, 2776- ####[facility] LABCLIA [id number] [place] [id number] [place] Urea nitrogen [Mass/Vol] 52 mg/dL High 9-24 [facility] Comment on above: Order Comment: Speci men Type: BLOOD SPECIMENOrdering Facility: [facility] Address: [address] [place] [address] Performed By: #### 2 4323-8, 2571-8, 25007-2, 2777-1 ####[facility] LABCLIA [id number] [place] [id number] [place] Magnesium SerPl-ncon 06-17 Magnesium [Mass/Vol] 2.4 mg/dL High 1.7-2.3 [facility] Comment on above: Order Comment: Allegra donis Type: BLOOD SPECIMENOrdering Facility: [facility] Address: [address] [place] [address] Performed By: #### 2 4323-8, 2571-8, 87758-4, 2777-1 ####[facility] LABCLIA [id number] [place] [address] [place] NURSING PROGon 06-17-2024 NURSING PROG Normal [facility] NUTRITIONon 06-17-2024 NUTRITION Normal [facility] Phosphate [Mass/Vol] 1.4 mg/dL Low 2.7-4.8 [facility] Comment on above: Order Comment: Allegra donis Type: BLOOD SPECIMENOrdering Facility: [facility] Address: [address] [place] [address] Result Comment: Resu lt rechecked. Performed By: #### 2 4323-8, 2571-8, 04059-7, 2776-06 ####[facility] LABCLIA [id number] [place] [id number] [place] THERAPY NTon 06-17-2024 THERAPY NT Normal [facility] THERAPY NT Normal [facility] Tacrolimus Bld-mCncon 2024 Tacrolimus (Bld) [Mass/Vol] 4.2 ng/mL Low 5.0-20.0 [facility] Comment on above: Order Comment: Allegra donis Type: BLOOD SPECIMENOrdering Facility: [facility] Address: [address] [place] [address] Result Comment: Noreen vidualized target levels for [...] situation. Test performed by chemiluminescent immunoassay using [employer] i. Performed By: #### 1 1253-2 ####[facility] LABCLIA [id number] [place] [address] [place] Trigl SerPl-mCncon 5 Triglyceride [Mass/Vol] 202 mg/dL High <150 [facility] Comment on above: Order Comment: Speci men Type: BLOOD SPECIMENOrdering Facility: [facility] Address: [address] [place] [address] Result Comment: <150 mg/dL, Normal 150-199 mg/dL, Borderline high 200-499 mg/dL, High>499 mg/dL, Very highReference:1. National Cholesterol Education Program ATP III Guideline At-A-Glance Quick Desk Reference: National Heart, Lung, and Blood [place]. National Institutes of Health. 2001: NIH Publication No. 01-3305. Performed By: #### 2 4323-8, 2571-8, 29630-1, 2777-1 ####[facility] [id number] [address] [place] Triglyceride [Mass/Vol]on FASTING TIME N/A Normal [facility] Comment on above: Order Comment: Specedmond men Type: BLOOD SPECIMENOrdering Facility: [facility] Address: [address] [place] [address] Performed By: #### 2 4323-8, 2571-8, 53232-9, 2777-1 ####[facility] LABIA [id number] [place] [id number] [place] XR ABDOMEN 1V SUPINEon 06-17 XR ABDOMEN 1V SUPINE Normal [facility] ARTERIAL BLOOD GASESon 06-16 Base excess Calc (Bld) [Moles/Vol] 8 mmol/L High 0-2 [facility] Comment on above: Order Comment: Speci men Type: ARTERIAL BLOOD SPECIMENOrdering Facility: [facility] Address: [address] [place] [address] Performed By: #### A LLBG ####[facility] LABIA [id number] [place] [address] [place] Body temperature 98.6 [degF] Normal [facility] Comment on above: Order Comment: Speci men Type: ARTERIAL BLOOD SPECIMENOrdering Facility: [facility] Address: [address] [place] [address] Performed By: #### A LLBG ####[facility]IA [id number] [place] [address] [place] Calcium.ionized (Bld) [Mass/Vol] 1.26 mmol/L Normal 1.08-1.30 [facility] Comment on above: Order Comment: Speci men Type: ARTERIAL BLOOD SPECIMENOrdering Facility: [facility] Address: [address] [place] [address] Performed By: #### A LLBG ####[facility] [id number] [place] [address] [place] Calcium.ionized adjusted to pH 7.4 (BldA) [Moles/Vol] 1.30 mmol/L Normal 1.08-1.30 [facility] Comment on above: Order Comment: Speci men Type: ARTERIAL BLOOD SPECIMENOrdering Facility: [facility] Address: [address] [place] [address] Performed By: #### A LLBG ####[facility] LABIA [id number] [place] [address] [place] Carboxyhemoglobin (BldA) [Mass fraction] 1.1 % Normal 0.0-2.0 [facility] Comment on above: Order Comment: Speci men Type: ARTERIAL BLOOD SPECIMENOrdering Facility: [facility] Address: [address] [place] [address] Result Comment: Carb oxyhemoglobin Reference Range for Smokers: 2.0-8.0% Performed By: #### A LLBG ####[facility] LABCLIA [id number] [place] [address] [place] CO2 (Bld) [Partial pressure] 46 mm Hg Normal 36-46 [facility] Comment on above: Order Comment: Speci men Type: ARTERIAL BLOOD SPECIMENOrdering Facility: [facility] Address: [address] [place] [address] Performed By: #### A LLBG ####[facility]CL[facility] [id number] [place] [address] [place] FIO2 30 % Normal [facility] Comment on above: Order Comment: Speci men Type: ARTERIAL BLOOD SPECIMENOrdering Facility: [facility] Address: [address] [place] [address] Performed By: #### A LLBG ####[facility]CLIA [id number] [place] [address] [place] Glucose [Mass/Vol] 215 mg/dL High 60-105 [facility] Comment on above: Order Comment: Speci men Type: ARTERIAL BLOOD SPECIMENOrdering Facility: [facility] Address: [address] [place] [address] Performed By: #### A LLBG ####[facility] LABCLIA [id number] [place] [address] [place] HCO3 (Bld) [Moles/Vol] 32 mmol/L High 22-26 [facility] Comment on above: Order Comment: Speci men Type: ARTERIAL BLOOD SPECIMENOrdering Facility: [facility] Address: [address] [place] [address] Performed By: #### A LLBG ####[facility] LABCLIA [id number] [place] [address] [place] Hematocrit (Bld) [Volume fraction] 43.6 % Normal 39.0-51.0 [facility] Comment on above: Order Comment: Speci men Type: ARTERIAL BLOOD SPECIMENOrdering Facility: [facility] Address: [address] [place] [address] Performed By: #### A LLBG ####[facility] LABIA [id number] [place] [address] [place] Hemoglobin (Bld) [Mass/Vol] 14.2 g/dL Normal 13.0-17.0 [facility] Comment on above: Order Comment: Speci men Type: ARTERIAL BLOOD SPECIMENOrdering Facility: [facility] Address: [address] [place] [address] Performed By: #### A LLBG ####[facility] [id number] [place] [address] [place] Lactate [Moles/Vol] 1.2 mmol/L Normal 0.5-2.2 [facility] Comment on above: Order Comment: Speci men Type: ARTERIAL BLOOD SPECIMENOrdering Facility: [facility] Address: [address] [place] [address] Performed By: #### A LLBG ####[facility] LABIA [id number] [place] [address] [place] Methemoglobin (Bld) [Mass fraction] 0.6 % Normal 0.0-1.5 [facility] Comment on above: Order Comment: Speci men Type: ARTERIAL BLOOD SPECIMENOrdering Facility: [facility] Address: [address] [place] [address] Performed By: #### A LLBG ####[facility] [id number] [place] [address] [place] O2 THERAPY Hi-Flow Nasal Cannula-Heated Normal [facility] Comment on above: Order Comment: Speci men Type: ARTERIAL BLOOD SPECIMENOrdering Facility: [facility] Address: [address] [place] [address] Performed By: #### A LLBG ####[facility] LABCLIA [id number] [place] [address] [place] Oxygen (Bld) [Partial pressure] 71 mm Hg Low 85-95 [facility] Comment on above: Order Comment: Speci men Type: ARTERIAL BLOOD SPECIMENOrdering Facility: [facility] Address: [address] [place] [address] Performed By: #### A LLBG ####[facility] LABCLIA [id number] [place] [address] [place] Oxyhemoglobin (BldA) [Mass fraction] 92 % Low 95-98 [facility] Comment on above: Order Comment: Speci men Type: ARTERIAL BLOOD SPECIMENOrdering Facility: [facility] Address: [address] [place] [address] Performed By: #### A LLBG ####[facility] LABCLIA [id number] [place] [address] [place] pH (Bld) 7.46 [pH] High 7.35-7.45 [facility] Comment on above: Order Comment: Speci men Type: ARTERIAL BLOOD SPECIMENOrdering Facility: [facility] Address: [address] [place] [address] Performed By: #### A LLBG ####[facility] LABCLIA [id number] [place] [address] [place] PO2 / FIO2 RATIO 237 mmHg Low >300 [facility] Comment on above: Order Comment: Speci men Type: ARTERIAL BLOOD SPECIMENOrdering Facility: [facility] Address: [address] [place] [address] Performed By: #### A LLBG ####[facility] LABCLIA [id number] [place] [address] [place] Potassium [Moles/Vol] 4.4 mmol/L Normal 3.5-5.0 [facility] Comment on above: Order Comment: Speci men Type: ARTERIAL BLOOD SPECIMENOrdering Facility: [facility] Address: [address] [place] [address] Performed By: #### A LLBG ####[facility] LABCLIA [id number] [place] [id number] [place] Sodium [Moles/Vol] 138 mmol/L Normal 136-144 [facility] Comment on above: Order Comment: Speci men Type: ARTERIAL BLOOD SPECIMENOrdering Facility: [facility] Address: [address] [place] [address] Performed By: #### A LLBG ####[facility] LABIA [id number] [place] [address] [place] CASE MANAGEMon 06-16-2024 CASE MANAGEM Normal [facility] CBC panel Auto (Bld)on 06-16 Erythrocyte distribution width (RBC) [Ratio] 14.6 % Normal 11.5-15.0 [facility] Comment on above: Order Comment: Speci men Type: BLOOD SPECIMENOrdering Facility: [facility] Address: [address] [place] [address] Performed By: #### 5 8410-2 ####[facility] LABIA [id number] [place] [address] [place] Hematocrit (Bld) [Volume fraction] 40.4 % Normal 39.0-51.0 [facility] Comment on above: Order Comment: Speci men Type: BLOOD SPECIMENOrdering Facility: [facility] Address: [address] [place] [address] Performed By: #### 5 8410-2 ####[facility] LABIA [id number] [place] [address] [place] Hemoglobin (Bld) [Mass/Vol] 13.4 g/dL Normal 13.0-17.0 [facility] Comment on above: Order Comment: Speci men Type: BLOOD SPECIMENOrdering Facility: [facility] Address: [address] [place] [address] Performed By: #### 5 8410-2 ####[facility] LABIA [id number] [place] [address] [place] MCH (RBC) [Entitic mass] 29.8 pg Normal 26.0-34.0 [facility] Comment on above: Order Comment: Speci men Type: BLOOD SPECIMENOrdering Facility: [facility] Address: [address] [place] [address] Performed By: #### 5 8410-2 ####[facility] LABIA [id number] [place] [address] [place] MCHC (RBC) [Mass/Vol] 33.2 g/dL Normal 30.5-36.0 [facility] Comment on above: Order Comment: Speci men Type: BLOOD SPECIMENOrdering Facility: [facility] Address: [address] [place] [address] Performed By: #### 5 8410-2 ####[facility] LABIA [id number] [place] [address] [place] MCV (RBC) [Entitic vol] 90.0 fL Normal 80.0-100.0 [facility] Comment on above: Order Comment: Speci men Type: BLOOD SPECIMENOrdering Facility: [facility] Address: [address] [place] [address] Performed By: #### 5 8410-2 ####[facility] LABIA [id number] [place] [address] [place] Nucleated RBC (Bld) [#/Vol] 10*3/uL Normal <0.01 [facility] Comment on above: Order Comment: Speci men Type: BLOOD SPECIMENOrdering Facility: [facility] Address: [address] [place] [address] Performed By: #### 5 8410-2 ####[facility] LABIA [id number] [place] [address] [place] Platelet mean volume (Bld) [Entitic vol] 9.1 fL Normal 9.0-12.7 [facility] Comment on above: Order Comment: Speci men Type: BLOOD SPECIMENOrdering Facility: [facility] Address: [address] [place] [address] Performed By: #### 5 8410-2 ####[facility] LABIA [id number] [place] [address] [place] Platelets (Bld) [#/Vol] 318 10*3/uL Normal 150-400 [facility] Comment on above: Order Comment: Speci men Type: BLOOD SPECIMENOrdering Facility: [facility] Address: [address] [place] [address] Performed By: #### 5 8410-2 ####[facility] LABIA [id number] [place] [address] [place] RBC (Bld) [#/Vol] 4.49 10*6/uL Normal 4.20-6.00 [facility] Comment on above: Order Comment: Speci men Type: BLOOD SPECIMENOrdering Facility: [facility] Address: [address] [place] [address] Performed By: #### 5 8410-2 ####[facility] LABIA [id number] [place] [address] [place] WBC (Bld) [#/Vol] 17.16 10*3/uL High 3.70-11.00 [facility] Comment on above: Order Comment: Speci men Type: BLOOD SPECIMENOrdering Facility: [facility] Address: [address] [place] [address] Performed By: #### 5 8410-2 ####[facility] LABIA [id number] [place] [address] [place] Comprehensive metabolic 2000 panelon 06-16-2024 Albumin [Mass/Vol] 3.0 g/dL Low 3.9-4.9 [facility] Comment on above: Order Comment: Speci men Type: BLOOD SPECIMENOrdering Facility: [facility] Address: [address] [place] [address] Performed By: #### 2 4323-8, 2771, ####[facility] LABCLIA [id number] [place] [address] [place] ALP [Catalytic activity/Vol] 105 U/L Normal 38-113 [facility] Comment on above: Order Comment: Speci men Type: BLOOD SPECIMENOrdering Facility: [facility] Address: [address] [place] [address] Performed By: #### 2 4323-8, 27712-13, ####[facility] LABCLIA [id number] [place] [address] [place] ALT [Catalytic activity/Vol] 105 U/L High 10-54 [facility] Comment on above: Order Comment: Speci men Type: BLOOD SPECIMENOrdering Facility: [facility] Address: [address] [place] [address] Performed By: #### 2 4323-8, 2776-06, ####[facility] LABCLIA [id number] [place] [address] [place] Anion gap [Moles/Vol] 13 mmol/L Normal 8-15 [facility] Comment on above: Order Comment: Speci men Type: BLOOD SPECIMENOrdering Facility: [facility] Address: [address] [place] [address] Performed By: #### 2 4323-8, 2776-06, ####[facility] LABCLIA [id number] [place] [id number] [place] AST [Catalytic activity/Vol] 49 U/L High 14-40 [facility] Comment on above: Order Comment: Speci men Type: BLOOD SPECIMENOrdering Facility: [facility] Address: [address] [place] [address] Performed By: #### 2 4323-8, 2776-06, ####[facility] LABCLIA [id number] [address] [address] [place] Bilirubin [Mass/Vol] 0.2 mg/dL Normal 0.2-1.3 [facility] Comment on above: Order Comment: Speci men Type: BLOOD SPECIMENOrdering Facility: [facility] Address: [address] [place] [address] Performed By: #### 2 4323-8, 27712-13, ####[facility] LABCLIA [id number] [place] [id number] [place] Calcium [Mass/Vol] 8.4 mg/dL Low 8.5-10.2 [facility] Comment on above: Order Comment: Speci men Type: BLOOD SPECIMENOrdering Facility: [facility] Address: [address] [place] [address] Performed By: #### 2 4323-8, 2776-06, ####[facility] LABCLIA [id number] [address] [address] [place] Chloride [Moles/Vol] 98 mmol/L Normal 98-107 [facility] Comment on above: Order Comment: Speci men Type: BLOOD SPECIMENOrdering Facility: [facility] Address: [address] [place] [address] Performed By: #### 2 4323-8, 2776-06, ####[facility] LABCLIA [id number] [address] [address] [place] CO2 [Moles/Vol] 29 mmol/L Normal 22-30 [facility] Comment on above: Order Comment: Speci men Type: BLOOD SPECIMENOrdering Facility: [facility] Address: [address] [place] [id number] Performed By: #### 2 4323-8, 2777, ####[facility] LABIA [id number] [address] [address] [place] Creatinine [Mass/Vol] 0.88 mg/dL Normal 0.73-1.22 [facility] Comment on above: Order Comment: Speci men Type: BLOOD SPECIMENOrdering Facility: [facility] Address: [address] [place] [address] Performed By: #### 2 4323-8, 2777, ####[facility] [id number] [place] [address] [place] Creatinine and Glomerular filtration rate.predicted panel (S/P/Bld) 91 mL/min/1.73m??? Normal >=60 [facility] Comment on above: Order Comment: Allegra men Type: BLOOD SPECIMENOrdering Facility: [facility] Address: [address] [place] [address] Result Comment: Stephanie mated Glomerular Filtration Rate (eGFR) is calculated using the 2020 CKD-EPI creatinine equation. This equation utilizes serum creatinine, sex, and age as parameters. The creatinine assay has traceable calibration to isotope dilution-mass spectrometry. Refer to KDIGO guidelines for clinical interpretation. In patients with unstable renal function, e.g. those with acute kidney injury, the eGFR may not accurately reflect actual GFR. Performed By: #### 2 4323-8, 27712-13, ####[facility] LABIA [id number] [address] [address] [place] Glucose [Mass/Vol] 180 mg/dL High 74-99 [facility] Comment on above: Order Comment: Allegra men Type: BLOOD SPECIMENOrdering Facility: [facility] Address: [address] [place] [address] Result Comment: The [place] [employer] (ADA) provides guidance for cutoff values for fasting glucose and random glucose. The ADA defines fasting as no caloric intake for at least 8 hours. Fasting plasma glucose results between 100 to 125 mg/dL indicate increased risk for diabetes (prediabetes).Fasting plasma glucose results greater than or equal to 126 mg/dL meet the criteria for diagnosis of diabetes. In the absence of unequivocal hyperglycemia, results should be confirmed by repeat testing. In a patient with classic symptoms of hyperglycemia or hyperglycemic crisis, random plasma glucose results greater than or equal to 200 mg/dL meet the criteria for diagnosis of diabetes.Reference: Standards of Medical Care in Diabetes 2016, [place] [employer]. Diabetes Care. 2016.39(Suppl 1). Performed By: #### 2 4323-8, 2777, ####[facility] LABCLIA [id number] [place] [address] [place] Potassium [Moles/Vol] 4.6 mmol/L Normal 3.7-5.1 [facility] Comment on above: Order Comment: Speci men Type: BLOOD SPECIMENOrdering Facility: [facility] Address: [address] [place] [address] Performed By: #### 2 4323-8, 2776-06, ####[facility] LABIA [id number] [place] [address] [place] Protein [Mass/Vol] 5.1 g/dL Low 6.3-8.0 [facility] Comment on above: Order Comment: Speci men Type: BLOOD SPECIMENOrdering Facility: [facility] Address: [address] [place] [address] Performed By: #### 2 4323-8, 27712-13, ####[facility] LABIA [id number] [place] [id number] [place] Sodium [Moles/Vol] 140 mmol/L Normal 136-144 [facility] Comment on above: Order Comment: Speci men Type: BLOOD SPECIMENOrdering Facility: [facility] Address: [address] [place] [address] Performed By: #### 2 4323-8, 27712-13, ####[facility] LABCLIA [id number] [place] [id number] [place] Urea nitrogen [Mass/Vol] 55 mg/dL High 9-24 [facility] Comment on above: Order Comment: Speci men Type: BLOOD SPECIMENOrdering Facility: [facility] Address: [address] [place] [address] Performed By: #### 2 4323-8, 2776-06, ####[facility] LABCLIA [id number] [place] [id number] [place] Magnesium SerPl-ncon 06-16 Magnesium [Mass/Vol] 2.0 mg/dL Normal 1.7-2.3 [facility] Comment on above: Order Comment: Speci men Type: BLOOD SPECIMENOrdering Facility: [facility] Address: [address] [place] [address] Performed By: #### 2 4323-8, 2776-06, ####[facility] LABIA [id number] [place] [id number] [place] NUTRITIONon 06-16-2024 NUTRITION Normal [facility] Phosphate SerPl-mCncon 06-16 Phosphate [Mass/Vol] 4.0 mg/dL Normal 2.7-4.8 [facility] Comment on above: Order Comment: Speci men Type: BLOOD SPECIMENOrdering Facility: [facility] Address: [address] [place] [address] Performed By: #### 2 4323-8, 2776-06, ####[facility] LABCLIA [id number] [address] [address] [place] Tacrolimus Bld-mCncon 2024 Tacrolimus (Bld) [Mass/Vol] 2.9 ng/mL Low 5.0-20.0 [facility] Comment on above: Order Comment: Allegra donis Type: BLOOD SPECIMENOrdering Facility: [facility] Address: [address] [place] [address] Result Comment: Noreen vidualized target levels for [...] situation. Test performed by chemiluminescent immunoassay using [employer] i. Performed By: #### 1 1253-2 ####[facility] LABCLIA [id number] [place] [address] [place] XR CHEST 1V FRONTALon 2024 XR CHEST 1V FRONTAL Normal [facility] CBC panel Auto (Bld)on 06-15 Erythrocyte distribution width (RBC) [Ratio] 14.6 % Normal 11.5-15.0 [facility] Comment on above: Order Comment: Allegra donis Type: BLOOD SPECIMENOrdering Facility: [facility] Address: [address] [place] [address] Performed By: #### 5 8410-2 ####[facility] LABCLIA [id number] [place] [address] [place] Hematocrit (Bld) [Volume fraction] 37.8 % Low 39.0-51.0 [facility] Comment on above: Order Comment: Hernáni men Type: BLOOD SPECIMENOrdering Facility: [facility] Address: [address] [place] [address] Performed By: #### 5 8410-2 ####[facility] LABCLIA [id number] [place] [address] [place] Hemoglobin (Bld) [Mass/Vol] 12.6 g/dL Low 13.0-17.0 [facility] Comment on above: Order Comment: Hernáni men Type: BLOOD SPECIMENOrdering Facility: [facility] Address: [address] [place] [address] Performed By: #### 5 8410-2 ####[facility] LABCLIA [id number] [place] [address] [place] MCH (RBC) [Entitic mass] 30.1 pg Normal 26.0-34.0 [facility] Comment on above: Order Comment: Speci men Type: BLOOD SPECIMENOrdering Facility: [facility] Address: [address] [place] [address] Performed By: #### 5 8410-2 ####[facility] LABIA [id number] [place] [address] [place] MCHC (RBC) [Mass/Vol] 33.3 g/dL Normal 30.5-36.0 [facility] Comment on above: Order Comment: Speci men Type: BLOOD SPECIMENOrdering Facility: [facility] Address: [address] [place] [address] Performed By: #### 5 8410-2 ####[facility] LABIA [id number] [place] [address] [place] MCV (RBC) [Entitic vol] 90.2 fL Normal 80.0-100.0 [facility] Comment on above: Order Comment: Speci men Type: BLOOD SPECIMENOrdering Facility: [facility] Address: [address] [place] [address] Performed By: #### 5 8410-2 ####[facility] LABCLIA [id number] [place] [address] [place] Nucleated RBC (Bld) [#/Vol] 10*3/uL Normal <0.01 [facility] Comment on above: Order Comment: Speci men Type: BLOOD SPECIMENOrdering Facility: [facility] Address: [address] [place] [address] Performed By: #### 5 8410-2 ####[facility] LABCLIA [id number] [place] [address] [place] Platelet mean volume (Bld) [Entitic vol] 9.6 fL Normal 9.0-12.7 [facility] Comment on above: Order Comment: Speci men Type: BLOOD SPECIMENOrdering Facility: [facility] Address: [address] [place] [address] Performed By: #### 5 8410-2 ####[facility] LABIA [id number] [place] [address] [place] Platelets (Bld) [#/Vol] 282 10*3/uL Normal 150-400 [facility] Comment on above: Order Comment: Speci men Type: BLOOD SPECIMENOrdering Facility: [facility] Address: [address] [place] [address] Performed By: #### 5 8410-2 ####[facility] LABIA [id number] [place] [address] [place] RBC (Bld) [#/Vol] 4.19 10*6/uL Low 4.20-6.00 [facility] Comment on above: Order Comment: Speci men Type: BLOOD SPECIMENOrdering Facility: [facility] Address: [address] [place] [address] Performed By: #### 5 8410-2 ####[facility] LABIA [id number] [place] [address] [place] WBC (Bld) [#/Vol] 16.33 10*3/uL High 3.70-11.00 [facility] Comment on above: Order Comment: Speci men Type: BLOOD SPECIMENOrdering Facility: [facility] Address: [address] [place] [address] Performed By: #### 5 8410-2 ####[facility] LABIA [id number] [place] [address] [place] Comprehensive metabolic 2000 panelon 06-15-2024 Albumin [Mass/Vol] 2.9 g/dL Low 3.9-4.9 [facility] Comment on above: Order Comment: Speci men Type: BLOOD SPECIMENOrdering Facility: [facility] Address: [address] [place] [address] Performed By: #### 2 4323-8, 277-1, ####[facility] LABCLIA [id number] [place] [address] [place] ALP [Catalytic activity/Vol] 110 U/L Normal 38-113 [facility] Comment on above: Order Comment: Speci men Type: BLOOD SPECIMENOrdering Facility: [facility] Address: [address] [place] [address] Performed By: #### 2 4323-8, 2776-06, ####[facility] LABCLIA [id number] [place] [address] [place] ALT [Catalytic activity/Vol] 107 U/L High 10-54 [facility] Comment on above: Order Comment: Speci men Type: BLOOD SPECIMENOrdering Facility: [facility] Address: [address] [place] [address] Performed By: #### 2 4323-8, 2776-06, ####[facility] LABCLIA [id number] [place] [address] [place] Anion gap [Moles/Vol] 14 mmol/L Normal 8-15 [facility] Comment on above: Order Comment: Speci men Type: BLOOD SPECIMENOrdering Facility: [facility] Address: [address] [place] [address] Performed By: #### 2 4323-8, 2776-06, ####[facility] LABCLIA [id number] [address] [address] [place] AST [Catalytic activity/Vol] 68 U/L High 14-40 [facility] Comment on above: Order Comment: Speci men Type: BLOOD SPECIMENOrdering Facility: [facility] Address: [address] [place] [address] Performed By: #### 2 4323-8, 2776-06, ####[facility] LABCLIA [id number] [address] [address] [place] Bilirubin [Mass/Vol] 0.3 mg/dL Normal 0.2-1.3 [facility] Comment on above: Order Comment: Speci men Type: BLOOD SPECIMENOrdering Facility: [facility] Address: [address] [place] [address] Performed By: #### 2 4323-8, 2776-06, ####[facility] LABCLIA [id number] [place] [id number] [place] Calcium [Mass/Vol] 8.3 mg/dL Low 8.5-10.2 [facility] Comment on above: Order Comment: Speci men Type: BLOOD SPECIMENOrdering Facility: [facility] Address: [address] [place] [address] Performed By: #### 2 4323-8, 2776-06, ####[facility] LABCLIA [id number] [address] [address] [place] Chloride [Moles/Vol] 99 mmol/L Normal 98-107 [facility] Comment on above: Order Comment: Speci men Type: BLOOD SPECIMENOrdering Facility: [facility] Address: [address] [place] [address] Performed By: #### 2 4323-8, 2776-06, ####[facility] LABCLIA [id number] [address] [address] [place] CO2 [Moles/Vol] 26 mmol/L Normal 22-30 [facility] [place] Comment on above: Order Comment: Speci men Type: BLOOD SPECIMENOrdering Facility: [facility] Address: [address] [id number] Performed By: #### 2 4323-8, 2776-06, ####[facility] LABIA [id number] [address] [address] [place] Creatinine [Mass/Vol] 0.92 mg/dL Normal 0.73-1.22 [facility] Comment on above: Order Comment: Speci men Type: BLOOD SPECIMENOrdering Facility: [facility] Address: [address] [place] [address] Performed By: #### 2 4323-8, 2776-06, ####[facility] LABIA [id number] [place] [address] [place] Creatinine and Glomerular filtration rate.predicted panel (S/P/Bld) 88 mL/min/1.73m??? Normal >=60 [facility] [place] Comment on above: Order Comment: Speci men Type: BLOOD SPECIMENOrdering Facility: [facility] Address: [address] [place] [address] Result Comment: Stephanie mated Glomerular Filtration Rate (eGFR) is calculated using the 2020 CKD-EPI creatinine equation. This equation utilizes serum creatinine, sex, and age as parameters. The creatinine assay has traceable calibration to isotope dilution-mass spectrometry. Refer to KDIGO guidelines for clinical interpretation. In patients with unstable renal function, e.g. those with acute kidney injury, the eGFR may not accurately reflect actual GFR. Performed By: #### 2 4323-8, 2776-06, ####[facility] LABIA [id number] [address] [address] [place] Glucose [Mass/Vol] 179 mg/dL High 74-99 [facility] Comment on above: Order Comment: Speci men Type: BLOOD SPECIMENOrdering Facility: [facility] Address: [address] [place], [place] [address] Result Comment: The [place] Diabetes Association (ADA) provides guidance for cutoff values for fasting glucose and random glucose. The ADA defines fasting as no caloric intake for at least 8 hours. Fasting plasma glucose results between 100 to 125 mg/dL indicate increased risk for diabetes (prediabetes).Fasting plasma glucose results greater than or equal to 126 mg/dL meet the criteria for diagnosis of diabetes. In the absence of unequivocal hyperglycemia, results should be confirmed by repeat testing. In a patient with classic symptoms of hyperglycemia or hyperglycemic crisis, random plasma glucose results greater than or equal to 200 mg/dL meet the criteria for diagnosis of diabetes.Reference: Standards of Medical Care in Diabetes 2016, [place] [employer]. Diabetes Care. 2016.39(Suppl 1). Performed By: #### 2 4323-8, 2777-, ####[facility] LABIA [id number] [place] [address] [place] Potassium [Moles/Vol] 4.2 mmol/L Normal 3.7-5.1 [facility] Comment on above: Order Comment: Speci men Type: BLOOD SPECIMENOrdering Facility: [facility] Address: [address] [place] [address] Performed By: #### 2 4323-8, 27712-13, ####[facility] LABIA [id number] [place] [address] [place] Protein [Mass/Vol] 5.0 g/dL Low 6.3-8.0 [facility] Comment on above: Order Comment: Speci men Type: BLOOD SPECIMENOrdering Facility: [facility] Address: [address] [place] [address] Performed By: #### 2 4323-8, 2777, ####[facility] LABIA [id number] [place] [address] [place] Sodium [Moles/Vol] 139 mmol/L Normal 136-144 [facility] Comment on above: Order Comment: Speci men Type: BLOOD SPECIMENOrdering Facility: [facility] Address: [address] [place] [address] Performed By: #### 2 4323-8, 2777-1, 75415-9 ####[facility] LABCLIA [id number] [address] [address] [place] Urea nitrogen [Mass/Vol] 52 mg/dL High 9-24 [facility] [place] Comment on above: Order Comment: Speci men Type: BLOOD SPECIMENOrdering Facility: [facility] Address: [address] [place] [address] Performed By: #### 2 4323-8, 2777-1, ####[facility] LABCLIA [id number] [place] [address] [place] Magnesium SerPl-mCncon 06-15 Magnesium [Mass/Vol] 2.1 mg/dL Normal 1.7-2.3 [facility] Comment on above: Order Comment: Speci men Type: BLOOD SPECIMENOrdering Facility: [facility] Address: [address] [place] [address] Performed By: #### 2 4323-8, 2777-1, ####[facility] LABIA [id number] [place] [address] [place] Phosphate SerPl-mCncon 06-15 Phosphate [Mass/Vol] 5.8 mg/dL High 2.7-4.8 [facility] Comment on above: Order Comment: Speci men Type: BLOOD SPECIMENOrdering Facility: [facility] Address: [address] [place], [place] [id number] Performed By: #### 2 777-1 ####[facility] LABIA [id number] [place] [id number] [place] Phosphate [Mass/Vol] 5.7 mg/dL High 2.7-4.8 [facility] Comment on above: Order Comment: Speci men Type: BLOOD SPECIMENOrdering Facility: [facility] Address: [address] [place], [place] [id number] Result Comment: Resu lt rechecked. Performed By: #### 2 4323-8, 2777-1, 34601-4 ####[facility] LABCLIA [id number] [place] [address] [place] TYPE + SCREENon 06-15-2024 ABO A Normal [facility] [place] Comment on above: Order Comment: Speci men Type: BLOOD SPECIMENOrdering Facility: [facility] Address: [address] [place] [address] Performed By: #### T SCR ####[facility] BLOOD BANKCLIA [id number] [address] [place] Rh Nom (Bld) Positive Normal [facility] [place] Comment on above: Order Comment: Speci men Type: BLOOD SPECIMENOrdering Facility: [facility] Address: [address] [place] [address] Performed By: #### T SCR ####[facility] BLOOD BANKCLIA [id number] [place] [address] [place] TYPE AND SCREEN EXPIRATION 06/18/2024 23:59 Normal [facility] [place] Comment on above: Order Comment: Speci men Type: BLOOD SPECIMENOrdering Facility: [facility] Address: [address] [place] [address] Performed By: #### T SCR ####[facility] BLOOD BANKCLIA [id number] [place] [address] [place] ABO A Normal [facility] [place] Comment on above: Order Comment: Speci men Type: BLOOD SPECIMENOrdering Facility: [facility] Address: [address] [place] [address] Performed By: #### T SCR ####[facility] BLOOD BANKCLIA [id number] [place] [address] [place] Rh Nom (Bld) Positive Normal [facility] [place] Comment on above: Order Comment: Speci men Type: BLOOD SPECIMENOrdering Facility: [facility] Address: [address] [place] [address] Performed By: #### T SCR ####[facility] BLOOD BANKIA [id number] [address] TYPE AND SCREEN EXPIRATION 06/18/2024 23:59 Normal [facility] [place] Comment on above: Order Comment: Speci men Type: BLOOD SPECIMENOrdering Facility: [facility] Address: [address] [place] [address] Performed By: #### T SCR ####[facility]LOOD [facility]ANK[facility] [id number] [address] Tacrolimus Bld-mCncon 2024 Tacrolimus (Bld) [Mass/Vol] 4.4 ng/mL Low 5.0-20.0 [facility] [place] Comment on above: Order Comment: Speci men Type: BLOOD SPECIMENOrdering Facility: [facility] Address: [address] [place] [address] Result Comment: Noreen vidualized target levels for [...] Alinity i. Performed By: #### 1 1253-2 ####[facility] LABCLIA [id number] [address] [place] ARTERIAL BLOOD GASESon 06-14 Base excess Calc (Bld) [Moles/Vol] 4 mmol/L High 0-2 [facility] [place] Comment on above: Order Comment: Speci men Type: ARTERIAL BLOOD SPECIMENOrdering Facility: [facility] Address: [address] [place] [address] Performed By: #### A LLBG ####[facility] LABCLIA [id number] [place] [address] [place] Body temperature 97.34 [degF] Normal [facility] Comment on above: Order Comment: Speci men Type: ARTERIAL BLOOD SPECIMENOrdering Facility: [facility] Address: [address] [place] [address] Performed By: #### A LLBG ####[facility] LABCLIA [id number] [place] [address] [place] Calcium.ionized (Bld) [Mass/Vol] 1.21 mmol/L Normal 1.08-1.30 [facility] [place] Comment on above: Order Comment: Speci men Type: ARTERIAL BLOOD SPECIMENOrdering Facility: [facility] Address: [address] [place] [address] Performed By: #### A LLBG ####[facility] LABCLIA [id number] [place] [address] [place] Calcium.ionized adjusted to pH 7.4 (BldA) [Moles/Vol] 1.22 mmol/L Normal 1.08-1.30 [facility] [place] Comment on above: Order Comment: Speci men Type: ARTERIAL BLOOD SPECIMENOrdering Facility: [facility] Address: [address] [place] [address] Performed By: #### A LLBG ####[facility] LABCLIA [id number] [place] [address] [place] Carboxyhemoglobin (BldA) [Mass fraction] 0.9 % Normal 0.0-2.0 [facility] [place] Comment on above: Order Comment: Speci men Type: ARTERIAL BLOOD SPECIMENOrdering Facility: [facility] Address: [address] [place] [address] Result Comment: Carb oxyhemoglobin Reference Range for Smokers: 2.0-8.0% Performed By: #### A LLBG ####[facility] LABCLIA [id number] [id number] [address] [place] CO2 (Bld) [Partial pressure] 45 mm Hg Normal 36-46 [facility] [place] Comment on above: Order Comment: Speci men Type: ARTERIAL BLOOD SPECIMENOrdering Facility: [facility] Address: [address] [place] [address] Performed By: #### A LLBG ####[facility] LABCLIA [id number] [place] [address] [place] CO2 adjusted to patient's actual temperature (Bld) [Partial pressure] 43 mmHg Normal 36-46 [facility] [place] Comment on above: Order Comment: Speci men Type: ARTERIAL BLOOD SPECIMENOrdering Facility: [facility] Address: [address] [place] [address] Performed By: #### A LLBG ####[facility] LABCLIA [id number] [place] [address] [place] FIO2 40 % Normal [facility] [place] Comment on above: Order Comment: Speci men Type: ARTERIAL BLOOD SPECIMENOrdering Facility: [facility] Address: [address] [place] [address] Performed By: #### A LLBG ####[facility] LABCLIA [id number] [place] [address] [place] Glucose [Mass/Vol] 173 mg/dL High 60-105 [facility] Comment on above: Order Comment: Speci men Type: ARTERIAL BLOOD SPECIMENOrdering Facility: [facility] Address: [address] [place] [address] Performed By: #### A LLBG ####[facility] LABCLIA [id number] [place] [address] [place] HCO3 (Bld) [Moles/Vol] 28 mmol/L High 22-26 [facility] Comment on above: Order Comment: Speci men Type: ARTERIAL BLOOD SPECIMENOrdering Facility: [facility] Address: [address] [place] [address] Performed By: #### A LLBG ####[facility] LABCLIA [id number] [place] [address] [place] Hematocrit (Bld) [Volume fraction] 41.0 % Normal 39.0-51.0 [facility] [place] Comment on above: Order Comment: Speci men Type: ARTERIAL BLOOD SPECIMENOrdering Facility: [facility] Address: [address] [place] [address] Performed By: #### A LLBG ####[facility] LABIA [id number] [place] [address] [place] Hemoglobin (Bld) [Mass/Vol] 13.3 g/dL Normal 13.0-17.0 [facility] Comment on above: Order Comment: Speci men Type: ARTERIAL BLOOD SPECIMENOrdering Facility: [facility] Address: [address] [place] [address] Performed By: #### A LLBG ####[facility] LABIA [id number] [place] [address] [place] Lactate [Moles/Vol] 1.1 mmol/L Normal 0.5-2.2 [facility] Comment on above: Order Comment: Speci men Type: ARTERIAL BLOOD SPECIMENOrdering Facility: [facility] Address: [address] [place] [address] Performed By: #### A LLBG ####[facility] LABIA [id number] [place] [address] [place] Methemoglobin (Bld) [Mass fraction] 0.6 % Normal 0.0-1.5 [facility] Comment on above: Order Comment: Speci men Type: ARTERIAL BLOOD SPECIMENOrdering Facility: [facility] Address: [address] [place] [address] Performed By: #### A LLBG ####[facility] LABIA [id number] [place] [address] [place] O2 THERAPY VENT=Ventilator Normal [facility] Comment on above: Order Comment: Speci men Type: ARTERIAL BLOOD SPECIMENOrdering Facility: [facility] Address: [address] [place] [address] Performed By: #### A LLBG ####[facility] LABCLIA [id number] [address] [address] [place] Oxygen (Bld) [Partial pressure] 105 mm Hg High 85-95 [facility] Comment on above: Order Comment: Speci men Type: ARTERIAL BLOOD SPECIMENOrdering Facility: [facility] Address: [address] [id number] Performed By: #### A LLBG ####[facility] LABCLIA [id number] [place] [address] [place] Oxygen adjusted to patient's actual temperature (Bld) [Partial pressure] 101 mmHg High 85-95 [facility] Comment on above: Order Comment: Speci men Type: ARTERIAL BLOOD SPECIMENOrdering Facility: [facility] Address: [address] [place] [address] Performed By: #### A LLBG ####[facility] LABCLIA [id number] [place] [address] [place] Oxyhemoglobin (BldA) [Mass fraction] 97 % Normal 95-98 [facility] Comment on above: Order Comment: Speci men Type: ARTERIAL BLOOD SPECIMENOrdering Facility: [facility] Address: [address] [place] [address] Performed By: #### A LLBG ####[facility] LABCLIA [id number] [place] [id number] [place] PEEP/CPAP 10 cmH2O Normal [facility] Comment on above: Order Comment: Speci men Type: ARTERIAL BLOOD SPECIMENOrdering Facility: [facility] Address: [address] [id number] Performed By: #### A LLBG ####[facility] LABCLIA [id number] [place] [id number] [place] pH (Bld) 7.42 [pH] Normal 7.35-7.45 [facility] Comment on above: Order Comment: Speci men Type: ARTERIAL BLOOD SPECIMENOrdering Facility: [facility] Address: [address] [place] [address] Performed By: #### A LLBG ####[facility] LABCLIA [id number] [place] [address] [place] pH adjusted to patient's actual temperature (Bld) 7.43 Normal 7.35-7.45 [facility] Comment on above: Order Comment: Speci men Type: ARTERIAL BLOOD SPECIMENOrdering Facility: [facility] Address: [address] [place] [address] Performed By: #### A LLBG ####[facility] LABCLIA [id number] [place] [address] [place] PO2 / FIO2 RATIO 263 mmHg Low >300 [facility] Comment on above: Order Comment: Speci men Type: ARTERIAL BLOOD SPECIMENOrdering Facility: [facility] Address: [address] [place] [address] Performed By: #### A LLBG ####[facility] LABCLIA [id number] [place] [address] [place] Potassium [Moles/Vol] 3.7 mmol/L Normal 3.5-5.0 [facility] Comment on above: Order Comment: Speci men Type: ARTERIAL BLOOD SPECIMENOrdering Facility: [facility] Address: [address] [place] [address] Performed By: #### A LLBG ####[facility] LABCLIA [id number] [place] [address] [place] Sodium [Moles/Vol] 136 mmol/L Normal 136-144 [facility] Comment on above: Order Comment: Speci men Type: ARTERIAL BLOOD SPECIMENOrdering Facility: [facility] Address: [address] [place] [address] Performed By: #### A LLBG ####[facility] LABCLIA [id number] [place] [address] [place] CBC panel Auto (Bld)on 06-14 Erythrocyte distribution width (RBC) [Ratio] 14.8 % Normal 11.5-15.0 [facility] Comment on above: Order Comment: Speci men Type: BLOOD SPECIMENOrdering Facility: [facility] Address: [address] [place] [address] Performed By: #### 5 8410-2 ####[facility] LABCLIA [id number] [place] [address] [place] Hematocrit (Bld) [Volume fraction] 38.0 % Low 39.0-51.0 [facility] Comment on above: Order Comment: Speci men Type: BLOOD SPECIMENOrdering Facility: [facility] Address: [address] [place] [address] Performed By: #### 5 8410-2 ####[facility] LABIA [id number] [place] [address] [place] Hemoglobin (Bld) [Mass/Vol] 12.8 g/dL Low 13.0-17.0 [facility] Comment on above: Order Comment: Speci men Type: BLOOD SPECIMENOrdering Facility: [facility] Address: [address] [place] [address] Performed By: #### 5 8410-2 ####[facility] LABCLIA [id number] [place] [id number] [place] MCH (RBC) [Entitic mass] 30.3 pg Normal 26.0-34.0 [facility] Comment on above: Order Comment: Speci men Type: BLOOD SPECIMENOrdering Facility: [facility] Address: [address] [place] [address] Performed By: #### 5 8410-2 ####[facility] LABCLIA [id number] [place] [address] [place] MCHC (RBC) [Mass/Vol] 33.7 g/dL Normal 30.5-36.0 [facility] Comment on above: Order Comment: Speci men Type: BLOOD SPECIMENOrdering Facility: [facility] Address: [address] [place] [address] Performed By: #### 5 8410-2 ####[facility] [id number] [place] [address] [place] MCV (RBC) [Entitic vol] 90.0 fL Normal 80.0-100.0 [facility] Comment on above: Order Comment: Speci men Type: BLOOD SPECIMENOrdering Facility: [facility] Address: [address] [place] [address] Performed By: #### 5 8410-2 ####[facility] [id number] [place] [address] [place] Nucleated RBC (Bld) [#/Vol] 10*3/uL Normal <0.01 [facility] Comment on above: Order Comment: Speci men Type: BLOOD SPECIMENOrdering Facility: [facility] Address: [address] [place] [address] Performed By: #### 5 8410-2 ####[facility] [id number] [place] [address] [place] Platelet mean volume (Bld) [Entitic vol] 9.7 fL Normal 9.0-12.7 [facility] Comment on above: Order Comment: Speci men Type: BLOOD SPECIMENOrdering Facility: [facility] Address: [address] [place] [address] Performed By: #### 5 8410-2 ####[facility] LABIA [id number] [place] [address] [place] Platelets (Bld) [#/Vol] 229 10*3/uL Normal 150-400 [facility] Comment on above: Order Comment: Speci men Type: BLOOD SPECIMENOrdering Facility: [facility] Address: [address] [place] [address] Performed By: #### 5 8410-2 ####[facility] LABCLIA [id number] [place] [address] [place] RBC (Bld) [#/Vol] 4.22 10*6/uL Normal 4.20-6.00 [facility] Comment on above: Order Comment: Speci men Type: BLOOD SPECIMENOrdering Facility: [facility] Address: [address] [place] [address] Performed By: #### 5 8410-2 ####[facility] LABCLIA [id number] [place] [address] [place] WBC (Bld) [#/Vol] 13.85 10*3/uL High 3.70-11.00 [facility] Comment on above: Order Comment: Speci men Type: BLOOD SPECIMENOrdering Facility: [facility] Address: [address] [place] [address] Performed By: #### 5 8410-2 ####[facility] LABCLIA [id number] [place] [address] [place] CONSULT PROGon 06-14-2024 CONSULT PROG Normal [facility] Comprehensive metabolic 2000 panelon 06-14-2024 Albumin [Mass/Vol] 2.7 g/dL Low 3.9-4.9 [facility] Comment on above: Order Comment: Speci men Type: BLOOD SPECIMENOrdering Facility: [facility] Address: [address] [place] [address] Performed By: #### 1 9123-9, 2777-1, 50688-8 ####[facility] LABCLIA [id number] [place] [address] [place] ALP [Catalytic activity/Vol] 108 U/L Normal 38-113 [facility] Comment on above: Order Comment: Speci men Type: BLOOD SPECIMENOrdering Facility: [facility] Address: [address] [place] [address] Performed By: #### 1 9123-9, 2776-06, ####[facility] LABCLIA [id number] [place] [address] [place] ALT [Catalytic activity/Vol] 83 U/L High 10-54 [facility] Comment on above: Order Comment: Speci men Type: BLOOD SPECIMENOrdering Facility: [facility] Address: [address] [place] [address] Performed By: #### 1 9123-9, 2776-06, ####[facility] LABCLIA [id number] [place] [address] [place] Anion gap [Moles/Vol] 14 mmol/L Normal 8-15 [facility] Comment on above: Order Comment: Speci men Type: BLOOD SPECIMENOrdering Facility: [facility] Address: [address] [place] [address] Performed By: #### 1 9123-9, 2776-06, ####[facility] LABCLIA [id number] [place] [address] [place] AST [Catalytic activity/Vol] 67 U/L High 14-40 [facility] Comment on above: Order Comment: Speci men Type: BLOOD SPECIMENOrdering Facility: [facility] Address: [address] [place] [address] Performed By: #### 1 9123-9, 2776-06, ####[facility] LABCLIA [id number] [place] [id number] [place] Bilirubin [Mass/Vol] 0.3 mg/dL Normal 0.2-1.3 [facility] Comment on above: Order Comment: Speci men Type: BLOOD SPECIMENOrdering Facility: [facility] Address: [address] [place] [id number] Performed By: #### 1 9123-9, 27712-13, ####[facility] LABCLIA [id number] [address] [address] [place] Calcium [Mass/Vol] 8.5 mg/dL Normal 8.5-10.2 [facility] Comment on above: Order Comment: Speci men Type: BLOOD SPECIMENOrdering Facility: [facility] Address: [address] [place], [place] [address] Performed By: #### 1 9123-9, 27712-13, ####[facility] LABCLIA [id number] [place] [address] [place] Chloride [Moles/Vol] 101 mmol/L Normal 98-107 [facility] Comment on above: Order Comment: Speci men Type: BLOOD SPECIMENOrdering Facility: [facility] Address: [address] [place] [address] Performed By: #### 1 9123-9, 2776-06, ####[facility] LABCLIA [id number] [place] [address] [place] CO2 [Moles/Vol] 24 mmol/L Normal 22-30 [facility] Comment on above: Order Comment: Speci men Type: BLOOD SPECIMENOrdering Facility: [facility] Address: [address] [place], [place] [address] Performed By: #### 1 9123-9, 27712-13, ####[facility] LABCLIA [id number] [place] [id number] [place] Creatinine [Mass/Vol] 0.87 mg/dL Normal 0.73-1.22 [facility] Comment on above: Order Comment: Speci men Type: BLOOD SPECIMENOrdering Facility: [facility] Address: [address] [place] [address] Performed By: #### 1 9123-9, 2777-1, 81300-8 ####[facility] LABIA [id number] [place] [address] [place] Creatinine and Glomerular filtration rate.predicted panel (S/P/Bld) 92 mL/min/1.73m??? Normal >=60 [facility] [place] Comment on above: Order Comment: Allegra donis Type: BLOOD SPECIMENOrdering Facility: [facility] Address: [address] [place] [address] Result Comment: Stephanie mated Glomerular Filtration Rate (eGFR) is calculated using the 2020 CKD-EPI creatinine equation. This equation utilizes serum creatinine, sex, and age as parameters. The creatinine assay has traceable calibration to isotope dilution-mass spectrometry. Refer to KDIGO guidelines for clinical interpretation. In patients with unstable renal function, e.g. those with acute kidney injury, the eGFR may not accurately reflect actual GFR. Performed By: #### 1 9123-9, 2777-1, 78038-8 ####[facility] LABIA [id number] [place] [address] [place] Glucose [Mass/Vol] 189 mg/dL High 74-99 [facility] Comment on above: Order Comment: Allegra donis Type: BLOOD SPECIMENOrdering Facility: [facility] Address: [address] [place] [address] Result Comment: The [place] Diabetes [employer] (ADA) provides guidance for cutoff values for fasting glucose and random glucose. The ADA defines fasting as no caloric intake for at least 8 hours. Fasting plasma glucose results between 100 to 125 mg/dL indicate increased risk for diabetes (prediabetes).Fasting plasma glucose results greater than or equal to 126 mg/dL meet the criteria for diagnosis of diabetes. In the absence of unequivocal hyperglycemia, results should be confirmed by repeat testing. In a patient with classic symptoms of hyperglycemia or hyperglycemic crisis, random plasma glucose results greater than or equal to 200 mg/dL meet the criteria for diagnosis of diabetes.Reference: Standards of Medical Care in Diabetes 2016, [place] [employer]. Diabetes Care. 2016.39(Suppl 1). Performed By: #### 1 9123-9, 2776-06, ####[facility] LABCLIA [id number] [address] [address] [place] Potassium [Moles/Vol] 4.1 mmol/L Normal 3.7-5.1 [facility] Comment on above: Order Comment: Speci men Type: BLOOD SPECIMENOrdering Facility: [facility] Address: [address] [place] [address] Performed By: #### 1 9123-9, 2776-06, ####[facility] LABIA [id number] [place] [address] [place] Protein [Mass/Vol] 5.0 g/dL Low 6.3-8.0 [facility] Comment on above: Order Comment: Speci men Type: BLOOD SPECIMENOrdering Facility: [facility] Address: [address] [place] [address] Performed By: #### 1 9123-9, 2776-06, ####[facility] LABIA [id number] [place] [address] [place] Sodium [Moles/Vol] 139 mmol/L Normal 136-144 [facility] Comment on above: Order Comment: Speci men Type: BLOOD SPECIMENOrdering Facility: [facility] Address: [address] [place] [address] Performed By: #### 1 9123-9, 2776-06, ####[facility] LABIA [id number] [address] [address] [place] Urea nitrogen [Mass/Vol] 42 mg/dL High 9-24 [facility] [place] Comment on above: Order Comment: Speci men Type: BLOOD SPECIMENOrdering Facility: [facility] Address: [address] [place], [place] [id number] Performed By: #### 1 9123-9, 2776-06, ####[facility] LABCLIA [id number] [place] [id number] [place] [facility] Magnesium [Mass/Vol] 2.0 mg/dL Normal 1.7-2.3 [facility] Comment on above: Order Comment: Speci men Type: BLOOD SPECIMENOrdering Facility: [facility] Address: [address] [place] [address] Performed By: #### 1 9123-9, 2777-1, 46327-6 ####[facility] LABCLIA [id number] [place] [address] [place] NUTRITIONon 06-14-2024 NUTRITION Normal [facility] Phosphate SerPl-[facility] 06-14 Phosphate [Mass/Vol] 3.3 mg/dL Normal 2.7-4.8 [facility] Comment on above: Order Comment: Speci men Type: BLOOD SPECIMENOrdering Facility: [facility] Address: [address] [place] [address] Performed By: #### 1 9123-9, 2777, ####[facility] LABCLIA [id number] [place] [address] [place] THERAPY NTon 06-14-2024 THERAPY NT Normal [facility] Tacrolimus Bld-ncon 2023 Tacrolimus (Bld) [Mass/Vol] 4.6 ng/mL Low 5.0-20.0 [facility] Comment on above: Order Comment: Speci men Type: BLOOD SPECIMENOrdering Facility: [facility] Address: [address] [place] [address] Result Comment: Noreen vidualized target levels for [...] situation. Test performed by chemiluminescent immunoassay using [employer] i. Performed By: #### 1 1253-2 ####[facility] LABCLIA [id number] [place] [address] [place] XR ABDOMEN 1V SUPINEon 06-14 XR ABDOMEN 1V SUPINE Normal [facility] XR CHEST 1V FRONTAL PORTon 1 XR CHEST 1V FRONTAL PORT Normal [facility] XR CHEST 1V FRONTAL PORT Normal [facility] ARTERIAL BLOOD GASESon 06-13 Base excess Calc (Bld) [Moles/Vol] 5 mmol/L High 0-2 [facility] Comment on above: Order Comment: Speci men Type: ARTERIAL BLOOD SPECIMENOrdering Facility: [facility] Address: [address] [place] [address] Performed By: #### A LLBG ####[facility] LABCLIA [id number] [place] [address] [place] Body temperature 98.6 [degF] Normal [facility] Comment on above: Order Comment: Speci men Type: ARTERIAL BLOOD SPECIMENOrdering Facility: [facility] Address: [address] [place] [address] Performed By: #### A LLBG ####[facility] LABCLIA [id number] [place] [address] [place] Calcium.ionized (Bld) [Mass/Vol] 1.18 mmol/L Normal 1.08-1.30 [facility] Comment on above: Order Comment: Speci men Type: ARTERIAL BLOOD SPECIMENOrdering Facility: [facility] Address: [address] [place] [address] Performed By: #### A LLBG ####[facility] LABCLIA [id number] [place] [address] [place] Calcium.ionized adjusted to pH 7.4 (BldA) [Moles/Vol] 1.23 mmol/L Normal 1.08-1.30 [facility] Comment on above: Order Comment: Speci men Type: ARTERIAL BLOOD SPECIMENOrdering Facility: [facility] Address: [address] [place] [address] Performed By: #### A LLBG ####[facility] LABCLIA [id number] [place] [address] [place] Carboxyhemoglobin (BldA) [Mass fraction] 0.8 % Normal 0.0-2.0 [facility] Comment on above: Order Comment: Speci men Type: ARTERIAL BLOOD SPECIMENOrdering Facility: [facility] Address: [address] [place] [address] Result Comment: Carb oxyhemoglobin Reference Range for Smokers: 2.0-8.0% Performed By: #### A LLBG ####[facility] LABCLIA [id number] [place] [address] [place] CO2 (Bld) [Partial pressure] 39 mm Hg Normal 36-46 [facility] Comment on above: Order Comment: Speci men Type: ARTERIAL BLOOD SPECIMENOrdering Facility: [facility] Address: [address] [place] [address] Performed By: #### A LLBG ####[facility] LABCLIA [id number] [place] [address] [place] FIO2 40 % Normal [facility] Comment on above: Order Comment: Speci men Type: ARTERIAL BLOOD SPECIMENOrdering Facility: [facility] Address: [address] [place] [address] Performed By: #### A LLBG ####[facility] LABCLIA [id number] [place] [address] [place] Glucose [Mass/Vol] 175 mg/dL High 60-105 [facility] Comment on above: Order Comment: Speci men Type: ARTERIAL BLOOD SPECIMENOrdering Facility: [facility] Address: [address] [place] [address] Performed By: #### A LLBG ####[facility] LABCLIA [id number] [place] [address] [place] HCO3 (Bld) [Moles/Vol] 28 mmol/L High 22-26 [facility] Comment on above: Order Comment: Speci men Type: ARTERIAL BLOOD SPECIMENOrdering Facility: [facility] Address: [address] [place] [address] Performed By: #### A LLBG ####[facility] LABCLIA [id number] [place] [address] [place] Hematocrit (Bld) [Volume fraction] 39.8 % Normal 39.0-51.0 [facility] Comment on above: Order Comment: Speci men Type: ARTERIAL BLOOD SPECIMENOrdering Facility: [facility] Address: [address] [place] [address] Performed By: #### A LLBG ####[facility] LABCLIA [id number] [place] [address] [place] Hemoglobin (Bld) [Mass/Vol] 12.9 g/dL Low 13.0-17.0 [facility] Comment on above: Order Comment: Speci men Type: ARTERIAL BLOOD SPECIMENOrdering Facility: [facility] Address: [address] [place] [address] Performed By: #### A LLBG ####[facility] LABCLIA [id number] [place] [address] [place] Lactate [Moles/Vol] 1.4 mmol/L Normal 0.5-2.2 [facility] Comment on above: Order Comment: Speci men Type: ARTERIAL BLOOD SPECIMENOrdering Facility: [facility] Address: [address] [place] [address] Performed By: #### A LLBG ####[facility] LABCLIA [id number] [place] [address] [place] Methemoglobin (Bld) [Mass fraction] 0.8 % Normal 0.0-1.5 [facility] Comment on above: Order Comment: Speci men Type: ARTERIAL BLOOD SPECIMENOrdering Facility: [facility] Address: [address] [place] [address] Performed By: #### A LLBG ####[facility] LABCLIA [id number] [place] [address] [place] O2 THERAPY VENT=Ventilator Normal [facility] Comment on above: Order Comment: Speci men Type: ARTERIAL BLOOD SPECIMENOrdering Facility: [facility] Address: [address] [place] [address] Performed By: #### A LLBG ####[facility] LABCLIA [id number] [place] [address] [place] Oxygen (Bld) [Partial pressure] 99 mm Hg High 85-95 [facility] Comment on above: Order Comment: Speci men Type: ARTERIAL BLOOD SPECIMENOrdering Facility: [facility] Address: [address] [place] [address] Performed By: #### A LLBG ####[facility] LABCLIA [id number] [place] [address] [place] Oxyhemoglobin (BldA) [Mass fraction] 97 % Normal 95-98 [facility] Comment on above: Order Comment: Speci men Type: ARTERIAL BLOOD SPECIMENOrdering Facility: [facility] Address: [address] [place] [address] Performed By: #### A LLBG ####[facility] LABCLIA [id number] [place] [address] [place] pH (Bld) 7.47 [pH] High 7.35-7.45 [facility] Comment on above: Order Comment: Speci men Type: ARTERIAL BLOOD SPECIMENOrdering Facility: [facility] Address: [address] [place] [address] Performed By: #### A LLBG ####[facility] LABCLIA [id number] [place] [address] [place] PO2 / FIO2 RATIO 248 mmHg Low >300 [facility] Comment on above: Order Comment: Speci men Type: ARTERIAL BLOOD SPECIMENOrdering Facility: [facility] Address: [address] [place] [address] Performed By: #### A LLBG ####[facility] LABCLIA [id number] [place] [address] [place] Potassium [Moles/Vol] 3.9 mmol/L Normal 3.5-5.0 [facility] Comment on above: Order Comment: Speci men Type: ARTERIAL BLOOD SPECIMENOrdering Facility: [facility] Address: [address] [place] [address] Performed By: #### A LLBG ####[facility] LABCLIA [id number] [place] [address] [place] Sodium [Moles/Vol] 137 mmol/L Normal 136-144 [facility] Comment on above: Order Comment: Speci men Type: ARTERIAL BLOOD SPECIMENOrdering Facility: [facility] Address: [address] [place] [address] Performed By: #### A LLBG ####[facility] LABCLIA [id number] [place] [address] [place] Base excess Calc (Bld) [Moles/Vol] 4 mmol/L High 0-2 [facility] Comment on above: Order Comment: Speci men Type: ARTERIAL BLOOD SPECIMENOrdering Facility: [facility] Address: [address] [place], [place] [address] Performed By: #### A LLBG ####[facility] LABCLIA [id number] [place] [address] [place] Body temperature 98.6 [degF] Normal [facility] Comment on above: Order Comment: Speci men Type: ARTERIAL BLOOD SPECIMENOrdering Facility: [facility] Address: [address] [place] [address] Performed By: #### A LLBG ####[facility] [id number] [place] [address] [place] Calcium.ionized (Bld) [Mass/Vol] 1.23 mmol/L Normal 1.08-1.30 [facility] Comment on above: Order Comment: Speci men Type: ARTERIAL BLOOD SPECIMENOrdering Facility: [facility] Address: [address] [place] [address] Performed By: #### A LLBG ####[facility] [id number] [place] [address] [place] Calcium.ionized adjusted to pH 7.4 (BldA) [Moles/Vol] 1.26 mmol/L Normal 1.08-1.30 [facility] Comment on above: Order Comment: Speci men Type: ARTERIAL BLOOD SPECIMENOrdering Facility: [facility] Address: [address] [place] [address] Performed By: #### A LLBG ####[facility] [id number] [place] [address] [place] Carboxyhemoglobin (BldA) [Mass fraction] 0.7 % Normal 0.0-2.0 [facility] Comment on above: Order Comment: Speci men Type: ARTERIAL BLOOD SPECIMENOrdering Facility: [facility] Address: [address] [place] [address] Result Comment: Carb oxyhemoglobin Reference Range for Smokers: 2.0-8.0% Performed By: #### A LLBG ####[facility] [id number] [place] [address] [place] CO2 (Bld) [Partial pressure] 43 mm Hg Normal 36-46 [facility] Comment on above: Order Comment: Speci men Type: ARTERIAL BLOOD SPECIMENOrdering Facility: [facility] Address: [address] [place] [address] Performed By: #### A LLBG ####[facility] LABCLIA [id number] [place] [address] [place] FIO2 50 % Normal [facility] Comment on above: Order Comment: Speci men Type: ARTERIAL BLOOD SPECIMENOrdering Facility: [facility] Address: [address] [place] [address] Performed By: #### A LLBG ####[facility] LABCLIA [id number] [place] [address] [place] Glucose [Mass/Vol] 146 mg/dL High 60-105 [facility] Comment on above: Order Comment: Speci men Type: ARTERIAL BLOOD SPECIMENOrdering Facility: [facility] Address: [address] [place] [address] Performed By: #### A LLBG ####[facility] LABCLIA [id number] [place] [address] [place] HCO3 (Bld) [Moles/Vol] 29 mmol/L High 22-26 [facility] Comment on above: Order Comment: Speci men Type: ARTERIAL BLOOD SPECIMENOrdering Facility: [facility] Address: [address] [place] [address] Performed By: #### A LLBG ####[facility] LABCLIA [id number] [place] [address] [place] Hematocrit (Bld) [Volume fraction] 39.8 % Normal 39.0-51.0 [facility] Comment on above: Order Comment: Speci men Type: ARTERIAL BLOOD SPECIMENOrdering Facility: [facility] Address: [address] [place] [address] Performed By: #### A LLBG ####[facility] LABCLIA [id number] [place] [address] [place] Hemoglobin (Bld) [Mass/Vol] 12.9 g/dL Low 13.0-17.0 [facility] Comment on above: Order Comment: Speci men Type: ARTERIAL BLOOD SPECIMENOrdering Facility: [facility] Address: [address] [place] [address] Performed By: #### A LLBG ####[facility] LABCLIA [id number] [place] [id number] [place] Lactate [Moles/Vol] 1.0 mmol/L Normal 0.5-2.2 [facility] Comment on above: Order Comment: Speci men Type: ARTERIAL BLOOD SPECIMENOrdering Facility: [facility] Address: [address] [place] [address] Performed By: #### A LLBG ####[facility] LABCLIA [id number] [place] [address] [place] Methemoglobin (Bld) [Mass fraction] 0.7 % Normal 0.0-1.5 [facility] Comment on above: Order Comment: Speci men Type: ARTERIAL BLOOD SPECIMENOrdering Facility: [facility] Address: [address] [place] [address] Performed By: #### A LLBG ####[facility] LABIA [id number] [place] [address] [place] O2 THERAPY VENT=Ventilator Normal [facility] Comment on above: Order Comment: Speci men Type: ARTERIAL BLOOD SPECIMENOrdering Facility: [facility] Address: [address] [place] [address] Performed By: #### A LLBG ####[facility] LABCLIA [id number] [place] [id number] [place] Oxygen (Bld) [Partial pressure] 133 mm Hg High 85-95 [facility] Comment on above: Order Comment: Speci men Type: ARTERIAL BLOOD SPECIMENOrdering Facility: [facility] Address: [address] [place], [place] [address] Performed By: #### A LLBG ####[facility] LABCLIA [id number] [place] [address] [place] Oxyhemoglobin (BldA) [Mass fraction] 98 % Normal 95-98 [facility] Comment on above: Order Comment: Speci men Type: ARTERIAL BLOOD SPECIMENOrdering Facility: [facility] Address: [address] [place] [address] Performed By: #### A LLBG ####[facility]CLIA [id number] [place] [address] [place] pH (Bld) 7.44 [pH] Normal 7.35-7.45 [facility] Comment on above: Order Comment: Speci men Type: ARTERIAL BLOOD SPECIMENOrdering Facility: [facility] Address: [address] [place] [address] Performed By: #### A LLBG ####[facility] LABCLIA [id number] [place] [address] [place] PO2 / FIO2 RATIO 266 mmHg Low >300 [facility] Comment on above: Order Comment: Speci men Type: ARTERIAL BLOOD SPECIMENOrdering Facility: [facility] Address: [address] [place] [address] Performed By: #### A LLBG ####[facility] LABCLIA [id number] [place] [address] [place] Potassium [Moles/Vol] 3.9 mmol/L Normal 3.5-5.0 [facility] Comment on above: Order Comment: Speci men Type: ARTERIAL BLOOD SPECIMENOrdering Facility: [facility] Address: [address] [place] [address] Performed By: #### A LLBG ####[facility] LABCLIA [id number] [place] [address] [place] Sodium [Moles/Vol] 139 mmol/L Normal 136-144 [facility] Comment on above: Order Comment: Speci men Type: ARTERIAL BLOOD SPECIMENOrdering Facility: [facility] Address: [address] [place] [address] Performed By: #### A LLBG ####[facility]CLIA [id number] [place] [address] [place] Base excess Calc (Bld) [Moles/Vol] 4 mmol/L High 0-2 [facility] Comment on above: Order Comment: Speci men Type: ARTERIAL BLOOD SPECIMENOrdering Facility: [facility] Address: [address] [place] [address] Performed By: #### A LLBG ####[facility] LABIA [id number] [place] [address] [place] Body temperature 98.6 [degF] Normal [facility] Comment on above: Order Comment: Speci men Type: ARTERIAL BLOOD SPECIMENOrdering Facility: [facility] Address: [address] [place] [address] Performed By: #### A LLBG ####[facility] LABIA [id number] [place] [address] [place] Calcium.ionized (Bld) [Mass/Vol] 1.24 mmol/L Normal 1.08-1.30 [facility] Comment on above: Order Comment: Speci men Type: ARTERIAL BLOOD SPECIMENOrdering Facility: [facility] Address: [address] [place] [address] Performed By: #### A LLBG ####[facility] LABIA [id number] [place] [address] [place] Calcium.ionized adjusted to pH 7.4 (BldA) [Moles/Vol] 1.27 mmol/L Normal 1.08-1.30 [facility] Comment on above: Order Comment: Speci men Type: ARTERIAL BLOOD SPECIMENOrdering Facility: [facility] Address: [address] [place] [address] Performed By: #### A LLBG ####[facility]CLIA [id number] [place] [address] [place] Carboxyhemoglobin (BldA) [Mass fraction] 0.8 % Normal 0.0-2.0 [facility] Comment on above: Order Comment: Speci men Type: ARTERIAL BLOOD SPECIMENOrdering Facility: [facility] Address: [address] [place] [address] Result Comment: Carb oxyhemoglobin Reference Range for Smokers: 2.0-8.0% Performed By: #### A LLBG ####[facility]CLIA [id number] [place] [address] [place] CO2 (Bld) [Partial pressure] 42 mm Hg Normal 36-46 [facility] Comment on above: Order Comment: Speci men Type: ARTERIAL BLOOD SPECIMENOrdering Facility: [facility] Address: [address] [place] [address] Performed By: #### A LLBG ####[facility]CLIA [id number] [place] [address] [place] FIO2 50 % Normal [facility] Comment on above: Order Comment: Speci men Type: ARTERIAL BLOOD SPECIMENOrdering Facility: [facility] Address: [address] [place] [address] Performed By: #### A LLBG ####[facility]CLIA [id number] [place] [address] [place] Glucose [Mass/Vol] 152 mg/dL High 60-105 [facility] Comment on above: Order Comment: Speci men Type: ARTERIAL BLOOD SPECIMENOrdering Facility: [facility] Address: [address] [place] [address] Performed By: #### A LLBG ####[facility]CL[facility] [id number] [place] [address] [place] HCO3 (Bld) [Moles/Vol] 28 mmol/L High 22-26 [facility] Comment on above: Order Comment: Speci men Type: ARTERIAL BLOOD SPECIMENOrdering Facility: [facility] Address: [address] [place] [address] Performed By: #### A LLBG ####[facility] LABCLIA [id number] [place] [address] [place] Hematocrit (Bld) [Volume fraction] 38.6 % Low 39.0-51.0 [facility] [place] Comment on above: Order Comment: Speci men Type: ARTERIAL BLOOD SPECIMENOrdering Facility: [facility] Address: [address] [place] [address] Performed By: #### A LLBG ####[facility]CLIA [id number] [place] [address] [place] Hemoglobin (Bld) [Mass/Vol] 12.5 g/dL Low 13.0-17.0 [facility] [place] Comment on above: Order Comment: Speci men Type: ARTERIAL BLOOD SPECIMENOrdering Facility: [facility] Address: [address] [place] [address] Performed By: #### A LLBG ####[facility] LABCLIA [id number] [place] [address] [place] Lactate [Moles/Vol] 1.2 mmol/L Normal 0.5-2.2 [facility] Comment on above: Order Comment: Speci men Type: ARTERIAL BLOOD SPECIMENOrdering Facility: [facility] Address: [address] [place] [address] Performed By: #### A LLBG ####[facility]CLIA [id number] [place] [address] [place] Methemoglobin (Bld) [Mass fraction] 0.7 % Normal 0.0-1.5 [facility] [place] Comment on above: Order Comment: Speci men Type: ARTERIAL BLOOD SPECIMENOrdering Facility: [facility] Address: [address] [place] [address] Performed By: #### A LLBG ####[facility]CLIA [id number] [place] [address] [place] O2 THERAPY VENT=Ventilator Normal [facility] [place] Comment on above: Order Comment: Speci men Type: ARTERIAL BLOOD SPECIMENOrdering Facility: [facility] Address: [address] [place] [address] Performed By: #### A LLBG ####[facility] LABCLIA [id number] [place] [address] [place] Oxygen (Bld) [Partial pressure] 119 mm Hg High 85-95 [facility] [place] Comment on above: Order Comment: Speci men Type: ARTERIAL BLOOD SPECIMENOrdering Facility: [facility] Address: [address] [place] [address] Performed By: #### A LLBG ####[facility]CLIA [id number] [place] [address] [place] Oxyhemoglobin (BldA) [Mass fraction] 97 % Normal 95-98 [facility] [place] Comment on above: Order Comment: Speci men Type: ARTERIAL BLOOD SPECIMENOrdering Facility: [facility] Address: [address] [place] [address] Performed By: #### A LLBG ####[facility]CLIA [id number] [place] [address] [place] pH (Bld) 7.44 [pH] Normal 7.35-7.45 [facility] [place] Comment on above: Order Comment: Speci men Type: ARTERIAL BLOOD SPECIMENOrdering Facility: [facility] Address: [address] [place] [address] Performed By: #### A LLBG ####[facility] LABIA [id number] [place] [address] [place] PO2 / FIO2 RATIO 238 mmHg Low >300 [facility] Comment on above: Order Comment: Speci men Type: ARTERIAL BLOOD SPECIMENOrdering Facility: [facility] Address: [address] [place] [address] Performed By: #### A LLBG ####[facility]CLIA [id number] [place] [address] [place] Potassium [Moles/Vol] 3.9 mmol/L Normal 3.5-5.0 [facility] Comment on above: Order Comment: Speci men Type: ARTERIAL BLOOD SPECIMENOrdering Facility: [facility] Address: [address] [place] [address] Performed By: #### A LLBG ####[facility]CLIA [id number] [place] [address] [place] Sodium [Moles/Vol] 139 mmol/L Normal 136-144 [facility] Comment on above: Order Comment: Speci men Type: ARTERIAL BLOOD SPECIMENOrdering Facility: [facility] Address: [address] [place] [address] Performed By: #### A LLBG ####[facility]CLIA [id number] [place] [address] [place] Base excess Calc (Bld) [Moles/Vol] 4 mmol/L High 0-2 [facility] [place] Comment on above: Order Comment: Speci men Type: ARTERIAL BLOOD SPECIMENOrdering Facility: [facility] Address: [address] [place] [address] Performed By: #### A LLBG ####[facility]CLIA [id number] [place] [address] [place] Body temperature 98.6 [degF] Normal [facility] Comment on above: Order Comment: Speci men Type: ARTERIAL BLOOD SPECIMENOrdering Facility: [facility] Address: [address] [place] [address] Performed By: #### A LLBG ####[facility] LABCLIA [id number] [place] [address] [place] Calcium.ionized (Bld) [Mass/Vol] 1.18 mmol/L Normal 1.08-1.30 [facility] [place] Comment on above: Order Comment: Speci men Type: ARTERIAL BLOOD SPECIMENOrdering Facility: [facility] Address: [address] [place] [address] Performed By: #### A LLBG ####[facility] LABCLIA [id number] [place] [address] [place] Calcium.ionized adjusted to pH 7.4 (BldA) [Moles/Vol] 1.19 mmol/L Normal 1.08-1.30 [facility] [place] Comment on above: Order Comment: Speci men Type: ARTERIAL BLOOD SPECIMENOrdering Facility: [facility] Address: [address] [place] [address] Performed By: #### A LLBG ####[facility]CLIA [id number] [place] [address] [place] Carboxyhemoglobin (BldA) [Mass fraction] 1.3 % Normal 0.0-2.0 [facility] [place] Comment on above: Order Comment: Speci men Type: ARTERIAL BLOOD SPECIMENOrdering Facility: [facility] Address: [address] [place] [address] Result Comment: Carb oxyhemoglobin Reference Range for Smokers: 2.0-8.0% Performed By: #### A LLBG ####[facility] LABCLIA [id number] [place] [address] [place] CO2 (Bld) [Partial pressure] 46 mm Hg Normal 36-46 [facility] [place] Comment on above: Order Comment: Speci men Type: ARTERIAL BLOOD SPECIMENOrdering Facility: [facility] Address: [address] [place] [address] Performed By: #### A LLBG ####[facility]CLIA [id number] [place] [address] [place] FIO2 50 % Normal [facility] [place] Comment on above: Order Comment: Speci men Type: ARTERIAL BLOOD SPECIMENOrdering Facility: [facility] Address: [address] [place] [address] Performed By: #### A LLBG ####[facility]CLIA [id number] [place] [address] [place] Glucose [Mass/Vol] 140 mg/dL High 60-105 [facility] Comment on above: Order Comment: Speci men Type: ARTERIAL BLOOD SPECIMENOrdering Facility: [facility] Address: [address] [place] [address] Performed By: #### A LLBG ####[facility]CLIA [id number] [place] [address] [place] HCO3 (Bld) [Moles/Vol] 29 mmol/L High 22-26 [facility] Comment on above: Order Comment: Speci men Type: ARTERIAL BLOOD SPECIMENOrdering Facility: [facility] Address: [address] [place] [address] Performed By: #### A LLBG ####[facility] LABCLIA [id number] [place] [address] [place] Hematocrit (Bld) [Volume fraction] 39.7 % Normal 39.0-51.0 [facility] [place] Comment on above: Order Comment: Speci men Type: ARTERIAL BLOOD SPECIMENOrdering Facility: [facility] Address: [address] [place] [address] Performed By: #### A LLBG ####[facility] LABCLIA [id number] [place] [address] [place] Hemoglobin (Bld) [Mass/Vol] 12.9 g/dL Low 13.0-17.0 [facility] [place] Comment on above: Order Comment: Speci men Type: ARTERIAL BLOOD SPECIMENOrdering Facility: [facility] Address: [address] [place] [address] Performed By: #### A LLBG ####[facility] LABCLIA [id number] [place] [address] [place] Lactate [Moles/Vol] 1.1 mmol/L Normal 0.5-2.2 [facility] Comment on above: Order Comment: Speci men Type: ARTERIAL BLOOD SPECIMENOrdering Facility: [facility] Address: [address] [place] [address] Performed By: #### A LLBG ####[facility] LABCLIA [id number] [place] [address] [place] Methemoglobin (Bld) [Mass fraction] 0.5 % Normal 0.0-1.5 [facility] [place] Comment on above: Order Comment: Speci men Type: ARTERIAL BLOOD SPECIMENOrdering Facility: [facility] Address: [address] [place] [address] Performed By: #### A LLBG ####[facility] LABCLIA [id number] [place] [address] [place] O2 THERAPY VENT=Ventilator Normal [facility] [place] Comment on above: Order Comment: Speci men Type: ARTERIAL BLOOD SPECIMENOrdering Facility: [facility] Address: [address] [place] [address] Performed By: #### A LLBG ####[facility] LABCLIA [id number] [place] [address] [place] Oxygen (Bld) [Partial pressure] 163 mm Hg High 85-95 [facility] [place] Comment on above: Order Comment: Speci men Type: ARTERIAL BLOOD SPECIMENOrdering Facility: [facility] Address: [address] [place] [address] Performed By: #### A LLBG ####[facility]CLIA [id number] [place] [address] [place] Oxyhemoglobin (BldA) [Mass fraction] 98 % Normal 95-98 [facility] [place] Comment on above: Order Comment: Speci men Type: ARTERIAL BLOOD SPECIMENOrdering Facility: [facility] Address: [address] [place] [address] Performed By: #### A LLBG ####[facility] LABCLIA [id number] [place] [address] [place] pH (Bld) 7.41 [pH] Normal 7.35-7.45 [facility] [place] Comment on above: Order Comment: Speci men Type: ARTERIAL BLOOD SPECIMENOrdering Facility: [facility] Address: [address] [place] [address] Performed By: #### A LLBG ####[facility] LABCLIA [id number] [place] [address] [place] PO2 / FIO2 RATIO 326 mmHg Normal >300 [facility] Comment on above: Order Comment: Speci men Type: ARTERIAL BLOOD SPECIMENOrdering Facility: [facility] Address: [address] [place] [address] Performed By: #### A LLBG ####[facility] LABCLIA [id number] [place] [address] [place] Potassium [Moles/Vol] 3.8 mmol/L Normal 3.5-5.0 [facility] Comment on above: Order Comment: Speci men Type: ARTERIAL BLOOD SPECIMENOrdering Facility: [facility] Address: [address] [place] [address] Performed By: #### A LLBG ####[facility] LABCLIA [id number] [place] [address] [place] Sodium [Moles/Vol] 136 mmol/L Normal 136-144 [facility] Comment on above: Order Comment: Speci men Type: ARTERIAL BLOOD SPECIMENOrdering Facility: [facility] Address: [address] [place] [address] Performed By: #### A LLBG ####[facility] LABCLIA [id number] [place] [address] [place] Base excess Calc (Bld) [Moles/Vol] 4 mmol/L High 0-2 [facility] Comment on above: Order Comment: Speci men Type: ARTERIAL BLOOD SPECIMENOrdering Facility: [facility] Address: [address] [place] [address] Performed By: #### A LLBG ####[facility] LABIA [id number] [place] [address] [place] Body temperature 98.6 [degF] Normal [facility] Comment on above: Order Comment: Speci men Type: ARTERIAL BLOOD SPECIMENOrdering Facility: [facility] Address: [address] [place] [address] Performed By: #### A LLBG ####[facility] [id number] [place] [address] [place] Calcium.ionized (Bld) [Mass/Vol] 1.24 mmol/L Normal 1.08-1.30 [facility] Comment on above: Order Comment: Speci men Type: ARTERIAL BLOOD SPECIMENOrdering Facility: [facility] Address: [address] [place] [address] Performed By: #### A LLBG ####[facility] [id number] [place] [address] [place] Calcium.ionized adjusted to pH 7.4 (BldA) [Moles/Vol] 1.24 mmol/L Normal 1.08-1.30 [facility] [place] Comment on above: Order Comment: Speci men Type: ARTERIAL BLOOD SPECIMENOrdering Facility: [facility] Address: [address] [place] [address] Performed By: #### A LLBG ####[facility] [id number] [place] [address] [place] Carboxyhemoglobin (BldA) [Mass fraction] 0.8 % Normal 0.0-2.0 [facility] [place] Comment on above: Order Comment: Speci men Type: ARTERIAL BLOOD SPECIMENOrdering Facility: [facility] Address: [address] [place] [address] Result Comment: Carb oxyhemoglobin Reference Range for Smokers: 2.0-8.0% Performed By: #### A LLBG ####[facility] LABCLIA [id number] [place] [address] [place] CO2 (Bld) [Partial pressure] 47 mm Hg High 36-46 [facility] Comment on above: Order Comment: Speci men Type: ARTERIAL BLOOD SPECIMENOrdering Facility: [facility] Address: [address] [place] [address] Performed By: #### A LLBG ####[facility] LABCLIA [id number] [place] [address] [place] FIO2 40 % Normal [facility] Comment on above: Order Comment: Speci men Type: ARTERIAL BLOOD SPECIMENOrdering Facility: [facility] Address: [address] [place] [address] Performed By: #### A LLBG ####[facility] LABCLIA [id number] [place] [address] [place] Glucose [Mass/Vol] 129 mg/dL High 74-99 [facility] Comment on above: Order Comment: Speci men Type: ARTERIAL BLOOD SPECIMENOrdering Facility: [facility] Address: [address] [place] [address] Performed By: #### A LLBG ####[facility] LABCLIA [id number] [place] [address] [place] Order Comment: Speci men Type: BLOOD SPECIMENOrdering Facility: [facility] Address: [address] [place] [address] Result Comment: The [place] [employer] (ADA) provides guidance for cutoff values for fasting glucose and random glucose. The ADA defines fasting as no caloric intake for at least 8 hours. Fasting plasma glucose results between 100 to 125 mg/dL indicate increased risk for diabetes (prediabetes).Fasting plasma glucose results greater than or equal to 126 mg/dL meet the criteria for diagnosis of diabetes. In the absence of unequivocal hyperglycemia, results should be confirmed by repeat testing. In a patient with classic symptoms of hyperglycemia or hyperglycemic crisis, random plasma glucose results greater than or equal to 200 mg/dL meet the criteria for diagnosis of diabetes.Reference: Standards of Medical Care in Diabetes 2016, [place] [employer]. Diabetes Care. 2016.39(Suppl 1). Performed By: #### 2 777-1, 28567-4, 26065-7 ####[facility] LABCLIA [id number] [place] [address] [place] HCO3 (Bld) [Moles/Vol] 29 mmol/L High 22-26 [facility] Comment on above: Order Comment: Speci men Type: ARTERIAL BLOOD SPECIMENOrdering Facility: [facility] Address: [address] [place] [address] Performed By: #### A LLBG ####[facility] LABCLIA [id number] [place] [address] [place] Hematocrit (Bld) [Volume fraction] 39.7 % Normal 39.0-51.0 [facility] [place] Comment on above: Order Comment: Speci men Type: ARTERIAL BLOOD SPECIMENOrdering Facility: [facility] Address: [address] [place] [address] Performed By: #### A LLBG ####[facility]CLIA [id number] [place] [address] [place] Hemoglobin (Bld) [Mass/Vol] 12.9 g/dL Low 13.0-17.0 [facility] Comment on above: Order Comment: Speci men Type: ARTERIAL BLOOD SPECIMENOrdering Facility: [facility] Address: [address] [place] [address] Performed By: #### A LLBG ####[facility] LABCLIA [id number] [place] [address] [place] Lactate [Moles/Vol] 0.8 mmol/L Normal 0.5-2.2 [facility] Comment on above: Order Comment: Speci men Type: ARTERIAL BLOOD SPECIMENOrdering Facility: [facility] Address: [address] [place] [id number] Performed By: #### A LLBG ####[facility] LABCLIA [id number] [place] [address] [place] Methemoglobin (Bld) [Mass fraction] 0.6 % Normal 0.0-1.5 [facility] Comment on above: Order Comment: Speci men Type: ARTERIAL BLOOD SPECIMENOrdering Facility: [facility] Address: [address] [place] [id number] Performed By: #### A LLBG ####[facility]CLIA [id number] [place] [address] [place] O2 THERAPY VENT=Ventilator Normal [facility] Comment on above: Order Comment: Speci men Type: ARTERIAL BLOOD SPECIMENOrdering Facility: [facility] Address: [address] [place] [address] Performed By: #### A LLBG ####[facility]CLIA [id number] [place] [address] [place] Oxygen (Bld) [Partial pressure] 71 mm Hg Low 85-95 [facility] Comment on above: Order Comment: Speci men Type: ARTERIAL BLOOD SPECIMENOrdering Facility: [facility] Address: [address] [place] [id number] Performed By: #### A LLBG ####[facility] LABCLIA [id number] [place] [id number] [place] Oxyhemoglobin (BldA) [Mass fraction] 93 % Low 95-98 [facility] Comment on above: Order Comment: Speci men Type: ARTERIAL BLOOD SPECIMENOrdering Facility: [facility] Address: [address] [place] [id number] Performed By: #### A LLBG ####[facility]CLIA [id number] [place] [id number] [place] pH (Bld) 7.41 [pH] Normal 7.35-7.45 [facility] Comment on above: Order Comment: Speci men Type: ARTERIAL BLOOD SPECIMENOrdering Facility: [facility] Address: [address] [place] [address] Performed By: #### A LLBG ####[facility] LABCLIA [id number] [place] [address] [place] PO2 / FIO2 RATIO 178 mmHg Low >300 [facility] Comment on above: Order Comment: Speci men Type: ARTERIAL BLOOD SPECIMENOrdering Facility: [facility] Address: [address] [place] [address] Performed By: #### A LLBG ####[facility]CLIA [id number] [place] [address] [place] Potassium [Moles/Vol] 3.5 mmol/L Normal 3.5-5.0 [facility] Comment on above: Order Comment: Speci men Type: ARTERIAL BLOOD SPECIMENOrdering Facility: [facility] Address: [address] [place] [address] Performed By: #### A LLBG ####[facility]CLIA [id number] [place] [address] [place] Sodium [Moles/Vol] 140 mmol/L Normal 136-144 [facility] Comment on above: Order Comment: Speci men Type: ARTERIAL BLOOD SPECIMENOrdering Facility: [facility] Address: [address] [place] [address] Performed By: #### A LLBG ####[facility]CLIA [id number] [place] [address] [place] CASE MANAGEMon 06-13-2024 CASE MANAGEM Normal [facility] CBC panel Auto (Bld)on 06-13 Erythrocyte distribution width (RBC) [Ratio] 15.1 % High 11.5-15.0 [facility] Comment on above: Order Comment: Speci men Type: BLOOD SPECIMENOrdering Facility: [facility] Address: [address] [place] [address] Performed By: #### 5 8410-2 ####[facility] LABIA [id number] [place] [address] [place] Hematocrit (Bld) [Volume fraction] 38.0 % Low 39.0-51.0 [facility] Comment on above: Order Comment: Speci men Type: BLOOD SPECIMENOrdering Facility: [facility] Address: [address] [place] [address] Performed By: #### 5 8410-2 ####[facility] LABIA [id number] [place] [address] [place] Hemoglobin (Bld) [Mass/Vol] 12.4 g/dL Low 13.0-17.0 [facility] Comment on above: Order Comment: Speci men Type: BLOOD SPECIMENOrdering Facility: [facility] Address: [address] [place] [address] Performed By: #### 5 8410-2 ####[facility] LABIA [id number] [place] [address] [place] MCH (RBC) [Entitic mass] 29.2 pg Normal 26.0-34.0 [facility] Comment on above: Order Comment: Speci men Type: BLOOD SPECIMENOrdering Facility: [facility] Address: [address] [place] [address] Performed By: #### 5 8410-2 ####[facility]CLIA [id number] [place] [address] [place] MCHC (RBC) [Mass/Vol] 32.6 g/dL Normal 30.5-36.0 [facility] Comment on above: Order Comment: Speci men Type: BLOOD SPECIMENOrdering Facility: [facility] Address: [address] [place] [address] Performed By: #### 5 8410-2 ####[facility] LABIA [id number] [place] [address] [place] MCV (RBC) [Entitic vol] 89.4 fL Normal 80.0-100.0 [facility] Comment on above: Order Comment: Speci men Type: BLOOD SPECIMENOrdering Facility: [facility] Address: [address] [place] [address] Performed By: #### 5 8410-2 ####[facility] LABIA [id number] [place] [address] [place] Nucleated RBC (Bld) [#/Vol] 10*3/uL Normal <0.01 [facility] Comment on above: Order Comment: Speci men Type: BLOOD SPECIMENOrdering Facility: [facility] Address: [address] [place] [address] Performed By: #### 5 8410-2 ####[facility] [id number] [place] [address] [place] Platelet mean volume (Bld) [Entitic vol] 9.3 fL Normal 9.0-12.7 [facility] Comment on above: Order Comment: Speci men Type: BLOOD SPECIMENOrdering Facility: [facility] Address: [address] [place] [address] Performed By: #### 5 8410-2 ####[facility] LABIA [id number] [place] [address] [place] Platelets (Bld) [#/Vol] 219 10*3/uL Normal 150-400 [facility] Comment on above: Order Comment: Speci men Type: BLOOD SPECIMENOrdering Facility: [facility] Address: [address] [place] [address] Performed By: #### 5 8410-2 ####[facility] LABIA [id number] [place] [address] [place] RBC (Bld) [#/Vol] 4.25 10*6/uL Normal 4.20-6.00 [facility] Comment on above: Order Comment: Speci men Type: BLOOD SPECIMENOrdering Facility: [facility] Address: [address] [place] [address] Performed By: #### 5 8410-2 ####[facility]CL[facility] [id number] [place] [address] [place] WBC (Bld) [#/Vol] 14.26 10*3/uL High 3.70-11.00 [facility] Comment on above: Order Comment: Speci men Type: BLOOD SPECIMENOrdering Facility: [facility] Address: [address] [place] [address] Performed By: #### 5 8410-2 ####[facility]CL[facility] [id number] [place] [address] [place] Comprehensive metabolic 2000 panelon 06-13-2024 Albumin [Mass/Vol] 2.8 g/dL Low 3.9-4.9 [facility] Comment on above: Order Comment: Speci men Type: BLOOD SPECIMENOrdering Facility: [facility] Address: [address] [place] [address] Performed By: #### 2 777-1, 01548-9, ####[facility] LABCLIA [id number] [place] [address] [place] [Catalytic activity/Vol] 94 U/L Normal 38-113 [facility] [place] Comment on above: Order Comment: Speci men Type: BLOOD SPECIMENOrdering Facility: [facility] Address: [address] [place] [address] Performed By: #### 2 777-1, 61492-5, ####[facility] LABCLIA [id number] [address] [address] [place] ALT [Catalytic activity/Vol] 55 U/L High 10-54 [facility] [place] Comment on above: Order Comment: Speci men Type: BLOOD SPECIMENOrdering Facility: [facility] Address: [address] [place] [address] Performed By: #### 2 777-1, , ####[facility] LABCLIA [id number] [address] [address] [place] Anion gap [Moles/Vol] 11 mmol/L Normal 8-15 [facility] Comment on above: Order Comment: Speci men Type: BLOOD SPECIMENOrdering Facility: [facility] Address: [address] [place] [address] Performed By: #### 2 777-1, , ####[facility] LABCLIA [id number] [place] [address] [place] AST [Catalytic activity/Vol] 56 U/L High 14-40 [facility] [place] Comment on above: Order Comment: Speci men Type: BLOOD SPECIMENOrdering Facility: [facility] Address: [address] [place] [address] Performed By: #### 2 777-1, , ####[facility] LABCLIA [id number] [place] [address] [place] Bilirubin [Mass/Vol] 0.4 mg/dL Normal 0.2-1.3 [facility] Comment on above: Order Comment: Speci men Type: BLOOD SPECIMENOrdering Facility: [facility] Address: [address] [place] [address] Performed By: #### 2 777-1, , ####[facility] LABCLIA [id number] [place] [id number] [place] Calcium [Mass/Vol] 8.6 mg/dL Normal 8.5-10.2 [facility] Comment on above: Order Comment: Speci men Type: BLOOD SPECIMENOrdering Facility: [facility] Address: [address] [place] [address] Performed By: #### 2 777-1, 51146-5, ####[facility] LABCLIA [id number] [place] [address] [place] Chloride [Moles/Vol] 103 mmol/L Normal 98-107 [facility] Comment on above: Order Comment: Speci men Type: BLOOD SPECIMENOrdering Facility: [facility] Address: [address] [place] [address] Performed By: #### 2 777-1, 77187-3, ####[facility] LABCLIA [id number] [place] [address] [place] CO2 [Moles/Vol] 27 mmol/L Normal 22-30 [facility] [place] Comment on above: Order Comment: Speci men Type: BLOOD SPECIMENOrdering Facility: [facility] Address: [address] [place] [address] Performed By: #### 2 777-1, 62425-7, ####[facility] LABCLIA [id number] [place] [address] [place] Creatinine [Mass/Vol] 0.78 mg/dL Normal 0.73-1.22 [facility] Comment on above: Order Comment: Speci men Type: BLOOD SPECIMENOrdering Facility: [facility] Address: [address] [place] [address] Performed By: #### 2 777-1, 83553-9, ####[facility] LABCLIA [id number] [place] [address] [place] Creatinine and Glomerular filtration rate.predicted panel (S/P/Bld) 95 mL/min/1.73m??? Normal >=60 [facility] [place] Comment on above: Order Comment: Speci men Type: BLOOD SPECIMENOrdering Facility: [facility] Address: [address] [place] [id number] Result Comment: Stephanie mated Glomerular Filtration Rate (eGFR) is calculated using the 2020 CKD-EPI creatinine equation. This equation utilizes serum creatinine, sex, and age as parameters. The creatinine assay has traceable calibration to isotope dilution-mass spectrometry. Refer to KDIGO guidelines for clinical interpretation. In patients with unstable renal function, e.g. those with acute kidney injury, the eGFR may not accurately reflect actual GFR. Performed By: #### 2 777-1, , ####[facility] LABCLIA [id number] [address] [address] [place] Potassium [Moles/Vol] 3.6 mmol/L Low 3.7-5.1 [facility] Comment on above: Order Comment: Speci men Type: BLOOD SPECIMENOrdering Facility: [facility] Address: [address] [place] [address] Performed By: #### 2 777-1, , ####[facility] LABCLIA [id number] [place] [id number] [place] Protein [Mass/Vol] 4.9 g/dL Low 6.3-8.0 [facility] Comment on above: Order Comment: Speci men Type: BLOOD SPECIMENOrdering Facility: [facility] Address: [address] [place] [address] Performed By: #### 2 777-1, , ####[facility] LABCLIA [id number] [address] [address] [place] Sodium [Moles/Vol] 141 mmol/L Normal 136-144 [facility] Comment on above: Order Comment: Speci men Type: BLOOD SPECIMENOrdering Facility: [facility] Address: [address] [place] [address] Performed By: #### 2 777-1, , ####[facility] LABCLIA [id number] [address] [address] [place] Urea nitrogen [Mass/Vol] 38 mg/dL High 9-24 [facility] [place] Comment on above: Order Comment: Speci men Type: BLOOD SPECIMENOrdering Facility: [facility] Address: [address] [place], [place] [id number] Performed By: #### 2 777-1, 46036-4, 30835-0 ####[facility] LABCLIA [id number] [place] [id number] [place] Magnesium SerPl-ncon 06-13 Magnesium [Mass/Vol] 1.8 mg/dL Normal 1.7-2.3 [facility] Comment on above: Order Comment: Speci men Type: BLOOD SPECIMENOrdering Facility: [facility] Address: [address] [place] [address] Performed By: #### 2 777-1, 63941-0, ####[facility] LABIA [id number] [place] [id number] [place] NUTRITIONon 06-13-2024 NUTRITION Normal [facility] Phosphate SerPl-mCncon 06-13 Phosphate [Mass/Vol] 3.4 mg/dL Normal 2.7-4.8 [facility] Comment on above: Order Comment: Speci men Type: BLOOD SPECIMENOrdering Facility: [facility] Address: [address] [place] [address] Performed By: #### 2 777-1, 70436-5, ####[facility] LABIA [id number] [place] [id number] [place] THERAPY NTon 06-13-2024 THERAPY NT Normal [facility] TYPE + SCREENon 06-13-2024 ABO A Normal [facility] [place] Comment on above: Order Comment: Speci men Type: BLOOD SPECIMENOrdering Facility: [facility] Address: [address] [place] [address] Performed By: #### T SCR ####[facility] BLOOD BANKCLIA [id number] [place] [address] [place] Rh Nom (Bld) Positive Normal [facility] [place] Comment on above: Order Comment: Speci men Type: BLOOD SPECIMENOrdering Facility: [facility] Address: [address] [place] [address] Performed By: #### T SCR ####[facility] BLOOD BANKCLIA [id number] [address] STATES OF [facility] TYPE AND SCREEN EXPIRATION 06/16/2024 23:59 Normal [facility] [place] Comment on above: Order Comment: Speci men Type: BLOOD SPECIMENOrdering Facility: [facility] Address: [address] [place] [address] Performed By: #### T SCR ####[facility] BLOOD BANKIA [id number] [address] [place] Tacrolimus Bld-mCncon 2023 Tacrolimus (Bld) [Mass/Vol] 7.3 ng/mL Normal 5.0-20.0 [facility] [place] Comment on above: Order Comment: Speci men Type: BLOOD SPECIMENOrdering Facility: [facility] Address: [address] [place] [address] Result Comment: Noreen vidualized target levels for [...] Alinity i. Performed By: #### 1 1253-2 ####[facility] LABCLIA [id number] [place] [address] [place] XR ABDOMEN 1V SUPINEon 06-13 XR ABDOMEN 1V SUPINE Normal [facility] XR ABDOMEN 1V SUPINE Normal [facility] XR CHEST 1V FRONTAL PORTon 1 XR CHEST 1V FRONTAL PORT Normal [facility] ARTERIAL BLOOD GASESon 06-12 Base excess Calc (Bld) [Moles/Vol] 4 mmol/L High 0-2 [facility] [place] Comment on above: Order Comment: Speci men Type: ARTERIAL BLOOD SPECIMENOrdering Facility: [facility] Address: [address] [place] [address] Performed By: #### A LLBG ####[facility] LABCLIA [id number] [place] [address] [place] Body temperature 98.96 [degF] Normal [facility] Comment on above: Order Comment: Speci men Type: ARTERIAL BLOOD SPECIMENOrdering Facility: [facility] Address: [address] [place] [address] Performed By: #### A LLBG ####[facility] LABCLIA [id number] [place] [address] [place] Calcium.ionized (Bld) [Mass/Vol] 1.22 mmol/L Normal 1.08-1.30 [facility] [place] Comment on above: Order Comment: Speci men Type: ARTERIAL BLOOD SPECIMENOrdering Facility: [facility] Address: [address] [place] [address] Performed By: #### A LLBG ####[facility] LABCLIA [id number] [place] [address] [place] Calcium.ionized adjusted to pH 7.4 (BldA) [Moles/Vol] 1.22 mmol/L Normal 1.08-1.30 [facility] [place] Comment on above: Order Comment: Speci men Type: ARTERIAL BLOOD SPECIMENOrdering Facility: [facility] Address: [address] [place] [address] Performed By: #### A LLBG ####[facility] LABCLIA [id number] [place] [address] [place] Carboxyhemoglobin (BldA) [Mass fraction] 1.1 % Normal 0.0-2.0 [facility] [place] Comment on above: Order Comment: Speci men Type: ARTERIAL BLOOD SPECIMENOrdering Facility: [facility] Address: [address] [place] [address] Result Comment: Carb oxyhemoglobin Reference Range for Smokers: 2.0-8.0% Performed By: #### A LLBG ####[facility] LABCLIA [id number] [place] [address] [place] CO2 (Bld) [Partial pressure] 48 mm Hg High 36-46 [facility] Comment on above: Order Comment: Speci men Type: ARTERIAL BLOOD SPECIMENOrdering Facility: [facility] Address: [address] [place] [address] Performed By: #### A LLBG ####[facility] LABCLIA [id number] [address] [place] CO2 adjusted to patient's actual temperature (Bld) [Partial pressure] 49 mmHg High 36-46 [facility] [place] Comment on above: Order Comment: Speci men Type: ARTERIAL BLOOD SPECIMENOrdering Facility: [facility] Address: [address] [place] [address] Performed By: #### A LLBG ####[facility] LABCLIA [id number] [place] [address] [place] FIO2 40 % Normal [facility] Comment on above: Order Comment: Speci men Type: ARTERIAL BLOOD SPECIMENOrdering Facility: [facility] Address: [address] [place] [address] Performed By: #### A LLBG ####[facility] LABCLIA [id number] [place] [address] [place] Glucose [Mass/Vol] 153 mg/dL High 60-105 [facility] Comment on above: Order Comment: Speci men Type: ARTERIAL BLOOD SPECIMENOrdering Facility: [facility] Address: [address] [place] [address] Performed By: #### A LLBG ####[facility] LABCLIA [id number] [place] [address] [place] HCO3 (Bld) [Moles/Vol] 30 mmol/L High 22-26 [facility] Comment on above: Order Comment: Speci men Type: ARTERIAL BLOOD SPECIMENOrdering Facility: [facility] Address: [address] [place] [address] Performed By: #### A LLBG ####[facility] LABCLIA [id number] [place] [address] [place] Hematocrit (Bld) [Volume fraction] 39.7 % Normal 39.0-51.0 [facility] Comment on above: Order Comment: Speci men Type: ARTERIAL BLOOD SPECIMENOrdering Facility: [facility] Address: [address] [place] [address] Performed By: #### A LLBG ####[facility] LABCLIA [id number] [place] [address] [place] Hemoglobin (Bld) [Mass/Vol] 12.9 g/dL Low 13.0-17.0 [facility] Comment on above: Order Comment: Speci men Type: ARTERIAL BLOOD SPECIMENOrdering Facility: [facility] Address: [address] [place] [address] Performed By: #### A LLBG ####[facility] LABCLIA [id number] [place] [address] [place] Lactate [Moles/Vol] 1.1 mmol/L Normal 0.5-2.2 [facility] Comment on above: Order Comment: Speci men Type: ARTERIAL BLOOD SPECIMENOrdering Facility: [facility] Address: [address] [place] [address] Performed By: #### A LLBG ####[facility] LABCLIA [id number] [address] [address] [place] Methemoglobin (Bld) [Mass fraction] 1.2 % Normal 0.0-1.5 [facility] Comment on above: Order Comment: Speci men Type: ARTERIAL BLOOD SPECIMENOrdering Facility: [facility] Address: [address] [place] [id number] Performed By: #### A LLBG ####[facility] LABCLIA [id number] [place] [id number] [place] O2 THERAPY VENT=Ventilator Normal [facility] Comment on above: Order Comment: Speci men Type: ARTERIAL BLOOD SPECIMENOrdering Facility: [facility] Address: [address] [place] [id number] Performed By: #### A LLBG ####[facility] LABCLIA [id number] [place] [id number] [place] Oxygen (Bld) [Partial pressure] 114 mm Hg High 85-95 [facility] Comment on above: Order Comment: Speci men Type: ARTERIAL BLOOD SPECIMENOrdering Facility: [facility] Address: [address] [place] [id number] Performed By: #### A LLBG ####[facility] LABCLIA [id number] [place] [id number] [place] Oxygen adjusted to patient's actual temperature (Bld) [Partial pressure] 115 mmHg High 85-95 [facility] Comment on above: Order Comment: Speci men Type: ARTERIAL BLOOD SPECIMENOrdering Facility: [facility] Address: [address] [place] [id number] Performed By: #### A LLBG ####[facility] LABCLIA [id number] [place] [id number] [place] Oxyhemoglobin (BldA) [Mass fraction] 96 % Normal 95-98 [facility] Comment on above: Order Comment: Speci men Type: ARTERIAL BLOOD SPECIMENOrdering Facility: [facility] Address: [address] [id number] Performed By: #### A LLBG ####[facility] LABCLIA [id number] [place] [address] [place] PEEP/CPAP 10 cmH2O Normal [facility] Comment on above: Order Comment: Speci men Type: ARTERIAL BLOOD SPECIMENOrdering Facility: [facility] Address: [address] [place] [address] Performed By: #### A LLBG ####[facility] LABCLIA [id number] [place] [address] [place] pH (Bld) 7.40 [pH] Normal 7.35-7.45 [facility] [place] Comment on above: Order Comment: Speci men Type: ARTERIAL BLOOD SPECIMENOrdering Facility: [facility] Address: [address] [place] [address] Performed By: #### A LLBG ####[facility] LABCLIA [id number] [place] [address] [place] pH adjusted to patient's actual temperature (Bld) 7.40 Normal 7.35-7.45 [facility] Comment on above: Order Comment: Speci men Type: ARTERIAL BLOOD SPECIMENOrdering Facility: [facility] Address: [address] [place] [address] Performed By: #### A LLBG ####[facility] LABCLIA [id number] [place] [address] [place] PO2 / FIO2 RATIO 285 mmHg Low >300 [facility] Comment on above: Order Comment: Speci men Type: ARTERIAL BLOOD SPECIMENOrdering Facility: [facility] Address: [address] [place] [address] Performed By: #### A LLBG ####[facility] LABCLIA [id number] [place] [address] [place] Potassium [Moles/Vol] 3.7 mmol/L Normal 3.5-5.0 [facility] Comment on above: Order Comment: Speci men Type: ARTERIAL BLOOD SPECIMENOrdering Facility: [facility] Address: [address] [place] [address] Performed By: #### A LLBG ####[facility] LABCLIA [id number] [place] [address] [place] Sodium [Moles/Vol] 138 mmol/L Normal 136-144 [facility] Comment on above: Order Comment: Speci men Type: ARTERIAL BLOOD SPECIMENOrdering Facility: [facility] Address: [address] [place] [address] Performed By: #### A LLBG ####[facility] LABCLIA [id number] [place] [address] [place] Base excess Calc (Bld) [Moles/Vol] 4 mmol/L High 0-2 [facility] Comment on above: Order Comment: Speci men Type: ARTERIAL BLOOD SPECIMENOrdering Facility: [facility] Address: [address] [place] [address] Performed By: #### A LLBG ####[facility] LABCLIA [id number] [place] [address] [place] Body temperature 98.24 [degF] Normal [facility] Comment on above: Order Comment: Speci men Type: ARTERIAL BLOOD SPECIMENOrdering Facility: [facility] Address: [address] [place] [address] Performed By: #### A LLBG ####[facility] LABCLIA [id number] [place] [address] [place] Calcium.ionized (Bld) [Mass/Vol] 1.26 mmol/L Normal 1.08-1.30 [facility] Comment on above: Order Comment: Speci men Type: ARTERIAL BLOOD SPECIMENOrdering Facility: [facility] Address: [address] [place] [address] Performed By: #### A LLBG ####[facility] LABCLIA [id number] [place] [address] [place] Calcium.ionized adjusted to pH 7.4 (BldA) [Moles/Vol] 1.27 mmol/L Normal 1.08-1.30 [facility] Comment on above: Order Comment: Speci men Type: ARTERIAL BLOOD SPECIMENOrdering Facility: [facility] Address: [address] [place] [address] Performed By: #### A LLBG ####[facility] LABIA [id number] [place] [address] [place] Carboxyhemoglobin (BldA) [Mass fraction] 0.8 % Normal 0.0-2.0 [facility] Comment on above: Order Comment: Speci men Type: ARTERIAL BLOOD SPECIMENOrdering Facility: [facility] Address: [address] [place] [address] Result Comment: Carb oxyhemoglobin Reference Range for Smokers: 2.0-8.0% Performed By: #### A LLBG ####[facility] LABIA [id number] [place] [address] [place] CO2 (Bld) [Partial pressure] 46 mm Hg Normal 36-46 [facility] Comment on above: Order Comment: Speci men Type: ARTERIAL BLOOD SPECIMENOrdering Facility: [facility] Address: [address] [place] [address] Performed By: #### A LLBG ####[facility] LABIA [id number] [place] [address] [place] CO2 adjusted to patient's actual temperature (Bld) [Partial pressure] 45 mmHg Normal 36-46 [facility] Comment on above: Order Comment: Speci men Type: ARTERIAL BLOOD SPECIMENOrdering Facility: [facility] Address: [address] [place] [address] Performed By: #### A LLBG ####[facility] LABIA [id number] [place] [address] [place] FIO2 30 % Normal [facility] Comment on above: Order Comment: Speci men Type: ARTERIAL BLOOD SPECIMENOrdering Facility: [facility] Address: [address] [place] [address] Performed By: #### A LLBG ####[facility] LABCLIA [id number] [place] [address] [place] Glucose [Mass/Vol] 156 mg/dL High 60-105 [facility] Comment on above: Order Comment: Speci men Type: ARTERIAL BLOOD SPECIMENOrdering Facility: [facility] Address: [address] [place] [address] Performed By: #### A LLBG ####[facility] LABCLIA [id number] [place] [address] [place] HCO3 (Bld) [Moles/Vol] 29 mmol/L High 22-26 [facility] Comment on above: Order Comment: Speci men Type: ARTERIAL BLOOD SPECIMENOrdering Facility: [facility] Address: [address] [place] [address] Performed By: #### A LLBG ####[facility] LABCLIA [id number] [place] [address] [place] Hematocrit (Bld) [Volume fraction] 40.2 % Normal 39.0-51.0 [facility] Comment on above: Order Comment: Speci men Type: ARTERIAL BLOOD SPECIMENOrdering Facility: [facility] Address: [address] [place] [address] Performed By: #### A LLBG ####[facility] LABCLIA [id number] [place] [address] [place] Hemoglobin (Bld) [Mass/Vol] 13.1 g/dL Normal 13.0-17.0 [facility] Comment on above: Order Comment: Speci men Type: ARTERIAL BLOOD SPECIMENOrdering Facility: [facility] Address: [address] [place] [address] Performed By: #### A LLBG ####[facility] LABCLIA [id number] [place] [address] [place] Lactate [Moles/Vol] 1.4 mmol/L Normal 0.5-2.2 [facility] Comment on above: Order Comment: Speci men Type: ARTERIAL BLOOD SPECIMENOrdering Facility: [facility] Address: [address] [place] [address] Performed By: #### A LLBG ####[facility] LABCLIA [id number] [place] [address] [place] Methemoglobin (Bld) [Mass fraction] 0.6 % Normal 0.0-1.5 [facility] Comment on above: Order Comment: Speci men Type: ARTERIAL BLOOD SPECIMENOrdering Facility: [facility] Address: [address] [place] [address] Performed By: #### A LLBG ####[facility] LABCLIA [id number] [place] [address] [place] O2 THERAPY VENT=Ventilator Normal [facility] Comment on above: Order Comment: Speci men Type: ARTERIAL BLOOD SPECIMENOrdering Facility: [facility] Address: [address] [place] [address] Performed By: #### A LLBG ####[facility] LABCLIA [id number] [place] [address] [place] Oxygen (Bld) [Partial pressure] 80 mm Hg Low 85-95 [facility] Comment on above: Order Comment: Speci men Type: ARTERIAL BLOOD SPECIMENOrdering Facility: [facility] Address: [address] [place] [address] Performed By: #### A LLBG ####[facility] LABCLIA [id number] [place] [id number] [place] Oxygen adjusted to patient's actual temperature (Bld) [Partial pressure] 79 mmHg Low 85-95 [facility] Comment on above: Order Comment: Speci men Type: ARTERIAL BLOOD SPECIMENOrdering Facility: [facility] Address: [address] [place] [address] Performed By: #### A LLBG ####[facility] LABCLIA [id number] [place] [address] [place] Oxyhemoglobin (BldA) [Mass fraction] 95 % Normal 95-98 [facility] Comment on above: Order Comment: Speci men Type: ARTERIAL BLOOD SPECIMENOrdering Facility: [facility] Address: [address] [place] [address] Performed By: #### A LLBG ####[facility] LABCLIA [id number] [place] [address] [place] PEEP/CPAP 10 cmH2O Normal [facility] [place] Comment on above: Order Comment: Speci men Type: ARTERIAL BLOOD SPECIMENOrdering Facility: [facility] Address: [address] [place] [address] Performed By: #### A LLBG ####[facility] LABCLIA [id number] [place] [address] [place] pH (Bld) 7.41 [pH] Normal 7.35-7.45 [facility] [place] Comment on above: Order Comment: Speci men Type: ARTERIAL BLOOD SPECIMENOrdering Facility: [facility] Address: [address] [place] [address] Performed By: #### A LLBG ####[facility] LABCLIA [id number] [place] [address] [place] pH adjusted to patient's actual temperature (Bld) 7.42 Normal 7.35-7.45 [facility] Comment on above: Order Comment: Speci men Type: ARTERIAL BLOOD SPECIMENOrdering Facility: [facility] Address: [address] [place] [address] Performed By: #### A LLBG ####[facility] LABCLIA [id number] [place] [address] [place] PO2 / FIO2 RATIO 267 mmHg Low >300 [facility] Comment on above: Order Comment: Speci men Type: ARTERIAL BLOOD SPECIMENOrdering Facility: [facility] Address: [address] [place] [address] Performed By: #### A LLBG ####[facility] LABCLIA [id number] [place] [address] [place] Potassium [Moles/Vol] 3.7 mmol/L Normal 3.5-5.0 [facility] Comment on above: Order Comment: Speci men Type: ARTERIAL BLOOD SPECIMENOrdering Facility: [facility] Address: [address] [place] [address] Performed By: #### A LLBG ####[facility] LABCLIA [id number] [place] [address] [place] Sodium [Moles/Vol] 138 mmol/L Normal 136-144 [facility] Comment on above: Order Comment: Speci men Type: ARTERIAL BLOOD SPECIMENOrdering Facility: [facility] Address: [address] [place] [address] Performed By: #### A LLBG ####[facility] LABCLIA [id number] [place] [address] [place] Base excess Calc (Bld) [Moles/Vol] 4 mmol/L High 0-2 [facility] [place] Comment on above: Order Comment: Speci men Type: ARTERIAL BLOOD SPECIMENOrdering Facility: [facility] Address: [address] [place] [address] Performed By: #### A LLBG ####[facility] LABCLIA [id number] [place] [address] [place] Body temperature 98.6 [degF] Normal [facility] Comment on above: Order Comment: Speci men Type: ARTERIAL BLOOD SPECIMENOrdering Facility: [facility] Address: [address] [place] [address] Performed By: #### A LLBG ####[facility] LABIA [id number] [place] [address] [place] Calcium.ionized (Bld) [Mass/Vol] 1.29 mmol/L Normal 1.08-1.30 [facility] [place] Comment on above: Order Comment: Speci men Type: ARTERIAL BLOOD SPECIMENOrdering Facility: [facility] Address: [address] [place] [address] Performed By: #### A LLBG ####[facility] [id number] [place] [address] [place] Calcium.ionized adjusted to pH 7.4 (BldA) [Moles/Vol] 1.28 mmol/L Normal 1.08-1.30 [facility] [place] Comment on above: Order Comment: Speci men Type: ARTERIAL BLOOD SPECIMENOrdering Facility: [facility] Address: [address] [place] [address] Performed By: #### A LLBG ####[facility] [id number] [place] [address] [place] Carboxyhemoglobin (BldA) [Mass fraction] 0.5 % Normal 0.0-2.0 [facility] [place] Comment on above: Order Comment: Speci men Type: ARTERIAL BLOOD SPECIMENOrdering Facility: [facility] Address: [address] [place] [address] Result Comment: Carb oxyhemoglobin Reference Range for Smokers: 2.0-8.0% Performed By: #### A LLBG ####[facility] [id number] [place] [address] [place] CO2 (Bld) [Partial pressure] 51 mm Hg High 36-46 [facility] [place] Comment on above: Order Comment: Speci men Type: ARTERIAL BLOOD SPECIMENOrdering Facility: [facility] Address: [address] [place] [address] Performed By: #### A LLBG ####[facility] LABCLIA [id number] [place] [address] [place] FIO2 50 % Normal [facility] [place] Comment on above: Order Comment: Speci men Type: ARTERIAL BLOOD SPECIMENOrdering Facility: [facility] Address: [address] [place] [address] Performed By: #### A LLBG ####[facility] LABCLIA [id number] [place] [address] [place] Glucose [Mass/Vol] 142 mg/dL High 60-105 [facility] Comment on above: Order Comment: Speci men Type: ARTERIAL BLOOD SPECIMENOrdering Facility: [facility] Address: [address] [place] [address] Performed By: #### A LLBG ####[facility] LABCLIA [id number] [place] [address] [place] HCO3 (Bld) [Moles/Vol] 30 mmol/L High 22-26 [facility] Comment on above: Order Comment: Speci men Type: ARTERIAL BLOOD SPECIMENOrdering Facility: [facility] Address: [address] [place] [address] Performed By: #### A LLBG ####[facility] LABCLIA [id number] [place] [address] [place] Hematocrit (Bld) [Volume fraction] 39.1 % Normal 39.0-51.0 [facility] [place] Comment on above: Order Comment: Speci men Type: ARTERIAL BLOOD SPECIMENOrdering Facility: [facility] Address: [address] [place], [place] [address] Performed By: #### A LLBG ####[facility] LABCLIA [id number] [place] [address] [place] Hemoglobin (Bld) [Mass/Vol] 12.7 g/dL Low 13.0-17.0 [facility] [place] Comment on above: Order Comment: Speci men Type: ARTERIAL BLOOD SPECIMENOrdering Facility: [facility] Address: [address] [place] [address] Performed By: #### A LLBG ####[facility] LABIA [id number] [place] [id number] [place] Lactate [Moles/Vol] 0.9 mmol/L Normal 0.5-2.2 [facility] Comment on above: Order Comment: Speci men Type: ARTERIAL BLOOD SPECIMENOrdering Facility: [facility] Address: [address] [place] [address] Performed By: #### A LLBG ####[facility] LABIA [id number] [place] [address] [place] Methemoglobin (Bld) [Mass fraction] 0.7 % Normal 0.0-1.5 [facility] [place] Comment on above: Order Comment: Speci men Type: ARTERIAL BLOOD SPECIMENOrdering Facility: [facility] Address: [address] [place] [address] Performed By: #### A LLBG ####[facility] LABIA [id number] [place] [address] [place] O2 THERAPY VENT=Ventilator Normal [facility] [place] Comment on above: Order Comment: Speci men Type: ARTERIAL BLOOD SPECIMENOrdering Facility: [facility] Address: [address] [place] [address] Performed By: #### A LLBG ####[facility] LABCLIA [id number] [place] [address] [place] Oxygen (Bld) [Partial pressure] 131 mm Hg High 85-95 [facility] [place] Comment on above: Order Comment: Speci men Type: ARTERIAL BLOOD SPECIMENOrdering Facility: [facility] Address: [address] [place], [place] [address] Performed By: #### A LLBG ####[facility] LABIA [id number] [place] [address] [place] Oxyhemoglobin (BldA) [Mass fraction] 98 % Normal 95-98 [facility] [place] Comment on above: Order Comment: Speci men Type: ARTERIAL BLOOD SPECIMENOrdering Facility: [facility] Address: [address] [place] [address] Performed By: #### A LLBG ####[facility] LABCLIA [id number] [place] [address] [place] pH (Bld) 7.38 [pH] Normal 7.35-7.45 [facility] [place] Comment on above: Order Comment: Speci men Type: ARTERIAL BLOOD SPECIMENOrdering Facility: [facility] Address: [address] [place] [address] Performed By: #### A LLBG ####[facility] LABCLIA [id number] [place] [address] [place] PO2 / FIO2 RATIO 262 mmHg Low >300 [facility] Comment on above: Order Comment: Speci men Type: ARTERIAL BLOOD SPECIMENOrdering Facility: [facility] Address: [address] [place] [address] Performed By: #### A LLBG ####[facility] LABCLIA [id number] [place] [address] [place] Potassium [Moles/Vol] 3.5 mmol/L Normal 3.5-5.0 [facility] Comment on above: Order Comment: Speci men Type: ARTERIAL BLOOD SPECIMENOrdering Facility: [facility] Address: [address] [place] [address] Performed By: #### A LLBG ####[facility] LABCLIA [id number] [place] [address] [place] Sodium [Moles/Vol] 141 mmol/L Normal 136-144 [facility] Comment on above: Order Comment: Speci men Type: ARTERIAL BLOOD SPECIMENOrdering Facility: [facility] Address: [address] [place], [place] [address] Performed By: #### A LLBG ####[facility] LABCLIA [id number] [place] [address] [place] CBC panel Auto (Bld)on 06-12 Erythrocyte distribution width (RBC) [Ratio] 14.8 % Normal 11.5-15.0 [facility] [place] Comment on above: Order Comment: Speci men Type: BLOOD SPECIMENOrdering Facility: [facility] Address: [address] [place] [address] Performed By: #### 5 8410-2 ####[facility] LABCLIA [id number] [place] [address] [place] Hematocrit (Bld) [Volume fraction] 38.1 % Low 39.0-51.0 [facility] [place] Comment on above: Order Comment: Speci men Type: BLOOD SPECIMENOrdering Facility: [facility] Address: [address] [place] [address] Performed By: #### 5 8410-2 ####[facility] LABIA [id number] [place] [address] [place] Hemoglobin (Bld) [Mass/Vol] 12.4 g/dL Low 13.0-17.0 [facility] [place] Comment on above: Order Comment: Speci men Type: BLOOD SPECIMENOrdering Facility: [facility] Address: [address] [place] [address] Performed By: #### 5 8410-2 ####[facility] LABCLIA [id number] [place] [address] [place] MCH (RBC) [Entitic mass] 29.9 pg Normal 26.0-34.0 [facility] [place] Comment on above: Order Comment: Speci men Type: BLOOD SPECIMENOrdering Facility: [facility] Address: [address] [place] [address] Performed By: #### 5 8410-2 ####[facility] LABCLIA [id number] [place] [address] [place] MCHC (RBC) [Mass/Vol] 32.5 g/dL Normal 30.5-36.0 [facility] Comment on above: Order Comment: Speci men Type: BLOOD SPECIMENOrdering Facility: [facility] Address: [address] [place] [address] Performed By: #### 5 8410-2 ####[facility] LABIA [id number] [place] [address] [place] MCV (RBC) [Entitic vol] 91.8 fL Normal 80.0-100.0 [facility] Comment on above: Order Comment: Speci men Type: BLOOD SPECIMENOrdering Facility: [facility] Address: [address] [place] [address] Performed By: #### 5 8410-2 ####[facility] LABIA [id number] [place] [address] [place] Nucleated RBC (Bld) [#/Vol] 10*3/uL Normal <0.01 [facility] [place] Comment on above: Order Comment: Speci men Type: BLOOD SPECIMENOrdering Facility: [facility] Address: [address] [place] [address] Performed By: #### 5 8410-2 ####[facility] LABIA [id number] [place] [address] [place] Platelet mean volume (Bld) [Entitic vol] 9.2 fL Normal 9.0-12.7 [facility] [place] Comment on above: Order Comment: Speci men Type: BLOOD SPECIMENOrdering Facility: [facility] Address: [address] [place] [address] Performed By: #### 5 8410-2 ####[facility] LABIA [id number] [place] [address] [place] Platelets (Bld) [#/Vol] 209 10*3/uL Normal 150-400 [facility] [place] Comment on above: Order Comment: Speci men Type: BLOOD SPECIMENOrdering Facility: [facility] Address: [address] [place] [address] Performed By: #### 5 8410-2 ####[facility] LABCLIA [id number] [place] [address] [place] RBC (Bld) [#/Vol] 4.15 10*6/uL Low 4.20-6.00 [facility] Comment on above: Order Comment: Speci men Type: BLOOD SPECIMENOrdering Facility: [facility] Address: [address] [place] [address] Performed By: #### 5 8410-2 ####[facility] LABCLIA [id number] [place] [address] [place] WBC (Bld) [#/Vol] 10.27 10*3/uL Normal 3.70-11.00 [facility] Comment on above: Order Comment: Speci men Type: BLOOD SPECIMENOrdering Facility: [facility] Address: [address] [place] [address] Performed By: #### 5 8410-2 ####[facility] LABCLIA [id number] [place] [address] [place] Comprehensive metabolic 2000 panelon 06-12-2024 Albumin [Mass/Vol] 3.1 g/dL Low 3.9-4.9 [facility] Comment on above: Order Comment: Speci men Type: BLOOD SPECIMENOrdering Facility: [facility] Address: [address] [place] [address] Performed By: #### 2 777-1, 51448-3, 17846-5 ####[facility] LABCLIA [id number] [place] [address] [place] ALP [Catalytic activity/Vol] 73 U/L Normal 38-113 [facility] [place] Comment on above: Order Comment: Speci men Type: BLOOD SPECIMENOrdering Facility: [facility] Address: [address] [place], [place] [address] Performed By: #### 2 777-1, 05665-6, ####[facility] LABCLIA [id number] [address] [address] [place] ALT [Catalytic activity/Vol] 19 U/L Normal 10-54 [facility] Comment on above: Order Comment: Speci men Type: BLOOD SPECIMENOrdering Facility: [facility] Address: [address] [place] [address] Performed By: #### 2 777-1, 55014-4, ####[facility] LABCLIA [id number] [place] [address] [place] Anion gap [Moles/Vol] 10 mmol/L Normal 8-15 [facility] Comment on above: Order Comment: Speci men Type: BLOOD SPECIMENOrdering Facility: [facility] Address: [address] [place] [address] Performed By: #### 2 777-1, , ####[facility] LABIA [id number] [place] [address] [place] AST [Catalytic activity/Vol] 17 U/L Normal 14-40 [facility] [place] Comment on above: Order Comment: Speci men Type: BLOOD SPECIMENOrdering Facility: [facility] Address: [address] [place] [address] Performed By: #### 2 777-1, 54256-6, ####[facility] LABIA [id number] [place] [id number] [place] Bilirubin [Mass/Vol] 0.3 mg/dL Normal 0.2-1.3 [facility] Comment on above: Order Comment: Speci men Type: BLOOD SPECIMENOrdering Facility: [facility] Address: [address] [place], [place] [address] Performed By: #### 2 777-1, 38501-8, ####[facility] LABCLIA [id number] [address] [address] [place] Calcium [Mass/Vol] 8.9 mg/dL Normal 8.5-10.2 [facility] Comment on above: Order Comment: Speci men Type: BLOOD SPECIMENOrdering Facility: [facility] Address: [address] [place], [place] [address] Performed By: #### 2 777-1, 14367-8, ####[facility] LABCLIA [id number] [place] [id number] [place] Chloride [Moles/Vol] 104 mmol/L Normal 98-107 [facility] Comment on above: Order Comment: Speci men Type: BLOOD SPECIMENOrdering Facility: [facility] Address: [address] [place], [place] [address] Performed By: #### 2 777-1, , ####[facility] LABIA [id number] [address] [address] [place] CO2 [Moles/Vol] 28 mmol/L Normal 22-30 [facility] Comment on above: Order Comment: Speci men Type: BLOOD SPECIMENOrdering Facility: [facility] Address: [address] [place] [address] Performed By: #### 2 777-1, 58428-8, ####[facility] LABIA [id number] [address] [address] [place] Creatinine [Mass/Vol] 0.97 mg/dL Normal 0.73-1.22 [facility] Comment on above: Order Comment: Speci men Type: BLOOD SPECIMENOrdering Facility: [facility] Address: [address] [place] [address] Performed By: #### 2 777-1, 45919-0, ####[facility] LABCLIA [id number] [place] [address] [place] Creatinine and Glomerular filtration rate.predicted panel (S/P/Bld) 83 mL/min/1.73m??? Normal >=60 [facility] Comment on above: Order Comment: Allegra donis Type: BLOOD SPECIMENOrdering Facility: [facility] Address: [address] [place] [address] Result Comment: Stephanie mated Glomerular Filtration Rate (eGFR) is calculated using the 2020 CKD-EPI creatinine equation. This equation utilizes serum creatinine, sex, and age as parameters. The creatinine assay has traceable calibration to isotope dilution-mass spectrometry. Refer to KDIGO guidelines for clinical interpretation. In patients with unstable renal function, e.g. those with acute kidney injury, the eGFR may not accurately reflect actual GFR. Performed By: #### 2 777-1, 83579-2, ####[facility] LABCLIA [id number] [place] [address] [place] Glucose [Mass/Vol] 136 mg/dL High 74-99 [facility] Comment on above: Order Comment: Allegra donis Type: BLOOD SPECIMENOrdering Facility: [facility] Address: [address] [place] [address] Result Comment: The [place] Diabetes [employer] (ADA) provides guidance for cutoff values for fasting glucose and random glucose. The ADA defines fasting as no caloric intake for at least 8 hours. Fasting plasma glucose results between 100 to 125 mg/dL indicate increased risk for diabetes (prediabetes).Fasting plasma glucose results greater than or equal to 126 mg/dL meet the criteria for diagnosis of diabetes. In the absence of unequivocal hyperglycemia, results should be confirmed by repeat testing. In a patient with classic symptoms of hyperglycemia or hyperglycemic crisis, random plasma glucose results greater than or equal to 200 mg/dL meet the criteria for diagnosis of diabetes.Reference: Standards of Medical Care in Diabetes 2016, [place] [employer]. Diabetes Care. 2016.39(Suppl 1). Performed By: #### 2 777-1, 59630-7, ####[facility] LABCLIA [id number] [address] [address] [place] Potassium [Moles/Vol] 3.8 mmol/L Normal 3.7-5.1 [facility] Comment on above: Order Comment: Speci men Type: BLOOD SPECIMENOrdering Facility: [facility] Address: [address] [place] [address] Performed By: #### 2 777-1, , ####[facility] LABCLIA [id number] [address] [address] [place] Protein [Mass/Vol] 4.9 g/dL Low 6.3-8.0 [facility] Comment on above: Order Comment: Speci men Type: BLOOD SPECIMENOrdering Facility: [facility] Address: [address] [place] [address] Performed By: #### 2 777-1, , ####[facility] LABIA [id number] [address] [address] [place] Sodium [Moles/Vol] 142 mmol/L Normal 136-144 [facility] Comment on above: Order Comment: Speci men Type: BLOOD SPECIMENOrdering Facility: [facility] Address: [address] [place] [address] Performed By: #### 2 777-1, , ####[facility] LABCLIA [id number] [address] [address] [place] Urea nitrogen [Mass/Vol] 38 mg/dL High 9-24 [facility] Comment on above: Order Comment: Speci men Type: BLOOD SPECIMENOrdering Facility: [facility] Address: [address] [place] [address] Performed By: #### 2 777-1, , ####[facility] LABCLIA [id number] [place] [id number] [place] Magnesium SerPl-ncon 06-12 Magnesium [Mass/Vol] 2.1 mg/dL Normal 1.7-2.3 [facility] Comment on above: Order Comment: Speci men Type: BLOOD SPECIMENOrdering Facility: [facility] Address: [address] [place] [address] Performed By: #### 2 777-1, 64548-5, ####[facility] LABCLIA [id number] [place] [address] [place] Phosphate SerPl-mCncon 06-12 Phosphate [Mass/Vol] 1.4 mg/dL Low 2.7-4.8 [facility] Comment on above: Order Comment: Speci men Type: BLOOD SPECIMENOrdering Facility: [facility] Address: [address] [place] [address] Performed By: #### 2 777-1, 35957-1, ####[facility] LABIA [id number] [place] [address] [place] Tacrolimus Bld-ncon 2023 Tacrolimus (Bld) [Mass/Vol] 6.8 ng/mL Normal 5.0-20.0 [facility] Comment on above: Order Comment: Speci men Type: BLOOD SPECIMENOrdering Facility: [facility] Address: [address] [place] [address] Result Comment: Noreen vidualized target levels for [...] situation. Test performed by chemiluminescent immunoassay using [employer] i. Performed By: #### 1 1253-2 ####[facility] LABCLIA [id number] [place] [id number] [place] XR CHEST 1V FRONTALon 2023 XR CHEST 1V FRONTAL Normal [facility] [id number] 06-11-2024 [id number] Normal [facility] ARTERIAL BLOOD GASESon 06-11 Base excess Calc (Bld) [Moles/Vol] 4 mmol/L High 0-2 [facility] Comment on above: Order Comment: Speci men Type: ARTERIAL BLOOD SPECIMENOrdering Facility: [facility] Address: [address] [place] [address] Performed By: #### A LLBG ####[facility] LABCLIA [id number] [place] [address] [place] Body temperature 99.32 [degF] Normal [facility] Comment on above: Order Comment: Speci men Type: ARTERIAL BLOOD SPECIMENOrdering Facility: [facility] Address: [address] [place] [address] Performed By: #### A LLBG ####[facility] LABCLIA [id number] [place] [address] [place] Calcium.ionized (Bld) [Mass/Vol] 1.26 mmol/L Normal 1.08-1.30 [facility] Comment on above: Order Comment: Speci men Type: ARTERIAL BLOOD SPECIMENOrdering Facility: [facility] Address: [address] [place] [address] Performed By: #### A LLBG ####[facility] LABCLIA [id number] [place] [address] [place] Calcium.ionized adjusted to pH 7.4 (BldA) [Moles/Vol] 1.26 mmol/L Normal 1.08-1.30 [facility] Comment on above: Order Comment: Speci men Type: ARTERIAL BLOOD SPECIMENOrdering Facility: [facility] Address: [address] [place] [address] Performed By: #### A LLBG ####[facility] LABCLIA [id number] [place] [address] [place] Carboxyhemoglobin (BldA) [Mass fraction] 0.8 % Normal 0.0-2.0 [facility] [place] Comment on above: Order Comment: Speci men Type: ARTERIAL BLOOD SPECIMENOrdering Facility: [facility] Address: [address] [place] [address] Result Comment: Carb oxyhemoglobin Reference Range for Smokers: 2.0-8.0% Performed By: #### A LLBG ####[facility]IA [id number] [place] [address] [place] CO2 (Bld) [Partial pressure] 48 mm Hg High 36-46 [facility] [place] Comment on above: Order Comment: Speci men Type: ARTERIAL BLOOD SPECIMENOrdering Facility: [facility] Address: [address] [place] [address] Performed By: #### A LLBG ####[facility] [id number] [place] [address] [place] CO2 adjusted to patient's actual temperature (Bld) [Partial pressure] 49 mmHg High 36-46 [facility] [place] Comment on above: Order Comment: Speci men Type: ARTERIAL BLOOD SPECIMENOrdering Facility: [facility] Address: [address] [place] [address] Performed By: #### A LLBG ####[facility] [id number] [place] [address] [place] FIO2 70 % Normal [facility] [place] Comment on above: Order Comment: Speci men Type: ARTERIAL BLOOD SPECIMENOrdering Facility: [facility] Address: [address] [place] [address] Performed By: #### A LLBG ####[facility] [id number] [place] [address] [place] Glucose [Mass/Vol] 159 mg/dL High 60-105 [facility] Comment on above: Order Comment: Speci men Type: ARTERIAL BLOOD SPECIMENOrdering Facility: [facility] Address: [address] [place] [address] Performed By: #### A LLBG ####[facility] LABCLIA [id number] [place] [address] [place] HCO3 (Bld) [Moles/Vol] 29 mmol/L High 22-26 [facility] Comment on above: Order Comment: Speci men Type: ARTERIAL BLOOD SPECIMENOrdering Facility: [facility] Address: [address] [place] [address] Performed By: #### A LLBG ####[facility] LABCLIA [id number] [place] [address] [place] Hematocrit (Bld) [Volume fraction] 39.8 % Normal 39.0-51.0 [facility] [place] Comment on above: Order Comment: Speci men Type: ARTERIAL BLOOD SPECIMENOrdering Facility: [facility] Address: [address] [place] [address] Performed By: #### A LLBG ####[facility] LABCLIA [id number] [place] [address] [place] Hemoglobin (Bld) [Mass/Vol] 13.0 g/dL Normal 13.0-17.0 [facility] [place] Comment on above: Order Comment: Speci men Type: ARTERIAL BLOOD SPECIMENOrdering Facility: [facility] Address: [address] [place] [address] Performed By: #### A LLBG ####[facility]CLIA [id number] [place] [address] [place] Lactate [Moles/Vol] 1.2 mmol/L Normal 0.5-2.2 [facility] Comment on above: Order Comment: Speci men Type: ARTERIAL BLOOD SPECIMENOrdering Facility: [facility] Address: [address] [place] [address] Performed By: #### A LLBG ####[facility] LABCLIA [id number] [address] [address] [place] Methemoglobin (Bld) [Mass fraction] 1.4 % Normal 0.0-1.5 [facility] [place] Comment on above: Order Comment: Speci men Type: ARTERIAL BLOOD SPECIMENOrdering Facility: [facility] Address: [address] [place] [id number] Performed By: #### A LLBG ####[facility] LABCLIA [id number] [place] [id number] [place] O2 THERAPY VENT=Ventilator Normal [facility] [place] Comment on above: Order Comment: Speci men Type: ARTERIAL BLOOD SPECIMENOrdering Facility: [facility] Address: [address] [place], [place] [address] Performed By: #### A LLBG ####[facility] LABCLIA [id number] [place] [id number] [place] Oxygen (Bld) [Partial pressure] 144 mm Hg High 85-95 [facility] [place] Comment on above: Order Comment: Speci men Type: ARTERIAL BLOOD SPECIMENOrdering Facility: [facility] Address: [address] [id number] Performed By: #### A LLBG ####[facility] LABCLIA [id number] [place] [id number] [place] Oxygen adjusted to patient's actual temperature (Bld) [Partial pressure] 146 mmHg High 85-95 [facility] [place] Comment on above: Order Comment: Speci men Type: ARTERIAL BLOOD SPECIMENOrdering Facility: [facility] Address: [address] [place] [address] Performed By: #### A LLBG ####[facility]CLIA [id number] [address] [address] [place] Oxyhemoglobin (BldA) [Mass fraction] 97 % Normal 95-98 [facility] [place] Comment on above: Order Comment: Speci men Type: ARTERIAL BLOOD SPECIMENOrdering Facility: [facility] Address: [address] [place] [address] Performed By: #### A LLBG ####[facility]CLIA [id number] [place] [address] [place] pH (Bld) 7.40 [pH] Normal 7.35-7.45 [facility] [place] Comment on above: Order Comment: Speci men Type: ARTERIAL BLOOD SPECIMENOrdering Facility: [facility] Address: [address] [place] [address] Performed By: #### A LLBG ####[facility] LABCLIA [id number] [place] [address] [place] pH adjusted to patient's actual temperature (Bld) 7.40 Normal 7.35-7.45 [facility] Comment on above: Order Comment: Speci men Type: ARTERIAL BLOOD SPECIMENOrdering Facility: [facility] Address: [address] [place] [address] Performed By: #### A LLBG ####[facility] [id number] [place] [address] [place] PO2 / FIO2 RATIO 206 mmHg Low >300 [facility] Comment on above: Order Comment: Speci men Type: ARTERIAL BLOOD SPECIMENOrdering Facility: [facility] Address: [address] [place] [address] Performed By: #### A LLBG ####[facility] LABCLIA [id number] [place] [address] [place] Potassium [Moles/Vol] 3.7 mmol/L Normal 3.5-5.0 [facility] Comment on above: Order Comment: Speci men Type: ARTERIAL BLOOD SPECIMENOrdering Facility: [facility] Address: [address] [place] [address] Performed By: #### A LLBG ####[facility] LABCLIA [id number] [place] [address] [place] Sodium [Moles/Vol] 140 mmol/L Normal 136-144 [facility] Comment on above: Order Comment: Speci men Type: ARTERIAL BLOOD SPECIMENOrdering Facility: [facility] Address: [address] [place] [address] Performed By: #### A LLBG ####[facility] LABCLIA [id number] [place] [address] [place] Base excess Calc (Bld) [Moles/Vol] 6 mmol/L High 0-2 [facility] [place] Comment on above: Order Comment: Speci men Type: ARTERIAL BLOOD SPECIMENOrdering Facility: [facility] Address: [address] [place] [address] Performed By: #### A LLBG ####[facility] LABCLIA [id number] [place] [address] [place] Body temperature 100.04 [degF] Normal [facility] Comment on above: Order Comment: Speci men Type: ARTERIAL BLOOD SPECIMENOrdering Facility: [facility] Address: [address] [place] [address] Performed By: #### A LLBG ####[facility]CLIA [id number] [place] [address] [place] Calcium.ionized (Bld) [Mass/Vol] 1.25 mmol/L Normal 1.08-1.30 [facility] [place] Comment on above: Order Comment: Speci men Type: ARTERIAL BLOOD SPECIMENOrdering Facility: [facility] Address: [address] [place] [address] Performed By: #### A LLBG ####[facility]CLIA [id number] [place] [address] [place] Calcium.ionized adjusted to pH 7.4 (BldA) [Moles/Vol] 1.26 mmol/L Normal 1.08-1.30 [facility] [place] Comment on above: Order Comment: Speci men Type: ARTERIAL BLOOD SPECIMENOrdering Facility: [facility] Address: [address] [place] [address] Performed By: #### A LLBG ####[facility]CLIA [id number] [place] [address] [place] Carboxyhemoglobin (BldA) [Mass fraction] 0.9 % Normal 0.0-2.0 [facility] Comment on above: Order Comment: Speci men Type: ARTERIAL BLOOD SPECIMENOrdering Facility: [facility] Address: [address] [place] [address] Result Comment: Carb oxyhemoglobin Reference Range for Smokers: 2.0-8.0% Performed By: #### A LLBG ####[facility]CLIA [id number] [place] [address] [place] CO2 (Bld) [Partial pressure] 49 mm Hg High 36-46 [facility] [place] Comment on above: Order Comment: Speci men Type: ARTERIAL BLOOD SPECIMENOrdering Facility: [facility] Address: [address] [place] [address] Performed By: #### A LLBG ####[facility]CLIA [id number] [place] [address] [place] CO2 adjusted to patient's actual temperature (Bld) [Partial pressure] 51 mmHg High 36-46 [facility] [place] Comment on above: Order Comment: Speci men Type: ARTERIAL BLOOD SPECIMENOrdering Facility: [facility] Address: [address] [place] [address] Performed By: #### A LLBG ####[facility]CLIA [id number] [place] [address] [place] FIO2 80 % Normal [facility] [place] Comment on above: Order Comment: Speci men Type: ARTERIAL BLOOD SPECIMENOrdering Facility: [facility] Address: [address] [place] [address] Performed By: #### A LLBG ####[facility]CLIA [id number] [place] [address] [place] Glucose [Mass/Vol] 176 mg/dL High 60-105 [facility] Comment on above: Order Comment: Speci men Type: ARTERIAL BLOOD SPECIMENOrdering Facility: [facility] Address: [address] [place] [address] Performed By: #### A LLBG ####[facility]CLIA [id number] [place] [address] [place] HCO3 (Bld) [Moles/Vol] 31 mmol/L High 22-26 [facility] Comment on above: Order Comment: Speci men Type: ARTERIAL BLOOD SPECIMENOrdering Facility: [facility] Address: [address] [place] [address] Performed By: #### A LLBG ####[facility]CLIA [id number] [place] [address] [place] Hematocrit (Bld) [Volume fraction] 41.0 % Normal 39.0-51.0 [facility] Comment on above: Order Comment: Speci men Type: ARTERIAL BLOOD SPECIMENOrdering Facility: [facility] Address: [address] [place] [address] Performed By: #### A LLBG ####[facility]CLIA [id number] [place] [address] [place] Hemoglobin (Bld) [Mass/Vol] 13.4 g/dL Normal 13.0-17.0 [facility] [place] Comment on above: Order Comment: Speci men Type: ARTERIAL BLOOD SPECIMENOrdering Facility: [facility] Address: [address] [place] [address] Performed By: #### A LLBG ####[facility]CLIA [id number] [place] [address] [place] Lactate [Moles/Vol] 1.2 mmol/L Normal 0.5-2.2 [facility] Comment on above: Order Comment: Speci men Type: ARTERIAL BLOOD SPECIMENOrdering Facility: [facility] Address: [address] [place] [address] Performed By: #### A LLBG ####[facility] LABCLIA [id number] [address] [address] [place] Methemoglobin (Bld) [Mass fraction] 1.3 % Normal 0.0-1.5 [facility] Comment on above: Order Comment: Speci men Type: ARTERIAL BLOOD SPECIMENOrdering Facility: [facility] Address: [address] [id number] Performed By: #### A LLBG ####[facility] LABCLIA [id number] [place] [id number] [place] O2 THERAPY VENT=Ventilator Normal [facility] Comment on above: Order Comment: Speci men Type: ARTERIAL BLOOD SPECIMENOrdering Facility: [facility] Address: [address] [id number] Performed By: #### A LLBG ####[facility] LABCLIA [id number] [place] [id number] [place] Oxygen (Bld) [Partial pressure] 107 mm Hg High 85-95 [facility] Comment on above: Order Comment: Speci men Type: ARTERIAL BLOOD SPECIMENOrdering Facility: [facility] Address: [address] [place] [address] Performed By: #### A LLBG ####[facility] LABCLIA [id number] [address] [address] [place] Oxygen adjusted to patient's actual temperature (Bld) [Partial pressure] 112 mmHg High 85-95 [facility] Comment on above: Order Comment: Speci men Type: ARTERIAL BLOOD SPECIMENOrdering Facility: [facility] Address: [address] [place] [address] Performed By: #### A LLBG ####[facility] LABCLIA [id number] [place] [id number] [place] Oxyhemoglobin (BldA) [Mass fraction] 96 % Normal 95-98 [facility] Comment on above: Order Comment: Speci men Type: ARTERIAL BLOOD SPECIMENOrdering Facility: [facility] Address: [address] [place], [place] [id number] Performed By: #### A LLBG ####[facility]CLIA [id number] [place] [address] [place] pH (Bld) 7.42 [pH] Normal 7.35-7.45 [facility] Comment on above: Order Comment: Speci men Type: ARTERIAL BLOOD SPECIMENOrdering Facility: [facility] Address: [address] [place] [address] Performed By: #### A LLBG ####[facility]CLIA [id number] [place] [address] [place] pH adjusted to patient's actual temperature (Bld) 7.41 Normal 7.35-7.45 [facility] Comment on above: Order Comment: Speci men Type: ARTERIAL BLOOD SPECIMENOrdering Facility: [facility] Address: [address] [place], [place] [id number] Performed By: #### A LLBG ####[facility]CLIA [id number] [place] [address] [place] PO2 / FIO2 RATIO 134 mmHg Low >300 [facility] Comment on above: Order Comment: Speci men Type: ARTERIAL BLOOD SPECIMENOrdering Facility: [facility] Address: [address] [place] [address] Performed By: #### A LLBG ####[facility]CLIA [id number] [place] [address] [place] Potassium [Moles/Vol] 3.1 mmol/L Low 3.5-5.0 [facility] Comment on above: Order Comment: Speci men Type: ARTERIAL BLOOD SPECIMENOrdering Facility: [facility] Address: [address] [place] [address] Performed By: #### A LLBG ####[facility]CLIA [id number] [place] [address] [place] Sodium [Moles/Vol] 139 mmol/L Normal 136-144 [facility] Comment on above: Order Comment: Speci men Type: ARTERIAL BLOOD SPECIMENOrdering Facility: [facility] Address: [address] [place] [address] Performed By: #### A LLBG ####[facility]CLIA [id number] [place] [address] [place] Base excess Calc (Bld) [Moles/Vol] 6 mmol/L High 0-2 [facility] Comment on above: Order Comment: Speci men Type: ARTERIAL BLOOD SPECIMENOrdering Facility: [facility] Address: [address] [place] [address] Performed By: #### A LLBG ####[facility]CLIA [id number] [place] [address] [place] Body temperature 98.6 [degF] Normal [facility] Comment on above: Order Comment: Speci men Type: ARTERIAL BLOOD SPECIMENOrdering Facility: [facility] Address: [address] [place] [address] Performed By: #### A LLBG ####[facility]CLIA [id number] [place] [address] [place] Calcium.ionized (Bld) [Mass/Vol] 1.23 mmol/L Normal 1.08-1.30 [facility] Comment on above: Order Comment: Speci men Type: ARTERIAL BLOOD SPECIMENOrdering Facility: [facility] Address: [address] [place] [address] Performed By: #### A LLBG ####[facility]CLIA [id number] [place] [address] [place] Calcium.ionized adjusted to pH 7.4 (BldA) [Moles/Vol] 1.25 mmol/L Normal 1.08-1.30 [facility] Comment on above: Order Comment: Speci men Type: ARTERIAL BLOOD SPECIMENOrdering Facility: [facility] Address: [address] [place] [address] Performed By: #### A LLBG ####[facility]CLIA [id number] [place] [address] [place] Carboxyhemoglobin (BldA) [Mass fraction] 0.6 % Normal 0.0-2.0 [facility] Comment on above: Order Comment: Speci men Type: ARTERIAL BLOOD SPECIMENOrdering Facility: [facility] Address: [address] [place] [address] Result Comment: Carb oxyhemoglobin Reference Range for Smokers: 2.0-8.0% Performed By: #### A LLBG ####[facility]CLIA [id number] [place] [address] [place] CO2 (Bld) [Partial pressure] 45 mm Hg Normal 36-46 [facility] Comment on above: Order Comment: Speci men Type: ARTERIAL BLOOD SPECIMENOrdering Facility: [facility] Address: [address] [place] [address] Performed By: #### A LLBG ####[facility]CLIA [id number] [place] [address] [place] FIO2 100 % Normal [facility] Comment on above: Order Comment: Speci men Type: ARTERIAL BLOOD SPECIMENOrdering Facility: [facility] Address: [address] [place] [address] Performed By: #### A LLBG ####[facility]CLIA [id number] [place] [address] [place] Glucose [Mass/Vol] 180 mg/dL High 60-105 [facility] Comment on above: Order Comment: Speci men Type: ARTERIAL BLOOD SPECIMENOrdering Facility: [facility] Address: [address] [place] [address] Performed By: #### A LLBG ####[facility]CLIA [id number] [place] [address] [place] HCO3 (Bld) [Moles/Vol] 30 mmol/L High 22-26 [facility] Comment on above: Order Comment: Speci men Type: ARTERIAL BLOOD SPECIMENOrdering Facility: [facility] Address: [address] [place] [address] Performed By: #### A LLBG ####[facility]CLIA [id number] [place] [address] [place] Hematocrit (Bld) [Volume fraction] 42.5 % Normal 39.0-51.0 [facility] Comment on above: Order Comment: Speci men Type: ARTERIAL BLOOD SPECIMENOrdering Facility: [facility] Address: [address] [place] [address] Performed By: #### A LLBG ####[facility]CLIA [id number] [place] [address] [place] Hemoglobin (Bld) [Mass/Vol] 13.8 g/dL Normal 13.0-17.0 [facility] Comment on above: Order Comment: Speci men Type: ARTERIAL BLOOD SPECIMENOrdering Facility: [facility] Address: [address] [place] [address] Performed By: #### A LLBG ####[facility]CLIA [id number] [place] [address] [place] Lactate [Moles/Vol] 1.4 mmol/L Normal 0.5-2.2 [facility] Comment on above: Order Comment: Speci men Type: ARTERIAL BLOOD SPECIMENOrdering Facility: [facility] Address: [address] [place] [address] Performed By: #### A LLBG ####[facility]CLIA [id number] [place] [address] [place] Methemoglobin (Bld) [Mass fraction] 0.6 % Normal 0.0-1.5 [facility] Comment on above: Order Comment: Speci men Type: ARTERIAL BLOOD SPECIMENOrdering Facility: [facility] Address: [address] [place] [address] Performed By: #### A LLBG ####[facility]CLIA [id number] [place] [address] [place] O2 THERAPY VENT=Ventilator Normal [facility] Comment on above: Order Comment: Speci men Type: ARTERIAL BLOOD SPECIMENOrdering Facility: [facility] Address: [address] [place] [address] Performed By: #### A LLBG ####[facility]CL[facility] [id number] [place] [address] [place] Oxygen (Bld) [Partial pressure] 201 mm Hg High 85-95 [facility] Comment on above: Order Comment: Speci men Type: ARTERIAL BLOOD SPECIMENOrdering Facility: [facility] Address: [address] [place] [address] Performed By: #### A LLBG ####[facility]CLIA [id number] [place] [address] [place] Oxyhemoglobin (BldA) [Mass fraction] 98 % Normal 95-98 [facility] Comment on above: Order Comment: Speci men Type: ARTERIAL BLOOD SPECIMENOrdering Facility: [facility] Address: [address] [place] [address] Performed By: #### A LLBG ####[facility]CL[facility] [id number] [place] [address] [place] PEEP/CPAP 10 cmH2O Normal [facility] Comment on above: Order Comment: Speci men Type: ARTERIAL BLOOD SPECIMENOrdering Facility: [facility] Address: [address] [place] [address] Performed By: #### A LLBG ####[facility]CLIA [id number] [place] [address] [place] pH (Bld) 7.44 [pH] Normal 7.35-7.45 [facility] Comment on above: Order Comment: Speci men Type: ARTERIAL BLOOD SPECIMENOrdering Facility: [facility] Address: [address] [place] [address] Performed By: #### A LLBG ####[facility]CL[facility] [id number] [place] [address] [place] PO2 / FIO2 RATIO 201 mmHg Low >300 [facility] Comment on above: Order Comment: Speci men Type: ARTERIAL BLOOD SPECIMENOrdering Facility: [facility] Address: [address] [place] [address] Performed By: #### A LLBG ####[facility]CL[facility] [id number] [place] [address] [place] Potassium [Moles/Vol] 3.8 mmol/L Normal 3.5-5.0 [facility] Comment on above: Order Comment: Speci men Type: ARTERIAL BLOOD SPECIMENOrdering Facility: [facility] Address: [address] [place] [address] Performed By: #### A LLBG ####[facility]CL[facility] [id number] [place] [address] [place] Sodium [Moles/Vol] 140 mmol/L Normal 136-144 [facility] Comment on above: Order Comment: Speci men Type: ARTERIAL BLOOD SPECIMENOrdering Facility: [facility] Address: [address] [place] [address] Performed By: #### A LLBG ####[facility] [id number] [place] [address] [place] Bacteria Spec Resp Culton Bacteria identified Respiratory culture Nom (Unsp spec) ORGANISM ID: 1 Rare normal respiratory kartik GRAM STAIN: No organisms seen Moderate Polymorphonuclear leukocytes Rare Epithelial cells Abnormal [facility] Comment on above: Performed By: #### 3 2355-0 ####[facility] [id number] [place] [address] [place] CBC panel Auto (Bld)on 06-11 Erythrocyte distribution width (RBC) [Ratio] 14.4 % Normal 11.5-15.0 [facility] Comment on above: Order Comment: Speci men Type: BLOOD SPECIMENOrdering Facility: [facility] Address: [address] [place] [address] Performed By: #### 5 8410-2 ####[facility]IA [id number] [address] [place] Hematocrit (Bld) [Volume fraction] 41.4 % Normal 39.0-51.0 [facility] [place] Comment on above: Order Comment: Speci men Type: BLOOD SPECIMENOrdering Facility: [facility] Address: [address] [place] [address] Performed By: #### 5 8410-2 ####[facility] [id number] [place] [address] [place] Hemoglobin (Bld) [Mass/Vol] 14.2 g/dL Normal 13.0-17.0 [facility] [place] Comment on above: Order Comment: Speci men Type: BLOOD SPECIMENOrdering Facility: [facility] Address: [address] [place] [address] Performed By: #### 5 8410-2 ####[facility] [id number] [place] [address] [place] MCH (RBC) [Entitic mass] 30.5 pg Normal 26.0-34.0 [facility] [place] Comment on above: Order Comment: Speci men Type: BLOOD SPECIMENOrdering Facility: [facility] Address: [address] [place] [address] Performed By: #### 5 8410-2 ####[facility] [id number] [place] [address] [place] MCHC (RBC) [Mass/Vol] 34.3 g/dL Normal 30.5-36.0 [facility] Comment on above: Order Comment: Speci men Type: BLOOD SPECIMENOrdering Facility: [facility] Address: [address] [place] [address] Performed By: #### 5 8410-2 ####[facility] [id number] [place] [address] [place] MCV (RBC) [Entitic vol] 89.0 fL Normal 80.0-100.0 [facility] Comment on above: Order Comment: Speci men Type: BLOOD SPECIMENOrdering Facility: [facility] Address: [address] [place] [address] Performed By: #### 5 8410-2 ####[facility] [id number] [place] [address] [place] Nucleated RBC (Bld) [#/Vol] 10*3/uL Normal <0.01 [facility] [place] Comment on above: Order Comment: Speci men Type: BLOOD SPECIMENOrdering Facility: [facility] Address: [address] [place] [address] Performed By: #### 5 8410-2 ####[facility] [id number] [place] [address] [place] Platelet mean volume (Bld) [Entitic vol] 8.9 fL Low 9.0-12.7 [facility] [place] Comment on above: Order Comment: Speci men Type: BLOOD SPECIMENOrdering Facility: [facility] Address: [address] [place] [address] Performed By: #### 5 8410-2 ####[facility]IA [id number] [address] [id number] [address] [place] Platelets (Bld) [#/Vol] 253 10*3/uL Normal 150-400 [facility] [place] Comment on above: Order Comment: Speci men Type: BLOOD SPECIMENOrdering Facility: [facility] Address: [address] [place] [address] Performed By: #### 5 8410-2 ####[facility] LABCLIA [id number] [place] [address] [place] RBC (Bld) [#/Vol] 4.65 10*6/uL Normal 4.20-6.00 [facility] Comment on above: Order Comment: Speci men Type: BLOOD SPECIMENOrdering Facility: [facility] Address: [address] [place] [address] Performed By: #### 5 8410-2 ####[facility] LABCLIA [id number] [place] [address] [place] WBC (Bld) [#/Vol] 12.42 10*3/uL High 3.70-11.00 [facility] Comment on above: Order Comment: Speci men Type: BLOOD SPECIMENOrdering Facility: [facility] Address: [address] [place] [address] Performed By: #### 5 8410-2 ####[facility] LABCLIA [id number] [place] [address] [place] Comprehensive metabolic 2000 panelon 06-11-2024 Albumin [Mass/Vol] 3.1 g/dL Low 3.9-4.9 [facility] Comment on above: Order Comment: Speci men Type: BLOOD SPECIMENOrdering Facility: [facility] Address: [address] [place] [address] Performed By: #### 2 4323-8, 38619-5, 2777-1 ####[facility] LABCLIA [id number] [place] [address] [place] ALP [Catalytic activity/Vol] 82 U/L Normal 38-113 [facility] [place] Comment on above: Order Comment: Speci men Type: BLOOD SPECIMENOrdering Facility: [facility] Address: [address] [place] [address] Performed By: #### 2 4323-8, , 2776-06 ####[facility] LABCLIA [id number] [place] [id number] [place] ALT [Catalytic activity/Vol] 24 U/L Normal 10-54 [facility] [place] Comment on above: Order Comment: Speci men Type: BLOOD SPECIMENOrdering Facility: [facility] Address: [address] [place] [address] Performed By: #### 2 4323-8, , 2776-06 ####[facility] LABCLIA [id number] [place] [address] [place] Anion gap [Moles/Vol] 12 mmol/L Normal 8-15 [facility] Comment on above: Order Comment: Speci men Type: BLOOD SPECIMENOrdering Facility: [facility] Address: [address] [place] [address] Performed By: #### 2 4323-8, , 2776-06 ####[facility] LABCLIA [id number] [place] [address] [place] AST [Catalytic activity/Vol] 16 U/L Normal 14-40 [facility] [place] Comment on above: Order Comment: Speci men Type: BLOOD SPECIMENOrdering Facility: [facility] Address: [address] [place], [place] [address] Performed By: #### 2 4323-8, , 2776-06 ####[facility] LABCLIA [id number] [place] [id number] [place] Bilirubin [Mass/Vol] 0.5 mg/dL Normal 0.2-1.3 [facility] Comment on above: Order Comment: Speci men Type: BLOOD SPECIMENOrdering Facility: [facility] Address: [address] [place] [address] Performed By: #### 2 4323-8, , 2776-06 ####[facility] LABCLIA [id number] [address] [address] [place] Calcium [Mass/Vol] 8.8 mg/dL Normal 8.5-10.2 [facility] Comment on above: Order Comment: Speci men Type: BLOOD SPECIMENOrdering Facility: [facility] Address: [address] [place] [address] Performed By: #### 2 4323-8, , 2776-06 ####[facility] LABCLIA [id number] [place] [address] [place] Chloride [Moles/Vol] 102 mmol/L Normal 98-107 [facility] Comment on above: Order Comment: Speci men Type: BLOOD SPECIMENOrdering Facility: [facility] Address: [address] [place], [place] [address] Performed By: #### 2 4323-8, , 2776-06 ####[facility] LABCLIA [id number] [place] [address] [place] CO2 [Moles/Vol] 29 mmol/L Normal 22-30 [facility] [place] Comment on above: Order Comment: Speci men Type: BLOOD SPECIMENOrdering Facility: [facility] Address: [address] [place] [address] Performed By: #### 2 4323-8, , 2776-06 ####[facility] LABCLIA [id number] [address] [address] [place] Creatinine [Mass/Vol] 0.69 mg/dL Low 0.73-1.22 [facility] Comment on above: Order Comment: Speci men Type: BLOOD SPECIMENOrdering Facility: [facility] Address: [address] [place] [address] Performed By: #### 2 4323-8, 78726-6, 2776-06 ####[facility]IA [id number] [place] [id number] [place] Creatinine and Glomerular filtration rate.predicted panel (S/P/Bld) 98 mL/min/1.73m??? Normal >=60 [facility] [place] Comment on above: Order Comment: Allegra donis Type: BLOOD SPECIMENOrdering Facility: [facility] Address: [address] [place] [address] Result Comment: Stephanie mated Glomerular Filtration Rate (eGFR) is calculated using the 2020 CKD-EPI creatinine equation. This equation utilizes serum creatinine, sex, and age as parameters. The creatinine assay has traceable calibration to isotope dilution-mass spectrometry. Refer to KDIGO guidelines for clinical interpretation. In patients with unstable renal function, e.g. those with acute kidney injury, the eGFR may not accurately reflect actual GFR. Performed By: #### 2 4323-8, , 2776-06 ####[facility]IA [id number] [place] [address] [place] Glucose [Mass/Vol] 175 mg/dL High 74-99 [facility] Comment on above: Order Comment: Allegra donis Type: BLOOD SPECIMENOrdering Facility: [facility] Address: [address] [place] [address] Result Comment: The [place] Diabetes [employer] (ADA) provides guidance for cutoff values for fasting glucose and random glucose. The ADA defines fasting as no caloric intake for at least 8 hours. Fasting plasma glucose results between 100 to 125 mg/dL indicate increased risk for diabetes (prediabetes).Fasting plasma glucose results greater than or equal to 126 mg/dL meet the criteria for diagnosis of diabetes. In the absence of unequivocal hyperglycemia, results should be confirmed by repeat testing. In a patient with classic symptoms of hyperglycemia or hyperglycemic crisis, random plasma glucose results greater than or equal to 200 mg/dL meet the criteria for diagnosis of diabetes.Reference: Standards of Medical Care in Diabetes 2016, [place] [employer]. Diabetes Care. 2016.39(Suppl 1). Performed By: #### 2 4323-8, , 2776-06 ####[facility] LABCLIA [id number] [address] [address] [place] Potassium [Moles/Vol] 3.2 mmol/L Low 3.7-5.1 [facility] Comment on above: Order Comment: Speci men Type: BLOOD SPECIMENOrdering Facility: [facility] Address: [address] [place] [address] Performed By: #### 2 4323-8, , 2776-06 ####[facility] LABCLIA [id number] [place] [address] [place] Protein [Mass/Vol] 5.3 g/dL Low 6.3-8.0 [facility] Comment on above: Order Comment: Speci men Type: BLOOD SPECIMENOrdering Facility: [facility] Address: [address] [place] [address] Performed By: #### 2 432-8, , 2776-06 ####[facility] LABCLIA [id number] [place] [address] [place] Sodium [Moles/Vol] 143 mmol/L Normal 136-144 [facility] Comment on above: Order Comment: Speci men Type: BLOOD SPECIMENOrdering Facility: [facility] Address: [address] [place] [address] Performed By: #### 2 4323-8, , 2776-06 ####[facility] LABCLIA [id number] [address] [address] [place] Urea nitrogen [Mass/Vol] 25 mg/dL High 9-24 [facility] [place] Comment on above: Order Comment: Speci men Type: BLOOD SPECIMENOrdering Facility: [facility] Address: [address] [place], [place] [address] Performed By: #### 2 4323-8, , 2776-06 ####[facility] LABCLIA [id number] [place] [id number] [place] Magnesium SerPl-ncon 06-11 Magnesium [Mass/Vol] 2.2 mg/dL Normal 1.7-2.3 [facility] Comment on above: Order Comment: Alelgra donis Type: BLOOD SPECIMENOrdering Facility: [facility] Address: [address] [place] [address] Performed By: #### 2 4323-8, 97153-8, 2777-1 ####[facility]IA [id number] [place] [address] [place] Phosphate SerPl-ncon 06-11 Phosphate [Mass/Vol] 2.1 mg/dL Low 2.7-4.8 [facility] Comment on above: Order Comment: Allegra donis Type: BLOOD SPECIMENOrdering Facility: [facility] Address: [address] [place] [address] Result Comment: Resu lt rechecked. Performed By: #### 2 4323-8, 85275-4, 2777-1 ####[facility] [id number] [place] [address] [place] THERAPY NTon 06-11-2024 THERAPY NT Normal [facility] Tacrolimus Bld-mCncon 2023 Tacrolimus (Bld) [Mass/Vol] 7.8 ng/mL Normal 5.0-20.0 [facility] Comment on above: Order Comment: Allegra donis Type: BLOOD SPECIMENOrdering Facility: [facility] Address: [address] [place] [address] Result Comment: Noreen vidualized target levels for [...] Alinity i. Performed By: #### 1 1253-2 ####[facility] LABCLIA [id number] [place] [address] [place] Urinalysis complete panel (U )on 06-11-2024 Bacteria LM.HPF (Urine sed) [#/Area] Negative Normal Negative [facility] Comment on above: Order Comment: Speci men Type: URINE SPECIMENOrdering Facility: [facility] Address: [address] [place] [address] Performed By: #### 2 4356-8 ####[facility] [id number] [place] [address] [place] Bilirubin Ql (U) Negative Normal Negative [facility] Comment on above: Order Comment: Speci men Type: URINE SPECIMENOrdering Facility: [facility] Address: [address] [place] [address] Performed By: #### 2 4356-8 ####[facility] [id number] [place] [address] [place] Clarity (Unsp spec) Cloudy Abnormal Clear [facility] Comment on above: Order Comment: Speci men Type: URINE SPECIMENOrdering Facility: [facility] Address: [address] [place] [address] Performed By: #### 2 4356-8 ####[facility] [id number] [place] [address] [place] [facility] Color (U) Dark Yellow Abnormal Yellow [facility] Comment on above: Order Comment: Speci men Type: URINE SPECIMENOrdering Facility: [facility] Address: [address] [place] [address] Performed By: #### 2 4356-8 ####[facility] [id number] [place] [address] [place] Epithelial cells LM.HPF (Urine sed) [#/Area] Few Normal [facility] Comment on above: Order Comment: Speci men Type: URINE SPECIMENOrdering Facility: [facility] Address: [address] [place] [address] Performed By: #### 2 4356-8 ####[facility] LABCLIA [id number] [place] [address] [place] Glucose Test strip (U) [Mass/Vol] Negative Normal Negative [facility] Comment on above: Order Comment: Speci men Type: URINE SPECIMENOrdering Facility: [facility] Address: [address] [place] [address] Performed By: #### 2 4356-8 ####[facility] LABCLIA [id number] [place] [address] [place] Hemoglobin Ql (U) Negative Normal Negative [facility] Comment on above: Order Comment: Speci men Type: URINE SPECIMENOrdering Facility: [facility] Address: [address] [place] [address] Performed By: #### 2 4356-8 ####[facility] LABCLIA [id number] [place] [address] [place] Hyaline casts (Urine sed) [#/Area] /[LPF] Abnormal 0 /LPF [facility] Comment on above: Order Comment: Speci men Type: URINE SPECIMENOrdering Facility: [facility] Address: [address] [place] [address] Performed By: #### 2 4356-8 ####[facility] LABCLIA [id number] [place] [address] [place] Ketones Ql (U) Trace Abnormal Negative [facility] Comment on above: Order Comment: Speci men Type: URINE SPECIMENOrdering Facility: [facility] Address: [address] [place] [address] Performed By: #### 2 4356-8 ####[facility] LABCLIA [id number] [place] [address] [place] Leukocyte esterase Test strip Ql (U) 1+ Abnormal Negative [facility] Comment on above: Order Comment: Speci men Type: URINE SPECIMENOrdering Facility: [facility] Address: [address] [place] [address] Performed By: #### 2 4356-8 ####[facility]IA [id number] [place] [address] [place] Nitrite Ql (U) Negative Normal Negative [facility] Comment on above: Order Comment: Speci men Type: URINE SPECIMENOrdering Facility: [facility] Address: [address] [place] [address] Performed By: #### 2 4356-8 ####[facility] [id number] [place] [address] [place] pH (U) 5.0 [pH] Normal <8.5 [facility] Comment on above: Order Comment: Speci men Type: URINE SPECIMENOrdering Facility: [facility] Address: [address] [place] [address] Performed By: #### 2 4356-8 ####[facility] [id number] [place] [address] [place] Protein (U) [Mass/Vol] 2+ Abnormal Negative [facility] Comment on above: Order Comment: Speci men Type: URINE SPECIMENOrdering Facility: [facility] Address: [address] [place] [address] Performed By: #### 2 4356-8 ####[facility] [id number] [place] [address] [place] RBC LM.HPF (Urine sed) [#/Area] /[HPF] Abnormal 0-2 /HPF [facility] Comment on above: Order Comment: Speci men Type: URINE SPECIMENOrdering Facility: [facility] Address: [address] [place] [address] Performed By: #### 2 4356-8 ####[facility] [id number] [place] [address] [place] Specific gravity (U) [Rel density] 1.035 High 1.005-1.030 [facility] Comment on above: Order Comment: Speci men Type: URINE SPECIMENOrdering Facility: [facility] Address: [address] [place] [address] Performed By: #### 2 4356-8 ####[facility] [id number] [place] [address] [place] Urobilinogen Ql (U) 1.0 EU/dL Normal 0.2-1.0 EU/dL [facility] Comment on above: Order Comment: Speci men Type: URINE SPECIMENOrdering Facility: [facility] Address: [address] [place] [address] Performed By: #### 2 4356-8 ####[facility] [id number] [place] [address] [place] WBC LM.HPF (Urine sed) [#/Area] 6-10 /HPF Abnormal 0-5 /HPF [facility] Comment on above: Order Comment: Speci men Type: URINE SPECIMENOrdering Facility: [facility] Address: [address] [place] [address] Performed By: #### 2 4356-8 ####[facility] [id number] [place] [address] [place] XR CHEST 1V FRONTAL PORTon 1 08-12-2023 XR CHEST 1V FRONTAL PORT Normal [facility] CASE MANAGEMon 06-10-2024 CASE MANAGEM Normal [facility] CBC panel Auto (Bld)on 06-10 Erythrocyte distribution width (RBC) [Ratio] 14.0 % Normal 11.5-15.0 [facility] Comment on above: Order Comment: Speci men Type: BLOOD SPECIMENOrdering Facility: [facility] Address: [address] [place] [address] Performed By: #### 5 8410-2 ####[facility] LABCLIA [id number] [place] [address] [place] Hematocrit (Bld) [Volume fraction] 44.0 % Normal 39.0-51.0 [facility] Comment on above: Order Comment: Speci men Type: BLOOD SPECIMENOrdering Facility: [facility] Address: [address] [place] [address] Performed By: #### 5 8410-2 ####[facility]CLIA [id number] [place] [address] [place] Hemoglobin (Bld) [Mass/Vol] 14.7 g/dL Normal 13.0-17.0 [facility] Comment on above: Order Comment: Speci men Type: BLOOD SPECIMENOrdering Facility: [facility] Address: [address] [place] [address] Performed By: #### 5 8410-2 ####[facility] LABCLIA [id number] [place] [address] [place] MCH (RBC) [Entitic mass] 29.9 pg Normal 26.0-34.0 [facility] Comment on above: Order Comment: Speci men Type: BLOOD SPECIMENOrdering Facility: [facility] Address: [address] [place] [address] Performed By: #### 5 8410-2 ####[facility]CLIA [id number] [place] [address] [place] MCHC (RBC) [Mass/Vol] 33.4 g/dL Normal 30.5-36.0 [facility] Comment on above: Order Comment: Speci men Type: BLOOD SPECIMENOrdering Facility: [facility] Address: [address] [place] [address] Performed By: #### 5 8410-2 ####[facility]CLIA [id number] [place] [address] [place] MCV (RBC) [Entitic vol] 89.4 fL Normal 80.0-100.0 [facility] Comment on above: Order Comment: Speci men Type: BLOOD SPECIMENOrdering Facility: [facility] Address: [address] [place] [address] Performed By: #### 5 8410-2 ####[facility] [id number] [place] [address] [place] Nucleated RBC (Bld) [#/Vol] 10*3/uL Normal <0.01 [facility] Comment on above: Order Comment: Speci men Type: BLOOD SPECIMENOrdering Facility: [facility] Address: [address] [place] [address] Performed By: #### 5 8410-2 ####[facility] [id number] [place] [address] [place] Platelet mean volume (Bld) [Entitic vol] 9.2 fL Normal 9.0-12.7 [facility] Comment on above: Order Comment: Speci men Type: BLOOD SPECIMENOrdering Facility: [facility] Address: [address] [place] [address] Performed By: #### 5 8410-2 ####[facility] [id number] [place] [address] [place] Platelets (Bld) [#/Vol] 229 10*3/uL Normal 150-400 [facility] Comment on above: Order Comment: Speci men Type: BLOOD SPECIMENOrdering Facility: [facility] Address: [address] [place] [address] Performed By: #### 5 8410-2 ####[facility] [id number] [place] [address] [place] RBC (Bld) [#/Vol] 4.92 10*6/uL Normal 4.20-6.00 [facility] Comment on above: Order Comment: Speci men Type: BLOOD SPECIMENOrdering Facility: [facility] Address: [address] [place] [address] Performed By: #### 5 8410-2 ####[facility] LABCLIA [id number] [place] [id number] [place] WBC (Bld) [#/Vol] 12.14 10*3/uL High 3.70-11.00 [facility] Comment on above: Order Comment: Speci men Type: BLOOD SPECIMENOrdering Facility: [facility] Address: [address] [place] [address] Performed By: #### 5 8410-2 ####[facility]CL[facility] [id number] [place] [address] [place] CONSULTon 06-10-2024 CONSULT Normal [facility] CONSULT PROGon 06-10-2024 CONSULT PROG Normal [facility] Comprehensive metabolic 2000 panelon 06-10-2024 Albumin [Mass/Vol] 3.2 g/dL Low 3.9-4.9 [facility] Comment on above: Order Comment: Speci men Type: BLOOD SPECIMENOrdering Facility: [facility] Address: [address] [place] [address] Performed By: #### 1 9123-9, 2777-1, 69291-2 ####[facility]CL[facility] [id number] [place] [id number] [place] ALP [Catalytic activity/Vol] 86 U/L Normal 38-113 [facility] Comment on above: Order Comment: Speci men Type: BLOOD SPECIMENOrdering Facility: [facility] Address: [address] [place] [address] Performed By: #### 1 9123-9, 2777-1, 46011-6 ####[facility]CLIA [id number] [place] [id number] [place] ALT [Catalytic activity/Vol] 24 U/L Normal 10-54 [facility] Comment on above: Order Comment: Speci men Type: BLOOD SPECIMENOrdering Facility: [facility] Address: [address] [place] [address] Performed By: #### 1 9123-9, 2777-1, 48489-0 ####[facility]CL[facility] [id number] [place] [address] [place] Anion gap [Moles/Vol] 16 mmol/L High 8-15 [facility] Comment on above: Order Comment: Speci men Type: BLOOD SPECIMENOrdering Facility: [facility] [facility] Address: [address] [place] [address] Performed By: #### 1 9123-9, 2777-, 23437-0 ####[facility] LABCLIA [id number] [place] [address] [place] AST [Catalytic activity/Vol] 18 U/L Normal 14-40 [facility] Comment on above: Order Comment: Speci men Type: BLOOD SPECIMENOrdering Facility: [facility] Address: [address] [place] [address] Performed By: #### 1 9123-9, 2777, 47724-6 ####[facility] LABCLIA [id number] [place] [address] [place] Bilirubin [Mass/Vol] 0.9 mg/dL Normal 0.2-1.3 [facility] Comment on above: Order Comment: Speci men Type: BLOOD SPECIMENOrdering Facility: [facility] Address: [address] [place] [address] Performed By: #### 1 9123-9, 2777-1, 55565-2 ####[facility] LABCLIA [id number] [place] [address] [place] Calcium [Mass/Vol] 9.0 mg/dL Normal 8.5-10.2 [facility] Comment on above: Order Comment: Speci men Type: BLOOD SPECIMENOrdering Facility: [facility] Address: [address] [place] [address] Performed By: #### 1 9123-9, 2776-06, ####[facility] LABCLIA [id number] [place] [id number] [place] Chloride [Moles/Vol] 100 mmol/L Normal 98-107 [facility] Comment on above: Order Comment: Speci men Type: BLOOD SPECIMENOrdering Facility: [facility] Address: [address] [place] [address] Performed By: #### 1 9123-9, 27712-13, ####[facility] LABCLIA [id number] [place] [address] [place] CO2 [Moles/Vol] 23 mmol/L Normal 22-30 [facility] [place] Comment on above: Order Comment: Speci men Type: BLOOD SPECIMENOrdering Facility: [facility] Address: [address] [place] [address] Performed By: #### 1 9123-9, 2776-06, ####[facility] LABCLIA [id number] [place] [address] [place] Creatinine [Mass/Vol] 0.73 mg/dL Normal 0.73-1.22 [facility] Comment on above: Order Comment: Speci men Type: BLOOD SPECIMENOrdering Facility: [facility] Address: [address] [place] [address] Performed By: #### 1 9123-9, 2776-06, ####[facility] LABCLIA [id number] [address] [address] [place] Creatinine and Glomerular filtration rate.predicted panel (S/P/Bld) 97 mL/min/1.73m??? Normal >=60 [facility] [place] Comment on above: Order Comment: Allegra donis Type: BLOOD SPECIMENOrdering Facility: [facility] Address: [address] [place] [address] Result Comment: Stephanie mated Glomerular Filtration Rate (eGFR) is calculated using the 2020 CKD-EPI creatinine equation. This equation utilizes serum creatinine, sex, and age as parameters. The creatinine assay has traceable calibration to isotope dilution-mass spectrometry. Refer to KDIGO guidelines for clinical interpretation. In patients with unstable renal function, e.g. those with acute kidney injury, the eGFR may not accurately reflect actual GFR. Performed By: #### 1 9123-9, 2777-1, 96153-8 ####[facility] LABIA [id number] [place] [address] [place] Glucose [Mass/Vol] 132 mg/dL High 74-99 [facility] Comment on above: Order Comment: Allegra donis Type: BLOOD SPECIMENOrdering Facility: [facility] Address: [address] [place] [address] Result Comment: The [place] [employer] (ADA) provides guidance for cutoff values for fasting glucose and random glucose. The ADA defines fasting as no caloric intake for at least 8 hours. Fasting plasma glucose results between 100 to 125 mg/dL indicate increased risk for diabetes (prediabetes).Fasting plasma glucose results greater than or equal to 126 mg/dL meet the criteria for diagnosis of diabetes. In the absence of unequivocal hyperglycemia, results should be confirmed by repeat testing. In a patient with classic symptoms of hyperglycemia or hyperglycemic crisis, random plasma glucose results greater than or equal to 200 mg/dL meet the criteria for diagnosis of diabetes.Reference: Standards of Medical Care in Diabetes 2016, [place] [employer]. Diabetes Care. 2016.39(Suppl 1). Performed By: #### 1 9123-9, 2777-1, 17205-1 ####[facility] LABIA [id number] [place] [id number] [place] Potassium [Moles/Vol] 3.2 mmol/L Low 3.7-5.1 [facility] Comment on above: Order Comment: Speci men Type: BLOOD SPECIMENOrdering Facility: [facility] Address: [address] [place], [place] [address] Performed By: #### 1 9123-9, 2777, 74305-4 ####[facility] LABCLIA [id number] [address] [address] [place] Protein [Mass/Vol] 5.3 g/dL Low 6.3-8.0 [facility] Comment on above: Order Comment: Speci men Type: BLOOD SPECIMENOrdering Facility: [facility] Address: [address] [place] [address] Performed By: #### 1 9123-9, 27712-13, 76482-7 ####[facility] LABCLIA [id number] [place] [id number] [place] Sodium [Moles/Vol] 139 mmol/L Normal 136-144 [facility] Comment on above: Order Comment: Speci men Type: BLOOD SPECIMENOrdering Facility: [facility] Address: [address] [place] [address] Performed By: #### 1 9123-9, 27712-13, ####[facility] LABIA [id number] [place] [id number] [place] Urea nitrogen [Mass/Vol] 19 mg/dL Normal 9-24 [facility] Comment on above: Order Comment: Speci men Type: BLOOD SPECIMENOrdering Facility: [facility] Address: [address] [place] [address] Performed By: #### 1 9123-9, 27712-13, ####[facility] LABIA [id number] [place] [id number] [place] Magnesium SerPl-mCncon 06-10 Magnesium [Mass/Vol] 2.1 mg/dL Normal 1.7-2.3 [facility] Comment on above: Order Comment: Speci men Type: BLOOD SPECIMENOrdering Facility: [facility] Address: [address] [place], [place] [address] Performed By: #### K 1, 63508-8, 2777-1 ####[facility] LABCLIA [id number] [place] [id number] [place] Magnesium [Mass/Vol] 1.8 mg/dL Normal 1.7-2.3 [facility] Comment on above: Order Comment: Speci men Type: BLOOD SPECIMENOrdering Facility: [facility] Address: [address] [place] [address] Performed By: #### 1 9123-9, 2777-1, 94018-7 ####[facility] LABCLIA [id number] [place] [address] [place] NURSING PROGon 06-10-2024 NURSING PROG Normal [facility] NUTRITIONon 06-10-2024 NUTRITION Normal [facility] POTASSIUMon 06-10-2024 Potassium [Moles/Vol] 4.2 mmol/L Normal 3.7-5.1 [facility] Comment on above: Order Comment: Speci men Type: BLOOD SPECIMENOrdering Facility: [facility] Address: [address] [place] [address] Performed By: #### K 1, 17907-5, 2777- ####[facility] LABCLIA [id number] [place] [address] [place] PT EDon 06-10-2024 PT ED Normal [facility] PT panel Coag (PPP)on 2023 INR Coag (PPP) [Relative time] 1.1 {INR} Normal 0.9-1.3 [facility] Comment on above: Order Comment: Speci men Type: BLOOD SPECIMENOrdering Facility: [facility] Address: [address] [place], [place] [address] Result Comment: Fozia min K Antagonist (VKA) Therapeutic Range: INR 2 to 3 (Target INR of 2.5)Note: For patients treated with VKA drugs, such as warfarin, the [place] [employer] 2012 Guideline recommends a therapeutic INR range of 2 to 3 (target INR of 2.5). This recommendation includes high-risk patients with antiphospholipid syndrome with previous arterial or venous thromboembolism, current-generation mechanical or bioprosthetic aortic heart valve replacement.Note: Patients with mechanical aortic valve replacement and additional risk factors for thromboembolic events (atrial fibrillation, previous thromboembolism, LV dysfunction, hypercoagulable conditions) or an older generation mechanical AVR (i.e., ball in-Cage) or any mechanical MVR should have a INR therapeutic range of 2.5 to 3.5 (target INR of 3).Laith GH, et al. Chest 2012, 141:7S-47SNishimura RA, et al. [facility] 2017, 70: 252-289 Performed By: #### 3 4528-0, 97667-5 ####[facility] LABCLIA [id number] [place] [address] [place] PT Coag (PPP) [Time] 12.2 s Normal 9.7-13.0 [facility] Comment on above: Order Comment: Speci men Type: BLOOD SPECIMENOrdering Facility: [facility] Address: [address] [place] [address] Performed By: #### 3 4528-0, 98217-3 ####[facility] LABIA [id number] [place] [address] [place] Phosphate SerPl-mCncon 06-10 Phosphate [Mass/Vol] 4.9 mg/dL High 2.7-4.8 [facility] Comment on above: Order Comment: Speci men Type: BLOOD SPECIMENOrdering Facility: [facility] Address: [address] [place] [address] Result Comment: Resu lt rechecked. Performed By: #### K 1, 28047-0, 2777-1 ####[facility] LABCLIA [id number] [place] [address] [place] Phosphate [Mass/Vol] 1.8 mg/dL Low 2.7-4.8 [facility] Comment on above: Order Comment: Speci men Type: BLOOD SPECIMENOrdering Facility: [facility] Address: [address] [place] [address] Performed By: #### 1 9123-9, 2777-1, 10126-4 ####[facility] LABCLIA [id number] [place] [address] [place] THERAPY NTon 06-10-2024 THERAPY NT Normal [facility] TYPE + SCREENon 06-10-2024 ABO A Normal [facility] Comment on above: Order Comment: Speci men Type: BLOOD SPECIMENOrdering Facility: [facility] Address: [address] [place] [address] Performed By: #### T SCR ####[facility] BLOOD BANKCLIA [id number] [place] [address] [place] Rh Nom (Bld) Positive Normal [facility] Comment on above: Order Comment: Speci men Type: BLOOD SPECIMENOrdering Facility: [facility] Address: [address] [place] [address] Performed By: #### T SCR ####[facility] BLOOD BANKIA [id number] [place] [address] [place] TYPE AND SCREEN EXPIRATION 06/13/2024 23:59 Normal [facility] Comment on above: Order Comment: Speci men Type: BLOOD SPECIMENOrdering Facility: [facility] Address: [address] [place] [address] Performed By: #### T SCR ####[facility] BLOOD BANKIA [id number] [place] [address] [place] Tacrolimus Bld-mCncon 2023 Tacrolimus (Bld) [Mass/Vol] 7.4 ng/mL Normal 5.0-20.0 [facility] Comment on above: Order Comment: Speci men Type: BLOOD SPECIMENOrdering Facility: [facility] Address: [address] [place] [address] Result Comment: Noreen vidualized target levels for [...] situation. Test performed by chemiluminescent immunoassay using [employer] i. Performed By: #### 1 1253-2 ####[facility] LABCLIA [id number] [place] [address] [place] XR ABDOMEN 1V SUPINEon 06-10 XR ABDOMEN 1V SUPINE Normal [facility] XR CHEST 1V FRONTAL PORTon 1 08-11-2023 XR CHEST 1V FRONTAL PORT Normal [facility] aPTT PPPon 06-10-2024 aPTT Coag (PPP) [Time] 31.0 s Normal 23.0-32.4 [facility] Comment on above: Order Comment: Speci men Type: BLOOD SPECIMENOrdering Facility: [facility] Address: [facility] [place] [address] Performed By: #### 3 4528-0, 51588-6 ####[facility] LABIA [id number] [place] [id number] [place] Basic metabolic 2000 panelon 06-09-2024 Anion gap [Moles/Vol] 14 mmol/L Normal 8-15 [facility] Comment on above: Order Comment: Speci men Type: BLOOD SPECIMENOrdering Facility: [facility] Address: [facility] [place] [address] Performed By: #### 2 4321-2, 29038-3, 2777-1 ####[facility] LABIA [id number] [place] [id number] [place] Calcium [Mass/Vol] 8.6 mg/dL Normal 8.5-10.2 [facility] Comment on above: Order Comment: Speci men Type: BLOOD SPECIMENOrdering Facility: [facility] Address: [address] [place] [address] Performed By: #### 2 4321-2, , 2776-06 ####[facility] LABCLIA [id number] [place] [id number] [place] Chloride [Moles/Vol] 101 mmol/L Normal 98-107 [facility] Comment on above: Order Comment: Speci men Type: BLOOD SPECIMENOrdering Facility: [facility] Address: [address] [place] [address] Performed By: #### 2 4321-2, , 2776-06 ####[facility] LABCLIA [id number] [place] [address] [place] CO2 [Moles/Vol] 25 mmol/L Normal 22-30 [facility] Comment on above: Order Comment: Speci men Type: BLOOD SPECIMENOrdering Facility: [facility] Address: [address] [place] [address] Performed By: #### 2 4321-2, , 2776-06 ####[facility] LABCLIA [id number] [place] [address] [place] Creatinine [Mass/Vol] 0.63 mg/dL Low 0.73-1.22 [facility] Comment on above: Order Comment: Speci men Type: BLOOD SPECIMENOrdering Facility: [facility] Address: [address] [place] [address] Performed By: #### 2 4321-2, , 2776-06 ####[facility] LABCLIA [id number] [place] [id number] [place] Creatinine and Glomerular filtration rate.predicted panel (S/P/Bld) 101 mL/min/1.73m??? Normal >=60 [facility] Comment on above: Order Comment: Speci men Type: BLOOD SPECIMENOrdering Facility: [facility] Address: [address] [place] [address] Result Comment: Stephanie mated Glomerular Filtration Rate (eGFR) is calculated using the 2020 CKD-EPI creatinine equation. This equation utilizes serum creatinine, sex, and age as parameters. The creatinine assay has traceable calibration to isotope dilution-mass spectrometry. Refer to KDIGO guidelines for clinical interpretation. In patients with unstable renal function, e.g. those with acute kidney injury, the eGFR may not accurately reflect actual GFR. Performed By: #### 2 4321-2, , 2776-06 ####[facility] LABIA [id number] [place] [address] [place] Glucose [Mass/Vol] 129 mg/dL High 74-99 [facility] Comment on above: Order Comment: Allegra donis Type: BLOOD SPECIMENOrdering Facility: [facility] Address: [address] [place] [address] Result Comment: The [place] Diabetes [employer] (ADA) provides guidance for cutoff values for fasting glucose and random glucose. The ADA defines fasting as no caloric intake for at least 8 hours. Fasting plasma glucose results between 100 to 125 mg/dL indicate increased risk for diabetes (prediabetes).Fasting plasma glucose results greater than or equal to 126 mg/dL meet the criteria for diagnosis of diabetes. In the absence of unequivocal hyperglycemia, results should be confirmed by repeat testing. In a patient with classic symptoms of hyperglycemia or hyperglycemic crisis, random plasma glucose results greater than or equal to 200 mg/dL meet the criteria for diagnosis of diabetes.Reference: Standards of Medical Care in Diabetes 2016, [place] [employer]. Diabetes Care. 2016.39(Suppl 1). Performed By: #### 2 4321-2, , 2776-06 ####[facility] LABIA [id number] [place] [id number] [place] Potassium [Moles/Vol] 3.4 mmol/L Low 3.7-5.1 [facility] Comment on above: Order Comment: Allegra donis Type: BLOOD SPECIMENOrdering Facility: [facility] Address: [address] [place] [address] Performed By: #### 2 4321-2, 46585-9, 2777-1 ####[facility] LABIA [id number] [place] [address] [place] Sodium [Moles/Vol] 140 mmol/L Normal 136-144 [facility] Comment on above: Order Comment: Speci men Type: BLOOD SPECIMENOrdering Facility: [facility] Address: [address] [place] [address] Performed By: #### 2 4321-2, 50337-8, 277- ####[facility] LABIA [id number] [place] [address] [place] Urea nitrogen [Mass/Vol] 12 mg/dL Normal 9-24 [facility] Comment on above: Order Comment: Speci men Type: BLOOD SPECIMENOrdering Facility: [facility] Address: [address] [place] [address] Performed By: #### 2 4321-2, 71792-2, 27712-13 ####[facility] LABIA [id number] [place] [address] [place] CBC W Auto Differential pane l (Bld)on 06-09-2024 Basophils (Bld) [#/Vol] 0.00 10*3/uL Normal <0.11 [facility] Comment on above: Order Comment: Speci men Type: BLOOD SPECIMENOrdering Facility: [facility] Address: [address] [place] [address] Performed By: #### 5 7021-8 ####[facility] LABIA [id number] [place] [address] [place] Basophils/100 WBC (Bld) 0.0 % Normal [facility] Comment on above: Order Comment: Speci men Type: BLOOD SPECIMENOrdering Facility: [facility] Address: [address] [place] [address] Performed By: #### 5 7021-8 ####[facility] LABCLIA [id number] [place] [address] [place] Differential cell count method Nom (Bld) Manual Normal [facility] Comment on above: Order Comment: Speci men Type: BLOOD SPECIMENOrdering Facility: [facility] Address: [address] [place] [address] Performed By: #### 5 7021-8 ####[facility] LABCLIA [id number] [place] [address] [place] Eosinophils (Bld) [#/Vol] 0.00 10*3/uL Normal <0.46 [facility] Comment on above: Order Comment: Speci men Type: BLOOD SPECIMENOrdering Facility: [facility] Address: [address] [place] [address] Performed By: #### 5 7021-8 ####[facility] LABCLIA [id number] [place] [address] [place] Eosinophils/100 WBC (Bld) 0.0 % Normal [facility] Comment on above: Order Comment: Speci men Type: BLOOD SPECIMENOrdering Facility: [facility] Address: [address] [place] [address] Performed By: #### 5 7021-8 ####[facility] LABCLIA [id number] [place] [address] [place] Erythrocyte distribution width (RBC) [Ratio] 13.7 % Normal 11.5-15.0 [facility] Comment on above: Order Comment: Speci men Type: BLOOD SPECIMENOrdering Facility: [facility] Address: [address] [place] [address] Performed By: #### 5 7021-8 ####[facility] LABCLIA [id number] [place] [address] [place] Hematocrit (Bld) [Volume fraction] 45.6 % Normal 39.0-51.0 [facility] Comment on above: Order Comment: Speci men Type: BLOOD SPECIMENOrdering Facility: [facility] Address: [address] [place] [address] Performed By: #### 5 7021-8 ####[facility] LABCLIA [id number] [place] [address] [place] Hemoglobin (Bld) [Mass/Vol] 15.6 g/dL Normal 13.0-17.0 [facility] Comment on above: Order Comment: Speci men Type: BLOOD SPECIMENOrdering Facility: [facility] Address: [address] [place] [address] Performed By: #### 5 7021-8 ####[facility] LABIA [id number] [place] [address] [place] Lymphocytes (Bld) [#/Vol] 0.33 10*3/uL Low 1.00-4.00 [facility] Comment on above: Order Comment: Speci men Type: BLOOD SPECIMENOrdering Facility: [facility] Address: [address] [place] [address] Performed By: #### 5 7021-8 ####[facility] LABIA [id number] [place] [address] [place] Lymphocytes/100 WBC (Bld) 3.4 % Normal [facility] Comment on above: Order Comment: Speci men Type: BLOOD SPECIMENOrdering Facility: [facility] Address: [address] [place] [address] Performed By: #### 5 7021-8 ####[facility] LABIA [id number] [place] [address] [place] MCH (RBC) [Entitic mass] 30.3 pg Normal 26.0-34.0 [facility] Comment on above: Order Comment: Speci men Type: BLOOD SPECIMENOrdering Facility: [facility] Address: [address] [place] [address] Performed By: #### 5 7021-8 ####[facility] LABCLIA [id number] [place] [address] [place] MCHC (RBC) [Mass/Vol] 34.2 g/dL Normal 30.5-36.0 [facility] Comment on above: Order Comment: Speci men Type: BLOOD SPECIMENOrdering Facility: [facility] Address: [address] [place] [address] Performed By: #### 5 7021-8 ####[facility] LABCLIA [id number] [place] [address] [place] MCV (RBC) [Entitic vol] 88.5 fL Normal 80.0-100.0 [facility] Comment on above: Order Comment: Speci men Type: BLOOD SPECIMENOrdering Facility: [facility] Address: [address] [place] [address] Performed By: #### 5 7021-8 ####[facility] LABIA [id number] [place] [address] [place] Metamyelocytes/100 WBC (Bld) 3.4 % Normal [facility] Comment on above: Order Comment: Speci men Type: BLOOD SPECIMENOrdering Facility: [facility] Address: [address] [place] [address] Performed By: #### 5 7021-8 ####[facility] LABCLIA [id number] [place] [address] [place] Monocytes (Bld) [#/Vol] 0.33 10*3/uL Normal <0.87 [facility] Comment on above: Order Comment: Speci men Type: BLOOD SPECIMENOrdering Facility: [facility] Address: [address] [place] [address] Performed By: #### 5 7021-8 ####[facility] LABCLIA [id number] [place] [address] [place] Monocytes/100 WBC (Bld) 3.4 % Normal [facility] Comment on above: Order Comment: Speci men Type: BLOOD SPECIMENOrdering Facility: [facility] Address: [address] [place] [address] Performed By: #### 5 7021-8 ####[facility] LABCLIA [id number] [place] [address] [place] Neutrophils (Bld) [#/Vol] 8.63 10*3/uL High 1.45-7.50 [facility] Comment on above: Order Comment: Speci men Type: BLOOD SPECIMENOrdering Facility: [facility] Address: [address] [place] [address] Performed By: #### 5 7021-8 ####[facility] LABCLIA [id number] [place] [address] [place] Neutrophils/100 WBC (Bld) 89.8 % Normal [facility] Comment on above: Order Comment: Speci men Type: BLOOD SPECIMENOrdering Facility: [facility] Address: [address] [place] [address] Performed By: #### 5 7021-8 ####[facility] LABCLIA [id number] [place] [address] [place] Nucleated RBC (Bld) [#/Vol] 10*3/uL Normal <0.01 [facility] Comment on above: Order Comment: Speci men Type: BLOOD SPECIMENOrdering Facility: [facility] Address: [address] [place] [address] Performed By: #### 5 7021-8 ####[facility] LABCLIA [id number] [place] [address] [place] Nucleated RBC/100 WBC (Bld) [Ratio] 0.0 /100 WBC Normal [facility] [place] Comment on above: Order Comment: Speci men Type: BLOOD SPECIMENOrdering Facility: [facility] Address: [address] [place] [address] Performed By: #### 5 7021-8 ####[facility] LABCLIA [id number] [place] [address] [place] Ovalocytes LM Ql (Bld) Few Normal Cl [facility] Comment on above: Order Comment: Speci men Type: BLOOD SPECIMENOrdering Facility: [facility] Address: [address] [place] [address] Performed By: #### 5 7021-8 ####[facility] LABIA [id number] [place] [address] [place] Platelet mean volume (Bld) [Entitic vol] 9.5 fL Normal 9.0-12.7 [facility] [place] Comment on above: Order Comment: Speci men Type: BLOOD SPECIMENOrdering Facility: [facility] Address: [address] [place] [address] Performed By: #### 5 7021-8 ####[facility] LABIA [id number] [place] [address] [place] Platelets (Bld) [#/Vol] 189 10*3/uL Normal 150-400 [facility] [place] Comment on above: Order Comment: Speci men Type: BLOOD SPECIMENOrdering Facility: [facility] Address: [address] [place] [address] Performed By: #### 5 7021-8 ####[facility] LABIA [id number] [place] [address] [place] Platelets Estimate (Bld) [#/Vol] Adequate Normal [facility] [place] Comment on above: Order Comment: Speci men Type: BLOOD SPECIMENOrdering Facility: [facility] Address: [address] [place] [address] Performed By: #### 5 7021-8 ####[facility] LABIA [id number] [place] [address] [place] Polychromasia LM Ql (Bld) Slight Normal [facility] [place] Comment on above: Order Comment: Speci men Type: BLOOD SPECIMENOrdering Facility: [facility] Address: [address] [place] [address] Performed By: #### 5 7021-8 ####[facility] LABCLIA [id number] [place] [address] [place] RBC (Bld) [#/Vol] 5.15 10*6/uL Normal 4.20-6.00 [facility] Comment on above: Order Comment: Speci men Type: BLOOD SPECIMENOrdering Facility: [facility] Address: [address] [place] [address] Performed By: #### 5 7021-8 ####[facility] LABIA [id number] [place] [address] [place] RED CELL MORPH Reviewed: see result s of individual morphologies Normal [facility] [place] Comment on above: Order Comment: Speci men Type: BLOOD SPECIMENOrdering Facility: [facility] Address: [address] [place] [address] Performed By: #### 5 7021-8 ####[facility] LABIA [id number] [place] [address] [place] WBC (Bld) [#/Vol] 9.61 10*3/uL Normal 3.70-11.00 [facility] Comment on above: Order Comment: Speci men Type: BLOOD SPECIMENOrdering Facility: [facility] Address: [address] [place] [address] Result Comment: No c lot detected.Results checked and verified. Performed By: #### 5 7021-8 ####[facility] LABIA [id number] [place] [address] [place] WBC Left Shift Ql (Bld) Present [facility] Comment on above: Order Comment: Speci men Type: BLOOD SPECIMENOrdering Facility: [facility] Address: [address] [place] [address] Performed By: #### 5 7021-8 ####[facility] LABCLIA [id number] [place] [address] [place] CBC panel Auto (Bld)on 06-09 Erythrocyte distribution width (RBC) [Ratio] 13.9 % Normal 11.5-15.0 [facility] [place] Comment on above: Order Comment: Speci men Type: BLOOD SPECIMENOrdering Facility: [facility] Address: [address] [place] [address] Performed By: #### 5 8410-2 ####[facility] LABIA [id number] [place] [address] [place] Hematocrit (Bld) [Volume fraction] 43.9 % Normal 39.0-51.0 [facility] [place] Comment on above: Order Comment: Speci men Type: BLOOD SPECIMENOrdering Facility: [facility] Address: [address] [place] [address] Performed By: #### 5 8410-2 ####[facility] LABIA [id number] [place] [address] [place] Hemoglobin (Bld) [Mass/Vol] 15.0 g/dL Normal 13.0-17.0 [facility] [place] Comment on above: Order Comment: Speci men Type: BLOOD SPECIMENOrdering Facility: [facility] Address: [address] [place] [address] Performed By: #### 5 8410-2 ####[facility] LABCLIA [id number] [place] [address] [place] MCH (RBC) [Entitic mass] 30.1 pg Normal 26.0-34.0 [facility] [place] Comment on above: Order Comment: Speci men Type: BLOOD SPECIMENOrdering Facility: [facility] Address: [address] [place] [address] Performed By: #### 5 8410-2 ####[facility] LABCLIA [id number] [place] [address] [place] MCHC (RBC) [Mass/Vol] 34.2 g/dL Normal 30.5-36.0 [facility] Comment on above: Order Comment: Speci men Type: BLOOD SPECIMENOrdering Facility: [facility] Address: [address] [place] [address] Performed By: #### 5 8410-2 ####[facility] LABCLIA [id number] [place] [address] [place] MCV (RBC) [Entitic vol] 88.2 fL Normal 80.0-100.0 [facility] Comment on above: Order Comment: Speci men Type: BLOOD SPECIMENOrdering Facility: [facility] Address: [address] [place] [address] Performed By: #### 5 8410-2 ####[facility] LABCLIA [id number] [place] [address] [place] Nucleated RBC (Bld) [#/Vol] 10*3/uL Normal <0.01 [facility] [place] Comment on above: Order Comment: Speci men Type: BLOOD SPECIMENOrdering Facility: [facility] Address: [address] [place] [address] Performed By: #### 5 8410-2 ####[facility] LABIA [id number] [place] [address] [place] Platelet mean volume (Bld) [Entitic vol] 9.6 fL Normal 9.0-12.7 [facility] [place] Comment on above: Order Comment: Speci men Type: BLOOD SPECIMENOrdering Facility: [facility] Address: [address] [place] [address] Performed By: #### 5 8410-2 ####[facility] LABCLIA [id number] [place] [address] [place] Platelets (Bld) [#/Vol] 203 10*3/uL Normal 150-400 [facility] [place] Comment on above: Order Comment: Speci men Type: BLOOD SPECIMENOrdering Facility: [facility] Address: [address] [place] [address] Performed By: #### 5 8410-2 ####[facility] LABCLIA [id number] [place] [id number] [place] RBC (Bld) [#/Vol] 4.98 10*6/uL Normal 4.20-6.00 [facility] Comment on above: Order Comment: Speci men Type: BLOOD SPECIMENOrdering Facility: [facility] Address: [address] [place] [address] Performed By: #### 5 8410-2 ####[facility] LABCLIA [id number] [place] [address] [place] WBC (Bld) [#/Vol] 10.04 10*3/uL Normal 3.70-11.00 [facility] Comment on above: Order Comment: Speci men Type: BLOOD SPECIMENOrdering Facility: [facility] Address: [address] [place] [address] Performed By: #### 5 8410-2 ####[facility] LABCLIA [id number] [place] [id number] [place] CONSULTon 06-09-2024 CONSULT Normal [facility] [place] CRP SerPl-mCncon 06-09-2024 CRP [Mass/Vol] 26.3 mg/dL High <0.9 [facility] [place] Comment on above: Order Comment: Speci men Type: BLOOD SPECIMENOrdering Facility: [facility] Address: [address] [place] [address] Performed By: #### 1 988-5, 77477-1, HSTNT, 3040-3, 60174-4 ####[facility] LABCLIA [id number] [place] [id number] [place] Comprehensive metabolic 2000 panelon 06-09-2024 Albumin [Mass/Vol] 3.2 g/dL Low 3.9-4.9 [facility] Comment on above: Order Comment: Speci men Type: BLOOD SPECIMENOrdering Facility: [facility] Address: [address] [place] [address] Performed By: #### 3 3959-8, ####[facility] LABCLIA [id number] [place] [address] [place] ALP [Catalytic activity/Vol] 85 U/L Normal 38-113 [facility] [place] Comment on above: Order Comment: Speci men Type: BLOOD SPECIMENOrdering Facility: [facility] Address: [address] [place] [address] Performed By: #### 3 3959-8, ####[facility] LABCLIA [id number] [place] [address] [place] ALT [Catalytic activity/Vol] 26 U/L Normal 10-54 [facility] [place] Comment on above: Order Comment: Speci men Type: BLOOD SPECIMENOrdering Facility: [facility] Address: [address] [place] [address] Performed By: #### 3 3959-8, ####[facility] LABCLIA [id number] [place] [address] [place] Anion gap [Moles/Vol] 14 mmol/L Normal 8-15 [facility] Comment on above: Order Comment: Speci men Type: BLOOD SPECIMENOrdering Facility: [facility] Address: [address] [place] [address] Performed By: #### 3 3959-8, 78333-5 ####[facility] LABCLIA [id number] [place] [address] [place] AST [Catalytic activity/Vol] 19 U/L Normal 14-40 [facility] [place] Comment on above: Order Comment: Speci men Type: BLOOD SPECIMENOrdering Facility: [facility] Address: [address] [place] [id number] Performed By: #### 3 3959-8, 38639-7 ####[facility] LABCLIA [id number] [address] [address] [place] Bilirubin [Mass/Vol] 0.8 mg/dL Normal 0.2-1.3 [facility] Comment on above: Order Comment: Speci men Type: BLOOD SPECIMENOrdering Facility: [facility] Address: [address] [place] [address] Performed By: #### 3 3959-8, 93821-7 ####[facility] LABCLIA [id number] [place] [address] [place] Calcium [Mass/Vol] 8.3 mg/dL Low 8.5-10.2 [facility] Comment on above: Order Comment: Speci men Type: BLOOD SPECIMENOrdering Facility: [facility] Address: [address] [place] [address] Performed By: #### 3 3959-8, 24207-8 ####[facility] LABCLIA [id number] [place] [address] [place] Chloride [Moles/Vol] 102 mmol/L Normal 98-107 [facility] Comment on above: Order Comment: Speci men Type: BLOOD SPECIMENOrdering Facility: [facility] Address: [address] [place] [address] Performed By: #### 3 3959-8, 59328-9 ####[facility] LABCLIA [id number] [place] [id number] [place] CO2 [Moles/Vol] 25 mmol/L Normal 22-30 [facility] [place] Comment on above: Order Comment: Speci men Type: BLOOD SPECIMENOrdering Facility: [facility] Address: [address] [place] [address] Performed By: #### 3 3959-8, 49246-2 ####[facility] LABCLIA [id number] [place] [address] [place] Creatinine [Mass/Vol] 0.71 mg/dL Low 0.73-1.22 [facility] Comment on above: Order Comment: Allegra donis Type: BLOOD SPECIMENOrdering Facility: [facility] Address: [address] [place] [address] Performed By: #### 3 3959-8, 07404-2 ####[facility] [id number] [place] [address] [place] Creatinine and Glomerular filtration rate.predicted panel (S/P/Bld) 97 mL/min/1.73m??? Normal >=60 [facility] [place] Comment on above: Order Comment: Allegra donis Type: BLOOD SPECIMENOrdering Facility: [facility] Address: [address] [place] [address] Result Comment: Stephanie mated Glomerular Filtration Rate (eGFR) is calculated using the 2020 CKD-EPI creatinine equation. This equation utilizes serum creatinine, sex, and age as parameters. The creatinine assay has traceable calibration to isotope dilution-mass spectrometry. Refer to KDIGO guidelines for clinical interpretation. In patients with unstable renal function, e.g. those with acute kidney injury, the eGFR may not accurately reflect actual GFR. Performed By: #### 3 3959-8, 58528-3 ####[facility] [id number] [place] [address] [place] Glucose [Mass/Vol] 137 mg/dL High 74-99 [facility] Comment on above: Order Comment: Allegra jewels Type: BLOOD SPECIMENOrdering Facility: [facility] Address: [address] [place] [address] Result Comment: The [place] [employer] (ADA) provides guidance for cutoff values for fasting glucose and random glucose. The ADA defines fasting as no caloric intake for at least 8 hours. Fasting plasma glucose results between 100 to 125 mg/dL indicate increased risk for diabetes (prediabetes).Fasting plasma glucose results greater than or equal to 126 mg/dL meet the criteria for diagnosis of diabetes. In the absence of unequivocal hyperglycemia, results should be confirmed by repeat testing. In a patient with classic symptoms of hyperglycemia or hyperglycemic crisis, random plasma glucose results greater than or equal to 200 mg/dL meet the criteria for diagnosis of diabetes.Reference: Standards of Medical Care in Diabetes 2016, [place] [employer]. Diabetes Care. 2016.39(Suppl 1). Performed By: #### 3 3959-8, 27756-2 ####[facility] LABCLIA [id number] [place] [address] [place] Potassium [Moles/Vol] 3.8 mmol/L Normal 3.7-5.1 [facility] Comment on above: Order Comment: Speci men Type: BLOOD SPECIMENOrdering Facility: [facility] Address: [address] [place] [address] Performed By: #### 3 3959-8, 57089-1 ####[facility] LABCLIA [id number] [place] [address] [place] Protein [Mass/Vol] 4.6 g/dL Low 6.3-8.0 [facility] Comment on above: Order Comment: Speci men Type: BLOOD SPECIMENOrdering Facility: [facility] Address: [address] [place] [address] Performed By: #### 3 3959-8, ####[facility] LABCLIA [id number] [place] [address] [place] Sodium [Moles/Vol] 141 mmol/L Normal 136-144 [facility] Comment on above: Order Comment: Speci men Type: BLOOD SPECIMENOrdering Facility: [facility] Address: [address] [place] [address] Performed By: #### 3 3959-8, ####[facility] LABCLIA [id number] [address] [address] [place] Urea nitrogen [Mass/Vol] 15 mg/dL Normal 9-24 [facility] [place] Comment on above: Order Comment: Speci men Type: BLOOD SPECIMENOrdering Facility: [facility] Address: [address] [place] [address] Performed By: #### 3 3959-8, 16819-1 ####[facility] LABCLIA [id number] [address] [address] [place] ECG COMPLETEon 06-09-2024 ECG COMPLETE Normal [facility] [place] [id number] 06-09-2024 ECG01 Normal [facility] [place] Fibrinogen PPP-mCncon 2023 Fibrinogen Coag (PPP) [Mass/Vol] 498 mg/dL High 200-400 [facility] [place] Comment on above: Order Comment: Speci men Type: BLOOD SPECIMENOrdering Facility: [facility] Address: [address] [place] [address] Result Comment: Samp le checked for clot.Result rechecked. Performed By: #### 3 255-7, 61967-6 ####[facility] LABIA [id number] [place] [address] [place] Gas and Carbon monoxide pane l (BldV)on 06-09-2024 Base excess Calc (BldV) [Moles/Vol] 1 mmol/L Normal 0-2 [facility] [place] Comment on above: Order Comment: Speci men Type: VENOUS BLOOD SPECIMENOrdering Facility: [facility] Address: [address] [place] [address] Performed By: #### 2 4344-4 ####[facility] LABCLIA [id number] [place] [address] [place] Body temperature 98.6 [degF] Normal [facility] Comment on above: Order Comment: Speci men Type: VENOUS BLOOD SPECIMENOrdering Facility: [facility] Address: [address] [place] [address] Performed By: #### 2 4344-4 ####[facility] LABIA [id number] [place] [address] [place] Calcium.ionized (Bld) [Mass/Vol] 1.35 mmol/L High 1.08-1.30 [facility] [place] Comment on above: Order Comment: Speci men Type: VENOUS BLOOD SPECIMENOrdering Facility: [facility] Address: [address] [place] [address] Performed By: #### 2 4344-4 ####[facility] LABIA [id number] [place] [address] [place] Calcium.ionized adjusted to pH 7.4 (BldA) [Moles/Vol] 1.34 mmol/L High 1.08-1.30 [facility] [place] Comment on above: Order Comment: Speci men Type: VENOUS BLOOD SPECIMENOrdering Facility: [facility] Address: [address] [place] [address] Performed By: #### 2 4344-4 ####[facility] LABIA [id number] [place] [address] [place] Carboxyhemoglobin (BldV) [Mass fraction] 1.3 % Normal 0.0-2.0 [facility] [place] Comment on above: Order Comment: Speci men Type: VENOUS BLOOD SPECIMENOrdering Facility: [facility] Address: [address] [place] [address] Result Comment: Carb oxyhemoglobin Reference Range for Smokers: 2.0-8.0% Performed By: #### 2 4344-4 ####[facility]IA [id number] [place] [address] [place] CO2 (BldV) [Partial pressure] 47 mm[Hg] Normal 42-55 [facility] [place] Comment on above: Order Comment: Speci men Type: VENOUS BLOOD SPECIMENOrdering Facility: [facility] Address: [address] [place] [address] Performed By: #### 2 4344-4 ####[facility] [id number] [place] [address] [place] Glucose [Mass/Vol] 138 mg/dL High 60-105 [facility] Comment on above: Order Comment: Speci men Type: VENOUS BLOOD SPECIMENOrdering Facility: [facility] Address: [address] [place] [address] Performed By: #### 2 4344-4 ####[facility] LABCLIA [id number] [place] [address] [place] HCO3 (Bld) [Moles/Vol] 27 mmol/L Normal 24-28 [facility] Comment on above: Order Comment: Speci men Type: VENOUS BLOOD SPECIMENOrdering Facility: [facility] Address: [address] [place] [address] Performed By: #### 2 4344-4 ####[facility] LABIA [id number] [place] [address] [place] Hematocrit (Bld) [Volume fraction] 47.3 % Normal 39.0-51.0 [facility] [place] Comment on above: Order Comment: Speci men Type: VENOUS BLOOD SPECIMENOrdering Facility: [facility] Address: [address] [place] [address] Performed By: #### 2 4344-4 ####[facility]IA [id number] [place] [address] [place] Hemoglobin (Bld) [Mass/Vol] 15.4 g/dL Normal 13.0-17.0 [facility] [place] Comment on above: Order Comment: Speci men Type: VENOUS BLOOD SPECIMENOrdering Facility: [facility] Address: [address] [place] [address] Performed By: #### 2 4344-4 ####[facility] LABIA [id number] [place] [address] [place] Lactate [Moles/Vol] 1.3 mmol/L Normal 0.5-2.2 [facility] Comment on above: Order Comment: Speci men Type: VENOUS BLOOD SPECIMENOrdering Facility: [facility] Address: [address] [place] [id number] Performed By: #### 2 4344-4 ####[facility] LABCLIA [id number] [address] [address] [place] Methemoglobin (Bld) [Mass fraction] 1.0 % Normal 0.0-1.5 [facility] [place] Comment on above: Order Comment: Speci men Type: VENOUS BLOOD SPECIMENOrdering Facility: [facility] Address: [address] [place] [address] Performed By: #### 2 4344-4 ####[facility]CLIA [id number] [place] [address] [place] O2 THERAPY Hi-Flow Nasal Cannula-Heated Normal [facility] [place] Comment on above: Order Comment: Speci men Type: VENOUS BLOOD SPECIMENOrdering Facility: [facility] Address: [address] [place] [address] Performed By: #### 2 4344-4 ####[facility]CLIA [id number] [place] [address] [place] Oxygen (BldV) [Partial pressure] 57 mm[Hg] High 35-45 [facility] [place] Comment on above: Order Comment: Speci men Type: VENOUS BLOOD SPECIMENOrdering Facility: [facility] Address: [address] [place] [address] Performed By: #### 2 4344-4 ####[facility] LABCLIA [id number] [place] [id number] [place] Oxygen saturation in Venous blood 89 % High 60-85 [facility] [place] Comment on above: Order Comment: Speci men Type: VENOUS BLOOD SPECIMENOrdering Facility: [facility] Address: [address] [place] [id number] Performed By: #### 2 4344-4 ####[facility]CLIA [id number] [place] [id number] [place] Oxyhemoglobin (BldV) [Mass fraction] 87 % High 60-85 [facility] [place] Comment on above: Order Comment: Speci men Type: VENOUS BLOOD SPECIMENOrdering Facility: [facility] Address: [address] [place] [address] Performed By: #### 2 4344-4 ####[facility]CLIA [id number] [address] [address] [place] pH (BldV) 7.38 [pH] Normal 7.32-7.42 [facility] [place] Comment on above: Order Comment: Speci men Type: VENOUS BLOOD SPECIMENOrdering Facility: [facility] Address: [address] [place] [address] Performed By: #### 2 4344-4 ####[facility] LABIA [id number] [place] [address] [place] Potassium [Moles/Vol] 3.7 mmol/L Normal 3.5-5.0 [facility] Comment on above: Order Comment: Speci men Type: VENOUS BLOOD SPECIMENOrdering Facility: [facility] Address: [address] [place] [address] Performed By: #### 2 4344-4 ####[facility] LABIA [id number] [place] [address] [place] Sodium [Moles/Vol] 138 mmol/L Normal 136-144 [facility] Comment on above: Order Comment: Speci men Type: VENOUS BLOOD SPECIMENOrdering Facility: [facility] Address: [address] [place] [address] Performed By: #### 2 4344-4 ####[facility] [id number] [place] [address] [place] HIGH SENSITIVITY TROPONIN To n 06-09-2024 Troponin T.cardiac High sensitivity method [Mass/Vol] 27 ng/L High <12 [facility] [place] Comment on above: Order Comment: Speci men Type: BLOOD SPECIMENOrdering Facility: [facility] Address: [address] [place] [address] Performed By: #### 1 988-5, 76038-4, HSTNT, 3040-3, 13091-0 ####[facility]CL[facility] [id number] [place] [address] [place] Performed By: #### H STNT, 2777-1 ####[facility]CL[facility] [id number] [place] [address] [place] Lipase SerPl-cCncon 06-09-20 Lipase [Catalytic activity/Vol] 11 U/L Low 16- [facility] [place] Comment on above: Order Comment: Speci men Type: BLOOD SPECIMENOrdering Facility: [facility] Address: [address] [place] [address] Performed By: #### 1 988-5, 95405-4, HSTNT, 3040-3, 75876-5 ####[facility]CL[facility] [id number] [place] [address] [place] MEDICAL EMERon 06-09-2024 MEDICAL SASHA Normal [facility] [facility] Magnesium SerPl-mCncon 06-09 Magnesium [Mass/Vol] 2.0 mg/dL Normal 1.7-2.3 [facility] Comment on above: Order Comment: Speci men Type: BLOOD SPECIMENOrdering Facility: [facility] Address: [address] [place] [address] Performed By: #### 1 988-5, 02207-2, HSTNT, 3040-3, 98827-2 ####[facility] LABCLIA [id number] [place] [address] [place] Magnesium [Mass/Vol] 1.7 mg/dL Normal 1.7-2.3 [facility] Comment on above: Order Comment: Speci men Type: BLOOD SPECIMENOrdering Facility: [facility] Address: [address] [place] [address] Performed By: #### 2 4321-2, 12299-2, 2777-1 ####[facility] LABCLIA [id number] [address] [place] NT-proBNP [facility] 06-09 Natriuretic peptide.B prohormone N-Terminal [Mass/Vol] 3120 pg/mL High <125 [facility] Comment on above: Order Comment: Speci men Type: BLOOD SPECIMENOrdering Facility: [facility] Address: [address] [place] [address] Performed By: #### 1 988-5, 04487-4, HSTNT, 3040-3, 73545-0 ####[facility] LABCLIA [id number] [place] [address] [place] NUTRITIONon 06-09-2024 NUTRITION Normal [facility] PT panel Coag (PPP)on 2023 INR Coag (PPP) [Relative time] 1.2 {INR} Normal 0.9-1.3 [facility] Comment on above: Order Comment: Speci jewels Type: BLOOD SPECIMENOrdering Facility: [facility] Address: [address] [place] [address] Result Comment: Fozia min K Antagonist (VKA) Therapeutic Range: INR 2 to 3 (Target INR of 2.5)Note: For patients treated with VKA drugs, such as warfarin, the [place] [employer] 2012 Guideline recommends a therapeutic INR range of 2 to 3 (target INR of 2.5). This recommendation includes high-risk patients with antiphospholipid syndrome with previous arterial or venous thromboembolism, current-generation mechanical or bioprosthetic aortic heart valve replacement.Note: Patients with mechanical aortic valve replacement and additional risk factors for thromboembolic events (atrial fibrillation, previous thromboembolism, LV dysfunction, hypercoagulable conditions) or an older generation mechanical AVR (i.e., ball in-Cage) or any mechanical MVR should have a INR therapeutic range of 2.5 to 3.5 (target INR of 3).Laith GH, et al. Chest 2012, 141:7S-47SNishimura RA, et al. JACC 2017, 70: 252-289 Performed By: #### 3 255-7, 51385-4 ####[facility] LABIA [id number] [place] [id number] [place] PT Coag (PPP) [Time] 12.4 s Normal 9.7-13.0 [facility] Comment on above: Order Comment: Speci men Type: BLOOD SPECIMENOrdering Facility: [facility] Address: [address] [place] [address] Performed By: #### 3 255-7, 52154-9 ####[facility] LABIA [id number] [place] [address] [place] Phosphate SerPl-mCncon 06-09 Phosphate [Mass/Vol] 2.1 mg/dL Low 2.7-4.8 [facility] Comment on above: Order Comment: Speci men Type: BLOOD SPECIMENOrdering Facility: [facility] Address: [address] [place] [address] Performed By: #### H STNT, 2777-1 ####[facility] [id number] [place] [address] [place] Phosphate [Mass/Vol] 2.3 mg/dL Low 2.7-4.8 [facility] Comment on above: Order Comment: Speci men Type: BLOOD SPECIMENOrdering Facility: [facility] Address: [address] [place] [address] Performed By: #### 2 4321-2, 57248-1, 2777-1 ####[facility] LABIA [id number] [place] [address] [place] Procalcitonin SerPl-mCncon 1 08-10-2023 Procalcitonin [Mass/Vol] 1.04 ng/mL High <0.09 [facility] Comment on above: Order Comment: Speci men Type: BLOOD SPECIMENOrdering Facility: [facility] Address: [address] [place] [address] Result Comment: For a guided interpretation of test results, please visit the Change in Procalcitonin Calculator, [email or web address]. Performed By: #### 3 3959-8, 16318-0 ####[facility] LABCLIA [id number] [place] [address] [place] Resp path 12b Pnl Spec LUZ MARIA+p robeon 06-09-2024 Respiratory pathogens DNA and RNA 12b panel LUZ MARIA+probe (Unsp spec) Normal [facility] Comment on above: Performed By: #### 6 0566-7 ####[facility] LABCLIA [id number] [place] [address] [place] STAPHYLOCOCCUS AUREUS AND MR SA SCREEN, PCR, NASALon 06-09-2024 S. aureus and MRSA panel LUZ MARIA+probe (Nose) Not detected Normal Not Detected [facility] Comment on above: Order Comment: Speci men Type: SWABOrdering Facility: [facility] Address: [address] [place] [address] Performed By: #### S APCR ####[facility] [id number] [place] [address] [place] THERAPY NTon 06-09-2024 THERAPY NT Normal [facility] Tacrolimus Bld-mCncon 2023 Tacrolimus (Bld) [Mass/Vol] 3.4 ng/mL Low 5.0-20.0 [facility] Comment on above: Order Comment: Speci men Type: BLOOD SPECIMENOrdering Facility: [facility] Address: [address] [place] [address] Result Comment: Noreen vidualized target levels for [...] Alinity i. Performed By: #### 1 1253-2 ####[facility] LABCLIA [id number] [place] [id number] [place] XR ABDOMEN 1V SUPINEon 06-09 XR ABDOMEN 1V SUPINE Normal [facility] XR CHEST 1V FRONTAL PORTon 1 08-10-2023 XR CHEST 1V FRONTAL PORT Normal [facility] Basic metabolic 2000 panelon 06-08-2024 Anion gap [Moles/Vol] 16 mmol/L High 8-15 [facility] Comment on above: Order Comment: Speci men Type: BLOOD SPECIMENOrdering Facility: [facility] Address: [address] [place] [address] Performed By: #### 2 777-1, 53394-4, ####[facility] LABCLIA [id number] [place] [address] [place] Calcium [Mass/Vol] 7.6 mg/dL Low 8.5-10.2 [facility] Comment on above: Order Comment: Speci men Type: BLOOD SPECIMENOrdering Facility: [facility] Address: [address] [place] [address] Performed By: #### 2 777-1, 97678-0, ####[facility] LABCLIA [id number] [place] [address] [place] Chloride [Moles/Vol] 103 mmol/L Normal 98-107 [facility] Comment on above: Order Comment: Speci men Type: BLOOD SPECIMENOrdering Facility: [facility] Address: [address] [place] [address] Performed By: #### 2 777-1, 15714-6, ####[facility] LABCLIA [id number] [place] [id number] [place] CO2 [Moles/Vol] 18 mmol/L Low 22-30 [facility] Comment on above: Order Comment: Speci men Type: BLOOD SPECIMENOrdering Facility: [facility] Address: [address] [place] [address] Performed By: #### 2 777-1, 12749-9, ####[facility] LABCLIA [id number] [place] [address] [place] Creatinine [Mass/Vol] 0.55 mg/dL Low 0.73-1.22 [facility] Comment on above: Order Comment: Speci men Type: BLOOD SPECIMENOrdering Facility: [facility] Address: [address] [place] [address] Performed By: #### 2 777-1, 00766-9, ####[facility] LABCLIA [id number] [place] [address] [place] Creatinine and Glomerular filtration rate.predicted panel (S/P/Bld) 105 mL/min/1.73m??? Normal >=60 [facility] Comment on above: Order Comment: Speci men Type: BLOOD SPECIMENOrdering Facility: [facility] Address: [address] [place] [address] Result Comment: Stephanie mated Glomerular Filtration Rate (eGFR) is calculated using the 2020 CKD-EPI creatinine equation. This equation utilizes serum creatinine, sex, and age as parameters. The creatinine assay has traceable calibration to isotope dilution-mass spectrometry. Refer to KDIGO guidelines for clinical interpretation. In patients with unstable renal function, e.g. those with acute kidney injury, the eGFR may not accurately reflect actual GFR. Performed By: #### 2 777-1, 84518-0, ####[facility] LABCLIA [id number] [place] [id number] [place] Glucose [Mass/Vol] 88 mg/dL Normal 74-99 [facility] Comment on above: Order Comment: Speci men Type: BLOOD SPECIMENOrdering Facility: [facility] Address: [address] [place] [address] Result Comment: The [place] [employer] (ADA) provides guidance for cutoff values for fasting glucose and random glucose. The ADA defines fasting as no caloric intake for at least 8 hours. Fasting plasma glucose results between 100 to 125 mg/dL indicate increased risk for diabetes (prediabetes).Fasting plasma glucose results greater than or equal to 126 mg/dL meet the criteria for diagnosis of diabetes. In the absence of unequivocal hyperglycemia, results should be confirmed by repeat testing. In a patient with classic symptoms of hyperglycemia or hyperglycemic crisis, random plasma glucose results greater than or equal to 200 mg/dL meet the criteria for diagnosis of diabetes.Reference: Standards of Medical Care in Diabetes 2016, [place] [employer]. Diabetes Care. 2016.39(Suppl 1). Performed By: #### 2 777-1, , ####[facility] LABCLIA [id number] [place] [address] [place] Potassium [Moles/Vol] 3.8 mmol/L Normal 3.7-5.1 [facility] Comment on above: Order Comment: Speci men Type: BLOOD SPECIMENOrdering Facility: [facility] Address: [address] [place] [address] Performed By: #### 2 777-1, , ####[facility] LABCLIA [id number] [place] [id number] [place] Sodium [Moles/Vol] 137 mmol/L Normal 136-144 [facility] Comment on above: Order Comment: Speci men Type: BLOOD SPECIMENOrdering Facility: [facility] Address: [address] [place] [address] Performed By: #### 2 777-1, , ####[facility] LABCLIA [id number] [address] [address] [place] Urea nitrogen [Mass/Vol] 13 mg/dL Normal 9-24 [facility] Comment on above: Order Comment: Speci men Type: BLOOD SPECIMENOrdering Facility: [facility] Address: [address] [place] [address] Performed By: #### 2 777-1, 35390-1, 94236-2 ####[facility] LABCLIA [id number] [address] [place] [facility] CBC Pnl Bld Autoon Erythrocyte distribution width (RBC) [Ratio] 13.8 % Normal 11.5-15.0 [facility] Comment on above: Order Comment: Speci men Type: BLOOD SPECIMENOrdering Facility: [facility] Address: [address] [place] [address] Performed By: #### 5 8410-2 ####[facility] LABCLIA [id number] [address] Performed By: #### 5 7021-8 ####[facility] LABCLIA [id number] [address] [place] Nucleated RBC (Bld) [#/Vol] 10*3/uL Normal <0.01 [facility] Comment on above: Order Comment: Speci men Type: BLOOD SPECIMENOrdering Facility: [facility] Address: [address] [place] [address] Performed By: #### 5 8410-2 ####[facility] LABCLIA [id number] [address] [place] Performed By: #### 5 7021-8 ####[facility] LABCLIA [id number] [place] [address] [place] CBC W Auto Differential pane l (Bld)on 06-08-2024 Basophils (Bld) [#/Vol] 0.00 10*3/uL Normal <0.11 [facility] Comment on above: Order Comment: Speci men Type: BLOOD SPECIMENOrdering Facility: [facility] Address: [address] [place] [address] Performed By: #### 5 7021-8 ####[facility] LABCLIA [id number] [place] [address] [place] Basophils/100 WBC (Bld) 0.0 % Normal [facility] Comment on above: Order Comment: Speci men Type: BLOOD SPECIMENOrdering Facility: [facility] Address: [address] [place] [address] Performed By: #### 5 7021-8 ####[facility] LABCLIA [id number] [place] [address] [place] Differential cell count method Nom (Bld) Manual Normal [facility] Comment on above: Order Comment: Speci men Type: BLOOD SPECIMENOrdering Facility: [facility] Address: [address] [place] [address] Performed By: #### 5 7021-8 ####[facility] LABCLIA [id number] [place] [address] [place] Eosinophils (Bld) [#/Vol] 0.06 10*3/uL Normal <0.46 [facility] Comment on above: Order Comment: Speci men Type: BLOOD SPECIMENOrdering Facility: [facility] Address: [address] [place] [address] Performed By: #### 5 7021-8 ####[facility] LABCLIA [id number] [place] [address] [place] Eosinophils/100 WBC (Bld) 0.9 % Normal [facility] Comment on above: Order Comment: Speci men Type: BLOOD SPECIMENOrdering Facility: [facility] Address: [address] [place] [address] Performed By: #### 5 7021-8 ####[facility] LABCLIA [id number] [place] [address] [place] Hematocrit (Bld) [Volume fraction] 40.3 % Normal 39.0-51.0 [facility] Comment on above: Order Comment: Speci men Type: BLOOD SPECIMENOrdering Facility: [facility] Address: [address] [place] [address] Performed By: #### 5 7021-8 ####[facility] LABCLIA [id number] [place] [address] [place] Hemoglobin (Bld) [Mass/Vol] 13.3 g/dL Normal 13.0-17.0 [facility] Comment on above: Order Comment: Speci men Type: BLOOD SPECIMENOrdering Facility: [facility] Address: [address] [place] [address] Performed By: #### 5 7021-8 ####[facility] LABCLIA [id number] [place] [address] [place] Lymphocytes (Bld) [#/Vol] 0.62 10*3/uL Low 1.00-4.00 [facility] Comment on above: Order Comment: Speci men Type: BLOOD SPECIMENOrdering Facility: [facility] Address: [address] [place] [address] Performed By: #### 5 7021-8 ####[facility] LABIA [id number] [place] [address] [place] Lymphocytes/100 WBC (Bld) 8.7 % Normal [facility] Comment on above: Order Comment: Speci men Type: BLOOD SPECIMENOrdering Facility: [facility] Address: [address] [place] [address] Performed By: #### 5 7021-8 ####[facility] LABIA [id number] [place] [address] [place] MCH (RBC) [Entitic mass] 30.4 pg Normal 26.0-34.0 [facility] Comment on above: Order Comment: Speci men Type: BLOOD SPECIMENOrdering Facility: [facility] Address: [address] [place] [address] Performed By: #### 5 7021-8 ####[facility] LABCLIA [id number] [place] [address] [place] MCHC (RBC) [Mass/Vol] 33.0 g/dL Normal 30.5-36.0 [facility] Comment on above: Order Comment: Speci men Type: BLOOD SPECIMENOrdering Facility: [facility] Address: [address] [place] [address] Performed By: #### 5 7021-8 ####[facility] LABCLIA [id number] [place] [address] [place] MCV (RBC) [Entitic vol] 92.2 fL Normal 80.0-100.0 [facility] Comment on above: Order Comment: Speci men Type: BLOOD SPECIMENOrdering Facility: [facility] Address: [address] [place] [address] Performed By: #### 5 7021-8 ####[facility] LABIA [id number] [place] [address] [place] Monocytes (Bld) [#/Vol] 0.62 10*3/uL Normal <0.87 [facility] Comment on above: Order Comment: Speci men Type: BLOOD SPECIMENOrdering Facility: [facility] Address: [address] [place] [address] Performed By: #### 5 7021-8 ####[facility] LABCLIA [id number] [place] [address] [place] Monocytes/100 WBC (Bld) 8.7 % Normal [facility] Comment on above: Order Comment: Speci men Type: BLOOD SPECIMENOrdering Facility: [facility] Address: [address] [place] [address] Performed By: #### 5 7021-8 ####[facility] LABIA [id number] [place] [id number] [address] [place] MYELO% 1.7 % Normal [facility] Comment on above: Order Comment: Speci men Type: BLOOD SPECIMENOrdering Facility: [facility] Address: [address] [place] [address] Performed By: #### 5 7021-8 ####[facility] LABCLIA [id number] [place] [address] [place] Neutrophils (Bld) [#/Vol] 5.67 10*3/uL Normal 1.45-7.50 [facility] Comment on above: Order Comment: Speci men Type: BLOOD SPECIMENOrdering Facility: [facility] Address: [address] [place] [address] Performed By: #### 5 7021-8 ####[facility] LABCLIA [id number] [place] [address] [place] Neutrophils/100 WBC (Bld) 80.0 % Normal [facility] Comment on above: Order Comment: Speci men Type: BLOOD SPECIMENOrdering Facility: [facility] Address: [address] [place] [address] Performed By: #### 5 7021-8 ####[facility] LABCLIA [id number] [place] [address] [place] Nucleated RBC/100 WBC (Bld) [Ratio] 0.0 /100 WBC Normal [facility] Comment on above: Order Comment: Speci men Type: BLOOD SPECIMENOrdering Facility: [facility] Address: [address] [place] [address] Performed By: #### 5 7021-8 ####[facility] LABCLIA [id number] [place] [address] [place] Ovalocytes LM Ql (Bld) Few Normal [facility] Comment on above: Order Comment: Speci men Type: BLOOD SPECIMENOrdering Facility: [facility] Address: [address] [place] [address] Performed By: #### 5 7021-8 ####[facility] LABCLIA [id number] [address] [address] [place] Platelet mean volume (Bld) [Entitic vol] 9.6 fL Normal 9.0-12.7 [facility] Comment on above: Order Comment: Speci men Type: BLOOD SPECIMENOrdering Facility: [facility] Address: [address] [place] [address] Performed By: #### 5 7021-8 ####[facility] LABIA [id number] [place] [address] [place] Platelets (Bld) [#/Vol] 169 10*3/uL Normal 150-400 [facility] Comment on above: Order Comment: Speci men Type: BLOOD SPECIMENOrdering Facility: [facility] Address: [address] [place] [address] Performed By: #### 5 7021-8 ####[facility] LABIA [id number] [place] [address] [place] Platelets Estimate (Bld) [#/Vol] Adequate Normal [facility] Comment on above: Order Comment: Speci men Type: BLOOD SPECIMENOrdering Facility: [facility] Address: [address] [place] [address] Performed By: #### 5 7021-8 ####[facility] LABIA [id number] [place] [address] [place] RBC (Bld) [#/Vol] 4.37 10*6/uL Normal 4.20-6.00 [facility] Comment on above: Order Comment: Speci men Type: BLOOD SPECIMENOrdering Facility: [facility] Address: [address] [place] [address] Performed By: #### 5 7021-8 ####[facility] LABIA [id number] [place] [address] [place] RED CELL MORPH Reviewed: see result s of individual morphologies Normal [facility] Comment on above: Order Comment: Speci men Type: BLOOD SPECIMENOrdering Facility: [facility] Address: [address] [place] [address] Performed By: #### 5 7021-8 ####[facility] LABCLIA [id number] [place] [address] [place] WBC (Bld) [#/Vol] 7.09 10*3/uL Normal 3.70-11.00 [facility] Comment on above: Order Comment: Speci men Type: BLOOD SPECIMENOrdering Facility: [facility] Address: [address] [place] [address] Performed By: #### 5 7021-8 ####[facility] LABCLIA [id number] [place] [address] [place] WBC Left Shift Ql (Bld) Present Normal [facility] Comment on above: Order Comment: Speci men Type: BLOOD SPECIMENOrdering Facility: [facility] Address: [address] [place] [address] Performed By: #### 5 7021-8 ####[facility]CL[facility] [id number] [place] [address] [place] CBC panel Auto (Bld)on 06-08 Hematocrit (Bld) [Volume fraction] 44.0 % Normal 39.0-51.0 [facility] Comment on above: Order Comment: Speci men Type: BLOOD SPECIMENOrdering Facility: [facility] Address: [address] [place] [address] Performed By: #### 5 8410-2 ####[facility]IA [id number] [place] [address] [place] Hemoglobin (Bld) [Mass/Vol] 15.0 g/dL Normal 13.0-17.0 [facility] Comment on above: Order Comment: Speci men Type: BLOOD SPECIMENOrdering Facility: [facility] Address: [address] [place] [address] Performed By: #### 5 8410-2 ####[facility]IA [id number] [place] [address] [place] MCH (RBC) [Entitic mass] 29.4 pg Normal 26.0-34.0 [facility] Comment on above: Order Comment: Speci men Type: BLOOD SPECIMENOrdering Facility: [facility] Address: [address] [place] [address] Performed By: #### 5 8410-2 ####[facility] [id number] [place] [address] [place] MCHC (RBC) [Mass/Vol] 34.1 g/dL Normal 30.5-36.0 [facility] Comment on above: Order Comment: Speci men Type: BLOOD SPECIMENOrdering Facility: [facility] Address: [address] [place] [address] Performed By: #### 5 8410-2 ####[facility] [id number] [place] [address] [place] MCV (RBC) [Entitic vol] 86.1 fL Normal 80.0-100.0 [facility] Comment on above: Order Comment: Speci men Type: BLOOD SPECIMENOrdering Facility: [facility] Address: [address] [place] [address] Performed By: #### 5 8410-2 ####[facility]IA [id number] [place] [address] [place] Platelet mean volume (Bld) [Entitic vol] 9.2 fL Normal 9.0-12.7 [facility] Comment on above: Order Comment: Speci men Type: BLOOD SPECIMENOrdering Facility: [facility] Address: [address] [place] [address] Performed By: #### 5 8410-2 ####[facility]IA [id number] [place] [address] [place] Platelets (Bld) [#/Vol] 185 10*3/uL Normal 150-400 [facility] Comment on above: Order Comment: Speci men Type: BLOOD SPECIMENOrdering Facility: [facility] Address: [address] [place] [address] Performed By: #### 5 8410-2 ####[facility]IA [id number] [place] [address] [place] RBC (Bld) [#/Vol] 5.11 10*6/uL Normal 4.20-6.00 [facility] Comment on above: Order Comment: Speci men Type: BLOOD SPECIMENOrdering Facility: [facility] Address: [address] [place] [address] Performed By: #### 5 8410-2 ####[facility] [id number] [place] [address] [place] WBC (Bld) [#/Vol] 10.07 10*3/uL Normal 3.70-11.00 [facility] Comment on above: Order Comment: Speci men Type: BLOOD SPECIMENOrdering Facility: [facility] Address: [address] [place] [address] Performed By: #### 5 8410-2 ####[facility] [id number] [place] [address] [place] CT ABD/PEL W IVCONon 024 CT ABD/PEL W IVCON Normal [facility] CTA CHEST (NON GATED) W IVCO N PEon 06-08-2024 CTA CHEST (NON GATED) W IVCON PE Normal [facility] ECG COMPLETEon 06-08-2024 ECG COMPLETE Normal [facility] MEDICAL EMERon 06-08-2024 MEDICAL SASHA Normal [facility] Magnesium SerPl-mCncon 06-08 Magnesium [Mass/Vol] 1.3 mg/dL Low 1.7-2.3 [facility] Comment on above: Order Comment: Speci men Type: BLOOD SPECIMENOrdering Facility: [facility] Address: [address] [place] [address] Performed By: #### 2 777-1, 63695-1, ####[facility] [id number] [place] [id number] [place] NURSING PROGon 06-08-2024 NURSING PROG Normal [facility] Phosphate SerPl-ncon 06-08 Phosphate [Mass/Vol] 1.0 mg/dL Low 2.7-4.8 [facility] Comment on above: Order Comment: Speci men Type: BLOOD SPECIMENOrdering Facility: [facility] Address: [address] [place] [address] Result Comment: Resu lt rechecked. Performed By: #### 2 777-1, , ####[facility] [id number] [place] [address] [place] [facility] Tacrolimus Bld-[facility] 2023 Tacrolimus (Bld) [Mass/Vol] 7.7 ng/mL Normal 5.0-20.0 [facility] Comment on above: Order Comment: Allegra donis Type: BLOOD SPECIMENOrdering Facility: [facility] Address: [address] [place] [address] Result Comment: Noreen vidualized target levels for [...] situation. Test performed by chemiluminescent immunoassay using [employer] i. Performed By: #### 1 1253-2 ####[facility] [id number] [place] [address] [place] XR CHEST 1V FRONTAL PORTon 1 08-09-2023 XR CHEST 1V FRONTAL PORT Normal [facility] Basic metabolic 2000 panelon 06-07-2024 Anion gap [Moles/Vol] 16 mmol/L High 8-15 [facility] Comment on above: Order Comment: Speci men Type: BLOOD SPECIMENOrdering Facility: [facility] Address: [address] [place] [address] Performed By: #### 2 777-1, 68544-7, 42665-8, 85231-6 ####[facility] LABIA [id number] [place] [address] [place] Calcium [Mass/Vol] 9.1 mg/dL Normal 8.5-10.2 [facility] Comment on above: Order Comment: Speci men Type: BLOOD SPECIMENOrdering Facility: [facility] Address: [address] [place] [address] Performed By: #### 2 777-1, , 62832-4, 95510-2 ####[facility] [id number] [place] [address] [place] Chloride [Moles/Vol] 100 mmol/L Normal 98-107 [facility] Comment on above: Order Comment: Speci men Type: BLOOD SPECIMENOrdering Facility: [facility] Address: [address] [place] [address] Performed By: #### 2 777-1, , 23345-0, 29154-2 ####[facility] LABIA [id number] [address] [address] [place] CO2 [Moles/Vol] 19 mmol/L Low 22-30 [facility] Comment on above: Order Comment: Speci men Type: BLOOD SPECIMENOrdering Facility: [facility] Address: [address] [place] [address] Performed By: #### 2 777-1, 60228-3, 92004-6, 75977-6 ####[facility] LABIA [id number] [address] [address] [place] Creatinine [Mass/Vol] 0.88 mg/dL Normal 0.73-1.22 [facility] Comment on above: Order Comment: Allegra donis Type: BLOOD SPECIMENOrdering Facility: [facility] Address: [address] [place] [address] Performed By: #### 2 777-1, 38733-1, 87407-2, 17865-7 ####[facility] LABIA [id number] [place] [address] [place] Creatinine and Glomerular filtration rate.predicted panel (S/P/Bld) 91 mL/min/1.73m??? Normal >=60 [facility] Comment on above: Order Comment: Allegra donis Type: BLOOD SPECIMENOrdering Facility: [facility] Address: [address] [place] [address] Result Comment: Stephanie mated Glomerular Filtration Rate (eGFR) is calculated using the 2020 CKD-EPI creatinine equation. This equation utilizes serum creatinine, sex, and age as parameters. The creatinine assay has traceable calibration to isotope dilution-mass spectrometry. Refer to KDIGO guidelines for clinical interpretation. In patients with unstable renal function, e.g. those with acute kidney injury, the eGFR may not accurately reflect actual GFR. Performed By: #### 2 777-1, , 35006-6, 72067-7 ####[facility] LABIA [id number] [place] [id number] [place] Glucose [Mass/Vol] 103 mg/dL High 74-99 [facility] Comment on above: Order Comment: Allegra donis Type: BLOOD SPECIMENOrdering Facility: [facility] Address: [address] [place] [address] Result Comment: The [place] Diabetes Association (ADA) provides guidance for cutoff values for fasting glucose and random glucose. The ADA defines fasting as no caloric intake for at least 8 hours. Fasting plasma glucose results between 100 to 125 mg/dL indicate increased risk for diabetes (prediabetes).Fasting plasma glucose results greater than or equal to 126 mg/dL meet the criteria for diagnosis of diabetes. In the absence of unequivocal hyperglycemia, results should be confirmed by repeat testing. In a patient with classic symptoms of hyperglycemia or hyperglycemic crisis, random plasma glucose results greater than or equal to 200 mg/dL meet the criteria for diagnosis of diabetes.Reference: Standards of Medical Care in Diabetes 2016, [place] [employer]. Diabetes Care. 2016.39(Suppl 1). Performed By: #### 2 777-1, , 66804-9, 97476-4 ####[facility] [id number] [place] [address] [place] Potassium [Moles/Vol] 4.1 mmol/L Normal 3.7-5.1 [facility] Comment on above: Order Comment: Speci men Type: BLOOD SPECIMENOrdering Facility: [facility] Address: [address] [place] [address] Performed By: #### 2 777-1, , 08040-4, 83564-8 ####[facility] LABIA [id number] [place] [address] [place] Sodium [Moles/Vol] 135 mmol/L Low 136-144 [facility] Comment on above: Order Comment: Speci men Type: BLOOD SPECIMENOrdering Facility: [facility] Address: [address] [place] [address] Performed By: #### 2 777-1, , 58619-3, 74642-0 ####[facility] LABIA [id number] [place] [id number] [place] Urea nitrogen [Mass/Vol] 21 mg/dL Normal 9-24 [facility] Comment on above: Order Comment: Speci men Type: BLOOD SPECIMENOrdering Facility: [facility] Address: [address] [place] [address] Performed By: #### 2 777-1, , 89622-3, 98243-1 ####[facility] [id number] [place] [address] [place] CASE MANAGEMon 06-07-2024 CASE MANAGEM Normal [facility] CBC W Auto Differential pane l (Bld)on 06-07-2024 Basophils (Bld) [#/Vol] 0.00 10*3/uL Normal <0.11 [facility] Comment on above: Order Comment: Speci men Type: BLOOD SPECIMENOrdering Facility: [facility] Address: [address] [place] [address] Performed By: #### 5 7021-8 ####[facility] [id number] [place] [address] [place] Basophils/100 WBC (Bld) 0.0 % Normal [facility] Comment on above: Order Comment: Speci men Type: BLOOD SPECIMENOrdering Facility: [facility] Address: [address] [place] [address] Performed By: #### 5 7021-8 ####[facility] [id number] [place] [address] [place] Differential cell count method Nom (Bld) Manual Normal [facility] Comment on above: Order Comment: Speci men Type: BLOOD SPECIMENOrdering Facility: [facility] Address: [address] [place] [address] Performed By: #### 5 7021-8 ####[facility] [id number] [place] [address] [place] Eosinophils (Bld) [#/Vol] 0.00 10*3/uL Normal <0.46 [facility] Comment on above: Order Comment: Speci men Type: BLOOD SPECIMENOrdering Facility: [facility] Address: [address] [place] [address] Performed By: #### 5 7021-8 ####[facility]CLIA [id number] [place] [address] [place] Eosinophils/100 WBC (Bld) 0.0 % Normal [facility] Comment on above: Order Comment: Speci men Type: BLOOD SPECIMENOrdering Facility: [facility] Address: [address] [place] [address] Performed By: #### 5 7021-8 ####[facility]CL[facility] [id number] [place] [address] [place] Erythrocyte distribution width (RBC) [Ratio] 13.7 % Normal 11.5-15.0 [facility] Comment on above: Order Comment: Speci men Type: BLOOD SPECIMENOrdering Facility: [facility] Address: [address] [place] [address] Performed By: #### 5 7021-8 ####[facility] [id number] [place] [address] [place] Hematocrit (Bld) [Volume fraction] 44.6 % Normal 39.0-51.0 [facility] Comment on above: Order Comment: Speci men Type: BLOOD SPECIMENOrdering Facility: [facility] Address: [address] [place] [address] Performed By: #### 5 7021-8 ####[facility]IA [id number] [place] [address] [place] Hemoglobin (Bld) [Mass/Vol] 15.2 g/dL Normal 13.0-17.0 [facility] Comment on above: Order Comment: Speci men Type: BLOOD SPECIMENOrdering Facility: [facility] Address: [address] [place] [address] Performed By: #### 5 7021-8 ####[facility]CL[facility] [id number] [place] [address] [place] Lymphocytes (Bld) [#/Vol] 0.33 10*3/uL Low 1.00-4.00 [facility] Comment on above: Order Comment: Speci men Type: BLOOD SPECIMENOrdering Facility: [facility] Address: [address] [place] [address] Performed By: #### 5 7021-8 ####[facility]CL[facility] [id number] [place] [address] [place] Lymphocytes/100 WBC (Bld) 4.3 % Normal [facility] Comment on above: Order Comment: Speci men Type: BLOOD SPECIMENOrdering Facility: [facility] Address: [address] [place] [address] Performed By: #### 5 7021-8 ####[facility]CLIA [id number] [place] [address] [place] MCH (RBC) [Entitic mass] 30.5 pg Normal 26.0-34.0 [facility] Comment on above: Order Comment: Speci men Type: BLOOD SPECIMENOrdering Facility: [facility] Address: [address] [place] [address] Performed By: #### 5 7021-8 ####[facility] LABIA [id number] [place] [address] [place] MCHC (RBC) [Mass/Vol] 34.1 g/dL Normal 30.5-36.0 [facility] Comment on above: Order Comment: Speci men Type: BLOOD SPECIMENOrdering Facility: [facility] Address: [address] [place] [address] Performed By: #### 5 7021-8 ####[facility]CL[facility] [id number] [place] [address] [place] MCV (RBC) [Entitic vol] 89.4 fL Normal 80.0-100.0 [facility] Comment on above: Order Comment: Speci men Type: BLOOD SPECIMENOrdering Facility: [facility] Address: [address] [place] [address] Performed By: #### 5 7021-8 ####[facility]CL[facility] [id number] [place] [address] [place] Monocytes (Bld) [#/Vol] 0.39 10*3/uL Normal <0.87 [facility] Comment on above: Order Comment: Speci men Type: BLOOD SPECIMENOrdering Facility: [facility] Address: [address] [place] [address] Performed By: #### 5 7021-8 ####[facility]CL[facility] [id number] [place] [address] [place] Monocytes/100 WBC (Bld) 5.2 % Normal [facility] Comment on above: Order Comment: Speci men Type: BLOOD SPECIMENOrdering Facility: [facility] Address: [address] [place] [address] Performed By: #### 5 7021-8 ####[facility] [id number] [place] [address] [place] Neutrophils (Bld) [#/Vol] 6.87 10*3/uL Normal 1.45-7.50 [facility] Comment on above: Order Comment: Speci men Type: BLOOD SPECIMENOrdering Facility: [facility] Address: [address] [place] [address] Performed By: #### 5 7021-8 ####[facility]CL[facility] [id number] [place] [address] [place] Neutrophils/100 WBC (Bld) 90.5 % Normal [facility] Comment on above: Order Comment: Speci men Type: BLOOD SPECIMENOrdering Facility: [facility] Address: [address] [place] [address] Performed By: #### 5 7021-8 ####[facility]CLIA [id number] [place] [address] [place] Nucleated RBC (Bld) [#/Vol] 10*3/uL Normal <0.01 [facility] Comment on above: Order Comment: Speci men Type: BLOOD SPECIMENOrdering Facility: [facility] Address: [address] [place] [address] Performed By: #### 5 7021-8 ####[facility] LABIA [id number] [place] [address] [place] Nucleated RBC/100 WBC (Bld) [Ratio] 0.0 /100 WBC Normal [facility] Comment on above: Order Comment: Speci men Type: BLOOD SPECIMENOrdering Facility: [facility] Address: [address] [place] [address] Performed By: #### 5 7021-8 ####[facility] LABIA [id number] [place] [address] [place] Platelet mean volume (Bld) [Entitic vol] 9.7 fL Normal 9.0-12.7 [facility] Comment on above: Order Comment: Speci men Type: BLOOD SPECIMENOrdering Facility: [facility] Address: [address] [place] [address] Performed By: #### 5 7021-8 ####[facility] LABIA [id number] [place] [address] [place] Platelets (Bld) [#/Vol] 177 10*3/uL Normal 150-400 [facility] Comment on above: Order Comment: Speci men Type: BLOOD SPECIMENOrdering Facility: [facility] Address: [address] [place] [address] Performed By: #### 5 7021-8 ####[facility] LABIA [id number] [place] [address] [place] Platelets Estimate (Bld) [#/Vol] Adequate Normal [facility] Comment on above: Order Comment: Speci men Type: BLOOD SPECIMENOrdering Facility: [facility] Address: [address] [place] [address] Performed By: #### 5 7021-8 ####[facility]CL[facility] [id number] [place] [address] [place] Polychromasia LM Ql (Bld) Slight Normal [facility] Comment on above: Order Comment: Speci men Type: BLOOD SPECIMENOrdering Facility: [facility] Address: [address] [place] [address] Performed By: #### 5 7021-8 ####[facility]IA [id number] [place] [address] [place] RBC (Bld) [#/Vol] 4.99 10*6/uL Normal 4.20-6.00 [facility] Comment on above: Order Comment: Speci men Type: BLOOD SPECIMENOrdering Facility: [facility] Address: [address] [place] [address] Performed By: #### 5 7021-8 ####[facility] LABIA [id number] [place] [address] [place] RED CELL MORPH Reviewed: see result s of individual morphologies Normal [facility] Comment on above: Order Comment: Speci men Type: BLOOD SPECIMENOrdering Facility: [facility] Address: [address] [place] [address] Performed By: #### 5 7021-8 ####[facility]IA [id number] [place] [address] [place] WBC (Bld) [#/Vol] 7.59 10*3/uL Normal 3.70-11.00 [facility] Comment on above: Order Comment: Speci men Type: BLOOD SPECIMENOrdering Facility: [facility] Address: [address] [place] [address] Performed By: #### 5 7021-8 ####[facility] LABIA [id number] [place] [address] [place] Hepatic function 2000 panelo n 06-07-2024 Albumin [Mass/Vol] 3.4 g/dL Low 3.9-4.9 [facility] Comment on above: Order Comment: Speci men Type: BLOOD SPECIMENOrdering Facility: [facility] Address: [address] [place] [address] Performed By: #### 2 777-1, 28478-7, 87470-2, 32199-0 ####[facility]CLIA [id number] [place] [address] [place] ALP [Catalytic activity/Vol] 60 U/L Normal 38-113 [facility] Comment on above: Order Comment: Speci men Type: BLOOD SPECIMENOrdering Facility: [facility] Address: [address] [place] [address] Performed By: #### 2 777-1, , 57807-4, 99116-5 ####[facility]CLIA [id number] [place] [address] [place] ALT [Catalytic activity/Vol] 19 U/L Normal 10-54 [facility] Comment on above: Order Comment: Speci men Type: BLOOD SPECIMENOrdering Facility: [facility] Address: [address] [place] [address] Performed By: #### 2 777-1, , 27611-9, 62544-5 ####[facility]CLIA [id number] [place] [address] [place] AST [Catalytic activity/Vol] 24 U/L Normal 14-40 [facility] Comment on above: Order Comment: Speci men Type: BLOOD SPECIMENOrdering Facility: [facility] Address: [address] [place], [place] [address] Performed By: #### 2 777-1, , 38522-3, 28697-7 ####[facility]CLIA [id number] [address] [address] [place] Bilirubin [Mass/Vol] 0.7 mg/dL Normal 0.2-1.3 [facility] Comment on above: Order Comment: Speci men Type: BLOOD SPECIMENOrdering Facility: [facility] Address: [address] [place] [address] Performed By: #### 2 777-1, , 84529-8, 91568-0 ####[facility]CLIA [id number] [place] [address] [place] Bilirubin.conjugated [Mass/Vol] 0.2 mg/dL High <0.2 [facility] Comment on above: Order Comment: Speci men Type: BLOOD SPECIMENOrdering Facility: [facility] Address: [address] [place] [address] Result Comment: Resu lts may be falsely decreased due to interference from hemolysis. Suggest reorder as clinically indicated. Performed By: #### 2 777-1, , 66302-2, 18322-8 ####[facility] [id number] [place] [address] [place] Protein [Mass/Vol] 5.3 g/dL Low 6.3-8.0 [facility] Comment on above: Order Comment: Speci men Type: BLOOD SPECIMENOrdering Facility: [facility] Address: [address] [place] [address] Performed By: #### 2 777-1, , 51002-5, 14977-9 ####[facility]CL[facility] [id number] [place] [address] [place] Magnesium SerPl-mCncon 06-07 Magnesium [Mass/Vol] 1.5 mg/dL Low 1.7-2.3 [facility] Comment on above: Order Comment: Speci men Type: BLOOD SPECIMENOrdering Facility: [facility] Address: [address] [place] [address] Performed By: #### 2 777-1, , 02796-9, 40647-3 ####[facility]CLIA [id number] [place] [address] [place] Phosphate SerPl-mCncon 06-07 Phosphate [Mass/Vol] 3.4 mg/dL Normal 2.7-4.8 [facility] Comment on above: Order Comment: Speci men Type: BLOOD SPECIMENOrdering Facility: [facility] Address: [address] [place] [address] Performed By: #### 2 777-1, 71305-7, 12530-6, 82894-0 ####[facility] LABIA [id number] [place] [address] [place] ANES POSTPROC EVALon 024 ANES POSTPROC EVAL Normal [facility] ANES PRE-OPon 06-06-2024 ANES PRE-OP Normal [facility] ARTERIAL BLOOD GASESon 06-06 Base deficit (BldA) [Moles/Vol] -1 mmol/L Normal -2-0 [facility] Comment on above: Order Comment: Speci men Type: ARTERIAL BLOOD SPECIMENOrdering Facility: [facility] Address: [address] [place] [address] Performed By: #### A LLBG ####[facility] [id number] [place] [address] [place] Body temperature 96.8 [degF] Normal [facility] Comment on above: Order Comment: Speci men Type: ARTERIAL BLOOD SPECIMENOrdering Facility: [facility] Address: [address] [place] [address] Performed By: #### A LLBG ####[facility] LABIA [id number] [place] [address] [place] Calcium.ionized (Bld) [Mass/Vol] 1.14 mmol/L Normal 1.08-1.30 [facility] Comment on above: Order Comment: Speci men Type: ARTERIAL BLOOD SPECIMENOrdering Facility: [facility] Address: [address] [place] [address] Performed By: #### A LLBG ####[facility]IA [id number] [place] [address] [place] Calcium.ionized adjusted to pH 7.4 (BldA) [Moles/Vol] 1.13 mmol/L Normal 1.08-1.30 [facility] Comment on above: Order Comment: Speci men Type: ARTERIAL BLOOD SPECIMENOrdering Facility: [facility] Address: [address] [place] [address] Performed By: #### A LLBG ####[facility] [id number] [place] [address] [place] Carboxyhemoglobin (BldA) [Mass fraction] 1.3 % Normal 0.0-2.0 [facility] Comment on above: Order Comment: Speci men Type: ARTERIAL BLOOD SPECIMENOrdering Facility: [facility] Address: [address] [place] [address] Result Comment: Carb oxyhemoglobin Reference Range for Smokers: 2.0-8.0% Performed By: #### A LLBG ####[facility] [id number] [place] [address] [place] CO2 (Bld) [Partial pressure] 41 mm Hg Normal 36-46 [facility] Comment on above: Order Comment: Speci men Type: ARTERIAL BLOOD SPECIMENOrdering Facility: [facility] Address: [address] [place] [address] Performed By: #### A LLBG ####[facility]IA [id number] [place] [address] [place] CO2 adjusted to patient's actual temperature (Bld) [Partial pressure] 39 mmHg Normal 36-46 [facility] Comment on above: Order Comment: Speci men Type: ARTERIAL BLOOD SPECIMENOrdering Facility: [facility] Address: [address] [place] [address] Performed By: #### A LLBG ####[facility]CLIA [id number] [place] [address] [place] Glucose [Mass/Vol] 126 mg/dL High 60-105 [facility] Comment on above: Order Comment: Speci men Type: ARTERIAL BLOOD SPECIMENOrdering Facility: [facility] Address: [address] [place] [address] Performed By: #### A LLBG ####[facility]CL[facility] [id number] [place] [address] [place] HCO3 (Bld) [Moles/Vol] 24 mmol/L Normal 22-26 [facility] Comment on above: Order Comment: Speci men Type: ARTERIAL BLOOD SPECIMENOrdering Facility: [facility] Address: [address] [place] [address] Performed By: #### A LLBG ####[facility] [id number] [place] [address] [place] Hematocrit (Bld) [Volume fraction] 47.1 % Normal 39.0-51.0 [facility] Comment on above: Order Comment: Speci men Type: ARTERIAL BLOOD SPECIMENOrdering Facility: [facility] Address: [address] [place] [address] Performed By: #### A LLBG ####[facility] LABCLIA [id number] [place] [address] [place] Hemoglobin (Bld) [Mass/Vol] 15.4 g/dL Normal 13.0-17.0 [facility] [place] Comment on above: Order Comment: Speci men Type: ARTERIAL BLOOD SPECIMENOrdering Facility: [facility] Address: [address] [place] [address] Performed By: #### A LLBG ####[facility] LABCLIA [id number] [place] [address] [place] Lactate [Moles/Vol] 0.8 mmol/L Normal 0.5-2.2 [facility] Comment on above: Order Comment: Speci men Type: ARTERIAL BLOOD SPECIMENOrdering Facility: [facility] Address: [address] [place] [address] Performed By: #### A LLBG ####[facility] LABCLIA [id number] [place] [id number] [place] 4 Liters/min Normal [facility] [place] Comment on above: Order Comment: Speci men Type: ARTERIAL BLOOD SPECIMENOrdering Facility: [facility] Address: [address] [place] [address] Performed By: #### A LLBG ####[facility] LABCLIA [id number] [place] [address] [place] Methemoglobin (Bld) [Mass fraction] 0.8 % Normal 0.0-1.5 [facility] [place] Comment on above: Order Comment: Speci men Type: ARTERIAL BLOOD SPECIMENOrdering Facility: [facility] Address: [address] [place] [address] Performed By: #### A LLBG ####[facility] LABCLIA [id number] [place] [address] [place] O2 THERAPY NC = Nasal Cannula Normal [facility] Comment on above: Order Comment: Speci men Type: ARTERIAL BLOOD SPECIMENOrdering Facility: [facility] Address: [address] [place] [address] Performed By: #### A LLBG ####[facility] LABCLIA [id number] [place] [address] [place] Oxygen (Bld) [Partial pressure] 141 mm Hg High 85-95 [facility] Comment on above: Order Comment: Speci men Type: ARTERIAL BLOOD SPECIMENOrdering Facility: [facility] Address: [address] [place], [place] [address] Performed By: #### A LLBG ####[facility] LABCLIA [id number] [place] [address] [place] Oxygen adjusted to patient's actual temperature (Bld) [Partial pressure] 135 mmHg High 85-95 [facility] [place] Comment on above: Order Comment: Speci men Type: ARTERIAL BLOOD SPECIMENOrdering Facility: [facility] Address: [address] [place] [address] Performed By: #### A LLBG ####[facility] LABCLIA [id number] [place] [address] [place] Oxyhemoglobin (BldA) [Mass fraction] 97 % Normal 95-98 [facility] [place] Comment on above: Order Comment: Speci men Type: ARTERIAL BLOOD SPECIMENOrdering Facility: [facility] Address: [address] [place] [address] Performed By: #### A LLBG ####[facility] LABCLIA [id number] [place] [address] [place] pH (Bld) 7.38 [pH] Normal 7.35-7.45 [facility] [place] Comment on above: Order Comment: Speci men Type: ARTERIAL BLOOD SPECIMENOrdering Facility: [facility] Address: [address] [place] [address] Performed By: #### A LLBG ####[facility] LABCLIA [id number] [place] [address] [place] pH adjusted to patient's actual temperature (Bld) 7.40 Normal 7.35-7.45 [facility] Comment on above: Order Comment: Speci men Type: ARTERIAL BLOOD SPECIMENOrdering Facility: [facility] Address: [address] [place] [address] Performed By: #### A LLBG ####[facility] LABCLIA [id number] [place] [address] [place] Potassium [Moles/Vol] 3.7 mmol/L Normal 3.5-5.0 [facility] Comment on above: Order Comment: Speci men Type: ARTERIAL BLOOD SPECIMENOrdering Facility: [facility] Address: [address] [place] [address] Performed By: #### A LLBG ####[facility] LABCLIA [id number] [place] [id number] [place] Sodium [Moles/Vol] 133 mmol/L Low 136-144 [facility] Comment on above: Order Comment: Speci men Type: ARTERIAL BLOOD SPECIMENOrdering Facility: [facility] Address: [address] [place] [address] Performed By: #### A LLBG ####[facility] LABCLIA [id number] [place] [address] [place] Basic metabolic 2000 panelon 06-06-2024 Anion gap [Moles/Vol] 14 mmol/L Normal 8-15 [facility] Comment on above: Order Comment: Speci men Type: BLOOD SPECIMENOrdering Facility: [facility] Address: [address] [place] [address] Performed By: #### 2 4321-2, 51779-2, 277-1 ####[facility] LABIA [id number] [place] [address] [place] Calcium [Mass/Vol] 9.2 mg/dL Normal 8.5-10.2 [facility] Comment on above: Order Comment: Speci men Type: BLOOD SPECIMENOrdering Facility: [facility] Address: [address] [place] [address] Performed By: #### 2 4321-2, 03964-1, 277-1 ####[facility] LABCLIA [id number] [place] [id number] [place] Chloride [Moles/Vol] 98 mmol/L Normal 98-107 [facility] Comment on above: Order Comment: Speci men Type: BLOOD SPECIMENOrdering Facility: [facility] Address: [address] [place] [address] Performed By: #### 2 4321-2, , 2776-06 ####[facility] LABCLIA [id number] [place] [address] [place] CO2 [Moles/Vol] 23 mmol/L Normal 22-30 [facility] [place] Comment on above: Order Comment: Speci men Type: BLOOD SPECIMENOrdering Facility: [facility] Address: [address] [place] [address] Performed By: #### 2 4321-2, , 2776-06 ####[facility] LABIA [id number] [place] [address] [place] Creatinine [Mass/Vol] 0.77 mg/dL Normal 0.73-1.22 [facility] Comment on above: Order Comment: Speci men Type: BLOOD SPECIMENOrdering Facility: [facility] Address: [address] [place] [address] Performed By: #### 2 432-2, , 2776-06 ####[facility] LABIA [id number] [place] [address] [place] Creatinine and Glomerular filtration rate.predicted panel (S/P/Bld) 95 mL/min/1.73m??? Normal >=60 [facility] [place] Comment on above: Order Comment: Speci men Type: BLOOD SPECIMENOrdering Facility: [facility] Address: [address] [place] [address] Result Comment: Stephanie mated Glomerular Filtration Rate (eGFR) is calculated using the 2020 CKD-EPI creatinine equation. This equation utilizes serum creatinine, sex, and age as parameters. The creatinine assay has traceable calibration to isotope dilution-mass spectrometry. Refer to KDIGO guidelines for clinical interpretation. In patients with unstable renal function, e.g. those with acute kidney injury, the eGFR may not accurately reflect actual GFR. Performed By: #### 2 4321-2, , 2776-06 ####[facility] LABCLIA [id number] [place] [id number] [place] Glucose [Mass/Vol] 85 mg/dL Normal 74-99 [facility] Comment on above: Order Comment: Speci men Type: BLOOD SPECIMENOrdering Facility: [facility] Address: [address] [place] [address] Result Comment: The [place] Diabetes Association (ADA) provides guidance for cutoff values for fasting glucose and random glucose. The ADA defines fasting as no caloric intake for at least 8 hours. Fasting plasma glucose results between 100 to 125 mg/dL indicate increased risk for diabetes (prediabetes).Fasting plasma glucose results greater than or equal to 126 mg/dL meet the criteria for diagnosis of diabetes. In the absence of unequivocal hyperglycemia, results should be confirmed by repeat testing. In a patient with classic symptoms of hyperglycemia or hyperglycemic crisis, random plasma glucose results greater than or equal to 200 mg/dL meet the criteria for diagnosis of diabetes.Reference: Standards of Medical Care in Diabetes 2016, [place] [employer]. Diabetes Care. 2016.39(Suppl 1). Performed By: #### 2 4321-2, , 2776-06 ####[facility] LABCLIA [id number] [place] [address] [place] Potassium [Moles/Vol] 4.0 mmol/L Normal 3.7-5.1 [facility] Comment on above: Order Comment: Speci men Type: BLOOD SPECIMENOrdering Facility: [facility] Address: [address] [place] [address] Performed By: #### 2 4321-2, , 2776-06 ####[facility] LABCLIA [id number] [place] [id number] [place] Sodium [Moles/Vol] 135 mmol/L Low 136-144 [facility] Comment on above: Order Comment: Speci men Type: BLOOD SPECIMENOrdering Facility: [facility] Address: [address] [place] [address] Performed By: #### 2 4321-2, , 2776-06 ####[facility] LABCLIA [id number] [place] [address] [place] Urea nitrogen [Mass/Vol] 15 mg/dL Normal 9-24 [facility] [place] Comment on above: Order Comment: Speci men Type: BLOOD SPECIMENOrdering Facility: [facility] Address: [address] [place] [address] Performed By: #### 2 4321-2, 07829-8, 2777-1 ####[facility] LABCLIA [id number] [place] [address] [place] CASE MGT INIT ASSESon 2023 CASE MGT INIT ASSES Normal [facility] CBC W Auto Differential pane l (Bld)on 06-06-2024 Basophils (Bld) [#/Vol] 0.04 10*3/uL Normal <0.11 [facility] Comment on above: Order Comment: Speci men Type: BLOOD SPECIMENOrdering Facility: [facility] Address: [address] [place] [address] Performed By: #### 5 7021-8 ####[facility] LABIA [id number] [place] [address] [place] Basophils/100 WBC (Bld) 0.4 % Normal [facility] Comment on above: Order Comment: Speci men Type: BLOOD SPECIMENOrdering Facility: [facility] Address: [address] [place] [address] Performed By: #### 5 7021-8 ####[facility] LABCLIA [id number] [place] [address] [place] Differential cell count method Nom (Bld) Auto Normal [facility] Comment on above: Order Comment: Speci men Type: BLOOD SPECIMENOrdering Facility: [facility] Address: [address] [place] [address] Performed By: #### 5 7021-8 ####[facility] LABCLIA [id number] [place] [address] [place] Eosinophils (Bld) [#/Vol] 0.21 10*3/uL Normal <0.46 [facility] Comment on above: Order Comment: Speci men Type: BLOOD SPECIMENOrdering Facility: [facility] Address: [address] [place] [address] Performed By: #### 5 7021-8 ####[facility] LABCLIA [id number] [place] [address] [place] Eosinophils/100 WBC (Bld) 2.2 % Normal [facility] Comment on above: Order Comment: Speci men Type: BLOOD SPECIMENOrdering Facility: [facility] Address: [address] [place] [address] Performed By: #### 5 7021-8 ####[facility] LABCLIA [id number] [place] [address] [place] Erythrocyte distribution width (RBC) [Ratio] 13.6 % Normal 11.5-15.0 [facility] Comment on above: Order Comment: Speci men Type: BLOOD SPECIMENOrdering Facility: [facility] Address: [address] [place] [address] Performed By: #### 5 7021-8 ####[facility] LABCLIA [id number] [place] [address] [place] Hematocrit (Bld) [Volume fraction] 42.4 % Normal 39.0-51.0 [facility] Comment on above: Order Comment: Speci men Type: BLOOD SPECIMENOrdering Facility: [facility] Address: [address] [place] [address] Performed By: #### 5 7021-8 ####[facility] LABCLIA [id number] [place] [address] [place] Hemoglobin (Bld) [Mass/Vol] 14.7 g/dL Normal 13.0-17.0 [facility] Comment on above: Order Comment: Speci men Type: BLOOD SPECIMENOrdering Facility: [facility] Address: [address] [place] [address] Performed By: #### 5 7021-8 ####[facility] LABCLIA [id number] [place] [address] [place] Immature granulocytes (Bld) [#/Vol] 0.03 10*3/uL Normal <0.10 [facility] Comment on above: Order Comment: Speci men Type: BLOOD SPECIMENOrdering Facility: [facility] Address: [address] [place] [address] Performed By: #### 5 7021-8 ####[facility] LABCLIA [id number] [place] [address] [place] Immature granulocytes/100 WBC (Bld) 0.3 % Normal [facility] Comment on above: Order Comment: Speci men Type: BLOOD SPECIMENOrdering Facility: [facility] Address: [address] [place] [address] Performed By: #### 5 7021-8 ####[facility] LABCLIA [id number] [place] [address] [place] Lymphocytes (Bld) [#/Vol] 0.35 10*3/uL Low 1.00-4.00 [facility] Comment on above: Order Comment: Speci men Type: BLOOD SPECIMENOrdering Facility: [facility] Address: [address] [place] [address] Performed By: #### 5 7021-8 ####[facility] LABCLIA [id number] [place] [address] [place] Lymphocytes/100 WBC (Bld) 3.6 % Normal [facility] Comment on above: Order Comment: Speci men Type: BLOOD SPECIMENOrdering Facility: [facility] Address: [address] [place] [address] Performed By: #### 5 7021-8 ####[facility] LABCLIA [id number] [place] [address] [place] MCH (RBC) [Entitic mass] 30.8 pg Normal 26.0-34.0 [facility] Comment on above: Order Comment: Speci men Type: BLOOD SPECIMENOrdering Facility: [facility] Address: [address] [place] [address] Performed By: #### 5 7021-8 ####[facility] LABCLIA [id number] [place] [address] [place] MCHC (RBC) [Mass/Vol] 34.7 g/dL Normal 30.5-36.0 [facility] Comment on above: Order Comment: Speci men Type: BLOOD SPECIMENOrdering Facility: [facility] Address: [address] [place] [address] Performed By: #### 5 7021-8 ####[facility] LABCLIA [id number] [place] [address] [place] MCV (RBC) [Entitic vol] 88.9 fL Normal 80.0-100.0 [facility] Comment on above: Order Comment: Speci men Type: BLOOD SPECIMENOrdering Facility: [facility] Address: [address] [place] [address] Performed By: #### 5 7021-8 ####[facility] LABIA [id number] [place] [address] [place] Monocytes (Bld) [#/Vol] 0.78 10*3/uL Normal <0.87 [facility] Comment on above: Order Comment: Speci men Type: BLOOD SPECIMENOrdering Facility: [facility] Address: [address] [place] [address] Performed By: #### 5 7021-8 ####[facility] LABCLIA [id number] [place] [address] [place] Monocytes/100 WBC (Bld) 8.1 % Normal [facility] Comment on above: Order Comment: Speci men Type: BLOOD SPECIMENOrdering Facility: [facility] Address: [address] [place] [address] Performed By: #### 5 7021-8 ####[facility] LABCLIA [id number] [place] [address] [place] Neutrophils (Bld) [#/Vol] 8.20 10*3/uL High 1.45-7.50 [facility] Comment on above: Order Comment: Speci men Type: BLOOD SPECIMENOrdering Facility: [facility] Address: [address] [place] [address] Performed By: #### 5 7021-8 ####[facility] LABCLIA [id number] [place] [address] [place] Neutrophils/100 WBC (Bld) 85.4 % Normal [facility] Comment on above: Order Comment: Speci men Type: BLOOD SPECIMENOrdering Facility: [facility] Address: [address] [place] [address] Performed By: #### 5 7021-8 ####[facility] LABCLIA [id number] [place] [address] [place] Nucleated RBC (Bld) [#/Vol] 10*3/uL Normal <0.01 [facility] Comment on above: Order Comment: Speci men Type: BLOOD SPECIMENOrdering Facility: [facility] Address: [address] [place] [address] Performed By: #### 5 7021-8 ####[facility] LABCLIA [id number] [place] [address] [place] Nucleated RBC/100 WBC (Bld) [Ratio] 0.0 /100 WBC Normal [facility] Comment on above: Order Comment: Speci men Type: BLOOD SPECIMENOrdering Facility: [facility] Address: [address] [place] [address] Performed By: #### 5 7021-8 ####[facility] LABCLIA [id number] [place] [address] [place] Platelet mean volume (Bld) [Entitic vol] 9.6 fL Normal 9.0-12.7 [facility] Comment on above: Order Comment: Speci men Type: BLOOD SPECIMENOrdering Facility: [facility] Address: [address] [place] [address] Performed By: #### 5 7021-8 ####[facility] LABCLIA [id number] [place] [address] [place] Platelets (Bld) [#/Vol] 167 10*3/uL Normal 150-400 [facility] Comment on above: Order Comment: Speci men Type: BLOOD SPECIMENOrdering Facility: [facility] Address: [address] [place] [address] Performed By: #### 5 7021-8 ####[facility] LABIA [id number] [place] [address] [place] RBC (Bld) [#/Vol] 4.77 10*6/uL Normal 4.20-6.00 [facility] Comment on above: Order Comment: Speci men Type: BLOOD SPECIMENOrdering Facility: [facility] Address: [address] [place] [address] Performed By: #### 5 7021-8 ####[facility] LABIA [id number] [place] [address] [place] WBC (Bld) [#/Vol] 9.61 10*3/uL Normal 3.70-11.00 [facility] Comment on above: Order Comment: Speci men Type: BLOOD SPECIMENOrdering Facility: [facility] Address: [address] [place] [address] Performed By: #### 5 7021-8 ####[facility] LABIA [id number] [place] [address] [place] CONSULTon 06-06-2024 CONSULT Normal [facility] Magnesium SerPl-mCncon 06-06 Magnesium [Mass/Vol] 1.5 mg/dL Low 1.7-2.3 [facility] Comment on above: Order Comment: Speci men Type: BLOOD SPECIMENOrdering Facility: [facility] Address: [address] [place] [address] Performed By: #### 2 4321-2, 90185-9, 2777-1 ####[facility] LABCLIA [id number] [place] [id number] [facility] [place] NURSING PROGon 06-06-2024 NURSING PROG Normal [facility] OPERATIVE NOon 06-06-2024 OPERATIVE NO Normal [facility] Phosphate SerPl-mCncon 06-06 Phosphate [Mass/Vol] 2.4 mg/dL Low 2.7-4.8 [facility] Comment on above: Order Comment: Speci men Type: BLOOD SPECIMENOrdering Facility: [facility] Address: [address] [place] [address] Performed By: #### 2 4321-2, 26462-5, 2777-1 ####[facility] LABCLIA [id number] [place] [id number] [place] SURGICAL PATHOLOGYon 024 CASE REPORT Normal [facility] Comment on above: Order Comment: Speci men Type: TISSUE SPECIMENOrdering Facility: [facility] Address: [address] [place] [address] Result Comment: Surg ical Pathology Report Case: [id number] Provider: Kunal Funes MD Collected: 06/06/2024 02:29 PMOrdering Location: Admitting Received: 06/06/2024 03:39 PMPathologist: Lamonte Clark PSpecimen: Soft Tissue, Mass, Resection, Abdominal wall mass Performed By: #### S ####[facility] LABCLIA [id number] [place] [address] [place] CLINICAL HISTORY Normal [facility] Comment on above: Order Comment: Speci men Type: TISSUE SPECIMENOrdering Facility: [facility] Address: [address] [place] [address] Result Comment: Pre- op diagnosis:Small bowel obstruction (HCC) [K56.609] Performed By: #### S ####[facility] LABCLIA [id number] [address] [place] FINAL DIAGNOSIS Normal [facility] Comment on above: Order Comment: Speci men Type: TISSUE SPECIMENOrdering Facility: [facility] Address: [address] [place] [address] Result Comment: A. 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 Performed By: #### S ####[facility] LABCLIA [id number] [address] [place] FINAL PERFORMING LAB Normal [facility] Comment on above: Order Comment: Speci men Type: TISSUE SPECIMENOrdering Facility: [facility] Address: [address] [place] [address] Result Comment: Diag nostic interpretation performed at [facility], [address] [place] [address] CLIA# [id number] Director: Praveen Patel M.D. Performed By: #### S ####[facility] LABCLIA [id number] [address] [place] GROSS DESCRIPTION Normal [facility] Comment on above: Order Comment: Speci men Type: TISSUE SPECIMENOrdering Facility: [facility] Address: [address] [place] [address] Result Comment: A. S oft Tissue, Mass, ResectionReceived in formalin labeled as abdominal wall mass is a segment of calcified tissue measuring 5.0 x 1.0 x 1.0 cm. Sectioning reveals unremarkable cut surfaces. [employer] sections are submitted in formalin in 1 cassette, following decalcification in formic acid.Gross examination performed at [facility], [address] [place] [address] CLIA# [id number] June 07, 2024 8:14 AM Performed By: #### S ####[facility] LABCLIA [id number] [place] [address] [place] Tacrolimus Bld-ncon 2023 Tacrolimus (Bld) [Mass/Vol] 4.1 ng/mL Low 5.0-20.0 [facility] Comment on above: Order Comment: Speci men Type: BLOOD SPECIMENOrdering Facility: [facility] Address: [address] [place] [address] Result Comment: Noreen vidualized target levels for [...] Alinity i. Performed By: #### 1 1253-2 ####[facility] LABIA [id number] [place] [address] [place] XR CHEST 1V FRONTAL PORTon 1 08-07-2023 XR CHEST 1V FRONTAL PORT Normal [facility] Basic metabolic 2000 panelon 06-05-2024 Anion gap [Moles/Vol] 12 mmol/L Normal 8-15 [facility] Comment on above: Order Comment: Speci men Type: BLOOD SPECIMENOrdering Facility: [facility] Address: [address] [place] [address] Performed By: #### 2 777-1, 40836-5, 16079-4 ####[facility] LABIA [id number] [place] [address] [place] Calcium [Mass/Vol] 9.0 mg/dL Normal 8.5-10.2 [facility] Comment on above: Order Comment: Speci men Type: BLOOD SPECIMENOrdering Facility: [facility] Address: [address] [place], [place] [address] Performed By: #### 2 777-1, , ####[facility] LABCLIA [id number] [facility] [place] [id number] [place] Chloride [Moles/Vol] 103 mmol/L Normal 98-107 [facility] [facility] Comment on above: Order Comment: Speci men Type: BLOOD SPECIMENOrdering Facility: [facility] Address: [address] [place] [address] Performed By: #### 2 777-1, , ####[facility]CLIA [id number] [place] [address] [place] CO2 [Moles/Vol] 22 mmol/L Normal 22-30 [facility] [place] Comment on above: Order Comment: Speci men Type: BLOOD SPECIMENOrdering Facility: [facility] Address: [address] [place] [address] Performed By: #### 2 777-1, , ####[facility]CL[facility] [id number] [place] [address] [place] Creatinine [Mass/Vol] 0.87 mg/dL Normal 0.73-1.22 [facility] Comment on above: Order Comment: Speci men Type: BLOOD SPECIMENOrdering Facility: [facility] Address: [address] [place] [address] Performed By: #### 2 777-1, , ####[facility]CL[facility] [id number] [address] [address] [place] Creatinine and Glomerular filtration rate.predicted panel (S/P/Bld) 92 mL/min/1.73m??? Normal >=60 [facility] [place] Comment on above: Order Comment: Allegra donis Type: BLOOD SPECIMENOrdering Facility: [facility] Address: [address] [place] [address] Result Comment: Stephanie mated Glomerular Filtration Rate (eGFR) is calculated using the 2020 CKD-EPI creatinine equation. This equation utilizes serum creatinine, sex, and age as parameters. The creatinine assay has traceable calibration to isotope dilution-mass spectrometry. Refer to KDIGO guidelines for clinical interpretation. In patients with unstable renal function, e.g. those with acute kidney injury, the eGFR may not accurately reflect actual GFR. Performed By: #### 2 777-1, , 29461-8 ####[facility] [id number] [place] [address] [place] Glucose [Mass/Vol] 114 mg/dL High 74-99 [facility] Comment on above: Order Comment: Allegra donis Type: BLOOD SPECIMENOrdering Facility: [facility] Address: [address] [place] [address] Result Comment: The [place] Diabetes [employer] (ADA) provides guidance for cutoff values for fasting glucose and random glucose. The ADA defines fasting as no caloric intake for at least 8 hours. Fasting plasma glucose results between 100 to 125 mg/dL indicate increased risk for diabetes (prediabetes).Fasting plasma glucose results greater than or equal to 126 mg/dL meet the criteria for diagnosis of diabetes. In the absence of unequivocal hyperglycemia, results should be confirmed by repeat testing. In a patient with classic symptoms of hyperglycemia or hyperglycemic crisis, random plasma glucose results greater than or equal to 200 mg/dL meet the criteria for diagnosis of diabetes.Reference: Standards of Medical Care in Diabetes 2016, [place] [employer]. Diabetes Care. 2016.39(Suppl 1). Performed By: #### 2 777-1, , 42927-1 ####[facility] LABIA [id number] [place] [address] [place] Potassium [Moles/Vol] 4.2 mmol/L Normal 3.7-5.1 [facility] Comment on above: Order Comment: Speci men Type: BLOOD SPECIMENOrdering Facility: [facility] Address: [address] [place] [address] Performed By: #### 2 777-1, , ####[facility] [id number] [place] [address] [place] Sodium [Moles/Vol] 137 mmol/L Normal 136-144 [facility] Comment on above: Order Comment: Speci men Type: BLOOD SPECIMENOrdering Facility: [facility] Address: [address] [place] [address] Performed By: #### 2 777-1, , ####[facility]CL[facility] [id number] [place] [address] [place] Urea nitrogen [Mass/Vol] 19 mg/dL Normal 9-24 [facility] [place] Comment on above: Order Comment: Speci men Type: BLOOD SPECIMENOrdering Facility: [facility] Address: [address] [place] [address] Performed By: #### 2 777-1, , ####[facility] LABIA [id number] [place] [address] [place] CBC W Auto Differential pane l (Bld)on 06-05-2024 Basophils (Bld) [#/Vol] 0.05 10*3/uL Normal <0.11 [facility] [place] Comment on above: Order Comment: Speci men Type: BLOOD SPECIMENOrdering Facility: [facility] Address: [address] [place] [address] Performed By: #### 5 7021-8 ####[facility] LABIA [id number] [place] [address] [place] Basophils/100 WBC (Bld) 0.4 % Normal [facility] Comment on above: Order Comment: Speci men Type: BLOOD SPECIMENOrdering Facility: [facility] Address: [address] [place] [address] Performed By: #### 5 7021-8 ####[facility]CLIA [id number] [place] [address] [place] Differential cell count method Nom (Bld) Auto Normal [facility] [place] Comment on above: Order Comment: Speci men Type: BLOOD SPECIMENOrdering Facility: [facility] Address: [address] [place] [address] Performed By: #### 5 7021-8 ####[facility]CL[facility] [id number] [place] [address] [place] Eosinophils (Bld) [#/Vol] 0.17 10*3/uL Normal <0.46 [facility] [place] Comment on above: Order Comment: Speci men Type: BLOOD SPECIMENOrdering Facility: [facility] Address: [address] [place] [address] Performed By: #### 5 7021-8 ####[facility]CL[facility] [id number] [place] [address] [place] Eosinophils/100 WBC (Bld) 1.5 % Normal [facility] [place] Comment on above: Order Comment: Speci men Type: BLOOD SPECIMENOrdering Facility: [facility] Address: [address] [place] [address] Performed By: #### 5 7021-8 ####[facility]CLIA [id number] [place] [address] [place] Erythrocyte distribution width (RBC) [Ratio] 13.7 % Normal 11.5-15.0 [facility] [place] Comment on above: Order Comment: Speci men Type: BLOOD SPECIMENOrdering Facility: [facility] Address: [address] [place] [address] Performed By: #### 5 7021-8 ####[facility]CLIA [id number] [place] [address] [place] Hematocrit (Bld) [Volume fraction] 43.4 % Normal 39.0-51.0 [facility] [place] Comment on above: Order Comment: Speci men Type: BLOOD SPECIMENOrdering Facility: [facility] Address: [address] [place] [address] Performed By: #### 5 7021-8 ####[facility]CL[facility] [id number] [place] [address] [place] Hemoglobin (Bld) [Mass/Vol] 15.0 g/dL Normal 13.0-17.0 [facility] [place] Comment on above: Order Comment: Speci men Type: BLOOD SPECIMENOrdering Facility: [facility] Address: [address] [place] [address] Performed By: #### 5 7021-8 ####[facility]CL[facility] [id number] [place] [address] [place] Immature granulocytes (Bld) [#/Vol] 0.03 10*3/uL Normal <0.10 [facility] [place] Comment on above: Order Comment: Speci men Type: BLOOD SPECIMENOrdering Facility: [facility] Address: [address] [place] [address] Performed By: #### 5 7021-8 ####[facility]CL[facility] [id number] [place] [address] [place] Immature granulocytes/100 WBC (Bld) 0.3 % Normal [facility] [place] Comment on above: Order Comment: Speci men Type: BLOOD SPECIMENOrdering Facility: [facility] Address: [address] [place] [address] Performed By: #### 5 7021-8 ####[facility]CL[facility] [id number] [place] [address] [place] Lymphocytes (Bld) [#/Vol] 0.44 10*3/uL Low 1.00-4.00 [facility] [place] Comment on above: Order Comment: Speci men Type: BLOOD SPECIMENOrdering Facility: [facility] Address: [address] [place] [address] Performed By: #### 5 7021-8 ####[facility] LABIA [id number] [place] [address] [place] Lymphocytes/100 WBC (Bld) 3.8 % Normal [facility] [place] Comment on above: Order Comment: Speci men Type: BLOOD SPECIMENOrdering Facility: [facility] Address: [address] [place] [address] Performed By: #### 5 7021-8 ####[facility] LABIA [id number] [place] [address] [place] MCH (RBC) [Entitic mass] 30.8 pg Normal 26.0-34.0 [facility] [place] Comment on above: Order Comment: Speci men Type: BLOOD SPECIMENOrdering Facility: [facility] Address: [address] [place] [address] Performed By: #### 5 7021-8 ####[facility] LABIA [id number] [place] [address] [place] MCHC (RBC) [Mass/Vol] 34.6 g/dL Normal 30.5-36.0 [facility] Comment on above: Order Comment: Speci men Type: BLOOD SPECIMENOrdering Facility: [facility] Address: [address] [place] [address] Performed By: #### 5 7021-8 ####[facility] LABIA [id number] [place] [address] [place] MCV (RBC) [Entitic vol] 89.1 fL Normal 80.0-100.0 [facility] Comment on above: Order Comment: Speci men Type: BLOOD SPECIMENOrdering Facility: [facility] Address: [address] [place] [address] Performed By: #### 5 7021-8 ####[facility]CLIA [id number] [place] [address] [place] Monocytes (Bld) [#/Vol] 0.89 10*3/uL High <0.87 [facility] [place] Comment on above: Order Comment: Speci men Type: BLOOD SPECIMENOrdering Facility: [facility] Address: [address] [place] [address] Performed By: #### 5 7021-8 ####[facility]CLIA [id number] [place] [address] [place] Monocytes/100 WBC (Bld) 7.6 % Normal [facility] Comment on above: Order Comment: Speci men Type: BLOOD SPECIMENOrdering Facility: [facility] Address: [address] [place] [address] Performed By: #### 5 7021-8 ####[facility]CLIA [id number] [place] [address] [place] Neutrophils (Bld) [#/Vol] 10.07 10*3/uL High 1.45-7.50 [facility] [place] Comment on above: Order Comment: Speci men Type: BLOOD SPECIMENOrdering Facility: [facility] Address: [address] [place] [address] Performed By: #### 5 7021-8 ####[facility]CLIA [id number] [place] [address] [place] Neutrophils/100 WBC (Bld) 86.4 % Normal [facility] [place] Comment on above: Order Comment: Speci men Type: BLOOD SPECIMENOrdering Facility: [facility] Address: [address] [place] [address] Performed By: #### 5 7021-8 ####[facility]CLIA [id number] [place] [address] [place] Nucleated RBC (Bld) [#/Vol] 10*3/uL Normal <0.01 [facility] [place] Comment on above: Order Comment: Speci men Type: BLOOD SPECIMENOrdering Facility: [facility] Address: [address] [place] [address] Performed By: #### 5 7021-8 ####[facility] [id number] [place] [address] [place] Nucleated RBC/100 WBC (Bld) [Ratio] 0.0 /100 WBC Normal [facility] Comment on above: Order Comment: Speci men Type: BLOOD SPECIMENOrdering Facility: [facility] Address: [address] [place] [address] Performed By: #### 5 7021-8 ####[facility] [id number] [place] [address] [place] Platelet mean volume (Bld) [Entitic vol] 9.6 fL Normal 9.0-12.7 [facility] [place] Comment on above: Order Comment: Speci men Type: BLOOD SPECIMENOrdering Facility: [facility] Address: [address] [place] [address] Performed By: #### 5 7021-8 ####[facility] [id number] [place] [address] [place] Platelets (Bld) [#/Vol] 195 10*3/uL Normal 150-400 [facility] Comment on above: Order Comment: Speci men Type: BLOOD SPECIMENOrdering Facility: [facility] Address: [address] [place] [address] Performed By: #### 5 7021-8 ####[facility] LABIA [id number] [place] [address] [place] RBC (Bld) [#/Vol] 4.87 10*6/uL Normal 4.20-6.00 [facility] Comment on above: Order Comment: Speci men Type: BLOOD SPECIMENOrdering Facility: [facility] Address: [address] [place] [address] Performed By: #### 5 7021-8 ####[facility] LABCLIA [id number] [place] [id number] [place] WBC (Bld) [#/Vol] 11.65 10*3/uL High 3.70-11.00 [facility] Comment on above: Order Comment: Speci men Type: BLOOD SPECIMENOrdering Facility: [facility] Address: [address] [place] [address] Performed By: #### 5 7021-8 ####[facility] LABIA [id number] [place] [address] [place] Magnesium SerPl-ncon 06-05 Magnesium [Mass/Vol] 1.6 mg/dL Low 1.7-2.3 [facility] Comment on above: Order Comment: Speci men Type: BLOOD SPECIMENOrdering Facility: [facility] Address: [address] [place] [address] Performed By: #### 2 777-1, 71442-9, 97821-2 ####[facility] LABIA [id number] [place] [address] [place] NUTRITIONon 06-05-2024 NUTRITION Normal [facility] Phosphate SerPl-mCncon 06-05 Phosphate [Mass/Vol] 2.5 mg/dL Low 2.7-4.8 [facility] Comment on above: Order Comment: Speci men Type: BLOOD SPECIMENOrdering Facility: [facility] Address: [address] [place] [address] Performed By: #### 2 777-1, 29184-0, 10205-2 ####[facility] LABIA [id number] [place] [id number] [place] Tacrolimus Bld-mCncon 2023 Tacrolimus (Bld) [Mass/Vol] 4.1 ng/mL Low 5.0-20.0 [facility] Comment on above: Order Comment: Speci men Type: BLOOD SPECIMENOrdering Facility: [facility] Address: [address] [place] [address] Result Comment: Noreen vidualized target levels for [...] situation. Test performed by chemiluminescent immunoassay using [employer] i. Performed By: #### 1 1253-2 ####[facility]CLIA [id number] [place] [address] [place] Basic metabolic 2000 panelon 06-04-2024 Anion gap [Moles/Vol] 16 mmol/L High 8-15 [facility] Comment on above: Order Comment: Allegra donis Type: BLOOD SPECIMENOrdering Facility: [facility] Address: [address] [place] [address] Performed By: #### 1 988-5, 42608-4, 28643-8, 2777-1 ####[facility] LABIA [id number] [place] [address] [place] Calcium [Mass/Vol] 9.1 mg/dL Normal 8.5-10.2 [facility] Comment on above: Order Comment: Allegra donis Type: BLOOD SPECIMENOrdering Facility: [facility] Address: [address] [place] [address] Performed By: #### 1 988-5, 12652-1, 41248-7, 2777-1 ####[facility]CL[facility] [id number] [place] [address] [place] Chloride [Moles/Vol] 105 mmol/L Normal 98-107 [facility] Comment on above: Order Comment: Hernáni jewels Type: BLOOD SPECIMENOrdering Facility: [facility] Address: [address] [place] [address] Performed By: #### 1 988-5, 08650-3, 52458-1, 2776- ####[facility] LABIA [id number] [place] [id number] [place] CO2 [Moles/Vol] 20 mmol/L Low 22-30 [facility] Comment on above: Order Comment: Speci men Type: BLOOD SPECIMENOrdering Facility: [facility] Address: [address] [place], [place] [address] Performed By: #### 1 988-5, 42411-8, 34299-2, 2776- ####[facility] [id number] [place] [address] [place] Creatinine [Mass/Vol] 0.90 mg/dL Normal 0.73-1.22 [facility] Comment on above: Order Comment: Speci men Type: BLOOD SPECIMENOrdering Facility: [facility] Address: [address] [place] [address] Performed By: #### 1 988-5, 42051-8, 84998-5, 2776-06 ####[facility] [id number] [place] [address] [place] Creatinine and Glomerular filtration rate.predicted panel (S/P/Bld) 91 mL/min/1.73m??? Normal >=60 [facility] Comment on above: Order Comment: Speci men Type: BLOOD SPECIMENOrdering Facility: [facility] Address: [address] [place], [place] [address] Result Comment: Stephanie mated Glomerular Filtration Rate (eGFR) is calculated using the 2020 CKD-EPI creatinine equation. This equation utilizes serum creatinine, sex, and age as parameters. The creatinine assay has traceable calibration to isotope dilution-mass spectrometry. Refer to KDIGO guidelines for clinical interpretation. In patients with unstable renal function, e.g. those with acute kidney injury, the eGFR may not accurately reflect actual GFR. Performed By: #### 1 988-5, 68860-7, 04649-0, 2776-1 ####[facility]CLIA [id number] [place] [id number] [place] Glucose [Mass/Vol] 116 mg/dL High 74-99 [facility] Comment on above: Order Comment: Speci men Type: BLOOD SPECIMENOrdering Facility: [facility] Address: [address] [place] [address] Result Comment: The [place] Diabetes [employer] (ADA) provides guidance for cutoff values for fasting glucose and random glucose. The ADA defines fasting as no caloric intake for at least 8 hours. Fasting plasma glucose results between 100 to 125 mg/dL indicate increased risk for diabetes (prediabetes).Fasting plasma glucose results greater than or equal to 126 mg/dL meet the criteria for diagnosis of diabetes. In the absence of unequivocal hyperglycemia, results should be confirmed by repeat testing. In a patient with classic symptoms of hyperglycemia or hyperglycemic crisis, random plasma glucose results greater than or equal to 200 mg/dL meet the criteria for diagnosis of diabetes.Reference: Standards of Medical Care in Diabetes 2016, [place] [employer]. Diabetes Care. 2016.39(Suppl 1). Performed By: #### 1 988-5, 33546-6, 21717-4, 2777-1 ####[facility] LABIA [id number] [place] [address] [place] Potassium [Moles/Vol] 4.3 mmol/L Normal 3.7-5.1 [facility] Comment on above: Order Comment: Speci men Type: BLOOD SPECIMENOrdering Facility: [facility] Address: [address] [place] [address] Performed By: #### 1 988-5, 17529-5, 29500-3, 2777-1 ####[facility]IA [id number] [place] [address] [place] Sodium [Moles/Vol] 141 mmol/L Normal 136-144 [facility] Comment on above: Order Comment: Speci men Type: BLOOD SPECIMENOrdering Facility: [facility] Address: [address] [place] [address] Performed By: #### 1 988-5, 99882-5, 24770-7, 2777-1 ####[facility]CL[facility] [id number] [place] [address] [place] Urea nitrogen [Mass/Vol] 19 mg/dL Normal 9-24 [facility] Comment on above: Order Comment: Speci men Type: BLOOD SPECIMENOrdering Facility: [facility] Address: [address] [place] [address] Performed By: #### 1 988-5, 02549-3, 10461-7, 2777-1 ####[facility]CL[facility] [id number] [place] [address] [place] CBC W Auto Differential pane l (Bld)on 06-04-2024 Basophils (Bld) [#/Vol] 0.05 10*3/uL Normal <0.11 [facility] Comment on above: Order Comment: Speci men Type: BLOOD SPECIMENOrdering Facility: [facility] Address: [address] [place] [address] Performed By: #### 5 7021-8 ####[facility]CL[facility] [id number] [place] [address] [place] Basophils/100 WBC (Bld) 0.5 % Normal [facility] Comment on above: Order Comment: Speci men Type: BLOOD SPECIMENOrdering Facility: [facility] Address: [address] [place] [address] Performed By: #### 5 7021-8 ####[facility] [id number] [place] [address] [place] Differential cell count method Nom (Bld) Auto Normal [facility] Comment on above: Order Comment: Speci men Type: BLOOD SPECIMENOrdering Facility: [facility] Address: [address] [place] [address] Performed By: #### 5 7021-8 ####[facility] [id number] [place] [address] [place] Eosinophils (Bld) [#/Vol] 0.09 10*3/uL Normal <0.46 [facility] Comment on above: Order Comment: Speci men Type: BLOOD SPECIMENOrdering Facility: [facility] Address: [address] [place] [address] Performed By: #### 5 7021-8 ####[facility]CL[facility] [id number] [place] [address] [place] Eosinophils/100 WBC (Bld) 0.8 % Normal [facility] Comment on above: Order Comment: Speci men Type: BLOOD SPECIMENOrdering Facility: [facility] Address: [address] [place] [address] Performed By: #### 5 7021-8 ####[facility]CL[facility] [id number] [place] [address] [place] Erythrocyte distribution width (RBC) [Ratio] 13.6 % Normal 11.5-15.0 [facility] Comment on above: Order Comment: Speci men Type: BLOOD SPECIMENOrdering Facility: [facility] Address: [address] [place] [address] Performed By: #### 5 7021-8 ####[facility] [id number] [place] [address] [place] Hematocrit (Bld) [Volume fraction] 46.5 % Normal 39.0-51.0 [facility] Comment on above: Order Comment: Speci men Type: BLOOD SPECIMENOrdering Facility: [facility] Address: [address] [place] [address] Performed By: #### 5 7021-8 ####[facility] [id number] [place] [address] [place] Hemoglobin (Bld) [Mass/Vol] 15.5 g/dL Normal 13.0-17.0 [facility] Comment on above: Order Comment: Speci men Type: BLOOD SPECIMENOrdering Facility: [facility] Address: [address] [place] [address] Performed By: #### 5 7021-8 ####[facility] [id number] [place] [address] [place] Immature granulocytes (Bld) [#/Vol] 0.06 10*3/uL Normal <0.10 [facility] Comment on above: Order Comment: Speci men Type: BLOOD SPECIMENOrdering Facility: [facility] Address: [address] [place] [address] Performed By: #### 5 7021-8 ####[facility] [id number] [place] [address] [place] Immature granulocytes/100 WBC (Bld) 0.6 % Normal [facility] Comment on above: Order Comment: Speci men Type: BLOOD SPECIMENOrdering Facility: [facility] Address: [address] [place] [address] Performed By: #### 5 7021-8 ####[facility] [id number] [place] [address] [place] Lymphocytes (Bld) [#/Vol] 0.34 10*3/uL Low 1.00-4.00 [facility] Comment on above: Order Comment: Speci men Type: BLOOD SPECIMENOrdering Facility: [facility] Address: [address] [place] [address] Performed By: #### 5 7021-8 ####[facility] [id number] [place] [address] [place] Lymphocytes/100 WBC (Bld) 3.2 % Normal [facility] Comment on above: Order Comment: Speci men Type: BLOOD SPECIMENOrdering Facility: [facility] Address: [address] [place] [address] Performed By: #### 5 7021-8 ####[facility] [id number] [place] [address] [place] MCH (RBC) [Entitic mass] 30.1 pg Normal 26.0-34.0 [facility] [place] Comment on above: Order Comment: Speci men Type: BLOOD SPECIMENOrdering Facility: [facility] Address: [address] [place] [address] Performed By: #### 5 7021-8 ####[facility] LABIA [id number] [place] [address] [place] MCHC (RBC) [Mass/Vol] 33.3 g/dL Normal 30.5-36.0 [facility] Comment on above: Order Comment: Speci men Type: BLOOD SPECIMENOrdering Facility: [facility] Address: [address] [place] [address] Performed By: #### 5 7021-8 ####[facility] [id number] [place] [address] [place] MCV (RBC) [Entitic vol] 90.3 fL Normal 80.0-100.0 [facility] [place] Comment on above: Order Comment: Speci men Type: BLOOD SPECIMENOrdering Facility: [facility] Address: [address] [place] [address] Performed By: #### 5 7021-8 ####[facility] [id number] [place] [address] [place] Monocytes (Bld) [#/Vol] 0.60 10*3/uL Normal <0.87 [facility] [place] Comment on above: Order Comment: Speci men Type: BLOOD SPECIMENOrdering Facility: [facility] Address: [address] [place] [address] Performed By: #### 5 7021-8 ####[facility] LABIA [id number] [address] [place] Monocytes/100 WBC (Bld) 5.6 % Normal [facility] Comment on above: Order Comment: Speci men Type: BLOOD SPECIMENOrdering Facility: [facility] Address: [address] [place] [address] Performed By: #### 5 7021-8 ####[facility] LABCLIA [id number] [place] [address] [place] Neutrophils (Bld) [#/Vol] 9.52 10*3/uL High 1.45-7.50 [facility] [place] Comment on above: Order Comment: Speci men Type: BLOOD SPECIMENOrdering Facility: [facility] Address: [address] [place] [address] Performed By: #### 5 7021-8 ####[facility] LABCLIA [id number] [place] [address] [place] Neutrophils/100 WBC (Bld) 89.3 % Normal [facility] [place] Comment on above: Order Comment: Speci men Type: BLOOD SPECIMENOrdering Facility: [facility] Address: [address] [place] [address] Performed By: #### 5 7021-8 ####[facility] LABCLIA [id number] [place] [address] [place] Nucleated RBC (Bld) [#/Vol] 10*3/uL Normal <0.01 [facility] [place] Comment on above: Order Comment: Speci men Type: BLOOD SPECIMENOrdering Facility: [facility] Address: [address] [place] [address] Performed By: #### 5 7021-8 ####[facility] LABCLIA [id number] [place] [address] [place] Nucleated RBC/100 WBC (Bld) [Ratio] 0.0 /100 WBC Normal [facility] [place] Comment on above: Order Comment: Speci men Type: BLOOD SPECIMENOrdering Facility: [facility] Address: [address] [place] [address] Performed By: #### 5 7021-8 ####[facility] LABCLIA [id number] [address] [address] [place] Platelet mean volume (Bld) [Entitic vol] 9.6 fL Normal 9.0-12.7 [facility] [place] Comment on above: Order Comment: Speci men Type: BLOOD SPECIMENOrdering Facility: [facility] Address: [address] [place] [address] Performed By: #### 5 7021-8 ####[facility] LABCLIA [id number] [place] [address] [place] Platelets (Bld) [#/Vol] 187 10*3/uL Normal 150-400 [facility] [place] Comment on above: Order Comment: Speci men Type: BLOOD SPECIMENOrdering Facility: [facility] Address: [address] [place] [address] Performed By: #### 5 7021-8 ####[facility] [id number] [place] [address] [place] RBC (Bld) [#/Vol] 5.15 10*6/uL Normal 4.20-6.00 [facility] Comment on above: Order Comment: Speci men Type: BLOOD SPECIMENOrdering Facility: [facility] Address: [address] [place] [address] Performed By: #### 5 7021-8 ####[facility] LABIA [id number] [place] [id number] [place] WBC (Bld) [#/Vol] 10.66 10*3/uL Normal 3.70-11.00 [facility] Comment on above: Order Comment: Speci men Type: BLOOD SPECIMENOrdering Facility: [facility] Address: [address] [place] [address] Performed By: #### 5 7021-8 ####[facility]IA [id number] [place] [id number] [place] CRP SerPl-mCncon 06-04-2024 CRP [Mass/Vol] 0.8 mg/dL Normal <0.9 [facility] [place] Comment on above: Order Comment: Speci men Type: BLOOD SPECIMENOrdering Facility: [facility] Address: [address] [place], [place] [address] Performed By: #### 1 988-5, 47153-3, 22259-7, 2777-1 ####[facility] [id number] [place] [id number] [place] Lactate (Bld) [Moles/Vol]on 06-04-2024 Lactate [Moles/Vol] 1.4 mmol/L Normal 0.5-2.2 [facility] Comment on above: Order Comment: Speci men Type: BLOOD SPECIMENOrdering Facility: [facility] Address: [address] [place] [address] Performed By: #### 3 2693-4 ####[facility]IA [id number] [place] [id number] [place] Magnesium SerPl-ncon 06-04 Magnesium [Mass/Vol] 1.7 mg/dL Normal 1.7-2.3 [facility] Comment on above: Order Comment: Speci men Type: BLOOD SPECIMENOrdering Facility: [facility] Address: [address] [place], [place] [address] Performed By: #### 1 988-5, 18746-5, 99212-6, 2777-1 ####[facility]IA [id number] [place] [id number] [place] Phosphate SerPl-mCncon 06-04 Phosphate [Mass/Vol] 3.0 mg/dL Normal 2.7-4.8 [facility] Comment on above: Order Comment: Speci men Type: BLOOD SPECIMENOrdering Facility: [facility] Address: [address] [place] [address] Performed By: #### 1 988-5, 25784-6, 15452-2, 2777-1 ####[facility] LABCLIA [id number] [place] [address] [place] Procalcitonin SerPl-mCncon 1 08-05-2023 Procalcitonin [Mass/Vol] 0.09 ng/mL High <0.09 [facility] [place] Comment on above: Order Comment: Specedmond donis Type: BLOOD SPECIMENOrdering Facility: [facility] Address: [address] [place] [address] Result Comment: For a guided interpretation of test results, please visit the Change in Procalcitonin Calculator, [email or web address]. Performed By: #### 3 3959-8 ####[facility] [id number] [address] STATES OF [facility] Tacrolimus Bld-mCncon 2023 Tacrolimus (Bld) [Mass/Vol] 4.2 ng/mL Low 5.0-20.0 [facility] [place] Comment on above: Order Comment: Allegra donis Type: BLOOD SPECIMENOrdering Facility: [facility] Address: [address] [place] [address] Result Comment: Noreen vidualized target levels for [...] Alinity i. Performed By: #### 1 1253-2 ####[facility]IA [id number] [place] [address] [place] XR ABDOMEN 1V SUPINEon 06-04 XR ABDOMEN 1V SUPINE Normal [facility] CBC W Auto Differential pane l (Bld)on 06-03-2024 Basophils (Bld) [#/Vol] 0.06 10*3/uL Normal <0.11 [facility] [place] Comment on above: Order Comment: Speci men Type: BLOOD SPECIMENOrdering Facility: [facility] Address: [address] [place] [address] Performed By: #### 5 7021-8 ####[facility] LABCLIA [id number] [place] [address] [place] Basophils/100 WBC (Bld) 0.6 % Normal [facility] Comment on above: Order Comment: Speci men Type: BLOOD SPECIMENOrdering Facility: [facility] Address: [address] [place] [address] Performed By: #### 5 7021-8 ####[facility] LABCLIA [id number] [place] [address] [place] Differential cell count method Nom (Bld) Auto Normal [facility] [place] Comment on above: Order Comment: Speci men Type: BLOOD SPECIMENOrdering Facility: [facility] Address: [address] [place] [address] Performed By: #### 5 7021-8 ####[facility] LABCLIA [id number] [place] [address] [place] Eosinophils (Bld) [#/Vol] 0.06 10*3/uL Normal <0.46 [facility] [place] Comment on above: Order Comment: Speci men Type: BLOOD SPECIMENOrdering Facility: [facility] Address: [address] [place] [address] Performed By: #### 5 7021-8 ####[facility] LABCLIA [id number] [place] [address] [place] Eosinophils/100 WBC (Bld) 0.6 % Normal [facility] [place] Comment on above: Order Comment: Speci men Type: BLOOD SPECIMENOrdering Facility: [facility] Address: [address] [place] [address] Performed By: #### 5 7021-8 ####[facility] LABCLIA [id number] [place] [address] [place] Erythrocyte distribution width (RBC) [Ratio] 13.7 % Normal 11.5-15.0 [facility] [place] Comment on above: Order Comment: Speci men Type: BLOOD SPECIMENOrdering Facility: [facility] Address: [address] [place] [address] Performed By: #### 5 7021-8 ####[facility] LABCLIA [id number] [place] [address] [place] Hematocrit (Bld) [Volume fraction] 44.9 % Normal 39.0-51.0 [facility] [place] Comment on above: Order Comment: Speci men Type: BLOOD SPECIMENOrdering Facility: [facility] Address: [address] [place] [address] Performed By: #### 5 7021-8 ####[facility] [id number] [place] [address] [place] Hemoglobin (Bld) [Mass/Vol] 15.2 g/dL Normal 13.0-17.0 [facility] [place] Comment on above: Order Comment: Speci men Type: BLOOD SPECIMENOrdering Facility: [facility] Address: [address] [place] [address] Performed By: #### 5 7021-8 ####[facility] LABCLIA [id number] [place] [address] [place] Immature granulocytes (Bld) [#/Vol] 0.04 10*3/uL Normal <0.10 [facility] [place] Comment on above: Order Comment: Speci men Type: BLOOD SPECIMENOrdering Facility: [facility] Address: [address] [place] [address] Performed By: #### 5 7021-8 ####[facility] [id number] [place] [address] [place] Immature granulocytes/100 WBC (Bld) 0.4 % Normal [facility] [place] Comment on above: Order Comment: Speci men Type: BLOOD SPECIMENOrdering Facility: [facility] Address: [address] [place] [address] Performed By: #### 5 7021-8 ####[facility] LABCLIA [id number] [place] [address] [place] Lymphocytes (Bld) [#/Vol] 0.41 10*3/uL Low 1.00-4.00 [facility] [place] Comment on above: Order Comment: Speci men Type: BLOOD SPECIMENOrdering Facility: [facility] Address: [address] [place] [address] Performed By: #### 5 7021-8 ####[facility] LABCLIA [id number] [place] [address] [place] Lymphocytes/100 WBC (Bld) 3.8 % Normal [facility] [place] Comment on above: Order Comment: Speci men Type: BLOOD SPECIMENOrdering Facility: [facility] Address: [address] [place] [address] Performed By: #### 5 7021-8 ####[facility] LABCLIA [id number] [place] [address] [place] MCH (RBC) [Entitic mass] 29.9 pg Normal 26.0-34.0 [facility] [place] Comment on above: Order Comment: Speci men Type: BLOOD SPECIMENOrdering Facility: [facility] Address: [address] [place] [address] Performed By: #### 5 7021-8 ####[facility] LABCLIA [id number] [place] [address] [place] MCHC (RBC) [Mass/Vol] 33.9 g/dL Normal 30.5-36.0 [facility] Comment on above: Order Comment: Speci men Type: BLOOD SPECIMENOrdering Facility: [facility] Address: [address] [place] [address] Performed By: #### 5 7021-8 ####[facility] [id number] [place] [address] [place] MCV (RBC) [Entitic vol] 88.2 fL Normal 80.0-100.0 [facility] Comment on above: Order Comment: Speci men Type: BLOOD SPECIMENOrdering Facility: [facility] Address: [address] [place] [address] Performed By: #### 5 7021-8 ####[facility] [id number] [place] [address] [place] Monocytes (Bld) [#/Vol] 0.56 10*3/uL Normal <0.87 [facility] [place] Comment on above: Order Comment: Speci men Type: BLOOD SPECIMENOrdering Facility: [facility] Address: [address] [place] [address] Performed By: #### 5 7021-8 ####[facility]IA [id number] [place] [address] [place] Monocytes/100 WBC (Bld) 5.2 % Normal [facility] Comment on above: Order Comment: Speci men Type: BLOOD SPECIMENOrdering Facility: [facility] Address: [address] [place] [address] Performed By: #### 5 7021-8 ####[facility] LABCLIA [id number] [place] [address] [place] Neutrophils (Bld) [#/Vol] 9.61 10*3/uL High 1.45-7.50 [facility] [place] Comment on above: Order Comment: Speci men Type: BLOOD SPECIMENOrdering Facility: [facility] Address: [address] [place] [address] Performed By: #### 5 7021-8 ####[facility] LABCLIA [id number] [place] [address] [place] Neutrophils/100 WBC (Bld) 89.4 % Normal [facility] [place] Comment on above: Order Comment: Speci men Type: BLOOD SPECIMENOrdering Facility: [facility] Address: [address] [place] [address] Performed By: #### 5 7021-8 ####[facility] LABCLIA [id number] [place] [address] [place] Nucleated RBC (Bld) [#/Vol] 10*3/uL Normal <0.01 [facility] [place] Comment on above: Order Comment: Speci men Type: BLOOD SPECIMENOrdering Facility: [facility] Address: [address] [place] [address] Performed By: #### 5 7021-8 ####[facility] LABCLIA [id number] [place] [address] [place] Nucleated RBC/100 WBC (Bld) [Ratio] 0.0 /100 WBC Normal [facility] [place] Comment on above: Order Comment: Speci men Type: BLOOD SPECIMENOrdering Facility: [facility] Address: [address] [place] [address] Performed By: #### 5 7021-8 ####[facility] LABCLIA [id number] [place] [address] [place] Platelet mean volume (Bld) [Entitic vol] 9.5 fL Normal 9.0-12.7 [facility] [place] Comment on above: Order Comment: Speci men Type: BLOOD SPECIMENOrdering Facility: [facility] Address: [address] [place] [address] Performed By: #### 5 7021-8 ####[facility] LABCLIA [id number] [place] [address] [place] Platelets (Bld) [#/Vol] 194 10*3/uL Normal 150-400 [facility] [place] Comment on above: Order Comment: Speci men Type: BLOOD SPECIMENOrdering Facility: [facility] Address: [address] [place] [address] Performed By: #### 5 7021-8 ####[facility] [id number] [place] [address] [place] RBC (Bld) [#/Vol] 5.09 10*6/uL Normal 4.20-6.00 [facility] Comment on above: Order Comment: Speci men Type: BLOOD SPECIMENOrdering Facility: [facility] Address: [address] [place] [address] Performed By: #### 5 7021-8 ####[facility] [id number] [place] [address] [place] WBC (Bld) [#/Vol] 10.74 10*3/uL Normal 3.70-11.00 [facility] Comment on above: Order Comment: Speci men Type: BLOOD SPECIMENOrdering Facility: [facility] Address: [address] [place] [address] Performed By: #### 5 7021-8 ####[facility] [id number] [place] [address] [place] CRP SerPl-mCncon 06-03-2024 CRP [Mass/Vol] 0.5 mg/dL Normal <0.9 [facility] [place] Comment on above: Order Comment: Speci men Type: BLOOD SPECIMENOrdering Facility: [facility] Address: [address] [place] [address] Performed By: #### 1 988-5, 34164-5 ####[facility] [id number] [place] [address] [place] Comprehensive metabolic 2000 panelon 06-03-2024 Albumin [Mass/Vol] 4.2 g/dL Normal 3.9-4.9 [facility] Comment on above: Order Comment: Speci men Type: BLOOD SPECIMENOrdering Facility: [facility] Address: [address] [place] [id number] Performed By: #### 2 4323-8, 0-3 ####[facility]CLIA [id number] [place] [address] [place] ALP [Catalytic activity/Vol] 66 U/L Normal 38-113 [facility] [place] Comment on above: Order Comment: Speci men Type: BLOOD SPECIMENOrdering Facility: [facility] Address: [address] [place] [address] Performed By: #### 2 4323-8, 3039-3 ####[facility] LABCLIA [id number] [place] [address] [place] ALT [Catalytic activity/Vol] 10 U/L Normal 10-54 [facility] Comment on above: Order Comment: Speci men Type: BLOOD SPECIMENOrdering Facility: [facility] Address: [address] [place] [address] Performed By: #### 2 4323-8, 3039-3 ####[facility] LABCLIA [id number] [place] [address] [place] Anion gap [Moles/Vol] 12 mmol/L Normal 8-15 [facility] Comment on above: Order Comment: Speci men Type: BLOOD SPECIMENOrdering Facility: [facility] Address: [address] [place] [address] Performed By: #### 2 4323-8, 3039-3 ####[facility] LABCLIA [id number] [place] [id number] [place] AST [Catalytic activity/Vol] 15 U/L Normal 14-40 [facility] Comment on above: Order Comment: Speci men Type: BLOOD SPECIMENOrdering Facility: [facility] Address: [address] [place], [place] [address] Performed By: #### 2 4323-8, 0-3 ####[facility] LABCLIA [id number] [place] [id number] [place] Bilirubin [Mass/Vol] 0.9 mg/dL Normal 0.2-1.3 [facility] Comment on above: Order Comment: Speci men Type: BLOOD SPECIMENOrdering Facility: [facility] Address: [address] [place] [address] Performed By: #### 2 4323-8, 3040-3 ####[facility] LABCLIA [id number] [place] [address] [place] Calcium [Mass/Vol] 8.9 mg/dL Normal 8.5-10.2 [facility] Comment on above: Order Comment: Speci men Type: BLOOD SPECIMENOrdering Facility: [facility] Address: [address] [place] [address] Performed By: #### 2 4323-8, 3039-3 ####[facility] LABCLIA [id number] [place] [address] [place] Chloride [Moles/Vol] 105 mmol/L Normal 98-107 [facility] Comment on above: Order Comment: Speci men Type: BLOOD SPECIMENOrdering Facility: [facility] Address: [address] [place] [address] Performed By: #### 2 4323-8, 0-3 ####[facility]CLIA [id number] [place] [address] [place] CO2 [Moles/Vol] 22 mmol/L Normal 22-30 [facility] Comment on above: Order Comment: Speci men Type: BLOOD SPECIMENOrdering Facility: [facility] Address: [address] [place] [address] Performed By: #### 2 4323-8, 3040-3 ####[facility]CLIA [id number] [place] [id number] [place] Creatinine [Mass/Vol] 1.04 mg/dL Normal 0.73-1.22 [facility] Comment on above: Order Comment: Allegra donis Type: BLOOD SPECIMENOrdering Facility: [facility] Address: [address] [place] [address] Performed By: #### 2 4323-8, 3040-3 ####[facility]CLIA [id number] [place] [address] [place] Creatinine and Glomerular filtration rate.predicted panel (S/P/Bld) 76 mL/min/1.73m??? Normal >=60 [facility] Comment on above: Order Comment: Allegra odnis Type: BLOOD SPECIMENOrdering Facility: [facility] Address: [address] [place] [address] Result Comment: Stephanie mated Glomerular Filtration Rate (eGFR) is calculated using the 2020 CKD-EPI creatinine equation. This equation utilizes serum creatinine, sex, and age as parameters. The creatinine assay has traceable calibration to isotope dilution-mass spectrometry. Refer to KDIGO guidelines for clinical interpretation. In patients with unstable renal function, e.g. those with acute kidney injury, the eGFR may not accurately reflect actual GFR. Performed By: #### 2 4323-8, 3040-3 ####[facility] [id number] [place] [address] [place] Glucose [Mass/Vol] 114 mg/dL High 74-99 [facility] Comment on above: Order Comment: Allegra donis Type: BLOOD SPECIMENOrdering Facility: [facility] Address: [address] [place] [address] Result Comment: The [place] [employer] (ADA) provides guidance for cutoff values for fasting glucose and random glucose. The ADA defines fasting as no caloric intake for at least 8 hours. Fasting plasma glucose results between 100 to 125 mg/dL indicate increased risk for diabetes (prediabetes).Fasting plasma glucose results greater than or equal to 126 mg/dL meet the criteria for diagnosis of diabetes. In the absence of unequivocal hyperglycemia, results should be confirmed by repeat testing. In a patient with classic symptoms of hyperglycemia or hyperglycemic crisis, random plasma glucose results greater than or equal to 200 mg/dL meet the criteria for diagnosis of diabetes.Reference: Standards of Medical Care in Diabetes 2016, [place] [employer]. Diabetes Care. 2016.39(Suppl 1). Performed By: #### 2 4323-8, 3039-3 ####[facility] LABCLIA [id number] [address] [address] [place] Potassium [Moles/Vol] 4.5 mmol/L Normal 3.7-5.1 [facility] Comment on above: Order Comment: Speci men Type: BLOOD SPECIMENOrdering Facility: [facility] Address: [address] [place] [address] Performed By: #### 2 4323-8, 3039-3 ####[facility]CL[facility] [id number] [place] [address] [place] Protein [Mass/Vol] 6.1 g/dL Low 6.3-8.0 [facility] Comment on above: Order Comment: Speci men Type: BLOOD SPECIMENOrdering Facility: [facility] Address: [address] [place] [address] Performed By: #### 2 4323-8, 3039-3 ####[facility] [id number] [place] [address] [place] Sodium [Moles/Vol] 139 mmol/L Normal 136-144 [facility] Comment on above: Order Comment: Speci men Type: BLOOD SPECIMENOrdering Facility: [facility] Address: [address] [place] [id number] Performed By: #### 2 4323-8, 3039-3 ####[facility] LABCLIA [id number] [place] [id number] [place] Urea nitrogen [Mass/Vol] 25 mg/dL High 9-24 [facility] Comment on above: Order Comment: Speci men Type: BLOOD SPECIMENOrdering Facility: [facility] Address: [address] [place] [id number] Performed By: #### 2 4323-8, 3039-3 ####[facility] [id number] [place] [id number] [place] ECG COMPLETEon 06-03-2024 ECG COMPLETE Normal [facility] ED NOTEon 06-03-2024 ED NOTE Normal [facility] ED NOTE HNO ID: [id number] Author: AGATA VIEIRA RN Service: ? Author Type: Registered Nurse Type: ED Notes Filed: 06/03/2024 13:11 Note Text: Bed: E12-04 Expected date: Expected time: Means of arrival: Comments: EMS Normal [facility] ED PROV NOTEon 06-03-2024 ED PROV NOTE Normal [facility] ED PROV NOTE Normal [facility] ED PROV NOTE Normal [facility] HISTORY PHYSICALon HISTORY PHYSICAL Normal [facility] Lactate (Bld) [Moles/Vol]on 06-03-2024 Lactate [Moles/Vol] 1.1 mmol/L Normal 0.5-2.2 [facility] Comment on above: Order Comment: Speci men Type: BLOOD SPECIMENOrdering Facility: [facility] Address: [address] [place] [address] Performed By: #### 3 2693-4 ####[facility] LABIA [id number] [place] [address] [place] Lactate [Moles/Vol] 1.0 mmol/L Normal 0.5-2.2 [facility] Comment on above: Order Comment: Speci men Type: BLOOD SPECIMENOrdering Facility: [facility] Address: [address] [place] [address] Performed By: #### 3 2693-4 ####[facility] LABIA [id number] [place] [id number] [place] Lipase SerPl-cCncon 06-03-20 24 Lipase [Catalytic activity/Vol] 16 U/L Normal 16-61 [facility] Comment on above: Order Comment: Speci men Type: BLOOD SPECIMENOrdering Facility: [facility] Address: [address] [place] [address] Performed By: #### 2 4323-8, 3040-3 ####[facility] LABIA [id number] [place] [address] [place] PT panel Coag (PPP)on 2023 INR Coag (PPP) [Relative time] 1.1 {INR} Normal 0.9-1.3 [facility] Comment on above: Order Comment: Speci men Type: BLOOD SPECIMENOrdering Facility: [facility] Address: [address] [place] [address] Result Comment: Fozia min K Antagonist (VKA) Therapeutic Range: INR 2 to 3 (Target INR of 2.5)Note: For patients treated with VKA drugs, such as warfarin, the [employer] [employer] 2012 Guideline recommends a therapeutic INR range of 2 to 3 (target INR of 2.5). This recommendation includes high-risk patients with antiphospholipid syndrome with previous arterial or venous thromboembolism, current-generation mechanical or bioprosthetic aortic heart valve replacement.Note: Patients with mechanical aortic valve replacement and additional risk factors for thromboembolic events (atrial fibrillation, previous thromboembolism, LV dysfunction, hypercoagulable conditions) or an older generation mechanical AVR (i.e., ball in-Cage) or any mechanical MVR should have a INR therapeutic range of 2.5 to 3.5 (target INR of 3).Laith GH, et al. Chest 2012, 141:7S-47SNishlynda RA, et al. [facility] 2017, 70: 252-289 Performed By: #### 3 4528-0, 87434-5 ####[facility] [id number] [place] [id number] [place] PT Coag (PPP) [Time] 12.2 s Normal 9.7-13.0 [facility] Comment on above: Order Comment: Speci men Type: BLOOD SPECIMENOrdering Facility: [facility] Address: [address] [place] [address] Performed By: #### 3 4528-0, 79551-6 ####[facility] LABCLIA [id number] [address] [place] Procalcitonin SerPl-mCncon 1 08-04-2023 Procalcitonin [Mass/Vol] 0.08 ng/mL Normal <0.09 [facility] Comment on above: Order Comment: Speci men Type: BLOOD SPECIMENOrdering Facility: [facility] Address: [address] [place] [address] Result Comment: For a guided interpretation of test results, please visit the Change in Procalcitonin Calculator, [email or web address]. Performed By: #### 1 988-5, 42837-9 ####[facility] LABCLIA [id number] [place] [address] [place] TYPE + SCREENon 06-03-2024 ABO A Normal [facility] Comment on above: Order Comment: Speci men Type: BLOOD SPECIMENOrdering Facility: [facility] Address: [address] [place] [address] Performed By: #### T SCR ####[facility] BLOOD BANKIA [id number] [place] [address] [place] Rh Nom (Bld) Positive Normal [facility] Comment on above: Order Comment: Speci men Type: BLOOD SPECIMENOrdering Facility: [facility] Address: [address] [place] [address] Performed By: #### T SCR ####[facility] BLOOD BANKIA [id number] [place] [address] [place] TYPE AND SCREEN EXPIRATION 06/06/2024 23:59 Normal [facility] Comment on above: Order Comment: Speci men Type: BLOOD SPECIMENOrdering Facility: [facility] Address: [address] [place] [address] Performed By: #### T SCR ####[facility] BLOOD BANKIA [id number] [place] [id number] [place] XR ABDOMEN 1V SUPINEon 06-03 XR ABDOMEN 1V SUPINE Normal [facility] XR ABDOMEN 1V SUPINE Normal [facility] aPTT PPPon 06-03-2024 aPTT Coag (PPP) [Time] 26.1 s Normal 23.0-32.4 [facility] Comment on above: Order Comment: Speci men Type: BLOOD SPECIMENOrdering Facility: [facility] Address: [address] [place] [address] Performed By: #### 3 4528-0, 27205-9 ####[facility] LABCLIA [id number] [place] [address] [place] TRANSTHORACIC ECHO (TTE) COM PLETEon 05-20-2024 TRANSTHORACIC ECHO (TTE) COMPLETE [address], [address] [address] TRANSTHORACIC ECHOCARDIOGRAM REPORT Patient Name: SUSAN Kenny SHERMAN Reading Physician: Urmila Brannon MD Study Date: 05/20/2024 Ordering Provider: Urmila BRANNON MRN/PID: [id number] Fellow: Nurse: Date of /Age: 9 1950 / 74 years Parole Board Member: Kenya West RDCS T Gender Assigned at Additional Staff: : Height: 182.88 cm Admit Date: Weight: 69.40 kg Admission Status: BSA / BMI: 1.90 m2 / 20.75 Department Location: [facility] kg/m2 [facility] [place] Blood Pressure: 114 /72 mmHg Study Type: TRANSTHORACIC ECHO (TTE) COMPLETE Diagnosis/ICD: Shortness of breath-R06.02 Indication: Paroxysmal Atrial Fibrillation, Sick Sinus Syndrome, HTN, Hyperlipoidemia, Pacemaker, Former Smoker, History of Liver Transplant CPT Codes: Echo Complete w Full Doppler-94364 Study Detail: The following Echo studies were [...] mmHg 64 (more content not included)... Normal [facility] Transthoracicon Aortic Valve Area by Continuity of Peak Velocity 3.45 cm2 [facility] Work Phone: Aortic Valve Area by Continuity of VTI 3.23 cm2 [facility] Work Phone: AV mn grad 2 mmHg [facility] Work Phone: AV pk grad 3 mmHg [facility] Work Phone: AV pk ahmet 0.93 m/s [facility] Work Phone: LV A4C EF 60.5 [facility] Work Phone: LV Biplane EF 61 % [facility] Work Phone: LV EF 60 % [facility] Work Phone: LVIDd 3.75 cm [facility] Work Phone: LVOT diam 2.4 cm [facility] Work Phone: MV avg E/e' ratio 8.4 [facility] Work Phone: MV E/A ratio 0.75 [facility] Work Phone: RVSP 32.2 mmHg [facility] Work Phone: [address], Suite [facility], [place] [address] TRANSTHORACIC ECHOCARDIOGRAM REPORT Patient Name: SUSAN SHERMAN Reading Physician: Urmila Brannon MD Study Date: 05/20/2024 Ordering Provider: Urmila BRANNON MRN/PID: [id number] Fellow: Nurse: Date of /Age: 9 1950 / 74 years Parole Board Member: Kenya West RDCS, RVT Gender Assigned at M Additional Staff: : Height: 182.88 cm Admit Date: Weight: 69.40 kg Admission Status: BSA / BMI: 1.90 m2 / 20.75 Department Location: [facility] kg/m2 [facility] [place] Blood Pressure: 114 /72 mmHg Study Type: TRANSTHORACIC ECHO (TTE) COMPLETE Diagnosis/ICD: Shortness of breath-R06.02 Indication: Paroxysmal Atrial Fibrillation, Sick Sinus Syndrome, HTN, Hyperlipoidemia, Pacemaker, Former Smoker, History of Liver Transplant CPT Codes: Echo Complete w Full Doppler-01759 Study Detail: The following Echo studies were [...] not included)... Shea Hernandez MD - 05/20/[address], [address], [place] [address] TRANSTHORACIC ECHOCARDIOGRAM REPORT Patient Name: SUSAN Cox WHIT Reading Physician: [id number] Shea Brannon MD Study Date: 05/20/2024 Ordering Provider: [id number] SHEA BRANNON MRN/PID: [id number] Fellow: Nurse: Date of /Age: 9 1950 / 74 years Parole Board Member: Kenya West RDCS, RVT Gender Assigned at Additional Staff: : Height: 182.88 cm Admit Date: Weight: 69.40 kg Admission Status: BSA / BMI: 1.90 m2 / 20.75 Department Location: [facility] kg/m2 [facility] [place] Blood Pressure: 114 /72 mmHg Study Type: TRANSTHORACIC ECHO (TTE) COMPLETE Diagnosis/ICD: Shortness of breath-R06.02 Indication: Paroxysmal Atrial Fibrillation, Sick Sinus Syndrome, HTN, Hyperlipoidemia, Pacemaker, Former Smoker, History of Liver Transplant CPT Codes: Echo Complete w Full Doppler-16940 Study Detail: The following Echo studies were [...] Syst Pressure: 3 (more content not included)... [facility] Work Phone: [facility] Work Phone: CNPNon 04-18-2024 CNPN Normal [facility] Tacrolimus Bld-mCncon 2023 Tacrolimus (Bld) [Mass/Vol] 5.8 ng/mL Normal 5.0-20.0 [facility] [...] situation. Test performed by chemiluminescent immunoassay using [employer] Alinity i. Performed By: #### 1 1253-2 ####[facility] LABCLIA [id number] [facility] [id number] [place] [address] [place] No Panel Informationon 04-11 [facility] Healthcare CNCOon 02-25-2024 CNCO Letter Text Normal [facility] Ambulatory Visit Summaryon 0 02-17-2024 Ambulatory Visit [...] Sugey Arteaga MD Where: [facility] [address] [address]- You Need to Schedule the Following Appointments Follow Up with Chandler CHAVEZ, Sugey Cummins, TAMEKA, [facility] When: Comments: 6 mos (no labs) Where: [address] [place] [place] [address] [phone] Medications What How Much When Instructions Changed oxybutynin (oxybutynin 5 mg ER Tab) 1 Tablets By Mouth Once a day (in the evening) Pickup at [facility]/pharmacy #[id number] Unchanged aspirin (aspirin 81 mg oral [...] physician if questions or concerns Pharmacy Information [facility]/pharmacy #[id number]: [address], [place] [phone] Allergies No Known Medication Allergies Problems Ongoing [...] men o (more content not included)... Normal [facility] CHEMISTRYOrdered By: SYSTEM SYSTEM on 02-17-2024 Free PSA [Mass/Vol] 4.3 ng/mL Invalid Interpretation Code Remisol Chem Comment on above: Interpretive Data: T he concentration of free PSA and total PSA determined with assays from different manufacturers can vary due to differences in assay methods and specificity. Values obtained with different plow mechanic's assays cannot be used interchangeably. The methodology used to obtain this result was chemiluminescence using Miche[employer]'s Access Hybritech PSA reagent and Access Hybritech [...] used for this result was chemiluminescence using [employer]'s Access Hy[employer] PSA reagent. Urology Office/Clinic Noteon [...] Information Chandler CHAVEZ, Sugey Cummins, URL, [facility] [address] [place] [phone] Additional Instructions: 6 mos (no labs) Patient Education Benign Prostatic Hyperplasia I, Kayli Garcia, personally scribed for Dr. Arteaga on 02/17/2024 10:30:37. . Documentation recorded by the scribe, Kayli Garcia, accurately reflects the services(s) I performed and [...] transplantation. Medica (more content not included)... Normal [facility] Comment on above: Result Comment: Elec [...] situation. Test performed by chemiluminescent immunoassay using [employer] Alinity i. Performed By: #### 1 1253-2 ####[facility] LABCLIA [id number] [place] [address] [place] Tacrolimus Bld-mCncon 2023 Tacrolimus (Bld) [Mass/Vol] 6.7 ng/mL Normal 5.0-20.0 [facility] Comment on above: Order Comment: Allegra dnois Type: BLOOD SPECIMENOrdering Facility: [facility] [...] Alinity i. Performed By: #### 1 1253-2 ####[facility] LABCLIA [id number] [place] [address] [place] Tacrolimus Bld-mCncon 2023 Tacrolimus (Bld) [Mass/Vol] 5.1 ng/mL Normal 5.0-20.0 [facility] Comment on above: Order Comment: Allegra donis Type: BLOOD SPECIMENOrdering Facility: [facility] [...] Alinity i. Performed By: #### 1 1253-2 ####[facility] LABCLIA [id number] [place] [address] [place] Screenson 08-14-2023 Screens [id number] 05 [id number]#[id number] 0TIFF Normal [facility] Screens [id number] 05 [id number]#1.0 0TIFF Normal [facility] Ambulatory Visit Summaryon 0 08-13-2023 Ambulatory [...] Sugey Arteaga MD Where: [facility] Patient Educationon 08-13-19 24 Patient [...] Follow these instructions at home: ? Take muts-mkl-xgnrxer and prescription medicines only as told by [...] the medicine (more content not included)... Normal [facility] Urology Office/Clinic Noteon 08-13-2023 Urology Office/Clinic Note Chief Complaint Medication clarification HPI Staff Pt is here for medication clarification. Pt stopped into the [facility] 08/11/23 with questions about his medications. [...] with voice recognition artificial intelligence software, specifically [employer] and or [employer]. Substitutions may have occurred due to the [...] and Oxy (more content not included)... Normal [facility] Comment on above: Result Comment: Elec tronically Signed By: Chandler CHAVEZ, Sugey Kumari.br\Date and Time Signed: 08/13/23 09:48 EST\.br\Electronically Co-Signed By: Jenna Zarco.br\Date and Time Co-Signed: 08/13/23 09:42 EST CNPNon 07-27-2023 CNPN Normal [facility] Creatinine (Bld) [Mass/Vol]O rdered By: Sugey Arteaga on 11-11-2022 Creatinine [Mass/Vol] 1.5 mg/dL 0.6-1.3 [facility] Comment on above: ER/ESD physician is notified/shown all ISTAT results.Critical values may be confirmed by laboratory testing ifdeemed necessary by ER attending doctor. C reactive protein [Mass/vol ume] in Serum or PlasmaOrdered By: Sheila Magallanes on 11-06-2022 CRP [Mass/Vol] < 0.5 mg/dL 0.0-0.5 [facility] Calprotectin [Mass/mass] in StoolOrdered By: Sheila Magallanes on 11-06-2022 Calprotectin (Stl) [Mass/Mass] 31 ug/g 0-120 [facility] Comment on above: Concentration Interp retation Follow-Up< 5 - 50 ug/g Normal None>50 -120 ug/g Borderline Re-evaluate in 4-6 weeks >120 ug/g Abnormal Repeat as clinically indicatedPerformed at: [facility] Lab[address] [id number] Director: Slim Lewis MD, Phone: [phone] Clostridioides difficile tox in B tcdB gene [Presence] in Stool by LUZ MARIA with probe deteOrdered By: Sheila Magallanes on 11-06-2022 C. difficile toxin B tcdB gene LUZ MARIA+probe Ql (Stl) Negative Negative [facility] Comment on above: Testing performed by RT-PCR Elastase.pancreatic [Mass/ma ss] in StoolOrdered By: Sheila Magallanes on 11-06-2022 Elastase.pancreatic (Stl) [Mass/Mass] 132 >200 [facility] Comment on above: Result Units: ug [address] st./g Severe Pancreatic Insufficiency: <100 Moderate Pancreatic Insufficiency: 100 - 200 Normal: >200Performed at: - [place] [address] [place], [place] [id number] Director: Slim Lewis MD, Phone: [phone] Erythrocyte sedimentation ra te by Photometric methodOrdered By: Sheila Magallanes on 11-06-2022 ESR Photometric method (Bld) [Velocity] < 1 mm/hr 0- [facility] IgA [Mass/volume] in Serum o r PlasmaOrdered By: Sheila Magallanes on 11-06-2022 IgA [Mass/Vol] 23 mg/dL 61-437 [facility] Comment on above: Result confirmed on concentration.Performed at: - [facility] [id number] Director: Jorge Lockwood PhD, Phone: [phone] No Panel InformationOrdered By: Sheila Magallanes on 11-06-2022 Endomysial IgA Antibody Negative Negative F [facility] Ova and Parasite Result 1 [facility] Ova or parasites identificat ionOrdered By: Sheila Magallanes on 11-06-2022 Ova and parasites identified LM Nom (Unsp spec) [facility] Serum gliadin peptide IgA an tibody assay (units/volume)Ordered By: Sheila Magallanes on 11-06-2022 Gliadin peptide IgA Qn (S) 5 units 0-19 [facility] Comment on above: Negative 0 - 19 Weak Positive 20 - 30 Moderate to Strong Positive >30 Serum gliadin peptide IgG an tibody assay (units/volume)Ordered By: Sheila Magallanes on 11-06-2022 Gliadin peptide IgG Qn (S) 4 units 0-19 [facility] Comment on above: Negative 0 - 19 Weak Positive 20 - 30 Moderate to Strong Positive >30 Serum tissue transglutaminas e (tTG) IgA antibody assay (units/volume)Ordered By: Sheila Magallanes on 11-06-2022 tTG IgA Qn (S) <2 U/mL 0-3 [facility] Comment on above: Negative 0 - 3 Weak Positive 4 - 10 Positive >10 Tissue Transglutaminase (tTG) has been identified as the endomysial antigen. Studies have demonstr- ated that endomysial IgA antibodies have over 99% specificity for gluten sensitive enteropathy. Serum tissue transglutaminas e (tTG) IgG antibody assay (units/volume)Ordered By: Sheila Magallanes on 11-06-2022 tTG IgG Qn (S) <2 U/mL 0-5 [facility] Comment on above: Negative 0 - 5 Weak Positive 6 - 9 Positive >9 Stool bacteria identificatio n by cultureOrdered By: yung Magallanes on 11-06-2022 Bacteria identified Cx Nom (Stl) [facility] Stool sodium measurement (mo les/volume)Ordered By: yung [employer] on 11-06-2022 Sodium (Stl) [Moles/Vol] See comment [facility] Comment on above: See report. Scanned copy available in EMR. Thyrotropin [Units/volume] i n Serum or PlasmaOrdered By: yung Magallanes on 11-06-2022 TSH Qn 3.51 m[IU]/L 0.45-5.33 [facility] HEP C RNA BY PCR QUANT (NON- GRAPHICAL) Won 10-21-2022 HCV Genotype RTNI Normal [facility] Comment on above: Result Comment: Not indicated Performed By: #### MERLE CULVER #### [facility] [address] [place] [address] [address] Yogi Naidu HCV log10 UPTCAL Normal [facility] Comment on above: Result Comment: Unab le to calculate result since non-numeric result obtained for component test. Performed By: #### MERLE CULVER #### [facility] [address] [place] [address] [address] Yogi Naidu Hepatitis C Quantitation Not detected Normal [facility] Comment on above: Performed By: #### MERLE CULVER #### [facility] [address] [place] [place] [address] [address] Yogi Naidu Test Information: Comment Normal [facility] Comment on above: Result Comment: The quantitative range of this assay is 15 IU/mL to 100 million IU/mL. Performed By: #### MERLE CULVER #### [facility] [address] [place] [place] [address] [address] Yogi Naidu BOX TEST SENT OUTon 10-21-19 23 SENT TO REF LAB 10/20/2022 Normal [facility] Comment on above: Performed By: #### B OX #### [facility] [address] [place] [address] Dr. Yogi Naidu CBC AUTO DIFFon 10-20-2022 BASO # 0.1 103/ul Normal 0.0-0.1 [facility] Comment on above: Performed By: #### C BC #### [facility] [address] [place] [address] Dr. Yogi Naidu Basophils/100 WBC (Bld) 1.1 % Normal 0.2-2.0 [facility] Comment on above: Performed By: #### C BC #### [facility] [address] [place] [address] Dr. Yogi Naidu EO # 0.2 103/ul Normal 0.0-0.7 [facility] Comment on above: Performed By: #### C BC #### [facility] [address] [place] [address] Dr. Yogi Naidu Eosinophils/100 WBC (Bld) 3.6 % Normal 0.9-7.0 [facility] Comment on above: Performed By: #### C BC #### [facility] [address] [place] [address] Dr. Yogi Naidu Erythrocyte distribution width (RBC) [Ratio] 14.2 % Normal 11.0-15.0 [facility] Comment on above: Performed By: #### C BC #### [facility] [address] [place] [address] Dr. Yogi Naidu Hematocrit (Bld) [Volume fraction] 45.4 % Normal 42.0-54.0 [facility] Comment on above: Performed By: #### C BC #### [facility] [address] [place] [address] Dr. Yogi Naidu Hemoglobin (Bld) [Mass/Vol] 15.0 g/dL Normal 14.0-18.0 [facility] Comment on above: Performed By: #### C BC #### [facility] [address] [place] [address] Dr. Yogi Naidu IG # 0.02 10e3/ul Normal 0.00-0.03 [facility] Comment on above: Performed By: #### C BC #### [facility] [address] [place] [address] Dr. Yogi Naidu IG % 0.4 % Normal 0.0-0.5 [facility] Comment on above: Performed By: #### C BC #### [facility] [address] [place] [address] Dr. Yogi Naidu LYMPH # 0.7 103/ul Critically low 1.2-3.8 [facility] Comment on above: Performed By: #### C BC #### [facility] [address] [place] [address] Dr. Yogi Naidu Lymphocytes/100 WBC (Bld) 13.3 % Critically low 20.5-60.0 [facility] Comment on above: Performed By: #### C BC #### [facility] [address] [place] [address] Dr. Yogi Naidu MANUAL DIFF REQ NO Normal [facility] Comment on above: Performed By: #### C BC #### [facility] [address] [place] [address] Dr. Yogi Naidu MCH (RBC) [Entitic mass] 29.7 pg Normal 25.9-34.0 [facility] Comment on above: Performed By: #### C BC #### [facility] [address] [place] [address] Dr. Yogi Naidu MCHC (RBC) [Mass/Vol] 33.0 g/dL Normal 29.9-35.2 [facility] Comment on above: Performed By: #### C BC #### [facility] [address] [place] [address] Dr. Yogi Naidu MCV (RBC) [Entitic vol] 89.9 fL Normal 80.0-94.0 [facility] Comment on above: Performed By: #### C BC #### [facility] [address] [place] [address] Dr. Yogi Naidu MONO # 0.3 103/ul Normal 0.3-0.8 [facility] Comment on above: Performed By: #### C BC #### [facility] [address] [place] [address] Dr. Yogi Naidu Monocytes/100 WBC (Bld) 5.8 % Normal 1.7-12.0 [facility] Comment on above: Performed By: #### C BC #### [facility] [address] [place] [address] Dr. Yogi Naidu NEUT # 4.1 103/ul Normal 1.4-6.5 [facility] Comment on above: Performed By: #### C BC #### [facility] [address] [place] [address] Dr. Yogi Naidu Neutrophils/100 WBC (Bld) 75.8 % Critically high 43.0-75.0 [facility] Comment on above: Performed By: #### C BC #### [facility] [address] [place] [address] Dr. Yogi Naidu Platelet mean volume (Bld) [Entitic vol] 9.3 fL Critically low 9.5-13.5 [facility] Comment on above: Performed By: #### C BC #### [facility] [address] [place] [address] Dr. Yogi Naidu PLT 174 103/ul Normal 150-450 [facility] Comment on above: Performed By: #### C BC #### [facility] [address] [place] [address] Dr. Yogi Naidu RBC 5.05 106/ul Normal 4.70-6.10 [facility] Comment on above: Performed By: #### C BC #### [facility] [address] [place] [address] Dr. Yogi Naidu WBC 5.4 103/ul Normal 4.0-11.0 [facility] Comment on above: Performed By: #### C BC #### [facility] [address] [place] [address] Dr. Yogi Naidu GGTon 10-20-2022 Gamma glutamyl transferase [Catalytic activity/Vol] 28 U/L Normal 15-85 [facility] Comment on above: Performed By: #### C MP, MG, PHOS, GGT #### [facility] [address] [place] [address] Dr. Yogi Naidu LIPID PROFILEon 10-20-2022 CHOL-HDL RATIO NORM SEE BELOW Normal [facility] Comment on above: Result Comment: 3.3 - 4.4 LOW RISK 4.4 - 7.1 AVERAGE RISK 7.1 - 11.0 MODERATE RISK >11.0 HIGH RISK Performed By: #### C MP, MG, PHOS, GGT #### [facility] [address] [place] [address] Dr. Yogi Naidu Cholesterol [Mass/Vol] 195 mg/dL Normal <=200 [facility] Comment on above: Performed By: #### C MP, MG, PHOS, GGT #### [facility] [address] [place] [address] Dr. Yogi Naidu Cholesterol in HDL [Mass/Vol] 50 mg/dL Normal 40-60 [facility] Comment on above: Performed By: #### C MP, MG, PHOS, GGT #### [facility] [address] [place] [address] Dr. Yogi Naidu Cholesterol in LDL [Mass/Vol] 131.6 mg/dL Normal [facility] Comment on above: Performed By: #### C MP, MG, PHOS, GGT #### [facility] [address] [place] [address] Dr. Yogi Naidu Cholesterol.total/Choles terol in HDL [Mass ratio] 3.9 {ratio} Normal [facility] Comment on above: Performed By: #### C MP, MG, PHOS, GGT #### [facility] [address] [place] [address] Dr. Yogi Naidu HDL NORMAL > or = 60 mg/dl - LO W CARDIOVASCULAR RISK <40 mg/dl - HIGH CARDIOVASCULAR RISK Normal [facility] Comment on above: Performed By: #### C MP, MG, PHOS, GGT #### [facility] [address] [place] [address] Dr. Yogi aNidu LDL CALC NORMAL SEE BELOW Normal [facility] Comment on above: Result Comment: <100 mg/dl OPTIMAL 100 - 129 mg/dl NEAR OR ABOVE OPTIMAL 130 - 159 mg/dl BORDERLINE HIGH 160 - 189 mg/dl HIGH >190 mg/dl VERY HIGH Performed By: #### C MP, MG, PHOS, GGT #### [facility] [address] [place] [address] Dr. Yogi Naidu Triglyceride [Mass/Vol] 67 mg/dL Normal <=150 T [facility] Comment on above: Performed By: #### C MP, MG, PHOS, GGT #### [facility] [address] [address] [address] Yogi Naidu VLDL CALC 13.4 mg/dL Normal [facility] Comment on above: Performed By: #### C MP, MG, PHOS, GGT #### [facility] [address] [place] [address] Dr. Yogi Naidu MAGNESIUMon 10-20-2022 Magnesium [Mass/Vol] 1.8 mg/dL Normal 1.8-2.4 [facility] Comment on above: Performed By: #### C MP, MG, PHOS, GGT #### [facility] [address] [place] [address] Dr. Yogi Naidu PHOSPHORUSon 10-20-2022 Phosphate [Mass/Vol] 3.2 mg/dL Normal 2.6-4.7 [facility] Comment on above: Performed By: #### C MP, MG, PHOS, GGT #### [facility] [address] [address] [address] Yogi Naidu PROF 14(COMP METB)on 023 Albumin [Mass/Vol] 3.8 g/dL Normal 3.4-5.0 [facility] Comment on above: Performed By: #### C MP, MG, PHOS, GGT #### [facility] [address] [place] [address] Dr. Yogi Naidu Albumin/Globulin [Mass ratio] 1.5 {ratio} Normal [facility] Comment on above: Performed By: #### C MP, MG, PHOS, GGT #### [facility] [address] [address] [address] Yogi Naidu ALP [Catalytic activity/Vol] 64 U/L Normal 46-116 [facility] Comment on above: Performed By: #### C MP, MG, PHOS, GGT #### [facility] [address] [place] [address] Dr. Yogi Naidu ALT [Catalytic activity/Vol] 21 U/L Normal 16-63 [facility] Comment on above: Performed By: #### C MP, MG, PHOS, GGT #### [facility] [address] [place] [address] Dr. Yogi Naidu Anion gap [Moles/Vol] 12.6 mmol/L Normal [facility] Comment on above: Performed By: #### C MP, MG, PHOS, GGT #### [facility] [address] [place] [address] Dr. Yogi Naidu AST [Catalytic activity/Vol] 14 U/L Critically low 15-37 [facility] Comment on above: Performed By: #### C MP, MG, PHOS, GGT #### [facility] [address] [place] [address] Dr. Yogi Naidu Bilirubin [Mass/Vol] 0.6 mg/dL Normal 0.2-1.0 [facility] Comment on above: Performed By: #### C MP, MG, PHOS, GGT #### [facility] [address] [place] [address] Dr. Yogi Naidu Calcium [Mass/Vol] 9.1 mg/dL Normal 8.5-10.1 [facility] Comment on above: Performed By: #### C MP, MG, PHOS, GGT #### [facility] [address] [place] [address] Dr. Yogi Naidu Chloride [Moles/Vol] 110 mmol/L Critically high 98-107 [facility] Comment on above: Performed By: #### C MP, MG, PHOS, GGT #### [facility] [address] [place] [address] Dr. Yogi Naidu CO2 [Moles/Vol] 27.6 mmol/L Normal 21.0-32.0 [facility] Comment on above: Performed By: #### C MP, MG, PHOS, GGT #### [facility] [address] [place] [address] Dr. Yogi Naidu Creatinine [Mass/Vol] 1.06 mg/dL Normal 0.70-1.30 [facility] Comment on above: Performed By: #### C MP, MG, PHOS, GGT #### [facility] [address] [place] [address] Dr. Yogi Naidu EGFR-AF BOTSWANAN >60 Normal >=60 [facility] Comment on above: Performed By: #### C MP, MG, PHOS, GGT #### [facility] [address] [place] [address] Dr. Yogi Naidu EGFR-NON AF BOTSWANAN >60 Normal >=60 [facility] Comment on above: Performed By: #### C MP, MG, PHOS, GGT #### [facility] [address] [place] [address] Dr. Yogi Naidu Globulin (S) [Mass/Vol] 2.6 g/dL Normal [facility] Comment on above: Performed By: #### C MP, MG, PHOS, GGT #### [facility] [address] [place] [address] Dr. Yogi Naidu Glucose [Mass/Vol] 106 mg/dL Normal 74-106 [facility] Comment on above: Performed By: #### C MP, MG, PHOS, GGT #### [facility] [address] [place] [address] Dr. Yogi Naidu Potassium [Moles/Vol] 4.2 mmol/L Normal 3.5-5.1 [facility] Comment on above: Performed By: #### C MP, MG, PHOS, GGT #### [facility] [address] [place] [address] Dr. Yogi Naidu Protein [Mass/Vol] 6.4 g/dL Normal 6.4-8.2 [facility] Comment on above: Performed By: #### C MP, MG, PHOS, GGT #### [facility] [address] [address] [address] Yogi Naidu Sodium [Moles/Vol] 146 mmol/L Critically high 136-145 T [facility] Comment on above: Performed By: #### C MP, MG, PHOS, GGT #### [facility] [address] [place] [address] Dr. Yogi Naidu Urea nitrogen [Mass/Vol] 20.0 mg/dL Critically high 7.0-18 .0 [facility] Comment on above: Performed By: #### C MP, MG, PHOS, GGT #### [facility] [address] [place] [address] Dr. Yogi Naidu Urea nitrogen/Creatinine [Mass ratio] 18.9 mg/mg Normal [facility] Comment on above: Performed By: #### C MP, MG, PHOS, GGT #### [facility] [address] [place] [address] Dr. Yogi Naidu Prostate specific Ag [Mass/v olume] in Serum or PlasmaOrdered By: Sugey Arteaga on 10-09-2022 Prostate specific Ag [Mass/Vol] 48.840 ng/mL 0.000-4.000 [facility] CULTURE URINEon 09-29-2022 CULTURE URINE [...] S F Nitrofurantoin <=16 S F Normal [facility] Comment on above: Performed By: #### C MP, MG, PHOS, GGT #### [facility] [address] [place] [address] Dr. Yogi Naidu ER URINE PROFILEon 3 Bilirubin Ql (U) Negative Normal NEGATIVE [facility] Comment on above: Performed By: #### E RUR, UMICRO #### [facility] [address] [place] [address] Dr. Yogi Naidu Clarity (U) SL CLOUDY Abnormal CLEAR [facility] Comment on above: Performed By: #### Vesta DE OLIVEIRA UMICRO #### [facility] [address] [place] [address] Dr. Yogi Naidu Color (U) LT. YELLOW Normal YELLOW [facility] Comment on above: Performed By: #### Vesta DE OLIVEIRA UMICRO #### [facility] [address] [place] [address] Dr. Yogi KIRAN A micrscopic examination will be performed if indicated. Normal [facility] Comment on above: Performed By: #### Vesta DE OLIVEIRA UMICRO #### [facility] [address] [place] [address] Dr. Yogi Naidu Glucose Ql (U) Negative Normal NEGATIVE [facility] Comment on above: Performed By: #### Vesta DE OLIVEIRA UMICRO #### [facility] [address] [place] [address] Dr. Yoig Naidu Hemoglobin Ql (U) Negative Normal NEGATIVE [facility] Comment on above: Performed By: #### SONU CULVERICRO #### [facility] [address] [place] [address] Dr. Yogi Naidu Ketones Ql (U) 15 mg/dl Abnormal NEGATIVE [facility] Comment on above: Performed By: #### SONU CULVERICRO #### [facility] [address] [place] [address] Dr. Yogi Naidu LEUKOCYTES MODERATE Abnormal NEGATIVE [facility] Comment on above: Performed By: #### Vesta DE OLIVEIRA UMICRO #### [facility] [address] [place] [address] Dr. Yogi Naidu Nitrite Ql (U) Negative Normal NEGATIVE [facility] Comment on above: Performed By: #### Vesta DE OLIVEIRA UMICRO #### [facility] [address] [place] [address] Dr. Yogi Naidu pH (U) 5.5 [pH] Normal 5-9 [facility] Comment on above: Performed By: #### Vesta DE OLIVEIRA UMICRO #### [facility] [address] [place] [address] Dr. Yogi Naidu SPEC GRAVITY 1.030 Abnormal 1.005-<=1.0 25 [facility] Comment on above: Performed By: #### Vesta DE OLIVEIRA UMICRO #### [facility] [address] [place] [address] Dr. Yogi Naidu UA PROTEIN TRACE Normal NEGATIVE/ TRACE [facility] Comment on above: Performed By: #### Vesta DE OLIVEIRA UMICRO #### [facility] [address] [place] [address] Dr. Yogi Naidu UR MICRO IND INDICATED Normal [facility] Comment on above: Performed By: #### Vesta DE OLIVEIRA UMICRO #### [facility] [address] [place] [address] Dr. Yogi Naidu Urobilinogen Qn (U) 0.2 {Kt'U}/dL Normal 0.2 - 1. 0 [facility] Comment on above: Performed By: #### Vesta DE OLIVEIRA UMICRO #### [facility] [address] [place] [address] Dr. Yogi Naidu URINE MICROSCOPIC ONLYon BACTERIA SMALL Abnormal NONE SEEN [facility] Comment on above: Performed By: #### Vesta DE OLIVEIRA UMICRO #### [facility] [address] [place] [address] Dr. Yogi Naidu Bacteria identified Cx Nom (U) CX ALREADY ORDERED Normal [facility] Comment on above: Performed By: #### Vesta DE OLIVEIRA UMICRO #### [facility] [address] [place] [address] Dr. Yogi Naidu CAST NONE SEEN Normal NONE SEEN [facility] Comment on above: Performed By: #### Vesta DE OLIVEIRA UMICRO #### [facility] [address] [place] [address] Dr. Yogi Naidu Crystals LM Nom (Urine sed) NONE SEEN Normal NONE SEEN [facility] Comment on above: Performed By: #### E RUR, UMICRO #### [facility] [address] [address] [address] Yogi Naidu Epithelial cells LM Ql (Urine sed) NONE SEEN Normal NONE SEEN /RARE [facility] Comment on above: Performed By: #### E RUR, UMICRO #### [facility] [address] [address] [address] Yogi Naidu MUCOUS NONE SEEN Normal NONE SEEN [facility] Comment on above: Performed By: #### E RUR, UMICRO #### [facility] [address] [place] [address] Dr. Yogi Naidu RBC 0-2 Normal 0-2 [facility] Comment on above: Performed By: #### E RUR, UMICRO #### [facility] [address] [place] [address] Dr. Yogi Naidu WBC 50-75 Abnormal NONE SEEN [facility] Comment on above: Performed By: #### E ALVINO, UMICRO #### [facility] [address] [place] [address] Dr. Yogi Naidu BOX TEST SENT OUTon 08-20-19 23 SENT TO REF LAB 08/19/2022 Normal [facility] Comment on above: Performed By: #### B OX #### [facility] [address] [place] [address] Dr. Yogi Naidu CBC AUTO DIFFon 08-19-2022 BASO # 0.1 103/ul Normal 0.0-0.1 [facility] Comment on above: Performed By: #### C MP, MG, PHOS, GGT #### [facility] [address] [place] [address] Dr. Yogi Naidu Basophils/100 WBC (Bld) 0.9 % Normal 0.2-2.0 [facility] Comment on above: Performed By: #### C MP, MG, PHOS, GGT #### [facility] [address] [place] [address] Dr. Yogi Naidu EO # 0.2 103/ul Normal 0.0-0.7 [facility] Comment on above: Performed By: #### C MP, MG, PHOS, GGT #### [facility] [address] [place] [address] Dr. Yogi Naidu Eosinophils/100 WBC (Bld) 2.8 % Normal 0.9-7.0 [facility] Comment on above: Performed By: #### C MP, MG, PHOS, GGT #### [facility] [address] [place] [address] Dr. Yogi Naidu Erythrocyte distribution width (RBC) [Ratio] 13.9 % Normal 11.0-15.0 [facility] Comment on above: Performed By: #### C MP, MG, PHOS, GGT #### [facility] [address] [place] [address] Dr. Yogi Naidu Hematocrit (Bld) [Volume fraction] 46.0 % Normal 42.0-54.0 [facility] Comment on above: Performed By: #### C MP, MG, PHOS, GGT #### [facility] [address] [place] [address] Dr. Yogi Naidu Hemoglobin (Bld) [Mass/Vol] 15.6 g/dL Normal 14.0-18.0 [facility] Comment on above: Performed By: #### C MP, MG, PHOS, GGT #### [facility] [address] [place] [address] Dr. Yogi Naidu IG # 0.02 10e3/ul Normal 0.00-0.03 [facility] Comment on above: Performed By: #### C MP, MG, PHOS, GGT #### [facility] [address] [place] [address] Dr. Yogi Niadu IG % 0.3 % Normal 0.0-0.5 [facility] Comment on above: Performed By: #### C MP, MG, PHOS, GGT #### [facility] [address] [place] [address] Dr. Yogi Naidu LYMPH # 0.9 103/ul Critically low 1.2-3.8 [facility] Comment on above: Performed By: #### C MP, MG, PHOS, GGT #### [facility] [address] [place] [address] Dr. Yogi Naidu Lymphocytes/100 WBC (Bld) 12.8 % Critically low 20.5-60.0 [facility] Comment on above: Performed By: #### C MP, MG, PHOS, GGT #### [facility] [address] [place] [address] Dr. Yogi Naidu MANUAL DIFF REQ NO Normal [facility] Comment on above: Performed By: #### C MP, MG, PHOS, GGT #### [facility] [address] [place] [address] Dr. Yogi Naidu MCH (RBC) [Entitic mass] 29.7 pg Normal 25.9-34.0 [facility] Comment on above: Performed By: #### C MP, MG, PHOS, GGT #### [facility] [address] [place] [address] Dr. Yogi Naidu MCHC (RBC) [Mass/Vol] 33.9 g/dL Normal 29.9-35.2 [facility] Comment on above: Performed By: #### C MP, MG, PHOS, GGT #### [facility] [address] [place] [address] Dr. Yogi Naidu MCV (RBC) [Entitic vol] 87.6 fL Normal 80.0-94.0 [facility] Comment on above: Performed By: #### C MP, MG, PHOS, GGT #### [facility] [address] [place] [address] Dr. Yogi Naidu MONO # 0.4 103/ul Normal 0.3-0.8 [facility] Comment on above: Performed By: #### C MP, MG, PHOS, GGT #### [facility] [address] [place] [address] Dr. Yogi Naidu Monocytes/100 WBC (Bld) 6.0 % Normal 1.7-12.0 [facility] Comment on above: Performed By: #### C MP, MG, PHOS, GGT #### [facility] [address] [address] [address] Yogi Naidu NEUT # 5.2 103/ul Normal 1.4-6.5 [facility] Comment on above: Performed By: #### C MP, MG, PHOS, GGT #### [facility] [address] [place] [address] Dr. Yogi Naidu Neutrophils/100 WBC (Bld) 77.2 % Critically high 43.0-75.0 [facility] Comment on above: Performed By: #### C MP, MG, PHOS, GGT #### [facility] [address] [place] [address] Dr. Yogi Naidu Platelet mean volume (Bld) [Entitic vol] 9.3 fL Critically low 9.5-13.5 [facility] Comment on above: Performed By: #### C MP, MG, PHOS, GGT #### [facility] [address] [place] [address] Dr. Yogi Naidu PLT 215 103/ul Normal 150-450 [facility] Comment on above: Performed By: #### C MP, MG, PHOS, GGT #### [facility] [address] [place] [address] Dr. Yogi Naidu RBC 5.25 106/ul Normal 4.70-6.10 [facility] Comment on above: Performed By: #### C MP, MG, PHOS, GGT #### [facility] [address] [place] [address] Dr. Yogi Naidu WBC 6.8 103/ul Normal 4.0-11.0 [facility] Comment on above: Performed By: #### C MP, MG, PHOS, GGT #### [facility] [address] [place] [address] Dr. Yogi Naidu GGTon 08-19-2022 Gamma glutamyl transferase [Catalytic activity/Vol] 32 U/L Normal 15-85 [facility] Comment on above: Performed By: #### C MP, MG, PHOS, GGT #### [facility] [address] [place] [address] Dr. Yogi Naidu MAGNESIUMon 08-19-2022 Magnesium [Mass/Vol] 1.5 mg/dL Critically low 1.8-2.4 [facility] Comment on above: Performed By: #### C MP, MG, PHOS, GGT #### [facility] [address] [place] [address] Dr. Yogi Naidu PHOSPHORUSon 08-19-2022 Phosphate [Mass/Vol] 3.0 mg/dL Normal 2.6-4.7 [facility] Comment on above: Performed By: #### C MP, MG, PHOS, GGT #### [facility] [address] [place] [address] Dr. Yogi Naidu PROF 14(COMP METB)on 023 Albumin [Mass/Vol] 4.2 g/dL Normal 3.4-5.0 [facility] Comment on above: Performed By: #### C MP, MG, PHOS, GGT #### [facility] [address] [place] [address] Dr. Yogi Naidu Albumin/Globulin [Mass ratio] 1.7 {ratio} Normal [facility] Comment on above: Performed By: #### C MP, MG, PHOS, GGT #### [facility] [address] [place] [address] Dr. Yogi Naidu ALP [Catalytic activity/Vol] 68 U/L Normal 46-116 [facility] Comment on above: Performed By: #### C MP, MG, PHOS, GGT #### [facility] [address] [place] [address] Dr. Yogi Naidu ALT [Catalytic activity/Vol] 16 U/L Normal 16-63 [facility] Comment on above: Performed By: #### C MP, MG, PHOS, GGT #### [facility] [address] [place] [address] Dr. Yogi Naidu Anion gap [Moles/Vol] 12.4 mmol/L Normal [facility] Comment on above: Performed By: #### C MP, MG, PHOS, GGT #### [facility] [address] [place] [address] Dr. Yogi Naidu AST [Catalytic activity/Vol] 16 U/L Normal 15-37 [facility] Comment on above: Performed By: #### C MP, MG, PHOS, GGT #### [facility] [address] [place] [address] Dr. Yogi Naidu Bilirubin [Mass/Vol] 0.7 mg/dL Normal 0.2-1.0 [facility] Comment on above: Performed By: #### C MP, MG, PHOS, GGT #### [facility] [address] [place] [address] Dr. Yogi Naidu Calcium [Mass/Vol] 9.2 mg/dL Normal 8.5-10.1 [facility] Comment on above: Performed By: #### C MP, MG, PHOS, GGT #### [facility] [address] [place] [address] Dr. Yogi Naidu Chloride [Moles/Vol] 110 mmol/L Critically high 98-107 [facility] Comment on above: Performed By: #### C MP, MG, PHOS, GGT #### [facility] [address] [place] [address] Dr. Yogi Naidu CO2 [Moles/Vol] 26.6 mmol/L Normal 21.0-32.0 [facility] Comment on above: Performed By: #### C MP, MG, PHOS, GGT #### [facility] [address] [place] [address] Dr. Yogi Naidu Creatinine [Mass/Vol] 1.08 mg/dL Normal 0.70-1.30 [facility] Comment on above: Performed By: #### C MP, MG, PHOS, GGT #### [facility] [address] [place] [address] Dr. Yogi Naidu EGFR-AF BOTSWANAN >60 Normal >=[address] [facility] Comment on above: Performed By: #### C MP, MG, PHOS, GGT #### [facility] [address] [place] [address] Dr. Yogi Naidu EGFR-NON AF BOTSWANAN >60 Normal >=60 [facility] Comment on above: Performed By: #### C MP, MG, PHOS, GGT #### [facility] [address] [place] [address] Dr. Yogi Naidu Globulin (S) [Mass/Vol] 2.4 g/dL Normal T [facility] Comment on above: Performed By: #### C MP, MG, PHOS, GGT #### [facility] [address] [place] [address] Dr. Yogi Naidu Glucose [Mass/Vol] 100 mg/dL Normal 74-106 [facility] Comment on above: Performed By: #### C MP, MG, PHOS, GGT #### [facility] [address] [place] [address] Dr. Yogi Naidu Potassium [Moles/Vol] 4.5 mmol/L Normal 3.5-5.1 [facility] Comment on above: Performed By: #### C MP, MG, PHOS, GGT #### [facility] [address] [place] [address] Dr. Yogi Naidu Protein [Mass/Vol] 6.6 g/dL Normal 6.4-8.2 [facility] Comment on above: Performed By: #### C MP, MG, PHOS, GGT #### [facility] [address] [place] [address] Dr. Yogi Naidu Sodium [Moles/Vol] 145 mmol/L Normal 136-145 [facility] Comment on above: Performed By: #### C MP, MG, PHOS, GGT #### [facility] [address] [place] [address] Dr. Yogi Naidu Urea nitrogen [Mass/Vol] 22.0 mg/dL Critically high 7.0-18 .0 [facility] Comment on above: Performed By: #### C MP, MG, PHOS, GGT #### [facility] [address] [place] [address] Dr. Yogi Naidu Urea nitrogen/Creatinine [Mass ratio] 20.3 mg/mg Normal [facility] Comment on above: Performed By: #### C MP, MG, PHOS, GGT #### [facility] [address] [place] [address] Dr. Yogi Naidu HEP C RNA BY PCR QUANT (NON- GRAPHICAL) Won 07-23-2022 HCV Genotype RTNI Normal [facility] Comment on above: Result Comment: Not indicated Performed By: #### E ALVINO, UMBERNARDARO #### [facility] [address] [place] [address] Dr. Yogi Naidu HCV log10 UPTCAL Normal [facility] Comment on above: Result Comment: Unab le to calculate result since non-numeric result obtained for component test. Performed By: #### E ALVINO, UMICRO #### [facility] [address] [place] [address] Dr. Yoig Naidu Hepatitis C Quantitation Not detected [facility] Comment on above: Performed By: #### E ALVINO, DASHRO #### [facility] [address] [place] [address] Dr. Yogi Naidu Test Information: Comment Normal [facility] Comment on above: Result Comment: The quantitative range of this assay is 15 IU/mL to 100 million IU/mL. Performed By: #### Vesta DE OLIVEIRA, DASHRO #### [facility] [address] [place] [address] Dr. Yogi Naidu BOX TEST SENT OUTon 07-22-19 23 SENT TO REF LAB 07/22/2022 Normal [facility] Comment on above: Performed By: #### B OX #### [facility] [address] [place] [address] Dr. Yogi Naidu CBC AUTO DIFFon 07-22-2022 BASO # 0.1 103/ul Normal 0.0-0.1 [facility] Comment on above: Performed By: #### C BC #### [facility] [address] [place] [address] Dr. Yogi Naidu Basophils/100 WBC (Bld) 1.0 % Normal 0.2-2.0 [facility] Comment on above: Performed By: #### C BC #### [facility] [address] [place] [address] Dr. Yogi Naidu EO # 0.2 103/ul Normal 0.0-0.7 [facility] Comment on above: Performed By: #### C BC #### [facility] [address] [place] [address] Dr. Yogi Naidu Eosinophils/100 WBC (Bld) 2.5 % Normal 0.9-7.0 [facility] Comment on above: Performed By: #### C BC #### [facility] [address] [place] [address] Dr. Yogi Naidu Erythrocyte distribution width (RBC) [Ratio] 14.1 % Normal 11.0-15.0 [facility] Comment on above: Performed By: #### C BC #### [facility] [address] [place] [address] Dr. Yogi Naidu Hematocrit (Bld) [Volume fraction] 50.1 % Normal 42.0-54.0 [facility] Comment on above: Performed By: #### C BC #### [facility] [address] [place] [address] Dr. Yogi Naidu Hemoglobin (Bld) [Mass/Vol] 16.2 g/dL Normal 14.0-18.0 [facility] Comment on above: Performed By: #### C BC #### [facility] [address] [place] [address] Dr. Yogi Naidu IG # 0.03 10e3/ul Normal 0.00-0.03 [facility] Comment on above: Performed By: #### C BC #### [facility] [address] [place] [address] Dr. Yogi Naidu IG % 0.4 % Normal 0.0-0.5 [facility] Comment on above: Performed By: #### C BC #### [facility] [address] [place] [address] Dr. Yogi Naidu LYMPH # 0.7 103/ul Critically low 1.2-3.8 [facility] Comment on above: Performed By: #### C BC #### [facility] [address] [place] [address] Dr. Yogi Naidu Lymphocytes/100 WBC (Bld) 11.0 % Critically low 20.5-60.0 [facility] Comment on above: Performed By: #### C BC #### [facility] [address] [place] [address] Dr. Yogi Naidu MANUAL DIFF REQ NO Normal [facility] Comment on above: Performed By: #### C BC #### [facility] [address] [place] [address] Dr. Yogi Naidu MCH (RBC) [Entitic mass] 29.9 pg Normal 25.9-34.0 [facility] Comment on above: Performed By: #### C BC #### [facility] [address] [place] [address] Dr. Yogi Naidu MCHC (RBC) [Mass/Vol] 32.3 g/dL Normal 29.9-35.2 [facility] Comment on above: Performed By: #### C BC #### [facility] [address] [place] [address] Dr. Yogi Naidu MCV (RBC) [Entitic vol] 92.6 fL Normal 80.0-94.0 [facility] Comment on above: Performed By: #### C BC #### [facility] [address] [place] [address] Dr. Yogi Naidu MONO # 0.4 103/ul Normal 0.3-0.8 [facility] Comment on above: Performed By: #### C BC #### [facility] [address] [place] [address] Dr. Yogi Naidu Monocytes/100 WBC (Bld) 5.7 % Normal 1.7-12.0 [facility] Comment on above: Performed By: #### C BC #### [facility] [address] [place] [address] Dr. Yogi Naidu NEUT # 5.3 103/ul Normal 1.4-6.5 [facility] Comment on above: Performed By: #### C BC #### [facility] [address] [place] [address] Dr. Yogi Naidu Neutrophils/100 WBC (Bld) 79.4 % Critically high 43.0-75.0 [facility] Comment on above: Performed By: #### C BC #### [facility] [address] [place] [address] Dr. Yogi Naidu Platelet mean volume (Bld) [Entitic vol] 9.7 fL Normal 9.5-13.5 [facility] Comment on above: Performed By: #### C BC #### [facility] [address] [place] [address] Dr. Yogi Naidu PLT 206 103/ul Normal 150-450 [facility] Comment on above: Performed By: #### C BC #### [facility] [address] [place] [address] Dr. Yogi Naidu RBC 5.41 106/ul Normal 4.70-6.10 [facility] Comment on above: Performed By: #### C BC #### [facility] [address] [place] [address] Dr. Yogi Naidu WBC 6.7 103/ul Normal 4.0-11.0 [facility] Comment on above: Performed By: #### C BC #### [facility] [address] [place] [address] Dr. Yogi Naidu GGTon 07-22-2022 Gamma glutamyl transferase [Catalytic activity/Vol] 30 U/L Normal 15-85 [facility] Comment on above: Performed By: #### B OX #### [facility] [address] [place] [address] Dr. Yogi Naidu LIPID PROFILEon 07-22-2022 CHOL-HDL RATIO NORM SEE BELOW Normal [facility] Comment on above: Result Comment: 3.3 - 4.4 LOW RISK 4.4 - 7.1 AVERAGE RISK 7.1 - 11.0 MODERATE RISK >11.0 HIGH RISK Performed By: #### C MP, MG, PHOS, GGT #### [facility] [address] [place] [address] Dr. Yogi Naidu Cholesterol [Mass/Vol] 188 mg/dL Normal <=200 [facility] Comment on above: Performed By: #### C MP, MG, PHOS, GGT #### [facility] [address] [place] [address] Dr. Yogi Naidu Cholesterol in HDL [Mass/Vol] 48 mg/dL Normal 40-60 [facility] Comment on above: Performed By: #### C MP, MG, PHOS, GGT #### [facility] [address] [place] [address] Dr. Yogi Naidu Cholesterol in LDL [Mass/Vol] 123.8 mg/dL Normal [facility] Comment on above: Performed By: #### C MP, MG, PHOS, GGT #### [facility] [address] [place] [address] Dr. Yogi Naidu Cholesterol.total/Choles terol in HDL [Mass ratio] 3.9 {ratio} Normal [facility] Comment on above: Performed By: #### C MP, MG, PHOS, GGT #### [facility] [address] [place] [address] Dr. Yogi Naidu HDL NORMAL > or = 60 mg/dl - LO W CARDIOVASCULAR RISK <40 mg/dl - HIGH CARDIOVASCULAR RISK Normal [facility] Comment on above: Performed By: #### C MP, MG, PHOS, GGT #### [facility] [address] [place] [address] Dr. Yogi Naidu LDL CALC NORMAL SEE BELOW Normal [facility] Comment on above: Result Comment: <100 mg/dl OPTIMAL 100 - 129 mg/dl NEAR OR ABOVE OPTIMAL 130 - 159 mg/dl BORDERLINE HIGH 160 - 189 mg/dl HIGH >190 mg/dl VERY HIGH Performed By: #### C MP, MG, PHOS, GGT #### [facility] [address] [address] [address] Yogi Naidu Triglyceride [Mass/Vol] 81 mg/dL Normal <=150 T [facility] Comment on above: Performed By: #### C MP, MG, PHOS, GGT #### [facility] [address] [place] [address] Dr. Yogi Naidu VLDL CALC 16.2 mg/dL Normal [facility] Comment on above: Performed By: #### C MP, MG, PHOS, GGT #### [facility] [address] [place] [address] Dr. Yogi Naidu MAGNESIUMon 07-22-2022 Magnesium [Mass/Vol] 1.7 mg/dL Critically low 1.8-2.4 [facility] Comment on above: Performed By: #### B OX #### [facility] [address] [place] [address] Dr. Yogi Naidu PHOSPHORUSon 07-22-2022 Phosphate [Mass/Vol] 2.8 mg/dL Normal 2.6-4.7 [facility] Comment on above: Performed By: #### C MP, MG, PHOS, GGT #### [facility] [address] [place] [address] Dr. Yogi Naidu PROF 14(COMP METB)on 023 Albumin [Mass/Vol] 4.2 g/dL Normal 3.4-5.0 [facility] Comment on above: Performed By: #### C MP, MG, PHOS, GGT #### [facility] [address] [place] [address] Dr. Yogi Naidu Albumin/Globulin [Mass ratio] 1.7 {ratio} Normal [facility] Comment on above: Performed By: #### C MP, MG, PHOS, GGT #### [facility] [address] [place] [address] Dr. Yogi Naidu ALP [Catalytic activity/Vol] 72 U/L Normal 46-116 [facility] Comment on above: Performed By: #### C MP, MG, PHOS, GGT #### [facility] [address] [place] [address] Dr. Yogi Naidu ALT [Catalytic activity/Vol] 14 U/L Critically low 16-63 [facility] Comment on above: Performed By: #### C MP, MG, PHOS, GGT #### [facility] [address] [place] [address] Dr. Yogi Naidu Anion gap [Moles/Vol] 11.1 mmol/L Normal [facility] Comment on above: Performed By: #### C MP, MG, PHOS, GGT #### [facility] [address] [place] [address] Dr. Yogi Naidu AST [Catalytic activity/Vol] 11 U/L Critically low 15-37 [facility] Comment on above: Performed By: #### C MP, MG, PHOS, GGT #### [facility] [address] [address] [address] Yogi Naidu Bilirubin [Mass/Vol] 0.7 mg/dL Normal 0.2-1.0 [facility] Comment on above: Performed By: #### C MP, MG, PHOS, GGT #### [facility] [address] [place] [address] Dr. Yogi Naidu Calcium [Mass/Vol] 9.3 mg/dL Normal 8.5-10.1 [facility] Comment on above: Performed By: #### C MP, MG, PHOS, GGT #### [facility] [address] [place] [address] Dr. Yogi Naidu Chloride [Moles/Vol] 106 mmol/L Normal 98-107 [facility] Comment on above: Performed By: #### C MP, MG, PHOS, GGT #### [facility] [address] [place] [address] Dr. Yogi Naidu CO2 [Moles/Vol] 29.2 mmol/L Normal 21.0-32.0 [facility] Comment on above: Performed By: #### C MP, MG, PHOS, GGT #### [facility] [address] [place] [address] Dr. Yogi Naidu Creatinine [Mass/Vol] 1.08 mg/dL Normal 0.70-1.30 [facility] Comment on above: Performed By: #### C MP, MG, PHOS, GGT #### [facility] [address] [place] [address] Dr. Yogi Naidu EGFR-AF BOTSWANAN >60 Normal >=[address] [facility] Comment on above: Performed By: #### C MP, MG, PHOS, GGT #### [facility] [address] [place] [address] Dr. Yogi Naidu EGFR-NON AF BOTSWANAN >60 Normal >=60 [facility] Comment on above: Performed By: #### C MP, MG, PHOS, GGT #### [facility] [address] [place] [address] Dr. Yogi Naidu Globulin (S) [Mass/Vol] 2.5 g/dL Normal T [facility] Comment on above: Performed By: #### C MP, MG, PHOS, GGT #### [facility] [address] [place] [address] Dr. Yogi Naidu Glucose [Mass/Vol] 90 mg/dL Normal 74-106 [facility] Comment on above: Performed By: #### C MP, MG, PHOS, GGT #### [facility] [address] [place] [address] Dr. Yogi Naidu Potassium [Moles/Vol] 4.3 mmol/L Normal 3.5-5.1 [facility] Comment on above: Performed By: #### C MP, MG, PHOS, GGT #### [facility] [address] [place] [address] Dr. Yogi Naidu Protein [Mass/Vol] 6.7 g/dL Normal 6.4-8.2 [facility] Comment on above: Performed By: #### C MP, MG, PHOS, GGT #### [facility] [address] [place] [address] Dr. Yogi Naidu Sodium [Moles/Vol] 142 mmol/L Normal 136-145 [facility] Comment on above: Performed By: #### C MP, MG, PHOS, GGT #### [facility] [address] [place] [address] Dr. Yogi Naidu Urea nitrogen [Mass/Vol] 23.0 mg/dL Critically high 7.0-18 .0 [facility] Comment on above: Performed By: #### C MP, MG, PHOS, GGT #### [facility] [address] [place] [address] Dr. Yogi Naidu Urea nitrogen/Creatinine [Mass ratio] 21.3 mg/mg Normal [facility] Comment on above: Performed By: #### C MP, MG, PHOS, GGT #### [facility] [address] [place] [address] Dr. Yogi Naidu BOX TEST SENT OUTon 06-16-19 23 SENT TO REF LAB 06/16/2022 Normal [facility] Comment on above: Performed By: #### E MERLE DE OLIVEIRA #### [facility] [address] [address] [address] Yogi Naidu CBC AUTO DIFFon 06-16-2022 BASO # 0.1 103/ul Normal 0.0-0.1 [facility] Comment on above: Performed By: #### C BC #### [facility] [address] [address] [address] Yogi Naidu Basophils/100 WBC (Bld) 1.0 % Normal 0.2-2.0 [facility] Comment on above: Performed By: #### C BC #### [facility] [address] [place] [address] Dr. Yogi Naidu EO # 0.2 103/ul Normal 0.0-0.7 [facility] Comment on above: Performed By: #### C BC #### [facility] [address] [address] [address] Yogi Naidu Eosinophils/100 WBC (Bld) 2.5 % Normal 0.9-7.0 [facility] Comment on above: Performed By: #### C BC #### [facility] [address] [place] [address] Dr. Yogi Naidu Erythrocyte distribution width (RBC) [Ratio] 14.3 % Normal 11.0-15.0 [facility] Comment on above: Performed By: #### C BC #### [facility] [address] [place] [address] Dr. Yogi Naidu Hematocrit (Bld) [Volume fraction] 44.7 % Normal 42.0-54.0 [facility] Comment on above: Performed By: #### C BC #### [facility] [address] [place] [address] Dr. Yogi Naidu Hemoglobin (Bld) [Mass/Vol] 14.8 g/dL Normal 14.0-18.0 [facility] Comment on above: Performed By: #### C BC #### [facility] [address] [address] [address] Yogi Naidu IG # 0.01 10e3/ul Normal 0.00-0.03 [facility] Comment on above: Performed By: #### C BC #### [facility] [address] [address] [address] Yogi Naidu IG % 0.2 % Normal 0.0-0.5 [facility] Comment on above: Performed By: #### C BC #### [facility] [address] [place] [address] Dr. Yogi Naidu LYMPH # 0.7 103/ul Critically low 1.2-3.8 [facility] Comment on above: Performed By: #### C BC #### [facility] [address] [place] [address] Dr. Yogi Naidu Lymphocytes/100 WBC (Bld) 12.4 % Critically low 20.5-60.0 [facility] Comment on above: Performed By: #### C BC #### [facility] [address] [place] [address] Dr. Yogi Naidu MANUAL DIFF REQ NO Normal [facility] Comment on above: Performed By: #### C BC #### [facility] [address] [place] [address] Dr. Yogi Naidu MCH (RBC) [Entitic mass] 29.5 pg Normal 25.9-34.0 [facility] Comment on above: Performed By: #### C BC #### [facility] [address] [place] [address] Dr. Yogi Naidu MCHC (RBC) [Mass/Vol] 33.1 g/dL Normal 29.9-35.2 [facility] Comment on above: Performed By: #### C BC #### [facility] [address] [place] [address] Dr. Yogi Naidu MCV (RBC) [Entitic vol] 89.2 fL Normal 80.0-94.0 [facility] Comment on above: Performed By: #### C BC #### [facility] [address] [place] [address] Dr. Yogi Naidu MONO # 0.4 103/ul Normal 0.3-0.8 [facility] Comment on above: Performed By: #### C BC #### [facility] [address] [place] [address] Dr. Yogi Naidu Monocytes/100 WBC (Bld) 5.9 % Normal 1.7-12.0 [facility] Comment on above: Performed By: #### C BC #### [facility] [address] [place] [address] Dr. Yogi Naidu NEUT # 4.6 103/ul Normal 1.4-6.5 [facility] Comment on above: Performed By: #### C BC #### [facility] [address] [place] [address] Dr. Yogi Naidu Neutrophils/100 WBC (Bld) 78.0 % Critically high 43.0-75.0 [facility] Comment on above: Performed By: #### C BC #### [facility] [address] [place] [address] Dr. Yogi Naidu Platelet mean volume (Bld) [Entitic vol] 9.1 fL Critically low 9.5-13.5 [facility] Comment on above: Performed By: #### C BC #### [facility] [address] [place], [place] [id number] Dr. Yogi Naidu PLT 190 103/ul Normal 150-450 [facility] Comment on above: Performed By: #### C BC #### [facility] [address] [place] [address] Dr. Yogi Naidu RBC 5.01 106/ul Normal 4.70-6.10 [facility] Comment on above: Performed By: #### C BC #### [facility] [address] [place] [address] Dr. Yogi Naidu WBC 5.9 103/ul Normal 4.0-11.0 [facility] Comment on above: Performed By: #### C BC #### [facility] [address] [place] [address] Dr. Yogi Naidu GGTon 06-16-2022 Gamma glutamyl transferase [Catalytic activity/Vol] 28 U/L Normal 15-85 [facility] Comment on above: Performed By: #### C MP, MG, PHOS, GGT #### [facility] [address] [place] [address] Dr. Yogi Naidu MAGNESIUMon 06-16-2022 Magnesium [Mass/Vol] 1.6 mg/dL Critically low 1.8-2.4 [facility] Comment on above: Performed By: #### C MP, MG, PHOS, GGT #### [facility] [address] [place] [address] Dr. Yogi Naidu PHOSPHORUSon 06-16-2022 Phosphate [Mass/Vol] 3.2 mg/dL Normal 2.6-4.7 [facility] Comment on above: Performed By: #### C MP, MG, PHOS, GGT #### [facility] [address] [place] [address] Dr. Yogi Naidu PROF 14(COMP METB)on 023 Albumin [Mass/Vol] 3.8 g/dL Normal 3.4-5.0 [facility] Comment on above: Performed By: #### C MP, MG, PHOS, GGT #### [facility] [address] [place] [address] Dr. Yogi Naidu Albumin/Globulin [Mass ratio] 1.5 {ratio} Normal [facility] Comment on above: Performed By: #### C MP, MG, PHOS, GGT #### [facility] [address] [place] [address] Dr. Yogi Naidu ALP [Catalytic activity/Vol] 74 U/L Normal 46-116 [facility] Comment on above: Performed By: #### C MP, MG, PHOS, GGT #### [facility] [address] [place] [address] Dr. Yogi Naidu ALT [Catalytic activity/Vol] 13 U/L Critically low 16-63 [facility] Comment on above: Performed By: #### C MP, MG, PHOS, GGT #### [facility] [address] [address] [address] Yogi Naidu Anion gap [Moles/Vol] 10.8 mmol/L Normal [facility] Comment on above: Performed By: #### C MP, MG, PHOS, GGT #### [facility] [address] [place] [address] Dr. Yogi Naidu AST [Catalytic activity/Vol] 15 U/L Normal 15-37 [facility] Comment on above: Performed By: #### C MP, MG, PHOS, GGT #### [facility] [address] [place] [address] Dr. Yogi Naidu Bilirubin [Mass/Vol] 0.8 mg/dL Normal 0.2-1.0 [facility] Comment on above: Performed By: #### C MP, MG, PHOS, GGT #### [facility] [address] [place] [address] Dr. Yogi Naidu Calcium [Mass/Vol] 8.9 mg/dL Normal 8.5-10.1 [facility] Comment on above: Performed By: #### C MP, MG, PHOS, GGT #### [facility] [address] [address] [address] Yogi Naidu Chloride [Moles/Vol] 108 mmol/L Critically high 98-107 [facility] Comment on above: Performed By: #### C MP, MG, PHOS, GGT #### [facility] [address] [place] [address] Dr. Yogi Naidu CO2 [Moles/Vol] 27.6 mmol/L Normal 21.0-32.0 [facility] Comment on above: Performed By: #### C MP, MG, PHOS, GGT #### [facility] [address] [place] [address] Dr. Yogi Naidu Creatinine [Mass/Vol] 1.12 mg/dL Normal 0.70-1.30 [facility] Comment on above: Performed By: #### C MP, MG, PHOS, GGT #### [facility] [address] [place] [address] Dr. Yogi Naidu EGFR-AF BOTSWANAN >60 Normal >=60 [facility] Comment on above: Performed By: #### C MP, MG, PHOS, GGT #### [facility] [address] [place] [address] Dr. Yogi Naidu EGFR-NON AF BOTSWANAN >60 Normal >=60 [facility] [facility] Comment on above: Performed By: #### C MP, MG, PHOS, GGT #### [facility] [address] [place] [address] Dr. Yogi Naidu Globulin (S) [Mass/Vol] 2.5 g/dL Normal T [facility] Comment on above: Performed By: #### C MP, MG, PHOS, GGT #### [facility] [address] [place] [address] Dr. Yogi Naidu Glucose [Mass/Vol] 95 mg/dL Normal 74-106 [facility] Comment on above: Performed By: #### C MP, MG, PHOS, GGT #### [facility] [address] [place] [address] Dr. Yogi Naidu Potassium [Moles/Vol] 4.4 mmol/L Normal 3.5-5.1 [facility] Comment on above: Performed By: #### C MP, MG, PHOS, GGT #### [facility] [address] [place] [address] Dr. Yogi Naidu Protein [Mass/Vol] 6.3 g/dL Critically low 6.4-8.2 [facility] Comment on above: Performed By: #### C MP, MG, PHOS, GGT #### [facility] [address] [place] [address] Dr. Yogi Naidu Sodium [Moles/Vol] 142 mmol/L Normal 136-145 [facility] Comment on above: Performed By: #### C MP, MG, PHOS, GGT #### [facility] [address] [place] [address] Dr. Yogi Naidu Urea nitrogen [Mass/Vol] 24.0 mg/dL Critically high 7.0-18 .0 [facility] Comment on above: Performed By: #### C MP, MG, PHOS, GGT #### [facility] [address] [place] [address] Dr. Yogi Naidu Urea nitrogen/Creatinine [Mass ratio] 21.4 mg/mg Normal [facility] Comment on above: Performed By: #### C MP, MG, PHOS, GGT #### [facility] [address] [place] [address] Dr. Yogi Naidu BOX TEST SENT OUTon 05-19-20 22 SENT TO REF LAB 05/19/2022 Normal [facility] Comment on above: Performed By: #### E RURSONUICRO #### [facility] [address] [place] [address] Dr. Yogi Naidu CBC AUTO DIFFon 05-19-2022 BASO # 0.1 103/ul Normal 0.0-0.1 [facility] Comment on above: Performed By: #### C MP, MG, PHOS, GGT #### [facility] [address] [place] [address] Dr. Yogi Naidu Basophils/100 WBC (Bld) 1.2 % Normal 0.2-2.0 T [facility] Comment on above: Performed By: #### C MP, MG, PHOS, GGT #### [facility] [address] [place] [address] Dr. Yogi Naidu EO # 0.3 103/ul Normal 0.0-0.7 [facility] Comment on above: Performed By: #### C MP, MG, PHOS, GGT #### [facility] [address] [place] [address] Dr. Yogi Naidu Eosinophils/100 WBC (Bld) 4.2 % Normal 0.9-7.0 [facility] Comment on above: Performed By: #### C MP, MG, PHOS, GGT #### [facility] [address] [place] [address] Dr. Yogi Naidu Erythrocyte distribution width (RBC) [Ratio] 14.2 % Normal 11.0-15.0 [facility] Comment on above: Performed By: #### C MP, MG, PHOS, GGT #### [facility] [address] [place] [address] Dr. Yogi Naidu Hematocrit (Bld) [Volume fraction] 45.5 % Normal 42.0-54.0 [facility] Comment on above: Performed By: #### C MP, MG, PHOS, GGT #### [facility] [address] [place] [address] Dr. Yogi Naidu Hemoglobin (Bld) [Mass/Vol] 15.3 g/dL Normal 14.0-18.0 [facility] Comment on above: Performed By: #### C MP, MG, PHOS, GGT #### [facility] [address] [place] [address] Dr. Yogi Naidu IG # 0.02 10e3/ul Normal 0.00-0.03 [facility] Comment on above: Performed By: #### C MP, MG, PHOS, GGT #### [facility] [address] [place] [address] Dr. Yogi Naidu IG % 0.3 % Normal 0.0-0.5 [facility] Comment on above: Performed By: #### C MP, MG, PHOS, GGT #### [facility] [address] [place] [address] Dr. Yogi Naidu LYMPH # 0.7 103/ul Critically low 1.2-3.8 [facility] Comment on above: Performed By: #### C MP, MG, PHOS, GGT #### [facility] [address] [place] [address] Dr. Yogi Naidu Lymphocytes/100 WBC (Bld) 10.1 % Critically low 20.5-60.0 [facility] Comment on above: Performed By: #### C MP, MG, PHOS, GGT #### [facility] [address] [place] [address] Dr. Yogi Naidu MANUAL DIFF REQ NO Normal [facility] Comment on above: Performed By: #### C MP, MG, PHOS, GGT #### [facility] [address] [place] [address] Dr. Yogi Naidu MCH (RBC) [Entitic mass] 29.7 pg Normal 25.9-34.0 [facility] Comment on above: Performed By: #### C MP, MG, PHOS, GGT #### [facility] [address] [place] [address] Dr. Yogi Naidu MCHC (RBC) [Mass/Vol] 33.6 g/dL Normal 29.9-35.2 [facility] Comment on above: Performed By: #### C MP, MG, PHOS, GGT #### [facility] [address] [place] [address] Dr. Yogi Naidu MCV (RBC) [Entitic vol] 88.3 fL Normal 80.0-94.0 [facility] Comment on above: Performed By: #### C MP, MG, PHOS, GGT #### [facility] [address] [place] [address] Dr. Yogi Naidu MONO # 0.5 103/ul Normal 0.3-0.8 [facility] Comment on above: Performed By: #### C MP, MG, PHOS, GGT #### [facility] [address] [place] [address] Dr. Yogi Naidu Monocytes/100 WBC (Bld) 6.6 % Normal 1.7-12.0 [facility] Comment on above: Performed By: #### C MP, MG, PHOS, GGT #### [facility] [address] [place] [address] Dr. Yogi Naidu NEUT # 5.7 103/ul Normal 1.4-6.5 [facility] Comment on above: Performed By: #### C MP, MG, PHOS, GGT #### [facility] [address] [place] [address] Dr. Yogi Naidu Neutrophils/100 WBC (Bld) 77.6 % Critically high 43.0-75.0 [facility] Comment on above: Performed By: #### C MP, MG, PHOS, GGT #### [facility] [address] [place] [address] Dr. Yogi Naidu Platelet mean volume (Bld) [Entitic vol] 9.3 fL Critically low 9.5-13.5 [facility] Comment on above: Performed By: #### C MP, MG, PHOS, GGT #### [facility] [address] [place] [address] Dr. Yogi Naidu PLT 176 103/ul Normal 150-450 [facility] Comment on above: Performed By: #### C MP, MG, PHOS, GGT #### [facility] [address] [place] [address] Dr. Yogi Naidu RBC 5.15 106/ul Normal 4.70-6.10 [facility] Comment on above: Performed By: #### C MP, MG, PHOS, GGT #### [facility] [address] [place] [address] Dr. Yogi Naidu WBC 7.3 103/ul Normal 4.0-11.0 [facility] Comment on above: Performed By: #### C MP, MG, PHOS, GGT #### [facility] [address] [place] [address] Dr. Yogi Naidu GGTon 05-19-2022 Gamma glutamyl transferase [Catalytic activity/Vol] 32 U/L Normal 15-85 [facility] Comment on above: Performed By: #### C BC #### [facility] [address] [place] [address] Dr. Yogi Naidu MAGNESIUMon 05-19-2022 Magnesium [Mass/Vol] 1.9 mg/dL Normal 1.8-2.4 [facility] Comment on above: Performed By: #### C BC #### [facility] [address] [place] [address] Dr. Yogi Naidu PHOSPHORUSon 05-19-2022 Phosphate [Mass/Vol] 2.9 mg/dL Normal 2.6-4.7 [facility] Comment on above: Performed By: #### C BC #### [facility] [address] [place] [address] Dr. Yogi Naidu PROF 14(COMP METB)on 022 Albumin [Mass/Vol] 4.0 g/dL Normal 3.4-5.0 [facility] Comment on above: Performed By: #### C BC #### [facility] [address] [address] [address] Yogi Naidu Albumin/Globulin [Mass ratio] 1.6 {ratio} Normal [facility] Comment on above: Performed By: #### C BC #### [facility] [address] [address] [address] Yogi Naidu ALP [Catalytic activity/Vol] 79 U/L Normal 46-116 [facility] Comment on above: Performed By: #### C BC #### [facility] [address] [address] [address] Yogi Naidu ALT [Catalytic activity/Vol] 13 U/L Critically low 16-63 [facility] Comment on above: Performed By: #### C BC #### [facility] [address] [place] [address] Dr. Yogi Naidu Anion gap [Moles/Vol] 10.1 mmol/L Normal [facility] Comment on above: Performed By: #### C BC #### [facility] [address] [place] [address] Dr. Yogi Naidu AST [Catalytic activity/Vol] 13 U/L Critically low 15-37 [facility] Comment on above: Performed By: #### C BC #### [facility] [address] [place] [address] Dr. Yogi Naidu Bilirubin [Mass/Vol] 0.6 mg/dL Normal 0.2-1.0 [facility] Comment on above: Performed By: #### C BC #### [facility] [address] [place] [address] Dr. Yogi Naidu Calcium [Mass/Vol] 8.9 mg/dL Normal 8.5-10.1 [facility] Comment on above: Performed By: #### C BC #### [facility] [address] [place] [address] Dr. Yogi Naidu Chloride [Moles/Vol] 108 mmol/L Critically high 98-107 [facility] Comment on above: Performed By: #### C BC #### [facility] [address] [place], [place] [id number] Dr. Yogi Naidu CO2 [Moles/Vol] 29.2 mmol/L Normal 21.0-32.0 [facility] Comment on above: Performed By: #### C BC #### [facility] [address] [place] [address] Dr. Yogi Naidu Creatinine [Mass/Vol] 0.98 mg/dL Normal 0.70-1.30 [facility] Comment on above: Performed By: #### C BC #### [facility] [address] [place] [address] Dr. Yogi Naidu EGFR-AF BOTSWANAN >60 Normal >=[address] [facility] Comment on above: Performed By: #### C BC #### [facility] [address] [place] [address] Dr. Yogi Naidu EGFR-NON AF BOTSWANAN >60 Normal >=60 [facility] Comment on above: Performed By: #### C BC #### [facility] [address] [place] [address] Dr. Yogi Naidu Globulin (S) [Mass/Vol] 2.5 g/dL Normal T [facility] Comment on above: Performed By: #### C BC #### [facility] [address] [place] [address] Dr. Yogi Naidu Glucose [Mass/Vol] 92 mg/dL Normal 74-106 [facility] Comment on above: Performed By: #### C BC #### [facility] [address] [place] [address] Dr. Yogi Naidu Potassium [Moles/Vol] 4.3 mmol/L Normal 3.5-5.1 [facility] Comment on above: Performed By: #### C BC #### [facility] [address] [place] [address] Dr. Yogi Naidu Protein [Mass/Vol] 6.5 g/dL Normal 6.4-8.2 [facility] Comment on above: Performed By: #### C BC #### [facility] [address] [place] [address] Dr. Yogi Naidu Sodium [Moles/Vol] 143 mmol/L Normal 136-145 [facility] Comment on above: Performed By: #### C BC #### [facility] [address] [place] [address] Dr. Yogi Naidu Urea nitrogen [Mass/Vol] 24.0 mg/dL Critically high 7.0-18 .0 [facility] Comment on above: Performed By: #### C BC #### [facility] [address] [place] [address] Dr. Yogi Naidu Urea nitrogen/Creatinine [Mass ratio] 24.5 mg/mg Normal [facility] Comment on above: Performed By: #### C BC #### [facility] [address] [place] [address] Dr. Yogi Naidu HEP C RNA BY PCR QUANT (NON- GRAPHICAL) Won 04-22-2022 HCV Genotype RTNI Normal [facility] Comment on above: Result Comment: Not indicated Performed By: #### C BC #### [facility] [address] [place] [address] Dr. Yogi Naidu HCV log10 [facility] Comment on above: Result Comment: Unab le to calculate result since non-numeric result obtained for component test. Performed By: #### C BC #### [facility] [address] [place] [address] Dr. Yogi Naidu Hepatitis C Quantitation Not detected Normal [facility] Comment on above: Performed By: #### C BC #### [facility] [address] [place] [address] Dr. Yogi Naidu Test Information: Comment Normal [facility] Comment on above: Result Comment: The quantitative range of this assay is 15 IU/mL to 100 million IU/mL. Performed By: #### C BC #### [facility] [address] [place] [address] Dr. Yogi Naidu BOX TEST SENT OUTon 04-21-20 22 SENT TO REF LAB 04/21/2022 Normal [facility] Comment on above: Performed By: #### C BC #### [facility] [address] [place] [address] Dr. Yogi Naidu CBC AUTO DIFFon 04-21-2022 BASO # 0.1 103/ul Normal 0.0-0.1 [facility] Comment on above: Performed By: #### C MP, MG, PHOS, GGT #### [facility] [address] [place] [address] Dr. Yogi Naidu Basophils/100 WBC (Bld) 1.0 % Normal 0.2-2.0 [facility] Comment on above: Performed By: #### C MP, MG, PHOS, GGT #### [facility] [address] [place] [address] Dr. Yogi Naidu EO # 0.2 103/ul Normal 0.0-0.7 [facility] Comment on above: Performed By: #### C MP, MG, PHOS, GGT #### [facility] [address] [place] [address] Dr. Yogi Naidu Eosinophils/100 WBC (Bld) 2.7 % Normal 0.9-7.0 [facility] Comment on above: Performed By: #### C MP, MG, PHOS, GGT #### [facility] [address] [place] [address] Dr. Yogi Naidu Erythrocyte distribution width (RBC) [Ratio] 14.2 % Normal 11.0-15.0 [facility] Comment on above: Performed By: #### C MP, MG, PHOS, GGT #### [facility] [address] [place] [address] Dr. Yogi Naidu Hematocrit (Bld) [Volume fraction] 46.5 % Normal 42.0-54.0 [facility] Comment on above: Performed By: #### C MP, MG, PHOS, GGT #### [facility] [address] [place] [address] Dr. Yogi Naidu Hemoglobin (Bld) [Mass/Vol] 15.6 g/dL Normal 14.0-18.0 [facility] Comment on above: Performed By: #### C MP, MG, PHOS, GGT #### [facility] [address] [place] [address] Dr. Yogi Naidu IG # 0.03 10e3/ul Normal 0.00-0.03 [facility] Comment on above: Performed By: #### C MP, MG, PHOS, GGT #### [facility] [address] [place] [address] Dr. Yogi Naidu IG % 0.4 % Normal 0.0-0.5 [facility] Comment on above: Performed By: #### C MP, MG, PHOS, GGT #### [facility] [address] [place] [address] Dr. Yogi Naidu LYMPH # 0.8 103/ul Critically low 1.2-3.8 [facility] Comment on above: Performed By: #### C MP, MG, PHOS, GGT #### [facility] [address] [place] [address] Dr. Yogi Naidu Lymphocytes/100 WBC (Bld) 11.3 % Critically low 20.5-60.0 [facility] Comment on above: Performed By: #### C MP, MG, PHOS, GGT #### [facility] [address] [place] [address] Dr. Yogi Naidu MANUAL DIFF REQ NO Normal [facility] Comment on above: Performed By: #### C MP, MG, PHOS, GGT #### [facility] [address] [place] [address] Dr. Yogi Naidu MCH (RBC) [Entitic mass] 30.1 pg Normal 25.9-34.0 [facility] Comment on above: Performed By: #### C MP, MG, PHOS, GGT #### [facility] [address] [place] [address] Dr. Yogi Naidu MCHC (RBC) [Mass/Vol] 33.5 g/dL Normal 29.9-35.2 [facility] Comment on above: Performed By: #### C MP, MG, PHOS, GGT #### [facility] [address] [place] [address] Dr. Yogi Naidu MCV (RBC) [Entitic vol] 89.6 fL Normal 80.0-94.0 [facility] Comment on above: Performed By: #### C MP, MG, PHOS, GGT #### [facility] [address] [place] [address] Dr. Yogi Naidu MONO # 0.4 103/ul Normal 0.3-0.8 [facility] Comment on above: Performed By: #### C MP, MG, PHOS, GGT #### [facility] [address] [place] [address] Dr. Yogi Naidu Monocytes/100 WBC (Bld) 6.0 % Normal 1.7-12.0 [facility] Comment on above: Performed By: #### C MP, MG, PHOS, GGT #### [facility] [address] [place] [address] Dr. Yogi Naidu NEUT # 5.5 103/ul Normal 1.4-6.5 [facility] Comment on above: Performed By: #### C MP, MG, PHOS, GGT #### [facility] [address] [place] [address] Dr. Yogi Naidu Neutrophils/100 WBC (Bld) 78.6 % Critically high 43.0-75.0 [facility] Comment on above: Performed By: #### C MP, MG, PHOS, GGT #### [facility] [address] [place] [address] Dr. Yogi Naidu Platelet mean volume (Bld) [Entitic vol] 10.1 fL Normal 9.5-13.5 [facility] Comment on above: Performed By: #### C MP, MG, PHOS, GGT #### [facility] [address] [place] [address] Dr. Yogi Naidu PLT 204 103/ul Normal 150-450 [facility] Comment on above: Performed By: #### C MP, MG, PHOS, GGT #### [facility] [address] [place] [address] Dr. Yogi Naidu RBC 5.19 106/ul Normal 4.70-6.10 [facility] Comment on above: Performed By: #### C MP, MG, PHOS, GGT #### [facility] [address] [place] [address] Dr. Yogi Naidu WBC 7.0 103/ul Normal 4.0-11.0 [facility] Comment on above: Performed By: #### C MP, MG, PHOS, GGT #### [facility] [address] [place] [address] Dr. Yogi Naidu GGTon 04-21-2022 Gamma glutamyl transferase [Catalytic activity/Vol] 34 U/L Normal 15-85 [facility] Comment on above: Performed By: #### MERLE CULVER #### [facility] [address] [place] [address] Dr. Yogi Naidu LIPID PROFILEon 04-21-2022 CHOL-HDL RATIO NORM SEE BELOW Normal [facility] Comment on above: Result Comment: 3.3 - 4.4 LOW RISK 4.4 - 7.1 AVERAGE RISK 7.1 - 11.0 MODERATE RISK >11.0 HIGH RISK Performed By: #### MERLE CULVER #### [facility] [address] [place] [address] Dr. Yogi Naidu Cholesterol [Mass/Vol] 190 mg/dL Normal <=200 [facility] Comment on above: Performed By: #### MERLE CULVER #### [facility] [address] [place] [address] Dr. Yogi Naidu Cholesterol in HDL [Mass/Vol] 49 mg/dL Normal 40-60 [facility] Comment on above: Performed By: #### MERLE CULVER #### [facility] [address] [place] [address] Dr. Yogi Naidu Cholesterol in LDL [Mass/Vol] 127.8 mg/dL Normal [facility] Comment on above: Performed By: #### MERLE CULVER #### [facility] [address] [place] [address] Dr. Yogi Naidu Cholesterol.total/Choles terol in HDL [Mass ratio] 3.9 {ratio} Normal [facility] Comment on above: Performed By: #### MERLE CULVER #### [facility] [address] [place] [address] Dr. Yogi Naidu HDL NORMAL > or = 60 mg/dl - LO W CARDIOVASCULAR RISK <40 mg/dl - HIGH CARDIOVASCULAR RISK Normal [facility] Comment on above: Performed By: #### MERLE CULVER #### [facility] [address] [place] [address] Dr. Yogi Naidu LDL CALC NORMAL SEE BELOW Normal [facility] Comment on above: Result Comment: <100 mg/dl OPTIMAL 100 - 129 mg/dl NEAR OR ABOVE OPTIMAL 130 - 159 mg/dl BORDERLINE HIGH 160 - 189 mg/dl HIGH >190 mg/dl VERY HIGH Performed By: #### MERLE CULVER #### [facility] [address] [place] [address] Dr. Yogi Naidu Triglyceride [Mass/Vol] 66 mg/dL Normal <=150 [facility] Comment on above: Performed By: #### MERLE CULVER #### [facility] [address] [place] [address] Dr. Yogi Naidu VLDL CALC 13.2 mg/dL Normal [facility] Comment on above: Performed By: #### DASH CULVERRO #### [facility] [address] [place] [address] Dr. Yogi Naidu MAGNESIUMon 04-21-2022 Magnesium [Mass/Vol] 1.8 mg/dL Normal 1.8-2.4 [facility] Comment on above: Performed By: #### MERLE CULVER #### [facility] [address] [place] [address] Dr. Yogi Naidu PHOSPHORUSon 04-21-2022 Phosphate [Mass/Vol] 3.4 mg/dL Normal 2.6-4.7 [facility] Comment on above: Performed By: #### DASH CULVERRO #### [facility] [address] [place] [address] Dr. Yogi Naidu PROF 14(COMP METB)on 022 Albumin [Mass/Vol] 4.0 g/dL Normal 3.4-5.0 [facility] Comment on above: Performed By: #### E RUR, UMICRO #### [facility] [address] [address] [address] Yogi Naidu Albumin/Globulin [Mass ratio] 1.6 {ratio} Normal [facility] Comment on above: Performed By: #### E YENYR, UMICRO #### [facility] [address] [address] [address] Yogi Naidu ALP [Catalytic activity/Vol] 81 U/L Normal 46-116 [facility] Comment on above: Performed By: #### E YENYR, UMICRO #### [facility] [address] [address] [address] Yogi Naidu ALT [Catalytic activity/Vol] 14 U/L Critically low 16-63 [facility] Comment on above: Performed By: #### E ALVINO, UMICRO #### [facility] [address] [place] [address] Dr. Yogi Naidu Anion gap [Moles/Vol] 8.8 mmol/L Normal [facility] Comment on above: Performed By: #### E ALVINO, UMICRO #### [facility] [address] [place] [address] Dr. Yogi Naidu AST [Catalytic activity/Vol] 15 U/L Normal 15-37 [facility] Comment on above: Performed By: #### Vesta DE OLIVEIRA, UMICRO #### [facility] [address] [place] [address] Dr. Yogi Naidu Bilirubin [Mass/Vol] 0.6 mg/dL Normal 0.2-1.0 [facility] Comment on above: Performed By: #### Vesta DE OLIVEIRA, UMICRO #### [facility] [address] [address] [address] Yogi Naidu Calcium [Mass/Vol] 9.2 mg/dL Normal 8.5-10.1 [facility] Comment on above: Performed By: #### E ALVINO, UMICRO #### [facility] [address] [address] [address] Yogi Naidu Chloride [Moles/Vol] 106 mmol/L Normal 98-107 [facility] Comment on above: Performed By: #### Vesta DE OLIVEIRA UMICRO #### [facility] [address] [place] [address] Dr. Yogi Naidu CO2 [Moles/Vol] 28.5 mmol/L Normal 21.0-32.0 [facility] Comment on above: Performed By: #### Vesta DE OLIVEIRA UMICRO #### [facility] [address] [place] [address] Dr. Yogi Naidu Creatinine [Mass/Vol] 1.12 mg/dL Normal 0.70-1.30 [facility] Comment on above: Performed By: #### Vesta DE OLIVEIRA UMICRO #### [facility] [address] [place] [address] Dr. Yogi Naidu EGFR-AF BOTSWANAN >60 Normal >=60 [facility] Comment on above: Performed By: #### Vesta DE OLIVEIRA UMICRO #### [facility] [address] [place] [address] Dr. Yogi Naidu EGFR-NON AF BOTSWANAN >60 Normal >=60 [facility] Comment on above: Performed By: #### Vesta DE OLIVEIRA UMICRO #### [facility] [address] [place] [address] Dr. Yogi Naidu Globulin (S) [Mass/Vol] 2.5 g/dL Normal T [facility] Comment on above: Performed By: #### Vesta DE OLIVEIRA UMICRO #### [facility] [address] [place] [address] Dr. Yogi Naidu Glucose [Mass/Vol] 91 mg/dL Normal 74-106 [facility] Comment on above: Performed By: #### Vesta DE OLIVEIRA UMICRO #### [facility] [address] [place] [address] Dr. Yogi Naidu Potassium [Moles/Vol] 4.3 mmol/L Normal 3.5-5.1 [facility] Comment on above: Performed By: #### Vesta DE OLIVEIRA UMICRO #### [facility] [address] [place] [address] Dr. Yogi Naidu Protein [Mass/Vol] 6.5 g/dL Normal 6.4-8.2 [facility] Comment on above: Performed By: #### MERLE CULVER #### [facility] [address] [address] [address] Yogi Naidu Sodium [Moles/Vol] 139 mmol/L Normal 136-145 [facility] Comment on above: Performed By: #### DASH CULVERRO #### [facility] [address] [address] [address] Yogi Naidu Urea nitrogen [Mass/Vol] 25.0 mg/dL Critically high 7.0-18 .0 [facility] Comment on above: Performed By: #### MERLE CULVER #### [facility] [address] [place] [address] Dr. Yogi Naidu Urea nitrogen/Creatinine [Mass ratio] 22.3 mg/mg Normal [facility] Comment on above: Performed By: #### MERLE CULVER #### [facility] [address] [place] [address] Dr. Yogi Naidu Tobacco Screening.on 022 Adult depression screening assessment No [facility] [employer] [place] [address] DO Work Phone: Fall risk assessment a) No falls within the last year [facility] [employer] [place] [address] DO Work Phone: Tobacco use status CP b) No [facility] [employer] [place] [address] DO Work Phone: BOX TEST SENT OUTon 03-17-20 22 SENT TO REF LAB 03/17/2022 Normal [facility] Comment on above: Performed By: #### C MP, MG, PHOS, GGT #### [facility] [address] [place] [address] Dr. Yogi Naidu CBC W MANUAL DIFFon 03-17-20 22 ATYPICAL LYMPH # Normal [facility] Comment on above: Performed By: #### MERLE CULVER #### [facility] [address] [place] [address] Dr. Yogi Naidu ATYPICAL LYMPH % Normal [facility] Comment on above: Performed By: #### Vesta DE OLIVEIRA UMICRO #### [facility] [address] [place] [address] Dr. Yogi Naidu BAND # Normal 0.0-0.3 [facility] Comment on above: Performed By: #### E RUR, UMICRO #### [facility] [address] [place] [address] Dr. Yogi Naidu BAND % Normal 0-5 [facility] Comment on above: Performed By: #### E RUCarole UMICRO #### [facility] [address] [place] [address] Dr. Yogi Naidu BASOM # 0.00 103/ul Normal 0.00-0.10 [facility] Comment on above: Performed By: #### Vesta DE OLIVEIRA UMICRO #### [facility] [address] [place] [address] Dr. Yogi Naidu BASOM % 0.0 % Critically low 0.2-2.0 [facility] Comment on above: Performed By: #### Vesta DE OLIVEIRA UMICRO #### [facility] [address] [place] [address] Dr. Yogi Naidu BLAST # Normal [facility] Comment on above: Performed By: #### Vesta DE OLIVEIRA UMICRO #### [facility] [address] [place] [address] Dr. Yogi Naidu BLAST % Normal [facility] Comment on above: Performed By: #### Vesta DE OLIVEIRA UMICRO #### [facility] [address] [place] [address] Dr. Yogi Naidu CORRECTED WBC Normal 4.0-11.0 [facility] Comment on above: Performed By: #### Vesta RUCarole UMICRO #### [facility] [address] [place] [address] Dr. Yogi Naidu EOS # 0.20 103/ul Normal 0.00-0.70 [facility] Comment on above: Performed By: #### Vesta DE OLIVEIRA UMICRO #### [facility] [address] [address] [address] Yogi Naidu EOS% 3.0 % Normal 0.9-7.0 [facility] Comment on above: Performed By: #### DASH CULVERRO #### [facility] [address] [address] [address] Yogi Naidu HCT 45.6 % Normal 42.0-54.0 [facility] Comment on above: Performed By: #### DASH CULVERRO #### [facility] [address] [place] [address] Dr. Yogi Naidu HGB 15.2 g/dl Normal 14.0-18.0 [facility] Comment on above: Performed By: #### DASH CULVERRO #### [facility] [address] [place] [address] Dr. Yogi Naidu LYMPHM # 0.78 103/ul Critically low 1.20-3.80 [facility] Comment on above: Performed By: #### DASH CULVERRO #### [facility] [address] [place] [address] Dr. Yogi Naidu LYMPHM% 12.0 % Critically low 20.5-60.0 [facility] Comment on above: Performed By: #### DASH CULVERRO #### [facility] [address] [place] [address] Dr. Yogi Naidu MCH 30.4 pg Normal 25.9-34.0 [facility] Comment on above: Performed By: #### DASH CULVERRO #### [facility] [address] [place] [address] Dr. Yogi Naidu MCHC 33.3 g/dl Normal 29.9-35.2 [facility] Comment on above: Performed By: #### SONU CULVERICRO #### [facility] [address] [place] [address] Dr. Yogi Naidu MCV 91.2 fL Normal 80.0-94.0 [facility] Comment on above: Performed By: #### E MERLE DE OLIVEIRA #### [facility] [address] [place] [address] Dr. Yogi Naidu METAMYELOCYTE # Normal [facility] Comment on above: Performed By: #### MERLE CULVER #### [facility] [address] [place] [address] Dr. Yogi Niadu METAMYELOCYTE % Normal [facility] Comment on above: Performed By: #### MERLE CULVER #### [facility] [address] [place] [address] Dr. Yogi Naidu MONOM# 0.39 103/ul Normal 0.30-0.80 [facility] Comment on above: Performed By: #### MERLE CULVER #### [facility] [address] [place] [address] Dr. Yogi Naidu MONOM% 6.0 % Normal 1.7-12.0 [facility] Comment on above: Performed By: #### MERLE CULVER #### [facility] [address] [place] [address] Dr. Yogi Naidu MPV 9.6 fL Normal 9.5-13.5 [facility] Comment on above: Performed By: #### MERLE CULVER #### [facility] [address] [place] [address] Dr. Yogi Naidu MYELOCYTE # Normal [facility] Comment on above: Performed By: #### MERLE CULVER #### [facility] [address] [place] [address] Dr. Yogi Naidu MYELOCYTE % Normal [facility] Comment on above: Performed By: #### MERLE CULVER #### [facility] [address] [place] [address] Dr. Yogi Naidu NRBC Normal [facility] Comment on above: Performed By: #### MERLE CULVER #### [facility] [address] [place] [address] Dr. Yogi Naidu PLT 180 103/ul Normal 150-450 [facility] Comment on above: Performed By: #### Vesta YENYR, UMICRO #### [facility] [address] [place] [address] Dr. Yogi Naidu RBC 5.00 106/ul Normal 4.70-6.10 [facility] Comment on above: Performed By: #### E YENYR, UMICRO #### [facility] [address] [place] [address] Dr. Yogi Naidu RDW 14.1 % Normal 11.0-15.0 [facility] Comment on above: Performed By: #### E YENYR, UMICRO #### [facility] [address] [place] [address] Dr. Yogi Naidu SEG # 5.13 103/ul Normal 1.40-6.50 [facility] Comment on above: Performed By: #### Vesta DE OLIVEIRA, UMICRO #### [facility] [address] [place] [address] Dr. Yogi Naidu SEG % 79.0 % Critically high 43.0-75.0 [facility] Comment on above: Performed By: #### Vesta DE OLIVEIRA, UMICRO #### [facility] [address] [place] [address] Dr. Yogi Naidu WBC 6.5 103/ul Normal 4.0-11.0 [facility] Comment on above: Performed By: #### Vesta DE OLIVEIRA, UMICRO #### [facility] [address] [place] [address] Dr. Yogi Naidu GGTon 03-17-2022 Gamma glutamyl transferase [Catalytic activity/Vol] 37 U/L Normal 15-85 [facility] Comment on above: Performed By: #### C MP, MG, PHOS, GGT #### [facility] [address] [place] [address] Dr. Yogi Naidu MAGNESIUMon 03-17-2022 Magnesium [Mass/Vol] 1.8 mg/dL Normal 1.8-2.4 [facility] Comment on above: Performed By: #### C MP, MG, PHOS, GGT #### [facility] [address] [place] [address] Dr. Yogi Naidu PHOSPHORUSon 03-17-2022 Phosphate [Mass/Vol] 2.9 mg/dL Normal 2.6-4.7 [facility] Comment on above: Performed By: #### C MP, MG, PHOS, GGT #### [facility] [address] [place] [address] Dr. Yogi Naidu PROF 14(COMP METB)on 022 Albumin [Mass/Vol] 3.9 g/dL Normal 3.4-5.0 [facility] Comment on above: Performed By: #### C MP, MG, PHOS, GGT #### [facility] [address] [address] [address] Yogi Naidu Albumin/Globulin [Mass ratio] 1.6 {ratio} Normal [facility] Comment on above: Performed By: #### C MP, MG, PHOS, GGT #### [facility] [address] [place] [address] Dr. Yogi Naidu ALP [Catalytic activity/Vol] 75 U/L Normal 46-116 [facility] Comment on above: Performed By: #### C MP, MG, PHOS, GGT #### [facility] [address] [place] [address] Dr. Yogi Naidu ALT [Catalytic activity/Vol] 20 U/L Normal 16-63 [facility] Comment on above: Performed By: #### C MP, MG, PHOS, GGT #### [facility] [address] [address] [address] Yogi Naidu Anion gap [Moles/Vol] 9.6 mmol/L Normal [facility] Comment on above: Performed By: #### C MP, MG, PHOS, GGT #### [facility] [address] [place] [address] Dr. Yogi Naidu AST [Catalytic activity/Vol] 13 U/L Critically low 15-37 [facility] Comment on above: Performed By: #### C MP, MG, PHOS, GGT #### [facility] [address] [place] [address] Dr. Yogi Naidu Bilirubin [Mass/Vol] 0.7 mg/dL Normal 0.2-1.0 [facility] Comment on above: Performed By: #### C MP, MG, PHOS, GGT #### [facility] [address] [place] [address] Dr. Yogi Naidu Calcium [Mass/Vol] 9.0 mg/dL Normal 8.5-10.1 [facility] Comment on above: Performed By: #### C MP, MG, PHOS, GGT #### [facility] [address] [place] [address] Dr. Yogi Naidu Chloride [Moles/Vol] 108 mmol/L Critically high 98-107 [facility] Comment on above: Performed By: #### C MP, MG, PHOS, GGT #### [facility] [address] [place] [address] Dr. Yogi Naidu CO2 [Moles/Vol] 28.3 mmol/L Normal 21.0-32.0 [facility] Comment on above: Performed By: #### C MP, MG, PHOS, GGT #### [facility] [address] [place] [address] Dr. Yogi Naidu Creatinine [Mass/Vol] 1.17 mg/dL Normal 0.70-1.30 [facility] Comment on above: Performed By: #### C MP, MG, PHOS, GGT #### [facility] [address] [place] [address] Dr. Yogi Naidu EGFR-AF BOTSWANAN >60 Normal >=60 [facility] Comment on above: Performed By: #### C MP, MG, PHOS, GGT #### [facility] [address] [place] [address] Dr. Yogi Naidu EGFR-NON AF BOTSWANAN >60 Normal >=60 [facility] Comment on above: Performed By: #### C MP, MG, PHOS, GGT #### [facility] [address] [place] [address] Dr. Yogi Naidu Globulin (S) [Mass/Vol] 2.4 g/dL Normal T [facility] Comment on above: Performed By: #### C MP, MG, PHOS, GGT #### [facility] [address] [place] [address] Dr. Yogi Naidu Glucose [Mass/Vol] 102 mg/dL Normal 74-106 [facility] Comment on above: Performed By: #### C MP, MG, PHOS, GGT #### [facility] [address] [place] [address] Dr. Yogi Naidu Potassium [Moles/Vol] 4.9 mmol/L Normal 3.5-5.1 [facility] Comment on above: Performed By: #### C MP, MG, PHOS, GGT #### [facility] [address] [place] [address] Dr. Yogi Naidu Protein [Mass/Vol] 6.3 g/dL Critically low 6.4-8.2 [facility] Comment on above: Performed By: #### C MP, MG, PHOS, GGT #### [facility] [address] [place] [address] Dr. Yogi Naidu Sodium [Moles/Vol] 141 mmol/L Normal 136-145 [facility] Comment on above: Performed By: #### C MP, MG, PHOS, GGT #### [facility] [address] [place] [address] Dr. oYgi Naidu Urea nitrogen [Mass/Vol] 22.0 mg/dL Critically high 7.0-18 .0 [facility] Comment on above: Performed By: #### C MP, MG, PHOS, GGT #### [facility] [address] [place] [address] Dr. Yogi Naidu Urea nitrogen/Creatinine [Mass ratio] 18.8 mg/mg Normal [facility] Comment on above: Performed By: #### C MP, MG, PHOS, GGT #### [facility] [address] [place] [address] Dr. Yogi Naidu BOX TEST SENT OUTon 02-19-20 22 SENT TO REF LAB 02/18/2022 [facility] Comment on above: Performed By: #### E MERLE DE OLIVEIRA #### [facility] [address] [place] [address] Dr. Yogi Naidu CBC W MANUAL DIFFon 02-19-20 22 ATYPICAL LYMPH # Normal [facility] Comment on above: Performed By: #### C MP, MG, PHOS, GGT #### [facility] [address] [place] [address] Dr. Yogi Naidu ATYPICAL LYMPH % Normal [facility] Comment on above: Performed By: #### C MP, MG, PHOS, GGT #### [facility] [address] [place] [address] Dr. Yogi Naidu BAND # Normal 0.0-0.3 [facility] Comment on above: Performed By: #### C MP, MG, PHOS, GGT #### [facility] [address] [place] [address] Dr. Yogi Naidu BAND % Normal 0-5 [facility] Comment on above: Performed By: #### C MP, MG, PHOS, GGT #### [facility] [address] [place] [address] Dr. Yogi Naidu BASOM # 0.00 103/ul Normal 0.00-0.10 [facility] Comment on above: Performed By: #### C MP, MG, PHOS, GGT #### [facility] [address] [place] [address] Dr. Yogi Naidu BASOM % 0.0 % Critically low 0.2-2.0 [facility] Comment on above: Performed By: #### C MP, MG, PHOS, GGT #### [facility] [address] [place] [address] Dr. Yogi Naidu BLAST # Normal [facility] Comment on above: Performed By: #### C MP, MG, PHOS, GGT #### [facility] [address] [place] [address] Dr. Yogi Naidu BLAST % Normal [facility] Comment on above: Performed By: #### C MP, MG, PHOS, GGT #### [facility] [address] [place] [address] Dr. Yogi Naidu CORRECTED WBC Normal 4.0-11.0 [facility] Comment on above: Performed By: #### C MP, MG, PHOS, GGT #### [facility] [address] [address] [address] Yogi Naidu EOS # 0.21 103/ul Normal 0.00-0.70 [facility] Comment on above: Performed By: #### C MP, MG, PHOS, GGT #### [facility] [address] [place] [address] Dr. Yogi Naidu EOS% 4.0 % Normal 0.9-7.0 [facility] Comment on above: Performed By: #### C MP, MG, PHOS, GGT #### [facility] [address] [place] [address] Dr. Yogi Naidu HCT 43.6 % Normal 42.0-54.0 [facility] Comment on above: Performed By: #### C MP, MG, PHOS, GGT #### [facility] [address] [place] [address] Dr. Yogi Naidu HGB 14.9 g/dl Normal 14.0-18.0 [facility] Comment on above: Performed By: #### C MP, MG, PHOS, GGT #### [facility] [address] [place] [address] Dr. Yogi Naidu LYMPHM # 0.62 103/ul Critically low 1.20-3.80 [facility] Comment on above: Performed By: #### C MP, MG, PHOS, GGT #### [facility] [address] [place] [address] Dr. Yogi Naidu LYMPHM% 12.0 % Critically low 20.5-60.0 [facility] Comment on above: Performed By: #### C MP, MG, PHOS, GGT #### [facility] [address] [place] [address] Dr. Yogi Naidu MCH 30.1 pg Normal 25.9-34.0 [facility] Comment on above: Performed By: #### C MP, MG, PHOS, GGT #### [facility] [address] [place] [address] Dr. Yogi Naidu MCHC 34.2 g/dl Normal 29.9-35.2 [facility] Comment on above: Performed By: #### C MP, MG, PHOS, GGT #### [facility] [address] [place] [address] Dr. Yogi Naidu MCV 88.1 fL Normal 80.0-94.0 [facility] Comment on above: Performed By: #### C MP, MG, PHOS, GGT #### [facility] [address] [place] [address] Dr. Yogi Naidu METAMYELOCYTE # Normal [facility] Comment on above: Performed By: #### C MP, MG, PHOS, GGT #### [facility] [address] [place] [address] Dr. Yogi Naidu METAMYELOCYTE % Normal [facility] Comment on above: Performed By: #### C MP, MG, PHOS, GGT #### [facility] [address] [place] [address] Dr. Yogi Naidu MONOM# 0.05 103/ul Critically low 0.30-0.80 [facility] Comment on above: Performed By: #### C MP, MG, PHOS, GGT #### [facility] [address] [place] [address] Dr. Yogi Naidu MONOM% 1.0 % Critically low 1.7-12.0 [facility] Comment on above: Performed By: #### C MP, MG, PHOS, GGT #### [facility] [address] [place] [address] Dr. Yogi Naidu MPV 9.2 fL Critically low 9.5-13.5 [facility] Comment on above: Performed By: #### C MP, MG, PHOS, GGT #### [facility] [address] [place] [address] Dr. Yogi Naidu MYELOCYTE # Normal [facility] Comment on above: Performed By: #### C MP, MG, PHOS, GGT #### [facility] [address] [place] [address] Dr. Yogi Naidu MYELOCYTE % Normal [facility] Comment on above: Performed By: #### C MP, MG, PHOS, GGT #### [facility] [address] [place] [address] Dr. Yogi Naidu NRBC Normal [facility] Comment on above: Performed By: #### C MP, MG, PHOS, GGT #### [facility] [address] [address] [address] Yogi Naidu PLT 143 103/ul Critically low 150-450 [facility] Comment on above: Performed By: #### C MP, MG, PHOS, GGT #### [facility] [address] [place] [address] Dr. Yogi Naidu RBC 4.95 106/ul Normal 4.70-6.10 [facility] Comment on above: Performed By: #### C MP, MG, PHOS, GGT #### [facility] [address] [place] [address] Dr. Yogi Naidu RDW 13.9 % Normal 11.0-15.0 [facility] Comment on above: Performed By: #### C MP, MG, PHOS, GGT #### [facility] [address] [place] [address] Dr. Yogi Naidu SEG # 4.32 103/ul Normal 1.40-6.50 [facility] Comment on above: Performed By: #### C MP, MG, PHOS, GGT #### [facility] [address] [place] [address] Dr. Yogi Naidu SEG % 83.0 % Critically high 43.0-75.0 [facility] Comment on above: Performed By: #### C MP, MG, PHOS, GGT #### [facility] [address] [place] [address] Dr. Yogi Naidu WBC 5.2 103/ul Normal 4.0-11.0 [facility] Comment on above: Performed By: #### C MP, MG, PHOS, GGT #### [facility] [address] [place] [address] Dr. Yogi Naidu GGTon 02-18-2022 Gamma glutamyl transferase [Catalytic activity/Vol] 38 U/L Normal 15-85 [facility] Comment on above: Performed By: #### C BC #### [facility] [address] [place] [address] Dr. Yogi Naidu MAGNESIUMon 02-18-2022 Magnesium [Mass/Vol] 1.8 mg/dL Normal 1.8-2.4 [facility] Comment on above: Performed By: #### C BC #### [facility] [address] [place] [address] Dr. Yogi Naidu PHOSPHORUSon 02-18-2022 Phosphate [Mass/Vol] 2.5 mg/dL Critically low 2.6-4.7 [facility] Comment on above: Performed By: #### C MP, MG, PHOS, GGT #### [facility] [address] [place] [address] Dr. Yogi Naidu PROF 14(COMP METB)on 022 Albumin [Mass/Vol] 3.8 g/dL Normal 3.4-5.0 [facility] Comment on above: Performed By: #### C MP, MG, PHOS, GGT #### [facility] [address] [place] [address] Dr. Yogi Naidu Albumin/Globulin [Mass ratio] 1.6 {ratio} Normal [facility] Comment on above: Performed By: #### C MP, MG, PHOS, GGT #### [facility] [address] [place] [address] Dr. Yogi Naidu ALP [Catalytic activity/Vol] 69 U/L Normal 46-116 [facility] Comment on above: Performed By: #### C MP, MG, PHOS, GGT #### [facility] [address] [place] [address] Dr. Yogi Naidu ALT [Catalytic activity/Vol] 17 U/L Normal 16-63 [facility] [facility] Comment on above: Performed By: #### C MP, MG, PHOS, GGT #### [facility] [address] [place] [address] Dr. Yogi Naidu Anion gap [Moles/Vol] 10.0 mmol/L Normal [facility] Comment on above: Performed By: #### C MP, MG, PHOS, GGT #### [facility] [address] [place] [address] Dr. Yogi Naidu AST [Catalytic activity/Vol] 15 U/L Normal 15-37 [facility] Comment on above: Performed By: #### C MP, MG, PHOS, GGT #### [facility] [address] [place] [address] Dr. Yogi Naidu Bilirubin [Mass/Vol] 0.7 mg/dL Normal 0.2-1.0 [facility] Comment on above: Performed By: #### C MP, MG, PHOS, GGT #### [facility] [address] [place] [address] Dr. Yogi Naidu Calcium [Mass/Vol] 8.3 mg/dL Critically low 8.5-10.1 [facility] Comment on above: Performed By: #### C MP, MG, PHOS, GGT #### [facility] [address] [place] [address] Dr. Yogi Naidu Chloride [Moles/Vol] 107 mmol/L Normal 98-107 [facility] Comment on above: Performed By: #### C MP, MG, PHOS, GGT #### [facility] [address] [place] [address] Dr. Yogi Naidu CO2 [Moles/Vol] 27.0 mmol/L Normal 21.0-32.0 [facility] Comment on above: Performed By: #### C MP, MG, PHOS, GGT #### [facility] [address] [place] [address] Dr. Yogi Naidu Creatinine [Mass/Vol] 1.29 mg/dL Normal 0.70-1.30 [facility] Comment on above: Performed By: #### C MP, MG, PHOS, GGT #### [facility] [address] [place] [address] Dr. Yogi Naidu EGFR-AF BOTSWANAN >60 Normal >=[address] [facility] Comment on above: Performed By: #### C MP, MG, PHOS, GGT #### [facility] [address] [place] [address] Dr. Yogi Naidu EGFR-NON AF BOTSWANAN 55 mL/min/1.73m2 Critically low >=60 [facility] Comment on above: Performed By: #### C MP, MG, PHOS, GGT #### [facility] [address] [place] [address] Dr. Yogi Naidu Globulin (S) [Mass/Vol] 2.4 g/dL Normal [facility] Comment on above: Performed By: #### C MP, MG, PHOS, GGT #### [facility] [address] [place] [address] Dr. Yogi Naidu Glucose [Mass/Vol] 95 mg/dL Normal 74-106 [facility] Comment on above: Performed By: #### C MP, MG, PHOS, GGT #### [facility] [address] [place] [address] Dr. Yogi Naidu Potassium [Moles/Vol] 4.0 mmol/L Normal 3.5-5.1 [facility] Comment on above: Performed By: #### C MP, MG, PHOS, GGT #### [facility] [address] [place] [address] Dr. Yogi Naidu Protein [Mass/Vol] 6.2 g/dL Critically low 6.4-8.2 [facility] Comment on above: Performed By: #### C MP, MG, PHOS, GGT #### [facility] [address] [place] [address] Dr. Yogi Naidu Sodium [Moles/Vol] 140 mmol/L Normal 136-145 [facility] Comment on above: Performed By: #### C MP, MG, PHOS, GGT #### [facility] [address] [place] [address] Dr. Yogi Naiud Urea nitrogen [Mass/Vol] 26.0 mg/dL Critically high 7.0-18 .0 [facility] Comment on above: Performed By: #### C MP, MG, PHOS, GGT #### [facility] [address] [place] [address] Dr. Yogi Naidu Urea nitrogen/Creatinine [Mass ratio] 20.2 mg/mg Normal [facility] Comment on above: Performed By: #### C MP, MG, PHOS, GGT #### [facility] [address] [place] [address] Dr. Yogi Naidu US PROSTATEon 01-22-2022 US [...] SUSAN POPE Date: 2022-01-22 16:08 Normal [facility] SARS-CoV-2 (COVID-19) RNA LUZ MARIA+probe Ql (Unsp spec) Not detected Normal NOT DETECTED [facility] Comment on above: Result Comment: This test is not yet approved or cleared by the [place] FDA. When there are no FDA-approved or cleared tests available, and other criteria are met, FDA can make tests available under an emergency access mechanism called an Emergency Use Authorization (EUA). The EUA for this test is supported by the [place] of Health and Human Service's (HHS's) declaration [...] Performed By: #### E RUMERLE Lam #### [facility] [address] [place] [address] Dr. Yogi Naidu HEP C RNA BY PCR QUANT (NON- GRAPHICAL) Won 01-14-2022 HCV Genotype RTNI Normal [facility] Comment on above: Result Comment: Not indicated Performed By: #### C MP, MG, PHOS, GGT #### [facility] [address] [place] [address] Dr. Yogi Naidu HCV log10 UPTCAL Normal [facility] Comment on above: Result Comment: Unab le to calculate result since non-numeric result obtained for component test. Performed By: #### C MP, MG, PHOS, GGT #### [facility] [address] [place] [address] Dr. Yogi Naidu Hepatitis C Quantitation Not detected [facility] Comment on above: Performed By: #### C MP, MG, PHOS, GGT #### [facility] [address] [place] [address] Dr. Yogi Naidu Test Information: Comment Normal [facility] Comment on above: Result Comment: The quantitative range of this assay is 15 IU/mL to 100 million IU/mL. Performed By: #### C MP, MG, PHOS, GGT #### [facility] [address] [place] [address] Dr. Yogi Naidu BOX TEST SENT OUTon 01-14-20 22 SENT TO REF LAB 01/13/2022 Normal [facility] Comment on above: Performed By: #### B OX #### [facility] [address] [place] [address] Dr. Yogi Naidu CBC W MANUAL DIFFon 01-14-20 ANISOCYTOSIS SLIGHT Normal [facility] Comment on above: Performed By: #### C MP, MG, PHOS, GGT #### [facility] [address] [place] [address] Dr. Yogi Naidu ATYPICAL LYMPH # Normal [facility] Comment on above: Performed By: #### C MP, MG, PHOS, GGT #### [facility] [address] [place] [address] Dr. Yogi Naidu ATYPICAL LYMPH % Normal [facility] Comment on above: Performed By: #### C MP, MG, PHOS, GGT #### [facility] [address] [address] [address] Yogi Naidu BAND # Normal 0.0-0.3 [facility] Comment on above: Performed By: #### C MP, MG, PHOS, GGT #### [facility] [address] [place] [address] Dr. Yogi Naidu BAND % Normal 0-5 [facility] Comment on above: Performed By: #### C MP, MG, PHOS, GGT #### [facility] [address] [place] [address] Dr. oYgi Naidu BASOM # 0.00 103/ul Normal 0.00-0.10 [facility] Comment on above: Performed By: #### C MP, MG, PHOS, GGT #### [facility] [address] [place] [address] Dr. Yogi Naidu BASOM % 0.0 % Critically low 0.2-2.0 [facility] Comment on above: Performed By: #### C MP, MG, PHOS, GGT #### [facility] [address] [place] [address] Dr. Yogi Naidu BLAST # Normal [facility] Comment on above: Performed By: #### C MP, MG, PHOS, GGT #### [facility] [address] [place] [address] Dr. Yogi Naidu BLAST % Normal [facility] Comment on above: Performed By: #### C MP, MG, PHOS, GGT #### [facility] [address] [place] [address] Dr. Yogi Naidu CORRECTED WBC Normal 4.0-11.0 [facility] Comment on above: Performed By: #### C MP, MG, PHOS, GGT #### [facility] [address] [place] [address] Dr. Yogi Naidu EOS # 0.10 103/ul Normal 0.00-0.70 [facility] Comment on above: Performed By: #### C MP, MG, PHOS, GGT #### [facility] [address] [address] [address] Yogi Naidu EOS% 2.0 % Normal 0.9-7.0 [facility] Comment on above: Performed By: #### C MP, MG, PHOS, GGT #### [facility] [address] [address] [address] Yogi Naidu HCT 42.9 % Normal 42.0-54.0 [facility] Comment on above: Performed By: #### C MP, MG, PHOS, GGT #### [facility] [address] [address] [address] Yogi Naidu HGB 14.6 g/dl Normal 14.0-18.0 [facility] Comment on above: Performed By: #### C MP, MG, PHOS, GGT #### [facility] [address] [place] [address] Dr. Yogi Naidu LYMPHM # 0.56 103/ul Critically low 1.20-3.80 [facility] Comment on above: Performed By: #### C MP, MG, PHOS, GGT #### [facility] [address] [address] [address] Yogi Naidu LYMPHM% 11.0 % Critically low 20.5-60.0 [facility] Comment on above: Performed By: #### C MP, MG, PHOS, GGT #### [facility] [address] [address] [address] Yogi Naidu MCH 30.8 pg Normal 25.9-34.0 [facility] Comment on above: Performed By: #### C MP, MG, PHOS, GGT #### [facility] [address] [address] [address] Yogi Naidu MCHC 34.0 g/dl Normal 29.9-35.2 [facility] Comment on above: Performed By: #### C MP, MG, PHOS, GGT #### [facility] [address] [address] [address] Yogi Naidu MCV 90.5 fL Normal 80.0-94.0 [facility] Comment on above: Performed By: #### C MP, MG, PHOS, GGT #### [facility] [address] [address] [address] Yogi Naidu METAMYELOCYTE # Normal [facility] Comment on above: Performed By: #### C MP, MG, PHOS, GGT #### [facility] [address] [address] [address] Yogi Naidu METAMYELOCYTE % Normal [facility] Comment on above: Performed By: #### C MP, MG, PHOS, GGT #### [facility] [address] [address] [address] Yogi Naidu MONOM# 0.26 103/ul Critically low 0.30-0.80 [facility] Comment on above: Performed By: #### C MP, MG, PHOS, GGT #### [facility] [address] [place] [address] Dr. Yogi Naidu MONOM% 5.0 % Normal 1.7-12.0 [facility] Comment on above: Performed By: #### C MP, MG, PHOS, GGT #### [facility] [address] [address] [address] Yogi Naidu MPV 9.8 fL Normal 9.5-13.5 [facility] Comment on above: Performed By: #### C MP, MG, PHOS, GGT #### [facility] [address] [address] [address] Yogi Naidu MYELOCYTE # Normal [facility] Comment on above: Performed By: #### C MP, MG, PHOS, GGT #### [facility] [address] [address] [address] Yogi Naidu MYELOCYTE % Normal [facility] Comment on above: Performed By: #### C MP, MG, PHOS, GGT #### [facility] [address] [address] [address] Yogi Naidu NRBC Normal [facility] Comment on above: Performed By: #### C MP, MG, PHOS, GGT #### [facility] [address] [address] [address] Yogi Naidu PLT 172 103/ul Normal 150-450 [facility] Comment on above: Performed By: #### C MP, MG, PHOS, GGT #### [facility] [address] [place] [address] Dr. Yogi Naidu POIKILOCYTOSIS 1+ Normal [facility] Comment on above: Performed By: #### C MP, MG, PHOS, GGT #### [facility] [address] [address] [address] Yogi Naidu RBC 4.74 106/ul Normal 4.70-6.10 [facility] Comment on above: Performed By: #### C MP, MG, PHOS, GGT #### [facility] [address] [place] [address] Dr. Yogi Naidu RDW 13.9 % Normal 11.0-15.0 [facility] Comment on above: Performed By: #### C MP, MG, PHOS, GGT #### [facility] [address] [place] [address] Dr. Yogi Naidu SEG # 4.18 103/ul Normal 1.40-6.50 [facility] Comment on above: Performed By: #### C MP, MG, PHOS, GGT #### [facility] [address] [place] [address] Dr. Yogi Naidu SEG % 82.0 % Critically high 43.0-75.0 [facility] Comment on above: Performed By: #### C MP, MG, PHOS, GGT #### [facility] [address] [place] [address] Dr. Yogi Naidu TEAR DROP CELLS 1+ Normal [facility] Comment on above: Performed By: #### C MP, MG, PHOS, GGT #### [facility] [address] [place] [address] Dr. Yogi Naidu WBC 5.1 103/ul Normal 4.0-11.0 [facility] Comment on above: Performed By: #### C MP, MG, PHOS, GGT #### [facility] [address] [address] [address] Yogi Naidu GGTon 01-13-2022 Gamma glutamyl transferase [Catalytic activity/Vol] 35 U/L Normal 15-85 [facility] Comment on above: Performed By: #### B OX #### [facility] [address] [address] [address] Yogi Naidu LIPID PROFILEon 01-13-2022 CHOL-HDL RATIO NORM SEE BELOW Normal [facility] Comment on above: Result Comment: 3.3 - 4.4 LOW RISK 4.4 - 7.1 AVERAGE RISK 7.1 - 11.0 MODERATE RISK >11.0 HIGH RISK Performed By: #### B OX #### [facility] [address] [address] [address] Yogi Naidu Cholesterol [Mass/Vol] 183 mg/dL Normal <=200 [facility] Comment on above: Performed By: #### B OX #### [facility] [address] [address] [address] Yogi Naidu Cholesterol in HDL [Mass/Vol] 45 mg/dL Normal 40-60 [facility] Comment on above: Performed By: #### B OX #### [facility] [address] [address] [address] Yogi Naidu Cholesterol in LDL [Mass/Vol] 127.2 mg/dL Normal [facility] Comment on above: Performed By: #### B OX #### [facility] [address] [address] [address] Yogi Naidu Cholesterol.total/Choles terol in HDL [Mass ratio] 4.1 {ratio} Normal [facility] Comment on above: Performed By: #### B OX #### [facility] [id number] Yogi Naidu HDL NORMAL > or = 60 mg/dl - LO W CARDIOVASCULAR RISK <40 mg/dl - HIGH CARDIOVASCULAR RISK Normal [facility] Comment on above: Performed By: #### B OX #### [facility] [id number] Yogi Naidu LDL CALC NORMAL SEE BELOW Normal [facility] Comment on above: Result Comment: <100 mg/dl OPTIMAL 100 - 129 mg/dl NEAR OR ABOVE OPTIMAL 130 - 159 mg/dl BORDERLINE HIGH 160 - 189 mg/dl HIGH >190 mg/dl VERY HIGH Performed By: #### B OX #### [facility] [address] [place] [address] Dr. Yogi Naidu Triglyceride [Mass/Vol] 54 mg/dL Normal <=150 T [facility] Comment on above: Performed By: #### B OX #### [facility] [address] [place] [address] Dr. Yogi Naidu VLDL CALC 10.8 mg/dL Normal [facility] Comment on above: Performed By: #### B OX #### [facility] [address] [place] [address] Dr. Yogi Naidu MAGNESIUMon 01-13-2022 Magnesium [Mass/Vol] 1.7 mg/dL Critically low 1.8-2.4 [facility] Comment on above: Performed By: #### B OX #### [facility] [address] [place] [address] Dr. Yogi Naidu PHOSPHORUSon 01-13-2022 Phosphate [Mass/Vol] 2.8 mg/dL Normal 2.6-4.7 [facility] Comment on above: Performed By: #### B OX #### [facility] [address] [place] [address] Dr. Yogi Naidu PROF 14(COMP METB)on 022 Albumin [Mass/Vol] 3.9 g/dL Normal 3.4-5.0 [facility] Comment on above: Performed By: #### B OX #### [facility] [address] [place] [address] Dr. Yogi Naidu Albumin/Globulin [Mass ratio] 1.7 {ratio} Normal [facility] Comment on above: Performed By: #### B OX #### [facility] [address] [place] [address] Dr. Yogi Naidu ALP [Catalytic activity/Vol] 68 U/L Normal 46-116 [facility] Comment on above: Performed By: #### B OX #### [facility] [address] [address] [address] Yogi Naidu ALT [Catalytic activity/Vol] 14 U/L Critically low 16-63 [facility] Comment on above: Performed By: #### B OX #### [facility] [address] [address] [address] Yogi Naidu Anion gap [Moles/Vol] 11.9 mmol/L Normal [facility] Comment on above: Performed By: #### B OX #### [facility] [address] [address] [address] Yogi Naidu AST [Catalytic activity/Vol] 13 U/L Critically low 15-37 [facility] Comment on above: Performed By: #### B OX #### [facility] [address] [address] [address] Yogi Naidu Bilirubin [Mass/Vol] 0.5 mg/dL Normal 0.2-1.0 [facility] Comment on above: Performed By: #### B OX #### [facility] [address] [place] [address] Dr. Yogi Naidu Calcium [Mass/Vol] 8.7 mg/dL Normal 8.5-10.1 [facility] Comment on above: Performed By: #### B OX #### [facility] [address] [address] [address] Yogi Naidu Chloride [Moles/Vol] 110 mmol/L Critically high 98-107 [facility] Comment on above: Performed By: #### B OX #### [facility] [address] [address] [address] Yogi Naidu CO2 [Moles/Vol] 26.3 mmol/L Normal 21.0-32.0 [facility] Comment on above: Performed By: #### B OX #### [facility] [address] [address] [address] Yogi Naidu Creatinine [Mass/Vol] 1.24 mg/dL Normal 0.70-1.30 [facility] Comment on above: Performed By: #### B OX #### [facility] [address] [place] [address] Dr. Yogi Naidu EGFR-AF BOTSWANAN >60 Normal >=60 [facility] Comment on above: Performed By: #### B OX #### [facility] [address] [address] [address] Yogi Naidu EGFR-NON AF BOTSWANAN 58 mL/min/1.73m2 Critically low >=60 [facility] Comment on above: Performed By: #### B OX #### [facility] [address] [address] [address] Yogi Naidu Globulin (S) [Mass/Vol] 2.3 g/dL Normal T [facility] Comment on above: Performed By: #### B OX #### [facility] [address] [address] [address] Yogi Naidu Glucose [Mass/Vol] 103 mg/dL Normal 74-106 [facility] Comment on above: Performed By: #### B OX #### [facility] [address] [address] [address] Yogi Naidu Potassium [Moles/Vol] 4.2 mmol/L Normal 3.5-5.1 [facility] Comment on above: Performed By: #### B OX #### [facility] [address] [address] [address] Yogi Naidu Protein [Mass/Vol] 6.2 g/dL Critically low 6.4-8.2 [facility] Comment on above: Performed By: #### B OX #### [facility] [address] [address] [address] Yogi Naidu Sodium [Moles/Vol] 144 mmol/L Normal 136-145 [facility] Comment on above: Performed By: #### B OX #### [facility] [address] [place] [address] Dr. Yogi Naidu Urea nitrogen [Mass/Vol] 26.0 mg/dL Critically high 7.0-18 .0 [facility] Comment on above: Performed By: #### B OX #### [facility] [address] [place] [address] Dr. Yogi Naidu Urea nitrogen/Creatinine [Mass ratio] 21.0 mg/mg Normal [facility] Comment on above: Performed By: #### B OX #### [facility] [address] [place] [address] Dr. Yogi Naidu PROTIMEon 01-13-2022 INR Coag (PPP) [Relative time] 1.06 {INR} Normal [facility] Comment on above: Performed By: #### C MP, MG, PHOS, GGT #### [facility] [address] [place] [address] Dr. Yogi Naidu INR GUIDELINES SEE BELOW Normal [facility] Comment on above: Result Comment: LENI RED INR: 2.0 - 3.0 CONDITIONS NOT LISTED BELOW 2.5 - 3.5 FOR PROSTHETIC HEART VALVE REPLACEMENT 2.5 - 3.5 RECURRENT THROMBOSIS Performed By: #### C MP, MG, PHOS, GGT #### [facility] [address] [place] [address] Dr. Yogi Naidu PT Coag (PPP) [Time] 11.4 s Normal 9.0-11.6 [facility] Comment on above: Performed By: #### C MP, MG, PHOS, GGT #### [facility] [address] [place] [address] Dr. Yogi Naidu PTTon 01-13-2022 aPTT Coag (Bld) [Time] 28.7 s Normal 22.3-36.2 Th e [facility] Comment on above: Performed By: #### C MP, MG, PHOS, GGT #### [facility] [address] [place] [address] Dr. Yogi Naidu BOX TEST SENT OUTon 12-18-19 22 SENT TO REF LAB 12/17/2021 Normal [facility] Comment on above: Performed By: #### C MP, MG, PHOS, GGT #### [facility] [address] [place] [address] Dr. Yogi Naidu CBC AUTO DIFFon 12-17-2021 BASO # 0.1 103/ul Normal 0.0-0.1 [facility] Comment on above: Performed By: #### C BC #### [facility] [address] [place] [address] Dr. Yogi Naidu Basophils/100 WBC (Bld) 1.1 % Normal 0.2-2.0 [facility] Comment on above: Performed By: #### C BC #### [facility] [address] [place] [address] Dr. Yogi Naidu EO # 0.2 103/ul Normal 0.0-0.7 [facility] Comment on above: Performed By: #### C BC #### [facility] [address] [place] [address] Dr. Yogi Naidu Eosinophils/100 WBC (Bld) 4.1 % Normal 0.9-7.0 [facility] Comment on above: Performed By: #### C BC #### [facility] [address] [place] [address] Dr. Yogi Naidu Erythrocyte distribution width (RBC) [Ratio] 13.7 % Normal 11.0-15.0 [facility] Comment on above: Performed By: #### C BC #### [facility] [address] [place] [address] Dr. Yogi Naidu Hematocrit (Bld) [Volume fraction] 45.6 % Normal 42.0-54.0 [facility] Comment on above: Performed By: #### C BC #### [facility] [address] [place] [address] Dr. Yogi Naidu Hemoglobin (Bld) [Mass/Vol] 15.1 g/dL Normal 14.0-18.0 [facility] Comment on above: Performed By: #### C BC #### [facility] [address] [place] [address] Dr. Yogi Naidu IG # 0.01 10e3/ul Normal 0.00-0.03 [facility] Comment on above: Performed By: #### C BC #### [facility] [address] [place] [address] Dr. Yogi Naidu IG % 0.2 % Normal 0.0-0.5 [facility] Comment on above: Performed By: #### C BC #### [facility] [address] [address] [address] Yogi Naidu LYMPH # 0.7 103/ul Critically low 1.2-3.8 [facility] Comment on above: Performed By: #### C BC #### [facility] [address] [address] [address] Yogi Naidu Lymphocytes/100 WBC (Bld) 12.4 % Critically low 20.5-60.0 [facility] Comment on above: Performed By: #### C BC #### [facility] [address] [address] [address] Yogi Naidu MANUAL DIFF REQ NO Normal [facility] Comment on above: Performed By: #### C BC #### [facility] [address] [place] [address] Dr. Yogi Naidu MCH (RBC) [Entitic mass] 30.1 pg Normal 25.9-34.0 [facility] Comment on above: Performed By: #### C BC #### [facility] [address] [place] [address] Dr. Yogi Naidu MCHC (RBC) [Mass/Vol] 33.1 g/dL Normal 29.9-35.2 [facility] Comment on above: Performed By: #### C BC #### [facility] [address] [place] [address] Dr. Yogi Naidu MCV (RBC) [Entitic vol] 90.8 fL Normal 80.0-94.0 [facility] Comment on above: Performed By: #### C BC #### [facility] [address] [place] [address] Dr. Yogi Naidu MONO # 0.3 103/ul Normal 0.3-0.8 [facility] Comment on above: Performed By: #### C BC #### [facility] [address] [place] [address] Dr. Yogi Naidu Monocytes/100 WBC (Bld) 5.5 % Normal 1.7-12.0 [facility] Comment on above: Performed By: #### C BC #### [facility] [address] [place] [address] Dr. Yogi Naidu NEUT # 4.4 103/ul Normal 1.4-6.5 [facility] Comment on above: Performed By: #### C BC #### [facility] [address] [place] [address] Dr. Yogi Naidu Neutrophils/100 WBC (Bld) 76.7 % Critically high 43.0-75.0 [facility] Comment on above: Performed By: #### C BC #### [facility] [address] [place] [address] Dr. Yogi Naidu Platelet mean volume (Bld) [Entitic vol] 9.5 fL Normal 9.5-13.5 [facility] Comment on above: Performed By: #### C BC #### [facility] [address] [place] [address] Dr. Yogi Naidu PLT 157 103/ul Normal 150-450 [facility] Comment on above: Performed By: #### C BC #### [facility] [address] [place] [address] Dr. Yogi Naidu RBC 5.02 106/ul Normal 4.70-6.10 [facility] Comment on above: Performed By: #### C BC #### [facility] [address] [place] [address] Dr. Yogi Naidu WBC 5.7 103/ul Normal 4.0-11.0 [facility] Comment on above: Performed By: #### C BC #### [facility] [address] [place] [address] Dr. Yogi Naidu GGTon 12-17-2021 Gamma glutamyl transferase [Catalytic activity/Vol] 35 U/L Normal 15-85 [facility] Comment on above: Performed By: #### C MP, MG, PHOS, GGT #### [facility] [address] [place] [address] Dr. Yogi Naidu MAGNESIUMon 12-17-2021 Magnesium [Mass/Vol] 1.6 mg/dL Critically low 1.8-2.4 [facility] Comment on above: Performed By: #### C MP, MG, PHOS, GGT #### [facility] [address] [place] [address] Dr. Yogi Naidu PHOSPHORUSon 12-17-2021 Phosphate [Mass/Vol] 2.9 mg/dL Normal 2.6-4.7 [facility] Comment on above: Performed By: #### C MP, MG, PHOS, GGT #### [facility] [address] [place] [address] Dr. Yogi Naidu PROF 14(COMP METB)on 022 Albumin [Mass/Vol] 3.8 g/dL Normal 3.4-5.0 [facility] Comment on above: Performed By: #### C MP, MG, PHOS, GGT #### [facility] [address] [place] [address] Dr. Yogi Naidu Albumin/Globulin [Mass ratio] 1.6 {ratio} Normal [facility] Comment on above: Performed By: #### C MP, MG, PHOS, GGT #### [facility] [address] [place] [address] Dr. Yogi Naidu ALP [Catalytic activity/Vol] 74 U/L Normal 46-116 [facility] Comment on above: Performed By: #### C MP, MG, PHOS, GGT #### [facility] [address] [place] [address] Dr. Yogi Naidu ALT [Catalytic activity/Vol] 21 U/L Normal 16-63 [facility] Comment on above: Performed By: #### C MP, MG, PHOS, GGT #### [facility] [address] [place] [address] Dr. Yogi Naidu Anion gap [Moles/Vol] 13.2 mmol/L Normal [facility] Comment on above: Performed By: #### C MP, MG, PHOS, GGT #### [facility] [address] [place] [address] Dr. Yogi Naidu AST [Catalytic activity/Vol] 14 U/L Critically low 15-37 [facility] Comment on above: Performed By: #### C MP, MG, PHOS, GGT #### [facility] [address] [place] [address] Dr. Yogi Naidu Bilirubin [Mass/Vol] 0.6 mg/dL Normal 0.2-1.0 [facility] Comment on above: Performed By: #### C MP, MG, PHOS, GGT #### [facility] [address] [place] [address] Dr. Yogi Naidu Calcium [Mass/Vol] 8.5 mg/dL Normal 8.5-10.1 [facility] Comment on above: Performed By: #### C MP, MG, PHOS, GGT #### [facility] [address] [place] [address] Dr. Yogi Naidu Chloride [Moles/Vol] 109 mmol/L Critically high 98-107 [facility] Comment on above: Performed By: #### C MP, MG, PHOS, GGT #### [facility] [address] [place] [address] Dr. Yogi Naidu CO2 [Moles/Vol] 24.9 mmol/L Normal 21.0-32.0 [facility] Comment on above: Performed By: #### C MP, MG, PHOS, GGT #### [facility] [address] [place] [address] Dr. Yogi Naidu Creatinine [Mass/Vol] 1.22 mg/dL Normal 0.70-1.30 [facility] Comment on above: Performed By: #### C MP, MG, PHOS, GGT #### [facility] [address] [place] [address] Dr. Yogi Naidu EGFR-AF BOTSWANAN >60 Normal >=[address] [facility] Comment on above: Performed By: #### C MP, MG, PHOS, GGT #### [facility] [address] [place] [address] Dr. Yogi Naidu EGFR-NON AF BOTSWANAN 59 mL/min/1.73m2 Critically low >=60 [facility] Comment on above: Performed By: #### C MP, MG, PHOS, GGT #### [facility] [address] [place] [address] Dr. Yogi Naidu Globulin (S) [Mass/Vol] 2.4 g/dL Normal [facility] Comment on above: Performed By: #### C MP, MG, PHOS, GGT #### [facility] [address] [address] [address] Yogi Naidu Glucose [Mass/Vol] 94 mg/dL Normal 74-106 [facility] Comment on above: Performed By: #### C MP, MG, PHOS, GGT #### [facility] [address] [address] [address] Yogi Naidu Potassium [Moles/Vol] 4.1 mmol/L Normal 3.5-5.1 [facility] Comment on above: Performed By: #### C MP, MG, PHOS, GGT #### [facility] [address] [place] [address] Dr. Yogi Naidu Protein [Mass/Vol] 6.2 g/dL Critically low 6.4-8.2 [facility] Comment on above: Performed By: #### C MP, MG, PHOS, GGT #### [facility] [address] [place] [address] Dr. Yogi Naidu Sodium [Moles/Vol] 143 mmol/L Normal 136-145 [facility] Comment on above: Performed By: #### C MP, MG, PHOS, GGT #### [facility] [address] [place] [address] Dr. Yogi Naidu Urea nitrogen [Mass/Vol] 21.0 mg/dL Critically high 7.0-18 .0 [facility] Comment on above: Performed By: #### C MP, MG, PHOS, GGT #### [facility] [address] [place] [address] Dr. Yogi Naidu Urea nitrogen/Creatinine [Mass ratio] 17.2 mg/mg [facility] Comment on above: Performed By: #### C MP, MG, PHOS, GGT #### [facility] [address] [place] [address] Dr. Yogi Naidu BOX TEST SENT OUTon 11-22-19 SENT TO REF LAB 11/21/2021 [facility] Comment on above: Performed By: #### C MP, MG, PHOS, GGT #### [facility] [address] [address] [address] Yogi Naidu CBC W MANUAL DIFFon 11-22-19 22 ATYPICAL LYMPH # Normal [facility] Comment on above: Performed By: #### C MP, MG, PHOS, GGT #### [facility] [address] [address] [address] Yogi Naidu ATYPICAL LYMPH % Normal [facility] Comment on above: Performed By: #### C MP, MG, PHOS, GGT #### [facility] [address] [address] [address] Yogi Naidu BAND # 0.1 103/ul Normal 0.0-0.3 [facility] Comment on above: Performed By: #### C MP, MG, PHOS, GGT #### [facility] [address] [place] [address] Dr. Yogi Naidu BAND % 2 % Normal 0-5 [facility] Comment on above: Performed By: #### C MP, MG, PHOS, GGT #### [facility] [address] [address] [address] Yogi Naidu BASOM # 0.00 103/ul Normal 0.00-0.10 [facility] Comment on above: Performed By: #### C MP, MG, PHOS, GGT #### [facility] [address] [address] [address] Yogi Naidu BASOM % 0.0 % Critically low 0.2-2.0 [facility] Comment on above: Performed By: #### C MP, MG, PHOS, GGT #### [facility] [address] [address] [address] Yogi Naidu BLAST # Normal [facility] Comment on above: Performed By: #### C MP, MG, PHOS, GGT #### [facility] [address] [place] [address] Dr. Yogi Naidu BLAST % Normal [facility] Comment on above: Performed By: #### C MP, MG, PHOS, GGT #### [facility] [address] [address] [address] Yogi Naidu CORRECTED WBC Normal 4.0-11.0 [facility] Comment on above: Performed By: #### C MP, MG, PHOS, GGT #### [facility] [address] [address] [address] Yogi Naidu EOS # 0.19 103/ul Normal 0.00-0.70 [facility] Comment on above: Performed By: #### C MP, MG, PHOS, GGT #### [facility] [address] [address] [address] Yogi Naidu EOS% 3.0 % Normal 0.9-7.0 [facility] Comment on above: Performed By: #### C MP, MG, PHOS, GGT #### [facility] [address] [place] [address] Dr. Yogi Naidu HCT 46.5 % Normal 42.0-54.0 [facility] Comment on above: Performed By: #### C MP, MG, PHOS, GGT #### [facility] [address] [address] [address] Yogi Naidu HGB 15.5 g/dl Normal 14.0-18.0 [facility] Comment on above: Performed By: #### C MP, MG, PHOS, GGT #### [facility] [address] [address] [address] Yogi Naidu LYMPHM # 0.50 103/ul Critically low 1.20-3.80 [facility] Comment on above: Performed By: #### C MP, MG, PHOS, GGT #### [facility] [address] [address] [address] Yogi Naidu LYMPHM% 8.0 % Critically low 20.5-60.0 [facility] Comment on above: Performed By: #### C MP, MG, PHOS, GGT #### [facility] [address] [address] [address] Yogi Naidu MCH 30.2 pg Normal 25.9-34.0 [facility] Comment on above: Performed By: #### C MP, MG, PHOS, GGT #### [facility] [address] [address] [address] Yogi Naidu MCHC 33.3 g/dl Normal 29.9-35.2 [facility] Comment on above: Performed By: #### C MP, MG, PHOS, GGT #### [facility] [address] [address] [address] Yogi Naidu MCV 90.5 fL Normal 80.0-94.0 [facility] Comment on above: Performed By: #### C MP, MG, PHOS, GGT #### [facility] [address] [place] [address] Dr. Yogi Naidu METAMYELOCYTE # Normal [facility] Comment on above: Performed By: #### C MP, MG, PHOS, GGT #### [facility] [address] [place] [address] Dr. Yogi Naidu METAMYELOCYTE % Normal [facility] Comment on above: Performed By: #### C MP, MG, PHOS, GGT #### [facility] [address] [address] [address] Yogi Naidu MONOM# 0.06 103/ul Critically low 0.30-0.80 [facility] Comment on above: Performed By: #### C MP, MG, PHOS, GGT #### [facility] [address] [place] [address] Dr. Yogi Naidu MONOM% 1.0 % Critically low 1.7-12.0 [facility] Comment on above: Performed By: #### C MP, MG, PHOS, GGT #### [facility] [address] [place] [address] Dr. Yogi Naidu MPV 9.6 fL Normal 9.5-13.5 [facility] Comment on above: Performed By: #### C MP, MG, PHOS, GGT #### [facility] [address] [place] [address] Dr. Yogi Naidu MYELOCYTE # Normal [facility] Comment on above: Performed By: #### C MP, MG, PHOS, GGT #### [facility] [address] [address] [address] Yogi Naidu MYELOCYTE % Normal [facility] Comment on above: Performed By: #### C MP, MG, PHOS, GGT #### [facility] [address] [address] [address] Yogi Naidu NRBC Normal [facility] Comment on above: Performed By: #### C MP, MG, PHOS, GGT #### [facility] [address] [address] [address] Yogi Naidu PLT 185 103/ul Normal 150-450 [facility] Comment on above: Performed By: #### C MP, MG, PHOS, GGT #### [facility] [address] [place] [address] Dr. Yogi Naidu RBC 5.14 106/ul Normal 4.70-6.10 [facility] Comment on above: Performed By: #### C MP, MG, PHOS, GGT #### [facility] [address] [place] [address] Dr. Yogi Naidu RDW 14.0 % Normal 11.0-15.0 [facility] Comment on above: Performed By: #### C MP, MG, PHOS, GGT #### [facility] [address] [place] [address] Dr. Yogi Naidu SEG # 5.33 103/ul Normal 1.40-6.50 [facility] Comment on above: Performed By: #### C MP, MG, PHOS, GGT #### [facility] [address] [place] [address] Dr. Yogi Naidu SEG % 86.0 % Critically high 43.0-75.0 [facility] Comment on above: Performed By: #### C MP, MG, PHOS, GGT #### [facility] [address] [address] [address] Yogi Naidu WBC 6.2 103/ul Normal 4.0-11.0 [facility] Comment on above: Performed By: #### C MP, MG, PHOS, GGT #### [facility] [address] [place] [address] Dr. Yogi Naidu GGTon 11-21-2021 Gamma glutamyl transferase [Catalytic activity/Vol] 35 U/L Normal 15-85 [facility] Comment on above: Performed By: #### C MP, MG, PHOS, GGT #### [facility] [address] [place] [address] Dr. Yogi Naidu MAGNESIUMon 11-21-2021 Magnesium [Mass/Vol] 1.9 mg/dL Normal 1.8-2.4 [facility] Comment on above: Performed By: #### C MP, MG, PHOS, GGT #### [facility] [address] [place] [address] Dr. Yogi Naidu PHOSPHORUSon 11-21-2021 Phosphate [Mass/Vol] 3.0 mg/dL Normal 2.6-4.7 [facility] Comment on above: Performed By: #### C MP, MG, PHOS, GGT #### [facility] [address] [place] [address] Dr. Yogi Naidu PROF 14(COMP METB)on 022 Albumin [Mass/Vol] 3.8 g/dL Normal 3.4-5.0 [facility] Comment on above: Performed By: #### C MP, MG, PHOS, GGT #### [facility] [address] [place] [address] Dr. Yogi Naidu Albumin/Globulin [Mass ratio] 1.7 {ratio} Normal [facility] Comment on above: Performed By: #### C MP, MG, PHOS, GGT #### [facility] [address] [place] [address] Dr. Yogi Naidu ALP [Catalytic activity/Vol] 80 U/L Normal 46-116 [facility] Comment on above: Performed By: #### C MP, MG, PHOS, GGT #### [facility] [address] [place] [address] Dr. Yogi Naidu ALT [Catalytic activity/Vol] 21 U/L Normal 16-63 [facility] Comment on above: Performed By: #### C MP, MG, PHOS, GGT #### [facility] [address] [address] [address] Yogi Naidu Anion gap [Moles/Vol] 13.7 mmol/L Normal [facility] Comment on above: Performed By: #### C MP, MG, PHOS, GGT #### [facility] [address] [place] [address] Dr. Yogi Naidu AST [Catalytic activity/Vol] 15 U/L Normal 15-37 [facility] Comment on above: Performed By: #### C MP, MG, PHOS, GGT #### [facility] [address] [place] [address] Dr. Yogi Naidu Bilirubin [Mass/Vol] 0.6 mg/dL Normal 0.2-1.0 [facility] Comment on above: Performed By: #### C MP, MG, PHOS, GGT #### [facility] [address] [place] [address] Dr. Yogi Naidu Calcium [Mass/Vol] 8.9 mg/dL Normal 8.5-10.1 [facility] Comment on above: Performed By: #### C MP, MG, PHOS, GGT #### [facility] [address] [place] [address] Dr. Yogi Naidu Chloride [Moles/Vol] 107 mmol/L Normal 98-107 [facility] Comment on above: Performed By: #### C MP, MG, PHOS, GGT #### [facility] [address] [place] [address] Dr. Yogi Naidu CO2 [Moles/Vol] 25.4 mmol/L Normal 21.0-32.[address] [facility] Comment on above: Performed By: #### C MP, MG, PHOS, GGT #### [facility] [address] [place] [address] Dr. Yogi Naidu Creatinine [Mass/Vol] 1.35 mg/dL Critically high 0.70-1.30 [facility] Comment on above: Performed By: #### C MP, MG, PHOS, GGT #### [facility] [address] [place] [address] Dr. Yogi Naidu EGFR-AF BOTSWANAN >60 Normal >=60 [facility] Comment on above: Performed By: #### C MP, MG, PHOS, GGT #### [facility] [address] [place] [address] Dr. Yogi Naidu EGFR-NON AF BOTSWANAN 52 mL/min/1.73m2 Critically low >=60 [facility] Comment on above: Performed By: #### C MP, MG, PHOS, GGT #### [facility] [address] [place] [address] Dr. Yogi Naidu Globulin (S) [Mass/Vol] 2.3 g/dL Normal T [facility] Comment on above: Performed By: #### C MP, MG, PHOS, GGT #### [facility] [address] [place] [address] Dr. Yogi Naidu Glucose [Mass/Vol] 93 mg/dL Normal 74-106 [facility] Comment on above: Performed By: #### C MP, MG, PHOS, GGT #### [facility] [address] [place] [address] Dr. Yogi Naidu Potassium [Moles/Vol] 4.1 mmol/L Normal 3.5-5.1 [facility] Comment on above: Performed By: #### C MP, MG, PHOS, GGT #### [facility] [address] [place] [address] Dr. Yogi Naidu Protein [Mass/Vol] 6.1 g/dL Critically low 6.4-8.2 [facility] Comment on above: Performed By: #### C MP, MG, PHOS, GGT #### [facility] [address] [place] [address] Dr. Yogi Naidu Sodium [Moles/Vol] 142 mmol/L Normal 136-145 [facility] Comment on above: Performed By: #### C MP, MG, PHOS, GGT #### [facility] [address] [place] [address] Dr. Yogi Naidu Urea nitrogen [Mass/Vol] 30.0 mg/dL Critically high 7.0-18 .0 [facility] Comment on above: Performed By: #### C MP, MG, PHOS, GGT #### [facility] [address], [place] [address] Dr. Yogi Naidu Urea nitrogen/Creatinine [Mass ratio] 22.2 mg/mg Normal [facility] Comment on above: Performed By: #### C MP, MG, PHOS, GGT #### [facility] [address], [place] [address] CHEST W IVCONon 0 CT CHEST W IVCON * * *Final Report* * * DATE OF EXAM: Apr 16 2020 12:22PM [facility] 0539 - CT CHEST W IVCON [...] the abdomen and pelvis are dictated separately. Touch Up Carver (topogram) images: No additional findings. - IMPRESSION: Stable exam with no compelling evidence of intrathoracic metastatic disease. Small nonspecific (<6 mm) pulmonary nodules are unchanged, most of these nodules are unchanged since 2012 and are likely benign. Corn Husk Baler: [facility] Transcribe Date/Time: Apr 16 2020 12:52P Dictated by : ESDRAS SALAZAR MD This examination was interpreted and the report reviewed and electronically signed by: ESDRAS SALAZAR MD on Apr 16 2020 1:05PM EST [id number] [facility] CT LIVER/PELVIS WO/W IVCONon 04-16-2020 CT LIVER/PELVIS WO/W IVCON * * *Final Report* * * DATE OF EXAM: Apr 16 2020 12:22PM [facility] 0551 - CT LIVER/PELVIS WO/W IVCON [...] subcentimeter hypervascular lesion in the pancreatic head. Corn Husk Baler: [facility] Transcribe Date/Time: Apr 16 2020 12:37P Dictated by : HAIR GUTIÉRREZ MD This examination was interpreted and the report reviewed and electronically signed by: HAIR GUTIÉRREZ MD on Apr 16 2020 12:47PM EST [id number] Normal [facility] NURSING PROGon 04-16-2020 NURSING PROG HNO ID: [id number] Author: Latisha Boles (Rn) TEENA Hernandez Service: [...] DATE: April 16, 2020 TIME: 12:00 PM [facility] PROGRESSon 04-16-2020 PROGRESS HNO ID: [id number] Author: Kasey Soto (Rt) Service: Radiology Author Type: Vibrator Operator Type: Progress Notes Filed: 04/16/2020 12:13 PM [...] RT Jonnie April 16, 2020 12:05 PM [facility] CNPMiguelina 04-10-2020 NELSYN Telephone (AVXRPR) SUSAN SHERMAN ([id number]) 1950 M TRN Date Time Provider Department [...] Encounter Status:Closed by REBECA ACEVEDO on 04/10/20 [facility] Vital Signs Date Time Vital Sign Value Performing Clinician Facility 07-22-2024 11:27-0500 Body height 182.9 cm [facility] EXPLOSIVE ORDNANCE TECHNICIAN.BREEDING TECHNICIAN Work Phone: [facility] 07-22-2024 11:27-0500 Body mass index (BMI) [Ratio] 18.72 kg/m2 [facility] EXPLOSIVE ORDNANCE TECHNICIAN.BREEDING TECHNICIAN Work Phone: [facility] 07-22-2024 11:27-0500 Body temperature 97.11 [degF] [facility] EXPLOSIVE ORDNANCE TECHNICIAN.BREEDING TECHNICIAN Work Phone: [facility] 07-22-2024 11:27-0500 Body weight 62.6 kg [facility] EXPLOSIVE ORDNANCE TECHNICIAN.BREEDING TECHNICIAN Work Phone: [facility] 07-22-2024 11:27-0500 Diastolic blood pressure 69 mm[Hg] [facility] EXPLOSIVE ORDNANCE TECHNICIAN.BREEDING TECHNICIAN Work Phone: [facility] 07-22-2024 11:27-0500 Heart rate 92 /min [facility] EXPLOSIVE ORDNANCE TECHNICIAN.BREEDING TECHNICIAN Work Phone: [facility] 07-22-2024 11:27-0500 Systolic blood pressure 107 mm[Hg] Carline Miles EXPLOSIVE ORDNANCE TECHNICIAN.BREEDING TECHNICIAN Work Phone: [facility] 06-17-2024 02:31-0500 SaO2% (BldA) [Mass fraction] 93 % [facility] Comment on above: Order Comment: Specimen Type: ARTERIAL B LOOD SPECIMENOrdering Facility: [facility] Address: [address] [place], [place] [id number] Performed By: #### A LLBG ####[facility] LAB[facility]IA [id number] [place] [id number] [place] [facility] 06-16-2024 16:31-0500 SaO2% (BldA) [Mass fraction] 94 % [facility] Comment on above: Order Comment: Specimen Type: ARTERIAL B LOOD SPECIMENOrdering Facility: [facility] [facility] Address: [address] [place], [place] [id number] Performed By: #### A LLBG ####[facility] LABCLIA [id number] [place] [id number] [place] [facility] 06-14-2024 10:53-0500 SaO2% (BldA) [Mass fraction] 98 % JOSE LAZBUDDIECarole [facility] [place] Comment on above: Order Comment: Specimen Type: ARTERIAL B LOOD SPECIMENOrdering Facility: [facility] Address: [address] [place], [place] [id number] Performed By: #### A LLBG ####[facility] LABCLIA [id number] [place] [id number] [place] 06-13-2024 15:39-0500 SaO2% (BldA) [Mass fraction] 98 % JOSE [facility] Comment on above: Order Comment: Specimen Type: ARTERIAL B LOOD SPECIMENOrdering Facility: [facility] Address: [address] [place] [address] Performed By: #### A LLBG ####[facility] LABCLIA [id number] [place] [id number] [place] [facility] 06-13-2024 11:25-0500 SaO2% (BldA) [Mass fraction] 99 % JOSE LAZBUDDIECarole [facility] [place] Comment on above: Order Comment: Specimen Type: ARTERIAL B LOOD SPECIMENOrdering Facility: [facility] Address: [address] [place], [place] [id number] Performed By: #### A LLBG ####[facility] LABCLIA [id number] [address] [address] [facility] 06-13-2024 11:13-0500 SaO2% (BldA) [Mass fraction] 99 % JOSE LAZBUDDIECarole [facility] [place] Comment on above: Order Comment: Specimen Type: ARTERIAL B LOOD SPECIMENOrdering Facility: [facility] Address: [address] [place] [address] Performed By: #### A LLBG ####[facility] LABCLIA [id number] [place] [id number] [place] [facility] 06-13-2024 07:40-0500 SaO2% (BldA) [Mass fraction] 100 % JOSE [facility] Comment on above: Order Comment: Specimen Type: ARTERIAL B LOOD SPECIMENOrdering Facility: [facility] Address: [address] [place], [place] [id number] Performed By: #### A LLBG ####[facility] LABCLIA [id number] [address] [address] [place] 06-13-2024 04:57-0500 SaO2% (BldA) [Mass fraction] 94 % JOSE [facility] Comment on above: Order Comment: Specimen Type: ARTERIAL B LOOD SPECIMENOrdering Facility: [facility] Address: [address] [place], [place] [id number] Performed By: #### A LLBG ####[facility] LABCLIA [id number] [address] [address] [place] 06-12-2024 10:42-0500 SaO2% (BldA) [Mass fraction] 98 % JSOE [facility] Comment on above: Order Comment: Specimen Type: ARTERIAL B LOOD SPECIMENOrdering Facility: [facility] Address: [address] [place], [place] [id number] Performed By: #### A LLBG ####[facility] LABCLIA [id number] [address] [address] [facility] 06-12-2024 09:19-0500 SaO2% (BldA) [Mass fraction] 96 % JOSE PARKER [facility] [place] Comment on above: Order Comment: Specimen Type: ARTERIAL B LOOD SPECIMENOrdering Facility: [facility] Address: [address] [place], [place] [id number] Performed By: #### A LLBG ####[facility] LABIA [id number] [place] [id number] [place] 06-12-2024 03:24-0500 SaO2% (BldA) [Mass fraction] 99 % JOSE LAZBUDDIECarole [facility] [place] Comment on above: Order Comment: Specimen Type: ARTERIAL B LOOD SPECIMENOrdering Facility: [facility] Address: [address] [place] [address] Performed By: #### A LLBG ####[facility] LABIA [id number] [place] [id number] [place] 06-11-2024 20:26-0500 SaO2% (BldA) [Mass fraction] 99 % JSOE PARKER [facility] [place] Comment on above: Order Comment: Specimen Type: ARTERIAL B LOOD SPECIMENOrdering Facility: [facility] Address: [address] [place], [place] [id number] Performed By: #### A LLBG ####[facility] LABIA [id number] [address] [address] [place] 06-11-2024 15:09-0500 SaO2% (BldA) [Mass fraction] 98 % JOSE PARKER [facility] [place] Comment on above: Order Comment: Specimen Type: ARTERIAL B LOOD SPECIMENOrdering Facility: [facility] Address: [address] [place], [place] [id number] Performed By: #### A LLBG ####[facility] LABIA [id number] [address] [address] [place] [facility] 06-11-2024 09:05-0500 SaO2% (BldA) [Mass fraction] 99 % JOSE [facility] Comment on above: Order Comment: Specimen Type: ARTERIAL B LOOD SPECIMENOrdering Facility: [facility] Address: [address] [place], [place] [id number] Performed By: #### A LLBG ####[facility] LABIA [id number] [place] [id number] [place] 06-06-2024 16:52-0500 SaO2% (BldA) [Mass fraction] 99 % JOSE LAZBUDDIECarole [facility] [place] Comment on above: Order Comment: Specimen Type: ARTERIAL B LOOD SPECIMENOrdering Facility: [facility] Address: [address] [place], [place] [id number] Performed By: #### A LLBG ####[facility] LABCLIA [id number] [place] [id number] [place] 05-20-2024 08:48-0500 Body height 182.[address] 05-20-2024 08:48-0500 Body mass index (BMI) [Ratio] 20.75 kg/m2 [address] 05-20-2024 08:48-0500 Body weight 69.[address] 05-20-2024 08:48-0500 Diastolic blood pressure 72 mm[Hg] [address] 05-20-2024 08:48-0500 Systolic blood pressure 114 mm[Hg] [address] 04-15-2024 08:26-0400 Body height 182.9 cm Shea Brannon MD Work Phone: [facility] 04-15-2024 08:26-0400 Body mass index (BMI) [Ratio] 20.75 kg/m2 Shea Brannon MD Work Phone: [facility] 04-15-2024 08:26-0400 Body weight 69.4 kg Shea Brannon MD Work Phone: [facility] 04-15-2024 08:26-0400 Diastolic blood pressure 78 mm[Hg] Shea Brannon MD Work Phone: [facility] 04-15-2024 08:26-0400 Heart rate 68 /min Shea Brannon MD Work Phone: [facility] 04-15-2024 08:26-0400 Systolic blood pressure 116 mm[Hg] Shea Brannon MD Work Phone: [facility] 02-17-2024 09:43-0400 Blood Pressure Location Sugey Lue [facility] 02-17-2024 09:43-0400 Diastolic blood pressure 80 mm[Hg] Sugey Lue [facility] 02-17-2024 09:43-0400 Heart rate 66 /min Sugey Lue [facility] 02-17-2024 09:43-0400 Respiratory rate 16 /min Sugey Lue [facility] 02-17-2024 09:43-0400 Systolic blood pressure 130 mm[Hg] Sugey Lue [facility] 08-13-2023 08:43-0500 Blood Pressure Location Sugey Lue [facility] 02-29-2024 08:43-0500 Diastolic blood pressure 84 mm[Hg] Sugey Lue [facility] 08-13-2023 08:43-0500 Systolic blood pressure 132 mm[Hg] Sugey Lue [facility] 05-27-2023 09:51-0500 Blood Pressure Location Sugey Lue [facility] 05-27-2023 09:51-0500 Diastolic blood pressure 83 mm[Hg] Sugey Lue [facility] 05-27-2023 09:51-0500 Heart rate 92 /min Sugey Lue [facility] 05-27-2023 09:51-0500 Respiratory rate 16 /min Sugey Lue [facility] 05-27-2023 09:51-0500 Systolic blood pressure 131 mm[Hg] Sugey Lue [facility] 04-10-2023 08:37-0400 Body height 182.9 cm Shea Brannon MD Work Phone: [facility] 04-10-2023 08:37-0400 Body mass index (BMI) [Ratio] 25.09 kg/m2 Shea Brannon MD Work Phone: [facility] 04-10-2023 08:37-0400 Body weight 83.92 kg Shea Brannon MD Work Phone: [facility] 04-10-2023 08:37-0400 Diastolic blood pressure 58 mm[Hg] Shea Brannon MD Work Phone: [facility] 04-10-2023 08:37-0400 Heart rate 62 /min Shea Brannon MD Work Phone: [facility] 04-10-2023 08:37-0400 Systolic blood pressure 106 mm[Hg] Shea Brannon MD Work Phone: [facility] 02-25-2023 09:09-0400 Blood Pressure Location Sugey Lue [facility] 02-25-2023 09:09-0400 Diastolic blood pressure 68 mm[Hg] Sugey Lue [facility] 02-25-2023 09:09-0400 Heart rate 68 /min Sugey Lue [facility] 02-25-2023 09:09-0400 Respiratory rate 16 /min Sugey Lue [facility] 02-25-2023 09:09-0400 Systolic blood pressure 130 mm[Hg] Sugey Lue [facility] 01-01-2023 13:30-0400 Body height 182.88 cm Imad Asaad Other [facility] [employer] Other 01-01-2023 13:30-0400 Body mass index (BMI) [Ratio] 24.41 kg/m2 Imad Asaad Other [employer] Other 01-01-2023 13:30-0400 Body weight 81.65 kg Imad Asaad Other [employer] Other 01-01-2023 13:30-0400 Diastolic blood pressure 76 mm[Hg] Imad Asaad Other [place] [employer] Other 01-01-2023 13:30-0400 Systolic blood pressure 146 mm[Hg] Imad Asaad Other [facility] [employer] Other 12-11-2022 13:53-0400 Diastolic blood pressure 78 mm[Hg] DO Elvira Bunting Work Phone: [facility] 12-11-2022 13:53-0400 Heart rate 74 /min DO Elvira Bunting Work Phone: [facility] 12-11-2022 13:53-0400 Respiratory rate 16 /min DO Elvira Bunting Work Phone: [facility] 12-11-2022 13:53-0400 SaO2% (BldA) [Mass fraction] 98 % DO Elvira Bunting Work Phone: [facility] 12-11-2022 13:53-0400 Systolic blood pressure 125 mm[Hg] DO Elvira Buntin g Work Phone: [facility] 12-11-2022 11:28-0400 Body height 182.88 cm DO Elvira Bunting Work Phone: [facility] 12-11-2022 11:28-0400 Body weight 78.92 kg DO Elvira Bunting Work Phone: [facility] 11-11-2022 07:42-0400 Body height 185.42 cm DO Elvira Bunting Work Phone: [facility] 11-11-2022 07:42-0400 Body weight 104.32 kg DO Elvira Bunting Work Phone: [facility] 10-08-2022 08:08-0400 Blood Pressure Location Sugey Lue [facility] 10-08-2022 08:08-0400 Diastolic blood pressure 96 mm[Hg] Sugey Lue [facility] 10-08-2022 08:08-0400 Heart rate 98 /min Sugey Lue [facility] 10-08-2022 08:08-0400 Systolic blood pressure 137 mm[Hg] Sugey Lue [facility] 09-10-2022 09:34-0400 Blood Pressure Location Sugey Lue [facility] 09-10-2022 09:34-0400 Diastolic blood pressure 89 mm[Hg] Usgey Lue [facility] 09-10-2022 09:34-0400 Heart rate 86 /min Sugey Lue [facility] 09-10-2022 09:34-0400 Respiratory rate 16 /min Sugey Lue [facility] 09-10-2022 09:34-0400 Systolic blood pressure 140 mm[Hg] Sugey Lue [facility] 03-27-2022 15:30-0400 Body height 182.88 cm Elvira R Bunting Work Phone: [facility] [facility] DO Work Phone: 03-27-2022 15:30-0400 Body mass index (BMI) [Ratio] 26.72 kg/m2 Elvira R Bunting Work Phone: [facility] [facility] DO Work Phone: 03-27-2022 15:30-0400 Body surface area Derived from formula 2.12 m2 Elvria R Bunting Work Phone: [facility] [facility] DO Work Phone: 03-27-2022 15:30-0400 Body weight 89.36 kg Elvira R Bunting Work Phone: [facility] [facility] DO Work Phone: 03-27-2022 15:30-0400 Diastolic blood pressure 80 mm[Hg] Elvira R Bunting Work Phone: [facility] [facility] DO Work Phone: 03-27-2022 15:30-0400 Heart rate 68 /min Elvira R Bunting Work Phone: [facility] [facility] DO Work Phone: 03-27-2022 15:30-0400 Systolic blood pressure 126 mm[Hg] Elvira R Bunting Work Phone: [facility] [facility] DO Work Phone: 12-24-2021 08:22-0400 Blood Pressure Location Mike Alves Jr. [facility] 12-24-2021 08:22-0400 Diastolic blood pressure 79 mm[Hg] Mike Alves Jr. [facility] 12-24-2021 08:22-0400 Heart rate 100 /min Mike Alves Jr. [facility] 12-24-2021 08:22-0400 Respiratory rate 16 /min Mike Alves Jr. [facility] 12-24-2021 08:22-0400 Systolic blood pressure 107 mm[Hg] Mike Long More [facility] Juan Diego Encounters Encounter Date Encounter Type Care Provider Facility Start: 08-19-2024 ambulatory VINICIUS Vesta YVONNE Kaylah ty:[facility] Del[facility] Start: 08-17-2024 ambulatory Sugey Johnsvesta Facility:[facility] Start: 07-28-2024 End: 07-29-2024 Refill Kasey Velasco EXPLOSIVE ORDNANCE TECHNICIAN.BREEDING TECHNICIAN Work Phone: [facility] Comment on above: Refill Request Start: 07-22-2024 End: 07-22-2024 ambulatory CARLINE PEREZ Facility:[facility] Start: 07-22-2024 End: 07-22-2024 Patient encounter procedure Carline Perez EXPLOSIVE ORDNANCE TECHNICIAN.BREEDING TECHNICIAN Work Phone: General Surgery Comment on above: Postoperative visit (Primary Dx) Start: 07-15-2024 End: 07-15-2024 ambulatory [facility] Facility:[facility] Start: 07-15-2024 End: 07-15-2024 [facility] Facility:[facility] Start: 07-08-2024 ambulatory VINICIUS RODRIGUEZRY Kaylah ty:[facility] Delgado Start: 06-20-2024 End: 06-20-2024 Telephone encounter Cindy Drummond MD Work Phone: Geriatrics Comment on above: Consult (Best practi ce) Start: 06-06-2024 End: 06-06-2024 Evaluation and management of inpatient [facility] Work Phone: Cardiology Start: 06-03-2024 End: 06-03-2024 Orders Only Blanca Huffman RN [facility] Start: 06-03-2024 End: 06-23-2024 Evaluation and management of inpatient ALONSO LORENZO Facility:[facility] Start: 05-20-2024 End: 05-20-2024 ambulatory [facility] Start: 05-20-2024 End: 05-20-2024 Subsequent hospital visit by physician Hung Riley Echo/Vasc Room 2 [facility] Comment on above: Shortness of breath Start: 05-09-2024 End: 05-09-2024 ambulatory Branden Woodward Facility:[facility] Start: 04-18-2024 End: 04-18-2024 Telephone encounter Liver Txp Coordinator Work Phone: [facility] Start: 04-15-2024 End: 04-15-2024 Office outpatient visit 25 minutes Shea Brannon MD Work Phone: [facility] Comment on above: Shortness of breath (Primary Dx); Sick sinus syndrome (Multi); Essential hypertension; Mixed hyperlipidemia; Pacemaker; BMI 20.0-20.9, adult; Liver transplanted (Multi); Former smoker Start: 04-15-2024 End: 04-15-2024 ambulatory [facility]ulatory Start: 04-11-2024 End: 04-11-2024 Bamboo flowsheet Jaswinder A Ashish EXPLOSIVE ORDNANCE TECHNICIAN-BREEDING TECHNICIAN Work Phone: [facility] Start: 04-11-2024 End: 04-11-2024 Bamboo flowsheet Jaswinder A Felter EXPLOSIVE ORDNANCE TECHNICIAN-BREEDING TECHNICIAN Work Phone: [facility] Start: 04-11-2024 End: 04-11-2024 Office outpatient visit 15 minutes Jaswinder Hinojosa EXPLOSIVE ORDNANCE TECHNICIAN-BREEDING TECHNICIAN Work Phone: [facility] Comment on above: Melanocytic nevus of trunk; Seborrheic keratosis; Actinic keratosis Start: 04-11-2024 End: 04-11-2024 ambulatory JASWINDER HINOJOSA Not Available Start: 02-17-2024 End: 02-17-2024 ambulatory Sugey Arteaga Facility:[facility] Start: 02-17-2024 End: 02-17-2024 Lab Drop off Sugey Arteaga [facility] Start: 02-17-2024 End: 02-17-2024 ambulatory Sugey Arteaga Facility:[facility] Start: 02-17-2024 End: 02-17-2024 Patient encounter procedure Sugey Arteaga [facility] [place] Start: 02-05-2024 End: 02-05-2024 Patient encounter procedure DO Elvira Bunting Work Phone: [facility]Pac[facility] Start: 02-05-2024 End: 02-05-2024 ambulatory DO Elvira Bunting Work Phone: [facility] Work Phone: Start: 12-04-2023 E-mail encounter fro m caregiver Karla Turner RN [facility] Start: 12-04-2023 Patient encounter procedure Karla Turner RN [facility] Comment on above: Lab Reminder Start: 11-06-2023 End: 11-06-2023 Patient encounter procedure DO Elvira Bunting Work Phone: [facility] Start: 11-06-2023 End: 11-06-2023 ambulatory DO Elvira Bunting Work Phone: [facility] Work Phone: Start: 10-24-2023 Refill Nely Tony s EXPLOSIVE ORDNANCE TECHNICIAN.BREEDING TECHNICIAN Work Phone: [facility] Comment on above: Refill Request Start: 08-17-2023 Refill Nely Tony s EXPLOSIVE ORDNANCE TECHNICIAN.BREEDING TECHNICIAN Work Phone: [facility] Comment on above: Refill Request Start: 08-13-2023 End: 08-13-2023 ambulatory Sugey MontesShaylee Johnsvesta Facility: [facility] Start: 08-13-2023 End: 08-13-2023 Patient encounter procedure Sugey Arteaga [facility] [place] Start: 08-07-2023 End: 08-07-2023 ambulatory Branden Woodward Facility:[facility] Start: 07-27-2023 Telephone encounter Karla Turner model builder display Center Comment on above: Insurance Authorizat ion (Tacrolimus ) Start: 05-27-2023 End: 05-27-2023 Patient encounter procedure Sugey Arteaga [facility] Start: 05-04-2023 End: 05-04-2023 ambulatory DO Elvira Bunting Work Phone: [facility] Work Phone: Start: 05-04-2023 End: 05-04-2023 Patient encounter procedure DO Elvira Bunting Work Phone: [facility] Start: 04-10-2023 End: 04-10-2023 Office outpatient visit 15 minutes Shea Brannon MD Work Phone: [facility] Comment on above: Sick sinus syndrome (CMS/HCC) (Primary Dx); Essential hypertension; Mixed hyperlipidemia; Overweight with body mass index (BMI) of 26 to 26.9 in adult; Liver transplanted (CMS/HCC); Pacemaker Start: 02-25-2023 End: 02-25-2023 Patient encounter procedure Sugey Arteaga [facility] Start: 02-23-2023 Telephone encounter Karla Turner [facility] Comment on above: Patient Update; Orde rs (New standing lab order ) Start: 01-15-2023 End: 01-15-2023 ambulatory DO Elvira Bunting Work Phone: [facility] Work Phone: Start: 01-15-2023 End: 01-15-2023 Patient encounter procedure DO Elvira Bunting Work Phone: [facility] Work Phone: Start: 01-01-2023 End: 01-01-2023 ambulatory Imad Asaad Other [employer] Other Start: 01-01-2023 Patient encounter procedure Imad Asaad [facility] Start: 12-11-2022 End: 12-11-2022 Admission to same day surgery center DO Elvira Bunting Work Phone: [facility] Work Phone: Start: 12-08-2022 End: 12-08-2022 ambulatory Imad Asaad Other [employer] Other Start: 12-08-2022 Telephone encounter Imad Asaad [facility] Start: 11-28-2022 End: 11-28-2022 ambulatory Imad Asaad Other [employer] Other Start: 11-28-2022 Telephone encounter Imad Asaad [facility] Start: 11-12-2022 End: 11-12-2022 ambulatory Imad Asaad Other [employer] Other Start: 11-12-2022 Telephone encounter Imad Asaad [facility] Start: 11-11-[address] Elvira Schultz Facility:[id number] Start: 11-11-2022 End: 11-11-2022 ambulatory DO Elvira Bunmaggie Work Phone: [facility] Work Phone: Start: 11-11-2022 End: 11-11-2022 Patient encounter procedure DO Elvira Bunmaggie Work Phone: [facility] [place] Work Phone: Start: 11-06-2022 End: 11-06-2022 Patient encounter procedure DO Elvira Bunmaggie Work Phone: [facility] [place] Work Phone: Start: 10-31-2022 End: 10-31-2022 Patient encounter procedure DO Elvira Schultz Work Phone: [facility] Start: 10-31-[address] Elvira Schultz Facility:[id number] Start: 10-20-2022 End: 10-21-[address] ELVIRA SCHULTZ Facility:[facility] Start: 10-09-[address] Elvira Schultz Facility:[id number] Start: 10-09-2022 End: 10-09-2022 ambulatory DO Elvira Schultz Work Phone: [facility] Work Phone: Start: 10-09-2022 End: 10-09-2022 Patient encounter procedure DO Elvira Schultz Work Phone: [facility] Start: 10-08-2022 End: 10-08-2022 Patient encounter procedure Sugey Arteaga [facility] Start: 09-26-2022 End: 09-26-[address] ELVIRA SCHULTZ Facility:[facility] Start: 09-22-2022 End: 09-22-2022 Patient encounter procedure Sugey Arteaga [facility] Start: 09-10-2022 End: 09-10-2022 Patient encounter procedure Sugey Arteaga [facility] Start: 09-03-2022 Refill Nely parker APRN.CNP Work Phone: [facility] Comment on above: Refill Request Start: 08-19-2022 End: 08-20-[address] ELVIRA SCHULTZ Facility:[facility] Start: 07-22-2022 End: 07-23-[address] ELVIRA SCHULTZ Facility:[facility] Start: 06-16-2022 End: 06-17-[address] ELVIRA SCHULTZ Facility:[facility] Start: 05-19-2022 End: 05-20-[address] ELVIRA SCHULTZ Facility:[facility] Start: 05-14-2022 Rx Renewal Elvira Pizano ng Work Phone: [facility] DO Work Phone: Start: 04-30-[address] Elvira Schultz Facility:[id number] Start: 04-30-2022 End: 04-30-2022 ambulatory DO Elvira Schultz Work Phone: [facility] Work Phone: Start: 04-30-2022 End: 04-30-2022 Patient encounter procedure DO Elvira Schultz Work Phone: [facility] Start: 04-21-2022 End: 04-22-2022 ambulatory DOCTOR MISC Facility:[facility]1 Start: 03-27-2022 Office outpatient vi sit 15 minutes Elvira Schultz Work Phone: [facility] DO Work Phone: Start: 03-27-[address] Shea Brannon Facility: Start: 03-17-2022 End: 03-18-2022 ambulatory DOCTOR MISC Facility:[facility] Start: 02-26-2022 End: 02-26-2022 Patient encounter procedure VINICIUS RUSSELL [facility] Start: 02-18-2022 End: 02-19-[address] ELVIRA SCHULTZ Facility:[facility] Start: 01-22-2022 Encounter for preprocedural laboratory examination DR MIKE June [facility] Start: 01-22-2022 End: 01-22-[address] ELVIRA SCHULTZ Facility:[facility] Start: 01-21-2022 End: 01-22-[address] MIKE June Facility:[facility] Start: 01-21-2022 End: 01-22-2022 Encounter for preprocedural laboratory examination DR MIKE June Facility:[facility] Start: 01-14-2022 Encounter for preprocedural cardiovascular examination DR MIKE June [facility] Start: 01-13-2022 End: 01-14-2022 Encounter for preprocedural cardiovascular examination DR ELVIRA SCHULTZ Facility:[facility] Start: 01-13-2022 End: 01-14-[address] ELVIRA SCHULTZ Facility:[facility] Start: 01-07-2022 Rx Renewal Shea gill MD Work Phone: [facility] DO Work Phone: Start: 12-24-2021 End: 12-24-2021 Patient encounter procedure Mike Alves Jr. [facility] Start: 12-23-2021 Telephone encounter [facility]or [facility] Work Phone: Start: 12-21-2021 End: 12-22-[address] ELVIRA SCHULTZ Facility:[facility]1 Start: 12-17-2021 End: 12-18-[address] ELVIRA SCHULTZ Facility:[facility] Start: 11-21-2021 End: 11-22-[address] ELVIRA SCHULTZ Facility:[facility] Start: 11-08-2021 Refill Cesar Borrego MD Work Phone: [facility] Comment on above: Refill Request Start: 10-17-2021 Telephone encounter Karla Turner RN [facility] Comment on above: Opened In Error Start: 09-15-2021 Refill Nely parker APRN.CNP Work Phone: [facility] Comment on above: Refill Request Start: 05-13-2021 Rx Renewal Shea gill MD Work Phone: [facility] 250 DO Work Phone: Start: 03-26-2017 [facility] SHEA Kruger [id number] Procedures Date Procedure Procedure Detail Performing Clinician Start: 06-21-2024 Antibody screen JOSE PARKER Comment on above: Order Comment: Specimen Type: BLOOD SPEC IMENOrdering Facility: [facility] Address: [address] [place] [address] Performed By: #### T SCR ####CC MAIN BLOOD BANKCLIA [id number] [address] Start: 06-18-2024 Antibody screen JOSE PARKER Comment on above: Order Comment: Specimen Type: BLOOD SPEC IMENOrdering Facility: [facility] Address: [address] [place] [address] Performed By: #### T SCR ####CC MAIN BLOOD BANKCLIA [id number] [address] Start: 06-15-2024 End: 06-15-2024 Antibody screen JOSE PARKER Comment on above: Order Comment: Specimen Type: BLOOD SPEC IMENOrdering Facility: [facility] Address: [address] [place] [address] Performed By: #### T SCR ####CC MAIN BLOOD BANKCLIA [id number] [address] Start: 06-13-2024 Antibody screen JOSE PARKER Comment on above: Order Comment: Specimen Type: BLOOD SPEC IMENOrdering Facility: [facility] Address: [address] [place] [address] Performed By: #### T SCR ####CC MAIN BLOOD BANKCLIA [id number] [address] Start: 06-11-2024 H/O: liver recipient S/P liver transplant Cindy Drummond MD Work Phone: Start: 06-10-2024 Antibody screen JOSE PARKER Comment on above: Order Comment: Specimen Type: BLOOD SPEC IMENOrdering Facility: [facility] Address: [address] [place] [address] Performed By: #### T SCR ####CC MAIN BLOOD BANKCLIA [id number] [address] Start: 06-09-2024 Echocardiography JOSE PARKER Start: 06-06-2024 Prgrmg dev eval implantable subq lead dfb system Kunal Funes MD Work Phone: Start: 06-03-2024 Antibody screen JOSE PARKER Comment on above: Order Comment: Specimen Type: BLOOD SPEC IMENOrdering Facility: [facility] Address: [address] [place] [address] Performed By: #### T SCR ####CC MAIN BLOOD BANKCLIA [id number] [address] Start: 05-20-2024 Echo tthrc r-t 2d w/wom-mode compl spec&colr d Shea Brannon MD Work Phone: Start: 04-11-2024 CRYOTHERAPY SKIN LESION Jaswinder A Ashish EXPLOSIVE ORDNANCE TECHNICIAN-BREEDING TECHNICIAN Work Phone: Start: 04-09-2023 H/O: liver recipient Liver transplanted Shea Brannon MD Work Phone: Start: 02-18-2023 Lipid 1996 panel - Serum or Plasma Taqueria Turner RN Start: 01-15-2023 Dual energy X-ray absorptiometry [...] on above: Performed By: #### BOX #### [facility] [address] [address] [address] Yogi Naidu Start: 01-22-2022 Transrectal biopsy of prostate using ultrasound guidance Sugey Arteaga Start: 12-21-2021 PSA screening DOCTOR MISC Comment on above: Performed By: #### ERUR, UMICRO #### [facility] [address] [place] [address] Dr. Yogi Naidu Start: 11-09-2019 Transrectal biopsy of prostate using ultrasound guidance Mike Alves Jr. Start: 05-19-2018 Transrectal biopsy of prostate using ultrasound guidance Mike Alves Jr. Start: 01-19-2015 H/O: liver recipient Liver transplanted Nely Ibarra APRN.BREEDING TECHNICIAN Work Phone: Start: 02-11-2012 Colonoscopy Nely Ibarra APRN.BREEDING TECHNICIAN Work Phone: Appendectomy Mike June Appendectomy Shea Brannon MD Work Phone: Biopsy of prostate Shea Brannon MD Work Phone: Comment on above: Aug 06; Cardiac pacemaker, d evice (physical object) Mike Alves Jr. Colonoscopy Mike June Colonoscopy Shea Brannon MD Work Phone: Comment on above: 15Jun2011; H/O: liver recipient Liver repla alessandro by transplant (HCC) Nely Ibarra APRN.BREEDING TECHNICIAN Work Phone: H/O: liver recipient Transplante d liver (HCC) Cesar Borrego MD Work Phone: H/O: liver recipient Liver transplanted M ashley Brannon MD Work Phone: H/O: liver recipient Liver trans plant recipient DO Elvira Schultz Work Phone: H/O: liver recipient Liver repla alessandro by transplant (HCC) Nely Ibarra EXPLOSIVE ORDNANCE TECHNICIAN.BREEDING TECHNICIAN Work Phone: H/O: liver recipient Liver trans planted (CMS/HCC) Shea Brannon MD Work Phone: H/O: liver recipient Liver repla alessandro by transplant (HCC) Nely Ibarra EXPLOSIVE ORDNANCE TECHNICIAN.BREEDING TECHNICIAN Work Phone: H/O: liver recipient Transplante d liver (HCC) Nely Ibarra EXPLOSIVE ORDNANCE TECHNICIAN.BREEDING TECHNICIAN Work Phone: H/O: liver recipient Liver trans planted (Multi) Shea Brannon MD Work Phone: H/O: liver recipient Liver repla alessandro by transplant (HCC) Kasey Velasco EXPLOSIVE ORDNANCE TECHNICIAN.BREEDING TECHNICIAN Work Phone: Hernia repair Shea Brannon MD Work Phone: Surgical procedure Shea Brannon MD Work Phone: Comment on above: vein removal from leg; Tonsillectomy Mike ch Transplantation of liver Elsy Brannon MD Work Phone: Transplantation of liver Deanne Arteaga Plan of Treatment Date Care Activity Detail Author Start: 02-19-2028 Lipid panel Lipid Screening [facility] Start: 02-19-2028 [address]EN [address] SCREEN [facility] Start: 07-22-2027 L[address]ID SCREEN LIPID SCREEN [facility] Start: 06-23-2027 Diabetes Screening Diabetes Screenin [facility] Start: 06-20-2027 Diabetes Screening Diabetes Screenin g [facility] Start: 06-06-2027 Diabetes Screening Diabetes Screenin g [facility] Start: 06-03-2027 Diabetes Screening Diabetes Screenin g [facility] Start: 2027 RSV Vaccine (1 - 1-d ose 75+ series) RSV Vaccine (1 - 1-dose 75+ series) [facility] Start: 02-15-2027 Diabetes Screening Diabetes Screenin g [facility] Start: 10-15-2026 L[address] SCREEN LIPID SCREEN [facility] Start: 08-19-2026 L[address]ID SCREEN LIPID SCREEN [facility] Start: 08-16-2026 Diabetes Screening Diabetes Screenin g [facility] Start: 06-16-2026 Diabetes Screening Diabetes Screenin g [facility] Start: 02-18-2026 DIABETES SCREEN DIABETES SCREEN [facility] Start: 08-19-2025 DIABETES SCREEN DIABETES SCREEN [facility] Start: 07-22-2025 BP Controlled (<130/80) BP Controlle d (<130/80) [facility] Start: 04-21-2025 End: 04-21-2025 Patient encounter procedure 04/21/2025 8:30 AM EST Office Visit [facility] [address] [facility] [address] [place] [address] Shea Brannon MD [address] [facility] [address] [place] [address] [facility] Start: 04-10-2025 End: 04-10-2025 Patient encounter procedure 04/10/2025 8:55 AM EDT Office Visit [facility] [address] [place] [id number] Jaswinder Hinojosa APRN-BREEDING TECHNICIAN [address] [place] [address] [facility] Start: 10-15-2024 DIABETES SCREEN DIABETES SCREEN [facility] Start: 08-19-2024 DIABETES SCREEN DIABETES SCREEN [facility] Start: 06-15-2024 Advance Directive Discussion Advance Directive Discussion [facility] Start: 05-20-2024 End: 05-20-2024 Patient encounter procedure 05/20/2024 8:45 AM EST Appointment [facility] [address] [facility] [address] [place] [address] [facility] Start: 04-15-2024 End: 04-15-2026 Heart Transthoracic Transthoracic Echo Complete Echocardiography Routine Shortness of breath Expected: 04/15/2024 (Approximate), Expires: 04/15/2026 [facility] Service Area Work Phone: Comment on above: Expected: 04/15/2024 (Approximate), Expires: 04/15/2026 Start: 04-15-2024 End: 04-15-2024 Patient encounter procedure 04/15/2024 8:30 AM EDT Office Visit [facility] [address] [place] [address] Shea Brannon MD [address] [facility] [address] [place] [address] [facility] Start: 04-11-2024 End: 04-11-2024 Patient encounter procedure 04/11/2024 9:05 AM EDT Office Visit [facility] [address] [place] [address] Jaswinder Hinojosa, EXPLOSIVE ORDNANCE TECHNICIAN-BREEDING TECHNICIAN [address] [place] [address] Arrived [facility] Comment on above: Arrived Start: 02-14-2024 Influenza vaccination Influenza Vacc ine (#1) [facility] Start: 06-15-2023 Advance Directive Discussion Advance Directive Discussion [facility] Start: 06-15-2023 Behavioral Health Screening Behavioral Health Screening [facility] Start: 06-15-2023 Depression Assessment Depression Ass essment [facility] Start: 04-10-2023 FUV, Provider: Shea Brannon, Status: Pen, Time: 8:30 AM FUV, Provider: Shea Brannon, Status: Pen, Time: 8:30 AM [facility] [address] DO Work Phone: Start: 02-13-2023 Influenza vaccination INFLUENZA (#1) [facility] Start: 12-11-2022 [facility] Start: 06-15-2022 ADVANCE DIRECTIVE DISCUSSION ADVANCE DIRECTIVE DISCUSSION [facility] Start: 06-15-2022 DEPRESSION ASSESSMENT DEPRESSION ASS ESSMENT [facility] Start: 02-13-2022 Influenza vaccination C [facility] Start: 02-10-2022 Screening for malign ant neoplasm of colon [facility] Start: 01-13-2022 FUV, Provider: Shea Brannon, Status: Pen, Time: 8:20 AM FUV, Provider: Shea Brannon, Status: Pen, Time: 8:20 AM [facility] [address] DO Work Phone: Start: 12-06-2021 FUV, Provider: Shea Brannon, Status: Pen, Time: 8:30 AM FUV, Provider: Shea Brannon, Status: Pen, Time: 8:30 AM [facility] 250 DO Work Phone: Start: 06-15-2021 ADVANCE DIRECTIVE DISCUSSION ADVANCE DIRECTIVE DISCUSSION [facility] Start: 04-27-2021 Pneumococcal Vaccine : 65+ Years (3 - PPSV23 or PCV20) Pneumococcal Vaccine: 65+ Years (3 - PPSV23 or PCV20) [facility] Start: 06-22-2020 Pneumococcal Vaccine : 50+ (3 of 3 - PPSV23, PCV20 or PCV21) Pneumococcal Vaccine: 50+ (3 of 3 - PPSV23, PCV20 or PCV21) [facility] Start: 06-22-2020 Pneumococcal Vaccine : 65+ (3 of 3 - PPSV23 or PCV20) Pneumococcal Vaccine: 65+ (3 of 3 - PPSV23 or PCV20) [facility] Start: 06-22-2020 Pneumococcal Vaccine : 65+ Years (3 of 3 - PPSV23 or PCV20) Pneumococcal Vaccine: 65+ Years (3 of 3 - PPSV23 or PCV20) [facility] Start: 06-22-2020 Shingrix Vaccine (2 of 2) Shingrix Vaccine (2 of 2) [facility] Start: 06-22-2020 Zoster Vaccines (2 o f 2) Zoster Vaccines (2 of 2) [facility] Start: 10-26-2017 PNEUMOVAX AGE 65 AND OVER WITH 5YR LOOKBACK (#1) PNEUMOVAX AGE 65 AND OVER WITH 5YR LOOKBACK (#1) [facility] Start: 2017 Abdominal aortic aneurysm screening Abdominal Aortic Aneurysm (AAA) Screening [facility] Start: 2017 ADULT PREVNAR ADULT PREVNAR [facility] Start: 2017 ADULT PREVNAR-13 ADULT PREVNAR-13 Cl jimbo [facility] Start: 10-26-2013 PNEUMOCOCCAL: 65+ (2 - PCV) PNEUMOCOCCAL: 65+ (2 - PCV) [facility] Start: 02-10-[address] [facility] Start: 02-10-2013 COLORECTAL CANCER SCREENING COLORECTAL CANCER SCREENING [facility] Start: 02-10-2013 Screening for malign ant neoplasm of colon [facility] Start: 11-23-2012 HEPATITIS A (2 of 3 - Hep A Twinrix risk 3-dose series) HEPATITIS A (2 of 3 - Hep A Twinrix risk 3-dose series) [facility] Start: 11-23-2012 Hepatitis A Vaccine (2 of 3 - Hep A Twinrix risk 3-dose series) Hepatitis A Vaccine (2 of 3 - Hep A Twinrix risk 3-dose series) [facility] Start: 11-23-2012 Hepatitis A Vaccines (2 of 3 - Hep A Twinrix risk 3-dose series) Hepatitis A Vaccines (2 of 3 - Hep A Twinrix risk 3-dose series) [facility] Start: 11-23-2012 HEPATITIS B (2 of 3 - Hep B Twinrix risk 3-dose series) HEPATITIS B (2 of 3 - Hep B Twinrix risk 3-dose series) [facility] Start: 11-23-2012 Hepatitis B Vaccine (2 of 3 - Hep B Twinrix risk 3-dose series) Hepatitis B Vaccine (2 of 3 - Hep B Twinrix risk 3-dose series) [facility] Start: 11-23-2012 Hepatitis B Vaccines (2 of 3 - Hep B Twinrix risk 3-dose series) Hepatitis B Vaccines (2 of 3 - Hep B Twinrix risk 3-dose series) [facility] Start: 2012 RSV High Risk: (Elde rly (60+) or Population) (1 - Risk 60-74 years 1-dose series) RSV High Risk: (Elderly (60+) or Population) (1 - Risk 60-74 years 1-dose series) [facility] Start: 2012 RSV Vaccine (1 - 1-d ose 60+ series) RSV Vaccine (1 - 1-dose 60+ series) [facility] Start: 2012 RSV Vaccine (1 - Ris k 60-74 years 1-dose series) RSV Vaccine (1 - Risk 60-74 years 1-dose series) [facility] Start: 2002 SHINGRIX VACCINE (1 of 2) SHINGRIX VACCINE (1 of 2) [facility] Start: 1997 COLOGUARD (FIT-DNA) COLOGUARD (FIT-D NA) [facility] Start: [address] COLONOGRAPHY [facility] Start: 1997 FECAL OCCULT BLOOD FECAL OCCULT BLOO D [facility] Start: 1997 Screening for malign ant neoplasm of colon [facility] Start: 1997 SIGMOIDOSCOPY SIGMOIDOSCOPY [facility] Start: 1974 DTaP/Tdap/Td Vaccine s (1 - Tdap) DTaP/Tdap/Td Vaccines (1 - Tdap) [facility] Start: 1971 SHINGRIX VACCINE (1 of 2) SHINGRIX VACCINE (1 of 2) [facility] Start: [address] [facility] Start: 1970 Annual PCP Team Clinical Case Manager winifred Disease Visit Annual PCP Team Chronic Disease Visit [facility] Start: 1970 Anxiety Screening Anxiety Screening [facility] Start: 1970 BP Controlled (<130/80) BP Controlle d (<130/80) [facility] Start: 1970 Depression Screening Depression Scre ening [facility] Start: [address] [facility] Start: 1964 Adult depression screening assessment DEPRESSION SCREENING [facility] Start: 1964 COVID-19 VACCINE (1) COVID-19 VACCIN E (1) [facility] Start: 1957 COVID-19 VACCINE (#1) COVID-19 VACCI NE (#1) [facility] Start: 1952 COVID-19 VACCINE (#1) COVID-19 VACCI NE (#1) [facility] Start: 1952 ABDOMINAL AORTIC ANEURYSM SCREENING ABDOMINAL AORTIC ANEURYSM SCREENING [facility] Start: 1952 Abdominal aortic aneurysm screening Abdominal Aortic Aneurysm Screening [facility] Start: 1952 Lipid panel Lipid Panel [facility] Start: 1952 Medicare Annual Wellness Visit Medicare Annual Wellness Visit (AWV) [facility] Start: 1952 Screening for malign ant neoplasm of colon [facility] Calprotectin [Mass/mass] in Stool [facility] CARDIAC IMPLANTABLE DEVICE CHECK CARDIAC IMPLANTABLE DEVICE CHECK PACEART STAT 06/06/2024 2:04 PM EST [facility] Work Phone: Ova and parasites identified in Unspecified specimen by Light microscopy [facility] Patient Education Gastritis Esop hageal Dilation Colon Polypectomy (DC) [facility] Work Phone: Potassium [Moles/mas s] in Stool [facility] Immunizations Immunization Date Immunization Notes Care Provider Laisha wilder 01-27-2023 Flu vaccine, quadrivalent, high-dose, preservative free, age 65y+ (FLUZONE) Shea Brannon MD Work Phone: [facility] Work Phone: 01-27-2023 influenza virus vaccine, unspecified formulation Sugey Arteaga [facility] 05-30-2022 Flu vaccine, quadrivalent, high-dose, preservative free, age 65y+ (FLUZONE) Shea Brannon MD Work Phone: [facility] Work Phone: 05-30-2022 influenza virus vaccine, unspecified formulation Sugey Arteaga [facility] 04-20-2021 Fluad Quadrivalent 0 .5 ML Intramuscular Prefilled Syringe Elvira R Bunting Work Phone: [facility] 250 DO Work Phone: 04-20-2021 influenza virus vaccine, unspecified formulation Sugey Lue [facility] 04-27-2020 Fluad Quadrivalent 0 .5 ML Intramuscular Prefilled Syringe Elvira R Bunting Work Phone: [facility] 250 DO Work Phone: 04-27-2020 influenza virus vaccine, unspecified formulation Sugey Lue [facility] 04-27-2020 pneumococcal conjuga te vaccine, 13 valent Elvira R Bunting Work Phone: [facility] 04-27-2020 zoster vaccine recombinant Elvira R Bunting Work Phone: [facility] 03-15-2020 influenza virus vaccine, unspecified formulation Shea Brannon MD Work Phone: [facility] 03-15-2020 influenza, seasonal, injectable Shea Brannon MD Work Phone: [facility] Work Phone: 02-16-2019 influenza virus vaccine, unspecified formulation Sugey Lue [facility] 02-16-2019 influenza, high dose seasonal, preservative-free Elvira R Bunting Work Phone: [facility] 250 DO Work Phone: 06-15-2018 influenza virus vaccine, unspecified formulation Shea Brannon MD Work Phone: [facility] 06-15-2018 influenza, seasonal, injectable Shea Brannon MD Work Phone: [facility] Work Phone: 04-15-2018 influenza virus vaccine, unspecified formulation Shea Brannon MD Work Phone: [facility] 600 DO Work Phone: 02-22-2018 influenza virus vaccine, unspecified formulation Sugey Lue [facility] 02-22-2018 influenza, high dose seasonal, preservative-free Elvira R Bunting Work Phone: [place] [address] DO Work Phone: 02-16-2017 influenza virus vaccine, unspecified formulation Shea Brannon MD Work Phone: [facility] 600 DO Work Phone: 02-11-2017 influenza virus vaccine, unspecified formulation Sugey Lue [facility] 02-11-2017 influenza, injectabl e, quadrivalent, preservative free Shea Brannon MD Work Phone: [facility] Work Phone: 04-23-2016 influenza virus vaccine, unspecified formulation Sugey Lue [facility] 04-23-2016 influenza, injectabl e, quadrivalent, preservative free Elvira R Bunting Work Phone: [facility] 250 DO Work Phone: 04-12-2015 influenza virus vaccine, unspecified formulation Sugey Lue [facility] 04-12-2015 influenza, injectabl e, quadrivalent, preservative free Elvira Schultz Work Phone: -[facility] 250 DO Work Phone: 10-26-2012 hepatitis A and hepatitis B vaccine Nely Ibarra EXPLOSIVE ORDNANCE TECHNICIAN.BREEDING TECHNICIAN Work Phone: [facility] 10-26-2012 pneumococcal polysaccharide vaccine, 23 valent Nely Ibarra EXPLOSIVE ORDNANCE TECHNICIAN.BREEDING TECHNICIAN Work Phone: [facility] 10-26-2012 hepatitis B vaccine, unspecified formulation Nely Ibarra EXPLOSIVE ORDNANCE TECHNICIAN.BREEDING TECHNICIAN Work Phone: [facility] Payers Date Payer Category Payer Self-pay [id number] 2021 Medicare ANTHEM MEDICARE ANTHEM MEDICARE ADVANTAGE [id number] 2021-Present [address] [place] [address] [id number] 2021 Medicare (Managed Care) 1.2. [id number] 2021 Unknown [facility] BLUE [facility] S AND BLUE SHIELD ANTH MEDIBLUE ACCESS [id number] 2021-Present [phone] [address] [place] [address] PPO [id number] 2021 Medicare [id number] 2019 Unknown 1959 Medicare [id number] 1952 Unknown [id number] 2.16.840.1.744258.3.579.2 .593 1952 Unknown [id number] 2.16.840.1.980941.3.579.2 .593 1952 Unknown [id number] 2.16.840.1.956478.3.579.2 .593 1952 Unknown [id number] 2.16.840.1.759761.3.579.2 .593 1952 Unknown [id number] 2.16.840.1.814564.3.579.2 .593 1952 Unknown [id number] 2.16.840.1.681711.3.579.2 .593 1952 Unknown [id number] 2.16.840.1.043554.3.579.2 .593 1952 Unknown [id number] 2.16.840.1.817137.3.579.2 .593 1952 Unknown [id number] 2.16.840.1.735093.3.579.2 .593 1952 Unknown [id number] 2.16.840.1.092901.3.579.2 .593 1952 Unknown [id number] 2.16.840.1.234529.3.579.2 .593 1952 Unknown [id number] 2.16.840.1.991345.3.579.2 .593 1952 Unknown [id number] 2.16.840.1.834248.3.579.2 .593 1952 Unknown [id number] 2.16.840.1.370745.3.579.2 .593 1952 Unknown [id number] 2.16.840.1.864108.3.579.2 .593 1952 Unknown [id number] 2.16.840.1.696403.3.579.2 .593 1952 Unknown [id number] 2.16.840.1.263391.3.579.2 .593 1952 Unknown [id number] 2.16.840.1.634729.3.579.2 .356 1952 Unknown [id number] 2.16.840.1.141365.3.579.2 .356 1952 Unknown [id number] 2.16.840.1.739126.3.579.2 .356 1952 Unknown [id number] 2.16.840.1.625627.3.579.2 .356 1952 Unknown [id number] 2.16.840.1.057697.3.579.2 .356 1952 Unknown [id number] 2.16.840.1.551504.3.579.2 .1259 1952 Unknown [id number] 2.16.840.1.089432.3.579.2 .1244 1952 Unknown [id number] 2.16.840.1.774313.3.579.2 .1246 1952 Unknown [id number] 2.16.840.1.599332.3.579.2 .727 1952 Unknown [id number] 2.16.840.1.887301.3.579.2 .727 1952 Unknown [id number] 2.16.840.1.664283.3.579.2 .727 1952 Unknown [id number] 2.16.840.1.997925.3.579.2 .727 1952 Unknown [id number] 2.16.840.1.064427.3.579.2 .727 1952 Unknown [id number] 2.16.840.1.596919.3.579.2 .727 Medicare Medicare [id number] Unknown [id number] Unknown HCAP/HFA/FAP Active [id number] Unknown [id number] 2.16.840.1.798506.3.579.2 .531 Unknown [id number] 2.16.840.1.803745.3.579.2 .531 Unknown [id number] 2.16.840.1.141530.3.579.2 .531 Unknown [id number] 2.16.840.1.776335.3.579.2 .531 Social History Date Type Detail Facility Start: 12-24-2021 End: 07-15-2024 Tobacco smoking status NHIS Ex-smoker [facility] Start: 02-18-2017 End: 07-22-2024 Alcohol intake Current non-drinker of alcohol (finding) [facility] Start: 1950 Sex Assigned At Not on file C [facility] Start: 08-13-2023 End: 02-17-2024 Tobacco smoking status Never [facility] Start: 12-11-2017 End: 06-04-2024 Sex Assigned At Male [facility] Start: 12-11-2017 End: 06-04-2024 Caffeine use Caffeine use [facility] Work Phone: Comment on above: 1.5 cups of coffee a nd a quart of Iced Tea daily; quit around ; 1.5 cups of coffee; Start: 1950 Sex Assigned At Male [facility] End: 06-15-1982 History of tobacco use Current smoker [facility] Start: 11-29-2012 End: 07-15-2024 Tobacco use and exposure Smokeless tobacco non-user [facility] End: 06-15-1982 History of tobacco use Cigarette Smoker [facility] Work Phone: Start: 04-10-2023 End: 04-15-2024 Alcohol intake Lifetime non-drinker (finding) [facility] Work Phone: Start: 03-31-2023 End: 05-20-2024 Exposure to SARS-CoV-2 (event) Not sure [facility] Start: 03-31-2023 End: 04-11-2024 Alcoholic beverage intake [facility] Has the electric, [employer], oil, or water company threatened to shut off services in your home in past 12Mo No [facility] Work Phone: (I/We) worried wheth er (my/our) food would run out before (I/we) got money to buy more. Never true [facility] Start: 07-15-2024 Tobacco Comment QUIT [facility] Medical Equipment Procedure Code Equipment Code Equipment [...] Insertion, pacemaker PACEMAKER ASSURITY MRI RF DR FDA Start: 04-14-2018 [id number] Isoflex Optim [id number] Start: 04-14-2018 [id number]s [id number] Start: 04-14-2018 [id number] Assurity [id number] Start: 04-14-2018 Goals Date Patient Goal Desired Activity /State Personal health goal Functional Status Date Assessment Result Facility 02-17-2024 Functional Status N/A [facility] 08-13-2023 Functional Status N/A [facility] 05-27-2023 Functional Status N/A [facility] 02-25-2023 Functional Status N/A [facility] 10-08-2022 Functional Status N/A [facility] 09-15-2022 Functional Status N/A [facility] 09-10-2022 Functional Status N/A [facility] 02-26-2022 Functional Status N/A [facility] 12-24-2021 Functional Status N/A [facility] 02-07-2015 Are you deaf, or do you have serious difficulty hearing No 02/07/2015 10:20 AM Luis Copeland APRN.BREEDING TECHNICIAN No [facility] Work Phone: 02-07-2015 Are you blind, or do you have serious difficulty seeing, even when wearing glasses No 02/07/2015 10:20 AM Luis Copeland APRN.BREEDING TECHNICIAN No [facility] 02-07-2015 Do you have serious difficulty walking or climbing stairs No 02/07/2015 10:20 AM Luis Copeland APRN.BREEDING TECHNICIAN No [facility] 02-07-2015 Do you have difficul ty dressing or bathing No 02/07/2015 10:20 AM Luis Copeland, MARTA.BREEDING TECHNICIAN No [facility] 02-07-2015 Because of a physica l, mental, or emotional condition, do you have difficulty doing errands alone such as visiting a physician's office or shopping No 02/07/2015 10:20 AM Luis Copeland, MARTA.BREEDING TECHNICIAN No [facility] Mental Status Date Assessment Result Facility 02-07-2015 Because of a physica l, mental, or emotional condition, do you have serious difficulty concentrating, remembering, or making decisions No 02/07/2015 10:20 AM Luis Copeland, MARTA.NELSY No [facility] Clinical Notes 02-07-2015 to 07-22-2024 Carline Perez APRN.BREEDING TECHNICIAN - 07/22/2024 11:35 AM Ragini Llanes MA - 07/22/2024 11:27 AM ESTTelephone Encounter - Darrian Smith - 06/20/2024 12:31 PM ESTPatient InstructionsPatient Instructions Note Date & Type Note Facility 07-22-2024 Note [facility] 07-22-2024 History of Present illness Narrative Images from the original note were not included. [facility] Clinic Date: July 22, 2024 Susan Sherman 74 year old male CHIEF COMPLAINT: Patient presents for follow up from surgery. HPI: Here for follow up after ex lap and lysis of adhesions on 06/06/[address] Funes. D Pain: Minimal. Incisional Drainage: Denies Incisional Erythema: Superior portion Fever/Chills: Denies Increased Heart Rate: Denies Constipation: Endorses - taking Miralax daily Diarrhea: Denies Nausea/Vomiting: Denies Difficulty Voiding: Mejia catheter removed yesterday - having some increased frequency today Decreased Urine Output: Denies Shortness of Breath: Endorses with ambulation/activity Cough / Wheezing: Denies Calf/Thigh pain or swelling: Denies Current Diet: Regular Present Activity level: Working with physical therapy Surgery Date and Procedure: 06/06/2024 1. Exploratory laparotomy 2. Lysis of adhesions Randomized Controlled Trial: N/A Current Medications: Current Outpatient Medications Medication Sig Dispense Refill tacrolimus IR (PROGRAF) 0.5 mg capsule Take 3 capsules by mouth every 12 hours at 6 am and 6 pm. magnesium hydroxide (MOM) 400 mg/5 mL suspension Take 30 mL by mouth two times a day. senna-docusate (SENNA-S) 8.6-50 mg per tablet Take 1 tablet by mouth two times a day. tamsulosin (FLOMAX) 0.4 mg Take 2 capsules by mouth daily at bedtime. acetaminophen (TYLENOL) 500 mg tablet Take 1 tablet by mouth every 8 hours. apixaban (ELIQUIS) 5 mg tab(s) Take 1 tablet by mouth two times a day. melatonin 3 mg tablet 2 tablets by ORAL/FEEDING TUBE route daily at bedtime. QUEtiapine (SEROQUEL) 25 mg tablet Take 1 tablet by mouth at bedtime as needed. polyethylene glycol 3350 17 gram packet 1 Packet by ORAL/FEEDING TUBE route once daily as needed. Dissolve dose in 4 - 8 ounces of liquid and take as directed. ondansetron orally disintegrating (ZOFRAN ODT) 4 mg disintegrating tablet Take 1 tablet by mouth every 6 hours as needed. ipratropium-albuterol (DUONEB) 0.5 mg-3 mg(2.5 mg base)/3 mL nebu Inhale 3 mL as instructed every 6 hours as needed for wheezing/shortness of breath. sulfamethoxazole-trimethoprim (BACTRIM DS) 800-160 mg per tablet TAKE 1 TABLET BY MOUTH DAILY ON THURSDAY, THURSDAY, AND THURSDAY 39 tablet 3 amLODIPine (NORVASC) 5 mg tablet Take 1 tablet by mouth once daily. 0 metoprolol tartrate, short acting, (LOPRESSOR) 25 mg tablet Take 1 tablet by mouth twice daily. No current facility-administered medications for this visit. REVIEW OF SYSTEMS: CONSTITUTIONAL: Patient denies fevers, chills, sweats CARDIOVASCULAR: Patient denies chest pains, palpitations RESPIRATORY: No dyspnea on exertion, no wheezing or cough. GI: No diarrhea. No constipation. No nausea/vomiting. MUSCULOSKELETAL: No new myalgias or arthralgias. DERMATOLOGIC: Patient denies any rashes or skin changes. PHYSICAL EXAM: BP 107/69 Pulse 92 Temp 36.2 C (97.1 F) (Temporal) Ht 182.9 cm (6') Wt 62.6 kg (138 lb) BMI 18.72 kg/m GENERAL: No apparent distress. Pt is alert and oriented x3. LUNGS: Lungs clear and equal. No wheezing HEART: Regular rate and rhythm without murmur. No leg edema ABDOMEN: Soft, nontender, and nondistended. Positive bowel sounds. EXTREMITIES: Without any cyanosis, clubbing, rash, lesions or edema. INCISIONS: Clean, dry, intact, well approximated. Erythema at superior portion of midline SURGICAL PATHOLOGY: 06/06/2024 FINAL DIAGNOSIS A. 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 ASSESSMENT/PLAN: 1. Postoperative visit - ICD9: V58.49, ICD10: Z48.89 -Recovering well -Doxycyline 100 mg BID for 5 days for concern of cellulitis (order written for SNF) -Continue stool softener/laxative PRN for constipation -Encouraged to increase fluids now that mejia catheter removed -Discussed increased ambulation and deep breathing exercises for [place] - if no improvement, plan for referral to pulmonology -Continue working with physical therapy -Follow up PRN Carline Perez, MSN, BREEDING TECHNICIAN July 22, 2024 What is the reason for your visit today? Post op Who is your referring physician? Dr. Perez Are you having poor oral intake? YES Have you had unintentional weight loss of 15 lbs/7 Kg in the last 3-6 months? YES Bowels: constipated Wound: clean & dry Temperature: No Drains: No documented in this encounter [facility] 07-22-2024 Note [facility] 07-08-2024 Note Patient Education Urology Acute Urinary Retention, Male Acute urinary retention is a condition in which a person is unable to pass urine or can only pass a little urine. This condition can happen suddenly and last for a short time. If left untreated, it can become long-term (chronic) and result in kidney damage or other serious complications. What are the causes? This condition may be caused by: ??? Obstruction or narrowing of the tube that drains the bladder (urethra). This may be caused by surgery, problems with nearby organs, or injury to the bladder or urethra. ??? Problems with the nerves in the bladder. ??? Tumors in the area of the pelvis, bladder, or urethra. ??? Certain medicines. ??? Bladder or urinary tract infection. ??? Constipation. What increases the risk? This condition is more likely to develop in older men. As men age, their prostate may become larger and may start to press or squeeze on the bladder or the urethra. Other chronic health conditions can increase the risk of acute urinary retention. These include: ??? Diseases such as multiple sclerosis. ??? Spinal cord injuries. ??? Diabetes. ??? Degenerative cognitive conditions, such as delirium or dementia. ??? Psychological conditions. A man may hold his urine due to trauma or because he does not want to use the bathroom. What are the signs or symptoms? Symptoms of this condition include: ??? Trouble urinating. ??? Pain in the lower abdomen. How is this diagnosed? This condition is diagnosed based on a physical exam and your medical history. You may also have other tests, including: ??? An ultrasound of the bladder or kidneys or both. ??? Blood tests. ??? A urine analysis. ??? Additional tests may be needed, such as a CT scan, MRI, and kidney or bladder function tests. How is this treated? Treatment for this condition may include: ??? Medicines. ??? Placing a thin, sterile tube (catheter) into the bladder to drain urine out of the body. This is called an indwelling urinary catheter. After it is inserted, the catheter is held in place with a small balloon that is filled with sterile water. Urine drains from the catheter into a collection bag outside of the body. ??? Behavioral therapy. ??? Treatment for other conditions. If needed, you may be treated in the hospital for kidney function problems or to manage other complications. Follow these instructions at home: Medicines ??? Take gser-jff-mcetywh and prescription medicines only as told by your health care provider. Avoid certain medicines, such as decongestants, antihistamines, and some prescription medicines. Do not take any medicine unless your health care provider approves. ??? If you were prescribed an antibiotic medicine, take it as told by your health care provider. Do not stop using the antibiotic even if you start to feel better. General instructions ??? Do not use any products that contain nicotine or tobacco. These products include cigarettes, chewing tobacco, and vaping devices, such as e-cigarettes. If you need help quitting, ask your health care provider. ??? Drink enough fluid to keep your urine pale yellow. ??? If you have an indwelling urinary catheter, follow the instructions from your health care provider. ??? Monitor any changes in your symptoms. Tell your health care provider about any changes. ??? If instructed, monitor your blood pressure at home. Report changes as told by your health care provider. ??? Keep all follow-up visits. This is important. Contact a health care provider if: ??? You have uncomfortable bladder contractions that you cannot control (spasms). ??? You leak urine with the spasms. Get help right away if: ??? You have chills or a fever. ??? You have blood in your urine. ??? You have a catheter and the following happens: ? Your catheter stops draining urine. ? Your catheter falls out. Summary ??? Acute urinary retention is a condition in which a person is unable to pass urine or can only pass a little urine. If left untreated, this condition can result in kidney damage or other serious complications. ??? An enlarged prostate may cause this condition. As men age, their prostate gland may become larger and may press or squeeze on the bladder or the urethra. ??? Treatment for this condition may include medicines and placement of an indwelling urinary catheter. ??? Monitor any changes in your symptoms. Tell your health care provider about any changes. This information is not intended to replace advice given to you by your health care provider. Make sure you discuss any questions you have with your health care provider. Document Revised: 02/20/2021 Document Reviewed: 02/20/2021 [employer] Patient Education ? 2023 [employer] [facility] 06-23-2024 Note [facility] 06-22-2024 Note [facility] 06-22-2024 Note [facility] 06-22-2024 Note [facility] 06-21-2024 Note [facility] 06-21-2024 Note [facility] 06-21-2024 Note [facility] 06-20-2024 Telephone encounter Note Consult Received in [facility] For: Dx: Delirium, worsening confusion Bed Number: H50-21 Ordering: Enriqueta Fowler APRN.CNP Pgr: Attending: Enriqueta Fowler APRN.CNP Pgr: IPC Staff Dr. Drummond and IP Consult have been paged. [facility] 06-20-2024 Miscellaneous Notes Consult Received in [facility] For: Dx: Delirium, worsening confusion Bed Number: H50- Ordering: Enriqueta Fowler APRN.CNP Pgr: Attending: Enriqueta Fowler APRN.CNP Pgr: IPC Staff Dr. Drummond and IP Consult have been paged. documented in this encounter [facility] 06-20-2024 Note [facility] 06-19-2024 Note [facility] 06-19-2024 Note [facility] 06-18-2024 Note [facility] 06-18-2024 Note [facility] 06-18-2024 Note [facility] 06-17-2024 Note [facility] 06-17-2024 Note [facility] 06-17-2024 Note [facility] 06-17-2024 Note [facility] 06-16-2024 Note [facility] 06-16-2024 Note [facility] 06-16-2024 Note [facility] 06-15-2024 Note [facility] 06-15-2024 Note [facility] 06-15-2024 Note [facility] 06-14-2024 Note [facility] 06-14-2024 Note [facility] 06-13-2024 Note [facility] 06-13-2024 Note [facility] 06-13-2024 Note [facility] 06-13-2024 Note [facility] 06-13-2024 Note [facility] 06-12-2024 Note [facility] 06-12-2024 Note [facility] 06-12-2024 Note [facility] 06-11-2024 Note [facility] 06-11-2024 Note [facility] 06-11-2024 Note [facility] 06-11-2024 Note [facility] 06-11-2024 Note [facility] 06-11-2024 Note [facility] 06-10-2024 Note [facility] 06-10-2024 Note [facility] 06-10-2024 Note [facility] 06-09-2024 Note [facility] 06-09-2024 Note [facility] 06-09-2024 Note [facility] 06-08-2024 Note [facility] 06-08-2024 Note [facility] 06-08-2024 Note [facility] 06-08-2024 Note [facility] 06-07-2024 Note [facility] 06-06-2024 Note [facility] 06-06-2024 Note [facility] 06-06-2024 Note [facility] 06-05-2024 Note [facility] 06-04-2024 Note [facility] 04-18-2024 Telephone encounter Note Camille is calling in from [facility] lab and need standing lab order fax over. The fax number is [phone] [facility] 04-18-2024 Miscellaneous Notes Camille is calling in from [facility] lab and need standing lab order fax over. The fax number is [phone] Sonali So documented in this encounter [facility] 04-15-2024 History of Present illness Narrative [...] discussion and plan. documented in this encounter [facility] Work Phone: 04-15-2024 Instructions Ragini Contreras LPN [...] up per routine documented in this encounter [facility] Work Phone: 04-11-2024 History of Present illness [...] limited to risks of scarring, darker or hydro plant operator pigmentary changes, recurrence, incomplete removal and infection. [...] Visit: 1 year documented in this encounter [facility] 02-17-2024 Hospital Discharge instructions Patient Education [...] urethra. Follow these instructions at home: Take egap-gnd-azsksfw and prescription medicines only as told by [...] provider. Document Revised: 12/18/2021 Document Reviewed: 12/18/2021 [employer] Patient Education 2023 [employer]. Follow Up Care 05/27/2023 10:44:24 With:Chandler CHAVEZ, TAMEKA Mendoza, URO Address: [facility] [place] [address]- [phone] When: Unknown Comments:6 mos (no labs) [facility] 02-17-2024 Note Patient Education Urology Benign Prostatic [...] Follow these instructions at home: ? Take snsm-bqh-tlentrr and prescription medicines only as told by [...] develop side effec (more content not included)... [facility] 08-13-2023 Hospital Discharge instructions Patient Education [...] urethra. Follow these instructions at home: Take mjyo-nyn-hmpuxmp and prescription medicines only as told by [...] provider. Document Revised: 12/18/2021 Document Reviewed: 12/18/2021 Else[employer] Patient Education 2022 [employer]. Follow Up Care 08/11/2023 16:25:46 With:Chandler CHAVEZ, TAMEKA Mendoza, URO Address: When: Unknown [facility] 07-28-2023 Miscellaneous Notes PA denied, pharmacy was billing incorrectly. Medicare paid for OLT and tacrolimus should be billed under part B. Pharmacy billing incorrectly. Karla Turner RN, BSN, [facility] Liver Associate Entertainment Editor Tacrolimus PA submitted via [employer] website. [employer]: [id number] Awaiting coverage determination. Karla Turner RN, BSN, [facility] Liver Associate Entertainment Editor documented in this encounter [facility] 05-27-2023 Hospital Discharge instructions Patient Education [...] urethra. Follow these instructions at home: Take djfm-znk-frkxcsm and prescription medicines only as told by [...] provider. Document Revised: 12/18/2021 Document Reviewed: 12/18/2021 [employer] Patient Education 2022 [employer]. Follow Up Care 02/25/2023 09:53:13 With:Chandler CHAVEZ, Sugey Cummins, URL, URO Address: When:Within 9 Month(s) Comments:w/PSA F&T [facility] 04-10-2023 History of Present illness Narrative [...] (CMS/HCC) 6. Pacemaker documented in this encounter [facility] Work Phone: 04-10-2023 Instructions Reina Wagner LPN [...] of your visit. documented in this encounter [facility] Work Phone: 02-25-2023 Hospital Discharge instructions Patient [...] treatment? Where to find more information [employer] [employer]: www.cancer.org [employer] [employer]: www.auanet.org Contact a health care [...] provider. Document Revised: 11/25/2021 Document Reviewed: 11/25/2021 [employer] Patient Education 2022 [employer] Follow Up Care 11/18/2022 14:45:41 With:Chandler CHAVEZ, TAMEKA Mendoza, URO Address: When:Within 3 Month(s) [facility] 02-23-2023 Miscellaneous Notes Spoke with patient [...] patent and also faxed to local lab [phone]. Pt verbalized understanding, no further questions at this time. Karla Turner RN, BSN, [facility] Liver Associate Entertainment Editor documented in this encounter [facility] 01-01-2023 Evaluation note Encounter Date Diagnosis Assessment Notes Dec, Change in bowel habits (ICD-10 - R19.4) Dec, Other dysphagia (ICD-10 - R13.19) [facility] Other 06-16-2023 Evaluation note* Encounter Date Diagnosis Assessment Notes Treatment Notes Treatment Clinical Notes Nov, Age-related osteoporosis without current pathological fracture (ICD-10 - M81.0) [facility] Other 04-26-2023 Hospital Discharge instructions Patient Education [...] including vitamins, herbs, eye drops, creams, and ubsu-dec-beshgtj medicines. Any problems you or family members [...] provider tells you to take them. Taking lwaz-rkc-ruupnrh medicines, vitamins, herbs, and supplements. Surgery safety [...] provider. Document Revised: 02/25/2022 Document Reviewed: 02/25/2022 [employer] Patient Education 2022 [employer]. Follow Up Care 09/22/2022 08:19:53 With:Chandler CHAVEZ, TAMEKA Mendoza, URO Address: [address] [place] [address] [phone] When: Unknown [facility] Hospital Discharge instructions Patient Education 09/22/2022 [...] Up Care 09/10/2022 10:23:36 With:Sugey Arteaga Address: [place] [address] [phone] Business (1) [facility] Greg [place], [address] [address] [phone] Business (1) When: Unknown Comments:Office to schedule follow up in 2-4 wks to review MRI prostate and BPH procedures [facility]03-29-2023 Hospital Discharge instructions Patient Education 09/10/2022 10:13:37 [...] including vitamins, herbs, eye drops, creams, and qibu-uof-yojwfhd medicines. This also includes: ?Medicines to assist [...] 07/04/2005 Document Revised: 05/14/2018 Document Reviewed: 03/08/2018 [employer] Patient Education 2020 [employer]. 09/10/2022 10:13:27 Benign Prostatic Hyperplasia Benign Prostatic [...] urethra. Follow these instructions at home: Take txvm-puv-trmxhqx and prescription medicines only as told by [...] 06/01/2006 Document Revised: 04/26/2019 Document Reviewed: 07/06/2017 [employer] Patient Education 2020 [employer]. Follow Up Care 02/26/2022 15:32:46 With:Chandler CHAVEZ, TAMEKA Mendoza, URO Address: When:Within 6 Month(s) Comments:w/BI [facility] 09-14-2022 Hospital Discharge instructions Patient Education [...] have oneof these risk factors: ?Being of -[place] descent. ?Having a family history of prostate [...] you: Are older than age 55. Are -[place]. Have a father, brother, or uncle who [...] 03/12/2018 Document Revised: 05/14/2018 Document Reviewed: 03/12/2018 [employer] Patient Education 2019 [employer]. Follow Up Care 01/02/2022 11:31:28 With:VINICIUS RUSSELL PA-C, URL Address: [address] [place] [address] When:6 months Comments:W/ PSA [facility] 07-12-2022 Hospital Discharge instructions Patient Education [...] including vitamins, herbs, eye drops, creams, and lauh-cdc-oowdopd medicines. This also includes: ?Medicines to assist [...] 07/04/2005 Document Revised: 05/14/2018 Document Reviewed: 03/08/2018 [employer] Patient Education 2020 [employer] Follow Up Care 06/18/2021 08:41:53 With:Long More MD, MARIELLA Argueta Address: [facility] [address] , [place] [address]- When: Unknown [facility] 05-05-2022 Miscellaneous Notes* Telephone Encounter - Karla Turner RN - 10/17/2021 8:51 AM EDT FK reviewed, no changes. [facility] of Past illness Narrative* Problem Noted Date Resolved Date SB (acute kidney injury) 02/07/20152016 Hepatocellular carcinoma 12/21/2014 017 Hepatitis C 05/03/2013 02/18/2017 Ascites 11/10/2012 02/18/2017 Portal hypertension 11/10/2012 02/18/2017 Leucocytosis 08/18/2012 02/18/2017 Overview: Elevated to 15 today PCT 0.19 (3/3) Afebrile Franco cultures NGTD Plan: Repeat PCT Hold on [...] HE grade 4, serum ammonia 228 at Evening [facility] , admitted 3/1 morning. - Per [...] of this encounter (statuses as of 09/16/2021) [facility] History of Past illness Narrative* Problem Noted Date Resolved Date SB (acute kidney injury) 02/07/20152016 Hepatocellular carcinoma 12/21/2014 017 Hepatitis C 05/03/2013 02/18/2017 Ascites 11/10/2012 02/18/2017 Portal hypertension 11/10/2012 02/18/2017 Leucocytosis 08/18/2012 02/18/2017 Overview: Elevated to 15 today PCT 0.19 (3/3) Afebrile Franco cultures NGTD Plan: Repeat PCT Hold on [...] HE grade 4, serum ammonia 228 at [facility] , admitted 3/ morning. - Per family, minor confusion since the last 6 months inspite of being on medications. - Intubated en route to [facility] for airway protection 07/17 AMS. - Diagnostic [...] of this encounter (statuses as of 10/17/2021) [facility] History of Past illness Narrative* Problem Noted Date Resolved Date SB (acute kidney injury) 02/07/20152016 Hepatocellular carcinoma 12/21/2014 017 Hepatitis C 05/03/2013 02/18/2017 Ascites 11/10/2012 02/18/2017 Portal hypertension 11/10/2012 02/18/2017 Leucocytosis 08/18/2012 02/18/2017 Overview: Elevated to 15 today PCT 0.19 (3/3) Afebrile Franco cultures NGTD Plan: Repeat PCT Hold on [...] HE grade 4, serum ammonia 228 at [facility] , admitted 08/13 morning. - Per [...] of this encounter (statuses as of 11/08/2021) [facility] History of Past illness Narrative* Problem Noted Date Resolved Date SB (acute kidney injury) 02/07/20152016 Hepatocellular carcinoma 12/21/2014 017 Hepatitis C 05/03/2013 02/18/2017 Ascites 11/10/2012 02/18/2017 Portal hypertension 11/10/2012 02/18/2017 Leucocytosis 08/18/2012 02/18/2017 Overview: Elevated to 15 today PCT 0.19 (3/3) Afebrile Franco cultures NGTD Plan: Repeat PCT Hold on [...] HE grade 4, serum ammonia 228 at [facility] , admitted 3/ morning. - Per [...] of this encounter (statuses as of 09/04/2022) [facility] History of Past illness Narrative* Problem Noted Date Diagnosed Date Resolved Date SB (acute kidney injury) 02/07/2015 Hepatocellular carcinoma 12/21/201411/2016 Hepatitis C 05/03/2013 02/18/2017 Ascites 11/10/2012 02/18/2017 Portal hypertension 11/10/2012 02/19/20 17 Leucocytosis 08/18/2012 02/18/2017 Overview: Elevated to 15 today PCT 0.19 (3/3) Afebrile Franco cultures NGTD Plan: Repeat PCT Hold on [...] HE grade 4, serum ammonia 228 at [facility] , admitted 08/13 morning. - Per family, minor confusion since the last 6 months inspite of being on medications. - Intubated en route to [facility] for airway protection 07/17 AMS. - Diagnostic [...] of this encounter (statuses as of 02/24/2023) [facility] History of Past illness Narrative* Problem Noted Date Diagnosed Date Resolved Date BS (acute kidney injury) 02/07/2015 Hepatocellular carcinoma 12/21/201411/2016 Hepatitis C 05/03/2013 02/18/2017 Ascites 11/10/2012 02/18/2017 Portal hypertension 11/10/2012 02/19/20 17 Leucocytosis 08/18/2012 02/18/2017 Overview: Elevated to 15 today PCT 0.19 (3/3) Afebrile Franco cultures NGTD Plan: Repeat PCT Hold on [...] HE grade 4, serum ammonia 228 at [facility] , admitted 3/1 morning. - Per [...] of this encounter (statuses as of 07/28/2023) [facility] History of Past illness Narrative* Problem Noted Date Diagnosed Date Resolved Date SB (acute kidney injury) 02/07/2015 Hepatocellular carcinoma 12/21/201411/2016 Hepatitis C 05/03/2013 02/18/2017 Ascites 11/10/2012 02/18/2017 Portal hypertension 11/10/2012 02/19/20 17 Leucocytosis 08/18/2012 02/18/2017 Overview: Elevated to 15 today PCT 0.19 (3/3) Afebrile Franco cultures NGTD Plan: Repeat PCT Hold on [...] HE grade 4, serum ammonia 228 at [facility] , admitted 3/ morning. - Per family, minor confusion since the last 6 months inspite of being on medications. - Intubated en route to [facility] for airway protection 07/17 AMS. - Diagnostic [...] of this encounter (statuses as of 08/17/2023) [facility] No data available for this section [facility] evaluation + Plan note Future Appointments Appointment Date:08/26/2022 08:00:00 AM Scheduled Provider:Mike Alves Jr., MD Location:[facility] Appointment Type:URO Office Visit Diagnostic Tests Pending * PSA Total 02/26/22 [facility] evaluation + Plan note Future Appointments Appointment Date:09/11/2022 08:00:00 AM Scheduled Provider: Location:[facility] Appointment Type:Urology CALL PAT FT Appointment Date:09/15/2022 09:45:00 AM Scheduled Provider: Location:[facility] Appointment Type:Urology FT Diagnostic Tests Pending * PSA Total 09/10/22 [facility] evaluation + Plan note Future Appointments Appointment Date:10/08/2022 08:00:00 AM Scheduled Provider:Chandler CHAVEZ, Sugey Cummins Location:[facility] Future Appointments Appointment Date:05/27/2023 09:45:00 AM Scheduled Provider:Sugey Arteaga MD Location:[facility] Appointment Type:URO Office Visit [facility] evaluation + Plan note Future Appointments Appointment Date:02/17/2024 09:45:00 AM Scheduled Provider:Sugey Arteaga MD Location:[facility] Appointment Type:URO Office Visit Diagnostic Tests Pending * PSA Free & Total 05/27/23 [facility] evaluation + Plan note Future Appointments Appointment Date:02/17/2024 09:45:00 AM Scheduled Provider:Sugey Arteaga MD Location:[facility] Appointment Type:URO Office Visit Future Scheduled Tests Laboratory* PSA Free & Total 12/14/23 [facility] Evaluation + Plan note Future Appointments Appointment Date:08/17/2024 08:00:00 AM Scheduled Provider:Sugey Arteaga MD Location:[facility] Appointment Type:URO Office Visit Future Scheduled Tests Laboratory* PSA Free & Total 12/14/23 [facility] evaluation note* Diagnosis Liver replaced by transplant (HCC) Liver replaced by transplant [facility] this [facility] [place] [facility]* Diagnosis Need for prophylactic immunotherapy Transplanted liver (HCC) Liver replaced by transplant [facility] [place] noteNo assessment information [facility] Work Phone: Evaluqfcuz note* Diagnosis Liver replaced by transplant (HCC) Liver replaced by transplant documented in this encounter [facility] Other Evaluation note* Diagnosis Sick sinus syndrome (CMS/HCC)- Primary Sinoatrial node dysfunction Essential hypertension Unspecified essential hypertension Mixed hyperlipidemia Overweight with body mass index (BMI) of 26 to 26.9 in adult Liver transplanted (CMS/HCC) Liver replaced by transplant Pacemaker Cardiac pacemaker in situ documented in this encounter [facility] Work Phone: Evaluation note* Diagnosis Liver replaced by transplant (HCC) Liver replaced by transplant [facility] [place] [facility]* Diagnosis Need for prophylactic immunotherapy Transplanted liver (HCC) Liver replaced by transplant [facility] this [facility] [place] [facility]* Diagnosis Melanocytic nevus of trunk Benign neoplasm of skin of trunk, except scrotum Seborrheic keratosis Actinic keratosis [facility] [place] [facility]* Diagnosis Shortness of breath- Primary Sick sinus syndrome (Multi) Sinoatrial node dysfunction Essential hypertension Unspecified essential hypertension Mixed hyperlipidemia Pacemaker Cardiac pacemaker in situ BMI 20.0-20.9, adult Liver transplanted (Multi) Liver replaced by transplant Former smoker Personal history of tobacco use, presenting hazards to health documented in this encounter [facility] Work Phone: Evaluation note* Diagnosis Shortness of breath documented in this encounter [facility] Work Phone: Evaluation note* Diagnosis Postoperative visit- Primary Other specified aftercare following surgery [facility] this [facility] [place] [facility]* Diagnosis Liver replaced by transplant (HCC) Liver replaced by transplant documented in this encounter [facility] Narrative - Reported* Type Description Date Medical History HISTORY OF HEP C Medical History LIVER TRANSPLANT Medical History prostatism Medical History liver cancer Surgical History APPENDECTOMY Surgical History HERNIA REPAIR Surgical History LIVER TRANSPLANT Surgical History VEIN STRIPPING 2005 Hospitalization History SEE [facility] Other History general Narrative - Reported* Type Description Date Medical History HISTORY OF HEP C Medical History LIVER TRANSPLANT Medical History prostatism Medical History liver cancer Medical History PACE MAKER PLACED Surgical History APPENDECTOMY Surgical History HERNIA REPAIR Surgical History LIVER TRANSPLANT Surgical History VEIN STRIPPING 2005 Surgical History PACE MAKER PLACEMENT Hospitalization History SEE [facility] Other History of Present illness Narrative* Patient [...] Modification * 5. Follow-up in 1 year [facility] [address] DO Work Phone: Hospital Discharge instructions No data available for this section [facility] Progress note No data available for this section [facility] reason for referral (narrative)* Consultation (Routine) - Authorized Specialty Diagnoses / Procedures Referred By Juan sauer Referred To Contact Cardiology Diagnoses Sick sinus syndrome (CMS/HCC) Essential hypertension Mixed hyperlipidemia Procedures Follow Up In Cardiology Shea Brannon MD [address] [place] [address] 2, [address] [address] Shea Brannon MD [address] [place] [address] 2, [address] [address] Referral ID Status Reason Start Date Expiration Date V isits Requested Visits Authorized [id number] Authorized 04/10/2023 04/09/2024 1 1 T [facility] Work Phone: Reason for visit Narrative* CV Imaging (Routine) - Authorized Specialty Diagnoses / Procedures Referred By Jaun sauer Referred To Contact Cardiology Diagnoses Shortness of breath Procedures Transthoracic Echo Complete TN ECHO TTHRC R-T 2D W/WOM-MODE COMPL SPEC&COLR D Shea Brannon MD [address] [place] [address] 2, [address] [address] Phone: tel: fax: Referral ID Status Reason Start Date Expiration Date Visits Requested Visits Authorized [id number] Authorized Perform Procedure 04/15/2024 04/15/2025 1 1 [facility] Work Phone: Summary Purpose Family History Unknown [...] Date/ Time Advance Directives Yes July 10:52pm Date Activated Date Inactivated Comments 06/10/2024 3:32 PM Question Answer Comments Full Code Order Discussed With: Patient and Surr ogate Decision Maker Surrogate Decision Maker Name: Giovanny Sherman Surrogate Decision Maker Surrogate Decision Maker Relationship: M ajority of Adult Children (customer field representative) Documents on File Type Date Recorded Patient Metal [employer]ing As[employer]er Expl anation Advance Directive(s) 06/27/2024 11:37 AM Date Activated Date Inactivated Comments 06/10/2024 3:32 PM 06/23/2024 11:11 PM Chief Complaint SUSAN SHERMAN is being seen [...] content) DATE CREATED AUTHOR 12/08/2017 [facility] DATE CREATED AUTHOR AUTHOR'S ORGANIZ ATION 04/16/2020 [facility] DATE CREATED AUTHOR AUTHOR'S ORGANIZ ATION 10/24/2022 [facility] DATE CREATED AUTHOR AUTHOR'S ORGANIZ ATION 11/23/2022 [facility] DATE CREATED AUTHOR AUTHOR'S ORGANIZ ATION 04/11/2024 [facility] DATE CREATED AUTHOR AUTHOR'S ORGANIZ ATION 04/17/[address] [facility] [place] [place] Ambulatory DATE CREATED AUTHOR AUTHOR'S ORGANIZ ATION 05/25/2024 [facility] DATE CREATED AUTHOR AUTHOR'S ORGANIZ ATION 06/08/2024 [facility] DATE CREATED AUTHOR AUTHOR'S ORGANIZ ATION 07/08/2024 Brody George [facility] DATE CREATED AUTHOR AUTHOR'S ORGANIZ ATION 07/25/2024 [facility] Source Comments (unrecognize d section and content) In the event this informatio n is protected by the Federal Confidentiality of Alcohol and Drug Abuse Patient Records regulations: The Federal rules restrict any use of the information to criminally investigate or prosecute any alcohol or drug abuse patient.[facility] the event this information is protected by the Federal Confidentiality of Alcohol and Drug Abuse Patient Records regulations: The Federal rules restrict any use of the information to criminally investigate or prosecute any alcohol or drug abuse patient.[facility] the event this information is protected by the Federal Confidentiality of Alcohol and Drug Abuse Patient Records regulations: The Federal rules restrict any use of the information to criminally investigate or prosecute any alcohol or drug abuse patient.[facility] the event this information is protected by the Federal Confidentiality of Alcohol and Drug Abuse Patient Records regulations: The Federal rules restrict any use of the information to criminally investigate or prosecute any alcohol or drug abuse patient.[facility] Hospital[facility] the event this information is protected by the Federal Confidentiality of Alcohol and Drug Abuse Patient Records regulations: The Federal rules restrict any use of the information to criminally investigate or prosecute any alcohol or drug abuse patient.[facility] the event this information is protected by the Federal Confidentiality of Alcohol and Drug Abuse Patient Records regulations: The Federal rules restrict any use of the information to criminally investigate or prosecute any alcohol or drug abuse patient.[facility] Hospital[facility] the event this information is protected by the Federal Confidentiality of Alcohol and Drug Abuse Patient Records regulations: The Federal rules restrict any use of the information to criminally investigate or prosecute any alcohol or drug abuse patient.[facility] Hospital[facility] the event this information is protected by the Federal Confidentiality of Alcohol and Drug Abuse Patient Records regulations: The Federal rules restrict any use of the information to criminally investigate or prosecute any alcohol or drug abuse patient.[facility] the event this information is protected by the Federal Confidentiality of Alcohol and Drug Abuse Patient Records regulations: The Federal rules restrict any use of the information to criminally investigate or prosecute any alcohol or drug abuse patient.[facility] the event this information is protected by the Federal Confidentiality of Alcohol and Drug Abuse Patient Records regulations: The Federal rules restrict any use of the information to criminally investigate or prosecute any alcohol or drug abuse patient.[facility] Hospital[facility] the event this information is protected by the Federal Confidentiality of Alcohol and Drug Abuse Patient Records regulations: The Federal rules restrict any use of the information to criminally investigate or prosecute any alcohol or drug abuse patient.[facility] HospitalIn the event this information is protected by the Federal Confidentiality of Alcohol and Drug Abuse Patient Records regulations: The Federal rules restrict any use of the information to criminally investigate or prosecute any alcohol or drug abuse patient.[facility] HospitalIn the event this information is protected by the Federal Confidentiality of Alcohol and Drug Abuse Patient Records regulations: The Federal rules restrict any use of the information to criminally investigate or prosecute any alcohol or drug abuse patient.[facility] HospitalIn the event this information is protected by the Federal Confidentiality of Alcohol and Drug Abuse Patient Records regulations: The Federal rules restrict any use of the information to criminally investigate or prosecute any alcohol or drug abuse patient.[facility] HospitalIn the event this information is protected by the Federal Confidentiality of Alcohol and Drug Abuse Patient Records regulations: The Federal rules restrict any use of the information to criminally investigate or prosecute any alcohol or drug abuse patient.[facility] Reason for Visit (unrecogniz ed section and content) Reason Comments Refill Request Reason Comments Opened In Error Reason Comments Patient Update Orders New standing lab ord er Reason Comments Follow-up 1y Reason Comments Insurance Authorization Tacrolimus Reason Comments Skin Check Reason Comments Annual Exam Specialty Diagnoses / Procedures Referred By Juan sauer Referred To Contact Cardiology Diagnoses Sick sinus syndrome (Multi) Essential hypertension Mixed hyperlipidemia Procedures Follow Up In Cardiology Shea Brannon MD [address] [place] [address], [address] [address] Phone: tel: fax: Shea Brannon MD [address] [place] [address] 2, [address] [address] Phone: tel: fax: Referral ID Status Reason Start Date Expiration Date V isits Requested Visits Authorized [id number] Authorized 04/10/2023 04/09/2024 1 1 Specialty Diagnoses / Procedures Referred By Juan sauer Referred To Contact HOSP INPATIENT Diagnoses Small bowel obstruction (HCC) SBO Procedures [facility] [place] [address] Referral ID Status Reason Start Date Expiration Date Visits Re quested Visits Authorized [id number] 1 1 Reason Comments Consult Best practice Reason Comments Post Op Care Teams (unrecognized sec tion and content) Team Status: Active Member Role Status Dates Elvira Schultz DO Primary Care Provider Active Team Status: Inactive Member Role Status Dates Elvira Schultz DO Primary Care Provider Active Sugey Arteaga MD Attending Provider Active Program Coordinator For Residence Life Relationship Specialty Start Date End Date Elvira Schultz DO [address] [place] [address] PCP - General Family Practice 01/06/12 Karla Turner RN [facility] [address] [place] [address] Registered Nurse Transplant Center 07/14/19 Program Coordinator For Residence Life Relationship Specialty Start Date End Date Elvira Schultz DO [address] [place] [address] PCP - General Family Practice 01/06/12 Karla Turner, [facility] [address] [place] [address] Registered Nurse Transplant Center 07/14/19 Team Status: Inactive Member Role Status Dates Elvira Schultz , Primary Care Provider Active Shea Brannon MD Attending Provider Active Program Coordinator For Residence Life Relationship Specialty Start Date End Date Elvira Schultz DO [address] [place] [address] PCP - General Family Medicine 01/06/12 Karla Turner RN [facility] [address] [place] [address] Registered Nurse Transplant Center 07/14/19 Team Status: Inactive Member Role Status Dates Elvira Schultz , Primary Care Provider Active Branden Woodward MD Attending Provider Active Team Status: Inactive Member Role Status Dates Elvira Schultz , Primary Care Provider Active Sheila Magallanes MD Attending Provider Active Program Coordinator For Residence Life Relationship Specialty Start Date End Date Elvira Schultz DO [address] [place] [address] PCP - General Family Medicine 01/06/12 Karla Turner RN [facility] [address] [place] [address] Registered Nurse Transplant Center 07/14/19 Program Coordinator For Residence Life Relationship Specialty Start Date End Date Lloyd Schultzrin ErastoDO [address] [facility] [address] PCP - General 06/15/99 Program Coordinator For Residence Life Relationship Specialty Start Date End Date Ruddymaggie Elvirafer Maurer DO [address] [place] [address] PCP - General Family Medicine 01/06/12 Karla Turner RN [facility] [address] [place] [address] Registered Nurse Transplant Center 07/14/19 Program Coordinator For Residence Life Relationship Specialty Start Date End Date Elvira Schultz DO [address] [place] [address] PCP - General Family Medicine 01/06/12 Karla Turner RN [facility] [address] [place] [address] Registered Nurse Transplant Center 07/14/19 Program Coordinator For Residence Life Relationship Specialty Start Date End Date Elvira Schultz DO [address] [place] [address] PCP - General Family Medicine 01/06/12 Karla Turner RN [facility] [address] [place] [address] Registered Nurse Transplant Center 07/14/19 Team Status: Inactive Member Role Status Dates Elvira Schultz DO Primary Care Provider Active Start: November 06, 2023 End: November 06, 2023 Branden Woodward MD Attending Provider Active Start: November 06, 2023 End: November 06, 2023 Program Coordinator For Residence Life Relationship Specialty Start Date End Date Elvira Schultz DO [address] [place] [address] PCP - General Family Medicine 01/06/12 Karla Turner RN [facility] [address] [place] [address] Registered Nurse Transplant Center 07/14/19 Team Status: Inactive Member Role Status Dates Elvira Schultz DO Primary Care Provider Active Start: February 05, 2024 End: February 05, 2024 Branden Woodward MD Attending Provider Active Start: February 05, 2024 End: February 05, 2024 Program Coordinator For Residence Life Relationship Specialty Start Date End Date Elvira Schultz DO [address] [place] [address] PCP - General 06/15/99 Program Coordinator For Residence Life Relationship Specialty Start Date End Date Elvira Schultz DO [address] [place] [address] PCP - General 06/15/99 Program Coordinator For Residence Life Relationship Specialty Start Date End Date Elvira Schultz DO [address] [facility] [place] [address] PCP - General Family Medicine 01/06/12 Karla Turner RN [facility] [address] [place] [address] Registered Nurse Transplant Center 07/14/19 Program Coordinator For Residence Life Relationship Specialty Start Date End Date Elvira Schultz DO [address] [facility] [place] [address] PCP - General Family Medicine 01/06/12 Karla Turner RN [facility] [address] [place] [address] Registered Nurse Transplant Center 07/14/19 Program Coordinator For Residence Life Relationship Specialty Start Date End Date Elvira Schultz DO [address] [facility] [place] [address] PCP - General Family Medicine 01/06/12 Karla Turner RN [facility] [address] [place] [address] Registered Nurse Transplant Center 07/14/19 Program Coordinator For Residence Life Relationship Specialty Start Date End Date Elvira Schultz DO [address] [facility] [place] [address] PCP - General Family Medicine 01/06/12 Karla Turner RN [facility] [address] [place] [address] Registered Nurse Transplant Center 07/14/19 Goals (unrecognized section and content) Goals [...] BE BASED ON THE PRIMARY CLINICAL RECORDS. [employer] provides no warranty or guarantee of the accuracy or completeness of information in this document.
[2024-08-04] MEDS: LEVOFLOXACIN IN DEXTROSE 5 % 750 MG/150 ML PREMIX 100 MG IV (17:46)
[2024-08-04] MEDS: LACTATED RINGER'S SOLUTION 1,000 ML 125 ML IV (17:47)
[2024-08-04] MEDS: ENOXAPARIN SODIUM 30 MG/0.3 ML SYRINGE SUBQ (17:52)
[2024-08-04 21:14] LABS: Glucometer 145 mg/dL (74-106)
[2024-08-04] MEDS: METOPROLOL TARTRATE 25 MG TABLET PO (21:40)
[2024-08-05] VITALS (17 sets, daily range): BP systolic 113–133; BP diastolic 75–83; PULSE 63–114; TEMP 36.6–36.7; O2SAT 90–96
[2024-08-05] MEDS: TRAZODONE HCL 50 MG TABLET 25 MG PO (01:23)
[2024-08-05] MEDS: LACTATED RINGER'S SOLUTION 1,000 ML 125 ML IV (03:41)
[2024-08-05 06:29] LABS: Basophils Absolute Auto 0.1 10^3/uL (0.0-0.1); Basophils Percent Auto 0.5 % (0.2-2.0); Eosinophils Absolute Auto 0.1 10^3/uL (0.0-0.7); Eosinophils Percent Auto 0.6 % (0.9-7.0); Hematocrit 37.3 % (42.0-54.0); Hemoglobin 12.2 g/dL (14.0-18.0); Immature Granulocytes Abs Auto 0.05 10^3/uL (0.00-0.03); Immature Granulocytes Pct Auto 0.4 % (0.0-0.5); Lymphocytes Absolute Auto 0.5 10^3/uL (1.2-3.8); Mean Corpuscular HGB Conc 32.7 g/dL (29.9-35.2); Mean Corpuscular Hemoglobin 31.1 pg (25.9-34.0); Mean Corpuscular Volume 95.2 fL (80.0-94.0); Mean Platelet Volume 9.4 fL (9.5-13.5); Monocytes Absolute Auto 0.6 10^3/uL (0.3-0.8); Monocytes Percent Auto 4.9 % (1.7-12.0); Neutrophils Absolute Auto 11.1 10^3/uL (1.4-6.5); Neutrophils Percent Auto 89.6 % (43.0-75.0); Platelet Count 217 10^3/uL (150-450); Red Blood Count 3.92 10^6/uL (4.70-6.10); Red Cell Distribution Width 15.9 % (11.0-15.0); White Blood Count 12.4 10^3/uL (4.0-11.0)
[2024-08-05 06:44] LABS: Alanine Aminotransferase 16 U/L (16-63); Albumin Globulin Ratio 1.2; Albumin Level 3.1 g/dL (3.4-5.0); Alkaline Phosphatase 71 U/L (46-116); Anion Gap 8.8; Aspartate Amino Transferase 11 U/L (15-37); BUN Creatinine Ratio 30.7; Bilirubin Total 0.5 mg/dL (0.2-1.0); Calcium 8.7 mg/dL (8.5-10.1); Carbon Dioxide 31.1 mmol/L (21.0-32.0); Chloride 106 mmol/L (98-107); Estimated GFR (African America >60 (>=60 mL/min/1.73m^2); Estimated GFR (Non-African Ame >60 (>=60 mL/min/1.73m^2); Globulin 2.6 g/dL; Glucose 128 mg/dL (74-106); Potassium 3.9 mmol/L (3.5-5.1); Sodium 142 mmol/L (136-145); Total Protein 5.7 g/dL (6.4-8.2)
[2024-08-05] MEDS: METOPROLOL TARTRATE 25 MG TABLET PO ×2 (09:03→21:28)
[2024-08-05] MEDS: ASPIRIN 81 MG TAB.CHEW PO (09:03)
[2024-08-05] MEDS: FINASTERIDE 5 MG TABLET PO (09:03)
--- NOTE | 2024-08-05 09:44 | SWNOTE1 ---
SW did see in ED documentation that pt was at the [facility] in past and has been home for a few weeks. Pt's son has concerns about caring for him at home. SW to speak with pt and son. SW did check with [facility] and they did have him there. Radha at [facility] would have to check on bed availability if pt does need SNF.
--- NOTE | 2024-08-05 10:59 | CM.NOTE ---
Rounds made with Dr. Ruggiero, pt up in chair this AM. Pt alert and oriented and responds appropriately to questions. PT and OT will evaluate pt today for discharge planning.
--- NOTE | 2024-08-05 11:09 | P.HP_ITS ---
HPI H&P: HPI History of Present Illness Chief complaint: UTI CONFUSION Narrative: HPI and Hospital course: 74-year-old male was brought over to ED by his son for evaluation of confusion, generalized weakness. Patient recently was admitted to [facility] where he underwent ex lap for small bowel obstruction secondary to adhesions after which he was discharged to [facility] for rehab. Patient has been living with his son for about 2 weeks but after a few days, he started to get increasingly confused, overall weak with hallucination. While in ER, patient was noted to be restless, confused and overall weak. His workup was consistent with sepsis secondary to urinary tract infection resulting in metabolic encephalopathy. Patient was admitted as inpatient for treatment of sepsis, UTI and metabolic encephalopathy. Patient was seen earlier today. While he is feeling overall weak, he seems to be back to his baseline mentation and does not appear confused. He denies any hallucinations. Other than generalized weakness, he has no active complaints to offer today. Opioid HPI Opioid Management Most Recent Pain and Opioid Data: Last Pain Scale 8 06/03/24 07:52 06/03/24 Last Pain Assessment 08/05/24 11:55 Last ORT Total Score 7 08/04/24 16:55 08/04/24 Last ORT Risk Category Moderate Risk 08/04/24 16:55 08/04/24 Review of Systems ROS Status of ROS 10 or more systems reviewed and unremark able except as noted in history and below PFSH [facility] Medical History (Updated 08/05/24 @ 12:17 by Shaikh Bahman MD) Immunosuppressed status ?D84.9 - Immunodeficiency, unspecified (ICD-10) Hypothyroid ?E03.9 - Hypothyroidism, unspecified (ICD-10) History of small bowel obstruction ?Z87.19 - Personal history of other diseases of the digestive system (ICD-10) Abdominal adhesions ?K66.0 - Peritoneal adhesions (postprocedural) (postinfection) (ICD-10) History of cirrhosis of liver ?Z87.19 - Personal history of other diseases of the digestive system (ICD-10) History of liver cancer ?Z85.05 - Personal history of malignant neoplasm of liver (ICD-10) A-fib ?I48.91 - Unspecified atrial fibrillation (ICD-10) Pacemaker ?Z95.0 - Presence of cardiac pacemaker (ICD-10) Surgical History (Updated 08/05/24 @ 12:17 by Shaikh Bahman MD) Liver transplant recipient ?Z94.4 - Liver transplant status (ICD-10) History of liver transplant ?Z94.4 - Liver transplant status (ICD-10) History of hernia repair ?Z98.890 - Other specified postprocedural states (ICD-10) ?Z87.19 - Personal history of other diseases of the digestive system (ICD-10) Hx of appendectomy ?Z90.49 - Acquired absence of other specified parts of digestive tract (ICD- 10) Family History (Updated 08/04/24 @ 16:50 by Yocasta Peterson RN) Mother Family history of diabetes mellitus Family history of hypertension Social History (Updated 08/04/24 @ 16:50 by Yocasta Peterson RN) Within the past year, how often did you have a drink containing alcohol: never Score interpretation: A score less than 4 is consistent with normal alcohol consumption. Smoking status: Former smoker Non-prescribed substance use: former substance user Highest level of school completed/degree received: some college, no degree Little interest or pleasure in doing things: not at all Feeling down, depressed, or hopeless: not at all Meds Home Medications and Allergies Home Medications ?Medication ?Instructions ?Recorded ?Confirmed ?Type finasteride 5 mg tablet 5 mg PO DAILY 04/22/24 08/04/24 History metoprolol tartrate 25 mg tablet 25 mg PO Q12H 04/22/24 08/04/24 History apixaban 5 mg tablet (Eliquis) 5 mg PO Q12H 08/04/24 08/04/24 History dicyclomine 20 mg tablet 20 mg PO TID 08/04/24 08/04/24 History levothyroxine 25 mcg tablet 25 mcg PO DAILY 08/04/24 08/04/24 History tamsulosin 0.4 mg capsule 0.8 mg PO Q24H 08/04/24 08/04/24 History tacrolimus 0.5 mg capsule, 1.5 mg PO BID 08/05/24 08/05/24 History immediate-release Allergies Allergy/AdvReac Type Severity Reaction Status Date / Time No Known Drug Allergies Allergy Verified 06/03/24 00:08 Exam Constitutional Vital Signs, click to edit/add: Last Vital Signs Temp 97.9 F 08/05/24 09:20 Pulse 90 08/05/24 09:50 Resp 16 08/05/24 09:20 BP 133/83 08/05/24 09:20 Pulse Ox 94 L 08/05/24 09:20 O2 Del Method Room Air 08/05/24 09:20 Documenting provider has reviewed patient's vital signs: yes Common normals: no apparent distress and oriented x3 General appearance: cooperative HENMT Common normals: normocephalic and head/scalp atraumatic Head and scalp: normocephalic and atraumatic Eye Common normals: conjunctivae normal and no scleral icterus Conjunctiva: conjunctiva(e) normal Respiratory Common normals: normal respiratory effort and clear to auscultation bilaterally Effort & inspection: able to speak in complete sentences Auscultation: clear to auscultation bilaterally Cardio Common normals: regular rate, S1 normal heart sound and S2 normal heart sound Rate: regular rate Heart sounds: S1 normal and S2 normal GI Common normals: Normal to inspection, nondistended, normoactive bowel sounds present, soft to palpation, non-tender and no hepatosplenomegaly Palpation: soft and no hepatosplenomegaly Extremity Common normals: no clubbing, cyanosis or edema Neuro Common normals: oriented x3, moves all extremities and no focal motor deficits Psych Common normals: mental status grossly normal, denies hallucinations, denies homicidal ideation and denies suicidal ideation Results Labs Labs: Short CBC 08/04/24 08/05/24 Range/Units 13:34 06:13 WBC 15.2 H 12.4 H (4.0-11.0) 10^3/uL Hgb 13.4 L 12.2 L (14.0-18.0) g/dL Hct 42.0 37.3 L (42.0-54.0) % Plt Count 268 217 (150-450) 10^3/uL BMP 08/04/24 08/05/24 13:34 06:13 Sodium 144 142 Potassium 4.4 3.9 Chloride 105 106 Carbon Dioxide 31.4 31.1 BUN 34.0 H 23.0 H Creatinine 1.00 0.75 Glucose 97 128 H Calcium 9.8 8.7 Liver Function 08/04/24 08/05/24 Range/Units 13:34 06:13 Total Bilirubin 0.6 0.5 (0.2-1.0) mg/dL AST 17 11 L (15-37) U/L ALT 18 16 (16-63) U/L Alkaline Phosphatase 88 71 (46-116) U/L Albumin 3.8 3.1 L (3.4-5.0) g/dL Urine 08/04/24 Range/Units 14:44 Urine Color Lt. yellow (YELLOW) Urine Clarity Clear (CLEAR) Urine pH 6.0 (5.0-9.0) Ur Specific [place] 1.020 (1.005-1.025) Urine Protein Trace (NEG/TRACE) mg/dL Urine Glucose (UA) Negative (NEGATIVE) mg/dL Assessment and Plan Assessment and Plan (1) Sepsis: Assessment and Plan: SIRS criteria (WBC> 13K, hr> 90, RR> 20) qSofa (Altered mentation, RR> 20) Source of infection likely UTI. Patient has improved from hemodynamic point of view. Discontinue IV fluids. Follow-up urine and blood cultures Qualifiers: Sepsis type: sepsis due to unspecified organism Sepsis acute organ dysfunction status: with acute organ dysfunction Severe sepsis acute organ dysfunction type: encephalopathy Severe sepsis shock status: without septic shock Qualified Code(s): A41.9 - Sepsis, unspecified organism; R65.20 - Severe sepsis without septic shock; G93.41 - Metabolic encephalopathy (2) Urinary tract infection: Assessment and Plan: Likely secondary to recent indwelling urinary catheter. On IV Rocephin. Follow-up urine cultures. Qualifiers: Urinary tract infection type: catheter-associated UTI Indwelling urinary catheter type: indwelling urethral catheter Encounter type: subsequent encounter Qualified Code(s): T83.511D - Infection and inflammatory reaction due to indwelling urethral catheter, subsequent encounter; N39.0 - Urinary tract infection, site not specified (3) Metabolic encephalopathy: Assessment and Plan: No acute finding on CT head. Patient was confused with hallucination likely secondary to urinary tract infection and sepsis. Back to his baseline mentation. (4) A-fib: Assessment and Plan: Rate controlled. On Eliquis for anticoagulation Qualifiers: Atrial fibrillation type: paroxysmal Qualified Code(s): I48.0 - Paroxysmal atrial fibrillation (5) Hypothyroid: Assessment and Plan: Continue with levothyroxine Qualifiers: Hypothyroidism type: unspecified Qualified Code(s): E03.9 - Hypothyroidism, unspecified (6) Liver transplant recipient: Assessment and Plan: Patient had liver transplant for hepatocellular carcinoma in 2016. On tacrolimus. (7) Immunosuppressed status: Assessment and Plan: patient has immunosuppressive status due to current use of tacrolimus. Plan Patient has clinically improved with IV hydration and IV Rocephin overnight for UTI and sepsis. However he is still feels overall weak. PT/OT evaluation. Will likely need SNF placement for rehab to improve his physical deconditioning/ambulation. Patient needs continued inpatient monitoring for sepsis/UTI as he is at high risk of poor outcome/poor prognosis secondary to his immunocompromise status.
--- NOTE | 2024-08-05 11:45 | CM.NOTE ---
Important Message From Medicare discussed with pt, pt verbalizes understanding and signs paper. Original given to pt and copy placed on pt's chart.
--- NOTE | 2024-08-05 12:28 | SWNOTE1 ---
SW spoke with case management and pt and family would like pt to return to rehab at the [facility]. SW reached out to [facility] and they voiced to send it over. SW heard back from Radha at the [facility] and they are not able to accept as pt does not have a secondary insurance and they are concerned he will not be able to return home and no termite control service representative plan.
[2024-08-05] MEDS: DICYCLOMINE HCL 10 MG CAPSULE 20 MG PO ×2 (13:41→21:28)
[2024-08-05] MEDS: APIXABAN 5 MG TABLET PO ×2 (13:41→21:28)
--- NOTE | 2024-08-05 14:45 | SWNOTE1 ---
SW stopped in to speak with pt in regards to SNF and [facility] not having a bed for him. Pt intitially asked SW if she could find his clothes and that his family would be picking him up this evening. SW did speak with him about rehab, but then stated SW has to speak with doctor. SW spoke to Dr. Ruggiero and the plan is still for rehab if pt does need it. SW went back in and spoke with pt about rehab. Pt did continue to ask about going home this evening and spoke about his sons. SW asked permission to call his son Johnson. Pt is alright with this. SW called Johnson and spoke to him about [facility] not having a bed. SW asked what the goal was for pt? He did voice that pt will eventually need usp placement. He stated his brother and attempted to care for him at home, but determined it was too much due to pt's confusion as well. He stated they have spoke about Medicaid and spoke with a bindery library technical assistant. SW asked what other facilities they would like besides the [facility]? He stated [facility]. SW advised that SW will have to reach out and see if they have a bed. He voiced understanding. SW spoke with pt again and voiced it is recommended pt return to rehab for his safety. SW advised that his sons feel that he will benefit from rehab. He asked if he will live there? SW stated at this time it is undetermined and will depend how strong he gets. Pt then asked if his son will bring his phone and other items. SW to call son. Pt then asked if he is staying in room 232? MEHUL stated yes. As SW was leaving, pt did get up out of chair and alarm went off. SW and cyber workforce developer and manager re-directed pt back to chair. Nurse was on phone with son and advised to bring his cell phone in. Referral sent to [facility]. Referral included face sheet, ED note, H&P, provider notes, case management report, wound consult, nursing notes, diagnostic imaging, med list, and PT/OT notes.
--- NOTE | 2024-08-05 15:01 | DIETREC ---
Pt w/increased nutrient requirements r/t weight loss and inadequate PO intakes. Recommend 237 mL Ensure Original BID to supplement meal intakes. [place] Text to Dr. Ruggiero.
--- NOTE | 2024-08-05 16:05 | SWNOTE1 ---
[facility] only has semi-private room available. MEHUL called Johnson, pt's son, to speak with him about semi-privaet room. He voiced he spoke to his other siblings and they wanted SW to look at [facility]. MEHUL did explain that [facility] is under trilogy, same as [facility], and there is a good chance they will want to know local intermodal truck driver plan and do not have local intermodal truck driver Medicaid beds available. Johnson also stated his sister has voiced there is a chance she will take him home after rehab, but not sure. MEHUL advised Johnson that SW will reach out to [facility], but not guarantee that someone will be in. Johnson did express that he was not trying to be difficult and if it was just his decision he would say yes to [facility]. MEHUL voiced understanding. MEHUL made call to [facility], no answer. SW to send referral to [facility] email. MEHUL called Juany to let her know that SW will have to follow up with her on Thursday. Referral sent to [facility] as well.
--- NOTE | 2024-08-05 16:20 | SWNOTE1 ---
After speaking with Johnson again he decided to move forward with [facility]. MEHUL called JERED at [facility] and she will submit precert. HENS is completed and packet to floor.
[2024-08-05] MEDS: LEVOFLOXACIN IN DEXTROSE 5 % 750 MG/150 ML PREMIX 100 MG IV (18:23)
[2024-08-05] MEDS: TAMSULOSIN HCL 0.4 MG CAPSULE 0.8 MG PO (21:28)
[2024-08-06] VITALS (20 sets, daily range): BP systolic 148–167; BP diastolic 84–96; PULSE 74–114; TEMP 36.4–36.6; O2SAT 83–92
[2024-08-06] MEDS: LEVOTHYROXINE SODIUM 25 MCG TABLET PO (05:45)
[2024-08-06] MEDS: DICYCLOMINE HCL 10 MG CAPSULE 20 MG PO ×2 (05:45)
[2024-08-06 05:56] LABS: Hematocrit 36.9 % (42.0-54.0); Hemoglobin 12.1 g/dL (14.0-18.0); Mean Corpuscular HGB Conc 32.8 g/dL (29.9-35.2); Mean Corpuscular Hemoglobin 30.9 pg (25.9-34.0); Mean Corpuscular Volume 94.4 fL (80.0-94.0); Mean Platelet Volume 9.5 fL (9.5-13.5); Platelet Count 206 10^3/uL (150-450); Red Blood Count 3.91 10^6/uL (4.70-6.10); Red Cell Distribution Width 15.6 % (11.0-15.0); White Blood Count 6.9 10^3/uL (4.0-11.0)
[2024-08-06 06:13] LABS: Alanine Aminotransferase 12 U/L (16-63); Albumin Globulin Ratio 1.3; Albumin Level 3.3 g/dL (3.4-5.0); Alkaline Phosphatase 72 U/L (46-116); Anion Gap 11.7; Aspartate Amino Transferase 14 U/L (15-37); BUN Creatinine Ratio 25.3; Bilirubin Total 0.5 mg/dL (0.2-1.0); Calcium 9.2 mg/dL (8.5-10.1); Carbon Dioxide 28.2 mmol/L (21.0-32.0); Chloride 104 mmol/L (98-107); Estimated GFR (African America >60 (>=60 mL/min/1.73m^2); Estimated GFR (Non-African Ame >60 (>=60 mL/min/1.73m^2); Globulin 2.6 g/dL; Glucose 85 mg/dL (74-106); Potassium 3.9 mmol/L (3.5-5.1); Sodium 140 mmol/L (136-145); Total Protein 5.9 g/dL (6.4-8.2)
[2024-08-06 06:27] LABS: Basophils Abs Manual 0.06 10^3/uL (0.00-0.10); Lymphocytes Absolute Manual 0.89 10^3/uL (1.20-3.80); Monocytes Absolute Manual 0.48 10^3/uL (0.30-0.80); Segmented Neut Absolute Manual 5.24 10^3/uL (1.4-6.5)
[2024-08-06] MEDS: ASPIRIN 81 MG TAB.CHEW PO (09:07)
[2024-08-06] MEDS: FINASTERIDE 5 MG TABLET PO (09:07)
[2024-08-06] MEDS: APIXABAN 5 MG TABLET PO ×2 (09:07→20:43)
[2024-08-06] MEDS: METOPROLOL TARTRATE 25 MG TABLET PO (09:07)
--- NOTE | 2024-08-06 10:24 | PM.IMPN1 ---
Progress Note: A&P Assessment and Plan (1) Sepsis: Assessment and Plan: Urine culture is growing E. coli. Continue with IV Levaquin. Follow-up final sensitivities. Hemodynamically stable. No need for IV fluids. Qualifiers: Sepsis type: Escherichia coli Sepsis acute organ dysfunction status: with acute organ dysfunction Severe sepsis acute organ dysfunction type: encephalopathy Severe sepsis shock status: without septic shock Qualified Code(s): A41.51 - Sepsis due to Escherichia coli [E. coli]; R65.20 - Severe sepsis without septic shock; G93.41 - Metabolic encephalopathy (2) Urinary tract infection: Assessment and Plan: Secondary to E. coli. Follow-up final sensitivity. Continue with IV Levaquin Qualifiers: Encounter type: subsequent encounter Indwelling urinary catheter type: indwelling urethral catheter Urinary tract infection type: catheter-associated UTI Qualified Code(s): T83.511D - Infection and inflammatory reaction due to indwelling urethral catheter, subsequent encounter; N39.0 - Urinary tract infection, site not specified (3) Metabolic encephalopathy: Assessment and Plan: Patient's mentation is improved but he is still intermittently confused and restless. I suspect this is likely his baseline and he is exhibiting signs and symptoms of delirium/sundowning. Will add oral Xanax as needed for anxiety/agitation. (4) A-fib: Assessment and Plan: Continue with Eliquis and metoprolol tartrate. Qualifiers: Atrial fibrillation type: paroxysmal Qualified Code(s): I48.0 - Paroxysmal atrial fibrillation (5) Hypothyroid: Assessment and Plan: Continue with levothyroxine Qualifiers: Hypothyroidism type: unspecified Qualified Code(s): E03.9 - Hypothyroidism, unspecified (6) Liver transplant recipient: Assessment and Plan: On tacrolimus. Had liver transplant in 2016 (7) Immunosuppressed status: Assessment and Plan: Patient has immunosuppressed status because of current use of immunosuppressant. Internal Medicine - PN: Subj Subjective Interval history: Seen and examined. Patient intermittently confused and restless. Did not sleep all night. No overnight events otherwise and denies any active complaints. Exam Constitutional Vital Signs, click to edit/add: Last Vital Signs Temp 98 F 08/06/24 09:12 Pulse 112 H 08/06/24 09:50 Resp 18 08/06/24 09:12 BP 159/96 H 08/06/24 09:12 Pulse Ox 91 L 08/06/24 09:12 O2 Del Method Room Air 08/06/24 09:12 Documenting provider has reviewed patient's vital signs: yes Common normals: no apparent distress and oriented x3 General appearance: cooperative Respiratory Common normals: normal respiratory effort and clear to auscultation bilaterally Effort & inspection: able to speak in complete sentences Auscultation: clear to auscultation bilaterally Cardio Common normals: regular rate, S1 normal heart sound and S2 normal heart sound Rate: regular rate Heart sounds: S1 normal and S2 normal GI Common normals: Normal to inspection, nondistended, normoactive bowel sounds present, soft to palpation, non-tender and no hepatosplenomegaly Palpation: soft and no hepatosplenomegaly Extremity Common normals: no clubbing, cyanosis or edema Neuro Common normals: moves all extremities and no focal motor deficits Sensorium/orientation: orientation impaired (Not oriented to time) and fluctuating sensorium Speech: speech normal Psych Common normals: denies hallucinations, denies homicidal ideation and denies suicidal ideation Internal Medicine - PN: Obj Da Labs Labs: Laboratory Results - last 24 hr 08/06/24 05:48 WBC 6.9 RBC 3.91 L Hgb 12.1 L Hct 36.9 L MCV 94.4 H MCH 30.9 MCHC 32.8 RDW 15.6 H Plt Count 206 MPV 9.5 Seg Neuts % (Manual) 76.0 H Lymphocytes % (Manual) 13.0 L Monocytes % (Manual) 7.0 Eosinophils % (Manual) 3.0 Basophils % (Manual) 1.0 Neutrophils # (Manual) 5.24 Lymphocytes # (Manual) 0.89 L Monocytes # (Manual) 0.48 Eosinophils # (Manual) 0.20 Basophils # (Manual) 0.06 Sodium 140 Potassium 3.9 Chloride 104 Carbon Dioxide 28.2 Anion Gap 11.7 BUN 20.0 H Creatinine 0.79 Est GFR ( Amer) >60 Est GFR (Non-Af Amer) >60 BUN/Creatinine Ratio 25.3 Glucose 85 Calcium 9.2 Total Bilirubin 0.5 AST 14 L ALT 12 L Alkaline Phosphatase 72 Total Protein 5.9 L Albumin 3.3 L Globulin 2.6 Albumin/Globulin Ratio 1.3
[2024-08-06] MEDS: ALPRAZOLAM 0.5 MG TABLET PO ×2 (10:51→17:44)
--- NOTE | 2024-08-06 11:14 | REH.PTDLY ---
Physical Therapy Daily Note PT Daily Note/Assess Start: 08/05/24 08:58 Freq: Status: Active Protocol: Document 08/06/24 09:55 AMARIS (Rec: 08/06/24 11:14 AMARIS [id number]) Physical Therapy Daily Note/Assessment Time In 09:46 Time Out 09:56 Subjective Student nurse in room upon arrival, just finished feeding pt breakfast. Nursing reports pt was oriented this morning, besides place. Pt did not sleep last night and is anxious per nursing report as well. Therapeutic Activity 9 Minutes (minutes) Therapeutic Activity 1 Units Therapeutic Activity Instructed in supine to sit transfers Min A with UE to Comments sit upright. Pt impulsive wanting to stand right away with cues for pt to wait until RW is in front of him. Pt stands CGA with instability noted. Gait training with RW 75 feet CGA as pt is very unsteady with gait and ambulates with narrow ANNETTE increasing fall risk. Pt talks very quietly during rx. Cues when returning to sit to reach for bed with UEs. Pt keeps looking behind him and talking, when asked he states he is talking to his daughter Evelia. No one else is currently in room. Pt then will not return to supine as he states this is not his bed and he does not want to lay on his daughter. Max cues to get pt to return to supine with bed alarm on for safety. Total Therapy 9 Minutes Total Physical 1 Therapy Units Daily Note Summary Pt struggles to follow commands today due to hallucinations. Unsteady with gait needing CGA for safety to prevent falls. Nursing notified of pt's mental state during therapy. Bed alarm on for safety post rx. Pt will need SNF stay at [facility] to improve strength and stability as pt is currently a fall risk.
[2024-08-06] MEDS: LEVOFLOXACIN IN DEXTROSE 5 % 750 MG/150 ML PREMIX 100 MG IV (17:44)
[2024-08-06] MEDS: 0.9 % SODIUM CHLORIDE 250 ML 10 ML IV (17:44)
--- NOTE | 2024-08-06 19:28 | PC.NURSE ---
rn noticed throughout the day that patient had been coughing after drinking thin liquids. RN thought at first it was just a random choking but it became a pattern. Night hospitalist was notified of findings. Patient did swallow a pill in pudding without any issues. Will make sure it is passed along to Dr. Ruggiero tomorrow as well. Patient has been resting comfortably most of the day. Patient did not sleep well last night so ad writer was trying to let him rest. Patient only had pills in am and some oatmeal. He refused lunch, pt accepted offer of water this evening and coughed immediately after. Angle Shear Set Up Operator gave PRN med whole in pudding and patient tolerated that well.
[2024-08-06] MEDS: ACETAMINOPHEN 325 MG TABLET 650 MG PO (20:44)
[2024-08-06] MEDS: METOPROLOL TARTRATE 25 MG TABLET 50 MG PO (20:44)
[2024-08-07] VITALS (10 sets, daily range): BP systolic 140–160; BP diastolic 64–83; PULSE 61–97; TEMP 36.3–36.9; O2SAT 90–95
[2024-08-07] MEDS: TAMSULOSIN HCL 0.4 MG CAPSULE 0.8 MG PO (01:16)
[2024-08-07] MEDS: ALPRAZOLAM 0.5 MG TABLET PO (01:16)
[2024-08-07] MEDS: DICYCLOMINE HCL 10 MG CAPSULE 20 MG PO (05:57)
[2024-08-07] MEDS: LEVOTHYROXINE SODIUM 25 MCG TABLET PO (05:57)
[2024-08-07 06:19] LABS: Basophils Absolute Auto 0.1 10^3/uL (0.0-0.1); Basophils Percent Auto 0.9 % (0.2-2.0); Eosinophils Absolute Auto 0.1 10^3/uL (0.0-0.7); Eosinophils Percent Auto 1.4 % (0.9-7.0); Hematocrit 42.6 % (42.0-54.0); Hemoglobin 13.8 g/dL (14.0-18.0); Immature Granulocytes Abs Auto 0.03 10^3/uL (0.00-0.03); Immature Granulocytes Pct Auto 0.4 % (0.0-0.5); Lymphocytes Absolute Auto 0.4 10^3/uL (1.2-3.8); Lymphocytes Percent Auto 5.8 % (20.5-60.0); Mean Corpuscular HGB Conc 32.4 g/dL (29.9-35.2); Mean Corpuscular Hemoglobin 31.1 pg (25.9-34.0); Mean Corpuscular Volume 95.9 fL (80.0-94.0); Mean Platelet Volume 9.4 fL (9.5-13.5); Monocytes Absolute Auto 0.3 10^3/uL (0.3-0.8); Monocytes Percent Auto 4.6 % (1.7-12.0); Neutrophils Absolute Auto 6.4 10^3/uL (1.4-6.5); Neutrophils Percent Auto 86.9 % (43.0-75.0); Platelet Count 198 10^3/uL (150-450); Red Blood Count 4.44 10^6/uL (4.70-6.10); Red Cell Distribution Width 15.3 % (11.0-15.0); White Blood Count 7.4 10^3/uL (4.0-11.0)
[2024-08-07 06:44] LABS: Alanine Aminotransferase 9 U/L (16-63); Albumin Globulin Ratio 1.1; Albumin Level 3.3 g/dL (3.4-5.0); Alkaline Phosphatase 77 U/L (46-116); Anion Gap 7.5; Aspartate Amino Transferase 20 U/L (15-37); Bilirubin Total 0.2 mg/dL (0.2-1.0); Carbon Dioxide 33.7 mmol/L (21.0-32.0); Chloride 102 mmol/L (98-107); Estimated GFR (African America >60 (>=60 mL/min/1.73m^2); Estimated GFR (Non-African Ame >60 (>=60 mL/min/1.73m^2); Globulin 2.9 g/dL; Glucose 153 mg/dL (74-106); Potassium 4.2 mmol/L (3.5-5.1); Sodium 139 mmol/L (136-145); Total Protein 6.2 g/dL (6.4-8.2)
--- NOTE | 2024-08-07 11:16 | PM.IMPN1 ---
Progress Note: A&P Assessment and Plan (1) Sepsis: Assessment and Plan: Urine culture is growing E. coli. These are still pending. Continue with IV Levaquin. Qualifiers: Sepsis type: Escherichia coli Sepsis acute organ dysfunction status: with acute organ dysfunction Severe sepsis acute organ dysfunction type: encephalopathy Severe sepsis shock status: without septic shock Qualified Code(s): A41.51 - Sepsis due to Escherichia coli [E. coli]; R65.20 - Severe sepsis without septic shock; G93.41 - Metabolic encephalopathy (2) Urinary tract infection: Assessment and Plan: Secondary to E. coli. Continue with IV Levaquin Qualifiers: Encounter type: subsequent encounter Indwelling urinary catheter type: indwelling urethral catheter Urinary tract infection type: catheter-associated UTI Qualified Code(s): T83.511D - Infection and inflammatory reaction due to indwelling urethral catheter, subsequent encounter; N39.0 - Urinary tract infection, site not specified (3) Metabolic encephalopathy: Assessment and Plan: Patient's mentation is overall improved from admission but he gets intermittently confused and restless. I will discontinue Xanax. Monitor and reorient if needed (4) A-fib: Assessment and Plan: Continue with Eliquis and metoprolol tartrate. Qualifiers: Atrial fibrillation type: paroxysmal Qualified Code(s): I48.0 - Paroxysmal atrial fibrillation (5) Hypothyroid: Assessment and Plan: Continue with levothyroxine Qualifiers: Hypothyroidism type: unspecified Qualified Code(s): E03.9 - Hypothyroidism, unspecified (6) Liver transplant recipient: Assessment and Plan: On tacrolimus. Had liver transplant in 2016 (7) Immunosuppressed status: Assessment and Plan: Patient has immunosuppressed status because of current use of immunosuppressant. Internal Medicine - PN: Subj Subjective Interval history: Seen and examined. In deep sleep in the morning likely due to Xanax. Patient when awake is usually restless and would try to pull tele leads or his IV Exam Constitutional Vital Signs, click to edit/add: Last Vital Signs Temp 98.4 F 08/07/24 11:10 Pulse 82 08/07/24 11:10 Resp 18 08/07/24 11:10 BP 150/64 H 08/07/24 11:10 Pulse Ox 93 L 08/07/24 11:10 O2 Del Method Nasal Cannula 02/23/25 11:10 O2 Flow Rate 3 08/07/24 11:10 Documenting provider has reviewed patient's vital signs: yes Common normals: no apparent distress General appearance: cooperative Respiratory Common normals: normal respiratory effort and clear to auscultation bilaterally Effort & inspection: able to speak in complete sentences Auscultation: clear to auscultation bilaterally Cardio Common normals: regular rate, S1 normal heart sound and S2 normal heart sound Rate: regular rate Heart sounds: S1 normal and S2 normal Extremity Common normals: no clubbing, cyanosis or edema Neuro Common normals: moves all extremities and no focal motor deficits Sensorium/orientation: orientation impaired (Not oriented to time) and fluctuating sensorium Speech: speech normal Psych Common normals: denies hallucinations, denies homicidal ideation and denies suicidal ideation Internal Medicine - PN: Obj Da Labs Labs: Laboratory Results - last 24 hr 08/07/24 06:09 WBC 7.4 RBC 4.44 L Hgb 13.8 L Hct 42.6 MCV 95.9 H MCH 31.1 MCHC 32.4 RDW 15.3 H Plt Count 198 MPV 9.4 L Neut % (Auto) 86.9 H Lymph % (Auto) 5.8 L [place] % (Auto) 4.6 Eos % (Auto) 1.4 Baso % (Auto) 0.9 Neut # (Auto) 6.4 Lymph # (Auto) 0.4 L [place] # (Auto) 0.3 Eos # (Auto) 0.1 Baso # (Auto) 0.1 Abs Immat Gran (auto) 0.03 Imm/Tot Granulo (auto) 0.4 Sodium 139 Potassium 4.2 Chloride 102 Carbon Dioxide 33.7 H Anion Gap 7.5 BUN 16.0 Creatinine 0.64 L Est GFR ( Amer) >60 Est GFR (Non-Af Amer) >60 BUN/Creatinine Ratio 25.0 Glucose 153 H Calcium 9.0 Total Bilirubin 0.2 AST 20 ALT 9 L Alkaline Phosphatase 77 Total Protein 6.2 L Albumin 3.3 L Globulin 2.9 Albumin/Globulin Ratio 1.1
--- NOTE | 2024-08-07 17:47 | PC.NURSE ---
Upon entering room to set up pts IV ATB at 1703, entry writer observed pts mouth hanging wide open. Upon checking for a pulse, no pulse was noted, skin observed pale and warm to the touch. Upon auscultation no heart tones noted, no chest rise or breathe sounds. [employer] Bul[employer] Operator called immediately to pts room to confirm and witness time of . verified at 1705, Dr. Ruggiero notified by [employer] Grade Bulldozer Operator at 1706, Record Filing Clerk then notified pts next of kin son Johnson Sherman at 1708, Face sheet printed, Rehab Director notified at 1712 with a returned call back time of 1725 and body was then released after all information requested was provided. [facility] contacted and notified at 1714 with a referral number of # [id number], Hospital HIPPA privacy form completed, Hospital release of body form completed to the best of writers ability and knowledge at this time. DNRCC form copied. Per family request home [employer] notified for body roll picker at [phone], [facility] location.
--- NOTE | 2024-08-07 18:05 | W.ACP ---
Advance Care Planning Advance Care Planning Discussion Advance care planning discussion participants: legally authorized Health Care Proxy Advance care planning discussion summary: Patient's son Johnson who has POA wanted to discuss goals of care with me. His younger brother was also at the time of discussion. I explained differences b/w full code, DNR, hospice. Answered their questions and concerns. Patient was made DNR CC as per son's request.
--- NOTE | 2024-08-08 10:40 | SWNOTE1 ---
MEHUL advised Juany at [facility] that pt has .
--- NOTE | 2024-08-19 13:12 | P.DS_ITS ---
DS: Providers Provider Date of admission: 08/04/24 16:21 Primary care physician: ELVIRA SCHULTZ Admitting clinician: Shaikh Bahman Attending physician on admission: Shaikh Bahman Consults: 08/04/24 Consult to Dietitian Routine Reason for consultation: Weight loss 08/04/24 16:31 Occupational Therapy Eval and Treat Routine Reason for consultation: Ambulatory dysfunction/weakness Physical Therapy Eval and Treat Routine Reason for consultation: Ambulatory dysfunction/weakness Attending physician on discharge: Shaikh Bahman Discharging clinician: Shaikh Bahman Anticipated date of discharge: 08/19/24 DS: Diagnosis Discharge Diagnosis (1) Sepsis: Qualifiers: Sepsis type: Escherichia coli Sepsis acute organ dysfunction status: with acute organ dysfunction Severe sepsis acute organ dysfunction type: encephalopathy Severe sepsis shock status: without septic shock Qualified Code(s): A41.51 - Sepsis due to Escherichia coli [E. coli]; R65.20 - Severe sepsis without septic shock; G93.41 - Metabolic encephalopathy (2) Urinary tract infection: Qualifiers: Encounter type: subsequent encounter Indwelling urinary catheter type: indwelling urethral catheter Urinary tract infection type: catheter-associated UTI Qualified Code(s): T83.511D - Infection and inflammatory reaction due to indwelling urethral catheter, subsequent encounter; N39.0 - Urinary tract infection, site not specified (3) Metabolic encephalopathy: (4) A-fib: Qualifiers: Atrial fibrillation type: paroxysmal Qualified Code(s): I48.0 - Paroxysmal atrial fibrillation (5) Hypothyroid: Qualifiers: Hypothyroidism type: unspecified Qualified Code(s): E03.9 - Hypothyroidism, unspecified (6) Liver transplant recipient: (7) Immunosuppressed status: DS: Summary Hospital Course Hospital Course: 74-year-old male was brought over to ED by his son for evaluation of confusion, generalized weakness. Patient recently was admitted to [facility] where he underwent ex lap for small bowel obstruction secondary to adhesions after which he was discharged to [facility] for rehab. Patient had been living with his son for about 2 weeks but after a few days, he started to get increasingly conf used, overall weak with hallucination. While in ER, patient was noted to be restless, confused and overall weak. His workup was consistent with sepsis secondary to urinary tract infection resulting in metabolic encephalopathy. Patient was admitted as inpatient for treatment of sepsis, UTI and metabolic encephalopathy. Patient's clinical status worsened during admission and he comfortably during hospital stay. He was made NDR CC after d/w his sons. Time Spent with Patient Time attestation: Total time spent providing and/or coordinating discharge services: Exam Constitutional Vital Signs, click to edit/add: Last Vital Signs Temp 97.9 F 08/07/24 15:28 Pulse 73 08/07/24 15:28 Resp 20 08/07/24 15:28 BP 140/74 08/07/24 15:28 Pulse Ox 90 L 08/07/24 15:28 O2 Del Method Nasal Cannula 08/07/24 15:28 O2 Flow Rate 3 08/07/24 15:28 Discharge Plan Discharge Disposition: Discharge Date/Time: 08/07/24 18:52 Date/Time: 08/07/24 17:05
== END 2024-08-07 18:52 | disposition expired | DRG 698 ==
LOC: ER 16:38 → MS 17:03
PROVIDERS: Physician Assistant; Admitting Provider Internal Medicine; Emergency Provider Emergency Medicine; PCP Family Medicine; Visit Provider Internal Medicine
DX: T83.511A Infection and inflammatory reaction due to indwelling urethral catheter, initial encounter (principal); A41.51 Sepsis due to Escherichia coli [E. coli]; G93.41 Metabolic encephalopathy; R65.20 Severe sepsis without septic shock; Z94.4 Liver transplant status; D84.9 Immunodeficiency, unspecified; F05 Delirium due to known physiological condition; N39.0 Urinary tract infection, site not specified; R53.1 Weakness; E03.9 Hypothyroidism, unspecified; Z85.05 Personal history of malignant neoplasm of liver; I48.91 Unspecified atrial fibrillation; Z95.0 Presence of cardiac pacemaker; Z90.49 Acquired absence of other specified parts of digestive tract; Z87.891 Personal history of nicotine dependence; Z79.899 Other long term (current) drug therapy; Z87.440 Personal history of urinary (tract) infections; Z79.01 Long term (current) use of anticoagulants; Z79.890 Hormone replacement therapy; Z66 Do not resuscitate
CPT/HCPCS: 36415; 51798; 70450; 71045; 80053; 81001; 83605; 83735; 84439; 84443; 84481; 84484; 85007; 85025; 85027; 85610; 87086; 87150; 87186; 93005; 94761; 96365; 96366; 96367; 97161; 97165; 97530; 99285; J0696; J1650; J3475